=== PATIENT | female | born 1945 | race Caucasian/White ===

== ENCOUNTER 2018-09-20 21:07 | Emergency (ER) | payer OTHER ==
--- NOTE | 2018-09-20 22:13 | PDOC ---
History of Present Illness <Bri Murdock - Last Filed: 09/20/18 22:44> - General History Source: Patient, Assisted Records Exam Limitations: No Limitations - History of Present Illness Initial Comments: 09/20/18 22:11 Pt is a 73yo F with PMH of ESRD (HD MWF), Afib (on Eliquis), DM, Hypotension BIBA from [facility] for hypertension (169/114 after dialysis). Per pt, she usually feels lightheaded and weak after dialysis. She states her blood pressure was checked and was found to be 169/114. Pt is endorsing nausea. She denies chest pain, sob, abdominal pain, n/v/d, fevers, chills, headache, numbness/tingling. Pt states she feels fine at this time. PMD: Rosemarie PMH: see hpi Meds: see med rec Allergies: nkda <Janneth Sorto - Last Filed: 09/21/18 05:49> - General Stated Complaint: LOW BLOOD PRESSURE Time Seen by Provider: 09/20/18 21:46 Past History <Bri Murdock - Last Filed: 09/20/18 22:44> <aJnneth Sorto - Last Filed: 09/21/18 05:49> - Past Medical History Allergies/Adverse Reactions: Allergies Allergy/AdvReac Type Severity Reaction Status Date / Time No Known Allergies Allergy Unverified 09/20/18 22:44 Home Medications: Ambulatory Orders Acetaminophen 650 mg PO Q6H PRN 09/20/18 Albuterol 2.5/Ipratropium 0.5 [Duoneb -] 1 amp IH Q4H PRN 09/20/18 Ammonium Lactate Lotion [Lac-Hydrin 12] 1 applic TP BID 09/20/18 Anusol Hc Suppository - 25 mg MD Q4H PRN 09/20/18 Apixaban [Eliquis] 1 tab PO BID 09/20/18 Calcitriol [Calcitriol -] 3 cap PO TID 09/20/18 Collagenase Clostridium Hist. [Santyl] 1 applic TP DAILY 09/20/18 Docusate Sodium [Colace -] 3 tab PO HS 09/20/18 Ergocalciferol [Vitamin D2] 1 tab PO WEEKLY 09/20/18 Lidocaine/Prilocaine Cream [Emla -] 1 applic TP QID PRN 09/20/18 Melatonin 1 mg PO HS 09/20/18 Midodrine HCl 10 mg PO Q8H PRN 09/20/18 Multivitamin [Multiple Vitamins] 1 tab PO DAILY 09/20/18 Nystatin Ointment [Mycostatin Ointment -] 1 applic TP BID 09/20/18 Pantoprazole Sodium 1 tab PO DAILY 09/20/18 Sertraline HCl [Zoloft -] 1 tab PO DAILY 09/20/18 Sevelamer HCl [Renagel] 2 tab PO TID 09/20/18 Silver Sulfadiazine [Silvadene] 1 applic TP BID 09/20/18 Review of Systems - Review of Systems Constitutional: No: Chills, Fever HEENTM: No: Symptoms Reported Respiratory: No: Cough, Shortness of Breath Cardiac (ROS): No: Chest Pain, Lightheadedness, Palpitations, Syncope ABD/GI: Yes: Nausea. No: Constipated, Poor Fluid Intake, Vomiting, Abdominal cramping : No: Symptoms Reported Musculoskeletal: No: Symptoms Reported Integumentary: No: Symptoms Reported Neurological: No: Headache, Numbness, Tingling, Tremors, Weakness <Janneth Sorto - Last Filed: 09/21/18 05:49> *Physical Exam - Vital Signs Last Vital Signs Temp Pulse Resp BP Pulse Ox 98.7 F 65 18 81/47 L 98 09/20/18 21:07 09/20/18 21:07 09/20/18 21:07 09/20/18 21:07 09/20/18 21:07 <Bri Murdock - Last Filed: 09/20/18 22:44> - Physical Exam General Appearance: Yes: Nourished, Appropriately Dressed. No: Apparent Distress HEENT: positive: EOMI, JACQUELINE, Normal ENT Inspection Neck: positive: Trachea midline, Supple. negative: Lymphadenopathy (R), Lymphadenopathy (L) Respiratory/Chest: positive: Lungs Clear, Normal Breath Sounds. negative: Crackles, Rales, Rhonchi, Stridor, Wheezing Cardiovascular: positive: Regular Rhythm, Regular Rate, S1, S2. negative: Edema , JVD, Murmur Vascular Pulses: Carotid (R): 2+, Carotid (L): 2+, Dorsalis-Pedis (R): 2+, Doralis-Pedis (L): 2+ Gastrointestinal/Abdominal: positive: Normal Bowel Sounds, Soft. negative: Tender Musculoskeletal: negative: CVA Tenderness Extremity: positive: Normal Capillary Refill, Pelvis Stable, Other (fistula in R hip). negative: Swelling, Calf Tenderness Integumentary: positive: Normal Color, Dry, Warm, Other (R hand erythema without warmth or induration) Neurologic: positive: steam drier tender II-XII NML intact, Fully Oriented, Alert, Normal Mood/ Affect, Normal Response, Motor Strength 5/5 <Janneth Sorto - Last Filed: 09/21/18 05:49> Medical Decision Making - Medical Decision Making 09/20/18 23:15 Pt is a 73yo F with PMH of ESRD (HD MWF), Afib (on Eliquis), DM, Hypotension BIBA from [facility] for hypertension. Per pt, she usually feels lightheaded and weak after dialysis. She states her blood pressure was checked and was found to be 169/114. Pt is endorsing nausea. She denies chest pain, sob, abdominal pain, n/v/d, fevers, chills, headache, numbness/tingling. Pt states she feels fine at this time. Vitals: hypotension (baseline per pt), HR 65 PE: R hand erythema (chronic), R hip fistula L hand tremor, lungs cta. normal heart sounds Pt sent here for hypertension (bp 169/114 after dialysis) Pt normally 90s/60s. Pt refusing IV/blood work Pt is at baseline with bp, HR wnl (not tachycardic or trying to compensate). Does not need labs at this time. Will give midodrine and dc back to [facility]. Vitals stable. dc back to [facility] <Janneth Sorto - Last Filed: 09/21/18 05:49> *DC/Admit/Observation/Transfer <Bri Murdock - Last Filed: 09/20/18 22:44> <Janneth Sorto - Last Filed: 09/21/18 05:49> Diagnosis at time of Disposition: Hypotension Qualifiers: Hypotension type: unspecified hypotension type Qualified Code(s): I95.9 - Hypotension, unspecified - Discharge Dispostion Disposition: DETENTION FACILITY Condition at time of disposition: Good - Referrals Referrals: Johnny Houston [Primary Care Provider] - - Patient Instructions Printed Discharge Instructions: DI for Hypotension Additional Instructions: You were seen in the emergency room because your blood pressure was found to be high at the retirement. Your blood pressure is low here but it seems to be at your baseline. Please take your medications as directed. Come back to the emergency room if you pass out, feel lightheaded, have chest pain, have a hard time breathing or if any new concerning symptom develops. Thank you
--- NOTE | 2018-09-20 22:41 | PDOC ---
Attending Attestation - HPI HPI: 09/20/18 22:46 The patient is a 73 year old female with a past medical history of ESRD (MWF), diabetes, and afib (on coumadin) here today from [facility] for evaluation of hypertension. The patient reports that she usually feels weak and lightheaded after dialysis. She reports having her blood pressure checked and states that she was sent in because it was high (169/114). She reports feeling fine now except for some slight nausea. Patient also reports that she was hospitalized last week for hypotension. Patient denies headache, lightheadedness. Denies fever, chills. Denies chest pain, shortness of breath. Denies nausea, vomiting, diarrhea, abdominal pain. Allergies: NKA PCP: Johnny Houston <Constantin Wallace - Last Filed: 09/20/18 22:52> - Resident Resident Name: Janneth Sorto - ED Attending Attestation I have performed the following: I have examined & evaluated the patient, The case was reviewed & discussed with the resident, I agree w/resident's findings & plan, Exceptions are as noted - Physicial Exam PE: GENERAL: Awake, alert, and fully oriented, in no acute distress HEAD: No signs of trauma EYES: PERRLA, EOMI, sclera anicteric, conjunctiva clear ENT: Auricles normal inspection, hearing grossly normal, nares patent, oropharynx clear without exudates. Moist mucosa NECK: Normal ROM, supple, no lymphadenopathy, JVD, or masses LUNGS: Breath sounds equal, clear to auscultation bilaterally. No wheezes, and no crackles HEART: Regular rate and rhythm, normal S1 and S2, no murmurs, rubs or gallops ABDOMEN: Soft, nontender, normoactive bowel sounds. No guarding, no rebound. No masses EXTREMITIES: +Erythema to the R hand (chronic per patient). Remainder of extremities with normal range of motion, no edema. No clubbing or cyanosis. No cords, erythema, or tenderness NEUROLOGICAL: Cranial nerves II through XII grossly intact. Normal speech. Motor and sensation intact SKIN: Warm, Dry, normal turgor, no rashes or lesions noted. - Medical Decision Making Pt with history of hypotension, on midodrine at [facility]. She was sent to ED for high BP but is now low. She is asymptomatic and wishes to go home. We will give her evening dose of midodrine and DC. <Bri Murdock - Last Filed: 09/21/18 01:07> Attestations - Attestations 09/20/18 22:46 Documentation prepared by SARAH Yates, acting as biomedical engineering technician for Bri Murdock MD. <Constantin Wallace - Last Filed: 09/20/18 22:52>
[2018-09-20 22:43] VITALS: BMI 31.6
[2018-09-21] MEDS ORDERED: MIDODRINE HCL 5 MG TABLET PO ONE ×2 (00:45→23:57)
[2018-09-21 00:49] VITALS: TEMP 98
[2018-09-21 02:44] VITALS: BP 76/40; PULSE 69
--- NOTE | 2018-09-21 14:33 | EKG ---
Test Reason : Blood Pressure : / mmHG Vent. Rate : 060 BPM Atrial Rate : 067 BPM P-R Int : 000 ms QRS Dur : 134 ms QT Int : 464 ms P-R-T Axes : 000 164 -12 degrees QTc Int : 464 ms SUSPECT ARM LEAD REVERSAL, INTERPRETATION ASSUMES NO REVERSAL ATRIAL FIBRILLATION NON-SPECIFIC INTRA-VENTRICULAR CONDUCTION BLOCK LATERAL INFARCT , AGE UNDETERMINED INFERIOR INFARCT , AGE UNDETERMINED ABNORMAL ECG NO PREVIOUS ECGS AVAILABLE Confirmed by MD Macrina, Shankar ([id number]) on 09/21/2018 2:32:42 PM Referred By: Confirmed By:Shankar Schrader MD
== END 2018-09-21 02:44 ==
LOC: JER 21:07
DX: I95.9 Hypotension, unspecified (principal); I12.0 Hypertensive chronic kidney disease with stage 5 chronic kidney disease or end stage renal disease; E11.22 Type 2 diabetes mellitus with diabetic chronic kidney disease; N18.6 End stage renal disease; N17.8 Other acute kidney failure; Z99.2 Dependence on renal dialysis; I48.91 Unspecified atrial fibrillation; Z79.01 Long term (current) use of anticoagulants
CPT/HCPCS: 93005; 93010; 99283-25

== ENCOUNTER 2018-12-07 16:40 | Inpatient (IN) | payer OTHER | END 2019-01-05 19:14 | LOC: J4W 12-10 19:44 → JER 16:40 → J5S 12-12 19:46 → J4W 01-03 21:29 → JICU 12-08 13:22 → JERBED 21:28 ==

== ENCOUNTER 2019-01-19 11:26 | Inpatient (IN) | payer OTHER | END 2019-01-25 17:52 | LOC: JER 11:26 → JERBED 12:22 → J5S 18:09 ==

== ENCOUNTER 2019-01-26 20:04 | Inpatient (IN) | payer OTHER ==
[2019-01-26] MEDS ORDERED: NOREPINEPHRINE BITARTRATE 4 MG/4 ML ML IV ONE ×2 (20:27→20:33)
[2019-01-26] MEDS ORDERED: SODIUM CHLORIDE 0.9% 500 ML INFUS.BAG IV ONE (20:29)
[2019-01-26] MEDS: NOREPINEPHRINE BITARTRATE 4,000 MCG in DEXTROSE 5%-WATER - 496 ML IV SCH (21:30)
--- NOTE | 2019-01-26 21:36 | PDOC ---
History of Present Illness - General Chief Complaint: Altered Mental Status Stated Complaint: UNRESPONSIVE Time Seen by Provider: 01/26/19 20:32 - History of Present Illness Initial Comments: The pt is a 73F w/ a history of ESRD on iHD last today, a-fib, on digoxin, and hypothyroidism who presents from iHD. The pt was found to be unresponsive 5 min s/p iHD today. EMS was called, pt was intubated in field and started on norepinephrine. She was reportedly never without a pulse. Pt presented intubated and paralyzed w/o family present 01/26/19 22:20 Past History - Past Medical History Allergies/Adverse Reactions: Allergies Allergy/AdvReac Type Severity Reaction Status Date / Time No Known Allergies Allergy Unverified 01/19/19 11:43 Home Medications: Ambulatory Orders Acetaminophen 650 mg PO Q6H PRN 09/20/18 Ammonium Lactate Lotion [Lac-Hydrin 12] 1 applic TP BID 09/20/18 Anusol Hc Suppository - 25 mg [place] Q4H PRN 09/20/18 Apixaban [Eliquis] 1 tab PO BID 09/20/18 Calcitriol [Calcitriol -] 3 cap PO TID 09/20/18 Docusate Sodium [Colace -] 3 tab PO HS 09/20/18 Lidocaine/Prilocaine Cream [Lidocaine-Prilocaine Cream -] 1 applic TP QID PRN Melatonin 1 mg PO HS 09/20/18 Midodrine HCl 10 mg PO Q8H PRN 09/20/18 Nystatin Ointment [Mycostatin Ointment -] 1 applic TP BID 09/20/18 Sertraline HCl [Zoloft -] 1 tab PO DAILY 09/20/18 Silver Sulfadiazine [Silvadene] 1 applic TP BID 09/20/18 Digoxin 62.5 mcg PO DAILY 12/08/18 Levothyroxine [Synthroid -] 25 mcg PO DAILY 12/08/18 Vitamin B Comp W-C [Nephro-Evert -] 0.8 mg PO DAILY 12/08/18 Anemia: Yes Asthma: No Cancer: Yes (endometrial ca, s/p hysterectomy) Cardiac Disorders: Yes (A-fib) CVA: No COPD: No CHF: Yes DVT: Yes Dementia: No Diabetes: Yes GI Disorders: No (cdiff) Disorders: Yes (ESRD, HD, Rfemoral tessio) HTN: No Hypercholesterolemia: No Liver Disease: No Seizures: No Thyroid Disease: Yes (hypothyroidism) - Surgical History Abdominal Surgery: No Appendectomy: No Cardiac Surgery: No Cholecystectomy: No Lung Surgery: No Neurologic Surgery: No Orthopedic Surgery: Yes (spinal surgery december 2017,feb 2017 Lt arm fracture with tendon transfer) - Suicide/Smoking/Psychosocial Hx Smoking History: Unknown if ever smoked Have you smoked in the past 12 months: No Hx Alcohol Use: No Drug/Substance Use Hx: No Substance Use Type: None Hx Substance Use Treatment: No Review of Systems - Review of Systems Able to Perform ROS?: No (2/2 medical condition) *Physical Exam - Vital Signs Last Vital Signs Temp Pulse Resp BP Pulse Ox 99.1 F 120 H 12 116/101 H 90 L 01/26/19 20:15 01/26/19 20:15 01/26/19 20:15 01/26/19 20:15 01/26/19 20:15 - Physical Exam Comments: GENERAL: Intubated/sedated/paralyzed HEAD: No signs of trauma, normocephalic, atraumatic EYES: sclera anicteric, conjunctiva clear ENT: Moist mucosa, ETT in place LUNGS: b/l breath sounds present, with decreased breath sounds in b/l bases HEART: Irregularly irregular, S1 and S2 appreciated, no murmur appreciated ABDOMEN: Protuberant, soft, large ventral hernia, non-distended EXTREMITIES: No open wounds; Mild RLE erythma w/o warmth NEUROLOGICAL: Pt paralyzed on arrival w/ Sourav SKIN: Diaphoretic, cool 01/26/19 23:04 ED Treatment Course - ADDITIONAL ORDERS Additional order review: Laboratory Results 01/26/19 20:11 POC Glucometer 74 01/26/19 20:11 POC Glucometer 74 Medical Decision Making - Medical Decision Making The pt is a 73F w/ a history of ESRD on iHD, a-fib, on digoxin, and hypothyroidism who presents by EMS unresponsive from iHD. Pt was noted to be hypoxic, unresponsive, and bradycardic Pt was intubated in field and started on NE On arrival pt was placed on vent, ETT confirmed via end-tidal CO2 and CXR Labs drawn and sent Left femoral CVC placed NE at 5mcg started, later titrated down to 2.5mcg Versed gtt ordered for sedation CT head pending Pt w/ subsequent improvement in BP on NE HR improved from initial 130s to 100s after 2L NS and NE Labs pending, lab called multiple times over 2 hours w/o processing of labs New labs sent at 2300 Case discussed w/ ICU who states they will evaluate the pt after labs result Pt signed out to Dr. Sorto 01/26/19 22:59 *DC/Admit/Observation/Transfer Diagnosis at time of Disposition: ESRD on hemodialysis Hypotension Qualifiers: Hypotension type: unspecified hypotension type Qualified Code(s): I95.9 - Hypotension, unspecified Acute respiratory failure Qualifiers: Respiratory failure complication: hypoxia Qualified Code(s): J96.01 - Acute respiratory failure with hypoxia - Discharge Dispostion Condition at time of disposition: Critical Decision to Admit order: Yes - Referrals - Patient Instructions - Post Discharge Activity
--- NOTE | 2019-01-26 22:40 | PDOC ---
Documentation entered by Rafaela Lopez SCRIBE, acting as scribe for Roxy Baig DO. Roxy Baig DO: This documentation has been prepared by the John london Mackenzie, SCRIBE, under my direction and personally reviewed by me in its entirety. I confirm that the documentation accurately reflects all work, treatment, procedures, and medical decision making performed by me. Attending Attestation - Resident Resident Name: Wolfgang Lam - ED Attending Attestation I have performed the following: I have examined & evaluated the patient, The case was reviewed & discussed with the resident, I agree w/resident's findings & plan - HPI HPI: Patient is a 73 year old female recently discharged from [facility] yesterday who presents to the ED BIBA completely unresponsive immediately after receiving hemodialysis. Patient was unresponsive in the field, EMS intubated the patient as well as administered etomidate and rocuronium however the patient presented no change in clinical condition. 01/26/19 20:10 - Physicial Exam PE: Agree with resident exam. 01/26/19 20:15 - Critical Care Time Total Critical Care Time: 90 Critical Care Statement: The care of this patient involved high complexity decision making to prevent further life threatening deterioration of the patient 's condition and/or to evaluate & treat vital organ system(s) failure or risk of failure. - Medical Decision Making 01/26/19 22:36 73-year-old female intubated in the field for unresponsiveness after hemodialysis ET tube placement confirmed in the emergency department with cxr Left femoral central venous access established due to decreased blood pressure despite pressors ICU admit for further management
[2019-01-26] MEDS: MIDAZOLAM 100 MG in SODIUM CHLORIDE 100 ML IVPB SCH (22:45)
[2019-01-26] MEDS ORDERED: MIDAZOLAM IN 0.9 % SOD.CHLORID 1 MG/1 ML PLAST..BAG ONE (23:11)
[2019-01-26 23:14] LABS: ARTERIAL BLD GAS O2 SATURATION 98.8 % (95-98); ARTERIAL BLOOD GAS PCO2 52.9 mmHg (35-45); ARTERIAL BLOOD GAS PO2 142 mmHg (80-105); ARTERIAL BLOOD GAS pH 7.21 (7.35-7.45); CARBOXYHEMOGLOBIN 1.7 % (0-2)
[2019-01-26 23:17] LABS: ALLENS TEST POSITIVE
[2019-01-26 23:20] LABS: INR 1.59 (0.83-1.09); PROTHROMBIN TIME (PATIENT) 18.9 SEC (9.7-13.0)
[2019-01-26 23:23] LABS: ACTIVATED PTT 52.8 SECONDS (25.2-36.5)
[2019-01-26 23:31] LABS: ALBUMIN 3.3 g/dl (3.4-5.0); BILIRUBIN,TOTAL 0.6 mg/dL (0.2-1); BLOOD UREA NITROGEN 8.6 mg/dL (7-18); CALCIUM 8.6 mg/dL (8.5-10.1); CREATININE 1.4 mg/dL (0.55-1.3); TOT PROT 6.8 g/dl (6.4-8.2)
[2019-01-26 23:35] LABS: POTASSIUM 2.9 mmol/L (3.5-5.1)
[2019-01-26 23:37] LABS: ARTERIAL BLOOD GAS BASE EXCESS -6.1 meq/l (-2-2); ARTERIAL BLOOD GAS PCO2 48.8 mmHg (35-45); ARTERIAL BLOOD GAS PO2 284 mmHg (80-105); ARTERIAL BLOOD GAS pH 7.25 (7.35-7.45); CARBOXYHEMOGLOBIN 1.5 % (0-2)
[2019-01-26 23:38] LABS: ALLENS TEST POSITIVE
[2019-01-26 23:41] LABS: MAGNESIUM 1.9 mg/dL (1.8-2.4)
--- NOTE | 2019-01-27 00:17 | PDOC ---
*Physical Exam - Vital Signs Last Vital Signs Temp Pulse Resp BP Pulse Ox 99.1 F 103 H 12 114/80 90 L 01/26/19 20:15 01/26/19 21:30 01/26/19 23:30 01/26/19 21:30 01/26/19 20:15 ED Treatment Course - LABORATORY CBC & Chemistry Diagram: 01/26/19 23:00 01/26/19 23:00 - ADDITIONAL ORDERS Additional order review: Laboratory Results 01/26/19 01/26/19 01/26/19 23:30 23:00 23:00 PT with INR Cancelled INR Cancelled PTT (Actin FS) Anticoagulation Therapy No Result Required. No Result Required. Puncture Site Left brachial Left femoral ABG pH 7.25 L 7.21 L ABG pCO2 at Pt Temp 48.8 H 52.9 H ABG pO2 at Pt Temp 284 H 142 H ABG HCO3 20.6 L 20.5 L ABG O2 Sat (Measured) 100.0 H 98.8 H ABG O2 Content 15.4 14.3 L ABG Base Excess -6.1 L -7.0 L Pedro Test Positive Positive Carboxyhemoglobin 1.5 1.7 Methemoglobin 0.2 0.3 O2 Delivery Device No Result Required. No Result Required. Oxygen Flow Rate Yes 95 Vent Mode No Result Required. No Result Required. Vent Rate No Result Required. No Result Required. Mechanical Rate No Result Required. No Result Required. Pressure Support Vent No Result Required. No Result Required. Sodium Potassium Chloride Carbon Dioxide Anion Gap BUN Creatinine Est GFR (CKD-EPI)AfAm Est GFR (CKD-EPI)NonAf POC Glucometer Random Glucose Lactic Acid Calcium Magnesium Total Bilirubin AST ALT Alkaline Phosphatase Troponin I Total Protein Albumin Digoxin 01/26/19 01/26/19 01/26/19 23:00 23:00 23:00 PT with INR 18.90 H INR 1.59 H PTT (Actin FS) 52.8 H Anticoagulation Therapy Puncture Site ABG pH ABG pCO2 at Pt Temp ABG pO2 at Pt Temp ABG HCO3 ABG O2 Sat (Measured) ABG O2 Content ABG Base Excess Pedro Test Carboxyhemoglobin Methemoglobin O2 Delivery Device Oxygen Flow Rate Vent Mode Vent Rate Mechanical Rate Pressure Support Vent Sodium 139 Potassium 2.9 L* Chloride 103 Carbon Dioxide 25 Anion Gap 11 BUN 8.6 Creatinine 1.4 H Est GFR (CKD-EPI)AfAm 43.70 Est GFR (CKD-EPI)NonAf 37.71 POC Glucometer Random Glucose 102 Lactic Acid Calcium 8.6 Magnesium 1.9 Total Bilirubin 0.6 AST 46 H ALT 28 Alkaline Phosphatase 215 H Troponin I 0.18 H Total Protein 6.8 Albumin 3.3 L Digoxin 0.10 L 01/26/19 01/26/19 20:55 20:11 PT with INR INR PTT (Actin FS) Anticoagulation Therapy Puncture Site ABG pH ABG pCO2 at Pt Temp ABG pO2 at Pt Temp ABG HCO3 ABG O2 Sat (Measured) ABG O2 Content ABG Base Excess Pedro Test Carboxyhemoglobin Methemoglobin O2 Delivery Device Oxygen Flow Rate Vent Mode Vent Rate Mechanical Rate Pressure Support Vent Sodium Potassium Chloride Carbon Dioxide Anion Gap BUN Creatinine Est GFR (CKD-EPI)AfAm Est GFR (CKD-EPI)NonAf POC Glucometer 74 Random Glucose Lactic Acid 2.6 H* Calcium Magnesium Total Bilirubin AST ALT Alkaline Phosphatase Troponin I Total Protein Albumin Digoxin 01/26/19 20:11 POC Glucometer 74 - Medications Given in the ED: ED Medications Discontinued Medications Generic Name Dose Route Start Last Admin Trade Name Freq PRN Reason Stop Dose Admin Sodium Chloride 1,000 ml 01/26/19 20:29 01/26/19 21:29 Normal Saline - IV 01/26/19 20:30 1,000 ml ONCE ONE Administration Medical Decision Making - Medical Decision Making 01/27/19 07:30 signed out by day team. The pt is a 73F w/ a history of ESRD on iHD last today, a-fib, on digoxin, and hypothyroidism who presents from iHD. The pt was found to be unresponsive 5 min s/p iHD today. EMS was called, pt was intubated in field and started on norepinephrine. She was reportedly never without a pulse. pending labs and admission to ICU. ICU consulted and waiting for labs. labs were "lost". repeat samples had to be sent. no white count. K 2.9 Starting KCl drip. Cr baseline. admitted to ICU *DC/Admit/Observation/Transfer Diagnosis at time of Disposition: ESRD on hemodialysis Hypotension Qualifiers: Hypotension type: unspecified hypotension type Qualified Code(s): I95.9 - Hypotension, unspecified Acute respiratory failure Qualifiers: Respiratory failure complication: hypoxia Qualified Code(s): J96.01 - Acute respiratory failure with hypoxia - Discharge Dispostion Condition at time of disposition: Critical - Referrals - Patient Instructions - Post Discharge Activity
--- NOTE | 2019-01-27 00:24 | CONSULT ---
Consultation: REQUESTING PROVIDER: Dr. Lam CONSULT REQUEST: We have been asked to medically evaluate this patient for acute respiratory failure and hypotension. HISTORY OF PRESENT ILLNESS: Argelia Patel is a 73 year old female with a PMHx of ESRD, Orthostatic Hypotension, CHF, DM, hypothyroid, COPD, Afib (on Xarelto), DVTs, Pulmonary Edema and multiple admissions for PNA (including intubation) who was recently admitted for respiratory failure and discharged yesterday, presented to dialysis today in her baseline state of health, was alert and oriented, and received a full round of dialysis when she became unresponsive was noted to be bradycardic in the 50s and saturating in the 40s. The patient was intubated by EMS given etomidate and rocuronium and started on levophed in the field. It is unknown how much fluid was removed during dialysis or the K bath that was used. The patient was brought to the ED and had a femoral line placed to continue Levophed and was sedated with Versed. Patient unable to provide history. ED Course notable for: 1) Continued management of intubation and sedation 2) K 2.9, lactic acid 2.6, trops 0.18, BUN/CRE 8.6/1.4 3) ABG pH 7.21, CO2 52.9, O2 142 REVIEW OF SYSTEMS: Unable to provide history PHYSICAL EXAMINATION Vital Signs - 24 hr 01/26/19 01/26/19 01/26/19 20:05 20:15 21:30 Temperature 99.1 F Pulse Rate 120 H 103 H Respiratory 12 12 Rate Blood Pressure 116/101 H 114/80 O2 Sat by Pulse 90 L Oximetry (%) 01/26/19 23:30 Temperature Pulse Rate Respiratory 12 Rate Blood Pressure O2 Sat by Pulse Oximetry (%) GENERAL: Intubated and sedated HEAD: Normal with no signs of trauma. EYES: Pupils equal, round and sluggish reaction to light, sclera anicteric, conjunctiva clear. EARS, NOSE, THROAT: Orotracheal tube in place, no secretion present NECK: No JVD or masses noted LUNGS: Breath sounds equal, with mechanical breath sounds heard and coarse sounds throughout. HEART: Irregular rhythm, normal rate, S1 and S2 without murmur, rub. ABDOMEN: Soft, moderately distended, hypoactive bowel sounds, obese abdomen with unsymmetrical appearance UPPER EXTREMITIES: 1+ pulses, cool. No cyanosis. No clubbing. 3+ peripheral edema on the R, 1+ on the L. LOWER EXTREMITIES: 1+ pulses, warm, well-perfused. No calf tenderness. Trace peripheral edema. NEUROLOGICAL: Unable to assess SKIN: Cool, dry, diffuse ecchymoses noted Laboratory Results - last 24 hr 01/26/19 01/26/19 01/26/19 20:11 20:55 23:00 PT with INR INR PTT (Actin FS) Anticoagulation Therapy Puncture Site ABG pH ABG pCO2 at Pt Temp ABG pO2 at Pt Temp ABG HCO3 ABG O2 Sat (Measured) ABG O2 Content ABG Base Excess Pedro Test Carboxyhemoglobin Methemoglobin O2 Delivery Device Oxygen Flow Rate Vent Mode Vent Rate Mechanical Rate Pressure Support Vent Sodium Potassium Chloride Carbon Dioxide Anion Gap BUN Creatinine Est GFR (CKD-EPI)AfAm Est GFR (CKD-EPI)NonAf POC Glucometer 74 Random Glucose Lactic Acid 2.6 H* Calcium Magnesium Total Bilirubin AST ALT Alkaline Phosphatase Troponin I 0.18 H Total Protein Albumin Digoxin 0.10 L 01/26/19 01/26/19 01/26/19 23:00 23:00 23:00 PT with INR 18.90 H Cancelled INR 1.59 H Cancelled PTT (Actin FS) 52.8 H Anticoagulation Therapy Puncture Site ABG pH ABG pCO2 at Pt Temp ABG pO2 at Pt Temp ABG HCO3 ABG O2 Sat (Measured) ABG O2 Content ABG Base Excess Pedro Test Carboxyhemoglobin Methemoglobin O2 Delivery Device Oxygen Flow Rate Vent Mode Vent Rate Mechanical Rate Pressure Support Vent Sodium 139 Potassium 2.9 L* Chloride 103 Carbon Dioxide 25 Anion Gap 11 BUN 8.6 Creatinine 1.4 H Est GFR (CKD-EPI)AfAm 43.70 Est GFR (CKD-EPI)NonAf 37.71 POC Glucometer Random Glucose 102 Lactic Acid Calcium 8.6 Magnesium 1.9 Total Bilirubin 0.6 AST 46 H ALT 28 Alkaline Phosphatase 215 H Troponin I Total Protein 6.8 Albumin 3.3 L Digoxin 01/26/19 01/26/19 23:00 23:30 PT with INR INR PTT (Actin FS) Anticoagulation Therapy No Result Required. No Result Required. Puncture Site Left femoral Left brachial ABG pH 7.21 L 7.25 L ABG pCO2 at Pt Temp 52.9 H 48.8 H ABG pO2 at Pt Temp 142 H 284 H ABG HCO3 20.5 L 20.6 L ABG O2 Sat (Measured) 98.8 H 100.0 H ABG O2 Content 14.3 L 15.4 ABG Base Excess -7.0 L -6.1 L Pedro Test Positive Positive Carboxyhemoglobin 1.7 1.5 Methemoglobin 0.3 0.2 O2 Delivery Device No Result Required. No Result Required. Oxygen Flow Rate 95 Yes Vent Mode No Result Required. No Result Required. Vent Rate No Result Required. No Result Required. Mechanical Rate No Result Required. No Result Required. Pressure Support Vent No Result Required. No Result Required. Sodium Potassium Chloride Carbon Dioxide Anion Gap BUN Creatinine Est GFR (CKD-EPI)AfAm Est GFR (CKD-EPI)NonAf POC Glucometer Random Glucose Lactic Acid Calcium Magnesium Total Bilirubin AST ALT Alkaline Phosphatase Troponin I Total Protein Albumin Digoxin Active Medications Generic Name Dose Route Start Last Admin Trade Name Freq PRN Reason Stop Dose Admin Norepinephrine Bitartrate 4, 500 mls @ 37.5 mls/hr 01/26/19 20:30 01/26/19 21 :30 000 mcg/ Dextrose IV 5 mcg/min TITR NAHEED 37.5 mls/hr Administration Protocol 5 MCG/MIN Midazolam HCl 100 mg/ Sodium 100 mls @ 1 mls/hr 01/26/19 21:45 01/26/19 22:45 Chloride IVPB 1 mg/hr TITR NAHEED 1 mls/hr Administration Protocol 1 MG/HR Potassium Chloride 10 meq in 100 mls @ 100 mls/hr 01/26/19 23:45 Potassium Chloride 10 Meq Premix Ivpb - IVPB 01/27/19 02:44 Q60M [facility] ASSESSMENT/PLAN: Argelia Patel is a 73 year old female with a PMHx of ESRD, Orthostatic Hypotension, CHF, DM, hypothyroid, COPD, Afib (on Xarelto), DVTs, Pulmonary Edema and multiple admissions for PNA (including intubation) admitted to the ICU for unresponsiveness secondary to acute respiratory failure likely from hypercapneia and hypotension from fluid removal during dialysis. Acute Hypercapneic Respiratory Failure Hypotension ESRD CHF DM Hypothyroidism Atrial fibrillation NEUROLOGIC - intubated and sedated - on Versed - continue sedation while patient intubated and decrease when weaning trials begin - head CT with no acute intracranial pathology, possible mastoiditis and sinusitis CARDIOLOGY - received 2 L of NS in the ED - on Levophed, titrate down as tolerated - EKG showing afib with RVR with occasional PVCs, poor study - repeat EKG showing no acute changes from EKG done on 01/19/19, low voltage study , afib - troponins elevated at 0.18 trended up to 0.89, likely demand in setting of hypovolemia, will continue to trend - previous echo 12/08/18 showing normal EF, moderate to severe right ventricle dilation, increased right ventricular systolic pressure - monitor I+Os - digoxin level 0.10 - Dr. Wilson consulted, recs appreciated, case discussed and likely troponemia from demand, no start of AC, trend troponins, place NG tube to restart Xarelto for afib RESPIRATORY - intubated - vent settings 450, rate 16, O2 70, PEEP 5, continue to titrate down on O2 as tolerated by sats - original ABG showing pH 7.21, CO2 52.9, O2 142, respiratory acidosis and concurrent non anion gap metabolic acidosis in the setting of hypercapneia and renal failure - repeat ABG showing continuation of hypercapneia and acidosis, vent settings adjusted to increase rate and decrease CO2 - CXR showing congestion in L lung, improved from previous admission, no acute infiltrates RENAL - Dr. Molina consulted - unknown amount of fluid removed during dialysis - hypokalemia, will receive 3 KCl replacements in setting of ESRD, uncertain K bath during dialysis - BUN/CRE 8.6/1.4, much improved from previous admission, questionable overcorrection of baseline with excessive fluid removal during dialysis - conservative fluid replacement in the setting of ESRD GASTROINTESTINAL - no acute issues - place NG tube to continue PO medications GENITOURINARY - zhang in INFECTIOUS DISEASE - no WBC, afebrile - cannot exclude lung source or wound source - hx of cdiff, cautious approach to continuing antibiotics - blood cxs pending - UA and Ucx - 1gm vanco - zosyn 2.25gm - ID Consult ENDOCRINE - continue home Synthroid - BGM q6h - ISS HEMATOLOGY - no acute anemia, continue to monitor H/H - thrombocytopenia, continue to monitor F/E/N - no standing fluids, boluses as necessary with conservative fluid resuscitation in setting of ESRD - continue to monitor electrolytes and replete as necessary, hypokalemia noted and repleting - NPO while intubated LINES - L femoral central line placed 01/26 - R femoral Tesio catheter PROPHYLAXIS - home Xarelto CODE - full code DISPO - continue to monitor in ICU Thank you for this consultative opportunity. ANITA ORLANDO DO - PGY-1 INTERNAL MEDICINE Visit type - Emergency Visit Emergency Visit: Yes ED Registration Date: 01/26/19 Care time: The patient presented to the Emergency Department on the above date and was hospitalized for further evaluation of their emergent condition. - New Patient This patient is new to me today: Yes Date on this admission: 01/27/19 - Critical Care Critical Care patient: Yes Total Critical Care Time (in minutes): 35 Critical Care Statement: The care of this patient involved high complexity decision making to prevent further life threatening deterioration of the patient 's condition and/or to evaluate & treat vital organ system(s) failure or risk of failure.
[2019-01-27 00:35] LABS: BASO % 0.4 % (0-2.0); EOS % 0.5 % (0-4.5); HEMATOCRIT 37.4 % (32.4-45.2); HEMOGLOBIN 11.3 GM/dL (10.7-15.3); LYMPH % 14.6 % (8-40); MCH 30.4 pg (25.7-33.7); MCHC 30.1 g/dl (32.0-36.0); MEAN CELL VOLUME 101.1 fl (80-96); MEAN PLT VOLUME 9.2 fl (7.5-11.1); MONO % 5.7 % (3.8-10.2); NEUT % 78.8 % (42.8-82.8); PLATELET COUNT 87 K/MM3 (134-434); RDW 19.6 % (11.6-15.6); WHITE BLOOD COUNT 7.4 K/mm3 (4.0-10.0)
[2019-01-27] MEDS ORDERED: SODIUM CHLORIDE 1,000 ML IV STA (00:41)
[2019-01-27] MEDS ORDERED: ALBUTEROL SO4 0.083% IH SOL 2.5 MG/3 ML VIAL.NEB. NEB PRN (01:54)
[2019-01-27] MEDS ORDERED: LIDOCAINE 2.5%/PRILOCAINE 2.5% (5 Gram/TUBE) TP PRN (01:55)
[2019-01-27] MEDS ORDERED: ONDANSETRON 4 MG TABLET PO PRN (01:57)
[2019-01-27] MEDS: KCL 10 MEQ IVPB 10 MEQ/100 ML INFUS.BAG IVPB SCH ×3 (02:00→04:43)
[2019-01-27] MEDS ORDERED: KCL 10 MEQ IVPB 10 MEQ/100 ML INFUS.BAG IVPB ONE (02:09)
[2019-01-27] MEDS ORDERED: INSULIN SLIDING SCALE (NOVOLOG) 1 VIAL SQ SCH (02:30)
[2019-01-27] MEDS ORDERED: VANCOMYCIN 1 GM in D5W (PRE-DOCKED) 1,000 MG/250 ML IVPB ONE ×2 (02:30→04:00)
[2019-01-27 03:27] LABS: ALLENS TEST POSITIVE
[2019-01-27 03:33] LABS: ARTERIAL BLD GAS O2 SATURATION 99.8 % (95-98); ARTERIAL BLOOD GAS BASE EXCESS -6.4 meq/l (-2-2); ARTERIAL BLOOD GAS PCO2 51.9 mmHg (35-45); ARTERIAL BLOOD GAS PO2 261 mmHg (80-105); ARTERIAL BLOOD GAS pH 7.23 (7.35-7.45)
[2019-01-27] MEDS ORDERED: CALCITRIOL 0.25 MCG CAPSULE (FP) PO SCH (06:00)
[2019-01-27] MEDS: LEVOTHYROXINE NA 50 MCG TABLET (FP) PO SCH ×2 (06:23→14:07)
[2019-01-27 07:01] LABS: ALLENS TEST POSITIVE
--- NOTE | 2019-01-27 07:06 | PN ---
Physical Exam: SUBJECTIVE: Patient examined @ bedside, intubated (AC ventilator mode, 40% FiO2 ) w/Levophed drip for pressor support. OBJECTIVE: General: intubated, sedated HEENT: PEERLA, edematous neck CV: S1, S2, irregular rhythm, no M/R/G Respiratory: coarse breath sounds Abdomen: soft, (+) bowel sounds Extremity: B/L LE edema (R >L), B/L UE edema (R >L) 2+ DP pulses B/L; L femoral central line; R catheter HD access Integumentary: diffuse ecchymosis Vital Signs Period Temp Pulse Resp BP Sys/Jhaveri Pulse Ox Last 24 Hr 97.5 F-99.1 F 91-120 12-16 72-138/59-101 90-95 Laboratory Results - last 24 hr 01/26/19 01/26/19 01/26/19 20:11 20:55 23:00 WBC RBC Hgb Hct MCV MCH MCHC RDW Plt Count MPV Absolute Neuts (auto) Neutrophils % Lymphocytes % Monocytes % Eosinophils % Basophils % Nucleated RBC % PT with INR INR PTT (Actin FS) Anticoagulation Therapy Puncture Site ABG pH ABG pCO2 at Pt Temp ABG pO2 at Pt Temp ABG HCO3 ABG O2 Sat (Measured) ABG O2 Content ABG Base Excess Pedro Test Carboxyhemoglobin Methemoglobin O2 Delivery Device Oxygen Flow Rate Vent Mode Vent Rate Mechanical Rate PEEP Pressure Support Vent Sodium Potassium Chloride Carbon Dioxide Anion Gap BUN Creatinine Est GFR (CKD-EPI)AfAm Est GFR (CKD-EPI)NonAf POC Glucometer 74 Random Glucose Lactic Acid 2.6 H* Calcium Magnesium Total Bilirubin AST ALT Alkaline Phosphatase Creatine Kinase Troponin I 0.18 H Total Protein Albumin Digoxin 0.10 L 01/26/19 01/26/19 01/26/19 23:00 23:00 23:00 WBC 7.4 RBC 3.70 Hgb 11.3 Hct 37.4 D MCV 101.1 H MCH 30.4 MCHC 30.1 L RDW 19.6 H Plt Count 87 L MPV 9.2 Absolute Neuts (auto) 5.9 Neutrophils % 78.8 D Lymphocytes % 14.6 D Monocytes % 5.7 Eosinophils % 0.5 D Basophils % 0.4 Nucleated RBC % 4 H PT with INR 18.90 H INR 1.59 H PTT (Actin FS) 52.8 H Anticoagulation Therapy Puncture Site ABG pH ABG pCO2 at Pt Temp ABG pO2 at Pt Temp ABG HCO3 ABG O2 Sat (Measured) ABG O2 Content ABG Base Excess Pedro Test Carboxyhemoglobin Methemoglobin O2 Delivery Device Oxygen Flow Rate Vent Mode Vent Rate Mechanical Rate PEEP Pressure Support Vent Sodium 139 Potassium 2.9 L* Chloride 103 Carbon Dioxide 25 Anion Gap 11 BUN 8.6 Creatinine 1.4 H Est GFR (CKD-EPI)AfAm 43.70 Est GFR (CKD-EPI)NonAf 37.71 POC Glucometer Random Glucose 102 Lactic Acid Calcium 8.6 Magnesium 1.9 Total Bilirubin 0.6 AST 46 H ALT 28 Alkaline Phosphatase 215 H Creatine Kinase Troponin I Total Protein 6.8 Albumin 3.3 L Digoxin 01/26/19 01/26/19 01/26/19 23:00 23:00 23:30 WBC RBC Hgb Hct MCV MCH MCHC RDW Plt Count MPV Absolute Neuts (auto) Neutrophils % Lymphocytes % Monocytes % Eosinophils % Basophils % Nucleated RBC % PT with INR Cancelled INR Cancelled PTT (Actin FS) Anticoagulation Therapy No Result Required. No Result Required. Puncture Site Left femoral Left brachial ABG pH 7.21 L 7.25 L ABG pCO2 at Pt Temp 52.9 H 48.8 H ABG pO2 at Pt Temp 142 H 284 H ABG HCO3 20.5 L 20.6 L ABG O2 Sat (Measured) 98.8 H 100.0 H ABG O2 Content 14.3 L 15.4 ABG Base Excess -7.0 L -6.1 L Pedro Test Positive Positive Carboxyhemoglobin 1.7 1.5 Methemoglobin 0.3 0.2 O2 Delivery Device No Result Required. No Result Required. Oxygen Flow Rate 95 Yes Vent Mode No Result Required. No Result Required. Vent Rate No Result Required. No Result Required. Mechanical Rate No Result Required. No Result Required. PEEP Pressure Support Vent No Result Required. No Result Required. Sodium Potassium Chloride Carbon Dioxide Anion Gap BUN Creatinine Est GFR (CKD-EPI)AfAm Est GFR (CKD-EPI)NonAf POC Glucometer Random Glucose Lactic Acid Calcium Magnesium Total Bilirubin AST ALT Alkaline Phosphatase Creatine Kinase Troponin I Total Protein Albumin Digoxin 01/27/19 01/27/19 01/27/19 02:00 02:00 03:00 WBC RBC Hgb Hct MCV MCH MCHC RDW Plt Count MPV Absolute Neuts (auto) Neutrophils % Lymphocytes % Monocytes % Eosinophils % Basophils % Nucleated RBC % PT with INR INR PTT (Actin FS) Anticoagulation Therapy No Result Required. Puncture Site Left brachial ABG pH 7.23 L ABG pCO2 at Pt Temp 51.9 H ABG pO2 at Pt Temp 261 H ABG HCO3 20.8 L ABG O2 Sat (Measured) 99.8 H ABG O2 Content 15.1 ABG Base Excess -6.4 L Pedro Test Positive Carboxyhemoglobin Methemoglobin O2 Delivery Device Vent Oxygen Flow Rate 80% Vent Mode A/c Vent Rate 12 Mechanical Rate Yes PEEP 5.0 Pressure Support Vent 450 Sodium Potassium Chloride Carbon Dioxide Anion Gap BUN Creatinine Est GFR (CKD-EPI)AfAm Est GFR (CKD-EPI)NonAf POC Glucometer Random Glucose Lactic Acid 2.1 H Calcium Magnesium Total Bilirubin AST ALT Alkaline Phosphatase Creatine Kinase 76 Troponin I 0.89 H* Total Protein Albumin Digoxin 01/27/19 06:40 WBC RBC Hgb Hct MCV MCH MCHC RDW Plt Count MPV Absolute Neuts (auto) Neutrophils % Lymphocytes % Monocytes % Eosinophils % Basophils % Nucleated RBC % PT with INR INR PTT (Actin FS) Anticoagulation Therapy No Result Required. Puncture Site Left radial ABG pH ABG pCO2 at Pt Temp ABG pO2 at Pt Temp ABG HCO3 ABG O2 Sat (Measured) ABG O2 Content ABG Base Excess Pedro Test Positive Carboxyhemoglobin Methemoglobin O2 Delivery Device Vent Oxygen Flow Rate 60% Vent Mode A/c Vent Rate 16 Mechanical Rate Yes PEEP 5.0 Pressure Support Vent 450 Sodium Potassium Chloride Carbon Dioxide Anion Gap BUN Creatinine Est GFR (CKD-EPI)AfAm Est GFR (CKD-EPI)NonAf POC Glucometer Random Glucose Lactic Acid Calcium Magnesium Total Bilirubin AST ALT Alkaline Phosphatase Creatine Kinase Troponin I Total Protein Albumin Digoxin Active Medications Generic Name Dose Route Start Last Admin Trade Name Freq PRN Reason Stop Dose Admin Albuterol Sulfate 1 amp 01/27/19 01:54 Ventolin 0.083% Nebulizer Soln - NEB Q6H PRN SHORT OF BREATH/WHEEZING Chlorhexidine Gluconate 1 applic 01/27/19 22:00 Hibiclens For Decolonization - TP HS NAHEED Norepinephrine Bitartrate 4, 500 mls @ 37.5 mls/hr 01/26/19 20:30 01/26/19 21 :30 000 mcg/ Dextrose IV 5 mcg/min TITR NAHEED 37.5 mls/hr Administration Protocol 5 MCG/MIN Midazolam HCl 100 mg/ Sodium 100 mls @ 1 mls/hr 01/26/19 21:45 01/26/19 22:45 Chloride IVPB 1 mg/hr TITR NAHEED 1 mls/hr Administration Protocol 1 MG/HR Piperacillin Sod/Tazobactam 50 mls @ 100 mls/hr 01/27/19 03:00 Sod 2.25 gm/ Dextrose IVPB Q6H-IV NAHEED Protocol Piperacillin Sod/Tazobactam 50 mls @ 100 mls/hr 01/27/19 09:00 Sod 2.25 gm/ Dextrose IVPB 01/28/19 03:29 Q6H-IV [facility] Insulin Aspart 1 vial 01/27/19 02:30 01/27/19 04:58 Novolog Vial Sliding Scale - SQ Not Given Q6H [facility] Protocol Levothyroxine Sodium 50 mcg 01/27/19 07:00 01/27/19 06:23 Synthroid - PO Not Given DAILY@0700 [facility] Lidocaine/Prilocaine 1 applic 01/27/19 01:55 Emla - TP QID PRN HEMORRHOIDS Multivit/Ca Carb/B Cmplx/FA/Prenat 1 tablet 01/27/19 10:00 Nephro-Evert - PO DAILY [facility] Mupirocin 1 applic 01/27/19 10:00 Bactroban Ointment (For Decolonization) - NS 02/01/19 09:59 BID [facility] Ondansetron HCl 4 mg 01/27/19 01:57 Zofran - PO Q6H PRN NAUSEA AND/OR VOMITING Rivaroxaban 15 mg 01/27/19 18:00 Xarelto PO DAILY@1800 [facility] Sertraline HCl 50 mg 01/27/19 10:00 Zoloft - PO DAILY [facility] Silver Sulfadiazine 1 applic 01/27/19 10:00 Silvadene - TP BID [facility] ASSESSMENT/PLAN: Argelia Patel is a 73 year old female with a PMHx of ESRD, Orthostatic Hypotension, CHF, DM, hypothyroid, COPD, Afib (on Xarelto), DVTs, Pulmonary Edema and multiple admissions for PNA (including intubation) admitted to the ICU for unresponsiveness secondary to acute respiratory failure likely from hypercapneia and hypotension from fluid removal during dialysis. Acute Hypercapneic Respiratory Failure Hypotension ESRD CHF DM Hypothyroidism Atrial fibrillation NEUROLOGIC - intubated and sedated - on Versed - continue sedation while patient intubated and decrease when weaning trials begin - head CT with no acute intracranial pathology, possible mastoiditis and sinusitis CARDIOLOGY - received 2 L of NS in the ED - on Levophed, titrate down as tolerated - EKG showing afib with RVR with occasional PVCs, poor study - repeat EKG showing no acute changes from EKG done on 01/19/19, low voltage study , afib - troponins elevated at 0.18 trended up to 0.89 > 1.85 likely demand in setting of hypovolemia, will continue to trend - previous echo 12/08/18 showing normal EF, moderate to severe right ventricle dilation, increased right ventricular systolic pressure - monitor I+Os - digoxin level 0.10 - Cardiology consulted, appreciate recs RESPIRATORY - intubated - vent settings 450, rate 16, O2 70, PEEP 5, continue to titrate down on O2 as tolerated by sats - original ABG showing pH 7.21, CO2 52.9, O2 142, respiratory acidosis and concurrent non anion gap metabolic acidosis in the setting of hypercapneia and renal failure - repeat ABG showing continuation of hypercapneia and acidosis, vent settings adjusted to increase rate and decrease CO2 - CXR showing congestion in L lung, improved from previous admission, no acute infiltrates RENAL - Dr. Molina consulted - unknown amount of fluid removed during dialysis - hypokalemia, will receive 3 KCl replacements in setting of ESRD, uncertain K bath during dialysis - BUN/CRE 8.6/1.4, much improved from previous admission, questionable overcorrection of baseline with excessive fluid removal during dialysis - conservative fluid replacement in the setting of ESRD GASTROINTESTINAL - no acute issues - place NG tube to continue PO medications GENITOURINARY - zhang in INFECTIOUS DISEASE - no WBC, afebrile - cannot exclude lung source or wound source - hx of cdiff, cautious approach to continuing antibiotics - blood cxs pending - UA and Ucx - 1gm vanco - zosyn 2.25gm - ID Consult ENDOCRINE - continue home Synthroid - BGM q6h - ISS HEMATOLOGY - no acute anemia, continue to monitor H/H - thrombocytopenia, continue to monitor F/E/N - no standing fluids, boluses as necessary with conservative fluid resuscitation in setting of ESRD - continue to monitor electrolytes and replete as necessary, hypokalemia noted and repleting - NPO while intubated LINES - L femoral central line placed 01/26 - R femoral Tesio catheter PROPHYLAXIS - home Xarelto CODE - full code DISPO - continue to monitor in ICU - Family discussion on goals of care Visit type - Emergency Visit Emergency Visit: No - New Patient This patient is new to me today: Yes Date on this admission: 01/28/19 - Critical Care Critical Care patient: Yes Total Critical Care Time (in minutes): 30 Critical Care Statement: The care of this patient involved high complexity decision making to prevent further life threatening deterioration of the patient 's condition and/or to evaluate & treat vital organ system(s) failure or risk of failure. ATTENDING PHYSICIAN STATEMENT I saw and evaluated the patient. I reviewed the resident's note and discussed the case with the resident. I agree with the resident's findings and plan as documented. SUBJECTIVE: OBJECTIVE: ASSESSMENT AND PLAN:
[2019-01-27 07:09] LABS: BASO % 0.6 % (0-2.0); EOS % 0.6 % (0-4.5); HEMOGLOBIN 10.4 GM/dL (10.7-15.3); LYMPH % 18.2 % (8-40); MCH 30.5 pg (25.7-33.7); MCHC 30.6 g/dl (32.0-36.0); MEAN CELL VOLUME 99.7 fl (80-96); MONO % 7.8 % (3.8-10.2); NEUT % 72.8 % (42.8-82.8); PLATELET COUNT 76 K/MM3 (134-434); RBC 3.42 M/mm3 (3.60-5.2); RDW 20.6 % (11.6-15.6); WHITE BLOOD COUNT 5.3 K/mm3 (4.0-10.0)
[2019-01-27 07:10] LABS: ARTERIAL BLD GAS O2 SATURATION 99.9 % (95-98); ARTERIAL BLOOD GAS BASE EXCESS -4.7 meq/l (-2-2); ARTERIAL BLOOD GAS PCO2 38.7 mmHg (35-45); ARTERIAL BLOOD GAS PO2 205 mmHg (80-105); ARTERIAL BLOOD GAS pH 7.34 (7.35-7.45)
[2019-01-27 07:26] LABS: INR 1.76 (0.83-1.09); PROTHROMBIN TIME (PATIENT) 20.9 SEC (9.7-13.0)
[2019-01-27 07:27] LABS: ACTIVATED PTT 33.3 SECONDS (25.2-36.5)
[2019-01-27 07:30] LABS: ALBUMIN 2.9 g/dl (3.4-5.0); BILIRUBIN,TOTAL 0.5 mg/dL (0.2-1); CALCIUM 8.2 mg/dL (8.5-10.1); CREATININE 1.5 mg/dL (0.55-1.3); MAGNESIUM 1.8 mg/dL (1.8-2.4); PHOSPHOROUS 2.3 mg/dL (2.5-4.9); TOT PROT 6.1 g/dl (6.4-8.2)
[2019-01-27] MEDS ORDERED: NOREPINEPHRINE BITARTRATE 4 MG/4 ML ML IV ONE (07:58)
[2019-01-27] MEDS ORDERED: PIPERACILLIN/TAZOBACTAM 2.25 GM VIAL IVPB ONE ×4 (07:59→22:58)
[2019-01-27] MEDS ORDERED: DEXTROSE 5%-WATER - 50 ML IVPB ONE ×4 (07:59→22:58)
--- NOTE | 2019-01-27 09:05 | PN ---
Progress Note, Physician Chief Complaint: Well known to our service. Recently discharged now readmitted with respiratory failure, unresponsive episode at HD. PMH is sig for AF on AC, Hx of DVT/PE , ESRD became unresponsive and hypotensive at HD and was intubated in the field and started on Levophed. She is now in ICU, remains mechanically ventilated on AC 40% FIO2 PEEP 5. Sedated on Versed. Hx cannot be obtained from patient and was reviewed in chart. History of Present Illness: Argelia Patel is a 73 year old female with a PMHx of ESRD, Orthostatic Hypotension, CHF, DM, hypothyroid, COPD, Afib (on Xarelto), DVTs, Pulmonary Edema and multiple admissions for PNA (including intubation) who was recently admitted for respiratory failure and discharged yesterday, presented to dialysis today in her baseline state of health, was alert and oriented, and received a full round of dialysis when she became unresponsive was noted to be bradycardic in the 50s and saturating in the 40s. The patient was intubated by EMS given etomidate and rocuronium and started on levophed in the field. It is unknown how much fluid was removed during dialysis or the K bath that was used. The patient was brought to the ED and had a femoral line placed to continue Levophed and was sedated with Versed. Patient unable to provide history. - Current Medication List Current Medications: Active Medications Albuterol Sulfate (Ventolin 0.083% Nebulizer Soln -) 1 amp NEB Q6H PRN PRN Reason: SHORT OF BREATH/WHEEZING Chlorhexidine Gluconate (Hibiclens For Decolonization -) 1 applic TP HS [facility] Norepinephrine Bitartrate 4, (000 mcg/ Dextrose) 500 mls @ 37.5 mls/hr IV TITR [facility]; Protocol Last Titration: 01/27/19 08:00 Dose: 7 mcg/min, 52.5 mls/hr Midazolam HCl 100 mg/ Sodium (Chloride) 100 mls @ 1 mls/hr IVPB TITR [facility]; Protocol Last Admin: 01/26/19 22:45 Dose: 1 mg/hr, 1 mls/hr Piperacillin Sod/Tazobactam (Sod 2.25 gm/ Dextrose) 50 mls @ 100 mls/hr IVPB Q6H-IV [facility]; Protocol Piperacillin Sod/Tazobactam (Sod 2.25 gm/ Dextrose) 50 mls @ 100 mls/hr IVPB Q6H-IV [facility] Stop: 01/28/19 03:29 Insulin Aspart (Novolog Vial Sliding Scale -) 1 vial SQ Q6HPO [facility]; Protocol Levothyroxine Sodium (Synthroid -) 50 mcg PO DAILY@0700 [facility] Last Admin: 01/27/19 06:23 Dose: Not Given Lidocaine/Prilocaine (Emla -) 1 applic TP QID PRN PRN Reason: HEMORRHOIDS Multivit/Ca Carb/B Cmplx/FA/Prenat (Nephro-Evert -) 1 tablet PO DAILY [facility] Mupirocin (Bactroban Ointment (For Decolonization) -) 1 applic NS BID [facility] Stop: 02/01/19 09:59 Ondansetron HCl (Zofran -) 4 mg PO Q6H PRN PRN Reason: NAUSEA AND/OR VOMITING Rivaroxaban (Xarelto) 15 mg PO DAILY@1800 [facility] Sertraline HCl (Zoloft -) 50 mg PO DAILY [facility] Silver Sulfadiazine (Silvadene -) 1 applic TP BID [facility] - Objective Vital Signs: Vital Signs Temperature 97.5 F L 01/27/19 05:38 Pulse Rate 90 01/27/19 08:00 Respiratory Rate 16 01/27/19 07:47 Blood Pressure 107/66 01/27/19 08:00 O2 Sat by Pulse Oximetry (%) 100 01/27/19 07:47 Constitutional: Yes: Pallor, Other (intubated and sedated in ICU, mechanically venitl) Respiratory: Yes: Other (= breath sounds b/l) Gastrointestinal: Yes: Soft, Abdomen, Obese Edema: Yes Edema: LLE: 1+, RLE: 1+ Labs: CBC, BMP 01/27/19 05:45 01/27/19 05:45 INR, PTT INR 1.76 (0.83-1.09) H 01/27/19 05:45 Microbiology Laboratory Tests 12/11/18 12/11/18 12/11/18 07:00 07:00 10:00 WBC 3.7 L Hgb 10.3 L Plt Count 104 L ABG pH ABG pCO2 at Pt Temp ABG pO2 at Pt Temp Oxygen Flow Rate Sodium Potassium 3.2 L Creatinine 2.5 H 1.4 H Calcium Phosphorus Magnesium 2.3 Total Bilirubin AST ALT Creatine Kinase Troponin I Digoxin 01/26/19 01/26/19 01/27/19 23:00 23:00 02:00 WBC Hgb Plt Count ABG pH 7.21 L ABG pCO2 at Pt Temp 52.9 H ABG pO2 at Pt Temp 142 H Oxygen Flow Rate 95 Sodium Potassium Creatinine Calcium Phosphorus Magnesium Total Bilirubin AST ALT Creatine Kinase 76 Troponin I 0.18 H 0.89 H* Digoxin 0.10 L 01/27/19 01/27/19 01/27/19 05:45 05:45 06:40 WBC 5.3 Hgb 10.4 L Plt Count 76 L ABG pH 7.34 L ABG pCO2 at Pt Temp 38.7 ABG pO2 at Pt Temp 205 H Oxygen Flow Rate 60% Sodium 137 Potassium 3.0 L Creatinine 1.5 H Calcium 8.2 L Phosphorus 2.3 L Magnesium 1.8 Total Bilirubin 0.5 AST 41 H ALT 24 Creatine Kinase Troponin I Digoxin - ....Imaging X-ray: Image Reviewed (Possible RLL infiltrate) EKG: Image Reviewed (TELE: AF, controlled, PVCs) Assessment/Plan IMP: 1. Acute respiratory failure, possible RLL PNA, sepsis, septic shock on Levophed 2. ESRD on HD 3. H/o DVT /PE on AC REC: 1. Vent support 2. Pressors to maintain MAP 60mmHg 3. HD as per renal 4. Cultures, broad spectrum abx as per Critical Care team 5. Cont AC, may need NGT for Xarelto. Will follow.
[2019-01-27] MEDS: MUPIROCIN 2% TOPICAL OINTMENT FOR DECOLONIZATION NS SCH ×2 (09:32→22:51)
[2019-01-27] MEDS: PIPERACILLIN/TAZOB 2.25 GM 2.25 GM in DEXTROSE 5%-WATER - 50 ML IVPB SCH ×4 (09:32→21:00)
--- NOTE | 2019-01-27 09:51 | PN ---
Progress Note (short form) - Note Progress Note: ID consult dictated imp/reccd 73 yo female with history of ESRD on HD, DVT, orthostatic hypotension, respiratory failure, pneumonia multiple recent admissions from the OR most recently 12/07 to 01/05 and 01/19 to she went to HD - apparently alert there became unresponsive 5 minutes with hypotension after HD was completed now intubated and on levophed given vancomycin and zosyn in ED acute respiratory failure- no clear pneumonia on cxray hypotension-/sepsis-?volume status due to HD, vs infection esrd/hd history of DVT not clear she has any infection at this time but given hypotension and pressors would continue vanco by level and zosyn for now f/u cultures cover for pneumonia and possible line infection overall prognosis is poor ICU team to d/w terri overall prognosis Problem List - Problems (1) Acute respiratory failure Code(s): J96.00 - ACUTE RESPIRATORY FAILURE, UNSP W HYPOXIA OR HYPERCAPNIA Qualifiers: Respiratory failure complication: hypoxia Qualified Code(s): J96.01 - Acute respiratory failure with hypoxia (2) Hypotension Code(s): I95.9 - HYPOTENSION, UNSPECIFIED Qualifiers: Hypotension type: unspecified hypotension type Qualified Code(s): I95.9 - Hypotension, unspecified (3) ESRD on hemodialysis Code(s): N18.6 - END STAGE RENAL DISEASE; Z99.2 - DEPENDENCE ON RENAL DIALYSIS
[2019-01-27] MEDS: SILVER SULFADIAZINE 1% TOP CREAM 400 GM JAR TP SCH ×2 (10:35→22:52)
--- NOTE | 2019-01-27 10:42 | HP ---
Admitting History and Physical - Primary Care Physician PCP: Marlene Camargo - Admission Chief Complaint: UNRESPONSIVE AND INTUBATED AT HD History of Present Illness: The pt is a 73F w/ a history of ESRD on HD last yesterday, a-fib, on digoxin, and hypothyroidism who presents from HD. The pt was found to be unresponsive 5 min s/p HD yesterday. EMS was called, pt was intubated in field and started on norepinephrine. She was reportedly never without a pulse. Pt presented intubated and paralyzed w/o family present daughter Lesly states her mom wants everything done to be kept alive. History Source: Family Member, Medical Record - Past Medical History Cardiovascular: Yes: AFIB, CHF, Deep Vein Thrombosis Pulmonary: Yes: Bronchitis, Pneumonia, Previously Intubated, Pulmonary Embolus, Sleep Apnea. No: Asthma, Cancer, COPD, Pulmonary Fibrosis Gastrointestinal: Yes: GERD Renal/: Yes: Hemodialysis Endocrine: Yes: Diabetes Mellitus - Smoking History Smoking history: Unknown if ever smoked Have you smoked in the past 12 months: No - Alcohol/Substance Use Hx Alcohol Use: No - Social History ADL: Support Services History of Recent Travel: No Home Medications - Allergies Allergies/Adverse Reactions: Allergies Allergy/AdvReac Type Severity Reaction Status Date / Time No Known Allergies Allergy Unverified 01/19/19 11:43 - Home Medications Home Medications: Ambulatory Orders Acetaminophen 650 mg PO Q6H PRN 09/20/18 Ammonium Lactate Lotion [Lac-Hydrin 12] 1 applic TP BID 09/20/18 Anusol Hc Suppository - 25 mg OR Q4H PRN 09/20/18 Apixaban [Eliquis] 1 tab PO BID 09/20/18 Calcitriol [Calcitriol -] 3 cap PO TID 09/20/18 Docusate Sodium [Colace -] 3 tab PO HS 09/20/18 Lidocaine/Prilocaine Cream [Lidocaine-Prilocaine Cream -] 1 applic TP QID PRN Melatonin 1 mg PO HS 09/20/18 Midodrine HCl 10 mg PO Q8H PRN 09/20/18 Nystatin Ointment [Mycostatin Ointment -] 1 applic TP BID 09/20/18 Sertraline HCl [Zoloft -] 1 tab PO DAILY 09/20/18 Silver Sulfadiazine [Silvadene] 1 applic TP BID 09/20/18 Digoxin 62.5 mcg PO DAILY 12/08/18 Levothyroxine [Synthroid -] 25 mcg PO DAILY 12/08/18 Vitamin B Comp W-C [Nephro-Evert -] 0.8 mg PO DAILY 12/08/18 Review of Systems Findings/Remarks: unresponsive and intubated - Review of Systems Constitutional: reports: Other Cardiovascular: reports: Shortness of Breath Respiratory: reports: SOB Gastrointestinal: reports: Other Neurological: reports: Other (unresponsive) Physical Examination Vital Signs: Vital Signs Temperature 97.7 F 01/27/19 09:00 Pulse Rate 89 01/27/19 10:34 Respiratory Rate 16 01/27/19 07:47 Blood Pressure 102/62 01/27/19 10:34 O2 Sat by Pulse Oximetry (%) 100 01/27/19 07:47 Constitutional: Yes: Moderate Distress Cardiovascular: Yes: Regular Rate and Rhythm Respiratory: Yes: Diminished, Mechanically Ventilated Gastrointestinal: Yes: Soft, Hernia Renal/: Yes: Joshi Present Musculoskeletal: Yes: Muscle Weakness Edema: No Integumentary: Yes: Rash Neurological: Yes: Unresponsive Psychiatric: Yes: Other Labs: CBC, BMP 01/27/19 05:45 01/27/19 05:45 Imaging - Results Chest X-ray: Report Reviewed Problem List - Problems (1) Acute respiratory failure Code(s): J96.00 - ACUTE RESPIRATORY FAILURE, UNSP W HYPOXIA OR HYPERCAPNIA Qualifiers: Respiratory failure complication: hypoxia Qualified Code(s): J96.01 - Acute respiratory failure with hypoxia (2) ESRD on hemodialysis Code(s): N18.6 - END STAGE RENAL DISEASE; Z99.2 - DEPENDENCE ON RENAL DIALYSIS (3) Hypotension Code(s): I95.9 - HYPOTENSION, UNSPECIFIED Qualifiers: Hypotension type: unspecified hypotension type Qualified Code(s): I95.9 - Hypotension, unspecified (4) Acute exacerbation of congestive heart failure Code(s): I50.9 - HEART FAILURE, UNSPECIFIED (5) Acute on chronic respiratory failure with hypoxia and hypercapnia Code(s): J96.21 - ACUTE AND CHRONIC RESPIRATORY FAILURE WITH HYPOXIA; J96.22 - ACUTE AND CHRONIC RESPIRATORY FAILURE WITH HYPERCAPNIA (6) Afib Code(s): I48.91 - UNSPECIFIED ATRIAL FIBRILLATION (7) Functional quadriplegia Code(s): R53.2 - FUNCTIONAL QUADRIPLEGIA (8) H/O deep venous thrombosis Code(s): Z86.718 - PERSONAL HISTORY OF OTHER VENOUS THROMBOSIS AND EMBOLISM (9) Hypothyroid Code(s): E03.9 - HYPOTHYROIDISM, UNSPECIFIED Assessment/Plan bp support wean off as tolerated from vent d/w family bedside full code. check cultures check labs id and pulmonary consults appreciated dvt prophylaxis npo for now access needed will discuss with surgery
--- NOTE | 2019-01-27 11:00 | EKG ---
Test Reason : Blood Pressure : / mmHG Vent. Rate : 099 BPM Atrial Rate : 053 BPM P-R Int : 000 ms QRS Dur : 068 ms QT Int : 238 ms P-R-T Axes : 000 017 145 degrees QTc Int : 305 ms ATRIAL FIBRILLATION Ventricular premature contractions LOW VOLTAGE QRS Nonspecific ST changes Confirmed by BARTOLO KRUSE MD ([id number]) on 01/27/2019 10:59:46 AM Referred By: Confirmed By:BARTOLO KRUSE MD
--- NOTE | 2019-01-27 11:04 | EKG ---
Test Reason : Blood Pressure : / mmHG Vent. Rate : 136 BPM Atrial Rate : 241 BPM P-R Int : 000 ms QRS Dur : 066 ms QT Int : 268 ms P-R-T Axes : 000 154 032 degrees QTc Int : 403 ms SUSPECT ARM LEAD REVERSAL, INTERPRETATION ASSUMES NO REVERSAL ATRIAL FIBRILLATION WITH RAPID VENTRICULAR RESPONSE WITH PREMATURE VENTRICULAR OR ABERRANTLY CONDUCTED COMPLEXES LOW VOLTAGE QRS ANTEROLATERAL INFARCT (CITED ON OR BEFORE 20-SEP-2018) ABNORMAL ECG WHEN COMPARED WITH ECG OF 19-JAN-2019 11:28, VENT. RATE HAS INCREASED BY 64 BPM QUESTIONABLE CHANGE IN INITIAL FORCES OF ANTERIOR LEADS Confirmed by BARTOLO KRUSE MD ([id number]) on 01/27/2019 11:03:55 AM Referred By: Confirmed By:BARTOLO KRUSE MD
--- NOTE | 2019-01-27 11:24 | CONS ---
DATE OF CONSULTATION: DATE OF DICTATION: 01/27/2019 REQUESTING PHYSICIAN: Marlene Camargo MD HISTORY OF PRESENT ILLNESS: This is a 73-year-old woman known to me from a prior admission in December 07, when she was here from December 07 to January 05. She was then readmitted with increasing shortness of breath and volume overload January 19 to January 25. During the first admission, she developed respiratory failure requiring intubation with left lung atelectasis, possible pneumonia. She was treated with a course of Zosyn. She also had diarrhea and was treated for possible C. difficile. She was antigen positive and toxin negative. She ultimately was extubated and sent to the [facility] January 05. She was readmitted January 19 to January 25. During that admission, she was treated for worsening shortness of breath. She was treated for heart failure. She had positive troponins, felt to be demand ischemia, and was discharged back to the [facility]. She did not require any antibiotics. She is now readmitted. She apparently was awake and alert at dialysis. Then, 5 minutes after dialysis ended, she was unresponsive. She was hypotensive. EMS was called, and she was brought to the ER. On arrival, she was intubated in the field, as well. She had no fever, but she had cultures sent and was given vancomycin and Zosyn. I am asked to see her for possible sepsis. She is minimally arousable. She is on Levophed in the ICU at this time. All the history is from the chart. PAST MEDICAL HISTORY: Notable for history of end-stage renal disease (she is on dialysis). She has a history of CHF. She has apparently very poor vasculature and they cannot place any upper extremity venous access for dialysis; she has a femoral dialysis catheter. She has a history of DVT, CO2 retention, anemia, atrial fibrillation, diabetes, hypothyroidism, and depression, as well as orthostatic hypotension. ALLERGIES: She has no known drug allergies. MEDICATIONS: As an outpatient include Silvadene, Zoloft, midodrine, melatonin, Synthroid, Colace, digoxin, Eliquis, Lac-Hydrin. REVIEW OF SYSTEMS: Not obtainable. PHYSICAL EXAMINATION Vital signs: She is afebrile, temperature is 97.7; pulse of 81, blood pressure 112/68, she is on Levophed 40% FiO2. HEENT: She is normocephalic. She is starting to open her eyes. She is orally intubated. Neck: Very full. Extremities: Both her arms are swollen, her fingers are dusky. Her extremities are cool. She has a femoral dialysis catheter on her right groin and IV access, another femoral catheter on the left side. Both her feet are dusky and cool. Heart: Regular rate and rhythm. Lungs: Have diminished breath sounds at the bases. Abdomen: Soft. She has a soft reducible ventral hernia. LABORATORY DATA: Her white count is 5.3, hemoglobin 10.4, platelets are 76, 000. Her BUN is 11, creatinine 1.5. LFTs are notable for an alkaline phosphatase of 176. Troponins are 1.8. Prior cultures from her last admissions were all negative. Chest x-ray is notable for a lower thoracic spinal fusion. There is a large heart. There is fluid in the horizontal fissure that is unchanged from prior study. She had a head CT done as well on admission to the ER which showed no evidence of any acute disease. SUMMARY: 1. This is an elderly woman with multiple recent admissions with multiple medical problems including end-stage renal disease, difficult access, history of DVT, now admitted on Levophed with a known history of orthostatic hypotension on midodrine. It is not clear if she has infection at this time as this event happened acutely post dialysis and may all just be due to volume, but at this time given that she is relatively hypotensive and on pressors, would continue vancomycin, and Zosyn for now and follow up her cultures. She has no history of any [id number] organisms. Chest x-ray is not convincing for pneumonia. I suspect a lot of her current symptoms may be related to her volume status. Overall prognosis is extremely poor given her overall medical condition. The ICU is planning to discuss with her daughter. 2. End-stage renal disease, on dialysis. 3. Limited venous access due to multiple deep venous thrombosis and respiratory failure. MURPHY DAILEY M.D. [id number] MTDD
--- NOTE | 2019-01-27 11:36 | PN ---
Teaching Attending Note Name of Resident: Lalita Charles ATTENDING PHYSICIAN STATEMENT I saw and evaluated the patient. I reviewed the resident's note and discussed the case with the resident. I agree with the resident's findings and plan as documented. SUBJECTIVE: Patient seen and examined in the ICU. Remains intubated and sedated. AC Mode of vent, 40% FiO2. 6 mcq NE for hemodynamic support. Intake & Output 01/24/19 01/25/19 01/26/19 01/27/19 23:59 23:59 23:59 23:59 Intake Total 236 Output Total 0 0 Balance 0 236 Weight 270 lb 184 lb 14.4 oz Last Vital Signs Temp Pulse Resp BP Pulse Ox 97.7 F 89 16 102/62 100 01/27/19 09:00 01/27/19 10:34 01/27/19 10:00 01/27/19 10:34 01/27/19 07:47 Active Medications Albuterol Sulfate (Ventolin 0.083% Nebulizer Soln -) 1 amp NEB Q6H PRN PRN Reason: SHORT OF BREATH/WHEEZING Chlorhexidine Gluconate (Hibiclens For Decolonization -) 1 applic TP HS [facility] Norepinephrine Bitartrate 4, (000 mcg/ Dextrose) 500 mls @ 37.5 mls/hr IV TITR [facility]; Protocol Last Titration: 01/27/19 10:34 Dose: 5 mcg/min, 37.5 mls/hr Midazolam HCl 100 mg/ Sodium (Chloride) 100 mls @ 1 mls/hr IVPB TITR [facility]; Protocol Last Titration: 01/27/19 07:00 Dose: 3 mg/hr, 3 mls/hr Piperacillin Sod/Tazobactam (Sod 2.25 gm/ Dextrose) 50 mls @ 100 mls/hr IVPB Q6H-IV [facility]; Protocol Piperacillin Sod/Tazobactam (Sod 2.25 gm/ Dextrose) 50 mls @ 100 mls/hr IVPB Q6H-IV [facility] Stop: 01/28/19 03:29 Last Admin: 01/27/19 09:32 Dose: 100 mls/hr Insulin Aspart (Novolog Vial Sliding Scale -) 1 vial SQ Q6HPO [facility]; Protocol Levothyroxine Sodium (Synthroid -) 50 mcg PO DAILY@0700 [facility] Last Admin: 01/27/19 06:23 Dose: Not Given Lidocaine/Prilocaine (Emla -) 1 applic TP QID PRN PRN Reason: HEMORRHOIDS Multivit/Ca Carb/B Cmplx/FA/Prenat (Nephro-Evert -) 1 tablet PO DAILY [facility] Mupirocin (Bactroban Ointment (For Decolonization) -) 1 applic NS BID [facility] Stop: 02/01/19 09:59 Last Admin: 01/27/19 09:32 Dose: 1 applic Ondansetron HCl (Zofran -) 4 mg PO Q6H PRN PRN Reason: NAUSEA AND/OR VOMITING Rivaroxaban (Xarelto) 15 mg PO DAILY@1800 [facility] Sertraline HCl (Zoloft -) 50 mg PO DAILY [facility] Silver Sulfadiazine (Silvadene -) 1 applic TP BID [facility] Last Admin: 01/27/19 10:35 Dose: 1 applic GENERAL: Intubated and sedated HEAD: Normal with no signs of trauma. EYES: Pupils equal, round and sluggish reaction to light, sclera anicteric, conjunctiva clear. EARS, NOSE, THROAT: Orotracheal tube in place, no secretion present NECK: (+) significant increase in edema due to central stenosis LUNGS: Vented, bilateral rhonchi HEART: Irregular rhythm, normal rate, S1 and S2 without murmur, rub. ABDOMEN: Soft, obese, hypoactive bowel sounds, obese abdomen with unsymmetrical appearance UPPER EXTREMITIES: 1+ pulses, cool. No cyanosis. No clubbing. 3+ peripheral edema on the R, 1+ on the L. LOWER EXTREMITIES: 1+ pulses, warm, well-perfused. No calf tenderness. Trace peripheral edema. NEUROLOGICAL: Sedated SKIN: Cool, dry, diffuse ecchymoses noted ASSESSMENT/PLAN: Acute Respiratory Failure ESRD on HD Orthostatic Hypotension CHF DM Hypothyroidism COPD Afib on Xarelto History of DVTs Pulmonary Edema Multiple admissions for PNA with previous intubation S/P episode of unresponsiveness Wean pressors AC mode of vent Will need diuresis and to improve pulmonary vascular congestion prior to extubation NGT Start enteral feeds ID evaluation AC to be restarted Follow cultures Due to central stenosis: will leave access in the femoral vein Requires ICU monitoring Dr Wiley Critical care time spent in reviewing chart, evaluating patient and formulating plan - 36 minutes.
[2019-01-27] MEDS: INSULIN SLIDING SCALE (NOVOLOG) 1 VIAL SQ SCH ×2 (13:42→17:54)
[2019-01-27] MEDS ORDERED: PT OWN MED DRAWER 7, Y5N ONE (13:58)
[2019-01-27] MEDS: VITAMIN B COMP W-C 1 EA TABLET PO SCH (14:06)
[2019-01-27] MEDS: SERTRALINE HCL 50 MG TABLET (FP) PO SCH (14:07)
[2019-01-27] MEDS: MIDODRINE HCL 5 MG TABLET PO SCH ×2 (16:24→17:56)
--- NOTE | 2019-01-27 16:50 | CONSULT ---
Consult Consult Specialty:: Nephrology Reason for Consultation:: ESRD - History of Present Illness Chief Complaint: became unresponsive after HD History of Present Illness: Pt is a 73 year old female with pmhx of a-fib, esrd, hypotension and hypothryoidism who was sent in after HD for unresponsiveness. She was intubated in the field prior to arrival. She is on pressors in the ICU. I was called to evaluate her as she is on HD. She is lethargic and not responding to verbal stimuli. - History Source History Provided By: Medical Record - Past Medical History Cardio/Vascular: Yes: AFIB, CHF, Deep Vein Thrombosis Pulmonary: Yes: Bronchitis, Pneumonia, Previously Intubated, Pulmonary Embolus, Sleep Apnea Gastrointestinal: Yes: GERD Renal/: Yes: Hemodialysis Endocrine: Yes: Diabetes Mellitus - Alcohol/Substance Use Hx Alcohol Use: No - Smoking History Smoking history: Unknown if ever smoked Have you smoked in the past 12 months: No - Social History ADL: Support Services History of Recent Travel: No Home Medications - Allergies Allergies/Adverse Reactions: Allergies Allergy/AdvReac Type Severity Reaction Status Date / Time No Known Allergies Allergy Unverified 01/19/19 11:43 - Home Medications Home Medications: Ambulatory Orders Acetaminophen 650 mg PO Q6H PRN 09/20/18 Ammonium Lactate Lotion [Lac-Hydrin 12] 1 applic TP BID 09/20/18 Anusol Hc Suppository - 25 mg MA Q4H PRN 09/20/18 Apixaban [Eliquis] 1 tab PO BID 09/20/18 Calcitriol [Calcitriol -] 3 cap PO TID 09/20/18 Docusate Sodium [Colace -] 3 tab PO HS 09/20/18 Lidocaine/Prilocaine Cream [Lidocaine-Prilocaine Cream -] 1 applic TP QID PRN Melatonin 1 mg PO HS 09/20/18 Midodrine HCl 10 mg PO Q8H PRN 09/20/18 Nystatin Ointment [Mycostatin Ointment -] 1 applic TP BID 09/20/18 Sertraline HCl [Zoloft -] 1 tab PO DAILY 09/20/18 Silver Sulfadiazine [Silvadene] 1 applic TP BID 09/20/18 Digoxin 62.5 mcg PO DAILY 12/08/18 Levothyroxine [Synthroid -] 25 mcg PO DAILY 12/08/18 Vitamin B Comp W-C [Nephro-Evert -] 0.8 mg PO DAILY 12/08/18 Family Disease History - Family Disease History Family History: Unable to Obtain Review of Systems Unable to obtain ROS, reason: intubated Physical Exam Vital Signs: Vital Signs Temperature 97.7 F 01/27/19 16:00 Pulse Rate 90 01/27/19 16:00 Respiratory Rate 16 01/27/19 16:00 Blood Pressure 104/59 L 01/27/19 16:00 O2 Sat by Pulse Oximetry (%) 100 01/27/19 09:00 Constitutional: Yes: Calm Eyes: Yes: Conjunctiva Clear Cardiovascular: Yes: S1, S2 Respiratory: Yes: Mechanically Ventilated Gastrointestinal: Yes: WNL Renal/: Yes: Incontinence Musculoskeletal: Yes: Muscle Weakness Edema: Yes Edema: LUE: 2+, RUE: 2+, LLE: 1+, RLE: 1+ Neurological: Yes: Lethargy Labs: CBC, BMP 01/27/19 05:45 01/27/19 05:45 Imaging - Results Chest X-ray: Report Reviewed Problem List - Problems (1) Acute respiratory failure Code(s): J96.00 - ACUTE RESPIRATORY FAILURE, UNSP W HYPOXIA OR HYPERCAPNIA Qualifiers: Respiratory failure complication: hypoxia Qualified Code(s): J96.01 - Acute respiratory failure with hypoxia (2) ESRD on hemodialysis Code(s): N18.6 - END STAGE RENAL DISEASE; Z99.2 - DEPENDENCE ON RENAL DIALYSIS Assessment/Plan Current Medications Generic Name Dose Route Start Last Admin Trade Name Freq PRN Reason Stop Dose Admin Albuterol Sulfate 1 amp 01/27/19 01:54 Ventolin 0.083% Nebulizer Soln - NEB Q6H PRN SHORT OF BREATH/WHEEZING Chlorhexidine Gluconate 1 applic 01/27/19 22:00 Hibiclens For Decolonization - TP HS [facility] Norepinephrine Bitartrate 4, 500 mls @ 37.5 mls/hr 01/26/19 20:30 01/27/19 14 :41 000 mcg/ Dextrose IV 4 mcg/min TITR [facility] 30 mls/hr Titration Protocol 5 MCG/MIN Midazolam HCl 100 mg/ Sodium 100 mls @ 1 mls/hr 01/26/19 21:45 01/27/19 07:00 Chloride IVPB 3 mg/hr TITR [facility] 3 mls/hr Titration Protocol 1 MG/HR Piperacillin Sod/Tazobactam 50 mls @ 100 mls/hr 01/27/19 03:00 Sod 2.25 gm/ Dextrose IVPB Q6H-IV [facility] Protocol Piperacillin Sod/Tazobactam 50 mls @ 100 mls/hr 01/27/19 09:00 01/27/19 16:16 Sod 2.25 gm/ Dextrose IVPB 01/28/19 03:29 100 mls/hr Q6H-IV [facility] Administration Insulin Aspart 1 vial 01/27/19 12:00 01/27/19 13:42 Novolog Vial Sliding Scale - SQ Not Given Q6HPO [facility] Protocol Levothyroxine Sodium 50 mcg 01/27/19 07:00 01/27/19 14:07 Synthroid - PO 50 mcg DAILY@0700 [facility] Administration Lidocaine/Prilocaine 1 applic 01/27/19 01:55 Emla - TP QID PRN HEMORRHOIDS Midodrine 10 mg 01/27/19 14:30 01/27/19 16:24 Proamatine - PO 10 mg TID-MID [facility] Administration Multivit/Ca Carb/B Cmplx/FA/Prenat 1 tablet 01/27/19 10:00 01/27/19 14:06 Nephro-Evert - PO 1 tablet DAILY [facility] Administration Mupirocin 1 applic 01/27/19 10:00 01/27/19 09:32 Bactroban Ointment (For Decolonization) - NS 02/01/19 09:59 1 applic BID [facility] Administration Nystatin 1 applic 01/27/19 22:00 Mycostatin Ointment - TP BID [facility] Ondansetron HCl 4 mg 01/27/19 01:57 Zofran - PO Q6H PRN NAUSEA AND/OR VOMITING Rivaroxaban 15 mg 01/27/19 18:00 Xarelto PO DAILY@1800 [facility] Sertraline HCl 50 mg 01/27/19 10:00 01/27/19 14:07 Zoloft - PO 50 mg DAILY [facility] Administration Silver Sulfadiazine 1 applic 01/27/19 10:00 01/27/19 10:35 Silvadene - TP 1 applic BID [facility] Administration Impression 1. ESRD 2. change in mental status 3. resp failure requiring intubation 4. chf 5. dvt 6. anemia 7. a-fib 8. hypothyroid 9. pleural effusion Plan - will likely dialyze tomorrow for volume removal - monitor lytes - repeat cxr in am - vent support - pressors to a map of 65 - monitor pulse ox - HD right thigh cath, 3 k bath, 3 15 time, 400 abf
[2019-01-27] MEDS: RIVAROXABAN 15 MG TABLET PO SCH (18:53)
[2019-01-27] MEDS: CHLORHEXIDINE GLUCONATE 4% CLEANSER FOR DECOLONIZATION TP SCH (22:51)
[2019-01-27] MEDS: NYSTATIN 100000 UNIT/GM TOPICAL OINTMENT 15 GM TUBE TP SCH (22:51)
[2019-01-28] MEDS: PIPERACILLIN/TAZOB 2.25 GM 2.25 GM in DEXTROSE 5%-WATER - 50 ML IVPB SCH ×6 (04:15→21:36)
[2019-01-28] MEDS: NOREPINEPHRINE BITARTRATE 4,000 MCG in DEXTROSE 5%-WATER - 496 ML IV SCH (04:15)
[2019-01-28] MEDS ORDERED: MIDAZOLAM IN 0.9 % SOD.CHLORID 1 MG/1 ML PLAST..BAG ONE (04:25)
[2019-01-28] MEDS: MIDAZOLAM 100 MG in SODIUM CHLORIDE 100 ML IVPB SCH (04:27)
[2019-01-28] MEDS: INSULIN SLIDING SCALE (NOVOLOG) 1 VIAL SQ SCH ×4 (04:55→18:01)
--- NOTE | 2019-01-28 08:05 | PN ---
Progress Note, Physician Chief Complaint: Pressor requirements increasing No change vent TELE: AF, around 100, VPCs - Current Medication List Current Medications: Active Medications Albuterol Sulfate (Ventolin 0.083% Nebulizer Soln -) 1 amp NEB Q6H PRN PRN Reason: SHORT OF BREATH/WHEEZING Chlorhexidine Gluconate (Hibiclens For Decolonization -) 1 applic TP HS [facility] Last Admin: 01/27/19 22:51 Dose: 1 applic Norepinephrine Bitartrate 4, (000 mcg/ Dextrose) 500 mls @ 37.5 mls/hr IV TITR [facility]; Protocol Last Titration: 01/28/19 07:10 Dose: 8 mcg/min, 60 mls/hr Midazolam HCl 100 mg/ Sodium (Chloride) 100 mls @ 1 mls/hr IVPB TITR [facility]; Protocol Last Admin: 01/28/19 04:27 Dose: 3 mg/hr, 3 mls/hr Piperacillin Sod/Tazobactam (Sod 2.25 gm/ Dextrose) 50 mls @ 100 mls/hr IVPB Q6H-IV [facility]; Protocol Last Admin: 01/28/19 07:46 Dose: Not Given Sodium Chloride (Normal Saline -) 250 mls @ 3,000 mls/hr IV PRN PRN PRN Reason: Hypotension during Dialysis Stop: 01/28/19 16:53 Insulin Aspart (Novolog Vial Sliding Scale -) 1 vial SQ Q6HPO [facility]; Protocol Last Admin: 01/28/19 06:58 Dose: Not Given Levothyroxine Sodium (Synthroid -) 50 mcg PO DAILY@0700 [facility] Last Admin: 01/27/19 14:07 Dose: 50 mcg Lidocaine/Prilocaine (Emla -) 1 applic TP QID PRN PRN Reason: HEMORRHOIDS Midodrine (Proamatine -) 10 mg PO TID-MID [facility] Last Admin: 01/27/19 17:56 Dose: 10 mg Multivit/Ca Carb/B Cmplx/FA/Prenat (Nephro-Evert -) 1 tablet PO DAILY [facility] Last Admin: 01/27/19 14:06 Dose: 1 tablet Mupirocin (Bactroban Ointment (For Decolonization) -) 1 applic NS BID [facility] Stop: 02/01/19 09:59 Last Admin: 01/27/19 22:51 Dose: 1 applic Nystatin (Mycostatin Ointment -) 1 applic TP BID [facility] Last Admin: 01/27/19 22:51 Dose: 1 applic Ondansetron HCl (Zofran -) 4 mg PO Q6H PRN PRN Reason: NAUSEA AND/OR VOMITING Rivaroxaban (Xarelto) 15 mg PO DAILY@1800 [facility] Last Admin: 01/27/19 18:53 Dose: 15 mg Sertraline HCl (Zoloft -) 50 mg PO DAILY [facility] Last Admin: 01/27/19 14:07 Dose: 50 mg Silver Sulfadiazine (Silvadene -) 1 applic TP BID [facility] Last Admin: 01/27/19 22:52 Dose: 1 applic - Objective Vital Signs: Vital Signs Temperature 98.4 F 01/28/19 05:00 Pulse Rate 102 H 01/28/19 07:10 Respiratory Rate 16 01/28/19 07:49 Blood Pressure 84/49 L 01/28/19 07:10 O2 Sat by Pulse Oximetry (%) 100 01/28/19 07:49 Constitutional: Yes: Other (intubted) Cardiovascular: Yes: Pulse Irregular Respiratory: Yes: Other (= breath sounds b/l. No wheezing) Gastrointestinal: Yes: Soft Edema: Yes Edema: RUE: 2+, LLE: 1+, RLE: 1+ Neurological: No: Other (sedated, vent) Labs: CBC, BMP 01/27/19 05:45 01/27/19 05:45 INR, PTT INR 1.76 (0.83-1.09) H 01/27/19 05:45 - ....Imaging EKG: Image Reviewed Assessment/Plan IMP: 1. Acute respiratory failure, possible RLL PNA, sepsis, septic shock on Levophed 2. ESRD on HD 3. H/o DVT /PE on AC REC: 1. Vent support 2. Pressors to maintain MAP 60mmHg 3. HD as per renal 4. Cultures, broad spectrum abx as per Critical Care team 5. Cont AC, may need NGT for Xarelto.
[2019-01-28] MEDS ORDERED: PIPERACILLIN/TAZOBACTAM 2.25 GM VIAL IVPB ONE ×3 (08:44→21:33)
[2019-01-28] MEDS ORDERED: PT OWN MED DRAWER 7, Y5N ONE ×3 (08:44→21:33)
[2019-01-28] MEDS ORDERED: DEXTROSE 5%-WATER - 50 ML IVPB ONE ×3 (08:44→21:34)
[2019-01-28] MEDS: LEVOTHYROXINE NA 50 MCG TABLET (FP) PO SCH (08:45)
[2019-01-28 08:55] LABS: HEMATOCRIT 32.5 % (32.4-45.2); HEMOGLOBIN 10.5 GM/dL (10.7-15.3); MCH 30.7 pg (25.7-33.7); MCHC 32.4 g/dl (32.0-36.0); MEAN CELL VOLUME 94.7 fl (80-96); MEAN PLT VOLUME 9.2 fl (7.5-11.1); PLATELET COUNT 88 K/MM3 (134-434); RBC 3.44 M/mm3 (3.60-5.2); RDW 19.8 % (11.6-15.6); WHITE BLOOD COUNT 9.8 K/mm3 (4.0-10.0)
[2019-01-28] MEDS: VITAMIN B COMP W-C 1 EA TABLET PO SCH (09:16)
[2019-01-28] MEDS: SERTRALINE HCL 50 MG TABLET (FP) PO SCH (09:16)
[2019-01-28] MEDS: SILVER SULFADIAZINE 1% TOP CREAM 400 GM JAR TP SCH ×2 (09:16→21:38)
[2019-01-28] MEDS: MIDODRINE HCL 5 MG TABLET PO SCH ×3 (09:16→18:02)
[2019-01-28] MEDS: NYSTATIN 100000 UNIT/GM TOPICAL OINTMENT 15 GM TUBE TP SCH ×2 (09:16→21:37)
[2019-01-28] MEDS: MUPIROCIN 2% TOPICAL OINTMENT FOR DECOLONIZATION NS SCH ×2 (09:17→21:37)
[2019-01-28 09:20] LABS: ALBUMIN 2.6 g/dl (3.4-5.0); BILIRUBIN,TOTAL 0.8 mg/dL (0.2-1); BLOOD UREA NITROGEN 14.8 mg/dL (7-18); CALCIUM 8.5 mg/dL (8.5-10.1); MAGNESIUM 1.8 mg/dL (1.8-2.4); PHOSPHOROUS 2.2 mg/dL (2.5-4.9); TOT PROT 5.8 g/dl (6.4-8.2)
[2019-01-28] MEDS ORDERED: POTASSIUM PHOSPHATE 30 MM in SODIUM CHLORIDE 250 ML IVPB ONE (09:25)
--- NOTE | 2019-01-28 09:27 | PN ---
Progress Note (short form) - Note Progress Note: remains lethargic remains intubated on levophed Vital Signs Period Temp Pulse Resp BP Sys/Jhaveri Pulse Ox Last 24 Hr 97.7 F-98.4 F 84-110 16-20 81-110/41-70 100-100 cor-rrr lungs decreased bs at bases abd soft, +hernia ext bilateral femoral lines CBC, BMP 01/28/19 08:00 Microbiology 01/26/19 23:05 Blood - Peripheral Venous Blood Culture - Preliminary NO GROWTH OBTAINED AFTER 24 HOURS, INCUBATION TO CONTINUE FOR 4 DAYS. 01/26/19 23:00 Blood - Peripheral Venous Blood Culture - Preliminary NO GROWTH OBTAINED AFTER 24 HOURS, INCUBATION TO CONTINUE cxray congestion Current Medications Albuterol Sulfate (Ventolin 0.083% Nebulizer Soln -) 1 amp NEB Q6H PRN PRN Reason: SHORT OF BREATH/WHEEZING Chlorhexidine Gluconate (Hibiclens For Decolonization -) 1 applic TP HS [facility] Last Admin: 01/27/19 22:51 Dose: 1 applic Norepinephrine Bitartrate 4, (000 mcg/ Dextrose) 500 mls @ 37.5 mls/hr IV TITR [facility]; Protocol Last Titration: 01/28/19 07:10 Dose: 8 mcg/min, 60 mls/hr Midazolam HCl 100 mg/ Sodium (Chloride) 100 mls @ 1 mls/hr IVPB TITR [facility]; Protocol Last Admin: 01/28/19 04:27 Dose: 3 mg/hr, 3 mls/hr Piperacillin Sod/Tazobactam (Sod 2.25 gm/ Dextrose) 50 mls @ 100 mls/hr IVPB Q6H-IV [facility]; Protocol Last Admin: 01/28/19 08:45 Dose: 100 mls/hr Sodium Chloride (Normal Saline -) 250 mls @ 3,000 mls/hr IV PRN PRN PRN Reason: Hypotension during Dialysis Stop: 01/28/19 16:53 Potassium Phosphate 30 mm/ (Sodium Chloride) 260 mls @ 62.5 mls/hr IVPB ONCE ONE Stop: 01/28/19 13:34 Insulin Aspart (Novolog Vial Sliding Scale -) 1 vial SQ Q6HPO [facility]; Protocol Last Admin: 01/28/19 06:58 Dose: Not Given Levothyroxine Sodium (Synthroid -) 50 mcg PO DAILY@0700 [facility] Last Admin: 01/28/19 08:45 Dose: 50 mcg Lidocaine/Prilocaine (Emla -) 1 applic TP QID PRN PRN Reason: HEMORRHOIDS Midodrine (Proamatine -) 10 mg PO TID-MID [facility] Last Admin: 01/28/19 09:16 Dose: 10 mg Multivit/Ca Carb/B Cmplx/FA/Prenat (Nephro-Evert -) 1 tablet PO DAILY [facility] Last Admin: 01/28/19 09:16 Dose: 1 tablet Mupirocin (Bactroban Ointment (For Decolonization) -) 1 applic NS BID [facility] Stop: 02/01/19 09:59 Last Admin: 01/28/19 09:17 Dose: 1 applic Nystatin (Mycostatin Ointment -) 1 applic TP BID [facility] Last Admin: 01/28/19 09:16 Dose: 1 applic Ondansetron HCl (Zofran -) 4 mg PO Q6H PRN PRN Reason: NAUSEA AND/OR VOMITING Rivaroxaban (Xarelto) 15 mg PO DAILY@1800 [facility] Last Admin: 01/27/19 18:53 Dose: 15 mg Sertraline HCl (Zoloft -) 50 mg PO DAILY [facility] Last Admin: 01/28/19 09:16 Dose: 50 mg Silver Sulfadiazine (Silvadene -) 1 applic TP BID [facility] Last Admin: 01/28/19 09:16 Dose: 1 applic a/p hypotension- remains pressor dependent midodrine resumed acute respiratory failure- ?pnemonia but oxygen requirements are not increased hypotension- ?volume status due to HD, vs infection esrd/hd-per renal history of DVT no venous access in upper extremities, all lines are femoral send sputum culture check vanco trough now, redose if less then 15 overall prognosis is poor
[2019-01-28] MEDS ORDERED: NOREPINEPHRINE BITARTRATE 4 MG/4 ML ML IV ONE (09:32)
--- NOTE | 2019-01-28 10:23 | PN ---
Progress Note, Physician Chief Complaint: PATIENT INTUBATED VENT DEPENDENT DAUGHTER BEDSIDE NO ACUTE CHANGES OVERNIGHT IN ICU - Current Medication List Current Medications: Active Medications Albuterol Sulfate (Ventolin 0.083% Nebulizer Soln -) 1 amp NEB Q6H PRN PRN Reason: SHORT OF BREATH/WHEEZING Chlorhexidine Gluconate (Hibiclens For Decolonization -) 1 applic TP HS [facility] Last Admin: 01/27/19 22:51 Dose: 1 applic Norepinephrine Bitartrate 4, (000 mcg/ Dextrose) 500 mls @ 37.5 mls/hr IV TITR [facility]; Protocol Last Titration: 01/28/19 07:10 Dose: 8 mcg/min, 60 mls/hr Midazolam HCl 100 mg/ Sodium (Chloride) 100 mls @ 1 mls/hr IVPB TITR [facility]; Protocol Last Admin: 01/28/19 04:27 Dose: 3 mg/hr, 3 mls/hr Piperacillin Sod/Tazobactam (Sod 2.25 gm/ Dextrose) 50 mls @ 100 mls/hr IVPB Q6H-IV [facility]; Protocol Last Admin: 01/28/19 08:45 Dose: 100 mls/hr Sodium Chloride (Normal Saline -) 250 mls @ 3,000 mls/hr IV PRN PRN PRN Reason: Hypotension during Dialysis Stop: 01/28/19 16:53 Potassium Phosphate 30 mm/ (Sodium Chloride) 260 mls @ 62.5 mls/hr IVPB ONCE ONE Stop: 01/28/19 13:34 Insulin Aspart (Novolog Vial Sliding Scale -) 1 vial SQ Q6HPO [facility]; Protocol Last Admin: 01/28/19 06:58 Dose: Not Given Levothyroxine Sodium (Synthroid -) 50 mcg PO DAILY@0700 [facility] Last Admin: 01/28/19 08:45 Dose: 50 mcg Lidocaine/Prilocaine (Emla -) 1 applic TP QID PRN PRN Reason: HEMORRHOIDS Midodrine (Proamatine -) 10 mg PO TID-MID [facility] Last Admin: 01/28/19 09:16 Dose: 10 mg Multivit/Ca Carb/B Cmplx/FA/Prenat (Nephro-Evert -) 1 tablet PO DAILY [facility] Last Admin: 01/28/19 09:16 Dose: 1 tablet Mupirocin (Bactroban Ointment (For Decolonization) -) 1 applic NS BID [facility] Stop: 02/01/19 09:59 Last Admin: 01/28/19 09:17 Dose: 1 applic Nystatin (Mycostatin Ointment -) 1 applic TP BID [facility] Last Admin: 01/28/19 09:16 Dose: 1 applic Ondansetron HCl (Zofran -) 4 mg PO Q6H PRN PRN Reason: NAUSEA AND/OR VOMITING Rivaroxaban (Xarelto) 15 mg PO DAILY@1800 [facility] Last Admin: 01/27/19 18:53 Dose: 15 mg Sertraline HCl (Zoloft -) 50 mg PO DAILY [facility] Last Admin: 01/28/19 09:16 Dose: 50 mg Silver Sulfadiazine (Silvadene -) 1 applic TP BID [facility] Last Admin: 01/28/19 09:16 Dose: 1 applic - Objective Vital Signs: Vital Signs Temperature 99.6 F 01/28/19 09:00 Pulse Rate 109 H 01/28/19 09:00 Respiratory Rate 16 01/28/19 09:00 Blood Pressure 98/55 L 01/28/19 09:00 O2 Sat by Pulse Oximetry (%) 100 01/28/19 08:30 Constitutional: Yes: Moderate Distress, Other Cardiovascular: Yes: Pulse Irregular Respiratory: Yes: Diminished, Mechanically Ventilated Gastrointestinal: Yes: Soft, Abdomen, Obese Genitourinary: Yes: Incontinence, Other Musculoskeletal: Yes: Muscle Weakness Extremities: Yes: Other Edema: Yes Integumentary: Yes: Rash Wound/Incision: Yes: Dressing Dry and Intact Neurological: Yes: Other Labs: CBC, BMP 01/28/19 08:00 01/28/19 08:00 INR, PTT INR 1.76 (0.83-1.09) H 01/27/19 05:45 Problem List - Problems (1) Acute respiratory failure Code(s): J96.00 - ACUTE RESPIRATORY FAILURE, UNSP W HYPOXIA OR HYPERCAPNIA Qualifiers: Respiratory failure complication: hypoxia Qualified Code(s): J96.01 - Acute respiratory failure with hypoxia (2) ESRD on hemodialysis Code(s): N18.6 - END STAGE RENAL DISEASE; Z99.2 - DEPENDENCE ON RENAL DIALYSIS (3) Hypotension Code(s): I95.9 - HYPOTENSION, UNSPECIFIED Qualifiers: Hypotension type: unspecified hypotension type Qualified Code(s): I95.9 - Hypotension, unspecified (4) Acute exacerbation of congestive heart failure Code(s): I50.9 - HEART FAILURE, UNSPECIFIED (5) Acute on chronic respiratory failure with hypoxia and hypercapnia Code(s): J96.21 - ACUTE AND CHRONIC RESPIRATORY FAILURE WITH HYPOXIA; J96.22 - ACUTE AND CHRONIC RESPIRATORY FAILURE WITH HYPERCAPNIA (6) Afib Code(s): I48.91 - UNSPECIFIED ATRIAL FIBRILLATION (7) Functional quadriplegia Code(s): R53.2 - FUNCTIONAL QUADRIPLEGIA (8) H/O deep venous thrombosis Code(s): Z86.718 - PERSONAL HISTORY OF OTHER VENOUS THROMBOSIS AND EMBOLISM (9) Hypothyroid Code(s): E03.9 - HYPOTHYROIDISM, UNSPECIFIED Assessment/Plan bp support wean off as tolerated from vent d/w family bedside full code. check cultures check labs id and pulmonary consults appreciated dvt prophylaxis npo for now access needed will discuss with surgery
[2019-01-28] MEDS: NOREPINEPHRINE BITARTRATE 8,000 MCG in DEXTROSE 5%-WATER - 492 ML IV SCH (11:00)
--- NOTE | 2019-01-28 11:50 | PN ---
Teaching Attending Note Name of Resident: Tigre Jones ATTENDING PHYSICIAN STATEMENT I saw and evaluated the patient. I reviewed the resident's note and discussed the case with the resident. I agree with the resident's findings and plan as documented. SUBJECTIVE: Patient seen and examined in the ICU. Remains intubated and sedated. AC Mode of vent, 40% FiO2. 8 mcq NE for hemodynamic support. Increasing troponin levels. Intake & Output 01/25/19 01/26/19 01/27/19 01/28/19 23:59 23:59 23:59 23:59 Intake Total 1432 281 Output Total 0 0 Balance 0 1432 281 Weight 270 lb 184 lb 14.4 oz 184 lb 14.4 oz Last Vital Signs Temp Pulse Resp BP Pulse Ox 99.6 F 109 H 16 98/55 L 100 01/28/19 09:00 01/28/19 09:00 01/28/19 09:00 01/28/19 09:00 01/28/19 08:30 Active Medications Albuterol Sulfate (Ventolin 0.083% Nebulizer Soln -) 1 amp NEB Q6H PRN PRN Reason: SHORT OF BREATH/WHEEZING Chlorhexidine Gluconate (Hibiclens For Decolonization -) 1 applic TP HS [facility] Last Admin: 01/27/19 22:51 Dose: 1 applic Midazolam HCl 100 mg/ Sodium (Chloride) 100 mls @ 1 mls/hr IVPB TITR [facility]; Protocol Last Admin: 01/28/19 04:27 Dose: 3 mg/hr, 3 mls/hr Piperacillin Sod/Tazobactam (Sod 2.25 gm/ Dextrose) 50 mls @ 100 mls/hr IVPB Q6H-IV [facility]; Protocol Last Admin: 01/28/19 08:45 Dose: 100 mls/hr Sodium Chloride (Normal Saline -) 250 mls @ 3,000 mls/hr IV PRN PRN PRN Reason: Hypotension during Dialysis Stop: 01/28/19 16:53 Potassium Phosphate 30 mm/ (Sodium Chloride) 260 mls @ 62.5 mls/hr IVPB ONCE ONE Stop: 01/28/19 13:34 Norepinephrine Bitartrate 8, (000 mcg/ Dextrose) 500 mls @ 18.75 mls/hr IV TITR [facility]; Protocol Insulin Aspart (Novolog Vial Sliding Scale -) 1 vial SQ Q6HPO [facility]; Protocol Last Admin: 01/28/19 06:58 Dose: Not Given Levothyroxine Sodium (Synthroid -) 50 mcg PO DAILY@0700 [facility] Last Admin: 01/28/19 08:45 Dose: 50 mcg Lidocaine/Prilocaine (Emla -) 1 applic TP QID PRN PRN Reason: HEMORRHOIDS Midodrine (Proamatine -) 10 mg PO TID-MID [facility] Last Admin: 01/28/19 09:16 Dose: 10 mg Multivit/Ca Carb/B Cmplx/FA/Prenat (Nephro-Evert -) 1 tablet PO DAILY [facility] Last Admin: 01/28/19 09:16 Dose: 1 tablet Mupirocin (Bactroban Ointment (For Decolonization) -) 1 applic NS BID [facility] Stop: 02/01/19 09:59 Last Admin: 01/28/19 09:17 Dose: 1 applic Nystatin (Mycostatin Ointment -) 1 applic TP BID [facility] Last Admin: 01/28/19 09:16 Dose: 1 applic Ondansetron HCl (Zofran -) 4 mg PO Q6H PRN PRN Reason: NAUSEA AND/OR VOMITING Rivaroxaban (Xarelto) 15 mg PO DAILY@1800 [facility] Last Admin: 01/27/19 18:53 Dose: 15 mg Sertraline HCl (Zoloft -) 50 mg PO DAILY [facility] Last Admin: 01/28/19 09:16 Dose: 50 mg Silver Sulfadiazine (Silvadene -) 1 applic TP BID [facility] Last Admin: 01/28/19 09:16 Dose: 1 applic GENERAL: Intubated and sedated HEAD: Normal with no signs of trauma. EYES: Pupils equal, round and sluggish reaction to light, sclera anicteric, conjunctiva clear. EARS, NOSE, THROAT: Orotracheal tube in place, no secretion present NECK: (+) significant increase in edema due to central stenosis LUNGS: Vented, bilateral rhonchi HEART: Irregular rhythm, normal rate, S1 and S2 without murmur, rub. ABDOMEN: Soft, obese, hypoactive bowel sounds, obese abdomen with unsymmetrical appearance UPPER EXTREMITIES: 1+ pulses, cool. No cyanosis. No clubbing. 3+ peripheral edema on the R, 1+ on the L. LOWER EXTREMITIES: 1+ pulses, warm, well-perfused. No calf tenderness. Trace peripheral edema. NEUROLOGICAL: Sedated SKIN: Cool, dry, diffuse ecchymoses noted Laboratory Results - last 24 hr 01/27/19 01/27/19 01/27/19 13:34 17:42 23:46 WBC RBC Hgb Hct MCV MCH MCHC RDW Plt Count MPV Sodium Potassium Chloride Carbon Dioxide Anion Gap BUN Creatinine Est GFR (CKD-EPI)AfAm Est GFR (CKD-EPI)NonAf POC Glucometer 108 103 94 Random Glucose Calcium Phosphorus Magnesium Total Bilirubin AST ALT Alkaline Phosphatase Troponin I Total Protein Albumin 01/28/19 01/28/19 01/28/19 06:55 08:00 08:00 WBC 9.8 RBC 3.44 L Hgb 10.5 L Hct 32.5 MCV 94.7 MCH 30.7 MCHC 32.4 RDW 19.8 H Plt Count 88 L MPV 9.2 Sodium 136 Potassium 3.0 L Chloride 100 Carbon Dioxide 24 Anion Gap 12 BUN 14.8 Creatinine 2.0 H Est GFR (CKD-EPI)AfAm 28.39 Est GFR (CKD-EPI)NonAf 24.50 POC Glucometer 93 Random Glucose 98 Calcium 8.5 Phosphorus 2.2 L Magnesium 1.8 Total Bilirubin 0.8 AST 39 H ALT 24 Alkaline Phosphatase 165 H Troponin I 2.46 H* Total Protein 5.8 L Albumin 2.6 L ASSESSMENT/PLAN: Acute Respiratory Failure ESRD on HD Orthostatic Hypotension CHF DM Hypothyroidism COPD Afib on Xarelto History of DVTs Pulmonary Edema Multiple admissions for PNA with previous intubation S/P episode of unresponsiveness Wean pressors AC mode of vent Will need diuresis to improve pulmonary vascular congestion prior to extubation Start enteral feeds ABX per ID AC Follow cultures Due to central stenosis: will leave access in the femoral vein Requires ICU monitoring Dr Wiley Critical care time spent in reviewing chart, evaluating patient and formulating plan - 36 minutes.
--- NOTE | 2019-01-28 12:55 | PN ---
Physical Exam: SUBJECTIVE: Patient seen and examined at the bedside. This morning, patient required increased pressor support with Levophed up to 8. Remains intubated and sedated. OBJECTIVE: Vital Signs Period Temp Pulse Resp BP Sys/Jhaveri Pulse Ox Last 24 Hr 97.7 F-99.6 F 85-110 16-20 83-126/41-70 100-100 GENERAL: Intubated and sedated HEAD: Normal with no signs of trauma. EYES: Pupils equal, round and sluggish reaction to light, sclera anicteric, conjunctiva clear. EARS, NOSE, THROAT: Orotracheal tube in place, no secretion present NECK: No JVD or masses noted LUNGS: Breath sounds equal, with mechanical breath sounds heard and coarse sounds throughout. HEART: Irregular rhythm, normal rate, S1 and S2 without murmur, rub. ABDOMEN: Soft, moderately distended, hypoactive bowel sounds, obese abdomen with non-symmetrical appearance EXTREMITIES: 3+ peripheral edema on the R, 1+ on the L on upper extremity. No calf tenderness. Trace peripheral edema on lower extremities. NEUROLOGICAL: Unable to assess SKIN: Cool, dry, diffuse ecchymoses noted Laboratory Results - last 24 hr 01/27/19 01/27/19 01/27/19 13:34 17:42 23:46 WBC RBC Hgb Hct MCV MCH MCHC RDW Plt Count MPV Sodium Potassium Chloride Carbon Dioxide Anion Gap BUN Creatinine Est GFR (CKD-EPI)AfAm Est GFR (CKD-EPI)NonAf POC Glucometer 108 103 94 Random Glucose Calcium Phosphorus Magnesium Total Bilirubin AST ALT Alkaline Phosphatase Troponin I Total Protein Albumin 01/28/19 01/28/19 01/28/19 06:55 08:00 08:00 WBC 9.8 RBC 3.44 L Hgb 10.5 L Hct 32.5 MCV 94.7 MCH 30.7 MCHC 32.4 RDW 19.8 H Plt Count 88 L MPV 9.2 Sodium 136 Potassium 3.0 L Chloride 100 Carbon Dioxide 24 Anion Gap 12 BUN 14.8 Creatinine 2.0 H Est GFR (CKD-EPI)AfAm 28.39 Est GFR (CKD-EPI)NonAf 24.50 POC Glucometer 93 Random Glucose 98 Calcium 8.5 Phosphorus 2.2 L Magnesium 1.8 Total Bilirubin 0.8 AST 39 H ALT 24 Alkaline Phosphatase 165 H Troponin I 2.46 H* Total Protein 5.8 L Albumin 2.6 L 01/28/19 12:15 WBC RBC Hgb Hct MCV MCH MCHC RDW Plt Count MPV Sodium Potassium Chloride Carbon Dioxide Anion Gap BUN Creatinine Est GFR (CKD-EPI)AfAm Est GFR (CKD-EPI)NonAf POC Glucometer 98 Random Glucose Calcium Phosphorus Magnesium Total Bilirubin AST ALT Alkaline Phosphatase Troponin I Total Protein Albumin Active Medications Generic Name Dose Route Start Last Admin Trade Name Freq PRN Reason Stop Dose Admin Albuterol Sulfate 1 amp 01/27/19 01:54 Ventolin 0.083% Nebulizer Soln - NEB Q6H PRN SHORT OF BREATH/WHEEZING Chlorhexidine Gluconate 1 applic 01/27/19 22:00 01/27/19 22:51 Hibiclens For Decolonization - TP 1 applic HS NAHEED Administration Midazolam HCl 100 mg/ Sodium 100 mls @ 1 mls/hr 01/26/19 21:45 01/28/19 04:27 Chloride IVPB 3 mg/hr TITR NAHEED 3 mls/hr Administration Protocol 1 MG/HR Piperacillin Sod/Tazobactam 50 mls @ 100 mls/hr 01/27/19 03:00 01/28/19 08:45 Sod 2.25 gm/ Dextrose IVPB 100 mls/hr Q6H-IV NAHEED Administration Protocol Sodium Chloride 250 mls @ 3,000 mls/hr 01/27/19 16:52 Normal Saline - IV 01/28/19 16:53 PRN PRN Hypotension during Dialysis Potassium Phosphate 30 mm/ 260 mls @ 62.5 mls/hr 01/28/19 09:25 01/28/19 12: 49 Sodium Chloride IVPB 01/28/19 13:34 62.5 mls/hr ONCE ONE Administration Norepinephrine Bitartrate 8, 500 mls @ 18.75 mls/hr 01/28/19 11:15 01/28/19 11:00 000 mcg/ Dextrose IV 8 mcg/min TITR NAHEED 30 mls/hr Administration Protocol 5 MCG/MIN Insulin Aspart 1 vial 01/27/19 12:00 01/28/19 12:46 Novolog Vial Sliding Scale - SQ Not Given Q6HPO NAHEED Protocol Levothyroxine Sodium 50 mcg 01/27/19 07:00 01/28/19 08:45 Synthroid - PO 50 mcg DAILY@0700 NAHEED Administration Lidocaine/Prilocaine 1 applic 01/27/19 01:55 Emla - TP QID PRN HEMORRHOIDS Midodrine 10 mg 01/27/19 14:30 01/28/19 09:16 Proamatine - PO 10 mg TID-MID NAHEED Administration Multivit/Ca Carb/B Cmplx/FA/Prenat 1 tablet 01/27/19 10:00 01/28/19 09:16 Nephro-Evert - PO 1 tablet DAILY NAHEED Administration Mupirocin 1 applic 01/27/19 10:00 01/28/19 09:17 Bactroban Ointment (For Decolonization) - NS 02/01/19 09:59 1 applic BID NAHEED Administration Nystatin 1 applic 01/27/19 22:00 01/28/19 09:16 Mycostatin Ointment - TP 1 applic BID NAHEED Administration Ondansetron HCl 4 mg 01/27/19 01:57 Zofran - PO Q6H PRN NAUSEA AND/OR VOMITING Rivaroxaban 15 mg 01/27/19 18:00 01/27/19 18:53 Xarelto PO 15 mg DAILY@1800 NA[facility]ED Administration Sertraline HCl 50 mg 01/27/19 10:00 01/28/19 09:16 Zoloft - PO 50 mg DAILY NAHEED Administration Silver Sulfadiazine 1 applic 01/27/19 10:00 01/28/19 09:16 Silvadene - TP 1 applic BID NAHEED Administration ASSESSMENT/PLAN: Argelia Patel is a 73 year old female with a PMHx of ESRD, Orthostatic Hypotension, CHF, DM, hypothyroid, COPD, Afib (on Xarelto), DVTs, Pulmonary Edema and multiple admissions for PNA (including intubation) admitted to the ICU for unresponsiveness secondary to acute respiratory failure likely from hypercapneia and hypotension from fluid removal during dialysis. Acute Hypercapneic Respiratory Failure Hypotension ESRD CHF DM Hypothyroidism Atrial fibrillation NEUROLOGIC - intubated and sedated - on Versed - continue sedation while patient intubated and decrease when weaning trials begin - head CT with no acute intracranial pathology, possible mastoiditis and sinusitis CARDIOLOGY - received 2 L of NS in the ED - on Levophed, required increased amount today to 8mcq, titrate down as tolerated, double concentrated to reduce fluid volume given - EKG showing afib with RVR with occasional PVCs, poor study - repeat EKG showing no acute changes from EKG done on 01/19/19, low voltage study , afib - troponins elevated at 0.18 trended up to 0.89 > 1.85 > 2.46, likely demand in setting of hypovolemia, will continue to trend - previous echo 12/08/18 showing normal EF, moderate to severe right ventricle dilation, increased right ventricular systolic pressure - monitor I+Os - digoxin level 0.10 - Cardiology consulted, appreciate recs - continue Xarelto for afib RESPIRATORY - intubated - vent settings 450, rate 16, O2 30, PEEP 5, continue to titrate down on O2 as tolerated by sats - original ABG showing pH 7.21, CO2 52.9, O2 142, respiratory acidosis and concurrent non anion gap metabolic acidosis in the setting of hypercapneia and renal failure - repeat ABG showing continuation of hypercapneia and acidosis, vent settings adjusted to increase rate and decrease CO2 - CXR showing increased congestion bilaterally - will likely need diuresis prior to extubation RENAL - Dr. Molina consulted - conservative fluid replacement in the setting of ESRD - HD today, to remove 1 L GASTROINTESTINAL - no acute issues - OG tube in GENITOURINARY - zhang in INFECTIOUS DISEASE - no WBC, afebrile - cannot exclude lung source or wound source - hx of cdiff, cautious approach to continuing antibiotics - blood cxs negative - vanco 1gm - zosyn 2.25gm - ID Consult ENDOCRINE - continue home Synthroid - BGM q6h - ISS HEMATOLOGY - no acute anemia, continue to monitor H/H - thrombocytopenia, continue to monitor F/E/N - no standing fluids, boluses as necessary with conservative fluid resuscitation in setting of ESRD - continue to monitor electrolytes and replete as necessary, hypokalemia and hypophosphatemia noted and repleting - enteral feeds LINES - L femoral central line placed 01/26, will need prolonged access due to difficulty in obtaining access elsewhere, stenosis centrally - R femoral Tesio catheter PROPHYLAXIS - home Xarelto CODE - full code DISPO - continue to monitor in ICU - Family discussion on goals of care Visit type - Emergency Visit Emergency Visit: No - New Patient This patient is new to me today: No - Critical Care Critical Care patient: Yes Total Critical Care Time (in minutes): 36 Critical Care Statement: The care of this patient involved high complexity decision making to prevent further life threatening deterioration of the patient 's condition and/or to evaluate & treat vital organ system(s) failure or risk of failure.
--- NOTE | 2019-01-28 13:07 | PN ---
Progress Note, Physician History of Present Illness: Pt seen and examined at bedside. She remains in the ICU. She remains intubated. - Current Medication List Current Medications: Active Medications Albuterol Sulfate (Ventolin 0.083% Nebulizer Soln -) 1 amp NEB Q6H PRN PRN Reason: SHORT OF BREATH/WHEEZING Chlorhexidine Gluconate (Hibiclens For Decolonization -) 1 applic TP HS NAHEED Last Admin: 01/27/19 22:51 Dose: 1 applic Midazolam HCl 100 mg/ Sodium (Chloride) 100 mls @ 1 mls/hr IVPB TITR [facility]; Protocol Last Admin: 01/28/19 04:27 Dose: 3 mg/hr, 3 mls/hr Piperacillin Sod/Tazobactam (Sod 2.25 gm/ Dextrose) 50 mls @ 100 mls/hr IVPB Q6H-IV [facility]; Protocol Last Admin: 01/28/19 08:45 Dose: 100 mls/hr Sodium Chloride (Normal Saline -) 250 mls @ 3,000 mls/hr IV PRN PRN PRN Reason: Hypotension during Dialysis Stop: 01/28/19 16:53 Potassium Phosphate 30 mm/ (Sodium Chloride) 260 mls @ 62.5 mls/hr IVPB ONCE ONE Stop: 01/28/19 13:34 Last Admin: 01/28/19 12:49 Dose: 62.5 mls/hr Norepinephrine Bitartrate 8, (000 mcg/ Dextrose) 500 mls @ 18.75 mls/hr IV TITR [facility]; Protocol Last Admin: 01/28/19 11:00 Dose: 8 mcg/min, 30 mls/hr Insulin Aspart (Novolog Vial Sliding Scale -) 1 vial SQ Q6HPO [facility]; Protocol Last Admin: 01/28/19 12:46 Dose: Not Given Levothyroxine Sodium (Synthroid -) 50 mcg PO DAILY@0700 COUNTS INCLUDE 234 BEDS AT THE [facility] Last Admin: 01/28/19 08:45 Dose: 50 mcg Lidocaine/Prilocaine (Emla -) 1 applic TP QID PRN PRN Reason: HEMORRHOIDS Midodrine (Proamatine -) 10 mg PO TID-MID COUNTS INCLUDE 234 BEDS AT THE [facility] Last Admin: 01/28/19 09:16 Dose: 10 mg Multivit/Ca Carb/B Cmplx/FA/Prenat (Nephro-Evert -) 1 tablet PO DAILY COUNTS INCLUDE 234 BEDS AT THE [facility] Last Admin: 01/28/19 09:16 Dose: 1 tablet Mupirocin (Bactroban Ointment (For Decolonization) -) 1 applic NS BID COUNTS INCLUDE 234 BEDS AT THE [facility] Stop: 02/01/19 09:59 Last Admin: 01/28/19 09:17 Dose: 1 applic Nystatin (Mycostatin Ointment -) 1 applic TP BID COUNTS INCLUDE 234 BEDS AT THE [facility] Last Admin: 01/28/19 09:16 Dose: 1 applic Ondansetron HCl (Zofran -) 4 mg PO Q6H PRN PRN Reason: NAUSEA AND/OR VOMITING Rivaroxaban (Xarelto) 15 mg PO DAILY@1800 COUNTS INCLUDE 234 BEDS AT THE [facility] Last Admin: 01/27/19 18:53 Dose: 15 mg Sertraline HCl (Zoloft -) 50 mg PO DAILY COUNTS INCLUDE 234 BEDS AT THE [facility] Last Admin: 01/28/19 09:16 Dose: 50 mg Silver Sulfadiazine (Silvadene -) 1 applic TP BID COUNTS INCLUDE 234 BEDS AT THE [facility] Last Admin: 01/28/19 09:16 Dose: 1 applic - Objective Vital Signs: Vital Signs Temperature 100.0 F H 01/28/19 12:59 Pulse Rate 101 H 01/28/19 12:59 Respiratory Rate 16 01/28/19 12:59 Blood Pressure 109/69 01/28/19 12:59 O2 Sat by Pulse Oximetry (%) 100 01/28/19 11:57 Constitutional: Yes: Calm Eyes: Yes: Conjunctiva Clear HENT: Yes: Atraumatic Neck: Yes: Supple Cardiovascular: Yes: S1, S2 Respiratory: Yes: Intubated, Mechanically Ventilated Gastrointestinal: Yes: Soft, Abdomen, Obese Genitourinary: Yes: Incontinence Musculoskeletal: Yes: Muscle Weakness Edema: Yes Edema: LUE: 2+, RUE: 2+, LLE: Trace, RLE: Trace Integumentary: Yes: Bruising Neurological: Yes: Lethargy Labs: CBC, BMP 01/28/19 08:00 01/28/19 08:00 INR, PTT INR 1.76 (0.83-1.09) H 01/27/19 05:45 - ....Imaging Chest X-ray: Report Reviewed Problem List - Problems (1) Acute respiratory failure Code(s): J96.00 - ACUTE RESPIRATORY FAILURE, UNSP W HYPOXIA OR HYPERCAPNIA Qualifiers: Respiratory failure complication: hypoxia Qualified Code(s): J96.01 - Acute respiratory failure with hypoxia (2) ESRD on hemodialysis Code(s): N18.6 - END STAGE RENAL DISEASE; Z99.2 - DEPENDENCE ON RENAL DIALYSIS Assessment/Plan Current Medications Generic Name Dose Route Start Last Admin Trade Name Freq PRN Reason Stop Dose Admin Albuterol Sulfate 1 amp 01/27/19 01:54 Ventolin 0.083% Nebulizer Soln - NEB Q6H PRN SHORT OF BREATH/WHEEZING Chlorhexidine Gluconate 1 applic 01/27/19 22:00 01/27/19 22:51 Hibiclens For Decolonization - TP 1 applic HS NAHEED Administration Midazolam HCl 100 mg/ Sodium 100 mls @ 1 mls/hr 01/26/19 21:45 01/28/19 04:27 Chloride IVPB 3 mg/hr TITR NAHEED 3 mls/hr Administration Protocol 1 MG/HR Piperacillin Sod/Tazobactam 50 mls @ 100 mls/hr 01/27/19 03:00 01/28/19 08:45 Sod 2.25 gm/ Dextrose IVPB 100 mls/hr Q6H-IV NAHEED Administration Protocol Sodium Chloride 250 mls @ 3,000 mls/hr 01/27/19 16:52 Normal Saline - IV 01/28/19 16:53 PRN PRN Hypotension during Dialysis Potassium Phosphate 30 mm/ 260 mls @ 62.5 mls/hr 01/28/19 09:25 01/28/19 12: 49 Sodium Chloride IVPB 01/28/19 13:34 62.5 mls/hr ONCE ONE Administration Norepinephrine Bitartrate 8, 500 mls @ 18.75 mls/hr 01/28/19 11:15 01/28/19 11:00 000 mcg/ Dextrose IV 8 mcg/min TITR NAHEED 30 mls/hr Administration Protocol 5 MCG/MIN Insulin Aspart 1 vial 01/27/19 12:00 01/28/19 12:46 Novolog Vial Sliding Scale - SQ Not Given Q6HPO [facility] Protocol Levothyroxine Sodium 50 mcg 01/27/19 07:00 01/28/19 08:45 Synthroid - PO 50 mcg DAILY@0700 NAHEED Administration Lidocaine/Prilocaine 1 applic 01/27/19 01:55 Emla - TP QID PRN HEMORRHOIDS Midodrine 10 mg 01/27/19 14:30 01/28/19 09:16 Proamatine - PO 10 mg TID-MID NAHEED Administration Multivit/Ca Carb/B Cmplx/FA/Prenat 1 tablet 01/27/19 10:00 01/28/19 09:16 Nephro-Evert - PO 1 tablet DAILY NAHEED Administration Mupirocin 1 applic 01/27/19 10:00 01/28/19 09:17 Bactroban Ointment (For Decolonization) - NS 02/01/19 09:59 1 applic BID NAHEED Administration Nystatin 1 applic 01/27/19 22:00 01/28/19 09:16 Mycostatin Ointment - TP 1 applic BID NAHEED Administration Ondansetron HCl 4 mg 01/27/19 01:57 Zofran - PO Q6H PRN NAUSEA AND/OR VOMITING Rivaroxaban 15 mg 01/27/19 18:00 01/27/19 18:53 Xarelto PO 15 mg DAILY@1800 NAHEED Administration Sertraline HCl 50 mg 01/27/19 10:00 01/28/19 09:16 Zoloft - PO 50 mg DAILY NAHEED Administration Silver Sulfadiazine 1 applic 01/27/19 10:00 01/28/19 09:16 Silvadene - TP 1 applic BID NAHEED Administration Impression 1. ESRD 2. change in mental status 3. resp failure requiring intubation 4. chf 5. dvt 6. anemia 7. a-fib 8. hypothyroid 9. pleural effusion Plan - HD today - discussed with ICU, will UF 1 liter - will evaluate for HD again tomorrow - vent support - pressors to a map of 65 - monitor pulse ox - HD right thigh cath, 3 k bath, 3 15 time, 400 abf
[2019-01-28] MEDS: RIVAROXABAN 15 MG TABLET PO SCH (18:02)
[2019-01-28 18:59] LABS: BASO % 0.4 % (0-2.0); EOS % 0.1 % (0-4.5); HEMATOCRIT 33.8 % (32.4-45.2); HEMOGLOBIN 10.7 GM/dL (10.7-15.3); LYMPH % 6.7 % (8-40); MCH 30.2 pg (25.7-33.7); MCHC 31.6 g/dl (32.0-36.0); MEAN CELL VOLUME 95.7 fl (80-96); MONO % 6.4 % (3.8-10.2); NEUT % 86.4 % (42.8-82.8); PLATELET COUNT 82 K/MM3 (134-434); RBC 3.53 M/mm3 (3.60-5.2); RDW 19.8 % (11.6-15.6); WHITE BLOOD COUNT 13.4 K/mm3 (4.0-10.0)
[2019-01-28 19:25] LABS: ALBUMIN 2.5 g/dl (3.4-5.0); BLOOD UREA NITROGEN 9.5 mg/dL (7-18); CALCIUM 8.5 mg/dL (8.5-10.1); CREATININE 1.3 mg/dL (0.55-1.3); POTASSIUM 3.3 mmol/L (3.5-5.1); TOT PROT 5.8 g/dl (6.4-8.2)
[2019-01-28] MEDS: CHLORHEXIDINE GLUCONATE 4% CLEANSER FOR DECOLONIZATION TP SCH (21:37)
[2019-01-29] MEDS: INSULIN SLIDING SCALE (NOVOLOG) 1 VIAL SQ SCH ×5 (00:23→23:44)
[2019-01-29] MEDS ORDERED: PIPERACILLIN/TAZOBACTAM 2.25 GM VIAL IVPB ONE ×5 (02:54→23:52)
[2019-01-29] MEDS ORDERED: DEXTROSE 5%-WATER - 50 ML IVPB ONE ×5 (02:55→23:52)
[2019-01-29] MEDS: PIPERACILLIN/TAZOB 2.25 GM 2.25 GM in DEXTROSE 5%-WATER - 50 ML IVPB SCH ×4 (03:07→20:01)
[2019-01-29] MEDS: MIDAZOLAM 100 MG in SODIUM CHLORIDE 100 ML IVPB SCH ×2 (03:08→21:05)
[2019-01-29] MEDS: NOREPINEPHRINE BITARTRATE 8,000 MCG in DEXTROSE 5%-WATER - 492 ML IV SCH ×2 (03:15→20:01)
[2019-01-29] MEDS: LEVOTHYROXINE NA 50 MCG TABLET (FP) PO SCH (06:12)
[2019-01-29 06:39] LABS: BASO % 0.9 % (0-2.0); HEMATOCRIT 30.4 % (32.4-45.2); HEMOGLOBIN 9.8 GM/dL (10.7-15.3); LYMPH % 6.9 % (8-40); MCH 30.4 pg (25.7-33.7); MCHC 32.2 g/dl (32.0-36.0); MEAN CELL VOLUME 94.3 fl (80-96); MEAN PLT VOLUME 8.8 fl (7.5-11.1); MONO % 7.1 % (3.8-10.2); NEUT % 85.1 % (42.8-82.8); PLATELET COUNT 88 K/MM3 (134-434); RBC 3.22 M/mm3 (3.60-5.2); RDW 19.9 % (11.6-15.6); WHITE BLOOD COUNT 13.3 K/mm3 (4.0-10.0)
[2019-01-29 07:09] LABS: ALBUMIN 2.4 g/dl (3.4-5.0); BLOOD UREA NITROGEN 13.2 mg/dL (7-18); CALCIUM 8.4 mg/dL (8.5-10.1); CREATININE 1.7 mg/dL (0.55-1.3); MAGNESIUM 1.7 mg/dL (1.8-2.4); PHOSPHOROUS 2.7 mg/dL (2.5-4.9); POTASSIUM 3.3 mmol/L (3.5-5.1); TOT PROT 5.5 g/dl (6.4-8.2)
[2019-01-29] MEDS ORDERED: MAGNESIUM OXIDE 400 MG TABLET (FP) PO ONE (07:29)
--- NOTE | 2019-01-29 08:21 | PN ---
Progress Note (short form) - Note Progress Note: Coverage for Dr. Molina Renal follow up for ESRD on HD Pt seen and examined in the ICU on vent, FiO2 is 30% s/p dialysis yesterday with UF of 1kg CXR this am shows persistent congestion Vital Signs Temperature 99.4 F 01/29/19 07:00 Pulse Rate 118 H 01/29/19 07:00 Respiratory Rate 10 01/29/19 07:00 Blood Pressure 105/68 01/29/19 07:00 O2 Sat by Pulse Oximetry (%) 100 01/29/19 00:07 Intake & Output 01/26/19 01/27/19 01/28/19 01/29/19 23:59 23:59 23:59 23:59 Intake Total 1432 1693 881 Output Total 0 0 1200 Balance 0 1432 493 881 Weight 122.47 kg 83.869 kg 83.461 kg 84.912 kg NAD on Vent via ET tube RRR Dec BS + sacral edema CBC, BMP 01/29/19 05:30 01/29/19 05:30 Current Medications Albumin Human (Albumin Human 25%) 12.5 gm IVPB Q30M NAHEED Albuterol Sulfate (Ventolin 0.083% Nebulizer Soln -) 1 amp NEB Q6H PRN PRN Reason: SHORT OF BREATH/WHEEZING Chlorhexidine Gluconate (Hibiclens For Decolonization -) 1 applic TP HS NAHEED Last Admin: 01/28/19 21:37 Dose: 1 applic Midazolam HCl 100 mg/ Sodium (Chloride) 100 mls @ 1 mls/hr IVPB TITR [facility]; Protocol Last Admin: 01/29/19 03:08 Dose: Not Given Piperacillin Sod/Tazobactam (Sod 2.25 gm/ Dextrose) 50 mls @ 100 mls/hr IVPB Q6H-IV [facility]; Protocol Last Admin: 01/29/19 03:07 Dose: 100 mls/hr Sodium Chloride (Normal Saline -) 250 mls @ 3,000 mls/hr IV PRN PRN PRN Reason: Hypotension during Dialysis Stop: 01/28/19 16:53 Norepinephrine Bitartrate 8, (000 mcg/ Dextrose) 500 mls @ 18.75 mls/hr IV TITR [facility]; Protocol Last Admin: 01/29/19 03:15 Dose: 8 mcg/min, 30 mls/hr Sodium Chloride (Normal Saline -) 250 mls @ 3,000 mls/hr IV PRN PRN PRN Reason: Hypotension during Dialysis Stop: 01/30/19 07:51 Insulin Aspart (Novolog Vial Sliding Scale -) 1 vial SQ Q6HPO [facility]; Protocol Last Admin: 01/29/19 06:11 Dose: Not Given Levothyroxine Sodium (Synthroid -) 50 mcg PO DAILY@0700 [facility] Last Admin: 01/29/19 06:12 Dose: 50 mcg Lidocaine/Prilocaine (Emla -) 1 applic TP QID PRN PRN Reason: HEMORRHOIDS Midodrine (Proamatine -) 10 mg PO TID-MID [facility] Last Admin: 01/28/19 18:02 Dose: 10 mg Multivit/Ca Carb/B Cmplx/FA/Prenat (Nephro-Evert -) 1 tablet PO DAILY [facility] Last Admin: 01/28/19 09:16 Dose: 1 tablet Mupirocin (Bactroban Ointment (For Decolonization) -) 1 applic NS BID [facility] Stop: 02/01/19 09:59 Last Admin: 01/28/19 21:37 Dose: 1 applic Nystatin (Mycostatin Ointment -) 1 applic TP BID [facility] Last Admin: 01/28/19 21:37 Dose: 1 applic Ondansetron HCl (Zofran -) 4 mg PO Q6H PRN PRN Reason: NAUSEA AND/OR VOMITING Rivaroxaban (Xarelto) 15 mg PO DAILY@1800 [facility] Last Admin: 01/28/19 18:02 Dose: 15 mg Sertraline HCl (Zoloft -) 50 mg PO DAILY [facility] Last Admin: 01/28/19 09:16 Dose: 50 mg Silver Sulfadiazine (Silvadene -) 1 applic TP BID [facility] Last Admin: 01/28/19 21:38 Dose: 1 applic Impression 1. ESRD 2. change in mental status 3. resp failure requiring intubation 4. chf 5. dvt 6. anemia 7. a-fib 8. hypothyroid 9. pleural effusion Plan Given persistent congestion on CXR will plan for isolated UF today with fluid removal as tolerated no indication for dialysis as electrolytes as WNL continue vent support ICU monitoring next planned Dialysis is Thursday. Thank you Melquiades Montgomery DO
--- NOTE | 2019-01-29 08:45 | PN ---
Progress Note, Physician Chief Complaint: resp failure History of Present Illness: intubated, sedated - Current Medication List Current Medications: Active Medications Albumin Human (Albumin Human 25%) 12.5 gm IVPB Q30M [facility] Albuterol Sulfate (Ventolin 0.083% Nebulizer Soln -) 1 amp NEB Q6H PRN PRN Reason: SHORT OF BREATH/WHEEZING Chlorhexidine Gluconate (Hibiclens For Decolonization -) 1 applic TP HS [facility] Last Admin: 01/28/19 21:37 Dose: 1 applic Midazolam HCl 100 mg/ Sodium (Chloride) 100 mls @ 1 mls/hr IVPB TITR [facility]; Protocol Last Admin: 01/29/19 03:08 Dose: Not Given Piperacillin Sod/Tazobactam (Sod 2.25 gm/ Dextrose) 50 mls @ 100 mls/hr IVPB Q6H-IV [facility]; Protocol Last Admin: 01/29/19 03:07 Dose: 100 mls/hr Sodium Chloride (Normal Saline -) 250 mls @ 3,000 mls/hr IV PRN PRN PRN Reason: Hypotension during Dialysis Stop: 01/28/19 16:53 Norepinephrine Bitartrate 8, (000 mcg/ Dextrose) 500 mls @ 18.75 mls/hr IV TITR [facility]; Protocol Last Titration: 01/29/19 08:35 Dose: 7 mcg/min, 26.25 mls/hr Sodium Chloride (Normal Saline -) 250 mls @ 3,000 mls/hr IV PRN PRN PRN Reason: Hypotension during Dialysis Stop: 01/30/19 07:51 Insulin Aspart (Novolog Vial Sliding Scale -) 1 vial SQ Q6HPO [facility]; Protocol Last Admin: 01/29/19 06:11 Dose: Not Given Levothyroxine Sodium (Synthroid -) 50 mcg PO DAILY@0700 [facility] Last Admin: 01/29/19 06:12 Dose: 50 mcg Lidocaine/Prilocaine (Emla -) 1 applic TP QID PRN PRN Reason: HEMORRHOIDS Midodrine (Proamatine -) 10 mg PO TID-MID [facility] Last Admin: 01/28/19 18:02 Dose: 10 mg Multivit/Ca Carb/B Cmplx/FA/Prenat (Nephro-Evert -) 1 tablet PO DAILY [facility] Last Admin: 01/28/19 09:16 Dose: 1 tablet Mupirocin (Bactroban Ointment (For Decolonization) -) 1 applic NS BID [facility] Stop: 02/01/19 09:59 Last Admin: 01/28/19 21:37 Dose: 1 applic Nystatin (Mycostatin Ointment -) 1 applic TP BID [facility] Last Admin: 01/28/19 21:37 Dose: 1 applic Ondansetron HCl (Zofran -) 4 mg PO Q6H PRN PRN Reason: NAUSEA AND/OR VOMITING Potassium Chloride (Potassium Chloride 20 Meq Premix Ivpb -) 20 meq IVPB ONCE ONE Stop: 01/29/19 09:01 Rivaroxaban (Xarelto) 15 mg PO DAILY@1800 [facility] Last Admin: 01/28/19 18:02 Dose: 15 mg Sertraline HCl (Zoloft -) 50 mg PO DAILY [facility] Last Admin: 01/28/19 09:16 Dose: 50 mg Silver Sulfadiazine (Silvadene -) 1 applic TP BID [facility] Last Admin: 01/28/19 21:38 Dose: 1 applic - Objective Vital Signs: Vital Signs Temperature 99.4 F 01/29/19 07:00 Pulse Rate 113 H 01/29/19 08:35 Respiratory Rate 14 01/29/19 08:00 Blood Pressure 111/60 01/29/19 08:35 O2 Sat by Pulse Oximetry (%) 100 01/29/19 00:07 Constitutional: Yes: No Distress, Calm, Obese Cardiovascular: Yes: Pulse Irregular, S1, S2. No: JVD (prohibitive tds exam), Gallop, Murmur Respiratory: Yes: Regular, CTA Bilaterally (anteriorly). No: Accessory Muscle Use, Rales, Wheezes Extremities: No: Cold Edema: No Neurological: No: Alert, Oriented, Seizure Psychiatric: No: Agitated Labs: CBC, BMP 01/29/19 05:30 01/29/19 05:30 INR, PTT INR 1.76 (0.83-1.09) H 01/27/19 05:45 Assessment/Plan Echo 12/01: nl LV function, RV mod to severely dilated, RV function mod to severely reduced, mod dilated LA/RA, RVSP 40-50 mmHg, mod TR tele: AF, HR controlled (mildly rapid at times) IMP: 1. Acute on chronic hypoxic/hypercapneic respiratory failure, possible RLL PNA, sepsis 2. septic shock on Levophed, doubt cardiogenic shock here 2. HFpEF, pulmonary HTN, RV dysfunction 3. ESRD on HD 4. H/o DVT /PE on AC REC: 1. Vent support 2. Pressors to maintain MAP 60mmHg--AF rates tolerating Levophed, continue same. 3. If develops signs of cool extremities or worsening hypotension, consider trial of milrinone for RV function. 4. HD as per renal 5. Cultures, broad spectrum abx as per Critical Care team 6. Cont AC, may need NGT for Xarelto. 7. hold AVN blockers (hypotension), HRs ok 8. cont midodrine for bp support at HD est time in data review, pt exam, and formulating mgmt plan of potentially life threatening medical problems = 35 min
[2019-01-29] MEDS ORDERED: POTASSIUM CHLORIDE 20 MEQ PREMIX IVPB 100 ML IVPB ONE (09:00)
[2019-01-29] MEDS: SERTRALINE HCL 50 MG TABLET (FP) PO SCH (09:07)
[2019-01-29] MEDS: MIDODRINE HCL 5 MG TABLET PO SCH ×3 (09:07→18:31)
[2019-01-29] MEDS: VITAMIN B COMP W-C 1 EA TABLET PO SCH (09:07)
--- NOTE | 2019-01-29 09:09 | PN ---
Progress Note, Physician Chief Complaint: ID Coverage Dr. Vyas Unresponsive History of Present Illness: Pt is a 73 yr old female admitted to the ICU - intubated on vent. She had become unresponsive post-HD. Intubated en route. Now, on pressors. Rx for presumed sepsis given hypotension/resp failure. All c/s NGTD. - Current Medication List Current Medications: Active Medications Albumin Human (Albumin Human 25%) 12.5 gm IVPB Q30M [facility] Albuterol Sulfate (Ventolin 0.083% Nebulizer Soln -) 1 amp NEB Q6H PRN PRN Reason: SHORT OF BREATH/WHEEZING Chlorhexidine Gluconate (Hibiclens For Decolonization -) 1 applic TP HS [facility] Last Admin: 01/28/19 21:37 Dose: 1 applic Midazolam HCl 100 mg/ Sodium (Chloride) 100 mls @ 1 mls/hr IVPB TITR [facility]; Protocol Last Admin: 01/29/19 03:08 Dose: Not Given Piperacillin Sod/Tazobactam (Sod 2.25 gm/ Dextrose) 50 mls @ 100 mls/hr IVPB Q6H-IV [facility]; Protocol Last Admin: 01/29/19 03:07 Dose: 100 mls/hr Sodium Chloride (Normal Saline -) 250 mls @ 3,000 mls/hr IV PRN PRN PRN Reason: Hypotension during Dialysis Stop: 01/28/19 16:53 Norepinephrine Bitartrate 8, (000 mcg/ Dextrose) 500 mls @ 18.75 mls/hr IV TITR [facility]; Protocol Last Titration: 01/29/19 08:35 Dose: 7 mcg/min, 26.25 mls/hr Sodium Chloride (Normal Saline -) 250 mls @ 3,000 mls/hr IV PRN PRN PRN Reason: Hypotension during Dialysis Stop: 01/30/19 07:51 Insulin Aspart (Novolog Vial Sliding Scale -) 1 vial SQ Q6HPO [facility]; Protocol Last Admin: 01/29/19 06:11 Dose: Not Given Levothyroxine Sodium (Synthroid -) 50 mcg PO DAILY@0700 [facility] Last Admin: 01/29/19 06:12 Dose: 50 mcg Lidocaine/Prilocaine (Emla -) 1 applic TP QID PRN PRN Reason: HEMORRHOIDS Midodrine (Proamatine -) 10 mg PO TID-MID [facility] Last Admin: 01/28/19 18:02 Dose: 10 mg Multivit/Ca Carb/B Cmplx/FA/Prenat (Nephro-Evert -) 1 tablet PO DAILY [facility] Last Admin: 01/28/19 09:16 Dose: 1 tablet Mupirocin (Bactroban Ointment (For Decolonization) -) 1 applic NS BID [facility] Stop: 02/01/19 09:59 Last Admin: 01/28/19 21:37 Dose: 1 applic Nystatin (Mycostatin Ointment -) 1 applic TP BID [facility] Last Admin: 01/28/19 21:37 Dose: 1 applic Ondansetron HCl (Zofran -) 4 mg PO Q6H PRN PRN Reason: NAUSEA AND/OR VOMITING Rivaroxaban (Xarelto) 15 mg PO DAILY@1800 [facility] Last Admin: 01/28/19 18:02 Dose: 15 mg Sertraline HCl (Zoloft -) 50 mg PO DAILY [facility] Last Admin: 01/28/19 09:16 Dose: 50 mg Silver Sulfadiazine (Silvadene -) 1 applic TP BID [facility] Last Admin: 01/28/19 21:38 Dose: 1 applic - Objective Vital Signs: Vital Signs Temperature 99.4 F 01/29/19 07:00 Pulse Rate 113 H 01/29/19 08:35 Respiratory Rate 17 01/29/19 08:20 Blood Pressure 111/60 01/29/19 08:35 O2 Sat by Pulse Oximetry (%) 100 01/29/19 00:07 Constitutional: Yes: Other (Sedated and intubated on Vent, not responsive) Eyes: Yes: PERRL, Other (minimal DC eyelids) Cardiovascular: Yes: Regular Rate and Rhythm, S1, S2 Respiratory: Yes: Diminished Gastrointestinal: Yes: Normal Bowel Sounds, Soft Extremities: Yes: Other ((R) Fem CV) Labs: CBC, BMP 01/29/19 05:30 01/29/19 05:30 INR, PTT INR 1.76 (0.83-1.09) H 01/27/19 05:45 Problem List - Problems (1) Acute respiratory failure Code(s): J96.00 - ACUTE RESPIRATORY FAILURE, UNSP W HYPOXIA OR HYPERCAPNIA Qualifiers: Respiratory failure complication: hypoxia Qualified Code(s): J96.01 - Acute respiratory failure with hypoxia (2) Hypotension Code(s): I95.9 - HYPOTENSION, UNSPECIFIED Qualifiers: Hypotension type: unspecified hypotension type Qualified Code(s): I95.9 - Hypotension, unspecified (3) ESRD on hemodialysis Code(s): N18.6 - END STAGE RENAL DISEASE; Z99.2 - DEPENDENCE ON RENAL DIALYSIS Assessment/Plan Pt with Hx AF, ESRD on HD admitted with unresponsiveness & hypotension. On VAnco and Zosyn for presumed sepsis. Continue current regimen. Consider decrease Zosyn to Q 8 hrs. Await pending c/s. Check Vanco Level and re-dose if < 15.
[2019-01-29] MEDS ORDERED: PT OWN MED DRAWER 7, Y5N ONE (09:20)
[2019-01-29] MEDS: MUPIROCIN 2% TOPICAL OINTMENT FOR DECOLONIZATION NS SCH ×2 (09:47→21:06)
[2019-01-29] MEDS: NYSTATIN 100000 UNIT/GM TOPICAL OINTMENT 15 GM TUBE TP SCH ×2 (09:47→21:06)
--- NOTE | 2019-01-29 09:56 | PN ---
Teaching Attending Note Name of Resident: Tigre Jones ATTENDING PHYSICIAN STATEMENT I saw and evaluated the patient. I reviewed the resident's note and discussed the case with the resident. I agree with the resident's findings and plan as documented. SUBJECTIVE: Patient seen and examined in the ICU. Remains intubated and sedated. AC Mode of vent, 30% FiO2. 8 mcq NE for hemodynamic support. CXR: worsening opacity on the right Intake & Output 01/26/19 01/27/19 01/28/19 01/29/19 23:59 23:59 23:59 23:59 Intake Total 1432 1693 881 Output Total 0 0 1200 Balance 0 1432 493 881 Weight 270 lb 184 lb 14.4 oz 184 lb 187 lb 3.2 oz Last Vital Signs Temp Pulse Resp BP Pulse Ox 99.4 F 113 H 17 111/60 100 01/29/19 07:00 01/29/19 08:35 01/29/19 08:20 01/29/19 08:35 01/29/19 00:07 Active Medications Albumin Human (Albumin Human 25%) 12.5 gm IVPB Q30M [facility] Albuterol Sulfate (Ventolin 0.083% Nebulizer Soln -) 1 amp NEB Q6H PRN PRN Reason: SHORT OF BREATH/WHEEZING Chlorhexidine Gluconate (Hibiclens For Decolonization -) 1 applic TP HS [facility] Last Admin: 01/28/19 21:37 Dose: 1 applic Midazolam HCl 100 mg/ Sodium (Chloride) 100 mls @ 1 mls/hr IVPB TITR [facility]; Protocol Last Admin: 01/29/19 03:08 Dose: Not Given Piperacillin Sod/Tazobactam (Sod 2.25 gm/ Dextrose) 50 mls @ 100 mls/hr IVPB Q6H-IV [facility]; Protocol Last Admin: 01/29/19 09:06 Dose: 100 mls/hr Sodium Chloride (Normal Saline -) 250 mls @ 3,000 mls/hr IV PRN PRN PRN Reason: Hypotension during Dialysis Stop: 01/28/19 16:53 Norepinephrine Bitartrate 8, (000 mcg/ Dextrose) 500 mls @ 18.75 mls/hr IV TITR [facility]; Protocol Last Titration: 01/29/19 08:35 Dose: 7 mcg/min, 26.25 mls/hr Sodium Chloride (Normal Saline -) 250 mls @ 3,000 mls/hr IV PRN PRN PRN Reason: Hypotension during Dialysis Stop: 01/30/19 07:51 Insulin Aspart (Novolog Vial Sliding Scale -) 1 vial SQ Q6HPO [facility]; Protocol Last Admin: 01/29/19 06:11 Dose: Not Given Levothyroxine Sodium (Synthroid -) 50 mcg PO DAILY@0700 [facility] Last Admin: 01/29/19 06:12 Dose: 50 mcg Lidocaine/Prilocaine (Emla -) 1 applic TP QID PRN PRN Reason: HEMORRHOIDS Midodrine (Proamatine -) 10 mg PO TID-MID [facility] Last Admin: 01/29/19 09:07 Dose: 10 mg Multivit/Ca Carb/B Cmplx/FA/Prenat (Nephro-Evert -) 1 tablet PO DAILY [facility] Last Admin: 01/29/19 09:07 Dose: 1 tablet Mupirocin (Bactroban Ointment (For Decolonization) -) 1 applic NS BID [facility] Stop: 02/01/19 09:59 Last Admin: 01/29/19 09:47 Dose: 1 applic Nystatin (Mycostatin Ointment -) 1 applic TP BID [facility] Last Admin: 01/29/19 09:47 Dose: 1 applic Ondansetron HCl (Zofran -) 4 mg PO Q6H PRN PRN Reason: NAUSEA AND/OR VOMITING Rivaroxaban (Xarelto) 15 mg PO DAILY@1800 [facility] Last Admin: 01/28/19 18:02 Dose: 15 mg Sertraline HCl (Zoloft -) 50 mg PO DAILY [facility] Last Admin: 01/29/19 09:07 Dose: 50 mg Silver Sulfadiazine (Silvadene -) 1 applic TP BID [facility] Last Admin: 01/28/19 21:38 Dose: 1 applic GENERAL: Intubated and sedated HEAD: Normal with no signs of trauma. EYES: Pupils equal, round and sluggish reaction to light, sclera anicteric, conjunctiva clear. EARS, NOSE, THROAT: Orotracheal tube in place, no secretion present NECK: (+) significant increase in edema due to central stenosis LUNGS: Vented, bilateral rhonchi HEART: Irregular rhythm, normal rate, S1 and S2 without murmur, rub. ABDOMEN: Soft, obese, hypoactive bowel sounds, obese abdomen with unsymmetrical appearance UPPER EXTREMITIES: 1+ pulses, cool. No cyanosis. No clubbing. 3+ peripheral edema on the R, 1+ on the L. LOWER EXTREMITIES: 1+ pulses, warm, well-perfused. No calf tenderness. Trace peripheral edema. NEUROLOGICAL: Sedated SKIN: Cool, dry Laboratory Results - last 24 hr 01/28/19 01/28/19 01/28/19 12:15 17:46 18:10 WBC RBC Hgb Hct MCV MCH MCHC RDW Plt Count MPV Absolute Neuts (auto) Neutrophils % Lymphocytes % Monocytes % Eosinophils % Basophils % Nucleated RBC % Sodium 139 Potassium 3.3 L Chloride 102 Carbon Dioxide 27 Anion Gap 9 BUN 9.5 Creatinine 1.3 Est GFR (CKD-EPI)AfAm 47.80 Est GFR (CKD-EPI)NonAf 41.24 POC Glucometer 98 91 Random Glucose 112 H Calcium 8.5 Phosphorus Magnesium Total Bilirubin 1.0 AST 36 ALT 25 Alkaline Phosphatase 166 H Troponin I Total Protein 5.8 L Albumin 2.5 L 01/28/19 01/29/19 01/29/19 18:10 00:21 05:30 WBC 13.4 H RBC 3.53 L Hgb 10.7 Hct 33.8 MCV 95.7 MCH 30.2 MCHC 31.6 L RDW 19.8 H Plt Count 82 L MPV 9.0 Absolute Neuts (auto) 11.6 H Neutrophils % 86.4 H Lymphocytes % 6.7 L D Monocytes % 6.4 Eosinophils % 0.1 D Basophils % 0.4 Nucleated RBC % 0 Sodium 139 Potassium 3.3 L Chloride 102 Carbon Dioxide 27 Anion Gap 10 BUN 13.2 Creatinine 1.7 H Est GFR (CKD-EPI)AfAm 34.56 Est GFR (CKD-EPI)NonAf 29.82 POC Glucometer 134 Random Glucose 168 H Calcium 8.4 L Phosphorus 2.7 Magnesium 1.7 L Total Bilirubin 1.0 AST 28 ALT 21 Alkaline Phosphatase 156 H Troponin I 2.10 H* Total Protein 5.5 L Albumin 2.4 L 01/29/19 01/29/19 05:30 06:09 WBC 13.3 H RBC 3.22 L Hgb 9.8 L Hct 30.4 L MCV 94.3 MCH 30.4 MCHC 32.2 RDW 19.9 H Plt Count 88 L MPV 8.8 Absolute Neuts (auto) 11.3 H Neutrophils % 85.1 H Lymphocytes % 6.9 L Monocytes % 7.1 Eosinophils % 0.0 D Basophils % 0.9 Nucleated RBC % 0 Sodium Potassium Chloride Carbon Dioxide Anion Gap BUN Creatinine Est GFR (CKD-EPI)AfAm Est GFR (CKD-EPI)NonAf POC Glucometer 150 Random Glucose Calcium Phosphorus Magnesium Total Bilirubin AST ALT Alkaline Phosphatase Troponin I Total Protein Albumin ASSESSMENT/PLAN: Acute Respiratory Failure ESRD on HD Orthostatic Hypotension CHF DM Hypothyroidism COPD Afib on Xarelto History of DVTs Pulmonary Edema Multiple admissions for PNA with previous intubation S/P episode of unresponsiveness Wean pressors AC mode of vent Will need diuresis to improve pulmonary vascular congestion prior to extubation Start enteral feeds ABX per ID AC Follow cultures Due to central stenosis: will leave access in the femoral vein Requires ICU monitoring Dr Wiley Critical care time spent in reviewing chart, evaluating patient and formulating plan - 36 minutes.
[2019-01-29] MEDS: SILVER SULFADIAZINE 1% TOP CREAM 400 GM JAR TP SCH ×2 (10:04→21:05)
--- NOTE | 2019-01-29 10:18 | PN ---
Progress Note, Physician Chief Complaint: INTUBATED STILL NO ACUTE EVENTS OVERNIGHT - Current Medication List Current Medications: Active Medications Albumin Human (Albumin Human 25%) 12.5 gm IVPB Q30M [facility] Albuterol Sulfate (Ventolin 0.083% Nebulizer Soln -) 1 amp NEB Q6H PRN PRN Reason: SHORT OF BREATH/WHEEZING Chlorhexidine Gluconate (Hibiclens For Decolonization -) 1 applic TP HS [facility] Last Admin: 01/28/19 21:37 Dose: 1 applic Midazolam HCl 100 mg/ Sodium (Chloride) 100 mls @ 1 mls/hr IVPB TITR [facility]; Protocol Last Admin: 01/29/19 03:08 Dose: Not Given Piperacillin Sod/Tazobactam (Sod 2.25 gm/ Dextrose) 50 mls @ 100 mls/hr IVPB Q6H-IV [facility]; Protocol Last Admin: 01/29/19 09:06 Dose: 100 mls/hr Sodium Chloride (Normal Saline -) 250 mls @ 3,000 mls/hr IV PRN PRN PRN Reason: Hypotension during Dialysis Stop: 01/28/19 16:53 Norepinephrine Bitartrate 8, (000 mcg/ Dextrose) 500 mls @ 18.75 mls/hr IV TITR [facility]; Protocol Last Titration: 01/29/19 08:35 Dose: 7 mcg/min, 26.25 mls/hr Sodium Chloride (Normal Saline -) 250 mls @ 3,000 mls/hr IV PRN PRN PRN Reason: Hypotension during Dialysis Stop: 01/30/19 07:51 Insulin Aspart (Novolog Vial Sliding Scale -) 1 vial SQ Q6HPO [facility]; Protocol Last Admin: 01/29/19 06:11 Dose: Not Given Levothyroxine Sodium (Synthroid -) 50 mcg PO DAILY@0700 [facility] Last Admin: 01/29/19 06:12 Dose: 50 mcg Lidocaine/Prilocaine (Emla -) 1 applic TP QID PRN PRN Reason: HEMORRHOIDS Midodrine (Proamatine -) 10 mg PO TID-MID [facility] Last Admin: 01/29/19 09:07 Dose: 10 mg Multivit/Ca Carb/B Cmplx/FA/Prenat (Nephro-Evert -) 1 tablet PO DAILY [facility] Last Admin: 01/29/19 09:07 Dose: 1 tablet Mupirocin (Bactroban Ointment (For Decolonization) -) 1 applic NS BID [facility] Stop: 02/01/19 09:59 Last Admin: 01/29/19 09:47 Dose: 1 applic Nystatin (Mycostatin Ointment -) 1 applic TP BID [facility] Last Admin: 01/29/19 09:47 Dose: 1 applic Ondansetron HCl (Zofran -) 4 mg PO Q6H PRN PRN Reason: NAUSEA AND/OR VOMITING Rivaroxaban (Xarelto) 15 mg PO DAILY@1800 [facility] Last Admin: 01/28/19 18:02 Dose: 15 mg Sertraline HCl (Zoloft -) 50 mg PO DAILY [facility] Last Admin: 01/29/19 09:07 Dose: 50 mg Silver Sulfadiazine (Silvadene -) 1 applic TP BID [facility] Last Admin: 01/29/19 10:04 Dose: 1 applic - Objective Vital Signs: Vital Signs Temperature 99.4 F 01/29/19 07:00 Pulse Rate 113 H 01/29/19 08:35 Respiratory Rate 17 01/29/19 08:20 Blood Pressure 111/60 01/29/19 08:35 O2 Sat by Pulse Oximetry (%) 100 01/29/19 00:07 Constitutional: Yes: Moderate Distress Cardiovascular: Yes: Pulse Irregular Respiratory: Yes: Diminished, Mechanically Ventilated Gastrointestinal: Yes: Soft Genitourinary: Yes: Joshi Present Musculoskeletal: Yes: Muscle Weakness Edema: Yes Integumentary: Yes: Venous Stasis Changes Wound/Incision: Yes: Dressing Dry and Intact Neurological: Yes: Pre-Existing Deficit Labs: CBC, BMP 01/29/19 05:30 01/29/19 05:30 INR, PTT INR 1.76 (0.83-1.09) H 01/27/19 05:45 Problem List - Problems (1) Acute respiratory failure Code(s): J96.00 - ACUTE RESPIRATORY FAILURE, UNSP W HYPOXIA OR HYPERCAPNIA Qualifiers: Respiratory failure complication: hypoxia Qualified Code(s): J96.01 - Acute respiratory failure with hypoxia (2) ESRD on hemodialysis Code(s): N18.6 - END STAGE RENAL DISEASE; Z99.2 - DEPENDENCE ON RENAL DIALYSIS (3) Hypotension Code(s): I95.9 - HYPOTENSION, UNSPECIFIED Qualifiers: Hypotension type: unspecified hypotension type Qualified Code(s): I95.9 - Hypotension, unspecified (4) Acute exacerbation of congestive heart failure Code(s): I50.9 - HEART FAILURE, UNSPECIFIED (5) Acute on chronic respiratory failure with hypoxia and hypercapnia Code(s): J96.21 - ACUTE AND CHRONIC RESPIRATORY FAILURE WITH HYPOXIA; J96.22 - ACUTE AND CHRONIC RESPIRATORY FAILURE WITH HYPERCAPNIA (6) Afib Code(s): I48.91 - UNSPECIFIED ATRIAL FIBRILLATION (7) Functional quadriplegia Code(s): R53.2 - FUNCTIONAL QUADRIPLEGIA (8) H/O deep venous thrombosis Code(s): Z86.718 - PERSONAL HISTORY OF OTHER VENOUS THROMBOSIS AND EMBOLISM (9) Hypothyroid Code(s): E03.9 - HYPOTHYROIDISM, UNSPECIFIED Assessment/Plan bp support wean off as tolerated from vent d/w family bedside full code. check cultures check labs id and pulmonary consults appreciated dvt prophylaxis npo for now access needed will discuss with surgery
--- NOTE | 2019-01-29 10:27 | PN ---
Physical Exam: SUBJECTIVE: Patient seen and examined at the bedside. Remains intubated and sedated. Did not tolerate pressor weaning yesterday. Received dialysis yesterday with 1L removed. Today will get 1L removed via UF, no dialysis, will resume dialysis on Thursday. OBJECTIVE: Vital Signs Period Temp Pulse Resp BP Sys/Jhaveri Pulse Ox Last 24 Hr 98.9 F-100.0 F 98-118 10-31 98-126/50-98 100-100 GENERAL: Intubated and sedated HEAD: Normal with no signs of trauma. EYES: Pupils equal, round and sluggish reaction to light, sclera anicteric, conjunctiva clear. EARS, NOSE, THROAT: Orotracheal tube in place, no secretions present NECK: No JVD or masses noted LUNGS: Breath sounds equal, with mechanical breath sounds heard and coarse sounds throughout. Breath sounds improved HEART: Irregular rhythm, normal rate, S1 and S2 without murmur, rub. ABDOMEN: Soft, moderately distended, hypoactive bowel sounds, obese abdomen with non-symmetrical appearance EXTREMITIES: 3+ peripheral edema on the R, 1+ on the L on upper extremity. No calf tenderness. Trace peripheral edema on lower extremities. NEUROLOGICAL: Unable to assess SKIN: Cool, weaping skin, diffuse ecchymoses noted Laboratory Results - last 24 hr 01/28/19 01/28/19 01/28/19 12:15 17:46 18:10 WBC RBC Hgb Hct MCV MCH MCHC RDW Plt Count MPV Absolute Neuts (auto) Neutrophils % Lymphocytes % Monocytes % Eosinophils % Basophils % Nucleated RBC % Sodium 139 Potassium 3.3 L Chloride 102 Carbon Dioxide 27 Anion Gap 9 BUN 9.5 Creatinine 1.3 Est GFR (CKD-EPI)AfAm 47.80 Est GFR (CKD-EPI)NonAf 41.24 POC Glucometer 98 91 Random Glucose 112 H Calcium 8.5 Phosphorus Magnesium Total Bilirubin 1.0 AST 36 ALT 25 Alkaline Phosphatase 166 H Troponin I Total Protein 5.8 L Albumin 2.5 L 01/28/19 01/29/19 01/29/19 18:10 00:21 05:30 WBC 13.4 H RBC 3.53 L Hgb 10.7 Hct 33.8 MCV 95.7 MCH 30.2 MCHC 31.6 L RDW 19.8 H Plt Count 82 L MPV 9.0 Absolute Neuts (auto) 11.6 H Neutrophils % 86.4 H Lymphocytes % 6.7 L D Monocytes % 6.4 Eosinophils % 0.1 D Basophils % 0.4 Nucleated RBC % 0 Sodium 139 Potassium 3.3 L Chloride 102 Carbon Dioxide 27 Anion Gap 10 BUN 13.2 Creatinine 1.7 H Est GFR (CKD-EPI)AfAm 34.56 Est GFR (CKD-EPI)NonAf 29.82 POC Glucometer 134 Random Glucose 168 H Calcium 8.4 L Phosphorus 2.7 Magnesium 1.7 L Total Bilirubin 1.0 AST 28 ALT 21 Alkaline Phosphatase 156 H Troponin I 2.10 H* Total Protein 5.5 L Albumin 2.4 L 01/29/19 01/29/19 05:30 06:09 WBC 13.3 H RBC 3.22 L Hgb 9.8 L Hct 30.4 L MCV 94.3 MCH 30.4 MCHC 32.2 RDW 19.9 H Plt Count 88 L MPV 8.8 Absolute Neuts (auto) 11.3 H Neutrophils % 85.1 H Lymphocytes % 6.9 L Monocytes % 7.1 Eosinophils % 0.0 D Basophils % 0.9 Nucleated RBC % 0 Sodium Potassium Chloride Carbon Dioxide Anion Gap BUN Creatinine Est GFR (CKD-EPI)AfAm Est GFR (CKD-EPI)NonAf POC Glucometer 150 Random Glucose Calcium Phosphorus Magnesium Total Bilirubin AST ALT Alkaline Phosphatase Troponin I Total Protein Albumin Active Medications Generic Name Dose Route Start Last Admin Trade Name Freq PRN Reason Stop Dose Admin Albumin Human 12.5 gm 01/29/19 08:00 Albumin Human 25% IVPB Q30M [facility] Albuterol Sulfate 1 amp 01/27/19 01:54 Ventolin 0.083% Nebulizer Soln - NEB Q6H PRN SHORT OF BREATH/WHEEZING Chlorhexidine Gluconate 1 applic 01/27/19 22:00 01/28/19 21:37 Hibiclens For Decolonization - TP 1 applic HS [facility] Administration Midazolam HCl 100 mg/ Sodium 100 mls @ 1 mls/hr 01/26/19 21:45 01/29/19 03:08 Chloride IVPB Not Given TITR [facility] Protocol 1 MG/HR Piperacillin Sod/Tazobactam 50 mls @ 100 mls/hr 01/27/19 03:00 01/29/19 09:06 Sod 2.25 gm/ Dextrose IVPB 100 mls/hr Q6H-IV [facility] Administration Protocol Sodium Chloride 250 mls @ 3,000 mls/hr 01/27/19 16:52 Normal Saline - IV 01/28/19 16:53 PRN PRN Hypotension during Dialysis Norepinephrine Bitartrate 8, 500 mls @ 18.75 mls/hr 01/28/19 11:15 01/29/19 08:35 000 mcg/ Dextrose IV 7 mcg/min TITR [facility] 26.25 mls/hr Titration Protocol 5 MCG/MIN Sodium Chloride 250 mls @ 3,000 mls/hr 01/29/19 07:51 Normal Saline - IV 01/30/19 07:51 PRN PRN Hypotension during Dialysis Insulin Aspart 1 vial 01/27/19 12:00 01/29/19 06:11 Novolog Vial Sliding Scale - SQ Not Given Q6HPO [facility] Protocol Levothyroxine Sodium 50 mcg 01/27/19 07:00 01/29/19 06:12 Synthroid - PO 50 mcg DAILY@0700 [facility] Administration Lidocaine/Prilocaine 1 applic 01/27/19 01:55 Emla - TP QID PRN HEMORRHOIDS Midodrine 10 mg 01/27/19 14:30 01/29/19 09:07 Proamatine - PO 10 mg TID-MID [facility] Administration Multivit/Ca Carb/B Cmplx/FA/Prenat 1 tablet 01/27/19 10:00 01/29/19 09:07 Nephro-Evret - PO 1 tablet DAILY [facility] Administration Mupirocin 1 applic 01/27/19 10:00 01/29/19 09:47 Bactroban Ointment (For Decolonization) - NS 02/01/19 09:59 1 applic BID [facility] Administration Nystatin 1 applic 01/27/19 22:00 01/29/19 09:47 Mycostatin Ointment - TP 1 applic BID [facility] Administration Ondansetron HCl 4 mg 01/27/19 01:57 Zofran - PO Q6H PRN NAUSEA AND/OR VOMITING Rivaroxaban 15 mg 01/27/19 18:00 01/28/19 18:02 Xarelto PO 15 mg DAILY@1800 [facility] Administration Sertraline HCl 50 mg 01/27/19 10:00 01/29/19 09:07 Zoloft - PO 50 mg DAILY [facility] Administration Silver Sulfadiazine 1 applic 01/27/19 10:00 01/29/19 10:04 Silvadene - TP 1 applic BID [facility] Administration ASSESSMENT/PLAN: Argelia Patel is a 73 year old female with a PMHx of ESRD, Orthostatic Hypotension, CHF, DM, hypothyroid, COPD, Afib (on Xarelto), DVTs, Pulmonary Edema and multiple admissions for PNA (including intubation) admitted to the ICU for unresponsiveness secondary to acute respiratory failure likely from hypercapneia and hypotension from fluid removal during dialysis. Acute Hypercapneic Respiratory Failure Hypotension ESRD CHF DM Hypothyroidism Atrial fibrillation NEUROLOGIC - intubated and sedated - on Versed, will hold today to assess mental status and to give sedation vacation - head CT with no acute intracranial pathology, possible mastoiditis and sinusitis CARDIOLOGY - received 2 L of NS in the ED - on Levophed, required increased amount today to 8mcq, titrate down as tolerated, double concentrated to reduce fluid volume given - EKG showing afib with RVR with occasional PVCs, poor study - repeat EKG showing no acute changes from EKG done on 01/19/19, low voltage study , afib - troponins elevated at 0.18 trended up to 0.89 > 1.85 > 2.46 > 2.1, likely demand in setting of hypovolemia, downtrending - previous echo 12/08/18 showing normal EF, moderate to severe right ventricle dilation, increased right ventricular systolic pressure - monitor I+Os - digoxin level 0.10 - Cardiology consulted, appreciate recs - continue Xarelto for afib - if worsening hypotension, can consider milrinone for RV function RESPIRATORY - intubated - vent settings 450, rate 16, O2 30, PEEP 5 - original ABG showing pH 7.21, CO2 52.9, O2 142, respiratory acidosis and concurrent non anion gap metabolic acidosis in the setting of hypercapneia and renal failure - repeat ABG showing continuation of hypercapneia and acidosis, vent settings adjusted to increase rate and decrease CO2 - CXR showing increased congestion bilaterally, worse on L side, likely pleural layering as not necessary to increase O2 sat requirements RENAL - Dr. Molina consulted - conservative fluid replacement in the setting of ESRD - HD yesterday, removed 1L - today 1L removed via UF GASTROINTESTINAL - no acute issues - OG tube in GENITOURINARY - zhang in INFECTIOUS DISEASE - no WBC, afebrile - cannot exclude lung source or wound source - hx of cdiff, cautious approach to continuing antibiotics - blood cxs negative - vanco 1gm x1 given - random vanco level today 8.6, redose of vancomycin as per ID - zosyn 2.25gm q8h as recommended with CrCl 20 - 40 as per UptoDate - ID Consult ENDOCRINE - continue home Synthroid - BGM q6h - ISS HEMATOLOGY - no acute anemia, continue to monitor H/H - thrombocytopenia, continue to monitor F/E/N - no standing fluids, boluses as necessary with conservative fluid resuscitation in setting of ESRD - continue to monitor electrolytes and replete as necessary, hypomagnesemia noted and repleted, less aggressive hypokalemia and hypophospatemia replacement in setting of ESRD - Nepro enteral feeds LINES - L femoral central line placed 01/26, will need prolonged access due to difficulty in obtaining access elsewhere, stenosis centrally - R femoral Tesio catheter PROPHYLAXIS - home Xarelto CODE - full code DISPO - continue to monitor in ICU - Family discussion on goals of care Visit type - Emergency Visit Emergency Visit: No - New Patient This patient is new to me today: No - Critical Care Critical Care patient: Yes Total Critical Care Time (in minutes): 38 Critical Care Statement: The care of this patient involved high complexity decision making to prevent further life threatening deterioration of the patient 's condition and/or to evaluate & treat vital organ system(s) failure or risk of failure.
[2019-01-29] MEDS ORDERED: ACETAMINOPHEN 1000 MG/100 ML VIAL (NON FORMULARY) IVPB ONE (11:30)
[2019-01-29] MEDS ORDERED: SODIUM CHLORIDE 250 ML IV PRN ×2 (12:42)
[2019-01-29] MEDS: ALBUMIN HUMAN 25% 12.5 GM/50 ML VIAL IVPB SCH ×4 (12:45→14:15)
[2019-01-29] MEDS ORDERED: VANCOMYCIN 1 GM in D5W (PRE-DOCKED) 1,000 MG/250 ML IVPB SCH (14:00)
[2019-01-29] MEDS: RIVAROXABAN 15 MG TABLET PO SCH (18:30)
[2019-01-29] MEDS: CHLORHEXIDINE GLUCONATE 4% CLEANSER FOR DECOLONIZATION TP SCH (21:05)
[2019-01-30] MEDS: PIPERACILLIN/TAZOB 2.25 GM 2.25 GM in DEXTROSE 5%-WATER - 50 ML IVPB SCH ×3 (03:01→17:50)
[2019-01-30] MEDS: INSULIN SLIDING SCALE (NOVOLOG) 1 VIAL SQ SCH ×3 (05:57→18:16)
[2019-01-30] MEDS: LEVOTHYROXINE NA 50 MCG TABLET (FP) PO SCH (05:59)
[2019-01-30 06:58] LABS: HEMATOCRIT 28.6 % (32.4-45.2); HEMOGLOBIN 9.3 GM/dL (10.7-15.3); MCH 30.7 pg (25.7-33.7); MCHC 32.4 g/dl (32.0-36.0); MEAN CELL VOLUME 94.8 fl (80-96); MEAN PLT VOLUME 8.8 fl (7.5-11.1); PLATELET COUNT 99 K/MM3 (134-434); RBC 3.02 M/mm3 (3.60-5.2); RDW 19.8 % (11.6-15.6); WHITE BLOOD COUNT 10.3 K/mm3 (4.0-10.0)
[2019-01-30 07:09] LABS: BLOOD UREA NITROGEN 21.2 mg/dL (7-18); CALCIUM 8.6 mg/dL (8.5-10.1); CREATININE 2.2 mg/dL (0.55-1.3); MAGNESIUM 1.8 mg/dL (1.8-2.4); PHOSPHOROUS 2.8 mg/dL (2.5-4.9); POTASSIUM 3.5 mmol/L (3.5-5.1)
[2019-01-30] MEDS ORDERED: DEXTROSE 5%-WATER - 50 ML IVPB ONE ×3 (08:43→20:36)
[2019-01-30] MEDS ORDERED: PIPERACILLIN/TAZOBACTAM 2.25 GM VIAL IVPB ONE ×3 (08:43→20:36)
--- NOTE | 2019-01-30 08:52 | PN ---
Progress Note (short form) - Note Progress Note: Coverage for Dr. Molina Renal follow up for ESRD on HD Pt seen and examined in the ICU on vent, FiO2 is 30% s/p isolated UF yesterday with 2L removed remains on levophed 4mcg Vital Signs Temperature 99.3 F 01/30/19 07:00 Pulse Rate 83 01/30/19 07:00 Respiratory Rate 16 01/30/19 08:35 Blood Pressure 89/49 L 01/30/19 07:00 O2 Sat by Pulse Oximetry (%) 100 01/30/19 06:20 Intake & Output 01/27/19 01/28/19 01/29/19 01/30/19 23:59 23:59 23:59 23:59 Intake Total 1432 1693 2769 760 Output Total 0 1200 2300 0 Balance 1432 493 469 760 Weight 83.869 kg 83.461 kg 84.912 kg 83.597 kg NAD on Vent via ET tube RRR Dec BS + sacral edema CBC, BMP 01/30/19 05:25 01/30/19 05:25 Laboratory Tests 01/30/19 05:25 Calcium 8.6 Phosphorus 2.8 Magnesium 1.8 Current Medications Albuterol Sulfate (Ventolin 0.083% Nebulizer Soln -) 1 amp NEB Q6H PRN PRN Reason: SHORT OF BREATH/WHEEZING Chlorhexidine Gluconate (Hibiclens For Decolonization -) 1 applic TP HS [facility] Last Admin: 01/29/19 21:05 Dose: 1 applic Midazolam HCl 100 mg/ Sodium (Chloride) 100 mls @ 1 mls/hr IVPB TITR [facility]; Protocol Last Admin: 01/29/19 21:05 Dose: Not Given Piperacillin Sod/Tazobactam (Sod 2.25 gm/ Dextrose) 50 mls @ 100 mls/hr IVPB Q6H-IV [facility]; Protocol Last Admin: 01/30/19 03:01 Dose: 100 mls/hr Norepinephrine Bitartrate 8, (000 mcg/ Dextrose) 500 mls @ 18.75 mls/hr IV TITR [facility]; Protocol Last Titration: 01/30/19 07:00 Dose: 4 mcg/min, 15 mls/hr Sodium Chloride (Normal Saline -) 250 mls @ 3,000 mls/hr IV PRN PRN PRN Reason: Hypotension during Dialysis Stop: 01/30/19 12:41 Insulin Aspart (Novolog Vial Sliding Scale -) 1 vial SQ Q6HPO [facility]; Protocol Last Admin: 01/30/19 05:57 Dose: 2 units Levothyroxine Sodium (Synthroid -) 50 mcg PO DAILY@0700 [facility] Last Admin: 01/30/19 05:59 Dose: 50 mcg Lidocaine/Prilocaine (Emla -) 1 applic TP QID PRN PRN Reason: HEMORRHOIDS Midodrine (Proamatine -) 10 mg PO TID-MID [facility] Last Admin: 01/29/19 18:31 Dose: 10 mg Multivit/Ca Carb/B Cmplx/FA/Prenat (Nephro-Evert -) 1 tablet PO DAILY [facility] Last Admin: 01/29/19 09:07 Dose: 1 tablet Mupirocin (Bactroban Ointment (For Decolonization) -) 1 applic NS BID [facility] Stop: 02/01/19 09:59 Last Admin: 01/29/19 21:06 Dose: 1 applic Nystatin (Mycostatin Ointment -) 1 applic TP BID [facility] Last Admin: 01/29/19 21:06 Dose: 1 applic Ondansetron HCl (Zofran -) 4 mg PO Q6H PRN PRN Reason: NAUSEA AND/OR VOMITING Rivaroxaban (Xarelto) 15 mg PO DAILY@1800 [facility] Last Admin: 01/29/19 18:30 Dose: 15 mg Sertraline HCl (Zoloft -) 50 mg PO DAILY [facility] Last Admin: 01/29/19 09:07 Dose: 50 mg Silver Sulfadiazine (Silvadene -) 1 applic TP BID [facility] Last Admin: 01/29/19 21:05 Dose: 1 applic Vancomycin HCl (Vancomycin (Pre-Docked)) 1,000 mg IVPB DAILY@1400 [facility]; Protocol Impression 1. ESRD 2. change in mental status 3. resp failure requiring intubation 4. chf 5. dvt 6. anemia 7. a-fib 8. hypothyroid 9. pleural effusion Plan Tolerated isolated UF well yesterday, CXR is improved no acute need for HD or UF today Will reaccess in AM for additional dialysis continue vent support ICU monitoring Thank you Melquiades Montgomery DO
--- NOTE | 2019-01-30 08:59 | PN ---
Progress Note, Physician Chief Complaint: resp failure History of Present Illness: tolerated UF yesterday. remains on levophed. intubated - Current Medication List Current Medications: Active Medications Albuterol Sulfate (Ventolin 0.083% Nebulizer Soln -) 1 amp NEB Q6H PRN PRN Reason: SHORT OF BREATH/WHEEZING Chlorhexidine Gluconate (Hibiclens For Decolonization -) 1 applic TP HS [facility] Last Admin: 01/29/19 21:05 Dose: 1 applic Midazolam HCl 100 mg/ Sodium (Chloride) 100 mls @ 1 mls/hr IVPB TITR [facility]; Protocol Last Admin: 01/29/19 21:05 Dose: Not Given Piperacillin Sod/Tazobactam (Sod 2.25 gm/ Dextrose) 50 mls @ 100 mls/hr IVPB Q6H-IV [facility]; Protocol Last Admin: 01/30/19 03:01 Dose: 100 mls/hr Norepinephrine Bitartrate 8, (000 mcg/ Dextrose) 500 mls @ 18.75 mls/hr IV TITR [facility]; Protocol Last Titration: 01/30/19 07:00 Dose: 4 mcg/min, 15 mls/hr Sodium Chloride (Normal Saline -) 250 mls @ 3,000 mls/hr IV PRN PRN PRN Reason: Hypotension during Dialysis Stop: 01/30/19 12:41 Insulin Aspart (Novolog Vial Sliding Scale -) 1 vial SQ Q6HPO [facility]; Protocol Last Admin: 01/30/19 05:57 Dose: 2 units Levothyroxine Sodium (Synthroid -) 50 mcg PO DAILY@0700 [facility] Last Admin: 01/30/19 05:59 Dose: 50 mcg Lidocaine/Prilocaine (Emla -) 1 applic TP QID PRN PRN Reason: HEMORRHOIDS Midodrine (Proamatine -) 10 mg PO TID-MID [facility] Last Admin: 01/29/19 18:31 Dose: 10 mg Multivit/Ca Carb/B Cmplx/FA/Prenat (Nephro-Evert -) 1 tablet PO DAILY [facility] Last Admin: 01/29/19 09:07 Dose: 1 tablet Mupirocin (Bactroban Ointment (For Decolonization) -) 1 applic NS BID [facility] Stop: 02/01/19 09:59 Last Admin: 01/29/19 21:06 Dose: 1 applic Nystatin (Mycostatin Ointment -) 1 applic TP BID [facility] Last Admin: 01/29/19 21:06 Dose: 1 applic Ondansetron HCl (Zofran -) 4 mg PO Q6H PRN PRN Reason: NAUSEA AND/OR VOMITING Rivaroxaban (Xarelto) 15 mg PO DAILY@1800 [facility] Last Admin: 01/29/19 18:30 Dose: 15 mg Sertraline HCl (Zoloft -) 50 mg PO DAILY [facility] Last Admin: 01/29/19 09:07 Dose: 50 mg Silver Sulfadiazine (Silvadene -) 1 applic TP BID [facility] Last Admin: 01/29/19 21:05 Dose: 1 applic Vancomycin HCl (Vancomycin (Pre-Docked)) 1,000 mg IVPB DAILY@1400 [facility]; Protocol - Objective Vital Signs: Vital Signs Temperature 99.3 F 01/30/19 07:00 Pulse Rate 84 01/30/19 08:00 Respiratory Rate 16 01/30/19 08:35 Blood Pressure 100/55 L 01/30/19 08:00 O2 Sat by Pulse Oximetry (%) 100 01/30/19 06:20 Constitutional: Yes: No Distress, Calm, Obese Cardiovascular: Yes: Pulse Irregular (soft heart sounds), S1, S2. No: JVD ( prohibitive habitus/tds exam), Gallop, Murmur Respiratory: Yes: Regular, CTA Bilaterally. No: Accessory Muscle Use Extremities: No: Cold Edema: No Neurological: No: Alert, Oriented, Seizure Psychiatric: No: Agitated Labs: CBC, BMP 01/30/19 05:25 01/30/19 05:25 INR, PTT INR 1.76 (0.83-1.09) H 01/27/19 05:45 Assessment/Plan Echo 12/01: nl LV function, RV mod to severely dilated, RV function mod to severely reduced, mod dilated LA/RA, RVSP 40-50 mmHg, mod TR tele: AF, HR controlled, artifact IMP: -Acute on chronic hypoxic/hypercapneic respiratory failure at HD, with bradycardia (40s-50s) -possible RLL PNA, sepsis -NSTEMI (troponin to 2): most likely Type II secondary to acute strain from CHF/ pulm HTN and acute resp failure, vs sec to hypotension at time of arrest. -septic shock on Levophed, doubt cardiogenic shock here -HFpEF, pulmonary HTN, RV dysfunction -ESRD on HD -h/o DVT /PE on AC REC: -Vent support -Pressors to maintain MAP 60mmHg--tolerating Levophed without tachycardia. cont same (given possible recent ACS, if becomes tachycardic will have to reconsider- -possibly vasopressin). -If develops signs of cool extremities or worsening hypotension, consider trial of milrinone for RV function. -will attempt repeat echo for LV fxn/RWMA (likely to be TDS koko while intubated) -HD as per renal -Cont AC, may need NGT for Xarelto. -hold AVN blockers (hypotension), HRs ok -cont midodrine for bp support at HD -will defer ischemia evaluation as this will not spinning frame changer. she is at prohibitive risk for invasive tx strategy given extremely poor functional status with severe comorbidities at present. hypotension (requires midodrine for bp support at HD at baseline) will not tolerate signif b-blockade, though will try to give low dose if can tolerate, once she is off pressors. -no ASA for now given pt on Xarelto with mild anemia/thrombocytopenia (and likely dysfunctional PLTs in HD pt), and hi risk for bleeding at present -if she recovers from the acute illness will potentially reconsider above approach est time in data review, pt exam, and formulating mgmt plan of potentially life threatening medical problems = 35 min
[2019-01-30] MEDS: VITAMIN B COMP W-C 1 EA TABLET PO SCH (09:26)
[2019-01-30] MEDS: MIDODRINE HCL 5 MG TABLET PO SCH ×3 (09:26→17:50)
[2019-01-30] MEDS: MUPIROCIN 2% TOPICAL OINTMENT FOR DECOLONIZATION NS SCH ×2 (09:27→21:31)
[2019-01-30] MEDS: SILVER SULFADIAZINE 1% TOP CREAM 400 GM JAR TP SCH ×2 (09:28→21:32)
[2019-01-30] MEDS: NYSTATIN 100000 UNIT/GM TOPICAL OINTMENT 15 GM TUBE TP SCH ×2 (09:28→21:32)
--- NOTE | 2019-01-30 09:28 | PN ---
Teaching Attending Note Name of Resident: Elayne Jennings ATTENDING PHYSICIAN STATEMENT I saw and evaluated the patient. I reviewed the resident's note and discussed the case with the resident. I agree with the resident's findings and plan as documented. SUBJECTIVE: Patient seen and examined in the ICU. Remains intubated and sedated. AC Mode of vent, 30% FiO2. 4 mcq NE for hemodynamic support. CXR: slight improvement in the opacity on the right / left no change Intake & Output 01/27/19 01/28/19 01/29/19 01/30/19 23:59 23:59 23:59 23:59 Intake Total 1432 1693 2769 760 Output Total 0 1200 2300 0 Balance 1432 493 469 760 Weight 184 lb 14.4 oz 184 lb 187 lb 3.2 oz 184 lb 4.8 oz Last Vital Signs Temp Pulse Resp BP Pulse Ox 99.3 F 92 H 16 98/63 100 01/30/19 07:00 01/30/19 09:00 01/30/19 09:00 01/30/19 09:00 01/30/19 08:00 Active Medications Albuterol Sulfate (Ventolin 0.083% Nebulizer Soln -) 1 amp NEB Q6H PRN PRN Reason: SHORT OF BREATH/WHEEZING Chlorhexidine Gluconate (Hibiclens For Decolonization -) 1 applic TP HS [facility] Last Admin: 01/29/19 21:05 Dose: 1 applic Midazolam HCl 100 mg/ Sodium (Chloride) 100 mls @ 1 mls/hr IVPB TITR [facility]; Protocol Last Admin: 01/29/19 21:05 Dose: Not Given Piperacillin Sod/Tazobactam (Sod 2.25 gm/ Dextrose) 50 mls @ 100 mls/hr IVPB Q6H-IV [facility]; Protocol Last Admin: 01/30/19 09:18 Dose: 100 mls/hr Norepinephrine Bitartrate 8, (000 mcg/ Dextrose) 500 mls @ 18.75 mls/hr IV TITR [facility]; Protocol Last Titration: 01/30/19 07:00 Dose: 4 mcg/min, 15 mls/hr Sodium Chloride (Normal Saline -) 250 mls @ 3,000 mls/hr IV PRN PRN PRN Reason: Hypotension during Dialysis Stop: 01/30/19 12:41 Insulin Aspart (Novolog Vial Sliding Scale -) 1 vial SQ Q6HPO [facility]; Protocol Last Admin: 01/30/19 05:57 Dose: 2 units Levothyroxine Sodium (Synthroid -) 50 mcg PO DAILY@0700 [facility] Last Admin: 01/30/19 05:59 Dose: 50 mcg Lidocaine/Prilocaine (Emla -) 1 applic TP QID PRN PRN Reason: HEMORRHOIDS Midodrine (Proamatine -) 10 mg PO TID-MID [facility] Last Admin: 01/30/19 09:26 Dose: 10 mg Multivit/Ca Carb/B Cmplx/FA/Prenat (Nephro-Evert -) 1 tablet PO DAILY [facility] Last Admin: 01/30/19 09:26 Dose: 1 tablet Mupirocin (Bactroban Ointment (For Decolonization) -) 1 applic NS BID [facility] Stop: 02/01/19 09:59 Last Admin: 01/30/19 09:27 Dose: 1 applic Nystatin (Mycostatin Ointment -) 1 applic TP BID [facility] Last Admin: 01/30/19 09:28 Dose: 1 applic Ondansetron HCl (Zofran -) 4 mg PO Q6H PRN PRN Reason: NAUSEA AND/OR VOMITING Rivaroxaban (Xarelto) 15 mg PO DAILY@1800 [facility] Last Admin: 01/29/19 18:30 Dose: 15 mg Sertraline HCl (Zoloft -) 50 mg PO DAILY [facility] Last Admin: 01/29/19 09:07 Dose: 50 mg Silver Sulfadiazine (Silvadene -) 1 applic TP BID [facility] Last Admin: 01/30/19 09:28 Dose: 1 applic Vancomycin HCl (Vancomycin (Pre-Docked)) 1,000 mg IVPB DAILY@1400 [facility]; Protocol GENERAL: Intubated and sedated HEAD: Normal with no signs of trauma. EYES: Pupils equal, round and sluggish reaction to light, sclera anicteric, conjunctiva clear. EARS, NOSE, THROAT: Orotracheal tube in place, no secretion present NECK: (+) significant increase in edema due to central stenosis LUNGS: Vented, bilateral rhonchi HEART: Irregular rhythm, normal rate, S1 and S2 without murmur, rub. ABDOMEN: Soft, obese, hypoactive bowel sounds, obese abdomen with unsymmetrical appearance UPPER EXTREMITIES: 1+ pulses, cool. No cyanosis. No clubbing. 3+ peripheral edema on the R, 1+ on the L. LOWER EXTREMITIES: 1+ pulses, warm, well-perfused. No calf tenderness. Trace peripheral edema. NEUROLOGICAL: Sedated SKIN: Cool, dry Laboratory Results - last 24 hr 01/29/19 01/29/19 01/29/19 12:00 17:31 23:41 WBC RBC Hgb Hct MCV MCH MCHC RDW Plt Count MPV Sodium Potassium Chloride Carbon Dioxide Anion Gap BUN Creatinine Est GFR (CKD-EPI)AfAm Est GFR (CKD-EPI)NonAf POC Glucometer 199 190 Random Glucose Calcium Phosphorus Magnesium Random Vancomycin 8.6 L 01/30/19 01/30/19 01/30/19 05:25 05:25 05:25 WBC 10.3 H RBC 3.02 L Hgb 9.3 L Hct 28.6 L MCV 94.8 MCH 30.7 MCHC 32.4 RDW 19.8 H Plt Count 99 L MPV 8.8 Sodium 136 Potassium 3.5 Chloride 99 Carbon Dioxide 28 Anion Gap 10 BUN 21.2 H Creatinine 2.2 H Est GFR (CKD-EPI)AfAm 25.30 Est GFR (CKD-EPI)NonAf 21.83 POC Glucometer Random Glucose 174 H Calcium 8.6 Phosphorus 2.8 Magnesium 1.8 Random Vancomycin 16.6 L 01/30/19 05:32 WBC RBC Hgb Hct MCV MCH MCHC RDW Plt Count MPV Sodium Potassium Chloride Carbon Dioxide Anion Gap BUN Creatinine Est GFR (CKD-EPI)AfAm Est GFR (CKD-EPI)NonAf POC Glucometer 179 Random Glucose Calcium Phosphorus Magnesium Random Vancomycin ASSESSMENT/PLAN: Acute Respiratory Failure ESRD on HD Orthostatic Hypotension CHF DM Hypothyroidism COPD Afib on Xarelto History of DVTs Pulmonary Edema Multiple admissions for PNA with previous intubation S/P episode of unresponsiveness Wean pressors AC mode of vent Will need diuresis to improve pulmonary vascular congestion prior to extubation Start enteral feeds ABX per ID AC Follow cultures Due to central stenosis: will leave access in the femoral vein Requires ICU monitoring GOC being discussed Dr Wiley Critical care time spent in reviewing chart, evaluating patient and formulating plan - 36 minutes.
[2019-01-30] MEDS: SERTRALINE HCL 50 MG TABLET (FP) PO SCH (09:29)
--- NOTE | 2019-01-30 09:38 | PN ---
Progress Note (short form) - Note Progress Note: remains lethargic remains intubated on levophed opens eyes sedation now d/mariah fever yesterday, received vancomycin, now resolved, repeat cultures sent Vital Signs Period Temp Pulse Resp BP Sys/Jhaveri Pulse Ox Last 24 Hr 99 F-101.2 F 77-106 15-22 89-113/49-77 100-100 cor-rrr lungs decreased bs at bases abd soft,nt ext swelling of arms unchanged +femoral lines CBC, BMP 01/30/19 05:25 01/30/19 05:25 Microbiology 01/26/19 23:05 Blood - Peripheral Venous Blood Culture - Preliminary NO GROWTH OBTAINED AFTER 72 HOURS, INCUBATION TO CONTINUE FOR 2 DAYS. 01/26/19 23:00 Blood - Peripheral Venous Blood Culture - Preliminary NO GROWTH OBTAINED AFTER 72 HOURS, INCUBATION TO CONTINUE FOR 2 DAYS. Laboratory Tests 01/30/19 05:25 Random Vancomycin 16.6 L a/p hypotension- remains pressor dependent midodrine resumed hypotension- ?volume status due to HD, vs infection esrd/hd-per renal history of DVT no venous access in upper extremities, all lines are femoral consider repeat head ct if mental status doesnot improve repeat vancomycin level in am, redose if less then 15 overall prognosis is poor
[2019-01-30] MEDS ORDERED: VANCOMYCIN 1 GM in D5W (PRE-DOCKED) 1,000 MG/250 ML IVPB SCH ×2 (10:00→14:00)
--- NOTE | 2019-01-30 10:05 | PN ---
Progress Note, Physician Chief Complaint: MORE ALERT TODAY STILL INTUBATED FIO2 30% FAMILY BEDSIDE - Current Medication List Current Medications: Active Medications Albuterol Sulfate (Ventolin 0.083% Nebulizer Soln -) 1 amp NEB Q6H PRN PRN Reason: SHORT OF BREATH/WHEEZING Chlorhexidine Gluconate (Hibiclens For Decolonization -) 1 applic TP HS [facility] Last Admin: 01/29/19 21:05 Dose: 1 applic Midazolam HCl 100 mg/ Sodium (Chloride) 100 mls @ 1 mls/hr IVPB TITR [facility]; Protocol Last Admin: 01/29/19 21:05 Dose: Not Given Norepinephrine Bitartrate 8, (000 mcg/ Dextrose) 500 mls @ 18.75 mls/hr IV TITR [facility]; Protocol Last Titration: 01/30/19 07:00 Dose: 4 mcg/min, 15 mls/hr Sodium Chloride (Normal Saline -) 250 mls @ 3,000 mls/hr IV PRN PRN PRN Reason: Hypotension during Dialysis Stop: 01/30/19 12:41 Piperacillin Sod/Tazobactam (Sod 2.25 gm/ Dextrose) 50 mls @ 100 mls/hr IVPB Q8H-IV [facility]; Protocol Insulin Aspart (Novolog Vial Sliding Scale -) 1 vial SQ Q6HPO [facility]; Protocol Last Admin: 01/30/19 05:57 Dose: 2 units Levothyroxine Sodium (Synthroid -) 50 mcg PO DAILY@0700 [facility] Last Admin: 01/30/19 05:59 Dose: 50 mcg Lidocaine/Prilocaine (Emla -) 1 applic TP QID PRN PRN Reason: HEMORRHOIDS Midodrine (Proamatine -) 10 mg PO TID-MID [facility] Last Admin: 01/30/19 09:26 Dose: 10 mg Multivit/Ca Carb/B Cmplx/FA/Prenat (Nephro-Evert -) 1 tablet PO DAILY [facility] Last Admin: 01/30/19 09:26 Dose: 1 tablet Mupirocin (Bactroban Ointment (For Decolonization) -) 1 applic NS BID [facility] Stop: 02/01/19 09:59 Last Admin: 01/30/19 09:27 Dose: 1 applic Nystatin (Mycostatin Ointment -) 1 applic TP BID [facility] Last Admin: 01/30/19 09:28 Dose: 1 applic Ondansetron HCl (Zofran -) 4 mg PO Q6H PRN PRN Reason: NAUSEA AND/OR VOMITING Rivaroxaban (Xarelto) 15 mg PO DAILY@1800 [facility] Last Admin: 01/29/19 18:30 Dose: 15 mg Sertraline HCl (Zoloft -) 50 mg PO DAILY [facility] Last Admin: 01/30/19 09:29 Dose: 50 mg Silver Sulfadiazine (Silvadene -) 1 applic TP BID [facility] Last Admin: 01/30/19 09:28 Dose: 1 applic - Objective Vital Signs: Vital Signs Temperature 99.3 F 01/30/19 07:00 Pulse Rate 92 H 01/30/19 09:00 Respiratory Rate 16 01/30/19 09:00 Blood Pressure 98/63 01/30/19 09:00 O2 Sat by Pulse Oximetry (%) 100 01/30/19 08:00 Constitutional: Yes: Mild Distress HENT: Yes: Other Cardiovascular: Yes: Pulse Irregular Respiratory: Yes: Mechanically Ventilated, Rhonchi Gastrointestinal: Yes: Soft Genitourinary: Yes: Incontinence, Other Musculoskeletal: Yes: Muscle Weakness Extremities: Yes: Other Integumentary: Yes: Rash Wound/Incision: Yes: Dressing Dry and Intact Neurological: Yes: Pre-Existing Deficit ...Motor Strength: LLE, RLE Psychiatric: Yes: Other Labs: CBC, BMP 01/30/19 05:25 01/30/19 05:25 INR, PTT INR 1.76 (0.83-1.09) H 01/27/19 05:45 Problem List - Problems (1) Acute respiratory failure Code(s): J96.00 - ACUTE RESPIRATORY FAILURE, UNSP W HYPOXIA OR HYPERCAPNIA Qualifiers: Respiratory failure complication: hypoxia Qualified Code(s): J96.01 - Acute respiratory failure with hypoxia (2) ESRD on hemodialysis Code(s): N18.6 - END STAGE RENAL DISEASE; Z99.2 - DEPENDENCE ON RENAL DIALYSIS (3) Hypotension Code(s): I95.9 - HYPOTENSION, UNSPECIFIED Qualifiers: Hypotension type: unspecified hypotension type Qualified Code(s): I95.9 - Hypotension, unspecified (4) Acute exacerbation of congestive heart failure Code(s): I50.9 - HEART FAILURE, UNSPECIFIED (5) Acute on chronic respiratory failure with hypoxia and hypercapnia Code(s): J96.21 - ACUTE AND CHRONIC RESPIRATORY FAILURE WITH HYPOXIA; J96.22 - ACUTE AND CHRONIC RESPIRATORY FAILURE WITH HYPERCAPNIA (6) Afib Code(s): I48.91 - UNSPECIFIED ATRIAL FIBRILLATION (7) Functional quadriplegia Code(s): R53.2 - FUNCTIONAL QUADRIPLEGIA (8) H/O deep venous thrombosis Code(s): Z86.718 - PERSONAL HISTORY OF OTHER VENOUS THROMBOSIS AND EMBOLISM (9) Hypothyroid Code(s): E03.9 - HYPOTHYROIDISM, UNSPECIFIED Assessment/Plan VENT DEPENDENT WILL NEED TO DIURESE PER PULMONARY FOR SAFER EXTUBATION. IV ABX PER ID F/U CULTURES LABS REVIEWED HD PER RENAL FULL CODE STATUS D/W TITUS [place]
--- NOTE | 2019-01-30 10:09 | PN ---
Physical Exam: SUBJECTIVE: Patient seen and examined at bedside, no acute events overnight. Patient is intubated and Versed was stopped yesterday but the patient is still very sleepy/ unresponsive. Patient still on levophed ~3-4, plan to wean as tolerated. When patient more alert, will assess ability to breath without vent. OBJECTIVE: Vital Signs Period Temp Pulse Resp BP Sys/Jhaveri Pulse Ox Last 24 Hr 99 F-100.8 F 77-106 15-22 89-113/49-77 100-100 GENERAL: Intubated and sedated HEAD: Normal with no signs of trauma. EYES: Pupils equal, round and sluggish reaction to light, sclera anicteric, conjunctiva clear. EARS, NOSE, THROAT: Orotracheal tube in place, no secretions present NECK: No JVD or masses noted LUNGS: Breath sounds equal, with mechanical breath sounds heard and coarse sounds throughout. Breath sounds improved HEART: Irregular rhythm, normal rate, S1 and S2 without murmur, rub. ABDOMEN: Soft, moderately distended, hypoactive bowel sounds, obese abdomen with non-symmetrical appearance EXTREMITIES: 3+ peripheral edema on the R, 1+ on the L on upper extremity. No calf tenderness. Trace peripheral edema on lower extremities. NEUROLOGICAL: Unable to assess SKIN: Cool, weaping skin, diffuse ecchymoses noted Laboratory Results - last 24 hr 01/29/19 01/29/19 01/29/19 12:00 17:31 23:41 WBC RBC Hgb Hct MCV MCH MCHC RDW Plt Count MPV Sodium Potassium Chloride Carbon Dioxide Anion Gap BUN Creatinine Est GFR (CKD-EPI)AfAm Est GFR (CKD-EPI)NonAf POC Glucometer 199 190 Random Glucose Calcium Phosphorus Magnesium Random Vancomycin 8.6 L 01/30/19 01/30/19 01/30/19 05:25 05:25 05:25 WBC 10.3 H RBC 3.02 L Hgb 9.3 L Hct 28.6 L MCV 94.8 MCH 30.7 MCHC 32.4 RDW 19.8 H Plt Count 99 L MPV 8.8 Sodium 136 Potassium 3.5 Chloride 99 Carbon Dioxide 28 Anion Gap 10 BUN 21.2 H Creatinine 2.2 H Est GFR (CKD-EPI)AfAm 25.30 Est GFR (CKD-EPI)NonAf 21.83 POC Glucometer Random Glucose 174 H Calcium 8.6 Phosphorus 2.8 Magnesium 1.8 Random Vancomycin 16.6 L 01/30/19 05:32 WBC RBC Hgb Hct MCV MCH MCHC RDW Plt Count MPV Sodium Potassium Chloride Carbon Dioxide Anion Gap BUN Creatinine Est GFR (CKD-EPI)AfAm Est GFR (CKD-EPI)NonAf POC Glucometer 179 Random Glucose Calcium Phosphorus Magnesium Random Vancomycin Active Medications Generic Name Dose Route Start Last Admin Trade Name Freq PRN Reason Stop Dose Admin Albuterol Sulfate 1 amp 01/27/19 01:54 Ventolin 0.083% Nebulizer Soln - NEB Q6H PRN SHORT OF BREATH/WHEEZING Chlorhexidine Gluconate 1 applic 01/27/19 22:00 01/29/19 21:05 Hibiclens For Decolonization - TP 1 applic HS NAHEED Administration Midazolam HCl 100 mg/ Sodium 100 mls @ 1 mls/hr 01/26/19 21:45 01/29/19 21:05 Chloride IVPB Not Given TITR NAHEED Protocol 1 MG/HR Norepinephrine Bitartrate 8, 500 mls @ 18.75 mls/hr 01/28/19 11:15 01/30/19 07:00 000 mcg/ Dextrose IV 4 mcg/min TITR NAHEED 15 mls/hr Titration Protocol 5 MCG/MIN Sodium Chloride 250 mls @ 3,000 mls/hr 01/29/19 12:42 Normal Saline - IV 01/30/19 12:41 PRN PRN Hypotension during Dialysis Piperacillin Sod/Tazobactam 50 mls @ 100 mls/hr 01/30/19 18:00 Sod 2.25 gm/ Dextrose IVPB Q8H-IV NAHEED Protocol Insulin Aspart 1 vial 01/27/19 12:00 01/30/19 05:57 Novolog Vial Sliding Scale - SQ 2 units Q6HPO NAHEED Administration Protocol Levothyroxine Sodium 50 mcg 01/27/19 07:00 01/30/19 05:59 Synthroid - PO 50 mcg DAILY@0700 [facility] Administration Lidocaine/Prilocaine 1 applic 01/27/19 01:55 Emla - TP QID PRN HEMORRHOIDS Midodrine 10 mg 01/27/19 14:30 01/30/19 09:26 Proamatine - PO 10 mg TID-MID NAHEED Administration Multivit/Ca Carb/B Cmplx/FA/Prenat 1 tablet 01/27/19 10:00 01/30/19 09:26 Nephro-Evert - PO 1 tablet DAILY [facility] Administration Mupirocin 1 applic 01/27/19 10:00 01/30/19 09:27 Bactroban Ointment (For Decolonization) - NS 02/01/19 09:59 1 applic BID NA[facility]ED Administration Nystatin 1 applic 01/27/19 22:00 01/30/19 09:28 Mycostatin Ointment - TP 1 applic BID [facility] Administration Ondansetron HCl 4 mg 01/27/19 01:57 Zofran - PO Q6H PRN NAUSEA AND/OR VOMITING Rivaroxaban 15 mg 01/27/19 18:00 01/29/19 18:30 Xarelto PO 15 mg DAILY@1800 [facility] Administration Sertraline HCl 50 mg 01/27/19 10:00 01/30/19 09:29 Zoloft - PO 50 mg DAILY [facility]ED Administration Silver Sulfadiazine 1 applic 01/27/19 10:00 01/30/19 09:28 Silvadene - TP 1 applic BID NA[facility] Administration ASSESSMENT/PLAN: Argelia Patel is a 73 year old female with a PMHx of ESRD, Orthostatic Hypotension, CHF, DM, hypothyroid, COPD, Afib (on Xarelto), DVTs, Pulmonary Edema and multiple admissions for PNA (including intubation) admitted to the ICU for unresponsiveness secondary to acute respiratory failure likely from hypercapneia and hypotension from fluid removal during dialysis. Acute Hypercapneic Respiratory Failure Hypotension ESRD CHF DM Hypothyroidism Atrial fibrillation NEUROLOGIC - intubated and sedated - holding Versed to assess mental status and to give sedation vacation - head CT with no acute intracranial pathology, possible mastoiditis and sinusitis CARDIOLOGY - received 2 L of NS in the ED - on Levophed,on 4mcq this morning, titrate down as tolerated, double concentrated to reduce fluid volume given - EKG showing afib with RVR with occasional PVCs, poor study - repeat EKG showing no acute changes from EKG done on 01/19/19, low voltage study , afib - troponins elevated at 0.18 trended up to 0.89 > 1.85 > 2.46 > 2.1, likely demand in setting of hypovolemia, downtrending - previous echo 12/08/18 showing normal EF, moderate to severe right ventricle dilation, increased right ventricular systolic pressure - monitor I+Os - digoxin level 0.10 - Cardiology consulted, appreciate recs - continue Xarelto for afib - if worsening hypotension, can consider milrinone for RV function RESPIRATORY - intubated - vent settings 450, rate 16, O2 30, PEEP 5 - original ABG showing pH 7.21, CO2 52.9, O2 142, respiratory acidosis and concurrent non anion gap metabolic acidosis in the setting of hypercapneia and renal failure - repeat ABG showing continuation of hypercapneia and acidosis, vent settings adjusted to increase rate and decrease CO2 - CXR showing increased congestion bilaterally, worse on L side, likely pleural layering as not necessary to increase O2 sat requirements RENAL - Dr. Molina consulted - conservative fluid replacement in the setting of ESRD - HD Thursday, removed 1L - Thursday 1L removed via UF - Will receive HD tomorrow as per [facility] schedule GASTROINTESTINAL - no acute issues - OG tube in, getting tube feeds GENITOURINARY - zhang in INFECTIOUS DISEASE - hypotensive, no WBC, afebrile - unclear if infection is contributing to low BP, cannot r/o lung source or wound source - hx of cdiff, cautious approach to continuing antibiotics - blood cxs negative - random vanco level today 16.6, redose if random vanco level <15 - continue vancomycin - zosyn 2.25gm q8h as recommended with CrCl 20 - 40 as per UptoDate - ID following, appreciate recommendations ENDOCRINE - continue home Synthroid - BGM q6h - ISS HEMATOLOGY - no acute anemia, continue to monitor H/H - thrombocytopenia, continue to monitor F/E/N - no standing fluids, boluses as necessary with conservative fluid resuscitation in setting of ESRD - continue to monitor electrolytes and replete as necessary, hypomagnesemia noted and repleted, less aggressive hypokalemia and hypophospatemia replacement in setting of ESRD - Nepro enteral feeds LINES - L femoral central line placed 01/26, will need prolonged access due to difficulty in obtaining access elsewhere, stenosis centrally - R femoral Tesio catheter PROPHYLAXIS - home Xarelto CODE - full code DISPO - continue to monitor in ICU - Family discussion on goals of care Visit type - Emergency Visit Emergency Visit: Yes ED Registration Date: 01/26/19 Care time: The patient presented to the Emergency Department on the above date and was hospitalized for further evaluation of their emergent condition. - New Patient This patient is new to me today: Yes Date on this admission: 01/30/19 - Critical Care Critical Care patient: Yes Total Critical Care Time (in minutes): 40 Critical Care Statement: The care of this patient involved high complexity decision making to prevent further life threatening deterioration of the patient 's condition and/or to evaluate & treat vital organ system(s) failure or risk of failure. ATTENDING PHYSICIAN STATEMENT I saw and evaluated the patient. I reviewed the resident's note and discussed the case with the resident. I agree with the resident's findings and plan as documented. SUBJECTIVE: OBJECTIVE: ASSESSMENT AND PLAN:
--- NOTE | 2019-01-30 11:40 | EKG ---
Test Reason : Blood Pressure : / mmHG Vent. Rate : 104 BPM Atrial Rate : 059 BPM P-R Int : 000 ms QRS Dur : 070 ms QT Int : 304 ms P-R-T Axes : 000 171 -23 degrees QTc Int : 399 ms SUSPECT ARM LEAD REVERSAL, INTERPRETATION ASSUMES NO REVERSAL ATRIAL FIBRILLATION WITH RAPID VENTRICULAR RESPONSE WITH PREMATURE VENTRICULAR OR ABERRANTLY CONDUCTED COMPLEXES LOW VOLTAGE QRS POSSIBLE INFERIOR INFARCT , AGE UNDETERMINED ANTEROLATERAL INFARCT (CITED ON OR BEFORE 28-JAN-2019) ABNORMAL ECG WHEN COMPARED WITH ECG OF 27-JAN-2019 02:08, QRS AXIS SHIFTED RIGHT ST NOW DEPRESSED IN LATERAL LEADS QT HAS LENGTHENED Confirmed by TRENT LOYOLA, CODY ([id number]) on 01/30/2019 11:40:27 AM Referred By: TIFFANY BLACKMON Confirmed By:CODY NEWMAN MD
[2019-01-30] MEDS: NOREPINEPHRINE BITARTRATE 8,000 MCG in DEXTROSE 5%-WATER - 492 ML IV SCH (14:51)
[2019-01-30] MEDS ORDERED: PT OWN MED DRAWER 7, Y5N ONE (18:12)
[2019-01-30] MEDS: RIVAROXABAN 15 MG TABLET PO SCH (18:13)
[2019-01-30] MEDS: CHLORHEXIDINE GLUCONATE 4% CLEANSER FOR DECOLONIZATION TP SCH (21:31)
[2019-01-31] MEDS: ACETAMINOPHEN 325 MG TABLET (FP) PO PRN
[2019-01-31] MEDS ORDERED: MIDAZOLAM IN 0.9 % SOD.CHLORID 1 MG/1 ML PLAST..BAG ONE (00:15)
[2019-01-31] MEDS: MIDAZOLAM 100 MG in SODIUM CHLORIDE 100 ML IVPB SCH (00:17)
[2019-01-31] MEDS: INSULIN SLIDING SCALE (NOVOLOG) 1 VIAL SQ SCH ×4 (00:26→17:36)
[2019-01-31] MEDS: PIPERACILLIN/TAZOB 2.25 GM 2.25 GM in DEXTROSE 5%-WATER - 50 ML IVPB SCH ×3 (01:44→17:36)
[2019-01-31] MEDS: LEVOTHYROXINE NA 50 MCG TABLET (FP) PO SCH (06:15)
[2019-01-31 06:33] LABS: HEMATOCRIT 26.7 % (32.4-45.2); HEMOGLOBIN 8.7 GM/dL (10.7-15.3); MCH 30.6 pg (25.7-33.7); MCHC 32.4 g/dl (32.0-36.0); MEAN CELL VOLUME 94.5 fl (80-96); MEAN PLT VOLUME 8.8 fl (7.5-11.1); PLATELET COUNT 110 K/MM3 (134-434); RBC 2.83 M/mm3 (3.60-5.2); RDW 19.1 % (11.6-15.6); WHITE BLOOD COUNT 6.5 K/mm3 (4.0-10.0)
[2019-01-31 06:48] LABS: BILIRUBIN,TOTAL 0.8 mg/dL (0.2-1); BLOOD UREA NITROGEN 30.4 mg/dL (7-18); CALCIUM 8.9 mg/dL (8.5-10.1); CREATININE 2.6 mg/dL (0.55-1.3); POTASSIUM 3.4 mmol/L (3.5-5.1); TOT PROT 5.1 g/dl (6.4-8.2)
[2019-01-31] MEDS ORDERED: PIPERACILLIN/TAZOBACTAM 2.25 GM VIAL IVPB ONE ×3 (08:09→23:35)
[2019-01-31] MEDS ORDERED: DEXTROSE 5%-WATER - 50 ML IVPB ONE ×3 (08:10→23:35)
[2019-01-31] MEDS: SERTRALINE HCL 50 MG TABLET (FP) PO SCH (09:07)
[2019-01-31] MEDS: VITAMIN B COMP W-C 1 EA TABLET PO SCH (09:07)
[2019-01-31] MEDS: SILVER SULFADIAZINE 1% TOP CREAM 400 GM JAR TP SCH (09:08)
[2019-01-31] MEDS: MUPIROCIN 2% TOPICAL OINTMENT FOR DECOLONIZATION NS SCH (09:09)
[2019-01-31] MEDS: NYSTATIN 100000 UNIT/GM TOPICAL OINTMENT 15 GM TUBE TP SCH (09:09)
--- NOTE | 2019-01-31 09:40 | PN ---
Progress Note (short form) - Note Progress Note: remains lethargic remains intubated on levophed opens eyes to nam was on versed last night, now stopped Vital Signs Period Temp Pulse Resp BP Sys/Jhaveri Pulse Ox Last 24 Hr 97.2 F-100.1 F 70-88 16-18 94-110/46-62 97-100 orally intubated cor-rrr lungs decreased bs at bases abd soft,bilateral femoral lines ext +edema of the hands right greater then left 01/31/19 05:20 01/31/19 05:20 Microbiology 01/26/19 23:05 Blood - Peripheral Venous Blood Culture - Preliminary NO GROWTH OBTAINED AFTER 96 HOURS, INCUBATION TO CONTINUE FOR 1 DAYS. 01/26/19 23:00 Blood - Peripheral Venous Blood Culture - Preliminary NO GROWTH OBTAINED AFTER 96 HOURS, INCUBATION TO CONTINUE FOR 1 DAYS. 01/29/19 12:00 Blood - Peripheral Venous Blood Culture - Preliminary NO GROWTH OBTAINED AFTER 24 HOURS, INCUBATION TO CONTINUE FOR 4 DAYS. 01/29/19 12:00 Blood - Peripheral Venous Blood Culture - Preliminary NO GROWTH OBTAINED AFTER 24 HOURS, INCUBATION TO CONTINUE FOR 4 DAYS. Current Medications Acetaminophen (Tylenol -) 650 mg PO Q4H PRN PRN Reason: PAIN Last Admin: 01/31/19 00:00 Dose: 650 mg Albuterol Sulfate (Ventolin 0.083% Nebulizer Soln -) 1 amp NEB Q6H PRN PRN Reason: SHORT OF BREATH/WHEEZING Chlorhexidine Gluconate (Peridex -) 15 ml MM BID NAHEED Midazolam HCl 100 mg/ Sodium (Chloride) 100 mls @ 1 mls/hr IVPB TITR [facility]HEED; Protocol Last Titration: 01/31/19 07:42 Dose: 0 mg/hr, 0 mls/hr Norepinephrine Bitartrate 8, (000 mcg/ Dextrose) 500 mls @ 18.75 mls/hr IV TITR [facility]ED; Protocol Last Titration: 01/31/19 07:41 Dose: 2 mcg/min, 7.5 mls/hr Piperacillin Sod/Tazobactam (Sod 2.25 gm/ Dextrose) 50 mls @ 100 mls/hr IVPB Q8H-IV [facility]; Protocol Last Admin: 01/31/19 09:14 Dose: 100 mls/hr Insulin Aspart (Novolog Vial Sliding Scale -) 1 vial SQ Q6HPO [facility]; Protocol Last Admin: 01/31/19 06:15 Dose: Not Given Levothyroxine Sodium (Synthroid -) 50 mcg PO DAILY@0700 [facility] Last Admin: 01/31/19 06:15 Dose: 50 mcg Lidocaine/Prilocaine (Emla -) 1 applic TP QID PRN PRN Reason: HEMORRHOIDS Midodrine (Proamatine -) 10 mg PO TID-MID [facility] Last Admin: 01/30/19 17:50 Dose: 10 mg Multivit/Ca Carb/B Cmplx/FA/Prenat (Nephro-Evert -) 1 tablet PO DAILY [facility] Last Admin: 01/31/19 09:07 Dose: 1 tablet Mupirocin (Bactroban Ointment (For Decolonization) -) 1 applic NS BID [facility] Stop: 02/01/19 09:59 Last Admin: 01/31/19 09:09 Dose: 1 applic Nystatin (Mycostatin Ointment -) 1 applic TP BID [facility] Last Admin: 01/31/19 09:09 Dose: 1 applic Ondansetron HCl (Zofran -) 4 mg PO Q6H PRN PRN Reason: NAUSEA AND/OR VOMITING Pantoprazole Sodium (Protonix Iv) 40 mg IVPUSH DAILY [facility] Rivaroxaban (Xarelto) 15 mg PO DAILY@1800 [facility] Last Admin: 01/30/19 18:13 Dose: 15 mg Sertraline HCl (Zoloft -) 50 mg PO DAILY [facility] Last Admin: 01/31/19 09:07 Dose: 50 mg Silver Sulfadiazine (Silvadene -) 1 applic TP BID [facility] Last Admin: 01/31/19 09:08 Dose: 1 applic a/p hypotension- remains pressor dependent midodrine resumed suspect this is not infectious esrd/hd-per renal history of DVT no venous access in upper extremities, all lines are femoral consider repeat head ct if mental status does not improve repeat vancomycin level in am, redose if less then 15 continue zosyn for now day #5 overall prognosis is poor
[2019-01-31] MEDS: MIDODRINE HCL 5 MG TABLET PO SCH ×3 (09:43→17:36)
[2019-01-31] MEDS: CHLORHEXIDINE GLUCONATE 0.12% 15ML CUP MM SCH (09:43)
[2019-01-31] MEDS: PANTOPRAZOLE SODIUM 40 MG VIAL IVPUSH SCH (09:48)
--- NOTE | 2019-01-31 11:12 | PN ---
Progress Note, Physician Chief Complaint: resp failure History of Present Illness: intubated/sedated - Current Medication List Current Medications: Active Medications Acetaminophen (Tylenol -) 650 mg PO Q4H PRN PRN Reason: PAIN Last Admin: 01/31/19 00:00 Dose: 650 mg Albuterol Sulfate (Ventolin 0.083% Nebulizer Soln -) 1 amp NEB Q6H PRN PRN Reason: SHORT OF BREATH/WHEEZING Chlorhexidine Gluconate (Peridex -) 15 ml MM BID [facility] Last Admin: 01/31/19 09:43 Dose: 15 ml Midazolam HCl 100 mg/ Sodium (Chloride) 100 mls @ 1 mls/hr IVPB TITR [facility]; Protocol Last Titration: 01/31/19 07:42 Dose: 0 mg/hr, 0 mls/hr Norepinephrine Bitartrate 8, (000 mcg/ Dextrose) 500 mls @ 18.75 mls/hr IV TITR [facility]; Protocol Last Titration: 01/31/19 07:41 Dose: 2 mcg/min, 7.5 mls/hr Piperacillin Sod/Tazobactam (Sod 2.25 gm/ Dextrose) 50 mls @ 100 mls/hr IVPB Q8H-IV [facility]; Protocol Last Admin: 01/31/19 09:14 Dose: 100 mls/hr Insulin Aspart (Novolog Vial Sliding Scale -) 1 vial SQ Q6HPO [facility]; Protocol Last Admin: 01/31/19 06:15 Dose: Not Given Levothyroxine Sodium (Synthroid -) 50 mcg PO DAILY@0700 [facility] Last Admin: 01/31/19 06:15 Dose: 50 mcg Lidocaine/Prilocaine (Emla -) 1 applic TP QID PRN PRN Reason: HEMORRHOIDS Midodrine (Proamatine -) 10 mg PO TID-MID [facility] Last Admin: 01/31/19 09:43 Dose: 10 mg Multivit/Ca Carb/B Cmplx/FA/Prenat (Nephro-Evert -) 1 tablet PO DAILY [facility] Last Admin: 01/31/19 09:07 Dose: 1 tablet Mupirocin (Bactroban Ointment (For Decolonization) -) 1 applic NS BID [facility] Stop: 02/01/19 09:59 Last Admin: 01/31/19 09:09 Dose: 1 applic Nystatin (Mycostatin Ointment -) 1 applic TP BID [facility] Last Admin: 01/31/19 09:09 Dose: 1 applic Ondansetron HCl (Zofran -) 4 mg PO Q6H PRN PRN Reason: NAUSEA AND/OR VOMITING Pantoprazole Sodium (Protonix Iv) 40 mg IVPUSH DAILY [facility] Last Admin: 01/31/19 09:48 Dose: 40 mg Rivaroxaban (Xarelto) 15 mg PO DAILY@1800 [facility] Last Admin: 01/30/19 18:13 Dose: 15 mg Sertraline HCl (Zoloft -) 50 mg PO DAILY [facility] Last Admin: 01/31/19 09:07 Dose: 50 mg Silver Sulfadiazine (Silvadene -) 1 applic TP BID [facility] Last Admin: 01/31/19 09:08 Dose: 1 applic - Objective Vital Signs: Vital Signs Temperature 97.2 F L 01/31/19 10:00 Pulse Rate 79 01/31/19 10:00 Respiratory Rate 15 01/31/19 10:00 Blood Pressure 97/51 L 01/31/19 10:00 O2 Sat by Pulse Oximetry (%) 100 01/31/19 09:00 Constitutional: Yes: No Distress, Calm, Obese Cardiovascular: Yes: Pulse Irregular, S1, S2. No: JVD (prohibitive tds phys exam), Gallop, Murmur Respiratory: Yes: Regular, CTA Bilaterally (anteriorly). No: Accessory Muscle Use Extremities: No: Cold Edema: No Neurological: No: Alert, Oriented Psychiatric: No: Agitated Labs: CBC, BMP 01/31/19 05:20 01/31/19 05:20 INR, PTT INR 1.76 (0.83-1.09) H 01/27/19 05:45 Assessment/Plan Echo 12/01: nl LV function, RV mod to severely dilated, RV function mod to severely reduced, mod dilated LA/RA, RVSP 40-50 mmHg, mod TR tele: AF, HR controlled, artifact IMP: -Acute on chronic hypoxic/hypercapneic respiratory failure at HD, with bradycardia (40s-50s) -possible RLL PNA, sepsis -NSTEMI (troponin to 2): most likely Type II secondary to acute strain from CHF/ pulm HTN and acute resp failure, vs sec to hypotension at time of arrest. -septic shock on Levophed, doubt cardiogenic shock here -HFpEF, pulmonary HTN, RV dysfunction -ESRD on HD -h/o DVT /PE on AC REC: -Vent support -Pressors to maintain MAP 60mmHg--tolerating Levophed (now 4.5 mcg) without tachycardia. cont same (given possible recent ACS, if becomes tachycardic will have to reconsider--possibly vasopressin). -If develops signs of cool extremities or worsening hypotension, consider trial of milrinone for RV function. -will attempt repeat echo for LV fxn/RWMA (likely to be TDS koko while intubated) -HD as per renal -Cont xarelto (anemia, PLTs stable) -hold AVN blockers (hypotension), HRs ok -cont midodrine for bp support at HD -will defer ischemia evaluation as this will not car changer. she is at prohibitive risk for invasive tx strategy given extremely poor functional status with severe comorbidities at present. hypotension (requires midodrine for bp support at HD at baseline) will not tolerate signif b-blockade, though will try to give low dose if can tolerate, once she is off pressors. -no ASA for now given pt on Xarelto with mild anemia/thrombocytopenia (and likely dysfunctional PLTs in HD pt), and hi risk for bleeding at present -if she recovers from the acute illness will potentially reconsider above approach est time in data review, pt exam, and formulating mgmt plan of potentially life threatening medical problems = 37 min
--- NOTE | 2019-01-31 11:31 | PN ---
Teaching Attending Note Name of Resident: Tigre Jones ATTENDING PHYSICIAN STATEMENT I saw and evaluated the patient. I reviewed the resident's note and discussed the case with the resident. I agree with the resident's findings and plan as documented. SUBJECTIVE: Pt seen and examined in the ICU. Remains intubated, arousable off sedation but not following commands. Remains on levophed gtt but lower dose. OBJECTIVE: Vital Signs Period Temp Pulse Resp BP Sys/Jhaveri Pulse Ox Last 24 Hr 97.1 F-100.1 F 70-87 -18 94-105/46-62 97-100 Intake & Output 01/28/19 01/29/19 01/30/19 01/31/19 23:59 23:59 23:59 23:59 Intake Total 1693 2769 1673 150 Output Total 1200 2300 0 0 Balance 086 911 1241 150 Weight 83.461 kg 84.912 kg 83.597 kg 85.4 kg Gen: intubated, sedated Heart: RRR Lung: scattered rhonchi Abd: soft, nontender Ext: + edema CBC, BMP 01/31/19 05:20 01/31/19 05:20 Active Medications Acetaminophen (Tylenol -) 650 mg PO Q4H PRN PRN Reason: PAIN Last Admin: 01/31/19 00:00 Dose: 650 mg Albuterol Sulfate (Ventolin 0.083% Nebulizer Soln -) 1 amp NEB Q6H PRN PRN Reason: SHORT OF BREATH/WHEEZING Chlorhexidine Gluconate (Peridex -) 15 ml MM BID [facility] Last Admin: 01/31/19 09:43 Dose: 15 ml Midazolam HCl 100 mg/ Sodium (Chloride) 100 mls @ 1 mls/hr IVPB TITR [facility]; Protocol Last Titration: 01/31/19 07:42 Dose: 0 mg/hr, 0 mls/hr Norepinephrine Bitartrate 8, (000 mcg/ Dextrose) 500 mls @ 18.75 mls/hr IV TITR [facility]; Protocol Last Titration: 01/31/19 07:41 Dose: 2 mcg/min, 7.5 mls/hr Piperacillin Sod/Tazobactam (Sod 2.25 gm/ Dextrose) 50 mls @ 100 mls/hr IVPB Q8H-IV [facility]; Protocol Last Admin: 01/31/19 09:14 Dose: 100 mls/hr Insulin Aspart (Novolog Vial Sliding Scale -) 1 vial SQ Q6HPO [facility]; Protocol Last Admin: 01/31/19 06:15 Dose: Not Given Levothyroxine Sodium (Synthroid -) 50 mcg PO DAILY@0700 [facility] Last Admin: 01/31/19 06:15 Dose: 50 mcg Lidocaine/Prilocaine (Emla -) 1 applic TP QID PRN PRN Reason: HEMORRHOIDS Midodrine (Proamatine -) 10 mg PO TID-MID [facility] Last Admin: 01/31/19 09:43 Dose: 10 mg Multivit/Ca Carb/B Cmplx/FA/Prenat (Nephro-Evert -) 1 tablet PO DAILY [facility] Last Admin: 01/31/19 09:07 Dose: 1 tablet Mupirocin (Bactroban Ointment (For Decolonization) -) 1 applic NS BID [facility] Stop: 02/01/19 09:59 Last Admin: 01/31/19 09:09 Dose: 1 applic Nystatin (Mycostatin Ointment -) 1 applic TP BID [facility] Last Admin: 01/31/19 09:09 Dose: 1 applic Ondansetron HCl (Zofran -) 4 mg PO Q6H PRN PRN Reason: NAUSEA AND/OR VOMITING Pantoprazole Sodium (Protonix Iv) 40 mg IVPUSH DAILY [facility] Last Admin: 01/31/19 09:48 Dose: 40 mg Rivaroxaban (Xarelto) 15 mg PO DAILY@1800 [facility] Last Admin: 01/30/19 18:13 Dose: 15 mg Sertraline HCl (Zoloft -) 50 mg PO DAILY [facility] Last Admin: 01/31/19 09:07 Dose: 50 mg Silver Sulfadiazine (Silvadene -) 1 applic TP BID [facility] Last Admin: 01/31/19 09:08 Dose: 1 applic ASSESSMENT AND PLAN: Acute on Chronic Hypoxic and Hypercapneic Respiratory Failure r/o Pneumonia Shock likely Septic Volume Overload ESRD on HD +Troponins likely Demand Ischemia Pulmonary HTN h/o PE/DVT - continue antibiotics - f/u cultures - taper pressors to maintain MAP >55 - continue midodrine - HD per renal with ultrafiltration - taper FiO2 to keep SpO2 >90% - continue anticoagulation - minimize sedation to assess mental status - spontaneous breathing trials as tolerated when mental status improved - enteral feeds - DVT/GI prophylaxis critical care time spent in reviewing chart, evaluating patient and formulating plan 35 min
--- NOTE | 2019-01-31 11:39 | PN ---
Physical Exam: SUBJECTIVE: Patient seen and examined at the bedside. Remains intubated. Taken off sedation but not responsive to commands. Titrating down on pressor requirements. Has chronically low blood pressures and can tolerate low MAPs. OBJECTIVE: Vital Signs Period Temp Pulse Resp BP Sys/Jhaveri Pulse Ox Last 24 Hr 97.1 F-100.1 F 70-87 15-18 94-105/46-62 97-100 GENERAL: Intubated and sedated HEAD: Normal with no signs of trauma. EYES: Pupils equal, round and sluggish reaction to light, sclera anicteric, conjunctiva clear. EARS, NOSE, THROAT: Orotracheal tube in place, no secretions present NECK: No JVD or masses noted LUNGS: Breath sounds equal, with mechanical breath sounds heard and coarse sounds throughout, decreased at the bases. Breath sounds improved HEART: Irregular rhythm, normal rate, S1 and S2 without murmur, rub. ABDOMEN: Soft, moderately distended, hypoactive bowel sounds, obese abdomen with non-symmetrical appearance EXTREMITIES: 2+ peripheral edema on the R, 1+ on the L on upper extremity. No calf tenderness. Trace peripheral edema on lower extremities. NEUROLOGICAL: Unable to assess SKIN: Cool, weaping skin, diffuse ecchymoses noted Laboratory Results - last 24 hr 01/30/19 01/30/19 01/31/19 11:46 17:47 00:25 WBC RBC Hgb Hct MCV MCH MCHC RDW Plt Count MPV Sodium Potassium Chloride Carbon Dioxide Anion Gap BUN Creatinine Est GFR (CKD-EPI)AfAm Est GFR (CKD-EPI)NonAf POC Glucometer 167 155 124 Random Glucose Calcium Total Bilirubin AST ALT Alkaline Phosphatase Total Protein Albumin Random Vancomycin 01/31/19 01/31/19 01/31/19 05:20 05:20 05:20 WBC 6.5 RBC 2.83 L Hgb 8.7 L Hct 26.7 L MCV 94.5 MCH 30.6 MCHC 32.4 RDW 19.1 H Plt Count 110 L MPV 8.8 Sodium 136 Potassium 3.4 L Chloride 99 Carbon Dioxide 28 Anion Gap 10 BUN 30.4 H Creatinine 2.6 H Est GFR (CKD-EPI)AfAm 20.68 Est GFR (CKD-EPI)NonAf 17.84 POC Glucometer Random Glucose 132 H Calcium 8.9 Total Bilirubin 0.8 AST 15 ALT 16 Alkaline Phosphatase 125 H Total Protein 5.1 L Albumin 2.0 L Random Vancomycin 15.2 L 01/31/19 05:23 WBC RBC Hgb Hct MCV MCH MCHC RDW Plt Count MPV Sodium Potassium Chloride Carbon Dioxide Anion Gap BUN Creatinine Est GFR (CKD-EPI)AfAm Est GFR (CKD-EPI)NonAf POC Glucometer 124 Random Glucose Calcium Total Bilirubin AST ALT Alkaline Phosphatase Total Protein Albumin Random Vancomycin Active Medications Generic Name Dose Route Start Last Admin Trade Name Freq PRN Reason Stop Dose Admin Acetaminophen 650 mg 01/30/19 20:41 01/31/19 00:00 Tylenol - PO 650 mg Q4H PRN Administration PAIN Albuterol Sulfate 1 amp 01/27/19 01:54 Ventolin 0.083% Nebulizer Soln - NEB Q6H PRN SHORT OF BREATH/WHEEZING Chlorhexidine Gluconate 15 ml 01/31/19 10:00 01/31/19 09:43 Peridex - MM 15 ml BID NAHEED Administration Midazolam HCl 100 mg/ Sodium 100 mls @ 1 mls/hr 01/26/19 21:45 01/31/19 07:42 Chloride IVPB 0 mg/hr TITR NAHEED 0 mls/hr Titration Protocol 1 MG/HR Norepinephrine Bitartrate 8, 500 mls @ 18.75 mls/hr 01/28/19 11:15 01/31/19 07:41 000 mcg/ Dextrose IV 2 mcg/min TITR NAHEED 7.5 mls/hr Titration Protocol 5 MCG/MIN Piperacillin Sod/Tazobactam 50 mls @ 100 mls/hr 01/30/19 18:00 01/31/19 09:14 Sod 2.25 gm/ Dextrose IVPB 100 mls/hr Q8H-IV NAHEED Administration Protocol Insulin Aspart 1 vial 01/27/19 12:00 01/31/19 06:15 Novolog Vial Sliding Scale - SQ Not Given Q6HPO NAHEED Protocol Levothyroxine Sodium 50 mcg 01/27/19 07:00 01/31/19 06:15 Synthroid - PO 50 mcg DAILY@0700 NAHEED Administration Lidocaine/Prilocaine 1 applic 01/27/19 01:55 Emla - TP QID PRN HEMORRHOIDS Midodrine 10 mg 01/27/19 14:30 01/31/19 09:43 Proamatine - PO 10 mg TID-MID NAHEED Administration Multivit/Ca Carb/B Cmplx/FA/Prenat 1 tablet 01/27/19 10:00 01/31/19 09:07 Nephro-Evert - PO 1 tablet DAILY NAHEED Administration Mupirocin 1 applic 01/27/19 10:00 01/31/19 09:09 Bactroban Ointment (For Decolonization) - NS 02/01/19 09:59 1 applic BID NAHEED Administration Nystatin 1 applic 01/27/19 22:00 01/31/19 09:09 Mycostatin Ointment - TP 1 applic BID NAHEED Administration Ondansetron HCl 4 mg 01/27/19 01:57 Zofran - PO Q6H PRN NAUSEA AND/OR VOMITING Pantoprazole Sodium 40 mg 01/31/19 10:00 01/31/19 09:48 Protonix Iv IVPUSH 40 mg DAILY NAHEED Administration Rivaroxaban 15 mg 01/27/19 18:00 01/30/19 18:13 Xarelto PO 15 mg DAILY@1800 NAHEED Administration Sertraline HCl 50 mg 01/27/19 10:00 01/31/19 09:07 Zoloft - PO 50 mg DAILY NAHEED Administration Silver Sulfadiazine 1 applic 01/27/19 10:00 01/31/19 09:08 Silvadene - TP 1 applic BID NAHEED Administration ASSESSMENT/PLAN: Argelia Patel is a 73 year old female with a PMHx of ESRD, Orthostatic Hypotension, CHF, DM, hypothyroid, COPD, Afib (on Xarelto), DVTs, Pulmonary Edema and multiple admissions for PNA (including intubation) admitted to the ICU for unresponsiveness secondary to acute respiratory failure likely from hypercapneia and hypotension from fluid removal during dialysis. Acute Hypercapneic Respiratory Failure Hypotension ESRD CHF DM Hypothyroidism Atrial fibrillation NEUROLOGIC - intubated and sedated - holding Versed to assess mental status and to give sedation vacation - if necessary sedation, can use Versed or fentanyl pushes, titrate off drip - head CT with no acute intracranial pathology, possible mastoiditis and sinusitis CARDIOLOGY - received 2 L of NS in the ED - on Levophed, on 2mcq this morning, titrate down as tolerated, double concentrated to reduce fluid volume given - EKG showing afib with RVR with occasional PVCs, poor study - repeat EKG showing no acute changes from EKG done on 01/19/19, low voltage study , afib - troponins elevated at 0.18 trended up to 0.89 > 1.85 > 2.46 > 2.1, likely demand in setting of hypovolemia, downtrending - previous echo 12/08/18 showing normal EF, moderate to severe right ventricle dilation, increased right ventricular systolic pressure - monitor I+Os - digoxin level 0.10 - Cardiology consulted, appreciate recs - continue Xarelto for afib - if worsening hypotension, can consider milrinone for RV function - MAP goals of 55 RESPIRATORY - intubated - vent settings 450, rate 16, O2 30, PEEP 5 - original ABG showing pH 7.21, CO2 52.9, O2 142, respiratory acidosis and concurrent non anion gap metabolic acidosis in the setting of hypercapneia and renal failure - repeat ABG showing continuation of hypercapneia and acidosis, vent settings adjusted to increase rate and decrease CO2 - CXR today showing continued pleural effusions and atelectasis, improved from previous RENAL - Dr. Molina consulted - HD Thursday, removed 1L - Will receive HD today as per [facility] schedule - albumin given GASTROINTESTINAL - no acute issues - OG tube in, getting tube feeds GENITOURINARY - zhang in INFECTIOUS DISEASE - hypotensive, no WBC, afebrile, Tmax 100 - unclear if infection is contributing to low BP, cannot r/o lung source or wound source - hx of cdiff, cautious approach to continuing antibiotics - blood cxs negative - random vanco level today 15.2, redose if random vanco level <15 - continue vancomycin - zosyn 2.25gm q8h as recommended with CrCl 20 - 40 as per UptoDate - ID following, appreciate recommendations ENDOCRINE - continue home Synthroid - BGM q6h - ISS HEMATOLOGY - Hgb 8.7, downtrending, FOBT ordered, no acute source of bleed - thrombocytopenia, improved continue to monitor F/E/N - no standing fluids - continue to monitor electrolytes and replete as necessary, less aggressive hypokalemia and hypophospatemia replacement in setting of ESRD - Nepro enteral feeds LINES - L femoral central line placed 01/26, will need prolonged access due to difficulty in obtaining access elsewhere, stenosis centrally - R femoral Tesio catheter PROPHYLAXIS - home Xarelto CODE - full code DISPO - continue to monitor in ICU - Family discussion on goals of care Visit type - Emergency Visit Emergency Visit: No - New Patient This patient is new to me today: No - Critical Care Critical Care patient: Yes Total Critical Care Time (in minutes): 39 Critical Care Statement: The care of this patient involved high complexity decision making to prevent further life threatening deterioration of the patient 's condition and/or to evaluate & treat vital organ system(s) failure or risk of failure.
[2019-01-31] MEDS ORDERED: POTASSIUM CHLORIDE ORAL LIQUID 20 MEQ/15 ML GT ONE (11:49)
--- NOTE | 2019-01-31 11:56 | PN ---
Progress Note, Physician Chief Complaint: patient in ICU intubated on levophed lethargic - Current Medication List Current Medications: Active Medications Acetaminophen (Tylenol -) 650 mg PO Q4H PRN PRN Reason: PAIN Last Admin: 01/31/19 00:00 Dose: 650 mg Albuterol Sulfate (Ventolin 0.083% Nebulizer Soln -) 1 amp NEB Q6H PRN PRN Reason: SHORT OF BREATH/WHEEZING Chlorhexidine Gluconate (Peridex -) 15 ml MM BID [facility] Last Admin: 01/31/19 09:43 Dose: 15 ml Midazolam HCl 100 mg/ Sodium (Chloride) 100 mls @ 1 mls/hr IVPB TITR NAHEED; Protocol Last Titration: 01/31/19 07:42 Dose: 0 mg/hr, 0 mls/hr Norepinephrine Bitartrate 8, (000 mcg/ Dextrose) 500 mls @ 18.75 mls/hr IV TITR NAHEED; Protocol Last Titration: 01/31/19 07:41 Dose: 2 mcg/min, 7.5 mls/hr Piperacillin Sod/Tazobactam (Sod 2.25 gm/ Dextrose) 50 mls @ 100 mls/hr IVPB Q8H-IV NAHEED; Protocol Last Admin: 01/31/19 09:14 Dose: 100 mls/hr Insulin Aspart (Novolog Vial Sliding Scale -) 1 vial SQ Q6HPO NAHEED; Protocol Last Admin: 01/31/19 06:15 Dose: Not Given Levothyroxine Sodium (Synthroid -) 50 mcg PO DAILY@0700 [facility] Last Admin: 01/31/19 06:15 Dose: 50 mcg Lidocaine/Prilocaine (Emla -) 1 applic TP QID PRN PRN Reason: HEMORRHOIDS Midodrine (Proamatine -) 10 mg PO TID-MID [facility] Last Admin: 01/31/19 09:43 Dose: 10 mg Multivit/Ca Carb/B Cmplx/FA/Prenat (Nephro-Evert -) 1 tablet PO DAILY [facility] Last Admin: 01/31/19 09:07 Dose: 1 tablet Mupirocin (Bactroban Ointment (For Decolonization) -) 1 applic NS BID [facility] Stop: 02/01/19 09:59 Last Admin: 01/31/19 09:09 Dose: 1 applic Nystatin (Mycostatin Ointment -) 1 applic TP BID [facility] Last Admin: 01/31/19 09:09 Dose: 1 applic Ondansetron HCl (Zofran -) 4 mg PO Q6H PRN PRN Reason: NAUSEA AND/OR VOMITING Pantoprazole Sodium (Protonix Iv) 40 mg IVPUSH DAILY [facility] Last Admin: 01/31/19 09:48 Dose: 40 mg Rivaroxaban (Xarelto) 15 mg PO DAILY@1800 [facility] Last Admin: 01/30/19 18:13 Dose: 15 mg Sertraline HCl (Zoloft -) 50 mg PO DAILY [facility] Last Admin: 01/31/19 09:07 Dose: 50 mg Silver Sulfadiazine (Silvadene -) 1 applic TP BID [facility] Last Admin: 01/31/19 09:08 Dose: 1 applic - Objective Vital Signs: Vital Signs Temperature 97.2 F L 01/31/19 10:00 Pulse Rate 79 01/31/19 10:00 Respiratory Rate 16 01/31/19 11:24 Blood Pressure 97/51 L 01/31/19 10:00 O2 Sat by Pulse Oximetry (%) 100 01/31/19 09:00 Constitutional: Yes: Calm Neck: Yes: Other (intubated) Respiratory: Yes: Diminished, Mechanically Ventilated Gastrointestinal: Yes: Normal Bowel Sounds, Soft Edema: Yes Labs: CBC, BMP 01/31/19 05:20 01/31/19 05:20 INR, PTT INR 1.76 (0.83-1.09) H 01/27/19 05:45 Problem List - Problems (1) Hypothyroid Assessment/Plan: on synthroid Code(s): E03.9 - HYPOTHYROIDISM, UNSPECIFIED (2) Acute respiratory failure Assessment/Plan: intubated possible pna on iv zosyn/ vanco Code(s): J96.00 - ACUTE RESPIRATORY FAILURE, UNSP W HYPOXIA OR HYPERCAPNIA Qualifiers: Respiratory failure complication: hypoxia Qualified Code(s): J96.01 - Acute respiratory failure with hypoxia (3) ESRD on hemodialysis Assessment/Plan: HD per renal Code(s): N18.6 - END STAGE RENAL DISEASE; Z99.2 - DEPENDENCE ON RENAL DIALYSIS (4) Hypotension Assessment/Plan: on levophed- septic shock iv abx midodrine wbc trending down Code(s): I95.9 - HYPOTENSION, UNSPECIFIED Qualifiers: Hypotension type: unspecified hypotension type Qualified Code(s): I95.9 - Hypotension, unspecified (5) H/O deep venous thrombosis Assessment/Plan: on xarelto Code(s): Z86.718 - PERSONAL HISTORY OF OTHER VENOUS THROMBOSIS AND EMBOLISM (6) Elevated troponin Assessment/Plan: NSTEMi- inc troponin secondary to strain from resp failure, septic shock Code(s): R74.8 - ABNORMAL LEVELS OF OTHER SERUM ENZYMES
[2019-01-31] MEDS ORDERED: EPOETIN ALFA 3,000 UNIT, EPOETIN ALFA 4,000 UNIT IVPUSH ONE ×2 (13:00→15:00)
[2019-01-31] MEDS ORDERED: EPOETIN ALFA 2,000 UNIT/1 ML VIAL IVPUSH ONE (13:39)
[2019-01-31] MEDS ORDERED: SODIUM CHLORIDE 250 ML IV PRN (13:39)
--- NOTE | 2019-01-31 13:39 | PN ---
Progress Note, Physician History of Present Illness: Pt seen and examined at bedside. She remains in the ICU. She remains intubated. - Current Medication List Current Medications: Active Medications Acetaminophen (Tylenol -) 650 mg PO Q4H PRN PRN Reason: PAIN Last Admin: 01/31/19 00:00 Dose: 650 mg Albuterol Sulfate (Ventolin 0.083% Nebulizer Soln -) 1 amp NEB Q6H PRN PRN Reason: SHORT OF BREATH/WHEEZING Chlorhexidine Gluconate (Peridex -) 15 ml MM BID [facility]HEED Last Admin: 01/31/19 09:43 Dose: 15 ml Midazolam HCl 100 mg/ Sodium (Chloride) 100 mls @ 1 mls/hr IVPB TITR NAHEED; Protocol Last Titration: 01/31/19 07:42 Dose: 0 mg/hr, 0 mls/hr Norepinephrine Bitartrate 8, (000 mcg/ Dextrose) 500 mls @ 18.75 mls/hr IV TITR NAHEED; Protocol Last Titration: 01/31/19 07:41 Dose: 2 mcg/min, 7.5 mls/hr Piperacillin Sod/Tazobactam (Sod 2.25 gm/ Dextrose) 50 mls @ 100 mls/hr IVPB Q8H-IV NAHEED; Protocol Last Admin: 01/31/19 09:14 Dose: 100 mls/hr Insulin Aspart (Novolog Vial Sliding Scale -) 1 vial SQ Q6HPO NAHEED; Protocol Last Admin: 01/31/19 11:51 Dose: Not Given Levothyroxine Sodium (Synthroid -) 50 mcg PO DAILY@0700 [facility] Last Admin: 01/31/19 06:15 Dose: 50 mcg Lidocaine/Prilocaine (Emla -) 1 applic TP QID PRN PRN Reason: HEMORRHOIDS Midodrine (Proamatine -) 10 mg PO TID-MID [facility] Last Admin: 01/31/19 09:43 Dose: 10 mg Multivit/Ca Carb/B Cmplx/FA/Prenat (Nephro-Evert -) 1 tablet PO DAILY [facility] Last Admin: 01/31/19 09:07 Dose: 1 tablet Mupirocin (Bactroban Ointment (For Decolonization) -) 1 applic NS BID [facility] Stop: 02/01/19 09:59 Last Admin: 01/31/19 09:09 Dose: 1 applic Nystatin (Mycostatin Ointment -) 1 applic TP BID [facility] Last Admin: 01/31/19 09:09 Dose: 1 applic Ondansetron HCl (Zofran -) 4 mg PO Q6H PRN PRN Reason: NAUSEA AND/OR VOMITING Pantoprazole Sodium (Protonix Iv) 40 mg IVPUSH DAILY [facility] Last Admin: 01/31/19 09:48 Dose: 40 mg Rivaroxaban (Xarelto) 15 mg PO DAILY@1800 [facility] Last Admin: 01/30/19 18:13 Dose: 15 mg Sertraline HCl (Zoloft -) 50 mg PO DAILY [facility] Last Admin: 01/31/19 09:07 Dose: 50 mg Silver Sulfadiazine (Silvadene -) 1 applic TP BID [facility] Last Admin: 01/31/19 09:08 Dose: 1 applic - Objective Vital Signs: Vital Signs Temperature 97.2 F L 01/31/19 10:00 Pulse Rate 79 01/31/19 10:00 Respiratory Rate 16 01/31/19 11:24 Blood Pressure 97/51 L 01/31/19 10:00 O2 Sat by Pulse Oximetry (%) 100 01/31/19 09:00 Constitutional: Yes: Calm Eyes: Yes: Conjunctiva Clear HENT: Yes: Atraumatic Cardiovascular: Yes: S1, S2 Respiratory: Yes: Intubated, Mechanically Ventilated Gastrointestinal: Yes: Soft Genitourinary: Yes: WNL Musculoskeletal: Yes: Muscle Weakness Extremities: Yes: WNL Edema: Yes Edema: LUE: 1+, RUE: 1+, LLE: 1+, RLE: 1+ Neurological: Yes: Lethargy Labs: CBC, BMP 01/31/19 05:20 01/31/19 05:20 INR, PTT INR 1.76 (0.83-1.09) H 01/27/19 05:45 - ....Imaging Chest X-ray: Report Reviewed Problem List - Problems (1) Acute respiratory failure Code(s): J96.00 - ACUTE RESPIRATORY FAILURE, UNSP W HYPOXIA OR HYPERCAPNIA Qualifiers: Respiratory failure complication: hypoxia Qualified Code(s): J96.01 - Acute respiratory failure with hypoxia (2) ESRD on hemodialysis Code(s): N18.6 - END STAGE RENAL DISEASE; Z99.2 - DEPENDENCE ON RENAL DIALYSIS Assessment/Plan Current Medications Generic Name Dose Route Start Last Admin Trade Name Roberto PRN Reason Stop Dose Admin Acetaminophen 650 mg 01/30/19 20:41 01/31/19 00:00 Tylenol - PO 650 mg Q4H PRN Administration PAIN Albuterol Sulfate 1 amp 01/27/19 01:54 Ventolin 0.083% Nebulizer Soln - NEB Q6H PRN SHORT OF BREATH/WHEEZING Chlorhexidine Gluconate 15 ml 01/31/19 10:00 01/31/19 09:43 Peridex - MM 15 ml BID NAHEED Administration Midazolam HCl 100 mg/ Sodium 100 mls @ 1 mls/hr 01/26/19 21:45 01/31/19 07:42 Chloride IVPB 0 mg/hr TITR NAHEED 0 mls/hr Titration Protocol 1 MG/HR Norepinephrine Bitartrate 8, 500 mls @ 18.75 mls/hr 01/28/19 11:15 01/31/19 07:41 000 mcg/ Dextrose IV 2 mcg/min TITR NAHEED 7.5 mls/hr Titration Protocol 5 MCG/MIN Piperacillin Sod/Tazobactam 50 mls @ 100 mls/hr 01/30/19 18:00 01/31/19 09:14 Sod 2.25 gm/ Dextrose IVPB 100 mls/hr Q8H-IV NAHEED Administration Protocol Insulin Aspart 1 vial 01/27/19 12:00 01/31/19 11:51 Novolog Vial Sliding Scale - SQ Not Given Q6HPO NAHEED Protocol Levothyroxine Sodium 50 mcg 01/27/19 07:00 01/31/19 06:15 Synthroid - PO 50 mcg DAILY@0700 NAHEED Administration Lidocaine/Prilocaine 1 applic 01/27/19 01:55 Emla - TP QID PRN HEMORRHOIDS Midodrine 10 mg 01/27/19 14:30 01/31/19 09:43 Proamatine - PO 10 mg TID-MID NAHEED Administration Multivit/Ca Carb/B Cmplx/FA/Prenat 1 tablet 01/27/19 10:00 01/31/19 09:07 Nephro-Evert - PO 1 tablet DAILY NAHEED Administration Mupirocin 1 applic 01/27/19 10:00 01/31/19 09:09 Bactroban Ointment (For Decolonization) - NS 02/01/19 09:59 1 applic BID NAHEED Administration Nystatin 1 applic 01/27/19 22:00 01/31/19 09:09 Mycostatin Ointment - TP 1 applic BID NAHEED Administration Ondansetron HCl 4 mg 01/27/19 01:57 Zofran - PO Q6H PRN NAUSEA AND/OR VOMITING Pantoprazole Sodium 40 mg 01/31/19 10:00 01/31/19 09:48 Protonix Iv IVPUSH 40 mg DAILY NAHEED Administration Rivaroxaban 15 mg 01/27/19 18:00 01/30/19 18:13 Xarelto PO 15 mg DAILY@1800 NAHEED Administration Sertraline HCl 50 mg 01/27/19 10:00 01/31/19 09:07 Zoloft - PO 50 mg DAILY NAHEED Administration Silver Sulfadiazine 1 applic 01/27/19 10:00 01/31/19 09:08 Silvadene - TP 1 applic BID NAHEED Administration Impression 1. ESRD 2. change in mental status 3. resp failure requiring intubation 4. chf 5. dvt 6. anemia 7. a-fib 8. hypothyroid 9. pleural effusion Plan - will arrange for HD today - will UF volume - discussed with ICU - vent support - maintain map of 65 - monitor pulse ox - HD right thigh cath, 3 k bath, 3 15 time, 400 abf
[2019-01-31] MEDS: ALBUMIN HUMAN 25% 12.5 GM/50 ML VIAL IVPB SCH ×4 (14:25→17:49)
[2019-01-31] MEDS ORDERED: NOREPINEPHRINE BITARTRATE 4 MG/4 ML ML IV ONE (17:11)
[2019-01-31] MEDS: AMINO ACIDS/PROTEIN HYDROLYS 30 ML LIQUID.PKT PO SCH (17:35)
[2019-01-31] MEDS ORDERED: PT OWN MED DRAWER 7, Y5N ONE (17:39)
[2019-01-31] MEDS: RIVAROXABAN 15 MG TABLET PO SCH (17:40)
[2019-01-31] MEDS: NOREPINEPHRINE BITARTRATE 8,000 MCG in DEXTROSE 5%-WATER - 492 ML IV SCH (17:40)
--- NOTE | 2019-01-31 18:07 | ECHO ---
Name: TAYA WYATT Exam:Adult Echocardiogram Study Date: 01/31/2019 11:38 AM Age: 73 yrs Reason For Study: s/p mi (repeat study vs 12/01,per gitig Height: 62 in Weight: 184 lb BSA: 1.8 m2 MMode/2D Measurements & Calculations RVDd: 3.6 cm Ao root diam: 3.7 cm IVSd: 0.94 cm LA dimension: 5.2 cm LVIDd: 5.3 cm ACS: 1.3 cm LVIDs: 3.9 cm LVPWd: 0.93 cm IVSs: 1.3 cm LVPWs: 1.3 cm EDV(Teich): 136.1 ml ESV(Teich): 64.1 ml EPSS: 1.4 cm Doppler Measurements & Calculations Ao V2 max: 115.4 cm/sec TR max aylin: 297.3 cm/sec Ao max P.3 mmHg TR max P.5 mmHg Procedure The study was technically difficult with many images being suboptimal in quality. The study was techn ically limited with all images being suboptimal in quality. Patient is intubated. The patient was in atrial fibrillation with controlled ventricular rate during the exam. Left Ventricle The left ventricle is normal in size. Left ventricular systolic function is mildly reduced. Ejection Fraction = 45-50%. Regional wall motion abnormalities cannot be excluded due to limited visualization. Right Ventricle The right ventricle is moderate to severely dilated. The right ventricular systolic function is moder ate to severely reduced. Atria The left atrium is moderately dilated. The right atrium is moderate to severely dilated. Mitral Valve There is mild mitral annular calcification. The mitral valve is grossly normal. There is mild mitral regurgitation. Tricuspid Valve The tricuspid valve is not well visualized. There is mild to moderate tricuspid regurgitation. Right ventricular systolic pressure is elevated at 40-50mmHg. Aortic Valve There is mild aortic sclerosis.;. Trace aortic regurgitation. Pulmonic Valve The pulmonic valve is not well visualized. Moderate pulmonic valvular regurgitation. Great Vessels The aortic root is normal size. Pericardium/Pleura There is no pericardial effusion. There is a pleural effusion present. Mobile echodensity seen in ple ural space, correlate clinically. Interpretation Summary In comparison to previous study performed 12/08/2018, LV fxn has slightly worsened and mobile echoden sity is seen in pleural space, correlate clinically. The left ventricle is normal in size. The left atrium is moderately dilated. The right ventricle is moderate to severely dilated. Trace aortic regurgitation. Ejection Fraction = 45-50%. The right ventricular systolic function is moderate to severely reduced. There is mild mitral regurgitation. There is mild to moderate tricuspid regurgitation. The right atrium is moderate to severely dilated. Mobile echodensity seen in pleural space, correlate clinically. In comparison to previous study performed 12/08/2018, LV fxn has slightly worsened and mobile echoden sity is seen in pleural space, correlate clinically. Jeet Mendoza MD 01/31/2019 06:07 PM
[2019-01-31] MEDS ORDERED: CHLORHEXIDINE GLUCONATE 4% CLEANSER FOR DECOLONIZATION TP SCH (22:00)
[2019-02-01] MEDS: ACETAMINOPHEN 325 MG TABLET (FP) PO PRN (00:06)
[2019-02-01] MEDS: CHLORHEXIDINE GLUCONATE 0.12% 15ML CUP MM SCH ×3 (00:07→21:26)
[2019-02-01] MEDS: NYSTATIN 100000 UNIT/GM TOPICAL OINTMENT 15 GM TUBE TP SCH ×3 (00:07→21:26)
[2019-02-01] MEDS: SILVER SULFADIAZINE 1% TOP CREAM 400 GM JAR TP SCH ×3 (00:07→21:26)
[2019-02-01] MEDS: MUPIROCIN 2% TOPICAL OINTMENT FOR DECOLONIZATION NS SCH (00:07)
[2019-02-01] MEDS: MIDAZOLAM HCL 2 MG/2 ML SINGLE DOSE VIAL IVPUSH PRN (00:17)
[2019-02-01] MEDS: INSULIN SLIDING SCALE (NOVOLOG) 1 VIAL SQ SCH ×5 (00:45→23:45)
[2019-02-01] MEDS: PIPERACILLIN/TAZOB 2.25 GM 2.25 GM in DEXTROSE 5%-WATER - 50 ML IVPB SCH ×3 (01:38→17:38)
[2019-02-01] MEDS: LEVOTHYROXINE NA 50 MCG TABLET (FP) PO SCH (06:15)
[2019-02-01 06:41] LABS: HEMATOCRIT 28.8 % (32.4-45.2); HEMOGLOBIN 9.3 GM/dL (10.7-15.3); MCH 30.4 pg (25.7-33.7); MCHC 32.4 g/dl (32.0-36.0); MEAN CELL VOLUME 93.9 fl (80-96); MEAN PLT VOLUME 8.8 fl (7.5-11.1); PLATELET COUNT 153 K/MM3 (134-434); RBC 3.06 M/mm3 (3.60-5.2); RDW 19.1 % (11.6-15.6); WHITE BLOOD COUNT 5.9 K/mm3 (4.0-10.0)
[2019-02-01 07:00] LABS: BLOOD UREA NITROGEN 25.2 mg/dL (7-18); CALCIUM 8.9 mg/dL (8.5-10.1); CREATININE 2.2 mg/dL (0.55-1.3); MAGNESIUM 2.1 mg/dL (1.8-2.4); PHOSPHOROUS 3.1 mg/dL (2.5-4.9); POTASSIUM 3.3 mmol/L (3.5-5.1)
[2019-02-01] MEDS ORDERED: VANCOMYCIN 1 GM in D5W (PRE-DOCKED) 1,000 MG/250 ML IVPB ONE (07:10)
[2019-02-01] MEDS ORDERED: PIPERACILLIN/TAZOBACTAM 2.25 GM VIAL IVPB ONE ×2 (08:47→17:28)
[2019-02-01] MEDS ORDERED: DEXTROSE 5%-WATER - 50 ML IVPB ONE ×2 (08:47→17:28)
[2019-02-01] MEDS: PANTOPRAZOLE SODIUM 40 MG VIAL IVPUSH SCH (09:12)
[2019-02-01] MEDS: AMINO ACIDS/PROTEIN HYDROLYS 30 ML LIQUID.PKT PO SCH ×2 (09:12→16:47)
[2019-02-01] MEDS: SERTRALINE HCL 50 MG TABLET (FP) PO SCH (09:15)
[2019-02-01] MEDS: VITAMIN B COMP W-C 1 EA TABLET PO SCH (09:15)
[2019-02-01] MEDS: MIDODRINE HCL 5 MG TABLET PO SCH ×3 (09:15→17:38)
--- NOTE | 2019-02-01 10:49 | PN ---
Progress Note (short form) - Note Progress Note: intubated, not sedated Current Medications Acetaminophen (Tylenol -) 650 mg PO Q4H PRN PRN Reason: PAIN Last Admin: 02/01/19 00:06 Dose: 650 mg Albuterol Sulfate (Ventolin 0.083% Nebulizer Soln -) 1 amp NEB Q6H PRN PRN Reason: SHORT OF BREATH/WHEEZING Amino Acids (Prosource No Carb Liquid Pkt) 30 ml PO BID@0800,1730 [facility] Last Admin: 02/01/19 09:12 Dose: 30 ml Chlorhexidine Gluconate (Peridex -) 15 ml MM BID [facility] Last Admin: 02/01/19 09:12 Dose: 15 ml Norepinephrine Bitartrate 8, (000 mcg/ Dextrose) 500 mls @ 18.75 mls/hr IV TITR [facility]; Protocol Last Titration: 02/01/19 06:30 Dose: 4 mcg/min, 15 mls/hr Piperacillin Sod/Tazobactam (Sod 2.25 gm/ Dextrose) 50 mls @ 100 mls/hr IVPB Q8H-IV [facility]; Protocol Last Admin: 02/01/19 09:12 Dose: 100 mls/hr Sodium Chloride (Normal Saline -) 250 mls @ 3,000 mls/hr IV PRN PRN PRN Reason: Hypotension during Dialysis Stop: 02/01/19 13:39 Insulin Aspart (Novolog Vial Sliding Scale -) 1 vial SQ Q6HPO [facility]; Protocol Last Admin: 02/01/19 06:04 Dose: Not Given Levothyroxine Sodium (Synthroid -) 50 mcg PO DAILY@0700 [facility] Last Admin: 02/01/19 06:15 Dose: 50 mcg Lidocaine/Prilocaine (Emla -) 1 applic TP QID PRN PRN Reason: HEMORRHOIDS Midazolam HCl (Versed -) 2 mg IVPUSH Q2H PRN PRN Reason: AGITATION Last Admin: 02/01/19 00:17 Dose: 2 mg Midodrine (Proamatine -) 10 mg PO TID-MID [facility] Last Admin: 02/01/19 09:15 Dose: 10 mg Multivit/Ca Carb/B Cmplx/FA/Prenat (Nephro-Evert -) 1 tablet PO DAILY [facility] Last Admin: 02/01/19 09:15 Dose: 1 tablet Nystatin (Mycostatin Ointment -) 1 applic TP BID [facility] Last Admin: 02/01/19 00:07 Dose: 1 applic Ondansetron HCl (Zofran -) 4 mg PO Q6H PRN PRN Reason: NAUSEA AND/OR VOMITING Pantoprazole Sodium (Protonix Iv) 40 mg IVPUSH DAILY [facility] Last Admin: 02/01/19 09:12 Dose: 40 mg Rivaroxaban (Xarelto) 15 mg PO DAILY@1800 [facility] Last Admin: 01/31/19 17:40 Dose: 15 mg Sertraline HCl (Zoloft -) 50 mg PO DAILY [facility] Last Admin: 02/01/19 09:15 Dose: 50 mg Silver Sulfadiazine (Silvadene -) 1 applic TP BID [facility] Last Admin: 02/01/19 00:07 Dose: 1 applic Vital Signs Period Temp Pulse Resp BP Sys/Jhaveri Pulse Ox Last 24 Hr 97.4 F-99.5 F 75-106 16-29 88-127/49-84 100-100 Constitutional: Yes: No Distress, Calm, Obese Cardiovascular: Yes: Pulse Irregular, S1, S2. No: JVD (prohibitive tds phys exam), Gallop, Murmur Respiratory: Yes: Regular, CTA Bilaterally (anteriorly). No: Accessory Muscle Use Extremities: No: Cold Edema: No Neurological: No: Alert, Oriented Psychiatric: No: Agitated no jaundice, diaphoresis Assessment/Plan Echo 12/01: nl LV function, RV mod to severely dilated, RV function mod to severely reduced, mod dilated LA/RA, RVSP 40-50 mmHg, mod TR Echo 01/2019 - LV function slightly worsened, 45-50%, LA mod dilated, RV mod to severely dilated, tr AR, RV function mod to severely reduced, mild MR, mild to mod TR, RA mod to severely dilated, mobile echodensity in pleural space tele: AF, HR controlled, artifact, PVCs IMP: -Acute on chronic hypoxic/hypercapneic respiratory failure at HD, with bradycardia (40s-50s) -possible RLL PNA, sepsis -NSTEMI (troponin to 2): most likely Type II secondary to acute strain from CHF/ pulm HTN and acute resp failure, vs sec to hypotension at time of arrest. -septic shock on Levophed, doubt cardiogenic shock here -HFpEF, pulmonary HTN, RV dysfunction -ESRD on HD -h/o DVT /PE on AC REC: -Vent support -Pressors to maintain MAP 60mmHg--tolerating Levophed (weaning, now 4 mcg) without tachycardia. cont same (given possible recent ACS, if becomes tachycardic will have to reconsider--possibly vasopressin). -If develops signs of cool extremities or worsening hypotension, consider trial of milrinone for RV function - currently stable - repeat echo with LV function slightly worsened compared to prior, RV function is mod to severely reduced (stable) - repeat echo also shows echodensity in pleural space - consider chest imaging per critical care -HD as per renal for volume managment -Cont xarelto (anemia, PLTs stable) -hold AVN blockers (hypotension), HRs ok -cont midodrine for bp support at HD -will defer ischemia evaluation as this will not global climate change analyst. she is at prohibitive risk for invasive tx strategy given extremely poor functional status with severe comorbidities at present. hypotension (requires midodrine for bp support at HD at baseline) will not tolerate signif b-blockade, though will try to give low dose if can tolerate, once she is off pressors. -no ASA for now given pt on Xarelto with mild anemia/thrombocytopenia (and likely dysfunctional PLTs in HD pt), and hi risk for bleeding at present -if she recovers from the acute illness will potentially reconsider above approach estimated critical care time - 35 min
--- NOTE | 2019-02-01 12:12 | PN ---
Teaching Attending Note Name of Resident: Tigre Jones ATTENDING PHYSICIAN STATEMENT I saw and evaluated the patient. I reviewed the resident's note and discussed the case with the resident. I agree with the resident's findings and plan as documented. SUBJECTIVE: Pt seen and examined in the ICU. Remains intubated, more awake off sedation. Dialyzed yesterday with improvement in CXR findings. Remains on low dose pressor support. OBJECTIVE: Vital Signs Period Temp Pulse Resp BP Sys/Jhaveri Pulse Ox Last 24 Hr 97.4 F-99.5 F 75-106 12-29 88-127/49-84 100-100 Intake & Output 01/29/19 01/30/19 01/31/19 02/01/19 23:59 23:59 23:59 23:59 Intake Total 2769 1673 2514 849 Output Total 2300 0 2700 0 Balance 469 1673 -186 849 Weight 84.912 kg 83.597 kg 85.4 kg 84.277 kg Gen: intubated, arousable Heart: RRR Lung: scattered rhonchi Abd: soft, nontender Ext: + edema CBC, BMP 02/01/19 05:20 02/01/19 05:20 Active Medications Acetaminophen (Tylenol -) 650 mg PO Q4H PRN PRN Reason: PAIN Last Admin: 02/01/19 00:06 Dose: 650 mg Albuterol Sulfate (Ventolin 0.083% Nebulizer Soln -) 1 amp NEB Q6H PRN PRN Reason: SHORT OF BREATH/WHEEZING Amino Acids (Prosource No Carb Liquid Pkt) 30 ml PO BID@0800,1730 [facility] Last Admin: 02/01/19 09:12 Dose: 30 ml Chlorhexidine Gluconate (Peridex -) 15 ml MM BID [facility] Last Admin: 02/01/19 09:12 Dose: 15 ml Norepinephrine Bitartrate 8, (000 mcg/ Dextrose) 500 mls @ 18.75 mls/hr IV TITR [facility]; Protocol Last Titration: 02/01/19 06:30 Dose: 4 mcg/min, 15 mls/hr Piperacillin Sod/Tazobactam (Sod 2.25 gm/ Dextrose) 50 mls @ 100 mls/hr IVPB Q8H-IV [facility]; Protocol Last Admin: 02/01/19 09:12 Dose: 100 mls/hr Sodium Chloride (Normal Saline -) 250 mls @ 3,000 mls/hr IV PRN PRN PRN Reason: Hypotension during Dialysis Stop: 02/01/19 13:39 Insulin Aspart (Novolog Vial Sliding Scale -) 1 vial SQ Q6HPO [facility]; Protocol Last Admin: 02/01/19 06:04 Dose: Not Given Levothyroxine Sodium (Synthroid -) 50 mcg PO DAILY@0700 [facility] Last Admin: 02/01/19 06:15 Dose: 50 mcg Lidocaine/Prilocaine (Emla -) 1 applic TP QID PRN PRN Reason: HEMORRHOIDS Midazolam HCl (Versed -) 2 mg IVPUSH Q2H PRN PRN Reason: AGITATION Last Admin: 02/01/19 00:17 Dose: 2 mg Midodrine (Proamatine -) 10 mg PO TID-MID [facility] Last Admin: 02/01/19 09:15 Dose: 10 mg Multivit/Ca Carb/B Cmplx/FA/Prenat (Nephro-Evert -) 1 tablet PO DAILY [facility] Last Admin: 02/01/19 09:15 Dose: 1 tablet Nystatin (Mycostatin Ointment -) 1 applic TP BID [facility] Last Admin: 02/01/19 00:07 Dose: 1 applic Ondansetron HCl (Zofran -) 4 mg PO Q6H PRN PRN Reason: NAUSEA AND/OR VOMITING Pantoprazole Sodium (Protonix Iv) 40 mg IVPUSH DAILY [facility] Last Admin: 02/01/19 09:12 Dose: 40 mg Rivaroxaban (Xarelto) 15 mg PO DAILY@1800 [facility] Last Admin: 01/31/19 17:40 Dose: 15 mg Sertraline HCl (Zoloft -) 50 mg PO DAILY [facility] Last Admin: 02/01/19 09:15 Dose: 50 mg Silver Sulfadiazine (Silvadene -) 1 applic TP BID [facility] Last Admin: 02/01/19 00:07 Dose: 1 applic ASSESSMENT AND PLAN: Acute on Chronic Hypoxic and Hypercapneic Respiratory Failure r/o Pneumonia Shock likely Septic Volume Overload ESRD on HD +Troponins likely Demand Ischemia Pulmonary HTN h/o PE/DVT - continue antibiotics - taper pressors to maintain MAP >55 - continue midodrine - HD per renal with ultrafiltration - taper FiO2 to keep SpO2 >90% - continue anticoagulation - minimize sedation to assess mental status - spontaneous breathing trials as tolerated - enteral feeds - DVT/GI prophylaxis critical care time spent in reviewing chart, evaluating patient and formulating plan 35 min
[2019-02-01] MEDS: NOREPINEPHRINE BITARTRATE 8,000 MCG in DEXTROSE 5%-WATER - 492 ML IV SCH (12:22)
--- NOTE | 2019-02-01 12:23 | PN ---
Physical Exam: SUBJECTIVE: Patient seen and examined at the bedside. Yesterday, HD was performed and patient had 2.2L taken off which patient tolerated well. Off sedation for all of the night and this morning was responding to commands. Was placed on CPAP mode as trial for extubation however was not able to tolerate weaning as respiratory rate was elevated in the 40s. Edema improved. OBJECTIVE: Vital Signs Period Temp Pulse Resp BP Sys/Jhaveri Pulse Ox Last 24 Hr 97.4 F-99.5 F 75-106 12-29 88-127/49-84 100-100 GENERAL: Intubated. Not sedated. Lethargic at times. HEAD: Normal with no signs of trauma. EYES: Pupils equal, round and normal reaction to light, sclera anicteric, conjunctiva clear. EARS, NOSE, THROAT: Orotracheal tube in place, no secretions present NECK: No JVD or masses noted LUNGS: Breath sounds equal, with mechanical breath sounds heard and coarse sounds throughout, decreased at the bases. R>L breath sounds. HEART: Irregular rhythm, normal rate, S1 and S2 without murmur, rub. ABDOMEN: Soft, moderately distended, normoactive bowel sounds, obese abdomen with non-symmetrical appearance EXTREMITIES: 2+ peripheral edema on the R, 1+ on the L on upper extremity. No calf tenderness. Trace peripheral edema on lower extremities. NEUROLOGICAL: Unable to assess SKIN: Cool, moist skin, diffuse ecchymoses noted Laboratory Results - last 24 hr 01/31/19 01/31/19 02/01/19 11:48 16:38 00:37 WBC RBC Hgb Hct MCV MCH MCHC RDW Plt Count MPV Sodium Potassium Chloride Carbon Dioxide Anion Gap BUN Creatinine Est GFR (CKD-EPI)AfAm Est GFR (CKD-EPI)NonAf POC Glucometer 148 130 156 Random Glucose Calcium Phosphorus Magnesium Random Vancomycin 02/01/19 02/01/19 02/01/19 05:20 05:20 05:20 WBC 5.9 RBC 3.06 L Hgb 9.3 L Hct 28.8 L MCV 93.9 MCH 30.4 MCHC 32.4 RDW 19.1 H Plt Count 153 D MPV 8.8 Sodium 137 Potassium 3.3 L Chloride 99 Carbon Dioxide 29 Anion Gap 9 BUN 25.2 H Creatinine 2.2 H Est GFR (CKD-EPI)AfAm 25.30 Est GFR (CKD-EPI)NonAf 21.83 POC Glucometer Random Glucose 156 H Calcium 8.9 Phosphorus 3.1 Magnesium 2.1 Random Vancomycin 13.0 L 02/01/19 06:00 WBC RBC Hgb Hct MCV MCH MCHC RDW Plt Count MPV Sodium Potassium Chloride Carbon Dioxide Anion Gap BUN Creatinine Est GFR (CKD-EPI)AfAm Est GFR (CKD-EPI)NonAf POC Glucometer 136 Random Glucose Calcium Phosphorus Magnesium Random Vancomycin Active Medications Generic Name Dose Route Start Last Admin Trade Name Freq PRN Reason Stop Dose Admin Acetaminophen 650 mg 01/30/19 20:41 02/01/19 00:06 Tylenol - PO 650 mg Q4H PRN Administration PAIN Albuterol Sulfate 1 amp 01/27/19 01:54 Ventolin 0.083% Nebulizer Soln - NEB Q6H PRN SHORT OF BREATH/WHEEZING Amino Acids 30 ml 01/31/19 17:30 02/01/19 09:12 Prosource No Carb Liquid Pkt PO 30 ml BID@0800,1730 [facility] Administration Chlorhexidine Gluconate 15 ml 01/31/19 10:00 02/01/19 09:12 Peridex - MM 15 ml BID [facility] Administration Norepinephrine Bitartrate 8, 500 mls @ 18.75 mls/hr 01/28/19 11:15 02/01/19 06:30 000 mcg/ Dextrose IV 4 mcg/min TITR [facility] 15 mls/hr Titration Protocol 5 MCG/MIN Piperacillin Sod/Tazobactam 50 mls @ 100 mls/hr 01/30/19 18:00 02/01/19 09:12 Sod 2.25 gm/ Dextrose IVPB 100 mls/hr Q8H-IV [facility] Administration Protocol Sodium Chloride 250 mls @ 3,000 mls/hr 01/31/19 13:39 Normal Saline - IV 02/01/19 13:39 PRN PRN Hypotension during Dialysis Insulin Aspart 1 vial 01/27/19 12:00 02/01/19 06:04 Novolog Vial Sliding Scale - SQ Not Given Q6HPO [facility] Protocol Levothyroxine Sodium 50 mcg 01/27/19 07:00 02/01/19 06:15 Synthroid - PO 50 mcg DAILY@0700 [facility] Administration Lidocaine/Prilocaine 1 applic 01/27/19 01:55 Emla - TP QID PRN HEMORRHOIDS Midazolam HCl 2 mg 02/01/19 00:09 02/01/19 00:17 Versed - IVPUSH 2 mg Q2H PRN Administration AGITATION Midodrine 10 mg 01/27/19 14:30 02/01/19 09:15 Proamatine - PO 10 mg TID-MID [facility] Administration Multivit/Ca Carb/B Cmplx/FA/Prenat 1 tablet 01/27/19 10:00 02/01/19 09:15 Nephro-Evert - PO 1 tablet DAILY [facility] Administration Nystatin 1 applic 01/27/19 22:00 02/01/19 00:07 Mycostatin Ointment - TP 1 applic BID [facility] Administration Ondansetron HCl 4 mg 01/27/19 01:57 Zofran - PO Q6H PRN NAUSEA AND/OR VOMITING Pantoprazole Sodium 40 mg 01/31/19 10:00 02/01/19 09:12 Protonix Iv IVPUSH 40 mg DAILY [facility] Administration Rivaroxaban 15 mg 01/27/19 18:00 01/31/19 17:40 Xarelto PO 15 mg DAILY@1800 [facility] Administration Sertraline HCl 50 mg 01/27/19 10:00 02/01/19 09:15 Zoloft - PO 50 mg DAILY [facility] Administration Silver Sulfadiazine 1 applic 01/27/19 10:00 02/01/19 00:07 Silvadene - TP 1 applic BID [facility] Administration ASSESSMENT/PLAN: Argelia Patel is a 73 year old female with a PMHx of ESRD, Orthostatic Hypotension, CHF, DM, hypothyroid, COPD, Afib (on Xarelto), DVTs, Pulmonary Edema and multiple admissions for PNA (including intubation) admitted to the ICU for unresponsiveness secondary to acute respiratory failure likely from hypercapneia and hypotension from fluid removal during dialysis. Acute Hypercapneic Respiratory Failure Hypotension ESRD CHF DM Hypothyroidism Atrial fibrillation NEUROLOGIC - intubated - getting intermittent sedation with Versed as needed for agitation in order be synchronous with the ventilator - head CT with no acute intracranial pathology, possible mastoiditis and sinusitis CARDIOLOGY - on Levophed, on 4mcq this morning, titrate down as tolerated, double concentrated to reduce fluid volume given - EKG showing afib with RVR with occasional PVCs, poor study - repeat EKG showing no acute changes from EKG done on 01/19/19, low voltage study , afib - troponins elevated at 0.18 trended up to 0.89 > 1.85 > 2.46 > 2.1, likely demand in setting of hypovolemia, downtrending - previous echo 12/08/18 showing normal EF, moderate to severe right ventricle dilation, increased right ventricular systolic pressure - monitor I+Os - digoxin level 0.10 - Cardiology consulted, appreciate recs - continue Xarelto for afib - if worsening hypotension, can consider milrinone for RV function - MAP goals of 55-60 RESPIRATORY - intubated - vent settings 450, rate 16, O2 30, PEEP 5 - original ABG showing pH 7.21, CO2 52.9, O2 142, respiratory acidosis and concurrent non anion gap metabolic acidosis in the setting of hypercapneia and renal failure - repeat ABG showing continuation of hypercapneia and acidosis, vent settings adjusted to increase rate and decrease CO2 - CXR today showing continued pleural effusions and atelectasis, improved greatly from previous CXR - failed trial of weaning today, will attempt further trials and exercise patient's lung as tolerated RENAL - Dr. Molina consulted - HD yesterday, removed 2.2L - albumin given - HD as per renal GASTROINTESTINAL - no acute issues - OG tube in, getting tube feeds GENITOURINARY - zhang in INFECTIOUS DISEASE - hypotensive, no WBC, afebrile - unclear if infection is contributing to low BP, cannot r/o lung source or wound source - hx of cdiff, cautious approach to continuing antibiotics - blood cxs negative - random vanco level today 13.0 - redose vanco 1g today - recheck random vanco level in AM - zosyn 2.25gm q8h as recommended with CrCl 20 - 40 as per UptoDate - ID following, appreciate recommendations ENDOCRINE - continue home Synthroid - BGM q6h - ISS HEMATOLOGY - Hgb 9.3, stable - FOBT ordered, no acute source of bleed - thrombocytopenia, improved, continue to monitor F/E/N - no standing fluids - continue to monitor electrolytes and replete as necessary, less aggressive hypokalemia and hypophospatemia replacement in setting of ESRD - Nepro enteral feeds LINES - L femoral central line placed 01/26, will need prolonged access due to difficulty in obtaining access elsewhere, stenosis centrally - R femoral Tesio catheter PROPHYLAXIS - home Xarelto CODE - full code DISPO - continue to monitor in ICU - Family discussion on goals of care Visit type - Emergency Visit Emergency Visit: No - New Patient This patient is new to me today: No - Critical Care Critical Care patient: Yes Total Critical Care Time (in minutes): 38 Critical Care Statement: The care of this patient involved high complexity decision making to prevent further life threatening deterioration of the patient 's condition and/or to evaluate & treat vital organ system(s) failure or risk of failure.
[2019-02-01] MEDS: VANCOMYCIN 1 GM in D5W (PRE-DOCKED) 1,000 MG/250 ML IVPB ONE ×2 (13:07→13:08)
[2019-02-01] MEDS ORDERED: SODIUM CHLORIDE 250 ML IV PRN (13:46)
--- NOTE | 2019-02-01 13:46 | PN ---
Progress Note, Physician History of Present Illness: Pt seen and examined at bedside. She remains in the ICU. She remains intubated. - Current Medication List Current Medications: Active Medications Acetaminophen (Tylenol -) 650 mg PO Q4H PRN PRN Reason: PAIN Last Admin: 02/01/19 00:06 Dose: 650 mg Albuterol Sulfate (Ventolin 0.083% Nebulizer Soln -) 1 amp NEB Q6H PRN PRN Reason: SHORT OF BREATH/WHEEZING Amino Acids (Prosource No Carb Liquid Pkt) 30 ml PO BID@0800,1730 [facility] Last Admin: 02/01/19 09:12 Dose: 30 ml Chlorhexidine Gluconate (Peridex -) 15 ml MM BID [facility] Last Admin: 02/01/19 09:12 Dose: 15 ml Norepinephrine Bitartrate 8, (000 mcg/ Dextrose) 500 mls @ 18.75 mls/hr IV TITR [facility]; Protocol Last Admin: 02/01/19 12:22 Dose: 4 mcg/min, 15 mls/hr Piperacillin Sod/Tazobactam (Sod 2.25 gm/ Dextrose) 50 mls @ 100 mls/hr IVPB Q8H-IV [facility]; Protocol Last Admin: 02/01/19 09:12 Dose: 100 mls/hr Insulin Aspart (Novolog Vial Sliding Scale -) 1 vial SQ Q6HPO [facility]; Protocol Last Admin: 02/01/19 12:24 Dose: 2 units Levothyroxine Sodium (Synthroid -) 50 mcg PO DAILY@0700 [facility] Last Admin: 02/01/19 06:15 Dose: 50 mcg Lidocaine/Prilocaine (Emla -) 1 applic TP QID PRN PRN Reason: HEMORRHOIDS Midazolam HCl (Versed -) 2 mg IVPUSH Q2H PRN PRN Reason: AGITATION Last Admin: 02/01/19 00:17 Dose: 2 mg Midodrine (Proamatine -) 10 mg PO TID-MID [facility] Last Admin: 02/01/19 13:16 Dose: 10 mg Multivit/Ca Carb/B Cmplx/FA/Prenat (Nephro-Evert -) 1 tablet PO DAILY [facility] Last Admin: 02/01/19 09:15 Dose: 1 tablet Nystatin (Mycostatin Ointment -) 1 applic TP BID [facility] Last Admin: 02/01/19 12:25 Dose: 1 applic Ondansetron HCl (Zofran -) 4 mg PO Q6H PRN PRN Reason: NAUSEA AND/OR VOMITING Pantoprazole Sodium (Protonix Iv) 40 mg IVPUSH DAILY [facility] Last Admin: 02/01/19 09:12 Dose: 40 mg Rivaroxaban (Xarelto) 15 mg PO DAILY@1800 [facility] Last Admin: 01/31/19 17:40 Dose: 15 mg Sertraline HCl (Zoloft -) 50 mg PO DAILY [facility] Last Admin: 02/01/19 09:15 Dose: 50 mg Silver Sulfadiazine (Silvadene -) 1 applic TP BID [facility] Last Admin: 02/01/19 12:22 Dose: 1 applic - Objective Vital Signs: Vital Signs Temperature 98.8 F 02/01/19 13:00 Pulse Rate 82 02/01/19 13:00 Respiratory Rate 14 02/01/19 13:00 Blood Pressure 96/53 L 02/01/19 13:00 O2 Sat by Pulse Oximetry (%) 100 02/01/19 10:31 Constitutional: Yes: Calm Eyes: Yes: Conjunctiva Clear HENT: Yes: Atraumatic Neck: Yes: Supple Cardiovascular: Yes: S1, S2 Respiratory: Yes: Intubated, Mechanically Ventilated Gastrointestinal: Yes: Soft, Abdomen, Obese Genitourinary: Yes: Incontinence Musculoskeletal: Yes: Muscle Weakness Edema: LUE: 1+, RUE: 1+ Neurological: Yes: Lethargy Labs: CBC, BMP 02/01/19 05:20 02/01/19 05:20 INR, PTT INR 1.76 (0.83-1.09) H 01/27/19 05:45 Problem List - Problems (1) Acute respiratory failure Code(s): J96.00 - ACUTE RESPIRATORY FAILURE, UNSP W HYPOXIA OR HYPERCAPNIA Qualifiers: Respiratory failure complication: hypoxia Qualified Code(s): J96.01 - Acute respiratory failure with hypoxia (2) ESRD on hemodialysis Code(s): N18.6 - END STAGE RENAL DISEASE; Z99.2 - DEPENDENCE ON RENAL DIALYSIS Assessment/Plan Current Medications Generic Name Dose Route Start Last Admin Trade Name Freq PRN Reason Stop Dose Admin Acetaminophen 650 mg 01/30/19 20:41 02/01/19 00:06 Tylenol - PO 650 mg Q4H PRN Administration PAIN Albuterol Sulfate 1 amp 01/27/19 01:54 Ventolin 0.083% Nebulizer Soln - NEB Q6H PRN SHORT OF BREATH/WHEEZING Amino Acids 30 ml 01/31/19 17:30 02/01/19 09:12 Prosource No Carb Liquid Pkt PO 30 ml BID@0800,1730 [facility] Administration Chlorhexidine Gluconate 15 ml 01/31/19 10:00 02/01/19 09:12 Peridex - MM 15 ml BID [facility] Administration Norepinephrine Bitartrate 8, 500 mls @ 18.75 mls/hr 01/28/19 11:15 02/01/19 12:22 000 mcg/ Dextrose IV 4 mcg/min TITR [facility] 15 mls/hr Administration Protocol 5 MCG/MIN Piperacillin Sod/Tazobactam 50 mls @ 100 mls/hr 01/30/19 18:00 02/01/19 09:12 Sod 2.25 gm/ Dextrose IVPB 100 mls/hr Q8H-IV [facility] Administration Protocol Insulin Aspart 1 vial 01/27/19 12:00 02/01/19 12:24 Novolog Vial Sliding Scale - SQ 2 units Q6HPO [facility] Administration Protocol Levothyroxine Sodium 50 mcg 01/27/19 07:00 02/01/19 06:15 Synthroid - PO 50 mcg DAILY@0700 [facility] Administration Lidocaine/Prilocaine 1 applic 01/27/19 01:55 Emla - TP QID PRN HEMORRHOIDS Midazolam HCl 2 mg 02/01/19 00:09 02/01/19 00:17 Versed - IVPUSH 2 mg Q2H PRN Administration AGITATION Midodrine 10 mg 01/27/19 14:30 02/01/19 13:16 Proamatine - PO 10 mg TID-MID [facility] Administration Multivit/Ca Carb/B Cmplx/FA/Prenat 1 tablet 01/27/19 10:00 02/01/19 09:15 Nephro-Evert - PO 1 tablet DAILY [facility] Administration Nystatin 1 applic 01/27/19 22:00 02/01/19 12:25 Mycostatin Ointment - TP 1 applic BID [facility] Administration Ondansetron HCl 4 mg 01/27/19 01:57 Zofran - PO Q6H PRN NAUSEA AND/OR VOMITING Pantoprazole Sodium 40 mg 01/31/19 10:00 02/01/19 09:12 Protonix Iv IVPUSH 40 mg DAILY [facility] Administration Rivaroxaban 15 mg 01/27/19 18:00 01/31/19 17:40 Xarelto PO 15 mg DAILY@1800 [facility] Administration Sertraline HCl 50 mg 01/27/19 10:00 02/01/19 09:15 Zoloft - PO 50 mg DAILY [facility] Administration Silver Sulfadiazine 1 applic 01/27/19 10:00 02/01/19 12:22 Silvadene - TP 1 applic BID [facility] Administration Impression 1. ESRD 2. change in mental status 3. resp failure requiring intubation 4. chf 5. dvt 6. anemia 7. a-fib 8. hypothyroid 9. pleural effusion Plan - vent support - HD tomorrow - cont tube feeds - will UF volume on HD tomorrow - maintain map of 65 - monitor pulse ox - HD right thigh cath, 3 k bath, 3 15 time, 400 abf
--- NOTE | 2019-02-01 15:40 | PN ---
Progress Note, Physician Chief Complaint: MORE ALERT ON LESS SEDATION NO ACUTE CHANGES OVERNIGHT - Current Medication List Current Medications: Active Medications Acetaminophen (Tylenol -) 650 mg PO Q4H PRN PRN Reason: PAIN Last Admin: 02/01/19 00:06 Dose: 650 mg Albumin Human (Albumin Human 25%) 12.5 gm IVPB Q30M [facility] Albuterol Sulfate (Ventolin 0.083% Nebulizer Soln -) 1 amp NEB Q6H PRN PRN Reason: SHORT OF BREATH/WHEEZING Amino Acids (Prosource No Carb Liquid Pkt) 30 ml PO BID@0800,1730 [facility] Last Admin: 02/01/19 09:12 Dose: 30 ml Chlorhexidine Gluconate (Peridex -) 15 ml MM BID [facility] Last Admin: 02/01/19 09:12 Dose: 15 ml Epoetin Memo (Epogen -) 8,000 unit IVPUSH ONCE ONE Stop: 02/02/19 13:47 Norepinephrine Bitartrate 8, (000 mcg/ Dextrose) 500 mls @ 18.75 mls/hr IV TITR [facility]; Protocol Last Admin: 02/01/19 12:22 Dose: 4 mcg/min, 15 mls/hr Piperacillin Sod/Tazobactam (Sod 2.25 gm/ Dextrose) 50 mls @ 100 mls/hr IVPB Q8H-IV [facility]; Protocol Last Admin: 02/01/19 09:12 Dose: 100 mls/hr Sodium Chloride (Normal Saline -) 250 mls @ 3,000 mls/hr IV PRN PRN PRN Reason: Hypotension during Dialysis Stop: 02/02/19 13:46 Insulin Aspart (Novolog Vial Sliding Scale -) 1 vial SQ Q6HPO [facility]; Protocol Last Admin: 02/01/19 12:24 Dose: 2 units Levothyroxine Sodium (Synthroid -) 50 mcg PO DAILY@0700 [facility] Last Admin: 02/01/19 06:15 Dose: 50 mcg Lidocaine/Prilocaine (Emla -) 1 applic TP QID PRN PRN Reason: HEMORRHOIDS Midazolam HCl (Versed -) 2 mg IVPUSH Q2H PRN PRN Reason: AGITATION Last Admin: 02/01/19 00:17 Dose: 2 mg Midodrine (Proamatine -) 10 mg PO TID-MID [facility] Last Admin: 02/01/19 13:16 Dose: 10 mg Multivit/Ca Carb/B Cmplx/FA/Prenat (Nephro-Evert -) 1 tablet PO DAILY [facility] Last Admin: 02/01/19 09:15 Dose: 1 tablet Nystatin (Mycostatin Ointment -) 1 applic TP BID [facility] Last Admin: 02/01/19 12:25 Dose: 1 applic Ondansetron HCl (Zofran -) 4 mg PO Q6H PRN PRN Reason: NAUSEA AND/OR VOMITING Pantoprazole Sodium (Protonix Iv) 40 mg IVPUSH DAILY [facility] Last Admin: 02/01/19 09:12 Dose: 40 mg Rivaroxaban (Xarelto) 15 mg PO DAILY@1800 [facility] Last Admin: 01/31/19 17:40 Dose: 15 mg Sertraline HCl (Zoloft -) 50 mg PO DAILY [facility] Last Admin: 02/01/19 09:15 Dose: 50 mg Silver Sulfadiazine (Silvadene -) 1 applic TP BID [facility] Last Admin: 02/01/19 12:22 Dose: 1 applic - Objective Vital Signs: Vital Signs Temperature 98.8 F 02/01/19 13:00 Pulse Rate 82 02/01/19 13:00 Respiratory Rate 16 02/01/19 15:24 Blood Pressure 96/53 L 02/01/19 13:00 O2 Sat by Pulse Oximetry (%) 100 02/01/19 10:31 Constitutional: Yes: Mild Distress Cardiovascular: Yes: Tachycardia Respiratory: Yes: Diminished, Mechanically Ventilated Gastrointestinal: Yes: Soft Genitourinary: Yes: Other Musculoskeletal: Yes: Muscle Weakness Edema: No Neurological: Yes: Confusion Labs: CBC, BMP 02/01/19 05:20 02/01/19 05:20 INR, PTT INR 1.76 (0.83-1.09) H 01/27/19 05:45 Problem List - Problems (1) Acute respiratory failure Code(s): J96.00 - ACUTE RESPIRATORY FAILURE, UNSP W HYPOXIA OR HYPERCAPNIA Qualifiers: Respiratory failure complication: hypoxia Qualified Code(s): J96.01 - Acute respiratory failure with hypoxia (2) ESRD on hemodialysis Code(s): N18.6 - END STAGE RENAL DISEASE; Z99.2 - DEPENDENCE ON RENAL DIALYSIS (3) Hypotension Code(s): I95.9 - HYPOTENSION, UNSPECIFIED Qualifiers: Hypotension type: unspecified hypotension type Qualified Code(s): I95.9 - Hypotension, unspecified (4) Acute exacerbation of congestive heart failure Code(s): I50.9 - HEART FAILURE, UNSPECIFIED (5) Acute on chronic respiratory failure with hypoxia and hypercapnia Code(s): J96.21 - ACUTE AND CHRONIC RESPIRATORY FAILURE WITH HYPOXIA; J96.22 - ACUTE AND CHRONIC RESPIRATORY FAILURE WITH HYPERCAPNIA (6) Afib Code(s): I48.91 - UNSPECIFIED ATRIAL FIBRILLATION (7) Functional quadriplegia Code(s): R53.2 - FUNCTIONAL QUADRIPLEGIA (8) H/O deep venous thrombosis Code(s): Z86.718 - PERSONAL HISTORY OF OTHER VENOUS THROMBOSIS AND EMBOLISM (9) Hypothyroid Code(s): E03.9 - HYPOTHYROIDISM, UNSPECIFIED Assessment/Plan VENT DEPENDENT WILL NEED TO DIURESE PER PULMONARY FOR SAFER EXTUBATION. IV ABX PER ID F/U CULTURES LABS REVIEWED HD PER RENAL FULL CODE STATUS D/W TITUS [place]
[2019-02-01] MEDS ORDERED: NOREPINEPHRINE BITARTRATE 4 MG/4 ML ML IV ONE (17:28)
[2019-02-01] MEDS ORDERED: PT OWN MED DRAWER 7, Y5N ONE (17:41)
[2019-02-01] MEDS: RIVAROXABAN 15 MG TABLET PO SCH (17:41)
[2019-02-02] MEDS: PIPERACILLIN/TAZOB 2.25 GM 2.25 GM in DEXTROSE 5%-WATER - 50 ML IVPB SCH ×2 (02:00→10:29)
[2019-02-02] MEDS ORDERED: PIPERACILLIN/TAZOBACTAM 2.25 GM VIAL IVPB ONE ×2 (03:25→10:25)
[2019-02-02] MEDS ORDERED: DEXTROSE 5%-WATER - 50 ML IVPB ONE ×2 (03:25→10:25)
[2019-02-02] MEDS: LEVOTHYROXINE NA 50 MCG TABLET (FP) PO SCH (06:30)
[2019-02-02] MEDS: INSULIN SLIDING SCALE (NOVOLOG) 1 VIAL SQ SCH ×2 (06:31→17:00)
--- NOTE | 2019-02-02 07:17 | PN ---
Physical Exam: SUBJECTIVE: No acute events overnight. Remains intubated and with intermittent pushes of sedation for synchrony. Pt remains on Levophed 3mcg currently with MAPs of 60-65. Pt's edema improving, however present with last dialysis Thursday ( 2.2kg removed) OBJECTIVE: Vital Signs Period Temp Pulse Resp BP Sys/Jhaveri Pulse Ox Last 24 Hr 98.3 F-99.8 F 77-91 12-29 96-119/53-69 96-100 GENERAL: The patient is awake, alert, and fully oriented, in no acute distress. HEENT: Nc/At, pupils 3mm and reactive to light, sclera anicteric, MMM NECK: Short neck, no JVD appreciated LUNGS: Coarse breath sounds bilaterally, no wheezes, no crackles, no accessory muscle use. HEART: RRR, S1, S2 with 3/6 systolic murmur heard at the LLSB and 2/6 diastolic murmur at the RUSB. ABDOMEN: Soft, no grimmacing noted with palpation, no distention, freely reducible ventral hernia without skin changes, hypoactive BS. : L groin TLC site C/D/I. R groin dialysis catheter site C/D/I EXTREMITIES: 2+ R upper ext edema, trace L upper ext. edema, trace lower extremity edema (R>L), 1+ pulses distally b/l, warm SKIN: Warm, dry, areas of skin breakdown on upper extremities without signs of infection covered with bandage, sacral region with excoriations noted without any exudates or drainage Laboratory Results 02/01/19 02/01/19 02/01/19 11:50 16:22 21:14 POC Glucometer 177 179 162 02/02/19 06:13 POC Glucometer 154 Active Medications Generic Name Dose Route Start Last Admin Trade Name Freq PRN Reason Stop Dose Admin Acetaminophen 650 mg 01/30/19 20:41 02/01/19 00:06 Tylenol - PO 650 mg Q4H PRN Administration PAIN Albumin Human 12.5 gm 02/02/19 14:00 Albumin Human 25% IVPB Q30M [facility] Albuterol Sulfate 1 amp 01/27/19 01:54 Ventolin 0.083% Nebulizer Soln - NEB Q6H PRN SHORT OF BREATH/WHEEZING Amino Acids 30 ml 01/31/19 17:30 02/01/19 16:47 Prosource No Carb Liquid Pkt PO 30 ml BID@0800,1730 [facility] Administration Chlorhexidine Gluconate 15 ml 01/31/19 10:00 02/01/19 21:26 Peridex - MM 15 ml BID [facility] Administration Epoetin Memo 8,000 unit 02/02/19 13:46 Epogen - IVPUSH 02/02/19 13:47 ONCE ONE Norepinephrine Bitartrate 8, 500 mls @ 18.75 mls/hr 01/28/19 11:15 02/01/19 12:22 000 mcg/ Dextrose IV 4 mcg/min TITR [facility] 15 mls/hr Administration Protocol 5 MCG/MIN Piperacillin Sod/Tazobactam 50 mls @ 100 mls/hr 01/30/19 18:00 02/02/19 02:00 Sod 2.25 gm/ Dextrose IVPB 100 mls/hr Q8H-IV [facility] Administration Protocol Sodium Chloride 250 mls @ 3,000 mls/hr 02/01/19 13:46 Normal Saline - IV 02/02/19 13:46 PRN PRN Hypotension during Dialysis Insulin Aspart 1 vial 01/27/19 12:00 02/02/19 06:31 Novolog Vial Sliding Scale - SQ 2 units Q6HPO [facility] Administration Protocol Levothyroxine Sodium 50 mcg 01/27/19 07:00 02/02/19 06:30 Synthroid - PO 50 mcg DAILY@0700 [facility] Administration Lidocaine/Prilocaine 1 applic 01/27/19 01:55 Emla - TP QID PRN HEMORRHOIDS Midazolam HCl 2 mg 02/01/19 00:09 02/01/19 00:17 Versed - IVPUSH 2 mg Q2H PRN Administration AGITATION Midodrine 10 mg 01/27/19 14:30 02/01/19 17:38 Proamatine - PO 10 mg TID-MID [facility] Administration Multivit/Ca Carb/B Cmplx/FA/Prenat 1 tablet 01/27/19 10:00 02/01/19 09:15 Nephro-Evert - PO 1 tablet DAILY [facility] Administration Nystatin 1 applic 01/27/19 22:00 02/01/19 21:26 Mycostatin Ointment - TP 1 applic BID [facility] Administration Ondansetron HCl 4 mg 01/27/19 01:57 Zofran - PO Q6H PRN NAUSEA AND/OR VOMITING Pantoprazole Sodium 40 mg 01/31/19 10:00 02/01/19 09:12 Protonix Iv IVPUSH 40 mg DAILY [facility] Administration Rivaroxaban 15 mg 01/27/19 18:00 02/01/19 17:41 Xarelto PO 15 mg DAILY@1800 [facility] Administration Sertraline HCl 50 mg 01/27/19 10:00 02/01/19 09:15 Zoloft - PO 50 mg DAILY [facility] Administration Silver Sulfadiazine 1 applic 01/27/19 10:00 02/01/19 21:26 Silvadene - TP 1 applic BID [facility] Administration ASSESSMENT/PLAN: Acute on chronic hypercapneic, hypoxic respiratory failure Septic shock 2/2 to possible PNA ESRD on HD Demand ischemia H/o thrombus and PE development --Continue to wean pressors as tolerated; MAP of 55-60 goal considering pt's baseline vascular disease --Continue Midodrine 10mg TID --Wean trials to continue; if cannot wean off of ventilator will continue with Versed q2h PRN pushes for synchrony/pt comfort --Pt is day 7 of Zosyn --Discussed with ID about discontinuation --Continue GOC talks --HD to be performed today with volume to be removed --Appreciated all specialist recommendations FEN: Fluids: Avoid due to acute overload Electrolyte abnormalities: Hypokalemia (repleted liquid replacement via GT 40meQ x1) Nutrition: Nepro tube feeds at goal; hold with dialysis PPX: DVT - Already on Xarelto for AC GI - Protonix qdaily Dispo: continue to monitor in ICU due to pressors and ventilatory support Case discussed with Dr. Navneet Aragon, DO - IM PGY-3 Visit type - Emergency Visit Emergency Visit: Yes ED Registration Date: 01/26/19 Care time: The patient presented to the Emergency Department on the above date and was hospitalized for further evaluation of their emergent condition. - New Patient This patient is new to me today: No - Critical Care Critical Care patient: Yes Total Critical Care Time (in minutes): 35 Critical Care Statement: The care of this patient involved high complexity decision making to prevent further life threatening deterioration of the patient 's condition and/or to evaluate & treat vital organ system(s) failure or risk of failure.
[2019-02-02 08:05] LABS: HEMATOCRIT 27.6 % (32.4-45.2); HEMOGLOBIN 8.9 GM/dL (10.7-15.3); MCH 30.2 pg (25.7-33.7); MCHC 32.1 g/dl (32.0-36.0); MEAN CELL VOLUME 93.9 fl (80-96); MEAN PLT VOLUME 8.7 fl (7.5-11.1); PLATELET COUNT 197 K/MM3 (134-434); RBC 2.94 M/mm3 (3.60-5.2); RDW 18.3 % (11.6-15.6); WHITE BLOOD COUNT 6.5 K/mm3 (4.0-10.0)
[2019-02-02] MEDS: AMINO ACIDS/PROTEIN HYDROLYS 30 ML LIQUID.PKT PO SCH ×2 (08:18→18:30)
[2019-02-02 08:28] LABS: CREATININE 2.6 mg/dL (0.55-1.3); MAGNESIUM 2.2 mg/dL (1.8-2.4); PHOSPHOROUS 3.7 mg/dL (2.5-4.9); POTASSIUM 3.2 mmol/L (3.5-5.1)
[2019-02-02] MEDS ORDERED: POTASSIUM CHLORIDE ORAL LIQUID 20 MEQ/15 ML GT ONE (08:39)
--- NOTE | 2019-02-02 09:52 | PN ---
Progress Note (short form) - Note Progress Note: more awake still on low dose pressors remains intubated Vital Signs Period Temp Pulse Resp BP Sys/Jhaveri Pulse Ox Last 24 Hr 98.4 F-99.8 F 78-91 12-29 96-119/53-69 96-100 cor-rrr llungs decreased bs at bases abd soft,nt ext swelling of arms/hands unchanged femoral lines unchanged CBC, BMP 02/02/19 06:10 02/02/19 06:10 Microbiology 01/29/19 12:00 Blood - Peripheral Venous Blood Culture - Preliminary NO GROWTH OBTAINED AFTER 72 HOURS, INCUBATION TO CONTINUE FOR 2 DAYS. 01/29/19 12:00 Blood - Peripheral Venous Blood Culture - Preliminary NO GROWTH OBTAINED AFTER 72 HOURS, INCUBATION TO CONTINUE FOR 2 DAYS. 01/26/19 23:05 Blood - Peripheral Venous Blood Culture - Final NO GROWTH AFTER 5 DAYS INCUBATION 01/26/19 23:00 Blood - Peripheral Venous Blood Culture - Final NO GROWTH AFTER 5 DAYS INCUBATION Current Medications Acetaminophen (Tylenol -) 650 mg PO Q4H PRN PRN Reason: PAIN Last Admin: 02/01/19 00:06 Dose: 650 mg Albumin Human (Albumin Human 25%) 12.5 gm IVPB Q30M [facility] Albuterol Sulfate (Ventolin 0.083% Nebulizer Soln -) 1 amp NEB Q6H PRN PRN Reason: SHORT OF BREATH/WHEEZING Amino Acids (Prosource No Carb Liquid Pkt) 30 ml PO BID@0800,1730 [facility] Last Admin: 02/02/19 08:18 Dose: 30 ml Chlorhexidine Gluconate (Peridex -) 15 ml MM BID [facility] Last Admin: 02/01/19 21:26 Dose: 15 ml Epoetin Memo (Epogen -) 8,000 unit IVPUSH ONCE ONE Stop: 02/02/19 13:47 Norepinephrine Bitartrate 8, (000 mcg/ Dextrose) 500 mls @ 18.75 mls/hr IV TITR [facility]; Protocol Last Admin: 02/01/19 12:22 Dose: 4 mcg/min, 15 mls/hr Piperacillin Sod/Tazobactam (Sod 2.25 gm/ Dextrose) 50 mls @ 100 mls/hr IVPB Q8H-IV [facility]; Protocol Last Admin: 02/02/19 02:00 Dose: 100 mls/hr Sodium Chloride (Normal Saline -) 250 mls @ 3,000 mls/hr IV PRN PRN PRN Reason: Hypotension during Dialysis Stop: 02/02/19 13:46 Insulin Aspart (Novolog Vial Sliding Scale -) 1 vial SQ Q6HPO [facility]; Protocol Last Admin: 02/02/19 06:31 Dose: 2 units Levothyroxine Sodium (Synthroid -) 50 mcg PO DAILY@0700 [facility] Last Admin: 02/02/19 06:30 Dose: 50 mcg Lidocaine/Prilocaine (Emla -) 1 applic TP QID PRN PRN Reason: HEMORRHOIDS Midazolam HCl (Versed -) 2 mg IVPUSH Q2H PRN PRN Reason: AGITATION Last Admin: 02/01/19 00:17 Dose: 2 mg Midodrine (Proamatine -) 10 mg PO TID-MID [facility] Last Admin: 02/01/19 17:38 Dose: 10 mg Multivit/Ca Carb/B Cmplx/FA/Prenat (Nephro-Evert -) 1 tablet PO DAILY [facility] Last Admin: 02/01/19 09:15 Dose: 1 tablet Nystatin (Mycostatin Ointment -) 1 applic TP BID [facility] Last Admin: 02/01/19 21:26 Dose: 1 applic Ondansetron HCl (Zofran -) 4 mg PO Q6H PRN PRN Reason: NAUSEA AND/OR VOMITING Pantoprazole Sodium (Protonix Iv) 40 mg IVPUSH DAILY [facility] Last Admin: 02/01/19 09:12 Dose: 40 mg Rivaroxaban (Xarelto) 15 mg PO DAILY@1800 [facility] Last Admin: 02/01/19 17:41 Dose: 15 mg Sertraline HCl (Zoloft -) 50 mg PO DAILY [facility] Last Admin: 02/01/19 09:15 Dose: 50 mg Silver Sulfadiazine (Silvadene -) 1 applic TP BID [facility] Last Admin: 02/01/19 21:26 Dose: 1 applic a/p hypotension- remains pressor dependent midodrine resumed suspect this is not infectious cultures negative, d/c antibiotics today esrd/hd-per renal history of DVT no venous access in upper extremities, all lines are femoral consider repeat head ct if mental status does not improve day #7 zosyn, can d/c overall prognosis is poor d/w ICU housestaff
--- NOTE | 2019-02-02 10:18 | PN ---
Progress Note, Physician Chief Complaint: MORE AWAKE TODAY BLINKING TO COMMUNICATE EVENTS REVIEWED - Current Medication List Current Medications: Active Medications Acetaminophen (Tylenol -) 650 mg PO Q4H PRN PRN Reason: PAIN Last Admin: 02/01/19 00:06 Dose: 650 mg Albumin Human (Albumin Human 25%) 12.5 gm IVPB Q30M [facility] Albuterol Sulfate (Ventolin 0.083% Nebulizer Soln -) 1 amp NEB Q6H PRN PRN Reason: SHORT OF BREATH/WHEEZING Amino Acids (Prosource No Carb Liquid Pkt) 30 ml PO BID@0800,1730 [facility] Last Admin: 02/02/19 08:18 Dose: 30 ml Chlorhexidine Gluconate (Peridex -) 15 ml MM BID [facility] Last Admin: 02/01/19 21:26 Dose: 15 ml Collagenase (Santyl -) 1 applic TP DAILY [facility]; Protocol Epoetin Memo (Epogen -) 8,000 unit IVPUSH ONCE ONE Stop: 02/02/19 13:47 Norepinephrine Bitartrate 8, (000 mcg/ Dextrose) 500 mls @ 18.75 mls/hr IV TITR [facility]; Protocol Last Admin: 02/01/19 12:22 Dose: 4 mcg/min, 15 mls/hr Piperacillin Sod/Tazobactam (Sod 2.25 gm/ Dextrose) 50 mls @ 100 mls/hr IVPB Q8H-IV [facility]; Protocol Last Admin: 02/02/19 02:00 Dose: 100 mls/hr Sodium Chloride (Normal Saline -) 250 mls @ 3,000 mls/hr IV PRN PRN PRN Reason: Hypotension during Dialysis Stop: 02/02/19 13:46 Insulin Aspart (Novolog Vial Sliding Scale -) 1 vial SQ Q6HPO [facility]; Protocol Last Admin: 02/02/19 06:31 Dose: 2 units Levothyroxine Sodium (Synthroid -) 50 mcg PO DAILY@0700 [facility] Last Admin: 02/02/19 06:30 Dose: 50 mcg Lidocaine/Prilocaine (Emla -) 1 applic TP QID PRN PRN Reason: HEMORRHOIDS Midazolam HCl (Versed -) 2 mg IVPUSH Q2H PRN PRN Reason: AGITATION Last Admin: 02/01/19 00:17 Dose: 2 mg Midodrine (Proamatine -) 10 mg PO TID-MID [facility] Last Admin: 02/01/19 17:38 Dose: 10 mg Multivit/Ca Carb/B Cmplx/FA/Prenat (Nephro-Evert -) 1 tablet PO DAILY [facility] Last Admin: 02/01/19 09:15 Dose: 1 tablet Nystatin (Mycostatin Ointment -) 1 applic TP BID [facility] Last Admin: 02/01/19 21:26 Dose: 1 applic Ondansetron HCl (Zofran -) 4 mg PO Q6H PRN PRN Reason: NAUSEA AND/OR VOMITING Pantoprazole Sodium (Protonix Iv) 40 mg IVPUSH DAILY [facility] Last Admin: 02/01/19 09:12 Dose: 40 mg Rivaroxaban (Xarelto) 15 mg PO DAILY@1800 [facility] Last Admin: 02/01/19 17:41 Dose: 15 mg Sertraline HCl (Zoloft -) 50 mg PO DAILY [facility] Last Admin: 02/01/19 09:15 Dose: 50 mg Silver Sulfadiazine (Silvadene -) 1 applic TP BID [facility] Last Admin: 02/01/19 21:26 Dose: 1 applic - Objective Vital Signs: Vital Signs Temperature 98.9 F 02/02/19 06:00 Pulse Rate 82 02/02/19 08:00 Respiratory Rate 18 02/02/19 08:00 Blood Pressure 97/58 L 02/02/19 08:00 O2 Sat by Pulse Oximetry (%) 100 02/01/19 19:57 Constitutional: Yes: Mild Distress Cardiovascular: Yes: Pulse Irregular Respiratory: Yes: Diminished, Mechanically Ventilated Gastrointestinal: Yes: Soft, Abdomen, Obese Genitourinary: Yes: Incontinence, Other Musculoskeletal: Yes: Muscle Weakness Edema: Yes Integumentary: Yes: Pressure Ulcer Wound/Incision: Yes: Dressing Removed Neurological: Yes: Pre-Existing Deficit Labs: CBC, BMP 02/02/19 06:10 02/02/19 06:10 INR, PTT INR 1.76 (0.83-1.09) H 01/27/19 05:45 Problem List - Problems (1) Acute respiratory failure Code(s): J96.00 - ACUTE RESPIRATORY FAILURE, UNSP W HYPOXIA OR HYPERCAPNIA Qualifiers: Respiratory failure complication: hypoxia Qualified Code(s): J96.01 - Acute respiratory failure with hypoxia (2) ESRD on hemodialysis Code(s): N18.6 - END STAGE RENAL DISEASE; Z99.2 - DEPENDENCE ON RENAL DIALYSIS (3) Hypotension Code(s): I95.9 - HYPOTENSION, UNSPECIFIED Qualifiers: Hypotension type: unspecified hypotension type Qualified Code(s): I95.9 - Hypotension, unspecified (4) Acute exacerbation of congestive heart failure Code(s): I50.9 - HEART FAILURE, UNSPECIFIED (5) Acute on chronic respiratory failure with hypoxia and hypercapnia Code(s): J96.21 - ACUTE AND CHRONIC RESPIRATORY FAILURE WITH HYPOXIA; J96.22 - ACUTE AND CHRONIC RESPIRATORY FAILURE WITH HYPERCAPNIA (6) Afib Code(s): I48.91 - UNSPECIFIED ATRIAL FIBRILLATION (7) Functional quadriplegia Code(s): R53.2 - FUNCTIONAL QUADRIPLEGIA (8) H/O deep venous thrombosis Code(s): Z86.718 - PERSONAL HISTORY OF OTHER VENOUS THROMBOSIS AND EMBOLISM (9) Hypothyroid Code(s): E03.9 - HYPOTHYROIDISM, UNSPECIFIED Assessment/Plan COLLAGENASE TO [place] VENT DEPENDENT WILL NEED TO DIURESE PER PULMONARY FOR SAFER EXTUBATION. IV ABX PER ID F/U CULTURES LABS REVIEWED HD PER RENAL FULL CODE STATUS D/W TITUS DAUGHTER
[2019-02-02] MEDS ORDERED: PT OWN MED DRAWER 7, Y5N ONE (10:24)
[2019-02-02] MEDS: PANTOPRAZOLE SODIUM 40 MG VIAL IVPUSH SCH (10:29)
[2019-02-02] MEDS: MIDODRINE HCL 5 MG TABLET PO SCH ×3 (10:29→17:23)
[2019-02-02] MEDS: CHLORHEXIDINE GLUCONATE 0.12% 15ML CUP MM SCH ×2 (10:29→21:14)
[2019-02-02] MEDS: SERTRALINE HCL 50 MG TABLET (FP) PO SCH (10:29)
[2019-02-02] MEDS: VITAMIN B COMP W-C 1 EA TABLET PO SCH (10:29)
--- NOTE | 2019-02-02 11:30 | PN ---
Progress Note (short form) - Note Progress Note: intubated, not sedated. appears comfortable Vital Signs Period Temp Pulse Resp BP Sys/Jhaveri Pulse Ox Last 24 Hr 98.5 F-99.8 F 78-91 12-36 96-119/53-69 96-100 Constitutional: Yes: No Distress, Calm, Obese Cardiovascular: Yes: Pulse Irregular, S1, S2. No: JVD (prohibitive tds phys exam), Gallop, Murmur Respiratory: Yes: Regular, CTA Bilaterally (anteriorly). No: Accessory Muscle Use Extremities: No: Cold Edema: No Neurological: No: Alert, Oriented Psychiatric: No: Agitated no jaundice, diaphoresis Assessment/Plan Echo 12/01: nl LV function, RV mod to severely dilated, RV function mod to severely reduced, mod dilated LA/RA, RVSP 40-50 mmHg, mod TR Echo 01/2019 - LV function slightly worsened, 45-50%, LA mod dilated, RV mod to severely dilated, tr AR, RV function mod to severely reduced, mild MR, mild to mod TR, RA mod to severely dilated, mobile echodensity in pleural space tele: AF, HR controlled, artifact, PVCs, 7 bt NSVT IMP: -Acute on chronic hypoxic/hypercapneic respiratory failure at HD, with bradycardia (40s-50s) -possible RLL PNA, sepsis -NSTEMI (troponin to 2): most likely Type II secondary to acute strain from CHF/ pulm HTN and acute resp failure, vs sec to hypotension at time of arrest. -septic shock on Levophed, doubt cardiogenic shock here -HFpEF, pulmonary HTN, RV dysfunction -ESRD on HD -h/o DVT /PE on AC REC: -Vent support -Pressors to maintain MAP 60mmHg--tolerating Levophed (weaning, now 2 mcg) without tachycardia, continue -If develops signs of cool extremities or worsening hypotension, consider trial of milrinone for RV function - currently stable - repeat echo with LV function slightly worsened compared to prior, RV function is mod to severely reduced (stable) - repeat echo also shows echodensity in pleural space - consider chest imaging per critical care -HD as per renal for volume management -Cont xarelto (anemia, PLTs stable) -hold AVN blockers (hypotension), HRs ok -cont midodrine for bp support at HD -will defer ischemia evaluation as this will not change coordinator. she is at prohibitive risk for invasive tx strategy given extremely poor functional status with severe comorbidities at present. hypotension (requires midodrine for bp support at HD at baseline) will not tolerate signif b-blockade, though will try to give low dose if can tolerate, once she is off pressors. -no ASA for now given pt on Xarelto with mild anemia/thrombocytopenia (and likely dysfunctional PLTs in HD pt), and hi risk for bleeding at present -if she recovers from the acute illness will potentially reconsider above approach
--- NOTE | 2019-02-02 11:49 | PN ---
Teaching Attending Note Name of Resident: Tigre Aragon ATTENDING PHYSICIAN STATEMENT I saw and evaluated the patient. I reviewed the resident's note and discussed the case with the resident. I agree with the resident's findings and plan as documented. SUBJECTIVE: Pt seen and examined in the ICU. Remains intubated, poorly arousable today. Remains on low dose levophed gtt. OBJECTIVE: Vital Signs Period Temp Pulse Resp BP Sys/Jhaveri Pulse Ox Last 24 Hr 98.5 F-99.8 F 78-91 12-36 96-119/53-69 96-100 Intake & Output 01/30/19 01/31/19 02/01/19 02/02/19 23:59 23:59 23:59 23:59 Intake Total 1673 2514 2219 770 Output Total 0 2700 0 2700 Balance 1673 -186 2219 -1930 Weight 83.597 kg 85.4 kg 84.277 kg 87.135 kg Gen: intubated, sedated Heart: RRR Lung: scattered rhonchi Abd: soft, nontender Ext: less edema CBC, BMP 02/02/19 06:10 02/02/19 06:10 Active Medications Acetaminophen (Tylenol -) 650 mg PO Q4H PRN PRN Reason: PAIN Last Admin: 02/01/19 00:06 Dose: 650 mg Albumin Human (Albumin Human 25%) 12.5 gm IVPB Q30M [facility] Albuterol Sulfate (Ventolin 0.083% Nebulizer Soln -) 1 amp NEB Q6H PRN PRN Reason: SHORT OF BREATH/WHEEZING Amino Acids (Prosource No Carb Liquid Pkt) 30 ml PO BID@0800,1730 [facility] Last Admin: 02/02/19 08:18 Dose: 30 ml Chlorhexidine Gluconate (Peridex -) 15 ml MM BID [facility] Last Admin: 02/02/19 10:29 Dose: 15 ml Collagenase (Santyl -) 1 applic TP DAILY [facility]; Protocol Epoetin Memo (Epogen -) 8,000 unit IVPUSH ONCE ONE Stop: 02/02/19 13:47 Norepinephrine Bitartrate 8, (000 mcg/ Dextrose) 500 mls @ 18.75 mls/hr IV TITR [facility]; Protocol Last Admin: 02/01/19 12:22 Dose: 4 mcg/min, 15 mls/hr Sodium Chloride (Normal Saline -) 250 mls @ 3,000 mls/hr IV PRN PRN PRN Reason: Hypotension during Dialysis Stop: 02/02/19 13:46 Insulin Aspart (Novolog Vial Sliding Scale -) 1 vial SQ Q6HPO [facility]; Protocol Last Admin: 02/02/19 06:31 Dose: 2 units Levothyroxine Sodium (Synthroid -) 50 mcg PO DAILY@0700 [facility] Last Admin: 02/02/19 06:30 Dose: 50 mcg Lidocaine/Prilocaine (Emla -) 1 applic TP QID PRN PRN Reason: HEMORRHOIDS Midazolam HCl (Versed -) 2 mg IVPUSH Q2H PRN PRN Reason: AGITATION Last Admin: 02/01/19 00:17 Dose: 2 mg Midodrine (Proamatine -) 10 mg PO TID-MID [facility] Last Admin: 02/02/19 10:29 Dose: 10 mg Multivit/Ca Carb/B Cmplx/FA/Prenat (Nephro-Evert -) 1 tablet PO DAILY [facility] Last Admin: 02/02/19 10:29 Dose: 1 tablet Nystatin (Mycostatin Ointment -) 1 applic TP BID [facility] Last Admin: 02/01/19 21:26 Dose: 1 applic Ondansetron HCl (Zofran -) 4 mg PO Q6H PRN PRN Reason: NAUSEA AND/OR VOMITING Pantoprazole Sodium (Protonix Iv) 40 mg IVPUSH DAILY [facility] Last Admin: 02/02/19 10:29 Dose: 40 mg Rivaroxaban (Xarelto) 15 mg PO DAILY@1800 [facility] Last Admin: 02/01/19 17:41 Dose: 15 mg Sertraline HCl (Zoloft -) 50 mg PO DAILY [facility] Last Admin: 02/02/19 10:29 Dose: 50 mg Silver Sulfadiazine (Silvadene -) 1 applic TP BID [facility] Last Admin: 02/01/19 21:26 Dose: 1 applic ASSESSMENT AND PLAN: Acute on Chronic Hypoxic and Hypercapneic Respiratory Failure r/o Pneumonia Shock likely Septic Volume Overload ESRD on HD +Troponins likely Demand Ischemia Pulmonary HTN h/o PE/DVT - continue antibiotics - taper pressors to maintain MAP >55 - continue midodrine - HD per renal with ultrafiltration - taper FiO2 to keep SpO2 >90% - continue anticoagulation - minimize sedation to assess mental status - spontaneous breathing trials as tolerated - enteral feeds - DVT/GI prophylaxis critical care time spent in reviewing chart, evaluating patient and formulating plan 35 min
[2019-02-02] MEDS: NYSTATIN 100000 UNIT/GM TOPICAL OINTMENT 15 GM TUBE TP SCH ×2 (12:00→21:14)
[2019-02-02] MEDS: NOREPINEPHRINE BITARTRATE 8,000 MCG in DEXTROSE 5%-WATER - 492 ML IV SCH (12:00)
[2019-02-02] MEDS: SILVER SULFADIAZINE 1% TOP CREAM 400 GM JAR TP SCH ×2 (12:00→21:14)
--- NOTE | 2019-02-02 12:53 | PN ---
Progress Note, Physician History of Present Illness: Pt seen and examined at bedside. She remains in the ICU. She remains intubated. - Current Medication List Current Medications: Active Medications Acetaminophen (Tylenol -) 650 mg PO Q4H PRN PRN Reason: PAIN Last Admin: 02/01/19 00:06 Dose: 650 mg Albumin Human (Albumin Human 25%) 12.5 gm IVPB Q30M [facility] Albuterol Sulfate (Ventolin 0.083% Nebulizer Soln -) 1 amp NEB Q6H PRN PRN Reason: SHORT OF BREATH/WHEEZING Amino Acids (Prosource No Carb Liquid Pkt) 30 ml PO BID@0800,1730 [facility] Last Admin: 02/02/19 08:18 Dose: 30 ml Chlorhexidine Gluconate (Peridex -) 15 ml MM BID [facility] Last Admin: 02/02/19 10:29 Dose: 15 ml Collagenase (Santyl -) 1 applic TP DAILY [facility]; Protocol Epoetin Memo (Epogen -) 8,000 unit IVPUSH ONCE ONE Stop: 02/02/19 13:47 Norepinephrine Bitartrate 8, (000 mcg/ Dextrose) 500 mls @ 18.75 mls/hr IV TITR [facility]; Protocol Last Admin: 02/01/19 12:22 Dose: 4 mcg/min, 15 mls/hr Sodium Chloride (Normal Saline -) 250 mls @ 3,000 mls/hr IV PRN PRN PRN Reason: Hypotension during Dialysis Stop: 02/02/19 13:46 Insulin Aspart (Novolog Vial Sliding Scale -) 1 vial SQ Q6HPO [facility]; Protocol Last Admin: 02/02/19 06:31 Dose: 2 units Levothyroxine Sodium (Synthroid -) 50 mcg PO DAILY@0700 [facility] Last Admin: 02/02/19 06:30 Dose: 50 mcg Lidocaine/Prilocaine (Emla -) 1 applic TP QID PRN PRN Reason: HEMORRHOIDS Midazolam HCl (Versed -) 2 mg IVPUSH Q2H PRN PRN Reason: AGITATION Last Admin: 02/01/19 00:17 Dose: 2 mg Midodrine (Proamatine -) 10 mg PO TID-MID [facility] Last Admin: 02/02/19 10:29 Dose: 10 mg Multivit/Ca Carb/B Cmplx/FA/Prenat (Nephro-Evert -) 1 tablet PO DAILY [facility] Last Admin: 02/02/19 10:29 Dose: 1 tablet Nystatin (Mycostatin Ointment -) 1 applic TP BID [facility] Last Admin: 02/01/19 21:26 Dose: 1 applic Ondansetron HCl (Zofran -) 4 mg PO Q6H PRN PRN Reason: NAUSEA AND/OR VOMITING Pantoprazole Sodium (Protonix Iv) 40 mg IVPUSH DAILY [facility] Last Admin: 02/02/19 10:29 Dose: 40 mg Rivaroxaban (Xarelto) 15 mg PO DAILY@1800 [facility] Last Admin: 02/01/19 17:41 Dose: 15 mg Sertraline HCl (Zoloft -) 50 mg PO DAILY [facility] Last Admin: 02/02/19 10:29 Dose: 50 mg Silver Sulfadiazine (Silvadene -) 1 applic TP BID [facility] Last Admin: 02/01/19 21:26 Dose: 1 applic - Objective Vital Signs: Vital Signs Temperature 98.9 F 02/02/19 06:00 Pulse Rate 82 02/02/19 08:00 Respiratory Rate 36 H 02/02/19 10:30 Blood Pressure 97/58 L 02/02/19 08:00 O2 Sat by Pulse Oximetry (%) 100 02/01/19 19:57 Constitutional: Yes: Calm Eyes: Yes: Conjunctiva Clear HENT: Yes: Atraumatic Neck: Yes: Supple Cardiovascular: Yes: S1, S2 Respiratory: Yes: Mechanically Ventilated Gastrointestinal: Yes: Normal Bowel Sounds, Soft Genitourinary: Yes: Incontinence Edema: Yes Edema: LUE: 1+, RUE: 1+, LLE: 1+, RLE: 1+ Neurological: Yes: Lethargy Labs: CBC, BMP 02/02/19 06:10 02/02/19 06:10 INR, PTT INR 1.76 (0.83-1.09) H 01/27/19 05:45 Problem List - Problems (1) Acute respiratory failure Code(s): J96.00 - ACUTE RESPIRATORY FAILURE, UNSP W HYPOXIA OR HYPERCAPNIA Qualifiers: Respiratory failure complication: hypoxia Qualified Code(s): J96.01 - Acute respiratory failure with hypoxia (2) ESRD on hemodialysis Code(s): N18.6 - END STAGE RENAL DISEASE; Z99.2 - DEPENDENCE ON RENAL DIALYSIS Assessment/Plan Current Medications Generic Name Dose Route Start Last Admin Trade Name [id number] PRN Reason Stop Dose Admin Acetaminophen 650 mg 01/30/19 20:41 02/01/19 00:06 Tylenol - PO 650 mg Q4H PRN Administration PAIN Albuterol Sulfate 1 amp 01/27/19 01:54 Ventolin 0.083% Nebulizer Soln - NEB Q6H PRN SHORT OF BREATH/WHEEZING Amino Acids 30 ml 01/31/19 17:30 02/01/19 09:12 Prosource No Carb Liquid Pkt PO 30 ml BID@0800,1730 [facility] Administration Chlorhexidine Gluconate 15 ml 01/31/19 10:00 02/01/19 09:12 Peridex - MM 15 ml BID [facility] Administration Norepinephrine Bitartrate 8, 500 mls @ 18.75 mls/hr 01/28/19 11:15 02/01/19 12:22 000 mcg/ Dextrose IV 4 mcg/min TITR [facility] 15 mls/hr Administration Protocol 5 MCG/MIN Piperacillin Sod/Tazobactam 50 mls @ 100 mls/hr 01/30/19 18:00 02/01/19 09:12 Sod 2.25 gm/ Dextrose IVPB 100 mls/hr Q8H-IV [facility] Administration Protocol Insulin Aspart 1 vial 01/27/19 12:00 02/01/19 12:24 Novolog Vial Sliding Scale - SQ 2 units Q6HPO [facility] Administration Protocol Levothyroxine Sodium 50 mcg 01/27/19 07:00 02/01/19 06:15 Synthroid - PO 50 mcg DAILY@0700 [facility] Administration Lidocaine/Prilocaine 1 applic 01/27/19 01:55 Emla - TP QID PRN HEMORRHOIDS Midazolam HCl 2 mg 02/01/19 00:09 02/01/19 00:17 Versed - IVPUSH 2 mg Q2H PRN Administration AGITATION Midodrine 10 mg 01/27/19 14:30 02/01/19 13:16 Proamatine - PO 10 mg TID-MID [facility] Administration Multivit/Ca Carb/B Cmplx/FA/Prenat 1 tablet 01/27/19 10:00 02/01/19 09:15 Nephro-Evert - PO 1 tablet DAILY [facility] Administration Nystatin 1 applic 01/27/19 22:00 02/01/19 12:25 Mycostatin Ointment - TP 1 applic BID [facility] Administration Ondansetron HCl 4 mg 01/27/19 01:57 Zofran - PO Q6H PRN NAUSEA AND/OR VOMITING Pantoprazole Sodium 40 mg 01/31/19 10:00 02/01/19 09:12 Protonix Iv IVPUSH 40 mg DAILY [facility] Administration Rivaroxaban 15 mg 01/27/19 18:00 01/31/19 17:40 Xarelto PO 15 mg DAILY@1800 [facility] Administration Sertraline HCl 50 mg 01/27/19 10:00 02/01/19 09:15 Zoloft - PO 50 mg DAILY [facility] Administration Silver Sulfadiazine 1 applic 01/27/19 10:00 02/01/19 12:22 Silvadene - TP 1 applic BID [facility] Administration Impression 1. ESRD 2. change in mental status 3. resp failure requiring intubation 4. chf 5. dvt 6. anemia 7. a-fib 8. hypothyroid 9. pleural effusion Plan - HD today - will UF volume as bp permits - discussed care with daughter at length - cont feeds as tolerated - discussed with ICU - maintain map of 65 - monitor pulse ox - HD right thigh cath, 3 k bath, 3 15 time, 400 abf
[2019-02-02] MEDS: COLLAGENASE CLOSTRIDIUM HIST. 30 GRAMS TUBE TP SCH (16:39)
[2019-02-02] MEDS ORDERED: EPOETIN ALFA 2,000 UNIT/1 ML VIAL IVPUSH ONE (16:45)
[2019-02-02] MEDS: ALBUMIN HUMAN 25% 12.5 GM/50 ML VIAL IVPB SCH ×4 (16:45→19:17)
[2019-02-02] MEDS: RIVAROXABAN 15 MG TABLET PO SCH (17:23)
[2019-02-02] MEDS: MIDAZOLAM HCL 2 MG/2 ML SINGLE DOSE VIAL IVPUSH PRN (22:45)
[2019-02-02] MEDS: ACETAMINOPHEN 325 MG TABLET (FP) PO PRN (22:59)
[2019-02-03] MEDS: INSULIN SLIDING SCALE (NOVOLOG) 1 VIAL SQ SCH ×4 (01:50→17:05)
[2019-02-03] MEDS: MIDAZOLAM HCL 2 MG/2 ML SINGLE DOSE VIAL IVPUSH PRN (01:51)
[2019-02-03] MEDS: ACETAMINOPHEN 325 MG TABLET (FP) PO PRN (05:58)
[2019-02-03] MEDS: LEVOTHYROXINE NA 50 MCG TABLET (FP) PO SCH (05:59)
[2019-02-03] MEDS ORDERED: BANATROL PLUS POWDER PACKET PO ONE (06:31)
[2019-02-03 06:32] LABS: HEMATOCRIT 27.1 % (32.4-45.2); HEMOGLOBIN 8.6 GM/dL (10.7-15.3); MCH 30.2 pg (25.7-33.7); MCHC 31.8 g/dl (32.0-36.0); MEAN CELL VOLUME 95.1 fl (80-96); MEAN PLT VOLUME 8.6 fl (7.5-11.1); PLATELET COUNT 198 K/MM3 (134-434); RBC 2.85 M/mm3 (3.60-5.2); RDW 18.7 % (11.6-15.6); WHITE BLOOD COUNT 4.9 K/mm3 (4.0-10.0)
[2019-02-03 06:54] LABS: BLOOD UREA NITROGEN 27.4 mg/dL (7-18); CALCIUM 8.7 mg/dL (8.5-10.1); CREATININE 2.1 mg/dL (0.55-1.3); POTASSIUM 3.3 mmol/L (3.5-5.1)
[2019-02-03] MEDS ORDERED: PT OWN MED DRAWER 7, Y5N ONE ×2 (08:22→13:24)
[2019-02-03] MEDS: PANTOPRAZOLE SODIUM 40 MG VIAL IVPUSH SCH (10:04)
[2019-02-03] MEDS: SERTRALINE HCL 50 MG TABLET (FP) PO SCH (10:05)
[2019-02-03] MEDS: SILVER SULFADIAZINE 1% TOP CREAM 400 GM JAR TP SCH ×2 (10:05→21:11)
[2019-02-03] MEDS: COLLAGENASE CLOSTRIDIUM HIST. 30 GRAMS TUBE TP SCH (10:06)
[2019-02-03] MEDS: CHLORHEXIDINE GLUCONATE 0.12% 15ML CUP MM SCH ×2 (10:07→21:11)
[2019-02-03] MEDS: AMINO ACIDS/PROTEIN HYDROLYS 30 ML LIQUID.PKT PO SCH ×2 (10:07→17:06)
[2019-02-03] MEDS: NYSTATIN 100000 UNIT/GM TOPICAL OINTMENT 15 GM TUBE TP SCH ×2 (10:08→21:11)
[2019-02-03] MEDS: VITAMIN B COMP W-C 1 EA TABLET PO SCH (10:09)
[2019-02-03] MEDS: MIDODRINE HCL 5 MG TABLET PO SCH ×3 (10:09→17:06)
--- NOTE | 2019-02-03 11:23 | PN ---
Teaching Attending Note Name of Resident: Tigre Jones ATTENDING PHYSICIAN STATEMENT I saw and evaluated the patient. I reviewed the resident's note and discussed the case with the resident. I agree with the resident's findings and plan as documented. SUBJECTIVE: Pt seen and examined in the ICU. Awake, alert, intubated. Tolerated CPAP/PS trials and subsequently extubated during rounds. OBJECTIVE: Vital Signs Period Temp Pulse Resp BP Sys/Jhaveri Pulse Ox Last 24 Hr 97.7 F-99.1 F 78-97 16-35 72-128/44-73 100-100 Intake & Output 01/31/19 02/01/19 02/02/19 02/03/19 23:59 23:59 23:59 23:59 Intake Total 2514 2219 2384.4 72 Output Total 2700 0 5600 Balance -186 2219 -3215.6 72 Weight 85.4 kg 84.277 kg 87.135 kg 87.135 kg Gen: extubated Heart: RRR Lung: decreased breath sounds at the bases Abd: soft, nontender Ext: + edema CBC, BMP 02/03/19 05:30 02/03/19 05:30 Active Medications Acetaminophen (Tylenol -) 650 mg PO Q4H PRN PRN Reason: PAIN Last Admin: 02/03/19 05:58 Dose: 650 mg Albuterol Sulfate (Ventolin 0.083% Nebulizer Soln -) 1 amp NEB Q6H PRN PRN Reason: SHORT OF BREATH/WHEEZING Amino Acids (Prosource No Carb Liquid Pkt) 30 ml PO BID@0800,1730 [facility] Last Admin: 02/03/19 10:07 Dose: Not Given Chlorhexidine Gluconate (Peridex -) 15 ml MM BID [facility] Last Admin: 02/03/19 10:07 Dose: 15 ml Collagenase (Santyl -) 1 applic TP DAILY [facility]; Protocol Last Admin: 02/03/19 10:06 Dose: 1 applic Norepinephrine Bitartrate 8, (000 mcg/ Dextrose) 500 mls @ 18.75 mls/hr IV TITR [facility]; Protocol Last Titration: 02/03/19 05:59 Dose: 4 mcg/min, 15 mls/hr Sodium Chloride (Normal Saline -) 250 mls @ 3,000 mls/hr IV PRN PRN PRN Reason: Hypotension during Dialysis Stop: 02/02/19 13:46 Insulin Aspart (Novolog Vial Sliding Scale -) 1 vial SQ Q6HPO [facility]; Protocol Last Admin: 02/03/19 05:59 Dose: Not Given Levothyroxine Sodium (Synthroid -) 50 mcg PO DAILY@0700 [facility] Last Admin: 02/03/19 05:59 Dose: 50 mcg Lidocaine/Prilocaine (Emla -) 1 applic TP QID PRN PRN Reason: HEMORRHOIDS Midazolam HCl (Versed -) 2 mg IVPUSH Q2H PRN PRN Reason: AGITATION Last Admin: 02/03/19 01:51 Dose: 2 mg Midodrine (Proamatine -) 10 mg PO TID-MID [facility] Last Admin: 02/03/19 10:09 Dose: Not Given Multivit/Ca Carb/B Cmplx/FA/Prenat (Nephro-Evert -) 1 tablet PO DAILY [facility] Last Admin: 02/03/19 10:09 Dose: Not Given Nystatin (Mycostatin Ointment -) 1 applic TP BID [facility] Last Admin: 02/03/19 10:08 Dose: 1 applic Ondansetron HCl (Zofran -) 4 mg PO Q6H PRN PRN Reason: NAUSEA AND/OR VOMITING Pantoprazole Sodium (Protonix Iv) 40 mg IVPUSH DAILY [facility] Last Admin: 02/03/19 10:04 Dose: 40 mg Rivaroxaban (Xarelto) 15 mg PO DAILY@1800 [facility] Last Admin: 02/02/19 17:23 Dose: 15 mg Sertraline HCl (Zoloft -) 50 mg PO DAILY [facility] Last Admin: 02/03/19 10:05 Dose: 50 mg Silver Sulfadiazine (Silvadene -) 1 applic TP BID [facility] Last Admin: 02/03/19 10:05 Dose: 1 applic ASSESSMENT AND PLAN: Acute on Chronic Hypoxic and Hypercapneic Respiratory Failure r/o Pneumonia Shock likely Septic Volume Overload ESRD on HD +Troponins likely Demand Ischemia Pulmonary HTN h/o PE/DVT - pt extubated - completed antibiotics - taper pressors to maintain MAP >55 - continue midodrine - HD per renal with ultrafiltration - taper FiO2 to keep SpO2 >90% - continue anticoagulation - DVT/GI prophylaxis critical care time spent in reviewing chart, evaluating patient and formulating plan 35 min
--- NOTE | 2019-02-03 11:39 | PN ---
Physical Exam: SUBJECTIVE: Patient seen and examined at the bedside. Patient was awake and alert, was placed on CPAP mode and was successfully extubated during rounds to Venti-mask. Complained of a sore throat. Denied cp, sob, abd pain. Was tired after extubation. OBJECTIVE: Vital Signs Period Temp Pulse Resp BP Sys/Jhaveri Pulse Ox Last 24 Hr 97.7 F-99.1 F 78-97 10-35 72-128/44-73 100-100 GENERAL: Awake and alert, able to answer questions. Mild distress secondary to recent extubation HEAD: Normal with no signs of trauma. EYES: Pupils equal, round and normal reaction to light, sclera anicteric, conjunctiva clear. NECK: No JVD or masses noted LUNGS: R>L breath sounds, decreased at the bases, no wheezes, coarse breath sounds heard. HEART: Irregular rhythm, normal rate, S1 and S2 without murmur, rub. ABDOMEN: Soft, moderately distended, normoactive bowel sounds, obese abdomen with non-symmetrical appearance EXTREMITIES: 2+ peripheral edema on the R, 1+ on the L on upper extremity. No calf tenderness. Trace peripheral edema on lower extremities. NEUROLOGICAL: CN II-XII intact SKIN: Cool, moist skin, diffuse ecchymoses noted Laboratory Results - last 24 hr 02/02/19 02/03/19 02/03/19 17:05 00:30 01:32 WBC RBC Hgb Hct MCV MCH MCHC RDW Plt Count MPV Sodium Potassium Chloride Carbon Dioxide Anion Gap BUN Creatinine Est GFR (CKD-EPI)AfAm Est GFR (CKD-EPI)NonAf POC Glucometer 176 134 Random Glucose Calcium Stool Occult Blood Negative 02/03/19 02/03/19 02/03/19 05:30 05:30 05:39 WBC 4.9 RBC 2.85 L Hgb 8.6 L Hct 27.1 L MCV 95.1 MCH 30.2 MCHC 31.8 L RDW 18.7 H Plt Count 198 MPV 8.6 Sodium 138 Potassium 3.3 L Chloride 100 Carbon Dioxide 28 Anion Gap 10 BUN 27.4 H Creatinine 2.1 H Est GFR (CKD-EPI)AfAm 26.77 Est GFR (CKD-EPI)NonAf 23.10 POC Glucometer 144 Random Glucose 144 H Calcium 8.7 Stool Occult Blood Active Medications Generic Name Dose Route Start Last Admin Trade Name Freq PRN Reason Stop Dose Admin Acetaminophen 650 mg 01/30/19 20:41 02/03/19 05:58 Tylenol - PO 650 mg Q4H PRN Administration PAIN Albuterol Sulfate 1 amp 01/27/19 01:54 Ventolin 0.083% Nebulizer Soln - NEB Q6H PRN SHORT OF BREATH/WHEEZING Amino Acids 30 ml 01/31/19 17:30 02/03/19 10:07 Prosource No Carb Liquid Pkt PO Not Given BID@0800,1730 [facility] Chlorhexidine Gluconate 15 ml 01/31/19 10:00 02/03/19 10:07 Peridex - MM 15 ml BID [facility] Administration Collagenase 1 applic 02/02/19 10:15 02/03/19 10:06 Santyl - TP 1 applic DAILY [facility] Administration Protocol Norepinephrine Bitartrate 8, 500 mls @ 18.75 mls/hr 01/28/19 11:15 02/03/19 05:59 000 mcg/ Dextrose IV 4 mcg/min TITR [facility] 15 mls/hr Titration Protocol 5 MCG/MIN Sodium Chloride 250 mls @ 3,000 mls/hr 02/01/19 13:46 Normal Saline - IV 02/02/19 13:46 PRN PRN Hypotension during Dialysis Insulin Aspart 1 vial 01/27/19 12:00 02/03/19 05:59 Novolog Vial Sliding Scale - SQ Not Given Q6HPO [facility] Protocol Levothyroxine Sodium 50 mcg 01/27/19 07:00 02/03/19 05:59 Synthroid - PO 50 mcg DAILY@0700 [facility] Administration Lidocaine/Prilocaine 1 applic 01/27/19 01:55 Emla - TP QID PRN HEMORRHOIDS Midazolam HCl 2 mg 02/01/19 00:09 02/03/19 01:51 Versed - IVPUSH 2 mg Q2H PRN Administration AGITATION Midodrine 10 mg 01/27/19 14:30 02/03/19 10:09 Proamatine - PO Not Given TID-MID [facility] Multivit/Ca Carb/B Cmplx/FA/Prenat 1 tablet 01/27/19 10:00 02/03/19 10:09 Nephro-Evert - PO Not Given DAILY [facility] Nystatin 1 applic 01/27/19 22:00 02/03/19 10:08 Mycostatin Ointment - TP 1 applic BID [facility] Administration Ondansetron HCl 4 mg 01/27/19 01:57 Zofran - PO Q6H PRN NAUSEA AND/OR VOMITING Pantoprazole Sodium 40 mg 01/31/19 10:00 02/03/19 10:04 Protonix Iv IVPUSH 40 mg DAILY [facility] Administration Rivaroxaban 15 mg 01/27/19 18:00 02/02/19 17:23 Xarelto PO 15 mg DAILY@1800 [facility] Administration Sertraline HCl 50 mg 01/27/19 10:00 02/03/19 10:05 Zoloft - PO 50 mg DAILY [facility] Administration Silver Sulfadiazine 1 applic 01/27/19 10:00 02/03/19 10:05 Silvadene - TP 1 applic BID [facility] Administration ASSESSMENT/PLAN: Argelia Patel is a 73 year old female with a PMHx of ESRD, Orthostatic Hypotension, CHF, DM, hypothyroid, COPD, Afib (on Xarelto), DVTs, Pulmonary Edema and multiple admissions for PNA (including intubation) admitted to the ICU for unresponsiveness secondary to acute respiratory failure likely from hypercapneia and hypotension from fluid removal during dialysis. Acute Hypercapneic Respiratory Failure Hypotension ESRD CHF DM Hypothyroidism Atrial fibrillation NEUROLOGIC - head CT with no acute intracranial pathology, possible mastoiditis and sinusitis CARDIOLOGY - on Levophed, on 4mcq this morning, titrate down as tolerated, double concentrated to reduce fluid volume given - EKG showing afib with RVR with occasional PVCs, poor study - repeat EKG showing no acute changes from EKG done on 01/19/19, low voltage study , afib - troponins elevated at 0.18 trended up to 0.89 > 1.85 > 2.46 > 2.1, likely demand in setting of hypovolemia, downtrending - previous echo 12/08/18 showing normal EF, moderate to severe right ventricle dilation, increased right ventricular systolic pressure - monitor I+Os - digoxin level 0.10 - Cardiology consulted, appreciate recs - continue Xarelto for afib - if worsening hypotension, can consider milrinone for RV function - MAP goals of 55-60 RESPIRATORY - extubated - on venti-mask, satting well - albuterol nebulizer q6h prn RENAL - Dr. Molina consulted - HD yesterday, removed 2.5L - albumin given - Epogen given - HD as per renal GASTROINTESTINAL - no acute issues GENITOURINARY - zhang in INFECTIOUS DISEASE - hypotensive, no WBC, afebrile - unclear if infection is contributing to low BP, cannot r/o lung source or wound source - hx of cdiff, cautious approach to continuing antibiotics - blood cxs negative - completed antibiotics, monitor off, and watch fevers, WBC count - ID following, appreciate recommendations ENDOCRINE - continue home Synthroid - BGM q6h - ISS HEMATOLOGY - FOBT negative - Hgb stable - thrombocytopenia, improved, continue to monitor F/E/N - no standing fluids - continue to monitor electrolytes and replete as necessary, less aggressive hypokalemia and hypophospatemia replacement in setting of ESRD - reassess feeds s/p bedside swallow eval LINES - L femoral central line placed 01/26, will need prolonged access due to difficulty in obtaining access elsewhere, stenosis centrally - R femoral Tesio catheter PROPHYLAXIS - home Xarelto CODE - full code DISPO - continue to monitor in ICU - Family discussion on goals of care Visit type - Emergency Visit Emergency Visit: No - New Patient This patient is new to me today: No - Critical Care Critical Care patient: Yes Total Critical Care Time (in minutes): 40 Critical Care Statement: The care of this patient involved high complexity decision making to prevent further life threatening deterioration of the patient 's condition and/or to evaluate & treat vital organ system(s) failure or risk of failure.
[2019-02-03] MEDS ORDERED: POTASSIUM CHLORIDE TABS 20 MEQ TABLET.ER (FP) PO ONE (12:39)
--- NOTE | 2019-02-03 12:39 | PN ---
Progress Note, Physician Chief Complaint: patient awake alert on ventimask extubated wants to live spoke to daughter about LTAC - Current Medication List Current Medications: Active Medications Acetaminophen (Tylenol -) 650 mg PO Q4H PRN PRN Reason: PAIN Last Admin: 02/03/19 05:58 Dose: 650 mg Albuterol Sulfate (Ventolin 0.083% Nebulizer Soln -) 1 amp NEB Q6H PRN PRN Reason: SHORT OF BREATH/WHEEZING Amino Acids (Prosource No Carb Liquid Pkt) 30 ml PO BID@0800,1730 [facility] Last Admin: 02/03/19 10:07 Dose: Not Given Chlorhexidine Gluconate (Peridex -) 15 ml MM BID [facility] Last Admin: 02/03/19 10:07 Dose: 15 ml Collagenase (Santyl -) 1 applic TP DAILY [facility]; Protocol Last Admin: 02/03/19 10:06 Dose: 1 applic Norepinephrine Bitartrate 8, (000 mcg/ Dextrose) 500 mls @ 18.75 mls/hr IV TITR [facility]; Protocol Last Titration: 02/03/19 11:51 Dose: 6 mcg/min, 22.5 mls/hr Sodium Chloride (Normal Saline -) 250 mls @ 3,000 mls/hr IV PRN PRN PRN Reason: Hypotension during Dialysis Stop: 02/02/19 13:46 Insulin Aspart (Novolog Vial Sliding Scale -) 1 vial SQ Q6HPO [facility]; Protocol Last Admin: 02/03/19 05:59 Dose: Not Given Levothyroxine Sodium (Synthroid -) 50 mcg PO DAILY@0700 [facility] Last Admin: 02/03/19 05:59 Dose: 50 mcg Lidocaine/Prilocaine (Emla -) 1 applic TP QID PRN PRN Reason: HEMORRHOIDS Midodrine (Proamatine -) 10 mg PO TID-MID [facility] Last Admin: 02/03/19 10:09 Dose: Not Given Multivit/Ca Carb/B Cmplx/FA/Prenat (Nephro-Evert -) 1 tablet PO DAILY [facility] Last Admin: 02/03/19 10:09 Dose: Not Given Nystatin (Mycostatin Ointment -) 1 applic TP BID [facility] Last Admin: 02/03/19 10:08 Dose: 1 applic Ondansetron HCl (Zofran -) 4 mg PO Q6H PRN PRN Reason: NAUSEA AND/OR VOMITING Pantoprazole Sodium (Protonix Iv) 40 mg IVPUSH DAILY [facility] Last Admin: 02/03/19 10:04 Dose: 40 mg Rivaroxaban (Xarelto) 15 mg PO DAILY@1800 [facility] Last Admin: 02/02/19 17:23 Dose: 15 mg Sertraline HCl (Zoloft -) 50 mg PO DAILY [facility] Last Admin: 02/03/19 10:05 Dose: 50 mg Silver Sulfadiazine (Silvadene -) 1 applic TP BID [facility] Last Admin: 02/03/19 10:05 Dose: 1 applic - Objective Vital Signs: Vital Signs Temperature 98.8 F 02/03/19 10:00 Pulse Rate 92 H 02/03/19 11:51 Respiratory Rate 10 02/03/19 10:00 Blood Pressure 82/48 L 02/03/19 11:51 O2 Sat by Pulse Oximetry (%) 100 02/03/19 09:00 Constitutional: Yes: Calm Cardiovascular: Yes: Regular Rate and Rhythm, S1, S2 Respiratory: Yes: Diminished, On Venti-Mask Gastrointestinal: Yes: Normal Bowel Sounds, Soft Edema: No Neurological: Yes: Alert Labs: CBC, BMP 02/03/19 05:30 02/03/19 05:30 INR, PTT INR 1.76 (0.83-1.09) H 01/27/19 05:45 Problem List - Problems (1) Hypothyroid Assessment/Plan: on synthroid Code(s): E03.9 - HYPOTHYROIDISM, UNSPECIFIED (2) Acute respiratory failure Assessment/Plan: intubated- now extubated on venti mask possible pna on iv zosyn/ vanco- completed adele need pulm rehab spoke to daughter about LTAC Code(s): J96.00 - ACUTE RESPIRATORY FAILURE, UNSP W HYPOXIA OR HYPERCAPNIA Qualifiers: Respiratory failure complication: hypoxia Qualified Code(s): J96.01 - Acute respiratory failure with hypoxia (3) ESRD on hemodialysis Assessment/Plan: HD per renal Code(s): N18.6 - END STAGE RENAL DISEASE; Z99.2 - DEPENDENCE ON RENAL DIALYSIS (4) Hypotension Assessment/Plan: on levophed- trying to wean off pressors iv abx completed midodrine wbc trending down Code(s): I95.9 - HYPOTENSION, UNSPECIFIED Qualifiers: Hypotension type: unspecified hypotension type Qualified Code(s): I95.9 - Hypotension, unspecified (5) H/O deep venous thrombosis Assessment/Plan: on xarelto Code(s): Z86.718 - PERSONAL HISTORY OF OTHER VENOUS THROMBOSIS AND EMBOLISM (6) Elevated troponin Assessment/Plan: NSTEMi- inc troponin secondary to strain from resp failure, septic shock Code(s): R74.8 - ABNORMAL LEVELS OF OTHER SERUM ENZYMES
--- NOTE | 2019-02-03 12:42 | PN ---
Progress Note, Physician History of Present Illness: Pt seen and examined at bedside. She is now extubated. She is awake and alert. Her daughter is at bedside. - Current Medication List Current Medications: Active Medications Acetaminophen (Tylenol -) 650 mg PO Q4H PRN PRN Reason: PAIN Last Admin: 02/03/19 05:58 Dose: 650 mg Albuterol Sulfate (Ventolin 0.083% Nebulizer Soln -) 1 amp NEB Q6H PRN PRN Reason: SHORT OF BREATH/WHEEZING Amino Acids (Prosource No Carb Liquid Pkt) 30 ml PO BID@0800,1730 [facility] Last Admin: 02/03/19 10:07 Dose: Not Given Chlorhexidine Gluconate (Peridex -) 15 ml MM BID [facility] Last Admin: 02/03/19 10:07 Dose: 15 ml Collagenase (Santyl -) 1 applic TP DAILY [facility]; Protocol Last Admin: 02/03/19 10:06 Dose: 1 applic Norepinephrine Bitartrate 8, (000 mcg/ Dextrose) 500 mls @ 18.75 mls/hr IV TITR [facility]; Protocol Last Titration: 02/03/19 11:51 Dose: 6 mcg/min, 22.5 mls/hr Sodium Chloride (Normal Saline -) 250 mls @ 3,000 mls/hr IV PRN PRN PRN Reason: Hypotension during Dialysis Stop: 02/02/19 13:46 Insulin Aspart (Novolog Vial Sliding Scale -) 1 vial SQ Q6HPO [facility]; Protocol Last Admin: 02/03/19 05:59 Dose: Not Given Levothyroxine Sodium (Synthroid -) 50 mcg PO DAILY@0700 [facility] Last Admin: 02/03/19 05:59 Dose: 50 mcg Lidocaine/Prilocaine (Emla -) 1 applic TP QID PRN PRN Reason: HEMORRHOIDS Midodrine (Proamatine -) 10 mg PO TID-MID [facility] Last Admin: 02/03/19 10:09 Dose: Not Given Multivit/Ca Carb/B Cmplx/FA/Prenat (Nephro-Evert -) 1 tablet PO DAILY [facility] Last Admin: 02/03/19 10:09 Dose: Not Given Nystatin (Mycostatin Ointment -) 1 applic TP BID [facility] Last Admin: 02/03/19 10:08 Dose: 1 applic Ondansetron HCl (Zofran -) 4 mg PO Q6H PRN PRN Reason: NAUSEA AND/OR VOMITING Pantoprazole Sodium (Protonix Iv) 40 mg IVPUSH DAILY [facility] Last Admin: 02/03/19 10:04 Dose: 40 mg Rivaroxaban (Xarelto) 15 mg PO DAILY@1800 [facility] Last Admin: 02/02/19 17:23 Dose: 15 mg Sertraline HCl (Zoloft -) 50 mg PO DAILY [facility] Last Admin: 02/03/19 10:05 Dose: 50 mg Silver Sulfadiazine (Silvadene -) 1 applic TP BID [facility] Last Admin: 02/03/19 10:05 Dose: 1 applic - Objective Vital Signs: Vital Signs Temperature 98.8 F 02/03/19 10:00 Pulse Rate 92 H 02/03/19 11:51 Respiratory Rate 10 02/03/19 10:00 Blood Pressure 82/48 L 02/03/19 11:51 O2 Sat by Pulse Oximetry (%) 100 02/03/19 09:00 Constitutional: Yes: Calm Eyes: Yes: Conjunctiva Clear HENT: Yes: Atraumatic Neck: Yes: Supple Cardiovascular: Yes: S1, S2 Respiratory: Yes: On Venti-Mask Gastrointestinal: Yes: Soft, Abdomen, Obese Genitourinary: Yes: Incontinence Edema: Yes Edema: LUE: Trace, RUE: Trace Integumentary: Yes: Bruising Neurological: Yes: Oriented Psychiatric: Yes: Oriented Labs: CBC, BMP 02/03/19 05:30 02/03/19 05:30 INR, PTT INR 1.76 (0.83-1.09) H 01/27/19 05:45 Problem List - Problems (1) Acute respiratory failure Code(s): J96.00 - ACUTE RESPIRATORY FAILURE, UNSP W HYPOXIA OR HYPERCAPNIA Qualifiers: Qualified Code(s): J96.01 - Acute respiratory failure with hypoxia (2) ESRD on hemodialysis Code(s): N18.6 - END STAGE RENAL DISEASE; Z99.2 - DEPENDENCE ON RENAL DIALYSIS Assessment/Plan Current Medications Generic Name Dose Route Start Last Admin Trade Name Freq PRN Reason Stop Dose Admin Acetaminophen 650 mg 01/30/19 20:41 02/03/19 05:58 Tylenol - PO 650 mg Q4H PRN Administration PAIN Albuterol Sulfate 1 amp 01/27/19 01:54 Ventolin 0.083% Nebulizer Soln - NEB Q6H PRN SHORT OF BREATH/WHEEZING Amino Acids 30 ml 01/31/19 17:30 02/03/19 10:07 Prosource No Carb Liquid Pkt PO Not Given BID@0800,1730 [facility] Chlorhexidine Gluconate 15 ml 01/31/19 10:00 02/03/19 10:07 Peridex - MM 15 ml BID [facility] Administration Collagenase 1 applic 02/02/19 10:15 02/03/19 10:06 Santyl - TP 1 applic DAILY [facility] Administration Protocol Norepinephrine Bitartrate 8, 500 mls @ 18.75 mls/hr 01/28/19 11:15 02/03/19 11:51 000 mcg/ Dextrose IV 6 mcg/min TITR [facility] 22.5 mls/hr Titration Protocol 5 MCG/MIN Sodium Chloride 250 mls @ 3,000 mls/hr 02/01/19 13:46 Normal Saline - IV 02/02/19 13:46 PRN PRN Hypotension during Dialysis Insulin Aspart 1 vial 01/27/19 12:00 02/03/19 05:59 Novolog Vial Sliding Scale - SQ Not Given Q6HPO [facility] Protocol Levothyroxine Sodium 50 mcg 01/27/19 07:00 02/03/19 05:59 Synthroid - PO 50 mcg DAILY@0700 [facility] Administration Lidocaine/Prilocaine 1 applic 01/27/19 01:55 Emla - TP QID PRN HEMORRHOIDS Midodrine 10 mg 01/27/19 14:30 02/03/19 10:09 Proamatine - PO Not Given TID-MID [facility] Multivit/Ca Carb/B Cmplx/FA/Prenat 1 tablet 01/27/19 10:00 02/03/19 10:09 Nephro-Evert - PO Not Given DAILY [facility] Nystatin 1 applic 01/27/19 22:00 02/03/19 10:08 Mycostatin Ointment - TP 1 applic BID [facility] Administration Ondansetron HCl 4 mg 01/27/19 01:57 Zofran - PO Q6H PRN NAUSEA AND/OR VOMITING Pantoprazole Sodium 40 mg 01/31/19 10:00 02/03/19 10:04 Protonix Iv IVPUSH 40 mg DAILY [facility] Administration Potassium Chloride 40 meq 02/03/19 12:39 K-Dur - PO 02/03/19 12:40 ONCE ONE Rivaroxaban 15 mg 01/27/19 18:00 02/02/19 17:23 Xarelto PO 15 mg DAILY@1800 [facility] Administration Sertraline HCl 50 mg 01/27/19 10:00 02/03/19 10:05 Zoloft - PO 50 mg DAILY [facility] Administration Silver Sulfadiazine 1 applic 01/27/19 10:00 02/03/19 10:05 Silvadene - TP 1 applic BID [facility] Administration Impression 1. ESRD 2. change in mental status 3. resp failure requiring intubation 4. chf 5. dvt 6. anemia 7. a-fib 8. hypothyroid 9. pleural effusion Plan - pt is now extubated - HD again tomorrow - monitor lytes - monitor bp - monitor pulse ox - HD right thigh cath, 3 k bath, 3 15 time, 400 abf
--- NOTE | 2019-02-03 13:12 | PN ---
Progress Note (short form) - Note Progress Note: s:intubated, on pressors, appears comfortable Current Medications Generic Name Dose Route Start Last Admin Trade Name Freq PRN Reason Stop Dose Admin Acetaminophen 650 mg 01/30/19 20:41 02/03/19 05:58 Tylenol - PO 650 mg Q4H PRN Administration PAIN Albumin Human 12.5 gm 02/04/19 12:45 Albumin Human 25% IVPB 02/04/19 14:16 Q30M [facility] Albuterol Sulfate 1 amp 01/27/19 01:54 Ventolin 0.083% Nebulizer Soln - NEB Q6H PRN SHORT OF BREATH/WHEEZING Amino Acids 30 ml 01/31/19 17:30 02/03/19 10:07 Prosource No Carb Liquid Pkt PO Not Given BID@0800,1730 [facility] Chlorhexidine Gluconate 15 ml 01/31/19 10:00 02/03/19 10:07 Peridex - MM 15 ml BID [facility] Administration Collagenase 1 applic 02/02/19 10:15 02/03/19 10:06 Santyl - TP 1 applic DAILY [facility] Administration Protocol Epoetin Memo 10,000 unit 02/04/19 12:42 Epogen - IVPUSH 02/04/19 12:43 ONCE ONE Norepinephrine Bitartrate 8, 500 mls @ 18.75 mls/hr 01/28/19 11:15 02/03/19 11:51 000 mcg/ Dextrose IV 6 mcg/min TITR [facility] 22.5 mls/hr Titration Protocol 5 MCG/MIN Sodium Chloride 250 mls @ 3,000 mls/hr 02/01/19 13:46 Normal Saline - IV 02/02/19 13:46 PRN PRN Hypotension during Dialysis Sodium Chloride 250 mls @ 3,000 mls/hr 02/03/19 12:42 Normal Saline - IV 02/04/19 12:42 PRN PRN Hypotension during Dialysis Insulin Aspart 1 vial 01/27/19 12:00 02/03/19 12:55 Novolog Vial Sliding Scale - SQ Not Given Q6HPO [facility] Protocol Levothyroxine Sodium 50 mcg 01/27/19 07:00 02/03/19 05:59 Synthroid - PO 50 mcg DAILY@0700 [facility] Administration Lidocaine/Prilocaine 1 applic 01/27/19 01:55 Emla - TP QID PRN HEMORRHOIDS Midodrine 10 mg 01/27/19 14:30 02/03/19 10:09 Proamatine - PO Not Given TID-MID [facility] Multivit/Ca Carb/B Cmplx/FA/Prenat 1 tablet 01/27/19 10:00 02/03/19 10:09 Nephro-Evert - PO Not Given DAILY [facility] Nystatin 1 applic 01/27/19 22:00 02/03/19 10:08 Mycostatin Ointment - TP 1 applic BID [facility] Administration Ondansetron HCl 4 mg 01/27/19 01:57 Zofran - PO Q6H PRN NAUSEA AND/OR VOMITING Pantoprazole Sodium 40 mg 01/31/19 10:00 02/03/19 10:04 Protonix Iv IVPUSH 40 mg DAILY [facility] Administration Rivaroxaban 15 mg 01/27/19 18:00 02/02/19 17:23 Xarelto PO 15 mg DAILY@1800 [facility] Administration Sertraline HCl 50 mg 01/27/19 10:00 02/03/19 10:05 Zoloft - PO 50 mg DAILY [facility] Administration Silver Sulfadiazine 1 applic 01/27/19 10:00 02/03/19 10:05 Silvadene - TP 1 applic BID [facility] Administration Vital Signs Temp 98.8 F 02/03/19 10:00 Pulse 92 H 02/03/19 11:51 Resp 10 02/03/19 10:00 BP 82/48 L 02/03/19 11:51 Pulse Ox 100 02/03/19 09:00 Intake & Output 02/02/19 02/03/19 02/03/19 23:59 11:59 23:59 Intake Total 1614.4 72 Output Total 2900 Balance -1285.6 72 Weight 192 lb 1.6 oz Intake: IV 724.4 72 Levophed - 8,000 Mcg In 224.4 72 D5w - 492 ml @ 5 MCG/MIN 18.75 mls/hr IV TITR [facility] Rx#:[id number] Normal Saline - 250 ml @ 500 3000 mls/hr IV PRN PRN Rx #:[id number] IVPB 100 Oral 200 0 Tube Feeding 420 Albumin 50 Tube Irrigant 120 Output: Fluid Removed, 2900 Hemodialysis Other: Voiding Method Diaper Diaper Bowel Movement Yes Yes Weight Measurement Method Built in [facility] Constitutional: Yes: No Distress, Calm, Obese intubated Cardiovascular: Yes: Pulse Irregular, S1, S2. No: JVD (prohibitive tds phys exam), Gallop, Murmur Respiratory: Yes: Regular, CTA Bilaterally (anteriorly). No: Accessory Muscle Use Extremities: No: Cold Edema: No Neurological: No: lethargic Psychiatric: No: Agitated no jaundice, diaphoresis Laboratory Last Values WBC 4.9 K/mm3 (4.0-10.0) 02/03/19 05:30 RBC 2.85 M/mm3 (3.60-5.2) L 02/03/19 05:30 Hgb 8.6 GM/dL (10.7-15.3) L 02/03/19 05:30 Hct 27.1 % (32.4-45.2) L 02/03/19 05:30 MCV 95.1 fl (80-96) 02/03/19 05:30 MCH 30.2 pg (25.7-33.7) 02/03/19 05:30 MCHC 31.8 g/dl (32.0-36.0) L 02/03/19 05:30 RDW 18.7 % (11.6-15.6) H 02/03/19 05:30 Plt Count 198 K/MM3 (134-434) 02/03/19 05:30 MPV 8.6 fl (7.5-11.1) 02/03/19 05:30 Absolute Neuts (auto) 11.3 K/mm3 (1.5-8.0) H 01/29/19 05:30 Neutrophils % 85.1 % (42.8-82.8) H 01/29/19 05:30 Lymphocytes % 6.9 % (8-40) L 01/29/19 05:30 Monocytes % 7.1 % (3.8-10.2) 01/29/19 05:30 Eosinophils % 0.0 % (0-4.5) D 01/29/19 05:30 Basophils % 0.9 % (0-2.0) 01/29/19 05:30 Nucleated RBC % 0 % (0-0) 01/29/19 05:30 PT with INR 20.90 SEC (9.7-13.0) H 01/27/19 05:45 INR 1.76 (0.83-1.09) H 01/27/19 05:45 PTT (Actin FS) 33.3 SECONDS (25.2-36.5) 01/27/19 05:45 Anticoagulation Therapy No Result Required. 01/27/19 06:40 Puncture Site Left radial 01/27/19 06:40 ABG pH 7.34 (7.35-7.45) L 01/27/19 06:40 ABG pCO2 at Pt Temp 38.7 mmHg (35-45) 01/27/19 06:40 ABG pO2 at Pt Temp 205 mmHg (80-105) H 01/27/19 06:40 ABG HCO3 20.1 mmol/L (22-27) L 01/27/19 06:40 ABG O2 Sat (Measured) 99.9 % (95-98) H 01/27/19 06:40 ABG O2 Content 15.0 % vol (15-22) 01/27/19 06:40 ABG Base Excess -4.7 meq/l (-2-2) L 01/27/19 06:40 Pedro Test Positive 01/27/19 06:40 Carboxyhemoglobin 1.5 % (0-2) 01/26/19 23:30 Methemoglobin 0.2 % (0-2) 01/26/19 23:30 O2 Delivery Device Vent 01/27/19 06:40 Oxygen Flow Rate 60% 01/27/19 06:40 Vent Mode A/c 01/27/19 06:40 Vent Rate 16 01/27/19 06:40 Mechanical Rate Yes 01/27/19 06:40 PEEP 5.0 cmH2O 01/27/19 06:40 Pressure Support Vent 450 01/27/19 06:40 Sodium 138 mmol/L (136-145) 02/03/19 05:30 Potassium 3.3 mmol/L (3.5-5.1) L 02/03/19 05:30 Chloride 100 mmol/L (98-107) 02/03/19 05:30 Carbon Dioxide 28 mmol/L (21-32) 02/03/19 05:30 Anion Gap 10 MMOL/L (8-16) 02/03/19 05:30 BUN 27.4 mg/dL (7-18) H 02/03/19 05:30 Creatinine 2.1 mg/dL (0.55-1.3) H 02/03/19 05:30 Est GFR (CKD-EPI)AfAm 26.77 02/03/19 05:30 Est GFR (CKD-EPI)NonAf 23.10 02/03/19 05:30 POC Glucometer 150 UNITS (80-120) 02/03/19 12:13 Random Glucose 144 mg/dL (74-106) H 02/03/19 05:30 Lactic Acid 2.1 mmol/L (0.4-2.0) H 01/27/19 02:00 Calcium 8.7 mg/dL (8.5-10.1) 02/03/19 05:30 Phosphorus 3.7 mg/dL (2.5-4.9) 02/02/19 06:10 Magnesium 2.2 mg/dL (1.8-2.4) 02/02/19 06:10 Total Bilirubin 0.8 mg/dL (0.2-1) 01/31/19 05:20 AST 15 U/L (15-37) 01/31/19 05:20 ALT 16 U/L (13-61) 01/31/19 05:20 Alkaline Phosphatase 125 U/L (45-117) H 01/31/19 05:20 Creatine Kinase 76 U/L (26-192) 01/27/19 02:00 Troponin I 2.10 ng/ml (0.00-0.05) H* 01/29/19 05:30 Total Protein 5.1 g/dl (6.4-8.2) L 01/31/19 05:20 Albumin 2.0 g/dl (3.4-5.0) L 01/31/19 05:20 Stool Occult Blood Negative (NEGATIVE) 02/03/19 00:30 Random Vancomycin 20.4 ug/ml (18-26) 02/02/19 06:00 Digoxin 0.10 ng/ml (0.8-2.0) L 01/26/19 23:00 Assessment/Plan Echo 12/01: nl LV function, RV mod to severely dilated, RV function mod to severely reduced, mod dilated LA/RA, RVSP 40-50 mmHg, mod TR Echo 01/2019 - LV function slightly worsened, 45-50%, LA mod dilated, RV mod to severely dilated, tr AR, RV function mod to severely reduced, mild MR, mild to mod TR, RA mod to severely dilated, mobile echodensity in pleural space tele: sr cxr: clear lungs est cct 35 mins IMP: -Acute on chronic hypoxic/hypercapneic respiratory failure at HD, with bradycardia (40s-50s) -possible RLL PNA, sepsis -NSTEMI (troponin to 2): most likely Type II secondary to acute strain from CHF/ pulm HTN and acute resp failure, vs sec to hypotension at time of arrest. -septic shock on Levophed, doubt cardiogenic shock here -HFpEF, pulmonary HTN, RV dysfunction -ESRD on HD -h/o DVT /PE on AC REC: -Vent support per crit care -Pressors to maintain MAP 60mmHg--tolerating Levophed (weaning as tolerated) without tachycardia -If develops signs of cool extremities or worsening hypotension, consider trial of milrinone for RV function - currently stable - repeat echo with LV function slightly worsened compared to prior, RV function is mod to severely reduced (stable) - repeat echo also shows echodensity in pleural space - consider chest imaging per critical care -HD as per renal for volume management -Cont xarelto (anemia, PLTs stable) -hold AVN blockers (hypotension), HRs ok -cont midodrine for bp support at HD -will defer ischemia evaluation as 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 she is at prohibitive risk for invasive tx strategy given extremely poor functional status with severe comorbidities at present. hypotension (requires midodrine for bp support at HD at baseline) will not tolerate signif b-blockade, though will try to give low dose if can tolerate, once she is off pressors. -no ASA for now given pt on Xarelto with mild anemia/thrombocytopenia (and likely dysfunctional PLTs in HD pt), and hi risk for bleeding at present -if she recovers from the acute illness will potentially reconsider above approach
[2019-02-03] MEDS: RIVAROXABAN 15 MG TABLET PO SCH (17:06)
[2019-02-03] MEDS: NOREPINEPHRINE BITARTRATE 8,000 MCG in DEXTROSE 5%-WATER - 492 ML IV SCH (19:43)
[2019-02-03] MEDS ORDERED: ACETAMINOPHEN 1000 MG/100 ML VIAL (NON FORMULARY) IVPB PRN (19:55)
[2019-02-04] MEDS: INSULIN SLIDING SCALE (NOVOLOG) 1 VIAL SQ SCH ×5 (03:27→23:32)
[2019-02-04 06:36] LABS: HEMOGLOBIN 8.9 GM/dL (10.7-15.3); MCH 30.5 pg (25.7-33.7); MCHC 31.9 g/dl (32.0-36.0); MEAN CELL VOLUME 95.6 fl (80-96); MEAN PLT VOLUME 8.2 fl (7.5-11.1); PLATELET COUNT 267 K/MM3 (134-434); RBC 2.93 M/mm3 (3.60-5.2); RDW 18.6 % (11.6-15.6); WHITE BLOOD COUNT 4.7 K/mm3 (4.0-10.0)
[2019-02-04 07:06] LABS: CALCIUM 8.6 mg/dL (8.5-10.1); CREATININE 2.6 mg/dL (0.55-1.3); MAGNESIUM 2.2 mg/dL (1.8-2.4); PHOSPHOROUS 4.1 mg/dL (2.5-4.9); POTASSIUM 3.6 mmol/L (3.5-5.1)
[2019-02-04] MEDS ORDERED: SODIUM CHLORIDE 250 ML IV PRN (08:00)
[2019-02-04] MEDS: LEVOTHYROXINE NA 50 MCG TABLET (FP) PO SCH (08:14)
[2019-02-04] MEDS: ALBUMIN HUMAN 25% 12.5 GM/50 ML VIAL IVPB SCH ×4 (09:00→13:19)
[2019-02-04] MEDS ORDERED: EPOETIN ALFA 10,000 UNIT/1 ML VIAL IVPUSH ONE (09:00)
--- NOTE | 2019-02-04 10:26 | CONSULT ---
Admitting History and Physical - Primary Care Physician PCP: Marlene Camargo - Admission History of Present Illness: This is a 73 y/o woman from [facility] with a PMHx of ESRD, Orthostatic Hypotension, CHF, Afib (on Digoxin), DVTs (in limbs)Pulmonary Edema, recent admissions for Respiratory Failure 07/2018, Pneumonia 08/2018, 09/2018, presented to the ED 12/07 in respiratory distress,Spo2 80s. after vomiting, he had increased respiratory difficulty.Intubated 12/25-. MBS 12/31/18 (-) except for impulsive eating. Placed on soft diet/thin liquids with supervision, reminders to eat slowly. Admitted 01/27 to the ICU for unresponsiveness secondary to acute respiratory failure likely from hypercapneia and hypotension from fluid removal during dialysis. Acute Hypercapneic Respiratory Failure Hypotension ESRD CHF DM Hypothyroidism Atrial fibrillation Extubated 02/03. History Source: Patient, Family Member, Medical Record Limitations to Obtaining History: Clinical Condition - Past Medical History Cardiovascular: Yes: AFIB, CHF, Deep Vein Thrombosis Pulmonary: Yes: Bronchitis, Pneumonia, Previously Intubated, Pulmonary Embolus, Sleep Apnea Gastrointestinal: Yes: GERD Renal/: Yes: Hemodialysis Endocrine: Yes: Diabetes Mellitus - Smoking History Smoking history: Unknown if ever smoked Have you smoked in the past 12 months: No - Alcohol/Substance Use Hx Alcohol Use: No - Social History ADL: Support Services History of Recent Travel: No History - Admission Reason For Visit: END STAGE RENAL DISEASE ON HEMODIALYSIS, ACUTE - Diagnostics X-ray: Report Reviewed - General Mental Status: Alert and Oriented, Awake and Alert, Able to Follow Commands, Intermittently Confused (Asking some strange questions about her bed position etc but oriented.) Attention: Intact Ability to Follow Directions: Good Head/Neck Control: Needs Assist - Hearing Hearing: Functional Speech Evaluation - Communication Primary Language: TURKISH - Speech Production Able to Make Needs Known: Yes: Mildly Impaired Intelligibility: Yes: Mildly Impaired - Speech Characteristics Voice Loudness: Normal Voice Pitch: Yes: Normal Voice Phonatory-based Quality: Yes: Harsh, Dysphonia Speech Pattern: Impaired Speech Clarity: < 75% Articulation: Yes: Precise - Language/Auditory Comprehension Follows: Yes: 1 Stage Simple Commands Observation: Able to respond to yes/no queries: Yes, Yes/No Confusion: No, Comprehends Conversational Speech: Yes - Language/Verbal Expression Able to Communicate Wants and Needs: Yes: WNL Functional Communication Status: Yes: WNL - Swallow Evaluation/Bedside Assessment Current Nutritional Intake: NPO Oral Secretions: Yes: WFL Dentition: Yes: Adequate Facial Symmetry at Rest: Symmetrical Facial Symmetry on Retraction: Symmetrical Facial Movement: Controlled Against Resistance Opening: Normal Against Resistance Closing: Normal Pucker Lips: Normal Smile: Normal Lingual Movement: Normal, Symmetric Lingual Speed of Movement: Normal Lingual Movement Strgth Against Opposition: Normal Lingual Movement Characteristics: Normal Laryngeal Movement: Labored,delay initiation Rate of Intake: WFL Bolus Size: WFL Labial Seal: WFL Oral Prep Time: WFL A-P Transit: WFL Pocketing: None Timing of Swallow: Delayed Coughing/Throat Clear: Yes (thin liquid) Recommendations - Speech Evaluation, Impression/Plan Impression: Extubated yesterday. Speech production is harsh, with reduced velocity of articulation. Although oriented, seems intermittently confused. Cough response on thin liquid. Overtly tolerated puree/thick liquid. - Disposition Discharge to: Custodial Facility - Dysphagia Impressions/Plan Swallowing Skills: Impaired Dysphagia Impressions: Mild Impairment, Moderate Impairment, Suspect Aspiration *Silent aspiration: cannot be R/O at bedside Dysphagia Treatment Plan: Small Bites, Chin Tuck/Down, Trial Feedings, Safe Rate , 1/2 tsp. at a time, Elevate HOB during feed Recommendations: Modified Barium Swallow (if cough, congestion, fever) - Recommendations Diet Consistency: Dysphagia Pureed Medication Administration: Crushed with applesauce Liquids: Honey Thick (on tsp) Supplement: Magic Cup, Ensure Pudding
[2019-02-04] MEDS: PANTOPRAZOLE SODIUM 40 MG VIAL IVPUSH SCH (10:48)
[2019-02-04] MEDS: NYSTATIN 100000 UNIT/GM TOPICAL OINTMENT 15 GM TUBE TP SCH ×2 (10:50→21:54)
[2019-02-04] MEDS: AMINO ACIDS/PROTEIN HYDROLYS 30 ML LIQUID.PKT PO SCH ×2 (10:50→19:19)
[2019-02-04] MEDS: COLLAGENASE CLOSTRIDIUM HIST. 30 GRAMS TUBE TP SCH (10:50)
[2019-02-04] MEDS: VITAMIN B COMP W-C 1 EA TABLET PO SCH (10:50)
[2019-02-04] MEDS: SILVER SULFADIAZINE 1% TOP CREAM 400 GM JAR TP SCH ×2 (10:51→21:53)
[2019-02-04] MEDS: SERTRALINE HCL 50 MG TABLET (FP) PO SCH (10:51)
[2019-02-04] MEDS: MIDODRINE HCL 5 MG TABLET PO SCH ×3 (10:51→19:19)
--- NOTE | 2019-02-04 11:20 | PN ---
Teaching Attending Note Name of Resident: Tigre Jones ATTENDING PHYSICIAN STATEMENT I saw and evaluated the patient. I reviewed the resident's note and discussed the case with the resident. I agree with the resident's findings and plan as documented. SUBJECTIVE: Pt seen and examined in the ICU. Extubated yesterday without incident. Remains on levohped gtt. Currently receiving HD. OBJECTIVE: Vital Signs Period Temp Pulse Resp BP Sys/Jhaveri Pulse Ox Last 24 Hr 98.3 F 71-99 16-24 82-146/5-74 100-100 Intake & Output 02/01/19 02/02/19 02/03/19 02/04/19 23:59 23:59 23:59 23:59 Intake Total 2219 2384.4 392 250 Output Total 0 5600 0 0 Balance 2219 -3215.6 392 250 Weight 84.277 kg 87.135 kg 87.135 kg Gen: NAD at rest Heart: RRR Lung: decreased breath sounds at the bases Abd: soft, nontender Ext: less edema CBC, BMP 02/04/19 05:40 02/04/19 05:40 Active Medications Acetaminophen (Ofirmev Injection -) 1,000 mg IVPB Q6H PRN PRN Reason: PAIN OR FEVER Last Admin: 02/03/19 21:55 Dose: 1,000 mg Albuterol Sulfate (Ventolin 0.083% Nebulizer Soln -) 1 amp NEB Q6H PRN PRN Reason: SHORT OF BREATH/WHEEZING Amino Acids (Prosource No Carb Liquid Pkt) 30 ml PO BID@0800,1730 [facility] Last Admin: 02/04/19 10:50 Dose: Not Given Chlorhexidine Gluconate (Peridex -) 15 ml MM BID [facility] Last Admin: 02/03/19 21:11 Dose: 15 ml Collagenase (Santyl -) 1 applic TP DAILY [facility]; Protocol Last Admin: 02/04/19 10:50 Dose: 1 applic Norepinephrine Bitartrate 8, (000 mcg/ Dextrose) 500 mls @ 18.75 mls/hr IV TITR [facility]; Protocol Last Admin: 02/03/19 19:43 Dose: 6 mcg/min, 22.5 mls/hr Sodium Chloride (Normal Saline -) 250 mls @ 3,000 mls/hr IV PRN PRN PRN Reason: Hypotension during Dialysis Stop: 02/05/19 07:59 Insulin Aspart (Novolog Vial Sliding Scale -) 1 vial SQ Q6HPO [facility]; Protocol Last Admin: 02/04/19 08:13 Dose: Not Given Levothyroxine Sodium (Synthroid -) 50 mcg PO DAILY@0700 [facility] Last Admin: 02/04/19 08:14 Dose: Not Given Lidocaine/Prilocaine (Emla -) 1 applic TP QID PRN PRN Reason: HEMORRHOIDS Midodrine (Proamatine -) 10 mg PO TID-MID [facility] Last Admin: 02/04/19 10:51 Dose: Not Given Multivit/Ca Carb/B Cmplx/FA/Prenat (Nephro-Evert -) 1 tablet PO DAILY [facility] Last Admin: 02/04/19 10:50 Dose: Not Given Nystatin (Mycostatin Ointment -) 1 applic TP BID [facility] Last Admin: 02/04/19 10:50 Dose: 1 applic Ondansetron HCl (Zofran -) 4 mg PO Q6H PRN PRN Reason: NAUSEA AND/OR VOMITING Pantoprazole Sodium (Protonix Iv) 40 mg IVPUSH DAILY [facility] Last Admin: 02/04/19 10:48 Dose: 40 mg Rivaroxaban (Xarelto) 15 mg PO DAILY@1800 [facility] Last Admin: 02/03/19 17:06 Dose: Not Given Sertraline HCl (Zoloft -) 50 mg PO DAILY [facility] Last Admin: 02/04/19 10:51 Dose: Not Given Silver Sulfadiazine (Silvadene -) 1 applic TP BID [facility] Last Admin: 02/04/19 10:51 Dose: 1 applic ASSESSMENT AND PLAN: Acute on Chronic Hypoxic and Hypercapneic Respiratory Failure improving r/o Pneumonia Shock likely Septic Volume Overload ESRD on HD +Troponins likely Demand Ischemia Pulmonary HTN h/o PE/DVT - completed antibiotics - taper pressors to maintain MAP >55 - continue midodrine - HD per renal with ultrafiltration - taper FiO2 to keep SpO2 >90%, transition to nasal cannula - continue anticoagulation - swallow eval - DVT/GI prophylaxis - continue ICU monitoring critical care time spent in reviewing chart, evaluating patient and formulating plan 35 min
--- NOTE | 2019-02-04 11:42 | PN ---
Progress Note, Physician Chief Complaint: patient awake alert in icu s/p HD on pressor 7 mcg s/p extubation - Current Medication List Current Medications: Active Medications Acetaminophen (Ofirmev Injection -) 1,000 mg IVPB Q6H PRN PRN Reason: PAIN OR FEVER Last Admin: 02/03/19 21:55 Dose: 1,000 mg Albuterol Sulfate (Ventolin 0.083% Nebulizer Soln -) 1 amp NEB Q6H PRN PRN Reason: SHORT OF BREATH/WHEEZING Amino Acids (Prosource No Carb Liquid Pkt) 30 ml PO BID@0800,1730 [facility] Last Admin: 02/04/19 10:50 Dose: Not Given Chlorhexidine Gluconate (Peridex -) 15 ml MM BID [facility] Last Admin: 02/03/19 21:11 Dose: 15 ml Collagenase (Santyl -) 1 applic TP DAILY [facility]; Protocol Last Admin: 02/04/19 10:50 Dose: 1 applic Norepinephrine Bitartrate 8, (000 mcg/ Dextrose) 500 mls @ 18.75 mls/hr IV TITR [facility]; Protocol Last Admin: 02/03/19 19:43 Dose: 6 mcg/min, 22.5 mls/hr Sodium Chloride (Normal Saline -) 250 mls @ 3,000 mls/hr IV PRN PRN PRN Reason: Hypotension during Dialysis Stop: 02/05/19 07:59 Insulin Aspart (Novolog Vial Sliding Scale -) 1 vial SQ Q6HPO [facility]; Protocol Last Admin: 02/04/19 08:13 Dose: Not Given Levothyroxine Sodium (Synthroid -) 50 mcg PO DAILY@0700 [facility] Last Admin: 02/04/19 08:14 Dose: Not Given Lidocaine/Prilocaine (Emla -) 1 applic TP QID PRN PRN Reason: HEMORRHOIDS Midodrine (Proamatine -) 10 mg PO TID-MID [facility] Last Admin: 02/04/19 10:51 Dose: Not Given Multivit/Ca Carb/B Cmplx/FA/Prenat (Nephro-Evert -) 1 tablet PO DAILY [facility] Last Admin: 02/04/19 10:50 Dose: Not Given Nystatin (Mycostatin Ointment -) 1 applic TP BID [facility] Last Admin: 02/04/19 10:50 Dose: 1 applic Ondansetron HCl (Zofran -) 4 mg PO Q6H PRN PRN Reason: NAUSEA AND/OR VOMITING Pantoprazole Sodium (Protonix Iv) 40 mg IVPUSH DAILY [facility] Last Admin: 02/04/19 10:48 Dose: 40 mg Rivaroxaban (Xarelto) 15 mg PO DAILY@1800 [facility] Last Admin: 02/03/19 17:06 Dose: Not Given Sertraline HCl (Zoloft -) 50 mg PO DAILY [facility] Last Admin: 02/04/19 10:51 Dose: Not Given Silver Sulfadiazine (Silvadene -) 1 applic TP BID [facility] Last Admin: 02/04/19 10:51 Dose: 1 applic - Objective Vital Signs: Vital Signs Temperature 98.3 F 02/03/19 14:00 Pulse Rate 89 02/04/19 10:31 Respiratory Rate 22 H 02/04/19 10:31 Blood Pressure 120/73 02/04/19 10:31 O2 Sat by Pulse Oximetry (%) 100 02/04/19 09:00 Constitutional: Yes: Calm Cardiovascular: Yes: Regular Rate and Rhythm, S1, S2 Respiratory: Yes: Diminished, On Venti-Mask Gastrointestinal: Yes: Normal Bowel Sounds, Soft Edema: Yes Neurological: Yes: Alert Labs: CBC, BMP 02/04/19 05:40 02/04/19 05:40 INR, PTT INR 1.76 (0.83-1.09) H 01/27/19 05:45 Problem List - Problems (1) Acute respiratory failure Assessment/Plan: intubated- now extubated on venti mask possible pna on iv zosyn/ vanco- completed adele need pulm rehab spoke to daughter about LTAC Code(s): J96.00 - ACUTE RESPIRATORY FAILURE, UNSP W HYPOXIA OR HYPERCAPNIA Qualifiers: Respiratory failure complication: hypoxia Qualified Code(s): J96.01 - Acute respiratory failure with hypoxia (2) Hypothyroid Assessment/Plan: on synthroid Code(s): E03.9 - HYPOTHYROIDISM, UNSPECIFIED (3) ESRD on hemodialysis Assessment/Plan: HD per renal epogen with HD Code(s): N18.6 - END STAGE RENAL DISEASE; Z99.2 - DEPENDENCE ON RENAL DIALYSIS (4) Hypotension Assessment/Plan: on levophed- trying to wean off pressors iv abx completed midodrine wbc trending down keep MAP> 55 Code(s): I95.9 - HYPOTENSION, UNSPECIFIED Qualifiers: Hypotension type: unspecified hypotension type Qualified Code(s): I95.9 - Hypotension, unspecified (5) H/O deep venous thrombosis Assessment/Plan: on xarelto Code(s): Z86.718 - PERSONAL HISTORY OF OTHER VENOUS THROMBOSIS AND EMBOLISM (6) Elevated troponin Assessment/Plan: NSTEMi- inc troponin secondary to strain from resp failure, septic shock Code(s): R74.8 - ABNORMAL LEVELS OF OTHER SERUM ENZYMES
[2019-02-04] MEDS ORDERED: NOREPINEPHRINE BITARTRATE 4 MG/4 ML ML IV ONE (11:50)
[2019-02-04] MEDS: NOREPINEPHRINE BITARTRATE 8,000 MCG in DEXTROSE 5%-WATER - 492 ML IV SCH (12:01)
--- NOTE | 2019-02-04 13:06 | PN ---
Progress Note (short form) - Note Progress Note: s: extubated, still on pressors. denies cp sob palps dizzy Current Medications Current Medications Generic Name Dose Route Start Last Admin Trade Name Roberto PRN Reason Stop Dose Admin Acetaminophen 1,000 mg 02/03/19 19:55 02/03/19 21:55 Ofirmev Injection - IVPB 1,000 mg Q6H PRN Administration PAIN OR FEVER Albuterol Sulfate 1 amp 01/27/19 01:54 Ventolin 0.083% Nebulizer Soln - NEB Q6H PRN SHORT OF BREATH/WHEEZING Amino Acids 30 ml 01/31/19 17:30 02/04/19 10:50 Prosource No Carb Liquid Pkt PO Not Given BID@0800,1730 [facility] Chlorhexidine Gluconate 15 ml 01/31/19 10:00 02/03/19 21:11 Peridex - MM 15 ml BID [facility] Administration Collagenase 1 applic 02/02/19 10:15 02/04/19 10:50 Santyl - TP 1 applic DAILY [facility] Administration Protocol Norepinephrine Bitartrate 8, 500 mls @ 18.75 mls/hr 01/28/19 11:15 02/04/19 12:01 000 mcg/ Dextrose IV 4 mcg/min TITR [facility] 15 mls/hr Administration Protocol 5 MCG/MIN Sodium Chloride 250 mls @ 3,000 mls/hr 02/04/19 08:00 Normal Saline - IV 02/05/19 07:59 PRN PRN Hypotension during Dialysis Insulin Aspart 1 vial 01/27/19 12:00 02/04/19 12:00 Novolog Vial Sliding Scale - SQ Not Given Q6HPO COUNTS INCLUDE 234 BEDS AT THE [facility] Protocol Levothyroxine Sodium 50 mcg 01/27/19 07:00 02/04/19 08:14 Synthroid - PO Not Given DAILY@0700 [facility] Lidocaine/Prilocaine 1 applic 01/27/19 01:55 Emla - TP QID PRN HEMORRHOIDS Midodrine 10 mg 01/27/19 14:30 02/04/19 10:51 Proamatine - PO Not Given TID-MID COUNTS INCLUDE 234 BEDS AT THE [facility] Multivit/Ca Carb/B Cmplx/FA/Prenat 1 tablet 01/27/19 10:00 02/04/19 10:50 Nephro-Evert - PO Not Given DAILY [facility] Nystatin 1 applic 01/27/19 22:00 02/04/19 10:50 Mycostatin Ointment - TP 1 applic BID [facility] Administration Ondansetron HCl 4 mg 01/27/19 01:57 Zofran - PO Q6H PRN NAUSEA AND/OR VOMITING Pantoprazole Sodium 40 mg 01/31/19 10:00 02/04/19 10:48 Protonix Iv IVPUSH 40 mg DAILY [facility] Administration Rivaroxaban 15 mg 01/27/19 18:00 02/03/19 17:06 Xarelto PO Not Given DAILY@1800 [facility] Sertraline HCl 50 mg 01/27/19 10:00 02/04/19 10:51 Zoloft - PO Not Given DAILY [facility] Silver Sulfadiazine 1 applic 01/27/19 10:00 02/04/19 10:51 Silvadene - TP 1 applic BID [facility] Administration Vital Signs Temp 98.3 F 02/03/19 14:00 Pulse 89 02/04/19 10:31 Resp 22 H 02/04/19 10:31 BP 93/65 02/04/19 12:01 Pulse Ox 100 02/04/19 09:00 Intake & Output 02/03/19 02/04/19 02/04/19 23:59 11:59 23:59 Intake Total 320 550 Output Total 0 3400 Balance 320 -2850 Intake: IV 200 500 Levophed - 8,000 Mcg In 200 D5w - 492 ml @ 5 MCG/MIN 18.75 mls/hr IV TITR [facility] Rx#:[id number] Normal Saline - 250 ml @ 500 3000 mls/hr IV PRN PRN Rx #:[id number] IVPB 120 Oral 0 Albumin 50 Output: Urine 0 0 Void 0 0 Fluid Removed, 3400 Hemodialysis Other: Voiding Method Diaper Diaper Bowel Movement Yes No # Bowel Movements 1 Body Mass Index (BMI) 35.1 Constitutional: Yes: No Distress, Calm, Obese Cardiovascular: Yes: Pulse Irregular, S1, S2. No: JVD (prohibitive tds phys exam), Gallop, Murmur Respiratory: Yes: Regular, CTA Bilaterally nl eff. No: Accessory Muscle Use Extremities: No: Cold Edema: No Neurological: awake, confused Psychiatric: No: Agitated no jaundice, diaphoresis Laboratory Last Values WBC 4.7 K/mm3 (4.0-10.0) 02/04/19 05:40 RBC 2.93 M/mm3 (3.60-5.2) L 02/04/19 05:40 Hgb 8.9 GM/dL (10.7-15.3) L 02/04/19 05:40 Hct 28.0 % (32.4-45.2) L 02/04/19 05:40 MCV 95.6 fl (80-96) 02/04/19 05:40 MCH 30.5 pg (25.7-33.7) 02/04/19 05:40 MCHC 31.9 g/dl (32.0-36.0) L 02/04/19 05:40 RDW 18.6 % (11.6-15.6) H 02/04/19 05:40 Plt Count 267 K/MM3 (134-434) D 02/04/19 05:40 MPV 8.2 fl (7.5-11.1) 02/04/19 05:40 Absolute Neuts (auto) 11.3 K/mm3 (1.5-8.0) H 01/29/19 05:30 Neutrophils % 85.1 % (42.8-82.8) H 01/29/19 05:30 Lymphocytes % 6.9 % (8-40) L 01/29/19 05:30 Monocytes % 7.1 % (3.8-10.2) 01/29/19 05:30 Eosinophils % 0.0 % (0-4.5) D 01/29/19 05:30 Basophils % 0.9 % (0-2.0) 01/29/19 05:30 Nucleated RBC % 0 % (0-0) 01/29/19 05:30 PT with INR 20.90 SEC (9.7-13.0) H 01/27/19 05:45 INR 1.76 (0.83-1.09) H 01/27/19 05:45 PTT (Actin FS) 33.3 SECONDS (25.2-36.5) 01/27/19 05:45 Anticoagulation Therapy No Result Required. 01/27/19 06:40 Puncture Site Left radial 01/27/19 06:40 ABG pH 7.34 (7.35-7.45) L 01/27/19 06:40 ABG pCO2 at Pt Temp 38.7 mmHg (35-45) 01/27/19 06:40 ABG pO2 at Pt Temp 205 mmHg (80-105) H 01/27/19 06:40 ABG HCO3 20.1 mmol/L (22-27) L 01/27/19 06:40 ABG O2 Sat (Measured) 99.9 % (95-98) H 01/27/19 06:40 ABG O2 Content 15.0 % vol (15-22) 01/27/19 06:40 ABG Base Excess -4.7 meq/l (-2-2) L 01/27/19 06:40 Pedro Test Positive 01/27/19 06:40 Carboxyhemoglobin 1.5 % (0-2) 01/26/19 23:30 Methemoglobin 0.2 % (0-2) 01/26/19 23:30 O2 Delivery Device Vent 01/27/19 06:40 Oxygen Flow Rate 60% 01/27/19 06:40 Vent Mode A/c 01/27/19 06:40 Vent Rate 16 01/27/19 06:40 Mechanical Rate Yes 01/27/19 06:40 PEEP 5.0 cmH2O 01/27/19 06:40 Pressure Support Vent 450 01/27/19 06:40 Sodium 137 mmol/L (136-145) 02/04/19 05:40 Potassium 3.6 mmol/L (3.5-5.1) 02/04/19 05:40 Chloride 100 mmol/L (98-107) 02/04/19 05:40 Carbon Dioxide 29 mmol/L (21-32) 02/04/19 05:40 Anion Gap 7 MMOL/L (8-16) L 02/04/19 05:40 BUN 33.0 mg/dL (7-18) H 02/04/19 05:40 Creatinine 2.6 mg/dL (0.55-1.3) H 02/04/19 05:40 Est GFR (CKD-EPI)AfAm 20.68 02/04/19 05:40 Est GFR (CKD-EPI)NonAf 17.84 02/04/19 05:40 POC Glucometer 112 UNITS (80-120) 02/04/19 11:59 Random Glucose 115 mg/dL (74-106) H 02/04/19 05:40 Lactic Acid 2.1 mmol/L (0.4-2.0) H 01/27/19 02:00 Calcium 8.6 mg/dL (8.5-10.1) 02/04/19 05:40 Phosphorus 4.1 mg/dL (2.5-4.9) 02/04/19 05:40 Magnesium 2.2 mg/dL (1.8-2.4) 02/04/19 05:40 Total Bilirubin 0.8 mg/dL (0.2-1) 01/31/19 05:20 AST 15 U/L (15-37) 01/31/19 05:20 ALT 16 U/L (13-61) 01/31/19 05:20 Alkaline Phosphatase 125 U/L (45-117) H 01/31/19 05:20 Creatine Kinase 76 U/L (26-192) 01/27/19 02:00 Troponin I 2.10 ng/ml (0.00-0.05) H* 01/29/19 05:30 Total Protein 5.1 g/dl (6.4-8.2) L 01/31/19 05:20 Albumin 2.0 g/dl (3.4-5.0) L 01/31/19 05:20 Stool Occult Blood Negative (NEGATIVE) 02/03/19 00:30 Random Vancomycin 20.4 ug/ml (18-26) 02/02/19 06:00 Digoxin 0.10 ng/ml (0.8-2.0) L 01/26/19 23:00 Assessment/Plan Echo 12/01: nl LV function, RV mod to severely dilated, RV function mod to severely reduced, mod dilated LA/RA, RVSP 40-50 mmHg, mod TR Echo 01/2019 - LV function slightly worsened, 45-50%, LA mod dilated, RV mod to severely dilated, tr AR, RV function mod to severely reduced, mild MR, mild to mod TR, RA mod to severely dilated, mobile echodensity in pleural space tele: sr cxr: clear lungs est cct 35 mins IMP: -Acute on chronic hypoxic/hypercapneic respiratory failure at HD, with bradycardia (40s-50s) -possible RLL PNA, sepsis -NSTEMI (troponin to 2): most likely Type II secondary to acute strain from CHF/ pulm HTN and acute resp failure, vs sec to hypotension at time of arrest. -septic shock on Levophed, doubt cardiogenic shock here -HFpEF, pulmonary HTN, RV dysfunction -ESRD on HD -h/o DVT /PE on AC REC: -now extubated -remains on Pressors to maintain MAP 60mmHg--tolerating Levophed (weaning as tolerated) without tachycardia -repeat echo with LV function slightly worsened compared to prior, RV function is mod to severely reduced (stable) -repeat echo also shows echodensity in pleural space - consider chest imaging per critical care -HD as per renal for volume management -Cont xarelto (anemia, PLTs stable) -hold AVN blockers (hypotension), HRs ok -cont midodrine for bp support at HD -will defer ischemia evaluation as this will not address change clerk. she is at prohibitive risk for invasive tx strategy given extremely poor functional status with severe comorbidities at present. hypotension (requires midodrine for bp support at HD at baseline) will not tolerate signif b-blockade, though will try to give low dose if can tolerate, once she is off pressors. -no ASA for now given pt on Xarelto with mild anemia/thrombocytopenia (and likely dysfunctional PLTs in HD pt), and hi risk for bleeding at present -if she recovers from the acute illness will potentially reconsider above approach
[2019-02-04] MEDS: CHLORHEXIDINE GLUCONATE 0.12% 15ML CUP MM SCH (13:19)
--- NOTE | 2019-02-04 13:24 | PN ---
Physical Exam: SUBJECTIVE: Patient seen and examined at the bedside. Is intermittently confused , stating she doesn't know how she got to the hospital. Has been reoriented and is doing better. Stated she has some throat pain and generalized weakness. Denied cp, sob, abd pain, n/v, fever, chills, headaches, dizziness, lightheadedness. Has been tolerating Venti-mask well and was placed on NC and is tolerating it well. Had HD today with 2.9L removed and tolerated it well. OBJECTIVE: Vital Signs Period Temp Pulse Resp BP Sys/Jhaveri Pulse Ox Last 24 Hr 98.3 F 71-99 16-24 87-146/5-74 100-100 GENERAL: Awake and alert, able to answer questions. Intermittent confusion, oriented x1. HEAD: Normal with no signs of trauma. EYES: Pupils equal, round and normal reaction to light, sclera anicteric, conjunctiva clear. NECK: No JVD or masses noted LUNGS: R>L breath sounds, decreased at the bases, no wheezes, coarse breath sounds heard. HEART: Irregular rhythm, normal rate, S1 and S2 without murmur, rub. ABDOMEN: Soft, moderately distended, normoactive bowel sounds, obese abdomen with non-symmetrical appearance EXTREMITIES: 2+ peripheral edema on the R, trace edema on the L on upper extremity. No calf tenderness. Trace peripheral edema on lower extremities. NEUROLOGICAL: CN II-XII intact SKIN: Cool, moist skin, diffuse ecchymoses noted Laboratory Results - last 24 hr 02/03/19 02/04/19 02/04/19 16:39 05:40 05:40 WBC 4.7 RBC 2.93 L Hgb 8.9 L Hct 28.0 L MCV 95.6 MCH 30.5 MCHC 31.9 L RDW 18.6 H Plt Count 267 D MPV 8.2 Sodium 137 Potassium 3.6 Chloride 100 Carbon Dioxide 29 Anion Gap 7 L BUN 33.0 H Creatinine 2.6 H Est GFR (CKD-EPI)AfAm 20.68 Est GFR (CKD-EPI)NonAf 17.84 POC Glucometer 147 Random Glucose 115 H Calcium 8.6 Phosphorus 4.1 Magnesium 2.2 02/04/19 11:59 WBC RBC Hgb Hct MCV MCH MCHC RDW Plt Count MPV Sodium Potassium Chloride Carbon Dioxide Anion Gap BUN Creatinine Est GFR (CKD-EPI)AfAm Est GFR (CKD-EPI)NonAf POC Glucometer 112 Random Glucose Calcium Phosphorus Magnesium Active Medications Generic Name Dose Route Start Last Admin Trade Name Roberto PRN Reason Stop Dose Admin Acetaminophen 1,000 mg 02/03/19 19:55 02/03/19 21:55 Ofirmev Injection - IVPB 1,000 mg Q6H PRN Administration PAIN OR FEVER Albuterol Sulfate 1 amp 01/27/19 01:54 Ventolin 0.083% Nebulizer Soln - NEB Q6H PRN SHORT OF BREATH/WHEEZING Amino Acids 30 ml 01/31/19 17:30 02/04/19 10:50 Prosource No Carb Liquid Pkt PO Not Given BID@0800,1730 [facility] Collagenase 1 applic 02/02/19 10:15 02/04/19 10:50 Santyl - TP 1 applic DAILY [facility] Administration Protocol Norepinephrine Bitartrate 8, 500 mls @ 18.75 mls/hr 01/28/19 11:15 02/04/19 12:01 000 mcg/ Dextrose IV 4 mcg/min TITR [facility] 15 mls/hr Administration Protocol 5 MCG/MIN Sodium Chloride 250 mls @ 3,000 mls/hr 02/04/19 08:00 Normal Saline - IV 02/05/19 07:59 PRN PRN Hypotension during Dialysis Insulin Aspart 1 vial 01/27/19 12:00 02/04/19 12:00 Novolog Vial Sliding Scale - SQ Not Given Q6HPO [facility] Protocol Levothyroxine Sodium 50 mcg 01/27/19 07:00 02/04/19 08:14 Synthroid - PO Not Given DAILY@0700 [facility] Lidocaine/Prilocaine 1 applic 01/27/19 01:55 Emla - TP QID PRN HEMORRHOIDS Midodrine 10 mg 01/27/19 14:30 02/04/19 10:51 Proamatine - PO Not Given TID-MID [facility] Multivit/Ca Carb/B Cmplx/FA/Prenat 1 tablet 01/27/19 10:00 02/04/19 10:50 Nephro-Evert - PO Not Given DAILY [facility] Nystatin 1 applic 01/27/19 22:00 02/04/19 10:50 Mycostatin Ointment - TP 1 applic BID [facility] Administration Ondansetron HCl 4 mg 01/27/19 01:57 Zofran - PO Q6H PRN NAUSEA AND/OR VOMITING Pantoprazole Sodium 40 mg 01/31/19 10:00 02/04/19 10:48 Protonix Iv IVPUSH 40 mg DAILY [facility] Administration Rivaroxaban 15 mg 01/27/19 18:00 02/03/19 17:06 Xarelto PO Not Given DAILY@1800 [facility] Sertraline HCl 50 mg 01/27/19 10:00 02/04/19 10:51 Zoloft - PO Not Given DAILY [facility] Silver Sulfadiazine 1 applic 01/27/19 10:00 02/04/19 10:51 Silvadene - TP 1 applic BID [facility] Administration ASSESSMENT/PLAN: Argelia Patel is a 73 year old female with a PMHx of ESRD, Orthostatic Hypotension, CHF, DM, hypothyroid, COPD, Afib (on Xarelto), DVTs, Pulmonary Edema and multiple admissions for PNA (including intubation) admitted to the ICU for unresponsiveness secondary to acute respiratory failure likely from hypercapneia and hypotension from fluid removal during dialysis. Acute Hypercapneic Respiratory Failure Hypotension ESRD CHF DM Hypothyroidism Atrial fibrillation NEUROLOGIC - head CT with no acute intracranial pathology, possible mastoiditis and sinusitis CARDIOLOGY - on Levophed, on 4mcq this morning, titrate down as tolerated, double concentrated to reduce fluid volume given - EKG showing afib with RVR with occasional PVCs, poor study - repeat EKG showing no acute changes from EKG done on 01/19/19, low voltage study , afib - troponins elevated at 0.18 trended up to 0.89 > 1.85 > 2.46 > 2.1, likely demand in setting of hypovolemia, downtrending - previous echo 12/08/18 showing normal EF, moderate to severe right ventricle dilation, increased right ventricular systolic pressure - monitor I+Os - digoxin level 0.10 - Cardiology consulted, appreciate recs - continue Xarelto for afib - if worsening hypotension, can consider milrinone for RV function - MAP goals of 55-60 RESPIRATORY - on NC, satting well - albuterol nebulizer q6h prn RENAL - Dr. Molina consulted - HD today, removed 2.9L - albumin given - Epogen given - HD as per renal GASTROINTESTINAL - speech and swallow recommending puree diet with honey thick liquids and crush meds GENITOURINARY - zhang in INFECTIOUS DISEASE - hypotensive, no WBC, afebrile - unclear if infection is contributing to low BP, cannot r/o lung source or wound source - hx of cdiff, cautious approach to continuing antibiotics - blood cxs negative - completed antibiotics, monitor off, and watch fevers, WBC count - ID following, appreciate recommendations ENDOCRINE - continue home Synthroid - BGM q6h - ISS HEMATOLOGY - FOBT negative - Hgb stable - thrombocytopenia, improved, continue to monitor F/E/N - no standing fluids - continue to monitor electrolytes and replete as necessary, less aggressive hypokalemia and hypophospatemia replacement in setting of ESRD - Diabetic puree diet with honey thick liquids LINES - L femoral central line placed 01/26, will need prolonged access due to difficulty in obtaining access elsewhere, stenosis centrally - R femoral Tesio catheter PROPHYLAXIS - home Xarelto CODE - full code DISPO - continue to monitor in ICU - discussion with family about LTAC placement Visit type - Emergency Visit Emergency Visit: No - New Patient This patient is new to me today: No - Critical Care Critical Care patient: Yes Total Critical Care Time (in minutes): 38 Critical Care Statement: The care of this patient involved high complexity decision making to prevent further life threatening deterioration of the patient 's condition and/or to evaluate & treat vital organ system(s) failure or risk of failure.
--- NOTE | 2019-02-04 15:28 | PN ---
Progress Note, Physician History of Present Illness: Pt seen and examined at bedside. She is awake and is tolerating diet. She is more interactive today. Discussed care with family. - Current Medication List Current Medications: Active Medications Acetaminophen (Ofirmev Injection -) 1,000 mg IVPB Q6H PRN PRN Reason: PAIN OR FEVER Last Admin: 02/03/19 21:55 Dose: 1,000 mg Albuterol Sulfate (Ventolin 0.083% Nebulizer Soln -) 1 amp NEB Q6H PRN PRN Reason: SHORT OF BREATH/WHEEZING Amino Acids (Prosource No Carb Liquid Pkt) 30 ml PO BID@0800,1730 [facility] Last Admin: 02/04/19 10:50 Dose: Not Given Collagenase (Santyl -) 1 applic TP DAILY [facility]; Protocol Last Admin: 02/04/19 10:50 Dose: 1 applic Norepinephrine Bitartrate 8, (000 mcg/ Dextrose) 500 mls @ 18.75 mls/hr IV TITR [facility]; Protocol Last Admin: 02/04/19 12:01 Dose: 4 mcg/min, 15 mls/hr Sodium Chloride (Normal Saline -) 250 mls @ 3,000 mls/hr IV PRN PRN PRN Reason: Hypotension during Dialysis Stop: 02/05/19 07:59 Insulin Aspart (Novolog Vial Sliding Scale -) 1 vial SQ Q6HPO [facility]; Protocol Last Admin: 02/04/19 12:00 Dose: Not Given Levothyroxine Sodium (Synthroid -) 50 mcg PO DAILY@0700 [facility] Last Admin: 02/04/19 08:14 Dose: Not Given Lidocaine/Prilocaine (Emla -) 1 applic TP QID PRN PRN Reason: HEMORRHOIDS Midodrine (Proamatine -) 10 mg PO TID-MID [facility] Last Admin: 02/04/19 10:51 Dose: Not Given Multivit/Ca Carb/B Cmplx/FA/Prenat (Nephro-Evert -) 1 tablet PO DAILY [facility] Last Admin: 02/04/19 10:50 Dose: Not Given Nystatin (Mycostatin Ointment -) 1 applic TP BID [facility] Last Admin: 02/04/19 10:50 Dose: 1 applic Ondansetron HCl (Zofran -) 4 mg PO Q6H PRN PRN Reason: NAUSEA AND/OR VOMITING Pantoprazole Sodium (Protonix Iv) 40 mg IVPUSH DAILY [facility] Last Admin: 02/04/19 10:48 Dose: 40 mg Rivaroxaban (Xarelto) 15 mg PO DAILY@1800 [facility] Last Admin: 02/03/19 17:06 Dose: Not Given Sertraline HCl (Zoloft -) 50 mg PO DAILY [facility] Last Admin: 02/04/19 10:51 Dose: Not Given Silver Sulfadiazine (Silvadene -) 1 applic TP BID [facility] Last Admin: 02/04/19 10:51 Dose: 1 applic - Objective Vital Signs: Vital Signs Temperature 98.3 F 02/03/19 14:00 Pulse Rate 89 02/04/19 10:31 Respiratory Rate 22 H 02/04/19 10:31 Blood Pressure 93/65 02/04/19 12:01 O2 Sat by Pulse Oximetry (%) 100 02/04/19 09:00 Constitutional: Yes: Calm Eyes: Yes: Conjunctiva Clear HENT: Yes: Atraumatic Cardiovascular: Yes: S1, S2 Respiratory: Yes: On Nasal O2 Gastrointestinal: Yes: Soft, Abdomen, Obese Genitourinary: Yes: Incontinence Musculoskeletal: Yes: Muscle Weakness Edema: LUE: 1+, RUE: 1+, LLE: 1+, RLE: 1+ Neurological: Yes: Oriented Psychiatric: Yes: Oriented Labs: CBC, BMP 02/04/19 05:40 02/04/19 05:40 INR, PTT INR 1.76 (0.83-1.09) H 01/27/19 05:45 Problem List - Problems (1) Acute respiratory failure Code(s): J96.00 - ACUTE RESPIRATORY FAILURE, UNSP W HYPOXIA OR HYPERCAPNIA Qualifiers: Respiratory failure complication: hypoxia Qualified Code(s): J96.01 - Acute respiratory failure with hypoxia (2) ESRD on hemodialysis Code(s): N18.6 - END STAGE RENAL DISEASE; Z99.2 - DEPENDENCE ON RENAL DIALYSIS Assessment/Plan Current Medications Generic Name Dose Route Start Last Admin Trade Name Freq PRN Reason Stop Dose Admin Acetaminophen 1,000 mg 02/03/19 19:55 02/03/19 21:55 Ofirmev Injection - IVPB 1,000 mg Q6H PRN Administration PAIN OR FEVER Albuterol Sulfate 1 amp 01/27/19 01:54 Ventolin 0.083% Nebulizer Soln - NEB Q6H PRN SHORT OF BREATH/WHEEZING Amino Acids 30 ml 01/31/19 17:30 02/04/19 10:50 Prosource No Carb Liquid Pkt PO Not Given BID@0800,1730 [facility] Collagenase 1 applic 02/02/19 10:15 02/04/19 10:50 Santyl - TP 1 applic DAILY [facility] Administration Protocol Norepinephrine Bitartrate 8, 500 mls @ 18.75 mls/hr 01/28/19 11:15 02/04/19 12:01 000 mcg/ Dextrose IV 4 mcg/min TITR [facility] 15 mls/hr Administration Protocol 5 MCG/MIN Sodium Chloride 250 mls @ 3,000 mls/hr 02/04/19 08:00 Normal Saline - IV 02/05/19 07:59 PRN PRN Hypotension during Dialysis Insulin Aspart 1 vial 01/27/19 12:00 02/04/19 12:00 Novolog Vial Sliding Scale - SQ Not Given Q6HPO [facility] Protocol Levothyroxine Sodium 50 mcg 01/27/19 07:00 02/04/19 08:14 Synthroid - PO Not Given DAILY@0700 [facility] Lidocaine/Prilocaine 1 applic 01/27/19 01:55 Emla - TP QID PRN HEMORRHOIDS Midodrine 10 mg 01/27/19 14:30 02/04/19 10:51 Proamatine - PO Not Given TID-MID [facility] Multivit/Ca Carb/B Cmplx/FA/Prenat 1 tablet 01/27/19 10:00 02/04/19 10:50 Nephro-Evert - PO Not Given DAILY [facility] Nystatin 1 applic 01/27/19 22:00 02/04/19 10:50 Mycostatin Ointment - TP 1 applic BID [facility] Administration Ondansetron HCl 4 mg 01/27/19 01:57 Zofran - PO Q6H PRN NAUSEA AND/OR VOMITING Pantoprazole Sodium 40 mg 01/31/19 10:00 02/04/19 10:48 Protonix Iv IVPUSH 40 mg DAILY [facility] Administration Rivaroxaban 15 mg 01/27/19 18:00 02/03/19 17:06 Xarelto PO Not Given DAILY@1800 [facility] Sertraline HCl 50 mg 01/27/19 10:00 02/04/19 10:51 Zoloft - PO Not Given DAILY [facility] Silver Sulfadiazine 1 applic 01/27/19 10:00 02/04/19 10:51 Silvadene - TP 1 applic BID [facility] Administration Impression 1. ESRD 2. change in mental status 3. resp failure requiring intubation 4. chf 5. dvt 6. anemia 7. a-fib 8. hypothyroid 9. pleural effusion Plan - pt tolerated HD - will arrange for another HD session tomorrow to UF fluid - monitor lytes - monitor bp - monitor pulse ox - HD right thigh cath, 3 k bath, 3 15 time, 400 abf
[2019-02-04] MEDS ORDERED: PT OWN MED DRAWER 7, Y5N ONE (19:04)
[2019-02-04] MEDS: RIVAROXABAN 15 MG TABLET PO SCH (19:18)
[2019-02-04] MEDS ORDERED: MELATONIN 5 MG TABLETS PO ONE (22:59)
[2019-02-05] MEDS: INSULIN SLIDING SCALE (NOVOLOG) 1 VIAL SQ SCH ×4 (06:10→23:04)
[2019-02-05] MEDS: LEVOTHYROXINE NA 50 MCG TABLET (FP) PO SCH ×2 (06:21→11:04)
[2019-02-05 07:03] LABS: HEMATOCRIT 26.1 % (32.4-45.2); HEMOGLOBIN 8.3 GM/dL (10.7-15.3); MCH 30.5 pg (25.7-33.7); MCHC 31.6 g/dl (32.0-36.0); MEAN CELL VOLUME 96.3 fl (80-96); MEAN PLT VOLUME 8.2 fl (7.5-11.1); PLATELET COUNT 280 K/MM3 (134-434); RBC 2.71 M/mm3 (3.60-5.2); RDW 18.7 % (11.6-15.6); WHITE BLOOD COUNT 4.6 K/mm3 (4.0-10.0)
[2019-02-05 07:20] LABS: BLOOD UREA NITROGEN 23.9 mg/dL (7-18); CALCIUM 8.8 mg/dL (8.5-10.1); CREATININE 2.4 mg/dL (0.55-1.3); PHOSPHOROUS 3.5 mg/dL (2.5-4.9); POTASSIUM 3.7 mmol/L (3.5-5.1)
--- NOTE | 2019-02-05 10:23 | PN ---
Progress Note, Physician Chief Complaint: Acute Respiratory Failure ESRD Hypotension NSTEMI History of Present Illness: Previous notes and events reviewed awake and alert, confused NAD denies chest pain or SOB BP maintaining on Levophed - Current Medication List Current Medications: Active Medications Acetaminophen (Ofirmev Injection -) 1,000 mg IVPB Q6H PRN PRN Reason: PAIN OR FEVER Last Admin: 02/03/19 21:55 Dose: 1,000 mg Albumin Human (Albumin Human 25%) 12.5 gm IVPB Q30M [facility] Albuterol Sulfate (Ventolin 0.083% Nebulizer Soln -) 1 amp NEB Q6H PRN PRN Reason: SHORT OF BREATH/WHEEZING Amino Acids (Prosource No Carb Liquid Pkt) 30 ml PO BID@0800,1730 [facility] Last Admin: 02/04/19 19:19 Dose: 30 ml Collagenase (Santyl -) 1 applic TP DAILY [facility]; Protocol Last Admin: 02/04/19 10:50 Dose: 1 applic Norepinephrine Bitartrate 8, (000 mcg/ Dextrose) 500 mls @ 18.75 mls/hr IV TITR [facility]; Protocol Last Admin: 02/04/19 12:01 Dose: 4 mcg/min, 15 mls/hr Sodium Chloride (Normal Saline -) 250 mls @ 3,000 mls/hr IV PRN PRN PRN Reason: Hypotension during Dialysis Stop: 02/05/19 15:30 Insulin Aspart (Novolog Vial Sliding Scale -) 1 vial SQ ACHS [facility]; Protocol Last Admin: 02/05/19 06:10 Dose: Not Given Levothyroxine Sodium (Synthroid -) 50 mcg PO DAILY@0700 [facility] Last Admin: 02/05/19 06:21 Dose: Not Given Lidocaine/Prilocaine (Emla -) 1 applic TP QID PRN PRN Reason: HEMORRHOIDS Midodrine (Proamatine -) 10 mg PO TID-MID [facility] Last Admin: 02/04/19 19:19 Dose: 10 mg Multivit/Ca Carb/B Cmplx/FA/Prenat (Nephro-Evert -) 1 tablet PO DAILY [facility] Last Admin: 02/04/19 10:50 Dose: Not Given Nystatin (Mycostatin Ointment -) 1 applic TP BID [facility] Last Admin: 02/04/19 21:54 Dose: 1 applic Ondansetron HCl (Zofran -) 4 mg PO Q6H PRN PRN Reason: NAUSEA AND/OR VOMITING Pantoprazole Sodium (Protonix Iv) 40 mg IVPUSH DAILY [facility] Last Admin: 02/04/19 10:48 Dose: 40 mg Rivaroxaban (Xarelto) 15 mg PO DAILY@1800 [facility] Last Admin: 02/04/19 19:18 Dose: 15 mg Sertraline HCl (Zoloft -) 50 mg PO DAILY [facility] Last Admin: 02/04/19 10:51 Dose: Not Given Silver Sulfadiazine (Silvadene -) 1 applic TP BID [facility] Last Admin: 02/04/19 21:53 Dose: 1 applic - Objective Vital Signs: Vital Signs Temperature 97.9 F 02/05/19 06:00 Pulse Rate 92 H 02/05/19 06:00 Respiratory Rate 20 02/05/19 06:00 Blood Pressure 108/55 L 02/05/19 06:00 O2 Sat by Pulse Oximetry (%) 100 02/04/19 21:00 Constitutional: Yes: No Distress, Calm, Obese Eyes: Yes: Conjunctiva Clear HENT: Yes: Atraumatic Cardiovascular: Yes: Regular Rate and Rhythm Respiratory: Yes: Regular, Diminished Musculoskeletal: Yes: Muscle Weakness Extremities: Yes: WNL Edema: Yes (RUE) Neurological: Yes: Alert, Confusion, Weakness Psychiatric: Yes: Alert, Oriented (to person only) Labs: CBC, BMP 02/05/19 05:30 02/05/19 05:30 INR, PTT INR 1.76 (0.83-1.09) H 01/27/19 05:45 Microbiology 01/29/19 12:00 Blood - Peripheral Venous Blood Culture - Final NO GROWTH AFTER 5 DAYS INCUBATION 01/29/19 12:00 Blood - Peripheral Venous Blood Culture - Final NO GROWTH AFTER 5 DAYS INCUBATION 01/26/19 23:05 Blood - Peripheral Venous Blood Culture - Final NO GROWTH AFTER 5 DAYS INCUBATION 01/26/19 23:00 Blood - Peripheral Venous Blood Culture - Final NO GROWTH AFTER 5 DAYS INCUBATION - ....Imaging Chest X-ray: Report Reviewed Problem List - Problems (1) Acute respiratory failure Assessment/Plan: -Pulm on board -bronchodilators -repeat CXR shows chin artifact with bibasilar pulmonary and pleural changes left greater than right -keep SpO2 >90% -O2 via VentiMask Code(s): J96.00 - ACUTE RESPIRATORY FAILURE, UNSP W HYPOXIA OR HYPERCAPNIA Qualifiers: Respiratory failure complication: hypoxia Qualified Code(s): J96.01 - Acute respiratory failure with hypoxia (2) ESRD on hemodialysis Assessment/Plan: -Renal on board -continue with dialysis on scheduled days -monitor renal function -BUN/Cr 23.9/2.4 Code(s): N18.6 - END STAGE RENAL DISEASE; Z99.2 - DEPENDENCE ON RENAL DIALYSIS (3) Elevated troponin Assessment/Plan: -tele monitoring -NSTEMI -Cardiology on board Code(s): R74.8 - ABNORMAL LEVELS OF OTHER SERUM ENZYMES (4) Hypotension Assessment/Plan: -Levophed drip -Midodrine Code(s): I95.9 - HYPOTENSION, UNSPECIFIED Qualifiers: Hypotension type: unspecified hypotension type Qualified Code(s): I95.9 - Hypotension, unspecified (5) Acute exacerbation of congestive heart failure Assessment/Plan: -tele monitoring -Cardiology on board -1L fluid restriction -daily weights Code(s): I50.9 - HEART FAILURE, UNSPECIFIED (6) Afib Assessment/Plan: -tele monitoring -Xarelto Code(s): I48.91 - UNSPECIFIED ATRIAL FIBRILLATION (7) Functional quadriplegia Assessment/Plan: -PT -fall precaution Code(s): R53.2 - FUNCTIONAL QUADRIPLEGIA (8) H/O deep venous thrombosis Assessment/Plan: -Xarelto Code(s): Z86.718 - PERSONAL HISTORY OF OTHER VENOUS THROMBOSIS AND EMBOLISM (9) Hypothyroid Assessment/Plan: -Levothyroxine Code(s): E03.9 - HYPOTHYROIDISM, UNSPECIFIED Assessment/Plan see problem list
[2019-02-05] MEDS ORDERED: PT OWN MED DRAWER 7, Y5N ONE (10:54)
[2019-02-05] MEDS: MIDODRINE HCL 5 MG TABLET PO SCH ×2 (11:03→16:51)
[2019-02-05] MEDS: VITAMIN B COMP W-C 1 EA TABLET PO SCH (11:03)
[2019-02-05] MEDS: PANTOPRAZOLE SODIUM 40 MG VIAL IVPUSH SCH (11:05)
[2019-02-05] MEDS: AMINO ACIDS/PROTEIN HYDROLYS 30 ML LIQUID.PKT PO SCH ×2 (11:07→16:52)
[2019-02-05] MEDS: SERTRALINE HCL 50 MG TABLET (FP) PO SCH (11:07)
[2019-02-05] MEDS: NYSTATIN 100000 UNIT/GM TOPICAL OINTMENT 15 GM TUBE TP SCH ×2 (11:07→23:16)
--- NOTE | 2019-02-05 11:10 | PN ---
Progress Note (short form) - Note Progress Note: s: no chest pain, palps, dizziness, dyspnea. remains on levophed Current Medications Acetaminophen (Ofirmev Injection -) 1,000 mg IVPB Q6H PRN PRN Reason: PAIN OR FEVER Last Admin: 02/03/19 21:55 Dose: 1,000 mg Albumin Human (Albumin Human 25%) 12.5 gm IVPB Q30M [facility] Albuterol Sulfate (Ventolin 0.083% Nebulizer Soln -) 1 amp NEB Q6H PRN PRN Reason: SHORT OF BREATH/WHEEZING Amino Acids (Prosource No Carb Liquid Pkt) 30 ml PO BID@0800,1730 [facility] Last Admin: 02/05/19 11:07 Dose: 30 ml Collagenase (Santyl -) 1 applic TP DAILY [facility]; Protocol Last Admin: 02/04/19 10:50 Dose: 1 applic Norepinephrine Bitartrate 8, (000 mcg/ Dextrose) 500 mls @ 18.75 mls/hr IV TITR [facility]; Protocol Last Admin: 02/04/19 12:01 Dose: 4 mcg/min, 15 mls/hr Sodium Chloride (Normal Saline -) 250 mls @ 3,000 mls/hr IV PRN PRN PRN Reason: Hypotension during Dialysis Stop: 02/05/19 15:30 Insulin Aspart (Novolog Vial Sliding Scale -) 1 vial SQ ACHS [facility]; Protocol Last Admin: 02/05/19 06:10 Dose: Not Given Levothyroxine Sodium (Synthroid -) 50 mcg PO DAILY@0700 [facility] Last Admin: 02/05/19 11:04 Dose: 50 mcg Lidocaine/Prilocaine (Emla -) 1 applic TP QID PRN PRN Reason: HEMORRHOIDS Midodrine (Proamatine -) 10 mg PO TID-MID [facility] Last Admin: 02/05/19 11:03 Dose: 10 mg Multivit/Ca Carb/B Cmplx/FA/Prenat (Nephro-Evert -) 1 tablet PO DAILY [facility] Last Admin: 02/05/19 11:03 Dose: 1 tablet Nystatin (Mycostatin Ointment -) 1 applic TP BID [facility] Last Admin: 02/05/19 11:07 Dose: 1 applic Ondansetron HCl (Zofran -) 4 mg PO Q6H PRN PRN Reason: NAUSEA AND/OR VOMITING Pantoprazole Sodium (Protonix Iv) 40 mg IVPUSH DAILY [facility] Last Admin: 02/05/19 11:05 Dose: 40 mg Rivaroxaban (Xarelto) 15 mg PO DAILY@1800 [facility] Last Admin: 02/04/19 19:18 Dose: 15 mg Sertraline HCl (Zoloft -) 50 mg PO DAILY [facility] Last Admin: 02/05/19 11:07 Dose: 50 mg Silver Sulfadiazine (Silvadene -) 1 applic TP BID [facility] Last Admin: 02/04/19 21:53 Dose: 1 applic Vital Signs Period Temp Pulse Resp BP Sys/Jhaveri Pulse Ox Last 24 Hr 97.9 F-98.4 F 85-92 18-24 90-112/51-79 100 Constitutional: Yes: No Distress, Calm, Obese Cardiovascular: Yes: Pulse Irregular, S1, S2. No: JVD (prohibitive tds phys exam), Gallop, Murmur Respiratory: Yes: Regular, CTA Bilaterally nl eff. No: Accessory Muscle Use Extremities: No: Cold Edema: No Neurological: awake, confused Psychiatric: No: Agitated no jaundice, diaphoresis Assessment/Plan Echo 12/01: nl LV function, RV mod to severely dilated, RV function mod to severely reduced, mod dilated LA/RA, RVSP 40-50 mmHg, mod TR Echo 01/2019 - LV function slightly worsened, 45-50%, LA mod dilated, RV mod to severely dilated, tr AR, RV function mod to severely reduced, mild MR, mild to mod TR, RA mod to severely dilated, mobile echodensity in pleural space tele: sr cxr: clear lungs est cct 35 mins IMP: -Acute on chronic hypoxic/hypercapneic respiratory failure at HD, with bradycardia (40s-50s) -possible RLL PNA, sepsis -NSTEMI (troponin to 2): most likely Type II secondary to acute strain from CHF/ pulm HTN and acute resp failure, vs sec to hypotension at time of arrest. -septic shock on Levophed, doubt cardiogenic shock here -HFpEF, pulmonary HTN, RV dysfunction -ESRD on HD -h/o DVT /PE on AC REC: -now extubated -remains on Pressors to maintain MAP 60mmHg--tolerating Levophed (weaning as tolerated) without tachycardia -repeat echo with LV function slightly worsened compared to prior, RV function is mod to severely reduced (stable) -repeat echo also shows echodensity in pleural space - consider chest imaging per critical care -HD as per renal for volume management -Cont xarelto (anemia, PLTs stable) -hold AVN blockers (hypotension), HRs ok -cont midodrine for bp support at HD -will defer ischemia evaluation as 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 she is at prohibitive risk for invasive tx strategy given extremely poor functional status with severe comorbidities at present. hypotension (requires midodrine for bp support at HD at baseline) will not tolerate signif b-blockade, though will try to give low dose if can tolerate, once she is off pressors. -no ASA for now given pt on Xarelto with mild anemia/thrombocytopenia (and likely dysfunctional PLTs in HD pt), and hi risk for bleeding at present -if she recovers from the acute illness will potentially reconsider above approach
--- NOTE | 2019-02-05 11:56 | PN ---
Progress Note (short form) - Note Progress Note: PULMONARY/CRITICAL CARE PROGRESS NOTE: SUBJECTIVE: Pt seen and examined in the ICU. Remains on NE 4mcg/min Receiving HD again today OBJECTIVE: Current Medications Acetaminophen (Ofirmev Injection -) 1,000 mg IVPB Q6H PRN PRN Reason: PAIN OR FEVER Last Admin: 02/03/19 21:55 Dose: 1,000 mg Albumin Human (Albumin Human 25%) 12.5 gm IVPB Q30M [facility] Albuterol Sulfate (Ventolin 0.083% Nebulizer Soln -) 1 amp NEB Q6H PRN PRN Reason: SHORT OF BREATH/WHEEZING Amino Acids (Prosource No Carb Liquid Pkt) 30 ml PO BID@0800,1730 [facility] Last Admin: 02/05/19 11:07 Dose: 30 ml Collagenase (Santyl -) 1 applic TP DAILY [facility]; Protocol Last Admin: 02/04/19 10:50 Dose: 1 applic Norepinephrine Bitartrate 8, (000 mcg/ Dextrose) 500 mls @ 18.75 mls/hr IV TITR [facility]; Protocol Last Admin: 02/04/19 12:01 Dose: 4 mcg/min, 15 mls/hr Sodium Chloride (Normal Saline -) 250 mls @ 3,000 mls/hr IV PRN PRN PRN Reason: Hypotension during Dialysis Stop: 02/05/19 15:30 Insulin Aspart (Novolog Vial Sliding Scale -) 1 vial SQ ACHS [facility]; Protocol Last Admin: 02/05/19 06:10 Dose: Not Given Levothyroxine Sodium (Synthroid -) 50 mcg PO DAILY@0700 [facility] Last Admin: 02/05/19 11:04 Dose: 50 mcg Lidocaine/Prilocaine (Emla -) 1 applic TP QID PRN PRN Reason: HEMORRHOIDS Midodrine (Proamatine -) 10 mg PO TID-MID [facility] Last Admin: 02/05/19 11:03 Dose: 10 mg Multivit/Ca Carb/B Cmplx/FA/Prenat (Nephro-Evert -) 1 tablet PO DAILY [facility] Last Admin: 02/05/19 11:03 Dose: 1 tablet Nystatin (Mycostatin Ointment -) 1 applic TP BID [facility] Last Admin: 02/05/19 11:07 Dose: 1 applic Ondansetron HCl (Zofran -) 4 mg PO Q6H PRN PRN Reason: NAUSEA AND/OR VOMITING Pantoprazole Sodium (Protonix Iv) 40 mg IVPUSH DAILY [facility] Last Admin: 02/05/19 11:05 Dose: 40 mg Rivaroxaban (Xarelto) 15 mg PO DAILY@1800 [facility] Last Admin: 02/04/19 19:18 Dose: 15 mg Sertraline HCl (Zoloft -) 50 mg PO DAILY [facility] Last Admin: 02/05/19 11:07 Dose: 50 mg Silver Sulfadiazine (Silvadene -) 1 applic TP BID [facility] Last Admin: 02/04/19 21:53 Dose: 1 applic Vital Signs Temp 97.9 F 02/05/19 06:00 Pulse 88 02/05/19 08:00 Resp 19 02/05/19 08:00 BP 112/79 02/05/19 08:00 Pulse Ox 100 02/04/19 21:00 Intake & Output 02/04/19 02/05/19 02/05/19 18:59 06:59 18:59 Intake Total 350 165 Output Total 3400 Balance -3050 165 Weight 82.282 kg Intake: IV 300 165 Levo @4 165 Normal Saline - 250 ml @ 300 3000 mls/hr IV PRN PRN Rx #:[id number] Oral 0 Albumin 50 Output: Urine 0 Void 0 Fluid Removed, 3400 Hemodialysis Other: Voiding Method Diaper Diaper Bowel Movement No Yes # Bowel Movements 1 Weight Measurement Method Built in [facility] Gen: NAD at rest Heart: RRR Lung: decreased breath sounds Abd: soft, nontender Ext: less edema CBC, BMP 02/05/19 05:30 02/05/19 05:30 ASSESSMENT AND PLAN: Acute on Chronic Hypoxic and Hypercapneic Respiratory Failure improving r/o Pneumonia Shock likely Septic Volume Overload ESRD on HD +Troponins likely Demand Ischemia Pulmonary HTN h/o PE/DVT - completed antibiotics and remains on pressors so would consider an untreated or resistant source of infection - taper pressors to maintain MAP >55 - continue midodrine - HD per renal with ultrafiltration - taper FiO2 to keep SpO2 >90%, transition to nasal cannula - continue anticoagulation - swallow eval - DVT/GI prophylaxis - continue ICU monitoring Critical Care Time 35min [facility] 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
[2019-02-05] MEDS: SILVER SULFADIAZINE 1% TOP CREAM 400 GM JAR TP SCH ×2 (11:57→23:16)
--- NOTE | 2019-02-05 12:20 | PN ---
Progress Note, Physician History of Present Illness: Pt seen and examined at bedside. She appears comfortable. She remains in the ICU. She remain extubated. - Current Medication List Current Medications: Active Medications Acetaminophen (Ofirmev Injection -) 1,000 mg IVPB Q6H PRN PRN Reason: PAIN OR FEVER Last Admin: 02/03/19 21:55 Dose: 1,000 mg Albumin Human (Albumin Human 25%) 12.5 gm IVPB Q30M [facility] Albuterol Sulfate (Ventolin 0.083% Nebulizer Soln -) 1 amp NEB Q6H PRN PRN Reason: SHORT OF BREATH/WHEEZING Amino Acids (Prosource No Carb Liquid Pkt) 30 ml PO BID@0800,1730 [facility] Last Admin: 02/05/19 11:07 Dose: 30 ml Collagenase (Santyl -) 1 applic TP DAILY [facility]; Protocol Last Admin: 02/04/19 10:50 Dose: 1 applic Norepinephrine Bitartrate 8, (000 mcg/ Dextrose) 500 mls @ 18.75 mls/hr IV TITR [facility]; Protocol Last Admin: 02/04/19 12:01 Dose: 4 mcg/min, 15 mls/hr Sodium Chloride (Normal Saline -) 250 mls @ 3,000 mls/hr IV PRN PRN PRN Reason: Hypotension during Dialysis Stop: 02/05/19 15:30 Insulin Aspart (Novolog Vial Sliding Scale -) 1 vial SQ ACHS [facility]; Protocol Last Admin: 02/05/19 06:10 Dose: Not Given Levothyroxine Sodium (Synthroid -) 50 mcg PO DAILY@0700 [facility] Last Admin: 02/05/19 11:04 Dose: 50 mcg Lidocaine/Prilocaine (Emla -) 1 applic TP QID PRN PRN Reason: HEMORRHOIDS Midodrine (Proamatine -) 10 mg PO TID-MID [facility] Last Admin: 02/05/19 11:03 Dose: 10 mg Multivit/Ca Carb/B Cmplx/FA/Prenat (Nephro-Evert -) 1 tablet PO DAILY [facility] Last Admin: 02/05/19 11:03 Dose: 1 tablet Nystatin (Mycostatin Ointment -) 1 applic TP BID [facility] Last Admin: 02/05/19 11:07 Dose: 1 applic Ondansetron HCl (Zofran -) 4 mg PO Q6H PRN PRN Reason: NAUSEA AND/OR VOMITING Pantoprazole Sodium (Protonix Iv) 40 mg IVPUSH DAILY [facility] Last Admin: 02/05/19 11:05 Dose: 40 mg Rivaroxaban (Xarelto) 15 mg PO DAILY@1800 [facility] Last Admin: 02/04/19 19:18 Dose: 15 mg Sertraline HCl (Zoloft -) 50 mg PO DAILY [facility] Last Admin: 02/05/19 11:07 Dose: 50 mg Silver Sulfadiazine (Silvadene -) 1 applic TP BID [facility] Last Admin: 02/04/19 21:53 Dose: 1 applic - Objective Vital Signs: Vital Signs Temperature 97.9 F 02/05/19 06:00 Pulse Rate 88 02/05/19 08:00 Respiratory Rate 19 02/05/19 08:00 Blood Pressure 112/79 02/05/19 08:00 O2 Sat by Pulse Oximetry (%) 100 02/04/19 21:00 Constitutional: Yes: Calm Eyes: Yes: Conjunctiva Clear HENT: Yes: Atraumatic Neck: Yes: Supple Cardiovascular: Yes: S1, S2 Respiratory: Yes: On Venti-Mask Gastrointestinal: Yes: Soft, Abdomen, Obese Genitourinary: Yes: Incontinence Musculoskeletal: Yes: Muscle Weakness Edema: Yes Edema: LUE: 1+, RUE: 1+, LLE: 1+, RLE: 1+ Integumentary: Yes: Bruising Neurological: Yes: Confusion Labs: CBC, BMP 02/05/19 05:30 02/05/19 05:30 INR, PTT INR 1.76 (0.83-1.09) H 01/27/19 05:45 Problem List - Problems (1) Acute respiratory failure Code(s): J96.00 - ACUTE RESPIRATORY FAILURE, UNSP W HYPOXIA OR HYPERCAPNIA Qualifiers: Respiratory failure complication: hypoxia Qualified Code(s): J96.01 - Acute respiratory failure with hypoxia (2) ESRD on hemodialysis Code(s): N18.6 - END STAGE RENAL DISEASE; Z99.2 - DEPENDENCE ON RENAL DIALYSIS Assessment/Plan Current Medications Generic Name Dose Route Start Last Admin Trade Name Freq PRN Reason Stop Dose Admin Acetaminophen 1,000 mg 02/03/19 19:55 02/03/19 21:55 Ofirmev Injection - IVPB 1,000 mg Q6H PRN Administration PAIN OR FEVER Albumin Human 12.5 gm 02/05/19 15:30 Albumin Human 25% IVPB Q30M [facility] Albuterol Sulfate 1 amp 01/27/19 01:54 Ventolin 0.083% Nebulizer Soln - NEB Q6H PRN SHORT OF BREATH/WHEEZING Amino Acids 30 ml 01/31/19 17:30 02/05/19 11:07 Prosource No Carb Liquid Pkt PO 30 ml BID@0800,1730 [facility] Administration Collagenase 1 applic 02/02/19 10:15 02/04/19 10:50 Santyl - TP 1 applic DAILY [facility] Administration Protocol Norepinephrine Bitartrate 8, 500 mls @ 18.75 mls/hr 01/28/19 11:15 02/04/19 12:01 000 mcg/ Dextrose IV 4 mcg/min TITR [facility] 15 mls/hr Administration Protocol 5 MCG/MIN Sodium Chloride 250 mls @ 3,000 mls/hr 02/04/19 15:30 Normal Saline - IV 02/05/19 15:30 PRN PRN Hypotension during Dialysis Insulin Aspart 1 vial 02/05/19 07:00 02/05/19 06:10 Novolog Vial Sliding Scale - SQ Not Given ACHS [facility] Protocol Levothyroxine Sodium 50 mcg 01/27/19 07:00 02/05/19 11:04 Synthroid - PO 50 mcg DAILY@0700 [facility] Administration Lidocaine/Prilocaine 1 applic 01/27/19 01:55 Emla - TP QID PRN HEMORRHOIDS Midodrine 10 mg 01/27/19 14:30 02/05/19 11:03 Proamatine - PO 10 mg TID-MID [facility] Administration Multivit/Ca Carb/B Cmplx/FA/Prenat 1 tablet 01/27/19 10:00 02/05/19 11:03 Nephro-Evert - PO 1 tablet DAILY [facility] Administration Nystatin 1 applic 01/27/19 22:00 02/05/19 11:07 Mycostatin Ointment - TP 1 applic BID [facility] Administration Ondansetron HCl 4 mg 01/27/19 01:57 Zofran - PO Q6H PRN NAUSEA AND/OR VOMITING Pantoprazole Sodium 40 mg 01/31/19 10:00 02/05/19 11:05 Protonix Iv IVPUSH 40 mg DAILY [facility] Administration Rivaroxaban 15 mg 01/27/19 18:00 02/04/19 19:18 Xarelto PO 15 mg DAILY@1800 [facility] Administration Sertraline HCl 50 mg 01/27/19 10:00 02/05/19 11:07 Zoloft - PO 50 mg DAILY [facility] Administration Silver Sulfadiazine 1 applic 01/27/19 10:00 02/04/19 21:53 Silvadene - TP 1 applic BID [facility] Administration Impression 1. ESRD 2. change in mental status 3. resp failure requiring intubation 4. chf 5. dvt 6. anemia 7. a-fib 8. hypothyroid 9. pleural effusion Plan - HD today for UF - monitor volume status - renal diet - monitor lytes - monitor bp - HD right thigh cath, 3 k bath, 3 15 time, 400 abf
[2019-02-05] MEDS ORDERED: SODIUM CHLORIDE 250 ML IV PRN (13:13)
[2019-02-05] MEDS: ALBUMIN HUMAN 25% 12.5 GM/50 ML VIAL IVPB SCH ×3 (14:38→14:51)
[2019-02-05] MEDS: COLLAGENASE CLOSTRIDIUM HIST. 30 GRAMS TUBE TP SCH (16:26)
[2019-02-05] MEDS: NOREPINEPHRINE BITARTRATE 8,000 MCG in DEXTROSE 5%-WATER - 492 ML IV SCH ×2 (16:52→16:58)
[2019-02-06] MEDS: ACETAMINOPHEN 325 MG TABLET (FP) PO PRN (06:00)
[2019-02-06] MEDS: LEVOTHYROXINE NA 50 MCG TABLET (FP) PO SCH (06:01)
[2019-02-06 06:09] LABS: HEMOGLOBIN 9.2 GM/dL (10.7-15.3); MCH 30.1 pg (25.7-33.7); MCHC 31.6 g/dl (32.0-36.0); MEAN CELL VOLUME 95.5 fl (80-96); MEAN PLT VOLUME 8.3 fl (7.5-11.1); PLATELET COUNT 289 K/MM3 (134-434); RBC 3.04 M/mm3 (3.60-5.2); RDW 18.6 % (11.6-15.6); WHITE BLOOD COUNT 4.4 K/mm3 (4.0-10.0)
--- NOTE | 2019-02-06 06:10 | PN ---
Progress Note (short form) - Note Progress Note: PULMONARY/CRITICAL CARE PROGRESS NOTE: SUBJECTIVE: Pt seen and examined in the ICU. Received HD yesterday with 3400 UF Remains on NE 3mcg/min OBJECTIVE: Current Medications Acetaminophen (Tylenol -) 650 mg PO Q4H PRN PRN Reason: PAIN LEVEL 1 - 3 Last Admin: 02/06/19 06:00 Dose: 650 mg Albuterol Sulfate (Ventolin 0.083% Nebulizer Soln -) 1 amp NEB Q6H PRN PRN Reason: SHORT OF BREATH/WHEEZING Amino Acids (Prosource No Carb Liquid Pkt) 30 ml PO BID@0800,1730 [facility] Last Admin: 02/05/19 16:52 Dose: 30 ml Collagenase (Santyl -) 1 applic TP DAILY [facility]; Protocol Last Admin: 02/05/19 16:26 Dose: Not Given Norepinephrine Bitartrate 8, (000 mcg/ Dextrose) 500 mls @ 18.75 mls/hr IV TITR [facility]; Protocol Last Admin: 02/05/19 16:58 Dose: 3 mcg/min, 11.25 mls/hr Insulin Aspart (Novolog Vial Sliding Scale -) 1 vial SQ ACHS [facility]; Protocol Last Admin: 02/05/19 23:04 Dose: Not Given Levothyroxine Sodium (Synthroid -) 50 mcg PO DAILY@0700 [facility] Last Admin: 02/06/19 06:01 Dose: 50 mcg Lidocaine/Prilocaine (Emla -) 1 applic TP QID PRN PRN Reason: HEMORRHOIDS Midodrine (Proamatine -) 10 mg PO TID-MID [facility] Last Admin: 02/05/19 16:51 Dose: 10 mg Multivit/Ca Carb/B Cmplx/FA/Prenat (Nephro-Evert -) 1 tablet PO DAILY [facility] Last Admin: 02/05/19 11:03 Dose: 1 tablet Nystatin (Mycostatin Ointment -) 1 applic TP BID [facility] Last Admin: 02/05/19 23:16 Dose: 1 applic Ondansetron HCl (Zofran -) 4 mg PO Q6H PRN PRN Reason: NAUSEA AND/OR VOMITING Pantoprazole Sodium (Protonix Iv) 40 mg IVPUSH DAILY [facility] Last Admin: 02/05/19 11:05 Dose: 40 mg Rivaroxaban (Xarelto) 15 mg PO DAILY@1800 [facility] Last Admin: 02/04/19 19:18 Dose: 15 mg Sertraline HCl (Zoloft -) 50 mg PO DAILY [facility] Last Admin: 02/05/19 11:07 Dose: 50 mg Silver Sulfadiazine (Silvadene -) 1 applic TP BID [facility] Last Admin: 02/05/19 23:16 Dose: 1 applic Vital Signs Temp 98.1 F 02/05/19 16:00 Pulse 80 02/06/19 00:00 Resp 17 02/06/19 00:00 BP 98/59 L 02/06/19 00:00 Pulse Ox 100 02/05/19 21:00 Intake & Output 02/05/19 02/05/19 02/06/19 06:59 18:59 06:59 Intake Total 165 500 45 Output Total 3400 Balance 165 -2900 45 Weight 82.282 kg Intake: IV 165 45 Levo @4 165 Levophed - 8,000 Mcg In 45 D5w - 492 ml @ 5 MCG/MIN 18.75 mls/hr IV TITR [facility] Rx#:[id number] IVPB 500 Output: Fluid Removed, 3400 Hemodialysis Other: Voiding Method Diaper Diaper Bowel Movement Yes No # Bowel Movements 1 Weight Measurement Method Built in [facility] Gen: NAD at rest Heart: RRR Lung: decreased breath sounds Abd: soft, nontender Ext: less edema CBC, BMP 02/05/19 05:30 02/05/19 05:30 ASSESSMENT AND PLAN: Acute on Chronic Hypoxic and Hypercapneic Respiratory Failure improving r/o Pneumonia Shock likely Septic Volume Overload ESRD on HD +Troponins likely Demand Ischemia Pulmonary HTN h/o PE/DVT - completed antibiotics and remains on pressors so would consider an untreated or resistant source of infection - taper pressors to maintain MAP >55 - continue midodrine - HD per renal - taper FiO2 to keep SpO2 >90%, transition to nasal cannula - continue anticoagulation - swallow eval - DVT/GI prophylaxis - continue ICU monitoring Critical Care Time 35min [facility] Pulm/Critical Care ENT PHYSICIAN
[2019-02-06 06:45] LABS: ALBUMIN 2.4 g/dl (3.4-5.0); BILIRUBIN,TOTAL 0.4 mg/dL (0.2-1); BLOOD UREA NITROGEN 28.2 mg/dL (7-18); CALCIUM 8.7 mg/dL (8.5-10.1); CREATININE 2.7 mg/dL (0.55-1.3); POTASSIUM 3.7 mmol/L (3.5-5.1); TOT PROT 6.2 g/dl (6.4-8.2)
[2019-02-06] MEDS: INSULIN SLIDING SCALE (NOVOLOG) 1 VIAL SQ SCH ×4 (07:31→21:05)
[2019-02-06] MEDS ORDERED: PT OWN MED DRAWER 7, Y5N ONE (08:25)
--- NOTE | 2019-02-06 09:47 | PN ---
Progress Note, Physician Chief Complaint: Acute Respiratory Failure ESRD Hypotension NSTEMI History of Present Illness: Previous notes and events reviewed more lethargic today but awakens and verbally responsive to verbal and tactile stimuli NAD denies chest pain or SOB on VM 40% BP maintaining on Levophed RUE edema and erythema noted to R hand-Vascular US ordered STAT - Current Medication List Current Medications: Active Medications Acetaminophen (Tylenol -) 650 mg PO Q4H PRN PRN Reason: PAIN LEVEL 1 - 3 Last Admin: 02/06/19 06:00 Dose: 650 mg Albuterol Sulfate (Ventolin 0.083% Nebulizer Soln -) 1 amp NEB Q6H PRN PRN Reason: SHORT OF BREATH/WHEEZING Amino Acids (Prosource No Carb Liquid Pkt) 30 ml PO BID@0800,1730 [facility] Last Admin: 02/05/19 16:52 Dose: 30 ml Collagenase (Santyl -) 1 applic TP DAILY [facility]; Protocol Last Admin: 02/05/19 16:26 Dose: Not Given Norepinephrine Bitartrate 8, (000 mcg/ Dextrose) 500 mls @ 18.75 mls/hr IV TITR [facility]; Protocol Last Admin: 02/05/19 16:58 Dose: 3 mcg/min, 11.25 mls/hr Insulin Aspart (Novolog Vial Sliding Scale -) 1 vial SQ ACHS [facility]; Protocol Last Admin: 02/06/19 07:31 Dose: Not Given Levothyroxine Sodium (Synthroid -) 50 mcg PO DAILY@0700 [facility] Last Admin: 02/06/19 06:01 Dose: 50 mcg Lidocaine/Prilocaine (Emla -) 1 applic TP QID PRN PRN Reason: HEMORRHOIDS Midodrine (Proamatine -) 10 mg PO TID-MID [facility] Last Admin: 02/05/19 16:51 Dose: 10 mg Multivit/Ca Carb/B Cmplx/FA/Prenat (Nephro-Evert -) 1 tablet PO DAILY [facility] Last Admin: 02/05/19 11:03 Dose: 1 tablet Nystatin (Mycostatin Ointment -) 1 applic TP BID [facility] Last Admin: 02/05/19 23:16 Dose: 1 applic Ondansetron HCl (Zofran -) 4 mg PO Q6H PRN PRN Reason: NAUSEA AND/OR VOMITING Pantoprazole Sodium (Protonix Iv) 40 mg IVPUSH DAILY [facility] Last Admin: 02/05/19 11:05 Dose: 40 mg Rivaroxaban (Xarelto) 15 mg PO DAILY@1800 [facility] Last Admin: 02/04/19 19:18 Dose: 15 mg Sertraline HCl (Zoloft -) 50 mg PO DAILY [facility] Last Admin: 02/05/19 11:07 Dose: 50 mg Silver Sulfadiazine (Silvadene -) 1 applic TP BID [facility] Last Admin: 02/05/19 23:16 Dose: 1 applic - Objective Vital Signs: Vital Signs Temperature 98.2 F 02/06/19 06:00 Pulse Rate 77 02/06/19 08:00 Respiratory Rate 18 02/06/19 08:00 Blood Pressure 93/49 L 02/06/19 08:00 O2 Sat by Pulse Oximetry (%) 100 02/05/19 21:00 Constitutional: Yes: No Distress, Calm Eyes: Yes: Conjunctiva Clear HENT: Yes: Atraumatic Cardiovascular: Yes: Regular Rate and Rhythm Respiratory: Yes: WNL, Regular, On Venti-Mask, Rhonchi Gastrointestinal: Yes: Normal Bowel Sounds, Soft Musculoskeletal: Yes: Muscle Weakness Extremities: Yes: Other (RUE edema and erythema to r hand) Edema: Yes (RUE) Neurological: Yes: Lethargy, Pre-Existing Deficit Psychiatric: Yes: Alert Labs: CBC, BMP 02/06/19 05:35 02/06/19 05:35 INR, PTT INR 1.76 (0.83-1.09) H 01/27/19 05:45 Microbiology 01/29/19 12:00 Blood - Peripheral Venous Blood Culture - Final NO GROWTH AFTER 5 DAYS INCUBATION 01/29/19 12:00 Blood - Peripheral Venous Blood Culture - Final NO GROWTH AFTER 5 DAYS INCUBATION 01/26/19 23:05 Blood - Peripheral Venous Blood Culture - Final NO GROWTH AFTER 5 DAYS INCUBATION 01/26/19 23:00 Blood - Peripheral Venous Blood Culture - Final NO GROWTH AFTER 5 DAYS INCUBATION Problem List - Problems (1) Acute respiratory failure Assessment/Plan: -Pulm on board -bronchodilators -repeat CXR shows chin artifact with bibasilar pulmonary and pleural changes left greater than right -keep SpO2 >90% -O2 via VentiMask 40% Code(s): J96.00 - ACUTE RESPIRATORY FAILURE, UNSP W HYPOXIA OR HYPERCAPNIA Qualifiers: Respiratory failure complication: hypoxia Qualified Code(s): J96.01 - Acute respiratory failure with hypoxia (2) ESRD on hemodialysis Assessment/Plan: -Renal on board -continue with dialysis on scheduled days -monitor renal function -BUN/Cr 28.2/2.7 Code(s): N18.6 - END STAGE RENAL DISEASE; Z99.2 - DEPENDENCE ON RENAL DIALYSIS (3) Elevated troponin Assessment/Plan: -tele monitoring -NSTEMI -Cardiology on board Code(s): R74.8 - ABNORMAL LEVELS OF OTHER SERUM ENZYMES (4) Hypotension Assessment/Plan: -Levophed drip -Midodrine Code(s): I95.9 - HYPOTENSION, UNSPECIFIED Qualifiers: Hypotension type: unspecified hypotension type Qualified Code(s): I95.9 - Hypotension, unspecified (5) Acute exacerbation of congestive heart failure Assessment/Plan: -tele monitoring -Cardiology on board -1L fluid restriction -daily weights Code(s): I50.9 - HEART FAILURE, UNSPECIFIED (6) Afib Assessment/Plan: -tele monitoring -Xarelto Code(s): I48.91 - UNSPECIFIED ATRIAL FIBRILLATION (7) Functional quadriplegia Assessment/Plan: -PT -fall precaution Code(s): R53.2 - FUNCTIONAL QUADRIPLEGIA (8) H/O deep venous thrombosis Assessment/Plan: -Xarelto Code(s): Z86.718 - PERSONAL HISTORY OF OTHER VENOUS THROMBOSIS AND EMBOLISM (9) Hypothyroid Assessment/Plan: -Levothyroxine Code(s): E03.9 - HYPOTHYROIDISM, UNSPECIFIED Assessment/Plan see problem list
[2019-02-06] MEDS: NYSTATIN 100000 UNIT/GM TOPICAL OINTMENT 15 GM TUBE TP SCH ×2 (10:37→21:09)
--- NOTE | 2019-02-06 10:54 | PN ---
Progress Note (short form) - Note Progress Note: s: feels tired. no chest pain, palps, dyspnea Current Medications Acetaminophen (Tylenol -) 650 mg PO Q4H PRN PRN Reason: PAIN LEVEL 1 - 3 Last Admin: 02/06/19 06:00 Dose: 650 mg Albuterol Sulfate (Ventolin 0.083% Nebulizer Soln -) 1 amp NEB Q6H PRN PRN Reason: SHORT OF BREATH/WHEEZING Amino Acids (Prosource No Carb Liquid Pkt) 30 ml PO BID@0800,1730 [facility] Last Admin: 02/05/19 16:52 Dose: 30 ml Collagenase (Santyl -) 1 applic TP DAILY [facility]; Protocol Last Admin: 02/05/19 16:26 Dose: Not Given Norepinephrine Bitartrate 8, (000 mcg/ Dextrose) 500 mls @ 18.75 mls/hr IV TITR [facility]; Protocol Last Admin: 02/05/19 16:58 Dose: 3 mcg/min, 11.25 mls/hr Insulin Aspart (Novolog Vial Sliding Scale -) 1 vial SQ ACHS [facility]; Protocol Last Admin: 02/06/19 07:31 Dose: Not Given Levothyroxine Sodium (Synthroid -) 50 mcg PO DAILY@0700 [facility] Last Admin: 02/06/19 06:01 Dose: 50 mcg Lidocaine/Prilocaine (Emla -) 1 applic TP QID PRN PRN Reason: HEMORRHOIDS Midodrine (Proamatine -) 10 mg PO TID-MID [facility] Last Admin: 02/05/19 16:51 Dose: 10 mg Multivit/Ca Carb/B Cmplx/FA/Prenat (Nephro-Evert -) 1 tablet PO DAILY [facility] Last Admin: 02/05/19 11:03 Dose: 1 tablet Nystatin (Mycostatin Ointment -) 1 applic TP BID [facility] Last Admin: 02/05/19 23:16 Dose: 1 applic Ondansetron HCl (Zofran -) 4 mg PO Q6H PRN PRN Reason: NAUSEA AND/OR VOMITING Pantoprazole Sodium (Protonix Iv) 40 mg IVPUSH DAILY [facility] Last Admin: 02/05/19 11:05 Dose: 40 mg Rivaroxaban (Xarelto) 15 mg PO DAILY@1800 [facility] Last Admin: 02/04/19 19:18 Dose: 15 mg Sertraline HCl (Zoloft -) 50 mg PO DAILY [facility] Last Admin: 02/05/19 11:07 Dose: 50 mg Silver Sulfadiazine (Silvadene -) 1 applic TP BID [facility] Last Admin: 02/05/19 23:16 Dose: 1 applic Vital Signs Period Temp Pulse Resp BP Sys/Jhaveri Pulse Ox Last 24 Hr 97.8 F-98.2 F 64-88 11-74 81-116/49-91 100-100 Constitutional: Yes: No Distress, Calm, Obese Cardiovascular: Yes: Pulse Irregular, S1, S2. No: JVD (prohibitive tds phys exam), Gallop, Murmur Respiratory: Yes: Regular, CTA Bilaterally nl eff. No: Accessory Muscle Use Extremities: No: Cold Edema: No Neurological: awake, confused Psychiatric: No: Agitated no jaundice, diaphoresis Assessment/Plan Echo 12/01: nl LV function, RV mod to severely dilated, RV function mod to severely reduced, mod dilated LA/RA, RVSP 40-50 mmHg, mod TR Echo 01/2019 - LV function slightly worsened, 45-50%, LA mod dilated, RV mod to severely dilated, tr AR, RV function mod to severely reduced, mild MR, mild to mod TR, RA mod to severely dilated, mobile echodensity in pleural space tele: sr cxr: clear lungs est cct 35 mins IMP: -Acute on chronic hypoxic/hypercapneic respiratory failure at HD, with bradycardia (40s-50s) -possible RLL PNA, sepsis -NSTEMI (troponin to 2): most likely Type II secondary to acute strain from CHF/ pulm HTN and acute resp failure, vs sec to hypotension at time of arrest. -septic shock on Levophed, doubt cardiogenic shock here -HFpEF, pulmonary HTN, RV dysfunction -ESRD on HD -h/o DVT /PE on AC REC: -now extubated -remains on Pressors to maintain MAP 60mmHg--tolerating Levophed (weaning as tolerated) without tachycardia -repeat echo with LV function slightly worsened compared to prior, RV function is mod to severely reduced (stable) -repeat echo also shows echodensity in pleural space - consider chest imaging per critical care -HD as per renal for volume management -Cont xarelto (anemia, PLTs stable) -hold AVN blockers (hypotension), HRs ok -cont midodrine for bp support at HD -will defer ischemia evaluation as this will not change management facilitator. she is at prohibitive risk for invasive tx strategy given extremely poor functional status with severe comorbidities at present. hypotension (requires midodrine for bp support at HD at baseline) will not tolerate signif b-blockade, though will try to give low dose if can tolerate, once she is off pressors. -no ASA for now given pt on Xarelto with mild anemia/thrombocytopenia (and likely dysfunctional PLTs in HD pt), and hi risk for bleeding at present -if she recovers from the acute illness will potentially reconsider above approach
[2019-02-06] MEDS: PANTOPRAZOLE SODIUM 40 MG VIAL IVPUSH SCH (11:16)
[2019-02-06] MEDS: SERTRALINE HCL 50 MG TABLET (FP) PO SCH (11:16)
[2019-02-06] MEDS: VITAMIN B COMP W-C 1 EA TABLET PO SCH (11:16)
[2019-02-06] MEDS: AMINO ACIDS/PROTEIN HYDROLYS 30 ML LIQUID.PKT PO SCH ×2 (11:17→18:41)
[2019-02-06] MEDS: MIDODRINE HCL 5 MG TABLET PO SCH ×3 (11:18→18:26)
[2019-02-06] MEDS: SILVER SULFADIAZINE 1% TOP CREAM 400 GM JAR TP SCH ×2 (11:18→21:07)
--- NOTE | 2019-02-06 13:10 | PN ---
Progress Note, Physician History of Present Illness: Pt seen and examined at bedside. She is awake and appears comfortable. - Current Medication List Current Medications: Active Medications Acetaminophen (Tylenol -) 650 mg PO Q4H PRN PRN Reason: PAIN LEVEL 1 - 3 Last Admin: 02/06/19 06:00 Dose: 650 mg Albuterol Sulfate (Ventolin 0.083% Nebulizer Soln -) 1 amp NEB Q6H PRN PRN Reason: SHORT OF BREATH/WHEEZING Amino Acids (Prosource No Carb Liquid Pkt) 30 ml PO BID@0800,1730 [facility] Last Admin: 02/06/19 11:17 Dose: 30 ml Collagenase (Santyl -) 1 applic TP DAILY [facility]; Protocol Last Admin: 02/05/19 16:26 Dose: Not Given Norepinephrine Bitartrate 8, (000 mcg/ Dextrose) 500 mls @ 18.75 mls/hr IV TITR [facility]; Protocol Last Admin: 02/05/19 16:58 Dose: 3 mcg/min, 11.25 mls/hr Insulin Aspart (Novolog Vial Sliding Scale -) 1 vial SQ ACHS [facility]; Protocol Last Admin: 02/06/19 07:31 Dose: Not Given Levothyroxine Sodium (Synthroid -) 50 mcg PO DAILY@0700 [facility] Last Admin: 02/06/19 06:01 Dose: 50 mcg Lidocaine/Prilocaine (Emla -) 1 applic TP QID PRN PRN Reason: HEMORRHOIDS Midodrine (Proamatine -) 10 mg PO TID-MID [facility] Last Admin: 02/06/19 11:18 Dose: 10 mg Multivit/Ca Carb/B Cmplx/FA/Prenat (Nephro-Evret -) 1 tablet PO DAILY [facility] Last Admin: 02/06/19 11:16 Dose: 1 tablet Nystatin (Mycostatin Ointment -) 1 applic TP BID [facility] Last Admin: 02/05/19 23:16 Dose: 1 applic Ondansetron HCl (Zofran -) 4 mg PO Q6H PRN PRN Reason: NAUSEA AND/OR VOMITING Pantoprazole Sodium (Protonix Iv) 40 mg IVPUSH DAILY [facility] Last Admin: 02/06/19 11:16 Dose: 40 mg Rivaroxaban (Xarelto) 15 mg PO DAILY@1800 [facility] Last Admin: 02/04/19 19:18 Dose: 15 mg Sertraline HCl (Zoloft -) 50 mg PO DAILY [facility] Last Admin: 02/06/19 11:16 Dose: 50 mg Silver Sulfadiazine (Silvadene -) 1 applic TP BID [facility] Last Admin: 02/06/19 11:18 Dose: 1 applic - Objective Vital Signs: Vital Signs Temperature 98.2 F 02/06/19 06:00 Pulse Rate 77 02/06/19 08:00 Respiratory Rate 18 02/06/19 09:00 Blood Pressure 93/49 L 02/06/19 08:00 O2 Sat by Pulse Oximetry (%) 100 02/06/19 09:00 Constitutional: Yes: Calm Eyes: Yes: Conjunctiva Clear HENT: Yes: Atraumatic Neck: Yes: Supple Cardiovascular: Yes: S1, S2 Respiratory: Yes: On Venti-Mask Gastrointestinal: Yes: Normal Bowel Sounds, Soft Genitourinary: Yes: Incontinence Musculoskeletal: Yes: Muscle Weakness Edema: Yes Edema: LUE: 1+, RUE: 1+, LLE: 1+, RLE: 1+ Neurological: Yes: Oriented Labs: CBC, BMP 02/06/19 05:35 02/06/19 05:35 INR, PTT INR 1.76 (0.83-1.09) H 01/27/19 05:45 Problem List - Problems (1) Acute respiratory failure Code(s): J96.00 - ACUTE RESPIRATORY FAILURE, UNSP W HYPOXIA OR HYPERCAPNIA Qualifiers: Respiratory failure complication: hypoxia Qualified Code(s): J96.01 - Acute respiratory failure with hypoxia (2) ESRD on hemodialysis Code(s): N18.6 - END STAGE RENAL DISEASE; Z99.2 - DEPENDENCE ON RENAL DIALYSIS Assessment/Plan Current Medications Generic Name Dose Route Start Last Admin Trade Name Freq PRN Reason Stop Dose Admin Acetaminophen 650 mg 02/05/19 23:36 02/06/19 06:00 Tylenol - PO 650 mg Q4H PRN Administration PAIN LEVEL 1 - 3 Albuterol Sulfate 1 amp 01/27/19 01:54 Ventolin 0.083% Nebulizer Soln - NEB Q6H PRN SHORT OF BREATH/WHEEZING Amino Acids 30 ml 01/31/19 17:30 02/06/19 11:17 Prosource No Carb Liquid Pkt PO 30 ml BID@0800,1730 [facility] Administration Collagenase 1 applic 08/21/19 10:15 02/05/19 16:26 Santyl - TP Not Given DAILY [facility] Protocol Norepinephrine Bitartrate 8, 500 mls @ 18.75 mls/hr 01/28/19 11:15 02/05/19 16:58 000 mcg/ Dextrose IV 3 mcg/min TITR [facility] 11.25 mls/hr Administration Protocol 5 MCG/MIN Insulin Aspart 1 vial 02/05/19 07:00 02/06/19 07:31 Novolog Vial Sliding Scale - SQ Not Given ACHS [facility] Protocol Levothyroxine Sodium 50 mcg 01/27/19 07:00 02/06/19 06:01 Synthroid - PO 50 mcg DAILY@0700 [facility] Administration Lidocaine/Prilocaine 1 applic 01/27/19 01:55 Emla - TP QID PRN HEMORRHOIDS Midodrine 10 mg 01/27/19 14:30 02/06/19 11:18 Proamatine - PO 10 mg TID-MID [facility] Administration Multivit/Ca Carb/B Cmplx/FA/Prenat 1 tablet 01/27/19 10:00 02/06/19 11:16 Nephro-Evert - PO 1 tablet DAILY [facility] Administration Nystatin 1 applic 01/27/19 22:00 02/05/19 23:16 Mycostatin Ointment - TP 1 applic BID [facility] Administration Ondansetron HCl 4 mg 01/27/19 01:57 Zofran - PO Q6H PRN NAUSEA AND/OR VOMITING Pantoprazole Sodium 40 mg 01/31/19 10:00 02/06/19 11:16 Protonix Iv IVPUSH 40 mg DAILY [facility] Administration Rivaroxaban 15 mg 01/27/19 18:00 02/04/19 19:18 Xarelto PO 15 mg DAILY@1800 [facility] Administration Sertraline HCl 50 mg 01/27/19 10:00 02/06/19 11:16 Zoloft - PO 50 mg DAILY [facility] Administration Silver Sulfadiazine 1 applic 01/27/19 10:00 02/06/19 11:18 Silvadene - TP 1 applic BID [facility] Administration Impression 1. ESRD 2. change in mental status 3. resp failure requiring intubation 4. chf 5. dvt 6. anemia 7. a-fib 8. hypothyroid 9. pleural effusion Plan - HD again tomorrow - monitor lytes - renal diet - monitor bp - HD right thigh cath, 3 k bath, 3 15 time, 400 abf
[2019-02-06] MEDS: NOREPINEPHRINE BITARTRATE 8,000 MCG in DEXTROSE 5%-WATER - 492 ML IV SCH (14:00)
[2019-02-06] MEDS: RIVAROXABAN 15 MG TABLET PO SCH (18:27)
[2019-02-06] MEDS: COLLAGENASE CLOSTRIDIUM HIST. 30 GRAMS TUBE TP SCH (18:38)
[2019-02-06] MEDS: MELATONIN 5 MG TABLETS PO SCH (22:56)
[2019-02-07 06:19] LABS: HEMATOCRIT 28.5 % (32.4-45.2); MCH 30.6 pg (25.7-33.7); MCHC 31.7 g/dl (32.0-36.0); MEAN CELL VOLUME 96.6 fl (80-96); MEAN PLT VOLUME 7.5 fl (7.5-11.1); PLATELET COUNT 301 K/MM3 (134-434); RBC 2.94 M/mm3 (3.60-5.2); RDW 19.4 % (11.6-15.6); WHITE BLOOD COUNT 4.8 K/mm3 (4.0-10.0)
[2019-02-07 06:51] LABS: ALBUMIN 2.5 g/dl (3.4-5.0); BILIRUBIN,TOTAL 0.4 mg/dL (0.2-1); BLOOD UREA NITROGEN 31.7 mg/dL (7-18); CALCIUM 8.6 mg/dL (8.5-10.1); CREATININE 3.4 mg/dL (0.55-1.3); POTASSIUM 4.1 mmol/L (3.5-5.1); TOT PROT 6.2 g/dl (6.4-8.2)
[2019-02-07] MEDS: INSULIN SLIDING SCALE (NOVOLOG) 1 VIAL SQ SCH ×4 (07:15→22:25)
[2019-02-07] MEDS ORDERED: PT OWN MED DRAWER 7, Y5N ONE ×2 (08:41→14:27)
--- NOTE | 2019-02-07 08:42 | PN ---
Progress Note, Physician Chief Complaint: TELE: AF, controlled. Some short self limited runs NSVT lethargic D/w team. Lingering effect of Melatonin. Same pattern as yesterday, then mental status back to baseline. History of Present Illness: hypotensive, remains on pressors - Current Medication List Current Medications: Active Medications Acetaminophen (Tylenol -) 650 mg PO Q4H PRN PRN Reason: PAIN LEVEL 1 - 3 Last Admin: 02/06/19 06:00 Dose: 650 mg Albuterol Sulfate (Ventolin 0.083% Nebulizer Soln -) 1 amp NEB Q6H PRN PRN Reason: SHORT OF BREATH/WHEEZING Amino Acids (Prosource No Carb Liquid Pkt) 30 ml PO BID@0800,1730 [facility] Last Admin: 02/06/19 18:41 Dose: 30 ml Collagenase (Santyl -) 1 applic TP DAILY [facility]; Protocol Last Admin: 02/06/19 18:38 Dose: Not Given Epoetin Memo (Epogen -) 10,000 unit IVPUSH ONCE ONE Stop: 02/07/19 13:11 Norepinephrine Bitartrate 8, (000 mcg/ Dextrose) 500 mls @ 18.75 mls/hr IV TITR [facility]; Protocol Last Titration: 02/07/19 07:16 Dose: 4 mcg/min, 15 mls/hr Sodium Chloride (Normal Saline -) 250 mls @ 3,000 mls/hr IV PRN PRN PRN Reason: Hypotension during Dialysis Stop: 02/07/19 13:10 Insulin Aspart (Novolog Vial Sliding Scale -) 1 vial SQ ACHS [facility]; Protocol Last Admin: 02/07/19 07:15 Dose: Not Given Levothyroxine Sodium (Synthroid -) 50 mcg PO DAILY@0700 [facility] Last Admin: 02/06/19 06:01 Dose: 50 mcg Lidocaine/Prilocaine (Emla -) 1 applic TP QID PRN PRN Reason: HEMORRHOIDS Melatonin (Melatonin) 10 mg PO HS [facility] Last Admin: 02/06/19 22:56 Dose: 10 mg Midodrine (Proamatine -) 10 mg PO TID-MID [facility] Last Admin: 02/06/19 18:26 Dose: 10 mg Multivit/Ca Carb/B Cmplx/FA/Prenat (Nephro-Evert -) 1 tablet PO DAILY [facility] Last Admin: 02/06/19 11:16 Dose: 1 tablet Nystatin (Mycostatin Ointment -) 1 applic TP BID [facility] Last Admin: 02/06/19 21:09 Dose: 1 applic Ondansetron HCl (Zofran -) 4 mg PO Q6H PRN PRN Reason: NAUSEA AND/OR VOMITING Pantoprazole Sodium (Protonix Iv) 40 mg IVPUSH DAILY [facility] Last Admin: 02/06/19 11:16 Dose: 40 mg Rivaroxaban (Xarelto) 15 mg PO DAILY@1800 [facility] Last Admin: 02/06/19 18:27 Dose: 15 mg Sertraline HCl (Zoloft -) 50 mg PO DAILY [facility] Last Admin: 02/06/19 11:16 Dose: 50 mg Silver Sulfadiazine (Silvadene -) 1 applic TP BID [facility] Last Admin: 02/06/19 21:07 Dose: 1 applic - Objective Vital Signs: Vital Signs Temperature 98 F 02/06/19 19:00 Pulse Rate 88 02/07/19 07:16 Respiratory Rate 18 02/07/19 07:00 Blood Pressure 89/56 L 02/07/19 07:16 O2 Sat by Pulse Oximetry (%) 100 02/06/19 20:16 Cardiovascular: Yes: Pulse Irregular Respiratory: Yes: Other (= breath sounds b/l; no active) Gastrointestinal: Yes: Soft Edema: Yes Edema: LLE: 1+, RLE: 1+ Labs: CBC, BMP 02/07/19 05:55 02/07/19 05:55 INR, PTT INR 1.76 (0.83-1.09) H 01/27/19 05:45 - ....Imaging EKG: Image Reviewed Assessment/Plan Data Echo 12/01: nl LV function, RV mod to severely dilated, RV function mod to severely reduced, mod dilated LA/RA, RVSP 40-50 mmHg, mod TR Echo 01/2019 - LV function slightly worsened, 45-50%, LA mod dilated, RV mod to severely dilated, tr AR, RV function mod to severely reduced, mild MR, mild to mod TR, RA mod to severely dilated, mobile echodensity in pleural space IMP: Acute on chronic hypoxic/hypercapneic respiratory failure at HD, with bradycardia (40s-50s) Possible RLL PNA, sepsis NSTEMI (troponin to 2): most likely Type II secondary to acute strain from CHF/ pulm HTN and acute resp failure, vs sec to hypotension Septic shock on Levophed, doubt cardiogenic shock HFpEF, pulmonary HTN, RV dysfunction ESRD on HD h/o DVT /PE on AC REC: -now extubated -remains on Pressors to maintain MAP 60mmHg--tolerating Levophed (weaning as tolerated) without tachycardia -repeat echo with LV function slightly worsened compared to prior, RV function is mod to severely reduced (stable) -repeat echo also shows echodensity in pleural space - consider chest imaging per critical care -HD as per renal for volume management -Cont xarelto (anemia, PLTs stable) -hold AVN blockers --> HRs ok -cont midodrine for bp support at HD -will defer ischemia evaluation as 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 She is at prohibitive risk for invasive tx strategy given extremely poor functional status with severe comorbidities at present. Will not tolerate signif b-blockade , though will try to give low dose if can tolerate, once she is off pressors. -no ASA for now given pt on Xarelto with mild anemia/thrombocytopenia (and likely dysfunctional PLTs in HD pt), and hi risk for bleeding at present -if she recovers from the acute illness will potentially reconsider above approach
[2019-02-07] MEDS: AMINO ACIDS/PROTEIN HYDROLYS 30 ML LIQUID.PKT PO SCH (08:49)
--- NOTE | 2019-02-07 08:56 | PN ---
Progress Note, Physician Chief Complaint: AWAKE MORE ALERT DENIES CHEST PAIN OR SOB ON 02NC 2L ABLE TO SPEAK TO HER DAUGHTER ON THE PHONE - Current Medication List Current Medications: Active Medications Acetaminophen (Tylenol -) 650 mg PO Q4H PRN PRN Reason: PAIN LEVEL 1 - 3 Last Admin: 02/06/19 06:00 Dose: 650 mg Albuterol Sulfate (Ventolin 0.083% Nebulizer Soln -) 1 amp NEB Q6H PRN PRN Reason: SHORT OF BREATH/WHEEZING Amino Acids (Prosource No Carb Liquid Pkt) 30 ml PO BID@0800,1730 [facility] Last Admin: 02/06/19 18:41 Dose: 30 ml Collagenase (Santyl -) 1 applic TP DAILY [facility]; Protocol Last Admin: 02/06/19 18:38 Dose: Not Given Epoetin Memo (Epogen -) 10,000 unit IVPUSH ONCE ONE Stop: 02/07/19 13:11 Norepinephrine Bitartrate 8, (000 mcg/ Dextrose) 500 mls @ 18.75 mls/hr IV TITR [facility]; Protocol Last Titration: 02/07/19 07:16 Dose: 4 mcg/min, 15 mls/hr Sodium Chloride (Normal Saline -) 250 mls @ 3,000 mls/hr IV PRN PRN PRN Reason: Hypotension during Dialysis Stop: 02/07/19 13:10 Insulin Aspart (Novolog Vial Sliding Scale -) 1 vial SQ ACHS [facility]; Protocol Last Admin: 02/07/19 07:15 Dose: Not Given Levothyroxine Sodium (Synthroid -) 50 mcg PO DAILY@0700 [facility] Last Admin: 02/06/19 06:01 Dose: 50 mcg Lidocaine/Prilocaine (Emla -) 1 applic TP QID PRN PRN Reason: HEMORRHOIDS Melatonin (Melatonin) 10 mg PO HS [facility] Last Admin: 02/06/19 22:56 Dose: 10 mg Midodrine (Proamatine -) 10 mg PO TID-MID [facility] Last Admin: 02/06/19 18:26 Dose: 10 mg Multivit/Ca Carb/B Cmplx/FA/Prenat (Nephro-Evert -) 1 tablet PO DAILY [facility] Last Admin: 02/06/19 11:16 Dose: 1 tablet Nystatin (Mycostatin Ointment -) 1 applic TP BID [facility] Last Admin: 02/06/19 21:09 Dose: 1 applic Ondansetron HCl (Zofran -) 4 mg PO Q6H PRN PRN Reason: NAUSEA AND/OR VOMITING Pantoprazole Sodium (Protonix Iv) 40 mg IVPUSH DAILY [facility] Last Admin: 02/06/19 11:16 Dose: 40 mg Rivaroxaban (Xarelto) 15 mg PO DAILY@1800 [facility] Last Admin: 02/06/19 18:27 Dose: 15 mg Sertraline HCl (Zoloft -) 50 mg PO DAILY [facility] Last Admin: 02/06/19 11:16 Dose: 50 mg Silver Sulfadiazine (Silvadene -) 1 applic TP BID [facility] Last Admin: 02/06/19 21:07 Dose: 1 applic - Objective Vital Signs: Vital Signs Temperature 98 F 02/06/19 19:00 Pulse Rate 88 02/07/19 07:16 Respiratory Rate 18 02/07/19 07:00 Blood Pressure 89/56 L 02/07/19 07:16 O2 Sat by Pulse Oximetry (%) 100 02/06/19 20:16 Constitutional: Yes: No Distress Cardiovascular: Yes: Regular Rate and Rhythm Respiratory: Yes: On Nasal O2 Gastrointestinal: Yes: Soft Genitourinary: Yes: Other Musculoskeletal: Yes: Muscle Weakness Edema: Yes Integumentary: Yes: Rash, Venous Stasis Changes Wound/Incision: Yes: Open to air, Excoriated Neurological: Yes: Dysarthria, Pre-Existing Deficit ...Motor Strength: LUE, LLE, RUE, RLE Psychiatric: Yes: Other Labs: CBC, BMP 02/07/19 05:55 02/07/19 05:55 INR, PTT INR 1.76 (0.83-1.09) H 01/27/19 05:45 Problem List - Problems (1) Acute respiratory failure Code(s): J96.00 - ACUTE RESPIRATORY FAILURE, UNSP W HYPOXIA OR HYPERCAPNIA Qualifiers: Respiratory failure complication: hypoxia Qualified Code(s): J96.01 - Acute respiratory failure with hypoxia (2) ESRD on hemodialysis Code(s): N18.6 - END STAGE RENAL DISEASE; Z99.2 - DEPENDENCE ON RENAL DIALYSIS (3) Hypotension Code(s): I95.9 - HYPOTENSION, UNSPECIFIED Qualifiers: Hypotension type: unspecified hypotension type Qualified Code(s): I95.9 - Hypotension, unspecified (4) Acute exacerbation of congestive heart failure Code(s): I50.9 - HEART FAILURE, UNSPECIFIED (5) Acute on chronic respiratory failure with hypoxia and hypercapnia Code(s): J96.21 - ACUTE AND CHRONIC RESPIRATORY FAILURE WITH HYPOXIA; J96.22 - ACUTE AND CHRONIC RESPIRATORY FAILURE WITH HYPERCAPNIA (6) Afib Code(s): I48.91 - UNSPECIFIED ATRIAL FIBRILLATION (7) Functional quadriplegia Code(s): R53.2 - FUNCTIONAL QUADRIPLEGIA (8) H/O deep venous thrombosis Code(s): Z86.718 - PERSONAL HISTORY OF OTHER VENOUS THROMBOSIS AND EMBOLISM (9) Hypothyroid Code(s): E03.9 - HYPOTHYROIDISM, UNSPECIFIED Assessment/Plan PATIENT IS EXTUBATED AND BREATHING ON NC 2L ON NOREPINEPHRINE FOR BP SUPPORT HD PER NEPHROLOGY UNABLE TO HOLD HER BP W/OUT PRESSORS I HAVE RECOMMENDED LTAC FOR THE PATIENT AND I DISCUSSED WITH [facility] WHO IS IN AGREEMENT. WILL D/W NETWORK DESKTOP SUPPORT SPECIALIST IN MORNING
[2019-02-07] MEDS: MIDODRINE HCL 5 MG TABLET PO SCH ×3 (09:50→20:10)
[2019-02-07] MEDS: PANTOPRAZOLE SODIUM 40 MG VIAL IVPUSH SCH (09:50)
[2019-02-07] MEDS: VITAMIN B COMP W-C 1 EA TABLET PO SCH (09:50)
[2019-02-07] MEDS: LEVOTHYROXINE NA 50 MCG TABLET (FP) PO SCH (09:51)
[2019-02-07] MEDS: SERTRALINE HCL 50 MG TABLET (FP) PO SCH (09:51)
[2019-02-07] MEDS: SILVER SULFADIAZINE 1% TOP CREAM 400 GM JAR TP SCH ×2 (10:18→22:25)
[2019-02-07] MEDS: NYSTATIN 100000 UNIT/GM TOPICAL OINTMENT 15 GM TUBE TP SCH ×2 (10:20→22:24)
[2019-02-07] MEDS ORDERED: SODIUM CHLORIDE 250 ML IV PRN (11:19)
--- NOTE | 2019-02-07 11:31 | PN ---
Progress Note, Physician History of Present Illness: Pt seen and examined at bedside. She is awake and appears comfortable. - Current Medication List Current Medications: Active Medications Acetaminophen (Tylenol -) 650 mg PO Q4H PRN PRN Reason: PAIN LEVEL 1 - 3 Last Admin: 02/06/19 06:00 Dose: 650 mg Albuterol Sulfate (Ventolin 0.083% Nebulizer Soln -) 1 amp NEB Q6H PRN PRN Reason: SHORT OF BREATH/WHEEZING Amino Acids (Prosource No Carb Liquid Pkt) 30 ml PO BID@0800,1730 [facility] Last Admin: 02/07/19 08:49 Dose: 30 ml Collagenase (Santyl -) 1 applic TP DAILY [facility]; Protocol Last Admin: 02/06/19 18:38 Dose: Not Given Epoetin Memo (Procrit -) 10,000 unit IVPUSH ONCE ONE Stop: 02/07/19 12:01 Norepinephrine Bitartrate 8, (000 mcg/ Dextrose) 500 mls @ 18.75 mls/hr IV TITR [facility]; Protocol Last Titration: 02/07/19 07:16 Dose: 4 mcg/min, 15 mls/hr Insulin Aspart (Novolog Vial Sliding Scale -) 1 vial SQ ACHS [facility]; Protocol Last Admin: 02/07/19 07:15 Dose: Not Given Levothyroxine Sodium (Synthroid -) 50 mcg PO DAILY@0700 [facility] Last Admin: 02/07/19 09:51 Dose: 50 mcg Lidocaine/Prilocaine (Emla -) 1 applic TP QID PRN PRN Reason: HEMORRHOIDS Melatonin (Melatonin) 10 mg PO HS [facility] Last Admin: 02/06/19 22:56 Dose: 10 mg Midodrine (Proamatine -) 10 mg PO TID-MID [facility] Last Admin: 02/07/19 09:50 Dose: 10 mg Multivit/Ca Carb/B Cmplx/FA/Prenat (Nephro-Evert -) 1 tablet PO DAILY [facility] Last Admin: 02/07/19 09:50 Dose: 1 tablet Nystatin (Mycostatin Ointment -) 1 applic TP BID [facility] Last Admin: 02/06/19 21:09 Dose: 1 applic Ondansetron HCl (Zofran -) 4 mg PO Q6H PRN PRN Reason: NAUSEA AND/OR VOMITING Pantoprazole Sodium (Protonix Iv) 40 mg IVPUSH DAILY [facility] Last Admin: 02/07/19 09:50 Dose: 40 mg Rivaroxaban (Xarelto) 15 mg PO DAILY@1800 [facility] Last Admin: 02/06/19 18:27 Dose: 15 mg Sertraline HCl (Zoloft -) 50 mg PO DAILY [facility] Last Admin: 02/07/19 09:51 Dose: 50 mg Silver Sulfadiazine (Silvadene -) 1 applic TP BID [facility] Last Admin: 02/06/19 21:07 Dose: 1 applic - Objective Vital Signs: Vital Signs Temperature 98 F 02/06/19 19:00 Pulse Rate 85 02/07/19 08:00 Respiratory Rate 18 02/07/19 09:00 Blood Pressure 91/55 L 02/07/19 08:00 O2 Sat by Pulse Oximetry (%) 100 02/07/19 09:20 Constitutional: Yes: Calm Eyes: Yes: Conjunctiva Clear HENT: Yes: Atraumatic Neck: Yes: Supple Cardiovascular: Yes: S1, S2 Respiratory: Yes: On Nasal O2 Gastrointestinal: Yes: Soft, Abdomen, Obese Genitourinary: Yes: Incontinence Musculoskeletal: Yes: Muscle Weakness Edema: Yes Edema: LUE: Trace, RUE: Trace, LLE: Trace, RLE: Trace Neurological: Yes: Oriented Psychiatric: Yes: Oriented Labs: CBC, BMP 02/07/19 05:55 02/07/19 05:55 INR, PTT INR 1.76 (0.83-1.09) H 01/27/19 05:45 Problem List - Problems (1) Acute respiratory failure Code(s): J96.00 - ACUTE RESPIRATORY FAILURE, UNSP W HYPOXIA OR HYPERCAPNIA Qualifiers: Respiratory failure complication: hypoxia Qualified Code(s): J96.01 - Acute respiratory failure with hypoxia (2) ESRD on hemodialysis Code(s): N18.6 - END STAGE RENAL DISEASE; Z99.2 - DEPENDENCE ON RENAL DIALYSIS Assessment/Plan Current Medications Generic Name Dose Route Start Last Admin Trade Name Freq PRN Reason Stop Dose Admin Acetaminophen 650 mg 02/05/19 23:36 02/06/19 06:00 Tylenol - PO 650 mg Q4H PRN Administration PAIN LEVEL 1 - 3 Albuterol Sulfate 1 amp 01/27/19 01:54 Ventolin 0.083% Nebulizer Soln - NEB Q6H PRN SHORT OF BREATH/WHEEZING Amino Acids 30 ml 01/31/19 17:30 02/07/19 08:49 Prosource No Carb Liquid Pkt PO 30 ml BID@0800,1730 [facility] Administration Collagenase 1 applic 02/02/19 10:15 02/06/19 18:38 Santyl - TP Not Given DAILY [facility] Protocol Epoetin Memo 10,000 unit 02/07/19 12:00 Procrit - IVPUSH 02/07/19 12:01 ONCE ONE Norepinephrine Bitartrate 8, 500 mls @ 18.75 mls/hr 01/28/19 11:15 02/07/19 07:16 000 mcg/ Dextrose IV 4 mcg/min TITR [facility] 15 mls/hr Titration Protocol 5 MCG/MIN Insulin Aspart 1 vial 02/05/19 07:00 02/07/19 07:15 Novolog Vial Sliding Scale - SQ Not Given ACHS [facility] Protocol Levothyroxine Sodium 50 mcg 01/27/19 07:00 02/07/19 09:51 Synthroid - PO 50 mcg DAILY@0700 [facility] Administration Lidocaine/Prilocaine 1 applic 01/27/19 01:55 Emla - TP QID PRN HEMORRHOIDS Melatonin 10 mg 02/06/19 22:00 02/06/19 22:56 Melatonin PO 10 mg HS [facility] Administration Midodrine 10 mg 01/27/19 14:30 02/07/19 09:50 Proamatine - PO 10 mg TID-MID [facility] Administration Multivit/Ca Carb/B Cmplx/FA/Prenat 1 tablet 01/27/19 10:00 02/07/19 09:50 Nephro-Evert - PO 1 tablet DAILY [facility] Administration Nystatin 1 applic 01/27/19 22:00 02/06/19 21:09 Mycostatin Ointment - TP 1 applic BID [facility] Administration Ondansetron HCl 4 mg 01/27/19 01:57 Zofran - PO Q6H PRN NAUSEA AND/OR VOMITING Pantoprazole Sodium 40 mg 01/31/19 10:00 02/07/19 09:50 Protonix Iv IVPUSH 40 mg DAILY [facility] Administration Rivaroxaban 15 mg 01/27/19 18:00 02/06/19 18:27 Xarelto PO 15 mg DAILY@1800 [facility] Administration Sertraline HCl 50 mg 01/27/19 10:00 02/07/19 09:51 Zoloft - PO 50 mg DAILY [facility] Administration Silver Sulfadiazine 1 applic 01/27/19 10:00 02/06/19 21:07 Silvadene - TP 1 applic BID [facility] Administration Impression 1. ESRD 2. change in mental status 3. resp failure requiring intubation 4. chf 5. dvt 6. anemia 7. a-fib 8. hypothyroid 9. pleural effusion Plan - HD today - will UF volume as tolerated - monitor lytes - renal diet - monitor bp - HD right thigh cath, 3 k bath, 3 15 time, 400 abf
--- NOTE | 2019-02-07 11:54 | PN ---
Teaching Attending Note Name of Resident: Hiren Liz ATTENDING PHYSICIAN STATEMENT I saw and evaluated the patient. I reviewed the resident's note and discussed the case with the resident. I agree with the resident's findings and plan as documented. SUBJECTIVE: Pt seen and examined in the ICU. Remains on levophed gtt. Saturating well on nasal cannula. OBJECTIVE: Vital Signs Period Temp Pulse Resp BP Sys/Jhaveri Pulse Ox Last 24 Hr 98 F-98.2 F 81-91 12-21 89-109/49-70 100-100 Intake & Output 02/04/19 02/05/19 02/06/19 02/07/19 23:59 23:59 23:59 23:59 Intake Total 550 710 778 184 Output Total 3400 3400 0 Balance -2850 -2690 778 184 Weight 82.282 kg 84.323 kg 83.3 kg Gen: NAD at rest Heart: RRR Lung: decreased breath sounds at the bases Abd: soft, nontender Ext: +edema CBC, BMP 02/07/19 05:55 02/07/19 05:55 Active Medications Acetaminophen (Tylenol -) 650 mg PO Q4H PRN PRN Reason: PAIN LEVEL 1 - 3 Last Admin: 02/06/19 06:00 Dose: 650 mg Amino Acids (Prosource No Carb Liquid Pkt) 30 ml PO BID@0800,1730 [facility] Last Admin: 02/07/19 08:49 Dose: 30 ml Collagenase (Santyl -) 1 applic TP DAILY [facility]; Protocol Last Admin: 02/06/19 18:38 Dose: Not Given Epoetin Memo (Procrit -) 10,000 unit IVPUSH ONCE ONE Stop: 02/07/19 12:01 Norepinephrine Bitartrate 8, (000 mcg/ Dextrose) 500 mls @ 18.75 mls/hr IV TITR [facility]; Protocol Last Titration: 02/07/19 07:16 Dose: 4 mcg/min, 15 mls/hr Insulin Aspart (Novolog Vial Sliding Scale -) 1 vial SQ ACHS [facility]; Protocol Last Admin: 02/07/19 07:15 Dose: Not Given Levothyroxine Sodium (Synthroid -) 50 mcg PO DAILY@0700 [facility] Last Admin: 02/07/19 09:51 Dose: 50 mcg Lidocaine/Prilocaine (Emla -) 1 applic TP QID PRN PRN Reason: HEMORRHOIDS Melatonin (Melatonin) 10 mg PO HS [facility] Last Admin: 02/06/19 22:56 Dose: 10 mg Midodrine (Proamatine -) 10 mg PO TID-MID [facility] Last Admin: 02/07/19 09:50 Dose: 10 mg Multivit/Ca Carb/B Cmplx/FA/Prenat (Nephro-Evert -) 1 tablet PO DAILY [facility] Last Admin: 02/07/19 09:50 Dose: 1 tablet Nystatin (Mycostatin Ointment -) 1 applic TP BID [facility] Last Admin: 02/06/19 21:09 Dose: 1 applic Ondansetron HCl (Zofran -) 4 mg PO Q6H PRN PRN Reason: NAUSEA AND/OR VOMITING Pantoprazole Sodium (Protonix Iv) 40 mg IVPUSH DAILY [facility] Last Admin: 02/07/19 09:50 Dose: 40 mg Rivaroxaban (Xarelto) 15 mg PO DAILY@1800 [facility] Last Admin: 02/06/19 18:27 Dose: 15 mg Sertraline HCl (Zoloft -) 50 mg PO DAILY [facility] Last Admin: 02/07/19 09:51 Dose: 50 mg Silver Sulfadiazine (Silvadene -) 1 applic TP BID [facility] Last Admin: 02/06/19 21:07 Dose: 1 applic ASSESSMENT AND PLAN: Acute on Chronic Hypoxic and Hypercapneic Respiratory Failure improving r/o Pneumonia Shock likely Septic Volume Overload ESRD on HD +Troponins likely Demand Ischemia Pulmonary HTN h/o PE/DVT - completed antibiotics - taper pressors to maintain MAP >55 - continue midodrine - HD per renal with ultrafiltration - taper FiO2 to keep SpO2 >90% - continue anticoagulation - DVT/GI prophylaxis - continue ICU monitoring critical care time spent in reviewing chart, evaluating patient and formulating plan 35 min
[2019-02-07] MEDS ORDERED: EPOETIN ALFA 10,000 UNIT/1 ML VIAL IVPUSH ONE (12:00)
[2019-02-07] MEDS: NOREPINEPHRINE BITARTRATE 8,000 MCG in DEXTROSE 5%-WATER - 492 ML IV SCH (12:00)
--- NOTE | 2019-02-07 13:10 | PN ---
Progress Note, MANAGER ACCOUNT MANAGEMENT - Note Progress Note: On puree/honey thick liquid. Looks stronger, verbal, intermittently confused, asking questions with impaired insight. Tolerating diet with good appetite. Selected Entries 02/06/19 02/06/19 02/06/19 06:00 10:00 16:00 Breakfast 75% Lunch 75% Temperature 98.2 F 98.1 F 98.2 F 02/06/19 02/07/19 02/07/19 19:00 09:20 11:55 Breakfast 75% Lunch Temperature 98 F 98.7 F Consider trial of dysphagia groud and nectar thick liquid. Aspiration precautions.
--- NOTE | 2019-02-07 13:18 | PN ---
Physical Exam: SUBJECTIVE: Patient seen and examined at bedside this AM. Pt is lethargic, but AAO X3. OBJECTIVE: Vital Signs Period Temp Pulse Resp BP Sys/Jhaveri Pulse Ox Last 24 Hr 98 F-98.7 F 72-91 12-21 80-109/49-70 100-100 GENERAL: The patient is AOX3, no acute distress. Lines- Left femoral central line and a rt tesio femoral line HEAD: Normal with no signs of trauma. EYES: sclera anicteric, conjunctiva clear. No ptosis. NECK: supple. LUNGS: Breath sounds decreased, clear to auscultation bilaterally, no wheezes, no crackles, no accessory muscle use. HEART: Regular rate and rhythm, S1, S2 without murmur, rub or gallop. ABDOMEN: Soft, nontender, nondistended, normoactive bowel sounds, no guarding, no rebound. EXTREMITIES: 2+ pulses, warm, well-perfused, RUE 1+ edema, LUE bandage, LLE bandage. NEUROLOGICAL: Cranial nerves II through XII grossly intact. Normal speech, gait not observed. PSYCH: Normal mood, normal affect. SKIN: Warm, dry, normal turgor, no rashes or lesions noted Laboratory Results - last 24 hr 02/06/19 02/06/19 02/07/19 17:51 21:03 05:55 WBC 4.8 RBC 2.94 L Hgb 9.0 L Hct 28.5 L MCV 96.6 H MCH 30.6 MCHC 31.7 L RDW 19.4 H Plt Count 301 MPV 7.5 Sodium Potassium Chloride Carbon Dioxide Anion Gap BUN Creatinine Est GFR (CKD-EPI)AfAm Est GFR (CKD-EPI)NonAf POC Glucometer 153 148 Random Glucose Calcium Total Bilirubin AST ALT Alkaline Phosphatase Total Protein Albumin 02/07/19 02/07/19 02/07/19 05:55 06:04 12:45 WBC RBC Hgb Hct MCV MCH MCHC RDW Plt Count MPV Sodium 136 Potassium 4.1 Chloride 100 Carbon Dioxide 29 Anion Gap 7 L BUN 31.7 H Creatinine 3.4 H Est GFR (CKD-EPI)AfAm 14.95 Est GFR (CKD-EPI)NonAf 12.90 POC Glucometer 149 160 Random Glucose 164 H Calcium 8.6 Total Bilirubin 0.4 AST 17 ALT 18 Alkaline Phosphatase 128 H Total Protein 6.2 L Albumin 2.5 L Active Medications Generic Name Dose Route Start Last Admin Trade Name Freq PRN Reason Stop Dose Admin Acetaminophen 650 mg 02/05/19 23:36 02/06/19 06:00 Tylenol - PO 650 mg Q4H PRN Administration PAIN LEVEL 1 - 3 Amino Acids 30 ml 01/31/19 17:30 02/07/19 08:49 Prosource No Carb Liquid Pkt PO 30 ml BID@0800,1730 [facility] Administration Collagenase 1 applic 02/02/19 10:15 02/06/19 18:38 Santyl - TP Not Given DAILY [facility] Protocol Norepinephrine Bitartrate 8, 500 mls @ 18.75 mls/hr 01/28/19 11:15 02/07/19 07:16 000 mcg/ Dextrose IV 4 mcg/min TITR [facility] 15 mls/hr Titration Protocol 5 MCG/MIN Insulin Aspart 1 vial 02/05/19 07:00 02/07/19 07:15 Novolog Vial Sliding Scale - SQ Not Given ACHS [facility] Protocol Levothyroxine Sodium 50 mcg 01/27/19 07:00 02/07/19 09:51 Synthroid - PO 50 mcg DAILY@0700 [facility] Administration Lidocaine/Prilocaine 1 applic 01/27/19 01:55 Emla - TP QID PRN HEMORRHOIDS Melatonin 10 mg 02/06/19 22:00 02/06/19 22:56 Melatonin PO 10 mg HS [facility] Administration Midodrine 10 mg 01/27/19 14:30 02/07/19 09:50 Proamatine - PO 10 mg TID-MID [facility] Administration Multivit/Ca Carb/B Cmplx/FA/Prenat 1 tablet 01/27/19 10:00 02/07/19 09:50 Nephro-Evert - PO 1 tablet DAILY [facility] Administration Nystatin 1 applic 01/27/19 22:00 02/06/19 21:09 Mycostatin Ointment - TP 1 applic BID [facility] Administration Ondansetron HCl 4 mg 01/27/19 01:57 Zofran - PO Q6H PRN NAUSEA AND/OR VOMITING Pantoprazole Sodium 40 mg 01/31/19 10:00 02/07/19 09:50 Protonix Iv IVPUSH 40 mg DAILY [facility] Administration Rivaroxaban 15 mg 01/27/19 18:00 02/06/19 18:27 Xarelto PO 15 mg DAILY@1800 [facility] Administration Sertraline HCl 50 mg 01/27/19 10:00 02/07/19 09:51 Zoloft - PO 50 mg DAILY [facility] Administration Silver Sulfadiazine 1 applic 01/27/19 10:00 02/06/19 21:07 Silvadene - TP 1 applic BID [facility] Administration ASSESSMENT/PLAN: LINES - L femoral central line placed 01/26, will need prolonged access due to difficulty in obtaining access elsewhere, stenosis centrally - R femoral Tesio catheter This is a 73 y/o F with a PMHx of ESRD, Orthostatic Hypotension, CHF, DM, hypothyroid, COPD, Afib (on Xarelto), DVTs, Pulmonary Edema and multiple admissions for PNA admitted to the ICU for unresponsiveness secondary to acute hypercapnic RF accompanied by hypotension 2/2 dialysis. CARDIOLOGY-> Orthostatic hypotension 2/2 hemodialysis/HFrEF - on Levophed 4mcq this morning, will wean off pressors after dialysis, as long as maintaining MAP >55%. - previous echo 12/08/18 showing normal EF, moderate to severe right ventricle dilation, increased right ventricular systolic pressure. -repeat echo with LV function slightly worsened compared to prior, RV function is mod to severely reduced (stable) -repeat echo shows echodensity in pleural space - consider chest imaging per critical care -HD as per renal for volume management -Continuing xarelto -continuing to hold AV node blockers -cont midodrine for bp support at HD - Pt unable to tolerate BB at this time, will try low dose if can tolerate, once she is off pressors. -no ASA for now given pt on Xarelto with mild anemia/thrombocytopenia (and likely dysfunctional PLTs in HD pt), and high risk for bleeding at present -if she recovers from the acute illness will potentially reconsider above approach RESPIRATORY-> Acute on chronic hypercapneic respiratory failure 2/2 Sepsis - on NC, satting in mid s. - albuterol nebulizer q6h prn RENAL-> ESRD - Dr. Molina consulted - HD today - ultrafiltrate volume as tolerated - monitor lytes - renal diet - monitor bp INFECTIOUS DISEASE-> Septic shock - requiring pressors will wean levophed after dialysis. - pt on midodrine - hypotensive, 4.8 WBC, afebrile - pt chronically hypotensive - hx of cdiff, cautious approach to continuing antibiotics - blood cxs negative - monitoring off abx ENDOCRINE-> Hypothyroidism - continue home Synthroid - Diabetes management: - BGM q6h - ISS HEMATOLOGY-> Anemia/thrombocytopenia 2/2 Sepsis/ESRD - FOBT negative - Hgb stable 9, continuing to monitor if Hb < 7 will transfuse - thrombocytopenia 301 improved, continue to monitor Vascular RUE edema - duplex US negative for thrombosis F/E/N - no standing fluids - continue to monitor electrolytes and replete as necessary, less aggressive hypokalemia and hypophospatemia replacement in setting of ESRD - dysphagia ground and nectar thick fluids. PROPHYLAXIS - home Xarelto CODE - full code DISPO - continuing to monitor on ICU. Visit type - Emergency Visit Emergency Visit: Yes ED Registration Date: 01/26/19 Care time: The patient presented to the Emergency Department on the above date and was hospitalized for further evaluation of their emergent condition. - New Patient This patient is new to me today: Yes Date on this admission: 02/07/19 - Critical Care Critical Care patient: Yes Total Critical Care Time (in minutes): 35 Critical Care Statement: The care of this patient involved high complexity decision making to prevent further life threatening deterioration of the patient 's condition and/or to evaluate & treat vital organ system(s) failure or risk of failure. - Discharge Referral Referred to [facility] No ATTENDING PHYSICIAN STATEMENT I saw and evaluated the patient. I reviewed the resident's note and discussed the case with the resident. I agree with the resident's findings and plan as documented. SUBJECTIVE: OBJECTIVE: ASSESSMENT AND PLAN:
[2019-02-07] MEDS ORDERED: INSULIN (NOVOLOG) ASPART 100 UNITS/ML 10ML VIAL ONE (14:28)
[2019-02-07] MEDS: RIVAROXABAN 15 MG TABLET PO SCH (17:18)
[2019-02-07] MEDS: COLLAGENASE CLOSTRIDIUM HIST. 30 GRAMS TUBE TP SCH (17:19)
[2019-02-07] MEDS: MELATONIN 5 MG TABLETS PO SCH (22:24)
[2019-02-08] MEDS: LEVOTHYROXINE NA 50 MCG TABLET (FP) PO SCH (06:23)
[2019-02-08 06:27] LABS: BASO % 1.3 % (0-2.0); EOS % 2.9 % (0-4.5); HEMATOCRIT 28.9 % (32.4-45.2); HEMOGLOBIN 9.1 GM/dL (10.7-15.3); LYMPH % 27.9 % (8-40); MCHC 31.3 g/dl (32.0-36.0); MEAN CELL VOLUME 95.7 fl (80-96); MEAN PLT VOLUME 7.8 fl (7.5-11.1); MONO % 8.8 % (3.8-10.2); NEUT % 59.1 % (42.8-82.8); PLATELET COUNT 292 K/MM3 (134-434); RBC 3.02 M/mm3 (3.60-5.2); RDW 18.9 % (11.6-15.6); WHITE BLOOD COUNT 4.5 K/mm3 (4.0-10.0)
[2019-02-08 06:55] LABS: ALBUMIN 2.6 g/dl (3.4-5.0); BILIRUBIN,TOTAL 0.4 mg/dL (0.2-1); BLOOD UREA NITROGEN 23.2 mg/dL (7-18); CALCIUM 8.5 mg/dL (8.5-10.1); CREATININE 2.6 mg/dL (0.55-1.3); POTASSIUM 4.3 mmol/L (3.5-5.1); TOT PROT 6.4 g/dl (6.4-8.2)
[2019-02-08] MEDS: INSULIN SLIDING SCALE (NOVOLOG) 1 VIAL SQ SCH ×4 (07:44→22:07)
[2019-02-08] MEDS ORDERED: PT OWN MED DRAWER 7, Y5N ONE (08:47)
--- NOTE | 2019-02-08 09:13 | PN ---
Progress Note, Physician Chief Complaint: DISCUSSED WITH DAUGHTER TITUS MCCAIN I REVIEWED THE CASE WITH HER PATIENT IS [place]ADE[place] AWAKE STILL ON PRESSURE SUPPORT - Current Medication List Current Medications: Active Medications Acetaminophen (Tylenol -) 650 mg PO Q4H PRN PRN Reason: PAIN LEVEL 1 - 3 Last Admin: 02/06/19 06:00 Dose: 650 mg Amino Acids (Prosource No Carb Liquid Pkt) 30 ml PO BID@0800,1730 [facility] Last Admin: 02/07/19 08:49 Dose: 30 ml Collagenase (Santyl -) 1 applic TP DAILY [facility]; Protocol Last Admin: 02/07/19 17:19 Dose: Not Given Norepinephrine Bitartrate 8, (000 mcg/ Dextrose) 500 mls @ 18.75 mls/hr IV TITR [facility]; Protocol Last Titration: 02/08/19 08:33 Dose: 4 mcg/min, 15 mls/hr Insulin Aspart (Novolog Vial Sliding Scale -) 1 vial SQ ACHS [facility]; Protocol Last Admin: 02/08/19 07:44 Dose: Not Given Levothyroxine Sodium (Synthroid -) 50 mcg PO DAILY@0700 [facility] Last Admin: 02/08/19 06:23 Dose: 50 mcg Lidocaine/Prilocaine (Emla -) 1 applic TP QID PRN PRN Reason: HEMORRHOIDS Melatonin (Melatonin) 10 mg PO HS [facility] Last Admin: 02/07/19 22:24 Dose: 10 mg Midodrine (Proamatine -) 10 mg PO TID-MID [facility] Last Admin: 02/07/19 20:10 Dose: 10 mg Multivit/Ca Carb/B Cmplx/FA/Prenat (Nephro-Evert -) 1 tablet PO DAILY [facility] Last Admin: 02/07/19 09:50 Dose: 1 tablet Nystatin (Mycostatin Ointment -) 1 applic TP BID [facility] Last Admin: 02/07/19 22:24 Dose: 1 applic Ondansetron HCl (Zofran -) 4 mg PO Q6H PRN PRN Reason: NAUSEA AND/OR VOMITING Pantoprazole Sodium (Protonix Iv) 40 mg IVPUSH DAILY [facility] Last Admin: 02/07/19 09:50 Dose: 40 mg Rivaroxaban (Xarelto) 15 mg PO DAILY@1800 [facility] Last Admin: 02/07/19 17:18 Dose: 15 mg Sertraline HCl (Zoloft -) 50 mg PO DAILY [facility] Last Admin: 02/07/19 09:51 Dose: 50 mg Silver Sulfadiazine (Silvadene -) 1 applic TP BID [facility] Last Admin: 02/07/19 22:25 Dose: 1 applic - Objective Vital Signs: Vital Signs Temperature 97.4 F L 02/08/19 06:00 Pulse Rate 97 H 02/08/19 08:33 Respiratory Rate 18 02/08/19 07:00 Blood Pressure 98/85 02/08/19 08:33 O2 Sat by Pulse Oximetry (%) 100 02/07/19 21:00 Constitutional: Yes: Mild Distress Cardiovascular: Yes: Pulse Irregular Respiratory: Yes: Diminished Gastrointestinal: Yes: Soft Genitourinary: Yes: Other Musculoskeletal: Yes: Muscle Weakness Edema: Yes Neurological: Yes: Pre-Existing Deficit, Weakness Psychiatric: Yes: Other Labs: CBC, BMP 02/08/19 05:40 INR, PTT INR 1.76 (0.83-1.09) H 01/27/19 05:45 Problem List - Problems (1) Acute respiratory failure Code(s): J96.00 - ACUTE RESPIRATORY FAILURE, UNSP W HYPOXIA OR HYPERCAPNIA Qualifiers: Respiratory failure complication: hypoxia Qualified Code(s): J96.01 - Acute respiratory failure with hypoxia (2) ESRD on hemodialysis Code(s): N18.6 - END STAGE RENAL DISEASE; Z99.2 - DEPENDENCE ON RENAL DIALYSIS (3) Hypotension Code(s): I95.9 - HYPOTENSION, UNSPECIFIED Qualifiers: Hypotension type: unspecified hypotension type Qualified Code(s): I95.9 - Hypotension, unspecified (4) Acute exacerbation of congestive heart failure Code(s): I50.9 - HEART FAILURE, UNSPECIFIED (5) Acute on chronic respiratory failure with hypoxia and hypercapnia Code(s): J96.21 - ACUTE AND CHRONIC RESPIRATORY FAILURE WITH HYPOXIA; J96.22 - ACUTE AND CHRONIC RESPIRATORY FAILURE WITH HYPERCAPNIA (6) Afib Code(s): I48.91 - UNSPECIFIED ATRIAL FIBRILLATION (7) Functional quadriplegia Code(s): R53.2 - FUNCTIONAL QUADRIPLEGIA (8) H/O deep venous thrombosis Code(s): Z86.718 - PERSONAL HISTORY OF OTHER VENOUS THROMBOSIS AND EMBOLISM (9) Hypothyroid Code(s): E03.9 - HYPOTHYROIDISM, UNSPECIFIED Assessment/Plan PATIENT IS EXTUBATED AND BREATHING ON NC 2L ON NOREPINEPHRINE FOR BP SUPPORT HD PER NEPHROLOGY UNABLE TO HOLD HER BP W/OUT PRESSORS I HAVE RECOMMENDED LTAC FOR THE PATIENT AND I DISCUSSED WITH TITUS WHO IS IN AGREEMENT OF PLACING HER MOM HOWEVER SHE WANTS OTHER CHOICES THEN [facility] IN [place], [place]. WILL D/W MANAGER SERVICING IN MORNING
[2019-02-08] MEDS: MIDODRINE HCL 5 MG TABLET PO SCH ×4 (10:19→18:20)
[2019-02-08] MEDS: AMINO ACIDS/PROTEIN HYDROLYS 30 ML LIQUID.PKT PO SCH ×2 (10:20→18:21)
[2019-02-08] MEDS: VITAMIN B COMP W-C 1 EA TABLET PO SCH (10:20)
[2019-02-08] MEDS: NYSTATIN 100000 UNIT/GM TOPICAL OINTMENT 15 GM TUBE TP SCH ×2 (10:20→21:44)
[2019-02-08] MEDS: PANTOPRAZOLE SODIUM 40 MG VIAL IVPUSH SCH (10:20)
[2019-02-08] MEDS: ACETAMINOPHEN 325 MG TABLET (FP) PO PRN ×2 (10:21→23:32)
[2019-02-08] MEDS: SERTRALINE HCL 50 MG TABLET (FP) PO SCH (10:21)
[2019-02-08] MEDS: COLLAGENASE CLOSTRIDIUM HIST. 30 GRAMS TUBE TP SCH (10:22)
[2019-02-08] MEDS: SILVER SULFADIAZINE 1% TOP CREAM 400 GM JAR TP SCH ×2 (10:22→21:45)
--- NOTE | 2019-02-08 10:43 | PN ---
Teaching Attending Note Name of Resident: Aishwarya Coombs ATTENDING PHYSICIAN STATEMENT I saw and evaluated the patient. I reviewed the resident's note and discussed the case with the resident. I agree with the resident's findings and plan as documented. SUBJECTIVE: Pt seen and examined in the ICU. Remains on levophed gtt. Dialyzed yesterday with removal of 3kg. No shortness of breath or chest pain. OBJECTIVE: Vital Signs Period Temp Pulse Resp BP Sys/Jhaveri Pulse Ox Last 24 Hr 97.4 F-98.7 F 72-102 14-28 80-111/52-85 100-100 Intake & Output 02/05/19 02/06/19 02/07/19 02/08/19 23:59 23:59 23:59 23:59 Intake Total 710 778 774 157.5 Output Total 3400 0 3000 Balance -2690 778 -2226 157.5 Weight 82.282 kg 84.323 kg 83.3 kg 85.139 kg Gen: mildly tachypneic at rest Heart: RRR Lung: decreased breath sounds at the bases Abd: soft, nontender Ext: + edema CBC, BMP 02/08/19 05:40 02/08/19 05:40 Active Medications Acetaminophen (Tylenol -) 650 mg PO Q4H PRN PRN Reason: PAIN LEVEL 1 - 3 Last Admin: 02/08/19 10:21 Dose: 650 mg Amino Acids (Prosource No Carb Liquid Pkt) 30 ml PO BID@0800,1730 [facility] Last Admin: 02/08/19 10:20 Dose: 30 ml Collagenase (Santyl -) 1 applic TP DAILY [facility]; Protocol Last Admin: 02/08/19 10:22 Dose: 1 applic Norepinephrine Bitartrate 8, (000 mcg/ Dextrose) 500 mls @ 18.75 mls/hr IV TITR [facility]; Protocol Last Titration: 02/08/19 08:33 Dose: 4 mcg/min, 15 mls/hr Insulin Aspart (Novolog Vial Sliding Scale -) 1 vial SQ ACHS [facility]; Protocol Last Admin: 02/08/19 07:44 Dose: Not Given Levothyroxine Sodium (Synthroid -) 50 mcg PO DAILY@0700 [facility] Last Admin: 02/08/19 06:23 Dose: 50 mcg Lidocaine/Prilocaine (Emla -) 1 applic TP QID PRN PRN Reason: HEMORRHOIDS Melatonin (Melatonin) 10 mg PO HS [facility] Last Admin: 02/07/19 22:24 Dose: 10 mg Midodrine (Proamatine -) 10 mg PO TID-MID [facility] Last Admin: 02/08/19 10:19 Dose: 10 mg Multivit/Ca Carb/B Cmplx/FA/Prenat (Nephro-Evert -) 1 tablet PO DAILY [facility] Last Admin: 02/08/19 10:20 Dose: 1 tablet Nystatin (Mycostatin Ointment -) 1 applic TP BID [facility] Last Admin: 02/08/19 10:20 Dose: 1 applic Ondansetron HCl (Zofran -) 4 mg PO Q6H PRN PRN Reason: NAUSEA AND/OR VOMITING Pantoprazole Sodium (Protonix Iv) 40 mg IVPUSH DAILY [facility] Last Admin: 02/08/19 10:20 Dose: 40 mg Rivaroxaban (Xarelto) 15 mg PO DAILY@1800 [facility] Last Admin: 02/07/19 17:18 Dose: 15 mg Sertraline HCl (Zoloft -) 50 mg PO DAILY [facility] Last Admin: 02/08/19 10:21 Dose: 50 mg Silver Sulfadiazine (Silvadene -) 1 applic TP BID [facility] Last Admin: 02/08/19 10:22 Dose: 1 applic ASSESSMENT AND PLAN: Acute on Chronic Hypoxic and Hypercapneic Respiratory Failure improving r/o Pneumonia Shock likely Septic r/o Autonomic Dysfunction Volume Overload ESRD on HD +Troponins likely Demand Ischemia Pulmonary HTN h/o PE/DVT - completed antibiotics - taper pressors to maintain MAP >55 - continue midodrine - HD per renal with ultrafiltration - taper FiO2 to keep SpO2 >90% - continue anticoagulation - DVT/GI prophylaxis - continue ICU monitoring while on pressors critical care time spent in reviewing chart, evaluating patient and formulating plan 35 min
[2019-02-08] MEDS: NOREPINEPHRINE BITARTRATE 8,000 MCG in DEXTROSE 5%-WATER - 492 ML IV SCH (11:00)
--- NOTE | 2019-02-08 11:06 | PN ---
Progress Note (short form) - Note Progress Note: no chest pain, palps, dizziness Current Medications Acetaminophen (Tylenol -) 650 mg PO Q4H PRN PRN Reason: PAIN LEVEL 1 - 3 Last Admin: 02/08/19 10:21 Dose: 650 mg Amino Acids (Prosource No Carb Liquid Pkt) 30 ml PO BID@0800,1730 [facility] Last Admin: 02/08/19 10:20 Dose: 30 ml Collagenase (Santyl -) 1 applic TP DAILY [facility]; Protocol Last Admin: 02/08/19 10:22 Dose: 1 applic Norepinephrine Bitartrate 8, (000 mcg/ Dextrose) 500 mls @ 18.75 mls/hr IV TITR [facility]; Protocol Insulin Aspart (Novolog Vial Sliding Scale -) 1 vial SQ ACHS [facility]; Protocol Last Admin: 02/08/19 07:44 Dose: Not Given Levothyroxine Sodium (Synthroid -) 50 mcg PO DAILY@0700 [facility] Last Admin: 02/08/19 06:23 Dose: 50 mcg Lidocaine/Prilocaine (Emla -) 1 applic TP QID PRN PRN Reason: HEMORRHOIDS Melatonin (Melatonin) 10 mg PO HS [facility] Last Admin: 02/07/19 22:24 Dose: 10 mg Midodrine (Proamatine -) 10 mg PO TID-MID [facility] Last Admin: 02/08/19 10:19 Dose: 10 mg Multivit/Ca Carb/B Cmplx/FA/Prenat (Nephro-Evert -) 1 tablet PO DAILY [facility] Last Admin: 02/08/19 10:20 Dose: 1 tablet Nystatin (Mycostatin Ointment -) 1 applic TP BID [facility] Last Admin: 02/08/19 10:20 Dose: 1 applic Ondansetron HCl (Zofran -) 4 mg PO Q6H PRN PRN Reason: NAUSEA AND/OR VOMITING Pantoprazole Sodium (Protonix Iv) 40 mg IVPUSH DAILY [facility] Last Admin: 02/08/19 10:20 Dose: 40 mg Rivaroxaban (Xarelto) 15 mg PO DAILY@1800 [facility] Last Admin: 02/07/19 17:18 Dose: 15 mg Sertraline HCl (Zoloft -) 50 mg PO DAILY [facility] Last Admin: 02/08/19 10:21 Dose: 50 mg Silver Sulfadiazine (Silvadene -) 1 applic TP BID [facility] Last Admin: 02/08/19 10:22 Dose: 1 applic Vital Signs Period Temp Pulse Resp BP Sys/Jhaveri Pulse Ox Last 24 Hr 97.4 F-98.7 F 72-102 14-28 80-111/52-85 100-100 Cardiovascular: Yes: Pulse Irregular Respiratory: Yes: Other (= breath sounds b/l; no active) Gastrointestinal: Yes: Soft Edema: Yes Edema: LLE: 1+, RLE: 1+ no jaundice, diaphoresis not agitated - ....Imaging EKG: Image Reviewed Assessment/Plan Data Echo 12/01: nl LV function, RV mod to severely dilated, RV function mod to severely reduced, mod dilated LA/RA, RVSP 40-50 mmHg, mod TR Echo 01/2019 - LV function slightly worsened, 45-50%, LA mod dilated, RV mod to severely dilated, tr AR, RV function mod to severely reduced, mild MR, mild to mod TR, RA mod to severely dilated, mobile echodensity in pleural space tele: afib, rate controlled IMP: Acute on chronic hypoxic/hypercapneic respiratory failure at HD, with bradycardia (40s-50s) Possible RLL PNA, sepsis NSTEMI (troponin to 2): most likely Type II secondary to acute strain from CHF/ pulm HTN and acute resp failure, vs sec to hypotension Septic shock on Levophed, doubt cardiogenic shock HFpEF, pulmonary HTN, RV dysfunction ESRD on HD h/o DVT /PE on AC REC: -now extubated -wean levophed to maintain MAP 55 mmHg -repeat echo with LV function slightly worsened compared to prior, RV function is mod to severely reduced (stable) -repeat echo also shows echodensity in pleural space - consider chest imaging per critical care -HD as per renal for volume management -Cont xarelto (anemia, PLTs stable) -hold AVN blockers --> HRs ok -cont midodrine for bp support at HD -will defer ischemia evaluation as this will not change control manager. She is at prohibitive risk for invasive tx strategy given extremely poor functional status with severe comorbidities at present. Will not tolerate signif b-blockade , though will try to give low dose if can tolerate, once she is off pressors. -no ASA for now given pt on Xarelto with mild anemia/thrombocytopenia (and likely dysfunctional PLTs in HD pt), and hi risk for bleeding at present -if she recovers from the acute illness will potentially reconsider above approach
--- NOTE | 2019-02-08 11:41 | PN ---
Physical Exam: SUBJECTIVE: Patient seen and examined at bedside. pt does not complain of SOB. pt only complains of vaginal pain and discomfort. OBJECTIVE: Vital Signs Period Temp Pulse Resp BP Sys/Jhaveri Pulse Ox Last 24 Hr 97.4 F-98.7 F 72-102 14-28 80-111/52-85 100-100 GENERAL: The patient is awake, alert, and fully oriented, in no acute distress. LUNGS: Breath sounds equal, clear to auscultation bilaterally, decreased breath sounds b/l bases. no wheezes, no crackles, no accessory muscle use. HEART: Regular rate and rhythm, S1, S2 without murmur, rub or gallop. ABDOMEN: Soft, nontender, nondistended, normoactive bowel sounds, no guarding, no rebound, no hepatosplenomegaly, no masses. EXTREMITIES: 2+ pulses, warm, well-perfused, no edema. SKIN: Warm, dry, normal turgor, no rashes or lesions noted Laboratory Results 02/08/19 02/08/19 02/08/19 05:40 05:40 07:18 WBC 4.5 RBC 3.02 L Hgb 9.1 L Hct 28.9 L MCV 95.7 MCH 30.0 MCHC 31.3 L RDW 18.9 H Plt Count 292 MPV 7.8 Absolute Neuts (auto) 2.7 Neutrophils % 59.1 D Lymphocytes % 27.9 D Monocytes % 8.8 Eosinophils % 2.9 D Basophils % 1.3 Nucleated RBC % 0 Sodium 135 L Potassium 4.3 Chloride 99 Carbon Dioxide 29 Anion Gap 8 BUN 23.2 H Creatinine 2.6 H Est GFR (CKD-EPI)AfAm 20.68 Est GFR (CKD-EPI)NonAf 17.84 POC Glucometer 151 Random Glucose 120 H Calcium 8.5 Total Bilirubin 0.4 AST 18 ALT 16 Alkaline Phosphatase 130 H Total Protein 6.4 Albumin 2.6 L Current Medications Acetaminophen (Tylenol -) 650 mg PO Q4H PRN PRN Reason: PAIN LEVEL 1 - 3 Last Admin: 02/08/19 10:21 Dose: 650 mg Amino Acids (Prosource No Carb Liquid Pkt) 30 ml PO BID@0800,1730 [facility] Last Admin: 02/08/19 10:20 Dose: 30 ml Collagenase (Santyl -) 1 applic TP DAILY [facility]; Protocol Last Admin: 02/08/19 10:22 Dose: 1 applic Norepinephrine Bitartrate 8, (000 mcg/ Dextrose) 500 mls @ 18.75 mls/hr IV TITR [facility]; Protocol Insulin Aspart (Novolog Vial Sliding Scale -) 1 vial SQ ACHS [facility]; Protocol Last Admin: 02/08/19 07:44 Dose: Not Given Levothyroxine Sodium (Synthroid -) 50 mcg PO DAILY@0700 [facility] Last Admin: 02/08/19 06:23 Dose: 50 mcg Lidocaine/Prilocaine (Emla -) 1 applic TP QID PRN PRN Reason: HEMORRHOIDS Melatonin (Melatonin) 10 mg PO HS [facility] Last Admin: 02/07/19 22:24 Dose: 10 mg Midodrine (Proamatine -) 10 mg PO TID-MID [facility] Last Admin: 02/08/19 10:19 Dose: 10 mg Multivit/Ca Carb/B Cmplx/FA/Prenat (Nephro-Evert -) 1 tablet PO DAILY [facility] Last Admin: 02/08/19 10:20 Dose: 1 tablet Nystatin (Mycostatin Ointment -) 1 applic TP BID [facility] Last Admin: 02/08/19 10:20 Dose: 1 applic Ondansetron HCl (Zofran -) 4 mg PO Q6H PRN PRN Reason: NAUSEA AND/OR VOMITING Pantoprazole Sodium (Protonix Iv) 40 mg IVPUSH DAILY [facility] Last Admin: 02/08/19 10:20 Dose: 40 mg Rivaroxaban (Xarelto) 15 mg PO DAILY@1800 [facility] Last Admin: 02/07/19 17:18 Dose: 15 mg Sertraline HCl (Zoloft -) 50 mg PO DAILY [facility] Last Admin: 02/08/19 10:21 Dose: 50 mg Silver Sulfadiazine (Silvadene -) 1 applic TP BID [facility] Last Admin: 02/08/19 10:22 Dose: 1 applic ASSESSMENT/PLAN: 73 yo F with a PMH of ESRD, Orthostatic Hypotension, CHF, DM, hypothyroid, COPD , Afib (on Xarelto), DVTs, Pulmonary Edema and multiple prior admissions for pneumonia admitted to the ICU for unresponsiveness secondary to acute hypercapneic respiratory failure and hypotension likely 2/2 dialysis. Acute on Chronic hypercapnic respiratory failure Sepsis ESRD HFrEF Hypothyroidism Anemia, thrombocytopenia LINES - L femoral central line placed 01/26, will need prolonged access due to difficulty in obtaining access elsewhere, stenosis centrally - R femoral Tesio catheter CARDIOLOGY Orthostatic hypotension likely 2/2 hemodialysis HFrEF Afib - on Levophed 6mcq this morning, currently BP stabilized with 4mcg will wean off pressors throughout the day maintaining MAP >50%. - previous echo 12/08/18 showing normal EF, moderate to severe right ventricle dilation, increased right ventricular systolic pressure. -repeat echo with LV function slightly worsened compared to prior, RV function is mod to severely reduced (stable) -repeat echo shows echodensity in pleural space - consider chest imaging per critical care -HD for volume management -C/w xarelto for A fib -continue to hold AV node blockers -c/w midodrine for bp support - Pt unable to tolerate BB at this time, will try low dose if can tolerate, once she is off pressors. -no ASA for now given pt on Xarelto with mild anemia/thrombocytopenia (and likely dysfunctional PLTs in HD pt), and high risk for bleeding at present -if she recovers from the acute illness will potentially reconsider above approach RESPIRATORY-> Acute on chronic hypercapneic respiratory failure 2/2 Sepsis - on NC, satting in mid 's. - albuterol nebulizer q6h prn RENAL-> ESRD - Nephrology (Dr. Molina) recs appreciated - HD yesterday - ultrafiltrate volume as tolerated - monitor lytes - renal diet - monitor bp INFECTIOUS DISEASE-> Septic shock - requiring pressors will wean levophed - c/w midodrine - hypotensive, no leukocytosis, afebrile - pt chronically hypotensive - hx of cdiff, cautious approach to continuing antibiotics - blood cxs negative -ID recs appreciated ENDOCRINE-> Hypothyroidism - continue home Synthroid - BGM q6h - ISS HEMATOLOGY-> Anemia/thrombocytopenia 2/2 Sepsis/ESRD - FOBT negative - Hgb stable 9.1, continuing to monitor if Hb < 7 will transfuse - thrombocytopenia improved, continue to monitor Vascular RUE edema - duplex US negative for thrombosis F/E/N - no standing fluids - continue to monitor electrolytes and replete as necessary, less aggressive hypokalemia and hypophospatemia replacement in setting of ESRD - dysphagia ground and nectar thick fluids. PROPHYLAXIS - c/w Xarelto CODE - full code DISPO - continuing to monitor on ICU. Visit type - Emergency Visit Emergency Visit: No - New Patient This patient is new to me today: No - Critical Care Critical Care patient: Yes Total Critical Care Time (in minutes): 37 Critical Care Statement: The care of this patient involved high complexity decision making to prevent further life threatening deterioration of the patient 's condition and/or to evaluate & treat vital organ system(s) failure or risk of failure. - Discharge Referral Referred to [facility] No ATTENDING PHYSICIAN STATEMENT I saw and evaluated the patient. I reviewed the resident's note and discussed the case with the resident. I agree with the resident's findings and plan as documented. SUBJECTIVE: OBJECTIVE: ASSESSMENT AND PLAN:
[2019-02-08] MEDS ORDERED: SODIUM CHLORIDE 250 ML IV PRN (14:17)
--- NOTE | 2019-02-08 14:17 | PN ---
Progress Note, Physician History of Present Illness: Pt seen and examined at bedside. She is awake and alert. She feels that her breathing is improved. - Current Medication List Current Medications: Active Medications Acetaminophen (Tylenol -) 650 mg PO Q4H PRN PRN Reason: PAIN LEVEL 1 - 3 Last Admin: 02/08/19 10:21 Dose: 650 mg Amino Acids (Prosource No Carb Liquid Pkt) 30 ml PO BID@0800,1730 [facility] Last Admin: 02/08/19 10:20 Dose: 30 ml Collagenase (Santyl -) 1 applic TP DAILY [facility]; Protocol Last Admin: 02/08/19 10:22 Dose: 1 applic Norepinephrine Bitartrate 8, (000 mcg/ Dextrose) 500 mls @ 18.75 mls/hr IV TITR [facility]; Protocol Last Admin: 02/08/19 11:00 Dose: 4 mcg/min, 15 mls/hr Insulin Aspart (Novolog Vial Sliding Scale -) 1 vial SQ ACHS [facility]; Protocol Last Admin: 02/08/19 11:50 Dose: Not Given Levothyroxine Sodium (Synthroid -) 50 mcg PO DAILY@0700 [facility] Last Admin: 02/08/19 06:23 Dose: 50 mcg Lidocaine/Prilocaine (Emla -) 1 applic TP QID PRN PRN Reason: HEMORRHOIDS Melatonin (Melatonin) 10 mg PO HS [facility] Last Admin: 02/07/19 22:24 Dose: 10 mg Midodrine (Proamatine -) 10 mg PO TID-MID [facility] Last Admin: 02/08/19 13:59 Dose: 10 mg Multivit/Ca Carb/B Cmplx/FA/Prenat (Nephro-Evert -) 1 tablet PO DAILY [facility] Last Admin: 02/08/19 10:20 Dose: 1 tablet Nystatin (Mycostatin Ointment -) 1 applic TP BID [facility] Last Admin: 02/08/19 10:20 Dose: 1 applic Ondansetron HCl (Zofran -) 4 mg PO Q6H PRN PRN Reason: NAUSEA AND/OR VOMITING Pantoprazole Sodium (Protonix Iv) 40 mg IVPUSH DAILY [facility] Last Admin: 02/08/19 10:20 Dose: 40 mg Rivaroxaban (Xarelto) 15 mg PO DAILY@1800 [facility] Last Admin: 02/07/19 17:18 Dose: 15 mg Sertraline HCl (Zoloft -) 50 mg PO DAILY [facility] Last Admin: 02/08/19 10:21 Dose: 50 mg Silver Sulfadiazine (Silvadene -) 1 applic TP BID [facility] Last Admin: 02/08/19 10:22 Dose: 1 applic - Objective Vital Signs: Vital Signs Temperature 97.4 F L 02/08/19 06:00 Pulse Rate 93 H 02/08/19 11:00 Respiratory Rate 20 02/08/19 09:00 Blood Pressure 88/45 L 02/08/19 11:00 O2 Sat by Pulse Oximetry (%) 100 02/08/19 09:00 Constitutional: Yes: Calm Eyes: Yes: Conjunctiva Clear HENT: Yes: Atraumatic Neck: Yes: Supple Cardiovascular: Yes: S1, S2 Respiratory: Yes: On Nasal O2 Gastrointestinal: Yes: Soft Genitourinary: Yes: WNL Musculoskeletal: Yes: WNL Edema: Yes Edema: LUE: Trace, RUE: Trace, LLE: Trace, RLE: Trace Neurological: Yes: Oriented Psychiatric: Yes: Oriented Labs: CBC, BMP 02/08/19 05:40 02/08/19 05:40 INR, PTT INR 1.76 (0.83-1.09) H 01/27/19 05:45 Problem List - Problems (1) Acute respiratory failure Code(s): J96.00 - ACUTE RESPIRATORY FAILURE, UNSP W HYPOXIA OR HYPERCAPNIA Qualifiers: Respiratory failure complication: hypoxia Qualified Code(s): J96.01 - Acute respiratory failure with hypoxia (2) ESRD on hemodialysis Code(s): N18.6 - END STAGE RENAL DISEASE; Z99.2 - DEPENDENCE ON RENAL DIALYSIS Assessment/Plan Current Medications Generic Name Dose Route Start Last Admin Trade Name Freq PRN Reason Stop Dose Admin Acetaminophen 650 mg 02/05/19 23:36 02/08/19 10:21 Tylenol - PO 650 mg Q4H PRN Administration PAIN LEVEL 1 - 3 Amino Acids 30 ml 01/31/19 17:30 02/08/19 10:20 Prosource No Carb Liquid Pkt PO 30 ml BID@0800,1730 [facility] Administration Collagenase 1 applic 02/02/19 10:15 02/08/19 10:22 Santyl - TP 1 applic DAILY [facility] Administration Protocol Norepinephrine Bitartrate 8, 500 mls @ 18.75 mls/hr 02/08/19 10:50 02/08/19 11:00 000 mcg/ Dextrose IV 4 mcg/min TITR [facility] 15 mls/hr Administration Protocol 5 MCG/MIN Insulin Aspart 1 vial 02/05/19 07:00 02/08/19 11:50 Novolog Vial Sliding Scale - SQ Not Given ACHS [facility] Protocol Levothyroxine Sodium 50 mcg 01/27/19 07:00 02/08/19 06:23 Synthroid - PO 50 mcg DAILY@0700 [facility] Administration Lidocaine/Prilocaine 1 applic 01/27/19 01:55 Emla - TP QID PRN HEMORRHOIDS Melatonin 10 mg 02/06/19 22:00 02/07/19 22:24 Melatonin PO 10 mg HS [facility] Administration Midodrine 10 mg 01/27/19 14:30 02/08/19 13:59 Proamatine - PO 10 mg TID-MID [facility] Administration Multivit/Ca Carb/B Cmplx/FA/Prenat 1 tablet 01/27/19 10:00 02/08/19 10:20 Nephro-Evert - PO 1 tablet DAILY [facility] Administration Nystatin 1 applic 01/27/19 22:00 02/08/19 10:20 Mycostatin Ointment - TP 1 applic BID [facility] Administration Ondansetron HCl 4 mg 01/27/19 01:57 Zofran - PO Q6H PRN NAUSEA AND/OR VOMITING Pantoprazole Sodium 40 mg 01/31/19 10:00 02/08/19 10:20 Protonix Iv IVPUSH 40 mg DAILY [facility] Administration Rivaroxaban 15 mg 01/27/19 18:00 02/07/19 17:18 Xarelto PO 15 mg DAILY@1800 [facility] Administration Sertraline HCl 50 mg 01/27/19 10:00 02/08/19 10:21 Zoloft - PO 50 mg DAILY [facility] Administration Silver Sulfadiazine 1 applic 01/27/19 10:00 02/08/19 10:22 Silvadene - TP 1 applic BID [facility] Administration Impression 1. ESRD 2. change in mental status 3. resp failure requiring intubation 4. chf 5. dvt 6. anemia 7. a-fib 8. hypothyroid 9. pleural effusion Plan - will arrange for HD tomorrow - renal diet - fluid restriction - monitor bp - HD right thigh cath, 3 k bath, 3 15 time, 400 abf
--- NOTE | 2019-02-08 15:52 | PN ---
Progress Note, TOOL SETTER - Note Progress Note: Patient is verbal, intermittently confused. Seen having lunch, fed by nursing. Patient is tolerating her diet well and has a good appetite.
[2019-02-08] MEDS: RIVAROXABAN 15 MG TABLET PO SCH (18:21)
[2019-02-08] MEDS: MELATONIN 5 MG TABLETS PO SCH (21:44)
[2019-02-09 05:48] LABS: HEMATOCRIT 28.2 % (32.4-45.2); MCH 30.7 pg (25.7-33.7); MEAN CELL VOLUME 95.9 fl (80-96); PLATELET COUNT 257 K/MM3 (134-434); RBC 2.94 M/mm3 (3.60-5.2); RDW 19.4 % (11.6-15.6); WHITE BLOOD COUNT 4.6 K/mm3 (4.0-10.0)
[2019-02-09 06:13] LABS: BLOOD UREA NITROGEN 29.6 mg/dL (7-18); CALCIUM 8.3 mg/dL (8.5-10.1); POTASSIUM 4.4 mmol/L (3.5-5.1)
[2019-02-09] MEDS: LEVOTHYROXINE NA 50 MCG TABLET (FP) PO SCH (06:21)
[2019-02-09] MEDS: INSULIN SLIDING SCALE (NOVOLOG) 1 VIAL SQ SCH ×4 (06:52→22:15)
[2019-02-09] MEDS ORDERED: SODIUM CHLORIDE 250 ML IV PRN (07:15)
[2019-02-09] MEDS: NOREPINEPHRINE BITARTRATE 8,000 MCG in DEXTROSE 5%-WATER - 492 ML IV SCH (08:00)
[2019-02-09] MEDS: ALBUMIN HUMAN 25% 12.5 GM/50 ML VIAL IVPB SCH ×4 (08:30→10:00)
[2019-02-09] MEDS ORDERED: EPOETIN ALFA 10,000 UNIT/1 ML VIAL IVPUSH ONE (09:00)
[2019-02-09] MEDS: AMINO ACIDS/PROTEIN HYDROLYS 30 ML LIQUID.PKT PO SCH ×2 (09:30→18:26)
--- NOTE | 2019-02-09 10:17 | PN ---
Progress Note (short form) - Note Progress Note: no chest pain, palps, dizziness Current Medications Acetaminophen (Tylenol -) 650 mg PO Q4H PRN PRN Reason: PAIN LEVEL 1 - 3 Last Admin: 02/08/19 23:32 Dose: 650 mg Amino Acids (Prosource No Carb Liquid Pkt) 30 ml PO BID@0800,1730 [facility] Last Admin: 02/08/19 18:21 Dose: 30 ml Collagenase (Santyl -) 1 applic TP DAILY [facility]; Protocol Last Admin: 02/08/19 10:22 Dose: 1 applic Norepinephrine Bitartrate 8, (000 mcg/ Dextrose) 500 mls @ 18.75 mls/hr IV TITR [facility]; Protocol Last Titration: 02/08/19 18:00 Dose: 4 mcg/min, 15 mls/hr Sodium Chloride (Normal Saline -) 250 mls @ 3,000 mls/hr IV PRN PRN PRN Reason: Hypotension during Dialysis Insulin Aspart (Novolog Vial Sliding Scale -) 1 vial SQ ACHS [facility]; Protocol Last Admin: 02/09/19 06:52 Dose: Not Given Levothyroxine Sodium (Synthroid -) 50 mcg PO DAILY@0700 [facility] Last Admin: 02/09/19 06:21 Dose: 50 mcg Lidocaine/Prilocaine (Emla -) 1 applic TP QID PRN PRN Reason: HEMORRHOIDS Melatonin (Melatonin) 10 mg PO HS [facility] Last Admin: 02/08/19 21:44 Dose: 10 mg Midodrine (Proamatine -) 10 mg PO TID-MID [facility] Last Admin: 02/08/19 18:20 Dose: 10 mg Multivit/Ca Carb/B Cmplx/FA/Prenat (Nephro-Evert -) 1 tablet PO DAILY [facility] Last Admin: 02/08/19 10:20 Dose: 1 tablet Nystatin (Mycostatin Ointment -) 1 applic TP BID [facility] Last Admin: 02/08/19 21:44 Dose: 1 applic Ondansetron HCl (Zofran -) 4 mg PO Q6H PRN PRN Reason: NAUSEA AND/OR VOMITING Pantoprazole Sodium (Protonix Iv) 40 mg IVPUSH DAILY [facility] Last Admin: 02/08/19 10:20 Dose: 40 mg Rivaroxaban (Xarelto) 15 mg PO DAILY@1800 [facility] Last Admin: 02/08/19 18:21 Dose: 15 mg Sertraline HCl (Zoloft -) 50 mg PO DAILY [facility] Last Admin: 02/08/19 10:21 Dose: 50 mg Silver Sulfadiazine (Silvadene -) 1 applic TP BID [facility] Last Admin: 02/08/19 21:45 Dose: 1 applic Vital Signs Period Temp Pulse Resp BP Sys/Jhaveri Pulse Ox Last 24 Hr 97.6 F-97.8 F 9-101 10-24 72-116/45-73 100-100 Cardiovascular: Yes: Pulse Irregular Respiratory: Yes: Other (= breath sounds b/l; no active) Gastrointestinal: Yes: Soft Edema: Yes Edema: LLE: 1+, RLE: 1+ no jaundice, diaphoresis not agitated - ....Imaging EKG: Image Reviewed Assessment/Plan Data Echo 12/01: nl LV function, RV mod to severely dilated, RV function mod to severely reduced, mod dilated LA/RA, RVSP 40-50 mmHg, mod TR Echo 01/2019 - LV function slightly worsened, 45-50%, LA mod dilated, RV mod to severely dilated, tr AR, RV function mod to severely reduced, mild MR, mild to mod TR, RA mod to severely dilated, mobile echodensity in pleural space tele: afib, rate controlled IMP: Acute on chronic hypoxic/hypercapneic respiratory failure at HD, with bradycardia (40s-50s) Possible RLL PNA, sepsis NSTEMI (troponin to 2): most likely Type II secondary to acute strain from CHF/ pulm HTN and acute resp failure, vs sec to hypotension Septic shock on Levophed, doubt cardiogenic shock HFpEF, pulmonary HTN, RV dysfunction ESRD on HD h/o DVT /PE on AC REC: -now extubated -wean levophed to maintain MAP 55 mmHg -repeat echo with LV function slightly worsened compared to prior, RV function is mod to severely reduced (stable) -repeat echo also shows echodensity in pleural space - consider chest imaging per critical care -HD as per renal for volume management -Cont xarelto (anemia, PLTs stable) -hold AVN blockers --> HRs ok -cont midodrine for bp support at HD -will defer ischemia evaluation as this will not climate change risk assessor. She is at prohibitive risk for invasive tx strategy given extremely poor functional status with severe comorbidities at present. Will not tolerate signif b-blockade , though will try to give low dose if can tolerate, once she is off pressors. -no ASA for now given pt on Xarelto with mild anemia/thrombocytopenia (and likely dysfunctional PLTs in HD pt), and hi risk for bleeding at present -if she recovers from the acute illness will potentially reconsider above approach
--- NOTE | 2019-02-09 10:24 | PN ---
Progress Note, Physician Chief Complaint: HD IN PROGRESS IN ICU NO ALARMS OR EVENTS OVERNIGHT - Current Medication List Current Medications: Active Medications Acetaminophen (Tylenol -) 650 mg PO Q4H PRN PRN Reason: PAIN LEVEL 1 - 3 Last Admin: 02/08/19 23:32 Dose: 650 mg Amino Acids (Prosource No Carb Liquid Pkt) 30 ml PO BID@0800,1730 [facility] Last Admin: 02/08/19 18:21 Dose: 30 ml Collagenase (Santyl -) 1 applic TP DAILY [facility]; Protocol Last Admin: 02/08/19 10:22 Dose: 1 applic Norepinephrine Bitartrate 8, (000 mcg/ Dextrose) 500 mls @ 18.75 mls/hr IV TITR [facility]; Protocol Last Titration: 02/08/19 18:00 Dose: 4 mcg/min, 15 mls/hr Sodium Chloride (Normal Saline -) 250 mls @ 3,000 mls/hr IV PRN PRN PRN Reason: Hypotension during Dialysis Insulin Aspart (Novolog Vial Sliding Scale -) 1 vial SQ ACHS [facility]; Protocol Last Admin: 02/09/19 06:52 Dose: Not Given Levothyroxine Sodium (Synthroid -) 50 mcg PO DAILY@0700 [facility] Last Admin: 02/09/19 06:21 Dose: 50 mcg Lidocaine/Prilocaine (Emla -) 1 applic TP QID PRN PRN Reason: HEMORRHOIDS Melatonin (Melatonin) 10 mg PO HS [facility] Last Admin: 02/08/19 21:44 Dose: 10 mg Midodrine (Proamatine -) 10 mg PO TID-MID [facility] Last Admin: 02/08/19 18:20 Dose: 10 mg Multivit/Ca Carb/B Cmplx/FA/Prenat (Nephro-Evert -) 1 tablet PO DAILY [facility] Last Admin: 02/08/19 10:20 Dose: 1 tablet Nystatin (Mycostatin Ointment -) 1 applic TP BID [facility] Last Admin: 02/08/19 21:44 Dose: 1 applic Ondansetron HCl (Zofran -) 4 mg PO Q6H PRN PRN Reason: NAUSEA AND/OR VOMITING Pantoprazole Sodium (Protonix Iv) 40 mg IVPUSH DAILY [facility] Last Admin: 02/08/19 10:20 Dose: 40 mg Rivaroxaban (Xarelto) 15 mg PO DAILY@1800 [facility] Last Admin: 02/08/19 18:21 Dose: 15 mg Sertraline HCl (Zoloft -) 50 mg PO DAILY [facility] Last Admin: 02/08/19 10:21 Dose: 50 mg Silver Sulfadiazine (Silvadene -) 1 applic TP BID [facility] Last Admin: 02/08/19 21:45 Dose: 1 applic - Objective Vital Signs: Vital Signs Temperature 97.8 F 02/08/19 17:00 Pulse Rate 98 H 02/09/19 10:13 Respiratory Rate 20 02/09/19 10:13 Blood Pressure 116/64 02/09/19 10:13 O2 Sat by Pulse Oximetry (%) 100 02/08/19 21:00 Constitutional: Yes: No Distress Cardiovascular: Yes: Pulse Irregular Respiratory: Yes: On Nasal O2 Gastrointestinal: Yes: Soft Genitourinary: Yes: Other Musculoskeletal: Yes: Muscle Weakness Edema: No Integumentary: Yes: Other Neurological: Yes: Pre-Existing Deficit Labs: CBC, BMP 02/09/19 05:15 02/09/19 05:15 INR, PTT INR 1.76 (0.83-1.09) H 01/27/19 05:45 Problem List - Problems (1) Acute respiratory failure Code(s): J96.00 - ACUTE RESPIRATORY FAILURE, UNSP W HYPOXIA OR HYPERCAPNIA Qualifiers: Qualified Code(s): J96.01 - Acute respiratory failure with hypoxia (2) ESRD on hemodialysis Code(s): N18.6 - END STAGE RENAL DISEASE; Z99.2 - DEPENDENCE ON RENAL DIALYSIS (3) Hypotension Code(s): I95.9 - HYPOTENSION, UNSPECIFIED Qualifiers: Qualified Code(s): I95.9 - Hypotension, unspecified (4) Acute exacerbation of congestive heart failure Code(s): I50.9 - HEART FAILURE, UNSPECIFIED (5) Acute on chronic respiratory failure with hypoxia and hypercapnia Code(s): J96.21 - ACUTE AND CHRONIC RESPIRATORY FAILURE WITH HYPOXIA; J96.22 - ACUTE AND CHRONIC RESPIRATORY FAILURE WITH HYPERCAPNIA (6) Afib Code(s): I48.91 - UNSPECIFIED ATRIAL FIBRILLATION (7) Functional quadriplegia Code(s): R53.2 - FUNCTIONAL QUADRIPLEGIA (8) H/O deep venous thrombosis Code(s): Z86.718 - PERSONAL HISTORY OF OTHER VENOUS THROMBOSIS AND EMBOLISM (9) Hypothyroid Code(s): E03.9 - HYPOTHYROIDISM, UNSPECIFIED Assessment/Plan WEAN OFF 6MCH NOREPINEPHRINE TAPER SLOWLY HD PER RENAL DC PLANNING WHEN BED AVAILABLE
--- NOTE | 2019-02-09 10:26 | PN ---
Teaching Attending Note Name of Resident: Hiren Liz ATTENDING PHYSICIAN STATEMENT I saw and evaluated the patient. I reviewed the resident's note and discussed the case with the resident. I agree with the resident's findings and plan as documented. SUBJECTIVE: Pt seen and examined in the ICU. Remains on levophed gtt support. Currently receiving HD. Mentating well. No fevers recorded. OBJECTIVE: Vital Signs Period Temp Pulse Resp BP Sys/Jhaveri Pulse Ox Last 24 Hr 97.6 F-97.8 F 9-101 10-24 72-116/45-73 100-100 Intake & Output 02/06/19 02/07/19 02/08/19 02/09/19 23:59 23:59 23:59 23:59 Intake Total 778 774 637.5 200 Output Total 0 3000 Balance 778 -2226 637.5 200 Weight 84.323 kg 83.3 kg 85.139 kg Gen: mildly tachypneic at rest Heart: RRR Lung: decreased breath sounds at the bases Abd: soft, nontender Ext: no edema CBC, BMP 02/09/19 05:15 02/09/19 05:15 Active Medications Acetaminophen (Tylenol -) 650 mg PO Q4H PRN PRN Reason: PAIN LEVEL 1 - 3 Last Admin: 02/08/19 23:32 Dose: 650 mg Amino Acids (Prosource No Carb Liquid Pkt) 30 ml PO BID@0800,1730 [facility] Last Admin: 02/08/19 18:21 Dose: 30 ml Collagenase (Santyl -) 1 applic TP DAILY [facility]; Protocol Last Admin: 02/08/19 10:22 Dose: 1 applic Norepinephrine Bitartrate 8, (000 mcg/ Dextrose) 500 mls @ 18.75 mls/hr IV TITR [facility]; Protocol Last Titration: 02/08/19 18:00 Dose: 4 mcg/min, 15 mls/hr Sodium Chloride (Normal Saline -) 250 mls @ 3,000 mls/hr IV PRN PRN PRN Reason: Hypotension during Dialysis Insulin Aspart (Novolog Vial Sliding Scale -) 1 vial SQ ACHS [facility]; Protocol Last Admin: 02/09/19 06:52 Dose: Not Given Levothyroxine Sodium (Synthroid -) 50 mcg PO DAILY@0700 [facility] Last Admin: 02/09/19 06:21 Dose: 50 mcg Lidocaine/Prilocaine (Emla -) 1 applic TP QID PRN PRN Reason: HEMORRHOIDS Melatonin (Melatonin) 10 mg PO HS [facility] Last Admin: 02/08/19 21:44 Dose: 10 mg Midodrine (Proamatine -) 10 mg PO TID-MID [facility] Last Admin: 02/08/19 18:20 Dose: 10 mg Multivit/Ca Carb/B Cmplx/FA/Prenat (Nephro-Evert -) 1 tablet PO DAILY [facility] Last Admin: 02/08/19 10:20 Dose: 1 tablet Nystatin (Mycostatin Ointment -) 1 applic TP BID [facility] Last Admin: 02/08/19 21:44 Dose: 1 applic Ondansetron HCl (Zofran -) 4 mg PO Q6H PRN PRN Reason: NAUSEA AND/OR VOMITING Pantoprazole Sodium (Protonix Iv) 40 mg IVPUSH DAILY [facility] Last Admin: 02/08/19 10:20 Dose: 40 mg Rivaroxaban (Xarelto) 15 mg PO DAILY@1800 [facility] Last Admin: 02/08/19 18:21 Dose: 15 mg Sertraline HCl (Zoloft -) 50 mg PO DAILY [facility] Last Admin: 02/08/19 10:21 Dose: 50 mg Silver Sulfadiazine (Silvadene -) 1 applic TP BID [facility] Last Admin: 02/08/19 21:45 Dose: 1 applic ASSESSMENT AND PLAN: Acute on Chronic Hypoxic and Hypercapneic Respiratory Failure improving r/o Pneumonia Shock likely Septic r/o Autonomic Dysfunction Volume Overload ESRD on HD +Troponins likely Demand Ischemia Pulmonary HTN h/o PE/DVT - completed antibiotics - taper pressors to maintain MAP >55 - continue midodrine - HD per renal with ultrafiltration - taper FiO2 to keep SpO2 >90% - continue anticoagulation - DVT/GI prophylaxis - continue ICU monitoring while on pressors critical care time spent in reviewing chart, evaluating patient and formulating plan 35 min
[2019-02-09] MEDS ORDERED: PT OWN MED DRAWER 7, Y5N ONE ×2 (11:19→19:55)
[2019-02-09] MEDS: SERTRALINE HCL 50 MG TABLET (FP) PO SCH (11:30)
[2019-02-09] MEDS: NYSTATIN 100000 UNIT/GM TOPICAL OINTMENT 15 GM TUBE TP SCH ×2 (11:30→21:04)
[2019-02-09] MEDS: MIDODRINE HCL 5 MG TABLET PO SCH ×3 (11:30→18:26)
[2019-02-09] MEDS: COLLAGENASE CLOSTRIDIUM HIST. 30 GRAMS TUBE TP SCH (11:30)
[2019-02-09] MEDS: SILVER SULFADIAZINE 1% TOP CREAM 400 GM JAR TP SCH ×2 (11:30→21:04)
[2019-02-09] MEDS: PANTOPRAZOLE SODIUM 40 MG VIAL IVPUSH SCH (11:30)
[2019-02-09] MEDS: VITAMIN B COMP W-C 1 EA TABLET PO SCH (11:30)
--- NOTE | 2019-02-09 13:19 | PN ---
Physical Exam: SUBJECTIVE: Patient seen and examined at bedside this AM. She was receiving dialysis. OBJECTIVE: Vital Signs Period Temp Pulse Resp BP Sys/Jhaveri Pulse Ox Last 24 Hr 97.8 F 9-101 10-24 72-116/45-73 100-100 GENERAL: The patient is awake, alert, intermittently oriented, in no acute distress. HEAD: Normal with no signs of trauma. NECK: supple. LUNGS: Breath sounds decreased b/l, no wheezing appreciated. HEART: Regular rate and rhythm, S1, S2 without murmur, rub or gallop. ABDOMEN: Soft, nontender, nondistended, hypoactive bowel sounds, no guarding, no rebound. EXTREMITIES: warm, well-perfused, RUE edema, no edema b/l LE's. NEUROLOGICAL: Normal speech, gait not observed. PSYCH: Normal mood, normal affect. SKIN: Warm, dry, no rashes or lesions noted Laboratory Results - last 24 hr 02/08/19 02/08/19 02/09/19 18:04 22:02 05:15 WBC RBC Hgb Hct MCV MCH MCHC RDW Plt Count MPV Sodium 135 L Potassium 4.4 Chloride 98 Carbon Dioxide 28 Anion Gap 9 BUN 29.6 H Creatinine 3.0 H Est GFR (CKD-EPI)AfAm 17.39 Est GFR (CKD-EPI)NonAf 15.01 POC Glucometer 137 158 Random Glucose 122 H Calcium 8.3 L 02/09/19 02/09/19 05:15 12:09 WBC 4.6 RBC 2.94 L Hgb 9.0 L Hct 28.2 L MCV 95.9 MCH 30.7 MCHC 32.0 RDW 19.4 H Plt Count 257 MPV 8.0 Sodium Potassium Chloride Carbon Dioxide Anion Gap BUN Creatinine Est GFR (CKD-EPI)AfAm Est GFR (CKD-EPI)NonAf POC Glucometer 176 Random Glucose Calcium Active Medications Generic Name Dose Route Start Last Admin Trade Name Freq PRN Reason Stop Dose Admin Acetaminophen 650 mg 02/05/19 23:36 02/08/19 23:32 Tylenol - PO 650 mg Q4H PRN Administration PAIN LEVEL 1 - 3 Amino Acids 30 ml 01/31/19 17:30 02/09/19 09:30 Prosource No Carb Liquid Pkt PO 30 ml BID@0800,1730 NAHEED Administration Collagenase 1 applic 02/02/19 10:15 02/09/19 11:30 Santyl - TP 1 applic DAILY NAHEED Administration Protocol Norepinephrine Bitartrate 8, 500 mls @ 18.75 mls/hr 02/08/19 10:50 02/09/19 08:00 000 mcg/ Dextrose IV 6 mcg/min TITR NAHEED 22.5 mls/hr Administration Protocol 5 MCG/MIN Sodium Chloride 250 mls @ 3,000 mls/hr 02/09/19 07:15 Normal Saline - IV PRN PRN Hypotension during Dialysis Insulin Aspart 1 vial 02/05/19 07:00 02/09/19 12:15 Novolog Vial Sliding Scale - SQ 2 units ACHS NAHEED Administration Protocol Levothyroxine Sodium 50 mcg 01/27/19 07:00 02/09/19 06:21 Synthroid - PO 50 mcg DAILY@0700 NA[facility]ED Administration Lidocaine/Prilocaine 1 applic 01/27/19 01:55 Emla - TP QID PRN HEMORRHOIDS Melatonin 10 mg 02/06/19 22:00 02/08/19 21:44 Melatonin PO 10 mg HS NAHEED Administration Midodrine 10 mg 01/27/19 14:30 02/09/19 11:30 Proamatine - PO 10 mg TID-MID NAHEED Administration Multivit/Ca Carb/B Cmplx/FA/Prenat 1 tablet 01/27/19 10:00 02/09/19 11:30 Nephro-Evert - PO 1 tablet DAILY NAHEED Administration Nystatin 1 applic 01/27/19 22:00 02/09/19 11:30 Mycostatin Ointment - TP 1 applic BID NAHEED Administration Ondansetron HCl 4 mg 01/27/19 01:57 Zofran - PO Q6H PRN NAUSEA AND/OR VOMITING Pantoprazole Sodium 40 mg 01/31/19 10:00 02/09/19 11:30 Protonix Iv IVPUSH 40 mg DAILY NAHEED Administration Rivaroxaban 15 mg 01/27/19 18:00 02/08/19 18:21 Xarelto PO 15 mg DAILY@1800 NAHEED Administration Sertraline HCl 50 mg 01/27/19 10:00 02/09/19 11:30 Zoloft - PO 50 mg DAILY NAHEED Administration Silver Sulfadiazine 1 applic 01/27/19 10:00 02/09/19 11:30 Silvadene - TP 1 applic BID NAHEED Administration ASSESSMENT/PLAN: This is a 73 yo F with a PMH of ESRD, Orthostatic Hypotension, CHF, DM, hypothyroid, COPD, Afib (on Xarelto), DVTs, Pulmonary Edema and multiple prior admissions for pneumonia admitted to the ICU for unresponsiveness secondary to acute hypercapneic respiratory failure and hypotension likely 2/2 dialysis. LINES - L femoral central line placed 01/26, will need prolonged access due to difficulty in obtaining access elsewhere, stenosis centrally - R femoral Tesio catheter CARDIOLOGY-> Orthostatic hypotension likely 2/2 hemodialysisHFrEF/AF - increased Levophed to 6mcq this morning during dialysis, spoke w nurse to titrate down after dialysis as tolerated maintaining MAP >50-55%. -HD for volume management -C/w xarelto for Afib -continue to hold AV node blockers -c/w midodrine for bp support - will try low dose BB if can tolerate once she is off pressors. -no ASA for now given pt on Xarelto with mild anemia and high risk for bleeding at present time. -if she recovers from the acute illness will potentially reconsider above approach RESPIRATORY-> Acute on chronic hypercapneic respiratory failure 2/2 Sepsis - on NC, satting in mid 's. - albuterol nebulizer q6h prn RENAL-> ESRD - Nephrology (Dr. Molina) recs appreciated - HD yesterday - ultrafiltrate volume as tolerated - monitor lytes - renal diet - monitor bp INFECTIOUS DISEASE-> Septic shock - will wean levophed - c/w midodrine - hypotensive, no leukocytosis, afebrile - pt chronically hypotensive - c diff hx - blood cxs negative - continuing to monitor off abx ENDOCRINE-> Hypothyroidism - continue home Synthroid - BGM q6h - ISS HEMATOLOGY-> Anemia/thrombocytopenia 2/2 Sepsis/ESRD - FOBT negative - Hgb stable 9.1, continuing to monitor if Hb < 7 will transfuse - thrombocytopenia improved to normal, continuing to monitor Vascular RUE edema - duplex US negative for thrombosis F/E/N - no standing fluids - continue to monitor electrolytes and replete as necessary, less aggressive hypokalemia and hypophospatemia replacement in setting of ESRD - dysphagia ground and nectar thick fluids. PROPHYLAXIS - c/w Xarelto CODE - full code DISPO - continuing to monitor on ICU. Visit type - Emergency Visit Emergency Visit: Yes ED Registration Date: 01/26/19 Care time: The patient presented to the Emergency Department on the above date and was hospitalized for further evaluation of their emergent condition. - New Patient This patient is new to me today: No - Critical Care Critical Care patient: Yes Total Critical Care Time (in minutes): 35 Critical Care Statement: The care of this patient involved high complexity decision making to prevent further life threatening deterioration of the patient 's condition and/or to evaluate & treat vital organ system(s) failure or risk of failure. ATTENDING PHYSICIAN STATEMENT I saw and evaluated the patient. I reviewed the resident's note and discussed the case with the resident. I agree with the resident's findings and plan as documented. SUBJECTIVE: OBJECTIVE: ASSESSMENT AND PLAN:
--- NOTE | 2019-02-09 13:36 | PN ---
Progress Note, Physician History of Present Illness: Pt seen adn examined at bedside. She tolerated HD today. She feels that her breathing is improved. - Current Medication List Current Medications: Active Medications Acetaminophen (Tylenol -) 650 mg PO Q4H PRN PRN Reason: PAIN LEVEL 1 - 3 Last Admin: 02/08/19 23:32 Dose: 650 mg Amino Acids (Prosource No Carb Liquid Pkt) 30 ml PO BID@0800,1730 [facility] Last Admin: 02/09/19 09:30 Dose: 30 ml Collagenase (Santyl -) 1 applic TP DAILY [facility]; Protocol Last Admin: 02/09/19 11:30 Dose: 1 applic Norepinephrine Bitartrate 8, (000 mcg/ Dextrose) 500 mls @ 18.75 mls/hr IV TITR [facility]; Protocol Last Admin: 02/09/19 08:00 Dose: 6 mcg/min, 22.5 mls/hr Sodium Chloride (Normal Saline -) 250 mls @ 3,000 mls/hr IV PRN PRN PRN Reason: Hypotension during Dialysis Insulin Aspart (Novolog Vial Sliding Scale -) 1 vial SQ ACHS [facility]; Protocol Last Admin: 02/09/19 12:15 Dose: 2 units Levothyroxine Sodium (Synthroid -) 50 mcg PO DAILY@0700 [facility] Last Admin: 02/09/19 06:21 Dose: 50 mcg Lidocaine/Prilocaine (Emla -) 1 applic TP QID PRN PRN Reason: HEMORRHOIDS Melatonin (Melatonin) 10 mg PO HS [facility] Last Admin: 02/08/19 21:44 Dose: 10 mg Midodrine (Proamatine -) 10 mg PO TID-MID [facility] Last Admin: 02/09/19 11:30 Dose: 10 mg Multivit/Ca Carb/B Cmplx/FA/Prenat (Nephro-Evert -) 1 tablet PO DAILY [facility] Last Admin: 02/09/19 11:30 Dose: 1 tablet Nystatin (Mycostatin Ointment -) 1 applic TP BID [facility] Last Admin: 02/09/19 11:30 Dose: 1 applic Ondansetron HCl (Zofran -) 4 mg PO Q6H PRN PRN Reason: NAUSEA AND/OR VOMITING Pantoprazole Sodium (Protonix Iv) 40 mg IVPUSH DAILY [facility] Last Admin: 02/09/19 11:30 Dose: 40 mg Rivaroxaban (Xarelto) 15 mg PO DAILY@1800 [facility] Last Admin: 02/08/19 18:21 Dose: 15 mg Sertraline HCl (Zoloft -) 50 mg PO DAILY [facility] Last Admin: 02/09/19 11:30 Dose: 50 mg Silver Sulfadiazine (Silvadene -) 1 applic TP BID [facility] Last Admin: 02/09/19 11:30 Dose: 1 applic - Objective Vital Signs: Vital Signs Temperature 97.8 F 02/08/19 17:00 Pulse Rate 98 H 02/09/19 10:13 Respiratory Rate 20 02/09/19 10:13 Blood Pressure 116/64 02/09/19 10:13 O2 Sat by Pulse Oximetry (%) 100 02/08/19 21:00 Constitutional: Yes: Calm Eyes: Yes: Conjunctiva Clear HENT: Yes: Atraumatic Neck: Yes: Supple Cardiovascular: Yes: S1, S2 Respiratory: Yes: On Nasal O2 Gastrointestinal: Yes: Soft Genitourinary: Yes: Incontinence Musculoskeletal: Yes: Muscle Weakness Edema: LUE: Trace, RUE: Trace, LLE: Trace, RLE: Trace Neurological: Yes: Oriented Psychiatric: Yes: Oriented Labs: CBC, BMP 02/09/19 05:15 02/09/19 05:15 INR, PTT INR 1.76 (0.83-1.09) H 01/27/19 05:45 Problem List - Problems (1) Acute respiratory failure Code(s): J96.00 - ACUTE RESPIRATORY FAILURE, UNSP W HYPOXIA OR HYPERCAPNIA Qualifiers: Respiratory failure complication: hypoxia Qualified Code(s): J96.01 - Acute respiratory failure with hypoxia (2) ESRD on hemodialysis Code(s): N18.6 - END STAGE RENAL DISEASE; Z99.2 - DEPENDENCE ON RENAL DIALYSIS Assessment/Plan Current Medications Generic Name Dose Route Start Last Admin Trade Name Freq PRN Reason Stop Dose Admin Acetaminophen 650 mg 02/05/19 23:36 02/08/19 23:32 Tylenol - PO 650 mg Q4H PRN Administration PAIN LEVEL 1 - 3 Amino Acids 30 ml 01/31/19 17:30 02/09/19 09:30 Prosource No Carb Liquid Pkt PO 30 ml BID@0800,1730 [facility] Administration Collagenase 1 applic 02/02/19 10:15 02/09/19 11:30 Santyl - TP 1 applic DAILY NAHEED Administration Protocol Norepinephrine Bitartrate 8, 500 mls @ 18.75 mls/hr 02/08/19 10:50 02/09/19 08:00 000 mcg/ Dextrose IV 6 mcg/min TITR NAHEED 22.5 mls/hr Administration Protocol 5 MCG/MIN Sodium Chloride 250 mls @ 3,000 mls/hr 02/09/19 07:15 Normal Saline - IV PRN PRN Hypotension during Dialysis Insulin Aspart 1 vial 02/05/19 07:00 02/09/19 12:15 Novolog Vial Sliding Scale - SQ 2 units ACHS NAHEED Administration Protocol Levothyroxine Sodium 50 mcg 01/27/19 07:00 02/09/19 06:21 Synthroid - PO 50 mcg DAILY@0700 NAHEED Administration Lidocaine/Prilocaine 1 applic 01/27/19 01:55 Emla - TP QID PRN HEMORRHOIDS Melatonin 10 mg 02/06/19 22:00 02/08/19 21:44 Melatonin PO 10 mg HS NAHEED Administration Midodrine 10 mg 01/27/19 14:30 02/09/19 11:30 Proamatine - PO 10 mg TID-MID NAHEED Administration Multivit/Ca Carb/B Cmplx/FA/Prenat 1 tablet 01/27/19 10:00 02/09/19 11:30 Nephro-Evert - PO 1 tablet DAILY NAHEED Administration Nystatin 1 applic 01/27/19 22:00 02/09/19 11:30 Mycostatin Ointment - TP 1 applic BID NAHEED Administration Ondansetron HCl 4 mg 01/27/19 01:57 Zofran - PO Q6H PRN NAUSEA AND/OR VOMITING Pantoprazole Sodium 40 mg 01/31/19 10:00 02/09/19 11:30 Protonix Iv IVPUSH 40 mg DAILY NAHEED Administration Rivaroxaban 15 mg 01/27/19 18:00 02/08/19 18:21 Xarelto PO 15 mg DAILY@1800 NAHEED Administration Sertraline HCl 50 mg 01/27/19 10:00 02/09/19 11:30 Zoloft - PO 50 mg DAILY NAHEED Administration Silver Sulfadiazine 1 applic 01/27/19 10:00 02/09/19 11:30 Silvadene - TP 1 applic BID NAHEED Administration Impression 1. ESRD 2. change in mental status 3. resp failure requiring intubation 4. chf 5. dvt 6. anemia 7. a-fib 8. hypothyroid 9. pleural effusion Plan - HD today - renal diet - fluid restriction, discussed with pt and her daughter - monitor bp - HD right thigh cath, 3 k bath, 3 15 time, 400 abf
[2019-02-09] MEDS: RIVAROXABAN 15 MG TABLET PO SCH (18:26)
[2019-02-09] MEDS: MELATONIN 5 MG TABLETS PO SCH (21:03)
[2019-02-10] MEDS: LEVOTHYROXINE NA 50 MCG TABLET (FP) PO SCH (06:21)
[2019-02-10 06:28] LABS: BASO % 1.1 % (0-2.0); EOS % 3.1 % (0-4.5); HEMATOCRIT 29.3 % (32.4-45.2); HEMOGLOBIN 9.2 GM/dL (10.7-15.3); LYMPH % 34.2 % (8-40); MCH 30.5 pg (25.7-33.7); MCHC 31.5 g/dl (32.0-36.0); MEAN CELL VOLUME 96.7 fl (80-96); MEAN PLT VOLUME 7.7 fl (7.5-11.1); MONO % 8.6 % (3.8-10.2); PLATELET COUNT 231 K/MM3 (134-434); RBC 3.03 M/mm3 (3.60-5.2); WHITE BLOOD COUNT 4.9 K/mm3 (4.0-10.0)
[2019-02-10 07:07] LABS: ALBUMIN 2.6 g/dl (3.4-5.0); BILIRUBIN,TOTAL 0.4 mg/dL (0.2-1); BLOOD UREA NITROGEN 23.5 mg/dL (7-18); CALCIUM 8.5 mg/dL (8.5-10.1); CREATININE 2.6 mg/dL (0.55-1.3); PHOSPHOROUS 4.2 mg/dL (2.5-4.9); POTASSIUM 4.4 mmol/L (3.5-5.1); TOT PROT 6.5 g/dl (6.4-8.2)
[2019-02-10] MEDS: INSULIN SLIDING SCALE (NOVOLOG) 1 VIAL SQ SCH ×4 (07:20→21:51)
[2019-02-10] MEDS: AMINO ACIDS/PROTEIN HYDROLYS 30 ML LIQUID.PKT PO SCH ×2 (09:30→19:00)
--- NOTE | 2019-02-10 10:23 | PN ---
Progress Note (short form) - Note Progress Note: s: still on pressors. denies cp sob palps dizzy Current Medications Generic Name Dose Route Start Last Admin Trade Name Roberto PRN Reason Stop Dose Admin Acetaminophen 650 mg 02/05/19 23:36 02/08/19 23:32 Tylenol - PO 650 mg Q4H PRN Administration PAIN LEVEL 1 - 3 Amino Acids 30 ml 01/31/19 17:30 02/09/19 18:26 Prosource No Carb Liquid Pkt PO 30 ml BID@0800,1730 NAHEED Administration Collagenase 1 applic 02/02/19 10:15 02/09/19 11:30 Santyl - TP 1 applic DAILY NAHEED Administration Protocol Norepinephrine Bitartrate 8, 500 mls @ 18.75 mls/hr 02/08/19 10:50 02/09/19 23:00 000 mcg/ Dextrose IV 4 mcg/min TITR NAHEED 15 mls/hr Titration Protocol 5 MCG/MIN Sodium Chloride 250 mls @ 3,000 mls/hr 02/09/19 07:15 Normal Saline - IV PRN PRN Hypotension during Dialysis Insulin Aspart 1 vial 02/05/19 07:00 02/10/19 07:20 Novolog Vial Sliding Scale - SQ Not Given ACHS NAHEED Protocol Levothyroxine Sodium 50 mcg 01/27/19 07:00 02/10/19 06:21 Synthroid - PO 50 mcg DAILY@0700 NAHEED Administration Lidocaine/Prilocaine 1 applic 01/27/19 01:55 Emla - TP QID PRN HEMORRHOIDS Melatonin 10 mg 02/06/19 22:00 02/09/19 21:03 Melatonin PO 10 mg HS NAHEED Administration Midodrine 10 mg 01/27/19 14:30 02/09/19 18:26 Proamatine - PO 10 mg TID-MID NAHEED Administration Multivit/Ca Carb/B Cmplx/FA/Prenat 1 tablet 01/27/19 10:00 02/09/19 11:30 Nephro-Evert - PO 1 tablet DAILY NAHEED Administration Nystatin 1 applic 01/27/19 22:00 02/09/19 21:04 Mycostatin Ointment - TP 1 applic BID NAHEED Administration Ondansetron HCl 4 mg 01/27/19 01:57 Zofran - PO Q6H PRN NAUSEA AND/OR VOMITING Pantoprazole Sodium 40 mg 01/31/19 10:00 02/09/19 11:30 Protonix Iv IVPUSH 40 mg DAILY NAHEED Administration Rivaroxaban 15 mg 01/27/19 18:00 02/09/19 18:26 Xarelto PO 15 mg DAILY@1800 NAHEED Administration Sertraline HCl 50 mg 01/27/19 10:00 02/09/19 11:30 Zoloft - PO 50 mg DAILY NAHEED Administration Silver Sulfadiazine 1 applic 01/27/19 10:00 02/09/19 21:04 Silvadene - TP 1 applic BID NAHEED Administration Vital Signs Temp 97.9 F 02/10/19 06:00 Pulse 89 02/10/19 07:32 Resp 100 H 02/10/19 07:32 BP 100/58 L 02/10/19 07:32 Pulse Ox 100 02/09/19 21:00 Intake & Output 02/09/19 02/09/19 02/10/19 11:59 23:59 11:59 Intake Total 500 200 105 Output Total 3500 Balance -3000 200 105 Weight 184 lb 1.376 oz 179 lb 10.828 oz Intake: IV 500 105 Levophed - 8,000 Mcg In 105 D5w - 492 ml @ 5 MCG/MIN 18.75 mls/hr IV TITR NAHEED Rx#:[id number] Normal Saline - 250 ml @ 500 3000 mls/hr IV PRN PRN Rx #:[id number] Oral 200 Output: Fluid Removed, 3500 Hemodialysis Other: Voiding Method Diaper Diaper Bowel Movement Yes Yes # Bowel Movements 1 1 Weight Measurement Method Built in [facility] Built in [facility] Constitutional: Yes: No Distress, Calm, Obese Cardiovascular: Yes: Pulse Irregular, S1, S2. No: JVD (prohibitive tds phys exam), Gallop, Murmur Respiratory: Yes: Regular, CTA Bilaterally nl eff. No: Accessory Muscle Use Extremities: No: Cold Edema: No Neurological: awake, alert appropriate Psychiatric: No: Agitated no jaundice, diaphoresis Laboratory Last Values WBC 4.9 K/mm3 (4.0-10.0) 02/10/19 05:15 RBC 3.03 M/mm3 (3.60-5.2) L 02/10/19 05:15 Hgb 9.2 GM/dL (10.7-15.3) L 02/10/19 05:15 Hct 29.3 % (32.4-45.2) L 02/10/19 05:15 MCV 96.7 fl (80-96) H 02/10/19 05:15 MCH 30.5 pg (25.7-33.7) 02/10/19 05:15 MCHC 31.5 g/dl (32.0-36.0) L 02/10/19 05:15 RDW 20.0 % (11.6-15.6) H 02/10/19 05:15 Plt Count 231 K/MM3 (134-434) 02/10/19 05:15 MPV 7.7 fl (7.5-11.1) 02/10/19 05:15 Absolute Neuts (auto) 2.6 K/mm3 (1.5-8.0) 02/10/19 05:15 Neutrophils % 53.0 % (42.8-82.8) 02/10/19 05:15 Lymphocytes % 34.2 % (8-40) D 02/10/19 05:15 Monocytes % 8.6 % (3.8-10.2) 02/10/19 05:15 Eosinophils % 3.1 % (0-4.5) 02/10/19 05:15 Basophils % 1.1 % (0-2.0) 02/10/19 05:15 Nucleated RBC % 0 % (0-0) 02/10/19 05:15 PT with INR 20.90 SEC (9.7-13.0) H 01/27/19 05:45 INR 1.76 (0.83-1.09) H 01/27/19 05:45 PTT (Actin FS) 33.3 SECONDS (25.2-36.5) 01/27/19 05:45 Anticoagulation Therapy No Result Required. 01/27/19 06:40 Puncture Site Left radial 01/27/19 06:40 ABG pH 7.34 (7.35-7.45) L 01/27/19 06:40 ABG pCO2 at Pt Temp 38.7 mmHg (35-45) 01/27/19 06:40 ABG pO2 at Pt Temp 205 mmHg (80-105) H 01/27/19 06:40 ABG HCO3 20.1 mmol/L (22-27) L 01/27/19 06:40 ABG O2 Sat (Measured) 99.9 % (95-98) H 01/27/19 06:40 ABG O2 Content 15.0 % vol (15-22) 01/27/19 06:40 ABG Base Excess -4.7 meq/l (-2-2) L 01/27/19 06:40 Pedro Test Positive 01/27/19 06:40 Carboxyhemoglobin 1.5 % (0-2) 01/26/19 23:30 Methemoglobin 0.2 % (0-2) 01/26/19 23:30 O2 Delivery Device Vent 01/27/19 06:40 Oxygen Flow Rate 60% 01/27/19 06:40 Vent Mode A/c 01/27/19 06:40 Vent Rate 16 01/27/19 06:40 Mechanical Rate Yes 01/27/19 06:40 PEEP 5.0 cmH2O 01/27/19 06:40 Pressure Support Vent 450 01/27/19 06:40 Sodium 135 mmol/L (136-145) L 02/10/19 05:15 Potassium 4.4 mmol/L (3.5-5.1) 02/10/19 05:15 Chloride 99 mmol/L (98-107) 02/10/19 05:15 Carbon Dioxide 32 mmol/L (21-32) 02/10/19 05:15 Anion Gap 4 MMOL/L (8-16) L 02/10/19 05:15 BUN 23.5 mg/dL (7-18) H 02/10/19 05:15 Creatinine 2.6 mg/dL (0.55-1.3) H 02/10/19 05:15 Est GFR (CKD-EPI)AfAm 20.68 02/10/19 05:15 Est GFR (CKD-EPI)NonAf 17.84 02/10/19 05:15 POC Glucometer 140 UNITS (80-120) 02/09/19 22:12 Random Glucose 88 mg/dL (74-106) 02/10/19 05:15 Lactic Acid 2.1 mmol/L (0.4-2.0) H 01/27/19 02:00 Calcium 8.5 mg/dL (8.5-10.1) 02/10/19 05:15 Phosphorus 4.2 mg/dL (2.5-4.9) 02/10/19 05:15 Magnesium 2.0 mg/dL (1.8-2.4) 02/10/19 05:15 Total Bilirubin 0.4 mg/dL (0.2-1) 02/10/19 05:15 AST 17 U/L (15-37) 02/10/19 05:15 ALT 17 U/L (13-61) 02/10/19 05:15 Alkaline Phosphatase 138 U/L (45-117) H 02/10/19 05:15 Creatine Kinase 76 U/L (26-192) 01/27/19 02:00 Troponin I 2.10 ng/ml (0.00-0.05) H* 01/29/19 05:30 Total Protein 6.5 g/dl (6.4-8.2) 02/10/19 05:15 Albumin 2.6 g/dl (3.4-5.0) L 02/10/19 05:15 TSH 4.97 uIU/ml (0.358-3.74) H 02/10/19 05:15 Stool Occult Blood Negative (NEGATIVE) 02/03/19 00:30 Random Vancomycin 20.4 ug/ml (18-26) 02/02/19 06:00 Digoxin 0.10 ng/ml (0.8-2.0) L 01/26/19 23:00 Assessment/Plan Echo 12/01: nl LV function, RV mod to severely dilated, RV function mod to severely reduced, mod dilated LA/RA, RVSP 40-50 mmHg, mod TR Echo 01/2019 - LV function slightly worsened, 45-50%, LA mod dilated, RV mod to severely dilated, tr AR, RV function mod to severely reduced, mild MR, mild to mod TR, RA mod to severely dilated, mobile echodensity in pleural space tele: sr cxr: clear lungs est cct 35 mins IMP: -Acute on chronic hypoxic/hypercapneic respiratory failure at HD, with bradycardia (40s-50s) -possible RLL PNA, sepsis -NSTEMI (troponin to 2): most likely Type II secondary to acute strain from CHF/ pulm HTN and acute resp failure, vs sec to hypotension at time of arrest. -septic shock on Levophed, doubt cardiogenic shock here -HFpEF, pulmonary HTN, RV dysfunction -ESRD on HD -h/o DVT /PE on AC REC: -now extubated -continue to wean off levophed as bp allows -repeat echo with LV function slightly worsened compared to prior, RV function is mod to severely reduced (stable) -repeat echo also shows echodensity in pleural space - consider chest imaging per critical care -HD as per renal for volume management -Cont xarelto (anemia, PLTs stable) -hold AVN blockers --> HRs ok -cont midodrine for bp support at HD -will defer ischemia evaluation as this will not interchange agent. She is at prohibitive risk for invasive tx strategy given extremely poor functional status with severe comorbidities at present. Will not tolerate signif b-blockade , though will try to give low dose if can tolerate, once she is off pressors. -no ASA for now given pt on Xarelto with mild anemia/thrombocytopenia (and likely dysfunctional PLTs in HD pt), and hi risk for bleeding at present -if she recovers from the acute illness will potentially reconsider above approach
[2019-02-10] MEDS: NYSTATIN 100000 UNIT/GM TOPICAL OINTMENT 15 GM TUBE TP SCH ×2 (10:30→21:51)
[2019-02-10] MEDS: VITAMIN B COMP W-C 1 EA TABLET PO SCH (10:30)
[2019-02-10] MEDS ORDERED: PT OWN MED DRAWER 7, Y5N ONE ×2 (11:21→21:17)
--- NOTE | 2019-02-10 11:28 | PN ---
Teaching Attending Note Name of Resident: Hiren Liz ATTENDING PHYSICIAN STATEMENT I saw and evaluated the patient. I reviewed the resident's note and discussed the case with the resident. I agree with the resident's findings and plan as documented. SUBJECTIVE: Pt seen and examined in the ICU. Remains on levophed gtt. Mental status improving. Denies shortness of breath. OBJECTIVE: Vital Signs Period Temp Pulse Resp BP Sys/Jhaveri Pulse Ox Last 24 Hr 97.5 F-97.9 F 80-97 13-100 75-105/48-66 100-100 Intake & Output 02/07/19 02/08/19 02/09/19 02/10/19 23:59 23:59 23:59 23:59 Intake Total 774 637.5 700 105 Output Total 3000 3500 Balance -2226 637.5 -2800 105 Weight 83.3 kg 85.139 kg 83.5 kg 81.5 kg Gen: more alert, awake Heart: RRR Lung: decreased breath sounds at the bases Abd: soft, nontender Ext: + edema CBC, BMP 02/10/19 05:15 02/10/19 05:15 Active Medications Acetaminophen (Tylenol -) 650 mg PO Q4H PRN PRN Reason: PAIN LEVEL 1 - 3 Last Admin: 02/08/19 23:32 Dose: 650 mg Amino Acids (Prosource No Carb Liquid Pkt) 30 ml PO BID@0800,1730 [facility] Last Admin: 02/09/19 18:26 Dose: 30 ml Collagenase (Santyl -) 1 applic TP DAILY [facility]; Protocol Last Admin: 02/09/19 11:30 Dose: 1 applic Norepinephrine Bitartrate 8, (000 mcg/ Dextrose) 500 mls @ 18.75 mls/hr IV TITR [facility]; Protocol Last Titration: 02/09/19 23:00 Dose: 4 mcg/min, 15 mls/hr Sodium Chloride (Normal Saline -) 250 mls @ 3,000 mls/hr IV PRN PRN PRN Reason: Hypotension during Dialysis Insulin Aspart (Novolog Vial Sliding Scale -) 1 vial SQ ACHS [facility]; Protocol Last Admin: 02/10/19 07:20 Dose: Not Given Levothyroxine Sodium (Synthroid -) 50 mcg PO DAILY@0700 [facility] Last Admin: 02/10/19 06:21 Dose: 50 mcg Lidocaine/Prilocaine (Emla -) 1 applic TP QID PRN PRN Reason: HEMORRHOIDS Melatonin (Melatonin) 10 mg PO HS [facility] Last Admin: 02/09/19 21:03 Dose: 10 mg Midodrine (Proamatine -) 10 mg PO TID-MID [facility] Last Admin: 02/09/19 18:26 Dose: 10 mg Multivit/Ca Carb/B Cmplx/FA/Prenat (Nephro-Evert -) 1 tablet PO DAILY [facility] Last Admin: 02/09/19 11:30 Dose: 1 tablet Nystatin (Mycostatin Ointment -) 1 applic TP BID [facility] Last Admin: 02/09/19 21:04 Dose: 1 applic Ondansetron HCl (Zofran -) 4 mg PO Q6H PRN PRN Reason: NAUSEA AND/OR VOMITING Pantoprazole Sodium (Protonix Iv) 40 mg IVPUSH DAILY [facility] Last Admin: 02/09/19 11:30 Dose: 40 mg Rivaroxaban (Xarelto) 15 mg PO DAILY@1800 [facility] Last Admin: 02/09/19 18:26 Dose: 15 mg Sertraline HCl (Zoloft -) 50 mg PO DAILY [facility] Last Admin: 02/09/19 11:30 Dose: 50 mg Silver Sulfadiazine (Silvadene -) 1 applic TP BID [facility] Last Admin: 02/09/19 21:04 Dose: 1 applic ASSESSMENT AND PLAN: Acute on Chronic Hypoxic and Hypercapneic Respiratory Failure improving r/o Pneumonia Shock likely Septic r/o Autonomic Dysfunction Volume Overload ESRD on HD +Troponins likely Demand Ischemia Pulmonary HTN h/o PE/DVT - completed antibiotics - taper pressors to maintain MAP >55 - continue midodrine - HD per renal with ultrafiltration - taper FiO2 to keep SpO2 >90% - continue anticoagulation - DVT/GI prophylaxis - continue ICU monitoring while on pressors critical care time spent in reviewing chart, evaluating patient and formulating plan 35 min
[2019-02-10] MEDS: PANTOPRAZOLE SODIUM 40 MG VIAL IVPUSH SCH (11:30)
[2019-02-10] MEDS: MIDODRINE HCL 5 MG TABLET PO SCH ×3 (11:30→18:08)
[2019-02-10] MEDS: SILVER SULFADIAZINE 1% TOP CREAM 400 GM JAR TP SCH ×2 (11:31→21:51)
[2019-02-10] MEDS: SERTRALINE HCL 50 MG TABLET (FP) PO SCH (11:31)
[2019-02-10] MEDS: COLLAGENASE CLOSTRIDIUM HIST. 30 GRAMS TUBE TP SCH (11:31)
--- NOTE | 2019-02-10 12:14 | PN ---
Progress Note, Physician Chief Complaint: seen and examined in icu on levophed drip 2 mcg mAP > 55 awake alert tolerated HD yesterday - Current Medication List Current Medications: Active Medications Acetaminophen (Tylenol -) 650 mg PO Q4H PRN PRN Reason: PAIN LEVEL 1 - 3 Last Admin: 02/08/19 23:32 Dose: 650 mg Amino Acids (Prosource No Carb Liquid Pkt) 30 ml PO BID@0800,1730 [facility] Last Admin: 02/10/19 09:30 Dose: 30 ml Collagenase (Santyl -) 1 applic TP DAILY [facility]; Protocol Last Admin: 02/10/19 11:31 Dose: Not Given Norepinephrine Bitartrate 8, (000 mcg/ Dextrose) 500 mls @ 18.75 mls/hr IV TITR [facility]; Protocol Last Titration: 02/10/19 09:00 Dose: 2 mcg/min, 7.5 mls/hr Sodium Chloride (Normal Saline -) 250 mls @ 3,000 mls/hr IV PRN PRN PRN Reason: Hypotension during Dialysis Insulin Aspart (Novolog Vial Sliding Scale -) 1 vial SQ ACHS [facility]; Protocol Last Admin: 02/10/19 07:20 Dose: Not Given Levothyroxine Sodium (Synthroid -) 50 mcg PO DAILY@0700 [facility] Last Admin: 02/10/19 06:21 Dose: 50 mcg Lidocaine/Prilocaine (Emla -) 1 applic TP QID PRN PRN Reason: HEMORRHOIDS Melatonin (Melatonin) 10 mg PO HS [facility] Last Admin: 02/09/19 21:03 Dose: 10 mg Midodrine (Proamatine -) 10 mg PO TID-MID [facility] Last Admin: 02/10/19 11:30 Dose: 10 mg Multivit/Ca Carb/B Cmplx/FA/Prenat (Nephro-Evert -) 1 tablet PO DAILY [facility] Last Admin: 02/10/19 10:30 Dose: 1 tablet Nystatin (Mycostatin Ointment -) 1 applic TP BID [facility] Last Admin: 02/10/19 10:30 Dose: 1 applic Ondansetron HCl (Zofran -) 4 mg PO Q6H PRN PRN Reason: NAUSEA AND/OR VOMITING Pantoprazole Sodium (Protonix Iv) 40 mg IVPUSH DAILY [facility] Last Admin: 02/10/19 11:30 Dose: 40 mg Rivaroxaban (Xarelto) 15 mg PO DAILY@1800 [facility] Last Admin: 02/09/19 18:26 Dose: 15 mg Sertraline HCl (Zoloft -) 50 mg PO DAILY [facility] Last Admin: 02/10/19 11:31 Dose: 50 mg Silver Sulfadiazine (Silvadene -) 1 applic TP BID [facility] Last Admin: 02/10/19 11:31 Dose: 1 applic - Objective Vital Signs: Vital Signs Temperature 97.5 F L 02/10/19 10:00 Pulse Rate 73 02/10/19 12:00 Respiratory Rate 12 02/10/19 12:00 Blood Pressure 81/55 L 02/10/19 12:00 O2 Sat by Pulse Oximetry (%) 100 02/10/19 10:00 Constitutional: Yes: Calm Cardiovascular: Yes: Regular Rate and Rhythm, S1, S2 Respiratory: Yes: Diminished (at bases) Gastrointestinal: Yes: Normal Bowel Sounds, Soft Extremities: Yes: Other (right hand finger swollen erythematous) Neurological: Yes: Alert Labs: CBC, BMP 02/10/19 05:15 02/10/19 05:15 INR, PTT INR 1.76 (0.83-1.09) H 01/27/19 05:45 Problem List - Problems (1) Hypotension Assessment/Plan: on levophed- trying to wean off pressors iv abx completed midodrine standing order wbc trending down keep MAP> 55 Code(s): I95.9 - HYPOTENSION, UNSPECIFIED Qualifiers: Hypotension type: unspecified hypotension type Qualified Code(s): I95.9 - Hypotension, unspecified (2) Acute respiratory failure Assessment/Plan: improved completed abx for possible pna Code(s): J96.00 - ACUTE RESPIRATORY FAILURE, UNSP W HYPOXIA OR HYPERCAPNIA Qualifiers: Respiratory failure complication: hypoxia Qualified Code(s): J96.01 - Acute respiratory failure with hypoxia (3) Hypothyroid Assessment/Plan: on synthroid Code(s): E03.9 - HYPOTHYROIDISM, UNSPECIFIED (4) ESRD on hemodialysis Assessment/Plan: HD per renal epogen with HD Code(s): N18.6 - END STAGE RENAL DISEASE; Z99.2 - DEPENDENCE ON RENAL DIALYSIS (5) H/O deep venous thrombosis Assessment/Plan: on xarelto Code(s): Z86.718 - PERSONAL HISTORY OF OTHER VENOUS THROMBOSIS AND EMBOLISM (6) Elevated troponin Assessment/Plan: NSTEMi- inc troponin secondary to strain from resp failure, septic shock Code(s): R74.8 - ABNORMAL LEVELS OF OTHER SERUM ENZYMES (7) Hand swelling Assessment/Plan: adele give one dose of iv vancomycin today Code(s): M79.89 - OTHER SPECIFIED SOFT TISSUE DISORDERS
[2019-02-10] MEDS ORDERED: VANCOMYCIN 1 GM in D5W (PRE-DOCKED) 1,000 MG/250 ML IVPB ONE (12:15)
--- NOTE | 2019-02-10 13:03 | PN ---
Progress Note, Physician History of Present Illness: Pt seen and examined at bedside. She is awake and alert. She feels that her breathing is improved. She is still hypotensive. - Current Medication List Current Medications: Active Medications Acetaminophen (Tylenol -) 650 mg PO Q4H PRN PRN Reason: PAIN LEVEL 1 - 3 Last Admin: 02/08/19 23:32 Dose: 650 mg Amino Acids (Prosource No Carb Liquid Pkt) 30 ml PO BID@0800,1730 [facility] Last Admin: 02/10/19 09:30 Dose: 30 ml Norepinephrine Bitartrate 8, (000 mcg/ Dextrose) 500 mls @ 18.75 mls/hr IV TITR [facility]; Protocol Last Titration: 02/10/19 09:00 Dose: 2 mcg/min, 7.5 mls/hr Sodium Chloride (Normal Saline -) 250 mls @ 3,000 mls/hr IV PRN PRN PRN Reason: Hypotension during Dialysis Insulin Aspart (Novolog Vial Sliding Scale -) 1 vial SQ ACHS [facility]; Protocol Last Admin: 02/10/19 07:20 Dose: Not Given Levothyroxine Sodium (Synthroid -) 50 mcg PO DAILY@0700 [facility] Last Admin: 02/10/19 06:21 Dose: 50 mcg Lidocaine/Prilocaine (Emla -) 1 applic TP QID PRN PRN Reason: HEMORRHOIDS Melatonin (Melatonin) 10 mg PO HS [facility] Last Admin: 02/09/19 21:03 Dose: 10 mg Midodrine (Proamatine -) 10 mg PO TID-MID [facility] Last Admin: 02/10/19 11:30 Dose: 10 mg Multivit/Ca Carb/B Cmplx/FA/Prenat (Nephro-Evret -) 1 tablet PO DAILY [facility] Last Admin: 02/10/19 10:30 Dose: 1 tablet Nystatin (Mycostatin Ointment -) 1 applic TP BID [facility] Last Admin: 02/10/19 10:30 Dose: 1 applic Ondansetron HCl (Zofran -) 4 mg PO Q6H PRN PRN Reason: NAUSEA AND/OR VOMITING Pantoprazole Sodium (Protonix Iv) 40 mg IVPUSH DAILY [facility] Last Admin: 02/10/19 11:30 Dose: 40 mg Rivaroxaban (Xarelto) 15 mg PO DAILY@1800 [facility] Last Admin: 02/09/19 18:26 Dose: 15 mg Sertraline HCl (Zoloft -) 50 mg PO DAILY [facility] Last Admin: 02/10/19 11:31 Dose: 50 mg Silver Sulfadiazine (Silvadene -) 1 applic TP BID [facility] Last Admin: 02/10/19 11:31 Dose: 1 applic - Objective Vital Signs: Vital Signs Temperature 97.5 F L 02/10/19 10:00 Pulse Rate 73 02/10/19 12:00 Respiratory Rate 12 02/10/19 12:00 Blood Pressure 81/55 L 02/10/19 12:00 O2 Sat by Pulse Oximetry (%) 100 02/10/19 10:00 Constitutional: Yes: Calm Eyes: Yes: Conjunctiva Clear HENT: Yes: Atraumatic Cardiovascular: Yes: S1, S2 Respiratory: Yes: On Nasal O2 Gastrointestinal: Yes: Soft, Abdomen, Obese Genitourinary: Yes: Incontinence Edema: Yes Edema: LUE: Trace, RUE: Trace Integumentary: Yes: Erythema Wound/Incision: Yes: Open to air, Other (right index finger wound) Neurological: Yes: Oriented Labs: CBC, BMP 02/10/19 05:15 02/10/19 05:15 INR, PTT INR 1.76 (0.83-1.09) H 01/27/19 05:45 Problem List - Problems (1) Acute respiratory failure Code(s): J96.00 - ACUTE RESPIRATORY FAILURE, UNSP W HYPOXIA OR HYPERCAPNIA Qualifiers: Respiratory failure complication: hypoxia Qualified Code(s): J96.01 - Acute respiratory failure with hypoxia (2) ESRD on hemodialysis Code(s): N18.6 - END STAGE RENAL DISEASE; Z99.2 - DEPENDENCE ON RENAL DIALYSIS Assessment/Plan Current Medications Generic Name Dose Route Start Last Admin Trade Name Freq PRN Reason Stop Dose Admin Acetaminophen 650 mg 02/05/19 23:36 02/08/19 23:32 Tylenol - PO 650 mg Q4H PRN Administration PAIN LEVEL 1 - 3 Amino Acids 30 ml 01/31/19 17:30 02/10/19 09:30 Prosource No Carb Liquid Pkt PO 30 ml BID@0800,1730 [facility] Administration Norepinephrine Bitartrate 8, 500 mls @ 18.75 mls/hr 02/08/19 10:50 02/10/19 09:00 000 mcg/ Dextrose IV 2 mcg/min TITR [facility] 7.5 mls/hr Titration Protocol 5 MCG/MIN Sodium Chloride 250 mls @ 3,000 mls/hr 02/09/19 07:15 Normal Saline - IV PRN PRN Hypotension during Dialysis Insulin Aspart 1 vial 02/05/19 07:00 02/10/19 07:20 Novolog Vial Sliding Scale - SQ Not Given ACHS [facility] Protocol Levothyroxine Sodium 50 mcg 01/27/19 07:00 02/10/19 06:21 Synthroid - PO 50 mcg DAILY@0700 [facility] Administration Lidocaine/Prilocaine 1 applic 01/27/19 01:55 Emla - TP QID PRN HEMORRHOIDS Melatonin 10 mg 02/06/19 22:00 02/09/19 21:03 Melatonin PO 10 mg HS [facility] Administration Midodrine 10 mg 01/27/19 14:30 02/10/19 11:30 Proamatine - PO 10 mg TID-MID [facility] Administration Multivit/Ca Carb/B Cmplx/FA/Prenat 1 tablet 01/27/19 10:00 02/10/19 10:30 Nephro-Evert - PO 1 tablet DAILY [facility] Administration Nystatin 1 applic 01/27/19 22:00 02/10/19 10:30 Mycostatin Ointment - TP 1 applic BID [facility] Administration Ondansetron HCl 4 mg 01/27/19 01:57 Zofran - PO Q6H PRN NAUSEA AND/OR VOMITING Pantoprazole Sodium 40 mg 01/31/19 10:00 02/10/19 11:30 Protonix Iv IVPUSH 40 mg DAILY [facility] Administration Rivaroxaban 15 mg 01/27/19 18:00 02/09/19 18:26 Xarelto PO 15 mg DAILY@1800 [facility] Administration Sertraline HCl 50 mg 01/27/19 10:00 02/10/19 11:31 Zoloft - PO 50 mg DAILY [facility] Administration Silver Sulfadiazine 1 applic 01/27/19 10:00 02/10/19 11:31 Silvadene - TP 1 applic BID [facility] Administration Impression 1. ESRD 2. change in mental status 3. resp failure requiring intubation 4. chf 5. dvt 6. anemia 7. a-fib 8. hypothyroid 9. pleural effusion Plan - HD tomorrow - abx for digit cellulitis - discussed with medical team - check cxr - renal diet - fluid restriction - monitor bp - HD right thigh cath, 3 k bath, 3 15 time, 400 abf
--- NOTE | 2019-02-10 14:05 | PN ---
Physical Exam: SUBJECTIVE: Patient seen and examined at bedside. Mental status waxes and wanes this AM doing fine. Weaning her pressors as tolerated on 1mcg. OBJECTIVE: Vital Signs Period Temp Pulse Resp BP Sys/Jhaveri Pulse Ox Last 24 Hr 97.5 F-97.9 F 73-96 12-100 75-105/48-64 100-100 GENERAL: The patient is awake, alert, and orientation waxes and wanes, in no acute distress. HEAD: Normal with no signs of trauma. NECK: supple. LUNGS: Breath sounds equal, slightly roncharous. HEART: Regular rate and rhythm, S1, S2 without murmur, rub or gallop. ABDOMEN: Soft, nontender, nondistended, normoactive bowel sounds, no guarding, no rebound. EXTREMITIES: warm, well-perfused, edema in rt UE, with rt hand cellulitis. NEUROLOGICAL: Cranial nerves II through XII grossly intact. Normal speech, gait not observed. PSYCH: Normal mood, normal affect. SKIN: Warm, dry, celullitic upper extremity, no lesions noted Laboratory Results - last 24 hr 02/09/19 02/09/19 02/10/19 17:10 22:12 05:15 WBC 4.9 RBC 3.03 L Hgb 9.2 L Hct 29.3 L MCV 96.7 H MCH 30.5 MCHC 31.5 L RDW 20.0 H Plt Count 231 MPV 7.7 Absolute Neuts (auto) 2.6 Neutrophils % 53.0 Lymphocytes % 34.2 D Monocytes % 8.6 Eosinophils % 3.1 Basophils % 1.1 Nucleated RBC % 0 Sodium Potassium Chloride Carbon Dioxide Anion Gap BUN Creatinine Est GFR (CKD-EPI)AfAm Est GFR (CKD-EPI)NonAf POC Glucometer 163 140 Random Glucose Calcium Phosphorus Magnesium Total Bilirubin AST ALT Alkaline Phosphatase Total Protein Albumin TSH 02/10/19 02/10/19 05:15 12:39 WBC RBC Hgb Hct MCV MCH MCHC RDW Plt Count MPV Absolute Neuts (auto) Neutrophils % Lymphocytes % Monocytes % Eosinophils % Basophils % Nucleated RBC % Sodium 135 L Potassium 4.4 Chloride 99 Carbon Dioxide 32 Anion Gap 4 L BUN 23.5 H Creatinine 2.6 H Est GFR (CKD-EPI)AfAm 20.68 Est GFR (CKD-EPI)NonAf 17.84 POC Glucometer 146 Random Glucose 88 Calcium 8.5 Phosphorus 4.2 Magnesium 2.0 Total Bilirubin 0.4 AST 17 ALT 17 Alkaline Phosphatase 138 H Total Protein 6.5 Albumin 2.6 L TSH 4.97 H Active Medications Generic Name Dose Route Start Last Admin Trade Name Roberto PRN Reason Stop Dose Admin Acetaminophen 650 mg 02/05/19 23:36 02/08/19 23:32 Tylenol - PO 650 mg Q4H PRN Administration PAIN LEVEL 1 - 3 Amino Acids 30 ml 01/31/19 17:30 02/10/19 09:30 Prosource No Carb Liquid Pkt PO 30 ml BID@0800,1730 [facility] Administration Epoetin Memo 10,000 unit 02/11/19 13:03 Procrit - IVPUSH 02/11/19 13:04 ONCE ONE Norepinephrine Bitartrate 8, 500 mls @ 18.75 mls/hr 02/08/19 10:50 02/10/19 09:00 000 mcg/ Dextrose IV 2 mcg/min TITR [facility] 7.5 mls/hr Titration Protocol 5 MCG/MIN Sodium Chloride 250 mls @ 3,000 mls/hr 02/09/19 07:15 Normal Saline - IV PRN PRN Hypotension during Dialysis Sodium Chloride 250 mls @ 3,000 mls/hr 02/10/19 13:03 Normal Saline - IV 02/11/19 13:04 PRN PRN Hypotension during Dialysis Insulin Aspart 1 vial 02/05/19 07:00 02/10/19 07:20 Novolog Vial Sliding Scale - SQ Not Given ACHS [facility] Protocol Levothyroxine Sodium 50 mcg 01/27/19 07:00 02/10/19 06:21 Synthroid - PO 50 mcg DAILY@0700 [facility] Administration Lidocaine/Prilocaine 1 applic 01/27/19 01:55 Emla - TP QID PRN HEMORRHOIDS Melatonin 10 mg 02/06/19 22:00 02/09/19 21:03 Melatonin PO 10 mg HS [facility] Administration Midodrine 10 mg 01/27/19 14:30 02/10/19 11:30 Proamatine - PO 10 mg TID-MID [facility] Administration Multivit/Ca Carb/B Cmplx/FA/Prenat 1 tablet 01/27/19 10:00 02/10/19 10:30 Nephro-Evert - PO 1 tablet DAILY [facility] Administration Nystatin 1 applic 01/27/19 22:00 02/10/19 10:30 Mycostatin Ointment - TP 1 applic BID [facility] Administration Ondansetron HCl 4 mg 01/27/19 01:57 Zofran - PO Q6H PRN NAUSEA AND/OR VOMITING Pantoprazole Sodium 40 mg 01/31/19 10:00 02/10/19 11:30 Protonix Iv IVPUSH 40 mg DAILY [facility] Administration Rivaroxaban 15 mg 01/27/19 18:00 02/09/19 18:26 Xarelto PO 15 mg DAILY@1800 [facility] Administration Sertraline HCl 50 mg 01/27/19 10:00 02/10/19 11:31 Zoloft - PO 50 mg DAILY [facility] Administration Silver Sulfadiazine 1 applic 01/27/19 10:00 02/10/19 11:31 Silvadene - TP 1 applic BID [facility] Administration ASSESSMENT/PLAN: This is a 73 yo F with a PMH of ESRD, Orthostatic Hypotension, CHF, DM, hypothyroid, COPD, Afib (on Xarelto), DVTs, Pulmonary Edema and multiple prior admissions for pneumonia admitted to the ICU for unresponsiveness secondary to acute hypercapneic respiratory failure and hypotension likely 2/2 dialysis. LINES - L femoral central line placed 01/26, will need prolonged access due to difficulty in obtaining access elsewhere, stenosis centrally - R femoral Tesio catheter CARDIOLOGY-> Orthostatic hypotension likely 2/2 hemodialysisHFrEF/AF - lowered levo to 1mcg from 6mcq, spoke w nurse to titrate down after dialysis as tolerated maintaining MAP >50-55%. -HD for volume management, will do tm. -C/w xarelto for Afib -continue to hold AV node blockers -c/w midodrine 10 TID for bp support - will try low dose BB if can tolerate once she is off pressors. - will start ASA once pt off pressors - pt on Xarelto RESPIRATORY-> Acute on chronic hypercapneic respiratory failure 2/2 Sepsis - on NC, satting in mid 's. - albuterol nebulizer q6h prn RENAL-> ESRD - Nephrology (Dr. Molina) recs appreciated - HD yesterday - ultrafiltrate volume as tolerated - monitor lytes - renal diet - monitor bp INFECTIOUS DISEASE-> Septic shock - continue weaning levophed - c/w midodrine - hypotensive, no leukocytosis, afebrile - pt chronically hypotensive - c diff hx - 1 dose of vanco given for cellulitis. ENDOCRINE-> Hypothyroidism - continue home Synthroid - BGM q6h - ISS HEMATOLOGY-> Anemia/thrombocytopenia 2/2 Sepsis/ESRD - FOBT negative - Hgb stable 9.1, continuing to monitor if Hb < 7 will transfuse - thrombocytopenia improved to normal, continuing to monitor Vascular RUE edema - duplex US negative for thrombosis F/E/N - no standing fluids - continue to monitor electrolytes and replete as necessary, less aggressive hypokalemia and hypophospatemia replacement in setting of ESRD - dysphagia ground and nectar thick fluids. PROPHYLAXIS - c/w Xarelto CODE - full code DISPO - continuing to monitor on ICU. Visit type - Emergency Visit Emergency Visit: Yes ED Registration Date: 01/26/19 Care time: The patient presented to the Emergency Department on the above date and was hospitalized for further evaluation of their emergent condition. - New Patient This patient is new to me today: No - Critical Care Critical Care patient: Yes Total Critical Care Time (in minutes): 35 Critical Care Statement: The care of this patient involved high complexity decision making to prevent further life threatening deterioration of the patient 's condition and/or to evaluate & treat vital organ system(s) failure or risk of failure. - Discharge Referral Referred to [facility] Med [facility] No ATTENDING PHYSICIAN STATEMENT I saw and evaluated the patient. I reviewed the resident's note and discussed the case with the resident. I agree with the resident's findings and plan as documented. SUBJECTIVE: OBJECTIVE: ASSESSMENT AND PLAN:
[2019-02-10] MEDS: RIVAROXABAN 15 MG TABLET PO SCH (18:08)
[2019-02-10] MEDS: NOREPINEPHRINE BITARTRATE 8,000 MCG in DEXTROSE 5%-WATER - 492 ML IV SCH (18:50)
[2019-02-10] MEDS: MELATONIN 5 MG TABLETS PO SCH (21:50)
[2019-02-11] MEDS: INSULIN SLIDING SCALE (NOVOLOG) 1 VIAL SQ SCH ×4 (06:22→22:57)
[2019-02-11] MEDS: LEVOTHYROXINE NA 50 MCG TABLET (FP) PO SCH (06:37)
[2019-02-11 06:40] LABS: BASO % 1.2 % (0-2.0); MCH 30.2 pg (25.7-33.7); MCHC 30.9 g/dl (32.0-36.0); MEAN CELL VOLUME 97.6 fl (80-96); MEAN PLT VOLUME 7.9 fl (7.5-11.1); MONO % 8.4 % (3.8-10.2); NEUT % 60.4 % (42.8-82.8); PLATELET COUNT 193 K/MM3 (134-434); RBC 2.97 M/mm3 (3.60-5.2); RDW 19.9 % (11.6-15.6); WHITE BLOOD COUNT 4.8 K/mm3 (4.0-10.0)
[2019-02-11 06:48] LABS: ALBUMIN 2.6 g/dl (3.4-5.0); BILIRUBIN,TOTAL 0.4 mg/dL (0.2-1); BLOOD UREA NITROGEN 30.8 mg/dL (7-18); CALCIUM 8.7 mg/dL (8.5-10.1); CREATININE 3.3 mg/dL (0.55-1.3); POTASSIUM 5.1 mmol/L (3.5-5.1); TOT PROT 6.5 g/dl (6.4-8.2)
--- NOTE | 2019-02-11 08:12 | PN ---
Progress Note, Physician Chief Complaint: alert denies CP TELE: AF, controlled w/ short self limited run NSVT History of Present Illness: remains on pressors - Current Medication List Current Medications: Active Medications Acetaminophen (Tylenol -) 650 mg PO Q4H PRN PRN Reason: PAIN LEVEL 1 - 3 Last Admin: 02/08/19 23:32 Dose: 650 mg Amino Acids (Prosource No Carb Liquid Pkt) 30 ml PO BID@0800,1730 [facility] Last Admin: 02/10/19 19:00 Dose: Not Given Epoetin Memo (Procrit -) 10,000 unit IVPUSH ONCE ONE Stop: 02/11/19 13:04 Norepinephrine Bitartrate 8, (000 mcg/ Dextrose) 500 mls @ 18.75 mls/hr IV TITR [facility]; Protocol Last Admin: 02/10/19 18:50 Dose: 2 mcg/min, 7.5 mls/hr Sodium Chloride (Normal Saline -) 250 mls @ 3,000 mls/hr IV PRN PRN PRN Reason: Hypotension during Dialysis Sodium Chloride (Normal Saline -) 250 mls @ 3,000 mls/hr IV PRN PRN PRN Reason: Hypotension during Dialysis Stop: 02/11/19 13:04 Insulin Aspart (Novolog Vial Sliding Scale -) 1 vial SQ ACHS [facility]; Protocol Last Admin: 02/11/19 06:22 Dose: Not Given Levothyroxine Sodium (Synthroid -) 50 mcg PO DAILY@0700 [facility] Last Admin: 02/11/19 06:37 Dose: 50 mcg Lidocaine/Prilocaine (Emla -) 1 applic TP QID PRN PRN Reason: HEMORRHOIDS Melatonin (Melatonin) 5 mg PO HS [facility] Last Admin: 02/10/19 21:50 Dose: 5 mg Midodrine (Proamatine -) 10 mg PO TID-MID [facility] Last Admin: 02/10/19 18:08 Dose: 10 mg Multivit/Ca Carb/B Cmplx/FA/Prenat (Nephro-Evert -) 1 tablet PO DAILY [facility] Last Admin: 02/10/19 10:30 Dose: 1 tablet Nystatin (Mycostatin Ointment -) 1 applic TP BID [facility] Last Admin: 02/10/19 21:51 Dose: 1 applic Ondansetron HCl (Zofran -) 4 mg PO Q6H PRN PRN Reason: NAUSEA AND/OR VOMITING Pantoprazole Sodium (Protonix Iv) 40 mg IVPUSH DAILY [facility] Last Admin: 02/10/19 11:30 Dose: 40 mg Rivaroxaban (Xarelto) 15 mg PO DAILY@1800 [facility] Last Admin: 02/10/19 18:08 Dose: 15 mg Sertraline HCl (Zoloft -) 50 mg PO DAILY [facility] Last Admin: 02/10/19 11:31 Dose: 50 mg Silver Sulfadiazine (Silvadene -) 1 applic TP BID [facility] Last Admin: 02/10/19 21:51 Dose: 1 applic - Objective Vital Signs: Vital Signs Temperature 97.6 F 02/11/19 02:00 Pulse Rate 83 02/11/19 06:00 Respiratory Rate 16 02/11/19 06:00 Blood Pressure 103/61 02/11/19 06:00 O2 Sat by Pulse Oximetry (%) 99 02/10/19 21:00 Constitutional: Yes: No Distress Cardiovascular: Yes: Pulse Irregular Respiratory: Yes: Other (clear anteriorly, laterally) Gastrointestinal: Yes: Soft, Abdomen, Obese Edema: Yes Edema: LLE: 1+, RLE: 1+ Labs: CBC, BMP 02/11/19 05:45 02/11/19 05:45 INR, PTT INR 1.76 (0.83-1.09) H 01/27/19 05:45 - ....Imaging EKG: Image Reviewed Assessment/Plan DATA: Echo 12/01: nl LV function, RV mod to severely dilated, RV function mod to severely reduced, mod dilated LA/RA, RVSP 40-50 mmHg, mod TR Echo 01/2019 - LV function slightly worsened, 45-50%, LA mod dilated, RV mod to severely dilated, tr AR, RV function mod to severely reduced, mild MR, mild to mod TR, RA mod to severely dilated, mobile echodensity in pleural space IMP: -Acute on chronic hypoxic/hypercapneic respiratory failure at HD, with bradycardia (40s-50s) -possible RLL PNA, sepsis -NSTEMI (troponin to 2): most likely Type II secondary to acute strain from CHF/ pulm HTN and acute resp failure, vs sec to hypotension -septic shock on Levophed, doubt cardiogenic shock -HFpEF, pulmonary HTN, RV dysfunction -ESRD on HD -h/o DVT /PE on AC REC: -now extubated -continue to wean off levophed as bp allows -repeat echo with LV function slightly worsened compared to prior, RV function is mod to severely reduced (stable) -repeat echo also shows echodensity in pleural space - consider chest imaging per critical care -HD as per renal for volume management -Cont xarelto (anemia, PLTs stable) -hold AVN blockers --> HRs ok -cont midodrine for bp support at HD -will defer ischemia evaluation as this will not enrollment management manager. She is at prohibitive risk for invasive tx strategy given extremely poor functional status with severe comorbidities at present. Will not tolerate signif b-blockade , though will try to give low dose if can tolerate, once she is off pressors. -no ASA for now given pt on Xarelto with mild anemia/thrombocytopenia (and likely dysfunctional PLTs in HD pt), and hi risk for bleeding -if she recovers from the acute illness will potentially reconsider above approach
[2019-02-11] MEDS: AMINO ACIDS/PROTEIN HYDROLYS 30 ML LIQUID.PKT PO SCH ×2 (08:57→17:39)
[2019-02-11] MEDS: PANTOPRAZOLE SODIUM 40 MG VIAL IVPUSH SCH (09:07)
[2019-02-11] MEDS: SERTRALINE HCL 50 MG TABLET (FP) PO SCH (09:07)
[2019-02-11] MEDS: NYSTATIN 100000 UNIT/GM TOPICAL OINTMENT 15 GM TUBE TP SCH ×2 (09:08→22:57)
[2019-02-11] MEDS: MIDODRINE HCL 5 MG TABLET PO SCH ×3 (09:08→17:39)
[2019-02-11] MEDS: VITAMIN B COMP W-C 1 EA TABLET PO SCH (09:08)
[2019-02-11] MEDS ORDERED: SODIUM CHLORIDE 250 ML IV PRN (09:44)
[2019-02-11] MEDS ORDERED: EPOETIN ALFA 10,000 UNIT/1 ML VIAL IVPUSH ONE (09:45)
--- NOTE | 2019-02-11 10:47 | PN ---
Teaching Attending Note Name of Resident: Aishwarya Coombs ATTENDING PHYSICIAN STATEMENT I saw and evaluated the patient. I reviewed the resident's note and discussed the case with the resident. I agree with the resident's findings and plan as documented. SUBJECTIVE: Pt seen and examined in the ICU. Remains on low dose levophed gtt. Currently being dialyzed. OBJECTIVE: Vital Signs Period Temp Pulse Resp BP Sys/Jhaveri Pulse Ox Last 24 Hr 96.6 F-97.9 F 73-92 12- 70-111/38-68 99-99 Intake & Output 02/08/19 02/09/19 02/10/19 02/11/19 23:59 23:59 23:59 23:59 Intake Total 637.5 700 545 290 Output Total 3500 Balance 637.5 -2800 545 290 Weight 85.139 kg 83.5 kg 81.5 kg 84.232 kg Gen: mildly tachypneic at rest Heart: RRR Lung: decreased breath sounds at the bases Abd: soft, nontender Ext: + edema CBC, BMP 02/11/19 05:45 02/11/19 05:45 Active Medications Acetaminophen (Tylenol -) 650 mg PO Q4H PRN PRN Reason: PAIN LEVEL 1 - 3 Last Admin: 02/08/19 23:32 Dose: 650 mg Amino Acids (Prosource No Carb Liquid Pkt) 30 ml PO BID@0800,1730 [facility] Last Admin: 02/11/19 08:57 Dose: 30 ml Norepinephrine Bitartrate 8, (000 mcg/ Dextrose) 500 mls @ 18.75 mls/hr IV TITR [facility]; Protocol Last Admin: 02/10/19 18:50 Dose: 2 mcg/min, 7.5 mls/hr Sodium Chloride (Normal Saline -) 250 mls @ 3,000 mls/hr IV PRN PRN PRN Reason: Hypotension during Dialysis Sodium Chloride (Normal Saline -) 250 mls @ 3,000 mls/hr IV PRN PRN PRN Reason: Hypotension during Dialysis Insulin Aspart (Novolog Vial Sliding Scale -) 1 vial SQ ACHS [facility]; Protocol Last Admin: 02/11/19 06:22 Dose: Not Given Levothyroxine Sodium (Synthroid -) 50 mcg PO DAILY@0700 [facility] Last Admin: 02/11/19 06:37 Dose: 50 mcg Lidocaine/Prilocaine (Emla -) 1 applic TP QID PRN PRN Reason: HEMORRHOIDS Melatonin (Melatonin) 5 mg PO HS [facility] Last Admin: 02/10/19 21:50 Dose: 5 mg Midodrine (Proamatine -) 10 mg PO TID-MID [facility] Last Admin: 02/11/19 09:08 Dose: 10 mg Multivit/Ca Carb/B Cmplx/FA/Prenat (Nephro-Evert -) 1 tablet PO DAILY [facility] Last Admin: 02/11/19 09:08 Dose: 1 tablet Nystatin (Mycostatin Ointment -) 1 applic TP BID [facility] Last Admin: 02/11/19 09:08 Dose: 1 applic Ondansetron HCl (Zofran -) 4 mg PO Q6H PRN PRN Reason: NAUSEA AND/OR VOMITING Pantoprazole Sodium (Protonix Iv) 40 mg IVPUSH DAILY [facility] Last Admin: 02/11/19 09:07 Dose: 40 mg Rivaroxaban (Xarelto) 15 mg PO DAILY@1800 [facility] Last Admin: 02/10/19 18:08 Dose: 15 mg Sertraline HCl (Zoloft -) 50 mg PO DAILY [facility] Last Admin: 02/11/19 09:07 Dose: 50 mg Silver Sulfadiazine (Silvadene -) 1 applic TP BID [facility] Last Admin: 02/10/19 21:51 Dose: 1 applic ASSESSMENT AND PLAN: Acute on Chronic Hypoxic and Hypercapneic Respiratory Failure improving r/o Pneumonia Shock likely Septic r/o Autonomic Dysfunction Volume Overload ESRD on HD +Troponins likely Demand Ischemia Pulmonary HTN h/o PE/DVT - completed antibiotics - taper off pressors, maintain MAP >55 - continue midodrine - HD per renal with ultrafiltration - taper FiO2 to keep SpO2 >90% - continue anticoagulation - DVT/GI prophylaxis - continue ICU monitoring while on pressors critical care time spent in reviewing chart, evaluating patient and formulating plan 35 min
[2019-02-11] MEDS: SILVER SULFADIAZINE 1% TOP CREAM 400 GM JAR TP SCH ×2 (10:51→22:57)
--- NOTE | 2019-02-11 11:32 | PN ---
Progress Note, Physician Chief Complaint: seen and examined in icu on levophed at 6 mcg currently getting HD awake alert - Current Medication List Current Medications: Active Medications Acetaminophen (Tylenol -) 650 mg PO Q4H PRN PRN Reason: PAIN LEVEL 1 - 3 Last Admin: 02/08/19 23:32 Dose: 650 mg Amino Acids (Prosource No Carb Liquid Pkt) 30 ml PO BID@0800,1730 [facility] Last Admin: 02/11/19 08:57 Dose: 30 ml Norepinephrine Bitartrate 8, (000 mcg/ Dextrose) 500 mls @ 18.75 mls/hr IV TITR [facility]; Protocol Last Titration: 02/11/19 10:52 Dose: 6 mcg/min, 22.5 mls/hr Sodium Chloride (Normal Saline -) 250 mls @ 3,000 mls/hr IV PRN PRN PRN Reason: Hypotension during Dialysis Sodium Chloride (Normal Saline -) 250 mls @ 3,000 mls/hr IV PRN PRN PRN Reason: Hypotension during Dialysis Insulin Aspart (Novolog Vial Sliding Scale -) 1 vial SQ ACHS [facility]; Protocol Last Admin: 02/11/19 06:22 Dose: Not Given Levothyroxine Sodium (Synthroid -) 50 mcg PO DAILY@0700 [facility] Last Admin: 02/11/19 06:37 Dose: 50 mcg Lidocaine/Prilocaine (Emla -) 1 applic TP QID PRN PRN Reason: HEMORRHOIDS Melatonin (Melatonin) 5 mg PO HS [facility] Last Admin: 02/10/19 21:50 Dose: 5 mg Midodrine (Proamatine -) 10 mg PO TID-MID [facility] Last Admin: 02/11/19 09:08 Dose: 10 mg Multivit/Ca Carb/B Cmplx/FA/Prenat (Nephro-Evert -) 1 tablet PO DAILY [facility] Last Admin: 02/11/19 09:08 Dose: 1 tablet Nystatin (Mycostatin Ointment -) 1 applic TP BID [facility] Last Admin: 02/11/19 09:08 Dose: 1 applic Ondansetron HCl (Zofran -) 4 mg PO Q6H PRN PRN Reason: NAUSEA AND/OR VOMITING Pantoprazole Sodium (Protonix Iv) 40 mg IVPUSH DAILY [facility] Last Admin: 02/11/19 09:07 Dose: 40 mg Rivaroxaban (Xarelto) 15 mg PO DAILY@1800 [facility] Last Admin: 02/10/19 18:08 Dose: 15 mg Sertraline HCl (Zoloft -) 50 mg PO DAILY [facility] Last Admin: 02/11/19 09:07 Dose: 50 mg Silver Sulfadiazine (Silvadene -) 1 applic TP BID [facility] Last Admin: 02/11/19 10:51 Dose: 1 applic - Objective Vital Signs: Vital Signs Temperature 96.6 F L 02/11/19 08:00 Pulse Rate 92 H 02/11/19 10:52 Respiratory Rate 15 02/11/19 10:00 Blood Pressure 62/25 L 02/11/19 10:52 O2 Sat by Pulse Oximetry (%) 99 02/11/19 09:00 Constitutional: Yes: Calm Cardiovascular: Yes: Regular Rate and Rhythm, S1, S2 Respiratory: Yes: Diminished Gastrointestinal: Yes: Normal Bowel Sounds, Soft Extremities: Yes: Erythema (of right hand and two fingers slightly better) Edema: Yes Labs: CBC, BMP 02/11/19 05:45 02/11/19 05:45 INR, PTT INR 1.76 (0.83-1.09) H 01/27/19 05:45 Problem List - Problems (1) Hand swelling Assessment/Plan: got one dose of iv vancomycin yesterday Code(s): M79.89 - OTHER SPECIFIED SOFT TISSUE DISORDERS (2) Hypotension Assessment/Plan: on levophed- trying to wean off pressors iv abx vancomcyin given one dose yesterday for possible hand cellulitis midodrine standing order wbc trending down keep MAP> 55 Code(s): I95.9 - HYPOTENSION, UNSPECIFIED Qualifiers: Hypotension type: unspecified hypotension type Qualified Code(s): I95.9 - Hypotension, unspecified (3) Acute respiratory failure Assessment/Plan: improved completed abx for possible pna Code(s): J96.00 - ACUTE RESPIRATORY FAILURE, UNSP W HYPOXIA OR HYPERCAPNIA Qualifiers: Respiratory failure complication: hypoxia Qualified Code(s): J96.01 - Acute respiratory failure with hypoxia (4) Hypothyroid Assessment/Plan: on synthroid Code(s): E03.9 - HYPOTHYROIDISM, UNSPECIFIED (5) ESRD on hemodialysis Assessment/Plan: HD per renal epogen with HD Code(s): N18.6 - END STAGE RENAL DISEASE; Z99.2 - DEPENDENCE ON RENAL DIALYSIS (6) H/O deep venous thrombosis Assessment/Plan: on xarelto Code(s): Z86.718 - PERSONAL HISTORY OF OTHER VENOUS THROMBOSIS AND EMBOLISM (7) Elevated troponin Assessment/Plan: NSTEMi- inc troponin secondary to strain from resp failure, septic shock Code(s): R74.8 - ABNORMAL LEVELS OF OTHER SERUM ENZYMES
[2019-02-11] MEDS ORDERED: NOREPINEPHRINE BITARTRATE 4 MG/4 ML ML IV ONE (11:33)
[2019-02-11] MEDS ORDERED: PT OWN MED DRAWER 7, Y5N ONE ×2 (12:21→21:05)
--- NOTE | 2019-02-11 12:52 | PN ---
Progress Note, Physician History of Present Illness: Pt seen and examined at bedside. She is tolerating HD. She feels that her breathing is improved. - Current Medication List Current Medications: Active Medications Acetaminophen (Tylenol -) 650 mg PO Q4H PRN PRN Reason: PAIN LEVEL 1 - 3 Last Admin: 02/08/19 23:32 Dose: 650 mg Amino Acids (Prosource No Carb Liquid Pkt) 30 ml PO BID@0800,1730 [facility] Last Admin: 02/11/19 08:57 Dose: 30 ml Norepinephrine Bitartrate 8, (000 mcg/ Dextrose) 500 mls @ 18.75 mls/hr IV TITR [facility]; Protocol Last Titration: 02/11/19 10:52 Dose: 6 mcg/min, 22.5 mls/hr Sodium Chloride (Normal Saline -) 250 mls @ 3,000 mls/hr IV PRN PRN PRN Reason: Hypotension during Dialysis Sodium Chloride (Normal Saline -) 250 mls @ 3,000 mls/hr IV PRN PRN PRN Reason: Hypotension during Dialysis Insulin Aspart (Novolog Vial Sliding Scale -) 1 vial SQ ACHS [facility]; Protocol Last Admin: 02/11/19 06:22 Dose: Not Given Levothyroxine Sodium (Synthroid -) 50 mcg PO DAILY@0700 [facility] Last Admin: 02/11/19 06:37 Dose: 50 mcg Lidocaine/Prilocaine (Emla -) 1 applic TP QID PRN PRN Reason: HEMORRHOIDS Melatonin (Melatonin) 5 mg PO HS [facility] Last Admin: 02/10/19 21:50 Dose: 5 mg Midodrine (Proamatine -) 10 mg PO TID-MID [facility] Last Admin: 02/11/19 09:08 Dose: 10 mg Multivit/Ca Carb/B Cmplx/FA/Prenat (Nephro-Evert -) 1 tablet PO DAILY [facility] Last Admin: 02/11/19 09:08 Dose: 1 tablet Nystatin (Mycostatin Ointment -) 1 applic TP BID [facility] Last Admin: 02/11/19 09:08 Dose: 1 applic Ondansetron HCl (Zofran -) 4 mg PO Q6H PRN PRN Reason: NAUSEA AND/OR VOMITING Pantoprazole Sodium (Protonix Iv) 40 mg IVPUSH DAILY [facility] Last Admin: 08/30/19 09:07 Dose: 40 mg Rivaroxaban (Xarelto) 15 mg PO DAILY@1800 [facility] Last Admin: 02/10/19 18:08 Dose: 15 mg Sertraline HCl (Zoloft -) 50 mg PO DAILY [facility] Last Admin: 02/11/19 09:07 Dose: 50 mg Silver Sulfadiazine (Silvadene -) 1 applic TP BID [facility] Last Admin: 02/11/19 10:51 Dose: 1 applic - Objective Vital Signs: Vital Signs Temperature 96.6 F L 02/11/19 08:00 Pulse Rate 91 H 02/11/19 12:43 Respiratory Rate 15 02/11/19 12:43 Blood Pressure 118/62 02/11/19 12:43 O2 Sat by Pulse Oximetry (%) 99 02/11/19 09:00 Constitutional: Yes: Calm Eyes: Yes: Conjunctiva Clear HENT: Yes: Atraumatic Neck: Yes: Supple Cardiovascular: Yes: S1, S2 Respiratory: Yes: On Nasal O2 Gastrointestinal: Yes: Soft, Abdomen, Obese Genitourinary: Yes: Incontinence Musculoskeletal: Yes: Muscle Weakness Edema: Yes Edema: LUE: Trace, RUE: Trace Neurological: Yes: Oriented Psychiatric: Yes: Oriented Labs: CBC, BMP 02/11/19 05:45 02/11/19 05:45 INR, PTT INR 1.76 (0.83-1.09) H 01/27/19 05:45 Problem List - Problems (1) Acute respiratory failure Code(s): J96.00 - ACUTE RESPIRATORY FAILURE, UNSP W HYPOXIA OR HYPERCAPNIA Qualifiers: Respiratory failure complication: hypoxia Qualified Code(s): J96.01 - Acute respiratory failure with hypoxia (2) ESRD on hemodialysis Code(s): N18.6 - END STAGE RENAL DISEASE; Z99.2 - DEPENDENCE ON RENAL DIALYSIS Assessment/Plan Current Medications Generic Name Dose Route Start Last Admin Trade Name Freq PRN Reason Stop Dose Admin Acetaminophen 650 mg 02/05/19 23:36 02/08/19 23:32 Tylenol - PO 650 mg Q4H PRN Administration PAIN LEVEL 1 - 3 Amino Acids 30 ml 01/31/19 17:30 02/11/19 08:57 Prosource No Carb Liquid Pkt PO 30 ml BID@0800,1730 [facility] Administration Norepinephrine Bitartrate 8, 500 mls @ 18.75 mls/hr 02/08/19 10:50 02/11/19 10:52 000 mcg/ Dextrose IV 6 mcg/min TITR [facility] 22.5 mls/hr Titration Protocol 5 MCG/MIN Sodium Chloride 250 mls @ 3,000 mls/hr 02/09/19 07:15 Normal Saline - IV PRN PRN Hypotension during Dialysis Sodium Chloride 250 mls @ 3,000 mls/hr 02/11/19 09:44 Normal Saline - IV PRN PRN Hypotension during Dialysis Insulin Aspart 1 vial 02/05/19 07:00 02/11/19 06:22 Novolog Vial Sliding Scale - SQ Not Given ACHS [facility] Protocol Levothyroxine Sodium 50 mcg 01/27/19 07:00 02/11/19 06:37 Synthroid - PO 50 mcg DAILY@0700 [facility] Administration Lidocaine/Prilocaine 1 applic 01/27/19 01:55 Emla - TP QID PRN HEMORRHOIDS Melatonin 5 mg 02/10/19 20:59 02/10/19 21:50 Melatonin PO 5 mg HS [facility] Administration Midodrine 10 mg 01/27/19 14:30 02/11/19 09:08 Proamatine - PO 10 mg TID-MID [facility] Administration Multivit/Ca Carb/B Cmplx/FA/Prenat 1 tablet 01/27/19 10:00 02/11/19 09:08 Nephro-Evert - PO 1 tablet DAILY [facility] Administration Nystatin 1 applic 01/27/19 22:00 02/11/19 09:08 Mycostatin Ointment - TP 1 applic BID [facility] Administration Ondansetron HCl 4 mg 01/27/19 01:57 Zofran - PO Q6H PRN NAUSEA AND/OR VOMITING Pantoprazole Sodium 40 mg 01/31/19 10:00 02/11/19 09:07 Protonix Iv IVPUSH 40 mg DAILY [facility] Administration Rivaroxaban 15 mg 01/27/19 18:00 02/10/19 18:08 Xarelto PO 15 mg DAILY@1800 [facility] Administration Sertraline HCl 50 mg 01/27/19 10:00 02/11/19 09:07 Zoloft - PO 50 mg DAILY [facility] Administration Silver Sulfadiazine 1 applic 01/27/19 10:00 02/11/19 10:51 Silvadene - TP 1 applic BID [facility] Administration Impression 1. ESRD 2. change in mental status 3. resp failure requiring intubation 4. chf 5. dvt 6. anemia 7. a-fib 8. hypothyroid 9. pleural effusion Plan - HD today - renal diet - 2 k bath on HD today as potassium elevated - discussed with family - fluid restriction - monitor bp - HD right thigh cath, 3 k bath, 3 15 time, 400 abf
[2019-02-11] MEDS: NOREPINEPHRINE BITARTRATE 8,000 MCG in DEXTROSE 5%-WATER - 492 ML IV SCH (14:21)
--- NOTE | 2019-02-11 16:19 | PN ---
Physical Exam: SUBJECTIVE: Patient seen and examined at bedside. pt has no acute complaints today. OBJECTIVE: Vital Signs Period Temp Pulse Resp BP Sys/Jhaveri Pulse Ox Last 24 Hr 96.6 F-97.9 F 74-92 12-22 62-118/25-68 99-99 GENERAL: The patient is awake, alert, in no acute distress. NECK: Trachea midline, full range of motion, supple. LUNGS: Breath sounds decreased, no accessory muscle use. HEART:irregular rate and rhythm, S1, S2 + murmur ABDOMEN: Soft, nontender, nondistended, normoactive bowel sounds, no guarding EXTREMITIES: 2+ pulses, warm, well-perfused,R UE edema and erythema. not warm . SKIN: Warm, dry, normal turgor, no rashes or lesions noted Laboratory Last Values WBC 4.8 K/mm3 (4.0-10.0) 02/11/19 05:45 RBC 2.97 M/mm3 (3.60-5.2) L 02/11/19 05:45 Hgb 9.0 GM/dL (10.7-15.3) L 02/11/19 05:45 Hct 29.0 % (32.4-45.2) L 02/11/19 05:45 MCV 97.6 fl (80-96) H 02/11/19 05:45 MCH 30.2 pg (25.7-33.7) 02/11/19 05:45 MCHC 30.9 g/dl (32.0-36.0) L 02/11/19 05:45 RDW 19.9 % (11.6-15.6) H 02/11/19 05:45 Plt Count 193 K/MM3 (134-434) 02/11/19 05:45 MPV 7.9 fl (7.5-11.1) 02/11/19 05:45 Absolute Neuts (auto) 2.9 K/mm3 (1.5-8.0) 02/11/19 05:45 Neutrophils % 60.4 % (42.8-82.8) 02/11/19 05:45 Lymphocytes % 27.0 % (8-40) D 02/11/19 05:45 Monocytes % 8.4 % (3.8-10.2) 02/11/19 05:45 Eosinophils % 3.0 % (0-4.5) 02/11/19 05:45 Basophils % 1.2 % (0-2.0) 02/11/19 05:45 Nucleated RBC % 0 % (0-0) 02/11/19 05:45 PT with INR 20.90 SEC (9.7-13.0) H 01/27/19 05:45 INR 1.76 (0.83-1.09) H 01/27/19 05:45 PTT (Actin FS) 33.3 SECONDS (25.2-36.5) 01/27/19 05:45 Anticoagulation Therapy No Result Required. 01/27/19 06:40 Puncture Site Left radial 01/27/19 06:40 ABG pH 7.34 (7.35-7.45) L 01/27/19 06:40 ABG pCO2 at Pt Temp 38.7 mmHg (35-45) 01/27/19 06:40 ABG pO2 at Pt Temp 205 mmHg (80-105) H 01/27/19 06:40 ABG HCO3 20.1 mmol/L (22-27) L 01/27/19 06:40 ABG O2 Sat (Measured) 99.9 % (95-98) H 01/27/19 06:40 ABG O2 Content 15.0 % vol (15-22) 01/27/19 06:40 ABG Base Excess -4.7 meq/l (-2-2) L 01/27/19 06:40 Pedro Test Positive 01/27/19 06:40 Carboxyhemoglobin 1.5 % (0-2) 01/26/19 23:30 Methemoglobin 0.2 % (0-2) 01/26/19 23:30 O2 Delivery Device Vent 01/27/19 06:40 Oxygen Flow Rate 60% 01/27/19 06:40 Vent Mode A/c 01/27/19 06:40 Vent Rate 16 01/27/19 06:40 Mechanical Rate Yes 01/27/19 06:40 PEEP 5.0 cmH2O 01/27/19 06:40 Pressure Support Vent 450 01/27/19 06:40 Sodium 134 mmol/L (136-145) L 02/11/19 05:45 Potassium 5.1 mmol/L (3.5-5.1) 02/11/19 05:45 Chloride 98 mmol/L (98-107) 02/11/19 05:45 Carbon Dioxide 32 mmol/L (21-32) 02/11/19 05:45 Anion Gap 4 MMOL/L (8-16) L 02/11/19 05:45 BUN 30.8 mg/dL (7-18) H 02/11/19 05:45 Creatinine 3.3 mg/dL (0.55-1.3) H 02/11/19 05:45 Est GFR (CKD-EPI)AfAm 15.50 02/11/19 05:45 Est GFR (CKD-EPI)NonAf 13.37 02/11/19 05:45 POC Glucometer 165 UNITS (80-120) 02/11/19 11:12 Random Glucose 99 mg/dL (74-106) 02/11/19 05:45 Lactic Acid 2.1 mmol/L (0.4-2.0) H 01/27/19 02:00 Calcium 8.7 mg/dL (8.5-10.1) 02/11/19 05:45 Phosphorus 4.2 mg/dL (2.5-4.9) 02/10/19 05:15 Magnesium 2.0 mg/dL (1.8-2.4) 02/10/19 05:15 Total Bilirubin 0.4 mg/dL (0.2-1) 02/11/19 05:45 AST 15 U/L (15-37) 02/11/19 05:45 ALT 18 U/L (13-61) 02/11/19 05:45 Alkaline Phosphatase 137 U/L (45-117) H 02/11/19 05:45 Creatine Kinase 76 U/L (26-192) 01/27/19 02:00 Troponin I 2.10 ng/ml (0.00-0.05) H* 01/29/19 05:30 Total Protein 6.5 g/dl (6.4-8.2) 02/11/19 05:45 Albumin 2.6 g/dl (3.4-5.0) L 02/11/19 05:45 TSH 4.97 uIU/ml (0.358-3.74) H 02/10/19 05:15 Stool Occult Blood Negative (NEGATIVE) 02/03/19 00:30 Random Vancomycin 20.4 ug/ml (18-26) 02/02/19 06:00 Digoxin 0.10 ng/ml (0.8-2.0) L 01/26/19 23:00 Current Medications Acetaminophen (Tylenol -) 650 mg PO Q4H PRN PRN Reason: PAIN LEVEL 1 - 3 Last Admin: 02/08/19 23:32 Dose: 650 mg Amino Acids (Prosource No Carb Liquid Pkt) 30 ml PO BID@0800,1730 [facility] Last Admin: 02/11/19 08:57 Dose: 30 ml Norepinephrine Bitartrate 8, (000 mcg/ Dextrose) 500 mls @ 18.75 mls/hr IV TITR [facility]; Protocol Last Admin: 02/11/19 14:21 Dose: 6 mcg/min, 22.5 mls/hr Sodium Chloride (Normal Saline -) 250 mls @ 3,000 mls/hr IV PRN PRN PRN Reason: Hypotension during Dialysis Sodium Chloride (Normal Saline -) 250 mls @ 3,000 mls/hr IV PRN PRN PRN Reason: Hypotension during Dialysis Insulin Aspart (Novolog Vial Sliding Scale -) 1 vial SQ ACHS [facility]; Protocol Last Admin: 02/11/19 11:15 Dose: Not Given Levothyroxine Sodium (Synthroid -) 50 mcg PO DAILY@0700 [facility] Last Admin: 02/11/19 06:37 Dose: 50 mcg Lidocaine/Prilocaine (Emla -) 1 applic TP QID PRN PRN Reason: HEMORRHOIDS Melatonin (Melatonin) 5 mg PO HS [facility] Last Admin: 02/10/19 21:50 Dose: 5 mg Midodrine (Proamatine -) 10 mg PO TID-MID [facility] Last Admin: 02/11/19 14:22 Dose: 10 mg Multivit/Ca Carb/B Cmplx/FA/Prenat (Nephro-Evert -) 1 tablet PO DAILY [facility] Last Admin: 02/11/19 09:08 Dose: 1 tablet Nystatin (Mycostatin Ointment -) 1 applic TP BID [facility] Last Admin: 02/11/19 09:08 Dose: 1 applic Ondansetron HCl (Zofran -) 4 mg PO Q6H PRN PRN Reason: NAUSEA AND/OR VOMITING Pantoprazole Sodium (Protonix Iv) 40 mg IVPUSH DAILY [facility] Last Admin: 02/11/19 09:07 Dose: 40 mg Rivaroxaban (Xarelto) 15 mg PO DAILY@1800 [facility] Last Admin: 02/10/19 18:08 Dose: 15 mg Sertraline HCl (Zoloft -) 50 mg PO DAILY [facility] Last Admin: 02/11/19 09:07 Dose: 50 mg Silver Sulfadiazine (Silvadene -) 1 applic TP BID [facility] Last Admin: 02/11/19 10:51 Dose: 1 applic ASSESSMENT/PLAN: 73 yo F with a PMH of ESRD, Orthostatic Hypotension, CHF, DM, hypothyroid, COPD , Afib (on Xarelto), DVTs, Pulmonary Edema and multiple prior admissions for pneumonia admitted to the ICU for unresponsiveness secondary to acute hypercapneic respiratory failure and hypotension likely 2/2 dialysis. Acute on Chronic hypercapnic respiratory failure Sepsis ESRD HFrEF Hypothyroidism Anemia, thrombocytopenia LINES - L femoral central line placed 01/26, will need prolonged access due to difficulty in obtaining access elsewhere, stenosis centrally - R femoral Tesio catheter CARDIOLOGY Orthostatic hypotension likely 2/2 hemodialysis HFrEF Afib - on Levophed 2mcq this morning, currently BP stabilized with 4mcg will wean off pressors throughout the day maintaining MAP >50%. - previous echo 12/08/18 showing normal EF, moderate to severe right ventricle dilation, increased right ventricular systolic pressure. -repeat echo with LV function slightly worsened compared to prior, RV function is mod to severely reduced (stable) -repeat echo shows echodensity in pleural space - consider chest imaging per critical care -HD for volume management -C/w xarelto for A fib -continue to hold AV node blockers -c/w midodrine for bp support - Pt unable to tolerate BB at this time, will try low dose if can tolerate, once she is off pressors. -no ASA for now given pt on Xarelto with mild anemia/thrombocytopenia (and likely dysfunctional PLTs in HD pt), and high risk for bleeding at present -if she recovers from the acute illness will potentially reconsider above approach RESPIRATORY-> Acute on chronic hypercapneic respiratory failure 2/2 Sepsis - on NC, satting in mid 's. - albuterol nebulizer q6h prn RENAL-> ESRD - Nephrology (Dr. Molina) recs appreciated - HD today - ultrafiltrate volume as tolerated - monitor lytes - renal diet - monitor bp INFECTIOUS DISEASE-> Septic shock - requiring pressors will wean levophed - c/w midodrine - hypotensive, no leukocytosis, afebrile - pt chronically hypotensive - hx of cdiff, cautious approach to continuing antibiotics - blood cxs negative -ID recs appreciated ENDOCRINE-> Hypothyroidism - continue home Synthroid - BGM q6h - ISS HEMATOLOGY-> Anemia/thrombocytopenia 2/2 Sepsis/ESRD - FOBT negative - Hgb stable 9.1, continuing to monitor if Hb < 7 will transfuse - thrombocytopenia improved, continue to monitor Vascular RUE edema - duplex US negative for thrombosis F/E/N - continue to monitor electrolytes and replete as necessary, less aggressive hypokalemia and hypophospatemia replacement in setting of ESRD - dysphagia ground and nectar thick fluids. PROPHYLAXIS - c/w Xarelto CODE - full code DISPO - continuing to monitor on ICU. Visit type - Emergency Visit Emergency Visit: No - New Patient This patient is new to me today: No - Critical Care Critical Care patient: Yes Total Critical Care Time (in minutes): 36 Critical Care Statement: The care of this patient involved high complexity decision making to prevent further life threatening deterioration of the patient 's condition and/or to evaluate & treat vital organ system(s) failure or risk of failure. - Discharge Referral Referred to [facility] No ATTENDING PHYSICIAN STATEMENT I saw and evaluated the patient. I reviewed the resident's note and discussed the case with the resident. I agree with the resident's findings and plan as documented. SUBJECTIVE: OBJECTIVE: ASSESSMENT AND PLAN:
[2019-02-11] MEDS: RIVAROXABAN 15 MG TABLET PO SCH (17:39)
[2019-02-11] MEDS ORDERED: DEXTROSE 50%-WATER 25 GM/50 ML DISP.SYRIN ONE (22:42)
[2019-02-11] MEDS ORDERED: DEXTROSE 50%-WATER - 25 GM/50 ML VIAL IVPUSH ONE (22:43)
[2019-02-11] MEDS: MELATONIN 5 MG TABLETS PO SCH (22:57)
[2019-02-12 06:28] LABS: BASO % 1.4 % (0-2.0); EOS % 2.1 % (0-4.5); HEMATOCRIT 28.6 % (32.4-45.2); LYMPH % 28.9 % (8-40); MCH 30.6 pg (25.7-33.7); MCHC 31.5 g/dl (32.0-36.0); MEAN CELL VOLUME 97.3 fl (80-96); MEAN PLT VOLUME 7.9 fl (7.5-11.1); MONO % 8.7 % (3.8-10.2); NEUT % 58.9 % (42.8-82.8); PLATELET COUNT 152 K/MM3 (134-434); RBC 2.94 M/mm3 (3.60-5.2); RDW 20.2 % (11.6-15.6); WHITE BLOOD COUNT 4.6 K/mm3 (4.0-10.0)
[2019-02-12 07:01] LABS: ALBUMIN 2.6 g/dl (3.4-5.0); BILIRUBIN,TOTAL 0.4 mg/dL (0.2-1); BLOOD UREA NITROGEN 24.4 mg/dL (7-18); CALCIUM 8.2 mg/dL (8.5-10.1); CREATININE 2.6 mg/dL (0.55-1.3); MAGNESIUM 2.1 mg/dL (1.8-2.4); PHOSPHOROUS 3.9 mg/dL (2.5-4.9); POTASSIUM 4.4 mmol/L (3.5-5.1); TOT PROT 6.4 g/dl (6.4-8.2)
[2019-02-12] MEDS: INSULIN SLIDING SCALE (NOVOLOG) 1 VIAL SQ SCH ×3 (07:22→17:36)
[2019-02-12] MEDS: AMINO ACIDS/PROTEIN HYDROLYS 30 ML LIQUID.PKT PO SCH ×2 (08:41→17:36)
[2019-02-12] MEDS: LEVOTHYROXINE NA 50 MCG TABLET (FP) PO SCH (08:41)
--- NOTE | 2019-02-12 09:26 | PN ---
Physical Exam: SUBJECTIVE: Patient seen and examined at bedside. Remains on Pressors. No acute events overnight. OBJECTIVE: Vital Signs Period Temp Pulse Resp BP Sys/Jhaveri Pulse Ox Last 24 Hr 97.0 F-98.1 F 78-96 12-23 62-118/25-65 99 GENERAL: Mild distress, anxious HEAD: At/NC EYES: EOMI Sclera Clear NECK: Trachea midline, full range of motion, supple. LUNGS: Decreased BS@ Bases HEART: irregular, + S1S2 ABDOMEN: Obese NDNT. EXTREMITIES: Edema RUE. Erythematous right index finger. SKIN: Warm, dry, normal turgor, no rashes or lesions noted Laboratory Results - last 24 hr 02/11/19 02/11/19 02/11/19 11:12 16:55 22:38 WBC RBC Hgb Hct MCV MCH MCHC RDW Plt Count MPV Absolute Neuts (auto) Neutrophils % Lymphocytes % Monocytes % Eosinophils % Basophils % Nucleated RBC % Sodium Potassium Chloride Carbon Dioxide Anion Gap BUN Creatinine Est GFR (CKD-EPI)AfAm Est GFR (CKD-EPI)NonAf POC Glucometer 165 189 55 Random Glucose Calcium Phosphorus Magnesium Total Bilirubin AST ALT Alkaline Phosphatase Total Protein Albumin 02/11/19 02/12/19 02/12/19 23:48 05:15 05:15 WBC 4.6 RBC 2.94 L Hgb 9.0 L Hct 28.6 L MCV 97.3 H MCH 30.6 MCHC 31.5 L RDW 20.2 H Plt Count 152 D MPV 7.9 Absolute Neuts (auto) 2.7 Neutrophils % 58.9 Lymphocytes % 28.9 Monocytes % 8.7 Eosinophils % 2.1 Basophils % 1.4 Nucleated RBC % 0 Sodium 134 L Potassium 4.4 Chloride 97 L Carbon Dioxide 31 Anion Gap 7 L BUN 24.4 H Creatinine 2.6 H Est GFR (CKD-EPI)AfAm 20.68 Est GFR (CKD-EPI)NonAf 17.84 POC Glucometer 104 Random Glucose 92 Calcium 8.2 L Phosphorus 3.9 Magnesium 2.1 Total Bilirubin 0.4 AST 17 ALT 15 Alkaline Phosphatase 146 H Total Protein 6.4 Albumin 2.6 L 02/12/19 07:03 WBC RBC Hgb Hct MCV MCH MCHC RDW Plt Count MPV Absolute Neuts (auto) Neutrophils % Lymphocytes % Monocytes % Eosinophils % Basophils % Nucleated RBC % Sodium Potassium Chloride Carbon Dioxide Anion Gap BUN Creatinine Est GFR (CKD-EPI)AfAm Est GFR (CKD-EPI)NonAf POC Glucometer 88 Random Glucose Calcium Phosphorus Magnesium Total Bilirubin AST ALT Alkaline Phosphatase Total Protein Albumin Active Medications Generic Name Dose Route Start Last Admin Trade Name Jagjitq PRN Reason Stop Dose Admin Acetaminophen 650 mg 02/05/19 23:36 02/08/19 23:32 Tylenol - PO 650 mg Q4H PRN Administration PAIN LEVEL 1 - 3 Amino Acids 30 ml 01/31/19 17:30 02/12/19 08:41 Prosource No Carb Liquid Pkt PO 30 ml BID@0800,1730 [facility] Administration Norepinephrine Bitartrate 8, 500 mls @ 18.75 mls/hr 02/08/19 10:50 02/11/19 23:53 000 mcg/ Dextrose IV 5 mcg/min TITR [facility] 18.75 mls/hr Titration Protocol 5 MCG/MIN Sodium Chloride 250 mls @ 3,000 mls/hr 02/09/19 07:15 Normal Saline - IV PRN PRN Hypotension during Dialysis Sodium Chloride 250 mls @ 3,000 mls/hr 02/11/19 09:44 Normal Saline - IV PRN PRN Hypotension during Dialysis Insulin Aspart 1 vial 02/05/19 07:00 02/12/19 07:22 Novolog Vial Sliding Scale - SQ Not Given ACHS [facility] Protocol Levothyroxine Sodium 50 mcg 01/27/19 07:00 02/12/19 08:41 Synthroid - PO 50 mcg DAILY@0700 [facility] Administration Lidocaine/Prilocaine 1 applic 01/27/19 01:55 Emla - TP QID PRN HEMORRHOIDS Melatonin 5 mg 02/10/19 20:59 02/11/19 22:57 Melatonin PO 5 mg HS [facility] Administration Midodrine 10 mg 01/27/19 14:30 02/11/19 17:39 Proamatine - PO 10 mg TID-MID [facility] Administration Multivit/Ca Carb/B Cmplx/FA/Prenat 1 tablet 01/27/19 10:00 02/11/19 09:08 Nephro-Evert - PO 1 tablet DAILY [facility] Administration Nystatin 1 applic 01/27/19 22:00 02/11/19 22:57 Mycostatin Ointment - TP 1 applic BID [facility] Administration Ondansetron HCl 4 mg 01/27/19 01:57 02/11/19 21:05 Zofran - PO 4 mg Q6H PRN Administration NAUSEA AND/OR VOMITING Pantoprazole Sodium 40 mg 01/31/19 10:00 02/11/19 09:07 Protonix Iv IVPUSH 40 mg DAILY [facility] Administration Rivaroxaban 15 mg 01/27/19 18:00 02/11/19 17:39 Xarelto PO 15 mg DAILY@1800 [facility] Administration Sertraline HCl 50 mg 01/27/19 10:00 02/11/19 09:07 Zoloft - PO 50 mg DAILY [facility] Administration Silver Sulfadiazine 1 applic 01/27/19 10:00 02/11/19 22:57 Silvadene - TP 1 applic BID [facility] Administration ASSESSMENT/PLAN: 73 yo F with a PMH of ESRD, Orthostatic Hypotension, CHF, DM, hypothyroid, COPD , Afib (on Xarelto), DVTs, Pulmonary Edema and multiple prior admissions for pneumonia admitted to the ICU for unresponsiveness secondary to acute hypercapneic respiratory failure and hypotension likely 2/2 dialysis. #CARDIOLOGY- Orthostatic hypotension likely 2/2 hemodialysis - Levophed increased to 8 mcq this morning, will try to wean off pressors throughout the day maintaining MAP >50%. Will Add Fludrocortisone 0.2 Daily - previous echo 12/08/18 showing normal EF, moderate to severe right ventricle dilation, increased right ventricular systolic pressure. -repeat echo with LV function slightly worsened compared to prior, RV function is mod to severely reduced (stable) -repeat echo shows echodensity in pleural space - consider chest imaging per critical care -HD for volume management -C/w xarelto for A fib -continue to hold AV node blockers -Midodrine 10 mg PO TID -Evaluated by Cardiology again today---> " Will not tolerate signif b-blockade, though will try to give low dose if can tolerate, once she is off pressors." #RESPIRATORY-> Acute on chronic hypercapneic respiratory failure 2/2 Sepsis - on NC, satting in mid 's. - albuterol nebulizer q6h prn RENAL-> ESRD - Nephrology on board - HD - monitor lytes - renal diet - monitor bp #INFECTIOUS DISEASE-> Septic shock - requiring pressors will wean levophed . Currently on 8 MCGs - c/w midodrine 10 mg po tid - hypotensive, no leukocytosis, afebrile - pt chronically hypotensive - hx of cdiff, cautious approach to continuing antibiotics - blood cxs negative -ID recs appreciated #ENDOCRINE-> Hypothyroidism - continue home Synthroid - BGM q6h - ISS #HEMATOLOGY-> Anemia/thrombocytopenia 2/2 Sepsis/ESRD - FOBT negative - Hgb stable 9.0, continuing to monitor if Hb < 7 will transfuse - thrombocytopenia improved, continue to monitor #Vascular RUE edema - duplex US negative for thrombosis #FEN - continue to monitor electrolytes and replete as necessary, less aggressive hypokalemia and hypophospatemia replacement in setting of ESRD - dysphagia ground and nectar thick fluids. #DVT ppx - c/w Xarelto -IV Protonix switched to PO #CODE - full code #DISPO - ICU. LINES - L femoral central line placed 01/26, will need prolonged access due to difficulty in obtaining access elsewhere, stenosis centrally. Will try to wean off pressors and remove line. - R femoral Tesio catheter Visit type - Emergency Visit Emergency Visit: Yes ED Registration Date: 01/26/19 Care time: The patient presented to the Emergency Department on the above date and was hospitalized for further evaluation of their emergent condition. - New Patient This patient is new to me today: No - Critical Care Critical Care patient: Yes Total Critical Care Time (in minutes): 35 Critical Care Statement: The care of this patient involved high complexity decision making to prevent further life threatening deterioration of the patient 's condition and/or to evaluate & treat vital organ system(s) failure or risk of failure. - Discharge Referral Referred to [facility] No ATTENDING PHYSICIAN STATEMENT I saw and evaluated the patient. I reviewed the resident's note and discussed the case with the resident. I agree with the resident's findings and plan as documented. SUBJECTIVE: OBJECTIVE: ASSESSMENT AND PLAN:
--- NOTE | 2019-02-12 09:42 | PN ---
Progress Note, Physician - Current Medication List Current Medications: Active Medications Acetaminophen (Tylenol -) 650 mg PO Q4H PRN PRN Reason: PAIN LEVEL 1 - 3 Last Admin: 02/08/19 23:32 Dose: 650 mg Amino Acids (Prosource No Carb Liquid Pkt) 30 ml PO BID@0800,1730 [facility] Last Admin: 02/12/19 08:41 Dose: 30 ml Norepinephrine Bitartrate 8, (000 mcg/ Dextrose) 500 mls @ 18.75 mls/hr IV TITR [facility]; Protocol Last Titration: 02/11/19 23:53 Dose: 5 mcg/min, 18.75 mls/hr Sodium Chloride (Normal Saline -) 250 mls @ 3,000 mls/hr IV PRN PRN PRN Reason: Hypotension during Dialysis Sodium Chloride (Normal Saline -) 250 mls @ 3,000 mls/hr IV PRN PRN PRN Reason: Hypotension during Dialysis Insulin Aspart (Novolog Vial Sliding Scale -) 1 vial SQ ACHS [facility]; Protocol Last Admin: 02/12/19 07:22 Dose: Not Given Levothyroxine Sodium (Synthroid -) 50 mcg PO DAILY@0700 [facility] Last Admin: 02/12/19 08:41 Dose: 50 mcg Lidocaine/Prilocaine (Emla -) 1 applic TP QID PRN PRN Reason: HEMORRHOIDS Melatonin (Melatonin) 5 mg PO HS [facility] Last Admin: 02/11/19 22:57 Dose: 5 mg Midodrine (Proamatine -) 10 mg PO TID-MID [facility] Last Admin: 02/11/19 17:39 Dose: 10 mg Multivit/Ca Carb/B Cmplx/FA/Prenat (Nephro-Evert -) 1 tablet PO DAILY [facility] Last Admin: 02/11/19 09:08 Dose: 1 tablet Nystatin (Mycostatin Ointment -) 1 applic TP BID [facility] Last Admin: 02/11/19 22:57 Dose: 1 applic Ondansetron HCl (Zofran -) 4 mg PO Q6H PRN PRN Reason: NAUSEA AND/OR VOMITING Last Admin: 02/11/19 21:05 Dose: 4 mg Pantoprazole Sodium (Protonix Iv) 40 mg IVPUSH DAILY [facility] Last Admin: 02/11/19 09:07 Dose: 40 mg Rivaroxaban (Xarelto) 15 mg PO DAILY@1800 [facility] Last Admin: 02/11/19 17:39 Dose: 15 mg Sertraline HCl (Zoloft -) 50 mg PO DAILY [facility] Last Admin: 02/11/19 09:07 Dose: 50 mg Silver Sulfadiazine (Silvadene -) 1 applic TP BID [facility] Last Admin: 02/11/19 22:57 Dose: 1 applic - Objective Vital Signs: Vital Signs Temperature 97.8 F 02/11/19 20:00 Pulse Rate 94 H 02/12/19 06:00 Respiratory Rate 22 H 02/12/19 06:00 Blood Pressure 110/65 02/12/19 06:00 O2 Sat by Pulse Oximetry (%) 99 02/11/19 21:00 Cardiovascular: Yes: S1, S2 Respiratory: Yes: Regular, CTA Bilaterally Gastrointestinal: Yes: Normal Bowel Sounds, Soft Edema: Yes Edema: RUE: 2+, RLE: 2+ Labs: CBC, BMP 02/12/19 05:15 02/12/19 05:15 INR, PTT INR 1.76 (0.83-1.09) H 01/27/19 05:45 Assessment/Plan - Problems (1) Hand swelling Assessment/Plan: got one dose of iv vancomycin yesterday Code(s): M79.89 - OTHER SPECIFIED SOFT TISSUE DISORDERS (2) Hypotension Assessment/Plan: on levophed- trying to wean off pressors iv abx vancomcyin given one dose yesterday for possible hand cellulitis midodrine standing order wbc trending down keep MAP> 55 Code(s): I95.9 - HYPOTENSION, UNSPECIFIED Qualifiers: Hypotension type: unspecified hypotension type Qualified Code(s): I95.9 - Hypotension, unspecified (3) Acute respiratory failure Assessment/Plan: improved completed abx for possible pna Code(s): J96.00 - ACUTE RESPIRATORY FAILURE, UNSP W HYPOXIA OR HYPERCAPNIA Qualifiers: Respiratory failure complication: hypoxia Qualified Code(s): J96.01 - Acute respiratory failure with hypoxia (4) Hypothyroid Assessment/Plan: on synthroid Code(s): E03.9 - HYPOTHYROIDISM, UNSPECIFIED (5) ESRD on hemodialysis Assessment/Plan: HD per renal epogen with HD Code(s): N18.6 - END STAGE RENAL DISEASE; Z99.2 - DEPENDENCE ON RENAL DIALYSIS (6) H/O deep venous thrombosis Assessment/Plan: on xarelto Code(s): Z86.718 - PERSONAL HISTORY OF OTHER VENOUS THROMBOSIS AND EMBOLISM (7) Elevated troponin Assessment/Plan: NSTEMi- inc troponin secondary to strain from resp failure, septic shock Code(s): R74.8 - ABNORMAL LEVELS OF OTHER SERUM ENZYMES
[2019-02-12] MEDS: MIDODRINE HCL 5 MG TABLET PO SCH ×3 (09:52→17:36)
[2019-02-12] MEDS: VITAMIN B COMP W-C 1 EA TABLET PO SCH (09:52)
[2019-02-12] MEDS: PANTOPRAZOLE SODIUM 40 MG VIAL IVPUSH SCH (09:52)
[2019-02-12] MEDS: SERTRALINE HCL 50 MG TABLET (FP) PO SCH (09:53)
[2019-02-12] MEDS: SILVER SULFADIAZINE 1% TOP CREAM 400 GM JAR TP SCH ×2 (09:53→21:07)
[2019-02-12] MEDS: NYSTATIN 100000 UNIT/GM TOPICAL OINTMENT 15 GM TUBE TP SCH ×2 (10:13→21:06)
--- NOTE | 2019-02-12 10:41 | PN ---
Teaching Attending Note Name of Resident: Darrion Liz ATTENDING PHYSICIAN STATEMENT I saw and evaluated the patient. I reviewed the resident's note and discussed the case with the resident. I agree with the resident's findings and plan as documented. SUBJECTIVE: Pt seen and examined in the ICU. Remains on levophed gtt. femoral site with some erythema. Mentating well. OBJECTIVE: Vital Signs Period Temp Pulse Resp BP Sys/Jhaveri Pulse Ox Last 24 Hr 97.0 F-98.1 F 78-104 12-23 62-118/25-65 99 Intake & Output 02/09/19 02/10/19 02/11/19 02/12/19 23:59 23:59 23:59 23:59 Intake Total 187 617 6593.5 Output Total 3500 3300 Balance -2800 545 -2257.5 Weight 83.5 kg 81.5 kg 84.232 kg Gen: NAD at rest Heart: RRR Lung: decreased breath sounds at the bases Abd: soft, nontender Ext: + edema CBC, BMP 02/12/19 05:15 02/12/19 05:15 Active Medications Acetaminophen (Tylenol -) 650 mg PO Q4H PRN PRN Reason: PAIN LEVEL 1 - 3 Last Admin: 02/08/19 23:32 Dose: 650 mg Amino Acids (Prosource No Carb Liquid Pkt) 30 ml PO BID@0800,1730 [facility] Last Admin: 02/12/19 08:41 Dose: 30 ml Norepinephrine Bitartrate 8, (000 mcg/ Dextrose) 500 mls @ 18.75 mls/hr IV TITR [facility]; Protocol Last Titration: 02/12/19 10:07 Dose: 2 mcg/min, 7.5 mls/hr Sodium Chloride (Normal Saline -) 250 mls @ 3,000 mls/hr IV PRN PRN PRN Reason: Hypotension during Dialysis Sodium Chloride (Normal Saline -) 250 mls @ 3,000 mls/hr IV PRN PRN PRN Reason: Hypotension during Dialysis Insulin Aspart (Novolog Vial Sliding Scale -) 1 vial SQ ACHS [facility]; Protocol Last Admin: 02/12/19 07:22 Dose: Not Given Levothyroxine Sodium (Synthroid -) 50 mcg PO DAILY@0700 [facility] Last Admin: 02/12/19 08:41 Dose: 50 mcg Lidocaine/Prilocaine (Emla -) 1 applic TP QID PRN PRN Reason: HEMORRHOIDS Melatonin (Melatonin) 5 mg PO HS [facility] Last Admin: 02/11/19 22:57 Dose: 5 mg Midodrine (Proamatine -) 10 mg PO TID-MID [facility] Last Admin: 02/12/19 09:52 Dose: 10 mg Multivit/Ca Carb/B Cmplx/FA/Prenat (Nephro-Evert -) 1 tablet PO DAILY [facility] Last Admin: 02/12/19 09:52 Dose: 1 tablet Nystatin (Mycostatin Ointment -) 1 applic TP BID [facility] Last Admin: 02/12/19 10:13 Dose: 1 applic Ondansetron HCl (Zofran -) 4 mg PO Q6H PRN PRN Reason: NAUSEA AND/OR VOMITING Last Admin: 02/11/19 21:05 Dose: 4 mg Pantoprazole Sodium (Protonix Iv) 40 mg IVPUSH DAILY [facility] Last Admin: 02/12/19 09:52 Dose: 40 mg Rivaroxaban (Xarelto) 15 mg PO DAILY@1800 [facility] Last Admin: 02/11/19 17:39 Dose: 15 mg Sertraline HCl (Zoloft -) 50 mg PO DAILY [facility] Last Admin: 02/12/19 09:53 Dose: 50 mg Silver Sulfadiazine (Silvadene -) 1 applic TP BID [facility] Last Admin: 02/12/19 09:53 Dose: 1 applic ASSESSMENT AND PLAN: Acute on Chronic Hypoxic and Hypercapneic Respiratory Failure improving r/o Pneumonia Shock likely Septic r/o Autonomic Dysfunction Volume Overload ESRD on HD +Troponins likely Demand Ischemia Pulmonary HTN h/o PE/DVT - completed antibiotics - taper off pressors, tolerate MAP >50 - continue midodrine - start trial of fludro - HD per renal with ultrafiltration - taper FiO2 to keep SpO2 >90% - continue anticoagulation - DVT/GI prophylaxis - continue ICU monitoring while on pressors critical care time spent in reviewing chart, evaluating patient and formulating plan 35 min
--- NOTE | 2019-02-12 11:19 | PN ---
Progress Note (short form) - Note Progress Note: s: still on pressors. denies cp sob palps dizzy Current Medications Generic Name Dose Route Start Last Admin Trade Name Roberto PRN Reason Stop Dose Admin Acetaminophen 650 mg 02/05/19 23:36 02/08/19 23:32 Tylenol - PO 650 mg Q4H PRN Administration PAIN LEVEL 1 - 3 Amino Acids 30 ml 01/31/19 17:30 02/12/19 08:41 Prosource No Carb Liquid Pkt PO 30 ml BID@0800,1730 [facility] Administration Fludrocortisone Acetate 0.2 mg 02/12/19 11:15 Florinef - PO DAILY [facility] Norepinephrine Bitartrate 8, 500 mls @ 18.75 mls/hr 02/08/19 10:50 02/12/19 10:07 000 mcg/ Dextrose IV 2 mcg/min TITR [facility] 7.5 mls/hr Titration Protocol 5 MCG/MIN Sodium Chloride 250 mls @ 3,000 mls/hr 02/09/19 07:15 Normal Saline - IV PRN PRN Hypotension during Dialysis Sodium Chloride 250 mls @ 3,000 mls/hr 02/11/19 09:44 Normal Saline - IV PRN PRN Hypotension during Dialysis Insulin Aspart 1 vial 02/05/19 07:00 02/12/19 07:22 Novolog Vial Sliding Scale - SQ Not Given ACHS [facility] Protocol Levothyroxine Sodium 50 mcg 01/27/19 07:00 02/12/19 08:41 Synthroid - PO 50 mcg DAILY@0700 [facility] Administration Lidocaine/Prilocaine 1 applic 01/27/19 01:55 Emla - TP QID PRN HEMORRHOIDS Melatonin 5 mg 02/10/19 20:59 02/11/19 22:57 Melatonin PO 5 mg HS [facility] Administration Midodrine 10 mg 01/27/19 14:30 02/12/19 09:52 Proamatine - PO 10 mg TID-MID [facility] Administration Multivit/Ca Carb/B Cmplx/FA/Prenat 1 tablet 01/27/19 10:00 02/12/19 09:52 Nephro-Evert - PO 1 tablet DAILY [facility] Administration Nystatin 1 applic 01/27/19 22:00 02/12/19 10:13 Mycostatin Ointment - TP 1 applic BID [facility] Administration Ondansetron HCl 4 mg 01/27/19 01:57 02/11/19 21:05 Zofran - PO 4 mg Q6H PRN Administration NAUSEA AND/OR VOMITING Pantoprazole Sodium 40 mg 02/13/19 10:00 Protonix - PO DAILY [facility] Rivaroxaban 15 mg 01/27/19 18:00 02/11/19 17:39 Xarelto PO 15 mg DAILY@1800 [facility] Administration Sertraline HCl 50 mg 01/27/19 10:00 02/12/19 09:53 Zoloft - PO 50 mg DAILY [facility] Administration Silver Sulfadiazine 1 applic 01/27/19 10:00 02/12/19 09:53 Silvadene - TP 1 applic BID [facility] Administration Vital Signs Temp 97.8 F 02/11/19 20:00 Pulse 94 H 02/12/19 10:07 Resp 22 H 02/12/19 06:00 BP 108/63 02/12/19 10:07 Pulse Ox 99 02/11/19 21:00 Intake & Output 02/11/19 02/11/19 02/12/19 11:59 23:59 11:59 Intake Total 370 672.5 Output Total 3300 Balance 370 -2627.5 Weight 185 lb 11.2 oz Intake: IV 190 432.5 Levophed - 8,000 Mcg In 90 232.5 D5w - 492 ml @ 5 MCG/MIN 18.75 mls/hr IV TITR [facility] Rx#:[id number] Normal Saline - 250 ml @ 253 464 3315 mls/hr IV PRN PRN Rx #:[id number] Oral 180 240 Output: Fluid Removed, 3300 Hemodialysis Other: Voiding Method Diaper Diaper Diaper Bowel Movement Yes Yes # Bowel Movements 1 1 Weight Measurement Method Built in [facility] Constitutional: Yes: No Distress, Calm, Obese Cardiovascular: Yes: Pulse Irregular, S1, S2. No: JVD (prohibitive tds phys exam), Gallop, Murmur Respiratory: Yes: Regular, CTA Bilaterally nl eff. No: Accessory Muscle Use Extremities: No: Cold Edema: No Neurological: awake, alert appropriate Psychiatric: No: Agitated no jaundice, diaphoresis Laboratory Last Values WBC 4.6 K/mm3 (4.0-10.0) 02/12/19 05:15 RBC 2.94 M/mm3 (3.60-5.2) L 02/12/19 05:15 Hgb 9.0 GM/dL (10.7-15.3) L 02/12/19 05:15 Hct 28.6 % (32.4-45.2) L 02/12/19 05:15 MCV 97.3 fl (80-96) H 02/12/19 05:15 MCH 30.6 pg (25.7-33.7) 02/12/19 05:15 MCHC 31.5 g/dl (32.0-36.0) L 02/12/19 05:15 RDW 20.2 % (11.6-15.6) H 02/12/19 05:15 Plt Count 152 K/MM3 (134-434) D 02/12/19 05:15 MPV 7.9 fl (7.5-11.1) 02/12/19 05:15 Absolute Neuts (auto) 2.7 K/mm3 (1.5-8.0) 02/12/19 05:15 Neutrophils % 58.9 % (42.8-82.8) 02/12/19 05:15 Lymphocytes % 28.9 % (8-40) 02/12/19 05:15 Monocytes % 8.7 % (3.8-10.2) 02/12/19 05:15 Eosinophils % 2.1 % (0-4.5) 02/12/19 05:15 Basophils % 1.4 % (0-2.0) 02/12/19 05:15 Nucleated RBC % 0 % (0-0) 02/12/19 05:15 PT with INR 20.90 SEC (9.7-13.0) H 01/27/19 05:45 INR 1.76 (0.83-1.09) H 01/27/19 05:45 PTT (Actin FS) 33.3 SECONDS (25.2-36.5) 01/27/19 05:45 Anticoagulation Therapy No Result Required. 01/27/19 06:40 Puncture Site Left radial 01/27/19 06:40 ABG pH 7.34 (7.35-7.45) L 01/27/19 06:40 ABG pCO2 at Pt Temp 38.7 mmHg (35-45) 01/27/19 06:40 ABG pO2 at Pt Temp 205 mmHg (80-105) H 01/27/19 06:40 ABG HCO3 20.1 mmol/L (22-27) L 01/27/19 06:40 ABG O2 Sat (Measured) 99.9 % (95-98) H 01/27/19 06:40 ABG O2 Content 15.0 % vol (15-22) 01/27/19 06:40 ABG Base Excess -4.7 meq/l (-2-2) L 01/27/19 06:40 Pedro Test Positive 01/27/19 06:40 Carboxyhemoglobin 1.5 % (0-2) 01/26/19 23:30 Methemoglobin 0.2 % (0-2) 01/26/19 23:30 O2 Delivery Device Vent 01/27/19 06:40 Oxygen Flow Rate 60% 01/27/19 06:40 Vent Mode A/c 01/27/19 06:40 Vent Rate 16 01/27/19 06:40 Mechanical Rate Yes 01/27/19 06:40 PEEP 5.0 cmH2O 01/27/19 06:40 Pressure Support Vent 450 01/27/19 06:40 Sodium 134 mmol/L (136-145) L 02/12/19 05:15 Potassium 4.4 mmol/L (3.5-5.1) 02/12/19 05:15 Chloride 97 mmol/L (98-107) L 02/12/19 05:15 Carbon Dioxide 31 mmol/L (21-32) 02/12/19 05:15 Anion Gap 7 MMOL/L (8-16) L 02/12/19 05:15 BUN 24.4 mg/dL (7-18) H 02/12/19 05:15 Creatinine 2.6 mg/dL (0.55-1.3) H 02/12/19 05:15 Est GFR (CKD-EPI)AfAm 20.68 02/12/19 05:15 Est GFR (CKD-EPI)NonAf 17.84 02/12/19 05:15 POC Glucometer 88 UNITS (80-120) 02/12/19 07:03 Random Glucose 92 mg/dL (74-106) 02/12/19 05:15 Lactic Acid 2.1 mmol/L (0.4-2.0) H 01/27/19 02:00 Calcium 8.2 mg/dL (8.5-10.1) L 02/12/19 05:15 Phosphorus 3.9 mg/dL (2.5-4.9) 02/12/19 05:15 Magnesium 2.1 mg/dL (1.8-2.4) 02/12/19 05:15 Total Bilirubin 0.4 mg/dL (0.2-1) 02/12/19 05:15 AST 17 U/L (15-37) 02/12/19 05:15 ALT 15 U/L (13-61) 02/12/19 05:15 Alkaline Phosphatase 146 U/L (45-117) H 02/12/19 05:15 Creatine Kinase 76 U/L (26-192) 01/27/19 02:00 Troponin I 2.10 ng/ml (0.00-0.05) H* 01/29/19 05:30 Total Protein 6.4 g/dl (6.4-8.2) 02/12/19 05:15 Albumin 2.6 g/dl (3.4-5.0) L 02/12/19 05:15 TSH 4.97 uIU/ml (0.358-3.74) H 02/10/19 05:15 Stool Occult Blood Negative (NEGATIVE) 02/03/19 00:30 Random Vancomycin 20.4 ug/ml (18-26) 02/02/19 06:00 Digoxin 0.10 ng/ml (0.8-2.0) L 01/26/19 23:00 Assessment/Plan Echo 12/01: nl LV function, RV mod to severely dilated, RV function mod to severely reduced, mod dilated LA/RA, RVSP 40-50 mmHg, mod TR Echo 01/2019 - LV function slightly worsened, 45-50%, LA mod dilated, RV mod to severely dilated, tr AR, RV function mod to severely reduced, mild MR, mild to mod TR, RA mod to severely dilated, mobile echodensity in pleural space tele: sr cxr: congestion est cct 35 mins IMP: -Acute on chronic hypoxic/hypercapneic respiratory failure at HD, with bradycardia (40s-50s) -possible RLL PNA, sepsis -NSTEMI (troponin to 2): most likely Type II secondary to acute strain from CHF/ pulm HTN and acute resp failure, vs sec to hypotension at time of arrest. -septic shock on Levophed, doubt cardiogenic shock here -HFpEF, pulmonary HTN, RV dysfunction -ESRD on HD -h/o DVT /PE on AC REC: -now extubated -bp remains low and levophed has been increased, continue to attempt to wean off levophed as bp allows -repeat echo with LV function slightly worsened compared to prior, RV function is mod to severely reduced (stable) -repeat echo also shows echodensity in pleural space - consider chest imaging per critical care -cxr with chf-->HD as per renal for volume management -Cont xarelto (anemia, PLTs stable) -hold AVN blockers --> HRs ok -cont midodrine for bp support at HD -will defer ischemia evaluation as this will not tire changer. She is at prohibitive risk for invasive tx strategy given extremely poor functional status with severe comorbidities at present. Will not tolerate signif b-blockade , though will try to give low dose if can tolerate, once she is off pressors. -no ASA for now given pt on Xarelto with mild anemia/thrombocytopenia (and likely dysfunctional PLTs in HD pt), and hi risk for bleeding at present -if she recovers from the acute illness will potentially reconsider above approach
[2019-02-12] MEDS: NOREPINEPHRINE BITARTRATE 8,000 MCG in DEXTROSE 5%-WATER - 492 ML IV SCH (12:36)
[2019-02-12] MEDS: FLUDROCORTISONE ACETATE 0.1 MG TABLET (FP) PO SCH (12:38)
--- NOTE | 2019-02-12 15:11 | PN ---
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 ESRD 2. change in mental status 3. resp failure requiring intubation 4. chf 5. dvt 6. anemia 7. a-fib 8. hypothyroid 9. pleural effusion Current Medications Acetaminophen (Tylenol -) 650 mg PO Q4H PRN PRN Reason: PAIN LEVEL 1 - 3 Last Admin: 02/08/19 23:32 Dose: 650 mg Amino Acids (Prosource No Carb Liquid Pkt) 30 ml PO BID@0800,1730 [facility] Last Admin: 02/12/19 08:41 Dose: 30 ml Fludrocortisone Acetate (Florinef -) 0.2 mg PO DAILY [facility] Last Admin: 02/12/19 12:38 Dose: 0.2 mg Norepinephrine Bitartrate 8, (000 mcg/ Dextrose) 500 mls @ 18.75 mls/hr IV TITR [facility]; Protocol Last Titration: 02/12/19 13:45 Dose: 1 mcg/min, 3.75 mls/hr Sodium Chloride (Normal Saline -) 250 mls @ 3,000 mls/hr IV PRN PRN PRN Reason: Hypotension during Dialysis Sodium Chloride (Normal Saline -) 250 mls @ 3,000 mls/hr IV PRN PRN PRN Reason: Hypotension during Dialysis Insulin Aspart (Novolog Vial Sliding Scale -) 1 vial SQ ACHS [facility]; Protocol Last Admin: 02/12/19 12:38 Dose: Not Given Levothyroxine Sodium (Synthroid -) 50 mcg PO DAILY@0700 [facility] Last Admin: 02/12/19 08:41 Dose: 50 mcg Lidocaine/Prilocaine (Emla -) 1 applic TP QID PRN PRN Reason: HEMORRHOIDS Melatonin (Melatonin) 5 mg PO HS [facility] Last Admin: 02/11/19 22:57 Dose: 5 mg Midodrine (Proamatine -) 10 mg PO TID-MID [facility] Last Admin: 02/12/19 13:51 Dose: 10 mg Multivit/Ca Carb/B Cmplx/FA/Prenat (Nephro-Evert -) 1 tablet PO DAILY [facility] Last Admin: 02/12/19 09:52 Dose: 1 tablet Nystatin (Mycostatin Ointment -) 1 applic TP BID [facility] Last Admin: 02/12/19 10:13 Dose: 1 applic Ondansetron HCl (Zofran -) 4 mg PO Q6H PRN PRN Reason: NAUSEA AND/OR VOMITING Last Admin: 02/11/19 21:05 Dose: 4 mg Pantoprazole Sodium (Protonix -) 40 mg PO DAILY [facility] Rivaroxaban (Xarelto) 15 mg PO DAILY@1800 [facility] Last Admin: 02/11/19 17:39 Dose: 15 mg Sertraline HCl (Zoloft -) 50 mg PO DAILY [facility] Last Admin: 02/12/19 09:53 Dose: 50 mg Silver Sulfadiazine (Silvadene -) 1 applic TP BID [facility] Last Admin: 02/12/19 09:53 Dose: 1 applic Last Vital Signs Temp Pulse Resp BP Pulse Ox 97.4 F L 67 16 92/61 99 02/12/19 12:00 02/12/19 13:45 02/12/19 12:00 02/12/19 13:45 02/12/19 09:00 somnolent, lying flat, no sob Lungs clear heart reg Abd soft ext no edema CBC, BMP 02/12/19 05:15 02/12/19 05:15 IMP- ESRD Hypotension on fluorinef and midodrine Plan - HD Thursday - renal diet - continue fluid restriction - monitoring bp's - HD right thigh cath, 3 k bath, 3 15 time, 400 abf
[2019-02-12] MEDS: RIVAROXABAN 15 MG TABLET PO SCH (17:36)
[2019-02-12] MEDS: ACETAMINOPHEN 325 MG TABLET (FP) PO PRN (18:46)
[2019-02-12] MEDS: MELATONIN 5 MG TABLETS PO SCH (21:06)
[2019-02-13] MEDS: INSULIN SLIDING SCALE (NOVOLOG) 1 VIAL SQ SCH ×5 (00:50→23:06)
[2019-02-13] MEDS: LEVOTHYROXINE NA 50 MCG TABLET (FP) PO SCH (06:28)
[2019-02-13 06:50] LABS: EOS % 3.5 % (0-4.5); HEMATOCRIT 28.2 % (32.4-45.2); HEMOGLOBIN 8.9 GM/dL (10.7-15.3); MCH 30.7 pg (25.7-33.7); MCHC 31.6 g/dl (32.0-36.0); MEAN CELL VOLUME 97.3 fl (80-96); MEAN PLT VOLUME 8.2 fl (7.5-11.1); MONO % 9.6 % (3.8-10.2); NEUT % 55.9 % (42.8-82.8); PLATELET COUNT 126 K/MM3 (134-434); RDW 20.4 % (11.6-15.6); WHITE BLOOD COUNT 3.6 K/mm3 (4.0-10.0)
[2019-02-13 06:53] LABS: ALBUMIN 2.6 g/dl (3.4-5.0); BILIRUBIN,TOTAL 0.3 mg/dL (0.2-1); CALCIUM 8.5 mg/dL (8.5-10.1); CREATININE 3.4 mg/dL (0.55-1.3); MAGNESIUM 2.2 mg/dL (1.8-2.4); PHOSPHOROUS 5.3 mg/dL (2.5-4.9); POTASSIUM 4.7 mmol/L (3.5-5.1); TOT PROT 6.5 g/dl (6.4-8.2)
--- NOTE | 2019-02-13 07:12 | PN ---
Physical Exam: SUBJECTIVE: Patient seen and examined at bedside this AM. I removed the left femoral line today. OBJECTIVE: Vital Signs Period Temp Pulse Resp BP Sys/Jhaveri Pulse Ox Last 24 Hr 97.2 F-97.9 F 65-104 12-24 77-108/46-64 99-99 GENERAL: The patient is awake, alert, and fully oriented, in no acute distress. HEAD: Normal with no signs of trauma. NECK: supple. LUNGS: Breath sounds equal, slightly decreased breath sounds, no crackles or wheezing. HEART: irregular irregular, without murmur, rub or gallop. ABDOMEN: Soft, nontender, nondistended, no guarding, no rebound. EXTREMITIES: 2+ pulses, warm, well-perfused, no edema. NEUROLOGICAL: Cranial nerves II through XII grossly intact. Normal speech, gait not observed. PSYCH: Normal mood, normal affect. SKIN: Warm, dry, no rashes or lesions noted Laboratory Results - last 24 hr 02/12/19 02/12/19 02/13/19 11:56 17:34 00:38 WBC RBC Hgb Hct MCV MCH MCHC RDW Plt Count MPV Absolute Neuts (auto) Neutrophils % Lymphocytes % Monocytes % Eosinophils % Basophils % Nucleated RBC % Sodium Potassium Chloride Carbon Dioxide Anion Gap BUN Creatinine Est GFR (CKD-EPI)AfAm Est GFR (CKD-EPI)NonAf POC Glucometer 121 102 158 Random Glucose Calcium Phosphorus Magnesium Total Bilirubin AST ALT Alkaline Phosphatase Total Protein Albumin 02/13/19 02/13/19 05:15 05:15 WBC 3.6 L RBC 2.90 L Hgb 8.9 L Hct 28.2 L MCV 97.3 H MCH 30.7 MCHC 31.6 L RDW 20.4 H Plt Count 126 L MPV 8.2 Absolute Neuts (auto) 2.0 Neutrophils % 55.9 Lymphocytes % 30.0 Monocytes % 9.6 Eosinophils % 3.5 Basophils % 1.0 Nucleated RBC % 0 Sodium 134 L Potassium 4.7 Chloride 97 L Carbon Dioxide 33 H Anion Gap 4 L BUN 32.0 H Creatinine 3.4 H Est GFR (CKD-EPI)AfAm 14.95 Est GFR (CKD-EPI)NonAf 12.90 POC Glucometer Random Glucose 91 Calcium 8.5 Phosphorus 5.3 H Magnesium 2.2 Total Bilirubin 0.3 AST 18 ALT 15 Alkaline Phosphatase 144 H Total Protein 6.5 Albumin 2.6 L Active Medications Generic Name Dose Route Start Last Admin Trade Name Roberto PRN Reason Stop Dose Admin Acetaminophen 650 mg 02/05/19 23:36 02/12/19 18:46 Tylenol - PO 650 mg Q4H PRN Administration PAIN LEVEL 1 - 3 Amino Acids 30 ml 01/31/19 17:30 02/12/19 17:36 Prosource No Carb Liquid Pkt PO 30 ml BID@0800,1730 [facility] Administration Fludrocortisone Acetate 0.2 mg 02/12/19 11:15 02/12/19 12:38 Florinef - PO 0.2 mg DAILY [facility] Administration Norepinephrine Bitartrate 8, 500 mls @ 18.75 mls/hr 02/08/19 10:50 02/12/19 16:00 000 mcg/ Dextrose IV 0 mcg/min TITR [facility] 0 mls/hr Titration Protocol 5 MCG/MIN Sodium Chloride 250 mls @ 3,000 mls/hr 02/09/19 07:15 Normal Saline - IV PRN PRN Hypotension during Dialysis Sodium Chloride 250 mls @ 3,000 mls/hr 02/11/19 09:44 Normal Saline - IV PRN PRN Hypotension during Dialysis Insulin Aspart 1 vial 02/05/19 07:00 02/13/19 00:50 Novolog Vial Sliding Scale - SQ Not Given ACHS [facility] Protocol Levothyroxine Sodium 50 mcg 01/27/19 07:00 02/13/19 06:28 Synthroid - PO 50 mcg DAILY@0700 [facility] Administration Lidocaine/Prilocaine 1 applic 01/27/19 01:55 Emla - TP QID PRN HEMORRHOIDS Melatonin 5 mg 02/10/19 20:59 02/12/19 21:06 Melatonin PO 5 mg HS [facility] Administration Midodrine 10 mg 01/27/19 14:30 02/12/19 17:36 Proamatine - PO 10 mg TID-MID [facility] Administration Multivit/Ca Carb/B Cmplx/FA/Prenat 1 tablet 01/27/19 10:00 02/12/19 09:52 Nephro-Evert - PO 1 tablet DAILY [facility] Administration Nystatin 1 applic 01/27/19 22:00 02/12/19 21:06 Mycostatin Ointment - TP 1 applic BID [facility] Administration Ondansetron HCl 4 mg 01/27/19 01:57 08/30/19 21:05 Zofran - PO 4 mg Q6H PRN Administration NAUSEA AND/OR VOMITING Pantoprazole Sodium 40 mg 02/13/19 10:00 Protonix - PO DAILY [facility] Rivaroxaban 15 mg 01/27/19 18:00 02/12/19 17:36 Xarelto PO 15 mg DAILY@1800 [facility] Administration Sertraline HCl 50 mg 01/27/19 10:00 02/12/19 09:53 Zoloft - PO 50 mg DAILY [facility] Administration Silver Sulfadiazine 1 applic 01/27/19 10:00 02/12/19 21:07 Silvadene - TP 1 applic BID [facility] Administration ASSESSMENT/PLAN: This is a 73 y/o F with a PMH of ESRD, Orthostatic Hypotension, CHF, DM, hypothyroid, COPD, Afib (on Xarelto), DVTs, Pulmonary Edema and multiple prior admissions for pneumonia admitted to the ICU for unresponsiveness secondary to acute hypercapneic respiratory failure and hypotension likely 2/2 dialysis. #CARDIOLOGY- Orthostatic hypotension likely 2/2 hemodialysis - weaned off levo - titrate to MAP >50%. - c/w midodrine 10 tid, Fludrocortisone 0.2 Daily - can be monitored on floors -HD tm for volume management -C/w xarelto for A fib, no ASA due to anemia/thrombocytopenia -continue to hold AV node blockers, pt has been AF but rate has been controlled. may consider BB if rate permits. #RESPIRATORY-> Acute on chronic hypercapneic respiratory failure 2/2 Sepsis - on NC, satting in mid 90's. - albuterol nebulizer q6h prn RENAL-> ESRD - Nephrology on board - HD tm - monitor lytes - renal diet - monitor bp #INFECTIOUS DISEASE-> Septic shock - hypotensive, no leukocytosis, afebrile - pt chronically hypotensive - hx of cdiff, cautious approach to continuing antibiotics - blood cxs negative -ID recs appreciated #ENDOCRINE-> Hypothyroidism - continue home Synthroid - BGM q6h - ISS #HEMATOLOGY-> Anemia/thrombocytopenia 2/2 Sepsis/ESRD - FOBT negative - Hgb stable 8.4, continuing to monitor if Hb < 7 will transfuse - thrombocytopenia improved (126), continue to monitor #Vascular RUE edema - duplex US negative for thrombosis #FEN - continue to monitor electrolytes and replete as necessary, less aggressive hypokalemia and hypophospatemia replacement in setting of ESRD - dysphagia ground and nectar thick fluids. #DVT ppx - c/w Xarelto -IV Protonix switched to PO #CODE - full code #DISPO - ICU. Visit type - Emergency Visit Emergency Visit: Yes ED Registration Date: 01/26/19 Care time: The patient presented to the Emergency Department on the above date and was hospitalized for further evaluation of their emergent condition. - New Patient This patient is new to me today: No - Critical Care Critical Care patient: Yes Total Critical Care Time (in minutes): 35 Critical Care Statement: The care of this patient involved high complexity decision making to prevent further life threatening deterioration of the patient 's condition and/or to evaluate & treat vital organ system(s) failure or risk of failure. - Discharge Referral Referred to [facility] No
[2019-02-13] MEDS: AMINO ACIDS/PROTEIN HYDROLYS 30 ML LIQUID.PKT PO SCH ×2 (08:40→17:47)
--- NOTE | 2019-02-13 09:06 | PN ---
Progress Note, Physician - Current Medication List Current Medications: Active Medications Acetaminophen (Tylenol -) 650 mg PO Q4H PRN PRN Reason: PAIN LEVEL 1 - 3 Last Admin: 02/12/19 18:46 Dose: 650 mg Amino Acids (Prosource No Carb Liquid Pkt) 30 ml PO BID@0800,1730 [facility] Last Admin: 02/12/19 17:36 Dose: 30 ml Fludrocortisone Acetate (Florinef -) 0.2 mg PO DAILY [facility] Last Admin: 02/12/19 12:38 Dose: 0.2 mg Norepinephrine Bitartrate 8, (000 mcg/ Dextrose) 500 mls @ 18.75 mls/hr IV TITR [facility]; Protocol Last Titration: 02/12/19 16:00 Dose: 0 mcg/min, 0 mls/hr Sodium Chloride (Normal Saline -) 250 mls @ 3,000 mls/hr IV PRN PRN PRN Reason: Hypotension during Dialysis Sodium Chloride (Normal Saline -) 250 mls @ 3,000 mls/hr IV PRN PRN PRN Reason: Hypotension during Dialysis Insulin Aspart (Novolog Vial Sliding Scale -) 1 vial SQ ACHS [facility]; Protocol Last Admin: 02/13/19 07:15 Dose: Not Given Levothyroxine Sodium (Synthroid -) 50 mcg PO DAILY@0700 [facility] Last Admin: 02/13/19 06:28 Dose: 50 mcg Lidocaine/Prilocaine (Emla -) 1 applic TP QID PRN PRN Reason: HEMORRHOIDS Melatonin (Melatonin) 5 mg PO HS [facility] Last Admin: 02/12/19 21:06 Dose: 5 mg Midodrine (Proamatine -) 10 mg PO TID-MID [facility] Last Admin: 02/12/19 17:36 Dose: 10 mg Multivit/Ca Carb/B Cmplx/FA/Prenat (Nephro-Evert -) 1 tablet PO DAILY [facility] Last Admin: 02/12/19 09:52 Dose: 1 tablet Nystatin (Mycostatin Ointment -) 1 applic TP BID [facility] Last Admin: 02/12/19 21:06 Dose: 1 applic Ondansetron HCl (Zofran -) 4 mg PO Q6H PRN PRN Reason: NAUSEA AND/OR VOMITING Last Admin: 02/11/19 21:05 Dose: 4 mg Pantoprazole Sodium (Protonix -) 40 mg PO DAILY [facility] Rivaroxaban (Xarelto) 15 mg PO DAILY@1800 [facility] Last Admin: 02/12/19 17:36 Dose: 15 mg Sertraline HCl (Zoloft -) 50 mg PO DAILY [facility] Last Admin: 02/12/19 09:53 Dose: 50 mg Silver Sulfadiazine (Silvadene -) 1 applic TP BID [facility] Last Admin: 02/12/19 21:07 Dose: 1 applic - Objective Vital Signs: Vital Signs Temperature 97.9 F 02/13/19 06:00 Pulse Rate 72 02/13/19 06:00 Respiratory Rate 18 02/13/19 06:00 Blood Pressure 86/60 L 02/13/19 06:00 O2 Sat by Pulse Oximetry (%) 99 02/12/19 21:00 Cardiovascular: Yes: S1, S2 Respiratory: Yes: Regular, CTA Bilaterally Gastrointestinal: Yes: Normal Bowel Sounds, Soft Labs: CBC, BMP 02/13/19 05:15 02/13/19 05:15 INR, PTT INR 1.76 (0.83-1.09) H 01/27/19 05:45 Assessment/Plan - Problems (1) Hand swelling Assessment/Plan: got one dose of iv vancomycin yesterday Code(s): M79.89 - OTHER SPECIFIED SOFT TISSUE DISORDERS (2) Hypotension Assessment/Plan: off levophed- iv abx vancomcyin given one dose yesterday for possible hand cellulitis midodrine standing order wbc trending down keep MAP> 55 Code(s): I95.9 - HYPOTENSION, UNSPECIFIED Qualifiers: Hypotension type: unspecified hypotension type Qualified Code(s): I95.9 - Hypotension, unspecified (3) Acute respiratory failure Assessment/Plan: improved completed abx for possible pna Code(s): J96.00 - ACUTE RESPIRATORY FAILURE, UNSP W HYPOXIA OR HYPERCAPNIA Qualifiers: Respiratory failure complication: hypoxia Qualified Code(s): J96.01 - Acute respiratory failure with hypoxia (4) Hypothyroid Assessment/Plan: on synthroid Code(s): E03.9 - HYPOTHYROIDISM, UNSPECIFIED (5) ESRD on hemodialysis Assessment/Plan: HD per renal epogen with HD Code(s): N18.6 - END STAGE RENAL DISEASE; Z99.2 - DEPENDENCE ON RENAL DIALYSIS (6) H/O deep venous thrombosis Assessment/Plan: on xarelto Code(s): Z86.718 - PERSONAL HISTORY OF OTHER VENOUS THROMBOSIS AND EMBOLISM (7) Elevated troponin Assessment/Plan: NSTEMi- inc troponin secondary to strain from resp failure, septic shock Code(s): R74.8 - ABNORMAL LEVELS OF OTHER SERUM ENZYMES
--- NOTE | 2019-02-13 10:16 | PN ---
Teaching Attending Note Name of Resident: Hiren Liz ATTENDING PHYSICIAN STATEMENT I saw and evaluated the patient. I reviewed the resident's note and discussed the case with the resident. I agree with the resident's findings and plan as documented. SUBJECTIVE: Pt seen and examined in the ICU. Off pressors, blood pressures borderline, mental status at baseline. OBJECTIVE: Vital Signs Period Temp Pulse Resp BP Sys/Jhaveri Pulse Ox Last 24 Hr 97.4 F-97.9 F 65-92 12-24 77-105/44-61 99-99 Intake & Output 02/10/19 02/11/19 02/12/19 02/13/19 23:59 23:59 23:59 23:59 Intake Total 545 1042.5 600 200 Output Total 3300 3300 Balance 545 -2257.5 -2700 200 Weight 81.5 kg 84.232 kg 84.232 kg Gen: NAD at rest Heart: RRR Lung: decreased breath sounds at the bases Abd: soft, nontender Ext: + edema CBC, BMP 02/13/19 05:15 02/13/19 05:15 Active Medications Acetaminophen (Tylenol -) 650 mg PO Q4H PRN PRN Reason: PAIN LEVEL 1 - 3 Last Admin: 02/12/19 18:46 Dose: 650 mg Amino Acids (Prosource No Carb Liquid Pkt) 30 ml PO BID@0800,1730 [facility] Last Admin: 02/12/19 17:36 Dose: 30 ml Fludrocortisone Acetate (Florinef -) 0.2 mg PO DAILY [facility] Last Admin: 02/12/19 12:38 Dose: 0.2 mg Norepinephrine Bitartrate 8, (000 mcg/ Dextrose) 500 mls @ 18.75 mls/hr IV TITR [facility]; Protocol Last Titration: 02/12/19 16:00 Dose: 0 mcg/min, 0 mls/hr Sodium Chloride (Normal Saline -) 250 mls @ 3,000 mls/hr IV PRN PRN PRN Reason: Hypotension during Dialysis Sodium Chloride (Normal Saline -) 250 mls @ 3,000 mls/hr IV PRN PRN PRN Reason: Hypotension during Dialysis Insulin Aspart (Novolog Vial Sliding Scale -) 1 vial SQ ACHS [facility]; Protocol Last Admin: 02/13/19 07:15 Dose: Not Given Levothyroxine Sodium (Synthroid -) 50 mcg PO DAILY@0700 [facility] Last Admin: 02/13/19 06:28 Dose: 50 mcg Lidocaine/Prilocaine (Emla -) 1 applic TP QID PRN PRN Reason: HEMORRHOIDS Melatonin (Melatonin) 5 mg PO HS [facility] Last Admin: 02/12/19 21:06 Dose: 5 mg Midodrine (Proamatine -) 10 mg PO TID-MID [facility] Last Admin: 02/12/19 17:36 Dose: 10 mg Multivit/Ca Carb/B Cmplx/FA/Prenat (Nephro-Evert -) 1 tablet PO DAILY [facility] Last Admin: 02/12/19 09:52 Dose: 1 tablet Nystatin (Mycostatin Ointment -) 1 applic TP BID [facility] Last Admin: 02/12/19 21:06 Dose: 1 applic Ondansetron HCl (Zofran -) 4 mg PO Q6H PRN PRN Reason: NAUSEA AND/OR VOMITING Last Admin: 02/11/19 21:05 Dose: 4 mg Pantoprazole Sodium (Protonix -) 40 mg PO DAILY [facility] Rivaroxaban (Xarelto) 15 mg PO DAILY@1800 [facility] Last Admin: 02/12/19 17:36 Dose: 15 mg Sertraline HCl (Zoloft -) 50 mg PO DAILY [facility] Last Admin: 02/12/19 09:53 Dose: 50 mg Silver Sulfadiazine (Silvadene -) 1 applic TP BID [facility] Last Admin: 02/12/19 21:07 Dose: 1 applic ASSESSMENT AND PLAN: Acute on Chronic Hypoxic and Hypercapneic Respiratory Failure improving r/o Pneumonia Shock likely Septic r/o Autonomic Dysfunction Volume Overload ESRD on HD +Troponins likely Demand Ischemia Pulmonary HTN h/o PE/DVT - completed antibiotics - monitor off pressors, tolerate MAP >50 - continue midodrine, florinef - d/c central line - HD per renal with ultrafiltration - taper FiO2 to keep SpO2 >90% - continue anticoagulation - DVT/GI prophylaxis - can monitor on floor
[2019-02-13] MEDS: FLUDROCORTISONE ACETATE 0.1 MG TABLET (FP) PO SCH (10:40)
[2019-02-13] MEDS: PANTOPRAZOLE 40 MG TABLET (FP) PO SCH (10:40)
[2019-02-13] MEDS: MIDODRINE HCL 5 MG TABLET PO SCH ×3 (10:40→18:08)
[2019-02-13] MEDS: VITAMIN B COMP W-C 1 EA TABLET PO SCH (10:40)
[2019-02-13] MEDS: NYSTATIN 100000 UNIT/GM TOPICAL OINTMENT 15 GM TUBE TP SCH ×2 (10:40→22:24)
[2019-02-13] MEDS: NOREPINEPHRINE BITARTRATE 8,000 MCG in DEXTROSE 5%-WATER - 492 ML IV SCH (10:41)
[2019-02-13] MEDS: SILVER SULFADIAZINE 1% TOP CREAM 400 GM JAR TP SCH ×2 (10:41→22:24)
[2019-02-13] MEDS: SERTRALINE HCL 50 MG TABLET (FP) PO SCH (10:41)
--- NOTE | 2019-02-13 11:11 | PN ---
Progress Note (short form) - Note Progress Note: s: denies cp sob palps dizzy Current Medications Generic Name Dose Route Start Last Admin Trade Name Freq PRN Reason Stop Dose Admin Acetaminophen 650 mg 02/05/19 23:36 02/12/19 18:46 Tylenol - PO 650 mg Q4H PRN Administration PAIN LEVEL 1 - 3 Amino Acids 30 ml 01/31/19 17:30 02/13/19 08:40 Prosource No Carb Liquid Pkt PO 30 ml BID@0800,1730 [facility] Administration Fludrocortisone Acetate 0.2 mg 02/12/19 11:15 02/13/19 10:40 Florinef - PO 0.2 mg DAILY [facility] Administration Sodium Chloride 250 mls @ 3,000 mls/hr 02/09/19 07:15 Normal Saline - IV PRN PRN Hypotension during Dialysis Sodium Chloride 250 mls @ 3,000 mls/hr 02/11/19 09:44 Normal Saline - IV PRN PRN Hypotension during Dialysis Insulin Aspart 1 vial 02/05/19 07:00 02/13/19 07:15 Novolog Vial Sliding Scale - SQ Not Given ACHS [facility] Protocol Levothyroxine Sodium 50 mcg 01/27/19 07:00 02/13/19 06:28 Synthroid - PO 50 mcg DAILY@0700 [facility] Administration Lidocaine/Prilocaine 1 applic 01/27/19 01:55 Emla - TP QID PRN HEMORRHOIDS Melatonin 5 mg 02/10/19 20:59 02/12/19 21:06 Melatonin PO 5 mg HS [facility] Administration Methylprednisolone Sodium Succinate 40 mg 02/13/19 11:00 Solu-Medrol - IVPUSH DAILY [facility] Midodrine 10 mg 01/27/19 14:30 02/13/19 10:40 Proamatine - PO 10 mg TID-MID [facility] Administration Multivit/Ca Carb/B Cmplx/FA/Prenat 1 tablet 01/27/19 10:00 02/13/19 10:40 Nephro-Evert - PO 1 tablet DAILY [facility] Administration Nystatin 1 applic 01/27/19 22:00 02/13/19 10:40 Mycostatin Ointment - TP 1 applic BID [facility] Administration Ondansetron HCl 4 mg 01/27/19 01:57 02/11/19 21:05 Zofran - PO 4 mg Q6H PRN Administration NAUSEA AND/OR VOMITING Pantoprazole Sodium 40 mg 02/13/19 10:00 02/13/19 10:40 Protonix - PO 40 mg DAILY [facility] Administration Rivaroxaban 15 mg 01/27/19 18:00 02/12/19 17:36 Xarelto PO 15 mg DAILY@1800 [facility] Administration Sertraline HCl 50 mg 01/27/19 10:00 02/13/19 10:41 Zoloft - PO 50 mg DAILY [facility] Administration Silver Sulfadiazine 1 applic 01/27/19 10:00 02/13/19 10:41 Silvadene - TP 1 applic BID [facility] Administration Vital Signs Period Temp Pulse Resp BP Sys/Jhaveri Pulse Ox Last 24 Hr 97.4 F-97.9 F 65-92 12-24 77-105/44-61 99-99 Constitutional: Yes: No Distress, Calm, Obese Cardiovascular: Yes: Pulse Irregular, S1, S2. No: JVD (prohibitive tds phys exam), Gallop, Murmur Respiratory: Yes: Regular, CTA Bilaterally nl eff. No: Accessory Muscle Use Extremities: No: Cold Edema: No Neurological: awake, alert appropriate Psychiatric: No: Agitated no jaundice, diaphoresis Laboratory Last Values WBC 3.6 K/mm3 (4.0-10.0) L 02/13/19 05:15 RBC 2.90 M/mm3 (3.60-5.2) L 02/13/19 05:15 Hgb 8.9 GM/dL (10.7-15.3) L 02/13/19 05:15 Hct 28.2 % (32.4-45.2) L 02/13/19 05:15 MCV 97.3 fl (80-96) H 02/13/19 05:15 MCH 30.7 pg (25.7-33.7) 02/13/19 05:15 MCHC 31.6 g/dl (32.0-36.0) L 02/13/19 05:15 RDW 20.4 % (11.6-15.6) H 02/13/19 05:15 Plt Count 126 K/MM3 (134-434) L 02/13/19 05:15 MPV 8.2 fl (7.5-11.1) 02/13/19 05:15 Absolute Neuts (auto) 2.0 K/mm3 (1.5-8.0) 02/13/19 05:15 Neutrophils % 55.9 % (42.8-82.8) 02/13/19 05:15 Lymphocytes % 30.0 % (8-40) 02/13/19 05:15 Monocytes % 9.6 % (3.8-10.2) 02/13/19 05:15 Eosinophils % 3.5 % (0-4.5) 02/13/19 05:15 Basophils % 1.0 % (0-2.0) 02/13/19 05:15 Nucleated RBC % 0 % (0-0) 02/13/19 05:15 PT with INR 20.90 SEC (9.7-13.0) H 01/27/19 05:45 INR 1.76 (0.83-1.09) H 01/27/19 05:45 PTT (Actin FS) 33.3 SECONDS (25.2-36.5) 01/27/19 05:45 Anticoagulation Therapy No Result Required. 01/27/19 06:40 Puncture Site Left radial 01/27/19 06:40 ABG pH 7.34 (7.35-7.45) L 01/27/19 06:40 ABG pCO2 at Pt Temp 38.7 mmHg (35-45) 01/27/19 06:40 ABG pO2 at Pt Temp 205 mmHg (80-105) H 01/27/19 06:40 ABG HCO3 20.1 mmol/L (22-27) L 01/27/19 06:40 ABG O2 Sat (Measured) 99.9 % (95-98) H 01/27/19 06:40 ABG O2 Content 15.0 % vol (15-22) 01/27/19 06:40 ABG Base Excess -4.7 meq/l (-2-2) L 01/27/19 06:40 Pedro Test Positive 01/27/19 06:40 Carboxyhemoglobin 1.5 % (0-2) 01/26/19 23:30 Methemoglobin 0.2 % (0-2) 01/26/19 23:30 O2 Delivery Device Vent 01/27/19 06:40 Oxygen Flow Rate 60% 01/27/19 06:40 Vent Mode A/c 01/27/19 06:40 Vent Rate 16 01/27/19 06:40 Mechanical Rate Yes 01/27/19 06:40 PEEP 5.0 cmH2O 01/27/19 06:40 Pressure Support Vent 450 01/27/19 06:40 Sodium 134 mmol/L (136-145) L 02/13/19 05:15 Potassium 4.7 mmol/L (3.5-5.1) 02/13/19 05:15 Chloride 97 mmol/L (98-107) L 02/13/19 05:15 Carbon Dioxide 33 mmol/L (21-32) H 02/13/19 05:15 Anion Gap 4 MMOL/L (8-16) L 02/13/19 05:15 BUN 32.0 mg/dL (7-18) H 02/13/19 05:15 Creatinine 3.4 mg/dL (0.55-1.3) H 02/13/19 05:15 Est GFR (CKD-EPI)AfAm 14.95 02/13/19 05:15 Est GFR (CKD-EPI)NonAf 12.90 02/13/19 05:15 POC Glucometer 158 UNITS (80-120) 02/13/19 00:38 Random Glucose 91 mg/dL (74-106) 02/13/19 05:15 Lactic Acid 2.1 mmol/L (0.4-2.0) H 01/27/19 02:00 Calcium 8.5 mg/dL (8.5-10.1) 02/13/19 05:15 Phosphorus 5.3 mg/dL (2.5-4.9) H 02/13/19 05:15 Magnesium 2.2 mg/dL (1.8-2.4) 02/13/19 05:15 Total Bilirubin 0.3 mg/dL (0.2-1) 02/13/19 05:15 AST 18 U/L (15-37) 02/13/19 05:15 ALT 15 U/L (13-61) 02/13/19 05:15 Alkaline Phosphatase 144 U/L (45-117) H 02/13/19 05:15 Creatine Kinase 76 U/L (26-192) 01/27/19 02:00 Troponin I 2.10 ng/ml (0.00-0.05) H* 01/29/19 05:30 Total Protein 6.5 g/dl (6.4-8.2) 02/13/19 05:15 Albumin 2.6 g/dl (3.4-5.0) L 02/13/19 05:15 TSH 4.97 uIU/ml (0.358-3.74) H 02/10/19 05:15 Stool Occult Blood Negative (NEGATIVE) 02/03/19 00:30 Random Vancomycin 20.4 ug/ml (18-26) 02/02/19 06:00 Digoxin 0.10 ng/ml (0.8-2.0) L 01/26/19 23:00 Assessment/Plan Echo 12/01: nl LV function, RV mod to severely dilated, RV function mod to severely reduced, mod dilated LA/RA, RVSP 40-50 mmHg, mod TR Echo 01/2019 - LV function slightly worsened, 45-50%, LA mod dilated, RV mod to severely dilated, tr AR, RV function mod to severely reduced, mild MR, mild to mod TR, RA mod to severely dilated, mobile echodensity in pleural space tele: sr IMP: -Acute on chronic hypoxic/hypercapneic respiratory failure at HD, with bradycardia (40s-50s) -possible RLL PNA, sepsis -NSTEMI (troponin to 2): most likely Type II secondary to acute strain from CHF/ pulm HTN and acute resp failure, vs sec to hypotension at time of arrest. -septic shock on Levophed, doubt cardiogenic shock here -HFpEF, pulmonary HTN, RV dysfunction -ESRD on HD -h/o DVT /PE on AC REC: -now extubated -bp remains low. levo stopped now and on midorine and florinef, monitor for now. -repeat echo with LV function slightly worsened compared to prior, RV function is mod to severely reduced (stable) -HD as per renal for volume management -Cont xarelto (anemia, PLTs stable) -hold AVN blockers --> HRs ok -will defer ischemia evaluation as this will not change management facilitator. She is at prohibitive risk for invasive tx strategy given extremely poor functional status with severe comorbidities at present. Will not tolerate signif b-blockade , though will try to give low dose if can tolerate, once she is off pressors. -no ASA for now given pt on Xarelto with mild anemia/thrombocytopenia (and likely dysfunctional PLTs in HD pt), and hi risk for bleeding at present -if she recovers from the acute illness will potentially reconsider above approach
[2019-02-13] MEDS ORDERED: SODIUM CHLORIDE 250 ML IV PRN (13:51)
[2019-02-13] MEDS: methylPREDNISolone NA SUCC 40 MG/1 ML VIAL IVPUSH SCH (14:00)
--- NOTE | 2019-02-13 14:02 | PN ---
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 ESRD 2. change in mental status 3. resp failure requiring intubation 4. chf 5. dvt 6. anemia 7. a-fib 8. hypothyroid 9. pleural effusion Current Medications Acetaminophen (Tylenol -) 650 mg PO Q4H PRN PRN Reason: PAIN LEVEL 1 - 3 Last Admin: 02/12/19 18:46 Dose: 650 mg Amino Acids (Prosource No Carb Liquid Pkt) 30 ml PO BID@0800,1730 [facility] Last Admin: 02/13/19 08:40 Dose: 30 ml Fludrocortisone Acetate (Florinef -) 0.2 mg PO DAILY [facility] Last Admin: 02/13/19 10:40 Dose: 0.2 mg Sodium Chloride (Normal Saline -) 250 mls @ 3,000 mls/hr IV PRN PRN PRN Reason: Hypotension during Dialysis Sodium Chloride (Normal Saline -) 250 mls @ 3,000 mls/hr IV PRN PRN PRN Reason: Hypotension during Dialysis Sodium Chloride (Normal Saline -) 250 mls @ 3,000 mls/hr IV PRN PRN PRN Reason: Hypotension during Dialysis Stop: 02/14/19 13:51 Insulin Aspart (Novolog Vial Sliding Scale -) 1 vial SQ ACHS [facility]; Protocol Last Admin: 02/13/19 07:15 Dose: Not Given Levothyroxine Sodium (Synthroid -) 50 mcg PO DAILY@0700 [facility] Last Admin: 02/13/19 06:28 Dose: 50 mcg Lidocaine/Prilocaine (Emla -) 1 applic TP QID PRN PRN Reason: HEMORRHOIDS Melatonin (Melatonin) 5 mg PO HS [facility] Last Admin: 02/12/19 21:06 Dose: 5 mg Methylprednisolone Sodium Succinate (Solu-Medrol -) 40 mg IVPUSH DAILY [facility] Midodrine (Proamatine -) 10 mg PO TID-MID [facility] Last Admin: 02/13/19 10:40 Dose: 10 mg Multivit/Ca Carb/B Cmplx/FA/Prenat (Nephro-Evert -) 1 tablet PO DAILY [facility] Last Admin: 02/13/19 10:40 Dose: 1 tablet Nystatin (Mycostatin Ointment -) 1 applic TP BID [facility] Last Admin: 02/13/19 10:40 Dose: 1 applic Ondansetron HCl (Zofran -) 4 mg PO Q6H PRN PRN Reason: NAUSEA AND/OR VOMITING Last Admin: 02/11/19 21:05 Dose: 4 mg Pantoprazole Sodium (Protonix -) 40 mg PO DAILY [facility] Last Admin: 02/13/19 10:40 Dose: 40 mg Rivaroxaban (Xarelto) 15 mg PO DAILY@1800 [facility] Last Admin: 02/12/19 17:36 Dose: 15 mg Sertraline HCl (Zoloft -) 50 mg PO DAILY [facility] Last Admin: 02/13/19 10:41 Dose: 50 mg Silver Sulfadiazine (Silvadene -) 1 applic TP BID [facility] Last Admin: 02/13/19 10:41 Dose: 1 applic Last Vital Signs Temp Pulse Resp BP Pulse Ox 97.9 F 75 18 79/55 L 99 02/13/19 06:00 02/13/19 10:44 02/13/19 10:44 02/13/19 10:44 02/12/19 21:00 somnolent, lying flat, no sob Lungs clear heart reg Abd soft ext no edema CBC, BMP 02/13/19 05:15 02/13/19 05:15 CBC, BMP 02/12/19 05:15 02/12/19 05:15 IMP- ESRD Hypotension on fluorinef and midodrine ac on chr resp failure nstemi septic shock hfpef/pulm htn/ rv dysfunction Plan - HD tomorrow Thursday - renal diet - continue fluid restriction - monitoring bp's - HD right thigh cath, 3 k bath, 3 15 time, 400 abf
[2019-02-13] MEDS: RIVAROXABAN 15 MG TABLET PO SCH (17:47)
[2019-02-13] MEDS: MELATONIN 5 MG TABLETS PO SCH (22:23)
[2019-02-14] MEDS: INSULIN SLIDING SCALE (NOVOLOG) 1 VIAL SQ SCH ×4 (06:41→21:44)
[2019-02-14] MEDS: LEVOTHYROXINE NA 50 MCG TABLET (FP) PO SCH (06:42)
[2019-02-14 08:31] LABS: BASO % 0.4 % (0-2.0); EOS % 0.1 % (0-4.5); HEMATOCRIT 30.2 % (32.4-45.2); HEMOGLOBIN 9.4 GM/dL (10.7-15.3); MCH 30.2 pg (25.7-33.7); MCHC 31.1 g/dl (32.0-36.0); MEAN CELL VOLUME 97.2 fl (80-96); MEAN PLT VOLUME 8.5 fl (7.5-11.1); MONO % 1.6 % (3.8-10.2); NEUT % 83.9 % (42.8-82.8); PLATELET COUNT 126 K/MM3 (134-434); RDW 20.7 % (11.6-15.6); WHITE BLOOD COUNT 2.4 K/mm3 (4.0-10.0)
[2019-02-14] MEDS: AMINO ACIDS/PROTEIN HYDROLYS 30 ML LIQUID.PKT PO SCH ×2 (08:32→17:21)
[2019-02-14 09:01] LABS: ALBUMIN 2.8 g/dl (3.4-5.0); BILIRUBIN,TOTAL 0.4 mg/dL (0.2-1); BLOOD UREA NITROGEN 43.1 mg/dL (7-18); CALCIUM 8.8 mg/dL (8.5-10.1); CREATININE 3.9 mg/dL (0.55-1.3); POTASSIUM 5.6 mmol/L (3.5-5.1); TOT PROT 6.9 g/dl (6.4-8.2)
--- NOTE | 2019-02-14 09:15 | PN ---
Progress Note, Physician - Current Medication List Current Medications: Active Medications Acetaminophen (Tylenol -) 650 mg PO Q4H PRN PRN Reason: PAIN LEVEL 1 - 3 Last Admin: 02/12/19 18:46 Dose: 650 mg Amino Acids (Prosource No Carb Liquid Pkt) 30 ml PO BID@0800,1730 [facility] Last Admin: 02/14/19 08:32 Dose: 30 ml Fludrocortisone Acetate (Florinef -) 0.2 mg PO DAILY [facility] Last Admin: 02/13/19 10:40 Dose: 0.2 mg Sodium Chloride (Normal Saline -) 250 mls @ 3,000 mls/hr IV PRN PRN PRN Reason: Hypotension during Dialysis Sodium Chloride (Normal Saline -) 250 mls @ 3,000 mls/hr IV PRN PRN PRN Reason: Hypotension during Dialysis Sodium Chloride (Normal Saline -) 250 mls @ 3,000 mls/hr IV PRN PRN PRN Reason: Hypotension during Dialysis Stop: 02/14/19 13:51 Insulin Aspart (Novolog Vial Sliding Scale -) 1 vial SQ [facility]; Protocol Last Admin: 02/14/19 06:41 Dose: 2 units Levothyroxine Sodium (Synthroid -) 50 mcg PO DAILY@0700 [facility] Last Admin: 02/14/19 06:42 Dose: 50 mcg Lidocaine/Prilocaine (Emla -) 1 applic TP QID PRN PRN Reason: HEMORRHOIDS Melatonin (Melatonin) 5 mg PO HS [facility] Last Admin: 02/13/19 22:23 Dose: 5 mg Methylprednisolone Sodium Succinate (Solu-Medrol -) 40 mg IVPUSH DAILY [facility] Last Admin: 02/13/19 14:00 Dose: 40 mg Midodrine (Proamatine -) 10 mg PO TID-MID [facility] Last Admin: 02/13/19 18:08 Dose: 10 mg Multivit/Ca Carb/B Cmplx/FA/Prenat (Nephro-Evert -) 1 tablet PO DAILY [facility] Last Admin: 02/13/19 10:40 Dose: 1 tablet Nystatin (Mycostatin Ointment -) 1 applic TP BID [facility] Last Admin: 02/13/19 22:24 Dose: 1 applic Ondansetron HCl (Zofran -) 4 mg PO Q6H PRN PRN Reason: NAUSEA AND/OR VOMITING Last Admin: 02/11/19 21:05 Dose: 4 mg Pantoprazole Sodium (Protonix -) 40 mg PO DAILY [facility] Last Admin: 02/13/19 10:40 Dose: 40 mg Rivaroxaban (Xarelto) 15 mg PO DAILY@1800 [facility] Last Admin: 02/13/19 17:47 Dose: 15 mg Sertraline HCl (Zoloft -) 50 mg PO DAILY [facility] Last Admin: 02/13/19 10:41 Dose: 50 mg Silver Sulfadiazine (Silvadene -) 1 applic TP BID [facility] Last Admin: 02/13/19 22:24 Dose: 1 applic - Objective Vital Signs: Vital Signs Temperature 97.8 F 02/14/19 08:00 Pulse Rate 83 02/14/19 08:15 Respiratory Rate 16 02/14/19 08:15 Blood Pressure 97/62 02/14/19 08:15 O2 Sat by Pulse Oximetry (%) 100 02/13/19 21:00 Cardiovascular: Yes: S1, S2 Respiratory: Yes: Regular, CTA Bilaterally Gastrointestinal: Yes: Normal Bowel Sounds, Soft. No: Tenderness Labs: CBC, BMP 02/14/19 08:00 02/14/19 08:00 INR, PTT INR 1.76 (0.83-1.09) H 01/27/19 05:45 Assessment/Plan - Problems (1) Hand swelling Assessment/Plan: got one dose of iv vancomycin yesterday Code(s): M79.89 - OTHER SPECIFIED SOFT TISSUE DISORDERS (2) Hypotension Assessment/Plan: off levophed- iv abx vancomcyin given one dose yesterday for possible hand cellulitis midodrine standing order wbc trending down keep MAP> 55 Code(s): I95.9 - HYPOTENSION, UNSPECIFIED Qualifiers: Hypotension type: unspecified hypotension type Qualified Code(s): I95.9 - Hypotension, unspecified (3) Acute respiratory failure Assessment/Plan: improved completed abx for possible pna Code(s): J96.00 - ACUTE RESPIRATORY FAILURE, UNSP W HYPOXIA OR HYPERCAPNIA Qualifiers: Respiratory failure complication: hypoxia Qualified Code(s): J96.01 - Acute respiratory failure with hypoxia (4) Hypothyroid Assessment/Plan: on synthroid Code(s): E03.9 - HYPOTHYROIDISM, UNSPECIFIED (5) ESRD on hemodialysis Assessment/Plan: HD per renal epogen with HD Code(s): N18.6 - END STAGE RENAL DISEASE; Z99.2 - DEPENDENCE ON RENAL DIALYSIS (6) H/O deep venous thrombosis Assessment/Plan: on xarelto Code(s): Z86.718 - PERSONAL HISTORY OF OTHER VENOUS THROMBOSIS AND EMBOLISM (7) Elevated troponin Assessment/Plan: NSTEMi- inc troponin secondary to strain from resp failure, septic shock Code(s): R74.8 - ABNORMAL LEVELS OF OTHER SERUM ENZYMES
[2019-02-14] MEDS: methylPREDNISolone NA SUCC 40 MG/1 ML VIAL IVPUSH SCH (09:45)
[2019-02-14] MEDS: FLUDROCORTISONE ACETATE 0.1 MG TABLET (FP) PO SCH (09:45)
[2019-02-14] MEDS: VITAMIN B COMP W-C 1 EA TABLET PO SCH (09:45)
[2019-02-14] MEDS: SILVER SULFADIAZINE 1% TOP CREAM 400 GM JAR TP SCH ×2 (09:45→21:44)
[2019-02-14] MEDS: SERTRALINE HCL 50 MG TABLET (FP) PO SCH (09:45)
[2019-02-14] MEDS: ACETAMINOPHEN 325 MG TABLET (FP) PO PRN (09:45)
[2019-02-14] MEDS: PANTOPRAZOLE 40 MG TABLET (FP) PO SCH (09:45)
[2019-02-14] MEDS: MIDODRINE HCL 5 MG TABLET PO SCH ×3 (09:48→20:29)
--- NOTE | 2019-02-14 10:36 | PN ---
Teaching Attending Note Name of Resident: Aishwarya Coombs ATTENDING PHYSICIAN STATEMENT I saw and evaluated the patient. I reviewed the resident's note and discussed the case with the resident. I agree with the resident's findings and plan as documented. SUBJECTIVE: Pt seen and examined in the ICU. Remains off pressors. Tolerated HD this AM. OBJECTIVE: Vital Signs Period Temp Pulse Resp BP Sys/Jhaveri Pulse Ox Last 24 Hr 97.7 F-97.8 F 75-85 15-21 79-106/40-86 100-100 Intake & Output 02/11/19 02/12/19 02/13/19 02/14/19 23:59 23:59 23:59 23:59 Intake Total 1042.5 600 1360 600 Output Total 3300 3300 3150 Balance -2257.5 -2700 1360 -2550 Weight 84.232 kg 84.232 kg 83.3 kg Gen: NAD at rest Heart: RRR Lung: decreased breath sounds at the bases Abd: soft, nontender Ext: no edema CBC, BMP 02/14/19 08:00 02/14/19 08:00 Active Medications Acetaminophen (Tylenol -) 650 mg PO Q4H PRN PRN Reason: PAIN LEVEL 1 - 3 Last Admin: 02/14/19 09:45 Dose: 650 mg Amino Acids (Prosource No Carb Liquid Pkt) 30 ml PO BID@0800,1730 [facility] Last Admin: 02/14/19 08:32 Dose: 30 ml Fludrocortisone Acetate (Florinef -) 0.2 mg PO DAILY [facility] Last Admin: 02/14/19 09:45 Dose: 0.2 mg Sodium Chloride (Normal Saline -) 250 mls @ 3,000 mls/hr IV PRN PRN PRN Reason: Hypotension during Dialysis Sodium Chloride (Normal Saline -) 250 mls @ 3,000 mls/hr IV PRN PRN PRN Reason: Hypotension during Dialysis Sodium Chloride (Normal Saline -) 250 mls @ 3,000 mls/hr IV PRN PRN PRN Reason: Hypotension during Dialysis Stop: 02/14/19 13:51 Insulin Aspart (Novolog Vial Sliding Scale -) 1 vial SQ ACHS [facility]; Protocol Last Admin: 02/14/19 06:41 Dose: 2 units Levothyroxine Sodium (Synthroid -) 50 mcg PO DAILY@0700 [facility] Last Admin: 02/14/19 06:42 Dose: 50 mcg Lidocaine/Prilocaine (Emla -) 1 applic TP QID PRN PRN Reason: HEMORRHOIDS Melatonin (Melatonin) 5 mg PO HS [facility] Last Admin: 02/13/19 22:23 Dose: 5 mg Methylprednisolone Sodium Succinate (Solu-Medrol -) 40 mg IVPUSH DAILY [facility] Last Admin: 02/14/19 09:45 Dose: 40 mg Midodrine (Proamatine -) 10 mg PO TID-MID [facility] Last Admin: 02/14/19 09:48 Dose: 10 mg Multivit/Ca Carb/B Cmplx/FA/Prenat (Nephro-Evert -) 1 tablet PO DAILY [facility] Last Admin: 02/14/19 09:45 Dose: 1 tablet Nystatin (Mycostatin Ointment -) 1 applic TP BID [facility] Last Admin: 02/13/19 22:24 Dose: 1 applic Ondansetron HCl (Zofran -) 4 mg PO Q6H PRN PRN Reason: NAUSEA AND/OR VOMITING Last Admin: 02/11/19 21:05 Dose: 4 mg Pantoprazole Sodium (Protonix -) 40 mg PO DAILY [facility] Last Admin: 02/14/19 09:45 Dose: 40 mg Rivaroxaban (Xarelto) 15 mg PO DAILY@1800 [facility] Last Admin: 02/13/19 17:47 Dose: 15 mg Sertraline HCl (Zoloft -) 50 mg PO DAILY [facility] Last Admin: 02/14/19 09:45 Dose: 50 mg Silver Sulfadiazine (Silvadene -) 1 applic TP BID [facility] Last Admin: 02/14/19 09:45 Dose: 1 applic ASSESSMENT AND PLAN: Acute on Chronic Hypoxic and Hypercapneic Respiratory Failure improving r/o Pneumonia Shock likely Septic r/o Autonomic Dysfunction Volume Overload ESRD on HD +Troponins likely Demand Ischemia Pulmonary HTN h/o PE/DVT - completed antibiotics - monitor off pressors, tolerate MAP >50 - continue midodrine, florinef - HD per renal with ultrafiltration - taper FiO2 to keep SpO2 >90% - continue anticoagulation - DVT/GI prophylaxis - can monitor on floor
[2019-02-14 10:41] LABS: ANISOCYTOSIS 2+; MACROCYTOSIS 1+; OVALOCYTE 1+; PLATELET ESTIMATE DECREASED; TEAR DROP CELLS 1+
[2019-02-14] MEDS: NYSTATIN 100000 UNIT/GM TOPICAL OINTMENT 15 GM TUBE TP SCH ×2 (10:55→21:44)
--- NOTE | 2019-02-14 10:56 | PN ---
Physical Exam: SUBJECTIVE: Patient seen and examined at bedside. pt has no acute complaints OBJECTIVE: Vital Signs Period Temp Pulse Resp BP Sys/Jhaveri Pulse Ox Last 24 Hr 97.7 F-97.8 F 76-85 15-21 82-106/40-86 100-100 GENERAL: The patient is awake, alert, in no acute distress. HEAD: Normal with no signs of trauma. LUNGS: Breath sounds equal, clear to auscultation bilaterally, no wheezes, no crackles, no accessory muscle use. HEART: irregular rate and rhythm, S1, S2 ,+ murmur ABDOMEN: Soft, nontender, nondistended, normoactive bowel sounds, no guarding EXTREMITIES: 2+ pulses, warm, well-perfused, no edema. SKIN: Warm, dry, normal turgor, no rashes or lesions noted Laboratory Results - last 24 hr 02/14/19 02/14/19 02/14/19 06:35 08:00 08:00 WBC 2.4 L RBC 3.10 L Hgb 9.4 L Hct 30.2 L MCV 97.2 H MCH 30.2 MCHC 31.1 L RDW 20.7 H Plt Count 126 L MPV 8.5 Absolute Neuts (auto) 2.0 Neutrophils % 83.9 H D Lymphocytes % 14.0 D Monocytes % 1.6 L D Eosinophils % 0.1 D Basophils % 0.4 Nucleated RBC % 1 H Sodium 131 L Potassium 5.6 H Chloride 94 L Carbon Dioxide 28 Anion Gap 9 BUN 43.1 H Creatinine 3.9 H Est GFR (CKD-EPI)AfAm 12.66 Est GFR (CKD-EPI)NonAf 10.93 POC Glucometer 169 Random Glucose 165 H Calcium 8.8 Total Bilirubin 0.4 AST 17 ALT 17 Alkaline Phosphatase 159 H Total Protein 6.9 Albumin 2.8 L Current Medications Acetaminophen (Tylenol -) 650 mg PO Q4H PRN PRN Reason: PAIN LEVEL 1 - 3 Last Admin: 02/14/19 09:45 Dose: 650 mg Amino Acids (Prosource No Carb Liquid Pkt) 30 ml PO BID@0800,1730 [facility] Last Admin: 02/14/19 08:32 Dose: 30 ml Fludrocortisone Acetate (Florinef -) 0.2 mg PO DAILY [facility] Last Admin: 02/14/19 09:45 Dose: 0.2 mg Sodium Chloride (Normal Saline -) 250 mls @ 3,000 mls/hr IV PRN PRN PRN Reason: Hypotension during Dialysis Sodium Chloride (Normal Saline -) 250 mls @ 3,000 mls/hr IV PRN PRN PRN Reason: Hypotension during Dialysis Sodium Chloride (Normal Saline -) 250 mls @ 3,000 mls/hr IV PRN PRN PRN Reason: Hypotension during Dialysis Stop: 02/14/19 13:51 Insulin Aspart (Novolog Vial Sliding Scale -) 1 vial SQ ACHS [facility]; Protocol Last Admin: 02/14/19 06:41 Dose: 2 units Levothyroxine Sodium (Synthroid -) 50 mcg PO DAILY@0700 [facility] Last Admin: 02/14/19 06:42 Dose: 50 mcg Lidocaine/Prilocaine (Emla -) 1 applic TP QID PRN PRN Reason: HEMORRHOIDS Melatonin (Melatonin) 5 mg PO HS [facility] Last Admin: 02/13/19 22:23 Dose: 5 mg Midodrine (Proamatine -) 10 mg PO TID-MID [facility] Last Admin: 02/14/19 09:48 Dose: 10 mg Multivit/Ca Carb/B Cmplx/FA/Prenat (Nephro-Evert -) 1 tablet PO DAILY [facility] Last Admin: 02/14/19 09:45 Dose: 1 tablet Nystatin (Mycostatin Ointment -) 1 applic TP BID [facility] Last Admin: 02/13/19 22:24 Dose: 1 applic Ondansetron HCl (Zofran -) 4 mg PO Q6H PRN PRN Reason: NAUSEA AND/OR VOMITING Last Admin: 02/11/19 21:05 Dose: 4 mg Pantoprazole Sodium (Protonix -) 40 mg PO DAILY [facility] Last Admin: 02/14/19 09:45 Dose: 40 mg Rivaroxaban (Xarelto) 15 mg PO DAILY@1800 [facility] Last Admin: 02/13/19 17:47 Dose: 15 mg Sertraline HCl (Zoloft -) 50 mg PO DAILY [facility] Last Admin: 02/14/19 09:45 Dose: 50 mg Silver Sulfadiazine (Silvadene -) 1 applic TP BID [facility] Last Admin: 02/14/19 09:45 Dose: 1 applic ASSESSMENT/PLAN: 73 yo F with a PMH of ESRD, Orthostatic Hypotension, CHF, DM, hypothyroid, COPD , Afib (on Xarelto), DVTs, Pulmonary Edema and multiple prior admissions for pneumonia admitted to the ICU for unresponsiveness secondary to acute hypercapneic respiratory failure and hypotension likely 2/2 dialysis. Acute on Chronic hypercapnic respiratory failure Sepsis ESRD HFrEF Hypothyroidism Anemia, thrombocytopenia LINES - R femoral Tesio catheter CARDIOLOGY Orthostatic hypotension likely 2/2 hemodialysis HFrEF Afib -MAPs stable off levophed . -c/w fludrocortisone 0.2 mg daily - previous echo 12/08/18 showing normal EF, moderate to severe right ventricle dilation, increased right ventricular systolic pressure. -repeat echo with LV function slightly worsened compared to prior, RV function is mod to severely reduced (stable) -repeat echo shows echodensity in pleural space - consider chest imaging per critical care -HD for volume management -C/w xarelto for A fib -continue to hold AV node blockers -c/w midodrine for bp support - Pt unable to tolerate BB at this time -no ASA for now given pt on Xarelto with mild anemia/thrombocytopenia (and likely dysfunctional PLTs in HD pt), and high risk for bleeding at present -if she recovers from the acute illness will potentially reconsider above approach RESPIRATORY-> Acute on chronic hypercapneic respiratory failure 2/2 Sepsis - on NC, satting in mid s. - albuterol nebulizer q6h prn RENAL-> ESRD - Nephrology (Dr. Molina) recs appreciated - HD today - ultrafiltrate volume as tolerated - monitor lytes - renal diet - monitor bp INFECTIOUS DISEASE-> Septic shock - now stable off Levo, c.w fludrocortisone - c/w midodrine - hypotensive, no leukocytosis, afebrile - pt chronically hypotensive at baseline - hx of cdiff, cautious approach to continuing antibiotics - blood cxs negative -ID recs appreciated ENDOCRINE-> Hypothyroidism - continue home Synthroid - BGM q6h - ISS HEMATOLOGY-> Anemia/thrombocytopenia 2/2 Sepsis/ESRD - FOBT negative. no evidence of acute bleed - Hgb stable 9.4, continuing to monitor if Hb < 7 will transfuse - thrombocytopenia improved, continue to monitor Vascular RUE edema - duplex US negative for thrombosis F/E/N - continue to monitor electrolytes and replete as necessary, less aggressive hypokalemia and hypophospatemia replacement in setting of ESRD - dysphagia ground and nectar thick fluids. PROPHYLAXIS - c/w Xarelto -c/w protonix 40 CODE - full code DISPO -transfer to medicine floors Visit type - Emergency Visit Emergency Visit: No - New Patient This patient is new to me today: No - Critical Care Critical Care patient: Yes Total Critical Care Time (in minutes): 37 Critical Care Statement: The care of this patient involved high complexity decision making to prevent further life threatening deterioration of the patient 's condition and/or to evaluate & treat vital organ system(s) failure or risk of failure. - Discharge Referral Referred to [facility] Med [facility] No ATTENDING PHYSICIAN STATEMENT I saw and evaluated the patient. I reviewed the resident's note and discussed the case with the resident. I agree with the resident's findings and plan as documented. SUBJECTIVE: OBJECTIVE: ASSESSMENT AND PLAN:
--- NOTE | 2019-02-14 11:10 | PN ---
Progress Note (short form) - Note Progress Note: s: denies cp sob palps dizzy Current Medications Generic Name Dose Route Start Last Admin Trade Name Roberto PRN Reason Stop Dose Admin Acetaminophen 650 mg 02/05/19 23:36 02/14/19 09:45 Tylenol - PO 650 mg Q4H PRN Administration PAIN LEVEL 1 - 3 Amino Acids 30 ml 01/31/19 17:30 02/14/19 08:32 Prosource No Carb Liquid Pkt PO 30 ml BID@0800,1730 [facility] Administration Fludrocortisone Acetate 0.2 mg 02/12/19 11:15 02/14/19 09:45 Florinef - PO 0.2 mg DAILY [facility] Administration Sodium Chloride 250 mls @ 3,000 mls/hr 02/09/19 07:15 Normal Saline - IV PRN PRN Hypotension during Dialysis Sodium Chloride 250 mls @ 3,000 mls/hr 02/11/19 09:44 Normal Saline - IV PRN PRN Hypotension during Dialysis Sodium Chloride 250 mls @ 3,000 mls/hr 02/13/19 13:51 Normal Saline - IV 02/14/19 13:51 PRN PRN Hypotension during Dialysis Insulin Aspart 1 vial 02/05/19 07:00 02/14/19 06:41 Novolog Vial Sliding Scale - SQ 2 units ACHS [facility] Administration Protocol Levothyroxine Sodium 50 mcg 01/27/19 07:00 02/14/19 06:42 Synthroid - PO 50 mcg DAILY@0700 [facility] Administration Lidocaine/Prilocaine 1 applic 01/27/19 01:55 Emla - TP QID PRN HEMORRHOIDS Melatonin 5 mg 02/10/19 20:59 02/13/19 22:23 Melatonin PO 5 mg HS [facility] Administration Midodrine 10 mg 01/27/19 14:30 02/14/19 09:48 Proamatine - PO 10 mg TID-MID [facility] Administration Multivit/Ca Carb/B Cmplx/FA/Prenat 1 tablet 01/27/19 10:00 02/14/19 09:45 Nephro-Evert - PO 1 tablet DAILY [facility] Administration Nystatin 1 applic 01/27/19 22:00 02/14/19 10:55 Mycostatin Ointment - TP 1 applic BID [facility] Administration Ondansetron HCl 4 mg 01/27/19 01:57 02/11/19 21:05 Zofran - PO 4 mg Q6H PRN Administration NAUSEA AND/OR VOMITING Pantoprazole Sodium 40 mg 02/13/19 10:00 02/14/19 09:45 Protonix - PO 40 mg DAILY [facility] Administration Rivaroxaban 15 mg 01/27/19 18:00 02/13/19 17:47 Xarelto PO 15 mg DAILY@1800 [facility] Administration Sertraline HCl 50 mg 01/27/19 10:00 02/14/19 09:45 Zoloft - PO 50 mg DAILY [facility] Administration Silver Sulfadiazine 1 applic 01/27/19 10:00 02/14/19 09:45 Silvadene - TP 1 applic BID [facility] Administration Vital Signs Period Temp Pulse Resp BP Sys/Jhaveri Pulse Ox Last 24 Hr 97.7 F-97.8 F 76-85 15-21 82-106/40-86 100-100 Constitutional: Yes: No Distress, Calm, Obese Cardiovascular: Yes: Pulse Irregular, S1, S2. No: JVD (prohibitive tds phys exam), Gallop, Murmur Respiratory: Yes: Regular, CTA Bilaterally nl eff. No: Accessory Muscle Use Extremities: No: Cold Edema: No Neurological: awake, alert appropriate Psychiatric: No: Agitated no jaundice, diaphoresis CBC, BMP 02/14/19 08:00 02/14/19 08:00 Assessment/Plan Echo 12/01: nl LV function, RV mod to severely dilated, RV function mod to severely reduced, mod dilated LA/RA, RVSP 40-50 mmHg, mod TR Echo 01/2019 - LV function slightly worsened, 45-50%, LA mod dilated, RV mod to severely dilated, tr AR, RV function mod to severely reduced, mild MR, mild to mod TR, RA mod to severely dilated, mobile echodensity in pleural space tele: sr IMP: -Acute on chronic hypoxic/hypercapneic respiratory failure at HD, with bradycardia (40s-50s) -possible RLL PNA, sepsis -NSTEMI (troponin to 2): most likely Type II secondary to acute strain from CHF/ pulm HTN and acute resp failure, vs sec to hypotension at time of arrest. -septic shock on Levophed, doubt cardiogenic shock here -HFpEF, pulmonary HTN, RV dysfunction -ESRD on HD -h/o DVT /PE on AC REC: -now extubated -levo stopped now and on midorine and florinef, bp ok today -repeat echo with LV function slightly worsened compared to prior, RV function is mod to severely reduced (stable) -HD as per renal for volume management -Cont xarelto (anemia, PLTs stable) -hold AVN blockers --> HRs ok -will defer ischemia evaluation as this will not private branch exchange service advisor. She is at prohibitive risk for invasive tx strategy given extremely poor functional status with severe comorbidities at present. Will not tolerate signif b-blockade , though will try to give low dose if can tolerate, once she is off pressors. -no ASA for now given pt on Xarelto with mild anemia/thrombocytopenia (and likely dysfunctional PLTs in HD pt), and hi risk for bleeding at present
[2019-02-14 11:26] VITALS: BMI 33.5
[2019-02-14] MEDS ORDERED: LIDOCAINE 2.5%/PRILOCAINE 2.5% (5 Gram/TUBE) TP PRN (16:13)
[2019-02-14] MEDS ORDERED: SODIUM CHLORIDE 250 ML IV PRN ×2 (16:13)
[2019-02-14] MEDS ORDERED: ONDANSETRON 4 MG TABLET PO PRN (16:13)
[2019-02-14] MEDS ORDERED: ACETAMINOPHEN 325 MG TABLET (FP) PO PRN (16:13)
[2019-02-14] MEDS: RIVAROXABAN 15 MG TABLET PO SCH (17:22)
[2019-02-14] MEDS ORDERED: INSULIN (NOVOLOG) ASPART 100 UNITS/ML 10ML VIAL ONE (21:34)
[2019-02-14] MEDS: MELATONIN 5 MG TABLETS PO SCH (21:44)
[2019-02-15] MEDS: INSULIN SLIDING SCALE (NOVOLOG) 1 VIAL SQ SCH ×4 (06:24→22:18)
[2019-02-15] MEDS: LEVOTHYROXINE NA 50 MCG TABLET (FP) PO SCH (06:24)
[2019-02-15] MEDS ORDERED: INSULIN (NOVOLOG) ASPART 100 UNITS/ML 10ML VIAL ONE (07:04)
[2019-02-15 07:59] LABS: HEMATOCRIT 28.7 % (32.4-45.2); MCH 30.6 pg (25.7-33.7); MCHC 31.3 g/dl (32.0-36.0); MEAN CELL VOLUME 97.5 fl (80-96); MEAN PLT VOLUME 8.3 fl (7.5-11.1); PLATELET COUNT 111 K/MM3 (134-434); RBC 2.94 M/mm3 (3.60-5.2); RDW 20.8 % (11.6-15.6)
[2019-02-15 08:18] LABS: BLOOD UREA NITROGEN 34.1 mg/dL (7-18); CALCIUM 8.9 mg/dL (8.5-10.1); CREATININE 3.4 mg/dL (0.55-1.3); MAGNESIUM 2.3 mg/dL (1.8-2.4); PHOSPHOROUS 4.9 mg/dL (2.5-4.9)
[2019-02-15] MEDS: AMINO ACIDS/PROTEIN HYDROLYS 30 ML LIQUID.PKT PO SCH ×2 (08:37→18:02)
[2019-02-15] MEDS ORDERED: PT OWN MED DRAWER 7, Y5N ONE ×4 (09:18→21:31)
[2019-02-15] MEDS: MIDODRINE HCL 5 MG TABLET PO SCH ×3 (09:22→18:36)
[2019-02-15] MEDS: VITAMIN B COMP W-C 1 EA TABLET PO SCH (09:23)
[2019-02-15] MEDS: FLUDROCORTISONE ACETATE 0.1 MG TABLET (FP) PO SCH (09:24)
[2019-02-15] MEDS: SERTRALINE HCL 50 MG TABLET (FP) PO SCH (09:24)
[2019-02-15] MEDS: PANTOPRAZOLE 40 MG TABLET (FP) PO SCH (09:53)
[2019-02-15] MEDS: SILVER SULFADIAZINE 1% TOP CREAM 400 GM JAR TP SCH ×2 (09:57→22:18)
--- NOTE | 2019-02-15 10:59 | PN ---
Progress Note, RN DIALYSIS - Note Progress Note: Now out of ICU, on 5 s. Selected Entries 02/14/19 02/14/19 02/14/19 06:00 08:00 10:00 Breakfast Lunch Supper Temperature 97.7 F 97.8 F 97.8 F 02/14/19 02/14/19 02/14/19 14:00 15:00 15:58 Breakfast 75% Lunch 75% Supper Temperature 97.6 F 97.5 F L 02/14/19 02/14/19 02/15/19 17:30 18:00 01:00 Breakfast Lunch Supper 75% Temperature 97.3 F L 98.2 F 02/15/19 05:00 Breakfast Lunch Supper Temperature 97.7 F Laboratory Tests 02/13/19 02/14/19 02/15/19 05:15 08:00 07:42 WBC 3.6 L 2.4 L 4.0 Pt on dys ground diet/nectar thick liquids. Patient is tolerating her diet well and has a good appetite. Pt requesting diet upgrade. She was on rewg/thin at [place]. Pt w h/o intubation. Consider MBS to further assess swallowing function for possible diet upgrade.
--- NOTE | 2019-02-15 12:43 | PN ---
Progress Note (short form) - Note Progress Note: PULMONARY c/o new nonproductive cough and some shortness of breath. No fevers. Vital Signs Period Temp Pulse Resp BP Sys/Jhaveri Pulse Ox Last 24 Hr 97.3 F-98.2 F 78-100 19-20 87-113/42-64 100 Gen: mildly tachypneic at rest Heart: RRR Lung: decreased breath sounds at the bases Abd: soft, nontender Ext: no edema CBC, BMP 02/15/19 07:42 02/15/19 07:42 Active Medications Acetaminophen (Tylenol -) 650 mg PO Q4H PRN PRN Reason: PAIN LEVEL 1 - 3 Amino Acids (Prosource No Carb Liquid Pkt) 30 ml PO BID@0800,1730 [facility] Last Admin: 02/15/19 08:37 Dose: 30 ml Fludrocortisone Acetate (Florinef -) 0.2 mg PO DAILY [facility] Last Admin: 02/15/19 09:24 Dose: 0.2 mg Guaifenesin (Robitussin -) 10 ml PO Q6H PRN PRN Reason: COUGH Sodium Chloride (Normal Saline -) 250 mls @ 3,000 mls/hr IV PRN PRN PRN Reason: Hypotension during Dialysis Insulin Aspart (Novolog Vial Sliding Scale -) 1 vial SQ ACHS [facility]; Protocol Last Admin: 02/15/19 06:24 Dose: Not Given Levothyroxine Sodium (Synthroid -) 50 mcg PO DAILY@0700 [facility] Last Admin: 02/15/19 06:24 Dose: 50 mcg Lidocaine/Prilocaine (Emla -) 1 applic TP QID PRN PRN Reason: HEMORRHOIDS Melatonin (Melatonin) 5 mg PO HS [facility] Last Admin: 02/14/19 21:44 Dose: 5 mg Midodrine (Proamatine -) 10 mg PO TID-MID [facility] Last Admin: 02/15/19 09:22 Dose: 10 mg Multivit/Ca Carb/B Cmplx/FA/Prenat (Nephro-Evert -) 1 tablet PO DAILY [facility] Last Admin: 02/15/19 09:23 Dose: 1 tablet Nystatin (Mycostatin Ointment -) 1 applic TP BID [facility] Last Admin: 02/14/19 21:44 Dose: 1 applic Ondansetron HCl (Zofran -) 4 mg PO Q6H PRN PRN Reason: NAUSEA AND/OR VOMITING Pantoprazole Sodium (Protonix -) 40 mg PO DAILY [facility] Last Admin: 02/15/19 09:53 Dose: 40 mg Rivaroxaban (Xarelto) 15 mg PO DAILY@1800 [facility] Last Admin: 02/14/19 17:22 Dose: 15 mg Sertraline HCl (Zoloft -) 50 mg PO DAILY [facility] Last Admin: 02/15/19 09:24 Dose: 50 mg Silver Sulfadiazine (Silvadene -) 1 applic TP BID [facility] Last Admin: 02/15/19 09:57 Dose: 1 applic A/P Acute on Chronic Hypoxic and Hypercapneic Respiratory Failure improving r/o Pneumonia Shock likely Septic improving r/o Autonomic Dysfunction Volume Overload ESRD on HD +Troponins likely Demand Ischemia Pulmonary HTN h/o PE/DVT - check CXR - completed antibiotics - continue midodrine, florinef - HD per renal with ultrafiltration - taper FiO2 to keep SpO2 >90% - continue anticoagulation - aspiration precautions - DVT/GI prophylaxis
--- NOTE | 2019-02-15 12:48 | PN ---
Progress Note (short form) - Note Progress Note: s: denies cp sob palps dizzy Current Medications Acetaminophen (Tylenol -) 650 mg PO Q4H PRN PRN Reason: PAIN LEVEL 1 - 3 Amino Acids (Prosource No Carb Liquid Pkt) 30 ml PO BID@0800,1730 [facility] Last Admin: 02/15/19 08:37 Dose: 30 ml Fludrocortisone Acetate (Florinef -) 0.2 mg PO DAILY [facility] Last Admin: 02/15/19 09:24 Dose: 0.2 mg Guaifenesin (Robitussin -) 10 ml PO Q6H PRN PRN Reason: COUGH Sodium Chloride (Normal Saline -) 250 mls @ 3,000 mls/hr IV PRN PRN PRN Reason: Hypotension during Dialysis Insulin Aspart (Novolog Vial Sliding Scale -) 1 vial SQ ACHS [facility]; Protocol Last Admin: 02/15/19 06:24 Dose: Not Given Levothyroxine Sodium (Synthroid -) 50 mcg PO DAILY@0700 [facility] Last Admin: 02/15/19 06:24 Dose: 50 mcg Lidocaine/Prilocaine (Emla -) 1 applic TP QID PRN PRN Reason: HEMORRHOIDS Melatonin (Melatonin) 5 mg PO HS [facility] Last Admin: 02/14/19 21:44 Dose: 5 mg Midodrine (Proamatine -) 10 mg PO TID-MID [facility] Last Admin: 02/15/19 09:22 Dose: 10 mg Multivit/Ca Carb/B Cmplx/FA/Prenat (Nephro-Evert -) 1 tablet PO DAILY [facility] Last Admin: 02/15/19 09:23 Dose: 1 tablet Nystatin (Mycostatin Ointment -) 1 applic TP BID [facility] Last Admin: 02/14/19 21:44 Dose: 1 applic Ondansetron HCl (Zofran -) 4 mg PO Q6H PRN PRN Reason: NAUSEA AND/OR VOMITING Pantoprazole Sodium (Protonix -) 40 mg PO DAILY [facility] Last Admin: 02/15/19 09:53 Dose: 40 mg Rivaroxaban (Xarelto) 15 mg PO DAILY@1800 [facility] Last Admin: 02/14/19 17:22 Dose: 15 mg Sertraline HCl (Zoloft -) 50 mg PO DAILY [facility] Last Admin: 09/03/19 09:24 Dose: 50 mg Silver Sulfadiazine (Silvadene -) 1 applic TP BID [facility] Last Admin: 02/15/19 09:57 Dose: 1 applic Vital Signs Period Temp Pulse Resp BP Sys/Jhaveri Pulse Ox Last 24 Hr 97.3 F-98.2 F 78-100 19-20 87-113/42-64 100 Constitutional: Yes: No Distress, Calm, Obese Cardiovascular: Yes: Pulse Irregular, S1, S2. No: JVD (prohibitive tds phys exam), Gallop, Murmur Respiratory: Yes: Regular, CTA Bilaterally nl eff. No: Accessory Muscle Use Extremities: No: Cold Edema: No Neurological: awake, alert appropriate Psychiatric: No: Agitated no jaundice, diaphoresis Assessment/Plan Echo 12/01: nl LV function, RV mod to severely dilated, RV function mod to severely reduced, mod dilated LA/RA, RVSP 40-50 mmHg, mod TR Echo 01/2019 - LV function slightly worsened, 45-50%, LA mod dilated, RV mod to severely dilated, tr AR, RV function mod to severely reduced, mild MR, mild to mod TR, RA mod to severely dilated, mobile echodensity in pleural space tele: sr IMP: -Acute on chronic hypoxic/hypercapneic respiratory failure at HD, with bradycardia (40s-50s) -possible RLL PNA, sepsis -NSTEMI (troponin to 2): most likely Type II secondary to acute strain from CHF/ pulm HTN and acute resp failure, vs sec to hypotension at time of arrest. -septic shock on Levophed, doubt cardiogenic shock here -HFpEF, pulmonary HTN, RV dysfunction -ESRD on HD -h/o DVT /PE on AC REC: - on midorine and florinef, bp stable -repeat echo with LV function slightly worsened compared to prior, RV function is mod to severely reduced (stable) -HD as per renal for volume management -Cont xarelto (anemia, PLTs stable) -hold AVN blockers --> HRs ok -will defer ischemia evaluation as this will not pattern changer. She is at prohibitive risk for invasive tx strategy given extremely poor functional status with severe comorbidities at present. Will not tolerate signif b-blockade , though will try to give low dose if can tolerate, once she is off pressors. -no ASA for now given pt on Xarelto with mild anemia/thrombocytopenia (and likely dysfunctional PLTs in HD pt), and hi risk for bleeding at present
--- NOTE | 2019-02-15 14:49 | PN ---
Progress Note, Physician History of Present Illness: Pt seen and examine at bedside. She is awake and alert. Her breathing is improved. She is on oxygen and has been off of bipap. - Current Medication List Current Medications: Active Medications Acetaminophen (Tylenol -) 650 mg PO Q4H PRN PRN Reason: PAIN LEVEL 1 - 3 Amino Acids (Prosource No Carb Liquid Pkt) 30 ml PO BID@0800,1730 [facility] [place] Last Admin: 02/15/19 08:37 Dose: 30 ml Fludrocortisone Acetate (Florinef -) 0.2 mg PO DAILY [facility] Last Admin: 02/15/19 09:24 Dose: 0.2 mg Guaifenesin (Robitussin -) 10 ml PO Q6H PRN PRN Reason: COUGH Sodium Chloride (Normal Saline -) 250 mls @ 3,000 mls/hr IV PRN PRN PRN Reason: Hypotension during Dialysis Insulin Aspart (Novolog Vial Sliding Scale -) 1 vial SQ ACHS [facility] [place]; Protocol Last Admin: 02/15/19 13:00 Dose: Not Given Levothyroxine Sodium (Synthroid -) 50 mcg PO DAILY@0700 [facility] Last Admin: 02/15/19 06:24 Dose: 50 mcg Lidocaine/Prilocaine (Emla -) 1 applic TP QID PRN PRN Reason: HEMORRHOIDS Melatonin (Melatonin) 5 mg PO HS [facility] [place] Last Admin: 02/14/19 21:44 Dose: 5 mg Midodrine (Proamatine -) 10 mg PO TID-MID [facility] [place] Last Admin: 02/15/19 09:22 Dose: 10 mg Multivit/Ca Carb/B Cmplx/FA/Prenat (Nephro-Evert -) 1 tablet PO DAILY [facility] Last Admin: 02/15/19 09:23 Dose: 1 tablet Nystatin (Mycostatin Ointment -) 1 applic TP BID [facility] Last Admin: 02/14/19 21:44 Dose: 1 applic Ondansetron HCl (Zofran -) 4 mg PO Q6H PRN PRN Reason: NAUSEA AND/OR VOMITING Pantoprazole Sodium (Protonix -) 40 mg PO DAILY [facility] [place] Last Admin: 02/15/19 09:53 Dose: 40 mg Rivaroxaban (Xarelto) 15 mg PO DAILY@1800 [facility] Last Admin: 02/14/19 17:22 Dose: 15 mg Sertraline HCl (Zoloft -) 50 mg PO DAILY [facility] Last Admin: 02/15/19 09:24 Dose: 50 mg Silver Sulfadiazine (Silvadene -) 1 applic TP BID [facility] Last Admin: 02/15/19 09:57 Dose: 1 applic - Objective Vital Signs: Vital Signs Temperature 97.7 F 02/15/19 05:00 Pulse Rate 100 H 02/15/19 05:00 Respiratory Rate 20 02/15/19 05:00 Blood Pressure 113/63 02/15/19 05:00 O2 Sat by Pulse Oximetry (%) 100 02/14/19 21:00 Constitutional: Yes: Calm Eyes: Yes: Conjunctiva Clear HENT: Yes: Atraumatic Neck: Yes: Supple Cardiovascular: Yes: S1, S2 Respiratory: Yes: On Nasal O2 Gastrointestinal: Yes: Soft Genitourinary: Yes: Incontinence Musculoskeletal: Yes: WNL Edema: Yes Edema: LUE: 1+, RUE: 1+ Neurological: Yes: Oriented Psychiatric: Yes: Oriented Labs: CBC, BMP 02/15/19 07:42 02/15/19 07:42 INR, PTT INR 1.76 (0.83-1.09) H 01/27/19 05:45 Problem List - Problems (1) Acute respiratory failure Code(s): J96.00 - ACUTE RESPIRATORY FAILURE, UNSP W HYPOXIA OR HYPERCAPNIA Qualifiers: Respiratory failure complication: hypoxia Qualified Code(s): J96.01 - Acute respiratory failure with hypoxia (2) ESRD on hemodialysis Code(s): N18.6 - END STAGE RENAL DISEASE; Z99.2 - DEPENDENCE ON RENAL DIALYSIS Assessment/Plan Current Medications Generic Name Dose Route Start Last Admin Trade Name Freq PRN Reason Stop Dose Admin Acetaminophen 650 mg 02/14/19 16:13 Tylenol - PO Q4H PRN PAIN LEVEL 1 - 3 Amino Acids 30 ml 02/14/19 17:30 02/15/19 08:37 Prosource No Carb Liquid Pkt PO 30 ml BID@0800,1730 [facility] Administration Fludrocortisone Acetate 0.2 mg 02/15/19 10:00 02/15/19 09:24 Florinef - PO 0.2 mg DAILY [facility] Administration Guaifenesin 10 ml 02/15/19 12:41 Robitussin - PO Q6H PRN COUGH Sodium Chloride 250 mls @ 3,000 mls/hr 02/14/19 16:13 Normal Saline - IV PRN PRN Hypotension during Dialysis Insulin Aspart 1 vial 02/14/19 16:30 02/15/19 13:00 Novolog Vial Sliding Scale - SQ Not Given ACHS [facility] [place] Protocol Levothyroxine Sodium 50 mcg 02/15/19 07:00 02/15/19 06:24 Synthroid - PO 50 mcg DAILY@0700 [facility] Administration Lidocaine/Prilocaine 1 applic 02/14/19 16:13 Emla - TP QID PRN HEMORRHOIDS Melatonin 5 mg 02/14/19 22:00 02/14/19 21:44 Melatonin PO 5 mg HS [facility] Administration Midodrine 10 mg 02/14/19 18:00 02/15/19 09:22 Proamatine - PO 10 mg TID-MID [facility] Administration Multivit/Ca Carb/B Cmplx/FA/Prenat 1 tablet 02/15/19 10:00 02/15/19 09:23 Nephro-Evert - PO 1 tablet DAILY [facility] Administration Nystatin 1 applic 02/14/19 22:00 02/14/19 21:44 Mycostatin Ointment - TP 1 applic BID [facility] Administration Ondansetron HCl 4 mg 02/14/19 16:13 Zofran - PO Q6H PRN NAUSEA AND/OR VOMITING Pantoprazole Sodium 40 mg 02/15/19 10:00 02/15/19 09:53 Protonix - PO 40 mg DAILY [facility] Administration Rivaroxaban 15 mg 02/14/19 18:00 02/14/19 17:22 Xarelto PO 15 mg DAILY@1800 [facility] Administration Sertraline HCl 50 mg 02/15/19 10:00 02/15/19 09:24 Zoloft - PO 50 mg DAILY [facility] Administration Silver Sulfadiazine 1 applic 02/14/19 22:00 02/15/19 09:57 Silvadene - TP 1 applic BID [facility] Administration Impression 1. ESRD 2. change in mental status 3. resp failure requiring intubation 4. chf 5. dvt 6. anemia 7. a-fib 8. hypothyroid 9. pleural effusion Plan - will arrange for HD tomorrow - oxygen requirements are improved - discussed with family - pulm follow up - fluid restriction - monitor bp - HD right thigh cath, 3 k bath, 3 15 time, 400 abf
[2019-02-15] MEDS: NYSTATIN 100000 UNIT/GM TOPICAL OINTMENT 15 GM TUBE TP SCH ×2 (15:36→22:17)
--- NOTE | 2019-02-15 15:42 | PN ---
Progress Note, Physician Chief Complaint: Acute Respiratory Failure ESRD Hypotension NSTEMI History of Present Illness: Previous notes and events reviewed more lethargic today but awakens and verbally responsive to verbal and tactile stimuli NAD earlier today patient had episode of SOB and cough--CXR ordered STAT patient anxious, worried about her health - Current Medication List Current Medications: Active Medications Acetaminophen (Tylenol -) 650 mg PO Q4H PRN PRN Reason: PAIN LEVEL 1 - 3 Albumin Human (Albumin Human 25%) 12.5 gm IVPB Q30M [facility] Amino Acids (Prosource No Carb Liquid Pkt) 30 ml PO BID@0800,1730 [facility] Last Admin: 02/15/19 08:37 Dose: 30 ml Epoetin Memo (Epogen -) 10,000 unit IVPUSH ONCE ONE Stop: 02/16/19 14:50 Fludrocortisone Acetate (Florinef -) 0.2 mg PO DAILY [facility] Last Admin: 02/15/19 09:24 Dose: 0.2 mg Guaifenesin (Robitussin -) 10 ml PO Q6H PRN PRN Reason: COUGH Sodium Chloride (Normal Saline -) 250 mls @ 3,000 mls/hr IV PRN PRN PRN Reason: Hypotension during Dialysis Sodium Chloride (Normal Saline -) 250 mls @ 3,000 mls/hr IV PRN PRN PRN Reason: Hypotension during Dialysis Stop: 02/16/19 14:49 Insulin Aspart (Novolog Vial Sliding Scale -) 1 vial SQ ACHS [facility]; Protocol Last Admin: 02/15/19 13:00 Dose: Not Given Levothyroxine Sodium (Synthroid -) 50 mcg PO DAILY@0700 [facility] Last Admin: 02/15/19 06:24 Dose: 50 mcg Lidocaine/Prilocaine (Emla -) 1 applic TP QID PRN PRN Reason: HEMORRHOIDS Melatonin (Melatonin) 5 mg PO HS [facility] Last Admin: 02/14/19 21:44 Dose: 5 mg Midodrine (Proamatine -) 10 mg PO TID-MID [facility] Last Admin: 02/15/19 09:22 Dose: 10 mg Multivit/Ca Carb/B Cmplx/FA/Prenat (Nephro-Evert -) 1 tablet PO DAILY [facility] Last Admin: 02/15/19 09:23 Dose: 1 tablet Nystatin (Mycostatin Ointment -) 1 applic TP BID [facility] Last Admin: 02/14/19 21:44 Dose: 1 applic Ondansetron HCl (Zofran -) 4 mg PO Q6H PRN PRN Reason: NAUSEA AND/OR VOMITING Pantoprazole Sodium (Protonix -) 40 mg PO DAILY [facility] Last Admin: 02/15/19 09:53 Dose: 40 mg Rivaroxaban (Xarelto) 15 mg PO DAILY@1800 [facility] Last Admin: 02/14/19 17:22 Dose: 15 mg Sertraline HCl (Zoloft -) 50 mg PO DAILY [facility] Last Admin: 02/15/19 09:24 Dose: 50 mg Silver Sulfadiazine (Silvadene -) 1 applic TP BID [facility] Last Admin: 02/15/19 09:57 Dose: 1 applic - Objective Vital Signs: Vital Signs Temperature 98.4 F 02/15/19 13:00 Pulse Rate 85 02/15/19 13:00 Respiratory Rate 20 02/15/19 13:00 Blood Pressure 84/60 L 02/15/19 13:00 O2 Sat by Pulse Oximetry (%) 97 02/15/19 10:00 Constitutional: Yes: No Distress, Calm Eyes: Yes: Conjunctiva Clear HENT: Yes: Atraumatic Cardiovascular: Yes: Regular Rate and Rhythm Respiratory: Yes: Regular, Diminished, On Nasal O2 Gastrointestinal: Yes: Normal Bowel Sounds, Soft Musculoskeletal: Yes: Muscle Weakness Extremities: Yes: WNL Edema: Yes (upper extremities) Neurological: Yes: Alert, Oriented Psychiatric: Yes: Alert, Oriented Labs: CBC, BMP 02/15/19 07:42 02/15/19 07:42 INR, PTT INR 1.76 (0.83-1.09) H 01/27/19 05:45 Microbiology 01/29/19 12:00 Blood - Peripheral Venous Blood Culture - Final NO GROWTH AFTER 5 DAYS INCUBATION 01/29/19 12:00 Blood - Peripheral Venous Blood Culture - Final NO GROWTH AFTER 5 DAYS INCUBATION 01/26/19 23:05 Blood - Peripheral Venous Blood Culture - Final NO GROWTH AFTER 5 DAYS INCUBATION 01/26/19 23:00 Blood - Peripheral Venous Blood Culture - Final NO GROWTH AFTER 5 DAYS INCUBATION Problem List - Problems (1) Acute respiratory failure Assessment/Plan: -Pulm on board -bronchodilators -repeat CXR shows chin artifact with bibasilar pulmonary and pleural changes left greater than right -keep SpO2 >90% -O2 via VentiMask 40% -CXR STAT--if results show no acute pathology will discharge home back to SNF in AM Code(s): J96.00 - ACUTE RESPIRATORY FAILURE, UNSP W HYPOXIA OR HYPERCAPNIA Qualifiers: Respiratory failure complication: hypoxia Qualified Code(s): J96.01 - Acute respiratory failure with hypoxia (2) ESRD on hemodialysis Assessment/Plan: -Renal on board -continue with dialysis on scheduled days -monitor renal function -BUN/Cr 34.1/3.4 Code(s): N18.6 - END STAGE RENAL DISEASE; Z99.2 - DEPENDENCE ON RENAL DIALYSIS (3) Elevated troponin Assessment/Plan: -tele monitoring -NSTEMI -Cardiology on board Code(s): R74.8 - ABNORMAL LEVELS OF OTHER SERUM ENZYMES (4) Hypotension Assessment/Plan: -monitor BP -Midodrine Code(s): I95.9 - HYPOTENSION, UNSPECIFIED Qualifiers: Hypotension type: unspecified hypotension type Qualified Code(s): I95.9 - Hypotension, unspecified (5) Acute exacerbation of congestive heart failure Assessment/Plan: -tele monitoring -Cardiology on board -1L fluid restriction -daily weights Code(s): I50.9 - HEART FAILURE, UNSPECIFIED (6) Afib Assessment/Plan: -tele monitoring -Xarelto Code(s): I48.91 - UNSPECIFIED ATRIAL FIBRILLATION (7) Functional quadriplegia Assessment/Plan: -PT -fall precaution Code(s): R53.2 - FUNCTIONAL QUADRIPLEGIA (8) H/O deep venous thrombosis Assessment/Plan: -Xarelto Code(s): Z86.718 - PERSONAL HISTORY OF OTHER VENOUS THROMBOSIS AND EMBOLISM (9) Hypothyroid Assessment/Plan: -Levothyroxine Code(s): E03.9 - HYPOTHYROIDISM, UNSPECIFIED Assessment/Plan see problem list d/c home tomorrow if CXR normal
[2019-02-15] MEDS: RIVAROXABAN 15 MG TABLET PO SCH (18:08)
[2019-02-15] MEDS: busPIRone HCL 5 MG TABLET PO SCH (23:12)
[2019-02-15] MEDS: MELATONIN 5 MG TABLETS PO SCH (23:52)
[2019-02-16] MEDS: guaiFENesin 200 MG/10 ML 10 ML UNIT-DOSE CUPS PO PRN ×2 (00:54→17:50)
[2019-02-16] MEDS: INSULIN SLIDING SCALE (NOVOLOG) 1 VIAL SQ SCH ×4 (06:29→21:09)
[2019-02-16] MEDS: LEVOTHYROXINE NA 50 MCG TABLET (FP) PO SCH (06:30)
[2019-02-16] MEDS: AMINO ACIDS/PROTEIN HYDROLYS 30 ML LIQUID.PKT PO SCH ×2 (08:17→17:44)
[2019-02-16] MEDS ORDERED: SODIUM CHLORIDE 250 ML IV PRN (09:22)
[2019-02-16] MEDS: NYSTATIN 100000 UNIT/GM TOPICAL OINTMENT 15 GM TUBE TP SCH ×2 (09:33→21:09)
[2019-02-16] MEDS: MIDODRINE HCL 5 MG TABLET PO SCH ×3 (09:36→17:43)
[2019-02-16] MEDS: SERTRALINE HCL 50 MG TABLET (FP) PO SCH (09:37)
[2019-02-16] MEDS: SILVER SULFADIAZINE 1% TOP CREAM 400 GM JAR TP SCH ×2 (09:41→21:09)
[2019-02-16] MEDS ORDERED: EPOETIN ALFA 10,000 UNIT/1 ML VIAL IVPUSH ONE (10:00)
--- NOTE | 2019-02-16 10:40 | PN ---
Progress Note, [facility] - Note Progress Note: Selected Entries 02/15/19 02/15/19 02/15/19 01:00 05:00 09:00 Breakfast Lunch Supper Temperature 98.2 F 97.7 F 97.7 F 02/15/19 02/15/19 02/15/19 10:00 13:00 15:00 Breakfast 75% Lunch 50% Supper Temperature 98.4 F 98.3 F 02/15/19 02/15/19 02/15/19 17:00 18:20 23:00 Breakfast Lunch Supper 100% Temperature 98.5 F 98.5 F 02/16/19 02/16/19 02/16/19 01:00 05:00 10:10 Breakfast Lunch Supper Temperature 97.7 F 97.4 F L 98.4 F Yesterday pt c/o new nonproductive cough and some shortness of breath. No fevers. MBS deferred. Stat xray revealed no change. Pt in HD, sleeping. Continue diet as ordered. MBS, if indicated, when stable or as out pt in future to upgrade diet, as requested by pt.
[2019-02-16] MEDS: ALBUMIN HUMAN 25% 12.5 GM/50 ML VIAL IVPB SCH ×3 (10:45→13:17)
[2019-02-16 11:02] LABS: HEMATOCRIT 29.4 % (32.4-45.2); MCHC 30.6 g/dl (32.0-36.0); MEAN PLT VOLUME 8.5 fl (7.5-11.1); PLATELET COUNT 108 K/MM3 (134-434); RDW 20.7 % (11.6-15.6); WHITE BLOOD COUNT 3.9 K/mm3 (4.0-10.0)
[2019-02-16 11:25] LABS: BLOOD UREA NITROGEN 48.3 mg/dL (7-18); CALCIUM 8.3 mg/dL (8.5-10.1); CREATININE 3.8 mg/dL (0.55-1.3); POTASSIUM 4.8 mmol/L (3.5-5.1)
--- NOTE | 2019-02-16 11:38 | PN ---
Progress Note, Physician History of Present Illness: Pt seen and examined at bedside. She is tolerating HD. - Current Medication List Current Medications: Active Medications Acetaminophen (Tylenol -) 650 mg PO Q4H PRN PRN Reason: PAIN LEVEL 1 - 3 Amino Acids (Prosource No Carb Liquid Pkt) 30 ml PO BID@0800,1730 [facility] Last Admin: 02/16/19 08:17 Dose: 30 ml Buspirone HCl (Buspar -) 5 mg PO BID [facility] Last Admin: 02/15/19 23:12 Dose: 5 mg Fludrocortisone Acetate (Florinef -) 0.2 mg PO DAILY [facility] Last Admin: 02/15/19 09:24 Dose: 0.2 mg Guaifenesin (Robitussin -) 10 ml PO Q6H PRN PRN Reason: COUGH Last Admin: 02/16/19 00:54 Dose: 10 ml Sodium Chloride (Normal Saline -) 250 mls @ 3,000 mls/hr IV PRN PRN PRN Reason: Hypotension during Dialysis Insulin Aspart (Novolog Vial Sliding Scale -) 1 vial SQ ACHS [facility]; Protocol Last Admin: 02/16/19 06:29 Dose: Not Given Levothyroxine Sodium (Synthroid -) 50 mcg PO DAILY@0700 [facility] Last Admin: 02/16/19 06:30 Dose: 50 mcg Lidocaine/Prilocaine (Emla -) 1 applic TP QID PRN PRN Reason: HEMORRHOIDS Melatonin (Melatonin) 5 mg PO HS [facility] Last Admin: 02/15/19 23:52 Dose: 5 mg Midodrine (Proamatine -) 10 mg PO TID-MID [facility] Last Admin: 02/16/19 09:36 Dose: 10 mg Multivit/Ca Carb/B Cmplx/FA/Prenat (Nephro-Evert -) 1 tablet PO DAILY [facility] Last Admin: 02/15/19 09:23 Dose: 1 tablet Nystatin (Mycostatin Ointment -) 1 applic TP BID [facility] Last Admin: 02/16/19 09:33 Dose: 1 applic Ondansetron HCl (Zofran -) 4 mg PO Q6H PRN PRN Reason: NAUSEA AND/OR VOMITING Pantoprazole Sodium (Protonix -) 40 mg PO DAILY [facility] Last Admin: 02/15/19 09:53 Dose: 40 mg Rivaroxaban (Xarelto) 15 mg PO DAILY@1800 [facility] Last Admin: 02/15/19 18:08 Dose: 15 mg Sertraline HCl (Zoloft -) 50 mg PO DAILY [facility] Last Admin: 02/16/19 09:37 Dose: 50 mg Silver Sulfadiazine (Silvadene -) 1 applic TP BID [facility] Last Admin: 02/16/19 09:41 Dose: 1 applic - Objective Vital Signs: Vital Signs Temperature 98.4 F 02/16/19 10:10 Pulse Rate 106 H 02/16/19 10:15 Respiratory Rate 18 02/16/19 10:15 Blood Pressure 90/62 02/16/19 10:15 O2 Sat by Pulse Oximetry (%) 100 02/15/19 22:00 Constitutional: Yes: Calm Eyes: Yes: Conjunctiva Clear HENT: Yes: Atraumatic Neck: Yes: Supple Cardiovascular: Yes: S1, S2 Respiratory: Yes: On Nasal O2 Gastrointestinal: Yes: Soft Genitourinary: Yes: Incontinence Musculoskeletal: Yes: Muscle Weakness Edema: LUE: Trace, RUE: Trace Neurological: Yes: Oriented Psychiatric: Yes: Oriented Labs: CBC, BMP 02/16/19 10:15 02/16/19 10:15 INR, PTT INR 1.76 (0.83-1.09) H 01/27/19 05:45 Problem List - Problems (1) Acute respiratory failure Code(s): J96.00 - ACUTE RESPIRATORY FAILURE, UNSP W HYPOXIA OR HYPERCAPNIA Qualifiers: Respiratory failure complication: hypoxia Qualified Code(s): J96.01 - Acute respiratory failure with hypoxia (2) ESRD on hemodialysis Code(s): N18.6 - END STAGE RENAL DISEASE; Z99.2 - DEPENDENCE ON RENAL DIALYSIS Assessment/Plan Current Medications Generic Name Dose Route Start Last Admin Trade Name Freq PRN Reason Stop Dose Admin Acetaminophen 650 mg 02/14/19 16:13 Tylenol - PO Q4H PRN PAIN LEVEL 1 - 3 Amino Acids 30 ml 02/14/19 17:30 02/16/19 08:17 Prosource No Carb Liquid Pkt PO 30 ml BID@0800,1730 [facility] Administration Buspirone HCl 5 mg 02/15/19 22:00 02/15/19 23:12 Buspar - PO 5 mg BID [facility] Administration Fludrocortisone Acetate 0.2 mg 02/15/19 10:00 02/15/19 09:24 Florinef - PO 0.2 mg DAILY [facility] Administration Guaifenesin 10 ml 02/15/19 12:41 02/16/19 00:54 Robitussin - PO 10 ml Q6H PRN Administration COUGH Sodium Chloride 250 mls @ 3,000 mls/hr 02/14/19 16:13 Normal Saline - IV PRN PRN Hypotension during Dialysis Insulin Aspart 1 vial 02/14/19 16:30 02/16/19 06:29 Novolog Vial Sliding Scale - SQ Not Given ACHS [facility] Protocol Levothyroxine Sodium 50 mcg 02/15/19 07:00 02/16/19 06:30 Synthroid - PO 50 mcg DAILY@0700 [facility] Administration Lidocaine/Prilocaine 1 applic 02/14/19 16:13 Emla - TP QID PRN HEMORRHOIDS Melatonin 5 mg 02/14/19 22:00 02/15/19 23:52 Melatonin PO 5 mg HS [facility] Administration Midodrine 10 mg 02/14/19 18:00 02/16/19 09:36 Proamatine - PO 10 mg TID-MID [facility] Administration Multivit/Ca Carb/B Cmplx/FA/Prenat 1 tablet 02/15/19 10:00 02/15/19 09:23 Nephro-Evert - PO 1 tablet DAILY [facility] Administration Nystatin 1 applic 02/14/19 22:00 02/16/19 09:33 Mycostatin Ointment - TP 1 applic BID [facility] Administration Ondansetron HCl 4 mg 02/14/19 16:13 Zofran - PO Q6H PRN NAUSEA AND/OR VOMITING Pantoprazole Sodium 40 mg 02/15/19 10:00 02/15/19 09:53 Protonix - PO 40 mg DAILY [facility] Administration Rivaroxaban 15 mg 02/14/19 18:00 02/15/19 18:08 Xarelto PO 15 mg DAILY@1800 [facility] Administration Sertraline HCl 50 mg 02/15/19 10:00 02/16/19 09:37 Zoloft - PO 50 mg DAILY [facility] Administration Silver Sulfadiazine 1 applic 02/14/19 22:00 02/16/19 09:41 Silvadene - TP 1 applic BID [facility] Administration Impression 1. ESRD 2. change in mental status 3. resp failure requiring intubation 4. chf 5. dvt 6. anemia 7. a-fib 8. hypothyroid 9. pleural effusion Plan - pt tolerating HD - cont renal diet - cont fluid restriction - volume status is markedly improved from admission - she has not required bipap - monitor bp - HD right thigh cath, 3 k bath, 3 15 time, 400 abf
--- NOTE | 2019-02-16 11:44 | PN ---
Progress Note (short form) - Note Progress Note: s: no cp sob palps dizzy Current Medications Acetaminophen (Tylenol -) 650 mg PO Q4H PRN PRN Reason: PAIN LEVEL 1 - 3 Amino Acids (Prosource No Carb Liquid Pkt) 30 ml PO BID@0800,1730 [facility] Last Admin: 02/16/19 08:17 Dose: 30 ml Buspirone HCl (Buspar -) 5 mg PO BID [facility] Last Admin: 02/15/19 23:12 Dose: 5 mg Fludrocortisone Acetate (Florinef -) 0.2 mg PO DAILY [facility] Last Admin: 02/15/19 09:24 Dose: 0.2 mg Guaifenesin (Robitussin -) 10 ml PO Q6H PRN PRN Reason: COUGH Last Admin: 02/16/19 00:54 Dose: 10 ml Sodium Chloride (Normal Saline -) 250 mls @ 3,000 mls/hr IV PRN PRN PRN Reason: Hypotension during Dialysis Insulin Aspart (Novolog Vial Sliding Scale -) 1 vial SQ [facility]; Protocol Last Admin: 02/16/19 06:29 Dose: Not Given Levothyroxine Sodium (Synthroid -) 50 mcg PO DAILY@0700 [facility] Last Admin: 02/16/19 06:30 Dose: 50 mcg Lidocaine/Prilocaine (Emla -) 1 applic TP QID PRN PRN Reason: HEMORRHOIDS Melatonin (Melatonin) 5 mg PO HS [facility] Last Admin: 02/15/19 23:52 Dose: 5 mg Midodrine (Proamatine -) 10 mg PO TID-MID [facility] Last Admin: 02/16/19 09:36 Dose: 10 mg Multivit/Ca Carb/B Cmplx/FA/Prenat (Nephro-Evert -) 1 tablet PO DAILY [facility] Last Admin: 02/15/19 09:23 Dose: 1 tablet Nystatin (Mycostatin Ointment -) 1 applic TP BID [facility] Last Admin: 02/16/19 09:33 Dose: 1 applic Ondansetron HCl (Zofran -) 4 mg PO Q6H PRN PRN Reason: NAUSEA AND/OR VOMITING Pantoprazole Sodium (Protonix -) 40 mg PO DAILY [facility] Last Admin: 02/15/19 09:53 Dose: 40 mg Rivaroxaban (Xarelto) 15 mg PO DAILY@1800 [facility] Last Admin: 02/15/19 18:08 Dose: 15 mg Sertraline HCl (Zoloft -) 50 mg PO DAILY [facility] Last Admin: 02/16/19 09:37 Dose: 50 mg Silver Sulfadiazine (Silvadene -) 1 applic TP BID [facility] Last Admin: 02/16/19 09:41 Dose: 1 applic Allergies No Known Allergies Allergy (Unverified 01/19/19 11:43) Ambulatory Orders Acetaminophen 650 mg PO Q6H PRN 09/20/18 Ammonium Lactate Lotion [Lac-Hydrin 12] 1 applic TP BID 09/20/18 Anusol Hc Suppository - 25 mg PA Q4H PRN 09/20/18 Apixaban [Eliquis] 1 tab PO BID 09/20/18 Calcitriol [Calcitriol -] 3 cap PO TID 09/20/18 Docusate Sodium [Colace -] 3 tab PO HS 09/20/18 Lidocaine/Prilocaine Cream [Lidocaine-Prilocaine Cream -] 1 applic TP QID PRN Melatonin 1 mg PO HS 09/20/18 Midodrine HCl 10 mg PO Q8H PRN 09/20/18 Nystatin Ointment [Mycostatin Ointment -] 1 applic TP BID 09/20/18 Sertraline HCl [Zoloft -] 1 tab PO DAILY 09/20/18 Silver Sulfadiazine [Silvadene] 1 applic TP BID 09/20/18 Digoxin 62.5 mcg PO DAILY 12/08/18 Levothyroxine [Synthroid -] 25 mcg PO DAILY 12/08/18 Vitamin B Comp W-C [Nephro-Evert -] 0.8 mg PO DAILY 12/08/18 Acetaminophen [Tylenol .Regular Strength -] 650 mg PO Q4H PRN tablet 02/09/19 Amino Acids/Protein Hydrolys [Prosource No Carb Liquid Pkt] 30 ml PO BID@0800, 1730 packet 02/09/19 Collagenase Clostridium Hist. [Santyl -] 1 applic TP DAILY tube 02/09/19 Insulin Sliding Scale [Novolog Vial Sliding Scale -] 1 vial SQ ACHS units 02/09 Levothyroxine [Synthroid -] 50 mcg PO DAILY@0700 tablet 02/09/19 Lidocaine/Prilocaine Cream [Lidocaine-Prilocaine Cream -] 1 applic TP QID PRN applic 02/09/19 Melatonin 10 mg PO HS tab 02/09/19 Ondansetron [Zofran -] 4 mg PO Q6H PRN tablet 02/09/19 Rivaroxaban [Xarelto] 15 mg PO DAILY@1800 tablet 02/09/19 Sertraline HCl [Zoloft -] 50 mg PO DAILY tablet 02/09/19 Silver Sulfadiazine 1% Top Cr [Silvadene -] 1 applic TP BID jar 02/09/19 Vitamin B Comp W-C [Nephro-Evert -] 1 tablet PO DAILY tablet 02/09/19 Intake & Output 02/14/19 02/15/19 02/16/19 23:59 23:59 23:59 Intake Total 850 450 200 Output Total 3150 0 Balance -2300 450 200 Weight 183 lb 10.321 oz 184 lb 12.8 oz Medications Acetaminophen (Tylenol -) 650 mg PO Q4H PRN PRN Reason: PAIN LEVEL 1 - 3 Amino Acids (Prosource No Carb Liquid Pkt) 30 ml PO BID@0800,1730 [facility] Last Admin: 02/16/19 08:17 Dose: 30 ml Buspirone HCl (Buspar -) 5 mg PO BID [facility] Last Admin: 02/15/19 23:12 Dose: 5 mg Fludrocortisone Acetate (Florinef -) 0.2 mg PO DAILY [facility] Last Admin: 02/15/19 09:24 Dose: 0.2 mg Guaifenesin (Robitussin -) 10 ml PO Q6H PRN PRN Reason: COUGH Last Admin: 02/16/19 00:54 Dose: 10 ml Sodium Chloride (Normal Saline -) 250 mls @ 3,000 mls/hr IV PRN PRN PRN Reason: Hypotension during Dialysis Insulin Aspart (Novolog Vial Sliding Scale -) 1 vial SQ ACHS [facility]; Protocol Last Admin: 02/16/19 06:29 Dose: Not Given Levothyroxine Sodium (Synthroid -) 50 mcg PO DAILY@0700 [facility] Last Admin: 02/16/19 06:30 Dose: 50 mcg Lidocaine/Prilocaine (Emla -) 1 applic TP QID PRN PRN Reason: HEMORRHOIDS Melatonin (Melatonin) 5 mg PO HS [facility] Last Admin: 02/15/19 23:52 Dose: 5 mg Midodrine (Proamatine -) 10 mg PO TID-MID [facility] Last Admin: 02/16/19 09:36 Dose: 10 mg Multivit/Ca Carb/B Cmplx/FA/Prenat (Nephro-Evert -) 1 tablet PO DAILY [facility] Last Admin: 02/15/19 09:23 Dose: 1 tablet Nystatin (Mycostatin Ointment -) 1 applic TP BID [facility] Last Admin: 02/16/19 09:33 Dose: 1 applic Ondansetron HCl (Zofran -) 4 mg PO Q6H PRN PRN Reason: NAUSEA AND/OR VOMITING Pantoprazole Sodium (Protonix -) 40 mg PO DAILY [facility] Last Admin: 02/15/19 09:53 Dose: 40 mg Rivaroxaban (Xarelto) 15 mg PO DAILY@1800 [facility] Last Admin: 02/15/19 18:08 Dose: 15 mg Sertraline HCl (Zoloft -) 50 mg PO DAILY [facility] Last Admin: 02/16/19 09:37 Dose: 50 mg Silver Sulfadiazine (Silvadene -) 1 applic TP BID [facility] Last Admin: 02/16/19 09:41 Dose: 1 applic Orders 02/16/19 09:14 Dialysis Machine Routine (1) Problems Acute respiratory failure (Acute) ESRD on hemodialysis (Acute) Elevated troponin (Acute) Hand swelling (Acute) Hypotension (Acute) Vital Signs 02/15/19 02/15/19 02/15/19 13:00 15:00 17:00 Temperature 98.4 F 98.3 F 98.5 F Pulse Rate 85 95 H 96 H Respiratory 20 20 20 Rate Blood Pressure 84/60 L 102/71 103/65 O2 Sat by Pulse Oximetry (%) 02/15/19 02/15/19 02/15/19 21:00 22:00 23:00 Temperature 98.5 F Pulse Rate 97 H 92 H Respiratory 22 H 20 Rate Blood Pressure 110/59 L 108/54 L O2 Sat by Pulse 100 100 Oximetry (%) 02/16/19 02/16/19 02/16/19 01:00 05:00 10:10 Temperature 97.7 F 97.4 F L 98.4 F Pulse Rate 79 115 H 111 H Respiratory 20 20 18 Rate Blood Pressure 127/50 L 91/57 L 128/76 O2 Sat by Pulse Oximetry (%) 02/16/19 02/16/19 02/16/19 10:15 10:45 11:15 Temperature Pulse Rate 106 H 99 H 109 H Respiratory 18 18 18 Rate Blood Pressure 90/62 79/56 L 90/55 L O2 Sat by Pulse Oximetry (%) Current Medications Acetaminophen (Tylenol -) 650 mg PO Q4H PRN PRN Reason: PAIN LEVEL 1 - 3 Amino Acids (Prosource No Carb Liquid Pkt) 30 ml PO BID@0800,1730 [facility] Last Admin: 02/16/19 08:17 Dose: 30 ml Buspirone HCl (Buspar -) 5 mg PO BID [facility] Last Admin: 02/15/19 23:12 Dose: 5 mg Fludrocortisone Acetate (Florinef -) 0.2 mg PO DAILY [facility] Last Admin: 02/15/19 09:24 Dose: 0.2 mg Guaifenesin (Robitussin -) 10 ml PO Q6H PRN PRN Reason: COUGH Last Admin: 02/16/19 00:54 Dose: 10 ml Sodium Chloride (Normal Saline -) 250 mls @ 3,000 mls/hr IV PRN PRN PRN Reason: Hypotension during Dialysis Insulin Aspart (Novolog Vial Sliding Scale -) 1 vial SQ ACHS [facility]; Protocol Last Admin: 02/16/19 06:29 Dose: Not Given Levothyroxine Sodium (Synthroid -) 50 mcg PO DAILY@0700 [facility] Last Admin: 02/16/19 06:30 Dose: 50 mcg Lidocaine/Prilocaine (Emla -) 1 applic TP QID PRN PRN Reason: HEMORRHOIDS Melatonin (Melatonin) 5 mg PO HS [facility] Last Admin: 02/15/19 23:52 Dose: 5 mg Midodrine (Proamatine -) 10 mg PO TID-MID [facility] Last Admin: 02/16/19 09:36 Dose: 10 mg Multivit/Ca Carb/B Cmplx/FA/Prenat (Nephro-Evert -) 1 tablet PO DAILY [facility] Last Admin: 02/15/19 09:23 Dose: 1 tablet Nystatin (Mycostatin Ointment -) 1 applic TP BID [facility] Last Admin: 02/16/19 09:33 Dose: 1 applic Ondansetron HCl (Zofran -) 4 mg PO Q6H PRN PRN Reason: NAUSEA AND/OR VOMITING Pantoprazole Sodium (Protonix -) 40 mg PO DAILY [facility] Last Admin: 02/15/19 09:53 Dose: 40 mg Rivaroxaban (Xarelto) 15 mg PO DAILY@1800 [facility] Last Admin: 02/15/19 18:08 Dose: 15 mg Sertraline HCl (Zoloft -) 50 mg PO DAILY [facility] Last Admin: 02/16/19 09:37 Dose: 50 mg Silver Sulfadiazine (Silvadene -) 1 applic TP BID [facility] Last Admin: 02/16/19 09:41 Dose: 1 applic Constitutional: Yes: No Distress, Calm, Obese Cardiovascular: Yes: Pulse Irregular, S1, S2. No: JVD (prohibitive tds phys exam), Gallop, Murmur Respiratory: Yes: Regular, CTA Bilaterally nl eff. No: Accessory Muscle Use Extremities: No: Cold Edema: No Neurological: awake, alert appropriate Psychiatric: No: Agitated no jaundice, diaphoresis Assessment/Plan Echo 12/01: nl LV function, RV mod to severely dilated, RV function mod to severely reduced, mod dilated LA/RA, RVSP 40-50 mmHg, mod TR Echo 01/2019 - LV function slightly worsened, 45-50%, LA mod dilated, RV mod to severely dilated, tr AR, RV function mod to severely reduced, mild MR, mild to mod TR, RA mod to severely dilated, mobile echodensity in pleural space tele: sr IMP: -Acute on chronic hypoxic/hypercapneic respiratory failure at HD, with bradycardia (40s-50s) -possible RLL PNA, sepsis -NSTEMI (troponin to 2): most likely Type II secondary to acute strain from CHF/ pulm HTN and acute resp failure, vs sec to hypotension at time of arrest. -septic shock on Levophed, doubt cardiogenic shock here -HFpEF, pulmonary HTN, RV dysfunction -ESRD on HD -h/o DVT /PE on AC REC: - on midorine and florinef, bp stable -repeat echo with LV function slightly worsened compared to prior, RV function is mod to severely reduced (stable) -HD as per renal for volume management -Cont xarelto (anemia, PLTs stable) -hold AVN blockers --> HRs ok -will defer ischemia evaluation as this will not [employer] position [employer]. She is at prohibitive risk for invasive tx strategy given extremely poor functional status with severe comorbidities at present. Will not tolerate signif b-blockade , though will try to give low dose if can tolerate, once she is off pressors. -no ASA for now given pt on Xarelto with mild anemia/thrombocytopenia (and likely dysfunctional PLTs in HD pt), and hi risk for bleeding at present
--- NOTE | 2019-02-16 13:21 | PN ---
Progress Note, Physician History of Present Illness: PULMONARY ALERT,ON HEMODIALYSIS,SOB IMPROVING,+COUGH,-CP - Current Medication List Current Medications: Active Medications Acetaminophen (Tylenol -) 650 mg PO Q4H PRN PRN Reason: PAIN LEVEL 1 - 3 Amino Acids (Prosource No Carb Liquid Pkt) 30 ml PO BID@0800,1730 [facility] Last Admin: 02/16/19 08:17 Dose: 30 ml Buspirone HCl (Buspar -) 5 mg PO BID [facility] Last Admin: 02/15/19 23:12 Dose: 5 mg Fludrocortisone Acetate (Florinef -) 0.2 mg PO DAILY [facility] Last Admin: 02/15/19 09:24 Dose: 0.2 mg Guaifenesin (Robitussin -) 10 ml PO Q6H PRN PRN Reason: COUGH Last Admin: 02/16/19 00:54 Dose: 10 ml Sodium Chloride (Normal Saline -) 250 mls @ 3,000 mls/hr IV PRN PRN PRN Reason: Hypotension during Dialysis Insulin Aspart (Novolog Vial Sliding Scale -) 1 vial SQ ACHS [facility]; Protocol Last Admin: 02/16/19 06:29 Dose: Not Given Levothyroxine Sodium (Synthroid -) 50 mcg PO DAILY@0700 [facility] Last Admin: 02/16/19 06:30 Dose: 50 mcg Lidocaine/Prilocaine (Emla -) 1 applic TP QID PRN PRN Reason: HEMORRHOIDS Melatonin (Melatonin) 5 mg PO HS [facility] Last Admin: 02/15/19 23:52 Dose: 5 mg Midodrine (Proamatine -) 10 mg PO TID-MID [facility] Last Admin: 02/16/19 09:36 Dose: 10 mg Multivit/Ca Carb/B Cmplx/FA/Prenat (Nephro-Evret -) 1 tablet PO DAILY [facility] Last Admin: 02/15/19 09:23 Dose: 1 tablet Nystatin (Mycostatin Ointment -) 1 applic TP BID [facility] Last Admin: 02/16/19 09:33 Dose: 1 applic Ondansetron HCl (Zofran -) 4 mg PO Q6H PRN PRN Reason: NAUSEA AND/OR VOMITING Pantoprazole Sodium (Protonix -) 40 mg PO DAILY [facility] Last Admin: 02/15/19 09:53 Dose: 40 mg Rivaroxaban (Xarelto) 15 mg PO DAILY@1800 [facility] Last Admin: 02/15/19 18:08 Dose: 15 mg Sertraline HCl (Zoloft -) 50 mg PO DAILY [facility] Last Admin: 02/16/19 09:37 Dose: 50 mg Silver Sulfadiazine (Silvadene -) 1 applic TP BID [facility] Last Admin: 02/16/19 09:41 Dose: 1 applic - Objective Vital Signs: Vital Signs Temperature 98.4 F 02/16/19 10:10 Pulse Rate 116 H 02/16/19 12:45 Respiratory Rate 18 02/16/19 12:45 Blood Pressure 137/72 02/16/19 12:45 O2 Sat by Pulse Oximetry (%) 100 02/15/19 22:00 Constitutional: Yes: Well Nourished, Calm, Other (mildy tachypneic when speaking ) Eyes: Yes: WNL HENT: Yes: WNL Neck: Yes: WNL Cardiovascular: Yes: Pulse Irregular, S1, S2 Respiratory: Yes: Diminished Gastrointestinal: Yes: Normal Bowel Sounds, Soft Labs: CBC, BMP 02/16/19 10:15 02/16/19 10:15 INR, PTT INR 1.76 (0.83-1.09) H 01/27/19 05:45 Problem List - Problems (1) Acute respiratory failure Code(s): J96.00 - ACUTE RESPIRATORY FAILURE, UNSP W HYPOXIA OR HYPERCAPNIA Qualifiers: Respiratory failure complication: hypoxia Qualified Code(s): J96.01 - Acute respiratory failure with hypoxia (2) ESRD on hemodialysis Code(s): N18.6 - END STAGE RENAL DISEASE; Z99.2 - DEPENDENCE ON RENAL DIALYSIS (3) Acute exacerbation of congestive heart failure Code(s): I50.9 - HEART FAILURE, UNSPECIFIED (4) Acute on chronic respiratory failure with hypoxia and hypercapnia Code(s): J96.21 - ACUTE AND CHRONIC RESPIRATORY FAILURE WITH HYPOXIA; J96.22 - ACUTE AND CHRONIC RESPIRATORY FAILURE WITH HYPERCAPNIA (5) Afib Code(s): I48.91 - UNSPECIFIED ATRIAL FIBRILLATION (6) Functional quadriplegia Code(s): R53.2 - FUNCTIONAL QUADRIPLEGIA (7) H/O deep venous thrombosis Code(s): Z86.718 - PERSONAL HISTORY OF OTHER VENOUS THROMBOSIS AND EMBOLISM (8) Shortness of breath Code(s): R06.02 - SHORTNESS OF BREATH Assessment/Plan A/P Acute on Chronic Hypoxic and Hypercapneic Respiratory Failure improving r/o Pneumonia Shock likely Septic improving r/o Autonomic Dysfunction Volume Overload ESRD on HD +Troponins likely Demand Ischemia Pulmonary HTN h/o PE/DVT - completed antibiotics - continue midodrine, florinef - HD per renal with ultrafiltration - taper FiO2 to keep SpO2 >90% - continue anticoagulation - aspiration precautions - DVT/GI prophylaxis - Inhaled bronchodilators DR TURPIN
[2019-02-16] MEDS: FLUDROCORTISONE ACETATE 0.1 MG TABLET (FP) PO SCH (14:03)
[2019-02-16] MEDS: busPIRone HCL 5 MG TABLET PO SCH ×2 (14:05→21:08)
[2019-02-16] MEDS ORDERED: PT OWN MED DRAWER 7, Y5N ONE ×3 (14:09→17:57)
[2019-02-16] MEDS: PANTOPRAZOLE 40 MG TABLET (FP) PO SCH (14:11)
[2019-02-16] MEDS: VITAMIN B COMP W-C 1 EA TABLET PO SCH (14:19)
[2019-02-16] MEDS ORDERED: ALBUMIN HUMAN 25% 12.5 GM/50 ML VIAL IVPB SCH (15:00)
--- NOTE | 2019-02-16 16:44 | DS ---
Physical Examination Vital Signs: Vital Signs Temperature 97.4 F L 02/16/19 13:00 Pulse Rate 84 02/16/19 13:35 Respiratory Rate 18 02/16/19 13:35 Blood Pressure 142/83 02/16/19 13:35 O2 Sat by Pulse Oximetry (%) 100 02/16/19 09:00 Constitutional: Yes: No Distress, Anxious, Obese Eyes: Yes: Conjunctiva Clear HENT: Yes: Atraumatic Cardiovascular: Yes: Pulse Irregular Respiratory: Yes: Regular, Diminished, On Nasal O2 Gastrointestinal: Yes: Normal Bowel Sounds, Soft, Abdomen, Obese Musculoskeletal: Yes: Muscle Weakness Extremities: Yes: WNL Edema: Yes (b/l upper extremity) Neurological: Yes: Alert, Confusion (periods of confusion), Weakness Psychiatric: Yes: Alert Labs: CBC, BMP 02/16/19 10:15 02/16/19 10:15 Discharge Summary Reason For Visit: END STAGE RENAL DISEASE ON HEMODIALYSIS, ACUTE Current Active Problems Acute respiratory failure (Acute) ESRD on hemodialysis (Acute) Elevated troponin (Acute) Hand swelling (Acute) Hypotension (Acute) Hospital Course: Patient is a 73 y/o female with past medical history of ESRD on HD, afib, hypothyroidism. Patient presented to ER from HD when she was unresponsive for 5 min. Patient was intubated in field y EMS and given norepeinephrine. Patient was admitted to ICU and treated for Septic Shock and RLL PNA. Patient was eventually extubated and maintained pressures on own without Levophed. Completed IV antibioitc course. Condition: Stable - Instructions Diet, Activity, Other Instructions: Follow up with PMD follow up with Personal Lines Account Manager Dr Bullard follow up with Nephrology Dr Molina continue with dialysis on scheduled days continue with medication as prescribed return to ER if develop severe pain, respiratory distress, chest pain, altered mental status Referrals: Phillip Bullard MD [Staff Physician] - Tyrone Crump MD [Staff Physician] - Roxanne Molina MD [Staff Physician] - Disposition[facility] - Home Medications Comprehensive Discharge Medication List: Ambulatory Orders Acetaminophen 650 mg PO Q6H PRN 09/20/18 Ammonium Lactate Lotion [Lac-Hydrin 12] 1 applic TP BID 09/20/18 Anusol Hc Suppository - 25 mg AL Q4H PRN 09/20/18 Apixaban [Eliquis] 1 tab PO BID 09/20/18 Calcitriol [Calcitriol -] 3 cap PO TID 09/20/18 Docusate Sodium [Colace -] 3 tab PO HS 09/20/18 Lidocaine/Prilocaine Cream [Lidocaine-Prilocaine Cream -] 1 applic TP QID PRN Melatonin 1 mg PO HS 09/20/18 Midodrine HCl 10 mg PO Q8H PRN 09/20/18 Nystatin Ointment [Mycostatin Ointment -] 1 applic TP BID 09/20/18 Sertraline HCl [Zoloft -] 1 tab PO DAILY 09/20/18 Silver Sulfadiazine [Silvadene] 1 applic TP BID 09/20/18 Digoxin 62.5 mcg PO DAILY 12/08/18 Levothyroxine [Synthroid -] 25 mcg PO DAILY 12/08/18 Vitamin B Comp W-C [Nephro-Evert -] 0.8 mg PO DAILY 12/08/18 Acetaminophen [Tylenol .Regular Strength -] 650 mg PO Q4H PRN tablet 02/09/19 Amino Acids/Protein Hydrolys [Prosource No Carb Liquid Pkt] 30 ml PO BID@0800, 1730 packet 02/09/19 Collagenase Clostridium Hist. [Santyl -] 1 applic TP DAILY tube 02/09/19 Insulin Sliding Scale [Novolog Vial Sliding Scale -] 1 vial SQ ACHS units 02/09 Levothyroxine [Synthroid -] 50 mcg PO DAILY@0700 tablet 02/09/19 Lidocaine/Prilocaine Cream [Lidocaine-Prilocaine Cream -] 1 applic TP QID PRN applic 02/09/19 Melatonin 10 mg PO HS tab 02/09/19 Ondansetron [Zofran -] 4 mg PO Q6H PRN tablet 02/09/19 Rivaroxaban [Xarelto] 15 mg PO DAILY@1800 tablet 02/09/19 Sertraline HCl [Zoloft -] 50 mg PO DAILY tablet 02/09/19 Silver Sulfadiazine 1% Top Cr [Silvadene -] 1 applic TP BID jar 02/09/19 Vitamin B Comp W-C [Nephro-Evert -] 1 tablet PO DAILY tablet 02/09/19 Amino Acids/Protein Hydrolys [Prosource No Carb Liquid Pkt] 30 ml PO BID@0800, 1730 packet 02/16/19 Buspirone HCl [Buspar -] 5 mg PO BID tablet 02/16/19 Fludrocortisone Acetate [Florinef -] 0.2 mg PO DAILY tablet 02/16/19 Guaifenesin [Robitussin -] 10 ml PO Q6H PRN cup 02/16/19 Insulin Sliding Scale [Novolog Vial Sliding Scale -] 1 vial SQ ACHS units 02/16 Levalbuterol HCl [Xopenex] 0.31 mg IH Q8H PRN vial.neb 02/16/19 Levothyroxine [Synthroid -] 50 mcg PO DAILY@0700 tablet 02/16/19 Lidocaine/Prilocaine Cream [Lidocaine-Prilocaine Cream -] 1 applic TP QID PRN applic 02/16/19 Melatonin 5 mg PO HS tab 02/16/19 Pantoprazole Sodium [Protonix -] 40 mg PO DAILY tablet.ec 02/16/19 Rivaroxaban [Xarelto] 15 mg PO DAILY@1800 tablet 02/16/19 Sertraline HCl [Zoloft -] 50 mg PO DAILY tablet 02/16/19 Silver Sulfadiazine 1% Top Cr [Silvadene -] 1 applic TP BID jar 02/16/19 Vitamin B Comp W-C [Nephro-Evert -] 1 tablet PO DAILY tablet 02/16/19
[2019-02-16] MEDS: RIVAROXABAN 15 MG TABLET PO SCH (17:43)
[2019-02-16] MEDS ORDERED: INSULIN (NOVOLOG) ASPART 100 UNITS/ML 10ML VIAL ONE (20:45)
[2019-02-16] MEDS: MELATONIN 5 MG TABLETS PO SCH (21:08)
[2019-02-16] MEDS: LEVALBUTEROL HCL 0.31 MG/3 ML VIAL.NEB IH PRN (21:54)
[2019-02-17] MEDS: guaiFENesin 200 MG/10 ML 10 ML UNIT-DOSE CUPS PO PRN (02:53)
[2019-02-17] MEDS: INSULIN SLIDING SCALE (NOVOLOG) 1 VIAL SQ SCH ×3 (06:27→17:45)
[2019-02-17] MEDS: LEVOTHYROXINE NA 50 MCG TABLET (FP) PO SCH (06:27)
[2019-02-17] MEDS ORDERED: PT OWN MED DRAWER 7, Y5N ONE (09:59)
[2019-02-17] MEDS: AMINO ACIDS/PROTEIN HYDROLYS 30 ML LIQUID.PKT PO SCH ×2 (10:04→18:24)
[2019-02-17] MEDS: SERTRALINE HCL 50 MG TABLET (FP) PO SCH (10:04)
[2019-02-17] MEDS: VITAMIN B COMP W-C 1 EA TABLET PO SCH (10:04)
[2019-02-17] MEDS: MIDODRINE HCL 5 MG TABLET PO SCH ×3 (10:04→18:24)
[2019-02-17] MEDS: PANTOPRAZOLE 40 MG TABLET (FP) PO SCH (10:04)
[2019-02-17] MEDS: SILVER SULFADIAZINE 1% TOP CREAM 400 GM JAR TP SCH (10:05)
[2019-02-17] MEDS: busPIRone HCL 5 MG TABLET PO SCH (10:05)
[2019-02-17] MEDS: FLUDROCORTISONE ACETATE 0.1 MG TABLET (FP) PO SCH (10:06)
[2019-02-17] MEDS: NYSTATIN 100000 UNIT/GM TOPICAL OINTMENT 15 GM TUBE TP SCH (10:06)
--- NOTE | 2019-02-17 12:01 | PN ---
Progress Note (short form) - Note Progress Note: s: denies cp sob palps dizzy Current Medications Generic Name Dose Route Start Last Admin Trade Name Freq PRN Reason Stop Dose Admin Acetaminophen 650 mg 02/14/19 16:13 02/16/19 21:08 Tylenol - PO 650 mg Q4H PRN Administration PAIN LEVEL 1 - 3 Amino Acids 30 ml 02/14/19 17:30 02/17/19 10:04 Prosource No Carb Liquid Pkt PO 30 ml BID@0800,1730 [facility] Administration Buspirone HCl 5 mg 02/15/19 22:00 02/17/19 10:05 Buspar - PO 5 mg BID [facility] Administration Fludrocortisone Acetate 0.2 mg 02/15/19 10:00 02/17/19 10:06 Florinef - PO 0.2 mg DAILY [facility] Administration Guaifenesin 10 ml 02/15/19 12:41 02/17/19 02:53 Robitussin - PO 10 ml Q6H PRN Administration COUGH Sodium Chloride 250 mls @ 3,000 mls/hr 02/14/19 16:13 Normal Saline - IV PRN PRN Hypotension during Dialysis Insulin Aspart 1 vial 02/14/19 16:30 02/17/19 06:27 Novolog Vial Sliding Scale - SQ Not Given ACHS [facility] Protocol Levalbuterol HCl 0.31 mg 02/16/19 13:24 02/16/19 21:54 Xopenex IH 0.31 mg Q8H PRN Administration ASTHMA Levothyroxine Sodium 50 mcg 02/15/19 07:00 02/17/19 06:27 Synthroid - PO 50 mcg DAILY@0700 [facility] Administration Lidocaine/Prilocaine 1 applic 02/14/19 16:13 Emla - TP QID PRN HEMORRHOIDS Melatonin 5 mg 02/14/19 22:00 02/16/19 21:08 Melatonin PO 5 mg HS [facility] Administration Midodrine 10 mg 02/14/19 18:00 02/17/19 10:04 Proamatine - PO 10 mg TID-MID [facility] Administration Multivit/Ca Carb/B Cmplx/FA/Prenat 1 tablet 02/15/19 10:00 02/17/19 10:04 Nephro-Evert - PO 1 tablet DAILY [facility] Administration Nystatin 1 applic 02/14/19 22:00 02/17/19 10:06 Mycostatin Ointment - TP 1 applic BID [facility] Administration Ondansetron HCl 4 mg 02/14/19 16:13 Zofran - PO Q6H PRN NAUSEA AND/OR VOMITING Pantoprazole Sodium 40 mg 02/15/19 10:00 02/17/19 10:04 Protonix - PO 40 mg DAILY [facility] Administration Rivaroxaban 15 mg 02/14/19 18:00 02/16/19 17:43 Xarelto PO 15 mg DAILY@1800 [facility] Administration Sertraline HCl 50 mg 02/15/19 10:00 02/17/19 10:04 Zoloft - PO 50 mg DAILY [facility] Administration Silver Sulfadiazine 1 applic 02/14/19 22:00 02/17/19 10:05 Silvadene - TP 1 applic BID [facility] Administration Vital Signs Period Temp Pulse Resp BP Sys/Jhaveri Pulse Ox Last 24 Hr 97.4 F-97.6 F 73-116 18-22 109-142/46-83 100 Constitutional: Yes: No Distress, Calm, Obese Cardiovascular: Yes: Pulse Irregular, S1, S2. No: JVD (prohibitive tds phys exam), Gallop, Murmur Respiratory: Yes: Regular, CTA Bilaterally nl eff. No: Accessory Muscle Use Extremities: No: Cold Edema: No Neurological: awake, alert appropriate Psychiatric: No: Agitated no jaundice, diaphoresis CBC, BMP 02/16/19 10:15 02/16/19 10:15 Assessment/Plan Echo 12/01: nl LV function, RV mod to severely dilated, RV function mod to severely reduced, mod dilated LA/RA, RVSP 40-50 mmHg, mod TR Echo 01/2019 - LV function slightly worsened, 45-50%, LA mod dilated, RV mod to severely dilated, tr AR, RV function mod to severely reduced, mild MR, mild to mod TR, RA mod to severely dilated, mobile echodensity in pleural space IMP: -Acute on chronic hypoxic/hypercapneic respiratory failure at HD, with bradycardia (40s-50s) -possible RLL PNA, sepsis -NSTEMI (troponin to 2): most likely Type II secondary to acute strain from CHF/ pulm HTN and acute resp failure, vs sec to hypotension at time of arrest. 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 She is at prohibitive risk for invasive tx strategy given extremely poor functional status with severe comorbidities at present. Will not tolerate signif b-blockade , though will try to give low dose if can tolerate, once she is off pressors. -no ASA for now given pt on Xarelto with mild anemia/thrombocytopenia (and likely dysfunctional PLTs in HD pt), and hi risk for bleeding at present
[2019-02-17] MEDS: LEVALBUTEROL HCL 0.31 MG/3 ML VIAL.NEB IH PRN (12:20)
--- NOTE | 2019-02-17 12:41 | PN ---
Progress Note, Physician Chief Complaint: Acute Respiratory Failure ESRD Hypotension NSTEMI History of Present Illness: Previous notes and events reviewed awake and alert NAD pt sts she has difficulty breathing patient to be discharged back to SNF today, CXR STAT ordered if neg will d/c back t SNF - Current Medication List Current Medications: Active Medications Acetaminophen (Tylenol -) 650 mg PO Q4H PRN PRN Reason: PAIN LEVEL 1 - 3 Last Admin: 02/16/19 21:08 Dose: 650 mg Amino Acids (Prosource No Carb Liquid Pkt) 30 ml PO BID@0800,1730 [facility] Last Admin: 02/17/19 10:04 Dose: 30 ml Buspirone HCl (Buspar -) 5 mg PO BID [facility] Last Admin: 02/17/19 10:05 Dose: 5 mg Fludrocortisone Acetate (Florinef -) 0.2 mg PO DAILY [facility] Last Admin: 02/17/19 10:06 Dose: 0.2 mg Guaifenesin (Robitussin -) 10 ml PO Q6H PRN PRN Reason: COUGH Last Admin: 02/17/19 02:53 Dose: 10 ml Sodium Chloride (Normal Saline -) 250 mls @ 3,000 mls/hr IV PRN PRN PRN Reason: Hypotension during Dialysis Insulin Aspart (Novolog Vial Sliding Scale -) 1 vial SQ ACHS [facility]; Protocol Last Admin: 02/17/19 12:03 Dose: Not Given Levalbuterol HCl (Xopenex) 0.31 mg IH Q8H PRN PRN Reason: ASTHMA Last Admin: 02/16/19 21:54 Dose: 0.31 mg Levothyroxine Sodium (Synthroid -) 50 mcg PO DAILY@0700 [facility] Last Admin: 02/17/19 06:27 Dose: 50 mcg Lidocaine/Prilocaine (Emla -) 1 applic TP QID PRN PRN Reason: HEMORRHOIDS Melatonin (Melatonin) 5 mg PO HS [facility] Last Admin: 02/16/19 21:08 Dose: 5 mg Midodrine (Proamatine -) 10 mg PO TID-MID [facility] Last Admin: 02/17/19 10:04 Dose: 10 mg Multivit/Ca Carb/B Cmplx/FA/Prenat (Nephro-Evert -) 1 tablet PO DAILY [facility] Last Admin: 02/17/19 10:04 Dose: 1 tablet Nystatin (Mycostatin Ointment -) 1 applic TP BID [facility] Last Admin: 02/17/19 10:06 Dose: 1 applic Ondansetron HCl (Zofran -) 4 mg PO Q6H PRN PRN Reason: NAUSEA AND/OR VOMITING Pantoprazole Sodium (Protonix -) 40 mg PO DAILY [facility] Last Admin: 02/17/19 10:04 Dose: 40 mg Rivaroxaban (Xarelto) 15 mg PO DAILY@1800 [facility] Last Admin: 02/16/19 17:43 Dose: 15 mg Sertraline HCl (Zoloft -) 50 mg PO DAILY [facility] Last Admin: 02/17/19 10:04 Dose: 50 mg Silver Sulfadiazine (Silvadene -) 1 applic TP BID [facility] Last Admin: 02/17/19 10:05 Dose: 1 applic - Objective Vital Signs: Vital Signs Temperature 97.5 F L 02/17/19 10:00 Pulse Rate 86 02/17/19 10:00 Respiratory Rate 22 H 02/17/19 10:00 Blood Pressure 123/59 L 02/17/19 10:00 O2 Sat by Pulse Oximetry (%) 100 02/16/19 21:00 Constitutional: Yes: No Distress, Calm Eyes: Yes: Conjunctiva Clear HENT: Yes: Atraumatic Cardiovascular: Yes: Regular Rate and Rhythm Respiratory: Yes: Regular, Diminished, On Nasal O2 Gastrointestinal: Yes: Normal Bowel Sounds, Soft, Abdomen, Obese Genitourinary: Yes: Incontinence Musculoskeletal: Yes: Muscle Weakness Extremities: Yes: WNL Edema: Yes (upper extremities) Neurological: Yes: Alert, Pre-Existing Deficit Psychiatric: Yes: Alert, Oriented Labs: CBC, BMP 02/16/19 10:15 02/16/19 10:15 INR, PTT INR 1.76 (0.83-1.09) H 01/27/19 05:45 Microbiology 01/29/19 12:00 Blood - Peripheral Venous Blood Culture - Final NO GROWTH AFTER 5 DAYS INCUBATION 01/29/19 12:00 Blood - Peripheral Venous Blood Culture - Final NO GROWTH AFTER 5 DAYS INCUBATION 01/26/19 23:05 Blood - Peripheral Venous Blood Culture - Final NO GROWTH AFTER 5 DAYS INCUBATION 01/26/19 23:00 Blood - Peripheral Venous Blood Culture - Final NO GROWTH AFTER 5 DAYS INCUBATION Problem List - Problems (1) Acute respiratory failure Assessment/Plan: -Pulm on board -bronchodilators -repeat CXR shows chin artifact with bibasilar pulmonary and pleural changes left greater than right -keep SpO2 >90% -O2 via VentiMask 40% -CXR STAT--if results show no acute pathology will discharge home back to SNF in AM Code(s): J96.00 - ACUTE RESPIRATORY FAILURE, UNSP W HYPOXIA OR HYPERCAPNIA Qualifiers: Respiratory failure complication: hypoxia Qualified Code(s): J96.01 - Acute respiratory failure with hypoxia (2) ESRD on hemodialysis Assessment/Plan: -Renal on board -continue with dialysis on scheduled days -monitor renal function -BUN/Cr 34.1/3.4 Code(s): N18.6 - END STAGE RENAL DISEASE; Z99.2 - DEPENDENCE ON RENAL DIALYSIS (3) Elevated troponin Assessment/Plan: -tele monitoring -NSTEMI -Cardiology on board Code(s): R74.8 - ABNORMAL LEVELS OF OTHER SERUM ENZYMES (4) Hypotension Assessment/Plan: -monitor BP -Midodrine Code(s): I95.9 - HYPOTENSION, UNSPECIFIED Qualifiers: Hypotension type: unspecified hypotension type Qualified Code(s): I95.9 - Hypotension, unspecified (5) Acute exacerbation of congestive heart failure Assessment/Plan: -tele monitoring -Cardiology on board -1L fluid restriction -daily weights Code(s): I50.9 - HEART FAILURE, UNSPECIFIED (6) Afib Assessment/Plan: -tele monitoring -Xarelto Code(s): I48.91 - UNSPECIFIED ATRIAL FIBRILLATION (7) Functional quadriplegia Assessment/Plan: -PT -fall precaution Code(s): R53.2 - FUNCTIONAL QUADRIPLEGIA (8) H/O deep venous thrombosis Assessment/Plan: -Xarelto Code(s): Z86.718 - PERSONAL HISTORY OF OTHER VENOUS THROMBOSIS AND EMBOLISM (9) Hypothyroid Assessment/Plan: -Levothyroxine Code(s): E03.9 - HYPOTHYROIDISM, UNSPECIFIED Assessment/Plan see problem list d/c if CXR normal
--- NOTE | 2019-02-17 12:46 | PN ---
Progress Note (short form) - Note Progress Note: Awake and alert. Reports congested cough. No hemoptysis. Afebrile. Saturation 100% on 2 L NC O2. Clinically appears stable. Intake & Output 02/14/19 02/15/19 02/16/19 02/17/19 23:59 23:59 23:59 23:59 Intake Total 850 450 700 480 Output Total 3150 0 3000 Balance -2300 450 -2300 480 Weight 183 lb 10.321 oz 184 lb 12.8 oz 180 lb 9.6 oz Last Vital Signs Temp Pulse Resp BP Pulse Ox 97.5 F L 86 22 H 123/59 L 100 02/17/19 10:00 02/17/19 10:00 02/17/19 10:00 02/17/19 10:00 02/16/19 21:00 Active Medications Acetaminophen (Tylenol -) 650 mg PO Q4H PRN PRN Reason: PAIN LEVEL 1 - 3 Last Admin: 02/16/19 21:08 Dose: 650 mg Amino Acids (Prosource No Carb Liquid Pkt) 30 ml PO BID@0800,1730 [facility] Last Admin: 02/17/19 10:04 Dose: 30 ml Buspirone HCl (Buspar -) 5 mg PO BID [facility] Last Admin: 02/17/19 10:05 Dose: 5 mg Fludrocortisone Acetate (Florinef -) 0.2 mg PO DAILY [facility] Last Admin: 02/17/19 10:06 Dose: 0.2 mg Guaifenesin (Robitussin -) 10 ml PO Q6H PRN PRN Reason: COUGH Last Admin: 02/17/19 02:53 Dose: 10 ml Sodium Chloride (Normal Saline -) 250 mls @ 3,000 mls/hr IV PRN PRN PRN Reason: Hypotension during Dialysis Insulin Aspart (Novolog Vial Sliding Scale -) 1 vial SQ ACHS [facility]; Protocol Last Admin: 02/17/19 12:03 Dose: Not Given Levalbuterol HCl (Xopenex) 0.31 mg IH Q8H PRN PRN Reason: ASTHMA Last Admin: 02/16/19 21:54 Dose: 0.31 mg Levothyroxine Sodium (Synthroid -) 50 mcg PO DAILY@0700 [facility] Last Admin: 02/17/19 06:27 Dose: 50 mcg Lidocaine/Prilocaine (Emla -) 1 applic TP QID PRN PRN Reason: HEMORRHOIDS Melatonin (Melatonin) 5 mg PO HS [facility] Last Admin: 02/16/19 21:08 Dose: 5 mg Midodrine (Proamatine -) 10 mg PO TID-MID [facility] Last Admin: 02/17/19 10:04 Dose: 10 mg Multivit/Ca Carb/B Cmplx/FA/Prenat (Nephro-Evert -) 1 tablet PO DAILY [facility] Last Admin: 02/17/19 10:04 Dose: 1 tablet Nystatin (Mycostatin Ointment -) 1 applic TP BID [facility] Last Admin: 02/17/19 10:06 Dose: 1 applic Ondansetron HCl (Zofran -) 4 mg PO Q6H PRN PRN Reason: NAUSEA AND/OR VOMITING Pantoprazole Sodium (Protonix -) 40 mg PO DAILY [facility] Last Admin: 02/17/19 10:04 Dose: 40 mg Rivaroxaban (Xarelto) 15 mg PO DAILY@1800 [facility] Last Admin: 02/16/19 17:43 Dose: 15 mg Sertraline HCl (Zoloft -) 50 mg PO DAILY [facility] Last Admin: 02/17/19 10:04 Dose: 50 mg Silver Sulfadiazine (Silvadene -) 1 applic TP BID [facility] Last Admin: 02/17/19 10:05 Dose: 1 applic Constitutional: Yes: Well Nourished, Anxious, NAD on NC O2 Eyes: Yes: WNL HENT: Yes: WNL Neck: Yes: WNL Cardiovascular: Yes: Pulse Irregular, S1, S2 Respiratory: Yes: Diminished, no wheeze, few scattered rhonchi Gastrointestinal: Yes: Normal Bowel Sounds, Soft Labs: Laboratory Results - last 24 hr 02/16/19 02/16/19 02/16/19 13:54 16:54 21:05 POC Glucometer 126 145 150 02/17/19 02/17/19 06:25 11:43 POC Glucometer 95 122 Problem List - Problems (1) Acute respiratory failure Code(s): J96.00 - ACUTE RESPIRATORY FAILURE, UNSP W HYPOXIA OR HYPERCAPNIA Qualifiers: Respiratory failure complication: hypoxia Qualified Code(s): J96.01 - Acute respiratory failure with hypoxia (2) ESRD on hemodialysis Code(s): N18.6 - END STAGE RENAL DISEASE; Z99.2 - DEPENDENCE ON RENAL DIALYSIS (3) Acute exacerbation of congestive heart failure Code(s): I50.9 - HEART FAILURE, UNSPECIFIED (4) Acute on chronic respiratory failure with hypoxia and hypercapnia Code(s): J96.21 - ACUTE AND CHRONIC RESPIRATORY FAILURE WITH HYPOXIA; J96.22 - ACUTE AND CHRONIC RESPIRATORY FAILURE WITH HYPERCAPNIA (5) Afib Code(s): I48.91 - UNSPECIFIED ATRIAL FIBRILLATION (6) Functional quadriplegia Code(s): R53.2 - FUNCTIONAL QUADRIPLEGIA (7) H/O deep venous thrombosis Code(s): Z86.718 - PERSONAL HISTORY OF OTHER VENOUS THROMBOSIS AND EMBOLISM (8) Shortness of breath Code(s): R06.02 - SHORTNESS OF BREATH Assessment/Plan Acute on Chronic Hypoxic and Hypercapneic Respiratory Failure improving Shock likely Septic improving r/o Autonomic Dysfunction Volume Overload ESRD on HD +Troponins likely Demand Ischemia Pulmonary HTN h/o PE/DVT - CXR to R/O left atelectasis which she has recurrently - completed antibiotics - continue midodrine, florinef - NC O2 as needed - continue anticoagulation - aspiration precautions - DVT/GI prophylaxis - Inhaled bronchodilators PRN If CXR is stable, there is no Pulmonary contraindication for DC. Patient has a multitude of medical issues which have progressed, but at present there in no acute respiratory issue noted. Dr Wiley
--- NOTE | 2019-02-17 14:26 | PN ---
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 Decision pending. Good PO tolerance with present diet.
[2019-02-17 15:31] VITALS: PULSE 88
--- NOTE | 2019-02-17 15:35 | PN ---
Progress Note, Physician History of Present Illness: Pt seen and examined at bedside. She is awake and alert. She denies chest pain. - Current Medication List Current Medications: Active Medications Acetaminophen (Tylenol -) 650 mg PO Q4H PRN PRN Reason: PAIN LEVEL 1 - 3 Last Admin: 02/16/19 21:08 Dose: 650 mg Amino Acids (Prosource No Carb Liquid Pkt) 30 ml PO BID@0800,1730 [facility] Last Admin: 02/17/19 10:04 Dose: 30 ml Buspirone HCl (Buspar -) 5 mg PO BID [facility] Last Admin: 02/17/19 10:05 Dose: 5 mg Fludrocortisone Acetate (Florinef -) 0.2 mg PO DAILY [facility] Last Admin: 02/17/19 10:06 Dose: 0.2 mg Guaifenesin (Robitussin -) 10 ml PO Q6H PRN PRN Reason: COUGH Last Admin: 02/17/19 02:53 Dose: 10 ml Sodium Chloride (Normal Saline -) 250 mls @ 3,000 mls/hr IV PRN PRN PRN Reason: Hypotension during Dialysis Insulin Aspart (Novolog Vial Sliding Scale -) 1 vial SQ ACHS [facility]; Protocol Last Admin: 02/17/19 12:03 Dose: Not Given Levalbuterol HCl (Xopenex) 0.31 mg IH Q8H PRN PRN Reason: ASTHMA Last Admin: 02/17/19 12:20 Dose: 0.31 mg Levothyroxine Sodium (Synthroid -) 50 mcg PO DAILY@0700 [facility] Last Admin: 02/17/19 06:27 Dose: 50 mcg Lidocaine/Prilocaine (Emla -) 1 applic TP QID PRN PRN Reason: HEMORRHOIDS Melatonin (Melatonin) 5 mg PO HS [facility] Last Admin: 02/16/19 21:08 Dose: 5 mg Midodrine (Proamatine -) 10 mg PO TID-MID [facility] Last Admin: 02/17/19 13:45 Dose: 10 mg Multivit/Ca Carb/B Cmplx/FA/Prenat (Nephro-Evert -) 1 tablet PO DAILY [facility] Last Admin: 02/17/19 10:04 Dose: 1 tablet Nystatin (Mycostatin Ointment -) 1 applic TP BID [facility] Last Admin: 02/17/19 10:06 Dose: 1 applic Ondansetron HCl (Zofran -) 4 mg PO Q6H PRN PRN Reason: NAUSEA AND/OR VOMITING Pantoprazole Sodium (Protonix -) 40 mg PO DAILY [facility] Last Admin: 02/17/19 10:04 Dose: 40 mg Rivaroxaban (Xarelto) 15 mg PO DAILY@1800 [facility] Last Admin: 02/16/19 17:43 Dose: 15 mg Sertraline HCl (Zoloft -) 50 mg PO DAILY [facility] Last Admin: 02/17/19 10:04 Dose: 50 mg Silver Sulfadiazine (Silvadene -) 1 applic TP BID [facility] Last Admin: 02/17/19 10:05 Dose: 1 applic - Objective Vital Signs: Vital Signs Temperature 97.6 F 02/17/19 14:00 Pulse Rate 88 02/17/19 14:00 Respiratory Rate 20 02/17/19 14:00 Blood Pressure 105/52 L 02/17/19 14:00 O2 Sat by Pulse Oximetry (%) 100 02/16/19 21:00 Constitutional: Yes: Calm Eyes: Yes: Conjunctiva Clear HENT: Yes: Atraumatic Cardiovascular: Yes: S1, S2 Respiratory: Yes: On Nasal O2 Gastrointestinal: Yes: Soft, Abdomen, Obese Genitourinary: Yes: Incontinence Musculoskeletal: Yes: Muscle Weakness Edema: LUE: Trace, RUE: Trace Neurological: Yes: Oriented Psychiatric: Yes: Oriented Labs: CBC, BMP 02/16/19 10:15 02/16/19 10:15 INR, PTT INR 1.76 (0.83-1.09) H 01/27/19 05:45 Problem List - Problems (1) Acute respiratory failure Code(s): J96.00 - ACUTE RESPIRATORY FAILURE, UNSP W HYPOXIA OR HYPERCAPNIA Qualifiers: Respiratory failure complication: hypoxia Qualified Code(s): J96.01 - Acute respiratory failure with hypoxia (2) ESRD on hemodialysis Code(s): N18.6 - END STAGE RENAL DISEASE; Z99.2 - DEPENDENCE ON RENAL DIALYSIS Assessment/Plan Current Medications Generic Name Dose Route Start Last Admin Trade Name Freq PRN Reason Stop Dose Admin Acetaminophen 650 mg 02/14/19 16:13 02/16/19 21:08 Tylenol - PO 650 mg Q4H PRN Administration PAIN LEVEL 1 - 3 Amino Acids 30 ml 02/14/19 17:30 02/17/19 10:04 Prosource No Carb Liquid Pkt PO 30 ml BID@0800,1730 [facility] Administration Buspirone HCl 5 mg 02/15/19 22:00 02/17/19 10:05 Buspar - PO 5 mg BID [facility] Administration Fludrocortisone Acetate 0.2 mg 02/15/19 10:00 02/17/19 10:06 Florinef - PO 0.2 mg DAILY [facility] Administration Guaifenesin 10 ml 02/15/19 12:41 02/17/19 02:53 Robitussin - PO 10 ml Q6H PRN Administration COUGH Sodium Chloride 250 mls @ 3,000 mls/hr 02/14/19 16:13 Normal Saline - IV PRN PRN Hypotension during Dialysis Insulin Aspart 1 vial 02/14/19 16:30 02/17/19 12:03 Novolog Vial Sliding Scale - SQ Not Given ACHS [facility] Protocol Levalbuterol HCl 0.31 mg 02/16/19 13:24 02/17/19 12:20 Xopenex IH 0.31 mg Q8H PRN Administration ASTHMA Levothyroxine Sodium 50 mcg 02/15/19 07:00 02/17/19 06:27 Synthroid - PO 50 mcg DAILY@0700 [facility] Administration Lidocaine/Prilocaine 1 applic 02/14/19 16:13 Emla - TP QID PRN HEMORRHOIDS Melatonin 5 mg 02/14/19 22:00 02/16/19 21:08 Melatonin PO 5 mg HS [facility] Administration Midodrine 10 mg 02/14/19 18:00 02/17/19 13:45 Proamatine - PO 10 mg TID-MID [facility] Administration Multivit/Ca Carb/B Cmplx/FA/Prenat 1 tablet 02/15/19 10:00 02/17/19 10:04 Nephro-Evert - PO 1 tablet DAILY [facility] Administration Nystatin 1 applic 02/14/19 22:00 02/17/19 10:06 Mycostatin Ointment - TP 1 applic BID [facility] Administration Ondansetron HCl 4 mg 02/14/19 16:13 Zofran - PO Q6H PRN NAUSEA AND/OR VOMITING Pantoprazole Sodium 40 mg 02/15/19 10:00 02/17/19 10:04 Protonix - PO 40 mg DAILY [facility] Administration Rivaroxaban 15 mg 02/14/19 18:00 02/16/19 17:43 Xarelto PO 15 mg DAILY@1800 [facility] Administration Sertraline HCl 50 mg 02/15/19 10:00 02/17/19 10:04 Zoloft - PO 50 mg DAILY [facility] Administration Silver Sulfadiazine 1 applic 02/14/19 22:00 02/17/19 10:05 Silvadene - TP 1 applic BID [facility] Administration Impression 1. ESRD 2. change in mental status 3. resp failure requiring intubation 4. chf 5. dvt 6. anemia 7. a-fib 8. hypothyroid 9. pleural effusion Plan - pt has HD set up as outpt - cont renal diet with fluid retriction - cont midodrine - she has not required bipap - monitor bp - HD right thigh cath, 3 k bath, 3 15 time, 400 abf
[2019-02-17 17:36] VITALS: BP 124/71; TEMP 97.3
[2019-02-17] MEDS: RIVAROXABAN 15 MG TABLET PO SCH (18:24)
== END 2019-02-17 20:00 | DRG 870 ==
LOC: JER 20:04 → JERBED 21:38 → JICU 01-27 03:00 → J5S 02-14 14:56
PROVIDERS: ADMIT Family Medicine; ATTEND Family Medicine
PROC: 06HN33Z Insertion of Infusion Device into Left Femoral Vein, Percutaneous Approach (ICD-10-PCS; principal; 2019-01-26)
PROC: 5A1955Z Respiratory Ventilation, Greater than 96 Consecutive Hours (ICD-10-PCS; 2019-01-26)
PROC: B51CZZA Fluoroscopy of Left Lower Extremity Veins, Guidance (ICD-10-PCS; 2019-01-26)
DX: A41.89 Other specified sepsis (principal); J96.01 Acute respiratory failure with hypoxia; J96.02 Acute respiratory failure with hypercapnia; R65.21 Severe sepsis with septic shock; I21.A1 Myocardial infarction type 2; N18.6 End stage renal disease; J18.9 Pneumonia, unspecified organism; R57.0 Cardiogenic shock; E87.2 Acidosis; I13.2 Hypertensive heart and chronic kidney disease with heart failure and with stage 5 chronic kidney disease, or end stage renal disease; I48.91 Unspecified atrial fibrillation; E03.9 Hypothyroidism, unspecified; D64.9 Anemia, unspecified; I95.9 Hypotension, unspecified; J44.9 Chronic obstructive pulmonary disease, unspecified; E87.6 Hypokalemia; D47.3 Essential (hemorrhagic) thrombocythemia; E11.22 Type 2 diabetes mellitus with diabetic chronic kidney disease; I27.20 Pulmonary hypertension, unspecified; M79.89 Other specified soft tissue disorders; K21.9 Gastro-esophageal reflux disease without esophagitis; E87.70 Fluid overload, unspecified; R74.8 Abnormal levels of other serum enzymes; R00.1 Bradycardia, unspecified; Z85.42 Personal history of malignant neoplasm of other parts of uterus; Z86.718 Personal history of other venous thrombosis and embolism; Z86.711 Personal history of pulmonary embolism; Z99.2 Dependence on renal dialysis
CPT/HCPCS: 36415; 36600; 70450-TC; 71045-TC-FY; 80048; 80053; 80162; 82272; 82375; 82550; 82803; 82962; 83050; 83605; 83735; 84100; 84443; 84484; 85025; 85027; 85610; 85730; 87040; 93005; 93010; 93306-TC; 93971; 94002; 99284-25; G0480; J0131; J0885; J7030; P9047

== ENCOUNTER 2019-02-18 21:16 | Inpatient (IN) | payer OTHER ==
[2019-02-18 23:03] LABS: BASO % 1.3 % (0-2.0); EOS % 1.1 % (0-4.5); HEMATOCRIT 31.4 % (32.4-45.2); HEMOGLOBIN 9.7 GM/dL (10.7-15.3); LYMPH % 21.7 % (8-40); MCH 30.1 pg (25.7-33.7); MCHC 30.8 g/dl (32.0-36.0); MEAN CELL VOLUME 97.8 fl (80-96); MEAN PLT VOLUME 8.8 fl (7.5-11.1); MONO % 9.1 % (3.8-10.2); NEUT % 66.8 % (42.8-82.8); PLATELET COUNT 124 K/MM3 (134-434); RBC 3.22 M/mm3 (3.60-5.2); RDW 20.6 % (11.6-15.6); WHITE BLOOD COUNT 3.7 K/mm3 (4.0-10.0)
[2019-02-18 23:05] LABS: ANISOCYTOSIS 2+; PLATELET ESTIMATE DECREASED
[2019-02-18 23:06] LABS: INR 2.18 (0.83-1.09); PROTHROMBIN TIME (PATIENT) 25.9 SEC (9.7-13.0)
[2019-02-18 23:25] LABS: ALBUMIN 3.3 g/dl (3.4-5.0); BILIRUBIN,TOTAL 0.6 mg/dL (0.2-1); BLOOD UREA NITROGEN 24.3 mg/dL (7-18); CALCIUM 8.4 mg/dL (8.5-10.1); CREATININE 2.4 mg/dL (0.55-1.3); MAGNESIUM 2.1 mg/dL (1.8-2.4); POTASSIUM 4.3 mmol/L (3.5-5.1); TOT PROT 7.4 g/dl (6.4-8.2)
--- NOTE | 2019-02-18 23:34 | PDOC ---
Attending Attestation - Resident Resident Name: Dylon Zhu - ED Attending Attestation I have performed the following: I have examined & evaluated the patient, The case was reviewed & discussed with the resident, I agree w/resident's findings & plan - HPI HPI: 02/18/19 23:29 73y/o F well known to this institution, h/o COPD and recent admission where presented intubated for acute respiratory failure, diagnosed with pna and treated, discharged 02/16 presents now with recurrent and progressive difficulty breathing with acute respiratory distress. found by EMS, initially well then acute distress/hypoxia consistent with phlegm/ mucous plugging. arrived with nrb in place o2 sats in 90s but in moderate distress, coughing up phlegm. placed on bipap and suctioned with marked improvement and less work of breathing , sats remained normal on bipap. no cp, no f/c - Physicial Exam PE: 02/18/19 23:31 afebrile, slight tachy, intermittent drop in o2 sat alert, elderly, frail on bipap + upper airway congestion but no stridor, coughing up clear phlegm with poor effort b/l crackles/rhonchi irreg with normal rate - Critical Care Time Total Critical Care Time: 80 Critical Care Statement: The care of this patient involved high complexity decision making to prevent further life threatening deterioration of the patient 's condition and/or to evaluate & treat vital organ system(s) failure or risk of failure. - Medical Decision Making 02/18/19 23:34 73y/o F with acute respiratory distress, likely hypoxic 2/2 intermittent mucous plugging, now improved after suction and bipap. maintain on monitor/bipap. respiratory at bedside labs, ekg, cxr nebs refusing ABG admit 02/19/19 00:35 slight pancytopenia, similar to discharge levels. cxr with persistent base opacity. improved and stabilized on bipap. admit for respiratory monitoring, chest PT, eval for bronchoscopy Heart Score/ECG Review #1 ECG reviewed & interpreted by me at: 22:55 General ECG Interpretation: Normal Rate (afib at 89), Normal Intervals (qtc 455) , No acute ischemic changes Compared to previous ECG there are: No significant change (c/w 12/31)
--- NOTE | 2019-02-18 23:40 | PDOC ---
History of Present Illness - General Chief Complaint: Shortness of Breath Stated Complaint: DIFF. BREATHING Time Seen by Provider: 02/18/19 21:41 History Source: Patient, EMS, [facility] Records, Old Records Exam Limitations: No Limitations - History of Present Illness Initial Comments: 02/18/19 23:39 Argelia Patel is a 73F with PMH COPD, ESRD on HD and recent admission for ARF and PNA discharged 2 days ago to [facility], presenting with 2 days of worsening difficulty breathing. Per EMS report, as been having a lot of difficulty breathing at [facility] ever since she was discharged. EMS O2sat 100% on RA and doing well, but started having mucus plugging and became cyanotic, resolved after she coughed up mucus. Arrived here reporting that she could not breathe, and says she had had trouble for the last few days. On HD MWF, last dialysis today. Past History - Past Medical History Allergies/Adverse Reactions: Allergies Allergy/AdvReac Type Severity Reaction Status Date / Time No Known Allergies Allergy Unverified 01/19/19 11:43 Home Medications: Ambulatory Orders Acetaminophen 650 mg PO Q6H PRN 09/20/18 Ammonium Lactate Lotion [Lac-Hydrin 12] 1 applic TP BID 09/20/18 Anusol Hc Suppository - 25 mg TX Q4H PRN 09/20/18 Apixaban [Eliquis] 1 tab PO BID 09/20/18 Calcitriol [Calcitriol -] 3 cap PO TID 09/20/18 Docusate Sodium [Colace -] 3 tab PO HS 09/20/18 Lidocaine/Prilocaine Cream [Lidocaine-Prilocaine Cream -] 1 applic TP QID PRN Melatonin 1 mg PO HS 09/20/18 Midodrine HCl 10 mg PO Q8H PRN 09/20/18 Nystatin Ointment [Mycostatin Ointment -] 1 applic TP BID 09/20/18 Sertraline HCl [Zoloft -] 1 tab PO DAILY 09/20/18 Silver Sulfadiazine [Silvadene] 1 applic TP BID 09/20/18 Digoxin 62.5 mcg PO DAILY 12/08/18 Levothyroxine [Synthroid -] 25 mcg PO DAILY 12/08/18 Vitamin B Comp W-C [Nephro-Evert -] 0.8 mg PO DAILY 12/08/18 Acetaminophen [Tylenol .Regular Strength -] 650 mg PO Q4H PRN tablet 02/09/19 Amino Acids/Protein Hydrolys [Prosource No Carb Liquid Pkt] 30 ml PO BID@0800, 1730 packet 02/09/19 Collagenase Clostridium Hist. [Santyl -] 1 applic TP DAILY tube 02/09/19 Insulin Sliding Scale [Novolog Vial Sliding Scale -] 1 vial SQ ACHS units 02/09 Levothyroxine [Synthroid -] 50 mcg PO DAILY@0700 tablet 02/09/19 Lidocaine/Prilocaine Cream [Lidocaine-Prilocaine Cream -] 1 applic TP QID PRN applic 02/09/19 Melatonin 10 mg PO HS tab 02/09/19 Ondansetron [Zofran -] 4 mg PO Q6H PRN tablet 02/09/19 Rivaroxaban [Xarelto] 15 mg PO DAILY@1800 tablet 02/09/19 Sertraline HCl [Zoloft -] 50 mg PO DAILY tablet 02/09/19 Silver Sulfadiazine 1% Top Cr [Silvadene -] 1 applic TP BID jar 02/09/19 Vitamin B Comp W-C [Nephro-Evert -] 1 tablet PO DAILY tablet 02/09/19 Amino Acids/Protein Hydrolys [Prosource No Carb Liquid Pkt] 30 ml PO BID@0800, 1730 packet 02/16/19 Buspirone HCl [Buspar -] 5 mg PO BID tablet 02/16/19 Fludrocortisone Acetate [Florinef -] 0.2 mg PO DAILY tablet 02/16/19 Guaifenesin [Robitussin -] 10 ml PO Q6H PRN cup 02/16/19 Insulin Sliding Scale [Novolog Vial Sliding Scale -] 1 vial SQ ACHS units 02/16 Levalbuterol HCl [Xopenex] 0.31 mg IH Q8H PRN vial.neb 02/16/19 Levothyroxine [Synthroid -] 50 mcg PO DAILY@0700 tablet 02/16/19 Lidocaine/Prilocaine Cream [Lidocaine-Prilocaine Cream -] 1 applic TP QID PRN applic 02/16/19 Melatonin 5 mg PO HS tab 02/16/19 Pantoprazole Sodium [Protonix -] 40 mg PO DAILY tablet.ec 02/16/19 Rivaroxaban [Xarelto] 15 mg PO DAILY@1800 tablet 02/16/19 Sertraline HCl [Zoloft -] 50 mg PO DAILY tablet 02/16/19 Silver Sulfadiazine 1% Top Cr [Silvadene -] 1 applic TP BID jar 02/16/19 Vitamin B Comp W-C [Nephro-Evert -] 1 tablet PO DAILY tablet 02/16/19 Anemia: Yes Asthma: No Cancer: Yes (endometrial ca, s/p hysterectomy) Cardiac Disorders: Yes (A-fib) CVA: No COPD: No CHF: Yes DVT: Yes Dementia: No Diabetes: Yes GI Disorders: No (cdiff) Disorders: Yes (ESRD, HD, Rfemoral tessio) HTN: No Hypercholesterolemia: No Liver Disease: No Seizures: No Thyroid Disease: Yes (hypothyroidism) - Surgical History Abdominal Surgery: No Appendectomy: No Cardiac Surgery: No Cholecystectomy: No Lung Surgery: No Neurologic Surgery: No Orthopedic Surgery: Yes (spinal surgery december 2017,feb 2017 Lt arm fracture with tendon transfer) - Suicide/Smoking/Psychosocial Hx Smoking History: Unknown if ever smoked Have you smoked in the past 12 months: No Hx Alcohol Use: No Drug/Substance Use Hx: No Substance Use Type: None Hx Substance Use Treatment: No Review of Systems - Review of Systems Constitutional: No: Symptoms Reported HEENTM: Yes: Nose Congestion, Difficulty Swallowing Respiratory: Yes: Cough, Shortness of Breath, Other (sensation of something stuck in her throat). No: Productive cough Cardiac (ROS): No: Chest Pain, Irregular Heart Rate, Palpitations ABD/GI: No: Constipated, Diarrhea, Nausea, Vomiting : No: Burning, Dysuria, Discharge, Frequency, Flank Pain, Hematuria, Incontinence Musculoskeletal: No: Symptoms Reported Integumentary: No: Symptoms Reported Neurological: No: Symptoms reported Endocrine: No: Symptoms Reported Hematologic/Lymphatic: No: Symptoms Reported All Other Systems: Reviewed and Negative *Physical Exam - Vital Signs Last Vital Signs Temp Pulse Resp BP Pulse Ox 99 02/18/19 23:01 - Physical Exam General Appearance: Yes: Nourished, Appropriately Dressed, Moderate Distress, Obese HEENT: positive: EOMI, JACQUELINE, Normal Voice, Pharynx Normal, Hearing Grossly Normal. negative: Scleral Icterus (R), Scleral Icterus (L), Muffled/Hoarse voice, Rhinorrhea Neck: positive: Trachea midline, Normal Thyroid, Supple. negative: Tender, Stridor, Lymphadenopathy (R), Lymphadenopathy (L) Respiratory/Chest: positive: Respiratory Distress, Accessory Muscle Use, Other ( O2sat 100% on RA, patient lungs sound clear, but appears to be using accessory muscles, significant coughing). negative: Chest Tender Cardiovascular: positive: Regular Rhythm, Regular Rate Gastrointestinal/Abdominal: positive: Normal Bowel Sounds, Flat, Soft. negative : Tender, Distended, Guarding Musculoskeletal: positive: Normal Inspection. negative: CVA Tenderness Extremity: positive: Other (Limb Alert bracelet to R arm, bilateral UE edema, R> L, pulses difficult to palpate, has long well-healed surgical incision to L arm and contracture to L hand) Integumentary: positive: Normal Color, Dry, Warm Neurologic: positive: Fully Oriented, Alert, Normal Mood/Affect, Normal Response ED Treatment Course - LABORATORY CBC & Chemistry Diagram: 02/18/19 22:29 02/18/19 22:25 - ADDITIONAL ORDERS Additional order review: Laboratory Results 02/18/19 02/18/19 02/18/19 22:25 22:25 22:25 PT with INR 25.90 H INR 2.18 H Sodium 137 Potassium 4.3 Chloride 97 L Carbon Dioxide 29 Anion Gap 11 BUN 24.3 H Creatinine 2.4 H Est GFR (CKD-EPI)AfAm 22.78 Est GFR (CKD-EPI)NonAf 19.65 Random Glucose 99 Calcium 8.4 L Magnesium 2.1 Total Bilirubin 0.6 AST 39 H ALT 22 Alkaline Phosphatase 151 H Creatine Kinase 60 Cancelled Troponin I 0.03 Cancelled Total Protein 7.4 Albumin 3.3 L 02/18/19 22:29 RBC 3.22 L MCV 97.8 H MCHC 30.8 L RDW 20.6 H MPV 8.8 Neutrophils % 66.8 D Lymphocytes % 21.7 D Monocytes % 9.1 D Eosinophils % 1.1 D Basophils % 1.3 D Medical Decision Making - Medical Decision Making 02/18/19 23:39 Argelia Patel is a 73F with PMH COPD and recent admission for ARF and PNA discharged 2 days ago to [facility], presenting with 2 days of worsening difficulty breathing. Arrived with O2sat 99 on RA, but coughing up phlegm and complaining of SOB. Placed on Bipap and suctioned, less work of breathing, sats remained normal on Bipap. L arm 20G PIV placed in AC. Patient refused ABG despite discussion about the medical necessity of the procedure to assess her respiratory status. Will evaluate for worsening PNA vs. CHF exacerbation vs. COPD exacerbation vs. PTC via: CMP CBC CP BNP CXR ECG Mg Coags 02/19/19 01:18 ECG low voltage, difficult to interpret, afib with possible RVH CXR appears unchanged from prior CXR 2 days ago. Labs all WNL. However, given recent admission and intubation, as well as heavily increased WOB on arrival necessitating use of BiPap to maintain oxygenation and prevent tiring out, as well as to maintain PEEP given mucous plugging, needs admission for respiratory distress and concern for cardiac arrest if left without airway support at this time. Would benefit from chest PT and further respiratory evaluation. 02/19/19 01:30 Spoke to admitting team, admission under Dr. Camargo to Med/Surg. 02/19/19 02:40 Patient would like to eat something and stop BiPap. Called respiratory therapy, Ailyn recommends stopping BiPap and putting on 5L NC, okay to eat. 02/19/19 02:45 RT came down to assess, reduced NC to 3L. Patient reports feeling much better. 02/19/19 03:04 Patient calling for help, says she choked on something. Screaming that she cannot breathe. Wants BiPap back on to help her breathe. Examined patient, no signs of choking or aspiration, is vocalizing normally and airway is patent. Advised patient that she is doing well off the BiPap, but patient would still like to have it. Called Ailyn with RT to place BiPap back on. 02/19/19 04:40 Patient complaining of pain in her buttock. On exam, patient has defecated into her diaper, but also found to have bleeding ulcer 2 cm to L buttock with excoriations/dermatitis to R buttock. Dressed in bacitracin and gauze, cleaned patient *DC/Admit/Observation/Transfer Diagnosis at time of Disposition: Shortness of breath, Mucus plugging of bronchi Acute respiratory failure Qualifiers: Respiratory failure complication: hypoxia Qualified Code(s): J96.01 - Acute respiratory failure with hypoxia - Discharge Dispostion Decision to Admit order: Yes - Referrals - Patient Instructions - Post Discharge Activity
--- NOTE | 2019-02-19 01:18 | HP ---
CHIEF COMPLAINT: shortness of breath PCP: Rosemarie HISTORY OF PRESENT ILLNESS: 73F w/ a history of ESRD on HD last yesterday, a-fib, on digoxin, and hypothyroidism presents with shortness of breath x 1 day. Had HD one day ago. Reports coughing up clearish sputum, denied purulent sputum, denied any fevers, or chills. She was found to be desaturating in ER and was found to have increased work of breathing and placed on bipap. (1) bipap (2) cxr (3) Recent Travel:no PAST MEDICAL HISTORY: ESRD on HD last yesterday, a-fib, on digoxin, and hypothyroidism PE PAST SURGICAL HISTORY: Right thigh HD catheter placement Social History: Smoking:no Alcohol:no Drugs: no Family History: none reported Allergies No Known Allergies Allergy (Unverified 01/19/19 11:43) HOME MEDICATIONS: Home Medications Medication Instructions Recorded Acetaminophen 650 mg PO Q6H PRN 09/20/18 Ammonium Lactate Lotion 1 applic TP BID 09/20/18 [Lac-Hydrin 12] Anusol Hc Suppository - 25 mg NC Q4H PRN 09/20/18 Apixaban [Eliquis] 1 tab PO BID 09/20/18 Calcitriol [Calcitriol -] 3 cap PO TID 09/20/18 Docusate Sodium [Colace -] 3 tab PO HS 09/20/18 Lidocaine/Prilocaine Cream 1 applic TP QID PRN 09/20/18 [Lidocaine-Prilocaine Cream -] Melatonin 1 mg PO HS 09/20/18 Midodrine HCl 10 mg PO Q8H PRN 09/20/18 Nystatin Ointment [Mycostatin 1 applic TP BID 09/20/18 Ointment -] Sertraline HCl [Zoloft -] 1 tab PO DAILY 09/20/18 Silver Sulfadiazine [Silvadene] 1 applic TP BID 09/20/18 Digoxin 62.5 mcg PO DAILY 12/08/18 Levothyroxine [Synthroid -] 25 mcg PO DAILY 12/08/18 Vitamin B Comp W-C [Nephro-Evert -] 0.8 mg PO DAILY 12/08/18 Acetaminophen [Tylenol .Regular 650 mg PO Q4H PRN tablet 02/09/19 Strength -] Amino Acids/Protein Hydrolys 30 ml PO BID@0800,1730 packet 02/09/19 [Prosource No Carb Liquid Pkt] Collagenase Clostridium Hist. 1 applic TP DAILY tube 02/09/19 [Santyl -] Insulin Sliding Scale [Novolog 1 vial SQ ACHS units 02/09/19 Vial Sliding Scale -] Levothyroxine [Synthroid -] 50 mcg PO DAILY@0700 tablet 02/09/19 Lidocaine/Prilocaine Cream 1 applic TP QID PRN applic 02/09/19 [Lidocaine-Prilocaine Cream -] Melatonin 10 mg PO HS tab 02/09/19 Ondansetron [Zofran -] 4 mg PO Q6H PRN tablet 02/09/19 Rivaroxaban [Xarelto] 15 mg PO DAILY@1800 tablet 02/09/19 Sertraline HCl [Zoloft -] 50 mg PO DAILY tablet 02/09/19 Silver Sulfadiazine 1% Top Cr 1 applic TP BID jar 02/09/19 [Silvadene -] Vitamin B Comp W-C [Nephro-Evert -] 1 tablet PO DAILY tablet 02/09/19 Amino Acids/Protein Hydrolys 30 ml PO BID@0800,1730 packet 02/16/19 [Prosource No Carb Liquid Pkt] Buspirone HCl [Buspar -] 5 mg PO BID tablet 02/16/19 Fludrocortisone Acetate [Florinef 0.2 mg PO DAILY tablet 02/16/19 -] Guaifenesin [Robitussin -] 10 ml PO Q6H PRN cup 02/16/19 Insulin Sliding Scale [Novolog 1 vial SQ ACHS units 02/16/19 Vial Sliding Scale -] Levalbuterol HCl [Xopenex] 0.31 mg IH Q8H PRN vial.neb 02/16/19 Levothyroxine [Synthroid -] 50 mcg PO DAILY@0700 tablet 02/16/19 Lidocaine/Prilocaine Cream 1 applic TP QID PRN applic 02/16/19 [Lidocaine-Prilocaine Cream -] Melatonin 5 mg PO HS tab 02/16/19 Pantoprazole Sodium [Protonix -] 40 mg PO DAILY tablet.ec 02/16/19 Rivaroxaban [Xarelto] 15 mg PO DAILY@1800 tablet 02/16/19 Sertraline HCl [Zoloft -] 50 mg PO DAILY tablet 02/16/19 Silver Sulfadiazine 1% Top Cr 1 applic TP BID jar 02/16/19 [Silvadene -] Vitamin B Comp W-C [Nephro-Evert -] 1 tablet PO DAILY tablet 02/16/19 REVIEW OF SYSTEMS CONSTITUTIONAL: Absent: fever, chills, diaphoresis, generalized weakness, malaise, loss of appetite, weight change HEENT: Absent: rhinorrhea, nasal congestion, throat pain, throat swelling, difficulty swallowing, mouth swelling, ear pain, eye pain, visual changes CARDIOVASCULAR: Absent: chest pain, syncope, palpitations, irregular heart rate, lightheadedness , peripheral edema RESPIRATORY: Absent: , orthopnea, wheezing, stridor, hemoptysis present- cough, shortness of breath, dyspnea with exertion GASTROINTESTINAL: Absent: abdominal pain, abdominal distension, nausea, vomiting, diarrhea, constipation, melena, hematochezia GENITOURINARY: Absent: dysuria, frequency, urgency, hesitancy, hematuria, flank pain, genital pain MUSCULOSKELETAL: Absent: myalgia, arthralgia, joint swelling, back pain, neck pain SKIN: Absent: rash, itching, pallor HEMATOLOGIC/IMMUNOLOGIC: Absent: easy bleeding, easy bruising, lymphadenopathy, frequent infections ENDOCRINE: Absent: unexplained weight gain, unexplained weight loss, heat intolerance, cold intolerance NEUROLOGIC: Absent: headache, focal weakness or paresthesias, dizziness, unsteady gait, seizure, mental status changes, bladder or bowel incontinence PSYCHIATRIC: Absent: anxiety, depression, suicidal or homicidal ideation, hallucinations. PHYSICAL EXAMINATION Vital Signs - 24 hr 02/18/19 02/18/19 23:01 23:30 Pulse Rate 87 Pulse Rate [ 87 Left] Respiratory 17 Rate Blood Pressure 105/55 L [Left Calf] O2 Sat by Pulse 99 100 Oximetry (%) GENERAL: Awake, alert, on bipap and fully oriented, obese, in some resp distress HEAD: Normal with no signs of trauma. EYES: Pupils equal, round and reactive to light, extraocular movements intact, sclera anicteric, conjunctiva clear. No lid lag. EARS, NOSE, THROAT: Ears normal, nares patent, oropharynx clear without exudates. Moist mucous membranes. NECK: Normal range of motion, supple without lymphadenopathy, JVD, or masses. LUNGS: Breath sounds equal, clear to auscultation bilaterally. No wheezes, and no crackles. No accessory muscle use. HEART: Regular rate and rhythm, normal S1 and S2 without murmur, rub or gallop. ABDOMEN: Soft, nontender, not distended, normoactive bowel sounds, no guarding, no rebound, no masses. MUSCULOSKELETAL: Normal range of motion at all joints. No bony deformities or tenderness. No CVA tenderness. UPPER EXTREMITIES: 2+ pulses, warm, well-perfused. No cyanosis. No clubbing. pitting edema in right upper ext> L, left arm bruising noted LOWER EXTREMITIES: 2+ pulses, warm, well-perfused. No calf tenderness. 1+ peripheral edema NEUROLOGICAL: Cranial nerves II-XII intact. Normal speech. Normal gait. PSYCHIATRIC: Cooperative. Good eye contact. Appropriate mood and affect. SKIN: Warm, dry, normal turgor, no rashes or lesions noted, normal capillary refill. Laboratory Results - last 24 hr 02/18/19 02/18/19 02/18/19 22:25 22:25 22:25 WBC RBC Hgb Hct MCV MCH MCHC RDW Plt Count MPV Absolute Neuts (auto) Neutrophils % Lymphocytes % Monocytes % Eosinophils % Basophils % Nucleated RBC % Platelet Estimate Platelet Comment Anisocytosis Microcytosis PT with INR 25.90 H INR 2.18 H Sodium 137 Potassium 4.3 Chloride 97 L Carbon Dioxide 29 Anion Gap 11 BUN 24.3 H Creatinine 2.4 H Est GFR (CKD-EPI)AfAm 22.78 Est GFR (CKD-EPI)NonAf 19.65 Random Glucose 99 Calcium 8.4 L Magnesium 2.1 Total Bilirubin 0.6 AST 39 H ALT 22 Alkaline Phosphatase 151 H Creatine Kinase Cancelled 60 Troponin I Cancelled 0.03 Total Protein 7.4 Albumin 3.3 L 02/18/19 22:29 WBC 3.7 L RBC 3.22 L Hgb 9.7 L Hct 31.4 L MCV 97.8 H MCH 30.1 MCHC 30.8 L RDW 20.6 H Plt Count 124 L MPV 8.8 Absolute Neuts (auto) 2.5 Neutrophils % 66.8 D Lymphocytes % 21.7 D Monocytes % 9.1 D Eosinophils % 1.1 D Basophils % 1.3 D Nucleated RBC % 0 Platelet Estimate Decreased Platelet Comment No clumping noted Anisocytosis 2+ Microcytosis 1+ PT with INR INR Sodium Potassium Chloride Carbon Dioxide Anion Gap BUN Creatinine Est GFR (CKD-EPI)AfAm Est GFR (CKD-EPI)NonAf Random Glucose Calcium Magnesium Total Bilirubin AST ALT Alkaline Phosphatase Creatine Kinase Troponin I Total Protein Albumin imaging reviewed ASSESSMENT/PLAN: #Acute on Chronic Hypoxic and Hypercapneic resp failure, vs chf vs COPD. Likely fluid overload contributing to her respiratory worsening. Patient requires HD. Do not suspect pneumonia at this time as she is not having productive purulent cough or fevers. #Pulmonary HTN -admit to med/surg -abg -c/w bipap for now -monitor vs closely -pulse oximetry -renal consult for HD -i/o -daily weights -echo -fluid restriction - continue midodrine, florinef -c/w home dose digoxin, send am level -renal eval for HD -pulm consult #COPD -bronchodilators #afib, hx of PE -c/w Xarelto 15mg po daily #Hypothryopidism -c/w home dose synthroid #DM -novolog sliding scale #DVT ppx -on xarelto Visit type - Emergency Visit Emergency Visit: Yes ED Registration Date: 02/19/19 Care time: The patient presented to the Emergency Department on the above date and was hospitalized for further evaluation of their emergent condition. - New Patient This patient is new to me today: Yes Date on this admission: 02/19/19 - Critical Care Critical Care patient: No
[2019-02-19] MEDS ORDERED: MIDODRINE HCL 5 MG TABLET PO PRN ×2 (03:33→22:57)
[2019-02-19] MEDS ORDERED: LEVALBUTEROL HCL 0.31 MG/3 ML VIAL.NEB IH PRN ×2 (03:33→22:57)
[2019-02-19] MEDS ORDERED: HEPARIN NA (PORCINE) 5,000 UNITS/ML 1ML VIAL SQ SCH (06:00)
[2019-02-19] MEDS ORDERED: LEVOTHYROXINE NA 25 MCG TABLET (FP) PO SCH (07:00)
[2019-02-19] MEDS: CALCITRIOL 0.25 MCG CAPSULE (FP) PO SCH ×3 (07:02→21:27)
[2019-02-19] MEDS ORDERED: LEVOTHYROXINE NA 25 MCG TABLET (FP) ONE (07:04)
[2019-02-19] MEDS: INSULIN SLIDING SCALE (NOVOLOG) 1 VIAL SQ SCH ×3 (07:09→22:00)
[2019-02-19] MEDS ORDERED: AMINO ACIDS/PROTEIN HYDROLYS 30 ML LIQUID.PKT PO SCH (08:00)
[2019-02-19] MEDS ORDERED: ALBUTEROL SO4 2.5/IPRATROPIUM 0.5 INH SOL 3 ML VIAL.NEB. NEB ONE ×2 (08:53→08:58)
[2019-02-19] MEDS: ALBUTEROL SO4 2.5/IPRATROPIUM 0.5 INH SOL 3 ML VIAL.NEB. NEB SCH ×4 (09:01→20:40)
[2019-02-19] MEDS: AMINO ACIDS/PROTEIN HYDROLYS 30 ML LIQUID.PKT PO SCH ×2 (09:02→18:33)
[2019-02-19] MEDS: busPIRone HCL 5 MG TABLET PO SCH ×2 (09:29→21:27)
[2019-02-19] MEDS ORDERED: SERTRALINE HCL 50 MG TABLET (FP) PO SCH (10:00)
[2019-02-19] MEDS ORDERED: PANTOPRAZOLE 40 MG TABLET (FP) PO SCH (10:00)
[2019-02-19] MEDS ORDERED: FLUDROCORTISONE ACETATE 0.1 MG TABLET (FP) PO SCH (10:00)
[2019-02-19] MEDS ORDERED: DIGOXIN 0.125 MG TABLET (FP) PO SCH (10:00)
[2019-02-19 10:54] LABS: BASO % 1.2 % (0-2.0); EOS % 1.1 % (0-4.5); HEMATOCRIT 31.6 % (32.4-45.2); HEMOGLOBIN 9.7 GM/dL (10.7-15.3); LYMPH % 24.6 % (8-40); MCH 30.2 pg (25.7-33.7); MCHC 30.7 g/dl (32.0-36.0); MEAN CELL VOLUME 98.4 fl (80-96); MEAN PLT VOLUME 8.5 fl (7.5-11.1); MONO % 10.8 % (3.8-10.2); NEUT % 62.3 % (42.8-82.8); PLATELET COUNT 116 K/MM3 (134-434); RBC 3.21 M/mm3 (3.60-5.2); RDW 20.5 % (11.6-15.6); WHITE BLOOD COUNT 4.4 K/mm3 (4.0-10.0)
--- NOTE | 2019-02-19 11:32 | PN ---
Progress Note, Physician - Current Medication List Current Medications: Active Medications Albuterol/Ipratropium (Duoneb -) 1 amp NEB RQID [facility] Last Admin: 02/19/19 09:01 Dose: 1 amp Amino Acids (Prosource No Carb Liquid Pkt) 30 ml PO BID@0800,1730 [facility] Last Admin: 02/19/19 09:02 Dose: Not Given Buspirone HCl (Buspar -) 5 mg PO BID [facility] Last Admin: 02/19/19 09:29 Dose: 5 mg Calcitriol (Rocaltrol -) 0.75 mcg PO TID [facility] Last Admin: 02/19/19 07:02 Dose: 0.75 mcg Digoxin (Lanoxin -) 0.0625 mg PO DAILY [facility] Last Admin: 02/19/19 09:29 Dose: 0.0625 mg Docusate Sodium (Colace -) 300 mg PO HS [facility] Fludrocortisone Acetate (Florinef -) 0.2 mg PO DAILY [facility] Last Admin: 02/19/19 09:29 Dose: 0.2 mg Insulin Aspart (Novolog Vial Sliding Scale -) 1 vial SQ [facility]; Protocol Last Admin: 02/19/19 11:12 Dose: Not Given Levalbuterol HCl (Xopenex) 0.31 mg IH Q8H PRN PRN Reason: ASTHMA Levothyroxine Sodium (Synthroid -) 25 mcg PO DAILY@0700 [facility] Last Admin: 02/19/19 07:16 Dose: 25 mcg Melatonin (Melatonin) 5 mg PO [facility] Midodrine (Proamatine -) 10 mg PO Q8H PRN PRN Reason: HYPOTENSION Last Admin: 02/19/19 09:37 Dose: 10 mg Pantoprazole Sodium (Protonix -) 40 mg PO DAILY [facility] Last Admin: 02/19/19 09:30 Dose: 40 mg Rivaroxaban (Xarelto) 15 mg PO DAILY@1800 [facility] Sertraline HCl (Zoloft -) 50 mg PO DAILY [facility] Last Admin: 02/19/19 09:30 Dose: 50 mg - Objective Vital Signs: Vital Signs Temperature 98.4 F 02/19/19 10:02 Pulse Rate 89 02/19/19 10:02 Respiratory Rate 16 02/19/19 10:02 Blood Pressure 90/58 L 02/19/19 10:02 O2 Sat by Pulse Oximetry (%) 100 09/07/19 10:02 Labs: CBC, BMP 02/19/19 10:40 INR, PTT INR 2.18 (0.83-1.09) H 02/18/19 22:25 Problem List - Problems (1) Acute respiratory failure Assessment/Plan: -admit to [facility]CU -abg -c/w bipap for now -pulse oximetry -echo -c/w home dose digoxin, send am level -pulm consult -bronchodilators Code(s): J96.00 - ACUTE RESPIRATORY FAILURE, UNSP W HYPOXIA OR HYPERCAPNIA Qualifiers: Respiratory failure complication: hypoxia Qualified Code(s): J96.01 - Acute respiratory failure with hypoxia (2) Afib Assessment/Plan: and hx of PE -c/w Xarelto 15mg po daily # Code(s): I48.91 - UNSPECIFIED ATRIAL FIBRILLATION (3) ESRD on hemodialysis Assessment/Plan: -renal consult for HD -i/o -daily weights Code(s): N18.6 - END STAGE RENAL DISEASE; Z99.2 - DEPENDENCE ON RENAL DIALYSIS (4) Hypotension Assessment/Plan: -Add Vasopressin - continue midodrine, florinef -ID Code(s): I95.9 - HYPOTENSION, UNSPECIFIED Qualifiers: Hypotension type: unspecified hypotension type Qualified Code(s): I95.9 - Hypotension, unspecified
[2019-02-19 11:49] LABS: ALBUMIN 3.1 g/dl (3.4-5.0); ALK PHOS 142 U/L (45-117); ANION GAP 14 MMOL/L (8-16); BILIRUBIN,TOTAL 0.5 mg/dL (0.2-1); BLOOD UREA NITROGEN 26.8 mg/dL (7-18); CALCIUM 8.3 mg/dL (8.5-10.1); CHLORIDE 101 mmol/L (98-107); CO2 22 mmol/L (21-32); CREATININE 2.7 mg/dL (0.55-1.3); GLUCOSE,RANDOM 87 mg/dL (74-106); MAGNESIUM 2.1 mg/dL (1.8-2.4); N-TERMINAL BNP > 175000.0 pg/ml (5-125); POTASSIUM 3.9 mmol/L (3.5-5.1); SGOT/AST 23 U/L (15-37); SGPT/ALT 19 U/L (13-61); SODIUM 137 mmol/L (136-145); TOT PROT 6.8 g/dl (6.4-8.2)
[2019-02-19] MEDS ORDERED: NOREPINEPHRINE BITARTRATE 4,000 MCG in DEXTROSE 5%-WATER - 496 ML IV SCH (12:45)
[2019-02-19] MEDS: SODIUM CHLORIDE 1,000 ML IV SCH (13:54)
[2019-02-19] MEDS ORDERED: methylPREDNISolone NA SUCC 40 MG/1 ML VIAL ONE (13:56)
[2019-02-19] MEDS: methylPREDNISolone NA SUCC 40 MG/1 ML VIAL IVPUSH SCH ×5 (13:56→22:30)
--- NOTE | 2019-02-19 14:36 | CON.PULM ---
Consult Consult Specialty:: PULMONARY Referred by:: SIERRA Reason for Consultation:: SOB - History of Present Illness Chief Complaint: SOB/COUGH History of Present Illness: 73y/o F well known to this institution, h/o COPD and recent admission where presented intubated for acute respiratory failure, diagnosed with pna and treated, discharged 02/16 presents now with recurrent and progressive difficulty breathing with acute respiratory distress. found by EMS, initially well then acute distress/hypoxia consistent with phlegm/ mucous plugging. Arrived in the ED with nrb in place o2 sats in 90s but in moderate distress, coughing up phlegm. Placed on bipap and suctioned with marked improvement and less work of breathing , sats remained normal on bipap. I have seen the patient in the ED, she is on bipap. - History Source History Provided By: Patient, Medical Record Limitations to Obtaining History: Clinical Condition - Past Medical History Cardio/Vascular: Yes: AFIB, CHF, Deep Vein Thrombosis Pulmonary: Yes: Bronchitis, Pneumonia, Previously Intubated, Pulmonary Embolus, Sleep Apnea Gastrointestinal: Yes: GERD Renal/: Yes: Hemodialysis Endocrine: Yes: Diabetes Mellitus - Alcohol/Substance Use Hx Alcohol Use: No - Smoking History Smoking history: Unknown if ever smoked Have you smoked in the past 12 months: No - Social History ADL: Support Services History of Recent Travel: No Home Medications - Allergies Allergies/Adverse Reactions: Allergies Allergy/AdvReac Type Severity Reaction Status Date / Time No Known Allergies Allergy Unverified 01/19/19 11:43 - Home Medications Home Medications: Ambulatory Orders Acetaminophen [8Hr Muscle Aches-Pain] 650 mg PO PRN PRN 02/19/19 Ammonium Lactate Lotion [Lac-Hydrin 12% Lotion -] 1 applic TP BID 02/19/19 Bacitracin - [Bacitracin Topical Ointment -] 1 applic TP BID 02/19/19 Buspirone HCl [Buspar -] 5 mg PO BID 02/19/19 Calcitriol [Rocaltrol -] 0.25 mcg PO DAILY 02/19/19 Collagenase Clostridium Hist. [Santyl] 1 applic TP DAILY 02/19/19 Digoxin [Lanoxin] 125 mcg PO DAILY PRN 02/19/19 Fludrocortisone Acetate [Florinef -] 0.1 mg PO DAILY 02/19/19 Guaifenesin/Dextromethorphan [Robitussin Cough-Chest Dm Liq] 237 ml PO PRN PRN 02/19/19 Hydrocortisone Acetate [Anusol Hc Suppository -] 25 mg RC PRN PRN 02/19/19 Ipratropium/Albuterol Sulfate [Iprat-Albut 0.5-3(2.5) mg/3 ml] 3 ml IH Q4H PRN 02/19/19 Levothyroxine [Synthroid -] 50 mcg PO DAILY 02/19/19 Lidocaine/Prilocaine Cream [Emla -] 1 applic TP Q4H 02/19/19 Melatonin 5 mg PO DAILY 02/19/19 Midodrine HCl 10 mg PO Q8H 02/19/19 Nystatin Ointment [Mycostatin Ointment -] 1 applic TP BID 02/19/19 Ondansetron [Zofran -] 4 mg PO PRN PRN 02/19/19 Pantoprazole Sodium [Protonix] 40 mg PO DAILY 02/19/19 Rivaroxaban [Xarelto] 15 mg PO DAILY 02/19/19 Sennosides [Senna] 8.6 mg PO HS 02/19/19 Sertraline HCl [Zoloft -] 50 mg PO DAILY 02/19/19 Silver Sulfadiazine [Silvadene] 1 applic TP DAILY 02/19/19 Vitamin B Comp W-C [Nephro-Evert -] 1 tablet PO DAILY 02/19/19 Zinc Oxide 20% Topical Oint 454 gm TD BID 02/19/19 Zinc Sulfate [Orazinc] 220 mg PO DAILY 02/19/19 Family Disease History - Family Disease History Family History: Unremarkable Review of Systems - Review of Systems Constitutional: reports: Fever, Loss of Appetite HENT: denies: Difficult Swallowing Neck: denies: Decreased ROM Cardiovascular: denies: Chest Pain Respiratory: reports: Cough, Exercise Intolerance, Orthopnea, SOB, SOB on Exertion, Wheezing Gastrointestinal: denies: Abdominal Pain Genitourinary: denies: Burning Physical Exam Vital Sings: Vital Signs Temperature 98.4 F 02/19/19 10:02 Pulse Rate 79 02/19/19 14:00 Respiratory Rate 16 02/19/19 14:00 Blood Pressure 114/59 L 02/19/19 14:00 O2 Sat by Pulse Oximetry (%) 96 02/19/19 14:00 Constitutional: Yes: Anxious Eyes: Yes: EOM Intact HENT: Yes: Normocephalic Neck: Yes: Trachea Midline Cardiovascular: Yes: S1, S2 Respiratory: Yes: Rhonchi (bilaterally) Gastrointestinal: Yes: Soft, Abdomen, Obese Edema: LLE: 1+, RLE: 1+ Neurological: Yes: Alert Labs: CBC, BMP 02/19/19 10:40 02/19/19 10:40 rest reviewed Imaging - Results Chest X-ray: Report Reviewed, Image Reviewed Problem List - Problems (1) Mucus plugging of bronchi Code(s): J98.09 - OTHER DISEASES OF BRONCHUS, NOT ELSEWHERE CLASSIFIED (2) Shortness of breath Code(s): R06.02 - SHORTNESS OF BREATH (3) Acute exacerbation of congestive heart failure Code(s): I50.9 - HEART FAILURE, UNSPECIFIED (4) Acute on chronic respiratory failure with hypoxia and hypercapnia Code(s): J96.21 - ACUTE AND CHRONIC RESPIRATORY FAILURE WITH HYPOXIA; J96.22 - ACUTE AND CHRONIC RESPIRATORY FAILURE WITH HYPERCAPNIA (5) Afib Code(s): I48.91 - UNSPECIFIED ATRIAL FIBRILLATION (6) ESRD on hemodialysis Code(s): N18.6 - END STAGE RENAL DISEASE; Z99.2 - DEPENDENCE ON RENAL DIALYSIS Assessment/Plan VIGOROUS SUCTIONING CONTINUE NIPPV NEEDED NEBS TO FACILITATE MUCOUS CLEARANCE GLYCEMIC CONTROL/DVT PROPHYLAXSIS TAPER IV MEDROL CLOSE MONITORING WILL FOLLOW Melba MOSQUEDA MD
--- NOTE | 2019-02-19 15:30 | CON.NEP ---
Consult Consult Specialty:: nephrology Reason for Consultation:: esrd - History of Present Illness Chief Complaint: dysopnea History of Present Illness: This is a 73 year old woman with a history of esrd, thrombosed right avf, chf, pneumonia, copd, anemia, who presents with dyspnea. She was recently discharged from this institution and is here frequently with chf mainly because her bp drops and she does not get adequate ultrafiltration with hemodialysis. She is awake and alert and is able to speak clearly - History Source History Provided By: Patient, Medical Record Limitations to Obtaining History: No Limitations - Past Medical History Cardio/Vascular: Yes: AFIB, CHF, Deep Vein Thrombosis Pulmonary: Yes: Bronchitis, Pneumonia, Previously Intubated, Pulmonary Embolus, Sleep Apnea Gastrointestinal: Yes: GERD Renal/: Yes: Hemodialysis Endocrine: Yes: Diabetes Mellitus - Alcohol/Substance Use Hx Alcohol Use: No - Smoking History Smoking history: Unknown if ever smoked Have you smoked in the past 12 months: No - Social History ADL: Support Services History of Recent Travel: No Home Medications - Allergies Allergies/Adverse Reactions: Allergies Allergy/AdvReac Type Severity Reaction Status Date / Time No Known Allergies Allergy Unverified 01/19/19 11:43 - Home Medications Home Medications: Ambulatory Orders Acetaminophen [8Hr Muscle Aches-Pain] 650 mg PO PRN PRN 02/19/19 Ammonium Lactate Lotion [Lac-Hydrin 12% Lotion -] 1 applic TP BID 02/19/19 Bacitracin - [Bacitracin Topical Ointment -] 1 applic TP BID 02/19/19 Buspirone HCl [Buspar -] 5 mg PO BID 02/19/19 Calcitriol [Rocaltrol -] 0.25 mcg PO DAILY 02/19/19 Collagenase Clostridium Hist. [Santyl] 1 applic TP DAILY 02/19/19 Digoxin [Lanoxin] 125 mcg PO DAILY PRN 02/19/19 Fludrocortisone Acetate [Florinef -] 0.1 mg PO DAILY 02/19/19 Guaifenesin/Dextromethorphan [Robitussin Cough-Chest Dm Liq] 237 ml PO PRN PRN 02/19/19 Hydrocortisone Acetate [Anusol Hc Suppository -] 25 mg RC PRN PRN 02/19/19 Ipratropium/Albuterol Sulfate [Iprat-Albut 0.5-3(2.5) mg/3 ml] 3 ml IH Q4H PRN 02/19/19 Levothyroxine [Synthroid -] 50 mcg PO DAILY 02/19/19 Lidocaine/Prilocaine Cream [Emla -] 1 applic TP Q4H 02/19/19 Melatonin 5 mg PO DAILY 02/19/19 Midodrine HCl 10 mg PO Q8H 02/19/19 Nystatin Ointment [Mycostatin Ointment -] 1 applic TP BID 02/19/19 Ondansetron [Zofran -] 4 mg PO PRN PRN 02/19/19 Pantoprazole Sodium [Protonix] 40 mg PO DAILY 02/19/19 Rivaroxaban [Xarelto] 15 mg PO DAILY 02/19/19 Sennosides [Senna] 8.6 mg PO HS 02/19/19 Sertraline HCl [Zoloft -] 50 mg PO DAILY 02/19/19 Silver Sulfadiazine [Silvadene] 1 applic TP DAILY 02/19/19 Vitamin B Comp W-C [Nephro-Evert -] 1 tablet PO DAILY 02/19/19 Zinc Oxide 20% Topical Oint 454 gm TD BID 02/19/19 Zinc Sulfate [Orazinc] 220 mg PO DAILY 02/19/19 Review of Systems - Review of Systems Constitutional: reports: Weakness Eyes: reports: No Symptoms HENT: reports: No Symptoms Neck: reports: No Symptoms Cardiovascular: reports: Shortness of Breath Respiratory: reports: Cough, SOB, SOB on Exertion Gastrointestinal: reports: No Symptoms Genitourinary: reports: No Symptoms Breasts: reports: No Symptoms Reported Musculoskeletal: reports: No Symptoms Integumentary: reports: No Symptoms Neurological: reports: No Symptoms Endocrine: reports: No Symptoms Hematology/Lymphatic: reports: No Symptoms Psychiatric: reports: No Symptoms Nephrology Consult - Height Height: 5 ft 2 in - Weight Weight: 160 lb - BMI Body Mass Index (BMI): 29.2 - Lab Results CBC,BMP: CBC, BMP 02/19/19 10:40 02/19/19 10:40 Anion Gap: Anion Gap Anion Gap 14 MMOL/L (8-16) 02/19/19 10:40 - Imaging Chest X-ray: Report Reviewed - Physical Examination Vital Signs: Vital Signs Temperature 98.4 F 09/07/19 10:02 Pulse Rate 79 02/19/19 14:00 Respiratory Rate 16 02/19/19 14:00 Blood Pressure 114/59 L 02/19/19 14:00 O2 Sat by Pulse Oximetry (%) 96 02/19/19 14:00 Constitutional: Yes: Well Nourished, No Distress, Calm Eyes: Yes: Conjunctiva Clear HENT: Yes: Atraumatic, Normocephalic Neck: Yes: Supple, Trachea Midline Cardiovascular: Yes: Pulse Irregular Gastrointestinal: Yes: Normal Bowel Sounds Access for Hemodialysis: Permacath Edema: Yes Edema: LLE: 1+, RLE: 1+ Neurological: Yes: Alert, Oriented Psychiatric: Yes: Alert, Oriented Assessment/Plan IMPRESSION bronchitis with increased mucus production chf - chronic afib esrd dm PLAN agree with suctioning will dialyze today for some additional fluid removal will need NIPVV probably even as outpatient MV
[2019-02-19] MEDS ORDERED: SODIUM CHLORIDE 250 ML IV PRN (16:30)
[2019-02-19] MEDS ORDERED: HEPARIN NA (PORCINE) 5,000 UNITS/ML 1ML VIAL IVPUSH ONE (16:30)
[2019-02-19] MEDS ORDERED: RIVAROXABAN 15 MG TABLET PO SCH (18:00)
[2019-02-19] MEDS ORDERED: MELATONIN 5 MG TABLETS PO SCH (22:00)
[2019-02-19] MEDS ORDERED: DOCUSATE SODIUM 100 MG CAPSULE (FP) PO SCH (22:00)
[2019-02-19] MEDS ORDERED: MUPIROCIN 2% TOPICAL OINTMENT FOR DECOLONIZATION NS SCH (22:00)
[2019-02-19] MEDS ORDERED: CHLORHEXIDINE GLUCONATE 4% CLEANSER FOR DECOLONIZATION TP SCH (22:00)
[2019-02-20] MEDS ORDERED: PT OWN MED DRAWER 7, Y5N ONE ×3 (01:45→13:58)
[2019-02-20] MEDS: methylPREDNISolone NA SUCC 40 MG/1 ML VIAL IVPUSH SCH ×4 (03:00→21:50)
[2019-02-20] MEDS: CALCITRIOL 0.25 MCG CAPSULE (FP) PO SCH ×3 (06:33→21:50)
[2019-02-20] MEDS: LEVOTHYROXINE NA 25 MCG TABLET (FP) PO SCH (06:33)
[2019-02-20] MEDS: INSULIN SLIDING SCALE (NOVOLOG) 1 VIAL SQ SCH ×4 (06:45→22:05)
[2019-02-20] MEDS: ALBUTEROL SO4 2.5/IPRATROPIUM 0.5 INH SOL 3 ML VIAL.NEB. NEB SCH ×4 (07:20→20:25)
--- NOTE | 2019-02-20 09:42 | PN ---
Progress Note (short form) - Note Progress Note: RENAL Pt awake and alert comfortable without bipap had hd yesterday and says she did not feel different though she appears better wants to be dialyzed again tomorrow Last Vital Signs Temp Pulse Resp BP Pulse Ox 99.1 F 93 H 18 121/65 97 02/20/19 06:00 02/20/19 06:00 02/20/19 06:00 02/20/19 06:00 02/20/19 08:38 lungs decreased breath sounds cvs s1s2 rr abd soft ext +edema of upper extremities not lower extremities neuro a+o CBC, BMP 02/19/19 10:40 02/19/19 10:40 Current Medications Generic Name Dose Route Start Last Admin Trade Name Freq PRN Reason Stop Dose Admin Albuterol/Ipratropium 1 amp 02/20/19 08:00 02/20/19 07:20 Duoneb - NEB 1 amp RQID [facility] Administration Amino Acids 30 ml 02/20/19 08:00 Prosource No Carb Liquid Pkt PO BID@0800,1730 [facility] Buspirone HCl 5 mg 02/20/19 10:00 Buspar - PO BID [facility] Calcitriol 0.75 mcg 02/20/19 06:00 02/20/19 06:33 Rocaltrol - PO 0.75 mcg TID [facility] Administration Digoxin 0.0625 mg 02/20/19 10:00 Lanoxin - PO DAILY [facility] Docusate Sodium 300 mg 02/20/19 22:00 Colace - PO HS [facility] Fludrocortisone Acetate 0.2 mg 02/20/19 10:00 Florinef - PO DAILY [facility] Sodium Chloride 1,000 mls @ 75 mls/hr 02/19/19 12:30 02/19/19 13:54 Normal Saline - IV Not Given ASDIR NAHEED Sodium Chloride 250 mls @ 3,000 mls/hr 02/19/19 16:30 Normal Saline - IV 02/20/19 16:29 PRN PRN Hypotension during Dialysis Insulin Aspart 1 vial 02/20/19 07:00 02/20/19 06:45 Novolog Vial Sliding Scale - SQ 2 units ACHS [facility] Administration Protocol Levalbuterol HCl 0.31 mg 02/19/19 22:57 Xopenex IH Q8H PRN ASTHMA Levothyroxine Sodium 25 mcg 02/20/19 07:00 02/20/19 06:33 Synthroid - PO 25 mcg DAILY@0700 [facility] Administration Melatonin 5 mg 02/20/19 22:00 Melatonin PO HS [facility] Methylprednisolone Sodium Succinate 40 mg 02/19/19 12:45 02/20/19 03:00 Solu-Medrol - IVPUSH 40 mg Q6H-IV [facility] Administration Midodrine 10 mg 02/19/19 22:57 Proamatine - PO Q8H PRN HYPOTENSION Pantoprazole Sodium 40 mg 02/20/19 10:00 Protonix - PO DAILY [facility] Rivaroxaban 15 mg 02/20/19 18:00 Xarelto PO DAILY@1800 [facility] Sertraline HCl 50 mg 02/20/19 10:00 Zoloft - PO DAILY [facility] IMPRESSION esrd afib dementia hypotension limits hd mucus plugging PLAN chest PT will dialyze again tomorrow If possible would dc digoxin given increased mortality in esrd MV
[2019-02-20] MEDS ORDERED: HEPARIN NA (PORCINE) 5,000 UNITS/ML 1ML VIAL IVPUSH ONE (09:44)
[2019-02-20] MEDS ORDERED: SODIUM CHLORIDE 250 ML IV PRN (09:44)
[2019-02-20] MEDS: PANTOPRAZOLE 40 MG TABLET (FP) PO SCH (10:26)
[2019-02-20] MEDS: SERTRALINE HCL 50 MG TABLET (FP) PO SCH (10:26)
[2019-02-20] MEDS: FLUDROCORTISONE ACETATE 0.1 MG TABLET (FP) PO SCH (10:26)
[2019-02-20] MEDS: DIGOXIN 0.125 MG TABLET (FP) PO SCH (10:26)
[2019-02-20] MEDS: AMINO ACIDS/PROTEIN HYDROLYS 30 ML LIQUID.PKT PO SCH ×2 (10:57→17:26)
[2019-02-20] MEDS: busPIRone HCL 5 MG TABLET PO SCH ×2 (10:58→21:50)
--- NOTE | 2019-02-20 11:26 | PN ---
Progress Note (short form) - Note Progress Note: ID consult dictated 73 yo female with ESRD/HD, just discharged 02/17 to MD after admissiion for respiratory failure admitted with sob, hypoxia, improved with vigorous suctioning no fevers n leukocytosis baseline abnl cxray with congestion/effusions she is alert on bipap hypoxia and sob- suspect this is mucous plugging/COPD/volume overload she feels better after HD doubt pneumonia continue to observe off antibioitics Problem List - Problems (1) Hypoxia Code(s): R09.02 - HYPOXEMIA (2) Shortness of breath Code(s): R06.02 - SHORTNESS OF BREATH (3) ESRD on hemodialysis Code(s): N18.6 - END STAGE RENAL DISEASE; Z99.2 - DEPENDENCE ON RENAL DIALYSIS (4) Mucus plugging of bronchi Code(s): J98.09 - OTHER DISEASES OF BRONCHUS, NOT ELSEWHERE CLASSIFIED
--- NOTE | 2019-02-20 11:58 | PN ---
Progress Note, Physician - Current Medication List Current Medications: Active Medications Albuterol/Ipratropium (Duoneb -) 1 amp NEB RQID [facility] Last Admin: 02/20/19 11:20 Dose: 1 amp Amino Acids (Prosource No Carb Liquid Pkt) 30 ml PO BID@0800,1730 [facility] Last Admin: 02/20/19 10:57 Dose: 30 ml Buspirone HCl (Buspar -) 5 mg PO BID [facility] Last Admin: 02/20/19 10:58 Dose: 5 mg Calcitriol (Rocaltrol -) 0.75 mcg PO TID [facility] Last Admin: 02/20/19 06:33 Dose: 0.75 mcg Digoxin (Lanoxin -) 0.0625 mg PO DAILY [facility] Last Admin: 02/20/19 10:26 Dose: 0.0625 mg Docusate Sodium (Colace -) 300 mg PO [facility] Fludrocortisone Acetate (Florinef -) 0.2 mg PO DAILY [facility] Last Admin: 02/20/19 10:26 Dose: 0.2 mg Sodium Chloride (Normal Saline -) 1,000 mls @ 75 mls/hr IV ASDIR [facility] Last Admin: 02/19/19 13:54 Dose: Not Given Sodium Chloride (Normal Saline -) 250 mls @ 3,000 mls/hr IV PRN PRN PRN Reason: Hypotension during Dialysis Stop: 02/20/19 16:29 Sodium Chloride (Normal Saline -) 250 mls @ 3,000 mls/hr IV PRN PRN PRN Reason: Hypotension during Dialysis Stop: 02/21/19 09:44 Insulin Aspart (Novolog Vial Sliding Scale -) 1 vial SQ [facility]; Protocol Last Admin: 02/20/19 06:45 Dose: 2 units Levalbuterol HCl (Xopenex) 0.31 mg IH Q8H PRN PRN Reason: ASTHMA Levothyroxine Sodium (Synthroid -) 25 mcg PO DAILY@0700 [facility] Last Admin: 02/20/19 06:33 Dose: 25 mcg Melatonin (Melatonin) 5 mg PO HS [facility] Methylprednisolone Sodium Succinate (Solu-Medrol -) 40 mg IVPUSH Q6H-IV [facility] Last Admin: 02/20/19 10:57 Dose: 40 mg Midodrine (Proamatine -) 10 mg PO Q8H PRN PRN Reason: HYPOTENSION Pantoprazole Sodium (Protonix -) 40 mg PO DAILY [facility] Last Admin: 02/20/19 10:26 Dose: 40 mg Rivaroxaban (Xarelto) 15 mg PO DAILY@1800 [facility] Sertraline HCl (Zoloft -) 50 mg PO DAILY [facility] Last Admin: 02/20/19 10:26 Dose: 50 mg - Objective Vital Signs: Vital Signs Temperature 98.6 F 02/20/19 09:00 Pulse Rate 94 H 02/20/19 10:26 Respiratory Rate 18 02/20/19 09:00 Blood Pressure 142/65 02/20/19 09:00 O2 Sat by Pulse Oximetry (%) 97 02/20/19 11:33 Cardiovascular: Yes: S1, S2 Respiratory: Yes: On BiPap Gastrointestinal: Yes: Normal Bowel Sounds, Soft Labs: CBC, BMP 02/19/19 10:40 02/19/19 10:40 INR, PTT INR 2.18 (0.83-1.09) H 02/18/19 22:25 Problem List - Problems (1) Acute respiratory failure Assessment/Plan: -c/w bipap for now -pulse oximetry -echo -c/w home dose digoxin, send am level -pulm consult -bronchodilators Code(s): J96.00 - ACUTE RESPIRATORY FAILURE, UNSP W HYPOXIA OR HYPERCAPNIA Qualifiers: Respiratory failure complication: hypoxia Qualified Code(s): J96.01 - Acute respiratory failure with hypoxia (2) Afib Assessment/Plan: and hx of PE -c/w Xarelto 15mg po daily # Code(s): I48.91 - UNSPECIFIED ATRIAL FIBRILLATION (3) ESRD on hemodialysis Assessment/Plan: -renal consult for HD -i/o -daily weights Code(s): N18.6 - END STAGE RENAL DISEASE; Z99.2 - DEPENDENCE ON RENAL DIALYSIS (4) Hypotension Assessment/Plan: -Improved - continue midodrine, florinef -ID Code(s): I95.9 - HYPOTENSION, UNSPECIFIED Qualifiers: Hypotension type: unspecified hypotension type Qualified Code(s): I95.9 - Hypotension, unspecified
--- NOTE | 2019-02-20 12:09 | PN ---
Progress Note (short form) - Note Progress Note: PULMONARY AWAKE/ALERT REMAINS ON BIPAP VSS/AFEBRILE Constitutional: Yes: Anxious Eyes: Yes: EOM Intact HENT: Yes: Normocephalic Neck: Yes: Trachea Midline Cardiovascular: Yes: S1, S2 Respiratory: Yes: Rhonchi (bilaterally) Gastrointestinal: Yes: Soft, Abdomen, Obese Edema: LLE: 1+, RLE: 1+ Neurological: Yes: Alert Labs: REVIEWED BNP:175,000 Imaging - Results Chest X-ray: Report Reviewed, Image Reviewed Problem List - Problems (1) Mucus plugging of bronchi Code(s): J98.09 - OTHER DISEASES OF BRONCHUS, NOT ELSEWHERE CLASSIFIED (2) Shortness of breath Code(s): R06.02 - SHORTNESS OF BREATH (3) Acute exacerbation of congestive heart failure Code(s): I50.9 - HEART FAILURE, UNSPECIFIED (4) Acute on chronic respiratory failure with hypoxia and hypercapnia Code(s): J96.21 - ACUTE AND CHRONIC RESPIRATORY FAILURE WITH HYPOXIA; J96.22 - ACUTE AND CHRONIC RESPIRATORY FAILURE WITH HYPERCAPNIA (5) Afib Code(s): I48.91 - UNSPECIFIED ATRIAL FIBRILLATION (6) ESRD on hemodialysis Code(s): N18.6 - END STAGE RENAL DISEASE; Z99.2 - DEPENDENCE ON RENAL DIALYSIS SUGGEST CARDIO EVAL/TRIAL OF LASIX/FLUID MANAGEMENT VIGOROUS SUCTIONING CONTINUE NIPPV NEEDED NEBS TO FACILITATE MUCOUS CLEARANCE GLYCEMIC CONTROL/DVT PROPHYLAXSIS TAPER IV MEDROL CLOSE MONITORING Melba MOSQUEDA MD Problem List - Problems (1) Mucus plugging of bronchi Code(s): J98.09 - OTHER DISEASES OF BRONCHUS, NOT ELSEWHERE CLASSIFIED (2) Shortness of breath Code(s): R06.02 - SHORTNESS OF BREATH (3) Acute exacerbation of congestive heart failure Code(s): I50.9 - HEART FAILURE, UNSPECIFIED (4) Acute on chronic respiratory failure with hypoxia and hypercapnia Code(s): J96.21 - ACUTE AND CHRONIC RESPIRATORY FAILURE WITH HYPOXIA; J96.22 - ACUTE AND CHRONIC RESPIRATORY FAILURE WITH HYPERCAPNIA (5) Afib Code(s): I48.91 - UNSPECIFIED ATRIAL FIBRILLATION (6) ESRD on hemodialysis Code(s): N18.6 - END STAGE RENAL DISEASE; Z99.2 - DEPENDENCE ON RENAL DIALYSIS
[2019-02-20] MEDS: SODIUM CHLORIDE 1,000 ML IV SCH (14:21)
--- NOTE | 2019-02-20 15:26 | CONS ---
DATE OF CONSULTATION: DATE OF DICTATION: 02/20/2019 This is a 73-year-old woman [facility]. She was just in the hospital, multiple admissions since September of this year. Recently in the hospital from January 26 to February 17. At that time, she was admitted with worsening shortness of breath and she was found to be unresponsive and hypotensive at dialysis and during the last admission she was intubated and successfully extubated. During that admission, she got a 7-day course of Zosyn. She is now re-admitted with shortness of breath, requiring BiPAP. She has had no fevers or chills. She has end-stage renal disease and is on dialysis. Her clinical status in the emergency room improved with vigorous suctioning and she is currently being treated with steroids and dialysis. She received dialysis yesterday and is scheduled to repeat in the morning. She reports feeling improved after her hemodialysis. Her past medical history is notable for end-stage renal disease, on dialysis, heart failure. She has a femoral dialysis catheter. She apparently has clots in her upper extremities and they cannot place any access. She has a history of DVT, CO2 retention, anemia, atrial fibrillation, diabetes, hypothyroidism, and depression, as well as orthostatic hypotension. She has a history of acute respiratory failure requiring intubation on her prior admission. That admission, she required Levophed for hypotension as well. She has no known drug allergies. Her medications include Nephro-Evert, Zoloft, senna, Xarelto, Protonix, Zofran, midodrine, melatonin, Synthroid, cough syrup, Florinef, Lanoxin, BuSpar. SOCIAL HISTORY: She [facility] in [facility] jail and she has a daughter involved in her care. There is no history of any cigarette, alcohol, or substance use. REVIEW OF SYSTEMS: She reports her breathing has improved. She denies any fevers or chills. PHYSICAL EXAMINATION: General: An elderly woman on BiPAP. She is alert and speaking. Vital Signs: Temperature is 98.6. Pulse is 94. Blood pressure 142/65. She is saturating 100% on BiPAP. HEENT: Normocephalic. Cannot evaluate her mouth due to BiPAP mask. Upper Extremities: She has chronic swelling of both her arms, which she has had on prior admissions. Lungs: Diminished breath sounds at the bases. Heart: Regular rate and rhythm. Abdomen: Soft, nontender. Extremities: She has a right-sided femoral dialysis catheter. Her labs are notable for a white count of 4.4, hemoglobin 9.7, platelets 116. Chemistries: BUN 26, creatinine 2.7. Her BNP was greater than 17,500. LFTs notable for an alkaline phosphatase of 142. Blood cultures are pending. Chest x-ray reveals bilateral congestion and probable effusion. In summary, this is a 73-year-old woman who has evidence of worsening respiratory status that I suspect is due to mucous plugging, COPD, and volume overload, does not seem to suggest at this time that she has a pulmonary infection. Would continue to dialyze her aggressively and treat her COPD and volume overload, and would continue to observe her off antibiotics. MURPHY DAILEY M.D. JESSICA/[id number]
--- NOTE | 2019-02-20 17:01 | EKG ---
Test Reason : Blood Pressure : / mmHG Vent. Rate : 089 BPM Atrial Rate : 097 BPM P-R Int : 000 ms QRS Dur : 106 ms QT Int : 374 ms P-R-T Axes : 000 170 000 degrees QTc Int : 455 ms SUSPECT ARM LEAD REVERSAL, INTERPRETATION ASSUMES NO REVERSAL ATRIAL FIBRILLATION POSSIBLE RIGHT VENTRICULAR HYPERTROPHY INFERIOR INFARCT (CITED ON OR BEFORE 28-JAN-2019) ANTEROLATERAL INFARCT (CITED ON OR BEFORE 28-JAN-2019) ABNORMAL ECG WHEN COMPARED WITH ECG OF 28-JAN-2019 15:40, ST NO LONGER DEPRESSED IN ANTEROLATERAL LEADS NONSPECIFIC T WAVE ABNORMALITY NO LONGER EVIDENT IN ANTERIOR LEADS QT HAS LENGTHENED Confirmed by RASHEL BROCK MD ([id number]) on 02/20/2019 5:01:29 PM Referred By: Confirmed By:RASHEL BROCK MD
[2019-02-20] MEDS: RIVAROXABAN 15 MG TABLET PO SCH (17:41)
[2019-02-20] MEDS: DOCUSATE SODIUM 100 MG CAPSULE (FP) PO SCH (21:49)
[2019-02-20] MEDS: MELATONIN 5 MG TABLETS PO SCH (21:50)
[2019-02-21] MEDS: methylPREDNISolone NA SUCC 40 MG/1 ML VIAL IVPUSH SCH ×2 (02:26→10:18)
[2019-02-21] MEDS ORDERED: PT OWN MED DRAWER 7, Y5N ONE ×3 (06:10→22:21)
[2019-02-21] MEDS: LEVOTHYROXINE NA 25 MCG TABLET (FP) PO SCH (06:13)
[2019-02-21] MEDS: CALCITRIOL 0.25 MCG CAPSULE (FP) PO SCH ×3 (06:13→22:34)
[2019-02-21] MEDS: INSULIN SLIDING SCALE (NOVOLOG) 1 VIAL SQ SCH ×4 (06:20→22:35)
[2019-02-21] MEDS: ALBUTEROL SO4 2.5/IPRATROPIUM 0.5 INH SOL 3 ML VIAL.NEB. NEB SCH ×4 (08:00→20:15)
[2019-02-21] MEDS: busPIRone HCL 5 MG TABLET PO SCH ×2 (10:33→22:34)
[2019-02-21] MEDS: DIGOXIN 0.125 MG TABLET (FP) PO SCH (10:33)
[2019-02-21] MEDS: AMINO ACIDS/PROTEIN HYDROLYS 30 ML LIQUID.PKT PO SCH ×2 (10:33→18:05)
[2019-02-21] MEDS: FLUDROCORTISONE ACETATE 0.1 MG TABLET (FP) PO SCH (10:33)
[2019-02-21] MEDS: PANTOPRAZOLE 40 MG TABLET (FP) PO SCH (10:33)
[2019-02-21] MEDS: SERTRALINE HCL 50 MG TABLET (FP) PO SCH (10:33)
--- NOTE | 2019-02-21 11:25 | PN ---
Progress Note, Physician Chief Complaint: Mucoid Impaction of Bronchi Acute on Chronic Respiratory Failure COPD ESRD History of Present Illness: Previous notes and events reviewed awake and alert NAD on Bipap machine sts breathing is better on Bipap - Current Medication List Current Medications: Active Medications Albuterol/Ipratropium (Duoneb -) 1 amp NEB RQID [facility] Last Admin: 02/21/19 08:00 Dose: 1 amp Amino Acids (Prosource No Carb Liquid Pkt) 30 ml PO BID@0800,1730 [facility] Last Admin: 02/21/19 10:33 Dose: 30 ml Buspirone HCl (Buspar -) 5 mg PO BID [facility] Last Admin: 02/21/19 10:33 Dose: 5 mg Calcitriol (Rocaltrol -) 0.75 mcg PO TID [facility] Last Admin: 02/21/19 06:13 Dose: 0.75 mcg Digoxin (Lanoxin -) 0.0625 mg PO DAILY [facility] Last Admin: 02/21/19 10:33 Dose: 0.0625 mg Docusate Sodium (Colace -) 300 mg PO [facility] Last Admin: 02/20/19 21:49 Dose: 300 mg Fludrocortisone Acetate (Florinef -) 0.2 mg PO DAILY [facility] Last Admin: 02/21/19 10:33 Dose: 0.2 mg Sodium Chloride (Normal Saline -) 1,000 mls @ 75 mls/hr IV ASDIR [facility] Last Admin: 02/20/19 14:21 Dose: 75 mls/hr Insulin Aspart (Novolog Vial Sliding Scale -) 1 vial SQ ACHS [facility]; Protocol Last Admin: 02/21/19 10:45 Dose: 2 units Levalbuterol HCl (Xopenex) 0.31 mg IH Q8H PRN PRN Reason: ASTHMA Levothyroxine Sodium (Synthroid -) 25 mcg PO DAILY@0700 [facility] Last Admin: 02/21/19 06:13 Dose: 25 mcg Melatonin (Melatonin) 5 mg PO HS [facility] Last Admin: 02/20/19 21:50 Dose: 5 mg Methylprednisolone Sodium Succinate (Solu-Medrol -) 40 mg IVPUSH Q6H-IV [facility] Last Admin: 02/21/19 10:18 Dose: 40 mg Midodrine (Proamatine -) 10 mg PO Q8H PRN PRN Reason: HYPOTENSION Pantoprazole Sodium (Protonix -) 40 mg PO DAILY [facility] Last Admin: 02/21/19 10:33 Dose: 40 mg Rivaroxaban (Xarelto) 15 mg PO DAILY@1800 [facility] Last Admin: 02/20/19 17:41 Dose: 15 mg Sertraline HCl (Zoloft -) 50 mg PO DAILY [facility] Last Admin: 02/21/19 10:33 Dose: 50 mg - Objective Vital Signs: Vital Signs Temperature 98.0 F 02/21/19 05:53 Pulse Rate 94 H 02/21/19 10:33 Respiratory Rate 20 02/21/19 05:53 Blood Pressure 104/72 02/21/19 05:53 O2 Sat by Pulse Oximetry (%) 98 02/21/19 08:46 Constitutional: Yes: No Distress, Calm Eyes: Yes: Conjunctiva Clear HENT: Yes: Atraumatic Cardiovascular: Yes: Regular Rate and Rhythm Respiratory: Yes: Regular, On BiPap, Rhonchi Gastrointestinal: Yes: Normal Bowel Sounds, Soft, Abdomen, Obese Genitourinary: Yes: Incontinence Musculoskeletal: Yes: Muscle Weakness Extremities: Yes: WNL Edema: Yes (RUE) Integumentary: Yes: Bruising (LUE) Neurological: Yes: Alert, Pre-Existing Deficit Psychiatric: Yes: Alert, Oriented Labs: CBC, BMP 02/19/19 10:40 02/19/19 10:40 INR, PTT INR 2.18 (0.83-1.09) H 02/18/19 22:25 Microbiology 02/19/19 16:16 Blood - Peripheral Venous Blood Culture - Preliminary NO GROWTH OBTAINED AFTER 24 HOURS, INCUBATION TO CONTINUE FOR 4 DAYS. 02/19/19 16:16 Blood - Peripheral Venous Blood Culture - Preliminary NO GROWTH OBTAINED AFTER 24 HOURS, INCUBATION TO CONTINUE FOR 4 DAYS. - ....Imaging Chest X-ray: Report Reviewed Problem List - Problems (1) Acute respiratory failure Assessment/Plan: -Pulm on board -Bipap -Keep SpO2 >90% -Xopenex -Bronchodilators -IV Medrol -CXR shows mediastinal shift to the left with widening of the mediastinum and bilateral pulmonary pleural changes left greater than right -Echocardiogram Code(s): J96.00 - ACUTE RESPIRATORY FAILURE, UNSP W HYPOXIA OR HYPERCAPNIA Qualifiers: Respiratory failure complication: hypoxia Qualified Code(s): J96.01 - Acute respiratory failure with hypoxia (2) Mucus plugging of bronchi Assessment/Plan: -Pulm on board -Bipap -Keep SpO2 >90% -Xopenex -Bronchodilators -IV Medrol -CXR shows mediastinal shift to the left with widening of the mediastinum and bilateral pulmonary pleural changes left greater than right Code(s): J98.09 - OTHER DISEASES OF BRONCHUS, NOT ELSEWHERE CLASSIFIED (3) Afib Assessment/Plan: -Xarelto -Digoxin -Echocardiogram Code(s): I48.91 - UNSPECIFIED ATRIAL FIBRILLATION (4) ESRD on hemodialysis Assessment/Plan: -Renal on board -continue HD on scheduled days -Renal diet -BUN/Cr 26.8/2.7 Code(s): N18.6 - END STAGE RENAL DISEASE; Z99.2 - DEPENDENCE ON RENAL DIALYSIS (5) Hypotension Assessment/Plan: -[place] Code(s): I95.9 - HYPOTENSION, UNSPECIFIED Qualifiers: Hypotension type: unspecified hypotension type Qualified Code(s): I95.9 - Hypotension, unspecified (6) Hypothyroid Assessment/Plan: -Levothyroxine Code(s): E03.9 - HYPOTHYROIDISM, UNSPECIFIED Assessment/Plan see problem list dvt ppx if no adverse events during the night begin d/c planning back to [facility] tomorrow
--- NOTE | 2019-02-21 11:32 | PN ---
Progress Note (short form) - Note Progress Note: PULMONARY Awake, alert on BiPAP. Saturating well. States breathing better today. Vital Signs Period Temp Pulse Resp BP Sys/Jhaveri Pulse Ox Last 24 Hr 97.2 F-99.1 F 73-95 18-20 104-118/55-72 96-98 Gen: NAD on BiPAP Heart: RRR Lung: decreased breath sounds at the bases Abd: soft, nontender Ext: + edema CBC, BMP 02/19/19 10:40 02/19/19 10:40 Active Medications Albuterol/Ipratropium (Duoneb -) 1 amp NEB RQID [facility] Last Admin: 02/21/19 08:00 Dose: 1 amp Amino Acids (Prosource No Carb Liquid Pkt) 30 ml PO BID@0800,1730 [facility] Last Admin: 02/21/19 10:33 Dose: 30 ml Buspirone HCl (Buspar -) 5 mg PO BID [facility] Last Admin: 02/21/19 10:33 Dose: 5 mg Calcitriol (Rocaltrol -) 0.75 mcg PO TID [facility] Last Admin: 02/21/19 06:13 Dose: 0.75 mcg Digoxin (Lanoxin -) 0.0625 mg PO DAILY [facility] Last Admin: 02/21/19 10:33 Dose: 0.0625 mg Docusate Sodium (Colace -) 300 mg PO HS [facility] Last Admin: 02/20/19 21:49 Dose: 300 mg Fludrocortisone Acetate (Florinef -) 0.2 mg PO DAILY [facility] Last Admin: 02/21/19 10:33 Dose: 0.2 mg Sodium Chloride (Normal Saline -) 1,000 mls @ 75 mls/hr IV ASDIR [facility] Last Admin: 02/20/19 14:21 Dose: 75 mls/hr Insulin Aspart (Novolog Vial Sliding Scale -) 1 vial SQ ACHS [facility]; Protocol Last Admin: 02/21/19 10:45 Dose: 2 units Levalbuterol HCl (Xopenex) 0.31 mg IH Q8H PRN PRN Reason: ASTHMA Levothyroxine Sodium (Synthroid -) 25 mcg PO DAILY@0700 [facility] Last Admin: 02/21/19 06:13 Dose: 25 mcg Melatonin (Melatonin) 5 mg PO HS [facility] Last Admin: 02/20/19 21:50 Dose: 5 mg Methylprednisolone Sodium Succinate (Solu-Medrol -) 40 mg IVPUSH Q6H-IV [facility] Last Admin: 02/21/19 10:18 Dose: 40 mg Midodrine (Proamatine -) 10 mg PO Q8H PRN PRN Reason: HYPOTENSION Pantoprazole Sodium (Protonix -) 40 mg PO DAILY [facility] Last Admin: 02/21/19 10:33 Dose: 40 mg Rivaroxaban (Xarelto) 15 mg PO DAILY@1800 [facility] Last Admin: 02/20/19 17:41 Dose: 15 mg Sertraline HCl (Zoloft -) 50 mg PO DAILY [facility] Last Admin: 02/21/19 10:33 Dose: 50 mg A/P Acute on Chronic Diastolic Heart Failure Volume Overload Pulmonary HTN ESRD on HD Atrial Fibrillation h/o PE Hypothyroidism DM - HD per renal with ultrafiltration - O2 to keep SpO2>90% - can trial off BiPAP - inhaled bronchodilators - can d/c medrol - aspiration precautions - continue anticoagulation
--- NOTE | 2019-02-21 12:52 | ECHO ---
Name: TAYA WYATT Exam:Adult Echocardiogram Study Date: 02/21/2019 09:35 AM Age: 73 yrs Reason For Study: SOB MMode/2D Measurements & Calculations IVSd: 1.0 cm Ao root diam: 3.2 cm LVIDd: 4.3 cm LA dimension: 4.2 cm LVIDs: 2.8 cm LVPWd: 1.4 cm LVPWs: 1.9 cm EDV(Teich): 83.9 ml ESV(Teich): 30.2 ml LVOT diam: 2.0 cm Doppler Measurements & Calculations Ao V2 max: 129.4 cm/sec TR max brown: 273.5 cm/sec Ao max P.7 mmHg TR max P.4 mmHg Ao V2 mean: 79.7 cm/sec RVSP(TR): 40.4 mmHg Ao mean P.3 mmHg Ao V2 VTI: 18.8 cm PA V2 max: 120.8 cm/sec Med Peak E' Brown: 4.2 cm/sec PA max P.8 mmHg Lat Peak E' Brown: 8.9 cm/sec RAP systole: 10.0 mmHg Procedure A complete two-dimensional transthoracic echocardiogram was performed (2D, M-mode, Doppler and color flow Doppler). Technically limited study. Left Ventricle The left ventricle is normal in size. Left ventricular systolic function is normal. Ejection Fraction = 55- 60%. No regional wall motion abnormalities noted. Right Ventricle The right ventricle is normal size. The right ventricular systolic function is moderately reduced. Atria The left atrium is mildly dilated. Right atrial size is normal. Mitral Valve There is mild mitral valve thickening. There is mild mitral annular calcification. There is mild mitr al regurgitation. Tricuspid Valve The tricuspid valve is normal in structure and function. There is moderate to severe tricuspid regurg itation. Pulmonary artery systolic pressure is at least 42 mmHg if RA pressure is assumed 3 mmHg. Aortic Valve There is mild to moderate aortic sclerosis.;. No aortic regurgitation is present. Pulmonic Valve The pulmonic valve is not well visualized. Moderate pulmonic valvular regurgitation. Great Vessels The aortic root is normal size. Pericardium/Pleura There is no pericardial effusion. There is a pleural effusion present. Interpretation Summary Technically limited study The left ventricle is normal in size. Left ventricular systolic function is normal. No regional wall motion abnormalities noted. Ejection Fraction = 55-60%. The right ventricular systolic function is moderately reduced. The left atrium is mildly dilated. Right atrial size is normal. There is mild mitral valve thickening. There is mild mitral annular calcification. There is mild mitral regurgitation. There is moderate to severe tricuspid regurgitation. Pulmonary artery systolic pressure is at least 42 mmHg if RA pressure is assumed 3 mmHg There is mild to moderate aortic sclerosis.; Moderate pulmonic valvular regurgitation. There is a pleural effusion present. Jonathon Live MD 02/21/2019 12:51 PM
--- NOTE | 2019-02-21 14:13 | PN ---
Progress Note, Physician History of Present Illness: Pt seen and examined at bedside. She is currently getting HD. - Current Medication List Current Medications: Active Medications Albuterol/Ipratropium (Duoneb -) 1 amp NEB RQID [facility] Last Admin: 02/21/19 12:00 Dose: 1 amp Amino Acids (Prosource No Carb Liquid Pkt) 30 ml PO BID@0800,1730 [facility] Last Admin: 02/21/19 10:33 Dose: 30 ml Buspirone HCl (Buspar -) 5 mg PO BID [facility] Last Admin: 02/21/19 10:33 Dose: 5 mg Calcitriol (Rocaltrol -) 0.75 mcg PO TID [facility] Last Admin: 02/21/19 06:13 Dose: 0.75 mcg Digoxin (Lanoxin -) 0.0625 mg PO DAILY [facility] Last Admin: 02/21/19 10:33 Dose: 0.0625 mg Docusate Sodium (Colace -) 300 mg PO HS [facility] Last Admin: 02/20/19 21:49 Dose: 300 mg Fludrocortisone Acetate (Florinef -) 0.2 mg PO DAILY [facility] Last Admin: 02/21/19 10:33 Dose: 0.2 mg Sodium Chloride (Normal Saline -) 1,000 mls @ 75 mls/hr IV ASDIR [facility] Last Admin: 02/20/19 14:21 Dose: 75 mls/hr Insulin Aspart (Novolog Vial Sliding Scale -) 1 vial SQ ACHS [facility]; Protocol Last Admin: 02/21/19 10:45 Dose: 2 units Levalbuterol HCl (Xopenex) 0.31 mg IH Q8H PRN PRN Reason: ASTHMA Levothyroxine Sodium (Synthroid -) 25 mcg PO DAILY@0700 [facility] Last Admin: 02/21/19 06:13 Dose: 25 mcg Melatonin (Melatonin) 5 mg PO HS [facility] Last Admin: 02/20/19 21:50 Dose: 5 mg Midodrine (Proamatine -) 10 mg PO Q8H PRN PRN Reason: HYPOTENSION Pantoprazole Sodium (Protonix -) 40 mg PO DAILY [facility] Last Admin: 02/21/19 10:33 Dose: 40 mg Rivaroxaban (Xarelto) 15 mg PO DAILY@1800 [facility] Last Admin: 02/20/19 17:41 Dose: 15 mg Sertraline HCl (Zoloft -) 50 mg PO DAILY [facility] Last Admin: 02/21/19 10:33 Dose: 50 mg - Objective Vital Signs: Vital Signs Temperature 98.1 F 02/21/19 12:55 Pulse Rate 98 H 02/21/19 13:00 Respiratory Rate 16 02/21/19 13:00 Blood Pressure 122/56 L 02/21/19 13:00 O2 Sat by Pulse Oximetry (%) 100 02/21/19 09:00 Constitutional: Yes: Calm Eyes: Yes: Conjunctiva Clear HENT: Yes: Atraumatic Neck: Yes: Supple Cardiovascular: Yes: S1, S2 Respiratory: Yes: On Nasal O2 Gastrointestinal: Yes: Soft Genitourinary: Yes: WNL Musculoskeletal: Yes: WNL Edema: Yes Edema: LUE: 1+, RUE: 1+ Neurological: Yes: Oriented Psychiatric: Yes: Oriented Labs: CBC, BMP 02/19/19 10:40 02/19/19 10:40 INR, PTT INR 2.18 (0.83-1.09) H 02/18/19 22:25 Assessment/Plan Current Medications Generic Name Dose Route Start Last Admin Trade Name Roberto PRN Reason Stop Dose Admin Albuterol/Ipratropium 1 amp 02/20/19 08:00 02/21/19 12:00 Duoneb - NEB 1 amp RQID [facility] Administration Amino Acids 30 ml 02/20/19 08:00 02/21/19 10:33 Prosource No Carb Liquid Pkt PO 30 ml BID@0800,1730 [facility] Administration Buspirone HCl 5 mg 02/20/19 10:00 02/21/19 10:33 Buspar - PO 5 mg BID [facility] Administration Calcitriol 0.75 mcg 02/20/19 06:00 02/21/19 06:13 Rocaltrol - PO 0.75 mcg TID [facility] Administration Digoxin 0.0625 mg 02/20/19 10:00 02/21/19 10:33 Lanoxin - PO 0.0625 mg DAILY [facility] Administration Docusate Sodium 300 mg 02/20/19 22:00 02/20/19 21:49 Colace - PO 300 mg HS [facility] Administration Fludrocortisone Acetate 0.2 mg 02/20/19 10:00 02/21/19 10:33 Florinef - PO 0.2 mg DAILY [facility] Administration Sodium Chloride 1,000 mls @ 75 mls/hr 02/19/19 12:30 02/20/19 14:21 Normal Saline - IV 75 mls/hr ASDIR [facility] Administration Insulin Aspart 1 vial 02/20/19 07:00 02/21/19 10:45 Novolog Vial Sliding Scale - SQ 2 units ACHS [facility] Administration Protocol Levalbuterol HCl 0.31 mg 02/19/19 22:57 Xopenex IH Q8H PRN ASTHMA Levothyroxine Sodium 25 mcg 02/20/19 07:00 02/21/19 06:13 Synthroid - PO 25 mcg DAILY@0700 [facility] Administration Melatonin 5 mg 02/20/19 22:00 02/20/19 21:50 Melatonin PO 5 mg HS [facility] Administration Midodrine 10 mg 02/19/19 22:57 Proamatine - PO Q8H PRN HYPOTENSION Pantoprazole Sodium 40 mg 02/20/19 10:00 02/21/19 10:33 Protonix - PO 40 mg DAILY [facility] Administration Rivaroxaban 15 mg 02/20/19 18:00 02/20/19 17:41 Xarelto PO 15 mg DAILY@1800 [facility] Administration Sertraline HCl 50 mg 02/20/19 10:00 02/21/19 10:33 Zoloft - PO 50 mg DAILY [facility] Administration Impression 1. ESRD 2. change in mental status 3. resp failure requiring intubation 4. chf 5. dvt 6. anemia 7. a-fib 8. hypothyroid 9. pleural effusion Plan - HD today - cont renal diet - cont fluid restriction - monitor bp - HD right thigh cath, 3 k bath, 3 15 time, 400 abf
[2019-02-21 14:48] VITALS: BMI 31.2
[2019-02-21] MEDS: RIVAROXABAN 15 MG TABLET PO SCH (18:05)
[2019-02-21] MEDS: MELATONIN 5 MG TABLETS PO SCH (22:34)
[2019-02-21] MEDS: DOCUSATE SODIUM 100 MG CAPSULE (FP) PO SCH (22:34)
[2019-02-22] MEDS ORDERED: LORazepam 0.5 MG TABLET PO ONE (00:07)
[2019-02-22] MEDS ORDERED: PT OWN MED DRAWER 7, Y5N ONE ×2 (06:08→07:27)
[2019-02-22] MEDS: INSULIN SLIDING SCALE (NOVOLOG) 1 VIAL SQ SCH ×4 (06:19→22:35)
[2019-02-22] MEDS: CALCITRIOL 0.25 MCG CAPSULE (FP) PO SCH ×3 (06:19→22:29)
[2019-02-22] MEDS: LEVOTHYROXINE NA 25 MCG TABLET (FP) PO SCH (06:20)
[2019-02-22] MEDS: ALBUTEROL SO4 2.5/IPRATROPIUM 0.5 INH SOL 3 ML VIAL.NEB. NEB SCH ×4 (08:23→21:30)
[2019-02-22 08:54] LABS: HEMATOCRIT 30.9 % (32.4-45.2); HEMOGLOBIN 9.4 GM/dL (10.7-15.3); MCH 30.1 pg (25.7-33.7); MCHC 30.4 g/dl (32.0-36.0); MEAN PLT VOLUME 8.9 fl (7.5-11.1); PLATELET COUNT 96 K/MM3 (134-434); RBC 3.12 M/mm3 (3.60-5.2); RDW 20.3 % (11.6-15.6); WHITE BLOOD COUNT 4.6 K/mm3 (4.0-10.0)
[2019-02-22 09:18] LABS: ALBUMIN 3.3 g/dl (3.4-5.0); BILIRUBIN,TOTAL 0.6 mg/dL (0.2-1); CALCIUM 9.7 mg/dL (8.5-10.1); CREATININE 2.4 mg/dL (0.55-1.3); TOT PROT 7.2 g/dl (6.4-8.2)
[2019-02-22] MEDS: SERTRALINE HCL 50 MG TABLET (FP) PO SCH (10:37)
[2019-02-22] MEDS: FLUDROCORTISONE ACETATE 0.1 MG TABLET (FP) PO SCH (10:37)
[2019-02-22] MEDS: PANTOPRAZOLE 40 MG TABLET (FP) PO SCH (10:37)
[2019-02-22] MEDS: DIGOXIN 0.125 MG TABLET (FP) PO SCH (10:38)
[2019-02-22] MEDS: AMINO ACIDS/PROTEIN HYDROLYS 30 ML LIQUID.PKT PO SCH ×2 (10:39→16:46)
[2019-02-22] MEDS: busPIRone HCL 5 MG TABLET PO SCH ×2 (10:39→22:30)
[2019-02-22] MEDS: SODIUM CHLORIDE 1,000 ML IV SCH (10:39)
--- NOTE | 2019-02-22 12:52 | PN ---
Progress Note, Physician History of Present Illness: Pt seen and examined at bedside. She is awake and alert. She agrees to extra HD session for UF today. - Current Medication List Current Medications: Active Medications Albuterol/Ipratropium (Duoneb -) 1 amp NEB RQID [facility] Last Admin: 02/22/19 11:25 Dose: 1 amp Amino Acids (Prosource No Carb Liquid Pkt) 30 ml PO BID@0800,1730 [facility] Last Admin: 02/22/19 10:39 Dose: 30 ml Buspirone HCl (Buspar -) 5 mg PO BID [facility] Last Admin: 02/22/19 10:39 Dose: 5 mg Calcitriol (Rocaltrol -) 0.75 mcg PO TID [facility] Last Admin: 02/22/19 06:19 Dose: 0.75 mcg Digoxin (Lanoxin -) 0.0625 mg PO DAILY [facility] Last Admin: 02/22/19 10:38 Dose: 0.0625 mg Docusate Sodium (Colace -) 300 mg PO HS [facility] Last Admin: 02/21/19 22:34 Dose: 300 mg Fludrocortisone Acetate (Florinef -) 0.2 mg PO DAILY [facility] Last Admin: 02/22/19 10:37 Dose: 0.2 mg Sodium Chloride (Normal Saline -) 1,000 mls @ 75 mls/hr IV ASDIR [facility] Last Admin: 02/22/19 10:39 Dose: Not Given Insulin Aspart (Novolog Vial Sliding Scale -) 1 vial SQ ACHS [facility]; Protocol Last Admin: 02/22/19 11:44 Dose: 2 units Levalbuterol HCl (Xopenex) 0.31 mg IH Q8H PRN PRN Reason: ASTHMA Levothyroxine Sodium (Synthroid -) 25 mcg PO DAILY@0700 [facility] Last Admin: 02/22/19 06:20 Dose: 25 mcg Melatonin (Melatonin) 5 mg PO HS [facility] Last Admin: 02/21/19 22:34 Dose: 5 mg Midodrine (Proamatine -) 10 mg PO Q8H PRN PRN Reason: HYPOTENSION Pantoprazole Sodium (Protonix -) 40 mg PO DAILY [facility] Last Admin: 02/22/19 10:37 Dose: 40 mg Rivaroxaban (Xarelto) 15 mg PO DAILY@1800 [facility] Last Admin: 02/21/19 18:05 Dose: 15 mg Sertraline HCl (Zoloft -) 50 mg PO DAILY [facility] Last Admin: 02/22/19 10:37 Dose: 50 mg - Objective Vital Signs: Vital Signs Temperature 98.2 F 02/22/19 08:24 Pulse Rate 93 H 02/22/19 10:38 Respiratory Rate 18 02/22/19 08:25 Blood Pressure 114/53 L 02/22/19 08:24 O2 Sat by Pulse Oximetry (%) 97 02/21/19 21:00 Constitutional: Yes: Calm Eyes: Yes: Conjunctiva Clear HENT: Yes: Atraumatic Neck: Yes: Supple Cardiovascular: Yes: S1, S2 Respiratory: Yes: On Venti-Mask Gastrointestinal: Yes: Soft Genitourinary: Yes: Incontinence Musculoskeletal: Yes: WNL Edema: Yes Edema: LUE: 1+, RUE: 1+, LLE: Trace, RLE: Trace Neurological: Yes: Oriented Psychiatric: Yes: Oriented Labs: CBC, BMP 02/22/19 07:40 02/22/19 07:40 INR, PTT INR 2.18 (0.83-1.09) H 02/18/19 22:25 Assessment/Plan Current Medications Generic Name Dose Route Start Last Admin Trade Name Freq PRN Reason Stop Dose Admin Albuterol/Ipratropium 1 amp 02/20/19 08:00 02/22/19 11:25 Duoneb - NEB 1 amp RQID [facility] Administration Amino Acids 30 ml 02/20/19 08:00 02/22/19 10:39 Prosource No Carb Liquid Pkt PO 30 ml BID@0800,1730 [facility] Administration Buspirone HCl 5 mg 02/20/19 10:00 02/22/19 10:39 Buspar - PO 5 mg BID [facility] Administration Calcitriol 0.75 mcg 02/20/19 06:00 02/22/19 06:19 Rocaltrol - PO 0.75 mcg TID [facility] Administration Digoxin 0.0625 mg 02/20/19 10:00 02/22/19 10:38 Lanoxin - PO 0.0625 mg DAILY [facility] Administration Docusate Sodium 300 mg 02/20/19 22:00 02/21/19 22:34 Colace - PO 300 mg HS [facility] Administration Fludrocortisone Acetate 0.2 mg 02/20/19 10:00 02/22/19 10:37 Florinef - PO 0.2 mg DAILY [facility] Administration Sodium Chloride 1,000 mls @ 75 mls/hr 02/19/19 12:30 02/22/19 10:39 Normal Saline - IV Not Given ASD[facility] Insulin Aspart 1 vial 02/20/19 07:00 02/22/19 11:44 Novolog Vial Sliding Scale - SQ 2 units ACHS [facility] Administration Protocol Levalbuterol HCl 0.31 mg 02/19/19 22:57 Xopenex IH Q8H PRN ASTHMA Levothyroxine Sodium 25 mcg 02/20/19 07:00 02/22/19 06:20 Synthroid - PO 25 mcg DAILY@0700 [facility] Administration Melatonin 5 mg 02/20/19 22:00 02/21/19 22:34 Melatonin PO 5 mg HS [facility] Administration Midodrine 10 mg 02/19/19 22:57 Proamatine - PO Q8H PRN HYPOTENSION Pantoprazole Sodium 40 mg 02/20/19 10:00 02/22/19 10:37 Protonix - PO 40 mg DAILY [facility] Administration Rivaroxaban 15 mg 02/20/19 18:00 02/21/19 18:05 Xarelto PO 15 mg DAILY@1800 [facility] Administration Sertraline HCl 50 mg 02/20/19 10:00 02/22/19 10:37 Zoloft - PO 50 mg DAILY [facility] Administration Impression 1. ESRD 2. change in mental status 3. resp failure requiring intubation 4. chf 5. dvt 6. anemia 7. a-fib 8. hypothyroid 9. pleural effusion Plan - will dialyze today for extra treatment for UF - pt has HD set up as outpt - discussed with primary team - monitor bp - HD right thigh cath, 3 k bath, 3 15 time, 400 abf
[2019-02-22] MEDS ORDERED: SODIUM CHLORIDE 250 ML IV PRN (12:53)
[2019-02-22] MEDS: ALBUMIN HUMAN 25% 12.5 GM/50 ML VIAL IVPB SCH ×4 (13:30→15:11)
--- NOTE | 2019-02-22 13:44 | PN ---
Progress Note (short form) - Note Progress Note: PULMONARY Seen at HD. Saturating well. States breathing better today. Vital Signs Period Temp Pulse Resp BP Sys/Jhaveri Pulse Ox Last 24 Hr 98.2 F-98.9 F 48-111 16-22 89-124/32-100 97-100 Gen: NAD on BiPAP Heart: RRR Lung: decreased breath sounds at the bases Abd: soft, nontender Ext: + edema CBC, BMP 02/22/19 07:40 02/22/19 07:40 Active Medications Albumin Human (Albumin Human 25%) 12.5 gm IVPB Q30M [facility] Stop: 02/22/19 15:01 Albuterol/Ipratropium (Duoneb -) 1 amp NEB RQID [facility] Last Admin: 02/22/19 11:25 Dose: 1 amp Amino Acids (Prosource No Carb Liquid Pkt) 30 ml PO BID@0800,1730 [facility] Last Admin: 02/22/19 10:39 Dose: 30 ml Buspirone HCl (Buspar -) 5 mg PO BID [facility] Last Admin: 02/22/19 10:39 Dose: 5 mg Calcitriol (Rocaltrol -) 0.75 mcg PO TID [facility] Last Admin: 02/22/19 06:19 Dose: 0.75 mcg Digoxin (Lanoxin -) 0.0625 mg PO DAILY [facility] Last Admin: 02/22/19 10:38 Dose: 0.0625 mg Docusate Sodium (Colace -) 300 mg PO HS [facility] Last Admin: 02/21/19 22:34 Dose: 300 mg Fludrocortisone Acetate (Florinef -) 0.2 mg PO DAILY [facility] Last Admin: 02/22/19 10:37 Dose: 0.2 mg Sodium Chloride (Normal Saline -) 1,000 mls @ 75 mls/hr IV ASDIR [facility] Last Admin: 02/22/19 10:39 Dose: Not Given Sodium Chloride (Normal Saline -) 250 mls @ 3,000 mls/hr IV PRN PRN PRN Reason: Hypotension during Dialysis Stop: 02/23/19 12:53 Insulin Aspart (Novolog Vial Sliding Scale -) 1 vial SQ ACHS [facility]; Protocol Last Admin: 02/22/19 11:44 Dose: 2 units Levalbuterol HCl (Xopenex) 0.31 mg IH Q8H PRN PRN Reason: ASTHMA Levothyroxine Sodium (Synthroid -) 25 mcg PO DAILY@0700 [facility] Last Admin: 02/22/19 06:20 Dose: 25 mcg Melatonin (Melatonin) 5 mg PO HS [facility] Last Admin: 02/21/19 22:34 Dose: 5 mg Midodrine (Proamatine -) 10 mg PO Q8H PRN PRN Reason: HYPOTENSION Pantoprazole Sodium (Protonix -) 40 mg PO DAILY [facility] Last Admin: 02/22/19 10:37 Dose: 40 mg Rivaroxaban (Xarelto) 15 mg PO DAILY@1800 [facility] Last Admin: 02/21/19 18:05 Dose: 15 mg Sertraline HCl (Zoloft -) 50 mg PO DAILY [facility] Last Admin: 02/22/19 10:37 Dose: 50 mg A/P Acute on Chronic Diastolic Heart Failure Volume Overload Pulmonary HTN ESRD on HD Atrial Fibrillation h/o PE Hypothyroidism DM - HD per renal with ultrafiltration - O2 to keep SpO2>90% - can trial off BiPAP - inhaled bronchodilators - aspiration precautions - continue anticoagulation
--- NOTE | 2019-02-22 14:54 | PN ---
Progress Note, Physician Chief Complaint: Mucoid Impaction of Bronchi Acute on Chronic Respiratory Failure COPD ESRD History of Present Illness: Previous notes and events reviewed awake and alert NAD on Ventimask 40% during HG patient became hypotensive with BP 70/40, received albumin, on floor now denies dizziness and feelings of weakness - Current Medication List Current Medications: Active Medications Albumin Human (Albumin Human 25%) 12.5 gm IVPB Q30M [facility] Stop: 02/22/19 15:01 Last Admin: 02/22/19 14:31 Dose: 12.5 gm Albuterol/Ipratropium (Duoneb -) 1 amp NEB RQID [facility] Last Admin: 02/22/19 11:25 Dose: 1 amp Amino Acids (Prosource No Carb Liquid Pkt) 30 ml PO BID@0800,1730 [facility] Last Admin: 02/22/19 10:39 Dose: 30 ml Buspirone HCl (Buspar -) 5 mg PO BID [facility] Last Admin: 02/22/19 10:39 Dose: 5 mg Calcitriol (Rocaltrol -) 0.75 mcg PO TID [facility] Last Admin: 02/22/19 06:19 Dose: 0.75 mcg Digoxin (Lanoxin -) 0.0625 mg PO DAILY [facility] Last Admin: 02/22/19 10:38 Dose: 0.0625 mg Docusate Sodium (Colace -) 300 mg PO HS [facility] Last Admin: 02/21/19 22:34 Dose: 300 mg Fludrocortisone Acetate (Florinef -) 0.2 mg PO DAILY [facility] Last Admin: 02/22/19 10:37 Dose: 0.2 mg Sodium Chloride (Normal Saline -) 1,000 mls @ 75 mls/hr IV ASDIR [facility] Last Admin: 02/22/19 10:39 Dose: Not Given Sodium Chloride (Normal Saline -) 250 mls @ 3,000 mls/hr IV PRN PRN PRN Reason: Hypotension during Dialysis Stop: 02/23/19 12:53 Insulin Aspart (Novolog Vial Sliding Scale -) 1 vial SQ ACHS [facility]; Protocol Last Admin: 02/22/19 11:44 Dose: 2 units Levalbuterol HCl (Xopenex) 0.31 mg IH Q8H PRN PRN Reason: ASTHMA Levothyroxine Sodium (Synthroid -) 25 mcg PO DAILY@0700 [facility] Last Admin: 02/22/19 06:20 Dose: 25 mcg Melatonin (Melatonin) 5 mg PO HS [facility] Last Admin: 02/21/19 22:34 Dose: 5 mg Midodrine (Proamatine -) 10 mg PO Q8H PRN PRN Reason: HYPOTENSION Pantoprazole Sodium (Protonix -) 40 mg PO DAILY [facility] Last Admin: 02/22/19 10:37 Dose: 40 mg Rivaroxaban (Xarelto) 15 mg PO DAILY@1800 [facility] Last Admin: 02/21/19 18:05 Dose: 15 mg Sertraline HCl (Zoloft -) 50 mg PO DAILY [facility] Last Admin: 02/22/19 10:37 Dose: 50 mg - Objective Vital Signs: Vital Signs Temperature 98.2 F 02/22/19 08:24 Pulse Rate 98 H 02/22/19 14:26 Respiratory Rate 16 02/22/19 14:26 Blood Pressure 109/60 02/22/19 14:26 O2 Sat by Pulse Oximetry (%) 97 02/21/19 21:00 Constitutional: Yes: No Distress, Calm Eyes: Yes: Conjunctiva Clear HENT: Yes: Atraumatic Cardiovascular: Yes: Regular Rate and Rhythm Respiratory: Yes: Regular, Diminished, On Venti-Mask Gastrointestinal: Yes: Normal Bowel Sounds, Soft, Abdomen, Obese Genitourinary: Yes: Incontinence Musculoskeletal: Yes: Muscle Weakness Extremities: Yes: WNL Edema: Yes (RUE) Neurological: Yes: Alert Psychiatric: Yes: Alert Labs: CBC, BMP 02/22/19 07:40 02/22/19 07:40 INR, PTT INR 2.18 (0.83-1.09) H 02/18/19 22:25 Microbiology 02/19/19 16:16 Blood - Peripheral Venous Blood Culture - Preliminary NO GROWTH OBTAINED AFTER 48 HOURS, INCUBATION TO CONTINUE FOR 3 DAYS. 02/19/19 16:16 Blood - Peripheral Venous Blood Culture - Preliminary NO GROWTH OBTAINED AFTER 48 HOURS, INCUBATION TO CONTINUE FOR 3 DAYS. Problem List - Problems (1) Acute respiratory failure Assessment/Plan: -Pulm on board -Bipap at HS -Keep SpO2 >90% -Xopenex -Bronchodilators -IV Medrol -CXR shows mediastinal shift to the left with widening of the mediastinum and bilateral pulmonary pleural changes left greater than right -Echocardiogram Code(s): J96.00 - ACUTE RESPIRATORY FAILURE, UNSP W HYPOXIA OR HYPERCAPNIA Qualifiers: Respiratory failure complication: hypoxia Qualified Code(s): J96.01 - Acute respiratory failure with hypoxia (2) Mucus plugging of bronchi Assessment/Plan: -Pulm on board -Bipap at HS -turn q2h and reposition -Keep SpO2 >90% -Xopenex -Bronchodilators -IV Medrol -CXR shows mediastinal shift to the left with widening of the mediastinum and bilateral pulmonary pleural changes left greater than right Code(s): J98.09 - OTHER DISEASES OF BRONCHUS, NOT ELSEWHERE CLASSIFIED (3) Afib Assessment/Plan: -Xarelto -Digoxin -Echocardiogram Code(s): I48.91 - UNSPECIFIED ATRIAL FIBRILLATION (4) ESRD on hemodialysis Assessment/Plan: -Renal on board -continue HD on scheduled days -Renal diet -BUN/Cr 29.0/2.4 Code(s): N18.6 - END STAGE RENAL DISEASE; Z99.2 - DEPENDENCE ON RENAL DIALYSIS (5) Hypotension Assessment/Plan: -[place] Code(s): I95.9 - HYPOTENSION, UNSPECIFIED Qualifiers: Hypotension type: unspecified hypotension type Qualified Code(s): I95.9 - Hypotension, unspecified (6) Hypothyroid Assessment/Plan: -Levothyroxine Code(s): E03.9 - HYPOTHYROIDISM, UNSPECIFIED Assessment/Plan see problem list dvt ppx if no adverse events during the night begin d/c planning back to [facility] tomorrow
[2019-02-22] MEDS: RIVAROXABAN 15 MG TABLET PO SCH (18:00)
[2019-02-22] MEDS: DOCUSATE SODIUM 100 MG CAPSULE (FP) PO SCH (22:30)
[2019-02-22] MEDS: MELATONIN 5 MG TABLETS PO SCH (22:30)
[2019-02-23] MEDS ORDERED: PT OWN MED DRAWER 7, Y5N ONE ×2 (06:00→13:38)
[2019-02-23] MEDS: LEVOTHYROXINE NA 25 MCG TABLET (FP) PO SCH (06:25)
[2019-02-23] MEDS: INSULIN SLIDING SCALE (NOVOLOG) 1 VIAL SQ SCH ×3 (06:26→16:30)
[2019-02-23] MEDS: CALCITRIOL 0.25 MCG CAPSULE (FP) PO SCH ×2 (06:26→14:00)
[2019-02-23] MEDS ORDERED: EPOETIN ALFA 10,000 UNIT/1 ML VIAL IVPUSH ONE ×2 (07:31→10:00)
[2019-02-23] MEDS: ALBUTEROL SO4 2.5/IPRATROPIUM 0.5 INH SOL 3 ML VIAL.NEB. NEB SCH ×3 (07:51→17:00)
[2019-02-23] MEDS: AMINO ACIDS/PROTEIN HYDROLYS 30 ML LIQUID.PKT PO SCH ×2 (08:30→18:42)
[2019-02-23] MEDS: busPIRone HCL 5 MG TABLET PO SCH (09:46)
[2019-02-23] MEDS: PANTOPRAZOLE 40 MG TABLET (FP) PO SCH (09:47)
[2019-02-23] MEDS: DIGOXIN 0.125 MG TABLET (FP) PO SCH (09:47)
[2019-02-23] MEDS: FLUDROCORTISONE ACETATE 0.1 MG TABLET (FP) PO SCH (09:47)
[2019-02-23] MEDS: SERTRALINE HCL 50 MG TABLET (FP) PO SCH (09:47)
[2019-02-23] MEDS ORDERED: SODIUM CHLORIDE 250 ML IV PRN (10:00)
[2019-02-23] MEDS: ALBUMIN HUMAN 25% 12.5 GM/50 ML VIAL IVPB SCH ×4 (10:00→11:30)
[2019-02-23 11:20] LABS: HEMATOCRIT 29.2 % (32.4-45.2); HEMOGLOBIN 8.9 GM/dL (10.7-15.3); MCH 29.9 pg (25.7-33.7); MCHC 30.5 g/dl (32.0-36.0); MEAN CELL VOLUME 98.1 fl (80-96); MEAN PLT VOLUME 8.5 fl (7.5-11.1); PLATELET COUNT 98 K/MM3 (134-434); RBC 2.97 M/mm3 (3.60-5.2); RDW 19.8 % (11.6-15.6); WHITE BLOOD COUNT 4.2 K/mm3 (4.0-10.0)
[2019-02-23 11:48] LABS: BLOOD UREA NITROGEN 38.5 mg/dL (7-18); CALCIUM 9.2 mg/dL (8.5-10.1); CREATININE 2.9 mg/dL (0.55-1.3)
--- NOTE | 2019-02-23 12:24 | PN ---
Progress Note, Physician History of Present Illness: Pt seen and examined at bedside. She is tolerating HD. - Current Medication List Current Medications: Active Medications Albuterol/Ipratropium (Duoneb -) 1 amp NEB RQID [facility] Last Admin: 02/23/19 07:51 Dose: 1 amp Amino Acids (Prosource No Carb Liquid Pkt) 30 ml PO BID@0800,1730 [facility] Last Admin: 02/23/19 08:30 Dose: 30 ml Buspirone HCl (Buspar -) 5 mg PO BID [facility] Last Admin: 02/23/19 09:46 Dose: 5 mg Calcitriol (Rocaltrol -) 0.75 mcg PO TID [facility] Last Admin: 02/23/19 06:26 Dose: 0.75 mcg Digoxin (Lanoxin -) 0.0625 mg PO DAILY [facility] Last Admin: 02/23/19 09:47 Dose: 0.0625 mg Docusate Sodium (Colace -) 300 mg PO HS [facility] Last Admin: 02/22/19 22:30 Dose: 300 mg Fludrocortisone Acetate (Florinef -) 0.2 mg PO DAILY [facility] Last Admin: 02/23/19 09:47 Dose: 0.2 mg Sodium Chloride (Normal Saline -) 1,000 mls @ 75 mls/hr IV ASDIR [facility] Last Admin: 02/22/19 10:39 Dose: Not Given Sodium Chloride (Normal Saline -) 250 mls @ 3,000 mls/hr IV PRN PRN PRN Reason: Hypotension during Dialysis Stop: 02/23/19 12:53 Sodium Chloride (Normal Saline -) 250 mls @ 3,000 mls/hr IV PRN PRN PRN Reason: Hypotension during Dialysis Stop: 02/24/19 09:59 Insulin Aspart (Novolog Vial Sliding Scale -) 1 vial SQ ACHS [facility]; Protocol Last Admin: 02/23/19 11:52 Dose: Not Given Levalbuterol HCl (Xopenex) 0.31 mg IH Q8H PRN PRN Reason: ASTHMA Levothyroxine Sodium (Synthroid -) 25 mcg PO DAILY@0700 [facility] Last Admin: 02/23/19 06:25 Dose: 25 mcg Melatonin (Melatonin) 5 mg PO HS [facility] Last Admin: 02/22/19 22:30 Dose: 5 mg Midodrine (Proamatine -) 10 mg PO Q8H PRN PRN Reason: HYPOTENSION Pantoprazole Sodium (Protonix -) 40 mg PO DAILY [facility] Last Admin: 02/23/19 09:47 Dose: 40 mg Rivaroxaban (Xarelto) 15 mg PO DAILY@1800 [facility] Last Admin: 02/22/19 18:00 Dose: 15 mg Sertraline HCl (Zoloft -) 50 mg PO DAILY [facility] Last Admin: 02/23/19 09:47 Dose: 50 mg - Objective Vital Signs: Vital Signs Temperature 97.6 F 02/23/19 05:52 Pulse Rate 92 H 02/23/19 11:45 Respiratory Rate 16 02/23/19 11:45 Blood Pressure 102/57 L 02/23/19 11:45 O2 Sat by Pulse Oximetry (%) 97 02/23/19 04:00 Constitutional: Yes: Calm Eyes: Yes: Conjunctiva Clear HENT: Yes: Atraumatic Neck: Yes: Supple Cardiovascular: Yes: S1, S2 Respiratory: Yes: On Venti-Mask Gastrointestinal: Yes: Soft, Abdomen, Obese Genitourinary: Yes: Incontinence Musculoskeletal: Yes: Muscle Weakness Edema: LUE: Trace, RUE: Trace Neurological: Yes: Oriented Psychiatric: Yes: Oriented Labs: CBC, BMP 02/23/19 10:15 02/23/19 10:23 INR, PTT INR 2.18 (0.83-1.09) H 02/18/19 22:25 Problem List - Problems (1) ESRD on hemodialysis Code(s): N18.6 - END STAGE RENAL DISEASE; Z99.2 - DEPENDENCE ON RENAL DIALYSIS Assessment/Plan Current Medications Generic Name Dose Route Start Last Admin Trade Name Freq PRN Reason Stop Dose Admin Albuterol/Ipratropium 1 amp 02/20/19 08:00 02/23/19 07:51 Duoneb - NEB 1 amp RQID [facility] Administration Amino Acids 30 ml 02/20/19 08:00 02/23/19 08:30 Prosource No Carb Liquid Pkt PO 30 ml BID@0800,1730 [facility] Administration Buspirone HCl 5 mg 02/20/19 10:00 02/23/19 09:46 Buspar - PO 5 mg BID [facility] Administration Calcitriol 0.75 mcg 02/20/19 06:00 02/23/19 06:26 Rocaltrol - PO 0.75 mcg TID [facility] Administration Digoxin 0.0625 mg 02/20/19 10:00 02/23/19 09:47 Lanoxin - PO 0.0625 mg DAILY [facility] Administration Docusate Sodium 300 mg 02/20/19 22:00 02/22/19 22:30 Colace - PO 300 mg HS [facility] Administration Fludrocortisone Acetate 0.2 mg 02/20/19 10:00 02/23/19 09:47 Florinef - PO 0.2 mg DAILY [facility] Administration Sodium Chloride 1,000 mls @ 75 mls/hr 02/19/19 12:30 02/22/19 10:39 Normal Saline - IV Not Given ASDIR [facility] Sodium Chloride 250 mls @ 3,000 mls/hr 02/22/19 12:53 Normal Saline - IV 02/23/19 12:53 PRN PRN Hypotension during Dialysis Sodium Chloride 250 mls @ 3,000 mls/hr 02/23/19 10:00 Normal Saline - IV 02/24/19 09:59 PRN PRN Hypotension during Dialysis Insulin Aspart 1 vial 02/20/19 07:00 02/23/19 11:52 Novolog Vial Sliding Scale - SQ Not Given ACHS [facility] Protocol Levalbuterol HCl 0.31 mg 02/19/19 22:57 Xopenex IH Q8H PRN ASTHMA Levothyroxine Sodium 25 mcg 02/20/19 07:00 02/23/19 06:25 Synthroid - PO 25 mcg DAILY@0700 [facility] Administration Melatonin 5 mg 02/20/19 22:00 02/22/19 22:30 Melatonin PO 5 mg HS [facility] Administration Midodrine 10 mg 02/19/19 22:57 Proamatine - PO Q8H PRN HYPOTENSION Pantoprazole Sodium 40 mg 02/20/19 10:00 02/23/19 09:47 Protonix - PO 40 mg DAILY [facility] Administration Rivaroxaban 15 mg 02/20/19 18:00 02/22/19 18:00 Xarelto PO 15 mg DAILY@1800 [facility] Administration Sertraline HCl 50 mg 02/20/19 10:00 02/23/19 09:47 Zoloft - PO 50 mg DAILY [facility] Administration Impression 1. ESRD 2. change in mental status 3. resp failure requiring intubation 4. chf 5. dvt 6. anemia 7. a-fib 8. hypothyroid 9. pleural effusion Plan - HD today - pt tolerating UF - pt has HD set up as outpt - monitor bp - HD right thigh cath, 3 k bath, 3 15 time, 400 abf
--- NOTE | 2019-02-23 13:55 | PN ---
Progress Note (short form) - Note Progress Note: PULMONARY Seen at HD. States breathing better today. Vital Signs Period Temp Pulse Resp BP Sys/Jhaveri Pulse Ox Last 24 Hr 97.4 F-98.4 F 80-111 16-20 77-138/36-80 96-97 Gen: NAD on BiPAP Heart: RRR Lung: decreased breath sounds at the bases Abd: soft, nontender Ext: + edema CBC, BMP 02/23/19 10:15 02/23/19 10:23 Active Medications Albuterol/Ipratropium (Duoneb -) 1 amp NEB RQID [facility] Last Admin: 02/23/19 12:23 Dose: Not Given Amino Acids (Prosource No Carb Liquid Pkt) 30 ml PO BID@0800,1730 [facility] Last Admin: 02/23/19 08:30 Dose: 30 ml Buspirone HCl (Buspar -) 5 mg PO BID [facility] Last Admin: 02/23/19 09:46 Dose: 5 mg Calcitriol (Rocaltrol -) 0.75 mcg PO TID [facility] Last Admin: 02/23/19 06:26 Dose: 0.75 mcg Digoxin (Lanoxin -) 0.0625 mg PO DAILY [facility] Last Admin: 02/23/19 09:47 Dose: 0.0625 mg Docusate Sodium (Colace -) 300 mg PO HS [facility] Last Admin: 02/22/19 22:30 Dose: 300 mg Fludrocortisone Acetate (Florinef -) 0.2 mg PO DAILY [facility] Last Admin: 02/23/19 09:47 Dose: 0.2 mg Sodium Chloride (Normal Saline -) 1,000 mls @ 75 mls/hr IV ASDIR [facility] Last Admin: 02/22/19 10:39 Dose: Not Given Sodium Chloride (Normal Saline -) 250 mls @ 3,000 mls/hr IV PRN PRN PRN Reason: Hypotension during Dialysis Stop: 02/24/19 09:59 Insulin Aspart (Novolog Vial Sliding Scale -) 1 vial SQ ACHS [facility]; Protocol Last Admin: 02/23/19 11:52 Dose: Not Given Levalbuterol HCl (Xopenex) 0.31 mg IH Q8H PRN PRN Reason: ASTHMA Levothyroxine Sodium (Synthroid -) 25 mcg PO DAILY@0700 [facility] Last Admin: 02/23/19 06:25 Dose: 25 mcg Melatonin (Melatonin) 5 mg PO HS [facility] Last Admin: 02/22/19 22:30 Dose: 5 mg Midodrine (Proamatine -) 10 mg PO Q8H PRN PRN Reason: HYPOTENSION Pantoprazole Sodium (Protonix -) 40 mg PO DAILY [facility] Last Admin: 02/23/19 09:47 Dose: 40 mg Rivaroxaban (Xarelto) 15 mg PO DAILY@1800 [facility] Last Admin: 02/22/19 18:00 Dose: 15 mg Sertraline HCl (Zoloft -) 50 mg PO DAILY [facility] Last Admin: 02/23/19 09:47 Dose: 50 mg A/P Mucous Plugging Acute on Chronic Diastolic Heart Failure Volume Overload Pulmonary HTN ESRD on HD Atrial Fibrillation h/o PE Hypothyroidism DM - HD per renal with ultrafiltration - O2 to keep SpO2>90% - inhaled bronchodilators - aspiration precautions - continue anticoagulation - agree with d/c planning
[2019-02-23 14:36] VITALS: BP 104/63; PULSE 107
--- NOTE | 2019-02-23 14:58 | DS ---
Physical Examination Vital Signs: Vital Signs Temperature 97.6 F 02/23/19 05:52 Pulse Rate 107 H 02/23/19 14:36 Respiratory Rate 16 02/23/19 14:36 Blood Pressure 104/63 02/23/19 14:36 O2 Sat by Pulse Oximetry (%) 97 02/23/19 04:00 Constitutional: Yes: No Distress, Calm Eyes: Yes: Conjunctiva Clear HENT: Yes: Atraumatic Cardiovascular: Yes: Regular Rate and Rhythm Respiratory: Yes: Regular, Diminished, On Venti-Mask Gastrointestinal: Yes: Normal Bowel Sounds, Soft Musculoskeletal: Yes: Muscle Weakness Extremities: Yes: WNL Edema: Yes (RUE) Neurological: Yes: Alert, Pre-Existing Deficit Psychiatric: Yes: Alert, Oriented Labs: CBC, BMP 02/23/19 10:15 02/23/19 10:23 Discharge Summary Reason For Visit: MUCOID IMPACTION OF BRONCHI Current Active Problems Acute respiratory failure (Acute) Hypoxia (Acute) Mucus plugging of bronchi (Acute) Shortness of breath (Acute) Hospital Course: Patient is a 73 y/o female with past medical history of ESRD on HD, a-fib on digoxin, hypothyroidism. Patient presented to ER with complaints of SOB x 1 day. Reports having productive cough with clear sputum. In ER was noted to be de-saturating and placed on Bipap. CXR showed bilateral pulmonary changes. Underwent dialysis while in patient and followed by pulmonary. Patient breathing has improved since admission. Laboratory Tests 02/18/19 02/18/19 02/18/19 22:25 22:25 22:25 WBC RBC Hgb Hct MCV MCH MCHC RDW Plt Count MPV Absolute Neuts (auto) Neutrophils % Lymphocytes % Monocytes % Eosinophils % Basophils % Nucleated RBC % Platelet Estimate Platelet Comment Anisocytosis Microcytosis PT with INR 25.90 H INR 2.18 H Sodium 137 Potassium 4.3 Chloride 97 L Carbon Dioxide 29 Anion Gap 11 BUN 24.3 H Creatinine 2.4 H Est GFR (CKD-EPI)AfAm 22.78 Est GFR (CKD-EPI)NonAf 19.65 POC Glucometer Random Glucose 99 Calcium 8.4 L Magnesium 2.1 Total Bilirubin 0.6 AST 39 H ALT 22 Alkaline Phosphatase 151 H Creatine Kinase Cancelled 60 Troponin I Cancelled 0.03 B-Natriuretic Peptide Total Protein 7.4 Albumin 3.3 L TSH Digoxin Hep Bs Antigen Hep C Ab Diagnostic 02/18/19 02/19/19 02/19/19 22:29 06:34 10:35 WBC 3.7 L RBC 3.22 L Hgb 9.7 L Hct 31.4 L MCV 97.8 H MCH 30.1 MCHC 30.8 L RDW 20.6 H Plt Count 124 L MPV 8.8 Absolute Neuts (auto) 2.5 Neutrophils % 66.8 D Lymphocytes % 21.7 D Monocytes % 9.1 D Eosinophils % 1.1 D Basophils % 1.3 D Nucleated RBC % 0 Platelet Estimate Decreased Platelet Comment No clumping noted Anisocytosis 2+ Microcytosis 1+ PT with INR INR Sodium Potassium Chloride Carbon Dioxide Anion Gap BUN Creatinine Est GFR (CKD-EPI)AfAm Est GFR (CKD-EPI)NonAf POC Glucometer 83 Random Glucose Calcium Magnesium Total Bilirubin AST ALT Alkaline Phosphatase Creatine Kinase Troponin I B-Natriuretic Peptide Total Protein Albumin TSH Digoxin 0.33 L Hep Bs Antigen Hep C Ab Diagnostic 02/19/19 02/19/19 02/19/19 10:40 10:40 11:10 WBC 4.4 RBC 3.21 L Hgb 9.7 L Hct 31.6 L MCV 98.4 H MCH 30.2 MCHC 30.7 L RDW 20.5 H Plt Count 116 L MPV 8.5 Absolute Neuts (auto) 2.7 Neutrophils % 62.3 Lymphocytes % 24.6 Monocytes % 10.8 H Eosinophils % 1.1 Basophils % 1.2 Nucleated RBC % 0 Platelet Estimate Platelet Comment Anisocytosis Microcytosis PT with INR INR Sodium 137 Potassium 3.9 Chloride 101 Carbon Dioxide 22 Anion Gap 14 BUN 26.8 H Creatinine 2.7 H Est GFR (CKD-EPI)AfAm 19.75 Est GFR (CKD-EPI)NonAf 17.04 POC Glucometer 94 Random Glucose 87 Calcium 8.3 L Magnesium 2.1 Total Bilirubin 0.5 AST 23 ALT 19 Alkaline Phosphatase 142 H Creatine Kinase Troponin I B-Natriuretic Peptide > 017035.0 H Total Protein 6.8 Albumin 3.1 L TSH 3.83 H Digoxin Hep Bs Antigen Hep C Ab Diagnostic 02/19/19 02/19/19 02/20/19 16:00 21:41 06:37 WBC RBC Hgb Hct MCV MCH MCHC RDW Plt Count MPV Absolute Neuts (auto) Neutrophils % Lymphocytes % Monocytes % Eosinophils % Basophils % Nucleated RBC % Platelet Estimate Platelet Comment Anisocytosis Microcytosis PT with INR INR Sodium Potassium Chloride Carbon Dioxide Anion Gap BUN Creatinine Est GFR (CKD-EPI)AfAm Est GFR (CKD-EPI)NonAf POC Glucometer 186 182 Random Glucose Calcium Magnesium Total Bilirubin AST ALT Alkaline Phosphatase Creatine Kinase Troponin I B-Natriuretic Peptide Total Protein Albumin TSH Digoxin Hep Bs Antigen Negative Hep C Ab Diagnostic 0.2 02/20/19 02/20/19 02/21/19 17:25 22:02 06:17 WBC RBC Hgb Hct MCV MCH MCHC RDW Plt Count MPV Absolute Neuts (auto) Neutrophils % Lymphocytes % Monocytes % Eosinophils % Basophils % Nucleated RBC % Platelet Estimate Platelet Comment Anisocytosis Microcytosis PT with INR INR Sodium Potassium Chloride Carbon Dioxide Anion Gap BUN Creatinine Est GFR (CKD-EPI)AfAm Est GFR (CKD-EPI)NonAf POC Glucometer 247 192 201 Random Glucose Calcium Magnesium Total Bilirubin AST ALT Alkaline Phosphatase Creatine Kinase Troponin I B-Natriuretic Peptide Total Protein Albumin TSH Digoxin Hep Bs Antigen Hep C Ab Diagnostic 02/21/19 02/21/19 02/21/19 10:43 17:51 22:31 WBC RBC Hgb Hct MCV MCH MCHC RDW Plt Count MPV Absolute Neuts (auto) Neutrophils % Lymphocytes % Monocytes % Eosinophils % Basophils % Nucleated RBC % Platelet Estimate Platelet Comment Anisocytosis Microcytosis PT with INR INR Sodium Potassium Chloride Carbon Dioxide Anion Gap BUN Creatinine Est GFR (CKD-EPI)AfAm Est GFR (CKD-EPI)NonAf POC Glucometer 191 175 203 Random Glucose Calcium Magnesium Total Bilirubin AST ALT Alkaline Phosphatase Creatine Kinase Troponin I B-Natriuretic Peptide Total Protein Albumin TSH Digoxin Hep Bs Antigen Hep C Ab Diagnostic 02/22/19 02/22/19 02/22/19 06:18 07:40 07:40 WBC 4.6 RBC 3.12 L Hgb 9.4 L Hct 30.9 L MCV 99.0 H MCH 30.1 MCHC 30.4 L RDW 20.3 H Plt Count 96 L MPV 8.9 Absolute Neuts (auto) Neutrophils % Lymphocytes % Monocytes % Eosinophils % Basophils % Nucleated RBC % Platelet Estimate Platelet Comment No clumping noted Anisocytosis Microcytosis PT with INR INR Sodium 140 Potassium 4.0 Chloride 100 Carbon Dioxide 29 Anion Gap 11 BUN 29.0 H Creatinine 2.4 H Est GFR (CKD-EPI)AfAm 22.78 Est GFR (CKD-EPI)NonAf 19.65 POC Glucometer 116 Random Glucose 114 H Calcium 9.7 Magnesium Total Bilirubin 0.6 AST 15 ALT 18 Alkaline Phosphatase 125 H Creatine Kinase Troponin I B-Natriuretic Peptide Total Protein 7.2 Albumin 3.3 L TSH Digoxin Hep Bs Antigen Hep C Ab Diagnostic 02/22/19 02/22/19 02/22/19 10:54 16:43 22:34 WBC RBC Hgb Hct MCV MCH MCHC RDW Plt Count MPV Absolute Neuts (auto) Neutrophils % Lymphocytes % Monocytes % Eosinophils % Basophils % Nucleated RBC % Platelet Estimate Platelet Comment Anisocytosis Microcytosis PT with INR INR Sodium Potassium Chloride Carbon Dioxide Anion Gap BUN Creatinine Est GFR (CKD-EPI)AfAm Est GFR (CKD-EPI)NonAf POC Glucometer 179 119 137 Random Glucose Calcium Magnesium Total Bilirubin AST ALT Alkaline Phosphatase Creatine Kinase Troponin I B-Natriuretic Peptide Total Protein Albumin TSH Digoxin Hep Bs Antigen Hep C Ab Diagnostic 02/23/19 02/23/19 02/23/19 05:48 10:15 10:23 WBC 4.2 RBC 2.97 L Hgb 8.9 L Hct 29.2 L MCV 98.1 H MCH 29.9 MCHC 30.5 L RDW 19.8 H Plt Count 98 L MPV 8.5 Absolute Neuts (auto) Neutrophils % Lymphocytes % Monocytes % Eosinophils % Basophils % Nucleated RBC % Platelet Estimate Platelet Comment Anisocytosis Microcytosis PT with INR INR Sodium 138 Potassium 4.0 Chloride 100 Carbon Dioxide 31 Anion Gap 8 BUN 38.5 H Creatinine 2.9 H Est GFR (CKD-EPI)AfAm 18.12 Est GFR (CKD-EPI)NonAf 15.63 POC Glucometer 131 Random Glucose 149 H Calcium 9.2 Magnesium Total Bilirubin AST ALT Alkaline Phosphatase Creatine Kinase Troponin I B-Natriuretic Peptide Total Protein Albumin TSH Digoxin Hep Bs Antigen Hep C Ab Diagnostic Home Medication List Medication Instructions Recorded Confirmed Type Acetaminophen [8Hr Muscle 650 mg PO PRN PRN 02/19/19 02/19/19 History Aches-Pain] Ammonium Lactate Lotion 1 applic TP BID 02/19/19 02/19/19 History [Lac-Hydrin 12% Lotion -] Bacitracin - [Bacitracin Topical 1 applic TP BID 02/19/19 02/19/19 History Ointment -] Buspirone HCl [Buspar -] 5 mg PO BID 02/19/19 02/19/19 History Calcitriol [Rocaltrol -] 0.25 mcg PO DAILY 02/19/19 02/19/19 History Collagenase Clostridium Hist. 1 applic TP DAILY 02/19/19 02/19/19 History [Santyl] Digoxin [Lanoxin] 125 mcg PO DAILY PRN 02/19/19 02/19/19 History Fludrocortisone Acetate [Florinef 0.1 mg PO DAILY 02/19/19 02/19/19 History -] Guaifenesin/Dextromethorphan 237 ml PO PRN PRN 02/19/19 02/19/19 History [Robitussin Cough-Chest Dm Liq] Hydrocortisone Acetate [Anusol Hc 25 mg RC PRN PRN 02/19/19 02/19/19 History Suppository -] Ipratropium/Albuterol Sulfate 3 ml IH Q4H PRN 02/19/19 02/19/19 History [Iprat-Albut 0.5-3(2.5) mg/3 ml] Levothyroxine [Synthroid -] 50 mcg PO DAILY 02/19/19 02/19/19 History Lidocaine/Prilocaine Cream [Emla -] 1 applic TP Q4H 02/19/19 02/19/19 History Melatonin 5 mg PO DAILY 02/19/19 02/19/19 History Midodrine HCl 10 mg PO Q8H 02/19/19 02/19/19 History Nystatin Ointment [Mycostatin 1 applic TP BID 02/19/19 02/19/19 History Ointment -] Ondansetron [Zofran -] 4 mg PO PRN PRN 02/19/19 02/19/19 History Pantoprazole Sodium [Protonix] 40 mg PO DAILY 02/19/19 02/19/19 History Rivaroxaban [Xarelto] 15 mg PO DAILY 02/19/19 02/19/19 History Sennosides [Senna] 8.6 mg PO HS 02/19/19 02/19/19 History Sertraline HCl [Zoloft -] 50 mg PO DAILY 02/19/19 02/19/19 History Silver Sulfadiazine [Silvadene] 1 applic TP DAILY 02/19/19 02/19/19 History Vitamin B Comp W-C [Nephro-Evert -] 1 tablet PO DAILY 02/19/19 02/19/19 History Zinc Oxide 20% Topical Oint 454 gm TD BID 02/19/19 02/19/19 History Zinc Sulfate [Orazinc] 220 mg PO DAILY 02/19/19 02/19/19 History Active Medications Generic Name Dose Route Start Last Admin Trade Name Roberto PRN Reason Stop Dose Admin Albuterol/Ipratropium 1 amp 02/20/19 08:00 02/23/19 12:23 Duoneb - NEB Not Given RQID [facility] Amino Acids 30 ml 02/20/19 08:00 02/23/19 08:30 Prosource No Carb Liquid Pkt PO 30 ml BID@0800,1730 [facility] Administration Buspirone HCl 5 mg 02/20/19 10:00 02/23/19 09:46 Buspar - PO 5 mg BID [facility] Administration Calcitriol 0.75 mcg 02/20/19 06:00 02/23/19 06:26 Rocaltrol - PO 0.75 mcg TID [facility] Administration Digoxin 0.0625 mg 02/20/19 10:00 02/23/19 09:47 Lanoxin - PO 0.0625 mg DAILY [facility] Administration Docusate Sodium 300 mg 02/20/19 22:00 02/22/19 22:30 Colace - PO 300 mg HS [facility] Administration Fludrocortisone Acetate 0.2 mg 02/20/19 10:00 02/23/19 09:47 Florinef - PO 0.2 mg DAILY [facility] Administration Sodium Chloride 1,000 mls @ 75 mls/hr 02/19/19 12:30 02/22/19 10:39 Normal Saline - IV Not Given ASDIR [facility] Sodium Chloride 250 mls @ 3,000 mls/hr 02/23/19 10:00 Normal Saline - IV 02/24/19 09:59 PRN PRN Hypotension during Dialysis Insulin Aspart 1 vial 02/20/19 07:00 02/23/19 11:52 Novolog Vial Sliding Scale - SQ Not Given ACHS [facility] Protocol Levalbuterol HCl 0.31 mg 02/19/19 22:57 Xopenex IH Q8H PRN ASTHMA Levothyroxine Sodium 25 mcg 02/20/19 07:00 02/23/19 06:25 Synthroid - PO 25 mcg DAILY@0700 [facility] Administration Melatonin 5 mg 02/20/19 22:00 02/22/19 22:30 Melatonin PO 5 mg HS [facility] Administration Midodrine 10 mg 02/19/19 22:57 Proamatine - PO Q8H PRN HYPOTENSION Pantoprazole Sodium 40 mg 02/20/19 10:00 02/23/19 09:47 Protonix - PO 40 mg DAILY [facility] Administration Rivaroxaban 15 mg 02/20/19 18:00 02/22/19 18:00 Xarelto PO 15 mg DAILY@1800 [facility] Administration Sertraline HCl 50 mg 02/20/19 10:00 02/23/19 09:47 Zoloft - PO 50 mg DAILY [facility] Administration Microbiology 02/19/19 16:16 Blood - Peripheral Venous Blood Culture - Preliminary NO GROWTH OBTAINED AFTER 72 HOURS, INCUBATION TO CONTINUE FOR 2 DAYS. 02/19/19 16:16 Blood - Peripheral Venous Blood Culture - Preliminary NO GROWTH OBTAINED AFTER 72 HOURS, INCUBATION TO CONTINUE FOR 2 DAYS. Condition: Stable - Instructions Diet, Activity, Other Instructions: follow up with pmd follow up with [employer] continue dialysis on scheduled days give [place]rodine before dialysis turn q2h Bipap at bedtime continue with medication as prescribed return to ER if severe pain, respiratory distress, chest pain Referrals: Roxanne Molina MD [Staff Physician] - Disposition: NURSING HOME FACILITY - Home Medications Comprehensive Discharge Medication List: Ambulatory Orders Acetaminophen [8Hr Muscle Aches-Pain] 650 mg PO PRN PRN 02/19/19 Ammonium Lactate Lotion [Lac-Hydrin 12% Lotion -] 1 applic TP BID 02/19/19 Bacitracin - [Bacitracin Topical Ointment -] 1 applic TP BID 02/19/19 Buspirone HCl [Buspar -] 5 mg PO BID 02/19/19 Calcitriol [Rocaltrol -] 0.25 mcg PO DAILY 02/19/19 Collagenase Clostridium Hist. [Santyl] 1 applic TP DAILY 02/19/19 Digoxin [Lanoxin] 125 mcg PO DAILY PRN 02/19/19 Fludrocortisone Acetate [Florinef -] 0.1 mg PO DAILY 02/19/19 Guaifenesin/Dextromethorphan [Robitussin Cough-Chest Dm Liq] 237 ml PO PRN PRN 02/19/19 Hydrocortisone Acetate [Anusol Hc Suppository -] 25 mg RC PRN PRN 02/19/19 Ipratropium/Albuterol Sulfate [Iprat-Albut 0.5-3(2.5) mg/3 ml] 3 ml IH Q4H PRN 02/19/19 Levothyroxine [Synthroid -] 50 mcg PO DAILY 02/19/19 Lidocaine/Prilocaine Cream [Emla -] 1 applic TP Q4H 02/19/19 Melatonin 5 mg PO DAILY 02/19/19 Midodrine HCl 10 mg PO Q8H 02/19/19 Nystatin Ointment [Mycostatin Ointment -] 1 applic TP BID 02/19/19 Ondansetron [Zofran -] 4 mg PO PRN PRN 02/19/19 Pantoprazole Sodium [Protonix] 40 mg PO DAILY 02/19/19 Rivaroxaban [Xarelto] 15 mg PO DAILY 02/19/19 Sennosides [Senna] 8.6 mg PO HS 02/19/19 Sertraline HCl [Zoloft -] 50 mg PO DAILY 02/19/19 Silver Sulfadiazine [Silvadene] 1 applic TP DAILY 02/19/19 Vitamin B Comp W-C [Nephro-Evert -] 1 tablet PO DAILY 02/19/19 Zinc Oxide 20% Topical Oint 454 gm TD BID 02/19/19 Zinc Sulfate [Orazinc] 220 mg PO DAILY 02/19/19 Albuterol 2.5/Ipratropium 0.5 [Duoneb -] 1 amp NEB RQID amp 02/23/19 Amino Acids/Protein Hydrolys [Prosource No Carb Liquid Pkt] 30 ml PO BID@0800, 1730 packet 02/23/19 Buspirone HCl [Buspar -] 5 mg PO BID tablet 02/23/19 Calcitriol [Calcitriol -] 0.75 mcg PO TID capsule 02/23/19 Digoxin [Lanoxin -] 0.0625 mg PO DAILY tablet 02/23/19 Docusate Sodium [Colace -] 300 mg PO HS capsule 02/23/19 Fludrocortisone Acetate [Florinef -] 0.2 mg PO DAILY tablet 02/23/19 Insulin Sliding Scale [Novolog Vial Sliding Scale -] 1 vial SQ ACHS units 02/23 Levalbuterol HCl [Xopenex] 0.31 mg IH Q8H PRN vial.neb 02/23/19 Levothyroxine [Synthroid -] 25 mcg PO DAILY@0700 tablet 02/23/19 Melatonin 5 mg PO HS tab 02/23/19 Midodrine HCl [Proamatine -] 10 mg PO Q8H PRN tablet 02/23/19 Pantoprazole Sodium [Protonix -] 40 mg PO DAILY tablet.ec 02/23/19 Rivaroxaban [Xarelto] 15 mg PO DAILY@1800 tablet 02/23/19 Sertraline HCl [Zoloft -] 50 mg PO DAILY tablet 02/23/19
[2019-02-23 15:45] VITALS: TEMP 98.1
[2019-02-23] MEDS: RIVAROXABAN 15 MG TABLET PO SCH (18:42)
== END 2019-02-23 20:10 | DRG 189 ==
LOC: JER 21:16 → JERBED 02-19 00:49 → J6S 02-19 15:25
PROVIDERS: ADMIT Family Medicine; ATTEND Family Medicine
PROC: 5A1D70Z Performance of Urinary Filtration, Intermittent, Less than 6 Hours Per Day (ICD-10-PCS; principal; 2019-02-19)
PROC: 5A1D70Z Performance of Urinary Filtration, Intermittent, Less than 6 Hours Per Day (ICD-10-PCS; 2019-02-21)
PROC: 5A1D70Z Performance of Urinary Filtration, Intermittent, Less than 6 Hours Per Day (ICD-10-PCS; 2019-02-22)
PROC: 5A1D70Z Performance of Urinary Filtration, Intermittent, Less than 6 Hours Per Day (ICD-10-PCS; 2019-02-23)
DX: J96.01 Acute respiratory failure with hypoxia (principal); N18.6 End stage renal disease; I50.33 Acute on chronic diastolic (congestive) heart failure; I12.0 Hypertensive chronic kidney disease with stage 5 chronic kidney disease or end stage renal disease; J90 Pleural effusion, not elsewhere classified; J96.02 Acute respiratory failure with hypercapnia; J44.9 Chronic obstructive pulmonary disease, unspecified; E03.9 Hypothyroidism, unspecified; I48.91 Unspecified atrial fibrillation; I27.20 Pulmonary hypertension, unspecified; E11.9 Type 2 diabetes mellitus without complications; E87.70 Fluid overload, unspecified; I95.9 Hypotension, unspecified; K21.9 Gastro-esophageal reflux disease without esophagitis; J98.09 Other diseases of bronchus, not elsewhere classified; F03.90 Unspecified dementia, unspecified severity, without behavioral disturbance, psychotic disturbance, mood disturbance, and anxiety; G47.30 Sleep apnea, unspecified; E66.8 Other obesity; Z99.2 Dependence on renal dialysis; Z86.718 Personal history of other venous thrombosis and embolism; Z86.711 Personal history of pulmonary embolism; Z85.42 Personal history of malignant neoplasm of other parts of uterus; Z68.31 Body mass index [BMI] 31.0-31.9, adult
CPT/HCPCS: 36415; 71045-TC-FY; 80048; 80053; 80162; 82550; 82962; 83735; 83880; 84443; 84484; 85025; 85027; 85610; 86803; 87040; 87340; 93005; 93010; 93306-TC; 94640; 94660; 99285-25; J0885; J1644; J7030; P9047

== ENCOUNTER 2019-02-27 23:29 | Inpatient (IN) | payer OTHER ==
[2019-02-27 23:41] VITALS: BMI 36.6
--- NOTE | 2019-02-28 00:02 | PDOC ---
History of Present Illness - General Stated Complaint: SHORTNESS OF BREATH Time Seen by Provider: 02/27/19 23:57 - History of Present Illness Initial Comments: 02/28/19 03:29 HPI: 73 y/o F with hx of ESRD on HD MWF, Afib on digoxin, hypothyroid, COPD, CHF who was [facility]18[facility]02[facility]22[facility] for SOB that started earlier today. Patient had incomplete HD on Thursday due to SOB and facility was not able to accommodate bipap during dialysis. She reports no other symptoms. Patient denies fever, chills, night sweats, CROFT, vision change, chest pain, palpitations, cough, leg swelling, abdominal pain, nausea, vomiting, diarrhea, constipation, dysuria, hematuria, BPR, lightheadedness, weakness, sensory changes. PMHx: as noted above ROS: as noted SHx: Denies tobacco use; no alcohol use; no rec drugs Allergies: NKDA ROS: GENERAL/CONSTITUTIONAL: No fever or chills. No weakness. HEAD, EYES, EARS, NOSE AND THROAT: No change in vision. No ear pain or discharge. No sore throat. CARDIOVASCULAR: No chest pain or shortness of breath RESPIRATORY: No cough, wheezing, or hemoptysis. GASTROINTESTINAL: No nausea, vomiting, diarrhea or constipation. GENITOURINARY: No dysuria, frequency, or change in urination. MUSCULOSKELETAL: No joint or muscle swelling or pain. No neck or back pain. SKIN: No rash NEUROLOGIC: No headache, vertigo, loss of consciousness, or change in strength/ sensation. ENDOCRINE: No increased thirst. No abnormal weight change HEMATOLOGIC/LYMPHATIC: No anemia, easy bleeding, or history of blood clots. ALLERGIC/IMMUNOLOGIC: No hives or skin allergy. PE: GENERAL: Awake, alert, and fully oriented, no acute distressm bipap in place HEAD: No signs of trauma, normocephalic, atraumatic EYES: EOMI, sclera anicteric, conjunctiva clear ENT: Auricles normal inspection, hearing grossly normal, right ear with signifcant cerumen impaction and appearance or purulent drainage, nares patent, oropharynx clear without exudates. Moist mucosa NECK: Normal ROM, no lymphadenopathy LUNGS: No increased work of breathing, symmetrical chest rise, clear to auscultation bilaterally, no wheezes, crackles or rhonchi HEART: Regular rate and rhythm, normal S1 and S2, no murmurs, peripheral pulses 2+ and equal bilaterally. ABDOMEN: Soft, nondistended, nontender, normoactive bowel sounds. No guarding, no rebound. No masses : BL buttocks with raw and excoriated epidermis EXTREMITIES: Normal inspection, Normal range of motion, no edema. No clubbing or cyanosis. NEUROLOGICAL: Cranial nerves II through XII grossly intact. Normal speech, normal gait, no focal sensorimotor deficits SKIN: Warm, Dry, normal turgor, no rashes or lesions noted Past History - Past Medical History Allergies/Adverse Reactions: Allergies Allergy/AdvReac Type Severity Reaction Status Date / Time No Known Allergies Allergy Unverified 01/19/19 11:43 Home Medications: Ambulatory Orders Acetaminophen [8Hr Muscle Aches-Pain] 650 mg PO PRN PRN 02/19/19 Ammonium Lactate Lotion [Lac-Hydrin 12% Lotion -] 1 applic TP BID 02/19/19 Bacitracin - [Bacitracin Topical Ointment -] 1 applic TP BID 02/19/19 Buspirone HCl [Buspar -] 5 mg PO BID 02/19/19 Calcitriol [Rocaltrol -] 0.25 mcg PO DAILY 02/19/19 Collagenase Clostridium Hist. [Santyl] 1 applic TP DAILY 02/19/19 Digoxin [Lanoxin] 125 mcg PO DAILY PRN 02/19/19 Fludrocortisone Acetate [Florinef -] 0.1 mg PO DAILY 02/19/19 Guaifenesin/Dextromethorphan [Robitussin Cough-Chest Dm Liq] 237 ml PO PRN PRN 02/19/19 Hydrocortisone Acetate [Anusol Hc Suppository -] 25 mg RC PRN PRN 02/19/19 Ipratropium/Albuterol Sulfate [Iprat-Albut 0.5-3(2.5) mg/3 ml] 3 ml IH Q4H PRN 02/19/19 Levothyroxine [Synthroid -] 50 mcg PO DAILY 02/19/19 Lidocaine/Prilocaine Cream [Emla -] 1 applic TP Q4H 02/19/19 Melatonin 5 mg PO DAILY 02/19/19 Midodrine HCl 10 mg PO Q8H 02/19/19 Nystatin Ointment [Mycostatin Ointment -] 1 applic TP BID 02/19/19 Ondansetron [Zofran -] 4 mg PO PRN PRN 02/19/19 Pantoprazole Sodium [Protonix] 40 mg PO DAILY 02/19/19 Rivaroxaban [Xarelto] 15 mg PO DAILY 02/19/19 Sennosides [Senna] 8.6 mg PO HS 02/19/19 Sertraline HCl [Zoloft -] 50 mg PO DAILY 02/19/19 Silver Sulfadiazine [Silvadene] 1 applic TP DAILY 02/19/19 Vitamin B Comp W-C [Nephro-Evert -] 1 tablet PO DAILY 02/19/19 Zinc Oxide 20% Topical Oint 454 gm TD BID 02/19/19 Zinc Sulfate [Orazinc] 220 mg PO DAILY 02/19/19 Albuterol 2.5/Ipratropium 0.5 [Duoneb -] 1 amp NEB RQID amp 02/23/19 Amino Acids/Protein Hydrolys [Prosource No Carb Liquid Pkt] 30 ml PO BID@0800, 1730 packet 02/23/19 Buspirone HCl [Buspar -] 5 mg PO BID tablet 02/23/19 Calcitriol [Calcitriol -] 0.75 mcg PO TID capsule 02/23/19 Digoxin [Lanoxin -] 0.0625 mg PO DAILY tablet 02/23/19 Docusate Sodium [Colace -] 300 mg PO HS capsule 02/23/19 Fludrocortisone Acetate [Florinef -] 0.2 mg PO DAILY tablet 02/23/19 Insulin Sliding Scale [Novolog Vial Sliding Scale -] 1 vial SQ ACHS units 02/23 Levalbuterol HCl [Xopenex] 0.31 mg IH Q8H PRN vial.neb 02/23/19 Levothyroxine [Synthroid -] 25 mcg PO DAILY@0700 tablet 02/23/19 Melatonin 5 mg PO HS tab 02/23/19 Midodrine HCl [Proamatine -] 10 mg PO Q8H PRN tablet 02/23/19 Pantoprazole Sodium [Protonix -] 40 mg PO DAILY tablet.ec 02/23/19 Rivaroxaban [Xarelto] 15 mg PO DAILY@1800 tablet 02/23/19 Sertraline HCl [Zoloft -] 50 mg PO DAILY tablet 02/23/19 Anemia: Yes Asthma: No Cancer: Yes (endometrial ca, s/p hysterectomy) Cardiac Disorders: Yes (A-fib) CVA: No COPD: No CHF: Yes DVT: Yes Dementia: No Diabetes: Yes GI Disorders: No (cdiff) Disorders: Yes (ESRD, HD, Rfemoral tessio) HTN: No Hypercholesterolemia: No Liver Disease: No Seizures: No Thyroid Disease: Yes (hypothyroidism) - Surgical History Abdominal Surgery: No Appendectomy: No Cardiac Surgery: No Cholecystectomy: No Lung Surgery: No Neurologic Surgery: No Orthopedic Surgery: Yes (spinal surgery december 2017,feb 2017 Lt arm fracture with tendon transfer) - Suicide/Smoking/Psychosocial Hx Smoking History: Unknown if ever smoked Have you smoked in the past 12 months: No Hx Alcohol Use: No Drug/Substance Use Hx: No Substance Use Type: None Hx Substance Use Treatment: No *Physical Exam - Vital Signs Last Vital Signs Temp Pulse Resp BP Pulse Ox 96.6 F L 106 H 30 H 103/70 97 02/27/19 23:38 02/27/19 23:38 02/27/19 23:38 02/27/19 23:38 02/27/19 23:38 ED Treatment Course - LABORATORY CBC & Chemistry Diagram: 02/28/19 01:00 02/28/19 01:00 Medical Decision Making - Medical Decision Making 02/28/19 05:18 73 y/o F with hx of ESRD on HD MWF, Afib on digoxin, hypothyroid, COPD, CHF who was recently admitted (02/18-02/22) [facility] from [facility] for SOB that started earlier today. Patient had incomplete HD on Thursday due to SOB and facility was not able to accommodate bipap during dialysis. She reports no other symptoms. -digoxin, cbc, cmp, lactate, bnp, cardiac prof -ekg, cxr -bipap, RT -duoneb -admit -will require nephro for dialysis 02/28/19 05:19 Admitted to [facility] under Dr Camargo Elevated BNP but labs otherwise grossly unremarkable CXR: similar to previous CXR prior to DC EKG: simnilar in morphology to previous study prior to DC *DC/Admit/Observation/Transfer Diagnosis at time of Disposition: Shortness of breath Acute exacerbation of congestive heart failure Qualifiers: Heart failure type: unspecified Qualified Code(s): I50.9 - Heart failure, unspecified - Discharge Dispostion Condition at time of disposition: Improved Decision to Admit order: Yes - Referrals - Patient Instructions - Post Discharge Activity
[2019-02-28] MEDS ORDERED: ALBUTEROL SO4 2.5/IPRATROPIUM 0.5 INH SOL 3 ML VIAL.NEB. NEB ONE ×3 (00:58→13:47)
[2019-02-28] MEDS: ALBUTEROL SO4 2.5/IPRATROPIUM 0.5 INH SOL 3 ML VIAL.NEB. NEB SCH ×5 (01:04→20:30)
[2019-02-28 01:15] LABS: BASO % 1.3 % (0-2.0); EOS % 2.4 % (0-4.5); HEMATOCRIT 32.9 % (32.4-45.2); HEMOGLOBIN 10.2 GM/dL (10.7-15.3); LYMPH % 11.9 % (8-40); MCH 29.6 pg (25.7-33.7); MEAN CELL VOLUME 95.4 fl (80-96); MEAN PLT VOLUME 8.9 fl (7.5-11.1); MONO % 6.7 % (3.8-10.2); NEUT % 77.7 % (42.8-82.8); PLATELET COUNT 128 K/MM3 (134-434); RBC 3.45 M/mm3 (3.60-5.2); RDW 19.1 % (11.6-15.6); WHITE BLOOD COUNT 4.8 K/mm3 (4.0-10.0)
--- NOTE | 2019-02-28 01:45 | PDOC ---
Attending Attestation - Resident Resident Name: MedardoRamonmj - ED Attending Attestation I have performed the following: I have examined & evaluated the patient, The case was reviewed & discussed with the resident, I agree w/resident's findings & plan, Exceptions are as noted - HPI HPI: 02/28/19 01:43 this 73 yo female BIB[facility] from [facility] for [facility]ness of breath. Pt 's last full dialysis treatment was Thu. ESRD w Mon.Thu,Thu dialysis - Physicial Exam PE: 02/28/19 01:59 73 yo female p/w sob,currently on BIPAP 26/12, she also has c/o clogged ears head ncat lungs +bibasilar rales b/l cvs irreg rreg abd nontender ext + edema neuro alert,conversant - Medical Decision Making 02/28/19 02:12 73 yo female p/w chronic chf,ESRD, requires dialysis and admission electrolytes are wnl bnp>175,00 negative troponin
[2019-02-28 01:47] LABS: ALBUMIN 3.5 g/dl (3.4-5.0); BILIRUBIN,TOTAL 0.4 mg/dL (0.2-1); BLOOD UREA NITROGEN 63.8 mg/dL (7-18); CREATININE 4.1 mg/dL (0.55-1.3); POTASSIUM 4.7 mmol/L (3.5-5.1); TOT PROT 6.9 g/dl (6.4-8.2)
[2019-02-28 01:53] LABS: ACTIVATED PTT 41.8 SECONDS (25.2-36.5); INR 1.79 (0.83-1.09); PROTHROMBIN TIME (PATIENT) 21.3 SEC (9.7-13.0)
[2019-02-28 01:56] LABS: N-TERMINAL BNP > 175000.0 pg/ml (5-125)
[2019-02-28 02:47] LABS: PH,URINE 8.5 (5.0-8.0); URINE APPEARANCE Turbid; URINE BILIRUBIN 1+ (NEGATIVE); URINE COLOR Yellow; URINE GLUCOSE (UA) Trace (NEGATIVE); URINE KETONE Negative (NEGATIVE); URINE LEUK ESTERASE 3+ (NEGATIVE); URINE NITRITE Negative (NEGATIVE); URINE PROTEIN 3+ (NEGATIVE); URINE UROBILINOGEN 0.2 mg/dL (0.2-1.0)
[2019-02-28 02:49] LABS: EPI CELLS 3+ /HPF (0-5/HPF); URINE BACTERIA 2+ /hpf (NEGATIVE); URINE WBC 20-30 /hpf (0-5)
[2019-02-28] MEDS ORDERED: OFLOXACIN 0.3% OTIC SOLUTION 5 ML BOTTLE AD ONE (03:41)
--- NOTE | 2019-02-28 03:56 | HP ---
Admitting History and Physical - Primary Care Physician PCP: Johnny Houston ([facility]) - Admission Chief Complaint: SOB, Missed Dialysis History of Present Illness: This is a 73 y/o woman from [facility] with a PMHx of ESRD(M,W,F), Afib (on Xarelto), CHF, COPD (2L), DVT (Xarelto), DM, Hypothyroidism, CHERISE, Endometrial Ca s/p Hysterectomy, recent admission for Acute on Chronic Resp Failure, CHF 02/19 -02/23/19. Who presents to the ED with SOB. Per the patient's daughter the patient missed her HD on Thursday. History Source: Family Member, Transfer Record Limitations to Obtaining History: Clinical Condition - Past Medical History Cardiovascular: Yes: AFIB, CHF, Deep Vein Thrombosis Pulmonary: Yes: Bronchitis, Pneumonia, Previously Intubated, Pulmonary Embolus, Sleep Apnea Gastrointestinal: Yes: GERD Renal/: Yes: Renal Failure, Hemodialysis Heme/Onc: Yes: Anemia Psych: Yes: Depression Endocrine: Yes: Diabetes Mellitus, Hypothyroidism - Smoking History Smoking history: Unknown if ever smoked Have you smoked in the past 12 months: No - Alcohol/Substance Use Hx Alcohol Use: No History of Substance Use: reports: None - Social History Usual Living Arrangement: Yes: Shelter ADL: Support Services History of Recent Travel: No Home Medications - Allergies Allergies/Adverse Reactions: Allergies Allergy/AdvReac Type Severity Reaction Status Date / Time No Known Allergies Allergy Unverified 01/19/19 11:43 - Home Medications Home Medications: Ambulatory Orders Acetaminophen [8Hr Muscle Aches-Pain] 650 mg PO PRN PRN 02/19/19 Ammonium Lactate Lotion [Lac-Hydrin 12% Lotion -] 1 applic TP BID 02/19/19 Bacitracin - [Bacitracin Topical Ointment -] 1 applic TP BID 02/19/19 Buspirone HCl [Buspar -] 5 mg PO BID 02/19/19 Calcitriol [Rocaltrol -] 0.25 mcg PO DAILY 02/19/19 Collagenase Clostridium Hist. [Santyl] 1 applic TP DAILY 02/19/19 Digoxin [Lanoxin] 125 mcg PO DAILY PRN 02/19/19 Fludrocortisone Acetate [Florinef -] 0.1 mg PO DAILY 02/19/19 Guaifenesin/Dextromethorphan [Robitussin Cough-Chest Dm Liq] 237 ml PO PRN PRN 02/19/19 Hydrocortisone Acetate [Anusol Hc Suppository -] 25 mg RC PRN PRN 02/19/19 Ipratropium/Albuterol Sulfate [Iprat-Albut 0.5-3(2.5) mg/3 ml] 3 ml IH Q4H PRN 02/19/19 Levothyroxine [Synthroid -] 50 mcg PO DAILY 02/19/19 Lidocaine/Prilocaine Cream [Emla -] 1 applic TP Q4H 02/19/19 Melatonin 5 mg PO DAILY 02/19/19 Midodrine HCl 10 mg PO Q8H 02/19/19 Nystatin Ointment [Mycostatin Ointment -] 1 applic TP BID 02/19/19 Ondansetron [Zofran -] 4 mg PO PRN PRN 02/19/19 Pantoprazole Sodium [Protonix] 40 mg PO DAILY 02/19/19 Rivaroxaban [Xarelto] 15 mg PO DAILY 02/19/19 Sennosides [Senna] 8.6 mg PO HS 02/19/19 Sertraline HCl [Zoloft -] 50 mg PO DAILY 02/19/19 Silver Sulfadiazine [Silvadene] 1 applic TP DAILY 02/19/19 Vitamin B Comp W-C [Nephro-Evert -] 1 tablet PO DAILY 02/19/19 Zinc Oxide 20% Topical Oint 454 gm TD BID 02/19/19 Zinc Sulfate [Orazinc] 220 mg PO DAILY 02/19/19 Albuterol 2.5/Ipratropium 0.5 [Duoneb -] 1 amp NEB RQID amp 02/23/19 Amino Acids/Protein Hydrolys [Prosource No Carb Liquid Pkt] 30 ml PO BID@0800, 1730 packet 02/23/19 Buspirone HCl [Buspar -] 5 mg PO BID tablet 02/23/19 Calcitriol [Calcitriol -] 0.75 mcg PO TID capsule 02/23/19 Digoxin [Lanoxin -] 0.0625 mg PO DAILY tablet 02/23/19 Docusate Sodium [Colace -] 300 mg PO HS capsule 02/23/19 Fludrocortisone Acetate [Florinef -] 0.2 mg PO DAILY tablet 02/23/19 Insulin Sliding Scale [Novolog Vial Sliding Scale -] 1 vial SQ ACHS units 02/23 Levalbuterol HCl [Xopenex] 0.31 mg IH Q8H PRN vial.neb 02/23/19 Levothyroxine [Synthroid -] 25 mcg PO DAILY@0700 tablet 02/23/19 Melatonin 5 mg PO HS tab 02/23/19 Midodrine HCl [Proamatine -] 10 mg PO Q8H PRN tablet 02/23/19 Pantoprazole Sodium [Protonix -] 40 mg PO DAILY tablet.ec 02/23/19 Rivaroxaban [Xarelto] 15 mg PO DAILY@1800 tablet 02/23/19 Sertraline HCl [Zoloft -] 50 mg PO DAILY tablet 02/23/19 Family Disease History - Family Disease History Family History: Unable to Obtain Review of Systems - Review of Systems Constitutional: reports: No Symptoms Eyes: reports: No Symptoms HENT: reports: No Symptoms Neck: reports: No Symptoms Cardiovascular: reports: Shortness of Breath Respiratory: reports: SOB, SOB on Exertion Gastrointestinal: reports: No Symptoms Genitourinary: reports: No Symptoms Breasts: reports: No Symptoms Reported Musculoskeletal: reports: No Symptoms Integumentary: reports: No Symptoms Neurological: reports: No Symptoms Endocrine: reports: No Symptoms Hematology/Lymphatic: reports: No Symptoms Psychiatric: reports: No Symptoms Pain Intensity: 0 Physical Examination Vital Signs: Vital Signs Temperature 95.8 F L 02/28/19 02:31 Pulse Rate 79 02/28/19 02:31 Respiratory Rate 16 02/28/19 02:31 Blood Pressure 106/54 L 02/28/19 02:31 O2 Sat by Pulse Oximetry (%) 96 02/28/19 02:31 Constitutional: Yes: No Distress, Anxious, Obese Eyes: Yes: Conjunctiva Clear (injected), PERRL HENT: Yes: WNL, Atraumatic, Normocephalic Neck: Yes: WNL, Supple, Trachea Midline Cardiovascular: Yes: Pulse Irregular, S1, S2 Respiratory: Yes: Diminished, On BiPap, Rhonchi Gastrointestinal: Yes: Normal Bowel Sounds, Soft, Abdomen, Obese ...Rectal Exam: Yes: Sphincter Tone Normal Renal/: Yes: Incontinence Breast(s): Yes: WNL Musculoskeletal: Yes: WNL Edema: No Peripheral Pulses WNL: Yes Integumentary: Yes: Pressure Ulcer (bilateral buttocks) Wound/Incision: Yes: Reddened Neurological: Yes: Alert, Cran Nerves II-XII Intact ...Motor Strength: WNL Psychiatric: Yes: Alert Labs: CBC, BMP 02/28/19 01:00 02/28/19 01:00 Laboratory Results - last 24 hr 02/28/19 02/28/19 02/28/19 01:00 01:00 01:00 WBC 4.8 RBC 3.45 L Hgb 10.2 L Hct 32.9 MCV 95.4 MCH 29.6 MCHC 31.0 L RDW 19.1 H Plt Count 128 L D MPV 8.9 Absolute Neuts (auto) 3.7 Neutrophils % 77.7 D Lymphocytes % 11.9 D Monocytes % 6.7 Eosinophils % 2.4 D Basophils % 1.3 Nucleated RBC % 0 PT with INR INR PTT (Actin FS) Sodium 137 Potassium 4.7 Chloride 100 Carbon Dioxide 28 Anion Gap 10 BUN 63.8 H Creatinine 4.1 H Est GFR (CKD-EPI)AfAm 11.92 Est GFR (CKD-EPI)NonAf 10.29 Random Glucose 128 H Lactic Acid Calcium 9.0 Total Bilirubin 0.4 AST 12 L ALT 17 Alkaline Phosphatase 128 H Creatine Kinase 24 L Troponin I 0.04 B-Natriuretic Peptide > 873162.0 H Total Protein 6.9 Albumin 3.5 Urine Color Urine Appearance Urine pH Ur Specific [place] Urine Protein Urine Glucose (UA) Urine Ketones Urine Blood Urine Nitrite Urine Bilirubin Urine Urobilinogen Ur Leukocyte Esterase Urine WBC (Auto) Urine RBC (Auto) U Epithel Cells (Auto) Urine Bacteria (Auto) Digoxin 02/28/19 02/28/19 02/28/19 01:00 01:00 01:30 WBC RBC Hgb Hct MCV MCH MCHC RDW Plt Count MPV Absolute Neuts (auto) Neutrophils % Lymphocytes % Monocytes % Eosinophils % Basophils % Nucleated RBC % PT with INR 21.30 H INR 1.79 H PTT (Actin FS) 41.8 H Sodium Potassium Chloride Carbon Dioxide Anion Gap BUN Creatinine Est GFR (CKD-EPI)AfAm Est GFR (CKD-EPI)NonAf Random Glucose Lactic Acid 1.1 Calcium Total Bilirubin AST ALT Alkaline Phosphatase Creatine Kinase Troponin I B-Natriuretic Peptide Total Protein Albumin Urine Color Urine Appearance Urine pH Ur Specific [place] Urine Protein Urine Glucose (UA) Urine Ketones Urine Blood Urine Nitrite Urine Bilirubin Urine Urobilinogen Ur Leukocyte Esterase Urine WBC (Auto) Urine RBC (Auto) U Epithel Cells (Auto) Urine Bacteria (Auto) Digoxin 1.11 02/28/19 02/28/19 01:30 02:20 WBC RBC Hgb Hct MCV MCH MCHC RDW Plt Count MPV Absolute Neuts (auto) Neutrophils % Lymphocytes % Monocytes % Eosinophils % Basophils % Nucleated RBC % PT with INR Cancelled INR Cancelled PTT (Actin FS) Sodium Potassium Chloride Carbon Dioxide Anion Gap BUN Creatinine Est GFR (CKD-EPI)AfAm Est GFR (CKD-EPI)NonAf Random Glucose Lactic Acid Calcium Total Bilirubin AST ALT Alkaline Phosphatase Creatine Kinase Troponin I B-Natriuretic Peptide Total Protein Albumin Urine Color Yellow Urine Appearance Turbid Urine pH 8.5 H Ur Specific [place] 1.020 Urine Protein 3+ H Urine Glucose (UA) Trace Urine Ketones Negative Urine Blood 3+ H Urine Nitrite Negative Urine Bilirubin 1+ H Urine Urobilinogen 0.2 Ur Leukocyte Esterase 3+ H Urine WBC (Auto) 20-30 Urine RBC (Auto) 10-20 U Epithel Cells (Auto) 3+ Urine Bacteria (Auto) 2+ Digoxin Intake & Output 02/25/19 02/26/19 02/27/19 02/28/19 23:59 23:59 23:59 23:59 Weight 90.718 kg Imaging - Results Chest X-ray: Image Reviewed EKG: Image Reviewed Problem List - Problems (1) Acute exacerbation of congestive heart failure Assessment/Plan: Missed dialysis on Thursday, requires HD today Cardiac monitoring BNP> [id number] Chest Xray image- pulm vascular congestion Appreciate Cardiology consult Continue Bipap, titrate accordingly O2 Serial enzymes neg x1, trend Echo 02/21/19- EF 55-60%, RVSF mod reduced, LA mild dilated, mild MR, mod-severe TR, mild-mod , mod PVR, pleural effusion present Strict INOs Daily weights Code(s): I50.9 - HEART FAILURE, UNSPECIFIED Qualifiers: Heart failure type: unspecified Qualified Code(s): I50.9 - Heart failure, unspecified (2) Acute on chronic respiratory failure with hypercapnia Assessment/Plan: Likely secondary to fluid overload- missed dialysis Continue Bipap, titrate Appreciate Pulm consult Code(s): J96.22 - ACUTE AND CHRONIC RESPIRATORY FAILURE WITH HYPERCAPNIA (3) COPD (chronic obstructive pulmonary disease) Assessment/Plan: O2 dependent Duonebs Continue home meds Appreciate Pulm consult Chest Xray image reviewed Monitor vitals Code(s): J44.9 - CHRONIC OBSTRUCTIVE PULMONARY DISEASE, UNSPECIFIED (4) Shortness of breath Assessment/Plan: Likely secondary to fluid overload Will require HD today BNP> 33287 Continue Bipap, titrate per ABG O2 Chest xray image- pulm vascular congestion Code(s): R06.02 - SHORTNESS OF BREATH (5) ESRD on hemodialysis Assessment/Plan: HD (Mo,We,Fr) Appreciate Nephrology consult for HD management Code(s): N18.6 - END STAGE RENAL DISEASE; Z99.2 - DEPENDENCE ON RENAL DIALYSIS (6) Afib Assessment/Plan: [id number] EKG- Afib rate controlled Continue Xarelto Code(s): I48.91 - UNSPECIFIED ATRIAL FIBRILLATION (7) Hypothyroid Assessment/Plan: Continue Levothyroxine Monitor TSH Code(s): E03.9 - HYPOTHYROIDISM, UNSPECIFIED (8) Sleep apnea Assessment/Plan: Bipap HS Settings per [place]: [id number] EPAP 5 Fio2 40% R 16 Monitor vitals Code(s): G47.30 - SLEEP APNEA, UNSPECIFIED (9) Functional quadriplegia Assessment/Plan: Complete immobility due to Acute on Chronic Respiratory Failure, CHF Requires total care Turn Q2H [place] Lift as needed Heel protectors Fall Precautions Code(s): R53.2 - FUNCTIONAL QUADRIPLEGIA (10) H/O deep venous thrombosis Assessment/Plan: Continue Xarelto Code(s): Z86.718 - PERSONAL HISTORY OF OTHER VENOUS THROMBOSIS AND EMBOLISM Assessment/Plan This is a 73 y/o woman from [facility] with a PMHx of ESRD (Mo,We,Fr), Anemia, Afib (on Xarelto), DVT, CHF, COPD, (on 2L), Sleep Apnea (CPAP-HS), Hypothyroidism, DM, Endometrial Ca s/p Hysterectomy, recent admission Acute on Chronic Renal Failure, CHF Exacerbation 02/19-02/23/19. Admitted to Telemetry for Acute on Chronic CHF, Acute on Chronic Respiratory Failure with Hypercapnia, ESRD for further evaluation of their emergent condition Plan: See Problem List FEN Fluid Restriction 1L Replete lytes prn Diabetic, Renal Diet, [place] Thickened Liquids DVT ppx SCDs Continue Xarelto Code Status: Full Code Dispo: Requires Inpatient Care Visit type - Emergency Visit Emergency Visit: Yes ED Registration Date: 02/28/19 Care time: The patient presented to the Emergency Department on the above date and was hospitalized for further evaluation of their emergent condition. - New Patient This patient is new to me today: Yes Date on this admission: 02/28/19 - Critical Care Critical Care patient: No
[2019-02-28] MEDS ORDERED: DEXTROMETHORPHAN PO PRN (07:01)
[2019-02-28] MEDS ORDERED: ALBUTEROL SO4 2.5/IPRATROPIUM 0.5 INH SOL 3 ML VIAL.NEB. NEB PRN (07:01)
[2019-02-28] MEDS ORDERED: LEVALBUTEROL HCL 0.31 MG/3 ML VIAL.NEB IH PRN (07:01)
[2019-02-28] MEDS ORDERED: ONDANSETRON 4 MG TABLET PO PRN (07:01)
[2019-02-28] MEDS ORDERED: [UNRECOGNIZED DRUG - OTHER] PO PRN (07:01)
[2019-02-28] MEDS ORDERED: MIDODRINE HCL 5 MG TABLET PO PRN (07:01)
[2019-02-28] MEDS ORDERED: ACETAMINOPHEN 650 MG PO PRN (07:01)
[2019-02-28] MEDS ORDERED: GUAIFENESIN PO PRN (07:01)
[2019-02-28] MEDS ORDERED: HYDROCORTISONE ACETATE 25 MG/SUPP.RECT RC PRN (07:01)
[2019-02-28] MEDS ORDERED: LIDOCAINE 2.5%/PRILOCAINE 2.5% (5 Gram/TUBE) TP SCH (07:15)
--- NOTE | 2019-02-28 08:43 | PN ---
Progress Note, Physician - Current Medication List Current Medications: Active Medications Albuterol/Ipratropium (Duoneb -) 1 amp NEB RQID [facility] Last Admin: 02/28/19 08:40 Dose: 1 amp Albuterol/Ipratropium (Duoneb -) 1 amp NEB Q4H PRN PRN Reason: WHEEZING Bacitracin (Bacitracin -) 1 applic TP BID [facility] Buspirone HCl (Buspar -) 5 mg PO BID [facility] Collagenase (Santyl -) 1 applic TP DAILY [facility]; Protocol Docusate Sodium (Colace -) 300 mg PO HS [facility] Fludrocortisone Acetate (Florinef -) 0.2 mg PO DAILY [facility] Hydrocortisone Acetate (Anusol Hc Suppository -) 25 mg RC PRN PRN PRN Reason: HEMORRHOIDS Lactic Acid (Lac-Hydrin 12) 1 applic TP BID [facility] Levalbuterol HCl (Xopenex) 0.31 mg IH Q8H PRN PRN Reason: ASTHMA Levothyroxine Sodium (Synthroid -) 50 mcg PO DAILY@0700 [facility] Lidocaine/Prilocaine (Emla -) 1 applic TP Q4H [facility] Melatonin (Melatonin) 5 mg PO HS [facility] Midodrine (Proamatine -) 10 mg PO Q8H PRN PRN Reason: HYPOTENSION Multivit/Ca Carb/B Cmplx/FA/Prenat (Nephro-Evert -) 1 tablet PO DAILY [facility] Non-Formulary Medication (Acetaminophen [8hr Muscle Aches-Pain]) 650 mg PO Q6H PRN PRN Reason: PAIN Non-Formulary Medication (Guaifenesin/Dextromethorphan [Robitussin Cough-Chest Dm Liq]) 237 ml PO PRN PRN PRN Reason: COUGH Non-Formulary Medication (Zinc Oxide 20% Topical Oint) 454 gm TD BID [facility] Nystatin (Mycostatin Ointment -) 1 applic TP BID [facility] Ondansetron HCl (Zofran -) 4 mg PO PRN PRN PRN Reason: NAUSEA Pantoprazole Sodium (Protonix -) 40 mg PO DAILY [facility] Rivaroxaban (Xarelto) 15 mg PO DAILY@1800 [facility] Senna (Senna -) 0 tab PO HS [facility] Sertraline HCl (Zoloft -) 50 mg PO DAILY [facility] Silver Sulfadiazine (Silvadene -) 1 applic TP DAILY [facility] Zinc Sulfate (Orazinc -) 220 mg PO DAILY [facility] - Objective Vital Signs: Vital Signs Temperature 96.6 F L 02/28/19 06:55 Pulse Rate 60 02/28/19 06:55 Respiratory Rate 22 H 02/28/19 06:55 Blood Pressure 100/73 02/28/19 06:55 O2 Sat by Pulse Oximetry (%) 99 02/28/19 06:00 Labs: CBC, BMP 02/28/19 01:00 02/28/19 01:00 INR, PTT INR 1.79 (0.83-1.09) H 02/28/19 01:30
[2019-02-28] MEDS: busPIRone HCL 5 MG TABLET PO SCH (09:17)
[2019-02-28] MEDS: SERTRALINE HCL 50 MG TABLET (FP) PO SCH (09:17)
[2019-02-28] MEDS: COLLAGENASE CLOSTRIDIUM HIST. 30 GRAMS TUBE TP SCH (09:17)
[2019-02-28] MEDS: PANTOPRAZOLE 40 MG TABLET (FP) PO SCH (09:17)
[2019-02-28] MEDS: FLUDROCORTISONE ACETATE 0.1 MG TABLET (FP) PO SCH (09:17)
[2019-02-28] MEDS: ZINC SULFATE 220 MG CAPSULE (FP) PO SCH (09:17)
[2019-02-28] MEDS: SILVER SULFADIAZINE 1% TOP CREAM 50 GM JAR TP SCH (09:17)
[2019-02-28] MEDS: VITAMIN B COMP W-C 1 EA TABLET PO SCH (09:17)
[2019-02-28] MEDS: AMMONIUM LACTATE 12% LOTION 225 GM BOTTLE TP SCH (09:18)
[2019-02-28] MEDS: NYSTATIN 100000 UNIT/GM TOPICAL OINTMENT 15 GM TUBE TP SCH (09:18)
--- NOTE | 2019-02-28 09:54 | CON.CARD ---
Consult Consult Specialty:: cardio - History of Present Illness Chief Complaint: sob History of Present Illness: 73 F here with sob in setting of missed HD session. req'd NIPPV and suppl O2 in ER currently bipap mask on, history limited. she denies cp. says sob is improved. PMH: HFpEF pulm HTN chronic hypoxic/hypercapneic resp failure ESRD - Past Medical History Cardio/Vascular: Yes: AFIB, CHF, Deep Vein Thrombosis Pulmonary: Yes: Bronchitis, Pneumonia, Previously Intubated, Pulmonary Embolus, Sleep Apnea Gastrointestinal: Yes: GERD Renal/: Yes: Renal Failure, Hemodialysis Psych: Yes: Depression Endocrine: Yes: Diabetes Mellitus, Hypothyroidism - Alcohol/Substance Use Hx Alcohol Use: No History of Substance Use: reports: None - Smoking History Smoking history: Unknown if ever smoked Have you smoked in the past 12 months: No - Social History ADL: Support Services History of Recent Travel: No Home Medications - Allergies Allergies/Adverse Reactions: Allergies Allergy/AdvReac Type Severity Reaction Status Date / Time No Known Allergies Allergy Unverified 01/19/19 11:43 - Home Medications Home Medications: Ambulatory Orders Acetaminophen [8Hr Muscle Aches-Pain] 650 mg PO PRN PRN 02/19/19 Ammonium Lactate Lotion [Lac-Hydrin 12% Lotion -] 1 applic TP BID 02/19/19 Bacitracin - [Bacitracin Topical Ointment -] 1 applic TP BID 02/19/19 Buspirone HCl [Buspar -] 5 mg PO BID 02/19/19 Calcitriol [Rocaltrol -] 0.25 mcg PO DAILY 02/19/19 Collagenase Clostridium Hist. [Santyl] 1 applic TP DAILY 02/19/19 Digoxin [Lanoxin] 125 mcg PO DAILY PRN 02/19/19 Fludrocortisone Acetate [Florinef -] 0.1 mg PO DAILY 02/19/19 Guaifenesin/Dextromethorphan [Robitussin Cough-Chest Dm Liq] 237 ml PO PRN PRN 02/19/19 Hydrocortisone Acetate [Anusol Hc Suppository -] 25 mg RC PRN PRN 02/19/19 Ipratropium/Albuterol Sulfate [Iprat-Albut 0.5-3(2.5) mg/3 ml] 3 ml IH Q4H PRN 02/19/19 Levothyroxine [Synthroid -] 50 mcg PO DAILY 02/19/19 Lidocaine/Prilocaine Cream [Emla -] 1 applic TP Q4H 02/19/19 Melatonin 5 mg PO DAILY 02/19/19 Midodrine HCl 10 mg PO Q8H 02/19/19 Nystatin Ointment [Mycostatin Ointment -] 1 applic TP BID 02/19/19 Ondansetron [Zofran -] 4 mg PO PRN PRN 02/19/19 Pantoprazole Sodium [Protonix] 40 mg PO DAILY 02/19/19 Rivaroxaban [Xarelto] 15 mg PO DAILY 02/19/19 Sennosides [Senna] 8.6 mg PO HS 02/19/19 Sertraline HCl [Zoloft -] 50 mg PO DAILY 02/19/19 Silver Sulfadiazine [Silvadene] 1 applic TP DAILY 02/19/19 Vitamin B Comp W-C [Nephro-Evert -] 1 tablet PO DAILY 02/19/19 Zinc Oxide 20% Topical Oint 454 gm TD BID 02/19/19 Zinc Sulfate [Orazinc] 220 mg PO DAILY 02/19/19 Albuterol 2.5/Ipratropium 0.5 [Duoneb -] 1 amp NEB RQID amp 02/23/19 Amino Acids/Protein Hydrolys [Prosource No Carb Liquid Pkt] 30 ml PO BID@0800, 1730 packet 02/23/19 Buspirone HCl [Buspar -] 5 mg PO BID tablet 02/23/19 Calcitriol [Calcitriol -] 0.75 mcg PO TID capsule 02/23/19 Digoxin [Lanoxin -] 0.0625 mg PO DAILY tablet 02/23/19 Docusate Sodium [Colace -] 300 mg PO HS capsule 02/23/19 Fludrocortisone Acetate [Florinef -] 0.2 mg PO DAILY tablet 02/23/19 Insulin Sliding Scale [Novolog Vial Sliding Scale -] 1 vial SQ ACHS units 02/23 Levalbuterol HCl [Xopenex] 0.31 mg IH Q8H PRN vial.neb 02/23/19 Levothyroxine [Synthroid -] 25 mcg PO DAILY@0700 tablet 02/23/19 Melatonin 5 mg PO HS tab 02/23/19 Midodrine HCl [Proamatine -] 10 mg PO Q8H PRN tablet 02/23/19 Pantoprazole Sodium [Protonix -] 40 mg PO DAILY tablet.ec 02/23/19 Rivaroxaban [Xarelto] 15 mg PO DAILY@1800 tablet 02/23/19 Sertraline HCl [Zoloft -] 50 mg PO DAILY tablet 02/23/19 Family Disease History - Family Disease History Family History: Unable to Obtain Review of Systems Unable to obtain ROS, reason: bipap on, pt lethargic Vital Signs: Vital Signs Temperature 96.6 F L 02/28/19 06:55 Pulse Rate 60 02/28/19 06:55 Respiratory Rate 22 H 02/28/19 06:55 Blood Pressure 100/73 02/28/19 06:55 O2 Sat by Pulse Oximetry (%) 99 02/28/19 06:00 Constitutional: Yes: Well Nourished, No Distress Eyes: No: Sclera Icterus HENT: No: Nasal Congestion Neck: No: Decreased ROM Respiratory: Yes: CTA Bilaterally, Diminished (bases). No: Accessory Muscle Use , Wheezes Gastrointestinal: Yes: Normal Bowel Sounds. No: Distention, Hepatomegaly, Palpable Mass, Tenderness Cardiovascular: Yes: Regular Rate and Rhythm JVD: No Carotid Bruit: No PMI: Non-Displaced Heart Sounds: Yes: S1, S2. No: Gallop Murmur: No: Systolic Murmur, Diastolic Murmur Musculoskeletal: Yes: Other (No kyphosis) Extremities: No: Cold, Cyanosis Edema: No Peripheral Pulses: 2+ Left Carotid, 2+ Right Carotid, 2+ Left Doralis Pedis, 2+ Right Dorsalis Pedis Integumentary: No: Jaundice Neurological: Yes: Alert. No: Seizure Psychiatric: No: Agitated - Other Data Labs, Other Data: CBC, BMP 02/28/19 01:00 02/28/19 01:00 INR, PTT INR 1.79 (0.83-1.09) H 02/28/19 01:30 Troponin, BNP 02/28/19 02/28/19 02/28/19 01:00 01:00 08:57 Troponin I 0.04 0.04 0.05 B-Natriuretic Peptide > 321131.0 H Troponin, BNP 02/28/19 02/28/19 02/28/19 01:00 01:00 08:57 Troponin I 0.04 0.04 0.05 B-Natriuretic Peptide > 151613.0 H Assessment/Plan Echo 12/01: nl LV function, RV mod to severely dilated, RV function mod to severely reduced, mod dilated LA/RA, RVSP 40-50 mmHg, mod TR Echo 01/2019 - LV function slightly worsened, 45-50%, LA mod dilated, RV mod to severely dilated, RV function mod to severely reduced, mild MR, mild to mod TR, RA mod to severely dilated, mobile echodensity in pleural space CXR: bilat pulm/pleural changes similar to prior 02/18 ECG: AF, low qrs voltage, no path q's/ST-T--no signif change vs prior Acute on chronic hypoxic/hypercapneic respiratory failure, HFpEF, RV dysfunction : -trop neg x 2, ECG non-ischemic -in setting of missed HD session, likely sec to volume overload--dialysis per renal Afib: -bradycardia (40s-50s) 01/31--stabilized without pacing. no AVN blockers -on AC (xarelto, renally dosed)--continue h/o ? CAD, s/p NSTEMI 01/31 (troponin to 2): most likely Type II secondary to acute strain from CHF/pulm HTN and acute resp failure, vs sec to hypotension at time of arrest -ischemia w/u deferred given pt's prohibitive risk for invasive tx strategy, and unlikely to change mgmt/prognosis ESRD on HD: -per renal h/o DVT /PE on AC (Xarelto): -same plan hypotension, requires midodrine for bp support for HD: -cont prior plan chronic anemia: -stable
[2019-02-28] MEDS ORDERED: PATIENT'S OWN MEDICATION (NON-FORMULARY) (Zinc Oxide 20% Topical Oint 454 GM) TD SCH (10:00)
--- NOTE | 2019-02-28 10:16 | EKG ---
Test Reason : Blood Pressure : / mmHG Vent. Rate : 075 BPM Atrial Rate : 163 BPM P-R Int : 000 ms QRS Dur : 090 ms QT Int : 344 ms P-R-T Axes : 000 165 015 degrees QTc Int : 384 ms SUSPECT ARM LEAD REVERSAL, INTERPRETATION ASSUMES NO REVERSAL ATRIAL FIBRILLATION LOW VOLTAGE QRS ANTEROLATERAL INFARCT (CITED ON OR BEFORE 28-JAN-2019) ABNORMAL ECG WHEN COMPARED WITH ECG OF 18-FEB-2019 22:55, QT HAS SHORTENED Confirmed by HEBER ADEN MD ([id number]) on 02/28/2019 10:15:56 AM Referred By: Confirmed By:HEBER ADEN MD
--- NOTE | 2019-02-28 10:39 | PN ---
Progress Note, Physician - Current Medication List Current Medications: Active Medications Albuterol/Ipratropium (Duoneb -) 1 amp NEB RQID [facility] Last Admin: 02/28/19 08:40 Dose: 1 amp Albuterol/Ipratropium (Duoneb -) 1 amp NEB Q4H PRN PRN Reason: WHEEZING Bacitracin (Bacitracin -) 1 applic TP BID [facility] Buspirone HCl (Buspar -) 5 mg PO BID [facility] Last Admin: 02/28/19 09:17 Dose: 5 mg Collagenase (Santyl -) 1 applic TP DAILY [facility]; Protocol Last Admin: 02/28/19 09:17 Dose: Not Given Docusate Sodium (Colace -) 300 mg PO HS [facility] Fludrocortisone Acetate (Florinef -) 0.2 mg PO DAILY [facility] Last Admin: 02/28/19 09:17 Dose: 0.2 mg Hydrocortisone Acetate (Anusol Hc Suppository -) 25 mg RC PRN PRN PRN Reason: HEMORRHOIDS Lactic Acid (Lac-Hydrin 12) 1 applic TP BID [facility] Last Admin: 02/28/19 09:18 Dose: Not Given Levalbuterol HCl (Xopenex) 0.31 mg IH Q8H PRN PRN Reason: ASTHMA Levothyroxine Sodium (Synthroid -) 50 mcg PO DAILY@0700 [facility] Lidocaine/Prilocaine (Emla -) 1 applic TP Q4H [facility] Melatonin (Melatonin) 5 mg PO HS [facility] Midodrine (Proamatine -) 10 mg PO Q8H PRN PRN Reason: HYPOTENSION Multivit/Ca Carb/B Cmplx/FA/Prenat (Nephro-Evert -) 1 tablet PO DAILY [facility] Last Admin: 02/28/19 09:17 Dose: 1 tablet Non-Formulary Medication (Acetaminophen [8hr Muscle Aches-Pain]) 650 mg PO Q6H PRN PRN Reason: PAIN Non-Formulary Medication (Guaifenesin/Dextromethorphan [Robitussin Cough-Chest Dm Liq]) 237 ml PO PRN PRN PRN Reason: COUGH Non-Formulary Medication (Zinc Oxide 20% Topical Oint) 454 gm TD BID [facility] Nystatin (Mycostatin Ointment -) 1 applic TP BID [facility] Last Admin: 02/28/19 09:18 Dose: Not Given Ondansetron HCl (Zofran -) 4 mg PO PRN PRN PRN Reason: NAUSEA Pantoprazole Sodium (Protonix -) 40 mg PO DAILY [facility] Last Admin: 02/28/19 09:17 Dose: 40 mg Rivaroxaban (Xarelto) 15 mg PO DAILY@1800 [facility] Senna (Senna -) 0 tab PO HS [facility] Sertraline HCl (Zoloft -) 50 mg PO DAILY [facility] Last Admin: 02/28/19 09:17 Dose: 50 mg Silver Sulfadiazine (Silvadene -) 1 applic TP DAILY [facility] Last Admin: 02/28/19 09:17 Dose: Not Given Zinc Sulfate (Orazinc -) 220 mg PO DAILY [facility] Last Admin: 02/28/19 09:17 Dose: 220 mg - Objective Vital Signs: Vital Signs Temperature 96.6 F L 02/28/19 06:55 Pulse Rate 60 02/28/19 06:55 Respiratory Rate 22 H 02/28/19 06:55 Blood Pressure 100/73 02/28/19 06:55 O2 Sat by Pulse Oximetry (%) 99 02/28/19 06:00 Labs: CBC, BMP 02/28/19 01:00 02/28/19 01:00 INR, PTT INR 1.79 (0.83-1.09) H 02/28/19 01:30
[2019-02-28] MEDS ORDERED: BACITRACIN 0.9 GM PACKET ONE (11:19)
[2019-02-28] MEDS: BACITRACIN 15 GM TUBE TOPICAL OINTMENT TP SCH ×2 (11:23→23:01)
--- NOTE | 2019-02-28 11:43 | PN ---
Progress Note, Physician Chief Complaint: SOB ESRD CHF Exacerbation History of Present Illness: Previous notes and events reviewed awake and alert NAD on Bipap, sts her breathing is better with Bipap waiting for dialysis - Current Medication List Current Medications: Active Medications Albuterol/Ipratropium (Duoneb -) 1 amp NEB RQID [facility] Last Admin: 02/28/19 08:40 Dose: 1 amp Albuterol/Ipratropium (Duoneb -) 1 amp NEB Q4H PRN PRN Reason: WHEEZING Bacitracin (Bacitracin -) 1 applic TP BID [facility] Last Admin: 02/28/19 11:23 Dose: 1 applic Buspirone HCl (Buspar -) 5 mg PO BID [facility] Last Admin: 02/28/19 09:17 Dose: 5 mg Collagenase (Santyl -) 1 applic TP DAILY [facility]; Protocol Last Admin: 02/28/19 09:17 Dose: Not Given Docusate Sodium (Colace -) 300 mg PO HS [facility] Fludrocortisone Acetate (Florinef -) 0.2 mg PO DAILY [facility] Last Admin: 02/28/19 09:17 Dose: 0.2 mg Hydrocortisone Acetate (Anusol Hc Suppository -) 25 mg RC PRN PRN PRN Reason: HEMORRHOIDS Lactic Acid (Lac-Hydrin 12) 1 applic TP BID [facility] Last Admin: 02/28/19 09:18 Dose: Not Given Levalbuterol HCl (Xopenex) 0.31 mg IH Q8H PRN PRN Reason: ASTHMA Levothyroxine Sodium (Synthroid -) 50 mcg PO DAILY@0700 [facility] Lidocaine/Prilocaine (Emla -) 1 applic TP Q4H [facility] Melatonin (Melatonin) 5 mg PO HS [facility] Midodrine (Proamatine -) 10 mg PO Q8H PRN PRN Reason: HYPOTENSION Multivit/Ca Carb/B Cmplx/FA/Prenat (Nephro-Evert -) 1 tablet PO DAILY [facility] Last Admin: 02/28/19 09:17 Dose: 1 tablet Non-Formulary Medication (Acetaminophen [8hr Muscle Aches-Pain]) 650 mg PO Q6H PRN PRN Reason: PAIN Non-Formulary Medication (Guaifenesin/Dextromethorphan [Robitussin Cough-Chest Dm Liq]) 237 ml PO PRN PRN PRN Reason: COUGH Non-Formulary Medication (Zinc Oxide 20% Topical Oint) 454 gm TD BID [facility] Nystatin (Mycostatin Ointment -) 1 applic TP BID [facility] Last Admin: 02/28/19 09:18 Dose: Not Given Ondansetron HCl (Zofran -) 4 mg PO PRN PRN PRN Reason: NAUSEA Pantoprazole Sodium (Protonix -) 40 mg PO DAILY [facility] Last Admin: 02/28/19 09:17 Dose: 40 mg Rivaroxaban (Xarelto) 15 mg PO DAILY@1800 [facility] Senna (Senna -) 0 tab PO HS [facility] Sertraline HCl (Zoloft -) 50 mg PO DAILY [facility] Last Admin: 02/28/19 09:17 Dose: 50 mg Silver Sulfadiazine (Silvadene -) 1 applic TP DAILY [facility] Last Admin: 02/28/19 09:17 Dose: Not Given Zinc Sulfate (Orazinc -) 220 mg PO DAILY [facility] Last Admin: 02/28/19 09:17 Dose: 220 mg - Objective Vital Signs: Vital Signs Temperature 96.6 F L 02/28/19 06:55 Pulse Rate 60 02/28/19 06:55 Respiratory Rate 22 H 02/28/19 06:55 Blood Pressure 100/73 02/28/19 06:55 O2 Sat by Pulse Oximetry (%) 99 02/28/19 06:00 Constitutional: Yes: No Distress, Calm Eyes: Yes: Conjunctiva Clear HENT: Yes: Atraumatic Cardiovascular: Yes: Regular Rate and Rhythm Respiratory: Yes: Diminished, On BiPap, SOB Gastrointestinal: Yes: Normal Bowel Sounds, Soft, Abdomen, Obese Genitourinary: Yes: Incontinence Musculoskeletal: Yes: Muscle Weakness Extremities: Yes: WNL Edema: Yes (RUE) Neurological: Yes: Alert, Pre-Existing Deficit Psychiatric: Yes: Alert Labs: CBC, BMP 02/28/19 01:00 02/28/19 01:00 INR, PTT INR 1.79 (0.83-1.09) H 02/28/19 01:30 Problem List - Problems (1) Acute exacerbation of congestive heart failure Assessment/Plan: -Cardiology consult -BNP >[id number] -Echo 01/31 EF 45-50%, LA moderately dilated, RV moderately to severely dilated, RV function moderately to severely reduced, mild MR, mild to moderatre TR, RA moderate to severely dilated -1L fluid restriction -daily weight -trop neg -tele monitoring -CXR shows bilateral pulmonary pleural changes have diminished minimally on the right but remain unchanged on left Code(s): I50.9 - HEART FAILURE, UNSPECIFIED Qualifiers: Heart failure type: unspecified Qualified Code(s): I50.9 - Heart failure, unspecified (2) Acute on chronic respiratory failure with hypercapnia Assessment/Plan: -Pulm on board -Bipap HS an as needed -O2 via NC -keep SpO2 >90% -bonchodilators -Xopenex Code(s): J96.22 - ACUTE AND CHRONIC RESPIRATORY FAILURE WITH HYPERCAPNIA (3) COPD (chronic obstructive pulmonary disease) Assessment/Plan: -Pulm on board -Bipap HS an as needed -O2 via NC -keep SpO2 >90% -bonchodilators -Xopenex Code(s): J44.9 - CHRONIC OBSTRUCTIVE PULMONARY DISEASE, UNSPECIFIED (4) Afib Assessment/Plan: -Xarelto Code(s): I48.91 - UNSPECIFIED ATRIAL FIBRILLATION (5) ESRD on hemodialysis Assessment/Plan: -Renal on board -HD on scheduled days -BUN/Cr 63.8/4.1 -monitor renal function Code(s): N18.6 - END STAGE RENAL DISEASE; Z99.2 - DEPENDENCE ON RENAL DIALYSIS (6) H/O deep venous thrombosis Assessment/Plan: -Xarelto Code(s): Z86.718 - PERSONAL HISTORY OF OTHER VENOUS THROMBOSIS AND EMBOLISM (7) Hypotension Assessment/Plan: -[place] Code(s): I95.9 - HYPOTENSION, UNSPECIFIED Qualifiers: Hypotension type: unspecified hypotension type Qualified Code(s): I95.9 - Hypotension, unspecified (8) Hypothyroid Assessment/Plan: -Levothyroxine Code(s): E03.9 - HYPOTHYROIDISM, UNSPECIFIED Assessment/Plan see problem list dvt ppx
[2019-02-28] MEDS ORDERED: SODIUM CHLORIDE 250 ML IV PRN (12:50)
--- NOTE | 2019-02-28 12:50 | CONSULT ---
Consult Consult Specialty:: Nephrology Reason for Consultation:: ESRD - History of Present Illness Chief Complaint: shortness of breath History of Present Illness: Pt is a 73 year old female with pmhx of esrd on hd, a-fib, hypothyroidism, copd , and chf who presents with shortness of breath. Her last HD was on Thursday but she did not get a full session. She complains of shortness of breath. She is dependent on bipap. She denies chest pain, fever or chills. She is due to HD today. - History Source History Provided By: Patient - Past Medical History Cardio/Vascular: Yes: AFIB, CHF, Deep Vein Thrombosis Pulmonary: Yes: Bronchitis, Pneumonia, Previously Intubated, Pulmonary Embolus, Sleep Apnea Gastrointestinal: Yes: GERD Renal/: Yes: Renal Failure, Hemodialysis Psych: Yes: Depression Endocrine: Yes: Diabetes Mellitus, Hypothyroidism - Alcohol/Substance Use Hx Alcohol Use: No History of Substance Use: reports: None - Smoking History Smoking history: Unknown if ever smoked Have you smoked in the past 12 months: No - Social History ADL: Support Services History of Recent Travel: No Home Medications - Allergies Allergies/Adverse Reactions: Allergies Allergy/AdvReac Type Severity Reaction Status Date / Time No Known Allergies Allergy Unverified 01/19/19 11:43 - Home Medications Home Medications: Ambulatory Orders Acetaminophen [8Hr Muscle Aches-Pain] 650 mg PO PRN PRN 02/19/19 Ammonium Lactate Lotion [Lac-Hydrin 12% Lotion -] 1 applic TP BID 02/19/19 Bacitracin - [Bacitracin Topical Ointment -] 1 applic TP BID 02/19/19 Buspirone HCl [Buspar -] 5 mg PO BID 02/19/19 Calcitriol [Rocaltrol -] 0.25 mcg PO DAILY 02/19/19 Collagenase Clostridium Hist. [Santyl] 1 applic TP DAILY 02/19/19 Digoxin [Lanoxin] 125 mcg PO DAILY PRN 02/19/19 Fludrocortisone Acetate [Florinef -] 0.1 mg PO DAILY 02/19/19 Guaifenesin/Dextromethorphan [Robitussin Cough-Chest Dm Liq] 237 ml PO PRN PRN 02/19/19 Hydrocortisone Acetate [Anusol Hc Suppository -] 25 mg RC PRN PRN 02/19/19 Ipratropium/Albuterol Sulfate [Iprat-Albut 0.5-3(2.5) mg/3 ml] 3 ml IH Q4H PRN 02/19/19 Levothyroxine [Synthroid -] 50 mcg PO DAILY 02/19/19 Lidocaine/Prilocaine Cream [Emla -] 1 applic TP Q4H 02/19/19 Melatonin 5 mg PO DAILY 02/19/19 Midodrine HCl 10 mg PO Q8H 02/19/19 Nystatin Ointment [Mycostatin Ointment -] 1 applic TP BID 02/19/19 Ondansetron [Zofran -] 4 mg PO PRN PRN 02/19/19 Pantoprazole Sodium [Protonix] 40 mg PO DAILY 02/19/19 Rivaroxaban [Xarelto] 15 mg PO DAILY 02/19/19 Sennosides [Senna] 8.6 mg PO HS 02/19/19 Sertraline HCl [Zoloft -] 50 mg PO DAILY 02/19/19 Silver Sulfadiazine [Silvadene] 1 applic TP DAILY 02/19/19 Vitamin B Comp W-C [Nephro-Evert -] 1 tablet PO DAILY 02/19/19 Zinc Oxide 20% Topical Oint 454 gm TD BID 02/19/19 Zinc Sulfate [Orazinc] 220 mg PO DAILY 02/19/19 Albuterol 2.5/Ipratropium 0.5 [Duoneb -] 1 amp NEB RQID amp 02/23/19 Amino Acids/Protein Hydrolys [Prosource No Carb Liquid Pkt] 30 ml PO BID@0800, 1730 packet 02/23/19 Buspirone HCl [Buspar -] 5 mg PO BID tablet 02/23/19 Calcitriol [Calcitriol -] 0.75 mcg PO TID capsule 02/23/19 Digoxin [Lanoxin -] 0.0625 mg PO DAILY tablet 02/23/19 Docusate Sodium [Colace -] 300 mg PO HS capsule 02/23/19 Fludrocortisone Acetate [Florinef -] 0.2 mg PO DAILY tablet 02/23/19 Insulin Sliding Scale [Novolog Vial Sliding Scale -] 1 vial SQ ACHS units 02/23 Levalbuterol HCl [Xopenex] 0.31 mg IH Q8H PRN vial.neb 02/23/19 Levothyroxine [Synthroid -] 25 mcg PO DAILY@0700 tablet 02/23/19 Melatonin 5 mg PO HS tab 02/23/19 Midodrine HCl [Proamatine -] 10 mg PO Q8H PRN tablet 02/23/19 Pantoprazole Sodium [Protonix -] 40 mg PO DAILY tablet.ec 02/23/19 Rivaroxaban [Xarelto] 15 mg PO DAILY@1800 tablet 02/23/19 Sertraline HCl [Zoloft -] 50 mg PO DAILY tablet 02/23/19 Family Disease History - Family Disease History Family History: Denies Review of Systems - Review of Systems Constitutional: reports: No Symptoms Eyes: reports: No Symptoms HENT: reports: No Symptoms, Ocular Prosthesis Cardiovascular: reports: No Symptoms, Edema, Shortness of Breath Respiratory: reports: SOB, SOB on Exertion Gastrointestinal: reports: No Symptoms Genitourinary: reports: No Symptoms Musculoskeletal: reports: No Symptoms Integumentary: reports: No Symptoms Neurological: reports: No Symptoms Endocrine: reports: No Symptoms Hematology/Lymphatic: reports: No Symptoms Physical Exam Vital Signs: Vital Signs Temperature 96.6 F L 02/28/19 06:55 Pulse Rate 60 02/28/19 06:55 Respiratory Rate 22 H 02/28/19 06:55 Blood Pressure 100/73 02/28/19 06:55 O2 Sat by Pulse Oximetry (%) 99 02/28/19 06:00 Constitutional: Yes: Calm Eyes: Yes: Conjunctiva Clear HENT: Yes: Atraumatic Cardiovascular: Yes: S1, S2 Respiratory: Yes: On BiPap Gastrointestinal: Yes: Soft Renal/: Yes: Incontinence Musculoskeletal: Yes: Muscle Weakness Edema: LUE: 2+, RUE: 2+, LLE: 1+, RLE: 1+ Neurological: Yes: Oriented Psychiatric: Yes: Oriented Labs: CBC, BMP 02/28/19 01:00 02/28/19 01:00 Imaging - Results Chest X-ray: Report Reviewed Problem List - Problems (1) Acute exacerbation of congestive heart failure Code(s): I50.9 - HEART FAILURE, UNSPECIFIED Qualifiers: Heart failure type: unspecified Qualified Code(s): I50.9 - Heart failure, unspecified (2) Acute on chronic respiratory failure with hypercapnia Code(s): J96.22 - ACUTE AND CHRONIC RESPIRATORY FAILURE WITH HYPERCAPNIA (3) COPD (chronic obstructive pulmonary disease) Code(s): J44.9 - CHRONIC OBSTRUCTIVE PULMONARY DISEASE, UNSPECIFIED (4) Shortness of breath Code(s): R06.02 - SHORTNESS OF BREATH (5) Afib Code(s): I48.91 - UNSPECIFIED ATRIAL FIBRILLATION (6) ESRD on hemodialysis Code(s): N18.6 - END STAGE RENAL DISEASE; Z99.2 - DEPENDENCE ON RENAL DIALYSIS Assessment/Plan Current Medications Generic Name Dose Route Start Last Admin Trade Name Freq PRN Reason Stop Dose Admin Albuterol/Ipratropium 1 amp 02/28/19 00:30 02/28/19 08:40 Duoneb - NEB 1 amp RQID [facility] Administration Albuterol/Ipratropium 1 amp 02/28/19 07:01 Duoneb - NEB Q4H PRN WHEEZING Bacitracin 1 applic 02/28/19 10:00 02/28/19 11:23 Bacitracin - TP 1 applic BID [facility] Administration Buspirone HCl 5 mg 02/28/19 10:00 02/28/19 09:17 Buspar - PO 5 mg BID [facility] Administration Collagenase 1 applic 02/28/19 10:00 02/28/19 09:17 Santyl - TP Not Given DAILY [facility] Protocol Docusate Sodium 300 mg 02/28/19 22:00 Colace - PO HS [facility] Fludrocortisone Acetate 0.2 mg 02/28/19 10:00 02/28/19 09:17 Florinef - PO 0.2 mg DAILY [facility] Administration Hydrocortisone Acetate 25 mg 02/28/19 07:01 Anusol Hc Suppository - RC PRN PRN HEMORRHOIDS Lactic Acid 1 applic 02/28/19 10:00 02/28/19 09:18 Lac-Hydrin 12 TP Not Given BID [facility] Levalbuterol HCl 0.31 mg 02/28/19 07:01 Xopenex IH Q8H PRN ASTHMA Levothyroxine Sodium 50 mcg 03/01/19 07:00 Synthroid - PO DAILY@0700 [facility] Lidocaine/Prilocaine 1 applic 02/28/19 07:15 Emla - TP Q4H [facility] Melatonin 5 mg 02/28/19 22:00 Melatonin PO HS [facility] Midodrine 10 mg 02/28/19 07:01 Proamatine - PO Q8H PRN HYPOTENSION Multivit/Ca Carb/B Cmplx/FA/Prenat 1 tablet 02/28/19 10:00 02/28/19 09:17 Nephro-Evert - PO 1 tablet DAILY [facility] Administration Non-Formulary Medication 650 mg 02/28/19 07:01 Acetaminophen [8hr Muscle Aches-Pain] PO Q6H PRN PAIN Non-Formulary Medication 237 ml 02/28/19 07:01 Guaifenesin/Dextromethorphan [Robitussin Cough-Chest Dm Liq] PO PRN PRN COUGH Non-Formulary Medication 454 gm 02/28/19 10:00 Zinc Oxide 20% Topical Oint TD BID [facility] Nystatin 1 applic 02/28/19 10:00 02/28/19 09:18 Mycostatin Ointment - TP Not Given BID [facility] Ondansetron HCl 4 mg 02/28/19 07:01 Zofran - PO PRN PRN [facility] Pantoprazole Sodium 40 mg 02/28/19 10:00 02/28/19 09:17 Protonix - PO 40 mg DAILY [facility] Administration Rivaroxaban 15 mg 02/28/19 18:00 Xarelto PO DAILY@1800 [facility] Senna 0 tab 02/28/19 22:00 Senna - PO HS [facility] Sertraline HCl 50 mg 02/28/19 10:00 02/28/19 09:17 Zoloft - PO 50 mg DAILY NAHEED Administration Silver Sulfadiazine 1 applic 02/28/19 10:00 02/28/19 09:17 Silvadene - TP Not Given DAILY [facility] Zinc Sulfate 220 mg 02/28/19 10:00 02/28/19 09:17 Orazinc - PO 220 mg DAILY NAHEED Administration Impression 1. ESRD 2. shortness of breath 3. resp failure requiring bipap 4. chf 5. dvt 6. anemia 7. a-fib 8. hypothyroid 9. pleural effusion Plan - will arrange for HD today - albumin with HD - renal diet - fluid restriction - discussed with family - cont bipap - HD right thigh cath, 3 k bath, 3 15 time, 400 abf
[2019-02-28] MEDS ORDERED: EPOETIN ALFA 2,000 UNIT/1 ML VIAL IVPUSH ONE (18:00)
--- NOTE | 2019-02-28 18:37 | PN ---
Progress Note (short form) - Note Progress Note: PULMONARY CONSULTATION DICTATED 02/28/19 IMP ACUTE RESPIRATORY FAILURE ACUTE ON CHRONIC CHF ESRD ON HD VOLUME OVERLOAD RECENT PNEUMONIA COPD AFIB HYPOTHYROID ANEMIA DM H/O DVT's PLAN O2 NIPPV NEEDED INHALED BRONCHODILATORS HD PER RENAL DAILY WT F/U CHEST XRAYS AC DR TURPIN Problem List - Problems (1) Acute exacerbation of congestive heart failure Code(s): I50.9 - HEART FAILURE, UNSPECIFIED Qualifiers: Heart failure type: unspecified Qualified Code(s): I50.9 - Heart failure, unspecified (2) COPD (chronic obstructive pulmonary disease) Code(s): J44.9 - CHRONIC OBSTRUCTIVE PULMONARY DISEASE, UNSPECIFIED (3) Shortness of breath Code(s): R06.02 - SHORTNESS OF BREATH (4) Acute respiratory failure Code(s): J96.00 - ACUTE RESPIRATORY FAILURE, UNSP W HYPOXIA OR HYPERCAPNIA Qualifiers: Respiratory failure complication: hypoxia Qualified Code(s): J96.01 - Acute respiratory failure with hypoxia (5) Afib Code(s): I48.91 - UNSPECIFIED ATRIAL FIBRILLATION (6) ESRD on hemodialysis Code(s): N18.6 - END STAGE RENAL DISEASE; Z99.2 - DEPENDENCE ON RENAL DIALYSIS (7) Severe obesity (BMI >= 40) Code(s): E66.01 - MORBID (SEVERE) OBESITY DUE TO EXCESS CALORIES
[2019-02-28] MEDS: ALBUMIN HUMAN 25% 12.5 GM/50 ML VIAL IVPB SCH ×4 (18:45→20:23)
[2019-02-28] MEDS ORDERED: SENNOSIDES 8.6MG TABLET (FP) PO SCH (22:00)
[2019-02-28] MEDS: DOCUSATE SODIUM 100 MG CAPSULE (FP) PO SCH (23:01)
[2019-02-28] MEDS: RIVAROXABAN 15 MG TABLET PO SCH (23:01)
[2019-02-28] MEDS: MELATONIN 5 MG TABLETS PO SCH (23:02)
[2019-03-01] MEDS: busPIRone HCL 5 MG TABLET PO SCH ×3 (01:56→22:39)
[2019-03-01] MEDS: AMMONIUM LACTATE 12% LOTION 225 GM BOTTLE TP SCH ×3 (01:56→22:39)
[2019-03-01] MEDS: NYSTATIN 100000 UNIT/GM TOPICAL OINTMENT 15 GM TUBE TP SCH ×3 (01:57→22:44)
[2019-03-01] MEDS: LEVOTHYROXINE NA 50 MCG TABLET (FP) PO SCH (07:08)
[2019-03-01] MEDS: ALBUTEROL SO4 2.5/IPRATROPIUM 0.5 INH SOL 3 ML VIAL.NEB. NEB SCH ×4 (07:44→20:45)
[2019-03-01 07:55] LABS: EOS % 2.1 % (0-4.5); HEMATOCRIT 28.7 % (32.4-45.2); HEMOGLOBIN 8.9 GM/dL (10.7-15.3); LYMPH % 17.8 % (8-40); MCH 29.7 pg (25.7-33.7); MCHC 31.1 g/dl (32.0-36.0); MEAN CELL VOLUME 95.4 fl (80-96); MEAN PLT VOLUME 8.6 fl (7.5-11.1); MONO % 11.4 % (3.8-10.2); NEUT % 67.7 % (42.8-82.8); PLATELET COUNT 106 K/MM3 (134-434); RBC 3.01 M/mm3 (3.60-5.2); RDW 18.9 % (11.6-15.6); WHITE BLOOD COUNT 3.5 K/mm3 (4.0-10.0)
--- NOTE | 2019-03-01 08:32 | PN ---
Progress Note, Physician - Current Medication List Current Medications: Active Medications Albuterol/Ipratropium (Duoneb -) 1 amp NEB RQID [facility] Last Admin: 03/01/19 07:44 Dose: 1 amp Albuterol/Ipratropium (Duoneb -) 1 amp NEB Q4H PRN PRN Reason: WHEEZING Bacitracin (Bacitracin -) 1 applic TP BID [facility] Last Admin: 02/28/19 23:01 Dose: 1 applic Buspirone HCl (Buspar -) 5 mg PO BID [facility] Last Admin: 03/01/19 01:56 Dose: 5 mg Collagenase (Santyl -) 1 applic TP DAILY [facility]; Protocol Last Admin: 02/28/19 09:17 Dose: Not Given Docusate Sodium (Colace -) 300 mg PO HS [facility] Last Admin: 02/28/19 23:01 Dose: Not Given Fludrocortisone Acetate (Florinef -) 0.2 mg PO DAILY [facility] Last Admin: 02/28/19 09:17 Dose: 0.2 mg Hydrocortisone Acetate (Anusol Hc Suppository -) 25 mg RC PRN PRN PRN Reason: HEMORRHOIDS Sodium Chloride (Normal Saline -) 250 mls @ 3,000 mls/hr IV PRN PRN PRN Reason: Hypotension during Dialysis Stop: 03/01/19 12:50 Lactic Acid (Lac-Hydrin 12) 1 applic TP BID [facility] Last Admin: 03/01/19 01:56 Dose: 1 applic Levalbuterol HCl (Xopenex) 0.31 mg IH Q8H PRN PRN Reason: ASTHMA Levothyroxine Sodium (Synthroid -) 50 mcg PO DAILY@0700 [facility] Last Admin: 03/01/19 07:08 Dose: 50 mcg Lidocaine/Prilocaine (Emla -) 1 applic TP Q4H [facility] Melatonin (Melatonin) 5 mg PO HS [facility] Last Admin: 02/28/19 23:02 Dose: 5 mg Midodrine (Proamatine -) 10 mg PO Q8H PRN PRN Reason: HYPOTENSION Multivit/Ca Carb/B Cmplx/FA/Prenat (Nephro-Evert -) 1 tablet PO DAILY [facility] Last Admin: 02/28/19 09:17 Dose: 1 tablet Non-Formulary Medication (Acetaminophen [8hr Muscle Aches-Pain]) 650 mg PO Q6H PRN PRN Reason: PAIN Non-Formulary Medication (Guaifenesin/Dextromethorphan [Robitussin Cough-Chest Dm Liq]) 237 ml PO PRN PRN PRN Reason: COUGH Non-Formulary Medication (Zinc Oxide 20% Topical Oint) 454 gm TD BID [facility] Nystatin (Mycostatin Ointment -) 1 applic TP BID [facility] Last Admin: 03/01/19 01:57 Dose: 1 applic Ondansetron HCl (Zofran -) 4 mg PO PRN PRN PRN Reason: NAUSEA Pantoprazole Sodium (Protonix -) 40 mg PO DAILY [facility] Last Admin: 02/28/19 09:17 Dose: 40 mg Rivaroxaban (Xarelto) 15 mg PO DAILY@1800 [facility] Last Admin: 02/28/19 23:01 Dose: 15 mg Senna (Senna -) 0 tab PO HS [facility] Sertraline HCl (Zoloft -) 50 mg PO DAILY [facility] Last Admin: 02/28/19 09:17 Dose: 50 mg Silver Sulfadiazine (Silvadene -) 1 applic TP DAILY [facility] Last Admin: 02/28/19 09:17 Dose: Not Given Zinc Sulfate (Orazinc -) 220 mg PO DAILY [facility] Last Admin: 02/28/19 09:17 Dose: 220 mg - Objective Vital Signs: Vital Signs Temperature 98.1 F 03/01/19 06:00 Pulse Rate 71 03/01/19 06:00 Respiratory Rate 22 H 03/01/19 06:00 Blood Pressure 94/60 03/01/19 06:00 O2 Sat by Pulse Oximetry (%) 100 03/01/19 06:15 Cardiovascular: Yes: S1, S2 Respiratory: Yes: Regular, CTA Bilaterally Gastrointestinal: Yes: Normal Bowel Sounds, Soft Labs: CBC, BMP 03/01/19 07:35 INR, PTT INR 1.79 (0.83-1.09) H 02/28/19 01:30 Assessment/Plan - Problems (1) Acute exacerbation of congestive heart failure Assessment/Plan: -Cardiology consult -BNP >[id number] -Echo 01/31 EF 45-50%, LA moderately dilated, RV moderately to severely dilated, RV function moderately to severely reduced, mild MR, mild to moderatre TR, RA moderate to severely dilated -1L fluid restriction -daily weight -trop neg -tele monitoring -CXR shows bilateral pulmonary pleural changes have diminished minimally on the right but remain unchanged on left--repeat -D/W Renal regarding volume overload and recurrence Code(s): I50.9 - HEART FAILURE, UNSPECIFIED Qualifiers: Heart failure type: unspecified Qualified Code(s): I50.9 - Heart failure, unspecified (2) Acute on chronic respiratory failure with hypercapnia Assessment/Plan: -Pulm on board -Bipap HS an as needed -O2 via NC -keep SpO2 >90% -bonchodilators -Xopenex Code(s): J96.22 - ACUTE AND CHRONIC RESPIRATORY FAILURE WITH HYPERCAPNIA (3) COPD (chronic obstructive pulmonary disease) Assessment/Plan: -Pulm on board -Bipap HS an as needed -O2 via NC -keep SpO2 >90% -bonchodilators -Xopenex Code(s): J44.9 - CHRONIC OBSTRUCTIVE PULMONARY DISEASE, UNSPECIFIED (4) Afib Assessment/Plan: -Xarelto Code(s): I48.91 - UNSPECIFIED ATRIAL FIBRILLATION (5) ESRD on hemodialysis Assessment/Plan: -Renal on board -HD on scheduled days -BUN/Cr 63.8/4.1 -monitor renal function Code(s): N18.6 - END STAGE RENAL DISEASE; Z99.2 - DEPENDENCE ON RENAL DIALYSIS (6) H/O deep venous thrombosis Assessment/Plan: -Xarelto Code(s): Z86.718 - PERSONAL HISTORY OF OTHER VENOUS THROMBOSIS AND EMBOLISM (7) Hypotension Assessment/Plan: -[place] Code(s): I95.9 - HYPOTENSION, UNSPECIFIED Qualifiers: Hypotension type: unspecified hypotension type Qualified Code(s): I95.9 - Hypotension, unspecified (8) Hypothyroid Assessment/Plan: -Levothyroxine Code(s): E03.9 - HYPOTHYROIDISM, UNSPECIFIED
[2019-03-01 08:42] LABS: ANION GAP 7 MMOL/L (8-16); BLOOD UREA NITROGEN 36.2 mg/dL (7-18); CALCIUM 8.7 mg/dL (8.5-10.1); CHLORIDE 101 mmol/L (98-107); CO2 31 mmol/L (21-32); CREATININE 2.9 mg/dL (0.55-1.3); GLUCOSE,RANDOM 81 mg/dL (74-106); N-TERMINAL BNP > 175000.0 pg/ml (5-125); POTASSIUM 3.6 mmol/L (3.5-5.1); SODIUM 139 mmol/L (136-145)
--- NOTE | 2019-03-01 10:46 | PN ---
Progress Note, Physician History of Present Illness: pulmonary awake,confused,less dyspneic on nasal o2 - Current Medication List Current Medications: Active Medications Albuterol/Ipratropium (Duoneb -) 1 amp NEB RQID [facility] Last Admin: 03/01/19 07:44 Dose: 1 amp Albuterol/Ipratropium (Duoneb -) 1 amp NEB Q4H PRN PRN Reason: WHEEZING Bacitracin (Bacitracin -) 1 applic TP BID [facility] Last Admin: 02/28/19 23:01 Dose: 1 applic Buspirone HCl (Buspar -) 5 mg PO BID [facility] Last Admin: 03/01/19 01:56 Dose: 5 mg Collagenase (Santyl -) 1 applic TP DAILY [facility]; Protocol Last Admin: 02/28/19 09:17 Dose: Not Given Docusate Sodium (Colace -) 300 mg PO HS [facility] Last Admin: 02/28/19 23:01 Dose: Not Given Fludrocortisone Acetate (Florinef -) 0.2 mg PO DAILY [facility] Last Admin: 02/28/19 09:17 Dose: 0.2 mg Hydrocortisone Acetate (Anusol Hc Suppository -) 25 mg RC PRN PRN PRN Reason: HEMORRHOIDS Sodium Chloride (Normal Saline -) 250 mls @ 3,000 mls/hr IV PRN PRN PRN Reason: Hypotension during Dialysis Stop: 03/01/19 12:50 Lactic Acid (Lac-Hydrin 12) 1 applic TP BID [facility] Last Admin: 03/01/19 01:56 Dose: 1 applic Levalbuterol HCl (Xopenex) 0.31 mg IH Q8H PRN PRN Reason: ASTHMA Levothyroxine Sodium (Synthroid -) 50 mcg PO DAILY@0700 [facility] Last Admin: 03/01/19 07:08 Dose: 50 mcg Lidocaine/Prilocaine (Emla -) 1 applic TP Q4H [facility] Melatonin (Melatonin) 5 mg PO HS [facility] Last Admin: 02/28/19 23:02 Dose: 5 mg Midodrine (Proamatine -) 10 mg PO Q8H PRN PRN Reason: HYPOTENSION Multivit/Ca Carb/B Cmplx/FA/Prenat (Nephro-Evert -) 1 tablet PO DAILY [facility] Last Admin: 02/28/19 09:17 Dose: 1 tablet Non-Formulary Medication (Acetaminophen [8hr Muscle Aches-Pain]) 650 mg PO Q6H PRN PRN Reason: PAIN Non-Formulary Medication (Guaifenesin/Dextromethorphan [Robitussin Cough-Chest Dm Liq]) 237 ml PO PRN PRN PRN Reason: COUGH Non-Formulary Medication (Zinc Oxide 20% Topical Oint) 454 gm TD BID [facility] Nystatin (Mycostatin Ointment -) 1 applic TP BID [facility] Last Admin: 03/01/19 01:57 Dose: 1 applic Ondansetron HCl (Zofran -) 4 mg PO PRN PRN PRN Reason: NAUSEA Pantoprazole Sodium (Protonix -) 40 mg PO DAILY [facility] Last Admin: 02/28/19 09:17 Dose: 40 mg Rivaroxaban (Xarelto) 15 mg PO DAILY@1800 [facility] Last Admin: 02/28/19 23:01 Dose: 15 mg Senna (Senna -) 0 tab PO HS [facility] Sertraline HCl (Zoloft -) 50 mg PO DAILY [facility] Last Admin: 02/28/19 09:17 Dose: 50 mg Silver Sulfadiazine (Silvadene -) 1 applic TP DAILY [facility] Last Admin: 02/28/19 09:17 Dose: Not Given Zinc Sulfate (Orazinc -) 220 mg PO DAILY [facility] Last Admin: 02/28/19 09:17 Dose: 220 mg - Objective Vital Signs: Vital Signs Temperature 98.1 F 03/01/19 06:00 Pulse Rate 71 03/01/19 06:00 Respiratory Rate 22 H 03/01/19 06:00 Blood Pressure 94/60 03/01/19 06:00 O2 Sat by Pulse Oximetry (%) 100 03/01/19 06:15 Constitutional: Yes: Well Nourished, Calm Eyes: Yes: WNL HENT: Yes: WNL Neck: Yes: WNL Cardiovascular: Yes: Pulse Irregular, S1, S2 Respiratory: Yes: Rales (bilateral crackles 1/3 up) Gastrointestinal: Yes: Normal Bowel Sounds, Soft Extremities: Yes: WNL Edema: No Labs: CBC, BMP 03/01/19 07:35 03/01/19 07:35 INR, PTT INR 1.79 (0.83-1.09) H 02/28/19 01:30 Problem List - Problems (1) Acute exacerbation of congestive heart failure Code(s): I50.9 - HEART FAILURE, UNSPECIFIED Qualifiers: Heart failure type: unspecified Qualified Code(s): I50.9 - Heart failure, unspecified (2) COPD (chronic obstructive pulmonary disease) Code(s): J44.9 - CHRONIC OBSTRUCTIVE PULMONARY DISEASE, UNSPECIFIED (3) Shortness of breath Code(s): R06.02 - SHORTNESS OF BREATH (4) Acute respiratory failure Code(s): J96.00 - ACUTE RESPIRATORY FAILURE, UNSP W HYPOXIA OR HYPERCAPNIA Qualifiers: Respiratory failure complication: hypoxia Qualified Code(s): J96.01 - Acute respiratory failure with hypoxia (5) Afib Code(s): I48.91 - UNSPECIFIED ATRIAL FIBRILLATION (6) ESRD on hemodialysis Code(s): N18.6 - END STAGE RENAL DISEASE; Z99.2 - DEPENDENCE ON RENAL DIALYSIS (7) Functional quadriplegia Code(s): R53.2 - FUNCTIONAL QUADRIPLEGIA (8) H/O deep venous thrombosis Code(s): Z86.718 - PERSONAL HISTORY OF OTHER VENOUS THROMBOSIS AND EMBOLISM Assessment/Plan IMP ACUTE RESPIRATORY FAILURE IMPROVED ACUTE ON CHRONIC CHF ESRD ON HD VOLUME OVERLOAD IMPROVONG RECENT PNEUMONIA COPD AFIB HYPOTHYROID ANEMIA DM H/O DVT's PLAN O2 NIPPV NEEDED INHALED BRONCHODILATORS HD PER RENAL DAILY WT F/U CHEST X-RAYS AC DR TURPIN Problem List - Problems (1) Acute exacerbation of congestive heart failure Code(s): I50.9 - HEART FAILURE, UNSPECIFIED Qualifiers: Heart failure type: unspecified Qualified Code(s): I50.9 - Heart failure, unspecified (2) COPD (chronic obstructive pulmonary disease) Code(s): J44.9 - CHRONIC OBSTRUCTIVE PULMONARY DISEASE, UNSPECIFIED (3) Shortness of breath Code(s): R06.02 - SHORTNESS OF BREATH (4) Acute respiratory failure Code(s): J96.00 - ACUTE RESPIRATORY FAILURE, UNSP W HYPOXIA OR HYPERCAPNIA Qualifiers: Respiratory failure complication: hypoxia Qualified Code(s): J96.01 - Acute respiratory failure with hypoxia (5) Afib Code(s): I48.91 - UNSPECIFIED ATRIAL FIBRILLATION (6) ESRD on hemodialysis Code(s): N18.6 - END STAGE RENAL DISEASE; Z99.2 - DEPENDENCE ON RENAL DIALYSIS (7) Severe obesity (BMI >= 40) Code(s): E66.01 - MORBID (SEVERE) OBESITY DUE TO EXCESS CALORIES
[2019-03-01] MEDS ORDERED: PT OWN MED DRAWER 7, Y5N ONE ×2 (10:53→22:30)
[2019-03-01] MEDS: SERTRALINE HCL 50 MG TABLET (FP) PO SCH (10:56)
[2019-03-01] MEDS: FLUDROCORTISONE ACETATE 0.1 MG TABLET (FP) PO SCH (10:56)
[2019-03-01] MEDS: VITAMIN B COMP W-C 1 EA TABLET PO SCH (10:56)
[2019-03-01] MEDS: BACITRACIN 15 GM TUBE TOPICAL OINTMENT TP SCH ×2 (10:56→22:40)
[2019-03-01] MEDS: ZINC SULFATE 220 MG CAPSULE (FP) PO SCH (10:56)
[2019-03-01] MEDS: PANTOPRAZOLE 40 MG TABLET (FP) PO SCH (10:56)
--- NOTE | 2019-03-01 12:01 | PN ---
Progress Note (short form) - Note Progress Note: s: breathing better after HD, on NRB. no chest pain, palps, dizziness Current Medications Albuterol/Ipratropium (Duoneb -) 1 amp NEB RQID [facility] Last Admin: 03/01/19 07:44 Dose: 1 amp Albuterol/Ipratropium (Duoneb -) 1 amp NEB Q4H PRN PRN Reason: WHEEZING Bacitracin (Bacitracin -) 1 applic TP BID [facility] Last Admin: 03/01/19 10:56 Dose: 1 applic Buspirone HCl (Buspar -) 5 mg PO BID [facility] Last Admin: 03/01/19 10:56 Dose: 5 mg Collagenase (Santyl -) 1 applic TP DAILY [facility]; Protocol Last Admin: 02/28/19 09:17 Dose: Not Given Docusate Sodium (Colace -) 300 mg PO HS [facility] Last Admin: 02/28/19 23:01 Dose: Not Given Fludrocortisone Acetate (Florinef -) 0.2 mg PO DAILY [facility] Last Admin: 03/01/19 10:56 Dose: 0.2 mg Hydrocortisone Acetate (Anusol Hc Suppository -) 25 mg RC PRN PRN PRN Reason: HEMORRHOIDS Sodium Chloride (Normal Saline -) 250 mls @ 3,000 mls/hr IV PRN PRN PRN Reason: Hypotension during Dialysis Stop: 03/01/19 12:50 Lactic Acid (Lac-Hydrin 12) 1 applic TP BID [facility] Last Admin: 03/01/19 01:56 Dose: 1 applic Levalbuterol HCl (Xopenex) 0.31 mg IH Q8H PRN PRN Reason: ASTHMA Levothyroxine Sodium (Synthroid -) 50 mcg PO DAILY@0700 [facility] Last Admin: 03/01/19 07:08 Dose: 50 mcg Lidocaine/Prilocaine (Emla -) 1 applic TP Q4H [facility] Melatonin (Melatonin) 5 mg PO HS [facility] Last Admin: 02/28/19 23:02 Dose: 5 mg Midodrine (Proamatine -) 10 mg PO Q8H PRN PRN Reason: HYPOTENSION Multivit/Ca Carb/B Cmplx/FA/Prenat (Nephro-Evert -) 1 tablet PO DAILY [facility] Last Admin: 03/01/19 10:56 Dose: 1 tablet Non-Formulary Medication (Acetaminophen [8hr Muscle Aches-Pain]) 650 mg PO Q6H PRN PRN Reason: PAIN Non-Formulary Medication (Guaifenesin/Dextromethorphan [Robitussin Cough-Chest Dm Liq]) 237 ml PO PRN PRN PRN Reason: COUGH Non-Formulary Medication (Zinc Oxide 20% Topical Oint) 454 gm TD BID [facility] Nystatin (Mycostatin Ointment -) 1 applic TP BID [facility] Last Admin: 03/01/19 01:57 Dose: 1 applic Ondansetron HCl (Zofran -) 4 mg PO PRN PRN PRN Reason: NAUSEA Pantoprazole Sodium (Protonix -) 40 mg PO DAILY [facility] Last Admin: 03/01/19 10:56 Dose: 40 mg Rivaroxaban (Xarelto) 15 mg PO DAILY@1800 [facility] Last Admin: 02/28/19 23:01 Dose: 15 mg Senna (Senna -) 0 tab PO HS [facility] Sertraline HCl (Zoloft -) 50 mg PO DAILY [facility] Last Admin: 03/01/19 10:56 Dose: 50 mg Silver Sulfadiazine (Silvadene -) 1 applic TP DAILY [facility] Last Admin: 02/28/19 09:17 Dose: Not Given Zinc Sulfate (Orazinc -) 220 mg PO DAILY [facility] Last Admin: 03/01/19 10:56 Dose: 220 mg Vital Signs Period Temp Pulse Resp BP Sys/Jhaveri Pulse Ox Last 24 Hr 97.3 F-98.5 F 60-142 18-24 81-137/36-96 97-100 Constitutional: Yes: Well Nourished, No Distress Eyes: No: Sclera Icterus HENT: No: Nasal Congestion Neck: No: Decreased ROM Respiratory: Yes: CTA Bilaterally, Diminished (bases), poor effort. No: Accessory Muscle Use, Wheezes Gastrointestinal: Yes: Normal Bowel Sounds. No: Distention, Hepatomegaly, Palpable Mass, Tenderness Cardiovascular: Yes: Regular Rate and Rhythm JVD: No Carotid Bruit: No PMI: Non-Displaced Heart Sounds: Yes: S1, S2. No: Gallop Murmur: No: Systolic Murmur, Diastolic Murmur Musculoskeletal: Yes: Other (No kyphosis) Extremities: No: Cold, Cyanosis Edema: No Peripheral Pulses: 2+ Left Carotid, 2+ Right Carotid, 2+ Left Doralis Pedis, 2+ Right Dorsalis Pedis Integumentary: No: Jaundice Neurological: Yes: Alert. No: Seizure Psychiatric: No: Agitated Assessment/Plan Echo 12/01: nl LV function, RV mod to severely dilated, RV function mod to severely reduced, mod dilated LA/RA, RVSP 40-50 mmHg, mod TR Echo 01/2019 - LV function slightly worsened, 45-50%, LA mod dilated, RV mod to severely dilated, RV function mod to severely reduced, mild MR, mild to mod TR, RA mod to severely dilated, mobile echodensity in pleural space CXR: bilat pulm/pleural changes similar to prior 02/18 ECG: AF, low qrs voltage, no path q's/ST-T--no signif change vs prior tele: afib Acute on chronic hypoxic/hypercapneic respiratory failure, HFpEF, RV dysfunction : -trop neg x 2, ECG non-ischemic -in setting of missed HD session, likely sec to volume overload - HD per renal Afib: -bradycardia (40s-50s) 01/31--stabilized without pacing. no AVN blockers -on AC (xarelto, renally dosed)--continue h/o ? CAD, s/p NSTEMI 01/31 (troponin to 2): most likely Type II secondary to acute strain from CHF/pulm HTN and acute resp failure, vs sec to hypotension at time of arrest -ischemia w/u deferred given pt's prohibitive risk for invasive tx strategy, and unlikely to change mgmt/prognosis ESRD on HD: -per renal h/o DVT /PE on AC (Xarelto): -same plan hypotension, requires midodrine for bp support for HD: -cont prior plan chronic anemia: -stable
[2019-03-01] MEDS ORDERED: SODIUM CHLORIDE 250 ML IV PRN (14:44)
--- NOTE | 2019-03-01 14:44 | PN ---
Progress Note, Physician History of Present Illness: Pt seen and examined at bedside. She is awake and alert. - Current Medication List Current Medications: Active Medications Albuterol/Ipratropium (Duoneb -) 1 amp NEB RQID [facility] Last Admin: 03/01/19 11:20 Dose: 1 amp Albuterol/Ipratropium (Duoneb -) 1 amp NEB Q4H PRN PRN Reason: WHEEZING Bacitracin (Bacitracin -) 1 applic TP BID [facility] Last Admin: 03/01/19 10:56 Dose: 1 applic Buspirone HCl (Buspar -) 5 mg PO BID [facility] Last Admin: 03/01/19 10:56 Dose: 5 mg Collagenase (Santyl -) 1 applic TP DAILY [facility]; Protocol Last Admin: 02/28/19 09:17 Dose: Not Given Docusate Sodium (Colace -) 300 mg PO [facility] Last Admin: 02/28/19 23:01 Dose: Not Given Fludrocortisone Acetate (Florinef -) 0.2 mg PO DAILY [facility] Last Admin: 03/01/19 10:56 Dose: 0.2 mg Hydrocortisone Acetate (Anusol Hc Suppository -) 25 mg RC PRN PRN PRN Reason: HEMORRHOIDS Lactic Acid (Lac-Hydrin 12) 1 applic TP BID [facility] Last Admin: 03/01/19 01:56 Dose: 1 applic Levalbuterol HCl (Xopenex) 0.31 mg IH Q8H PRN PRN Reason: ASTHMA Levothyroxine Sodium (Synthroid -) 50 mcg PO DAILY@0700 [facility] Last Admin: 03/01/19 07:08 Dose: 50 mcg Lidocaine/Prilocaine (Emla -) 1 applic TP Q4H [facility] Melatonin (Melatonin) 5 mg PO [facility] Last Admin: 02/28/19 23:02 Dose: 5 mg Midodrine (Proamatine -) 10 mg PO Q8H PRN PRN Reason: HYPOTENSION Multivit/Ca Carb/B Cmplx/FA/Prenat (Nephro-Evert -) 1 tablet PO DAILY [facility] Last Admin: 03/01/19 10:56 Dose: 1 tablet Non-Formulary Medication (Acetaminophen [8hr Muscle Aches-Pain]) 650 mg PO Q6H PRN PRN Reason: PAIN Non-Formulary Medication (Guaifenesin/Dextromethorphan [Robitussin Cough-Chest Dm Liq]) 237 ml PO PRN PRN PRN Reason: COUGH Non-Formulary Medication (Zinc Oxide 20% Topical Oint) 454 gm TD BID [facility] Nystatin (Mycostatin Ointment -) 1 applic TP BID [facility] Last Admin: 03/01/19 01:57 Dose: 1 applic Ondansetron HCl (Zofran -) 4 mg PO PRN PRN PRN Reason: NAUSEA Pantoprazole Sodium (Protonix -) 40 mg PO DAILY [facility] Last Admin: 03/01/19 10:56 Dose: 40 mg Rivaroxaban (Xarelto) 15 mg PO DAILY@1800 [facility] Last Admin: 02/28/19 23:01 Dose: 15 mg Senna (Senna -) 0 tab PO HS [facility] Sertraline HCl (Zoloft -) 50 mg PO DAILY [facility] Last Admin: 03/01/19 10:56 Dose: 50 mg Silver Sulfadiazine (Silvadene -) 1 applic TP DAILY [facility] Last Admin: 02/28/19 09:17 Dose: Not Given Zinc Sulfate (Orazinc -) 220 mg PO DAILY [facility] Last Admin: 03/01/19 10:56 Dose: 220 mg - Objective Vital Signs: Vital Signs Temperature 98.1 F 03/01/19 06:00 Pulse Rate 71 03/01/19 06:00 Respiratory Rate 22 H 03/01/19 06:00 Blood Pressure 94/60 03/01/19 06:00 O2 Sat by Pulse Oximetry (%) 100 03/01/19 06:15 Constitutional: Yes: Calm Eyes: Yes: Conjunctiva Clear HENT: Yes: Atraumatic Neck: Yes: Supple Cardiovascular: Yes: S1, S2 Respiratory: Yes: On Nasal O2 Gastrointestinal: Yes: Soft Genitourinary: Yes: Incontinence Musculoskeletal: Yes: Muscle Weakness Edema: Yes Edema: LUE: 1+, RUE: 1+, LLE: Trace, RLE: Trace Neurological: Yes: Oriented Psychiatric: Yes: Oriented Labs: CBC, BMP 03/01/19 07:35 03/01/19 07:35 INR, PTT INR 1.79 (0.83-1.09) H 02/28/19 01:30 Problem List - Problems (1) Acute exacerbation of congestive heart failure Code(s): I50.9 - HEART FAILURE, UNSPECIFIED Qualifiers: Heart failure type: unspecified Qualified Code(s): I50.9 - Heart failure, unspecified (2) Acute on chronic respiratory failure with hypercapnia Code(s): J96.22 - ACUTE AND CHRONIC RESPIRATORY FAILURE WITH HYPERCAPNIA (3) COPD (chronic obstructive pulmonary disease) Code(s): J44.9 - CHRONIC OBSTRUCTIVE PULMONARY DISEASE, UNSPECIFIED (4) Shortness of breath Code(s): R06.02 - SHORTNESS OF BREATH (5) Afib Code(s): I48.91 - UNSPECIFIED ATRIAL FIBRILLATION (6) ESRD on hemodialysis Code(s): N18.6 - END STAGE RENAL DISEASE; Z99.2 - DEPENDENCE ON RENAL DIALYSIS Assessment/Plan Current Medications Generic Name Dose Route Start Last Admin Trade Name Freq PRN Reason Stop Dose Admin Albuterol/Ipratropium 1 amp 02/28/19 00:30 03/01/19 11:20 Duoneb - NEB 1 amp RQID [facility] Administration Albuterol/Ipratropium 1 amp 02/28/19 07:01 Duoneb - NEB Q4H PRN WHEEZING Bacitracin 1 applic 02/28/19 10:00 03/01/19 10:56 Bacitracin - TP 1 applic BID [facility] Administration Buspirone HCl 5 mg 02/28/19 10:00 03/01/19 10:56 Buspar - PO 5 mg BID [facility] Administration Collagenase 1 applic 02/28/19 10:00 02/28/19 09:17 Santyl - TP Not Given DAILY [facility] Protocol Docusate Sodium 300 mg 02/28/19 22:00 02/28/19 23:01 Colace - PO Not Given HS [facility] Fludrocortisone Acetate 0.2 mg 02/28/19 10:00 03/01/19 10:56 Florinef - PO 0.2 mg DAILY [facility] Administration Hydrocortisone Acetate 25 mg 02/28/19 07:01 Anusol Hc Suppository - RC PRN PRN HEMORRHOIDS Lactic Acid 1 applic 02/28/19 10:00 03/01/19 01:56 Lac-Hydrin 12 TP 1 applic BID [facility] Administration Levalbuterol HCl 0.31 mg 02/28/19 07:01 Xopenex IH Q8H PRN ASTHMA Levothyroxine Sodium 50 mcg 03/01/19 07:00 03/01/19 07:08 Synthroid - PO 50 mcg DAILY@0700 [facility] Administration Lidocaine/Prilocaine 1 applic 02/28/19 07:15 Emla - TP Q4H [facility] Melatonin 5 mg 02/28/19 22:00 02/28/19 23:02 Melatonin PO 5 mg HS [facility] Administration Midodrine 10 mg 02/28/19 07:01 Proamatine - PO Q8H PRN HYPOTENSION Multivit/Ca Carb/B Cmplx/FA/Prenat 1 tablet 02/28/19 10:00 03/01/19 10:56 Nephro-Evert - PO 1 tablet DAILY [facility] Administration Non-Formulary Medication 650 mg 02/28/19 07:01 Acetaminophen [8hr Muscle Aches-Pain] PO Q6H PRN PAIN Non-Formulary Medication 237 ml 02/28/19 07:01 Guaifenesin/Dextromethorphan [Robitussin Cough-Chest Dm Liq] PO PRN PRN COUGH Non-Formulary Medication 454 gm 02/28/19 10:00 Zinc Oxide 20% Topical Oint TD BID [facility] Nystatin 1 applic 02/28/19 10:00 03/01/19 01:57 Mycostatin Ointment - TP 1 applic BID [facility] Administration Ondansetron HCl 4 mg 02/28/19 07:01 Zofran - PO PRN PRN NAUSE[facility] Pantoprazole Sodium 40 mg 02/28/19 10:00 03/01/19 10:56 Protonix - PO 40 mg DAILY [facility] Administration Rivaroxaban 15 mg 02/28/19 18:00 02/28/19 23:01 Xarelto PO 15 mg DAILY@1800 [facility] Administration Senna 0 tab 02/28/19 22:00 Senna - PO HS [facility] Sertraline HCl 50 mg 02/28/19 10:00 03/01/19 10:56 Zoloft - PO 50 mg DAILY [facility] Administration Silver Sulfadiazine 1 applic 02/28/19 10:00 02/28/19 09:17 Silvadene - TP Not Given DAILY [facility] Zinc Sulfate 220 mg 02/28/19 10:00 03/01/19 10:56 Orazinc - PO 220 mg DAILY [facility] Administration Impression 1. ESRD 2. shortness of breath 3. resp failure requiring bipap 4. chf 5. dvt 6. anemia 7. a-fib 8. hypothyroid 9. pleural effusion Plan - pt tolerated HD yesterday - next HD is tomorrow - renal diet - fluid restriction - cont bipap as needed - HD right thigh cath, 3 k bath, 3 15 time, 400 abf
--- NOTE | 2019-03-01 15:14 | CONS ---
DATE OF CONSULTATION: 02/28/2019 REFERRING PHYSICIAN: Marlene Camargo MD The patient is a 73-year-old female, past medical history of end-stage renal disease, on hemodialysis, history of DVT, atrial fibrillation, on Xarelto, congestive heart failure, COPD, on nasal O2 2 L, hypothyroidism, diabetes, endometrial CA, status post hysterectomy, recently hospitalized at [facility] secondary to acute on chronic respiratory failure, intubated, self-extubated. She is a resident of [facility], was transferred to [facility] with increasing shortness of breath. Patient apparently missed her hemodialysis on Thursday prior to this admission. The patient, in the ER, was noted to be in moderate acute respiratory distress. She was placed on BiPAP and underwent emergency hemodialysis. Past medical history, again, includes COPD, on home O2, congestive heart failure, recent hospitalization February 18 to February 22, end-stage renal disease, on hemodialysis, atrial fibrillation, DVT, history of respiratory failure, endometrial CA, status post hysterectomy, dementia, hypothyroidism. Current medications include acetaminophen, Robitussin-DM, Zofran, Florinef, , Anusol, bacitracin, Xarelto, Zoloft, EMLA, BuSpar, Lac-Hydrin, DuoNeb, Xopenex, Colace, senna, Silvadene, melatonin, Mycostatin, Protonix, Orazinc, Santyl, Synthroid. REVIEW OF SYSTEMS: Unable to obtain at this time PHYSICAL EXAMINATION: General: The patient is an elderly female, awake, confused, on BiPAP, undergoing hemodialysis. Vital Signs: She is currently afebrile. Temperature 98.1. O2 saturation is 100% on BiPAP, 100% FiO2. Respiratory rate is 22. Heart rate 75 and irregular. Blood pressure 137/96, and O2 saturation was 99 on non-rebreather. HEENT: Normocephalic, atraumatic. Neck: Supple. Heart: Irregularly irregular. S1, S2. Chest: Bilateral rales. Abdomen: Soft. Bowel sounds positive. Extremities: No cyanosis, edema. LABORATORY DATA: WBC 4.8, hemoglobin 10.2, hematocrit 32.9, with a platelet count of 128,000. INR is 1.79. BUN 63.8, creatinine 4.8. BNP is greater than 175,000. UA: 3+ protein, 3+ heme, 1+ bilirubin. Chest x-ray: Pulmonary vascular congestion. IMPRESSION: [id number] hypoxemic respiratory failure secondary to: 1. Ytjub-vd-trqlaox congestive heart failure. 2. End-stage renal disease, on hemodialysis. 3. Volume overload. 4. Recent pneumonia. 5. Chronic obstructive pulmonary disease. 6. Atrial fibrillation. 7. Hypothyroidism. 8. Anemia. 9. Diabetes. 10. History of deep vein thromboses. PLAN: Supplemental O2 and IPPV as needed, inhaled bronchodilators. Hemodialysis as per Renal. Daily weights. Obtain followup chest x-rays. Continue anticoagulation. KARTHIKEYAN TURPIN M.D. [id number]
[2019-03-01] MEDS: ACETAMINOPHEN 325 MG TABLET (FP) PO PRN (15:36)
[2019-03-01] MEDS: COLLAGENASE CLOSTRIDIUM HIST. 30 GRAMS TUBE TP SCH (18:56)
[2019-03-01] MEDS: SILVER SULFADIAZINE 1% TOP CREAM 50 GM JAR TP SCH (18:56)
[2019-03-01] MEDS: RIVAROXABAN 15 MG TABLET PO SCH (19:15)
[2019-03-01] MEDS: DOCUSATE SODIUM 100 MG CAPSULE (FP) PO SCH (22:21)
[2019-03-01] MEDS: MELATONIN 5 MG TABLETS PO SCH (22:39)
[2019-03-02] MEDS: LEVOTHYROXINE NA 50 MCG TABLET (FP) PO SCH (07:05)
--- NOTE | 2019-03-02 08:23 | PN ---
Progress Note, Physician - Current Medication List Current Medications: Active Medications Acetaminophen (Tylenol -) 650 mg PO Q6H PRN PRN Reason: PAIN LEVEL 1-5 Last Admin: 03/01/19 15:36 Dose: 650 mg Albumin Human (Albumin Human 25%) 12.5 gm IVPB Q30M [facility] Albuterol/Ipratropium (Duoneb -) 1 amp NEB RQID [facility] Last Admin: 03/01/19 20:45 Dose: 1 amp Albuterol/Ipratropium (Duoneb -) 1 amp NEB Q4H PRN PRN Reason: WHEEZING Bacitracin (Bacitracin -) 1 applic TP BID [facility] Last Admin: 03/01/19 22:40 Dose: 1 applic Buspirone HCl (Buspar -) 5 mg PO BID [facility] Last Admin: 03/01/19 22:39 Dose: 5 mg Collagenase (Santyl -) 1 applic TP DAILY [facility]; Protocol Last Admin: 03/01/19 18:56 Dose: Not Given Docusate Sodium (Colace -) 300 mg PO [facility] Last Admin: 03/01/19 22:21 Dose: Not Given Epoetin Memo (Epogen -) 10,000 unit IVPUSH ONCE ONE Stop: 03/02/19 14:45 Fludrocortisone Acetate (Florinef -) 0.2 mg PO DAILY [facility] Last Admin: 03/01/19 10:56 Dose: 0.2 mg Hydrocortisone Acetate (Anusol Hc Suppository -) 25 mg RC PRN PRN PRN Reason: HEMORRHOIDS Sodium Chloride (Normal Saline -) 250 mls @ 3,000 mls/hr IV PRN PRN PRN Reason: Hypotension during Dialysis Stop: 03/02/19 14:44 Lactic Acid (Lac-Hydrin 12) 1 applic TP BID [facility] Last Admin: 03/01/19 22:39 Dose: 1 applic Levalbuterol HCl (Xopenex) 0.31 mg IH Q8H PRN PRN Reason: ASTHMA Levothyroxine Sodium (Synthroid -) 50 mcg PO DAILY@0700 [facility] Last Admin: 03/02/19 07:05 Dose: 50 mcg Lidocaine/Prilocaine (Emla -) 1 applic TP Q4H [facility] Melatonin (Melatonin) 5 mg PO HS [facility] Last Admin: 03/01/19 22:39 Dose: 5 mg Midodrine (Proamatine -) 10 mg PO Q8H PRN PRN Reason: HYPOTENSION Multivit/Ca Carb/B Cmplx/FA/Prenat (Nephro-Evert -) 1 tablet PO DAILY [facility] Last Admin: 03/01/19 10:56 Dose: 1 tablet Non-Formulary Medication (Guaifenesin/Dextromethorphan [Robitussin Cough-Chest Dm Liq]) 237 ml PO PRN PRN PRN Reason: COUGH Non-Formulary Medication (Zinc Oxide 20% Topical Oint) 454 gm TD BID [facility] Nystatin (Mycostatin Ointment -) 1 applic TP BID [facility] Last Admin: 03/01/19 22:44 Dose: 1 applic Ondansetron HCl (Zofran -) 4 mg PO PRN PRN PRN Reason: NAUSEA Pantoprazole Sodium (Protonix -) 40 mg PO DAILY [facility] Last Admin: 03/01/19 10:56 Dose: 40 mg Rivaroxaban (Xarelto) 15 mg PO DAILY@1800 [facility] Last Admin: 03/01/19 19:15 Dose: 15 mg Senna (Senna -) 0 tab PO [facility] Sertraline HCl (Zoloft -) 50 mg PO DAILY [facility] Last Admin: 03/01/19 10:56 Dose: 50 mg Silver Sulfadiazine (Silvadene -) 1 applic TP DAILY [facility] Last Admin: 03/01/19 18:56 Dose: 1 applic Zinc Sulfate (Orazinc -) 220 mg PO DAILY [facility] Last Admin: 03/01/19 10:56 Dose: 220 mg - Objective Vital Signs: Vital Signs Temperature 98.5 F 03/02/19 05:00 Pulse Rate 64 03/02/19 05:00 Respiratory Rate 20 03/02/19 05:00 Blood Pressure 90/41 L 03/02/19 05:00 O2 Sat by Pulse Oximetry (%) 98 03/02/19 04:10 Cardiovascular: Yes: S1, S2 Respiratory: Yes: Diminished, On Nasal O2 Gastrointestinal: Yes: Normal Bowel Sounds, Soft Labs: CBC, BMP 03/01/19 07:35 03/01/19 07:35 INR, PTT INR 1.79 (0.83-1.09) H 02/28/19 01:30 Assessment/Plan - Problems (1) Acute exacerbation of congestive heart failure Assessment/Plan: -Cardiology consult -BNP >[id number] -Echo 01/31 EF 45-50%, LA moderately dilated, RV moderately to severely dilated, RV function moderately to severely reduced, mild MR, mild to moderatre TR, RA moderate to severely dilated -1L fluid restriction -daily weight -trop neg -tele monitoring -CXR shows bilateral pulmonary pleural changes have diminished minimally on the right but remain unchanged on left--repeat worsening effusion -d/w dr lawson for ct chest -To D/W Renal regarding volume overload and recurrence Code(s): I50.9 - HEART FAILURE, UNSPECIFIED Qualifiers: Heart failure type: unspecified Qualified Code(s): I50.9 - Heart failure, unspecified (2) Acute on chronic respiratory failure with hypercapnia Assessment/Plan: -Pulm on board -Bipap HS an as needed -O2 via NC -keep SpO2 >90% -bonchodilators -Xopenex Code(s): J96.22 - ACUTE AND CHRONIC RESPIRATORY FAILURE WITH HYPERCAPNIA (3) COPD (chronic obstructive pulmonary disease) Assessment/Plan: -Pulm on board -Bipap HS an as needed -O2 via NC -keep SpO2 >90% -bonchodilators -Xopenex Code(s): J44.9 - CHRONIC OBSTRUCTIVE PULMONARY DISEASE, UNSPECIFIED (4) Afib Assessment/Plan: -Xarelto Code(s): I48.91 - UNSPECIFIED ATRIAL FIBRILLATION (5) ESRD on hemodialysis Assessment/Plan: -Renal on board -HD on scheduled days -BUN/Cr 63.8/4.1 -monitor renal function Code(s): N18.6 - END STAGE RENAL DISEASE; Z99.2 - DEPENDENCE ON RENAL DIALYSIS (6) H/O deep venous thrombosis Assessment/Plan: -Xarelto Code(s): Z86.718 - PERSONAL HISTORY OF OTHER VENOUS THROMBOSIS AND EMBOLISM (7) Hypotension Assessment/Plan: -[place] Code(s): I95.9 - HYPOTENSION, UNSPECIFIED Qualifiers: Hypotension type: unspecified hypotension type Qualified Code(s): I95.9 - Hypotension, unspecified (8) Hypothyroid Assessment/Plan: -Levothyroxine Code(s): E03.9 - HYPOTHYROIDISM, UNSPECIFIED
--- NOTE | 2019-03-02 08:39 | DS ---
Physical Examination Vital Signs: Vital Signs Temperature 98.5 F 03/02/19 05:00 Pulse Rate 64 03/02/19 05:00 Respiratory Rate 20 03/02/19 05:00 Blood Pressure 90/41 L 03/02/19 05:00 O2 Sat by Pulse Oximetry (%) 98 03/02/19 04:10 Labs: CBC, BMP 03/01/19 07:35 03/01/19 07:35 Discharge Summary Reason For Visit: ACUTE ON CHRONIC CONGESTIVE HEART FAILURE Current Active Problems Acute exacerbation of congestive heart failure (Acute) Acute on chronic respiratory failure with hypercapnia (Acute) COPD (chronic obstructive pulmonary disease) (Acute) Shortness of breath (Acute) Sleep apnea (Acute) Condition: Improved - Instructions Disposition: [facility] - Home Medications Comprehensive Discharge Medication List: Ambulatory Orders Acetaminophen [8Hr Muscle Aches-Pain] 650 mg PO PRN PRN 02/19/19 Ammonium Lactate Lotion [Lac-Hydrin 12] 1 applic TP BID 02/19/19 Bacitracin - [Bacitracin Topical Ointment -] 1 applic TP BID 02/19/19 Buspirone HCl [Buspar -] 5 mg PO BID 02/19/19 Collagenase Clostridium Hist. [Santyl] 1 applic TP DAILY 02/19/19 Guaifenesin/Dextromethorphan [Robitussin Cough-Chest Dm Liq] 237 ml PO PRN PRN 02/19/19 Hydrocortisone Acetate [Anusol Hc Suppository -] 25 mg RC PRN PRN 02/19/19 Ipratropium/Albuterol Sulfate [Iprat-Albut 0.5-3(2.5) mg/3 ml] 3 ml IH Q4H PRN 02/19/19 Levothyroxine [Synthroid -] 50 mcg PO DAILY 02/19/19 Lidocaine/Prilocaine Cream [Lidocaine-Prilocaine Cream -] 1 applic TP Q4H Nystatin Ointment [Mycostatin Ointment -] 1 applic TP BID 02/19/19 Ondansetron [Zofran -] 4 mg PO PRN PRN 02/19/19 Pantoprazole Sodium [Protonix] 40 mg PO DAILY 02/19/19 Rivaroxaban [Xarelto] 15 mg PO DAILY 02/19/19 Sennosides [Senna] 8.6 mg PO HS 02/19/19 Sertraline HCl [Zoloft -] 50 mg PO DAILY 02/19/19 Silver Sulfadiazine [Silvadene] 1 applic TP DAILY 02/19/19 Vitamin B Comp W-C [Nephro-Evert -] 1 tablet PO DAILY 02/19/19 Zinc Oxide 20% Topical Oint 454 gm TD BID 02/19/19 Zinc Sulfate [Orazinc -] 220 mg PO DAILY 02/19/19 Buspirone HCl [Buspar -] 5 mg PO BID tablet 02/23/19 Docusate Sodium [Colace -] 300 mg PO HS capsule 02/23/19 Fludrocortisone Acetate [Florinef -] 0.2 mg PO DAILY tablet 02/23/19 Levalbuterol HCl [Xopenex] 0.31 mg IH Q8H PRN vial.neb 02/23/19 Levothyroxine [Synthroid -] 25 mcg PO DAILY@0700 tablet 02/23/19 Melatonin 5 mg PO HS tab 02/23/19 Midodrine HCl [Proamatine -] 10 mg PO Q8H PRN tablet 02/23/19 Rivaroxaban [Xarelto] 15 mg PO DAILY@1800 tablet 02/23/19 Sertraline HCl [Zoloft -] 50 mg PO DAILY tablet 02/23/19
[2019-03-02] MEDS: ALBUTEROL SO4 2.5/IPRATROPIUM 0.5 INH SOL 3 ML VIAL.NEB. NEB SCH ×4 (09:06→20:56)
[2019-03-02] MEDS: NYSTATIN 100000 UNIT/GM TOPICAL OINTMENT 15 GM TUBE TP SCH ×2 (10:00→23:02)
[2019-03-02] MEDS ORDERED: EPOETIN ALFA 10,000 UNIT/1 ML VIAL IVPUSH ONE (10:00)
[2019-03-02] MEDS: BACITRACIN 15 GM TUBE TOPICAL OINTMENT TP SCH ×2 (10:00→23:02)
[2019-03-02] MEDS: AMMONIUM LACTATE 12% LOTION 225 GM BOTTLE TP SCH ×2 (10:00→23:02)
[2019-03-02] MEDS: ALBUMIN HUMAN 25% 12.5 GM/50 ML VIAL IVPB SCH ×4 (10:11→11:30)
[2019-03-02 10:29] LABS: HEMATOCRIT 28.1 % (32.4-45.2); HEMOGLOBIN 8.7 GM/dL (10.7-15.3); MCH 29.9 pg (25.7-33.7); MCHC 31.1 g/dl (32.0-36.0); MEAN CELL VOLUME 96.4 fl (80-96); PLATELET COUNT 103 K/MM3 (134-434); RBC 2.92 M/mm3 (3.60-5.2); RDW 18.7 % (11.6-15.6); WHITE BLOOD COUNT 3.7 K/mm3 (4.0-10.0)
--- NOTE | 2019-03-02 10:40 | PN ---
Progress Note, Physician History of Present Illness: pulmonary awake,less dyspneic on nasal o2,currently on HD - Current Medication List Current Medications: Active Medications Acetaminophen (Tylenol -) 650 mg PO Q6H PRN PRN Reason: PAIN LEVEL 1-5 Last Admin: 03/01/19 15:36 Dose: 650 mg Albumin Human (Albumin Human 25%) 12.5 gm IVPB Q30M [facility] Stop: 03/02/19 11:31 Albuterol/Ipratropium (Duoneb -) 1 amp NEB RQID [facility] Last Admin: 03/02/19 09:06 Dose: 1 amp Albuterol/Ipratropium (Duoneb -) 1 amp NEB Q4H PRN PRN Reason: WHEEZING Bacitracin (Bacitracin -) 1 applic TP BID [facility] Last Admin: 03/01/19 22:40 Dose: 1 applic Buspirone HCl (Buspar -) 5 mg PO BID [facility] Last Admin: 03/01/19 22:39 Dose: 5 mg Collagenase (Santyl -) 1 applic TP DAILY [facility]; Protocol Last Admin: 03/01/19 18:56 Dose: Not Given Docusate Sodium (Colace -) 300 mg PO HS [facility] Last Admin: 03/01/19 22:21 Dose: Not Given Fludrocortisone Acetate (Florinef -) 0.2 mg PO DAILY [facility] Last Admin: 03/01/19 10:56 Dose: 0.2 mg Hydrocortisone Acetate (Anusol Hc Suppository -) 25 mg RC PRN PRN PRN Reason: HEMORRHOIDS Sodium Chloride (Normal Saline -) 250 mls @ 3,000 mls/hr IV PRN PRN PRN Reason: Hypotension during Dialysis Stop: 03/02/19 14:44 Lactic Acid (Lac-Hydrin 12) 1 applic TP BID [facility] Last Admin: 03/01/19 22:39 Dose: 1 applic Levalbuterol HCl (Xopenex) 0.31 mg IH Q8H PRN PRN Reason: ASTHMA Levothyroxine Sodium (Synthroid -) 50 mcg PO DAILY@0700 [facility] Last Admin: 03/02/19 07:05 Dose: 50 mcg Lidocaine/Prilocaine (Emla -) 1 applic TP Q4H [facility] Melatonin (Melatonin) 5 mg PO HS [facility] Last Admin: 03/01/19 22:39 Dose: 5 mg Midodrine (Proamatine -) 10 mg PO Q8H PRN PRN Reason: HYPOTENSION Multivit/Ca Carb/B Cmplx/FA/Prenat (Nephro-Evert -) 1 tablet PO DAILY [facility] Last Admin: 03/01/19 10:56 Dose: 1 tablet Non-Formulary Medication (Guaifenesin/Dextromethorphan [Robitussin Cough-Chest Dm Liq]) 237 ml PO PRN PRN PRN Reason: COUGH Non-Formulary Medication (Zinc Oxide 20% Topical Oint) 454 gm TD BID [facility] Nystatin (Mycostatin Ointment -) 1 applic TP BID [facility] Last Admin: 03/01/19 22:44 Dose: 1 applic Ondansetron HCl (Zofran -) 4 mg PO PRN PRN PRN Reason: NAUSEA Pantoprazole Sodium (Protonix -) 40 mg PO DAILY [facility] Last Admin: 03/01/19 10:56 Dose: 40 mg Rivaroxaban (Xarelto) 15 mg PO DAILY@1800 [facility] Last Admin: 03/01/19 19:15 Dose: 15 mg Senna (Senna -) 0 tab PO [facility] Sertraline HCl (Zoloft -) 50 mg PO DAILY [facility] Last Admin: 03/01/19 10:56 Dose: 50 mg Silver Sulfadiazine (Silvadene -) 1 applic TP DAILY [facility] Last Admin: 03/01/19 18:56 Dose: 1 applic Zinc Sulfate (Orazinc -) 220 mg PO DAILY [facility] Last Admin: 03/01/19 10:56 Dose: 220 mg - Objective Vital Signs: Vital Signs Temperature 98.5 F 03/02/19 05:00 Pulse Rate 92 H 03/02/19 09:45 Respiratory Rate 16 03/02/19 09:45 Blood Pressure 87/48 L 03/02/19 09:45 O2 Sat by Pulse Oximetry (%) 98 03/02/19 04:10 Constitutional: Yes: Well Nourished, Calm Eyes: Yes: WNL HENT: Yes: WNL Neck: Yes: WNL Cardiovascular: Yes: Pulse Irregular, S1, S2 Respiratory: Yes: Rales (BIBASILAR RALES) Gastrointestinal: Yes: Normal Bowel Sounds, Soft Extremities: Yes: WNL Edema: No Labs: CBC, BMP 03/02/19 09:45 INR, PTT INR 1.79 (0.83-1.09) H 02/28/19 01:30 - ....Imaging Chest X-ray: Report Reviewed, Image Reviewed (INCREASED PULMONARY VASCULAR CONGESTION,LARGE BILATERAL PLEURAL EFFUSIONS) Problem List - Problems (1) Acute exacerbation of congestive heart failure Code(s): I50.9 - HEART FAILURE, UNSPECIFIED Qualifiers: Heart failure type: unspecified Qualified Code(s): I50.9 - Heart failure, unspecified (2) COPD (chronic obstructive pulmonary disease) Code(s): J44.9 - CHRONIC OBSTRUCTIVE PULMONARY DISEASE, UNSPECIFIED (3) Shortness of breath Code(s): R06.02 - SHORTNESS OF BREATH (4) Acute respiratory failure Code(s): J96.00 - ACUTE RESPIRATORY FAILURE, UNSP W HYPOXIA OR HYPERCAPNIA Qualifiers: Respiratory failure complication: hypoxia Qualified Code(s): J96.01 - Acute respiratory failure with hypoxia (5) Afib Code(s): I48.91 - UNSPECIFIED ATRIAL FIBRILLATION (6) ESRD on hemodialysis Code(s): N18.6 - END STAGE RENAL DISEASE; Z99.2 - DEPENDENCE ON RENAL DIALYSIS (7) Functional quadriplegia Code(s): R53.2 - FUNCTIONAL QUADRIPLEGIA (8) H/O deep venous thrombosis Code(s): Z86.718 - PERSONAL HISTORY OF OTHER VENOUS THROMBOSIS AND EMBOLISM Assessment/Plan IMP ACUTE RESPIRATORY FAILURE IMPROVING ACUTE ON CHRONIC CHF IMPROVING ESRD ON HD VOLUME OVERLOAD SLOWLY IMPROVING RECENT PNEUMONIA COPD AFIB HYPOTHYROID ANEMIA DM H/O DVT's PLAN O2 NIPPV NEEDED INHALED BRONCHODILATORS HD PER RENAL DAILY WT F/U CHEST X-RAYS AC DR TURPIN Problem List - Problems (1) Acute exacerbation of congestive heart failure Code(s): I50.9 - HEART FAILURE, UNSPECIFIED Qualifiers: Heart failure type: unspecified Qualified Code(s): I50.9 - Heart failure, unspecified (2) COPD (chronic obstructive pulmonary disease) Code(s): J44.9 - CHRONIC OBSTRUCTIVE PULMONARY DISEASE, UNSPECIFIED (3) Shortness of breath Code(s): R06.02 - SHORTNESS OF BREATH (4) Acute respiratory failure Code(s): J96.00 - ACUTE RESPIRATORY FAILURE, UNSP W HYPOXIA OR HYPERCAPNIA Qualifiers: Respiratory failure complication: hypoxia Qualified Code(s): J96.01 - Acute respiratory failure with hypoxia (5) Afib Code(s): I48.91 - UNSPECIFIED ATRIAL FIBRILLATION (6) ESRD on hemodialysis Code(s): N18.6 - END STAGE RENAL DISEASE; Z99.2 - DEPENDENCE ON RENAL DIALYSIS (7) Severe obesity (BMI >= 40) Code(s): E66.01 - MORBID (SEVERE) OBESITY DUE TO EXCESS CALORIES
[2019-03-02 10:54] LABS: BLOOD UREA NITROGEN 43.5 mg/dL (7-18); CALCIUM 8.6 mg/dL (8.5-10.1); CREATININE 3.7 mg/dL (0.55-1.3); POTASSIUM 3.8 mmol/L (3.5-5.1)
[2019-03-02] MEDS: FLUDROCORTISONE ACETATE 0.1 MG TABLET (FP) PO SCH (12:00)
[2019-03-02] MEDS: busPIRone HCL 5 MG TABLET PO SCH ×2 (12:00→23:01)
--- NOTE | 2019-03-02 13:15 | PN ---
Progress Note, Physician History of Present Illness: Pt seen and examined at bedside. She is tolerating HD today. She feels that her breathing is better. - Current Medication List Current Medications: Active Medications Acetaminophen (Tylenol -) 650 mg PO Q6H PRN PRN Reason: PAIN LEVEL 1-5 Last Admin: 03/01/19 15:36 Dose: 650 mg Albuterol/Ipratropium (Duoneb -) 1 amp NEB RQID [facility] Last Admin: 03/02/19 11:45 Dose: 1 amp Albuterol/Ipratropium (Duoneb -) 1 amp NEB Q4H PRN PRN Reason: WHEEZING Bacitracin (Bacitracin -) 1 applic TP BID [facility] Last Admin: 03/01/19 22:40 Dose: 1 applic Buspirone HCl (Buspar -) 5 mg PO BID [facility] Last Admin: 03/01/19 22:39 Dose: 5 mg Collagenase (Santyl -) 1 applic TP DAILY [facility]; Protocol Last Admin: 03/01/19 18:56 Dose: Not Given Docusate Sodium (Colace -) 300 mg PO HS [facility] Last Admin: 03/01/19 22:21 Dose: Not Given Fludrocortisone Acetate (Florinef -) 0.2 mg PO DAILY [facility] Last Admin: 03/01/19 10:56 Dose: 0.2 mg Hydrocortisone Acetate (Anusol Hc Suppository -) 25 mg RC PRN PRN PRN Reason: HEMORRHOIDS Sodium Chloride (Normal Saline -) 250 mls @ 3,000 mls/hr IV PRN PRN PRN Reason: Hypotension during Dialysis Stop: 03/02/19 14:44 Lactic Acid (Lac-Hydrin 12) 1 applic TP BID [facility] Last Admin: 03/01/19 22:39 Dose: 1 applic Levalbuterol HCl (Xopenex) 0.31 mg IH Q8H PRN PRN Reason: ASTHMA Levothyroxine Sodium (Synthroid -) 50 mcg PO DAILY@0700 [facility] Last Admin: 03/02/19 07:05 Dose: 50 mcg Lidocaine/Prilocaine (Emla -) 1 applic TP Q4H [facility] Melatonin (Melatonin) 5 mg PO HS [facility] Last Admin: 03/01/19 22:39 Dose: 5 mg Midodrine (Proamatine -) 10 mg PO Q8H PRN PRN Reason: HYPOTENSION Multivit/Ca Carb/B Cmplx/FA/Prenat (Nephro-Evert -) 1 tablet PO DAILY [facility] Last Admin: 03/01/19 10:56 Dose: 1 tablet Non-Formulary Medication (Guaifenesin/Dextromethorphan [Robitussin Cough-Chest Dm Liq]) 237 ml PO PRN PRN PRN Reason: COUGH Non-Formulary Medication (Zinc Oxide 20% Topical Oint) 454 gm TD BID [facility] Nystatin (Mycostatin Ointment -) 1 applic TP BID [facility] Last Admin: 03/01/19 22:44 Dose: 1 applic Ondansetron HCl (Zofran -) 4 mg PO PRN PRN PRN Reason: NAUSEA Pantoprazole Sodium (Protonix -) 40 mg PO DAILY [facility] Last Admin: 03/01/19 10:56 Dose: 40 mg Rivaroxaban (Xarelto) 15 mg PO DAILY@1800 [facility] Last Admin: 03/01/19 19:15 Dose: 15 mg Senna (Senna -) 0 tab PO HS [facility] Sertraline HCl (Zoloft -) 50 mg PO DAILY [facility] Last Admin: 03/01/19 10:56 Dose: 50 mg Silver Sulfadiazine (Silvadene -) 1 applic TP DAILY [facility] Last Admin: 03/01/19 18:56 Dose: 1 applic Zinc Sulfate (Orazinc -) 220 mg PO DAILY [facility] Last Admin: 03/01/19 10:56 Dose: 220 mg - Objective Vital Signs: Vital Signs Temperature 98.5 F 03/02/19 05:00 Pulse Rate 68 03/02/19 11:45 Respiratory Rate 16 03/02/19 11:45 Blood Pressure 100/45 L 03/02/19 11:45 O2 Sat by Pulse Oximetry (%) 98 03/02/19 09:35 Constitutional: Yes: Calm Eyes: Yes: Conjunctiva Clear HENT: Yes: Atraumatic Neck: Yes: Supple Cardiovascular: Yes: S1, S2 Respiratory: Yes: On Nasal O2 Gastrointestinal: Yes: Soft Genitourinary: Yes: Incontinence Musculoskeletal: Yes: Muscle Weakness Edema: Yes Edema: LUE: 1+, RUE: 1+ Neurological: Yes: Oriented Psychiatric: Yes: Oriented Labs: CBC, BMP 03/02/19 09:45 03/02/19 09:45 INR, PTT INR 1.79 (0.83-1.09) H 02/28/19 01:30 Problem List - Problems (1) Acute exacerbation of congestive heart failure Code(s): I50.9 - HEART FAILURE, UNSPECIFIED Qualifiers: Heart failure type: unspecified Qualified Code(s): I50.9 - Heart failure, unspecified (2) Acute on chronic respiratory failure with hypercapnia Code(s): J96.22 - ACUTE AND CHRONIC RESPIRATORY FAILURE WITH HYPERCAPNIA (3) COPD (chronic obstructive pulmonary disease) Code(s): J44.9 - CHRONIC OBSTRUCTIVE PULMONARY DISEASE, UNSPECIFIED (4) Shortness of breath Code(s): R06.02 - SHORTNESS OF BREATH (5) Afib Code(s): I48.91 - UNSPECIFIED ATRIAL FIBRILLATION (6) ESRD on hemodialysis Code(s): N18.6 - END STAGE RENAL DISEASE; Z99.2 - DEPENDENCE ON RENAL DIALYSIS Assessment/Plan Current Medications Generic Name Dose Route Start Last Admin Trade Name Freq PRN Reason Stop Dose Admin Acetaminophen 650 mg 03/01/19 15:11 03/01/19 15:36 Tylenol - PO 650 mg Q6H PRN Administration PAIN LEVEL 1-5 Albuterol/Ipratropium 1 amp 02/28/19 00:30 03/02/19 11:45 Duoneb - NEB 1 amp RQID [facility] Administration Albuterol/Ipratropium 1 amp 02/28/19 07:01 Duoneb - NEB Q4H PRN WHEEZING Bacitracin 1 applic 02/28/19 10:00 03/01/19 22:40 Bacitracin - TP 1 applic BID [facility] Administration Buspirone HCl 5 mg 02/28/19 10:00 03/01/19 22:39 Buspar - PO 5 mg BID [facility] Administration Collagenase 1 applic 02/28/19 10:00 03/01/19 18:56 Santyl - TP Not Given DAILY [facility] Protocol Docusate Sodium 300 mg 02/28/19 22:00 03/01/19 22:21 Colace - PO Not Given HS [facility] Fludrocortisone Acetate 0.2 mg 02/28/19 10:00 03/01/19 10:56 Florinef - PO 0.2 mg DAILY [facility] Administration Hydrocortisone Acetate 25 mg 02/28/19 07:01 Anusol Hc Suppository - RC PRN PRN HEMORRHOIDS Sodium Chloride 250 mls @ 3,000 mls/hr 03/01/19 14:44 Normal Saline - IV 03/02/19 14:44 PRN PRN Hypotension during Dialysis Lactic Acid 1 applic 02/28/19 10:00 03/01/19 22:39 Lac-Hydrin 12 TP 1 applic BID [facility] Administration Levalbuterol HCl 0.31 mg 02/28/19 07:01 Xopenex IH Q8H PRN ASTHMA Levothyroxine Sodium 50 mcg 03/01/19 07:00 03/02/19 07:05 Synthroid - PO 50 mcg DAILY@0700 [facility] Administration Lidocaine/Prilocaine 1 applic 02/28/19 07:15 Emla - TP Q4H [facility] Melatonin 5 mg 02/28/19 22:00 03/01/19 22:39 Melatonin PO 5 mg HS [facility] Administration Midodrine 10 mg 02/28/19 07:01 Proamatine - PO Q8H PRN HYPOTENSION Multivit/Ca Carb/B Cmplx/FA/Prenat 1 tablet 02/28/19 10:00 03/01/19 10:56 Nephro-Evert - PO 1 tablet DAILY [facility] Administration Non-Formulary Medication 237 ml 02/28/19 07:01 Guaifenesin/Dextromethorphan [Robitussin Cough-Chest Dm Liq] PO PRN PRN COUGH Non-Formulary Medication 454 gm 02/28/19 10:00 Zinc Oxide 20% Topical Oint TD BID [facility] Nystatin 1 applic 02/28/19 10:00 03/01/19 22:44 Mycostatin Ointment - TP 1 applic BID [facility] Administration Ondansetron HCl 4 mg 02/28/19 07:01 Zofran - PO PRN PRN NAUSEA Pantoprazole Sodium 40 mg 02/28/19 10:00 03/01/19 10:56 Protonix - PO 40 mg DAILY [facility] Administration Rivaroxaban 15 mg 02/28/19 18:00 03/01/19 19:15 Xarelto PO 15 mg DAILY@1800 [facility] Administration Senna 0 tab 02/28/19 22:00 Senna - PO HS [facility] Sertraline HCl 50 mg 02/28/19 10:00 03/01/19 10:56 Zoloft - PO 50 mg DAILY [facility] Administration Silver Sulfadiazine 1 applic 02/28/19 10:00 03/01/19 18:56 Silvadene - TP 1 applic DAILY [facility] Administration Zinc Sulfate 220 mg 02/28/19 10:00 03/01/19 10:56 Orazinc - PO 220 mg DAILY [facility] Administration Impression 1. ESRD 2. shortness of breath 3. resp failure requiring bipap 4. chf 5. dvt 6. anemia 7. a-fib 8. hypothyroid 9. pleural effusion Plan - HD today - she has HD set up as outpt - renal diet - fluid restriction - cont bipap as needed, pt now on NC 02 - HD right thigh cath, 3 k bath, 3 15 time, 400 abf
[2019-03-02] MEDS: VITAMIN B COMP W-C 1 EA TABLET PO SCH (14:31)
[2019-03-02] MEDS: COLLAGENASE CLOSTRIDIUM HIST. 30 GRAMS TUBE TP SCH (14:32)
[2019-03-02] MEDS: ZINC SULFATE 220 MG CAPSULE (FP) PO SCH (14:32)
[2019-03-02] MEDS: SILVER SULFADIAZINE 1% TOP CREAM 50 GM JAR TP SCH (14:32)
[2019-03-02] MEDS: PANTOPRAZOLE 40 MG TABLET (FP) PO SCH (14:32)
[2019-03-02] MEDS: SERTRALINE HCL 50 MG TABLET (FP) PO SCH (14:32)
--- NOTE | 2019-03-02 15:24 | PN ---
Progress Note (short form) - Note Progress Note: s: no chest pain, palps, dizziness sob Current Medications Generic Name Dose Route Start Last Admin Trade Name Freq PRN Reason Stop Dose Admin Acetaminophen 650 mg 03/01/19 15:11 03/01/19 15:36 Tylenol - PO 650 mg Q6H PRN Administration PAIN LEVEL 1-5 Albuterol/Ipratropium 1 amp 02/28/19 00:30 03/02/19 11:45 Duoneb - NEB 1 amp RQID [facility] Administration Albuterol/Ipratropium 1 amp 02/28/19 07:01 Duoneb - NEB Q4H PRN WHEEZING Bacitracin 1 applic 02/28/19 10:00 03/02/19 10:00 Bacitracin - TP 1 applic BID [facility] Administration Buspirone HCl 5 mg 02/28/19 10:00 03/02/19 12:00 Buspar - PO Not Given BID [facility] Collagenase 1 applic 02/28/19 10:00 03/02/19 14:32 Santyl - TP Not Given DAILY [facility] Protocol Docusate Sodium 300 mg 02/28/19 22:00 03/01/19 22:21 Colace - PO Not Given HS [facility] Fludrocortisone Acetate 0.2 mg 02/28/19 10:00 03/02/19 12:00 Florinef - PO Not Given DAILY [facility] Hydrocortisone Acetate 25 mg 02/28/19 07:01 Anusol Hc Suppository - RC PRN PRN HEMORRHOIDS Sodium Chloride 250 mls @ 3,000 mls/hr 03/01/19 14:44 Normal Saline - IV 03/02/19 14:44 PRN PRN Hypotension during Dialysis Lactic Acid 1 applic 02/28/19 10:00 03/02/19 10:00 Lac-Hydrin 12 TP 1 applic BID [facility] Administration Levalbuterol HCl 0.31 mg 02/28/19 07:01 Xopenex IH Q8H PRN ASTHMA Levothyroxine Sodium 50 mcg 03/01/19 07:00 03/02/19 07:05 Synthroid - PO 50 mcg DAILY@0700 [facility] Administration Lidocaine/Prilocaine 1 applic 02/28/19 07:15 Emla - TP Q4H [facility] Melatonin 5 mg 02/28/19 22:00 03/01/19 22:39 Melatonin PO 5 mg HS [facility] Administration Midodrine 10 mg 02/28/19 07:01 Proamatine - PO Q8H PRN HYPOTENSION Multivit/Ca Carb/B Cmplx/FA/Prenat 1 tablet 02/28/19 10:00 03/02/19 14:31 Nephro-Evert - PO Not Given DAILY [facility] Non-Formulary Medication 237 ml 02/28/19 07:01 Guaifenesin/Dextromethorphan [Robitussin Cough-Chest Dm Liq] PO PRN PRN COUGH Non-Formulary Medication 454 gm 02/28/19 10:00 Zinc Oxide 20% Topical Oint TD BID [facility] Nystatin 1 applic 02/28/19 10:00 03/02/19 10:00 Mycostatin Ointment - TP 1 applic BID [facility] Administration Ondansetron HCl 4 mg 02/28/19 07:01 Zofran - PO PRN PRN NAUSEA Pantoprazole Sodium 40 mg 02/28/19 10:00 03/02/19 14:32 Protonix - PO Not Given DAILY [facility] Rivaroxaban 15 mg 02/28/19 18:00 03/01/19 19:15 Xarelto PO 15 mg DAILY@1800 [facility] Administration Senna 0 tab 02/28/19 22:00 Senna - PO HS [facility] Sertraline HCl 50 mg 02/28/19 10:00 03/02/19 14:32 Zoloft - PO Not Given DAILY [facility] Silver Sulfadiazine 1 applic 02/28/19 10:00 03/02/19 14:32 Silvadene - TP 1 applic DAILY [facility] Administration Zinc Sulfate 220 mg 02/28/19 10:00 03/02/19 14:32 Orazinc - PO Not Given DAILY [facility] Vital Signs Period Temp Pulse Resp BP Sys/Jhaveri Pulse Ox Last 24 Hr 97.5 F-98.5 F 64-92 16-22 86-104/41-63 98-98 Constitutional: Yes: Well Nourished, No Distress Eyes: No: Sclera Icterus Respiratory: Yes: CTA Bilaterally, Diminished (bases), poor effort. No: Accessory Muscle Use, Wheezes Gastrointestinal: Yes: Normal Bowel Sounds. No: Distention, Hepatomegaly, Palpable Mass, Tenderness Cardiovascular: Yes: Regular Rate and Rhythm JVD: No Carotid Bruit: No PMI: Non-Displaced Heart Sounds: Yes: S1, S2. No: Gallop Murmur: No: Systolic Murmur, Diastolic Murmur Extremities: No: Cold, Cyanosis Edema: No Peripheral Pulses: 2+ Left Carotid, 2+ Right Carotid, 2+ Left Doralis Pedis, 2+ Right Dorsalis Pedis Integumentary: No: Jaundice Neurological: Yes: Alert. No: Seizure Psychiatric: No: Agitated CBC, BMP 03/02/19 09:45 03/02/19 09:45 Assessment/Plan Echo 12/01: nl LV function, RV mod to severely dilated, RV function mod to severely reduced, mod dilated LA/RA, RVSP 40-50 mmHg, mod TR Echo 01/2019 - LV function slightly worsened, 45-50%, LA mod dilated, RV mod to severely dilated, RV function mod to severely reduced, mild MR, mild to mod TR, RA mod to severely dilated, mobile echodensity in pleural space CXR: bilat pulm/pleural changes similar to prior 02/18 ECG: AF, low qrs voltage, no path q's/ST-T--no signif change vs prior tele: afib, rate ok Acute on chronic hypoxic/hypercapneic respiratory failure, HFpEF, RV dysfunction : -trop neg x 2, ECG non-ischemic -in setting of missed HD session, likely sec to volume overload - HD per renal Afib: -bradycardia (40s-50s) 01/31--stabilized without pacing. no AVN blockers -on AC (xarelto, renally dosed)--continue h/o ? 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
[2019-03-02] MEDS: RIVAROXABAN 15 MG TABLET PO SCH (18:47)
[2019-03-02] MEDS: MELATONIN 5 MG TABLETS PO SCH (23:01)
[2019-03-02] MEDS: ACETAMINOPHEN 325 MG TABLET (FP) PO PRN (23:01)
[2019-03-02] MEDS: DOCUSATE SODIUM 100 MG CAPSULE (FP) PO SCH (23:02)
[2019-03-02] MEDS ORDERED: PT OWN MED DRAWER 7, Y5N ONE (23:09)
[2019-03-03] MEDS: LEVOTHYROXINE NA 50 MCG TABLET (FP) PO SCH (06:34)
[2019-03-03] MEDS: ALBUTEROL SO4 2.5/IPRATROPIUM 0.5 INH SOL 3 ML VIAL.NEB. NEB SCH ×2 (08:42→13:09)
[2019-03-03] MEDS: NYSTATIN 100000 UNIT/GM TOPICAL OINTMENT 15 GM TUBE TP SCH (09:38)
[2019-03-03] MEDS: BACITRACIN 15 GM TUBE TOPICAL OINTMENT TP SCH (09:38)
[2019-03-03] MEDS: AMMONIUM LACTATE 12% LOTION 225 GM BOTTLE TP SCH (09:38)
[2019-03-03] MEDS: PANTOPRAZOLE 40 MG TABLET (FP) PO SCH (09:39)
[2019-03-03] MEDS: SILVER SULFADIAZINE 1% TOP CREAM 50 GM JAR TP SCH (09:39)
[2019-03-03] MEDS: VITAMIN B COMP W-C 1 EA TABLET PO SCH (09:39)
[2019-03-03] MEDS: SERTRALINE HCL 50 MG TABLET (FP) PO SCH (09:40)
[2019-03-03] MEDS: ZINC SULFATE 220 MG CAPSULE (FP) PO SCH (09:40)
[2019-03-03] MEDS: FLUDROCORTISONE ACETATE 0.1 MG TABLET (FP) PO SCH (09:40)
[2019-03-03] MEDS: busPIRone HCL 5 MG TABLET PO SCH (09:41)
[2019-03-03] MEDS: COLLAGENASE CLOSTRIDIUM HIST. 30 GRAMS TUBE TP SCH (09:41)
--- NOTE | 2019-03-03 10:42 | PN ---
Progress Note, Physician History of Present Illness: pulmonary alert,comfortable,-resp distress - Current Medication List Current Medications: Active Medications Acetaminophen (Tylenol -) 650 mg PO Q6H PRN PRN Reason: PAIN LEVEL 1-5 Last Admin: 03/02/19 23:01 Dose: 650 mg Albuterol/Ipratropium (Duoneb -) 1 amp NEB RQID [facility] Last Admin: 03/03/19 08:42 Dose: 1 amp Albuterol/Ipratropium (Duoneb -) 1 amp NEB Q4H PRN PRN Reason: WHEEZING Bacitracin (Bacitracin -) 1 applic TP BID [facility] Last Admin: 03/03/19 09:38 Dose: 1 applic Buspirone HCl (Buspar -) 5 mg PO BID [facility] Last Admin: 03/03/19 09:41 Dose: 5 mg Collagenase (Santyl -) 1 applic TP DAILY [facility]; Protocol Last Admin: 03/03/19 09:41 Dose: Not Given Docusate Sodium (Colace -) 300 mg PO HS [facility] Last Admin: 03/02/19 23:02 Dose: Not Given Fludrocortisone Acetate (Florinef -) 0.2 mg PO DAILY [facility] Last Admin: 03/03/19 09:40 Dose: 0.2 mg Hydrocortisone Acetate (Anusol Hc Suppository -) 25 mg RC PRN PRN PRN Reason: HEMORRHOIDS Sodium Chloride (Normal Saline -) 250 mls @ 3,000 mls/hr IV PRN PRN PRN Reason: Hypotension during Dialysis Stop: 03/02/19 14:44 Lactic Acid (Lac-Hydrin 12) 1 applic TP BID [facility] Last Admin: 03/03/19 09:38 Dose: 1 applic Levalbuterol HCl (Xopenex) 0.31 mg IH Q8H PRN PRN Reason: ASTHMA Levothyroxine Sodium (Synthroid -) 50 mcg PO DAILY@0700 [facility] Last Admin: 03/03/19 06:34 Dose: 50 mcg Lidocaine/Prilocaine (Emla -) 1 applic TP Q4H [facility] Melatonin (Melatonin) 5 mg PO HS [facility] Last Admin: 03/02/19 23:01 Dose: 5 mg Midodrine (Proamatine -) 10 mg PO Q8H PRN PRN Reason: HYPOTENSION Multivit/Ca Carb/B Cmplx/FA/Prenat (Nephro-Evert -) 1 tablet PO DAILY [facility] Last Admin: 03/03/19 09:39 Dose: 1 tablet Non-Formulary Medication (Guaifenesin/Dextromethorphan [Robitussin Cough-Chest Dm Liq]) 237 ml PO PRN PRN PRN Reason: COUGH Non-Formulary Medication (Zinc Oxide 20% Topical Oint) 454 gm TD BID [facility] Nystatin (Mycostatin Ointment -) 1 applic TP BID [facility] Last Admin: 03/03/19 09:38 Dose: 1 applic Ondansetron HCl (Zofran -) 4 mg PO PRN PRN PRN Reason: NAUSEA Pantoprazole Sodium (Protonix -) 40 mg PO DAILY [facility] Last Admin: 03/03/19 09:39 Dose: 40 mg Rivaroxaban (Xarelto) 15 mg PO DAILY@1800 [facility] Last Admin: 03/02/19 18:47 Dose: 15 mg Senna (Senna -) 0 tab PO HS [facility] Sertraline HCl (Zoloft -) 50 mg PO DAILY [facility] Last Admin: 03/03/19 09:40 Dose: 50 mg Silver Sulfadiazine (Silvadene -) 1 applic TP DAILY [facility] Last Admin: 03/03/19 09:39 Dose: 1 applic Zinc Sulfate (Orazinc -) 220 mg PO DAILY [facility] Last Admin: 03/03/19 09:40 Dose: 220 mg - Objective Vital Signs: Vital Signs Temperature 98.7 F 03/03/19 02:00 Pulse Rate 64 03/03/19 06:00 Respiratory Rate 20 03/03/19 09:00 Blood Pressure 100/62 03/03/19 06:00 O2 Sat by Pulse Oximetry (%) 95 03/03/19 09:00 Constitutional: Yes: Well Nourished, Calm Eyes: Yes: WNL HENT: Yes: WNL Neck: Yes: WNL Cardiovascular: Yes: Pulse Irregular, S1, S2 Respiratory: Yes: Diminished Gastrointestinal: Yes: Normal Bowel Sounds, Soft Extremities: Yes: WNL Edema: No Labs: CBC, BMP Problem List - Problems (1) Acute exacerbation of congestive heart failure Code(s): I50.9 - HEART FAILURE, UNSPECIFIED Qualifiers: Heart failure type: unspecified Qualified Code(s): I50.9 - Heart failure, unspecified (2) COPD (chronic obstructive pulmonary disease) Code(s): J44.9 - CHRONIC OBSTRUCTIVE PULMONARY DISEASE, UNSPECIFIED (3) Shortness of breath Code(s): R06.02 - SHORTNESS OF BREATH (4) Acute respiratory failure Code(s): J96.00 - ACUTE RESPIRATORY FAILURE, UNSP W HYPOXIA OR HYPERCAPNIA Qualifiers: Respiratory failure complication: hypoxia Qualified Code(s): J96.01 - Acute respiratory failure with hypoxia (5) Afib Code(s): I48.91 - UNSPECIFIED ATRIAL FIBRILLATION (6) ESRD on hemodialysis Code(s): N18.6 - END STAGE RENAL DISEASE; Z99.2 - DEPENDENCE ON RENAL DIALYSIS (7) Functional quadriplegia Code(s): R53.2 - FUNCTIONAL QUADRIPLEGIA (8) H/O deep venous thrombosis Code(s): Z86.718 - PERSONAL HISTORY OF OTHER VENOUS THROMBOSIS AND EMBOLISM Assessment/Plan IMP ACUTE RESPIRATORY FAILURE IMPROVING ACUTE ON CHRONIC CHF IMPROVING ESRD ON HD VOLUME OVERLOAD SLOWLY IMPROVING RECENT PNEUMONIA COPD AFIB HYPOTHYROID ANEMIA DM H/O DVT's PLAN O2 NIPPV NEEDED INHALED BRONCHODILATORS HD PER RENAL DAILY WT F/U CHEST X-RAYS CHEST CT PENDING AC DR TURPIN Problem List - Problems (1) Acute exacerbation of congestive heart failure Code(s): I50.9 - HEART FAILURE, UNSPECIFIED Qualifiers: Heart failure type: unspecified Qualified Code(s): I50.9 - Heart failure, unspecified (2) COPD (chronic obstructive pulmonary disease) Code(s): J44.9 - CHRONIC OBSTRUCTIVE PULMONARY DISEASE, UNSPECIFIED (3) Shortness of breath Code(s): R06.02 - SHORTNESS OF BREATH (4) Acute respiratory failure Code(s): J96.00 - ACUTE RESPIRATORY FAILURE, UNSP W HYPOXIA OR HYPERCAPNIA Qualifiers: Respiratory failure complication: hypoxia Qualified Code(s): J96.01 - Acute respiratory failure with hypoxia (5) Afib Code(s): I48.91 - UNSPECIFIED ATRIAL FIBRILLATION (6) ESRD on hemodialysis Code(s): N18.6 - END STAGE RENAL DISEASE; Z99.2 - DEPENDENCE ON RENAL DIALYSIS (7) Severe obesity (BMI >= 40) Code(s): E66.01 - MORBID (SEVERE) OBESITY DUE TO EXCESS CALORIES
--- NOTE | 2019-03-03 11:11 | PN ---
Progress Note (short form) - Note Progress Note: s: no chest pain, palps, dizziness. sob today Current Medications Generic Name Dose Route Start Last Admin Trade Name Freq PRN Reason Stop Dose Admin Acetaminophen 650 mg 03/01/19 15:11 03/02/19 23:01 Tylenol - PO 650 mg Q6H PRN Administration PAIN LEVEL 1-5 Albuterol/Ipratropium 1 amp 02/28/19 00:30 03/03/19 08:42 Duoneb - NEB 1 amp RQID [facility] Administration Albuterol/Ipratropium 1 amp 02/28/19 07:01 Duoneb - NEB Q4H PRN WHEEZING Bacitracin 1 applic 02/28/19 10:00 03/03/19 09:38 Bacitracin - TP 1 applic BID [facility] Administration Buspirone HCl 5 mg 02/28/19 10:00 03/03/19 09:41 Buspar - PO 5 mg BID [facility] Administration Collagenase 1 applic 02/28/19 10:00 03/03/19 09:41 Santyl - TP Not Given DAILY [facility] Protocol Docusate Sodium 300 mg 02/28/19 22:00 03/02/19 23:02 Colace - PO Not Given HS [facility] Fludrocortisone Acetate 0.2 mg 02/28/19 10:00 03/03/19 09:40 Florinef - PO 0.2 mg DAILY [facility] Administration Hydrocortisone Acetate 25 mg 02/28/19 07:01 Anusol Hc Suppository - RC PRN PRN HEMORRHOIDS Sodium Chloride 250 mls @ 3,000 mls/hr 03/01/19 14:44 Normal Saline - IV 03/02/19 14:44 PRN PRN Hypotension during Dialysis Lactic Acid 1 applic 02/28/19 10:00 03/03/19 09:38 Lac-Hydrin 12 TP 1 applic BID [facility] Administration Levalbuterol HCl 0.31 mg 02/28/19 07:01 Xopenex IH Q8H PRN ASTHMA Levothyroxine Sodium 50 mcg 03/01/19 07:00 03/03/19 06:34 Synthroid - PO 50 mcg DAILY@0700 [facility] Administration Lidocaine/Prilocaine 1 applic 02/28/19 07:15 Emla - TP Q4H [facility] Melatonin 5 mg 02/28/19 22:00 03/02/19 23:01 Melatonin PO 5 mg HS [facility] Administration Midodrine 10 mg 02/28/19 07:01 Proamatine - PO Q8H PRN HYPOTENSION Multivit/Ca Carb/B Cmplx/FA/Prenat 1 tablet 02/28/19 10:00 03/03/19 09:39 Nephro-Evert - PO 1 tablet DAILY [facility] Administration Non-Formulary Medication 237 ml 02/28/19 07:01 Guaifenesin/Dextromethorphan [Robitussin Cough-Chest Dm Liq] PO PRN PRN COUGH Non-Formulary Medication 454 gm 02/28/19 10:00 Zinc Oxide 20% Topical Oint TD BID [facility] Nystatin 1 applic 02/28/19 10:00 03/03/19 09:38 Mycostatin Ointment - TP 1 applic BID [facility] Administration Ondansetron HCl 4 mg 02/28/19 07:01 Zofran - PO PRN PRN NAUSEA Pantoprazole Sodium 40 mg 02/28/19 10:00 03/03/19 09:39 Protonix - PO 40 mg DAILY [facility] Administration Rivaroxaban 15 mg 02/28/19 18:00 03/02/19 18:47 Xarelto PO 15 mg DAILY@1800 [facility] Administration Senna 0 tab 02/28/19 22:00 Senna - PO HS [facility] Sertraline HCl 50 mg 02/28/19 10:00 03/03/19 09:40 Zoloft - PO 50 mg DAILY [facility] Administration Silver Sulfadiazine 1 applic 02/28/19 10:00 03/03/19 09:39 Silvadene - TP 1 applic DAILY [facility] Administration Zinc Sulfate 220 mg 02/28/19 10:00 03/03/19 09:40 Orazinc - PO 220 mg DAILY [facility] Administration Vital Signs Period Temp Pulse Resp BP Sys/Jhaveri Pulse Ox Last 24 Hr 97.6 F-98.7 F 64-78 16-20 86-100/45-62 95-96 Constitutional: Yes: Well Nourished, No Distress Eyes: No: Sclera Icterus Respiratory: Yes: CTA Bilaterally, Diminished (bases), poor effort. No: Accessory Muscle Use, Wheezes Gastrointestinal: Yes: Normal Bowel Sounds. No: Distention, Hepatomegaly, Palpable Mass, Tenderness Cardiovascular: Yes: Regular Rate and Rhythm JVD: No Carotid Bruit: No PMI: Non-Displaced Heart Sounds: Yes: S1, S2. No: Gallop Murmur: No: Systolic Murmur, Diastolic Murmur Extremities: No: Cold, Cyanosis Edema: No Peripheral Pulses: 2+ Left Carotid, 2+ Right Carotid, 2+ Left Doralis Pedis, 2+ Right Dorsalis Pedis Integumentary: No: Jaundice Neurological: Yes: Alert. No: Seizure Psychiatric: No: Agitated CBC, BMP 03/02/19 09:45 03/02/19 09:45 Assessment/Plan Echo 12/01: nl LV function, RV mod to severely dilated, RV function mod to severely reduced, mod dilated LA/RA, RVSP 40-50 mmHg, mod TR Echo 01/2019 - LV function slightly worsened, 45-50%, LA mod dilated, RV mod to severely dilated, RV function mod to severely reduced, mild MR, mild to mod TR, RA mod to severely dilated, mobile echodensity in pleural space CXR: bilat pulm/pleural changes similar to prior 02/18 ECG: AF, low qrs voltage, no path q's/ST-T--no signif change vs prior tele: afib, rate ok Acute on chronic hypoxic/hypercapneic respiratory failure, HFpEF, RV dysfunction : -trop neg x 2, ECG non-ischemic -in setting of missed HD session, likely sec to volume overload - HD per renal Afib: -bradycardia (40s-50s) 01/31--stabilized without pacing. no AVN blockers -on AC (xarelto, renally dosed)--continue h/o ? 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
[2019-03-03 11:42] VITALS: TEMP 98.2
--- NOTE | 2019-03-03 12:43 | DS ---
Physical Examination Vital Signs: Vital Signs Temperature 98.2 F 03/03/19 10:00 Pulse Rate 66 03/03/19 10:00 Respiratory Rate 18 03/03/19 10:00 Blood Pressure 91/47 L 03/03/19 10:00 O2 Sat by Pulse Oximetry (%) 95 03/03/19 09:00 Constitutional: Yes: Calm Cardiovascular: Yes: Regular Rate and Rhythm, S1, S2 Respiratory: Yes: Diminished Gastrointestinal: Yes: Normal Bowel Sounds, Soft Extremities: Yes: Erythema (of hand) Edema: Yes Edema: RUE: 1+ Neurological: Yes: Alert, Oriented Labs: CBC, BMP 03/02/19 09:45 03/02/19 09:45 Discharge Summary Reason For Visit: ACUTE ON CHRONIC CONGESTIVE HEART FAILURE Current Active Problems Acute exacerbation of congestive heart failure (Acute) Acute on chronic respiratory failure with hypercapnia (Acute) COPD (chronic obstructive pulmonary disease) (Acute) Shortness of breath (Acute) Sleep apnea (Acute) Hospital Course: - Primary Care Physician PCP: Johnny Houston ([facility]) - Admission Chief Complaint: SOB, Missed Dialysis History of Present Illness: This is a 73 y/o woman from [facility] with a PMHx of ESRD(M,W,F), Afib (on Xarelto), CHF, COPD (2L), DVT (Xarelto), DM, Hypothyroidism, CHERISE, Endometrial Ca s/p Hysterectomy, recent admission for Acute on Chronic Resp Failure, CHF 02/19 -02/23/19. Who presents to the ED with SOB. Per the patient's daughter the patient missed her HD on Thursday. SOB acute on chronic heart failure patient admitted to telemetry got HD epogen wiht HD hypothyroid on synthroid now to go back to SNF Condition: Improved - Instructions Disposition: INTERMEDIATE FACILITY - Home Medications Comprehensive Discharge Medication List: Ambulatory Orders Acetaminophen [8Hr Muscle Aches-Pain] 650 mg PO PRN PRN 02/19/19 Ammonium Lactate Lotion [Lac-Hydrin 12] 1 applic TP BID 02/19/19 Bacitracin - [Bacitracin Topical Ointment -] 1 applic TP BID 02/19/19 Buspirone HCl [Buspar -] 5 mg PO BID 02/19/19 Collagenase Clostridium Hist. [Santyl] 1 applic TP DAILY 02/19/19 Guaifenesin/Dextromethorphan [Robitussin Cough-Chest Dm Liq] 237 ml PO PRN PRN 02/19/19 Hydrocortisone Acetate [Anusol Hc Suppository -] 25 mg RC PRN PRN 02/19/19 Ipratropium/Albuterol Sulfate [Iprat-Albut 0.5-3(2.5) mg/3 ml] 3 ml IH Q4H PRN 02/19/19 Levothyroxine [Synthroid -] 50 mcg PO DAILY 02/19/19 Lidocaine/Prilocaine Cream [Lidocaine-Prilocaine Cream -] 1 applic TP Q4H Nystatin Ointment [Mycostatin Ointment -] 1 applic TP BID 02/19/19 Ondansetron [Zofran -] 4 mg PO PRN PRN 02/19/19 Pantoprazole Sodium [Protonix] 40 mg PO DAILY 02/19/19 Rivaroxaban [Xarelto] 15 mg PO DAILY 02/19/19 Sennosides [Senna] 8.6 mg PO HS 02/19/19 Sertraline HCl [Zoloft -] 50 mg PO DAILY 02/19/19 Silver Sulfadiazine [Silvadene] 1 applic TP DAILY 02/19/19 Vitamin B Comp W-C [Nephro-Evert -] 1 tablet PO DAILY 02/19/19 Zinc Oxide 20% Topical Oint 454 gm TD BID 02/19/19 Zinc Sulfate [Orazinc -] 220 mg PO DAILY 02/19/19 Buspirone HCl [Buspar -] 5 mg PO BID tablet 02/23/19 Docusate Sodium [Colace -] 300 mg PO HS capsule 02/23/19 Fludrocortisone Acetate [Florinef -] 0.2 mg PO DAILY tablet 02/23/19 Levalbuterol HCl [Xopenex] 0.31 mg IH Q8H PRN vial.neb 02/23/19 Levothyroxine [Synthroid -] 25 mcg PO DAILY@0700 tablet 02/23/19 Melatonin 5 mg PO HS tab 02/23/19 Midodrine HCl [Proamatine -] 10 mg PO Q8H PRN tablet 02/23/19 Rivaroxaban [Xarelto] 15 mg PO DAILY@1800 tablet 02/23/19 Sertraline HCl [Zoloft -] 50 mg PO DAILY tablet 02/23/19
--- NOTE | 2019-03-03 14:29 | PN ---
Progress Note, Physician History of Present Illness: Pt seen and examined at bedside. She is awake and appears comfortable. - Current Medication List Current Medications: Active Medications Acetaminophen (Tylenol -) 650 mg PO Q6H PRN PRN Reason: PAIN LEVEL 1-5 Last Admin: 03/02/19 23:01 Dose: 650 mg Albuterol/Ipratropium (Duoneb -) 1 amp NEB RQID [facility] Last Admin: 03/03/19 13:09 Dose: 1 amp Albuterol/Ipratropium (Duoneb -) 1 amp NEB Q4H PRN PRN Reason: WHEEZING Bacitracin (Bacitracin -) 1 applic TP BID [facility] Last Admin: 03/03/19 09:38 Dose: 1 applic Buspirone HCl (Buspar -) 5 mg PO BID [facility] Last Admin: 03/03/19 09:41 Dose: 5 mg Collagenase (Santyl -) 1 applic TP DAILY [facility]; Protocol Last Admin: 03/03/19 09:41 Dose: Not Given Docusate Sodium (Colace -) 300 mg PO HS [facility] Last Admin: 03/02/19 23:02 Dose: Not Given Fludrocortisone Acetate (Florinef -) 0.2 mg PO DAILY [facility] Last Admin: 03/03/19 09:40 Dose: 0.2 mg Hydrocortisone Acetate (Anusol Hc Suppository -) 25 mg RC PRN PRN PRN Reason: HEMORRHOIDS Sodium Chloride (Normal Saline -) 250 mls @ 3,000 mls/hr IV PRN PRN PRN Reason: Hypotension during Dialysis Stop: 03/02/19 14:44 Lactic Acid (Lac-Hydrin 12) 1 applic TP BID [facility] Last Admin: 03/03/19 09:38 Dose: 1 applic Levalbuterol HCl (Xopenex) 0.31 mg IH Q8H PRN PRN Reason: ASTHMA Levothyroxine Sodium (Synthroid -) 50 mcg PO DAILY@0700 [facility] Last Admin: 03/03/19 06:34 Dose: 50 mcg Lidocaine/Prilocaine (Emla -) 1 applic TP Q4H [facility] Melatonin (Melatonin) 5 mg PO HS [facility] Last Admin: 03/02/19 23:01 Dose: 5 mg Midodrine (Proamatine -) 10 mg PO Q8H PRN PRN Reason: HYPOTENSION Multivit/Ca Carb/B Cmplx/FA/Prenat (Nephro-Evert -) 1 tablet PO DAILY [facility] Last Admin: 03/03/19 09:39 Dose: 1 tablet Non-Formulary Medication (Guaifenesin/Dextromethorphan [Robitussin Cough-Chest Dm Liq]) 237 ml PO PRN PRN PRN Reason: COUGH Non-Formulary Medication (Zinc Oxide 20% Topical Oint) 454 gm TD BID [facility] Nystatin (Mycostatin Ointment -) 1 applic TP BID [facility] Last Admin: 03/03/19 09:38 Dose: 1 applic Ondansetron HCl (Zofran -) 4 mg PO PRN PRN PRN Reason: NAUSEA Pantoprazole Sodium (Protonix -) 40 mg PO DAILY [facility] Last Admin: 03/03/19 09:39 Dose: 40 mg Rivaroxaban (Xarelto) 15 mg PO DAILY@1800 [facility] Last Admin: 03/02/19 18:47 Dose: 15 mg Senna (Senna -) 0 tab PO HS [facility] Sertraline HCl (Zoloft -) 50 mg PO DAILY [facility] Last Admin: 03/03/19 09:40 Dose: 50 mg Silver Sulfadiazine (Silvadene -) 1 applic TP DAILY [facility] Last Admin: 03/03/19 09:39 Dose: 1 applic Zinc Sulfate (Orazinc -) 220 mg PO DAILY [facility] Last Admin: 03/03/19 09:40 Dose: 220 mg - Objective Vital Signs: Vital Signs Temperature 98.2 F 03/03/19 10:00 Pulse Rate 66 03/03/19 10:00 Respiratory Rate 18 03/03/19 10:00 Blood Pressure 91/47 L 03/03/19 10:00 O2 Sat by Pulse Oximetry (%) 95 03/03/19 09:00 Constitutional: Yes: Calm Eyes: Yes: Conjunctiva Clear HENT: Yes: Atraumatic Neck: Yes: Supple Cardiovascular: Yes: S1, S2 Respiratory: Yes: On Nasal O2 Gastrointestinal: Yes: Soft Genitourinary: Yes: Incontinence Musculoskeletal: Yes: Muscle Weakness Edema: Yes Edema: LUE: Trace, RUE: Trace Integumentary: Yes: Skin Tear Neurological: Yes: Oriented Labs: CBC, BMP 03/02/19 09:45 03/02/19 09:45 INR, PTT INR 1.79 (0.83-1.09) H 02/28/19 01:30 Problem List - Problems (1) Acute exacerbation of congestive heart failure Code(s): I50.9 - HEART FAILURE, UNSPECIFIED Qualifiers: Heart failure type: unspecified Qualified Code(s): I50.9 - Heart failure, unspecified (2) Acute on chronic respiratory failure with hypercapnia Code(s): J96.22 - ACUTE AND CHRONIC RESPIRATORY FAILURE WITH HYPERCAPNIA (3) COPD (chronic obstructive pulmonary disease) Code(s): J44.9 - CHRONIC OBSTRUCTIVE PULMONARY DISEASE, UNSPECIFIED (4) Shortness of breath Code(s): R06.02 - SHORTNESS OF BREATH (5) Afib Code(s): I48.91 - UNSPECIFIED ATRIAL FIBRILLATION (6) ESRD on hemodialysis Code(s): N18.6 - END STAGE RENAL DISEASE; Z99.2 - DEPENDENCE ON RENAL DIALYSIS Assessment/Plan Current Medications Generic Name Dose Route Start Last Admin Trade Name Freq PRN Reason Stop Dose Admin Acetaminophen 650 mg 03/01/19 15:11 03/02/19 23:01 Tylenol - PO 650 mg Q6H PRN Administration PAIN LEVEL 1-5 Albuterol/Ipratropium 1 amp 02/28/19 00:30 03/03/19 13:09 Duoneb - NEB 1 amp RQID NAHEED Administration Albuterol/Ipratropium 1 amp 02/28/19 07:01 Duoneb - NEB Q4H PRN WHEEZING Bacitracin 1 applic 02/28/19 10:00 03/03/19 09:38 Bacitracin - TP 1 applic BID NAHEED Administration Buspirone HCl 5 mg 02/28/19 10:00 03/03/19 09:41 Buspar - PO 5 mg BID NAHEED Administration Collagenase 1 applic 02/28/19 10:00 03/03/19 09:41 Santyl - TP Not Given DAILY NAHEED Protocol Docusate Sodium 300 mg 02/28/19 22:00 03/02/19 23:02 Colace - PO Not Given HS NAHEED Fludrocortisone Acetate 0.2 mg 02/28/19 10:00 03/03/19 09:40 Florinef - PO 0.2 mg DAILY NAHEED Administration Hydrocortisone Acetate 25 mg 02/28/19 07:01 Anusol Hc Suppository - RC PRN PRN HEMORRHOIDS Sodium Chloride 250 mls @ 3,000 mls/hr 03/01/19 14:44 Normal Saline - IV 03/02/19 14:44 PRN PRN Hypotension during Dialysis Lactic Acid 1 applic 02/28/19 10:00 03/03/19 09:38 Lac-Hydrin 12 TP 1 applic BID NAHEED Administration Levalbuterol HCl 0.31 mg 02/28/19 07:01 Xopenex IH Q8H PRN ASTHMA Levothyroxine Sodium 50 mcg 03/01/19 07:00 03/03/19 06:34 Synthroid - PO 50 mcg DAILY@0700 NAHEED Administration Lidocaine/Prilocaine 1 applic 02/28/19 07:15 Emla - TP Q4H NAHEED Melatonin 5 mg 02/28/19 22:00 03/02/19 23:01 Melatonin PO 5 mg HS NAHEED Administration Midodrine 10 mg 02/28/19 07:01 Proamatine - PO Q8H PRN HYPOTENSION Multivit/Ca Carb/B Cmplx/FA/Prenat 1 tablet 02/28/19 10:00 03/03/19 09:39 Nephro-Evert - PO 1 tablet DAILY NAHEED Administration Non-Formulary Medication 237 ml 02/28/19 07:01 Guaifenesin/Dextromethorphan [Robitussin Cough-Chest Dm Liq] PO PRN PRN COUGH Non-Formulary Medication 454 gm 02/28/19 10:00 Zinc Oxide 20% Topical Oint TD BID NAHEED Nystatin 1 applic 02/28/19 10:00 03/03/19 09:38 Mycostatin Ointment - TP 1 applic BID NAHEED Administration Ondansetron HCl 4 mg 02/28/19 07:01 Zofran - PO PRN PRN NAUSEA Pantoprazole Sodium 40 mg 02/28/19 10:00 03/03/19 09:39 Protonix - PO 40 mg DAILY NAHEED Administration Rivaroxaban 15 mg 02/28/19 18:00 03/02/19 18:47 Xarelto PO 15 mg DAILY@1800 NAHEED Administration Senna 0 tab 02/28/19 22:00 Senna - PO HS NAHEED Sertraline HCl 50 mg 02/28/19 10:00 03/03/19 09:40 Zoloft - PO 50 mg DAILY NAHEED Administration Silver Sulfadiazine 1 applic 02/28/19 10:00 03/03/19 09:39 Silvadene - TP 1 applic DAILY NAHEED Administration Zinc Sulfate 220 mg 02/28/19 10:00 03/03/19 09:40 Orazinc - PO 220 mg DAILY NAHEED Administration Impression 1. ESRD 2. shortness of breath 3. resp failure requiring bipap 4. chf 5. dvt 6. anemia 7. a-fib 8. hypothyroid 9. pleural effusion Plan - pt has HD set up as outpt - renal diet - fluid restriction - volume status improved, discussed compliance with fluid intake - HD right thigh cath, 3 k bath, 3 15 time, 400 abf
[2019-03-03 15:44] VITALS: BP 101/68; PULSE 68
== END 2019-03-03 15:59 | DRG 280 ==
LOC: JER 23:29 → JERBED 02-28 03:00 → J4W 02-28 17:37
PROVIDERS: ADMIT Family Medicine; ATTEND Family Medicine
PROC: 5A1D70Z Performance of Urinary Filtration, Intermittent, Less than 6 Hours Per Day (ICD-10-PCS; principal; 2019-02-28)
DX: I50.33 Acute on chronic diastolic (congestive) heart failure (principal); J96.22 Acute and chronic respiratory failure with hypercapnia; I21.A1 Myocardial infarction type 2; R53.2 Functional quadriplegia; N18.6 End stage renal disease; J96.21 Acute and chronic respiratory failure with hypoxia; I50.32 Chronic diastolic (congestive) heart failure; I48.91 Unspecified atrial fibrillation; E03.9 Hypothyroidism, unspecified; J44.9 Chronic obstructive pulmonary disease, unspecified; G47.33 Obstructive sleep apnea (adult) (pediatric); Z85.42 Personal history of malignant neoplasm of other parts of uterus; Z79.4 Long term (current) use of insulin; D64.9 Anemia, unspecified; Z68.32 Body mass index [BMI] 32.0-32.9, adult; I27.20 Pulmonary hypertension, unspecified; I95.9 Hypotension, unspecified; Z99.81 Dependence on supplemental oxygen; F03.90 Unspecified dementia, unspecified severity, without behavioral disturbance, psychotic disturbance, mood disturbance, and anxiety; E66.01 Morbid (severe) obesity due to excess calories
CPT/HCPCS: 36415; 71045-TC-FY; 80048; 80053; 80162; 81003; 82550; 82962; 83605; 83880; 84484; 85025; 85027; 85610; 85730; 87040; 93005; 93010; 94640; 94660; 99285-25; J0885; P9047

== ENCOUNTER 2019-03-11 13:06 | Inpatient (IN) | payer OTHER ==
[2019-03-11] MEDS ORDERED: SODIUM CHLORIDE 0.9% 1000 ML INFUS.BAG IV ONE (13:14)
[2019-03-11] MEDS ORDERED: ACETAMINOPHEN 1000 MG/100 ML VIAL (NON FORMULARY) IVPB ONE (13:25)
[2019-03-11] MEDS ORDERED: ACETAMINOPHEN INJECTION 100 ML IVPB ONE (13:38)
[2019-03-11 13:43] LABS: VENOUS PO2 < 49 mmHg (28-48)
[2019-03-11 13:44] LABS: VENOUS PC02 97.9 mmHg (38-52); VENOUS PH 7.11 (7.31-7.41)
[2019-03-11 13:46] LABS: BASO % 1.3 % (0-2.0); EOS % 1.4 % (0-4.5); HEMATOCRIT 35.9 % (32.4-45.2); HEMOGLOBIN 10.9 GM/dL (10.7-15.3); LYMPH % 21.2 % (8-40); MCH 29.5 pg (25.7-33.7); MCHC 30.4 g/dl (32.0-36.0); MEAN CELL VOLUME 96.8 fl (80-96); MEAN PLT VOLUME 9.2 fl (7.5-11.1); NEUT % 67.1 % (42.8-82.8); PLATELET COUNT 79 K/MM3 (134-434); RBC 3.71 M/mm3 (3.60-5.2); RDW 18.5 % (11.6-15.6); WHITE BLOOD COUNT 3.1 K/mm3 (4.0-10.0)
--- NOTE | 2019-03-11 14:11 | PDOC ---
History of Present Illness - General Chief Complaint: Shortness of Breath Stated Complaint: DIFFICULTY BREATHING Time Seen by Provider: 03/11/19 13:16 History Source: Patient, Care Provider, Half-Way Records Exam Limitations: No Limitations - History of Present Illness Initial Comments: Argelia Patel is a 73 yo F w a pmh of ESRD on HS M/W/F (did not receive dialysis today) Afib (on Xarelto), CHF, COPD (2L), DVT (Xarelto), DM, Hypothyroidism, CHERISE , Endometrial Ca s/p Hysterectomy, recent admission for Acute on Chronic Resp Failure, CHF 02/19-02/23/19 who presents to the [facility] er BIBEMS from [facility] bc she has been confused, altered, and has a low oxygen saturation. Patient is not able to provide any hx bc she is altered. Calling [facility]: Patient did not receive dialysis today. Nurse says when she walked into the patient's room today the patient was sleepy and lethargic. The patient was not her usual self. [facility], the nurse noticed her oxygen saturation at [facility] was down and they could not get it to rise. The patient wears a BiPap to sleep and despite wearing wearing a BiPap at the [place] they couldn't get the saturation up so they sent her to the ER. Patient's daughter Lesly Wade: [phone] - Health care proxy Called patient's daughter Lesly Wade: Patient frequently comes into hospital and needs pressers. Daughter said the patient was getting agitated yesterday when she spoke with her. The patient was getting panicky and confused yesterday. The patient has been slowly declining and sleepy as the week progressed. The patient did receive an abbreviated course of HD this past thursday - aka she received less than she usually should have. - Renal doctor: Dr. Benjamin Advanced directives: Full Code PCP: Johnny Houston Hx: [facility] resident. No current toxic habits. Past History - Past Medical History Allergies/Adverse Reactions: Allergies Allergy/AdvReac Type Severity Reaction Status Date / Time No Known Allergies Allergy Unverified 01/19/19 11:43 Home Medications: Ambulatory Orders Acetaminophen [8Hr Muscle Aches-Pain] 650 mg PO PRN PRN 02/19/19 Ammonium Lactate Lotion [Lac-Hydrin 12] 1 applic TP BID 02/19/19 Bacitracin - [Bacitracin Topical Ointment -] 1 applic TP BID 02/19/19 Buspirone HCl [Buspar -] 5 mg PO BID 02/19/19 Guaifenesin/Dextromethorphan [Robitussin Cough-Chest Dm Liq] 237 ml PO PRN PRN 02/19/19 Hydrocortisone Acetate [Anusol Hc Suppository -] 25 mg RC PRN PRN 02/19/19 Ipratropium/Albuterol Sulfate [Iprat-Albut 0.5-3(2.5) mg/3 ml] 3 ml IH Q4H PRN 02/19/19 Lidocaine/Prilocaine Cream [Lidocaine-Prilocaine Cream -] 1 applic TP Q4H Nystatin Ointment [Mycostatin Ointment -] 1 applic TP BID 02/19/19 Ondansetron [Zofran -] 4 mg PO PRN PRN 02/19/19 Pantoprazole Sodium [Protonix] 40 mg PO DAILY 02/19/19 Sennosides [Senna] 8.6 mg PO HS 02/19/19 Sertraline HCl [Zoloft -] 75 mg PO DAILY 02/19/19 Silver Sulfadiazine [Silvadene] 1 applic TP DAILY 02/19/19 Vitamin B Comp W-C [Nephro-Evert -] 1 tablet PO DAILY 02/19/19 Zinc Oxide 20% Topical Oint 454 gm TD BID 02/19/19 Zinc Sulfate [Orazinc -] 220 mg PO DAILY 02/19/19 Buspirone HCl [Buspar -] 5 mg PO BID tablet 02/23/19 Fludrocortisone Acetate [Florinef -] 0.2 mg PO DAILY tablet 02/23/19 Melatonin 5 mg PO HS tab 02/23/19 Midodrine HCl [Proamatine -] 10 mg PO Q8H PRN tablet 02/23/19 Rivaroxaban [Xarelto] 15 mg PO DAILY@1800 tablet 02/23/19 Calcitriol [Rocaltrol -] 0.75 mcg PO DAILY 03/11/19 Digoxin 125 mcg PO DAILY 03/11/19 Phenylephrine 0.25%/Starch [Anusol Suppository -] 1 each RC QID PRN 03/11/19 Vitamin B Comp W-C [Nephro-Evert -] 1 tablet PO DAILY 03/11/19 Anemia: Yes Asthma: No Cancer: Yes (endometrial ca, s/p hysterectomy) Cardiac Disorders: Yes (A-fib) CVA: No COPD: Yes (Oxygen 2l n/c) CHF: Yes DVT: Yes Dementia: No Diabetes: Yes GI Disorders: Yes (cdiff) Disorders: Yes (ESRD, HD, Rfemoral tessio - M--Thu) HTN: No Hypercholesterolemia: No Liver Disease: No Seizures: No Thyroid Disease: Yes (hypothyroidism) - Surgical History Abdominal Surgery: No Appendectomy: No Cardiac Surgery: No Cholecystectomy: No Lung Surgery: No Neurologic Surgery: No Orthopedic Surgery: Yes (spinal surgery december 2017,feb 2017 Lt arm fracture with tendon transfer) - Psycho Social/Smoking Cessation Hx Smoking History: Unknown if ever smoked Have you smoked in the past 12 months: No Hx Alcohol Use: No Drug/Substance Use Hx: No Substance Use Type: None Hx Substance Use Treatment: No Review of Systems - Review of Systems Able to Perform ROS?: No (AMS) *Physical Exam - Vital Signs Last Vital Signs Temp Pulse Resp BP Pulse Ox 61 19 82/47 L 59 L 03/11/19 13:10 03/11/19 13:10 03/11/19 13:10 03/11/19 13:10 - Physical Exam Comments: GENERAL: Patient is obese, confused, somnolent, but repeatedly states she wants her tylenol. Moderate apparent distress. HEENT: Normocephalic, atraumatic. PERRL CARDIOVASCULAR: Bradycardic rate. Normal S1, S2. Regular rhythm. PULMONARY: Decreased breath sounds diffusely. No focal crackles/rales/rhonchi. ABDOMEN: Obese. Soft, non-distended, non-tender. EXTREMITIES: Right sided dialysis catherter in place. Limited ROM in all four extremities. Grossly edematous diffusely. Anasarca. SKIN: Intertrigonous areas. multiple hematomas. Not well kept. Ulcer on right toes. NEUROLOGICAL: No focal neurological deficits. ED Treatment Course - LABORATORY CBC & Chemistry Diagram: 03/11/19 13:23 03/11/19 13:23 - ADDITIONAL ORDERS Additional order review: Laboratory Results 03/11/19 03/11/19 13:23 13:23 PT with INR Cancelled INR Cancelled VBG pH 7.11 L* POC VBG pCO2 97.9 H* POC VBG pO2 < 49 H VBG HCO3 30.0 H VBG O2 Sat ([place]) 22.1 L VBG Base Excess -1.6 03/11/19 13:23 RBC 3.71 MCV 96.8 H MCHC 30.4 L RDW 18.5 H MPV 9.2 Neutrophils % 67.1 Lymphocytes % 21.2 Monocytes % 9.0 Eosinophils % 1.4 Basophils % 1.3 Medical Decision Making - Critical Care Time Total Critical Care Time (minutes): 200 Critical Care Statement: The care of this patient involved high complexity decision making to prevent further life threatening deterioration of the patient 's condition and/or to evaluate & treat vital organ system(s) failure or risk of failure. - Medical Decision Making Argelia Patel is a 73 yo F w a pmh of ESRD on HS M/W/F (did not receive dialysis today) Afib (on Xarelto), CHF, COPD (2L), DVT (Xarelto), DM, Hypothyroidism, CHERISE , Endometrial Ca s/p Hysterectomy, recent admission for Acute on Chronic Resp Failure, CHF 02/19-02/23/19 who presents to the [facility] er BIBEMS from [facility] she has been confused, altered, and has a low oxygen saturation. Patient is not able to provide any hx bc she is altered. - Per [facility] - altered and hypoxic - Per daughter - confused for 5 days Vital Signs Temp Pulse Resp BP Pulse Ox 93.7 F L 58 L 19 82/47 L 100 03/11/19 13:15 03/11/19 14:08 03/11/19 13:10 03/11/19 13:10 03/11/19 14:08 MDM: Patient presents altered with multiple problems. Hypoxic, hypotensive, altered, missed dialysis - Patient Bradycardic and hypotensive after missing dialysis. Plan: Labs, CXR, Fluid resuscitation, supportive care, BiPap, Renal consult to arrange dialysis, Admission to hospital likely ICU CXR: Rule out sepsis Portable chest x-ray, AP semiupright Since prior chest x- ray dated 03/02/2019, there remains consolidation and likely a small left pleural effusion that may have slightly decreased since see prior exam. Evaluation of the right hemithorax with suggestion of interval better aeration of the right lower lobe. Likely persistent small right pleural effusion is present. Impression: See discussion above Renal Consult: Patient needs pressors and ICU admission. Cannot dialyse until pressure is better. Labs: CBC,CMP WBC 3.1 K/mm3 (4.0-10.0) L 03/11/19 13:23 RBC 3.71 M/mm3 (3.60-5.2) 03/11/19 13:23 Hgb 10.9 GM/dL (10.7-15.3) 03/11/19 13:23 Hct 35.9 % (32.4-45.2) D 03/11/19 13:23 MCV 96.8 fl (80-96) H 03/11/19 13:23 MCH 29.5 pg (25.7-33.7) 03/11/19 13:23 MCHC 30.4 g/dl (32.0-36.0) L 03/11/19 13:23 RDW 18.5 % (11.6-15.6) H 03/11/19 13:23 Plt Count 79 K/MM3 (134-434) L D 03/11/19 13:23 MPV 9.2 fl (7.5-11.1) 03/11/19 13:23 Absolute Neuts (auto) 2.1 K/mm3 (1.5-8.0) 03/11/19 13:23 Neutrophils % 67.1 % (42.8-82.8) 03/11/19 13:23 Lymphocytes % 21.2 % (8-40) 03/11/19 13:23 Monocytes % 9.0 % (3.8-10.2) 03/11/19 13:23 Eosinophils % 1.4 % (0-4.5) 03/11/19 13:23 Basophils % 1.3 % (0-2.0) 03/11/19 13:23 Nucleated RBC % 1 % (0-0) H 03/11/19 13:23 Sodium 137 mmol/L (136-145) 03/11/19 13:23 Potassium 4.4 mmol/L (3.5-5.1) 03/11/19 13:23 Chloride 98 mmol/L (98-107) 03/11/19 13:23 Carbon Dioxide 31 mmol/L (21-32) 03/11/19 13:23 Anion Gap 8 MMOL/L (8-16) 03/11/19 13:23 BUN 27.8 mg/dL (7-18) H 03/11/19 13:23 Creatinine 3.0 mg/dL (0.55-1.3) H 03/11/19 13:23 Est GFR (CKD-EPI)AfAm 17.39 03/11/19 13:23 Est GFR (CKD-EPI)NonAf 15.01 03/11/19 13:23 Random Glucose 69 mg/dL (74-106) L 03/11/19 13:23 Lactic Acid 1.6 mmol/L (0.4-2.0) 03/11/19 13:23 Calcium 9.4 mg/dL (8.5-10.1) 03/11/19 13:23 Total Bilirubin 0.5 mg/dL (0.2-1) 03/11/19 13:23 AST 15 U/L (15-37) 03/11/19 13:23 ALT 16 U/L (13-61) 03/11/19 13:23 Alkaline Phosphatase 140 U/L (45-117) H 03/11/19 13:23 Troponin I 0.14 ng/ml (0.00-0.05) H 03/11/19 13:23 Total Protein 7.2 g/dl (6.4-8.2) 03/11/19 13:23 Albumin 3.7 g/dl (3.4-5.0) 03/11/19 13:23 VBG: Patient is retaining - BiPap placed to help patient ventilate. Discharge - Discharge Information Problems reviewed: Yes Clinical Impression/Diagnosis: ESRD on hemodialysis, Functional quadriplegia, Severe obesity (BMI >= 40), Acute on chronic respiratory failure with hypoxia and hypercapnia, Hypoxia, Acute on chronic respiratory failure with hypercapnia Acute exacerbation of congestive heart failure Qualifiers: Heart failure type: unspecified Qualified Code(s): I50.9 - Heart failure, unspecified COPD (chronic obstructive pulmonary disease) Qualifiers: COPD type: unspecified COPD Qualified Code(s): J44.9 - Chronic obstructive pulmonary disease, unspecified Hypotension Qualifiers: Hypotension type: unspecified hypotension type Qualified Code(s): I95.9 - Hypotension, unspecified Condition: Critical - Admission Yes - Follow up/Referral - Patient Discharge Instructions - Post Discharge Activity
[2019-03-11 14:15] LABS: ALBUMIN 3.7 g/dl (3.4-5.0); BILIRUBIN,TOTAL 0.5 mg/dL (0.2-1); BLOOD UREA NITROGEN 27.8 mg/dL (7-18); CALCIUM 9.4 mg/dL (8.5-10.1); POTASSIUM 4.4 mmol/L (3.5-5.1); TOT PROT 7.2 g/dl (6.4-8.2)
[2019-03-11 14:36] LABS: INR 1.7 (0.83-1.09); PROTHROMBIN TIME (PATIENT) 20.2 SEC (9.7-13.0)
[2019-03-11 14:39] LABS: ACTIVATED PTT 44.2 SECONDS (25.2-36.5)
--- NOTE | 2019-03-11 17:51 | PDOC ---
Attending Attestation - Resident Resident Name: Rajeev Ferraro - ED Attending Attestation I have performed the following: I have examined & evaluated the patient, The case was reviewed & discussed with the resident, I agree w/resident's findings & plan, Exceptions are as noted - HPI HPI: 03/11/19 19:00 73 yo F w a pmh of ESRD on HS M/W/F (did not receive dialysis today) Afib (on Xarelto), CHF, COPD (2L), DVT (Xarelto), DM, Hypothyroidism, CHERISE, Endometrial Ca s/p Hysterectomy, recent admission for Acute on Chronic Resp Failure, CHF 02/19 -02/23/19 who presents to the [facility] from [facility] she has been confused, altered, and has a low oxygen saturation. - Physicial Exam PE: 03/11/19 19:00 Vitals: Triage Vital signs reviewed General Appearance: Morbidly obese lethargic Head: Atraumatic, Eyes: Pupils equal reactive round, extraocular movement intact Neck: Supple;No Nucal rigidity Chest Wall: Nontender Cardiac: Regular rate and rhythym, Lungs: [Poor air movement bilaterally Abdomen: Soft, non distended, normal bowel sounds, non tender to palpation Extremities: total body anasarca Skin: Warm and dry, no rashes or lesions, no rash, no petechiae Neuro: Withdraws from pain in all extremities - Critical Care Time Total Critical Care Time: 90 Critical Care Statement: The care of this patient involved high complexity decision making to prevent further life threatening deterioration of the patient 's condition and/or to evaluate & treat vital organ system(s) failure or risk of failure. - Medical Decision Making 03/11/19 19:02 73 yo F w a pmh of ESRD on HS M/W/F (did not receive dialysis today) Afib (on Xarelto), CHF, COPD (2L), DVT (Xarelto), DM, Hypothyroidism, CHERISE, Endometrial Ca s/p Hysterectomy, recent admission for Acute on Chronic Resp Failure, CHF 02/19 -02/23/19 who presents to the [facility] from [facility] she has been confused, altered, and has a low oxygen saturation. Patient well-known to hospital multiple ICU admissions given hypotension total body anasarca requiring pressors and dialysis simultaneously Currently patient is full code we'll need to address goals of care with family Patient placed on BiPAP with good improvement in oxygen saturation 4 attempts made at central venous access unable to obtain central line secondary to multiple subclavian clots Renal has been consult did A midline catheter was placed in the left brachial vein We'll admit to ICU for pressors dialysis and further management. Prognosis guarded discussed at length with family.
--- NOTE | 2019-03-11 18:24 | HP ---
CHIEF COMPLAINT: Unresponsive, hypotensive PCP: Dr. Houston from [facility] HISTORY OF PRESENT ILLNESS: 73yo F with extensive medical history well-known to this facility who presented to the ED due to being unresponsive and hypotensive. Pt's last dialysis was on Thursday where she received a half session due to labile blood pressures despite chronic midodrine use. Pt today was attended to on daily rounds at [facility] and was noted to be hypotensive, unresponsive, and altered from baseline. At [facility] BiPap mask was trialed, however she did not return to her baseline and she was sent here for further investigation. Upon arrival, pt was found to have minimal mentation and was hypotensive with bradycardia. Pt's mental status improved while on NIPPV and her BP marginally increased to 70's/50 's. Upon my examination pt is persevarating, however looks more alert and remains at her previous baseline from when I saw her last. Pt's BP remains low even for her baseline. Otherwise pt's HPI limited due to her cognitive state. Central lines were attempted by ED physicians, however remained unsuccessful due to the guidewire not being able to be passed to appropriate length. PAST MEDICAL HISTORY: ESRD (M/W/F), Orthostatic Hypotension, CHF, DM, hypothyroid, COPD, Afib (on Xarelto), DVTs, Pulmonary Edema and multiple admissions for PNA (including intubation), R IJ, subclavian and partial SVC thrombosis PAST SURGICAL HISTORY: Unable to obtain Social History: Unable to obtain Allergies No Known Allergies Allergy (Unverified 01/19/19 11:43) HOME MEDICATIONS: Home Medications Medication Instructions Recorded Acetaminophen [8Hr Muscle 650 mg PO PRN PRN 02/19/19 Aches-Pain] Ammonium Lactate Lotion 1 applic TP BID 02/19/19 [Lac-Hydrin 12] Bacitracin - [Bacitracin Topical 1 applic TP BID 02/19/19 Ointment -] Buspirone HCl [Buspar -] 5 mg PO BID 02/19/19 Guaifenesin/Dextromethorphan 237 ml PO PRN PRN 02/19/19 [Robitussin Cough-Chest Dm Liq] Hydrocortisone Acetate [Anusol Hc 25 mg RC PRN PRN 02/19/19 Suppository -] Ipratropium/Albuterol Sulfate 3 ml IH Q4H PRN 02/19/19 [Iprat-Albut 0.5-3(2.5) mg/3 ml] Lidocaine/Prilocaine Cream 1 applic TP Q4H 02/19/19 [Lidocaine-Prilocaine Cream -] Nystatin Ointment [Mycostatin 1 applic TP BID 02/19/19 Ointment -] Ondansetron [Zofran -] 4 mg PO PRN PRN 02/19/19 Pantoprazole Sodium [Protonix] 40 mg PO DAILY 02/19/19 Sennosides [Senna] 8.6 mg PO HS 02/19/19 Sertraline HCl [Zoloft -] 75 mg PO DAILY 02/19/19 Silver Sulfadiazine [Silvadene] 1 applic TP DAILY 02/19/19 Vitamin B Comp W-C [Nephro-Evert -] 1 tablet PO DAILY 02/19/19 Zinc Oxide 20% Topical Oint 454 gm TD BID 02/19/19 Zinc Sulfate [Orazinc -] 220 mg PO DAILY 02/19/19 Buspirone HCl [Buspar -] 5 mg PO BID tablet 02/23/19 Fludrocortisone Acetate [Florinef 0.2 mg PO DAILY tablet 02/23/19 -] Melatonin 5 mg PO HS tab 02/23/19 Midodrine HCl [Proamatine -] 10 mg PO Q8H PRN tablet 02/23/19 Rivaroxaban [Xarelto] 15 mg PO DAILY@1800 tablet 02/23/19 Calcitriol [Rocaltrol -] 0.75 mcg PO DAILY 03/11/19 Digoxin 125 mcg PO DAILY 03/11/19 Phenylephrine 0.25%/Starch [Anusol 1 each RC QID PRN 03/11/19 Suppository -] Vitamin B Comp W-C [Nephro-Evert -] 1 tablet PO DAILY 03/11/19 REVIEW OF SYSTEMS Unable to ascertain due to clinical scenario PHYSICAL EXAMINATION Vital Signs 03/11/19 03/11/19 03/11/19 13:10 13:15 13:45 Temperature 93.7 F L Pulse Rate 61 Pulse Rate [ 86 Left Radial] Respiratory 19 14 Rate Blood Pressure 82/47 L Blood Pressure 74/47 L [Right Arm] O2 Sat by Pulse 59 L 72 L 99 Oximetry (%) 03/11/19 03/11/19 14:08 17:11 Temperature Pulse Rate 58 L Pulse Rate [ 89 Left Radial] Respiratory 17 Rate Blood Pressure Blood Pressure 83/66 L [Right Arm] O2 Sat by Pulse 100 98 Oximetry (%) GENERAL: Awake, alert, and fully oriented, in no acute distress. HEENT: nc/at, nicholas, sclera anicteric, MMM NECK: JVD + LUNGS: Rales bilaterally in anterior lobes. No wheezes, and no crackles. No accessory muscle use. HEART: RRR, normal S1 and S2 without murmur ABDOMEN: Soft, abd. wall edema, nontender, not distended, hypoactive bowel sounds, EXTREMITIES: 2+ pulses, 2+ edema on b/l upper and lower extremities with notable warm, well-perfused. No calf tenderness. No peripheral edema. NEUROLOGICAL: Moving all four extremities but otherwise limited exam. SKIN: Warm, dry,L arm notable erythema with warmth without any skin breaks appreciated. Laboratory Results 03/11/19 03/11/19 03/11/19 13:23 13:23 13:23 WBC 3.1 L RBC 3.71 Hgb 10.9 Hct 35.9 D MCV 96.8 H MCH 29.5 MCHC 30.4 L RDW 18.5 H Plt Count 79 L D MPV 9.2 Absolute Neuts (auto) 2.1 Neutrophils % 67.1 Lymphocytes % 21.2 Monocytes % 9.0 Eosinophils % 1.4 Basophils % 1.3 Nucleated RBC % 1 H PT with INR 20.20 H INR 1.70 H PTT (Actin FS) 44.2 H VBG pH POC VBG pCO2 POC VBG pO2 VBG HCO3 VBG O2 Sat (Oneyda) VBG Base Excess Sodium Potassium Chloride Carbon Dioxide Anion Gap BUN Creatinine Est GFR (CKD-EPI)AfAm Est GFR (CKD-EPI)NonAf Random Glucose Lactic Acid Calcium Total Bilirubin AST ALT Alkaline Phosphatase Troponin I 0.14 H Total Protein Albumin 03/11/19 03/11/19 03/11/19 13:23 13:23 13:23 WBC RBC Hgb Hct MCV MCH MCHC RDW Plt Count MPV Absolute Neuts (auto) Neutrophils % Lymphocytes % Monocytes % Eosinophils % Basophils % Nucleated RBC % PT with INR Cancelled INR Cancelled PTT (Actin FS) VBG pH POC VBG pCO2 POC VBG pO2 VBG HCO3 VBG O2 Sat (Oneyda) VBG Base Excess Sodium 137 Potassium 4.4 Chloride 98 Carbon Dioxide 31 Anion Gap 8 BUN 27.8 H Creatinine 3.0 H Est GFR (CKD-EPI)AfAm 17.39 Est GFR (CKD-EPI)NonAf 15.01 Random Glucose 69 L Lactic Acid 1.6 Calcium 9.4 Total Bilirubin 0.5 AST 15 ALT 16 Alkaline Phosphatase 140 H Troponin I Total Protein 7.2 Albumin 3.7 03/11/19 13:23 WBC RBC Hgb Hct MCV MCH MCHC RDW Plt Count MPV Absolute Neuts (auto) Neutrophils % Lymphocytes % Monocytes % Eosinophils % Basophils % Nucleated RBC % PT with INR INR PTT (Actin FS) VBG pH 7.11 L* POC VBG pCO2 97.9 H* POC VBG pO2 < 49 H VBG HCO3 30.0 H VBG O2 Sat (Oneyda) 22.1 L VBG Base Excess -1.6 Sodium Potassium Chloride Carbon Dioxide Anion Gap BUN Creatinine Est GFR (CKD-EPI)AfAm Est GFR (CKD-EPI)NonAf Random Glucose Lactic Acid Calcium Total Bilirubin AST ALT Alkaline Phosphatase Troponin I Total Protein Albumin ASSESSMENT/PLAN: Cognitive deficits Acute on Chronic hypercapneic respiratory distress ESRD Hypothyroidism Type 2 DM Atrial fibrillation Thrombocytopenia Leukopenia Hypoglycemia Pt seems to be at prior baseline with NIPPV --NIPPV to continue --Repeat ABG for acid-base disturbance and CO2 retention --CXR reviewed --> improved compared to previous discharge Hypoglycemia noted --> given one D50 --BGM q6h and cover ISS MAPs normally run low in patient due to comorbid conditions --Continue midodrine 10mg TID --Fludrocortisone to continue --Pt placed on Levophed; titrate down as tolerated (MAP goal 55) Atrial fib controlled at t his time --Continue BB and Xarelto Dr Molina consulted for dialysis needs --Can monitor hemodynamics tonight and if improved can dialyze tomorrow Empiric renally dosed vancomycin due to cellulitis-like rash on upper extremity Rpt TFTs given hypothyroid before (3.82 TSH) and likely restart Synthroid Dylan hugger for hypothermia Maintain aspiratoin precautions FEN: Fluids: None; avoid Electrolyte abnormalities: None Nutrition: NPO for now PPX: DVT - already on xarelto Dispo: ICu monitoring Case discussed with Dr. Womack and ICU team Tigre Aragon, DO - IM PGY-3 Visit type - Emergency Visit Emergency Visit: Yes ED Registration Date: 03/11/19 Care time: The patient presented to the Emergency Department on the above date and was hospitalized for further evaluation of their emergent condition. - New Patient This patient is new to me today: Yes Date on this admission: 03/11/19 - Critical Care Critical Care patient: Yes Total Critical Care Time (in minutes): 35 Critical Care Statement: The care of this patient involved high complexity decision making to prevent further life threatening deterioration of the patient 's condition and/or to evaluate & treat vital organ system(s) failure or risk of failure.
--- NOTE | 2019-03-11 18:28 | PN ---
Teaching Attending Note Name of Resident: Tigre Aragon ATTENDING PHYSICIAN STATEMENT I saw and evaluated the patient. I reviewed the resident's note and discussed the case with the resident. I agree with the resident's findings and plan as documented with exceptions below. SUBJECTIVE: 73 yof with PMhx of PMHx of ESRD(M,W,F) with right femoral HD, Afib (on Xarelto) , CHF, COPD (2L), DVT (Xarelto), DM, Hypothyroidism, CHERISE, Endometrial Ca s/p Hysterectomy, recent admission for Acute on Chronic Resp Failure, CHF 02/19-, prior admissions with hypotension/AMS/Hypoxic/hypercapneic respiratory failure requiring pressors/intubation, last HD on Thursday, brought from NH with lethargy, low oxygen saturations. NH tried Bipap with no improvement, patient was sent to ED. Patient was noted hypothermic, Hypotensive SBP 70s-80s and hypoxic/hypercarbic in the ED. Currently on bipap, mentating, incomprehensible responses. Unable to assess fro full ROS. OBJECTIVE: Vital Signs Period Temp Pulse Resp BP Sys/Jhaveri Pulse Ox Last 24 Hr 93.7 F 58-89 14-19 74-83/47-66 59-100 Intake & Output 03/08/19 03/09/19 03/10/19 03/11/19 23:59 23:59 23:59 23:59 Weight 179 lb 12.8 oz GENERAL: Awake, responsive on Bipap HEAD: atraumatic, normocephalic EYES: EOMI, PERRL EARS, NOSE, THROAT: Ears normal, nares patent, oropharynx clear without exudates. Moist mucous membranes. NECK: soft, supple, JVD visulization limited LUNGS: scattered rhonchi, on bipap, limited exam HEART: Regular rate and rhythm, normal S1 and S2 ABDOMEN: Soft, obese, NT, pos bowel sounds MUSCULOSKELETAL:limited exam, no gross deformity or limitation of movements noted UPPER EXTREMITIES: ansarca with multiple ecchymotic areas, RUE swelling >LUE LOWER EXTREMITIES: 2+ lower extremity pitting edema NEUROLOGICAL: opens, voice muffled through the bipap, moves extremities, further exam limted PSYCHIATRIC: Mildly agitated, awake, responsive SKIN: Warm, dry, normal turgor, no rashes or lesions noted, normal capillary refill. Home Medications Medication Instructions Recorded Acetaminophen [8Hr Muscle 650 mg PO PRN PRN 02/19/19 Aches-Pain] Ammonium Lactate Lotion 1 applic TP BID 02/19/19 [Lac-Hydrin 12] Bacitracin - [Bacitracin Topical 1 applic TP BID 02/19/19 Ointment -] Buspirone HCl [Buspar -] 5 mg PO BID 02/19/19 Guaifenesin/Dextromethorphan 237 ml PO PRN PRN 02/19/19 [Robitussin Cough-Chest Dm Liq] Hydrocortisone Acetate [Anusol Hc 25 mg RC PRN PRN 02/19/19 Suppository -] Ipratropium/Albuterol Sulfate 3 ml IH Q4H PRN 02/19/19 [Iprat-Albut 0.5-3(2.5) mg/3 ml] Lidocaine/Prilocaine Cream 1 applic TP Q4H 02/19/19 [Lidocaine-Prilocaine Cream -] Nystatin Ointment [Mycostatin 1 applic TP BID 02/19/19 Ointment -] Ondansetron [Zofran -] 4 mg PO PRN PRN 02/19/19 Pantoprazole Sodium [Protonix] 40 mg PO DAILY 02/19/19 Sennosides [Senna] 8.6 mg PO HS 02/19/19 Sertraline HCl [Zoloft -] 75 mg PO DAILY 02/19/19 Silver Sulfadiazine [Silvadene] 1 applic TP DAILY 02/19/19 Vitamin B Comp W-C [Nephro-Evert -] 1 tablet PO DAILY 02/19/19 Zinc Oxide 20% Topical Oint 454 gm TD BID 02/19/19 Zinc Sulfate [Orazinc -] 220 mg PO DAILY 02/19/19 Buspirone HCl [Buspar -] 5 mg PO BID tablet 02/23/19 Fludrocortisone Acetate [Florinef 0.2 mg PO DAILY tablet 02/23/19 -] Melatonin 5 mg PO HS tab 02/23/19 Midodrine HCl [Proamatine -] 10 mg PO Q8H PRN tablet 02/23/19 Rivaroxaban [Xarelto] 15 mg PO DAILY@1800 tablet 02/23/19 Calcitriol [Rocaltrol -] 0.75 mcg PO DAILY 03/11/19 Digoxin 125 mcg PO DAILY 03/11/19 Phenylephrine 0.25%/Starch [Anusol 1 each RC QID PRN 03/11/19 Suppository -] Vitamin B Comp W-C [Nephro-Evert -] 1 tablet PO DAILY 03/11/19 Active Medications Chlorhexidine Gluconate (Hibiclens For Decolonization -) 1 applic TP HS NAHEED Norepinephrine Bitartrate 8, (000 mcg/ Dextrose) 500 mls @ 9.17 mls/hr IV ASDIR NAHEED; Protocol Mupirocin (Bactroban Ointment (For Decolonization) -) 1 applic NS BID NAHEED Stop: 03/16/19 21:59 Laboratory Results - last 24 hr 03/11/19 03/11/19 03/11/19 13:23 13:23 13:23 WBC 3.1 L RBC 3.71 Hgb 10.9 Hct 35.9 D MCV 96.8 H MCH 29.5 MCHC 30.4 L RDW 18.5 H Plt Count 79 L D MPV 9.2 Absolute Neuts (auto) 2.1 Neutrophils % 67.1 Lymphocytes % 21.2 Monocytes % 9.0 Eosinophils % 1.4 Basophils % 1.3 Nucleated RBC % 1 H PT with INR 20.20 H INR 1.70 H PTT (Actin FS) 44.2 H VBG pH POC VBG pCO2 POC VBG pO2 VBG HCO3 VBG O2 Sat (Oneyda) VBG Base Excess Sodium Potassium Chloride Carbon Dioxide Anion Gap BUN Creatinine Est GFR (CKD-EPI)AfAm Est GFR (CKD-EPI)NonAf Random Glucose Lactic Acid Calcium Total Bilirubin AST ALT Alkaline Phosphatase Troponin I 0.14 H Total Protein Albumin 03/11/19 03/11/19 03/11/19 13:23 13:23 13:23 WBC RBC Hgb Hct MCV MCH MCHC RDW Plt Count MPV Absolute Neuts (auto) Neutrophils % Lymphocytes % Monocytes % Eosinophils % Basophils % Nucleated RBC % PT with INR Cancelled INR Cancelled PTT (Actin FS) VBG pH POC VBG pCO2 POC VBG pO2 VBG HCO3 VBG O2 Sat (Oneyda) VBG Base Excess Sodium 137 Potassium 4.4 Chloride 98 Carbon Dioxide 31 Anion Gap 8 BUN 27.8 H Creatinine 3.0 H Est GFR (CKD-EPI)AfAm 17.39 Est GFR (CKD-EPI)NonAf 15.01 Random Glucose 69 L Lactic Acid 1.6 Calcium 9.4 Total Bilirubin 0.5 AST 15 ALT 16 Alkaline Phosphatase 140 H Troponin I Total Protein 7.2 Albumin 3.7 03/11/19 13:23 WBC RBC Hgb Hct MCV MCH MCHC RDW Plt Count MPV Absolute Neuts (auto) Neutrophils % Lymphocytes % Monocytes % Eosinophils % Basophils % Nucleated RBC % PT with INR INR PTT (Actin FS) VBG pH 7.11 L* POC VBG pCO2 97.9 H* POC VBG pO2 < 49 H VBG HCO3 30.0 H VBG O2 Sat (Oneyda) 22.1 L VBG Base Excess -1.6 Sodium Potassium Chloride Carbon Dioxide Anion Gap BUN Creatinine Est GFR (CKD-EPI)AfAm Est GFR (CKD-EPI)NonAf Random Glucose Lactic Acid Calcium Total Bilirubin AST ALT Alkaline Phosphatase Troponin I Total Protein Albumin CXR results and images reviewed ASSESSMENT AND PLAN: 73 yof with PMhx of PMHx of ESRD(M,W,F) with right femoral HD, Afib (on Xarelto) , CHF, COPD (2L), DVT (Xarelto), DM, Hypothyroidism, CHERISE, Endometrial Ca s/p Hysterectomy, recent admission for Acute on Chronic Resp Failure, CHF 02/19-, prior admissions with hypotension/AMS/Hypoxic/hypercapneic respiratory failure requiring pressors/intubation, last HD on Thursday admitted with AMS/ lethagy, respi failure and shock. -Acute hypoxic/hypercarbic respiratory failure -Shock, suspect cardiogenic from volume overload, r/o sepsis, r/o ACS (less likely) in the background of low baseline BP -Acute on chronic diastolic heart failure exacerbation -elevated troponin, suspect demand mediated from above, r/o ACS -AMS, suspect multifactorial from above, +/- hypoglycemia -ESRD on HD via right femoral cath -Chronic hypotension on midodrine -Afib on xarelto -h/o DVT on xarelto -NIDDM -Hypothyroidism -CHERISE -h/o endometrial Ca s/p hysterectomy Plan: Bipap, ABG, low threshold for intubation. Mentating well currently. Pressors to titrate MAP >65. Gutierrez culture, Emperic zosyn/vancomycin. HD per renal. Bare hugger. D50 x 1, BGM. DVTPPX xarelto Admit to ICU Care co-ordinated with ICU and ED Total critical care time spent 55 min. Critical Care Total Critical Care Time (in minutes): 55 Critical Care Statement: The care of this patient involved high complexity decision making to prevent further life threatening deterioration of the patient 's condition and/or to evaluate & treat vital organ system(s) failure or risk of failure.
[2019-03-11] MEDS ORDERED: NOREPINEPHRINE BITARTRATE 8,000 MCG in DEXTROSE 5%-WATER - 492 ML IV SCH (18:30)
[2019-03-11] MEDS ORDERED: DEXTROSE 50%-WATER - 25 GM/50 ML VIAL IVPUSH ONE (18:36)
--- NOTE | 2019-03-11 18:43 | CONSULT ---
Consultation: REQUESTING PROVIDER: CONSULT REQUEST: We have been asked to medically evaluate this patient for ICU HISTORY OF PRESENT ILLNESS: 73 yo F w/ PMHx of ESRD, Orthostatic Hypotension, HFrEF, DM, hypothyroidism, COPD, Afib (on Xarelto), DVTs, and multiple admissions for PNA (including intubation) who was recently admitted for respiratory failure presented to the ED from [facility] for altered mental status and low oxygen saturation despite bipap. While in the ED, pt was saturating well on BIPAP and was seen at her baseline mental status. VBG in the ED shows acute hypercapneic respiratory failure. pt was consistently hypotensive while in the ED and a R midline was placed to initiate Levo. Additionally, pt was unable to complete dialysis on Thursday and missed dialysis today. REVIEW OF SYSTEMS: unable to obtain as pt is altered. PHYSICAL EXAMINATION Vital Signs - 24 hr 03/11/19 03/11/19 03/11/19 13:10 13:15 13:45 Temperature 93.7 F L Pulse Rate 61 Pulse Rate [ 86 Left Radial] Respiratory 19 14 Rate Blood Pressure 82/47 L Blood Pressure 74/47 L [Right Arm] O2 Sat by Pulse 59 L 72 L 99 Oximetry (%) 03/11/19 03/11/19 14:08 17:11 Temperature Pulse Rate 58 L Pulse Rate [ 89 Left Radial] Respiratory 17 Rate Blood Pressure Blood Pressure 83/66 L [Right Arm] O2 Sat by Pulse 100 98 Oximetry (%) GENERAL: Awake, alert, on Bipap. pt appears anxious HEAD: Normal with no signs of trauma. EYES: Pupils equal, round and reactive to light, extraocular movements intact LUNGS: Breath sounds equal, b/l rhonchi and crackles. on bipap HEART: Regular rate and rhythm, normal S1 and S2 ABDOMEN: Soft, nontender, not distended, normoactive bowel sounds,pt has epigastric reducible hernia UPPER EXTREMITIES: 2+ pulses, warm, well-perfused. arms are edematous and erythematous. LOWER EXTREMITIES: 2+ pulses, warm, well-perfused. No calf tenderness. lower calf erythema Laboratory Last Values WBC 3.1 K/mm3 (4.0-10.0) L 03/11/19 13:23 RBC 3.71 M/mm3 (3.60-5.2) 03/11/19 13:23 Hgb 10.9 GM/dL (10.7-15.3) 03/11/19 13:23 Hct 35.9 % (32.4-45.2) D 03/11/19 13:23 MCV 96.8 fl (80-96) H 03/11/19 13:23 MCH 29.5 pg (25.7-33.7) 03/11/19 13:23 MCHC 30.4 g/dl (32.0-36.0) L 03/11/19 13:23 RDW 18.5 % (11.6-15.6) H 03/11/19 13:23 Plt Count 79 K/MM3 (134-434) L D 03/11/19 13:23 MPV 9.2 fl (7.5-11.1) 03/11/19 13:23 Absolute Neuts (auto) 2.1 K/mm3 (1.5-8.0) 03/11/19 13:23 Neutrophils % 67.1 % (42.8-82.8) 03/11/19 13:23 Lymphocytes % 21.2 % (8-40) 03/11/19 13:23 Monocytes % 9.0 % (3.8-10.2) 03/11/19 13:23 Eosinophils % 1.4 % (0-4.5) 03/11/19 13:23 Basophils % 1.3 % (0-2.0) 03/11/19 13:23 Nucleated RBC % 1 % (0-0) H 03/11/19 13:23 PT with INR 20.20 SEC (9.7-13.0) H 03/11/19 13:23 INR 1.70 (0.83-1.09) H 03/11/19 13:23 PTT (Actin FS) 44.2 SECONDS (25.2-36.5) H 03/11/19 13:23 VBG pH 7.11 (7.31-7.41) L* 03/11/19 13:23 POC VBG pCO2 97.9 mmHg (38-52) H* 03/11/19 13:23 POC VBG pO2 < 49 mmHg (28-48) H 03/11/19 13:23 VBG HCO3 30.0 mmol/L (23-29) H 03/11/19 13:23 VBG O2 Sat (Oneyda) 22.1 % (70-80) L 03/11/19 13:23 VBG Base Excess -1.6 meq/l (-2-2) 03/11/19 13:23 Sodium 137 mmol/L (136-145) 03/11/19 13:23 Potassium 4.4 mmol/L (3.5-5.1) 03/11/19 13:23 Chloride 98 mmol/L (98-107) 03/11/19 13:23 Carbon Dioxide 31 mmol/L (21-32) 03/11/19 13:23 Anion Gap 8 MMOL/L (8-16) 03/11/19 13:23 BUN 27.8 mg/dL (7-18) H 03/11/19 13:23 Creatinine 3.0 mg/dL (0.55-1.3) H 03/11/19 13:23 Est GFR (CKD-EPI)AfAm 17.39 03/11/19 13:23 Est GFR (CKD-EPI)NonAf 15.01 03/11/19 13:23 Random Glucose 69 mg/dL (74-106) L 03/11/19 13:23 Lactic Acid 1.6 mmol/L (0.4-2.0) 03/11/19 13:23 Calcium 9.4 mg/dL (8.5-10.1) 03/11/19 13:23 Total Bilirubin 0.5 mg/dL (0.2-1) 03/11/19 13:23 AST 15 U/L (15-37) 03/11/19 13:23 ALT 16 U/L (13-61) 03/11/19 13:23 Alkaline Phosphatase 140 U/L (45-117) H 03/11/19 13:23 Troponin I 0.14 ng/ml (0.00-0.05) H 03/11/19 13:23 Total Protein 7.2 g/dl (6.4-8.2) 03/11/19 13:23 Albumin 3.7 g/dl (3.4-5.0) 03/11/19 13:23 Current Medications Chlorhexidine Gluconate (Hibiclens For Decolonization -) 1 applic TP HS NAHEED Norepinephrine Bitartrate 8, (000 mcg/ Dextrose) 500 mls @ 9.17 mls/hr IV ASDIR NAHEED; Protocol Mupirocin (Bactroban Ointment (For Decolonization) -) 1 applic NS BID NAHEED Stop: 03/16/19 21:59 ASSESSMENT/PLAN: 73 yo F w/ PMHx of ESRD, Orthostatic Hypotension, HFrEF, DM, hypothyroidism, COPD, Afib (on Xarelto), DVTs, and multiple admissions for PNA (including intubation) is admitted to ICU for Acute hypercapneic respiratory failure. Lines: L midline ( 03/11) - Powerglide pro midline catheter: -18 G ( 1.35mm) x 3.1 Catheter; 21 gauge ( 0.8mm) needle; 0.018 in OD nitinol guidewire with straight tip Neuro: Acute toxic metabolic encephalopathy; dementia -resolving -pt is awake and alert -pt is at baseline Cardio: hypotensive ( pt chronically on midodrine) possibly sepsis vs chronic etiology; HFrEF, Afib -pt MAPs typically low, as seen during prior admission -will avoid IVF as per nephro -will continue tele monitoring -will assess for possible vasopressors as needed to maintain adequate MAP -c/w Xarelto for Afib -trop 0.14, will rpt . may be 2/2 hypoxic event Pulm: Acute on Chronic hypercapneic COPD - on BIPAP saturating well -awaiting ABG -maintain spO2 > 88% Nephro: ESRD on dialysis - Nephrology (Dr. Molina) recs appreciated -pt not stable for dialysis today, possible dialysis tomorrow ( HD right thigh cath, 3 k bath, 3 15 time, 300 abf) as per nephro recs -c/w midodrine to maintain BP ID: possible sepsis -leukopenia, hypothermia -pt on kevin hugger -de la rosa culture - hx of cdiff, cautious approach to continuing antibiotics -rpt CXR -empiric vanc, will get random vanc level for AM Endo: hypothyroidism, DM -will rpt TFTs, consider restarting home synthroid -c/w ISS, BGM Heme: Thrombocytopenia - possibly 2/2 sepsis -will continue to monitor F/E/N -no standing fluids -monitor lytes -NPO Code Status: Full code Prophylaxis: Xarelto - Dispo: We will continue to follow the patient. Thank you for this consultative opportunity. Visit type - Emergency Visit Emergency Visit: Yes ED Registration Date: 03/11/19 Care time: The patient presented to the Emergency Department on the above date and was hospitalized for further evaluation of their emergent condition. - New Patient This patient is new to me today: Yes Date on this admission: 03/12/19 - Critical Care Critical Care patient: Yes Total Critical Care Time (in minutes): 36 Critical Care Statement: The care of this patient involved high complexity decision making to prevent further life threatening deterioration of the patient 's condition and/or to evaluate & treat vital organ system(s) failure or risk of failure. ATTENDING PHYSICIAN STATEMENT I saw and evaluated the patient. I reviewed the resident's note and discussed the case with the resident. I agree with the resident's findings and plan as documented. SUBJECTIVE: OBJECTIVE: ASSESSMENT AND PLAN:
--- NOTE | 2019-03-11 18:43 | CONSULT ---
Consult Consult Specialty:: Nephrology Reason for Consultation:: ESRD - History of Present Illness Chief Complaint: sent in for hypotension History of Present Illness: Pt is a 73 year old female with pmhx of esrd on HD MWF, chf, copd, dm, dvt, and hypothyroidims who was sent in from rehab for hypotension. She did not complete her HD on Thursday and she was unable to get HD today. She remains hypotensive. ER is having a difficult time placing access as she has poor vasculature. She is awake and her mental status is at baseline. - History Source History Provided By: Medical Record - Past Medical History Cardio/Vascular: Yes: AFIB, CHF, Deep Vein Thrombosis Pulmonary: Yes: Bronchitis, Pneumonia, Previously Intubated, Pulmonary Embolus, Sleep Apnea Gastrointestinal: Yes: GERD Renal/: Yes: Renal Failure, Hemodialysis Psych: Yes: Depression Endocrine: Yes: Diabetes Mellitus, Hypothyroidism - Alcohol/Substance Use Hx Alcohol Use: No History of Substance Use: reports: None - Smoking History Smoking history: Unknown if ever smoked Have you smoked in the past 12 months: No - Social History ADL: Support Services History of Recent Travel: No Home Medications - Allergies Allergies/Adverse Reactions: Allergies Allergy/AdvReac Type Severity Reaction Status Date / Time No Known Allergies Allergy Unverified 01/19/19 11:43 - Home Medications Home Medications: Ambulatory Orders Acetaminophen [8Hr Muscle Aches-Pain] 650 mg PO PRN PRN 02/19/19 Ammonium Lactate Lotion [Lac-Hydrin 12] 1 applic TP BID 02/19/19 Bacitracin - [Bacitracin Topical Ointment -] 1 applic TP BID 02/19/19 Buspirone HCl [Buspar -] 5 mg PO BID 02/19/19 Guaifenesin/Dextromethorphan [Robitussin Cough-Chest Dm Liq] 237 ml PO PRN PRN 02/19/19 Hydrocortisone Acetate [Anusol Hc Suppository -] 25 mg RC PRN PRN 02/19/19 Ipratropium/Albuterol Sulfate [Iprat-Albut 0.5-3(2.5) mg/3 ml] 3 ml IH Q4H PRN 02/19/19 Lidocaine/Prilocaine Cream [Lidocaine-Prilocaine Cream -] 1 applic TP Q4H Nystatin Ointment [Mycostatin Ointment -] 1 applic TP BID 02/19/19 Ondansetron [Zofran -] 4 mg PO PRN PRN 02/19/19 Pantoprazole Sodium [Protonix] 40 mg PO DAILY 02/19/19 Sennosides [Senna] 8.6 mg PO HS 02/19/19 Sertraline HCl [Zoloft -] 75 mg PO DAILY 02/19/19 Silver Sulfadiazine [Silvadene] 1 applic TP DAILY 02/19/19 Vitamin B Comp W-C [Nephro-Evert -] 1 tablet PO DAILY 02/19/19 Zinc Oxide 20% Topical Oint 454 gm TD BID 02/19/19 Zinc Sulfate [Orazinc -] 220 mg PO DAILY 02/19/19 Buspirone HCl [Buspar -] 5 mg PO BID tablet 02/23/19 Fludrocortisone Acetate [Florinef -] 0.2 mg PO DAILY tablet 02/23/19 Melatonin 5 mg PO HS tab 02/23/19 Midodrine HCl [Proamatine -] 10 mg PO Q8H PRN tablet 02/23/19 Rivaroxaban [Xarelto] 15 mg PO DAILY@1800 tablet 02/23/19 Calcitriol [Rocaltrol -] 0.75 mcg PO DAILY 03/11/19 Digoxin 125 mcg PO DAILY 03/11/19 Phenylephrine 0.25%/Starch [Anusol Suppository -] 1 each RC QID PRN 03/11/19 Vitamin B Comp W-C [Nephro-Evert -] 1 tablet PO DAILY 03/11/19 Family Medical History Family History: Unable to Obtain Review of Systems - Review of Systems Constitutional: reports: Malaise Cardiovascular: reports: Shortness of Breath Gastrointestinal: reports: No Symptoms Genitourinary: reports: No Symptoms Musculoskeletal: reports: Muscle Weakness Physical Exam Vital Signs: Vital Signs Temperature 93.7 F L 03/11/19 13:15 Pulse Rate 89 03/11/19 17:11 Respiratory Rate 17 03/11/19 17:11 Blood Pressure 83/66 L 03/11/19 17:11 O2 Sat by Pulse Oximetry (%) 98 03/11/19 17:11 Constitutional: Yes: Anxious Eyes: Yes: Conjunctiva Clear HENT: Yes: Atraumatic Neck: Yes: Supple Cardiovascular: Yes: S1, S2 Respiratory: Yes: On BiPap Gastrointestinal: Yes: Soft, Abdomen, Obese Renal/: Yes: Incontinence Musculoskeletal: Yes: Muscle Weakness Edema: Yes Edema: LUE: 1+, RUE: 1+ Neurological: Yes: Oriented Psychiatric: Yes: Oriented Labs: CBC, BMP 03/11/19 13:23 03/11/19 13:23 Selected Entries 03/11/19 03/11/19 13:45 17:11 Blood Pressure 74/47 L 83/66 L [Right Arm] Laboratory Tests 03/11/19 03/11/19 13:23 13:23 WBC 3.1 L Hgb 10.9 Sodium 137 Potassium 4.4 Chloride 98 Carbon Dioxide 31 BUN 27.8 H Creatinine 3.0 H Imaging - Results Chest X-ray: Report Reviewed Assessment/Plan Current Medications Generic Name Dose Route Start Last Admin Trade Name Freq PRN Reason Stop Dose Admin Chlorhexidine Gluconate 1 applic 03/11/19 22:00 Hibiclens For Decolonization - TP HS NAHEED Norepinephrine Bitartrate 8, 500 mls @ 9.17 mls/hr 03/11/19 18:30 000 mcg/ Dextrose IV ASDIR NAHEED Protocol 0.03 MCG/KG/MIN Mupirocin 1 applic 03/11/19 22:00 Bactroban Ointment (For Decolonization) - NS 03/16/19 21:59 BID NAHEED Impression 1. ESRD 2. shortness of breath 3. resp failure requiring bipap 4. chf 5. dvt 6. anemia 7. a-fib 8. hypothyroid 9. pleural effusion 10. hypotension Plan - pt is too unstable for HD at this point secondary to hypotension - called and discussed with daughter Lesly [phone] - can give midodrine in the meantime as it may help her bp - pulse ox improved - avoid fluids - cont bipap - admit to ICU - will try to dialyze tomorrow if bp permits - discussed with ER - HD right thigh cath, 3 k bath, 3 15 time, 300 abf
[2019-03-11] MEDS ORDERED: INSULIN SLIDING SCALE (NOVOLOG) 1 VIAL SQ SCH (19:00)
[2019-03-11] MEDS ORDERED: NOREPINEPHRINE BITARTRATE 4 MG/4 ML ML IV ONE (19:17)
[2019-03-11] MEDS ORDERED: DEXTROSE 50%-WATER 25 GM/50 ML DISP.SYRIN ONE (19:17)
[2019-03-11] MEDS: INSULIN SLIDING SCALE (NOVOLOG) 1 VIAL SQ SCH (19:54)
[2019-03-11] MEDS: NOREPINEPHRINE BITARTRATE 8,000 MCG in DEXTROSE 5%-WATER - 492 ML IV SCH (21:00)
[2019-03-11] MEDS: CHLORHEXIDINE GLUCONATE 4% CLEANSER FOR DECOLONIZATION TP SCH (22:22)
[2019-03-12] MEDS: MUPIROCIN 2% TOPICAL OINTMENT FOR DECOLONIZATION NS SCH ×3 (00:03→22:57)
[2019-03-12 00:42] LABS: ARTERIAL BLD GAS O2 SATURATION 13.9 % (95-98); ARTERIAL BLOOD GAS PCO2 88.7 mmHg (35-45)
[2019-03-12 00:46] LABS: ARTERIAL BLOOD GAS PO2 < 49 mmHg (80-100); ARTERIAL BLOOD GAS pH 7.11 (7.35-7.45)
[2019-03-12 00:47] LABS: ALLENS TEST POSITIVE
[2019-03-12 02:02] LABS: ARTERIAL BLD GAS O2 SATURATION 96.1 % (95-98); ARTERIAL BLOOD GAS BASE EXCESS -2.8 meq/l (-2-2); ARTERIAL BLOOD GAS PCO2 54.5 mmHg (35-45); ARTERIAL BLOOD GAS pH 7.27 (7.35-7.45)
[2019-03-12 02:04] LABS: ALLENS TEST POSITIVE
[2019-03-12] MEDS: INSULIN SLIDING SCALE (NOVOLOG) 1 VIAL SQ SCH ×4 (02:04→19:23)
[2019-03-12] MEDS ORDERED: DEXTROSE 50%-WATER - 25 GM/50 ML VIAL IVPUSH ONE (04:41)
--- NOTE | 2019-03-12 08:36 | PN ---
Progress Note, Physician Chief Complaint: Acute on Chronic Respiratory Failure ESRD Hypotension History of Present Illness: Previous notes and events reviewed sleeping but arouseable to tactile and verbal stimuli on Bipap Levophed drip Hypotensive BP 106/68 denies chest pain, c/o SOB - Current Medication List Current Medications: Active Medications Chlorhexidine Gluconate (Hibiclens For Decolonization -) 1 applic TP HS NAHEED Last Admin: 03/11/19 22:22 Dose: 1 applic Fludrocortisone Acetate (Florinef -) 0.2 mg PO DAILY [facility] Norepinephrine Bitartrate 8, (000 mcg/ Dextrose) 500 mls @ 18.75 mls/hr IV TITR NAHEED; Protocol Last Titration: 03/12/19 05:08 Dose: 4 mcg/min, 15 mls/hr Insulin Aspart (Novolog Vial Sliding Scale -) 1 vial SQ Q6H NAHEED; Protocol Last Admin: 03/12/19 07:44 Dose: Not Given Levothyroxine Sodium (Synthroid Injection -) 25 mcg IVPUSH DAILY [facility] Midodrine (Proamatine -) 10 mg PO TID-MID NAHEED Mupirocin (Bactroban Ointment (For Decolonization) -) 1 applic NS BID NAHEED Stop: 03/16/19 21:59 Last Admin: 03/12/19 00:03 Dose: 1 applic Rivaroxaban (Xarelto) 15 mg PO DAILY@1800 NAHEED Vancomycin HCl (Vancomycin (Pre-Docked)) 1,000 mg IVPB DAILY [facility]; Protocol Vancomycin HCl (Vancomycin (Pre-Docked)) 1,000 mg IVPB DAILY [facility]; Protocol Stop: 03/12/19 10:01 - Objective Vital Signs: Vital Signs Temperature 98.6 F 03/12/19 06:00 Pulse Rate 67 03/12/19 06:00 Respiratory Rate 22 H 03/12/19 06:00 Blood Pressure 68/53 L 03/12/19 06:00 O2 Sat by Pulse Oximetry (%) 94 L 03/12/19 08:13 Constitutional: Yes: Mild Distress, Obese Eyes: Yes: Conjunctiva Clear HENT: Yes: Atraumatic Cardiovascular: Yes: Regular Rate and Rhythm Respiratory: Yes: Regular, On BiPap, Rhonchi Gastrointestinal: Yes: Normal Bowel Sounds, Soft, Abdomen, Obese Genitourinary: Yes: Joshi Present (minimal output, dark colored urine) Musculoskeletal: Yes: Muscle Weakness Extremities: Yes: WNL Edema: Yes (RUE) Neurological: Yes: Alert, Pre-Existing Deficit Psychiatric: Yes: Alert, Oriented Labs: CBC, BMP 03/11/19 13:23 03/11/19 13:23 INR, PTT INR 1.70 (0.83-1.09) H 03/11/19 13:23 Problem List - Problems (1) Acute on chronic respiratory failure with hypercapnia Assessment/Plan: -Pulm consult -Bipap (Ipap 16, Rate 18, Epap 6, O2 50%) -keep SpO2 >90% -monitor ABGs -CXR shows remains consolidation and likely small left pleural effusion that may have slightly decreased since prior exam, right hemithorax with suggestion of interval betrer aeration of RLL, likely persistent small right pleural effusion Code(s): J96.22 - ACUTE AND CHRONIC RESPIRATORY FAILURE WITH HYPERCAPNIA (2) COPD (chronic obstructive pulmonary disease) Assessment/Plan: -Pulm consult -Bipap (Ipap 16, Rate 18, Epap 6, O2 50%) -keep SpO2 >90% -monitor ABGs Code(s): J44.9 - CHRONIC OBSTRUCTIVE PULMONARY DISEASE, UNSPECIFIED Qualifiers: COPD type: unspecified COPD Qualified Code(s): J44.9 - Chronic obstructive pulmonary disease, unspecified (3) ESRD on hemodialysis Assessment/Plan: -Renal consult -HD on scheduled days -BUN/Cr 27.8/3.0 -monitor renal function Code(s): N18.6 - END STAGE RENAL DISEASE; Z99.2 - DEPENDENCE ON RENAL DIALYSIS (4) Hypotension Assessment/Plan: -Levophed drip -maintain MAP >65 -tele monitoring -trop 0.14, 0.12~Cardiology consult Code(s): I95.9 - HYPOTENSION, UNSPECIFIED Qualifiers: Hypotension type: unspecified hypotension type Qualified Code(s): I95.9 - Hypotension, unspecified (5) Afib Assessment/Plan: -Xarelto Code(s): I48.91 - UNSPECIFIED ATRIAL FIBRILLATION (6) Hypothyroid Assessment/Plan: -Levothyroxine Code(s): E03.9 - HYPOTHYROIDISM, UNSPECIFIED (7) Acute metabolic encephalopathy Assessment/Plan: -resolving, patient more awake and responsive -BC and UC pending to rule out infectious source Code(s): G93.41 - METABOLIC ENCEPHALOPATHY (8) Functional quadriplegia Assessment/Plan: -fall precaution Code(s): R53.2 - FUNCTIONAL QUADRIPLEGIA Assessment/Plan see problem list
[2019-03-12] MEDS ORDERED: PT OWN MED DRAWER 7, Y5N ONE (09:38)
[2019-03-12] MEDS: MIDODRINE HCL 5 MG TABLET PO SCH ×3 (09:41→17:19)
[2019-03-12] MEDS: FLUDROCORTISONE ACETATE 0.1 MG TABLET (FP) PO SCH (09:42)
[2019-03-12] MEDS ORDERED: VANCOMYCIN 1 GM in D5W (PRE-DOCKED) 1,000 MG/250 ML IVPB SCH (10:00)
[2019-03-12] MEDS ORDERED: PIPERACILLIN/TAZOB 3.375 GM 3.375 GM in DEXTROSE 5%-WATER - 50 ML IVPB SCH (10:00)
[2019-03-12 10:28] LABS: ARTERIAL BLD GAS O2 SATURATION 99.3 % (95-98); ARTERIAL BLOOD GAS BASE EXCESS -2.3 meq/l (-2-2); ARTERIAL BLOOD GAS PO2 147 mmHg (80-100); ARTERIAL BLOOD GAS pH 7.28 (7.35-7.45)
[2019-03-12 10:37] LABS: ALLENS TEST POSITIVE
--- NOTE | 2019-03-12 10:41 | PN ---
Teaching Attending Note Name of Resident: Hiren Liz ATTENDING PHYSICIAN STATEMENT I saw and evaluated the patient. I reviewed the resident's note and discussed the case with the resident. I agree with the resident's findings and plan as documented. SUBJECTIVE: Pt seen and examined in the ICU. Remains lethargic on BiPAP. On levophed gtt. OBJECTIVE: Vital Signs Period Temp Pulse Resp BP Sys/Jhaveri Pulse Ox Last 24 Hr 93.7 F-98.6 F 45-115 14-23 63-106/32-81 59-100 Intake & Output 03/09/19 03/10/19 03/11/19 03/12/19 23:59 23:59 23:59 23:59 Output Total 0 Balance 0 Weight 81.556 kg 80.739 kg Gen: mildly tachypneic, lethargic on BiPAP Heart: RRR Lung: scattered rhonchi Abd: soft, nontender Ext: + edema CBC, BMP 03/11/19 13:23 03/11/19 13:23 Active Medications Chlorhexidine Gluconate (Hibiclens For Decolonization -) 1 applic TP HS NAHEED Last Admin: 03/11/19 22:22 Dose: 1 applic Fludrocortisone Acetate (Florinef -) 0.2 mg PO DAILY NA[facility] Last Admin: 03/12/19 09:42 Dose: 0.2 mg Hydrocortisone Sodium Succinate (Solu-Cortef -) 100 mg IVPB Q8H [facility] Norepinephrine Bitartrate 8, (000 mcg/ Dextrose) 500 mls @ 18.75 mls/hr IV TITR [facility]; Protocol Last Titration: 03/12/19 05:08 Dose: 4 mcg/min, 15 mls/hr Piperacillin Sod/Tazobactam (Sod 3.375 gm/ Dextrose) 50 mls @ 100 mls/hr IVPB Q8H-IV [facility]; Protocol Insulin Aspart (Novolog Vial Sliding Scale -) 1 vial SQ Q6H [facility]; Protocol Last Admin: 03/12/19 07:44 Dose: Not Given Levothyroxine Sodium (Synthroid Injection -) 25 mcg IVPUSH DAILY [facility] Midodrine (Proamatine -) 10 mg PO TID-MID NAHEED Last Admin: 03/12/19 09:41 Dose: 10 mg Mupirocin (Bactroban Ointment (For Decolonization) -) 1 applic NS BID NAHEED Stop: 03/16/19 21:59 Last Admin: 03/12/19 00:03 Dose: 1 applic Rivaroxaban (Xarelto) 15 mg PO DAILY@1800 NA[facility]ED Vancomycin HCl (Vancomycin (Pre-Docked)) 1,000 mg IVPB DAILY [facility]; Protocol ASSESSMENT AND PLAN: Acute on Chronic Hypoxic and Hypercapneic Respiratory Failure r/o Pneumonia Shock - r/o Septic +Troponins likely Demand Ischemia Acute on Chronic Diastolic Heart Failure Atrial Fibrillation h/o DVT ESRD on HD COPD Hypothyroidism CHERISE h/o Endometrial Ca - broad spectrum antibiotics - f/u cultures - ID eval - titrate pressors to maintain MAP >60 - empiric stress dose steroids - O2 to keep spo2 >90% - BiPAP - monitor ABG - HD per renal - continue anticoagulation - prognosis guarded, continue discussions regarding goals of care - continue ICU monitoring critical care time spent in reviewing chart, evaluating patient and formulating plan 35 min
--- NOTE | 2019-03-12 10:58 | PN ---
Physical Exam: SUBJECTIVE: Patient seen and examined at bedside. No acute events overnight. OBJECTIVE: Vital Signs Period Temp Pulse Resp BP Sys/Jhaveri Pulse Ox Last 24 Hr 93.7 F-98.7 F 45-115 14-23 63-106/32-81 59-100 GENERAL: The patient is awake with BIPAP on satting fine. Settings: NECK: Trachea midline, full range of motion, supple. LUNGS: Breath sounds equal, clear to auscultation bilaterally, no wheezes, no crackles, no accessory muscle use. HEART: Regular rate and rhythm, S1, S2 without murmur, rub or gallop. ABDOMEN: Soft, nontender, nondistended EXTREMITIESL: mottled appearance and some cyanosis peripherally due to pressors. SKIN: ? cellulitic rash on RUE, doubt cellulitic given its lack of warmth or continuous erythema Laboratory Results - last 24 hr 03/11/19 03/11/19 03/11/19 13:23 13:23 13:23 WBC 3.1 L RBC 3.71 Hgb 10.9 Hct 35.9 D MCV 96.8 H MCH 29.5 MCHC 30.4 L RDW 18.5 H Plt Count 79 L D MPV 9.2 Absolute Neuts (auto) 2.1 Neutrophils % 67.1 Lymphocytes % 21.2 Monocytes % 9.0 Eosinophils % 1.4 Basophils % 1.3 Nucleated RBC % 1 H PT with INR 20.20 H INR 1.70 H PTT (Actin FS) 44.2 H Anticoagulation Therapy Puncture Site ABG pH ABG pCO2 at Pt Temp ABG pO2 at Pt Temp ABG HCO3 ABG O2 Sat (Measured) ABG O2 Content ABG Base Excess Pedro Test VBG pH POC VBG pCO2 POC VBG pO2 VBG HCO3 VBG O2 Sat (Oneyda) VBG Base Excess O2 Delivery Device Oxygen Flow Rate Vent Mode Vent Rate Mechanical Rate Pressure Support Vent Sodium Potassium Chloride Carbon Dioxide Anion Gap BUN Creatinine Est GFR (CKD-EPI)AfAm Est GFR (CKD-EPI)NonAf POC Glucometer Random Glucose Lactic Acid Calcium Total Bilirubin AST ALT Alkaline Phosphatase Troponin I 0.14 H Total Protein Albumin TSH Resin T3 Uptake 03/11/19 03/11/19 03/11/19 13:23 13:23 13:23 WBC RBC Hgb Hct MCV MCH MCHC RDW Plt Count MPV Absolute Neuts (auto) Neutrophils % Lymphocytes % Monocytes % Eosinophils % Basophils % Nucleated RBC % PT with INR Cancelled INR Cancelled PTT (Actin FS) Anticoagulation Therapy Puncture Site ABG pH ABG pCO2 at Pt Temp ABG pO2 at Pt Temp ABG HCO3 ABG O2 Sat (Measured) ABG O2 Content ABG Base Excess Pedro Test VBG pH POC VBG pCO2 POC VBG pO2 VBG HCO3 VBG O2 Sat (Oneyda) VBG Base Excess O2 Delivery Device Oxygen Flow Rate Vent Mode Vent Rate Mechanical Rate Pressure Support Vent Sodium 137 Potassium 4.4 Chloride 98 Carbon Dioxide 31 Anion Gap 8 BUN 27.8 H Creatinine 3.0 H Est GFR (CKD-EPI)AfAm 17.39 Est GFR (CKD-EPI)NonAf 15.01 POC Glucometer Random Glucose 69 L Lactic Acid 1.6 Calcium 9.4 Total Bilirubin 0.5 AST 15 ALT 16 Alkaline Phosphatase 140 H Troponin I Total Protein 7.2 Albumin 3.7 TSH 5.24 H Resin T3 Uptake 38.7 03/11/19 03/11/19 03/11/19 13:23 19:52 20:11 WBC RBC Hgb Hct MCV MCH MCHC RDW Plt Count MPV Absolute Neuts (auto) Neutrophils % Lymphocytes % Monocytes % Eosinophils % Basophils % Nucleated RBC % PT with INR INR PTT (Actin FS) Anticoagulation Therapy Puncture Site ABG pH ABG pCO2 at Pt Temp ABG pO2 at Pt Temp ABG HCO3 ABG O2 Sat (Measured) ABG O2 Content ABG Base Excess Pedro Test VBG pH 7.11 L* POC VBG pCO2 97.9 H* POC VBG pO2 < 49 H VBG HCO3 30.0 H VBG O2 Sat (Oneyda) 22.1 L VBG Base Excess -1.6 O2 Delivery Device Oxygen Flow Rate Vent Mode Vent Rate Mechanical Rate Pressure Support Vent Sodium Potassium Chloride Carbon Dioxide Anion Gap BUN Creatinine Est GFR (CKD-EPI)AfAm Est GFR (CKD-EPI)NonAf POC Glucometer 100 Random Glucose Lactic Acid Calcium Total Bilirubin AST ALT Alkaline Phosphatase Troponin I 0.12 H Total Protein Albumin TSH Resin T3 Uptake 03/12/19 03/12/19 03/12/19 00:28 01:45 01:50 WBC RBC Hgb Hct MCV MCH MCHC RDW Plt Count MPV Absolute Neuts (auto) Neutrophils % Lymphocytes % Monocytes % Eosinophils % Basophils % Nucleated RBC % PT with INR INR PTT (Actin FS) Anticoagulation Therapy No Result Required. Puncture Site Right radial Right radial ABG pH 7.11 L* 7.27 L ABG pCO2 at Pt Temp 88.7 H* 54.5 H ABG pO2 at Pt Temp < 49 L* 87.0 ABG HCO3 27.0 23.9 ABG O2 Sat (Measured) 13.9 L 96.1 ABG O2 Content 13.9 13.3 ABG Base Excess -4.0 L -2.8 L Pedro Test Positive Positive VBG pH POC VBG pCO2 POC VBG pO2 VBG HCO3 VBG O2 Sat (Oneyda) VBG Base Excess O2 Delivery Device Bipap Bipap Oxygen Flow Rate 50% 50% Vent Mode No Result Required. S/t Vent Rate 18 18 Mechanical Rate No Result Required. Pressure Support Vent 16/6 16/6 Sodium Potassium Chloride Carbon Dioxide Anion Gap BUN Creatinine Est GFR (CKD-EPI)AfAm Est GFR (CKD-EPI)NonAf POC Glucometer 72 Random Glucose Lactic Acid Calcium Total Bilirubin AST ALT Alkaline Phosphatase Troponin I Total Protein Albumin TSH Resin T3 Uptake 03/12/19 03/12/19 03/12/19 03:33 07:42 10:10 WBC RBC Hgb Hct MCV MCH MCHC RDW Plt Count MPV Absolute Neuts (auto) Neutrophils % Lymphocytes % Monocytes % Eosinophils % Basophils % Nucleated RBC % PT with INR INR PTT (Actin FS) Anticoagulation Therapy No Result Required. Puncture Site Right radial ABG pH 7.28 L ABG pCO2 at Pt Temp 53.0 H ABG pO2 at Pt Temp 147 H ABG HCO3 24.1 ABG O2 Sat (Measured) 99.3 H ABG O2 Content 13.8 ABG Base Excess -2.3 L Pedro Test Positive VBG pH POC VBG pCO2 POC VBG pO2 VBG HCO3 VBG O2 Sat (Oneyda) VBG Base Excess O2 Delivery Device Bipap Oxygen Flow Rate 50% Vent Mode S/t Vent Rate 18 Mechanical Rate Bipap Pressure Support Vent 16/6 Sodium Potassium Chloride Carbon Dioxide Anion Gap BUN Creatinine Est GFR (CKD-EPI)AfAm Est GFR (CKD-EPI)NonAf POC Glucometer 103 71 Random Glucose Lactic Acid Calcium Total Bilirubin AST ALT Alkaline Phosphatase Troponin I Total Protein Albumin TSH Resin T3 Uptake Active Medications Generic Name Dose Route Start Last Admin Trade Name Freq PRN Reason Stop Dose Admin Chlorhexidine Gluconate 1 applic 03/11/19 22:00 03/11/19 22:22 Hibiclens For Decolonization - TP 1 applic HS [facility] Administration Fludrocortisone Acetate 0.2 mg 03/12/19 10:00 03/12/19 09:42 Florinef - PO 0.2 mg DAILY [facility] Administration Hydrocortisone Sodium Succinate 100 mg 03/12/19 10:15 Solu-Cortef - IVPB Q8H [facility] Norepinephrine Bitartrate 8, 500 mls @ 18.75 mls/hr 03/11/19 22:15 03/12/19 05:08 000 mcg/ Dextrose IV 4 mcg/min TITR [facility] 15 mls/hr Titration Protocol 5 MCG/MIN Piperacillin Sod/Tazobactam 50 mls @ 100 mls/hr 03/12/19 11:00 Sod 2.25 gm/ Dextrose IVPB Q8H-IV [facility] Protocol Insulin Aspart 1 vial 03/11/19 19:00 03/12/19 07:44 Novolog Vial Sliding Scale - SQ Not Given Q6H [facility] Protocol Levothyroxine Sodium 25 mcg 03/12/19 10:00 Synthroid Injection - IVPUSH DAILY [facility] Midodrine 10 mg 03/12/19 10:00 03/12/19 09:41 Proamatine - PO 10 mg TID-MID [facility] Administration Mupirocin 1 applic 03/11/19 22:00 03/12/19 00:03 Bactroban Ointment (For Decolonization) - NS 03/16/19 21:59 1 applic BID [facility] Administration Rivaroxaban 15 mg 03/12/19 18:00 Xarelto PO DAILY@1800 [facility] Vancomycin HCl 1,000 mg 03/12/19 10:00 Vancomycin (Pre-Docked) IVPB DAILY [facility] Protocol ASSESSMENT/PLAN: This is a 73 yo F w/ a PMHx of ESRD, Orthostatic Hypotension, HFrEF, DM, hypothyroidism, COPD, Afib (on Xarelto), DVTs, and multiple admissions for PNA ( including intubation) is admitted to ICU for Acute hypercapneic respiratory failure. Lines: L brachial vein midline ( 03/11) Neuro: Acute toxic metabolic encephalopathy; dementia -resolving -pt is awake with BIPAP on -pt is at baseline Cardio: hypotensive ( pt chronically on midodrine) possibly sepsis vs chronic etiology; HFrEF, Afib -pt MAPs>55 typically low, as seen during prior admission -will avoid IVF as per nephro -will continue tele monitoring -on levo -c/w Xarelto for Afib -rpt trops downtrending, 2/2 demand ischemia type II LA Pulm: Acute on Chronic hypercapneic COPD -on BIPAP saturating well -rpt ABG no longer hypercapnic (53), pH 7.28. -maintain spO2 > 88% Nephro: ESRD on dialysis - Nephrology (Dr. Molina) recs appreciated -pt to have dialysis today (HD right thigh cath, 3 k bath, 3 15 time, 300 abf) as per nephro recs -c/w midodrine to maintain BP ID: possible sepsis -leukopenia, hypothermia resolved -de [place] rosa culture pending - hx of cdiff, cautious approach to continuing antibiotics -rpt CXR -empiric vanco, zosyn for ?Asp PNA renally dosed at 2.25 q8h, pending vanco level for AM Endo: hypothyroidism, DM -TSH high, restarted home synthroid -c/w ISS, BGM Heme: Thrombocytopenia - possibly 2/2 sepsis -will continue to monitor F/E/N -no standing fluids -monitor lytes -NPO Code Status: Full code Prophylaxis: Xarelto - Dispo: Spoke with patients daughter regarding pt's code status and although she would prefer DNR/DNI, pt would still like everything to be done to keep her alive. We will continue to follow the patient. Thank you for this consultative opportunity. Visit type - Emergency Visit Emergency Visit: Yes ED Registration Date: 03/11/19 Care time: The patient presented to the Emergency Department on the above date and was hospitalized for further evaluation of their emergent condition. - New Patient This patient is new to me today: Yes Date on this admission: 03/12/19 - Critical Care Critical Care patient: Yes Total Critical Care Time (in minutes): 35 Critical Care Statement: The care of this patient involved high complexity decision making to prevent further life threatening deterioration of the patient 's condition and/or to evaluate & treat vital organ system(s) failure or risk of failure. - Discharge Referral Referred to [facility] No ATTENDING PHYSICIAN STATEMENT I saw and evaluated the patient. I reviewed the resident's note and discussed the case with the resident. I agree with the resident's findings and plan as documented. SUBJECTIVE: OBJECTIVE: ASSESSMENT AND PLAN:
[2019-03-12] MEDS ORDERED: PIPERACILLIN/TAZOB 3.375 GM 2.25 GM in DEXTROSE 5%-WATER - 50 ML IVPB SCH (11:00)
--- NOTE | 2019-03-12 11:05 | PN ---
Progress Note (short form) - Note Progress Note: ID CONSULT DICTATED SEPSIS EXACERBATION COPD ESRD LEUKOPENIA THROMBOCYTOPENIA AWAIT C/S CONTINUE EMPIRIC ZOSYN/ VANCOMYCIN, ADJUSTED FOR RENAL FAILURE
[2019-03-12] MEDS: HYDROCORTISONE SOD SUCCINATE 100 MG/2 ML VIAL IVPB SCH ×2 (11:24→17:19)
[2019-03-12] MEDS: LEVOTHYROXINE SODIUM 100 MCG VIAL IVPUSH SCH (11:24)
--- NOTE | 2019-03-12 11:51 | CONS ---
INFECTIOUS DISEASE CONSULTATION DATE OF CONSULTATION: DATE OF DICTATION: 03/12/2019 The patient is a 73-year-old female who is evaluated for sepsis. The patient has multiple medical problems and has had several recent hospital admissions. She is now readmitted from the snf after she was noted to be increasingly lethargic, dyspneic, hypoxemic, and hypotensive. She was admitted to the intensive care unit. At the present time, she is poorly responsive on BiPAP mask. She appears slightly short of breath at rest. Her course has been complicated by leukopenia. Cultures were obtained. She was empirically treated with Zosyn and vancomycin. She is unable to offer any additional history. She has had several recent hospital admissions for acute exacerbation of COPD and sepsis. Cultures in the past have been unrevealing. No history of [id number] organisms. PAST MEDICAL HISTORY: Positive for end-stage renal disease on hemodialysis, atrial fibrillation, congestive heart failure, COPD, diabetes mellitus, hypothyroidism, obstructive sleep apnea, endometrial carcinoma. ALLERGIES: No known allergies. MEDICATIONS: At this time include vancomycin, Zosyn, Tylenol, hydrocortisone, Synthroid, midodrine, Xarelto. SOCIAL HISTORY: She resides in a alf facility. No active tobacco or alcohol use. SYSTEMS REVIEW: Neurologic: Positive for altered mental status. Cardiac: Negative chest pain or palpitations. Respiratory: Negative cough or sputum production. Gastrointestinal: Negative vomiting or diarrhea. Genitourinary: Positive for end-stage renal disease on hemodialysis. LABORATORY DATA: White count 3.1; neutrophils 67, lymphocytes 21, monocytes 9, absolute neutrophil count 2.1. BUN 27, creatinine 3.0. Liver enzymes: Total bilirubin 0.5, alkaline phosphatase 140, AST 15, ALT 16. Chest x-ray shows increased markings, right lung field. PHYSICAL EXAMINATION: General: She is awake, but lethargic. Vital Signs: Temperature 98; blood pressure 99/57; pulse 60, regular; respirations 22 per minute. HEENT: Sclera anicteric. Patient is on BiPAP mask. Heart: Sounds S1, S2. Lungs: Diminished breath sounds bilaterally. Abdomen: Obese, soft, nontender. Extremities: Negative for pedal edema. There is right upper extremity swelling. A dialysis catheter is present in the right groin. IMPRESSION: 1. Sepsis, unclear source. 2. Acute exacerbation of chronic obstructive pulmonary disease, rule out pneumonia. 3. End-stage renal disease on hemodialysis. 4. Leukopenia. 5. Thrombocytopenia. Await culture results. Empiric antibiotic coverage healthcare-acquired pathogens with Zosyn and vancomycin adjusted for renal insufficiency. ICU monitoring. Will follow. Thank you for the kind referral. BARTOLO VERA M.D. [id number]
[2019-03-12 12:51] LABS: INR 1.55 (0.83-1.09); PROTHROMBIN TIME (PATIENT) 18.4 SEC (9.7-13.0)
[2019-03-12 12:57] LABS: BASO % 0.8 % (0-2.0); EOS % 0.9 % (0-4.5); HEMATOCRIT 34.9 % (32.4-45.2); HEMOGLOBIN 10.4 GM/dL (10.7-15.3); LYMPH % 13.1 % (8-40); MCH 29.1 pg (25.7-33.7); MCHC 29.8 g/dl (32.0-36.0); MEAN CELL VOLUME 97.7 fl (80-96); MONO % 6.7 % (3.8-10.2); NEUT % 78.5 % (42.8-82.8); PLATELET COUNT 73 K/MM3 (134-434); RBC 3.57 M/mm3 (3.60-5.2); RDW 18.4 % (11.6-15.6); WHITE BLOOD COUNT 5.3 K/mm3 (4.0-10.0)
[2019-03-12 13:04] LABS: ALBUMIN 3.5 g/dl (3.4-5.0); BILIRUBIN,TOTAL 0.5 mg/dL (0.2-1); BLOOD UREA NITROGEN 32.2 mg/dL (7-18); CALCIUM 9.3 mg/dL (8.5-10.1); CREATININE 3.4 mg/dL (0.55-1.3); PHOSPHOROUS 5.1 mg/dL (2.5-4.9); POTASSIUM 4.1 mmol/L (3.5-5.1); TOT PROT 6.9 g/dl (6.4-8.2)
[2019-03-12] MEDS ORDERED: SODIUM CHLORIDE 250 ML IV PRN (13:17)
[2019-03-12] MEDS: ALBUMIN HUMAN 25% 12.5 GM/50 ML VIAL IVPB PRN ×2 (14:39→15:20)
--- NOTE | 2019-03-12 15:22 | PN ---
Progress Note (short form) - Note Progress Note: covering hypotension on pressors Active Medications Albumin Human (Albumin Human 25%) 12.5 gm IVPB Q30M PRN PRN Reason: BP less than 90 systolic Last Admin: 03/12/19 14:39 Dose: 12.5 gm Chlorhexidine Gluconate (Hibiclens For Decolonization -) 1 applic TP HS [facility] Last Admin: 03/11/19 22:22 Dose: 1 applic Fludrocortisone Acetate (Florinef -) 0.2 mg PO DAILY [facility] Last Admin: 03/12/19 09:42 Dose: 0.2 mg Hydrocortisone Sodium Succinate (Solu-Cortef -) 100 mg IVPB Q8H [facility] Last Admin: 03/12/19 11:24 Dose: 100 mg Norepinephrine Bitartrate 8, (000 mcg/ Dextrose) 500 mls @ 18.75 mls/hr IV TITR [facility]; Protocol Last Titration: 03/12/19 05:08 Dose: 4 mcg/min, 15 mls/hr Piperacillin Sod/Tazobactam (Sod 2.25 gm/ Dextrose) 50 mls @ 100 mls/hr IVPB Q8H-IV [facility]; Protocol Sodium Chloride (Normal Saline -) 250 mls @ 3,000 mls/hr IV PRN PRN PRN Reason: Hypotension during Dialysis Stop: 03/13/19 13:18 Insulin Aspart (Novolog Vial Sliding Scale -) 1 vial SQ Q6H [facility]; Protocol Last Admin: 03/12/19 13:57 Dose: Not Given Levothyroxine Sodium (Synthroid Injection -) 25 mcg IVPUSH DAILY [facility] Last Admin: 03/12/19 11:24 Dose: 25 mcg Midodrine (Proamatine -) 10 mg PO TID-MID [facility] Last Admin: 03/12/19 13:57 Dose: 10 mg Mupirocin (Bactroban Ointment (For Decolonization) -) 1 applic NS BID [facility] Stop: 03/16/19 21:59 Last Admin: 03/12/19 11:25 Dose: 1 applic Rivaroxaban (Xarelto) 15 mg PO DAILY@1800 [facility] Last Vital Signs Temp Pulse Resp BP Pulse Ox 98.6 F 73 18 91/37 L 95 03/12/19 13:55 03/12/19 14:30 03/12/19 14:30 03/12/19 14:30 03/12/19 12:15 CBC, BMP 03/12/19 12:25 03/12/19 12:25 IMP-esrd hypotension on pressors Plam- HD today with pressor support
[2019-03-12] MEDS ORDERED: PIPERACILLIN/TAZOBACTAM 2.25 GM VIAL IVPB ONE (17:16)
[2019-03-12] MEDS ORDERED: DEXTROSE 5%-WATER - 50 ML IVPB ONE (17:16)
[2019-03-12] MEDS: RIVAROXABAN 15 MG TABLET PO SCH (17:19)
[2019-03-12] MEDS: PIPERACILLIN/TAZOB 2.25 GM 2.25 GM in DEXTROSE 5%-WATER - 50 ML IVPB SCH (17:20)
[2019-03-12] MEDS: NOREPINEPHRINE BITARTRATE 8,000 MCG in DEXTROSE 5%-WATER - 492 ML IV SCH (22:54)
[2019-03-12] MEDS: CHLORHEXIDINE GLUCONATE 4% CLEANSER FOR DECOLONIZATION TP SCH (22:56)
[2019-03-13] MEDS: INSULIN SLIDING SCALE (NOVOLOG) 1 VIAL SQ SCH ×4 (00:29→18:51)
[2019-03-13] MEDS ORDERED: PIPERACILLIN/TAZOBACTAM 2.25 GM VIAL IVPB ONE ×3 (01:22→17:26)
[2019-03-13] MEDS ORDERED: DEXTROSE 5%-WATER - 50 ML IVPB ONE ×3 (01:22→17:26)
[2019-03-13] MEDS: HYDROCORTISONE SOD SUCCINATE 100 MG/2 ML VIAL IVPB SCH ×3 (01:28→14:57)
[2019-03-13] MEDS: PIPERACILLIN/TAZOB 2.25 GM 2.25 GM in DEXTROSE 5%-WATER - 50 ML IVPB SCH ×3 (01:29→17:36)
[2019-03-13 07:31] LABS: HEMATOCRIT 31.8 % (32.4-45.2); MCH 29.9 pg (25.7-33.7); MCHC 31.4 g/dl (32.0-36.0); MEAN CELL VOLUME 95.1 fl (80-96); MEAN PLT VOLUME 8.8 fl (7.5-11.1); PLATELET COUNT 71 K/MM3 (134-434); RBC 3.34 M/mm3 (3.60-5.2); RDW 18.4 % (11.6-15.6); WHITE BLOOD COUNT 3.1 K/mm3 (4.0-10.0)
[2019-03-13 07:40] LABS: ALBUMIN 3.7 g/dl (3.4-5.0); BILIRUBIN,TOTAL 0.7 mg/dL (0.2-1); CALCIUM 9.2 mg/dL (8.5-10.1); CREATININE 2.6 mg/dL (0.55-1.3); MAGNESIUM 1.9 mg/dL (1.8-2.4); PHOSPHOROUS 3.8 mg/dL (2.5-4.9); POTASSIUM 3.8 mmol/L (3.5-5.1); TOT PROT 6.7 g/dl (6.4-8.2)
--- NOTE | 2019-03-13 08:53 | PN ---
Progress Note, Physician Chief Complaint: Acute on Chronic Respiratory Failure ESRD Hypotension History of Present Illness: Previous notes and events reviewed awake and alert, more confused today on Bipap Levophed drip discontinued~BP 150/73 denies chest pain, c/o SOB R eye noted with yellow discharge and mild orbital edema and erythema - Current Medication List Current Medications: Active Medications Albumin Human (Albumin Human 25%) 12.5 gm IVPB Q30M PRN PRN Reason: BP less than 90 systolic Last Admin: 03/12/19 15:20 Dose: 12.5 gm Chlorhexidine Gluconate (Hibiclens For Decolonization -) 1 applic TP HS [facility] Last Admin: 03/12/19 22:56 Dose: 1 applic Fludrocortisone Acetate (Florinef -) 0.2 mg PO DAILY [facility] Last Admin: 03/12/19 09:42 Dose: 0.2 mg Hydrocortisone Sodium Succinate (Solu-Cortef -) 100 mg IVPB Q8H [facility] Last Admin: 03/13/19 01:28 Dose: 100 mg Norepinephrine Bitartrate 8, (000 mcg/ Dextrose) 500 mls @ 18.75 mls/hr IV TITR [facility]; Protocol Last Admin: 03/12/19 22:54 Dose: Not Given Piperacillin Sod/Tazobactam (Sod 2.25 gm/ Dextrose) 50 mls @ 100 mls/hr IVPB Q8H-IV [facility]; Protocol Last Admin: 03/13/19 01:29 Dose: 100 mls/hr Sodium Chloride (Normal Saline -) 250 mls @ 3,000 mls/hr IV PRN PRN PRN Reason: Hypotension during Dialysis Stop: 03/13/19 13:18 Insulin Aspart (Novolog Vial Sliding Scale -) 1 vial SQ Q6H [facility]; Protocol Last Admin: 03/13/19 06:56 Dose: Not Given Levothyroxine Sodium (Synthroid Injection -) 25 mcg IVPUSH DAILY [facility] Last Admin: 03/12/19 11:24 Dose: 25 mcg Midodrine (Proamatine -) 10 mg PO TID-MID [facility] Last Admin: 03/12/19 17:19 Dose: 10 mg Mupirocin (Bactroban Ointment (For Decolonization) -) 1 applic NS BID [facility] Stop: 03/16/19 21:59 Last Admin: 03/12/19 22:57 Dose: 1 applic Rivaroxaban (Xarelto) 15 mg PO DAILY@1800 [facility] Last Admin: 03/12/19 17:19 Dose: 15 mg - Objective Vital Signs: Vital Signs Temperature 96.7 F L 03/13/19 06:00 Pulse Rate 55 L 03/13/19 06:00 Respiratory Rate 16 03/13/19 06:00 Blood Pressure 174/119 H 03/13/19 06:00 O2 Sat by Pulse Oximetry (%) 96 03/13/19 04:00 Constitutional: Yes: No Distress, Anxious, Obese Eyes: Yes: Other (R eye with yellow discharge, mild orbital edema/erythema) HENT: Yes: Atraumatic Cardiovascular: Yes: Bradycardia Respiratory: Yes: Diminished, On BiPap Gastrointestinal: Yes: Normal Bowel Sounds, Soft, Abdomen, Obese Genitourinary: Yes: Joshi Present Musculoskeletal: Yes: Muscle Weakness Extremities: Yes: Erythema (R hand/forearm) Edema: Yes (RUE) Integumentary: Yes: Bruising Neurological: Yes: Alert, Confusion Psychiatric: Yes: Alert Labs: CBC, BMP 03/13/19 05:45 03/13/19 05:45 INR, PTT INR 1.55 (0.83-1.09) H 03/12/19 12:25 Microbiology 03/11/19 13:55 Blood - Peripheral Venous Blood Culture - Preliminary NO GROWTH OBTAINED AFTER 24 HOURS, INCUBATION TO CONTINUE FOR 4 DAYS. 03/11/19 13:23 Blood - Peripheral Venous Blood Culture - Preliminary NO GROWTH OBTAINED AFTER 24 HOURS, INCUBATION TO CONTINUE FOR 4 DAYS. Problem List - Problems (1) Acute on chronic respiratory failure with hypercapnia Assessment/Plan: -Pulm consult -Bipap (Ipap 16, Rate 18, Epap 6, O2 50%) -keep SpO2 >90% -monitor ABGs -CXR shows remains consolidation and likely small left pleural effusion that may have slightly decreased since prior exam, right hemithorax with suggestion of interval betrer aeration of RLL, likely persistent small right pleural effusion -repeat CXR reviewed Code(s): J96.22 - ACUTE AND CHRONIC RESPIRATORY FAILURE WITH HYPERCAPNIA (2) COPD (chronic obstructive pulmonary disease) Assessment/Plan: -Pulm consult -Bipap (Ipap 16, Rate 18, Epap 6, O2 50%) -keep SpO2 >90% -monitor ABGs Code(s): J44.9 - CHRONIC OBSTRUCTIVE PULMONARY DISEASE, UNSPECIFIED Qualifiers: COPD type: unspecified COPD Qualified Code(s): J44.9 - Chronic obstructive pulmonary disease, unspecified (3) ESRD on hemodialysis Assessment/Plan: -Renal consult -HD on scheduled days -BUN/Cr 22.0/2.6 -monitor renal function Code(s): N18.6 - END STAGE RENAL DISEASE; Z99.2 - DEPENDENCE ON RENAL DIALYSIS (4) Hypotension Assessment/Plan: -Levophed discontinued~BP 150/73 -maintain MAP >65 -tele monitoring -trop 0.14, 0.12 Code(s): I95.9 - HYPOTENSION, UNSPECIFIED Qualifiers: Hypotension type: unspecified hypotension type Qualified Code(s): I95.9 - Hypotension, unspecified (5) Afib Assessment/Plan: -Xarelto Code(s): I48.91 - UNSPECIFIED ATRIAL FIBRILLATION (6) Hypothyroid Assessment/Plan: -Levothyroxine Code(s): E03.9 - HYPOTHYROIDISM, UNSPECIFIED (7) Acute metabolic encephalopathy Assessment/Plan: -resolving, patient more awake and responsive -BC neg Code(s): G93.41 - METABOLIC ENCEPHALOPATHY (8) Functional quadriplegia Assessment/Plan: -fall precaution Code(s): R53.2 - FUNCTIONAL QUADRIPLEGIA Assessment/Plan see problem list
[2019-03-13] MEDS ORDERED: PT OWN MED DRAWER 7, Y5N ONE (09:03)
[2019-03-13] MEDS: MUPIROCIN 2% TOPICAL OINTMENT FOR DECOLONIZATION NS SCH ×2 (09:23→21:45)
[2019-03-13] MEDS: FLUDROCORTISONE ACETATE 0.1 MG TABLET (FP) PO SCH (09:24)
[2019-03-13] MEDS: MIDODRINE HCL 5 MG TABLET PO SCH ×3 (09:24→17:37)
[2019-03-13] MEDS ORDERED: AZITHROMYCIN 1% OPHTH SOLN 1 BOTTLE OD SCH (10:00)
[2019-03-13] MEDS: LEVOTHYROXINE SODIUM 100 MCG VIAL IVPUSH SCH (10:13)
--- NOTE | 2019-03-13 10:42 | PN ---
Progress Note, Physician History of Present Illness: AWAKE BUT CONFUSED NO ACUTE DISTRESS HYPOTHERMIC BREATHING NON-LABORED - Current Medication List Current Medications: Active Medications Albumin Human (Albumin Human 25%) 12.5 gm IVPB Q30M PRN PRN Reason: BP less than 90 systolic Last Admin: 03/12/19 15:20 Dose: 12.5 gm Azithromycin (Azasite 1% Ophth Soln -) 1 drop OD DAILY [facility] Chlorhexidine Gluconate (Hibiclens For Decolonization -) 1 applic TP HS [facility] Last Admin: 03/12/19 22:56 Dose: 1 applic Fludrocortisone Acetate (Florinef -) 0.2 mg PO DAILY [facility] Last Admin: 03/13/19 09:24 Dose: 0.2 mg Hydrocortisone Sodium Succinate (Solu-Cortef -) 100 mg IVPB Q8H [facility] Last Admin: 03/13/19 09:23 Dose: 100 mg Norepinephrine Bitartrate 8, (000 mcg/ Dextrose) 500 mls @ 18.75 mls/hr IV TITR [facility]; Protocol Last Admin: 03/12/19 22:54 Dose: Not Given Piperacillin Sod/Tazobactam (Sod 2.25 gm/ Dextrose) 50 mls @ 100 mls/hr IVPB Q8H-IV [facility]; Protocol Last Admin: 03/13/19 09:24 Dose: 100 mls/hr Sodium Chloride (Normal Saline -) 250 mls @ 3,000 mls/hr IV PRN PRN PRN Reason: Hypotension during Dialysis Stop: 03/13/19 13:18 Insulin Aspart (Novolog Vial Sliding Scale -) 1 vial SQ Q6H [facility]; Protocol Last Admin: 03/13/19 06:56 Dose: Not Given Levothyroxine Sodium (Synthroid Injection -) 25 mcg IVPUSH DAILY [facility] Last Admin: 03/13/19 10:13 Dose: 25 mcg Midodrine (Proamatine -) 10 mg PO TID-MID [facility] Last Admin: 03/13/19 09:24 Dose: 10 mg Mupirocin (Bactroban Ointment (For Decolonization) -) 1 applic NS BID [facility] Stop: 03/16/19 21:59 Last Admin: 03/13/19 09:23 Dose: 1 applic Rivaroxaban (Xarelto) 15 mg PO DAILY@1800 [facility] Last Admin: 03/12/19 17:19 Dose: 15 mg - Objective Vital Signs: Vital Signs Temperature 96.7 F L 03/13/19 06:00 Pulse Rate 55 L 03/13/19 06:00 Respiratory Rate 16 03/13/19 06:00 Blood Pressure 174/119 H 03/13/19 06:00 O2 Sat by Pulse Oximetry (%) 97 03/13/19 08:00 Constitutional: Yes: No Distress, Obese Cardiovascular: Yes: Regular Rate and Rhythm, S1, S2 Respiratory: Yes: CTA Bilaterally Gastrointestinal: Yes: Normal Bowel Sounds, Soft. No: Tenderness Edema: No Labs: CBC, BMP 03/13/19 05:45 03/13/19 05:45 INR, PTT INR 1.55 (0.83-1.09) H 03/12/19 12:25 Assessment/Plan SEPSIS EXACERBATION COPD ? PNEUMONIA ESRD LEUKOPENIA THROMBOCYTOPENIA AWAIT C/S CONTINUE EMPIRIC ZOSYN
--- NOTE | 2019-03-13 10:58 | PN ---
Teaching Attending Note Name of Resident: Sasha Pedraza ATTENDING PHYSICIAN STATEMENT I saw and evaluated the patient. I reviewed the resident's note and discussed the case with the resident. I agree with the resident's findings and plan as documented. SUBJECTIVE: Pt seen and examined in the ICU. Remains on BiPAP, more alert. Blood pressures much improved. OBJECTIVE: Vital Signs Period Temp Pulse Resp BP Sys/Jhaveri Pulse Ox Last 24 Hr 96.3 F-98.6 F 52-83 15-27 85-174/37-128 95-100 Intake & Output 03/10/19 03/11/19 03/12/19 03/13/19 23:59 23:59 23:59 23:59 Intake Total 1152 Output Total 2009 0 Balance -858 0 Weight 81.556 kg 80.739 kg 70.806 kg Gen: more alert, awake Heart: RRR Lung: decreased breath sounds at the bases Abd: soft, nontender Ext: + edema CBC, BMP 03/13/19 05:45 03/13/19 05:45 Active Medications Albumin Human (Albumin Human 25%) 12.5 gm IVPB Q30M PRN PRN Reason: BP less than 90 systolic Last Admin: 03/12/19 15:20 Dose: 12.5 gm Azithromycin (Azasite 1% Ophth Soln -) 1 drop OD DAILY [facility] Chlorhexidine Gluconate (Hibiclens For Decolonization -) 1 applic TP HS [facility] Last Admin: 03/12/19 22:56 Dose: 1 applic Fludrocortisone Acetate (Florinef -) 0.2 mg PO DAILY [facility] Last Admin: 03/13/19 09:24 Dose: 0.2 mg Hydrocortisone Sodium Succinate (Solu-Cortef -) 100 mg IVPB Q8H [facility] Last Admin: 03/13/19 09:23 Dose: 100 mg Norepinephrine Bitartrate 8, (000 mcg/ Dextrose) 500 mls @ 18.75 mls/hr IV TITR [facility]; Protocol Last Admin: 03/12/19 22:54 Dose: Not Given Piperacillin Sod/Tazobactam (Sod 2.25 gm/ Dextrose) 50 mls @ 100 mls/hr IVPB Q8H-IV [facility]; Protocol Last Admin: 03/13/19 09:24 Dose: 100 mls/hr Sodium Chloride (Normal Saline -) 250 mls @ 3,000 mls/hr IV PRN PRN PRN Reason: Hypotension during Dialysis Stop: 03/13/19 13:18 Insulin Aspart (Novolog Vial Sliding Scale -) 1 vial SQ Q6H [facility]; Protocol Last Admin: 03/13/19 06:56 Dose: Not Given Levothyroxine Sodium (Synthroid Injection -) 25 mcg IVPUSH DAILY [facility] Last Admin: 03/13/19 10:13 Dose: 25 mcg Midodrine (Proamatine -) 10 mg PO TID-MID [facility] Last Admin: 03/13/19 09:24 Dose: 10 mg Mupirocin (Bactroban Ointment (For Decolonization) -) 1 applic NS BID [facility] Stop: 03/16/19 21:59 Last Admin: 03/13/19 09:23 Dose: 1 applic Rivaroxaban (Xarelto) 15 mg PO DAILY@1800 [facility] Last Admin: 03/12/19 17:19 Dose: 15 mg ASSESSMENT AND PLAN: Acute on Chronic Hypoxic and Hypercapneic Respiratory Failure r/o Pneumonia Shock - r/o Septic improving +Troponins likely Demand Ischemia Acute on Chronic Diastolic Heart Failure Atrial Fibrillation h/o DVT ESRD on HD COPD Hypothyroidism CHERISE h/o Endometrial Ca - continue antibiotics - f/u cultures - taper off empiric stress dose steroids - O2 to keep spo2 >90% - BiPAP as needed - monitor ABG - HD per renal - continue anticoagulation - can monitor on telemetry critical care time spent in reviewing chart, evaluating patient and formulating plan 35 min
--- NOTE | 2019-03-13 12:20 | PN ---
Physical Exam: SUBJECTIVE: Patient seen and examined at bedside. No acute events overnight. Off pressors. OBJECTIVE: Vital Signs Period Temp Pulse Resp BP Sys/Jhaveri Pulse Ox Last 24 Hr 96.3 F-98.6 F 52-83 15-27 85-174/37-128 96-100 GENERAL: NAD HEAD: AT/NC EYES: EOMI Sclera Clear LUNGS: Poor inspiratory effort. HEART: RRR S1S2 ABDOMEN: Soft, NDNT EXTREMITIES: RUE 2+ edema Laboratory Results - last 24 hr 03/12/19 03/12/19 03/12/19 12:19 12:25 12:25 WBC 5.3 RBC 3.57 L Hgb 10.4 L Hct 34.9 MCV 97.7 H MCH 29.1 MCHC 29.8 L RDW 18.4 H Plt Count 73 L MPV 9.0 Absolute Neuts (auto) 4.1 Neutrophils % 78.5 Lymphocytes % 13.1 D Monocytes % 6.7 Eosinophils % 0.9 Basophils % 0.8 Nucleated RBC % 1 H PT with INR INR Sodium Potassium Chloride Carbon Dioxide Anion Gap BUN Creatinine Est GFR (CKD-EPI)AfAm Est GFR (CKD-EPI)NonAf POC Glucometer 109 Random Glucose Calcium Phosphorus Magnesium Total Bilirubin AST ALT Alkaline Phosphatase Total Protein Albumin Random Vancomycin 23.5 03/12/19 03/12/19 03/12/19 12:25 12:25 18:01 WBC RBC Hgb Hct MCV MCH MCHC RDW Plt Count MPV Absolute Neuts (auto) Neutrophils % Lymphocytes % Monocytes % Eosinophils % Basophils % Nucleated RBC % PT with INR 18.40 H INR 1.55 H Sodium 137 Potassium 4.1 Chloride 100 Carbon Dioxide 22 Anion Gap 15 BUN 32.2 H Creatinine 3.4 H Est GFR (CKD-EPI)AfAm 14.95 Est GFR (CKD-EPI)NonAf 12.90 POC Glucometer 129 Random Glucose 88 Calcium 9.3 Phosphorus 5.1 H Magnesium 2.0 Total Bilirubin 0.5 AST 26 ALT 18 Alkaline Phosphatase 137 H Total Protein 6.9 Albumin 3.5 Random Vancomycin 03/13/19 03/13/19 03/13/19 00:26 05:45 05:45 WBC 3.1 L RBC 3.34 L Hgb 10.0 L Hct 31.8 L MCV 95.1 MCH 29.9 MCHC 31.4 L RDW 18.4 H Plt Count 71 L MPV 8.8 Absolute Neuts (auto) Neutrophils % Lymphocytes % Monocytes % Eosinophils % Basophils % Nucleated RBC % PT with INR INR Sodium 138 Potassium 3.8 Chloride 98 Carbon Dioxide 26 Anion Gap 14 BUN 22.0 H Creatinine 2.6 H Est GFR (CKD-EPI)AfAm 20.68 Est GFR (CKD-EPI)NonAf 17.84 POC Glucometer 116 Random Glucose 100 Calcium 9.2 Phosphorus 3.8 Magnesium 1.9 Total Bilirubin 0.7 AST 19 ALT 16 Alkaline Phosphatase 123 H Total Protein 6.7 Albumin 3.7 Random Vancomycin 03/13/19 06:30 WBC RBC Hgb Hct MCV MCH MCHC RDW Plt Count MPV Absolute Neuts (auto) Neutrophils % Lymphocytes % Monocytes % Eosinophils % Basophils % Nucleated RBC % PT with INR INR Sodium Potassium Chloride Carbon Dioxide Anion Gap BUN Creatinine Est GFR (CKD-EPI)AfAm Est GFR (CKD-EPI)NonAf POC Glucometer 109 Random Glucose Calcium Phosphorus Magnesium Total Bilirubin AST ALT Alkaline Phosphatase Total Protein Albumin Random Vancomycin Active Medications Generic Name Dose Route Start Last Admin Trade Name Freq PRN Reason Stop Dose Admin Albumin Human 12.5 gm 03/12/19 13:17 03/12/19 15:20 Albumin Human 25% IVPB 12.5 gm Q30M PRN Administration BP less than 90 systolic Azithromycin 1 drop 03/14/19 10:00 Azasite 1% Ophth Soln - OD DAILY [facility] Chlorhexidine Gluconate 1 applic 03/11/19 22:00 03/12/19 22:56 Hibiclens For Decolonization - TP 1 applic HS [facility] Administration Fludrocortisone Acetate 0.2 mg 03/12/19 10:00 03/13/19 09:24 Florinef - PO 0.2 mg DAILY [facility] Administration Hydrocortisone Sodium Succinate 50 mg 03/13/19 12:15 Solu-Cortef - IVPB Q12H [facility] Norepinephrine Bitartrate 8, 500 mls @ 18.75 mls/hr 03/11/19 22:15 03/12/19 22:54 000 mcg/ Dextrose IV Not Given TITR [facility] Protocol 5 MCG/MIN Piperacillin Sod/Tazobactam 50 mls @ 100 mls/hr 03/12/19 18:00 03/13/19 09:24 Sod 2.25 gm/ Dextrose IVPB 100 mls/hr Q8H-IV [facility] Administration Protocol Sodium Chloride 250 mls @ 3,000 mls/hr 03/12/19 13:17 Normal Saline - IV 03/13/19 13:18 PRN PRN Hypotension during Dialysis Insulin Aspart 1 vial 03/11/19 19:00 03/13/19 06:56 Novolog Vial Sliding Scale - SQ Not Given Q6H [facility] Protocol Levothyroxine Sodium 25 mcg 03/12/19 10:00 03/13/19 10:13 Synthroid Injection - IVPUSH 25 mcg DAILY [facility] Administration Midodrine 10 mg 03/12/19 10:00 03/13/19 09:24 Proamatine - PO 10 mg TID-MID [facility] Administration Mupirocin 1 applic 03/11/19 22:00 03/13/19 09:23 Bactroban Ointment (For Decolonization) - NS 03/16/19 21:59 1 applic BID [facility] Administration Rivaroxaban 15 mg 03/12/19 18:00 03/12/19 17:19 Xarelto PO 15 mg DAILY@1800 [facility] Administration ASSESSMENT/PLAN: This is a 73 yo F w/ a PMHx of ESRD, Orthostatic Hypotension, HFrEF, DM, hypothyroidism, COPD, Afib (on Xarelto), DVTs, and multiple admissions for PNA ( including intubation) is admitted to ICU for Acute hypercapneic respiratory failure. #Neuro: Acute toxic metabolic encephalopathy; dementia -resolving -pt is awake with BIPAP on -pt is at baseline #Cardio: hypotensive ( pt chronically on midodrine) possibly sepsis vs chronic etiology; HFrEF, Afib -pt MAPs>55 typically low, as seen during prior admission -will avoid IVF as per nephro -will continue tele monitoring -off levophed -c/w Xarelto for Afib -Trop 0.14-->0.12, most likely 2/2 demand ischemia. #Pulm: Acute on Chronic hypercapneic hypoxic respiratory failure -on BIPAP saturating well -rpt ABG no longer hypercapnic (53), pH 7.28. -maintain spO2 > 88% #Renal: ESRD on dialysis - Nephrology evaluated patient today, 03/13/19---> plan to continue with HD as scheduled. -c/w midodrine to maintain BP #ID: possible sepsis -Blood cultures negative -Dr King on board. Pt now on Zosyn. #Endo: hypothyroidism, DM -TSH high, restarted home synthroid -c/w ISS, BGM #FEN -no standing fluids -monitor lytes -Dysphagia puree #Code Status: Full code #DVT ppx: Suzierelto #DISPO: transfer to Tele Visit type - Emergency Visit Emergency Visit: Yes ED Registration Date: 03/11/19 Care time: The patient presented to the Emergency Department on the above date and was hospitalized for further evaluation of their emergent condition. - New Patient This patient is new to me today: No - Critical Care Critical Care patient: Yes Total Critical Care Time (in minutes): 35 Critical Care Statement: The care of this patient involved high complexity decision making to prevent further life threatening deterioration of the patient 's condition and/or to evaluate & treat vital organ system(s) failure or risk of failure. - Discharge Referral Referred to [facility] No ATTENDING PHYSICIAN STATEMENT I saw and evaluated the patient. I reviewed the resident's note and discussed the case with the resident. I agree with the resident's findings and plan as documented. SUBJECTIVE: OBJECTIVE: ASSESSMENT AND PLAN:
--- NOTE | 2019-03-13 16:06 | PN ---
Progress Note (short form) - Note Progress Note: covering hypotension on pressors ESRD Current Medications Albumin Human (Albumin Human 25%) 12.5 gm IVPB Q30M PRN PRN Reason: BP less than 90 systolic Last Admin: 03/12/19 15:20 Dose: 12.5 gm Azithromycin (Azasite 1% Ophth Soln -) 1 drop OD DAILY [facility] Chlorhexidine Gluconate (Hibiclens For Decolonization -) 1 applic TP HS [facility] Last Admin: 03/12/19 22:56 Dose: 1 applic Fludrocortisone Acetate (Florinef -) 0.2 mg PO DAILY [facility] Last Admin: 03/13/19 09:24 Dose: 0.2 mg Hydrocortisone Sodium Succinate (Solu-Cortef -) 50 mg IVPB Q12H [facility] Last Admin: 03/13/19 14:57 Dose: Not Given Norepinephrine Bitartrate 8, (000 mcg/ Dextrose) 500 mls @ 18.75 mls/hr IV TITR [facility]; Protocol Last Admin: 03/12/19 22:54 Dose: Not Given Piperacillin Sod/Tazobactam (Sod 2.25 gm/ Dextrose) 50 mls @ 100 mls/hr IVPB Q8H-IV [facility]; Protocol Last Admin: 03/13/19 09:24 Dose: 100 mls/hr Insulin Aspart (Novolog Vial Sliding Scale -) 1 vial SQ Q6H [facility]; Protocol Last Admin: 03/13/19 12:23 Dose: Not Given Levothyroxine Sodium (Synthroid Injection -) 25 mcg IVPUSH DAILY [facility] Last Admin: 03/13/19 10:13 Dose: 25 mcg Midodrine (Proamatine -) 10 mg PO TID-MID [facility] Last Admin: 03/13/19 14:57 Dose: 10 mg Mupirocin (Bactroban Ointment (For Decolonization) -) 1 applic NS BID [facility] Stop: 03/16/19 21:59 Last Admin: 03/13/19 09:23 Dose: 1 applic Rivaroxaban (Xarelto) 15 mg PO DAILY@1800 [facility] Last Admin: 03/12/19 17:19 Dose: 15 mg Last Vital Signs Temp Pulse Resp BP Pulse Ox 98.2 F 74 18 105/53 L 97 03/13/19 12:00 03/13/19 14:00 03/13/19 14:00 03/13/19 14:00 03/13/19 08:00 CBC, BMP 03/13/19 05:45 03/13/19 05:45 CBC, BMP 03/12/19 12:25 03/12/19 12:25 IMP-esrd s/p uneventful HD yesterday on pressors Plam- HD MWF
[2019-03-13] MEDS ORDERED: SODIUM CHLORIDE 250 ML IV PRN (16:07)
--- NOTE | 2019-03-13 16:58 | EKG ---
Test Reason : Blood Pressure : / mmHG Vent. Rate : 121 BPM Atrial Rate : 136 BPM P-R Int : 000 ms QRS Dur : 086 ms QT Int : 312 ms P-R-T Axes : 000 -63 036 degrees QTc Int : 443 ms UNDETERMINED RHYTHM LEFT AXIS DEVIATION LOW VOLTAGE QRS POSSIBLE LATERAL INFARCT (CITED ON OR BEFORE 28-JAN-2019) ABNORMAL ECG WHEN COMPARED WITH ECG OF 28-FEB-2019 02:11, DIFFICULT TO COMPARE DUE TO BASELINE ARTIFACT Confirmed by HEBER ADEN MD ([id number]) on 03/13/2019 4:57:46 PM Referred By: Confirmed By:HEBER ADEN MD
[2019-03-13] MEDS: RIVAROXABAN 15 MG TABLET PO SCH (17:37)
[2019-03-13] MEDS: CHLORHEXIDINE GLUCONATE 4% CLEANSER FOR DECOLONIZATION TP SCH (21:45)
[2019-03-13] MEDS: NOREPINEPHRINE BITARTRATE 8,000 MCG in DEXTROSE 5%-WATER - 492 ML IV SCH (22:45)
[2019-03-14] MEDS ORDERED: PIPERACILLIN/TAZOBACTAM 2.25 GM VIAL IVPB ONE ×3 (00:32→17:16)
[2019-03-14] MEDS ORDERED: DEXTROSE 5%-WATER - 50 ML IVPB ONE ×3 (00:33→17:16)
[2019-03-14] MEDS: HYDROCORTISONE SOD SUCCINATE 100 MG/2 ML VIAL IVPB SCH ×3 (00:36→22:00)
[2019-03-14] MEDS: INSULIN SLIDING SCALE (NOVOLOG) 1 VIAL SQ SCH ×5 (01:14→18:32)
[2019-03-14] MEDS: PIPERACILLIN/TAZOB 2.25 GM 2.25 GM in DEXTROSE 5%-WATER - 50 ML IVPB SCH ×3 (01:15→17:46)
[2019-03-14] MEDS: POLYMYXIN B SULFATE/TMP 10 ML OPHTHALMIC SOLUTION OD SCH ×5 (06:14→22:00)
[2019-03-14 06:51] LABS: ALBUMIN 3.5 g/dl (3.4-5.0); BILIRUBIN,TOTAL 0.5 mg/dL (0.2-1); BLOOD UREA NITROGEN 32.2 mg/dL (7-18); CALCIUM 9.3 mg/dL (8.5-10.1); CREATININE 3.5 mg/dL (0.55-1.3); PHOSPHOROUS 4.5 mg/dL (2.5-4.9); POTASSIUM 4.3 mmol/L (3.5-5.1); TOT PROT 6.6 g/dl (6.4-8.2)
[2019-03-14 07:20] LABS: HEMATOCRIT 33.3 % (32.4-45.2); HEMOGLOBIN 10.2 GM/dL (10.7-15.3); MCH 29.3 pg (25.7-33.7); MCHC 30.6 g/dl (32.0-36.0); MEAN CELL VOLUME 95.5 fl (80-96); MEAN PLT VOLUME 9.1 fl (7.5-11.1); PLATELET COUNT 95 K/MM3 (134-434); RBC 3.48 M/mm3 (3.60-5.2); RDW 18.3 % (11.6-15.6); WHITE BLOOD COUNT 4.2 K/mm3 (4.0-10.0)
--- NOTE | 2019-03-14 07:27 | PN ---
Progress Note, Physician - Current Medication List Current Medications: Active Medications Albumin Human (Albumin Human 25%) 12.5 gm IVPB Q30M PRN PRN Reason: BP less than 90 systolic Last Admin: 03/12/19 15:20 Dose: 12.5 gm Chlorhexidine Gluconate (Hibiclens For Decolonization -) 1 applic TP HS [facility] Last Admin: 03/13/19 21:45 Dose: 1 applic Fludrocortisone Acetate (Florinef -) 0.2 mg PO DAILY [facility] Last Admin: 03/13/19 09:24 Dose: 0.2 mg Hydrocortisone Sodium Succinate (Solu-Cortef -) 50 mg IVPB Q12H [facility] Last Admin: 03/14/19 00:36 Dose: 50 mg Norepinephrine Bitartrate 8, (000 mcg/ Dextrose) 500 mls @ 18.75 mls/hr IV TITR [facility]; Protocol Last Admin: 03/13/19 22:45 Dose: Not Given Piperacillin Sod/Tazobactam (Sod 2.25 gm/ Dextrose) 50 mls @ 100 mls/hr IVPB Q8H-IV [facility]; Protocol Last Admin: 03/14/19 01:15 Dose: 100 mls/hr Sodium Chloride (Normal Saline -) 250 mls @ 3,000 mls/hr IV PRN PRN PRN Reason: Hypotension during Dialysis Stop: 03/14/19 16:08 Insulin Aspart (Novolog Vial Sliding Scale -) 1 vial SQ Q6H [facility]; Protocol Last Admin: 03/14/19 06:15 Dose: Not Given Levothyroxine Sodium (Synthroid Injection -) 25 mcg IVPUSH DAILY [facility] Last Admin: 03/13/19 10:13 Dose: 25 mcg Midodrine (Proamatine -) 10 mg PO TID-MID [facility] Last Admin: 03/13/19 17:37 Dose: 10 mg Mupirocin (Bactroban Ointment (For Decolonization) -) 1 applic NS BID [facility] Stop: 03/16/19 21:59 Last Admin: 03/13/19 21:45 Dose: 1 applic Polymyxin/Trimethoprim Sulfate (Polytrim Opthalmic Solution -) 1 drop OD Q4HWA [facility] Stop: 03/21/19 05:59 Last Admin: 03/14/19 06:14 Dose: 1 drop Rivaroxaban (Xarelto) 15 mg PO DAILY@1800 [facility] Last Admin: 03/13/19 17:37 Dose: 15 mg - Objective Vital Signs: Vital Signs Temperature 98.1 F 03/14/19 06:00 Pulse Rate 60 03/14/19 06:00 Respiratory Rate 22 H 03/14/19 06:00 Blood Pressure 109/55 L 03/14/19 06:00 O2 Sat by Pulse Oximetry (%) 99 03/14/19 00:32 Cardiovascular: Yes: S1, S2 Respiratory: Yes: On Nasal O2 Gastrointestinal: Yes: Normal Bowel Sounds, Soft Neurological: Yes: Alert Labs: CBC, BMP 03/14/19 05:35 03/14/19 05:35 INR, PTT INR 1.55 (0.83-1.09) H 03/12/19 12:25 Assessment/Plan - Problems (1) Acute on chronic respiratory failure with hypercapnia Assessment/Plan: -Pulm consult -Bipap (Ipap 16, Rate 18, Epap 6, O2 50%) at night -NC keep SpO2 >90% -monitor ABGs -CXR Poor film--repeat Code(s): J96.22 - ACUTE AND CHRONIC RESPIRATORY FAILURE WITH HYPERCAPNIA (2) COPD (chronic obstructive pulmonary disease) Assessment/Plan: -As Above Code(s): J44.9 - CHRONIC OBSTRUCTIVE PULMONARY DISEASE, UNSPECIFIED Qualifiers: COPD type: unspecified COPD Qualified Code(s): J44.9 - Chronic obstructive pulmonary disease, unspecified (3) ESRD on hemodialysis Assessment/Plan: -Renal consult -HD on scheduled days -monitor renal function Code(s): N18.6 - END STAGE RENAL DISEASE; Z99.2 - DEPENDENCE ON RENAL DIALYSIS (4) Hypotension Assessment/Plan: -Levophed discontinued -maintain MAP >65 -tele monitoring -trop 0.14, 0.12 Code(s): I95.9 - HYPOTENSION, UNSPECIFIED Qualifiers: Hypotension type: unspecified hypotension type Qualified Code(s): I95.9 - Hypotension, unspecified (5) Afib Assessment/Plan: -Xarelto Code(s): I48.91 - UNSPECIFIED ATRIAL FIBRILLATION (6) Hypothyroid Assessment/Plan: -Levothyroxine Code(s): E03.9 - HYPOTHYROIDISM, UNSPECIFIED (7) Acute metabolic encephalopathy Assessment/Plan: -resolving, patient more awake and responsive -BC neg Code(s): G93.41 - METABOLIC ENCEPHALOPATHY (8) Functional quadriplegia Assessment/Plan: -fall precaution -PT Code(s): R53.2 - FUNCTIONAL QUADRIPLEGIA (9) Thrombocytopnia Assessment/Plan: -Monitor -Chronic
[2019-03-14] MEDS: MUPIROCIN 2% TOPICAL OINTMENT FOR DECOLONIZATION NS SCH (09:23)
[2019-03-14] MEDS: MIDODRINE HCL 5 MG TABLET PO SCH ×3 (09:23→17:46)
[2019-03-14] MEDS: FLUDROCORTISONE ACETATE 0.1 MG TABLET (FP) PO SCH (09:24)
[2019-03-14] MEDS ORDERED: AZITHROMYCIN 1% OPHTH SOLN 1 BOTTLE OD SCH (10:00)
[2019-03-14] MEDS ORDERED: LIDOCAINE HCL 2% JELLY (30 ML/TUBE) TP ONE (11:15)
[2019-03-14 11:20] LABS: BLOOD UREA NITROGEN 11.8 mg/dL (7-18); CREATININE 1.6 mg/dL (0.55-1.3)
--- NOTE | 2019-03-14 11:20 | PN ---
Teaching Attending Note Name of Resident: Aishwarya Coombs ATTENDING PHYSICIAN STATEMENT I saw and evaluated the patient. I reviewed the resident's note and discussed the case with the resident. I agree with the resident's findings and plan as documented. SUBJECTIVE: Pt seen and examined in the ICU. Blood pressures remain good. Denies shortness of breath or chest pain. OBJECTIVE: Vital Signs Period Temp Pulse Resp BP Sys/Jhaveri Pulse Ox Last 24 Hr 97 F-98.2 F 53-84 12-22 90-133/40-104 95-99 Intake & Output 03/11/19 03/12/19 03/13/19 03/14/19 23:59 23:59 23:59 23:59 Intake Total 1152 610 650 Output Total 2009 0 3000 Balance -858 610 -2350 Weight 81.556 kg 80.739 kg 70.76 kg 71.622 kg Gen: NAD at rest Heart: RRR Lung: decreased breath sounds at the bases Abd: soft, nontender Ext: + UE edema CBC, BMP 03/14/19 05:35 Active Medications Albumin Human (Albumin Human 25%) 12.5 gm IVPB Q30M PRN PRN Reason: BP less than 90 systolic Last Admin: 03/12/19 15:20 Dose: 12.5 gm Chlorhexidine Gluconate (Hibiclens For Decolonization -) 1 applic TP HS [facility] Last Admin: 03/13/19 21:45 Dose: 1 applic Fludrocortisone Acetate (Florinef -) 0.2 mg PO DAILY [facility] Last Admin: 03/14/19 09:24 Dose: 0.2 mg Hydrocortisone Sodium Succinate (Solu-Cortef -) 25 mg IVPB BID [facility] Piperacillin Sod/Tazobactam (Sod 2.25 gm/ Dextrose) 50 mls @ 100 mls/hr IVPB Q8H-IV [facility]; Protocol Last Admin: 03/14/19 09:19 Dose: 100 mls/hr Sodium Chloride (Normal Saline -) 250 mls @ 3,000 mls/hr IV PRN PRN PRN Reason: Hypotension during Dialysis Stop: 03/14/19 16:08 Insulin Aspart (Novolog Vial Sliding Scale -) 1 vial SQ Q6H [facility]; Protocol Last Admin: 03/14/19 06:15 Dose: Not Given Levothyroxine Sodium (Synthroid -) 25 mcg PO DAILY@0700 [facility] Midodrine (Proamatine -) 10 mg PO TID-MID [facility] Last Admin: 03/14/19 09:23 Dose: 10 mg Mupirocin (Bactroban Ointment (For Decolonization) -) 1 applic NS BID [facility] Stop: 03/16/19 21:59 Last Admin: 03/14/19 09:23 Dose: 1 applic Polymyxin/Trimethoprim Sulfate (Polytrim Opthalmic Solution -) 1 drop OD Q4HWA [facility] Stop: 03/21/19 05:59 Last Admin: 03/14/19 09:31 Dose: 1 drop Rivaroxaban (Xarelto) 15 mg PO DAILY@1800 [facility] Last Admin: 03/13/19 17:37 Dose: 15 mg ASSESSMENT AND PLAN: Acute on Chronic Hypoxic and Hypercapneic Respiratory Failure r/o Pneumonia Shock - r/o Septic improving +Troponins likely Demand Ischemia Acute on Chronic Diastolic Heart Failure Atrial Fibrillation h/o DVT ESRD on HD COPD Hypothyroidism CHERISE h/o Endometrial Ca - continue antibiotics - f/u cultures - taper off empiric stress dose steroids - O2 to keep spo2 >90% - BiPAP as needed - HD per renal - continue anticoagulation - can monitor on floor
--- NOTE | 2019-03-14 11:41 | PN ---
Progress Note, Physician History of Present Illness: AWAKE BUT CONFUSED NO ACUTE DISTRESS AFEBRILE BREATHING NON-LABORED - Current Medication List Current Medications: Active Medications Albumin Human (Albumin Human 25%) 12.5 gm IVPB Q30M PRN PRN Reason: BP less than 90 systolic Last Admin: 03/12/19 15:20 Dose: 12.5 gm Chlorhexidine Gluconate (Hibiclens For Decolonization -) 1 applic TP HS [facility] Last Admin: 03/13/19 21:45 Dose: 1 applic Fludrocortisone Acetate (Florinef -) 0.2 mg PO DAILY [facility] Last Admin: 03/14/19 09:24 Dose: 0.2 mg Hydrocortisone Sodium Succinate (Solu-Cortef -) 25 mg IVPB BID [facility] Piperacillin Sod/Tazobactam (Sod 2.25 gm/ Dextrose) 50 mls @ 100 mls/hr IVPB Q8H-IV [facility]; Protocol Last Admin: 03/14/19 09:19 Dose: 100 mls/hr Sodium Chloride (Normal Saline -) 250 mls @ 3,000 mls/hr IV PRN PRN PRN Reason: Hypotension during Dialysis Stop: 03/14/19 16:08 Insulin Aspart (Novolog Vial Sliding Scale -) 1 vial SQ Q6H [facility]; Protocol Last Admin: 03/14/19 06:15 Dose: Not Given Levothyroxine Sodium (Synthroid -) 25 mcg PO DAILY@0700 [facility] Midodrine (Proamatine -) 10 mg PO TID-MID [facility] Last Admin: 03/14/19 09:23 Dose: 10 mg Mupirocin (Bactroban Ointment (For Decolonization) -) 1 applic NS BID [facility] Stop: 03/16/19 21:59 Last Admin: 03/14/19 09:23 Dose: 1 applic Polymyxin/Trimethoprim Sulfate (Polytrim Opthalmic Solution -) 1 drop OD Q4HWA [facility] Stop: 03/21/19 05:59 Last Admin: 03/14/19 09:31 Dose: 1 drop Rivaroxaban (Xarelto) 15 mg PO DAILY@1800 [facility] Last Admin: 03/13/19 17:37 Dose: 15 mg - Objective Vital Signs: Vital Signs Temperature 98.2 F 03/14/19 06:55 Pulse Rate 54 L 03/14/19 10:26 Respiratory Rate 18 03/14/19 10:05 Blood Pressure 117/71 03/14/19 10:05 O2 Sat by Pulse Oximetry (%) 95 03/14/19 10:26 Constitutional: Yes: No Distress Eyes: Yes: Conjunctiva Clear Cardiovascular: Yes: Regular Rate and Rhythm, S1, S2 Respiratory: Yes: CTA Bilaterally Gastrointestinal: Yes: Normal Bowel Sounds. No: Tenderness Edema: No Labs: CBC, BMP 03/14/19 05:35 03/14/19 10:00 INR, PTT INR 1.55 (0.83-1.09) H 03/12/19 12:25 Assessment/Plan SEPSIS EXACERBATION COPD ? PNEUMONIA ESRD LEUKOPENIA THROMBOCYTOPENIA CONTINUE EMPIRIC ZOSYN
--- NOTE | 2019-03-14 11:49 | PN ---
Physical Exam: SUBJECTIVE: Patient seen and examined at bedside. pt is very anxious and fearful of although she is not complaining of SOB , CP, or pain. later in a different encounter she is complaining of rectal pain saying that it is "raw" OBJECTIVE: Vital Signs Period Temp Pulse Resp BP Sys/Jhaveri Pulse Ox Last 24 Hr 97 F-98.2 F 53-84 12-22 90-133/40-104 95-99 GENERAL: The patient is awake, alert, oriented x 2 , in no acute distress. LUNGS: Breath sounds equal,no crackles or wheezes, no accessory muscle use. HEART: irregular rate and rhythm, S1, S2 ABDOMEN: Soft, nontender, nondistended, normoactive bowel sounds, no guarding EXTREMITIES:b/l UE erythema and edema Laboratory Results - last 24 hr 03/14/19 03/14/19 03/14/19 05:35 05:35 05:59 WBC 4.2 RBC 3.48 L Hgb 10.2 L Hct 33.3 MCV 95.5 MCH 29.3 MCHC 30.6 L RDW 18.3 H Plt Count 95 L D MPV 9.1 Sodium 137 Potassium 4.3 Chloride 98 Carbon Dioxide 28 Anion Gap 11 BUN 32.2 H Creatinine 3.5 H Est GFR (CKD-EPI)AfAm 14.43 Est GFR (CKD-EPI)NonAf 12.45 POC Glucometer 119 Random Glucose 121 H Calcium 9.3 Phosphorus 4.5 Magnesium 2.0 Total Bilirubin 0.5 AST 12 L ALT 16 Alkaline Phosphatase 116 Total Protein 6.6 Albumin 3.5 03/14/19 10:00 WBC RBC Hgb Hct MCV MCH MCHC RDW Plt Count MPV Sodium Potassium Chloride Carbon Dioxide Anion Gap BUN 11.8 Creatinine 1.6 H Est GFR (CKD-EPI)AfAm 37.19 Est GFR (CKD-EPI)NonAf 32.09 POC Glucometer Random Glucose Calcium Phosphorus Magnesium Total Bilirubin AST ALT Alkaline Phosphatase Total Protein Albumin Current Medications Albumin Human (Albumin Human 25%) 12.5 gm IVPB Q30M PRN PRN Reason: BP less than 90 systolic Last Admin: 03/12/19 15:20 Dose: 12.5 gm Chlorhexidine Gluconate (Hibiclens For Decolonization -) 1 applic TP HS [facility] Last Admin: 03/13/19 21:45 Dose: 1 applic Fludrocortisone Acetate (Florinef -) 0.2 mg PO DAILY [facility] Last Admin: 03/14/19 09:24 Dose: 0.2 mg Hydrocortisone Sodium Succinate (Solu-Cortef -) 25 mg IVPB BID [facility] Piperacillin Sod/Tazobactam (Sod 2.25 gm/ Dextrose) 50 mls @ 100 mls/hr IVPB Q8H-IV [facility]; Protocol Last Admin: 03/14/19 09:19 Dose: 100 mls/hr Sodium Chloride (Normal Saline -) 250 mls @ 3,000 mls/hr IV PRN PRN PRN Reason: Hypotension during Dialysis Stop: 03/14/19 16:08 Insulin Aspart (Novolog Vial Sliding Scale -) 1 vial SQ Q6H [facility]; Protocol Last Admin: 03/14/19 06:15 Dose: Not Given Levothyroxine Sodium (Synthroid -) 25 mcg PO DAILY@0700 [facility] Midodrine (Proamatine -) 10 mg PO TID-MID [facility] Last Admin: 03/14/19 09:23 Dose: 10 mg Mupirocin (Bactroban Ointment (For Decolonization) -) 1 applic NS BID [facility] Stop: 03/16/19 21:59 Last Admin: 03/14/19 09:23 Dose: 1 applic Polymyxin/Trimethoprim Sulfate (Polytrim Opthalmic Solution -) 1 drop OD Q4HWA [facility] Stop: 03/21/19 05:59 Last Admin: 03/14/19 09:31 Dose: 1 drop Rivaroxaban (Xarelto) 15 mg PO DAILY@1800 [facility] Last Admin: 03/13/19 17:37 Dose: 15 mg ASSESSMENT/PLAN: This is a 73 yo F w/ a PMH of ESRD, Orthostatic Hypotension, HFrEF, DM, hypothyroidism, COPD, Afib (on Xarelto), DVTs, and multiple admissions for PNA ( including intubation) is admitted to ICU for Acute hypercapneic respiratory failure. Neuro: Acute toxic metabolic encephalopathy; dementia -resolving, pt appears at baseline -tylenol for pain, may consider tramadol vs low dose oxycodone Cardio: hypotensive ( pt chronically on midodrine) possibly sepsis vs chronic etiology; HFrEF, Afib -pt MAPs>55 typically low, as seen during prior admission -will avoid IVF as per nephro -no longer on levo, MAPs > 55 -c/w Xarelto for Afib -Trop 0.14-->0.12, most likely 2/2 demand ischemia. -c/w steroid taper-hydrocortisone 25mg x 4 doses Pulm: Acute on Chronic hypercapneic hypoxic respiratory failure -on nasal cannula saturating well. BIPAP as needed -rpt ABG no longer hypercapnic (53), pH 7.28. -maintain spO2 > 88% Renal: ESRD on dialysis -c/w midodrine to maintain BP - next HD on Thursday - HD right thigh cath, 3 k bath, 3 15 time, 300 abf -nephro recs appreciated ID: possible sepsis -Blood cultures negative -Dr King following. -c/w Zosyn. Endo: hypothyroidism, DM -TSH high -c/w synthroid 25 mg po -c/w ISS, BGM F/E/N -no standing fluids -monitor lytes -Dysphagia puree Code Status: Full code DVT ppx: c/w Xarelto DISPO: transfer to medicine Visit type - Emergency Visit Emergency Visit: No - New Patient This patient is new to me today: No - Critical Care Critical Care patient: Yes Total Critical Care Time (in minutes): 37 Critical Care Statement: The care of this patient involved high complexity decision making to prevent further life threatening deterioration of the patient 's condition and/or to evaluate & treat vital organ system(s) failure or risk of failure. ATTENDING PHYSICIAN STATEMENT I saw and evaluated the patient. I reviewed the resident's note and discussed the case with the resident. I agree with the resident's findings and plan as documented. SUBJECTIVE: OBJECTIVE: ASSESSMENT AND PLAN:
[2019-03-14] MEDS ORDERED: HYDROCORTISONE 0.5% TOPICAL OINTMENT TUBE TP PRN (12:54)
--- NOTE | 2019-03-14 12:54 | PN ---
Progress Note, Physician History of Present Illness: Pt seen and examined at bedside. She is awake and alert. She tolerated HD this morning. She remains in the ICU. - Current Medication List Current Medications: Active Medications Albumin Human (Albumin Human 25%) 12.5 gm IVPB Q30M PRN PRN Reason: BP less than 90 systolic Last Admin: 03/12/19 15:20 Dose: 12.5 gm Chlorhexidine Gluconate (Hibiclens For Decolonization -) 1 applic TP HS [facility] Last Admin: 03/13/19 21:45 Dose: 1 applic Fludrocortisone Acetate (Florinef -) 0.2 mg PO DAILY [facility] Last Admin: 03/14/19 09:24 Dose: 0.2 mg Hydrocortisone Sodium Succinate (Solu-Cortef -) 25 mg IVPB BID [facility] Piperacillin Sod/Tazobactam (Sod 2.25 gm/ Dextrose) 50 mls @ 100 mls/hr IVPB Q8H-IV [facility]; Protocol Last Admin: 03/14/19 09:19 Dose: 100 mls/hr Sodium Chloride (Normal Saline -) 250 mls @ 3,000 mls/hr IV PRN PRN PRN Reason: Hypotension during Dialysis Stop: 03/14/19 16:08 Insulin Aspart (Novolog Vial Sliding Scale -) 1 vial SQ Q6H [facility]; Protocol Last Admin: 03/14/19 06:15 Dose: Not Given Levothyroxine Sodium (Synthroid -) 25 mcg PO DAILY@0700 [facility] Midodrine (Proamatine -) 10 mg PO TID-MID [facility] Last Admin: 03/14/19 09:23 Dose: 10 mg Mupirocin (Bactroban Ointment (For Decolonization) -) 1 applic NS BID [facility] Stop: 03/16/19 21:59 Last Admin: 03/14/19 09:23 Dose: 1 applic Polymyxin/Trimethoprim Sulfate (Polytrim Opthalmic Solution -) 1 drop OD Q4HWA [facility] Stop: 03/21/19 05:59 Last Admin: 03/14/19 09:31 Dose: 1 drop Rivaroxaban (Xarelto) 15 mg PO DAILY@1800 [facility] Last Admin: 03/13/19 17:37 Dose: 15 mg - Objective Vital Signs: Vital Signs Temperature 98.2 F 03/14/19 06:55 Pulse Rate 54 L 03/14/19 10:26 Respiratory Rate 18 03/14/19 10:05 Blood Pressure 117/71 03/14/19 10:05 O2 Sat by Pulse Oximetry (%) 95 03/14/19 10:26 Constitutional: Yes: Calm Eyes: Yes: Conjunctiva Clear HENT: Yes: Atraumatic Cardiovascular: Yes: S1, S2 Respiratory: Yes: On Nasal O2 Gastrointestinal: Yes: Soft Genitourinary: Yes: Incontinence Musculoskeletal: Yes: Muscle Weakness Edema: Yes Edema: LUE: Trace, RUE: Trace Neurological: Yes: Oriented Psychiatric: Yes: Oriented Labs: CBC, BMP 03/14/19 05:35 03/14/19 10:00 INR, PTT INR 1.55 (0.83-1.09) H 03/12/19 12:25 Assessment/Plan Current Medications Generic Name Dose Route Start Last Admin Trade Name Freq PRN Reason Stop Dose Admin Albumin Human 12.5 gm 03/12/19 13:17 03/12/19 15:20 Albumin Human 25% IVPB 12.5 gm Q30M PRN Administration BP less than 90 systolic Chlorhexidine Gluconate 1 applic 03/11/19 22:00 03/13/19 21:45 Hibiclens For Decolonization - TP 1 applic HS [facility] Administration Fludrocortisone Acetate 0.2 mg 03/12/19 10:00 03/14/19 09:24 Florinef - PO 0.2 mg DAILY [facility] Administration Hydrocortisone Sodium Succinate 25 mg 03/14/19 11:00 Solu-Cortef - IVPB BID [facility] Piperacillin Sod/Tazobactam 50 mls @ 100 mls/hr 03/12/19 18:00 03/14/19 09:19 Sod 2.25 gm/ Dextrose IVPB 100 mls/hr Q8H-IV [facility] Administration Protocol Sodium Chloride 250 mls @ 3,000 mls/hr 03/13/19 16:07 Normal Saline - IV 03/14/19 16:08 PRN PRN Hypotension during Dialysis Insulin Aspart 1 vial 03/11/19 19:00 03/14/19 06:15 Novolog Vial Sliding Scale - SQ Not Given Q6H [facility] Protocol Levothyroxine Sodium 25 mcg 03/15/19 07:00 Synthroid - PO DAILY@0700 [facility] Midodrine 10 mg 03/12/19 10:00 03/14/19 09:23 Proamatine - PO 10 mg TID-MID [facility] Administration Mupirocin 1 applic 03/11/19 22:00 03/14/19 09:23 Bactroban Ointment (For Decolonization) - NS 03/16/19 21:59 1 applic BID [facility] Administration Polymyxin/Trimethoprim Sulfate 1 drop 03/14/19 06:00 03/14/19 09:31 Polytrim Opthalmic Solution - OD 03/21/19 05:59 1 drop Q4HWA [facility] Administration Rivaroxaban 15 mg 03/12/19 18:00 03/13/19 17:37 Xarelto PO 15 mg DAILY@1800 [facility] Administration Impression 1. ESRD 2. shortness of breath 3. resp failure requiring bipap 4. chf 5. dvt 6. anemia 7. a-fib 8. hypothyroid 9. pleural effusion 10. hypotension Plan - HD today - pulse ox stable - discussed with daughter at bedside - cont with midodrine - next HD on Thursday - HD right thigh cath, 3 k bath, 3 15 time, 300 abf
[2019-03-14] MEDS ORDERED: traMADol HCL 50 MG TABLET PO PRN (13:00)
[2019-03-14] MEDS ORDERED: HYDROCORTISONE 0.5% TOPICAL CREAM 30 GM TUBE TP PRN (13:13)
[2019-03-14] MEDS: ACETAMINOPHEN 1000 MG/100 ML VIAL (NON FORMULARY) IVPB PRN (14:06)
[2019-03-14] MEDS ORDERED: ACETAMINOPHEN 325 MG TABLET (FP) PO ONE (15:00)
[2019-03-14] MEDS ORDERED: oxyCODONE HCL 5 MG TABLET PO ONE (15:00)
[2019-03-14] MEDS ORDERED: diphenhydrAMINE HCL 25 MG CAPSULE (FP) PO ONE (15:07)
[2019-03-14] MEDS ORDERED: ALBUMIN HUMAN 25% 12.5 GM/50 ML VIAL IVPB PRN (15:58)
[2019-03-14] MEDS: RIVAROXABAN 15 MG TABLET PO SCH (17:45)
[2019-03-14] MEDS ORDERED: INSULIN (LEVEMIR) 100 UNITS/ML UNITS SQ ONE (18:25)
[2019-03-14] MEDS ORDERED: INSULIN (NOVOLOG) ASPART 100 UNITS/ML 10ML VIAL ONE (18:26)
[2019-03-14] MEDS: CHLORHEXIDINE GLUCONATE 4% CLEANSER FOR DECOLONIZATION TP SCH (21:11)
[2019-03-14] MEDS ORDERED: MUPIROCIN 2% TOPICAL OINTMENT FOR DECOLONIZATION NS SCH ×2 (22:00)
[2019-03-15] MEDS ORDERED: DEXTROSE 5%-WATER - 50 ML IVPB ONE ×3 (01:42→18:51)
[2019-03-15] MEDS ORDERED: PIPERACILLIN/TAZOBACTAM 2.25 GM VIAL IVPB ONE ×3 (01:42→18:51)
[2019-03-15] MEDS: PIPERACILLIN/TAZOB 2.25 GM 2.25 GM in DEXTROSE 5%-WATER - 50 ML IVPB SCH ×3 (02:06→19:57)
[2019-03-15] MEDS: INSULIN SLIDING SCALE (NOVOLOG) 1 VIAL SQ SCH ×5 (02:06→19:58)
[2019-03-15] MEDS: POLYMYXIN B SULFATE/TMP 10 ML OPHTHALMIC SOLUTION OD SCH ×6 (06:18→22:08)
[2019-03-15] MEDS: LEVOTHYROXINE NA 25 MCG TABLET (FP) PO SCH (06:18)
[2019-03-15] MEDS: traMADol HCL 50 MG TABLET PO PRN (06:18)
[2019-03-15] MEDS ORDERED: LEVOTHYROXINE NA 25 MCG TABLET (FP) PO SCH (07:00)
[2019-03-15 08:37] LABS: BASO % 0.7 % (0-2.0); EOS % 0.1 % (0-4.5); HEMATOCRIT 33.2 % (32.4-45.2); HEMOGLOBIN 10.2 GM/dL (10.7-15.3); LYMPH % 23.4 % (8-40); MCH 29.4 pg (25.7-33.7); MCHC 30.8 g/dl (32.0-36.0); MEAN CELL VOLUME 95.5 fl (80-96); MEAN PLT VOLUME 8.2 fl (7.5-11.1); MONO % 6.4 % (3.8-10.2); NEUT % 69.4 % (42.8-82.8); PLATELET COUNT 82 K/MM3 (134-434); RBC 3.48 M/mm3 (3.60-5.2); RDW 18.6 % (11.6-15.6)
[2019-03-15 09:05] LABS: ALBUMIN 3.3 g/dl (3.4-5.0); BILIRUBIN,TOTAL 0.6 mg/dL (0.2-1); BLOOD UREA NITROGEN 25.2 mg/dL (7-18); CALCIUM 9.2 mg/dL (8.5-10.1); CREATININE 3.2 mg/dL (0.55-1.3); MAGNESIUM 2.1 mg/dL (1.8-2.4); PHOSPHOROUS 4.1 mg/dL (2.5-4.9); TOT PROT 6.7 g/dl (6.4-8.2)
--- NOTE | 2019-03-15 10:06 | PN ---
Progress Note (short form) - Note Progress Note: Resting in NAD. Denies shortness of breath or chest pain. No acute events overnight. OBJECTIVE: Intake & Output 03/12/19 03/13/19 03/14/19 03/15/19 23:59 23:59 23:59 23:59 Intake Total 2177 572 0862 150 Output Total 2009 0 3000 Balance -858 610 -1375 150 Weight 178 lb 156 lb 157 lb 14.4 oz Last Vital Signs Temp Pulse Resp BP Pulse Ox 98.6 F 62 20 107/49 L 100 03/15/19 06:00 03/15/19 06:00 03/15/19 06:00 03/15/19 06:00 03/15/19 08:28 Active Medications Acetaminophen (Ofirmev Injection -) 1,000 mg IVPB Q6H PRN PRN Reason: PAIN OR FEVER Last Admin: 03/14/19 14:06 Dose: 1,000 mg Albumin Human (Albumin Human 25%) 12.5 gm IVPB Q30M PRN PRN Reason: BP less than 90 systolic Chlorhexidine Gluconate (Hibiclens For Decolonization -) 1 applic TP HS [facility] Last Admin: 03/14/19 21:11 Dose: Not Given Fludrocortisone Acetate (Florinef -) 0.2 mg PO DAILY [facility] Hydrocortisone (Hytone 0.5% Cream -) 1 applic TP DAILY PRN PRN Reason: FOR ITCHING Hydrocortisone Sodium Succinate (Solu-Cortef -) 25 mg IVPB BID [facility] Last Admin: 03/14/19 22:00 Dose: 25 mg Piperacillin Sod/Tazobactam (Sod 2.25 gm/ Dextrose) 50 mls @ 100 mls/hr IVPB Q8H-IV [facility]; Protocol Last Admin: 03/15/19 02:06 Dose: 100 mls/hr Insulin Aspart (Novolog Vial Sliding Scale -) 1 vial SQ Q6H [facility]; Protocol Last Admin: 03/15/19 06:18 Dose: Not Given Levothyroxine Sodium (Synthroid -) 25 mcg PO DAILY@0700 [facility] Last Admin: 03/15/19 06:18 Dose: 25 mcg Midodrine (Proamatine -) 10 mg PO TID-MID [facility] Last Admin: 03/14/19 17:46 Dose: 10 mg Polymyxin/Trimethoprim Sulfate (Polytrim Opthalmic Solution -) 1 drop OD Q4HWA [facility] Stop: 03/21/19 05:59 Last Admin: 03/15/19 06:18 Dose: 1 drop Rivaroxaban (Xarelto) 15 mg PO DAILY@1800 [facility] Last Admin: 03/14/19 17:45 Dose: 15 mg Tramadol HCl (Ultram -) 50 mg PO Q8H PRN PRN Reason: PAIN LEVEL 7 - 10 Last Admin: 03/15/19 06:18 Dose: 50 mg Gen: NAD at rest Heart: RRR Lung: decreased breath sounds at the bases Abd: soft, nontender Ext: + UE edema Laboratory Results - last 24 hr 03/14/19 03/14/19 03/14/19 10:00 12:16 17:46 WBC RBC Hgb Hct MCV MCH MCHC RDW Plt Count MPV Absolute Neuts (auto) Neutrophils % Lymphocytes % Monocytes % Eosinophils % Basophils % Nucleated RBC % Sodium Potassium Chloride Carbon Dioxide Anion Gap BUN 11.8 Creatinine 1.6 H Est GFR (CKD-EPI)AfAm 37.19 Est GFR (CKD-EPI)NonAf 32.09 POC Glucometer 212 191 Random Glucose Calcium Phosphorus Magnesium Total Bilirubin AST ALT Alkaline Phosphatase Total Protein Albumin 03/15/19 03/15/19 03/15/19 01:49 06:16 07:06 WBC 4.0 RBC 3.48 L Hgb 10.2 L Hct 33.2 MCV 95.5 MCH 29.4 MCHC 30.8 L RDW 18.6 H Plt Count 82 L MPV 8.2 Absolute Neuts (auto) 2.8 Neutrophils % 69.4 Lymphocytes % 23.4 D Monocytes % 6.4 Eosinophils % 0.1 D Basophils % 0.7 Nucleated RBC % 3 H Sodium Potassium Chloride Carbon Dioxide Anion Gap BUN Creatinine Est GFR (CKD-EPI)AfAm Est GFR (CKD-EPI)NonAf POC Glucometer 190 136 Random Glucose Calcium Phosphorus Magnesium Total Bilirubin AST ALT Alkaline Phosphatase Total Protein Albumin 03/15/19 07:06 WBC RBC Hgb Hct MCV MCH MCHC RDW Plt Count MPV Absolute Neuts (auto) Neutrophils % Lymphocytes % Monocytes % Eosinophils % Basophils % Nucleated RBC % Sodium 137 Potassium 4.0 Chloride 100 Carbon Dioxide 28 Anion Gap 9 BUN 25.2 H Creatinine 3.2 H Est GFR (CKD-EPI)AfAm 16.09 Est GFR (CKD-EPI)NonAf 13.88 POC Glucometer Random Glucose 139 H Calcium 9.2 Phosphorus 4.1 Magnesium 2.1 Total Bilirubin 0.6 AST 18 ALT 15 Alkaline Phosphatase 107 Total Protein 6.7 Albumin 3.3 L ASSESSMENT AND PLAN: Acute on Chronic Hypoxic and Hypercapneic Respiratory Failure Suspected Pneumonia Shock - r/o Septic improving +Troponins likely Demand Ischemia Acute on Chronic Diastolic Heart Failure Atrial Fibrillation h/o DVT ESRD on HD COPD Hypothyroidism CHERISE h/o Endometrial CA - continue antibiotics - f/u cultures - taper off empiric stress dose steroids - O2 to keep spo2 >90% - NIPPV as needed - HD per renal - continue anticoagulation Dr Wiley
[2019-03-15] MEDS ORDERED: PT OWN MED DRAWER 7, Y5N ONE (11:37)
[2019-03-15] MEDS: MIDODRINE HCL 5 MG TABLET PO SCH ×3 (11:43→19:56)
[2019-03-15] MEDS: HYDROCORTISONE SOD SUCCINATE 100 MG/2 ML VIAL IVPB SCH ×2 (11:43→22:08)
[2019-03-15] MEDS: FLUDROCORTISONE ACETATE 0.1 MG TABLET (FP) PO SCH (11:47)
--- NOTE | 2019-03-15 14:17 | PN ---
Progress Note, Physician History of Present Illness: Pt seen and examined at bedside. She feels that her breathing is improved today. - Current Medication List Current Medications: Active Medications Acetaminophen (Ofirmev Injection -) 1,000 mg IVPB Q6H PRN PRN Reason: PAIN OR FEVER Last Admin: 03/14/19 14:06 Dose: 1,000 mg Albumin Human (Albumin Human 25%) 12.5 gm IVPB Q30M PRN PRN Reason: BP less than 90 systolic Chlorhexidine Gluconate (Hibiclens For Decolonization -) 1 applic TP HS [facility] Last Admin: 03/14/19 21:11 Dose: Not Given Fludrocortisone Acetate (Florinef -) 0.2 mg PO DAILY [facility] Last Admin: 03/15/19 11:47 Dose: 0.2 mg Hydrocortisone (Hytone 0.5% Cream -) 1 applic TP DAILY PRN PRN Reason: FOR ITCHING Hydrocortisone Sodium Succinate (Solu-Cortef -) 25 mg IVPB BID [facility] Last Admin: 03/15/19 11:43 Dose: 25 mg Piperacillin Sod/Tazobactam (Sod 2.25 gm/ Dextrose) 50 mls @ 100 mls/hr IVPB Q8H-IV [facility]; Protocol Last Admin: 03/15/19 12:26 Dose: 100 mls/hr Insulin Aspart (Novolog Vial Sliding Scale -) 1 vial SQ Q6H [facility]; Protocol Last Admin: 03/15/19 12:26 Dose: Not Given Levothyroxine Sodium (Synthroid -) 25 mcg PO DAILY@0700 [facility] Last Admin: 03/15/19 06:18 Dose: 25 mcg Midodrine (Proamatine -) 10 mg PO TID-MID [facility] Last Admin: 03/15/19 11:43 Dose: 10 mg Polymyxin/Trimethoprim Sulfate (Polytrim Opthalmic Solution -) 1 drop OD Q4HWA [facility] Stop: 03/21/19 05:59 Last Admin: 03/15/19 12:23 Dose: 1 drop Rivaroxaban (Xarelto) 15 mg PO DAILY@1800 [facility] Last Admin: 03/14/19 17:45 Dose: 15 mg Tramadol HCl (Ultram -) 50 mg PO Q8H PRN PRN Reason: PAIN LEVEL 7 - 10 Last Admin: 03/15/19 06:18 Dose: 50 mg - Objective Vital Signs: Vital Signs Temperature 97.9 F 03/15/19 11:41 Pulse Rate 54 L 03/15/19 11:41 Respiratory Rate 24 H 03/15/19 11:41 Blood Pressure 95/44 L 03/15/19 11:41 O2 Sat by Pulse Oximetry (%) 100 03/15/19 08:28 Constitutional: Yes: Calm Eyes: Yes: Conjunctiva Clear HENT: Yes: Atraumatic Neck: Yes: Supple Cardiovascular: Yes: S1, S2 Respiratory: Yes: On Nasal O2 Gastrointestinal: Yes: Normal Bowel Sounds, Soft, Abdomen, Obese Genitourinary: Yes: Incontinence Musculoskeletal: Yes: Muscle Weakness Edema: LUE: 1+, RUE: 1+ Neurological: Yes: Oriented Psychiatric: Yes: Oriented Labs: CBC, BMP 03/15/19 07:06 03/15/19 07:06 INR, PTT INR 1.55 (0.83-1.09) H 03/12/19 12:25 Assessment/Plan Current Medications Generic Name Dose Route Start Last Admin Trade Name Roberto PRN Reason Stop Dose Admin Acetaminophen 1,000 mg 03/14/19 13:07 03/14/19 14:06 Ofirmev Injection - IVPB 1,000 mg Q6H PRN Administration PAIN OR FEVER Albumin Human 12.5 gm 03/14/19 15:58 Albumin Human 25% IVPB Q30M PRN BP less than 90 systolic Chlorhexidine Gluconate 1 applic 03/14/19 22:00 03/14/19 21:11 Hibiclens For Decolonization - TP Not Given HS [facility] Fludrocortisone Acetate 0.2 mg 03/15/19 10:00 03/15/19 11:47 Florinef - PO 0.2 mg DAILY [facility] Administration Hydrocortisone 1 applic 03/14/19 13:13 Hytone 0.5% Cream - TP DAILY PRN FOR ITCHING Hydrocortisone Sodium Succinate 25 mg 03/14/19 11:00 03/15/19 11:43 Solu-Cortef - IVPB 25 mg BID [facility] Administration Piperacillin Sod/Tazobactam 50 mls @ 100 mls/hr 03/14/19 18:00 03/15/19 12:26 Sod 2.25 gm/ Dextrose IVPB 100 mls/hr Q8H-IV [facility] Administration Protocol Insulin Aspart 1 vial 03/14/19 19:00 03/15/19 12:26 Novolog Vial Sliding Scale - SQ Not Given Q6H [facility] Protocol Levothyroxine Sodium 25 mcg 03/15/19 07:00 03/15/19 06:18 Synthroid - PO 25 mcg DAILY@0700 [facility] Administration Midodrine 10 mg 03/14/19 18:00 03/15/19 11:43 Proamatine - PO 10 mg TID-MID [facility] Administration Polymyxin/Trimethoprim Sulfate 1 drop 03/14/19 18:00 03/15/19 12:23 Polytrim Opthalmic Solution - OD 03/21/19 05:59 1 drop Q4HWA [facility] Administration Rivaroxaban 15 mg 03/14/19 18:00 03/14/19 17:45 Xarelto PO 15 mg DAILY@1800 [facility] Administration Tramadol HCl 50 mg 03/14/19 15:13 03/15/19 06:18 Ultram - PO 50 mg Q8H PRN Administration PAIN LEVEL 7 - 10 Impression 1. ESRD 2. shortness of breath 3. resp failure requiring bipap 4. chf 5. dvt 6. anemia 7. a-fib 8. hypothyroid 9. pleural effusion 10. hypotension Plan - next HD tomorrow - renal diet - cont with midodrine - HD right thigh cath, 3 k bath, 3 15 time, 300 abf
--- NOTE | 2019-03-15 16:07 | PN ---
Progress Note, Physician Chief Complaint: Acute on Chronic Respiratory Failure ESRD Hypotension History of Present Illness: Previous notes and events reviewed awake and alert, more confused today O2 via NC hypotensive given midodrine bradycardic with HR 50s denies chest pain, c/o SOB - Current Medication List Current Medications: Active Medications Acetaminophen (Ofirmev Injection -) 1,000 mg IVPB Q6H PRN PRN Reason: PAIN OR FEVER Last Admin: 03/14/19 14:06 Dose: 1,000 mg Albumin Human (Albumin Human 25%) 12.5 gm IVPB Q30M PRN PRN Reason: BP less than 90 systolic Albumin Human (Albumin Human 25%) 12.5 gm IVPB Q30M [facility] Chlorhexidine Gluconate (Hibiclens For Decolonization -) 1 applic TP HS [facility] Last Admin: 03/14/19 21:11 Dose: Not Given Epoetin Memo (Epogen -) 5,000 unit IVPUSH ONCE ONE Stop: 03/16/19 14:18 Fludrocortisone Acetate (Florinef -) 0.2 mg PO DAILY [facility] Last Admin: 03/15/19 11:47 Dose: 0.2 mg Hydrocortisone (Hytone 0.5% Cream -) 1 applic TP DAILY PRN PRN Reason: FOR ITCHING Hydrocortisone Sodium Succinate (Solu-Cortef -) 25 mg IVPB BID [facility] Last Admin: 03/15/19 11:43 Dose: 25 mg Piperacillin Sod/Tazobactam (Sod 2.25 gm/ Dextrose) 50 mls @ 100 mls/hr IVPB Q8H-IV [facility]; Protocol Last Admin: 03/15/19 12:26 Dose: 100 mls/hr Sodium Chloride (Normal Saline -) 250 mls @ 3,000 mls/hr IV PRN PRN PRN Reason: Hypotension during Dialysis Stop: 03/16/19 14:17 Insulin Aspart (Novolog Vial Sliding Scale -) 1 vial SQ Q6H [facility]; Protocol Last Admin: 03/15/19 12:26 Dose: Not Given Levothyroxine Sodium (Synthroid -) 25 mcg PO DAILY@0700 [facility] Last Admin: 03/15/19 06:18 Dose: 25 mcg Midodrine (Proamatine -) 10 mg PO TID-MID [facility] Last Admin: 03/15/19 15:40 Dose: 10 mg Polymyxin/Trimethoprim Sulfate (Polytrim Opthalmic Solution -) 1 drop OD Q4HWA [facility] Stop: 03/21/19 05:59 Last Admin: 03/15/19 15:43 Dose: 1 drop Rivaroxaban (Xarelto) 15 mg PO DAILY@1800 [facility] Last Admin: 03/14/19 17:45 Dose: 15 mg Tramadol HCl (Ultram -) 50 mg PO Q8H PRN PRN Reason: PAIN LEVEL 7 - 10 Last Admin: 03/15/19 06:18 Dose: 50 mg - Objective Vital Signs: Vital Signs Temperature 97.7 F 03/15/19 14:20 Pulse Rate 57 L 03/15/19 14:20 Respiratory Rate 21 H 03/15/19 14:20 Blood Pressure 89/55 L 03/15/19 14:20 O2 Sat by Pulse Oximetry (%) 100 03/15/19 08:28 Constitutional: Yes: No Distress, Calm Eyes: Yes: Conjunctiva Clear HENT: Yes: Atraumatic Cardiovascular: Yes: Regular Rate and Rhythm Respiratory: Yes: Regular, Diminished, On Nasal O2, Tachypnea Gastrointestinal: Yes: Normal Bowel Sounds, Soft Genitourinary: Yes: Incontinence Musculoskeletal: Yes: Muscle Weakness Extremities: Yes: WNL Edema: No Neurological: Yes: Alert, Confusion, Pre-Existing Deficit Psychiatric: Yes: Alert Labs: CBC, BMP 03/15/19 07:06 03/15/19 07:06 INR, PTT INR 1.55 (0.83-1.09) H 03/12/19 12:25 Microbiology 03/11/19 13:55 Blood - Peripheral Venous Blood Culture - Preliminary NO GROWTH OBTAINED AFTER 96 HOURS, INCUBATION TO CONTINUE FOR 1 DAYS. 03/11/19 13:23 Blood - Peripheral Venous Blood Culture - Preliminary NO GROWTH OBTAINED AFTER 96 HOURS, INCUBATION TO CONTINUE FOR 1 DAYS. Problem List - Problems (1) Acute on chronic respiratory failure with hypercapnia Assessment/Plan: -Pulm consult -Bipap HS -O2 via NC -keep SpO2 >90% -monitor ABGs -CXR shows remains consolidation and likely small left pleural effusion that may have slightly decreased since prior exam, right hemithorax with suggestion of interval betrer aeration of RLL, likely persistent small right pleural effusion -repeat CXR reviewed Code(s): J96.22 - ACUTE AND CHRONIC RESPIRATORY FAILURE WITH HYPERCAPNIA (2) COPD (chronic obstructive pulmonary disease) Assessment/Plan: -Pulm consult -Bipap HS -O2 via NC -keep SpO2 >90% -monitor ABGs Code(s): J44.9 - CHRONIC OBSTRUCTIVE PULMONARY DISEASE, UNSPECIFIED Qualifiers: COPD type: unspecified COPD Qualified Code(s): J44.9 - Chronic obstructive pulmonary disease, unspecified (3) ESRD on hemodialysis Assessment/Plan: -Renal consult -HD on scheduled days -BUN/Cr 25.2/3.2 -monitor renal function Code(s): N18.6 - END STAGE RENAL DISEASE; Z99.2 - DEPENDENCE ON RENAL DIALYSIS (4) Hypotension Assessment/Plan: -Midodrine -tele monitoring -trop 0.14, 0.12 Code(s): I95.9 - HYPOTENSION, UNSPECIFIED Qualifiers: Hypotension type: unspecified hypotension type Qualified Code(s): I95.9 - Hypotension, unspecified (5) Afib Assessment/Plan: -Xarelto Code(s): I48.91 - UNSPECIFIED ATRIAL FIBRILLATION (6) Hypothyroid Assessment/Plan: -Levothyroxine Code(s): E03.9 - HYPOTHYROIDISM, UNSPECIFIED (7) Acute metabolic encephalopathy Assessment/Plan: -resolving -BC neg Code(s): G93.41 - METABOLIC ENCEPHALOPATHY (8) Functional quadriplegia Assessment/Plan: -fall precaution Code(s): R53.2 - FUNCTIONAL QUADRIPLEGIA Assessment/Plan see problem list
[2019-03-15] MEDS ORDERED: INSULIN (NOVOLOG) ASPART 100 UNITS/ML 10ML VIAL ONE (18:46)
[2019-03-15] MEDS: RIVAROXABAN 15 MG TABLET PO SCH (19:56)
--- NOTE | 2019-03-15 21:36 | HOSP ---
Subjective - Review of Symptoms Events since last encounter: Hospitalist Encounter Notified by RN that the patient is hypotensive and symptomatic. Was asked to assess her and her repeat EKG ordered by Dr. Garcia. Arrived to bedside, patient is alert and oriented to name- at baseline, she reports dizziness when being turned for care. PE performed see EMR Plan: Will review EKG Continue to monitor Possible transfer to Telemetry if condition worsens, ok to stay on [address] at present Neurological: Yes: Other (Dizziness) Physical Examination Vital Signs: Vital Signs Temperature 98.1 F 03/15/19 18:00 Pulse Rate 60 03/15/19 21:00 Respiratory Rate 20 03/15/19 21:00 Blood Pressure 106/52 L 03/15/19 21:00 O2 Sat by Pulse Oximetry (%) 100 03/15/19 16:16 Constitutional: Yes: Anxious Eyes: Yes: Conjunctiva Clear, EOM Intact HENT: Yes: WNL, Atraumatic, Normocephalic Neck: Yes: WNL, Supple, Trachea Midline Cardiovascular: Yes: Pulse Irregular, S1, S2 Respiratory: Yes: Cough, Diminished, On Nasal O2 Gastrointestinal: Yes: Soft, Abdomen, Obese Edema: Yes Peripheral Pulses WNL: Yes Neurological: Yes: Confusion ...Motor Strength: WNL Labs: CBC, BMP 03/15/19 07:06 03/15/19 07:06 Hospitalist Encounter Outcome: Repeat BP 106/54, per RN EKG reviewed- Afib slow ventricular response 49 BPM, no change compared to prior study
[2019-03-15] MEDS: CHLORHEXIDINE GLUCONATE 4% CLEANSER FOR DECOLONIZATION TP SCH (22:06)
[2019-03-16] MEDS ORDERED: PIPERACILLIN/TAZOBACTAM 2.25 GM VIAL IVPB ONE ×3 (01:48→17:48)
[2019-03-16] MEDS ORDERED: DEXTROSE 5%-WATER - 50 ML IVPB ONE ×3 (01:49→17:48)
[2019-03-16] MEDS: PIPERACILLIN/TAZOB 2.25 GM 2.25 GM in DEXTROSE 5%-WATER - 50 ML IVPB SCH ×3 (02:23→18:11)
[2019-03-16] MEDS: INSULIN SLIDING SCALE (NOVOLOG) 1 VIAL SQ SCH ×4 (02:23→19:05)
[2019-03-16] MEDS: LEVOTHYROXINE NA 25 MCG TABLET (FP) PO SCH (06:28)
[2019-03-16] MEDS: POLYMYXIN B SULFATE/TMP 10 ML OPHTHALMIC SOLUTION OD SCH ×5 (06:29→22:38)
[2019-03-16] MEDS ORDERED: SODIUM CHLORIDE 250 ML IV PRN (08:00)
[2019-03-16] MEDS ORDERED: EPOETIN ALFA 3,000 UNIT, EPOETIN ALFA 2,000 UNIT IVPUSH ONE (08:00)
[2019-03-16] MEDS: ALBUMIN HUMAN 25% 12.5 GM/50 ML VIAL IVPB SCH ×4 (08:30→10:42)
[2019-03-16 08:51] LABS: HEMATOCRIT 35.8 % (32.4-45.2); HEMOGLOBIN 10.7 GM/dL (10.7-15.3); MCH 29.1 pg (25.7-33.7); MCHC 29.8 g/dl (32.0-36.0); MEAN CELL VOLUME 97.6 fl (80-96); MEAN PLT VOLUME 8.7 fl (7.5-11.1); PLATELET COUNT 87 K/MM3 (134-434); RBC 3.67 M/mm3 (3.60-5.2); RDW 18.6 % (11.6-15.6); WHITE BLOOD COUNT 3.8 K/mm3 (4.0-10.0)
[2019-03-16 09:17] LABS: ALBUMIN 3.2 g/dl (3.4-5.0); BILIRUBIN,TOTAL 0.6 mg/dL (0.2-1); BLOOD UREA NITROGEN 32.8 mg/dL (7-18); CREATININE 3.9 mg/dL (0.55-1.3); POTASSIUM 5.5 mmol/L (3.5-5.1); TOT PROT 6.6 g/dl (6.4-8.2)
--- NOTE | 2019-03-16 11:04 | PN ---
Progress Note, Physician Chief Complaint: Acute on Chronic Respiratory Failure ESRD Hypotension History of Present Illness: Previous notes and events reviewed awake and alert examined in dialysis O2 via NC patient was hypotensive with dizziness during the night, EKG showed Afib with slow ventricular response BP better 116/76 in dialysis - Current Medication List Current Medications: Active Medications Acetaminophen (Ofirmev Injection -) 1,000 mg IVPB Q6H PRN PRN Reason: PAIN OR FEVER Last Admin: 03/14/19 14:06 Dose: 1,000 mg Albumin Human (Albumin Human 25%) 12.5 gm IVPB Q30M PRN PRN Reason: BP less than 90 systolic Chlorhexidine Gluconate (Hibiclens For Decolonization -) 1 applic TP HS [facility] Last Admin: 03/15/19 22:06 Dose: 1 applic Fludrocortisone Acetate (Florinef -) 0.2 mg PO DAILY [facility] Last Admin: 03/15/19 11:47 Dose: 0.2 mg Hydrocortisone (Hytone 0.5% Cream -) 1 applic TP DAILY PRN PRN Reason: FOR ITCHING Hydrocortisone Sodium Succinate (Solu-Cortef -) 25 mg IVPB BID [facility] Last Admin: 03/15/19 22:08 Dose: 25 mg Piperacillin Sod/Tazobactam (Sod 2.25 gm/ Dextrose) 50 mls @ 100 mls/hr IVPB Q8H-IV [facility]; Protocol Last Admin: 03/16/19 02:23 Dose: 100 mls/hr Insulin Aspart (Novolog Vial Sliding Scale -) 1 vial SQ Q6H [facility]; Protocol Last Admin: 03/16/19 06:27 Dose: 1 unit Levothyroxine Sodium (Synthroid -) 25 mcg PO DAILY@0700 [facility] Last Admin: 03/16/19 06:28 Dose: 25 mcg Midodrine (Proamatine -) 10 mg PO TID-MID [facility] Last Admin: 03/15/19 19:56 Dose: 10 mg Polymyxin/Trimethoprim Sulfate (Polytrim Opthalmic Solution -) 1 drop OD Q4HWA [facility] Stop: 03/21/19 05:59 Last Admin: 03/16/19 06:29 Dose: 1 drop Rivaroxaban (Xarelto) 15 mg PO DAILY@1800 [facility] Last Admin: 03/15/19 19:56 Dose: 15 mg Tramadol HCl (Ultram -) 50 mg PO Q8H PRN PRN Reason: PAIN LEVEL 7 - 10 Last Admin: 03/15/19 06:18 Dose: 50 mg - Objective Vital Signs: Vital Signs Temperature 97.8 F 03/16/19 08:10 Pulse Rate 72 03/16/19 10:42 Respiratory Rate 18 03/16/19 10:42 Blood Pressure 116/65 03/16/19 10:42 O2 Sat by Pulse Oximetry (%) 100 03/15/19 21:00 Constitutional: Yes: No Distress, Calm Eyes: Yes: Conjunctiva Clear HENT: Yes: Atraumatic Cardiovascular: Yes: Regular Rate and Rhythm Respiratory: Yes: Regular, CTA Bilaterally Gastrointestinal: Yes: Normal Bowel Sounds, Soft Genitourinary: Yes: Incontinence Musculoskeletal: Yes: Muscle Weakness Extremities: Yes: WNL Edema: Yes (RUE) Neurological: Yes: Alert, Confusion, Pre-Existing Deficit Psychiatric: Yes: Alert Labs: CBC, BMP 03/16/19 08:15 03/16/19 08:15 INR, PTT INR 1.55 (0.83-1.09) H 03/12/19 12:25 Microbiology 03/11/19 13:55 Blood - Peripheral Venous Blood Culture - Preliminary NO GROWTH OBTAINED AFTER 96 HOURS, INCUBATION TO CONTINUE FOR 1 DAYS. 03/11/19 13:23 Blood - Peripheral Venous Blood Culture - Preliminary NO GROWTH OBTAINED AFTER 96 HOURS, INCUBATION TO CONTINUE FOR 1 DAYS. Problem List - Problems (1) Acute on chronic respiratory failure with hypercapnia Assessment/Plan: -Pulm consult -Bipap HS -O2 via NC -keep SpO2 >90% -monitor ABGs -CXR shows remains consolidation and likely small left pleural effusion that may have slightly decreased since prior exam, right hemithorax with suggestion of interval betrer aeration of RLL, likely persistent small right pleural effusion -repeat CXR reviewed Code(s): J96.22 - ACUTE AND CHRONIC RESPIRATORY FAILURE WITH HYPERCAPNIA (2) COPD (chronic obstructive pulmonary disease) Assessment/Plan: -Pulm on board -Bipap HS -O2 via NC -keep SpO2 >90% -monitor ABGs Code(s): J44.9 - CHRONIC OBSTRUCTIVE PULMONARY DISEASE, UNSPECIFIED Qualifiers: COPD type: unspecified COPD Qualified Code(s): J44.9 - Chronic obstructive pulmonary disease, unspecified (3) ESRD on hemodialysis Assessment/Plan: -Renal consult -HD on scheduled days -BUN/Cr 32.8/3.9 -monitor renal function Code(s): N18.6 - END STAGE RENAL DISEASE; Z99.2 - DEPENDENCE ON RENAL DIALYSIS (4) Hypotension Assessment/Plan: -Midodrine -tele monitoring -trop 0.14, 0.12 Code(s): I95.9 - HYPOTENSION, UNSPECIFIED Qualifiers: Hypotension type: unspecified hypotension type Qualified Code(s): I95.9 - Hypotension, unspecified (5) Afib Assessment/Plan: -Xarelto -Cardiology consult due to episode of bradycardia Code(s): I48.91 - UNSPECIFIED ATRIAL FIBRILLATION (6) Hypothyroid Assessment/Plan: -Levothyroxine Code(s): E03.9 - HYPOTHYROIDISM, UNSPECIFIED (7) Acute metabolic encephalopathy Assessment/Plan: -resolving -BC neg Code(s): G93.41 - METABOLIC ENCEPHALOPATHY (8) Functional quadriplegia Assessment/Plan: -fall precaution Code(s): R53.2 - FUNCTIONAL QUADRIPLEGIA Assessment/Plan see problem list
--- NOTE | 2019-03-16 11:35 | EKG ---
Test Reason : Blood Pressure : / mmHG Vent. Rate : 058 BPM Atrial Rate : 047 BPM P-R Int : 000 ms QRS Dur : 098 ms QT Int : 422 ms P-R-T Axes : 000 150 049 degrees QTc Int : 414 ms ATRIAL FIBRILLATION WITH SLOW VENTRICULAR RESPONSE WITH PREMATURE VENTRICULAR OR ABERRANTLY CONDUCTED COMPLEXES POSSIBLE RIGHT VENTRICULAR HYPERTROPHY ANTEROLATERAL INFARCT (CITED ON OR BEFORE 28-JAN-2019) ABNORMAL ECG WHEN COMPARED WITH ECG OF 11-MAR-2019 13:35, PREVIOUS ECG HAS UNDETERMINED RHYTHM, NEEDS REVIEW QUESTIONABLE CHANGE IN INITIAL FORCES OF ANTEROLATERAL LEADS ST NO LONGER ELEVATED IN ANTEROLATERAL LEADS NONSPECIFIC T WAVE ABNORMALITY HAS REPLACED INVERTED T WAVES IN LATERAL LEADS Confirmed by JASVIR LOYOLA, SERG ([id number]) on 03/16/2019 11:35:28 AM Referred By: Confirmed By:SERG TAY MD
[2019-03-16] MEDS: FLUDROCORTISONE ACETATE 0.1 MG TABLET (FP) PO SCH (12:38)
[2019-03-16] MEDS: MIDODRINE HCL 5 MG TABLET PO SCH ×3 (12:38→18:11)
[2019-03-16] MEDS: HYDROCORTISONE SOD SUCCINATE 100 MG/2 ML VIAL IVPB SCH ×2 (12:39→22:37)
--- NOTE | 2019-03-16 13:08 | PN ---
Progress Note, Physician History of Present Illness: PULMONARY ALERT,FEELING BETTER,SOB IMPROVING - Current Medication List Current Medications: Active Medications Acetaminophen (Ofirmev Injection -) 1,000 mg IVPB Q6H PRN PRN Reason: PAIN OR FEVER Last Admin: 03/14/19 14:06 Dose: 1,000 mg Albumin Human (Albumin Human 25%) 12.5 gm IVPB Q30M PRN PRN Reason: BP less than 90 systolic Chlorhexidine Gluconate (Hibiclens For Decolonization -) 1 applic TP HS [facility] Last Admin: 03/15/19 22:06 Dose: 1 applic Fludrocortisone Acetate (Florinef -) 0.2 mg PO DAILY [facility] Last Admin: 03/16/19 12:38 Dose: 0.2 mg Hydrocortisone (Hytone 0.5% Cream -) 1 applic TP DAILY PRN PRN Reason: FOR ITCHING Hydrocortisone Sodium Succinate (Solu-Cortef -) 25 mg IVPB BID [facility] Last Admin: 03/16/19 12:39 Dose: 25 mg Piperacillin Sod/Tazobactam (Sod 2.25 gm/ Dextrose) 50 mls @ 100 mls/hr IVPB Q8H-IV [facility]; Protocol Last Admin: 03/16/19 12:38 Dose: 100 mls/hr Insulin Aspart (Novolog Vial Sliding Scale -) 1 vial SQ Q6H [facility]; Protocol Last Admin: 03/16/19 06:27 Dose: 1 unit Levothyroxine Sodium (Synthroid -) 25 mcg PO DAILY@0700 [facility] Last Admin: 03/16/19 06:28 Dose: 25 mcg Midodrine (Proamatine -) 10 mg PO TID-MID [facility] Last Admin: 03/16/19 12:38 Dose: 10 mg Polymyxin/Trimethoprim Sulfate (Polytrim Opthalmic Solution -) 1 drop OD Q4HWA [facility] Stop: 03/21/19 05:59 Last Admin: 03/16/19 12:38 Dose: Not Given Rivaroxaban (Xarelto) 15 mg PO DAILY@1800 [facility] Last Admin: 03/15/19 19:56 Dose: 15 mg Tramadol HCl (Ultram -) 50 mg PO Q8H PRN PRN Reason: PAIN LEVEL 7 - 10 Last Admin: 03/15/19 06:18 Dose: 50 mg - Objective Vital Signs: Vital Signs Temperature 97.8 F 03/16/19 08:10 Pulse Rate 89 03/16/19 11:33 Respiratory Rate 18 03/16/19 11:33 Blood Pressure 121/72 03/16/19 11:33 O2 Sat by Pulse Oximetry (%) 100 03/15/19 21:00 Constitutional: Yes: Well Nourished, Calm Eyes: Yes: WNL HENT: Yes: WNL Neck: Yes: WNL Cardiovascular: Yes: Pulse Irregular, S1, S2 Respiratory: Yes: Diminished Gastrointestinal: Yes: Normal Bowel Sounds, Soft Extremities: Yes: WNL Edema: Yes Edema: LLE: Trace, RLE: Trace Labs: CBC, BMP 03/16/19 08:15 03/16/19 08:15 INR, PTT INR 1.55 (0.83-1.09) H 03/12/19 12:25 Problem List - Problems (1) Acute on chronic respiratory failure with hypoxia and hypercapnia Code(s): J96.21 - ACUTE AND CHRONIC RESPIRATORY FAILURE WITH HYPOXIA; J96.22 - ACUTE AND CHRONIC RESPIRATORY FAILURE WITH HYPERCAPNIA (2) ESRD on hemodialysis Code(s): N18.6 - END STAGE RENAL DISEASE; Z99.2 - DEPENDENCE ON RENAL DIALYSIS (3) Acute exacerbation of congestive heart failure Code(s): I50.9 - HEART FAILURE, UNSPECIFIED Qualifiers: Heart failure type: unspecified Qualified Code(s): I50.9 - Heart failure, unspecified (4) Functional quadriplegia Code(s): R53.2 - FUNCTIONAL QUADRIPLEGIA (5) Afib Code(s): I48.91 - UNSPECIFIED ATRIAL FIBRILLATION (6) Shortness of breath Code(s): R06.02 - SHORTNESS OF BREATH Assessment/Plan ASSESSMENT AND PLAN: Acute on Chronic Hypoxic and Hypercapneic Respiratory Failure improving r/o Pneumonia Shock - improved +Troponins likely Demand Ischemia Acute on Chronic Diastolic Heart Failure Atrial Fibrillation h/o DVT ESRD on HD COPD Hypothyroidism CHERISE h/o Endometrial Ca - continue antibiotics - O2 to keep spo2 >90% - BiPAP as needed - monitor ABG - HD per renal - anticoagulation DR TURPIN
[2019-03-16] MEDS: traMADol HCL 50 MG TABLET PO PRN ×2 (13:12→22:38)
--- NOTE | 2019-03-16 13:57 | PN ---
Progress Note, Physician History of Present Illness: Pt seen and examined at beside. She tolerated HD today. She feels that breathing has improved. - Current Medication List Current Medications: Active Medications Acetaminophen (Ofirmev Injection -) 1,000 mg IVPB Q6H PRN PRN Reason: PAIN OR FEVER Last Admin: 03/14/19 14:06 Dose: 1,000 mg Albumin Human (Albumin Human 25%) 12.5 gm IVPB Q30M PRN PRN Reason: BP less than 90 systolic Chlorhexidine Gluconate (Hibiclens For Decolonization -) 1 applic TP HS [facility] Last Admin: 03/15/19 22:06 Dose: 1 applic Fludrocortisone Acetate (Florinef -) 0.2 mg PO DAILY [facility] Last Admin: 03/16/19 12:38 Dose: 0.2 mg Hydrocortisone (Hytone 0.5% Cream -) 1 applic TP DAILY PRN PRN Reason: FOR ITCHING Hydrocortisone Sodium Succinate (Solu-Cortef -) 25 mg IVPB BID [facility] Last Admin: 03/16/19 12:39 Dose: 25 mg Piperacillin Sod/Tazobactam (Sod 2.25 gm/ Dextrose) 50 mls @ 100 mls/hr IVPB Q8H-IV [facility]; Protocol Last Admin: 03/16/19 12:38 Dose: 100 mls/hr Insulin Aspart (Novolog Vial Sliding Scale -) 1 vial SQ Q6H [facility]; Protocol Last Admin: 03/16/19 06:27 Dose: 1 unit Levothyroxine Sodium (Synthroid -) 25 mcg PO DAILY@0700 [facility] Last Admin: 03/16/19 06:28 Dose: 25 mcg Midodrine (Proamatine -) 10 mg PO TID-MID [facility] Last Admin: 03/16/19 12:38 Dose: 10 mg Polymyxin/Trimethoprim Sulfate (Polytrim Opthalmic Solution -) 1 drop OD Q4HWA [facility] Stop: 03/21/19 05:59 Last Admin: 03/16/19 12:38 Dose: Not Given Rivaroxaban (Xarelto) 15 mg PO DAILY@1800 [facility] Last Admin: 03/15/19 19:56 Dose: 15 mg Tramadol HCl (Ultram -) 50 mg PO Q8H PRN PRN Reason: PAIN LEVEL 7 - 10 Last Admin: 03/16/19 13:12 Dose: 50 mg - Objective Vital Signs: Vital Signs Temperature 97.8 F 03/16/19 08:10 Pulse Rate 89 03/16/19 11:33 Respiratory Rate 18 03/16/19 11:33 Blood Pressure 121/72 03/16/19 11:33 O2 Sat by Pulse Oximetry (%) 100 03/15/19 21:00 Constitutional: Yes: Calm Eyes: Yes: Conjunctiva Clear HENT: Yes: Atraumatic Neck: Yes: Supple Cardiovascular: Yes: S1, S2 Respiratory: Yes: On Nasal O2 Gastrointestinal: Yes: Soft, Abdomen, Obese Musculoskeletal: Yes: Muscle Weakness Edema: Yes Edema: LUE: Trace, RUE: Trace Integumentary: Yes: Skin Tear Neurological: Yes: Oriented Psychiatric: Yes: Oriented Labs: CBC, BMP 03/16/19 08:15 03/16/19 08:15 INR, PTT INR 1.55 (0.83-1.09) H 03/12/19 12:25 Assessment/Plan Current Medications Generic Name Dose Route Start Last Admin Trade Name Jagjitq PRN Reason Stop Dose Admin Acetaminophen 1,000 mg 03/14/19 13:07 03/14/19 14:06 Ofirmev Injection - IVPB 1,000 mg Q6H PRN Administration PAIN OR FEVER Albumin Human 12.5 gm 03/14/19 15:58 Albumin Human 25% IVPB Q30M PRN BP less than 90 systolic Chlorhexidine Gluconate 1 applic 03/14/19 22:00 03/15/19 22:06 Hibiclens For Decolonization - TP 1 applic HS [facility] Administration Fludrocortisone Acetate 0.2 mg 03/15/19 10:00 03/16/19 12:38 Florinef - PO 0.2 mg DAILY [facility] Administration Hydrocortisone 1 applic 03/14/19 13:13 Hytone 0.5% Cream - TP DAILY PRN FOR ITCHING Hydrocortisone Sodium Succinate 25 mg 03/14/19 11:00 03/16/19 12:39 Solu-Cortef - IVPB 25 mg BID [facility] Administration Piperacillin Sod/Tazobactam 50 mls @ 100 mls/hr 03/14/19 18:00 03/16/19 12:38 Sod 2.25 gm/ Dextrose IVPB 100 mls/hr Q8H-IV [facility] Administration Protocol Insulin Aspart 1 vial 03/14/19 19:00 10/02/19 06:27 Novolog Vial Sliding Scale - SQ 1 unit Q6H [facility] Administration Protocol Levothyroxine Sodium 25 mcg 03/15/19 07:00 03/16/19 06:28 Synthroid - PO 25 mcg DAILY@0700 [facility] Administration Midodrine 10 mg 03/14/19 18:00 03/16/19 12:38 Proamatine - PO 10 mg TID-MID [facility] Administration Polymyxin/Trimethoprim Sulfate 1 drop 03/14/19 18:00 03/16/19 12:38 Polytrim Opthalmic Solution - OD 03/21/19 05:59 Not Given Q4HWA [facility] Rivaroxaban 15 mg 03/14/19 18:00 03/15/19 19:56 Xarelto PO 15 mg DAILY@1800 [facility] Administration Tramadol HCl 50 mg 03/14/19 15:13 03/16/19 13:12 Ultram - PO 50 mg Q8H PRN Administration PAIN LEVEL 7 - 10 Impression 1. ESRD 2. shortness of breath 3. resp failure requiring bipap 4. chf 5. dvt 6. anemia 7. a-fib 8. hypothyroid 9. pleural effusion 10. hypotension Plan - HD today - she tolerated UF - cont Mididrone - contacted HD unit, recommend hd 4 times per week for volume removal - renal diet - HD right thigh cath, 3 k bath, 3 15 time, 300 abf
[2019-03-16] MEDS ORDERED: EPOETIN ALFA 2,000 UNIT/1 ML VIAL IVPUSH ONE ×2 (14:17)
[2019-03-16] MEDS ORDERED: INSULIN (NOVOLOG) ASPART 100 UNITS/ML 10ML VIAL ONE (14:59)
--- NOTE | 2019-03-16 14:59 | EKG ---
Test Reason : Blood Pressure : / mmHG Vent. Rate : 055 BPM Atrial Rate : 267 BPM P-R Int : 000 ms QRS Dur : 102 ms QT Int : 656 ms P-R-T Axes : 000 159 058 degrees QTc Int : 627 ms SUSPECT ARM LEAD REVERSAL, INTERPRETATION ASSUMES NO REVERSAL ATRIAL FIBRILLATION WITH SLOW VENTRICULAR RESPONSE WITH PREMATURE VENTRICULAR OR ABERRANTLY CONDUCTED COMPLEXES POSSIBLE RIGHT VENTRICULAR HYPERTROPHY CANNOT RULE OUT INFERIOR INFARCT , AGE UNDETERMINED ANTEROLATERAL INFARCT (CITED ON OR BEFORE 28-JAN-2019) PROLONGED QT ABNORMAL ECG WHEN COMPARED WITH ECG OF 15-MAR-2019 16:57, QT HAS LENGTHENED Confirmed by JASVIR LOYOLA, SERG ([id number]) on 03/16/2019 2:59:33 PM Referred By: Confirmed By:SERG TAY MD
--- NOTE | 2019-03-16 16:09 | CON.CARD ---
Consult Consult Specialty:: Cardiology Referred by:: Dr. Camargo Reason for Consultation:: bradycardia - History of Present Illness Chief Complaint: hypotension History of Present Illness: 73 year old woman with a pmh ESRD on HD, DMII, COPD, DVTs, orthostatic hypotension, chronic combined systolic/diastolic/right sided CHF, chronic Afib with h/o slow ventricular response thus not on AV oseas blockers, multiple admissions for acute on chronic respiratory failure, pna again admitted for acute on chronic respiratory failure. has been intermittently hypotensive especially with HD thus on midodrine. Yesterday noted to be hypotensive, EKG was done and showed Afib at 49bpm. pt seen and examined today. main complaint is pain on skin of lower back and rectum. denies any current lightheadedness, dizziness. no chest pain or sob currently. Echo 12/01: nl LV function, RV mod to severely dilated, RV function mod to severely reduced, mod dilated LA/RA, RVSP 40-50 mmHg, mod TR Echo 01/2019 - LV function slightly worsened, 45-50%, LA mod dilated, RV mod to severely dilated, RV function mod to severely reduced, mild MR, mild to mod TR, RA mod to severely dilated, mobile echodensity in pleural space - History Source History Provided By: Patient, Medical Record Limitations to Obtaining History: Poor Historian - Past Medical History Cardio/Vascular: Yes: AFIB, CHF, Deep Vein Thrombosis Pulmonary: Yes: Bronchitis, Pneumonia, Previously Intubated, Pulmonary Embolus, Sleep Apnea Gastrointestinal: Yes: GERD Renal/: Yes: Renal Failure, Hemodialysis ...: No Psych: Yes: Depression Endocrine: Yes: Diabetes Mellitus, Hypothyroidism - Alcohol/Substance Use Hx Alcohol Use: No History of Substance Use: reports: None - Smoking History Smoking history: Unknown if ever smoked Have you smoked in the past 12 months: No - Social History ADL: Support Services History of Recent Travel: No Home Medications - Allergies Allergies/Adverse Reactions: Allergies Allergy/AdvReac Type Severity Reaction Status Date / Time No Known Allergies Allergy Unverified 01/19/19 11:43 - Home Medications Home Medications: Ambulatory Orders Acetaminophen [8Hr Muscle Aches-Pain] 650 mg PO PRN PRN 02/19/19 Ammonium Lactate Lotion [Lac-Hydrin 12] 1 applic TP BID 02/19/19 Bacitracin - [Bacitracin Topical Ointment -] 1 applic TP BID 02/19/19 Buspirone HCl [Buspar -] 5 mg PO BID 02/19/19 Guaifenesin/Dextromethorphan [Robitussin Cough-Chest Dm Liq] 237 ml PO PRN PRN 02/19/19 Hydrocortisone Acetate [Anusol Hc Suppository -] 25 mg RC PRN PRN 02/19/19 Ipratropium/Albuterol Sulfate [Iprat-Albut 0.5-3(2.5) mg/3 ml] 3 ml IH Q4H PRN 02/19/19 Lidocaine/Prilocaine Cream [Lidocaine-Prilocaine Cream -] 1 applic TP Q4H Nystatin Ointment [Mycostatin Ointment -] 1 applic TP BID 02/19/19 Ondansetron [Zofran -] 4 mg PO PRN PRN 02/19/19 Pantoprazole Sodium [Protonix] 40 mg PO DAILY 02/19/19 Sennosides [Senna] 8.6 mg PO HS 02/19/19 Sertraline HCl [Zoloft -] 75 mg PO DAILY 02/19/19 Silver Sulfadiazine [Silvadene] 1 applic TP DAILY 02/19/19 Vitamin B Comp W-C [Nephro-Evert -] 1 tablet PO DAILY 02/19/19 Zinc Oxide 20% Topical Oint 454 gm TD BID 02/19/19 Zinc Sulfate [Orazinc -] 220 mg PO DAILY 02/19/19 Buspirone HCl [Buspar -] 5 mg PO BID tablet 02/23/19 Fludrocortisone Acetate [Florinef -] 0.2 mg PO DAILY tablet 02/23/19 Melatonin 5 mg PO HS tab 02/23/19 Midodrine HCl [Proamatine -] 10 mg PO Q8H PRN tablet 02/23/19 Rivaroxaban [Xarelto] 15 mg PO DAILY@1800 tablet 02/23/19 Calcitriol [Rocaltrol -] 0.75 mcg PO DAILY 03/11/19 Digoxin 125 mcg PO DAILY 03/11/19 Phenylephrine 0.25%/Starch [Anusol Suppository -] 1 each RC QID PRN 03/11/19 Vitamin B Comp W-C [Nephro-Evert -] 1 tablet PO DAILY 03/11/19 Review of Systems - Review of Systems Constitutional: reports: Malaise, Weakness. denies: No Symptoms, Chills, Diaphoresis, Fever, Lethargy, Loss of Appetite, Night Sweats, Unintentional Wgt. Loss, Other Eyes: denies: No Symptoms, Blind Spots, Blurred Vision, Double Vision, Eye Pain , Floaters, Photophobia, Recent Change in Vision, Other HENT: denies: No Symptoms, Difficult Swallowing, Ear Discharge, Ear Pain, Epistaxis, Gingival Bleeding, Hearing Loss, Mouth Swelling, Nasal Congestion, Ocular Prosthesis, Throat Pain, Toothache, Ringing in Ears, Other Neck: denies: No Symptoms, Decreased ROM, Lumps, Pain on Movement, Stiffness, Swollen Glands, Tenderness, Other Cardiovascular: reports: Shortness of Breath. denies: No Symptoms, Chest Pain, Edema, Palpitations, Other Respiratory: reports: SOB, SOB on Exertion. denies: No Symptoms, Cough, Exercise Intolerance, Hemoptysis, Orthopnea, PND, Snoring, Wheezing, Other Gastrointestinal: denies: No Symptoms, Abdominal Pain, Bloating, Constipation, Diarrhea, Dysphagia, Indigestion, Melena, Nausea, Rectal Bleeding, Vomiting, Vomiting Blood, Other Genitourinary: denies: No Symptoms, Burning, Discharge, Dysuria, Flank Pain, Frequency, Hematuria, Incontinence, Lesions, Menses, Pain, Testicular Mass, Testicular Pain, Testicular Swelling, Urgency, Vaginal Bleeding, Other Breasts: denies: No Symptoms Reported, See HPI, Breast Implants, Discharge from Nipple, Lumps, Pain, Skin Changes, Other Musculoskeletal: reports: Muscle Weakness. denies: No Symptoms, Back Pain, Crepitus, Decreased ROM, Extremity Pain, Joint Pain, Joint Swelling, Muscle Pain , Muscle Cramps, Other Integumentary: reports: Pruritis, Rash. denies: No Symptoms, Blister, Bruising , Change in Color, Eczema, Erythema, Incision, Lesions, Lump, Pallor, Wound, Other Neurological: denies: No Symptoms, Change in LOC, Change in Speech, Confusion, Dizziness, Headache, Incoordination, Numbness, Parasthesia, Pre-Existing Deficit , Seizure, Syncope, Tremors, Unsteady Gait, Weakness, Other Endocrine: denies: No Symptoms, Excessive Sweating, Flushing, Increased Hunger, Increased Thirst, Intolerance to Cold, Intolerance to Heat, Unexplained Weight Gain, Unexplained Weight Loss, Other Hematology/Lymphatic: denies: No Symptoms, Easily Bruised, Excessive Bleeding, Swollen Glands, Other Psychiatric: denies: No Symptoms, Altered Sleep Pattern, Anxiety, Depression, Hallucinations, Panic, Paranoia, Suicidal, Other Vital Signs: Vital Signs Temperature 97.7 F 03/16/19 14:48 Pulse Rate 60 03/16/19 14:48 Respiratory Rate 20 03/16/19 14:48 Blood Pressure 100/48 L 03/16/19 14:48 O2 Sat by Pulse Oximetry (%) 97 03/16/19 14:18 Constitutional: Yes: No Distress, Calm Eyes: Yes: Conjunctiva Clear, EOM Intact HENT: Yes: Atraumatic, Normocephalic Neck: Yes: Supple, Trachea Midline Respiratory: Yes: Regular, Diminished, On Nasal O2. No: Rales, Rhonchi, SOB, Wheezes Gastrointestinal: Yes: Normal Bowel Sounds, Soft Cardiovascular: Yes: Pulse Irregular. No: Regular Rate and Rhythm, Bradycardia , Tachycardia, Gallop, Rub, Varicosities JVD: No Carotid Bruit: No PMI: Non-Displaced Heart Sounds: Yes: S1, S2. No: Split S2, S3, S4, Clicks, Gallop, Rub, Bruit Murmur: No: Systolic Murmur, Diastolic Murmur Musculoskeletal: Yes: Muscle Weakness Peripheral Pulses WNL: Yes Neurological: Yes: Alert, Oriented Psychiatric: Yes: Alert, Oriented - Other Data Labs, Other Data: CBC, BMP 03/16/19 08:15 03/16/19 08:15 INR, PTT INR 1.55 (0.83-1.09) H 03/12/19 12:25 ekgs afib with slow VR 50s, pvcs, low voltage, rvh Echo: Report Reviewed Imaging - Results Chest X-ray: Report Reviewed, Image Reviewed EKG: Report Reviewed, Image Reviewed Other: Report Reviewed, Image Reviewed Assessment/Plan 73 year old woman with a pmh ESRD on HD, DMII, COPD, DVTs, orthostatic hypotension, chronic combined systolic/diastolic/right sided CHF, chronic Afib with h/o slow ventricular response thus not on AV oseas blockers, multiple admissions for acute on chronic respiratory failure, pna again admitted for acute on chronic respiratory failure. has been intermittently hypotensive especially with HD thus on midodrine. Yesterday noted to be hypotensive, EKG was done and showed Afib at 49bpm. pt seen and examined today. main complaint is pain on skin of lower back and rectum. denies any current lightheadedness, dizziness. no chest pain or sob currently. Echo 12/01: nl LV function, RV mod to severely dilated, RV function mod to severely reduced, mod dilated LA/RA, RVSP 40-50 mmHg, mod TR Echo 01/2019 - LV function slightly worsened, 45-50%, LA mod dilated, RV mod to severely dilated, RV function mod to severely reduced, mild MR, mild to mod TR, RA mod to severely dilated, mobile echodensity in pleural space Bradycardia-h/o chronic Afib with periods of mild bradycardia 40-50s -ekgs from 03/15 showed HR 50s -no indication for pacing at this time -cont to avoid AV oseas blockers -on Xarelto reduced dose for Afib CAD-recent NSTEMI, felt to be type II IL secondary to CHF, pulm HTN, resp failure, hypotension -not a candidate for invasive work up thus treated conservatively Acute on chronic resp failure -volume removal with HD as needed Hypotension -chronic orthostatic hypotension and hypotension with HD -cont midodrine and florinef Will see as needed. Please call with additional questions.
[2019-03-16] MEDS: RIVAROXABAN 15 MG TABLET PO SCH (18:11)
[2019-03-16] MEDS: CHLORHEXIDINE GLUCONATE 4% CLEANSER FOR DECOLONIZATION TP SCH (22:37)
[2019-03-17] MEDS ORDERED: PIPERACILLIN/TAZOBACTAM 2.25 GM VIAL IVPB ONE ×3 (01:20→18:05)
[2019-03-17] MEDS ORDERED: DEXTROSE 5%-WATER - 50 ML IVPB ONE ×3 (01:20→18:05)
[2019-03-17] MEDS: PIPERACILLIN/TAZOB 2.25 GM 2.25 GM in DEXTROSE 5%-WATER - 50 ML IVPB SCH ×3 (01:33→18:39)
[2019-03-17] MEDS: INSULIN SLIDING SCALE (NOVOLOG) 1 VIAL SQ SCH ×5 (01:34→18:10)
[2019-03-17] MEDS: POLYMYXIN B SULFATE/TMP 10 ML OPHTHALMIC SOLUTION OD SCH ×5 (06:33→22:14)
[2019-03-17] MEDS: LEVOTHYROXINE NA 25 MCG TABLET (FP) PO SCH (06:34)
[2019-03-17 07:40] LABS: HEMATOCRIT 35.2 % (32.4-45.2); HEMOGLOBIN 10.8 GM/dL (10.7-15.3); MCH 29.5 pg (25.7-33.7); MCHC 30.6 g/dl (32.0-36.0); MEAN CELL VOLUME 96.2 fl (80-96); MEAN PLT VOLUME 8.8 fl (7.5-11.1); PLATELET COUNT 95 K/MM3 (134-434); RBC 3.65 M/mm3 (3.60-5.2); RDW 18.5 % (11.6-15.6); WHITE BLOOD COUNT 3.9 K/mm3 (4.0-10.0)
[2019-03-17 08:17] LABS: ALBUMIN 3.8 g/dl (3.4-5.0); BILIRUBIN,TOTAL 0.6 mg/dL (0.2-1); BLOOD UREA NITROGEN 23.1 mg/dL (7-18); CALCIUM 8.8 mg/dL (8.5-10.1); CREATININE 3.3 mg/dL (0.55-1.3); POTASSIUM 3.9 mmol/L (3.5-5.1); TOT PROT 6.9 g/dl (6.4-8.2)
[2019-03-17] MEDS: HYDROCORTISONE SOD SUCCINATE 100 MG/2 ML VIAL IVPB SCH (10:00)
--- NOTE | 2019-03-17 10:08 | PN ---
Progress Note (short form) - Note Progress Note: Resting in NAD. Denies shortness of breath or chest pain. No acute events overnight. OBJECTIVE: Intake & Output 03/14/19 03/15/19 03/16/19 03/17/19 23:59 23:59 23:59 23:59 Intake Total 9484 978 1057 300 Output Total 3000 3000 Balance -1375 400 -1710 300 Weight 157 lb 14.4 oz 171 lb 3 oz Last Vital Signs Temp Pulse Resp BP Pulse Ox 97.3 F L 95 H 20 106/63 96 03/17/19 06:00 03/17/19 06:00 03/17/19 06:00 03/17/19 06:00 03/17/19 08:10 Active Medications Acetaminophen (Ofirmev Injection -) 1,000 mg IVPB Q6H PRN PRN Reason: PAIN OR FEVER Last Admin: 03/14/19 14:06 Dose: 1,000 mg Albumin Human (Albumin Human 25%) 12.5 gm IVPB Q30M PRN PRN Reason: BP less than 90 systolic Chlorhexidine Gluconate (Hibiclens For Decolonization -) 1 applic TP HS [facility] Last Admin: 03/16/19 22:37 Dose: 1 applic Fludrocortisone Acetate (Florinef -) 0.2 mg PO DAILY [facility] Last Admin: 03/16/19 12:38 Dose: 0.2 mg Hydrocortisone (Hytone 0.5% Cream -) 1 applic TP DAILY PRN PRN Reason: FOR ITCHING Hydrocortisone Sodium Succinate (Solu-Cortef -) 25 mg IVPB BID [facility] Last Admin: 03/16/19 22:37 Dose: 25 mg Piperacillin Sod/Tazobactam (Sod 2.25 gm/ Dextrose) 50 mls @ 100 mls/hr IVPB Q8H-IV [facility]; Protocol Last Admin: 03/17/19 01:33 Dose: 100 mls/hr Insulin Aspart (Novolog Vial Sliding Scale -) 1 vial SQ Q6H [facility]; Protocol Last Admin: 03/17/19 06:34 Dose: Not Given Levothyroxine Sodium (Synthroid -) 25 mcg PO DAILY@0700 [facility] Last Admin: 03/17/19 06:34 Dose: 25 mcg Midodrine (Proamatine -) 10 mg PO TID-MID [facility] Last Admin: 03/16/19 18:11 Dose: 10 mg Polymyxin/Trimethoprim Sulfate (Polytrim Opthalmic Solution -) 1 drop OD Q4HWA [facility] Stop: 03/21/19 05:59 Last Admin: 03/17/19 06:33 Dose: 1 drop Rivaroxaban (Xarelto) 15 mg PO DAILY@1800 [facility] Last Admin: 03/16/19 18:11 Dose: 15 mg Tramadol HCl (Ultram -) 50 mg PO Q8H PRN PRN Reason: PAIN LEVEL 7 - 10 Last Admin: 03/16/19 22:38 Dose: 50 mg Gen: NAD at rest Heart: RRR Lung: decreased breath sounds at the bases Abd: soft, nontender Ext: + UE edema Laboratory Results - last 24 hr 03/16/19 03/16/19 03/17/19 14:09 19:02 01:31 WBC RBC Hgb Hct MCV MCH MCHC RDW Plt Count MPV Sodium Potassium Chloride Carbon Dioxide Anion Gap BUN Creatinine Est GFR (CKD-EPI)AfAm Est GFR (CKD-EPI)NonAf POC Glucometer 209 250 147 Random Glucose Calcium Total Bilirubin AST ALT Alkaline Phosphatase Total Protein Albumin 03/17/19 03/17/19 03/17/19 06:30 06:30 06:31 WBC 3.9 L RBC 3.65 Hgb 10.8 Hct 35.2 MCV 96.2 H MCH 29.5 MCHC 30.6 L RDW 18.5 H Plt Count 95 L MPV 8.8 Sodium 137 Potassium 3.9 Chloride 99 Carbon Dioxide 29 Anion Gap 8 BUN 23.1 H Creatinine 3.3 H Est GFR (CKD-EPI)AfAm 15.50 Est GFR (CKD-EPI)NonAf 13.37 POC Glucometer 138 Random Glucose 130 H Calcium 8.8 Total Bilirubin 0.6 AST 7 L ALT 14 Alkaline Phosphatase 95 Total Protein 6.9 Albumin 3.8 ASSESSMENT AND PLAN: Acute on Chronic Hypoxic and Hypercapneic Respiratory Failure Suspected Pneumonia Shock - r/o Septic improving +Troponins likely Demand Ischemia Acute on Chronic Diastolic Heart Failure Atrial Fibrillation h/o DVT ESRD on HD COPD Hypothyroidism CHERISE h/o Endometrial CA - ABX per ID - f/u cultures - Wean empiric stress dose steroids to OD - O2 to keep spo2 >90% - NIPPV as needed - HD per renal - continue anticoagulation Dr Wiley
[2019-03-17] MEDS: MIDODRINE HCL 5 MG TABLET PO SCH ×3 (10:51→18:18)
[2019-03-17] MEDS: FLUDROCORTISONE ACETATE 0.1 MG TABLET (FP) PO SCH (10:51)
[2019-03-17] MEDS ORDERED: PT OWN MED DRAWER 7, Y5N ONE ×3 (10:54→20:01)
--- NOTE | 2019-03-17 11:55 | PN ---
Progress Note, Physician Chief Complaint: Acute on Chronic Respiratory Failure ESRD Hypotension History of Present Illness: Previous notes and events reviewed awake and alert NAD loose stools reported~stool cultures, O&P afebrile no leukocytosis - Current Medication List Current Medications: Active Medications Acetaminophen (Ofirmev Injection -) 1,000 mg IVPB Q6H PRN PRN Reason: PAIN OR FEVER Last Admin: 03/14/19 14:06 Dose: 1,000 mg Albumin Human (Albumin Human 25%) 12.5 gm IVPB Q30M PRN PRN Reason: BP less than 90 systolic Chlorhexidine Gluconate (Hibiclens For Decolonization -) 1 applic TP HS [facility] Last Admin: 03/16/19 22:37 Dose: 1 applic Fludrocortisone Acetate (Florinef -) 0.2 mg PO DAILY [facility] Last Admin: 03/17/19 10:51 Dose: 0.2 mg Hydrocortisone (Hytone 0.5% Cream -) 1 applic TP DAILY PRN PRN Reason: FOR ITCHING Hydrocortisone Sodium Succinate (Solu-Cortef -) 25 mg IVPB DAILY [facility] Piperacillin Sod/Tazobactam (Sod 2.25 gm/ Dextrose) 50 mls @ 100 mls/hr IVPB Q8H-IV [facility]; Protocol Last Admin: 03/17/19 01:33 Dose: 100 mls/hr Insulin Aspart (Novolog Vial Sliding Scale -) 1 vial SQ Q6H [facility]; Protocol Last Admin: 03/17/19 06:34 Dose: Not Given Levothyroxine Sodium (Synthroid -) 25 mcg PO DAILY@0700 [facility] Last Admin: 03/17/19 06:34 Dose: 25 mcg Midodrine (Proamatine -) 10 mg PO TID-MID [facility] Last Admin: 03/17/19 10:51 Dose: 10 mg Polymyxin/Trimethoprim Sulfate (Polytrim Opthalmic Solution -) 1 drop OD Q4HWA [facility] Stop: 03/21/19 05:59 Last Admin: 03/17/19 11:32 Dose: 1 drop Rivaroxaban (Xarelto) 15 mg PO DAILY@1800 [facility] Last Admin: 03/16/19 18:11 Dose: 15 mg Tramadol HCl (Ultram -) 50 mg PO Q8H PRN PRN Reason: PAIN LEVEL 7 - 10 Last Admin: 03/16/19 22:38 Dose: 50 mg - Objective Vital Signs: Vital Signs Temperature 97.7 F 03/17/19 10:48 Pulse Rate 59 L 03/17/19 10:48 Respiratory Rate 24 H 03/17/19 10:48 Blood Pressure 92/57 L 03/17/19 10:48 O2 Sat by Pulse Oximetry (%) 96 03/17/19 08:10 Constitutional: Yes: No Distress, Calm Eyes: Yes: Conjunctiva Clear HENT: Yes: Atraumatic Cardiovascular: Yes: Regular Rate and Rhythm Respiratory: Yes: Regular, CTA Bilaterally Gastrointestinal: Yes: Normal Bowel Sounds, Soft Musculoskeletal: Yes: Muscle Weakness Extremities: Yes: WNL Edema: Yes (RUE) Neurological: Yes: Alert, Pre-Existing Deficit Psychiatric: Yes: Alert Labs: CBC, BMP 03/17/19 06:30 03/17/19 06:30 INR, PTT INR 1.55 (0.83-1.09) H 03/12/19 12:25 Microbiology 03/11/19 13:55 Blood - Peripheral Venous Blood Culture - Final NO GROWTH AFTER 5 DAYS INCUBATION 03/11/19 13:23 Blood - Peripheral Venous Blood Culture - Final NO GROWTH AFTER 5 DAYS INCUBATION Problem List - Problems (1) Acute on chronic respiratory failure with hypercapnia Assessment/Plan: -Pulm consult -Bipap HS -O2 via NC -keep SpO2 >90% -monitor ABGs -CXR shows remains consolidation and likely small left pleural effusion that may have slightly decreased since prior exam, right hemithorax with suggestion of interval betrer aeration of RLL, likely persistent small right pleural effusion -repeat CXR reviewed Code(s): J96.22 - ACUTE AND CHRONIC RESPIRATORY FAILURE WITH HYPERCAPNIA (2) COPD (chronic obstructive pulmonary disease) Assessment/Plan: -Pulm on board -Bipap HS -O2 via NC -keep SpO2 >90% -monitor ABGs -Hydrocortisone Sod Succinate Daily Code(s): J44.9 - CHRONIC OBSTRUCTIVE PULMONARY DISEASE, UNSPECIFIED Qualifiers: COPD type: unspecified COPD Qualified Code(s): J44.9 - Chronic obstructive pulmonary disease, unspecified (3) ESRD on hemodialysis Assessment/Plan: -Renal consult -HD on scheduled days -BUN/Cr 23.3/3.1 -monitor renal function Code(s): N18.6 - END STAGE RENAL DISEASE; Z99.2 - DEPENDENCE ON RENAL DIALYSIS (4) Hypotension Assessment/Plan: -Midodrine -tele monitoring -trop 0.14, 0.12 Code(s): I95.9 - HYPOTENSION, UNSPECIFIED Qualifiers: Hypotension type: unspecified hypotension type Qualified Code(s): I95.9 - Hypotension, unspecified (5) Afib Assessment/Plan: -Xarelto -Cardiology consult due to episode of bradycardia Code(s): I48.91 - UNSPECIFIED ATRIAL FIBRILLATION (6) Hypothyroid Assessment/Plan: -Levothyroxine Code(s): E03.9 - HYPOTHYROIDISM, UNSPECIFIED (7) Acute metabolic encephalopathy Assessment/Plan: -resolving -BC neg Code(s): G93.41 - METABOLIC ENCEPHALOPATHY (8) Functional quadriplegia Assessment/Plan: -fall precaution Code(s): R53.2 - FUNCTIONAL QUADRIPLEGIA Assessment/Plan see problem list when off IV steroids begin DC planning
[2019-03-17] MEDS ORDERED: HYDROCORTISONE SOD SUCCINATE 100 MG/2 ML VIAL IVPB ONE (14:45)
--- NOTE | 2019-03-17 15:03 | PN ---
Progress Note, Physician History of Present Illness: Pt seen and examined at bedside. She is awake and alert. She feels that her breathing is comfortable. - Current Medication List Current Medications: Active Medications Acetaminophen (Ofirmev Injection -) 1,000 mg IVPB Q6H PRN PRN Reason: PAIN OR FEVER Last Admin: 03/14/19 14:06 Dose: 1,000 mg Albumin Human (Albumin Human 25%) 12.5 gm IVPB Q30M PRN PRN Reason: BP less than 90 systolic Chlorhexidine Gluconate (Hibiclens For Decolonization -) 1 applic TP HS [facility] Last Admin: 03/16/19 22:37 Dose: 1 applic Fludrocortisone Acetate (Florinef -) 0.2 mg PO DAILY [facility] Last Admin: 03/17/19 10:51 Dose: 0.2 mg Hydrocortisone (Hytone 0.5% Cream -) 1 applic TP DAILY PRN PRN Reason: FOR ITCHING Hydrocortisone Sodium Succinate (Solu-Cortef -) 25 mg IVPB DAILY [facility] Piperacillin Sod/Tazobactam (Sod 2.25 gm/ Dextrose) 50 mls @ 100 mls/hr IVPB Q8H-IV [facility]; Protocol Last Admin: 03/17/19 12:50 Dose: 100 mls/hr Insulin Aspart (Novolog Vial Sliding Scale -) 1 vial SQ Q6H [facility]; Protocol Last Admin: 03/17/19 13:00 Dose: Not Given Levothyroxine Sodium (Synthroid -) 25 mcg PO DAILY@0700 [facility] Last Admin: 03/17/19 06:34 Dose: 25 mcg Midodrine (Proamatine -) 10 mg PO TID-MID [facility] Last Admin: 03/17/19 14:58 Dose: 10 mg Polymyxin/Trimethoprim Sulfate (Polytrim Opthalmic Solution -) 1 drop OD Q4HWA [facility] Stop: 03/21/19 05:59 Last Admin: 03/17/19 11:32 Dose: 1 drop Rivaroxaban (Xarelto) 15 mg PO DAILY@1800 [facility] Last Admin: 03/16/19 18:11 Dose: 15 mg Tramadol HCl (Ultram -) 50 mg PO Q8H PRN PRN Reason: PAIN LEVEL 7 - 10 Last Admin: 03/16/19 22:38 Dose: 50 mg - Objective Vital Signs: Vital Signs Temperature 97.7 F 03/17/19 10:48 Pulse Rate 59 L 03/17/19 10:48 Respiratory Rate 24 H 03/17/19 10:48 Blood Pressure 92/57 L 03/17/19 10:48 O2 Sat by Pulse Oximetry (%) 96 03/17/19 08:10 Constitutional: Yes: Calm Eyes: Yes: Conjunctiva Clear HENT: Yes: Atraumatic Neck: Yes: Supple Cardiovascular: Yes: S1, S2 Respiratory: Yes: On Nasal O2 Gastrointestinal: Yes: Soft, Abdomen, Obese Genitourinary: Yes: Incontinence Musculoskeletal: Yes: Muscle Weakness Edema: Yes Edema: LUE: 1+, RUE: 1+ Neurological: Yes: Oriented Psychiatric: Yes: Oriented Labs: CBC, BMP 03/17/19 06:30 03/17/19 06:30 INR, PTT INR 1.55 (0.83-1.09) H 03/12/19 12:25 Assessment/Plan Current Medications Generic Name Dose Route Start Last Admin Trade Name Freq PRN Reason Stop Dose Admin Acetaminophen 1,000 mg 03/14/19 13:07 03/14/19 14:06 Ofirmev Injection - IVPB 1,000 mg Q6H PRN Administration PAIN OR FEVER Albumin Human 12.5 gm 03/14/19 15:58 Albumin Human 25% IVPB Q30M PRN BP less than 90 systolic Chlorhexidine Gluconate 1 applic 03/14/19 22:00 03/16/19 22:37 Hibiclens For Decolonization - TP 1 applic HS [facility] Administration Fludrocortisone Acetate 0.2 mg 03/15/19 10:00 03/17/19 10:51 Florinef - PO 0.2 mg DAILY [facility] Administration Hydrocortisone 1 applic 03/14/19 13:13 Hytone 0.5% Cream - TP DAILY PRN FOR ITCHING Hydrocortisone Sodium Succinate 25 mg 03/18/19 10:00 Solu-Cortef - IVPB DAILY [facility] Piperacillin Sod/Tazobactam 50 mls @ 100 mls/hr 03/14/19 18:00 03/17/19 12:50 Sod 2.25 gm/ Dextrose IVPB 100 mls/hr Q8H-IV [facility] Administration Protocol Insulin Aspart 1 vial 03/14/19 19:00 03/17/19 13:00 Novolog Vial Sliding Scale - SQ Not Given Q6H [facility] Protocol Levothyroxine Sodium 25 mcg 03/15/19 07:00 03/17/19 06:34 Synthroid - PO 25 mcg DAILY@0700 [facility] Administration Midodrine 10 mg 03/14/19 18:00 03/17/19 14:58 Proamatine - PO 10 mg TID-MID [facility] Administration Polymyxin/Trimethoprim Sulfate 1 drop 03/14/19 18:00 03/17/19 11:32 Polytrim Opthalmic Solution - OD 03/21/19 05:59 1 drop Q4HWA [facility] Administration Rivaroxaban 15 mg 03/14/19 18:00 03/16/19 18:11 Xarelto PO 15 mg DAILY@1800 [facility] Administration Tramadol HCl 50 mg 03/14/19 15:13 03/16/19 22:38 Ultram - PO 50 mg Q8H PRN Administration PAIN LEVEL 7 - 10 Impression 1. ESRD 2. shortness of breath 3. resp failure requiring bipap 4. chf 5. dvt 6. anemia 7. a-fib 8. hypothyroid 9. pleural effusion 10. hypotension Plan - HD tomorrow - cont Mididrone - renal diet - HD right thigh cath, 3 k bath, 3 15 time, 300 abf
[2019-03-17 17:36] VITALS: BMI 31.2
[2019-03-17] MEDS ORDERED: INSULIN (NOVOLOG) ASPART 100 UNITS/ML 10ML VIAL ONE ×2 (18:04→18:49)
[2019-03-17] MEDS: RIVAROXABAN 15 MG TABLET PO SCH (18:18)
[2019-03-17] MEDS: ACETAMINOPHEN 1000 MG/100 ML VIAL (NON FORMULARY) IVPB PRN (22:13)
[2019-03-17] MEDS: CHLORHEXIDINE GLUCONATE 4% CLEANSER FOR DECOLONIZATION TP SCH (22:14)
[2019-03-18] MEDS ORDERED: PIPERACILLIN/TAZOBACTAM 2.25 GM VIAL IVPB ONE ×2 (01:32→10:14)
[2019-03-18] MEDS ORDERED: DEXTROSE 5%-WATER - 50 ML IVPB ONE ×2 (01:33→10:14)
[2019-03-18] MEDS: PIPERACILLIN/TAZOB 2.25 GM 2.25 GM in DEXTROSE 5%-WATER - 50 ML IVPB SCH ×2 (03:05→10:29)
[2019-03-18] MEDS: LEVOTHYROXINE NA 25 MCG TABLET (FP) PO SCH (06:42)
[2019-03-18] MEDS: INSULIN SLIDING SCALE (NOVOLOG) 1 VIAL SQ SCH ×4 (06:44→18:05)
[2019-03-18] MEDS: POLYMYXIN B SULFATE/TMP 10 ML OPHTHALMIC SOLUTION OD SCH ×5 (06:44→21:30)
[2019-03-18 09:04] LABS: HEMATOCRIT 35.5 % (32.4-45.2); MCH 29.6 pg (25.7-33.7); MCHC 30.9 g/dl (32.0-36.0); MEAN CELL VOLUME 95.9 fl (80-96); MEAN PLT VOLUME 8.7 fl (7.5-11.1); PLATELET COUNT 113 K/MM3 (134-434); RDW 18.6 % (11.6-15.6); WHITE BLOOD COUNT 4.3 K/mm3 (4.0-10.0)
[2019-03-18] MEDS: HYDROCORTISONE SOD SUCCINATE 100 MG/2 ML VIAL IVPB SCH (10:27)
[2019-03-18] MEDS: MIDODRINE HCL 5 MG TABLET PO SCH ×3 (10:28→17:57)
[2019-03-18] MEDS: FLUDROCORTISONE ACETATE 0.1 MG TABLET (FP) PO SCH (10:29)
[2019-03-18] MEDS ORDERED: SODIUM CHLORIDE 250 ML IV PRN (11:26)
[2019-03-18] MEDS ORDERED: EPOETIN ALFA 3,000 UNIT, EPOETIN ALFA 2,000 UNIT IVPUSH ONE (11:30)
[2019-03-18 12:05] LABS: BLOOD UREA NITROGEN 33.1 mg/dL (7-18); CALCIUM 8.8 mg/dL (8.5-10.1); POTASSIUM 4.3 mmol/L (3.5-5.1)
--- NOTE | 2019-03-18 12:52 | DS ---
Physical Examination Vital Signs: Vital Signs Temperature 98.4 F 03/18/19 10:00 Pulse Rate 67 03/18/19 10:00 Respiratory Rate 20 03/18/19 10:00 Blood Pressure 112/33 L 03/18/19 10:00 O2 Sat by Pulse Oximetry (%) 99 03/18/19 08:54 Findings/Remarks: DAUGHTER BEDSIDE WILL DC BACK TO SNF TODAY Constitutional: Yes: Mild Distress Cardiovascular: Yes: Pulse Irregular Respiratory: Yes: On Nasal O2 Gastrointestinal: Yes: Soft Renal/: Yes: Incontinence, Other Edema: Yes Integumentary: Yes: Bruising, Venous Stasis Changes Wound/Incision: Yes: Open to air ...Motor Strength: LLE, RLE Psychiatric: Yes: Other Labs: CBC, BMP 03/18/19 08:41 03/18/19 08:41 Discharge Summary Problems reviewed: Yes Reason For Visit: END STAGE RENAL DISEASE ON HEMODIALYSIS Current Active Problems Acute exacerbation of congestive heart failure (Acute) Acute metabolic encephalopathy (Acute) Acute on chronic respiratory failure with hypercapnia (Acute) Acute on chronic respiratory failure with hypoxia and hypercapnia (Acute) COPD (chronic obstructive pulmonary disease) (Acute) ESRD on hemodialysis (Acute) Functional quadriplegia (Acute) Hypotension (Acute) Hypoxia (Acute) Severe obesity (BMI >= 40) (Acute) Procedures: Principal: CXR/LABS Other Procedures: HD Hospital Course: ADMITTED FLUID OVERLOAD, RESP DISTRESS HYPERCAPNEA, TREATED 02 SUPPORT, PULM AND RENAL WORKUP HD GIVEN Health Concerns: YES, FLUID OVERLOADING, INCREASE HD Plan of Treatment: INCREASE HD 4 DAYS WEEK Goals: SNF FOR HD/REHAB Condition: Fair - Instructions Diet, Activity, Other Instructions: RENAL INCREASE HD 4 X WEEK 02 SUPPORT JANES SUN DAILY Referrals: Roxanne Molina MD [Staff Physician] - Disposition: ASSISTED FACILITY - Home Medications Comprehensive Discharge Medication List: Ambulatory Orders Acetaminophen [8Hr Muscle Aches-Pain] 650 mg PO PRN PRN 02/19/19 Ammonium Lactate Lotion [Lac-Hydrin 12] 1 applic TP BID 02/19/19 Bacitracin - [Bacitracin Topical Ointment -] 1 applic TP BID 02/19/19 Buspirone HCl [Buspar -] 5 mg PO BID 02/19/19 Guaifenesin/Dextromethorphan [Robitussin Cough-Chest Dm Liq] 237 ml PO PRN PRN 02/19/19 Hydrocortisone Acetate [Anusol Hc Suppository -] 25 mg RC PRN PRN 02/19/19 Ipratropium/Albuterol Sulfate [Iprat-Albut 0.5-3(2.5) mg/3 ml] 3 ml IH Q4H PRN 02/19/19 Lidocaine/Prilocaine Cream [Lidocaine-Prilocaine Cream -] 1 applic TP Q4H Nystatin Ointment [Mycostatin Ointment -] 1 applic TP BID 02/19/19 Ondansetron [Zofran -] 4 mg PO PRN PRN 02/19/19 Pantoprazole Sodium [Protonix] 40 mg PO DAILY 02/19/19 Sennosides [Senna] 8.6 mg PO HS 02/19/19 Sertraline HCl [Zoloft -] 75 mg PO DAILY 02/19/19 Silver Sulfadiazine [Silvadene] 1 applic TP DAILY 02/19/19 Vitamin B Comp W-C [Nephro-Evert -] 1 tablet PO DAILY 02/19/19 Zinc Oxide 20% Topical Oint 454 gm TD BID 02/19/19 Zinc Sulfate [Orazinc -] 220 mg PO DAILY 02/19/19 Buspirone HCl [Buspar -] 5 mg PO BID tablet 02/23/19 Fludrocortisone Acetate [Florinef -] 0.2 mg PO DAILY tablet 02/23/19 Melatonin 5 mg PO HS tab 02/23/19 Midodrine HCl [Proamatine -] 10 mg PO Q8H PRN tablet 02/23/19 Rivaroxaban [Xarelto] 15 mg PO DAILY@1800 tablet 02/23/19 Calcitriol [Calcitriol -] 0.75 mcg PO DAILY 03/11/19 Digoxin 125 mcg PO DAILY 03/11/19 Phenylephrine 0.25%/Starch [Anusol Suppository -] 1 each RC QID PRN 03/11/19 Vitamin B Comp W-C [Nephro-Evert -] 1 tablet PO DAILY 03/11/19 Hydrocortisone 0.5% Cream [Hytone 0.5% Cream -] 1 applic TP DAILY PRN tube 10/01 Insulin Sliding Scale [Novolog Vial Sliding Scale -] 1 vial SQ Q6H units Levothyroxine [Synthroid -] 25 mcg PO DAILY@0700 tablet 03/18/19 Polymyxin B Sulfate/Tmp [Polytrim Opthalmic Solution -] 1 drop OD Q4HWA drops 03/18/19 Prednisone 5 mg PO DAILY #3 tablet 03/18/19 traMADol HCL [Ultram -] 50 mg PO Q8H PRN tablet MDD 3 03/18/19 Prescription Drug Monitoring Program (I-STOP) results: I-STOP not reviewed
[2019-03-18] MEDS: ALBUMIN HUMAN 25% 12.5 GM/50 ML VIAL IVPB SCH ×4 (13:30→15:00)
[2019-03-18] MEDS ORDERED: EPOETIN ALFA 2,000 UNIT/1 ML VIAL IVPUSH ONE (15:03)
--- NOTE | 2019-03-18 15:13 | PN ---
Progress Note, Physician History of Present Illness: Pt seen and examined at bedside. She is awake and appears comfortable. She is tolerating HD. - Current Medication List Current Medications: Active Medications Acetaminophen (Ofirmev Injection -) 1,000 mg IVPB Q6H PRN PRN Reason: PAIN OR FEVER Last Admin: 03/17/19 22:13 Dose: 1,000 mg Albumin Human (Albumin Human 25%) 12.5 gm IVPB Q30M PRN PRN Reason: BP less than 90 systolic Albumin Human (Albumin Human 25%) 12.5 gm IVPB Q30M [facility] Chlorhexidine Gluconate (Hibiclens For Decolonization -) 1 applic TP HS [facility] Last Admin: 03/17/19 22:14 Dose: 1 applic Fludrocortisone Acetate (Florinef -) 0.2 mg PO DAILY [facility] Last Admin: 03/18/19 10:29 Dose: 0.2 mg Hydrocortisone (Hytone 0.5% Cream -) 1 applic TP DAILY PRN PRN Reason: FOR ITCHING Hydrocortisone Sodium Succinate (Solu-Cortef -) 25 mg IVPB DAILY [facility] Last Admin: 03/18/19 10:27 Dose: 25 mg Piperacillin Sod/Tazobactam (Sod 2.25 gm/ Dextrose) 50 mls @ 100 mls/hr IVPB Q8H-IV [facility]; Protocol Last Admin: 03/18/19 10:29 Dose: 100 mls/hr Insulin Aspart (Novolog Vial Sliding Scale -) 1 vial SQ Q6H [facility]; Protocol Last Admin: 03/18/19 13:05 Dose: 1 unit Levothyroxine Sodium (Synthroid -) 25 mcg PO DAILY@0700 [facility] Last Admin: 03/18/19 06:42 Dose: 25 mcg Midodrine (Proamatine -) 10 mg PO TID-MID [facility] Last Admin: 03/18/19 10:28 Dose: 10 mg Polymyxin/Trimethoprim Sulfate (Polytrim Opthalmic Solution -) 1 drop OD Q4HWA [facility] Stop: 03/21/19 05:59 Last Admin: 03/18/19 10:30 Dose: 1 drop Rivaroxaban (Xarelto) 15 mg PO DAILY@1800 [facility] Last Admin: 03/17/19 18:18 Dose: 15 mg Tramadol HCl (Ultram -) 50 mg PO Q8H PRN PRN Reason: PAIN LEVEL 7 - 10 Last Admin: 03/16/19 22:38 Dose: 50 mg - Objective Vital Signs: Vital Signs Temperature 97.5 F L 03/18/19 15:01 Pulse Rate 77 03/18/19 15:01 Respiratory Rate 20 03/18/19 15:01 Blood Pressure 91/51 L 03/18/19 15:01 O2 Sat by Pulse Oximetry (%) 99 03/18/19 08:54 Constitutional: Yes: Calm Eyes: Yes: Conjunctiva Clear HENT: Yes: Atraumatic Neck: Yes: Supple Cardiovascular: Yes: S1, S2 Respiratory: Yes: CTA Bilaterally Gastrointestinal: Yes: Normal Bowel Sounds, Soft Genitourinary: Yes: Incontinence Musculoskeletal: Yes: Muscle Weakness Edema: LUE: Trace, RUE: Trace Neurological: Yes: Oriented Psychiatric: Yes: Oriented Labs: CBC, BMP 03/18/19 08:41 03/18/19 08:41 INR, PTT INR 1.55 (0.83-1.09) H 03/12/19 12:25 Problem List - Problems (1) ESRD on hemodialysis Code(s): N18.6 - END STAGE RENAL DISEASE; Z99.2 - DEPENDENCE ON RENAL DIALYSIS (2) Functional quadriplegia Code(s): R53.2 - FUNCTIONAL QUADRIPLEGIA Assessment/Plan Current Medications Generic Name Dose Route Start Last Admin Trade Name Freq PRN Reason Stop Dose Admin Acetaminophen 1,000 mg 03/14/19 13:07 03/17/19 22:13 Ofirmev Injection - IVPB 1,000 mg Q6H PRN Administration PAIN OR FEVER Albumin Human 12.5 gm 03/14/19 15:58 Albumin Human 25% IVPB Q30M PRN BP less than 90 systolic Albumin Human 12.5 gm 03/18/19 11:30 Albumin Human 25% IVPB Q30M [facility] Chlorhexidine Gluconate 1 applic 03/14/19 22:00 03/17/19 22:14 Hibiclens For Decolonization - TP 1 applic HS [facility] Administration Fludrocortisone Acetate 0.2 mg 03/15/19 10:00 03/18/19 10:29 Florinef - PO 0.2 mg DAILY [facility] Administration Hydrocortisone 1 applic 03/14/19 13:13 Hytone 0.5% Cream - TP DAILY PRN FOR ITCHING Hydrocortisone Sodium Succinate 25 mg 10/04/19 10:00 03/18/19 10:27 Solu-Cortef - IVPB 25 mg DAILY [facility] Administration Piperacillin Sod/Tazobactam 50 mls @ 100 mls/hr 03/14/19 18:00 03/18/19 10:29 Sod 2.25 gm/ Dextrose IVPB 100 mls/hr Q8H-IV [facility] Administration Protocol Insulin Aspart 1 vial 03/14/19 19:00 03/18/19 13:05 Novolog Vial Sliding Scale - SQ 1 unit Q6H [facility] Administration Protocol Levothyroxine Sodium 25 mcg 03/15/19 07:00 03/18/19 06:42 Synthroid - PO 25 mcg DAILY@0700 [facility] Administration Midodrine 10 mg 03/14/19 18:00 03/18/19 10:28 Proamatine - PO 10 mg TID-MID [facility] Administration Polymyxin/Trimethoprim Sulfate 1 drop 03/14/19 18:00 03/18/19 10:30 Polytrim Opthalmic Solution - OD 03/21/19 05:59 1 drop Q4HWA [facility] Administration Rivaroxaban 15 mg 03/14/19 18:00 03/17/19 18:18 Xarelto PO 15 mg DAILY@1800 [facility] Administration Tramadol HCl 50 mg 03/14/19 15:13 03/16/19 22:38 Ultram - PO 50 mg Q8H PRN Administration PAIN LEVEL 7 - 10 Impression 1. ESRD 2. shortness of breath 3. resp failure requiring bipap 4. chf 5. dvt 6. anemia 7. a-fib 8. hypothyroid 9. pleural effusion 10. hypotension Plan - taper steroids - HD today - cont midodrine - volume status is improved - renal diet with fluid restriction - HD right thigh cath, 3 k bath, 3 15 time, 300 abf
[2019-03-18] MEDS: RIVAROXABAN 15 MG TABLET PO SCH (17:57)
[2019-03-18] MEDS: CHLORHEXIDINE GLUCONATE 4% CLEANSER FOR DECOLONIZATION TP SCH (21:29)
[2019-03-19] MEDS: INSULIN SLIDING SCALE (NOVOLOG) 1 VIAL SQ SCH ×2 (00:46→06:34)
[2019-03-19] MEDS: traMADol HCL 50 MG TABLET PO PRN (01:13)
[2019-03-19 05:37] VITALS: PULSE 63
[2019-03-19] MEDS: POLYMYXIN B SULFATE/TMP 10 ML OPHTHALMIC SOLUTION OD SCH ×2 (06:34→09:55)
[2019-03-19] MEDS: LEVOTHYROXINE NA 25 MCG TABLET (FP) PO SCH (06:35)
[2019-03-19 09:52] VITALS: BP 96/63; TEMP 98
[2019-03-19] MEDS: MIDODRINE HCL 5 MG TABLET PO SCH (09:54)
[2019-03-19] MEDS: FLUDROCORTISONE ACETATE 0.1 MG TABLET (FP) PO SCH (09:54)
[2019-03-19] MEDS: HYDROCORTISONE SOD SUCCINATE 100 MG/2 ML VIAL IVPB SCH (09:54)
== END 2019-03-19 11:17 | DRG 291 ==
LOC: JER 13:06 → JERBED 16:57 → JICU 21:18 → J5S 03-14 15:42
PROVIDERS: ADMIT Family Medicine; ATTEND Family Medicine
PROC: 5A1D70Z Performance of Urinary Filtration, Intermittent, Less than 6 Hours Per Day (ICD-10-PCS; principal; 2019-03-18)
DX: I13.2 Hypertensive heart and chronic kidney disease with heart failure and with stage 5 chronic kidney disease, or end stage renal disease (principal); J96.21 Acute and chronic respiratory failure with hypoxia; R57.0 Cardiogenic shock; I50.33 Acute on chronic diastolic (congestive) heart failure; N18.6 End stage renal disease; J18.9 Pneumonia, unspecified organism; J96.22 Acute and chronic respiratory failure with hypercapnia; R53.2 Functional quadriplegia; G93.41 Metabolic encephalopathy; I24.8 Other forms of acute ischemic heart disease; I95.9 Hypotension, unspecified; J44.9 Chronic obstructive pulmonary disease, unspecified; E11.22 Type 2 diabetes mellitus with diabetic chronic kidney disease; I25.10 Atherosclerotic heart disease of native coronary artery without angina pectoris; E66.01 Morbid (severe) obesity due to excess calories; Z99.2 Dependence on renal dialysis; E87.70 Fluid overload, unspecified; D64.9 Anemia, unspecified; I48.91 Unspecified atrial fibrillation; E03.9 Hypothyroidism, unspecified; G47.33 Obstructive sleep apnea (adult) (pediatric); R00.1 Bradycardia, unspecified; D69.6 Thrombocytopenia, unspecified; D72.819 Decreased white blood cell count, unspecified; E11.649 Type 2 diabetes mellitus with hypoglycemia without coma
CPT/HCPCS: 36415; 36600; 71045-TC-FY; 80048; 80053; 82565; 82803; 82962; 83605; 83735; 84100; 84436; 84443; 84479; 84484; 84520; 85025; 85027; 85610; 85730; 87040; 93005; 93010; 94660; 99285-25; G0480; J0131; J0885; J7030; P9047

== ENCOUNTER 2019-03-20 21:03 | Emergency (ER) | payer OTHER ==
--- NOTE | 2019-03-20 21:25 | PDOC ---
History of Present Illness - General Stated Complaint: S.O.B Time Seen by Provider: 03/20/19 21:24 Past History - Past Medical History Allergies/Adverse Reactions: Allergies Allergy/AdvReac Type Severity Reaction Status Date / Time No Known Allergies Allergy Unverified 01/19/19 11:43 Home Medications: Ambulatory Orders Acetaminophen [8Hr Muscle Aches-Pain] 650 mg PO PRN PRN 02/19/19 Ammonium Lactate Lotion [Lac-Hydrin 12] 1 applic TP BID 02/19/19 Bacitracin - [Bacitracin Topical Ointment -] 1 applic TP BID 02/19/19 Buspirone HCl [Buspar -] 5 mg PO BID 02/19/19 Guaifenesin/Dextromethorphan [Robitussin Cough-Chest Dm Liq] 237 ml PO PRN PRN 02/19/19 Hydrocortisone Acetate [Anusol Hc Suppository -] 25 mg RC PRN PRN 02/19/19 Ipratropium/Albuterol Sulfate [Iprat-Albut 0.5-3(2.5) mg/3 ml] 3 ml IH Q4H PRN 02/19/19 Lidocaine/Prilocaine Cream [Lidocaine-Prilocaine Cream -] 1 applic TP Q4H Nystatin Ointment [Mycostatin Ointment -] 1 applic TP BID 02/19/19 Ondansetron [Zofran -] 4 mg PO PRN PRN 02/19/19 Pantoprazole Sodium [Protonix] 40 mg PO DAILY 02/19/19 Sennosides [Senna] 8.6 mg PO HS 02/19/19 Sertraline HCl [Zoloft -] 75 mg PO DAILY 02/19/19 Silver Sulfadiazine [Silvadene] 1 applic TP DAILY 02/19/19 Vitamin B Comp W-C [Nephro-Evert -] 1 tablet PO DAILY 02/19/19 Zinc Oxide 20% Topical Oint 454 gm TD BID 02/19/19 Zinc Sulfate [Orazinc -] 220 mg PO DAILY 02/19/19 Buspirone HCl [Buspar -] 5 mg PO BID tablet 02/23/19 Fludrocortisone Acetate [Florinef -] 0.2 mg PO DAILY tablet 02/23/19 Melatonin 5 mg PO HS tab 02/23/19 Midodrine HCl [Proamatine -] 10 mg PO Q8H PRN tablet 02/23/19 Rivaroxaban [Xarelto] 15 mg PO DAILY@1800 tablet 02/23/19 Calcitriol [Calcitriol -] 0.75 mcg PO DAILY 03/11/19 Digoxin 125 mcg PO DAILY 03/11/19 Phenylephrine 0.25%/Starch [Anusol Suppository -] 1 each RC QID PRN 03/11/19 Vitamin B Comp W-C [Nephro-Evert -] 1 tablet PO DAILY 03/11/19 Hydrocortisone 0.5% Cream [Hytone 0.5% Cream -] 1 applic TP DAILY PRN tube 10/01 Insulin Sliding Scale [Novolog Vial Sliding Scale -] 1 vial SQ Q6H units Levothyroxine [Synthroid -] 25 mcg PO DAILY@0700 tablet 03/18/19 Polymyxin B Sulfate/Tmp [Polytrim Opthalmic Solution -] 1 drop OD Q4HWA drops 03/18/19 Prednisone 5 mg PO DAILY #3 tablet 03/18/19 traMADol HCL [Ultram -] 50 mg PO Q8H PRN tablet MDD 3 03/18/19 Anemia: Yes Asthma: No Cancer: Yes (endometrial ca, s/p hysterectomy) Cardiac Disorders: Yes (A-fib) CVA: No COPD: Yes (Oxygen 2l n/c) CHF: Yes DVT: Yes Dementia: No Diabetes: Yes GI Disorders: Yes (cdiff) Disorders: Yes (ESRD, HD, Rfemoral tessio - M--Thu) HTN: No Hypercholesterolemia: No Liver Disease: No Seizures: No Thyroid Disease: Yes (hypothyroidism) - Surgical History Abdominal Surgery: No Appendectomy: No Cardiac Surgery: No Cholecystectomy: No Lung Surgery: No Neurologic Surgery: No Orthopedic Surgery: Yes (spinal surgery december 2017,feb 2017 Lt arm fracture with tendon transfer) - Psycho Social/Smoking Cessation Hx Smoking History: Unknown if ever smoked Have you smoked in the past 12 months: No Hx Alcohol Use: No Drug/Substance Use Hx: No Substance Use Type: None Hx Substance Use Treatment: No Medical Decision Making - Medical Decision Making 03/20/19 21:42 HPI: 73yo F hx ESRD on HD 4x/week (next tomorrow), Afib (on Xarelto), CHF, COPD (on 2L O2 at home), DVT (on Xarelto), DM, hypothyroidism, CHERISE, endometrial cancer s/ p hysterectomy, and recent admission for hypotension s/p missed dialysis from -03/18/19 BIBEMS from [facility] for low oxygen saturation into 70s. Per [facility], pt refused Bipap and was c/o difficulty breathing. Here, pt c/o chronic difficulty breathing and chronic rash on bottom. Pt poor historian, does not know medical problems. PCP: Johnny Houston ROS: unable to obtain due to poor historian PE: Gen: Alert, NAD, uncomfortable- and anxious-appearing, obese HEENT: PERRL, EOMI, MMM, NCAT. No conjunctival pallor. Sclera are non-icteric. CV: Regular rate and rhythm. No murmurs, rubs, or gallops. PULM: +accessory muscle use. No resp distress. CTAB, no wheezes, rales, or rhonchi. ABD: protuberant, soft, NT/ND, no rebound tenderness or guarding, no CVA tenderness. BACK: No TTP of c/t/l-spine. No step-offs or deformities. MSK: No bony deformities. 2+ pulses in all extremities. NEURO: AAOx3. PERRL. No gross CN deficits. Strength and sensation grossly intact throughout. EXTREMITIES: + R-sided dialysis catheter in place. +grossly edematous diffusely. No cyanosis. No clubbing. No calf tenderness. SKIN: + numerous hematomas. Warm and dry. Normal capillary refill. No jaundice. MDM: 73yo F hx ESRD on HD 4x/week (next tomorrow), Afib (on Xarelto), CHF, COPD (on 2L O2 at home), DVT (on Xarelto), DM, hypothyroidism, CHERISE, endometrial cancer s/ p hysterectomy, and recent admission for hypotension s/p missed dialysis from -03/18/19 BIBEMS from [facility] for low oxygen saturation into 70s and refusal of bipap. Hemodynamically stable, afebrile. Pulse ox mostly in mid-90s. Intermittent drops into 70s but poor waveform during drops. Lungs CTAB, but pt anxious and using some accessory muscles - place on bipap 03/19, rate 12, 50%. Difficulty breathing most likely mucous plug. CXR to r/o PNA. Observe and reassess on home O2 2L on RI when stable. If stable, d/c back to [facility]. 03/20/19 21:52 Dr Pryor spoke with daughter Cheryl (who states she is one of the health care proxies). Per Dr Pryor, daughter wants pt to be back at [facility]. Dr Pryor calling [facility] now. 03/20/19 21:59 Dr Pryor spoke with [facility]. Per Dr Pryor, [facility] stated pt's O2 sat was dropping into 70s and daughter did not want her there. Informed [facility] of status and conversation with daughter and plan to return there after observation for a couple hours. 03/20/19 22:10 Pt on bipap. Tolerating well. 03/21/19 00:31 CXR reviewed - no acute pathology or changes seen since 03/15/19. Pt off bipap. On 3L by RI. Wants diaper changed - will change diaper. 03/21/19 01:25 O2 sat stable in high 90s on home baseline. Pt appears comfortable, in no respiratory distress. Will dc back to [facility] with PCP f/u. Return precautions given. Pt understands all dc instructions and all questions were answered. Discharge - Discharge Information Problems reviewed: Yes Clinical Impression/Diagnosis: Low oxygen saturation Condition: Improved Disposition: ALF FACILITY - Admission No - Follow up/Referral - Patient Discharge Instructions Patient Printed Discharge Instructions: Oxygen Saturation, How to Use a Bilevel Positive Airway Pressure (BiPAP) Device Additional Instructions: You have been seen in the Emergency Department for your difficulty breathing and low oxygen saturation. Your exam, oxygen saturation, and chest X-ray show no signs concerning for an emergent condition. We gave you a brief treatment with a Bipap machine and now your oxygen saturation has been stable while on your baseline home oxygen. Follow-up with your primary care doctor within 1 week. Use your oxygen and Bipap as directed. Return to the ED immediately if you experience chest pain, difficulty breathing , dizziness, or any other new or worsening symptom. - Post Discharge Activity
[2019-03-20 21:48] VITALS: BMI 29.2
--- NOTE | 2019-03-20 22:47 | PDOC ---
Attending Attestation - Resident Resident Name: Bri Hamilton - ED Attending Attestation I have performed the following: I have examined & evaluated the patient, The case was reviewed & discussed with the resident, I agree w/resident's findings & plan, Exceptions are as noted - HPI HPI: 03/20/19 22:46 This 73-year-old female was brought in by ambulance from [facility] because her pulse ox was low at the skilled nursing. They wrote that they had tried to initiate BiPAP and the patient refused. - Physicial Exam PE: 03/20/19 22:47 Petite 73 yo female with edematous extremities head ncat lungs BS in all deonte arizmendi abd protuberant skin scattered ecchymosis on her limbs neuro alert and conversant - Medical Decision Making 03/20/19 22:51 I spoke to the skilled nursing about the patient's referral and they stated she is here because her pulse ox is only 70% in the skilled nursing and the patient was refusing BiPAP I also spoke with the daughter and she about the patient's past medical history and the daughter said that the patient requires dialysis and [facility] was suitable for this pt's needs Patient was not hypoxic but showed some tugging and use of accessory muscles so was placed on BiPAP 03/19, rate of 12 a 50% Plan patient will be observed to make sure she is stable to be discharged back to the skilled nursing now that she will accept BiPAP there 03/21/19 01:12 pt is off bipap, she is requesting to go back Her pulse ox is in the mid 90s 03/21/19 01:20
[2019-03-21 02:23] VITALS: BP 100/62; PULSE 72; TEMP 98.9
--- NOTE | 2019-03-21 10:19 | EKG ---
Test Reason : Blood Pressure : / mmHG Vent. Rate : 070 BPM Atrial Rate : 059 BPM P-R Int : 000 ms QRS Dur : 062 ms QT Int : 340 ms P-R-T Axes : 000 155 029 degrees QTc Int : 367 ms SUSPECT ARM LEAD REVERSAL, INTERPRETATION ASSUMES NO REVERSAL ATRIAL FIBRILLATION LOW VOLTAGE QRS ANTEROLATERAL INFARCT (CITED ON OR BEFORE 28-JAN-2019) ABNORMAL ECG WHEN COMPARED WITH ECG OF 15-MAR-2019 17:03, LIKELY NO SIGNIFICANT CHANGES Confirmed by HEBER ADEN MD ([id number]) on 03/21/2019 10:19:01 AM Referred By: Confirmed By:HEBER ADEN MD
== END 2019-03-21 03:00 ==
LOC: JER 21:03
DX: R09.02 Hypoxemia (principal); I25.10 Atherosclerotic heart disease of native coronary artery without angina pectoris; I13.2 Hypertensive heart and chronic kidney disease with heart failure and with stage 5 chronic kidney disease, or end stage renal disease; N18.6 End stage renal disease; I50.9 Heart failure, unspecified; Z99.2 Dependence on renal dialysis; E11.9 Type 2 diabetes mellitus without complications; Z79.4 Long term (current) use of insulin; E03.9 Hypothyroidism, unspecified; I48.91 Unspecified atrial fibrillation; Z79.01 Long term (current) use of anticoagulants; J44.9 Chronic obstructive pulmonary disease, unspecified; D64.9 Anemia, unspecified; Z85.89 Personal history of malignant neoplasm of other organs and systems; Z86.718 Personal history of other venous thrombosis and embolism; Z90.710 Acquired absence of both cervix and uterus; Z99.81 Dependence on supplemental oxygen
CPT/HCPCS: 71045-TC-FY; 93005; 93010; 99283-25

== ENCOUNTER 2019-04-20 13:47 | Inpatient (IN) | payer OTHER ==
--- NOTE | 2019-04-20 14:17 | PDOC ---
History of Present Illness - General Chief Complaint: Shortness of Breath Stated Complaint: Shortness of Breath Time Seen by Provider: 04/20/19 13:57 - History of Present Illness Initial Comments: 04/20/19 14:19 73 year old woman with a pmh ESRD on HD (DUE TODAY), DMII, COPD, DVTs, orthostatic hypotension, chronic combined systolic/diastolic/right sided CHF, chronic Afib with h/o slow ventricular response thus not on AV oseas blockers, multiple admissions for acute on chronic respiratory failure, sent from [facility] for hypoxia (69-70%) and cyanosis. Resident was at halfway, reportedly kept calling for help throughout the night,. Recently discharged from the ICU 2 days ago at [place] for acute on chronic respiratory failure. PCP: Dr. Houston. MO vitals: 112/75, 94 RR: 24, temp: 97 O2: 69-70% Past History - Past Medical History Allergies/Adverse Reactions: Allergies Allergy/AdvReac Type Severity Reaction Status Date / Time No Known Allergies Allergy Unverified 01/19/19 11:43 Home Medications: Ambulatory Orders Ammonium Lactate Lotion [Lac-Hydrin 12] 1 applic TP BID 02/19/19 Bacitracin - [Bacitracin Topical Ointment -] 1 applic TP BID 02/19/19 Buspirone HCl [Buspar -] 10 mg PO BID 02/19/19 Hydrocortisone Acetate [Anusol Hc Suppository -] 1 supp RC DAILY PRN 02/19/19 Ipratropium/Albuterol Sulfate [Iprat-Albut 0.5-3(2.5) mg/3 ml] 1 neb IH Q4H 12/31 Lidocaine/Prilocaine Cream [Lidocaine-Prilocaine Cream -] 1 applic TP Q4H PRN Nystatin Ointment [Mycostatin Ointment -] 1 applic TP BID 02/19/19 Ondansetron [Zofran -] 4 mg PO Q6H PRN 02/19/19 Pantoprazole Sodium [Protonix] 40 mg PO DAILY 02/19/19 Sennosides [Senna] 2 tab PO HS 02/19/19 Silver Sulfadiazine [Silvadene] 1 applic TP DAILY 02/19/19 Vitamin B Comp W-C [Nephro-Evert -] 1 tablet PO DAILY 02/19/19 Zinc Oxide 20% Topical Oint 1 applic TP BID 02/19/19 Zinc Sulfate [Orazinc -] 220 mg PO DAILY 02/19/19 Calcitriol [Calcitriol -] 0.75 mcg PO DAILY 03/11/19 Digoxin 125 mcg PO DAILY 03/11/19 Levothyroxine [Synthroid -] 25 mcg PO DAILY@0700 tablet 03/18/19 traMADol HCL [Ultram -] 50 mg PO Q8H PRN tablet 03/18/19 Acetaminophen [Tylenol] 650 mg PO Q6H PRN 04/20/19 Alprazolam 0.25 mg PO BID 04/20/19 Apixaban [Eliquis] 5 mg PO BID 04/20/19 Clotrimazole 1 applic TP BID 04/20/19 Collagenase Clostridium Hist. [Santyl] 1 applic TP DAILY 04/20/19 Fludrocortisone Acetate [Florinef -] 0.1 mg PO DAILY 04/20/19 Hydrocortisone 0.5% Cream [Hytone 0.5% Cream -] 1 applic TP DAILY 04/20/19 Insulin Lispro [Humalog] 0 unit SQ BIDAC 04/20/19 Melatonin 10 mg PO HS 04/20/19 Midodrine HCl 10 mg PO TID 04/20/19 Nystatin/Triamcin [Nystatin-Triamcinolone Cream] 1 applic TP DAILY 04/20/19 Anemia: Yes Asthma: No Cancer: Yes (endometrial ca, s/p hysterectomy) Cardiac Disorders: Yes (A-fib) CVA: No COPD: Yes (Oxygen 2l n/c) CHF: Yes DVT: Yes Dementia: No Diabetes: Yes GI Disorders: Yes (cdiff) Disorders: Yes (ESRD, HD, Rfemoral tessio - M--Thu) HTN: No Hypercholesterolemia: No Liver Disease: No Seizures: No Thyroid Disease: Yes (hypothyroidism) - Surgical History Abdominal Surgery: No Appendectomy: No Cardiac Surgery: No Cholecystectomy: No Lung Surgery: No Neurologic Surgery: No Orthopedic Surgery: Yes (spinal surgery december 2017,feb 2017 Lt arm fracture with tendon transfer) - Psycho Social/Smoking Cessation Hx Smoking History: Unknown if ever smoked Have you smoked in the past 12 months: No Hx Alcohol Use: No Drug/Substance Use Hx: No Substance Use Type: None Hx Substance Use Treatment: No Review of Systems - Review of Systems Able to Perform ROS?: Yes Is the patient limited Polish proficient: No Constitutional: No: Symptoms Reported HEENTM: No: Symptoms Reported Respiratory: Yes: See HPI Cardiac (ROS): No: Symptoms Reported ABD/GI: No: Symptoms Reported : No: Flank Pain Musculoskeletal: No: Symptoms Reported Integumentary: Yes: Change in Color, Erythema, Other (right arm) *Physical Exam - Physical Exam General Appearance: Yes: Severe Distress HEENT: positive: EOMI, JACQUELINE, Normal ENT Inspection Respiratory/Chest: positive: Respiratory Distress, Labored Respiration, Rapid RR , Decreased Breath Sounds, Rales, Rhonchi, Wheezing. negative: Chest Tender Cardiovascular: positive: Regular Rhythm, Regular Rate, S1, S2 Gastrointestinal/Abdominal: positive: Normal Bowel Sounds, Soft, Protuberent, Other (Dialysis port to the right groin. ). negative: Tender Musculoskeletal: positive: Normal Inspection. negative: CVA Tenderness Integumentary: positive: Warm, Cyanotic (right arm with venous statis wounds. ) Neurologic: positive: Fully Oriented, Alert, Responsive ED Treatment Course - LABORATORY CBC & Chemistry Diagram: 04/20/19 14:52 04/21/19 11:45 - RADIOLOGY Radiology Studies Ordered: Category Date Time Status CXRPORT [CHEST X-RAY PORTABLE*] [RAD] Stat Radiology 04/20/19 14:03 Ordered Medical Decision Making - Medical Decision Making 04/20/19 16:02 73 year old woman with a pmh ESRD on HD (DUE TODAY), DMII, COPD, DVTs, orthostatic hypotension, chronic combined systolic/diastolic/right sided CHF, chronic Afib with h/o slow ventricular response thus not on AV oseas blockers, multiple admissions for acute on chronic respiratory failure, sent from [facility] for hypoxia (69-70%) and cyanosis. . Differential: CAD, PE, CHF, acute COPD, PNA ,electrolyte/metabolic derangements. Placed saturating at 100% ON BIPAS. abg wnl, no acidemia. Consulted with Dr. Molina who will see the aptietn and arranged for dialysis. Admitted the patient under Dr. Camargo who accepted the patient and suggested consult with Dr. Toth cook chili. 04/20/19 16:03 Patient accepted to telemetry unit. Discharge - Discharge Information Problems reviewed: Yes Clinical Impression/Diagnosis: Acute exacerbation of congestive heart failure Condition: Stable - Admission Yes - Follow up/Referral - Patient Discharge Instructions - Post Discharge Activity
--- NOTE | 2019-04-20 14:22 | PDOC ---
Attending Attestation - Resident Resident Name: Simone Plascencia - ED Attending Attestation I have performed the following: I have examined & evaluated the patient, The case was reviewed & discussed with the resident, I agree w/resident's findings & plan - HPI HPI: 04/20/19 15:21 73 year old woman with a pmh ESRD on HD (DUE TODAY), DMII, COPD, DVTs, orthostatic hypotension, chronic combined systolic/diastolic/right sided CHF, chronic Afib with h/o slow ventricular response thus not on AV oseas blockers, multiple admissions for acute on chronic respiratory failure, sent from [facility] for hypoxia (69-70%) and cyanosis. Resident was at longterm 2 days after readmission, PCP: Dr. Houston. PR vitals: 112/75, 94 RR: 24, temp: 97 O2: 69-70% given duonebs en route 04/20/19 16:44 - Physicial Exam PE: 04/20/19 14:20 Agree with the resident's HPI and PE as documented in the electronic medical record. moderate respiratory distress. EOMI, PERRL, nl conjunctiva, anicteric; neck supple. lungs diminished breath sounds bilaterally, very tachypneic and moderate respiratory distress, +retractions, RRR, abdomen soft nontender. no rebound, guarding. Back nontender. CHAVIRA x4, no focal neuro deficits. No peripheral edema. normal color for ethnicity, WWP. RLE edema noted, nontender, erythematous. right groin HD catheter. dressings in place. 04/20/19 15:21 - Critical Care Time Total Critical Care Time: 40 (acute respiratory failure) Critical Care Statement: The care of this patient involved high complexity decision making to prevent further life threatening deterioration of the patient 's condition and/or to evaluate & treat vital organ system(s) failure or risk of failure. - Medical Decision Making 04/20/19 14:21 Vital Signs Temp Pulse Resp BP Pulse Ox 98.5 F 81 30 H 106/60 100 04/20/19 14:00 04/20/19 14:36 04/20/19 14:00 04/20/19 14:00 04/20/19 14:36 DDx SOB: ACS, PE, PTX, CHF, COPD exac, pulmonary edema, pleurisy, pneumonia, viral syndrome. effusion. anemia, electrolyte/metabolic derangements. bipap placed, hypoxic down to 78-83% on RA, so placed on O2, transitioned to bipap for WOB much improved with tx +pleural effusions cxr with bilateral effusions. scoliosis. c/w fluid overload state. ABG without acidosis or alkalosis, reassuring, no CO2 retention, obtained while doing bipap intervention. feels much improved and WOB down with the bipap. will maintain. requires dialysis, called to Dr Molina to cs and arrange. may benefit from HD, take off excess fluid, thoracentesis )similar presentation previously requiring thora. admit to Dr Camargo group, tele, bipap and med management, 04/20/19 15:22 04/20/19 16:41 04/20/19 16:42 04/20/19 16:43 Heart Score/ECG Review #1 ECG reviewed & interpreted by me at: 14:15 General ECG Interpretation: Normal Rate Compared to previous ECG there are: No significant change 04/20/19 15:25 low voltage waves, Atrial fibrillation at 86 bpm, no electric alternans, poor R wave progression, nonspecific T wave abnormalities
[2019-04-20 14:29] LABS: ARTERIAL BLD GAS O2 SATURATION 93.6 % (95-98); ARTERIAL BLOOD GAS BASE EXCESS -1.7 meq/l (-2-2); ARTERIAL BLOOD GAS PCO2 42.7 mmHg (35-45); ARTERIAL BLOOD GAS pH 7.35 (7.35-7.45); CARBOXYHEMOGLOBIN 1.1 % (0-2)
[2019-04-20 14:30] LABS: ALLENS TEST POSITIVE; ARTERIAL BLOOD GAS PO2 74.5 mmHg (80-100)
--- NOTE | 2019-04-20 15:12 | CONSULT ---
Consultation: REQUESTING PROVIDER: Dr. Plascencia CONSULT REQUEST: We have been asked to medically evaluate this patient for Hemodialysis . HISTORY OF PRESENT ILLNESS: Pt. is a 73 y/o female with past medical history of mixed CHF, DVT, COPD, ESRD ( HD on MWF), anemia, Afib w/ slow ventricular response(on Xarelto), DM, hypothyroidism, and depression. Patient presented to ER from [facility] for worsening SOB. Patient states the SOB began yesterday and has gotten worse. Pt. has had multiple admissions for shortness of breath requiring ICU monitoring and intubations in the past. On the last discharge it was recommended that the Pt. receive HD 4 times a week however after the first week of trying HD Pt. became hypotensive and was sent to [facility]. Pt. was sent back to [facility] yesterday from [facility] (2nd visit to [facility] during last month ) for the same complaint of shortness of breath. Pt. states that she has been on HD for 14 years but is not a candidate for Renal transplant given her co- morbidities. Pt. states that she is oliguric. Pt. states that she has had productive cough over the last 2 days but is unable to describe the color. Pt. states that she has been having increase malaise over the last 2 days. Pt. complains of rash on buttocks. Pt. endorses that she Pt. denies any fever, chills, nausea or vomiting. REVIEW OF SYSTEMS: CONSTITUTIONAL: generalized weakness Absent: fever, chills, diaphoresis, , malaise, loss of appetite, weight change HEENT: rhinorrhea Absent: , nasal congestion, throat pain, throat swelling, difficulty swallowing , mouth swelling, ear pain, eye pain, visual changes CARDIOVASCULAR: Absent: chest pain, syncope, palpitations, irregular heart rate, lightheadedness , peripheral edema RESPIRATORY: cough, shortness of breath Absent: dyspnea with exertion, orthopnea, wheezing, stridor, hemoptysis GASTROINTESTINAL: constipation Absent: abdominal pain, abdominal distension, nausea, vomiting, diarrhea, melena , hematochezia GENITOURINARY: Absent: dysuria, frequency, urgency, hesitancy, hematuria, flank pain, genital pain MUSCULOSKELETAL: Absent: myalgia, arthralgia, joint swelling, back pain, neck pain SKIN: rash Absent: itching, pallor HEMATOLOGIC/IMMUNOLOGIC: Absent: easy bleeding, easy bruising, lymphadenopathy, frequent infections ENDOCRINE: Absent: unexplained weight gain, unexplained weight loss, heat intolerance, cold intolerance NEUROLOGIC: Absent: headache, focal weakness or paresthesias, dizziness, unsteady gait, seizure, mental status changes, bladder or bowel incontinence PSYCHIATRIC: Absent: anxiety, depression, suicidal or homicidal ideation, hallucinations. PHYSICAL EXAMINATION Vital Signs - 24 hr 04/20/19 04/20/19 14:00 14:36 Temperature 98.5 F Pulse Rate 81 81 Respiratory 30 H Rate Blood Pressure 106/60 O2 Sat by Pulse 97 100 Oximetry (%) GENERAL: Awake, alert and oriented to name only, in no acute distress. HEAD: Normal with no signs of trauma. EYES: Extraocular movements intact, sclera anicteric, conjunctiva clear. EARS, NOSE, THROAT: Ears normal, nares patent, Moist mucous membranes. NECK: Normal range of motion, supple without lymphadenopathy, JVD, or masses. LUNGS: Decreased reath sounds anteriorly on BIPAP, No wheezes, and no crackles. HEART: Irregular rate and rhythm, faint heart beat normal S1 and S2 ABDOMEN: Soft, nontender, not distended, normoactive bowel sounds, no guarding, no rebound, no masses, obese . MUSCULOSKELETAL: Normal range of motion at all joints. No bony deformities or tenderness. UPPER EXTREMITIES: warm, well-perfused. No cyanosis. No clubbing. Cap refill <2 seconds. Right upper extremity edema. LOWER EXTREMITIES: 2+ dorsal pedal pulses, warm, well-perfused. R. groin dialysis catheter, No calf tenderness. No peripheral edema. NEUROLOGICAL: Confused. Labored speech. PSYCHIATRIC: Cooperative. Good eye contact. Appropriate mood and affect. SKIN: Warm, dry Laboratory 04/20/19 04/20/19 04/20/19 14:16 14:52 14:52 WBC 4.3 K/mm3 K/mm3 (4.0-10.0) RBC 3.23 M/mm3 L M/mm3 (3.60-5.2) Hgb 9.1 GM/dL L GM/dL (10.7-15.3) Hct 29.4 % L D % (32.4-45.2) MCV 91.3 fl fl (80-96) MCH 28.2 pg pg (25.7-33.7) MCHC 30.9 g/dl L g/dl (32.0-36.0) RDW 19.5 % H % (11.6-15.6) Plt Count 183 K/MM3 D K/MM3 (134-434) MPV 9.0 fl fl (7.5-11.1) Absolute Neuts (auto) 2.6 K/mm3 K/mm3 (1.5-8.0) Neutrophils % 58.8 % % (42.8-82.8) Lymphocytes % 29.1 % D % (8-40) Monocytes % 9.5 % % (3.8-10.2) Eosinophils % 1.1 % D % (0-4.5) Basophils % 1.5 % % (0-2.0) Nucleated RBC % 0 % % (0-0) Anticoagulation Therapy No Result Required. Puncture Site Left brachial ABG pH 7.35 (7.35-7.45) ABG pCO2 at Pt Temp 42.7 mmHg mmHg (35-45) ABG pO2 at Pt Temp 74.5 mmHg L mmHg (80-100) ABG HCO3 23.1 mmol/L mmol/L (22-27) ABG O2 Sat (Measured) 93.6 % L % (95-98) ABG O2 Content No Result Required. ABG Base Excess -1.7 meq/l meq/l (-2-2) Pedro Test Positive Carboxyhemoglobin 1.1 % % (0-2) Methemoglobin < 1.0 % % (0-2) O2 Delivery Device Bipap Oxygen Flow Rate 35% Vent Mode S/t Vent Rate 14 Mechanical Rate Bipap Pressure Support Vent 12/6 Sodium 130 mmol/L L mmol/L (136-145) Potassium 5.1 mmol/L mmol/L (3.5-5.1) Chloride 98 mmol/L mmol/L (98-107) Carbon Dioxide 23 mmol/L mmol/L (21-32) Anion Gap 9 MMOL/L MMOL/L (8-16) BUN 52.8 mg/dL H mg/dL (7-18) Creatinine 4.0 mg/dL H mg/dL (0.55-1.3) Est GFR (CKD-EPI)AfAm 12.28 Est GFR (CKD-EPI)NonAf 10.60 Random Glucose 117 mg/dL H mg/dL (74-106) Calcium 8.6 mg/dL mg/dL (8.5-10.1) Magnesium 2.2 mg/dL mg/dL (1.8-2.4) Total Bilirubin 0.5 mg/dL mg/dL (0.2-1) AST 42 U/L H U/L (15-37) ALT 15 U/L U/L (13-61) Alkaline Phosphatase 156 U/L H U/L (45-117) Troponin I 0.07 ng/ml H ng/ml (0.00-0.05) B-Natriuretic Peptide > 69647.0 pg/ml H pg/ml (5-125) Total Protein 6.7 g/dl g/dl (6.4-8.2) Albumin 3.0 g/dl L g/dl (3.4-5.0) ASSESSMENT/PLAN: Pt. is a 73 y/o female with past medical history of mixed CHF, DVT, COPD, ESRD ( HD on -), anemia, Afib w/ slow ventricular response(on Xarelto), DM, hypothyroidism, and depression. Patient presented to ER from [facility] for worsening SOB. #Shortness of breath 2/2 ESRD w/ anemia on HD (MWF) Pt. has not received her HD today ABG: pH 7.35, pCO2: 42.7, pO2: 74.5 Last Echo(02/21/19): EF: 55-60%, R. Ventricular fxn moderately reduced, mod/- severe TR, PASP 42mmHg, pleural effusion CXR: R. pleural effusion, L. Lung almost complete opacification, no pneumothorax Pt. presents with volume overload present on clinical assessment and on CXR Pt. would benefit from fluid removal on HD BNP >48715 BUN elevated c/w supplemntal O2 to keep O2% >88% ICU monitoring suggest thoracocentesis as Pt. had thoracocentesis during last admission for similar complaint if pleural effusion is unchanged after HD Troponinemia is likely secondary to decreased clearance given ESRD. #DVT Ppx. Xarelto Dispo: We will continue to follow the patient. Thank you for this consultative opportunity. ATTENDING PHYSICIAN STATEMENT I saw and evaluated the patient. I reviewed the resident's note and discussed the case with the resident. I agree with the resident's findings and plan as documented. SUBJECTIVE: OBJECTIVE: ASSESSMENT AND PLAN:
[2019-04-20 15:55] LABS: BASO % 1.5 % (0-2.0); EOS % 1.1 % (0-4.5); HEMATOCRIT 29.4 % (32.4-45.2); HEMOGLOBIN 9.1 GM/dL (10.7-15.3); LYMPH % 29.1 % (8-40); MCH 28.2 pg (25.7-33.7); MCHC 30.9 g/dl (32.0-36.0); MEAN CELL VOLUME 91.3 fl (80-96); MONO % 9.5 % (3.8-10.2); NEUT % 58.8 % (42.8-82.8); PLATELET COUNT 183 K/MM3 (134-434); RBC 3.23 M/mm3 (3.60-5.2); RDW 19.5 % (11.6-15.6); WHITE BLOOD COUNT 4.3 K/mm3 (4.0-10.0)
[2019-04-20 15:58] LABS: ALK PHOS 156 U/L (45-117); ANION GAP 9 MMOL/L (8-16); BILIRUBIN,TOTAL 0.5 mg/dL (0.2-1); BLOOD UREA NITROGEN 52.8 mg/dL (7-18); CALCIUM 8.6 mg/dL (8.5-10.1); CHLORIDE 98 mmol/L (98-107); CO2 23 mmol/L (21-32); GLUCOSE,RANDOM 117 mg/dL (74-106); MAGNESIUM 2.2 mg/dL (1.8-2.4); N-TERMINAL BNP > 35000.0 pg/ml (5-125); POTASSIUM 5.1 mmol/L (3.5-5.1); SGOT/AST 42 U/L (15-37); SGPT/ALT 15 U/L (13-61); SODIUM 130 mmol/L (136-145); TOT PROT 6.7 g/dl (6.4-8.2)
--- NOTE | 2019-04-20 16:19 | CONSULT ---
Consultation: REQUESTING PROVIDER: Dr. Camargo CONSULT SERVICE: ICU Resident HISTORY OF PRESENT ILLNESS: Patient is a 73 year old female with history of Afib (Xarelo), congestive heart failure, ESRD (HD M/W/F), COPD (on home oxygen), anemia, diabetes mellitus, hypothyroidism, numerous admissions for acute hypoxic respiratory failure requiring intubation in the past, presents from [facility] with complaint of shortness of breath. Patient was recently discharged from [facility] for respiratory distress. Per Facility, patient was noted to be saturating 70% with ?cyanosis. Patient was placed on Bilevel ventilation, saturating 100%, with subseqent ABG revealing pH 7.35, PaCO2 42.7, PaO2 74.5, HCO3 23.1 Chest radiograph without acute changes from prior study. Patient denies any shortness of breath, chest pain, palpitations, abdominal pain. REVIEW OF SYSTEMS: As per HPI PHYSICAL EXAMINATION Vital Signs - 24 hr 04/20/19 04/20/19 04/20/19 14:00 14:05 14:36 Temperature 98.5 F Pulse Rate 81 81 Pulse Rate [ 81 Apical] Respiratory 30 H 20 Rate Blood Pressure 106/60 Blood Pressure 106/60 [Left Arm] O2 Sat by Pulse 97 97 100 Oximetry (%) GENERAL: Awake, alert, oriented to person, place, in no acute distress. HEAD: Normocephalic, atraumatic. EYES: PERRL, extraocular movements intact, sclera anicteric, conjunctiva clear. ENT: Oropharynx clear, without erythema or exudates. Moist mucous membranes. NECK: Trachea midline, Supple without lymphadenopathy. LUNGS: Good inspiratory effort, with poor air entry bilaterally. Bilateral rhonchi and faint wheezing auscultated. No accessory muscle use. HEART: Irregular rate and rhythm, S1, S2 without murmur, rub or gallop. ABDOMEN: Obese abdomen. Soft, nondistended, nontender to light and deep palpation x4 quadrants, no rebound tenderness, no guarding. Normoactive bowel sounds x4 quadrants. EXTREMITIES: 1+ radial, dorsalis pedis pulses bilaterally. Right arm erythematous, 1+ edema. 1+ lower extremity edema bilaterally. RT groin catheter , site clean, dry. NEUROLOGICAL: CN II- XII grossly intact. SKIN: Warm, dry. Laboratory Results - last 24 hr 04/20/19 04/20/1919 14:16 14:52 14:52 WBC 4.3 RBC 3.23 L Hgb 9.1 L Hct 29.4 L D MCV 91.3 MCH 28.2 MCHC 30.9 L RDW 19.5 H Plt Count 183 D MPV 9.0 Absolute Neuts (auto) 2.6 Neutrophils % 58.8 Lymphocytes % 29.1 D Monocytes % 9.5 Eosinophils % 1.1 D Basophils % 1.5 Nucleated RBC % 0 Anticoagulation Therapy No Result Required. Puncture Site Left brachial ABG pH 7.35 ABG pCO2 at Pt Temp 42.7 ABG pO2 at Pt Temp 74.5 L ABG HCO3 23.1 ABG O2 Sat (Measured) 93.6 L ABG O2 Content No Result Required. ABG Base Excess -1.7 Pedro Test Positive Carboxyhemoglobin 1.1 Methemoglobin < 1.0 O2 Delivery Device Bipap Oxygen Flow Rate 35% Vent Mode S/t Vent Rate 14 Mechanical Rate Bipap Pressure Support Vent 12/6 Sodium 130 L Potassium 5.1 Chloride 98 Carbon Dioxide 23 Anion Gap 9 BUN 52.8 H Creatinine 4.0 H Est GFR (CKD-EPI)AfAm 12.28 Est GFR (CKD-EPI)NonAf 10.60 Random Glucose 117 H Calcium 8.6 Magnesium 2.2 Total Bilirubin 0.5 AST 42 H ALT 15 Alkaline Phosphatase 156 H Troponin I 0.07 H B-Natriuretic Peptide > 68250.0 H Total Protein 6.7 Albumin 3.0 L ASSESSMENT/PLAN: Acute on Chronic hypoxic respiratory distress ESRD Hypothyroidism Diabetes Mellitus Atrial fibrillation Thrombocytopenia Leukopenia Neurologic -Patient is awake, alert, oriented to person, place. Appears at baseline. -Monitor for signs of mental status changes. Pulmonary Acute on Chronic hypoxic respiratory distress -ABG reveals pH 7.35, PaCO2 42.7, PaO2:74.5 -Currently saturating 100% on BiLevel ventilation; current settings: -Chest radiograph Cardiac Atrial fibrillation Heart failure -Cardiac transthoracic ECHO (02/2019) revealed EF: 55-60%, moderately reduced right ventricular function, with pulmonary artery systolic pressure at 42mmHg. Pleural effusion noted. -BUN greater than 57912; Patient appears clinically volume overload on exam. -EKG reveals atrial fibrilation at 86BPM, with PVCs. -Troponin 0,07, likely secondary to demand. Trend to peak -Patient takes Xarelto for anticoagulaiton Nephrologic ESRD -Nephrology recommendations appreciated. Patient will have hemodialysis session today. Endocrine Diabetes Mellitus Hypothyroidism -Insulin sliding scale -Fingerstick blood glucose monitoring -Continue home Synthroid FEN -No IV fluids indicated -Follow BMP, replete as necessary -NPO while on BiLevel ventilation Prophylaxis -Patient takes Xarelto for Afib anticoagulaiton Disposition: Patient does not require ICU level of care at this time. ABG reveals no acidemia , negative CO2 retention. Patient saturating well on bilevel ventilation, comfortable no respiratory distress. Recommend Telemetry monitoring with continuous pulse oximetry. Please re-consult if any change in patient's clinical status. Thank you for this consultive opportunity. Case discussed with Dr. Toth, Dr. Plascencia. Visit type - Emergency Visit Emergency Visit: Yes ED Registration Date: 04/20/19 Care time: The patient presented to the Emergency Department on the above date and was hospitalized for further evaluation of their emergent condition. - New Patient This patient is new to me today: Yes Date on this admission: 04/20/19 - Critical Care Critical Care patient: Yes Total Critical Care Time (in minutes): 36 Critical Care Statement: The care of this patient involved high complexity decision making to prevent further life threatening deterioration of the patient 's condition and/or to evaluate & treat vital organ system(s) failure or risk of failure. ATTENDING PHYSICIAN STATEMENT I saw and evaluated the patient. I reviewed the resident's note and discussed the case with the resident. I agree with the resident's findings and plan as documented. SUBJECTIVE: OBJECTIVE: ASSESSMENT AND PLAN:
[2019-04-20] MEDS ORDERED: MIDODRINE HCL 5 MG TABLET PO PRN (17:40)
--- NOTE | 2019-04-20 18:39 | CONSULT ---
Consult Consult Specialty:: Nephrology Reason for Consultation:: ESRD - History of Present Illness Chief Complaint: shortness of breath History of Present Illness: Pt is a 73 year old female with pmhx of esrd, dm, copd, chf, and hypotension who presents with shortness of breath. She missed her HD today. She did show improvement with bipap. She has multiple hospitalizations for fluid overload. She is not compliant with fluid intake. She denies fevers or chills. She was recently discharged from [facility]. - History Source History Provided By: Patient, Medical Record - Past Medical History Cardio/Vascular: Yes: AFIB, CHF, Deep Vein Thrombosis Pulmonary: Yes: Bronchitis, Pneumonia, Previously Intubated, Pulmonary Embolus, Sleep Apnea Gastrointestinal: Yes: GERD Renal/: Yes: Renal Failure, Hemodialysis Psych: Yes: Depression Endocrine: Yes: Diabetes Mellitus, Hypothyroidism - Alcohol/Substance Use Hx Alcohol Use: No History of Substance Use: reports: None - Smoking History Smoking history: Unknown if ever smoked Have you smoked in the past 12 months: No - Social History ADL: Support Services History of Recent Travel: No Home Medications - Allergies Allergies/Adverse Reactions: Allergies Allergy/AdvReac Type Severity Reaction Status Date / Time No Known Allergies Allergy Unverified 01/19/19 11:43 - Home Medications Home Medications: Ambulatory Orders Acetaminophen [8Hr Muscle Aches-Pain] 650 mg PO PRN PRN 02/19/19 Ammonium Lactate Lotion [Lac-Hydrin 12] 1 applic TP BID 02/19/19 Bacitracin - [Bacitracin Topical Ointment -] 1 applic TP BID 02/19/19 Buspirone HCl [Buspar -] 5 mg PO BID 02/19/19 Guaifenesin/Dextromethorphan [Robitussin Cough-Chest Dm Liq] 237 ml PO PRN PRN 02/19/19 Hydrocortisone Acetate [Anusol Hc Suppository -] 25 mg RC PRN PRN 02/19/19 Ipratropium/Albuterol Sulfate [Iprat-Albut 0.5-3(2.5) mg/3 ml] 3 ml IH Q4H PRN 02/19/19 Lidocaine/Prilocaine Cream [Lidocaine-Prilocaine Cream -] 1 applic TP Q4H Nystatin Ointment [Mycostatin Ointment -] 1 applic TP BID 02/19/19 Ondansetron [Zofran -] 4 mg PO PRN PRN 02/19/19 Pantoprazole Sodium [Protonix] 40 mg PO DAILY 02/19/19 Sennosides [Senna] 8.6 mg PO HS 02/19/19 Sertraline HCl [Zoloft -] 75 mg PO DAILY 02/19/19 Silver Sulfadiazine [Silvadene] 1 applic TP DAILY 02/19/19 Vitamin B Comp W-C [Nephro-Evert -] 1 tablet PO DAILY 02/19/19 Zinc Oxide 20% Topical Oint 454 gm TD BID 02/19/19 Zinc Sulfate [Orazinc -] 220 mg PO DAILY 02/19/19 Buspirone HCl [Buspar -] 5 mg PO BID tablet 02/23/19 Fludrocortisone Acetate [Florinef -] 0.2 mg PO DAILY tablet 02/23/19 Melatonin 5 mg PO HS tab 02/23/19 Midodrine HCl [Proamatine -] 10 mg PO Q8H PRN tablet 02/23/19 Rivaroxaban [Xarelto] 15 mg PO DAILY@1800 tablet 02/23/19 Calcitriol [Calcitriol -] 0.75 mcg PO DAILY 03/11/19 Digoxin 125 mcg PO DAILY 03/11/19 Phenylephrine 0.25%/Starch [Anusol Suppository -] 1 each RC QID PRN 03/11/19 Vitamin B Comp W-C [Nephro-Evert -] 1 tablet PO DAILY 03/11/19 Hydrocortisone 0.5% Cream [Hytone 0.5% Cream -] 1 applic TP DAILY PRN tube 10/01 Insulin Sliding Scale [Novolog Vial Sliding Scale -] 1 vial SQ Q6H units Levothyroxine [Synthroid -] 25 mcg PO DAILY@0700 tablet 03/18/19 Polymyxin B Sulfate/Tmp [Polytrim Opthalmic Solution -] 1 drop OD Q4HWA drops 03/18/19 Prednisone 5 mg PO DAILY #3 tablet 03/18/19 traMADol HCL [Ultram -] 50 mg PO Q8H PRN tablet MDD 3 03/18/19 Family Medical History Family History: Unable to Obtain Review of Systems - Review of Systems Constitutional: reports: Malaise Eyes: reports: No Symptoms HENT: reports: No Symptoms Cardiovascular: reports: Edema Respiratory: reports: SOB Musculoskeletal: reports: Muscle Weakness Integumentary: reports: Bruising Neurological: reports: No Symptoms Endocrine: reports: No Symptoms Hematology/Lymphatic: reports: No Symptoms Psychiatric: reports: No Symptoms Physical Exam Vital Signs: Vital Signs Temperature 98.5 F 04/20/19 14:00 Pulse Rate 81 04/20/19 14:36 Respiratory Rate 20 04/20/19 14:05 Blood Pressure 106/60 04/20/19 14:05 O2 Sat by Pulse Oximetry (%) 97 04/20/19 18:16 Constitutional: Yes: Anxious Eyes: Yes: Conjunctiva Clear Cardiovascular: Yes: S1, S2 Respiratory: Yes: On BiPap Gastrointestinal: Yes: Soft, Abdomen, Obese Renal/: Yes: Incontinence Musculoskeletal: Yes: Muscle Weakness Edema: Yes Edema: LUE: 1+, RUE: 1+ Neurological: Yes: Oriented Psychiatric: Yes: Oriented Labs: CBC, BMP 04/20/19 14:52 04/20/19 14:52 Laboratory Tests 04/20/19 04/20/19 14:52 14:52 WBC 4.3 Hgb 9.1 L Sodium 130 L Potassium 5.1 BUN 52.8 H Creatinine 4.0 H B-Natriuretic Peptide > 71930.0 H Imaging - Results Chest X-ray: Report Reviewed Problem List - Problems (1) Acute exacerbation of congestive heart failure Code(s): I50.9 - HEART FAILURE, UNSPECIFIED Qualifiers: Heart failure type: unspecified Qualified Code(s): I50.9 - Heart failure, unspecified (2) Afib Code(s): I48.91 - UNSPECIFIED ATRIAL FIBRILLATION (3) COPD (chronic obstructive pulmonary disease) Code(s): J44.9 - CHRONIC OBSTRUCTIVE PULMONARY DISEASE, UNSPECIFIED Qualifiers: COPD type: unspecified COPD Qualified Code(s): J44.9 - Chronic obstructive pulmonary disease, unspecified (4) ESRD on hemodialysis Code(s): N18.6 - END STAGE RENAL DISEASE; Z99.2 - DEPENDENCE ON RENAL DIALYSIS (5) Hypoxia Code(s): R09.02 - HYPOXEMIA (6) Low oxygen saturation Code(s): R79.81 - ABNORMAL BLOOD-GAS LEVEL Assessment/Plan Current Medications Generic Name Dose Route Start Last Admin Trade Name Freq PRN Reason Stop Dose Admin Albuterol/Ipratropium 1 amp 04/20/19 17:40 Duoneb - NEB Q4H PRN WHEEZING Buspirone HCl 5 mg 04/20/19 22:00 Buspar - PO BID [facility] Digoxin 0.125 mg 04/21/19 10:00 Lanoxin - PO DAILY [facility] Insulin Aspart 1 vial 04/20/19 22:00 Novolog Vial Sliding Scale - SQ ACHS [facility] Protocol Levothyroxine Sodium 25 mcg 04/21/19 07:00 Synthroid - PO DAILY@0700 [facility] Midodrine 10 mg 04/20/19 17:40 Proamatine - PO Q8H PRN HYPOTENSION Multivit/Ca Carb/B Cmplx/FA/Prenat 1 tablet 04/21/19 10:00 Nephro-Evert - PO DAILY [facility] Nystatin 1 applic 04/20/19 22:00 Mycostatin Ointment - TP BID [facility] Pantoprazole Sodium 40 mg 04/21/19 10:00 Protonix - PO DAILY [facility] Prednisone 5 mg 04/21/19 10:00 Deltasone - PO DAILY [facility] Rivaroxaban 15 mg 04/20/19 18:00 Xarelto PO DAILY@1800 [facility] Senna 2 tab 04/20/19 22:00 Senna - PO HS [facility] Sertraline HCl 75 mg 04/21/19 10:00 Zoloft - PO DAILY [facility] Impression 1. ESRD 2. shortness of breath 3. resp failure requiring bipap 4. chf 5. dvt 6. anemia 7. a-fib 8. hypothyroid 9. pleural effusion 10. hypotension Plan - cont bipap - HD today - cont midodrine - albumin with hd - renal diet with fluid restriction - HD right thigh cath, 3 k bath, 3 15 time, 300 abf
[2019-04-20] MEDS ORDERED: SODIUM CHLORIDE 250 ML IV PRN (18:44)
[2019-04-20] MEDS ORDERED: EPOETIN ALFA 10,000 UNIT/1 ML VIAL IVPUSH ONE (21:00)
[2019-04-20] MEDS: ALBUMIN HUMAN 25% 12.5 GM/50 ML VIAL IVPB SCH ×4 (21:00→22:30)
[2019-04-20] MEDS: RIVAROXABAN 15 MG TABLET PO SCH (21:16)
[2019-04-20] MEDS: MIDODRINE HCL 5 MG TABLET PO SCH (21:16)
[2019-04-21] MEDS ORDERED: MELATONIN 5 MG TABLETS PO ONE (00:59)
[2019-04-21] MEDS: NYSTATIN 100000 UNIT/GM TOPICAL OINTMENT 15 GM TUBE TP SCH ×3 (01:29→22:18)
[2019-04-21] MEDS: busPIRone HCL 5 MG TABLET PO SCH ×3 (01:30→22:18)
[2019-04-21] MEDS: SENNOSIDES 8.6MG TABLET (FP) PO SCH ×2 (01:30→22:19)
[2019-04-21] MEDS: INSULIN SLIDING SCALE (NOVOLOG) 1 VIAL SQ SCH ×5 (01:30→22:18)
[2019-04-21] MEDS ORDERED: PATIENT'S OWN MEDICATION (NON-FORMULARY) (Midodrine Hcl [Midodrine Hcl] 10 MG) PO SCH (06:00)
[2019-04-21] MEDS: LEVOTHYROXINE NA 25 MCG TABLET (FP) PO SCH (06:20)
[2019-04-21] MEDS ORDERED: PT OWN MED DRAWER 7, Y5N ONE ×5 (09:53→22:13)
[2019-04-21] MEDS: PANTOPRAZOLE 40 MG TABLET (FP) PO SCH (09:58)
[2019-04-21] MEDS: predniSONE 5 MG TABLET (UD) PO SCH (09:58)
[2019-04-21] MEDS: VITAMIN B COMP W-C 1 EA TABLET PO SCH (09:58)
[2019-04-21] MEDS: SERTRALINE HCL 50 MG TABLET (FP) PO SCH (09:59)
[2019-04-21] MEDS ORDERED: DIGOXIN 0.125 MG TABLET (FP) PO SCH (10:00)
[2019-04-21] MEDS: MIDODRINE HCL 5 MG TABLET PO SCH ×3 (10:00→18:31)
--- NOTE | 2019-04-21 10:49 | HP ---
Admitting History and Physical - Admission Chief Complaint: came in for shortness of breath History of Present Illness: patient 73 yr old female came in for shortness of breath and missed HD - Past Medical History Cardiovascular: Yes: AFIB, CHF, Deep Vein Thrombosis Pulmonary: Yes: Bronchitis, Pneumonia, Previously Intubated, Pulmonary Embolus, Sleep Apnea Gastrointestinal: Yes: GERD Renal/: Yes: Renal Failure, Hemodialysis Heme/Onc: Yes: Anemia Psych: Yes: Depression Endocrine: Yes: Diabetes Mellitus, Hypothyroidism - Smoking History Smoking history: Unknown if ever smoked Have you smoked in the past 12 months: No - Alcohol/Substance Use Hx Alcohol Use: No History of Substance Use: reports: None - Social History ADL: Support Services History of Recent Travel: No Home Medications - Allergies Allergies/Adverse Reactions: Allergies Allergy/AdvReac Type Severity Reaction Status Date / Time No Known Allergies Allergy Unverified 01/19/19 11:43 - Home Medications Home Medications: Ambulatory Orders Ammonium Lactate Lotion [Lac-Hydrin 12] 1 applic TP BID 02/19/19 Bacitracin - [Bacitracin Topical Ointment -] 1 applic TP BID 02/19/19 Buspirone HCl [Buspar -] 10 mg PO BID 02/19/19 Hydrocortisone Acetate [Anusol Hc Suppository -] 1 supp RC DAILY PRN 02/19/19 Ipratropium/Albuterol Sulfate [Iprat-Albut 0.5-3(2.5) mg/3 ml] 1 neb IH Q4H 12/31 Lidocaine/Prilocaine Cream [Lidocaine-Prilocaine Cream -] 1 applic TP Q4H PRN Nystatin Ointment [Mycostatin Ointment -] 1 applic TP BID 02/19/19 Ondansetron [Zofran -] 4 mg PO Q6H PRN 02/19/19 Pantoprazole Sodium [Protonix] 40 mg PO DAILY 02/19/19 Sennosides [Senna] 2 tab PO HS 02/19/19 Silver Sulfadiazine [Silvadene] 1 applic TP DAILY 02/19/19 Vitamin B Comp W-C [Nephro-Evert -] 1 tablet PO DAILY 02/19/19 Zinc Oxide 20% Topical Oint 1 applic TP BID 02/19/19 Zinc Sulfate [Orazinc -] 220 mg PO DAILY 02/19/19 Calcitriol [Calcitriol -] 0.75 mcg PO DAILY 03/11/19 Digoxin 125 mcg PO DAILY 03/11/19 Levothyroxine [Synthroid -] 25 mcg PO DAILY@0700 tablet 03/18/19 traMADol HCL [Ultram -] 50 mg PO Q8H PRN tablet 03/18/19 Acetaminophen [Tylenol] 650 mg PO Q6H PRN 04/20/19 Alprazolam 0.25 mg PO BID 04/20/19 Apixaban [Eliquis] 5 mg PO BID 04/20/19 Clotrimazole 1 applic TP BID 04/20/19 Collagenase Clostridium Hist. [Santyl] 1 applic TP DAILY 04/20/19 Fludrocortisone Acetate [Florinef -] 0.1 mg PO DAILY 04/20/19 Hydrocortisone 0.5% Cream [Hytone 0.5% Cream -] 1 applic TP DAILY 04/20/19 Insulin Lispro [Humalog] 0 unit SQ BIDAC 04/20/19 Melatonin 10 mg PO HS 04/20/19 Midodrine HCl 10 mg PO TID 04/20/19 Nystatin/Triamcin [Nystatin-Triamcinolone Cream] 1 applic TP DAILY 04/20/19 Review of Systems - Review of Systems Respiratory: reports: SOB Physical Examination Vital Signs: Vital Signs Temperature 97.6 F 04/21/19 09:45 Pulse Rate 76 04/21/19 09:45 Respiratory Rate 20 04/21/19 09:45 Blood Pressure 83/50 L 04/21/19 09:45 O2 Sat by Pulse Oximetry (%) 97 04/21/19 07:55 Constitutional: Yes: Calm Cardiovascular: Yes: Regular Rate and Rhythm, S1, S2 Respiratory: Yes: Diminished, On BiPap Labs: CBC, BMP 04/20/19 14:52 04/20/19 14:52 Problem List - Problems (1) Acute exacerbation of congestive heart failure Assessment/Plan: bipap HD elevated BNP Code(s): I50.9 - HEART FAILURE, UNSPECIFIED (2) Afib Assessment/Plan: xarewlto Code(s): I48.91 - UNSPECIFIED ATRIAL FIBRILLATION (3) Hypothyroid Assessment/Plan: synthroid Code(s): E03.9 - HYPOTHYROIDISM, UNSPECIFIED
--- NOTE | 2019-04-21 12:00 | EKG ---
Test Reason : Blood Pressure : / mmHG Vent. Rate : 086 BPM Atrial Rate : 138 BPM P-R Int : 000 ms QRS Dur : 060 ms QT Int : 332 ms P-R-T Axes : 000 158 032 degrees QTc Int : 397 ms SUSPECT ARM LEAD REVERSAL, INTERPRETATION ASSUMES NO REVERSAL ATRIAL FIBRILLATION WITH PREMATURE VENTRICULAR OR ABERRANTLY CONDUCTED COMPLEXES LOW VOLTAGE QRS CANNOT RULE OUT INFERIOR INFARCT , AGE UNDETERMINED ANTEROLATERAL INFARCT (CITED ON OR BEFORE 28-JAN-2019) ABNORMAL ECG WHEN COMPARED WITH ECG OF 20-MAR-2019 21:28, NO SIGNIFICANT CHANGE WAS FOUND Confirmed by ALISTAIR GÓMEZ MD ([id number]) on 04/21/2019 11:59:56 AM Referred By: Confirmed By:ALISTAIR GÓMEZ MD
--- NOTE | 2019-04-21 12:25 | PN ---
Teaching Attending Note Name of Resident: Dev Cohn ATTENDING PHYSICIAN STATEMENT I saw and evaluated the patient. I reviewed the resident's note and discussed the case with the resident. I agree with the resident's findings and plan as documented. SUBJECTIVE: Reports breathing is improving s/p HD. Remains on BiPAP. OBJECTIVE: Vital Signs Period Temp Pulse Resp BP Sys/Jhaveri Pulse Ox Last 24 Hr 97.6 F-98.5 F 51-112 16-30 83-110/44-62 97-100 Intake & Output 04/18/19 04/19/19 04/20/19 04/21/19 23:59 23:59 23:59 23:59 Intake Total 350 300 Output Total 2500 Balance 350 -2200 Weight 72.575 kg 72.393 kg Gen: NAD on BiPAP Heart: RRR Lung: decreased breath sounds at the bases Abd: soft, nontender Ext: no edema CBC, BMP 04/20/19 14:52 Active Medications Albuterol/Ipratropium (Duoneb -) 1 amp NEB Q4H PRN PRN Reason: WHEEZING Buspirone HCl (Buspar -) 5 mg PO BID [facility] Last Admin: 04/21/19 09:58 Dose: 5 mg Sodium Chloride (Normal Saline -) 250 mls @ 3,000 mls/hr IV PRN PRN PRN Reason: Hypotension during Dialysis Stop: 04/21/19 18:45 Insulin Aspart (Novolog Vial Sliding Scale -) 1 vial SQ ACHS [facility]; Protocol Last Admin: 04/21/19 12:15 Dose: Not Given Levothyroxine Sodium (Synthroid -) 25 mcg PO DAILY@0700 [facility] Last Admin: 04/21/19 06:20 Dose: 25 mcg Melatonin (Melatonin) 10 mg PO HS [facility] Midodrine (Proamatine -) 10 mg PO TID-MID [facility] Last Admin: 04/21/19 10:00 Dose: 10 mg Multivit/Ca Carb/B Cmplx/FA/Prenat (Nephro-Evert -) 1 tablet PO DAILY [facility] Last Admin: 04/21/19 09:58 Dose: 1 tablet Nystatin (Mycostatin Ointment -) 1 applic TP BID [facility] Last Admin: 04/21/19 12:10 Dose: 1 applic Pantoprazole Sodium (Protonix -) 40 mg PO DAILY [facility] Last Admin: 04/21/19 09:58 Dose: 40 mg Prednisone (Deltasone -) 5 mg PO DAILY [facility] Last Admin: 04/21/19 09:58 Dose: 5 mg Rivaroxaban (Xarelto) 15 mg PO DAILY@1800 [facility] Last Admin: 04/20/19 21:16 Dose: 15 mg Senna (Senna -) 2 tab PO HS [facility] Last Admin: 04/21/19 01:30 Dose: 2 tab Sertraline HCl (Zoloft -) 75 mg PO DAILY [facility] Last Admin: 04/21/19 09:59 Dose: 75 mg ASSESSMENT AND PLAN: Acute Respiratory Failure requiring NIPPV Volume Overload Acute on Chronic Diastolic Heart Failure Pulmonary HTN ESRD on HD Atrial Fibrillation Pleural Effusion h/o DVT Anemia - HD per renal - daily weights - BiPAP to assist in work of breathing - O2 to keep SpO2 >90% - rate control - continue anticoagulation
[2019-04-21 12:51] LABS: ALBUMIN 3.4 g/dl (3.4-5.0); BILIRUBIN,TOTAL 0.4 mg/dL (0.2-1); BLOOD UREA NITROGEN 38.2 mg/dL (7-18); CALCIUM 8.9 mg/dL (8.5-10.1); CREATININE 3.4 mg/dL (0.55-1.3); POTASSIUM 4.4 mmol/L (3.5-5.1); TOT PROT 6.9 g/dl (6.4-8.2)
[2019-04-21 15:05] VITALS: BMI 29.0
--- NOTE | 2019-04-21 15:31 | CON.CARD ---
Consult Consult Specialty:: Cardiology Reason for Consultation:: Bradycardia - History of Present Illness Chief Complaint: No new complaints History of Present Illness: This is a 73 y/o female with past medical history of mixed CHF, DVT, COPD, ESRD (HD on MWF), anemia, Afib w/ slow ventricular response(on Xarelto), DM, hypothyroidism, and depression. NHR and was SOB. Past history of hypotension and was on midodrine and florineff. We were consulted for bradycardia. On review of her telem monitor, she was in AFIB at 67 BPM and the alarm review did not reveal episodes of slow heart rates. - Past Medical History Cardio/Vascular: Yes: AFIB, CHF, Deep Vein Thrombosis Pulmonary: Yes: Bronchitis, Pneumonia, Previously Intubated, Pulmonary Embolus, Sleep Apnea Gastrointestinal: Yes: GERD Renal/: Yes: Renal Failure, Hemodialysis Psych: Yes: Depression Endocrine: Yes: Diabetes Mellitus, Hypothyroidism - Alcohol/Substance Use Hx Alcohol Use: No History of Substance Use: reports: None - Smoking History Smoking history: Unknown if ever smoked Have you smoked in the past 12 months: No - Social History ADL: Support Services History of Recent Travel: No Home Medications - Allergies Allergies/Adverse Reactions: Allergies Allergy/AdvReac Type Severity Reaction Status Date / Time No Known Allergies Allergy Unverified 01/19/19 11:43 - Home Medications Home Medications: Ambulatory Orders Ammonium Lactate Lotion [Lac-Hydrin 12] 1 applic TP BID 02/19/19 Bacitracin - [Bacitracin Topical Ointment -] 1 applic TP BID 02/19/19 Buspirone HCl [Buspar -] 10 mg PO BID 02/19/19 Hydrocortisone Acetate [Anusol Hc Suppository -] 1 supp RC DAILY PRN 02/19/19 Ipratropium/Albuterol Sulfate [Iprat-Albut 0.5-3(2.5) mg/3 ml] 1 neb IH Q4H 12/31 Lidocaine/Prilocaine Cream [Lidocaine-Prilocaine Cream -] 1 applic TP Q4H PRN Nystatin Ointment [Mycostatin Ointment -] 1 applic TP BID 02/19/19 Ondansetron [Zofran -] 4 mg PO Q6H PRN 02/19/19 Pantoprazole Sodium [Protonix] 40 mg PO DAILY 02/19/19 Sennosides [Senna] 2 tab PO HS 02/19/19 Silver Sulfadiazine [Silvadene] 1 applic TP DAILY 02/19/19 Vitamin B Comp W-C [Nephro-Evert -] 1 tablet PO DAILY 02/19/19 Zinc Oxide 20% Topical Oint 1 applic TP BID 02/19/19 Zinc Sulfate [Orazinc -] 220 mg PO DAILY 02/19/19 Calcitriol [Calcitriol -] 0.75 mcg PO DAILY 03/11/19 Digoxin 125 mcg PO DAILY 03/11/19 Levothyroxine [Synthroid -] 25 mcg PO DAILY@0700 tablet 03/18/19 traMADol HCL [Ultram -] 50 mg PO Q8H PRN tablet 03/18/19 Acetaminophen [Tylenol] 650 mg PO Q6H PRN 04/20/19 Alprazolam 0.25 mg PO BID 04/20/19 Apixaban [Eliquis] 5 mg PO BID 04/20/19 Clotrimazole 1 applic TP BID 04/20/19 Collagenase Clostridium Hist. [Santyl] 1 applic TP DAILY 04/20/19 Fludrocortisone Acetate [Florinef -] 0.1 mg PO DAILY 04/20/19 Hydrocortisone 0.5% Cream [Hytone 0.5% Cream -] 1 applic TP DAILY 04/20/19 Insulin Lispro [Humalog] 0 unit SQ BIDAC 04/20/19 Melatonin 10 mg PO HS 04/20/19 Midodrine HCl 10 mg PO TID 04/20/19 Nystatin/Triamcin [Nystatin-Triamcinolone Cream] 1 applic TP DAILY 04/20/19 Vital Signs: Vital Signs Temperature 98.6 F 04/21/19 14:28 Pulse Rate 79 04/21/19 14:28 Respiratory Rate 20 04/21/19 14:28 Blood Pressure 100/61 04/21/19 14:28 O2 Sat by Pulse Oximetry (%) 95 04/21/19 09:00 Constitutional: Yes: No Distress Eyes: Yes: WNL HENT: Yes: WNL Neck: Yes: WNL Respiratory: Yes: CTA Bilaterally Gastrointestinal: Yes: Normal Bowel Sounds, Soft Cardiovascular: Yes: Pulse Irregular Heart Sounds: Yes: S1, S2 Extremities: Yes: WNL Edema: No Neurological: Yes: Alert, Oriented - Other Data Labs, Other Data: CBC, BMP 04/20/19 14:52 04/21/19 11:45 Troponin, BNP 04/20/19 14:52 Troponin I 0.07 H B-Natriuretic Peptide > 60798.0 H Troponin, BNP 04/20/19 14:52 Troponin I 0.07 H B-Natriuretic Peptide > 02079.0 H Assessment/Plan 73 y/o female with past medical history of mixed CHF, DVT, COPD, ESRD (HD on MWF ), anemia, Afib w/ slow ventricular response(on Xarelto), DM, hypothyroidism, and depression. NHR and was SOB. Past history of hypotension and was on midodrine and florineff. We were consulted for bradycardia. On review of her telem monitor, she was in AFIB at 67 BPM and the alarm review did not reveal episodes of slow heart rates. Afib Rates are now favorable. Continue AC Given her renal dysfunction, would favor Eliquis over Xarelto given that Eliquis is more hepatically than renally cleared. Presently no evidence for slow heart rates Hypotension Continue Midodrine (Proamatine -) 10 mg PO TID Call prn
[2019-04-21] MEDS: RIVAROXABAN 15 MG TABLET PO SCH (17:24)
--- NOTE | 2019-04-21 18:10 | PN ---
Progress Note, Physician History of Present Illness: Pt seen and examined at bedside. She appears comfortable. She feels that breathing is improved. - Current Medication List Current Medications: Active Medications Albuterol/Ipratropium (Duoneb -) 1 amp NEB Q4H PRN PRN Reason: WHEEZING Buspirone HCl (Buspar -) 5 mg PO BID [facility] Last Admin: 04/21/19 09:58 Dose: 5 mg Sodium Chloride (Normal Saline -) 250 mls @ 3,000 mls/hr IV PRN PRN PRN Reason: Hypotension during Dialysis Stop: 04/21/19 18:45 Insulin Aspart (Novolog Vial Sliding Scale -) 1 vial SQ ACHS [facility]; Protocol Last Admin: 04/21/19 17:23 Dose: Not Given Levothyroxine Sodium (Synthroid -) 25 mcg PO DAILY@0700 [facility] Last Admin: 04/21/19 06:20 Dose: 25 mcg Melatonin (Melatonin) 10 mg PO [facility] Midodrine (Proamatine -) 10 mg PO TID-MID [facility] Last Admin: 04/21/19 13:16 Dose: 10 mg Multivit/Ca Carb/B Cmplx/FA/Prenat (Nephro-Evert -) 1 tablet PO DAILY [facility] Last Admin: 04/21/19 09:58 Dose: 1 tablet Nystatin (Mycostatin Ointment -) 1 applic TP BID [facility] Last Admin: 04/21/19 12:10 Dose: 1 applic Pantoprazole Sodium (Protonix -) 40 mg PO DAILY [facility] Last Admin: 04/21/19 09:58 Dose: 40 mg Prednisone (Deltasone -) 5 mg PO DAILY [facility] Last Admin: 04/21/19 09:58 Dose: 5 mg Rivaroxaban (Xarelto) 15 mg PO DAILY@1800 [facility] Last Admin: 04/21/19 17:24 Dose: 15 mg Senna (Senna -) 2 tab PO HS [facility] Last Admin: 04/21/19 01:30 Dose: 2 tab Sertraline HCl (Zoloft -) 75 mg PO DAILY [facility] Last Admin: 04/21/19 09:59 Dose: 75 mg - Objective Vital Signs: Vital Signs Temperature 98.6 F 04/21/19 14:28 Pulse Rate 79 04/21/19 14:28 Respiratory Rate 20 04/21/19 14:28 Blood Pressure 100/61 04/21/19 14:28 O2 Sat by Pulse Oximetry (%) 95 04/21/19 09:00 Constitutional: Yes: Calm Eyes: Yes: Conjunctiva Clear HENT: Yes: Atraumatic Cardiovascular: Yes: S1, S2 Respiratory: Yes: On Nasal O2 Gastrointestinal: Yes: Soft Genitourinary: Yes: WNL, Incontinence Musculoskeletal: Yes: Muscle Weakness Edema: Yes Edema: RUE: 1+, LLE: Trace, RLE: Trace Neurological: Yes: Oriented Psychiatric: Yes: Oriented Labs: CBC, BMP 04/20/19 14:52 04/21/19 11:45 Problem List - Problems (1) Acute exacerbation of congestive heart failure Code(s): I50.9 - HEART FAILURE, UNSPECIFIED Qualifiers: Heart failure type: unspecified Qualified Code(s): I50.9 - Heart failure, unspecified (2) Afib Code(s): I48.91 - UNSPECIFIED ATRIAL FIBRILLATION (3) COPD (chronic obstructive pulmonary disease) Code(s): J44.9 - CHRONIC OBSTRUCTIVE PULMONARY DISEASE, UNSPECIFIED Qualifiers: COPD type: unspecified COPD Qualified Code(s): J44.9 - Chronic obstructive pulmonary disease, unspecified (4) ESRD on hemodialysis Code(s): N18.6 - END STAGE RENAL DISEASE; Z99.2 - DEPENDENCE ON RENAL DIALYSIS (5) Hypoxia Code(s): R09.02 - HYPOXEMIA (6) Low oxygen saturation Code(s): R79.81 - ABNORMAL BLOOD-GAS LEVEL Assessment/Plan Current Medications Generic Name Dose Route Start Last Admin Trade Name Freq PRN Reason Stop Dose Admin Albuterol/Ipratropium 1 amp 04/20/19 17:40 Duoneb - NEB Q4H PRN WHEEZING Buspirone HCl 5 mg 04/20/19 22:00 04/21/19 09:58 Buspar - PO 5 mg BID [facility] Administration Sodium Chloride 250 mls @ 3,000 mls/hr 04/20/19 18:44 Normal Saline - IV 04/21/19 18:45 PRN PRN Hypotension during Dialysis Insulin Aspart 1 vial 04/20/19 22:00 04/21/19 17:23 Novolog Vial Sliding Scale - SQ Not Given ACHS [facility] Protocol Levothyroxine Sodium 25 mcg 04/21/19 07:00 04/21/19 06:20 Synthroid - PO 25 mcg DAILY@0700 [facility] Administration Melatonin 10 mg 04/21/19 22:00 Melatonin PO HS [facility] Midodrine 10 mg 04/20/19 20:00 04/21/19 13:16 Proamatine - PO 10 mg TID-MID [facility] Administration Multivit/Ca Carb/B Cmplx/FA/Prenat 1 tablet 04/21/19 10:00 04/21/19 09:58 Nephro-Evert - PO 1 tablet DAILY [facility] Administration Nystatin 1 applic 04/20/19 22:00 04/21/19 12:10 Mycostatin Ointment - TP 1 applic BID [facility] Administration Pantoprazole Sodium 40 mg 04/21/19 10:00 04/21/19 09:58 Protonix - PO 40 mg DAILY [facility] Administration Prednisone 5 mg 04/21/19 10:00 04/21/19 09:58 Deltasone - PO 5 mg DAILY [facility] Administration Rivaroxaban 15 mg 04/20/19 18:00 04/21/19 17:24 Xarelto PO 15 mg DAILY@1800 [facility] Administration Senna 2 tab 04/20/19 22:00 04/21/19 01:30 Senna - PO 2 tab HS [facility] Administration Sertraline HCl 75 mg 04/21/19 10:00 04/21/19 09:59 Zoloft - PO 75 mg DAILY [facility] Administration Impression 1. ESRD 2. shortness of breath 3. resp failure requiring bipap 4. chf 5. dvt 6. anemia 7. a-fib 8. hypothyroid 9. pleural effusion 10. hypotension Plan - HD tomorrow - cont bipap as needed - renal diet - cont midodrine - albumin with hd - renal diet with fluid restriction - HD right thigh cath, 3 k bath, 3 15 time, 300 abf
[2019-04-21] MEDS ORDERED: SODIUM CHLORIDE 250 ML IV PRN (18:11)
[2019-04-21] MEDS: MELATONIN 5 MG TABLETS PO SCH (22:18)
[2019-04-21] MEDS: ALBUTEROL SO4 2.5/IPRATROPIUM 0.5 INH SOL 3 ML VIAL.NEB. NEB PRN (23:37)
[2019-04-22] MEDS: ACETAMINOPHEN 325 MG TABLET (FP) PO PRN ×2 (00:12→10:58)
[2019-04-22] MEDS: INSULIN SLIDING SCALE (NOVOLOG) 1 VIAL SQ SCH ×4 (06:42→21:35)
[2019-04-22] MEDS: LEVOTHYROXINE NA 25 MCG TABLET (FP) PO SCH (06:43)
[2019-04-22] MEDS: ALBUTEROL SO4 2.5/IPRATROPIUM 0.5 INH SOL 3 ML VIAL.NEB. NEB PRN ×2 (07:42→20:34)
[2019-04-22] MEDS: MIDODRINE HCL 5 MG TABLET PO SCH ×3 (10:45→17:22)
[2019-04-22] MEDS: VITAMIN B COMP W-C 1 EA TABLET PO SCH (10:47)
[2019-04-22] MEDS: SERTRALINE HCL 50 MG TABLET (FP) PO SCH (10:47)
[2019-04-22] MEDS: PANTOPRAZOLE 40 MG TABLET (FP) PO SCH (10:47)
[2019-04-22] MEDS: predniSONE 5 MG TABLET (UD) PO SCH (10:48)
[2019-04-22] MEDS: busPIRone HCL 5 MG TABLET PO SCH ×2 (10:48→21:34)
[2019-04-22] MEDS: NYSTATIN 100000 UNIT/GM TOPICAL OINTMENT 15 GM TUBE TP SCH ×2 (10:54→21:35)
[2019-04-22] MEDS: traMADol HCL 50 MG TABLET PO PRN (11:51)
--- NOTE | 2019-04-22 12:13 | PN ---
Progress Note, Physician Chief Complaint: patient seen and examined very anxious and comlaining of pain in her perineal area she is breathing better today to get HD at bedside - Current Medication List Current Medications: Active Medications Acetaminophen (Tylenol -) 650 mg PO Q6H PRN PRN Reason: PAIN LEVEL 1-5 Last Admin: 04/22/19 10:58 Dose: 650 mg Albumin Human (Albumin Human 25%) 12.5 gm IVPB Q30M [facility] Albuterol/Ipratropium (Duoneb -) 1 amp NEB Q4H PRN PRN Reason: WHEEZING Last Admin: 04/22/19 07:42 Dose: 1 amp Buspirone HCl (Buspar -) 5 mg PO BID [facility] Last Admin: 04/22/19 10:48 Dose: 5 mg Epoetin Memo (Procrit -) 10,000 unit IVPUSH ONCE ONE Stop: 04/22/19 18:12 Sodium Chloride (Normal Saline -) 250 mls @ 3,000 mls/hr IV PRN PRN PRN Reason: Hypotension during Dialysis Stop: 04/22/19 18:11 Insulin Aspart (Novolog Vial Sliding Scale -) 1 vial SQ [facility]; Protocol Last Admin: 04/22/19 11:05 Dose: Not Given Levothyroxine Sodium (Synthroid -) 25 mcg PO DAILY@0700 [facility] Last Admin: 04/22/19 06:43 Dose: 25 mcg Melatonin (Melatonin) 10 mg PO HS [facility] Last Admin: 04/21/19 22:18 Dose: 10 mg Midodrine (Proamatine -) 10 mg PO TID-MID [facility] Last Admin: 04/22/19 10:45 Dose: 10 mg Multivit/Ca Carb/B Cmplx/FA/Prenat (Nephro-Evert -) 1 tablet PO DAILY [facility] Last Admin: 04/22/19 10:47 Dose: 1 tablet Nystatin (Mycostatin Ointment -) 1 applic TP BID [facility] Last Admin: 04/22/19 10:54 Dose: 1 applic Pantoprazole Sodium (Protonix -) 40 mg PO DAILY [facility] Last Admin: 04/22/19 10:47 Dose: 40 mg Prednisone (Deltasone -) 5 mg PO DAILY [facility] Last Admin: 04/22/19 10:48 Dose: 5 mg Rivaroxaban (Xarelto) 15 mg PO DAILY@1800 [facility] Last Admin: 04/21/19 17:24 Dose: 15 mg Senna (Senna -) 2 tab PO HS [facility] Last Admin: 04/21/19 22:19 Dose: 2 tab Sertraline HCl (Zoloft -) 75 mg PO DAILY [facility] Last Admin: 04/22/19 10:47 Dose: 75 mg Silver Sulfadiazine (Silvadene -) 1 applic TP BID [facility] Tramadol HCl (Ultram -) 50 mg PO Q8H PRN PRN Reason: PAIN LEVEL 7 - 10 Last Admin: 04/22/19 11:51 Dose: 50 mg - Objective Vital Signs: Vital Signs Temperature 97.7 F 04/22/19 09:16 Pulse Rate 93 H 04/22/19 09:16 Respiratory Rate 18 04/22/19 09:16 Blood Pressure 93/48 L 04/22/19 09:16 O2 Sat by Pulse Oximetry (%) 97 04/22/19 07:40 Constitutional: Yes: Anxious Cardiovascular: Yes: Regular Rate and Rhythm, S1, S2 Respiratory: Yes: Diminished Gastrointestinal: Yes: Normal Bowel Sounds, Soft Neurological: Yes: Alert Labs: CBC, BMP 04/20/19 14:52 04/21/19 11:45 Problem List - Problems (1) Acute exacerbation of congestive heart failure Assessment/Plan: bipap as needed HD Code(s): I50.9 - HEART FAILURE, UNSPECIFIED (2) Afib Assessment/Plan: xarelto Code(s): I48.91 - UNSPECIFIED ATRIAL FIBRILLATION (3) Hypothyroid Assessment/Plan: synthroid Code(s): E03.9 - HYPOTHYROIDISM, UNSPECIFIED (4) Excoriation of buttock Assessment/Plan: silavedena cream and tramadol for pain Code(s): S30.810A - ABRASION OF LOWER BACK AND PELVIS, INITIAL ENCOUNTER
--- NOTE | 2019-04-22 12:53 | PN ---
Progress Note, Physician History of Present Illness: Pt seen and examined at bedside. She is awake and appears comfortable. She is still on bipap. - Current Medication List Current Medications: Active Medications Acetaminophen (Tylenol -) 650 mg PO Q6H PRN PRN Reason: PAIN LEVEL 1-5 Last Admin: 04/22/19 10:58 Dose: 650 mg Albumin Human (Albumin Human 25%) 12.5 gm IVPB Q30M [facility] Albuterol/Ipratropium (Duoneb -) 1 amp NEB Q4H PRN PRN Reason: WHEEZING Last Admin: 04/22/19 07:42 Dose: 1 amp Apixaban (Eliquis -) 2.5 mg PO BID [facility] Buspirone HCl (Buspar -) 5 mg PO BID [facility] Last Admin: 04/22/19 10:48 Dose: 5 mg Epoetin Memo (Procrit -) 10,000 unit IVPUSH ONCE ONE Stop: 04/22/19 18:12 Sodium Chloride (Normal Saline -) 250 mls @ 3,000 mls/hr IV PRN PRN PRN Reason: Hypotension during Dialysis Stop: 04/22/19 18:11 Insulin Aspart (Novolog Vial Sliding Scale -) 1 vial SQ ACHS [facility]; Protocol Last Admin: 04/22/19 11:05 Dose: Not Given Levothyroxine Sodium (Synthroid -) 25 mcg PO DAILY@0700 [facility] Last Admin: 04/22/19 06:43 Dose: 25 mcg Melatonin (Melatonin) 10 mg PO HS [facility] Last Admin: 04/21/19 22:18 Dose: 10 mg Midodrine (Proamatine -) 10 mg PO TID-MID [facility] Last Admin: 04/22/19 10:45 Dose: 10 mg Multivit/Ca Carb/B Cmplx/FA/Prenat (Nephro-Evert -) 1 tablet PO DAILY [facility] Last Admin: 04/22/19 10:47 Dose: 1 tablet Nystatin (Mycostatin Ointment -) 1 applic TP BID [facility] Last Admin: 04/22/19 10:54 Dose: 1 applic Pantoprazole Sodium (Protonix -) 40 mg PO DAILY [facility] Last Admin: 04/22/19 10:47 Dose: 40 mg Prednisone (Deltasone -) 5 mg PO DAILY [facility] Last Admin: 04/22/19 10:48 Dose: 5 mg Senna (Senna -) 2 tab PO HS [facility] Last Admin: 04/21/19 22:19 Dose: 2 tab Sertraline HCl (Zoloft -) 75 mg PO DAILY [facility] Last Admin: 04/22/19 10:47 Dose: 75 mg Silver Sulfadiazine (Silvadene -) 1 applic TP BID [facility] Tramadol HCl (Ultram -) 50 mg PO Q8H PRN PRN Reason: PAIN LEVEL 7 - 10 Last Admin: 04/22/19 11:51 Dose: 50 mg - Objective Vital Signs: Vital Signs Temperature 97.7 F 04/22/19 09:16 Pulse Rate 93 H 04/22/19 09:16 Respiratory Rate 18 04/22/19 09:16 Blood Pressure 93/48 L 04/22/19 09:16 O2 Sat by Pulse Oximetry (%) 95 04/22/19 12:18 Constitutional: Yes: Calm Eyes: Yes: Conjunctiva Clear HENT: Yes: Atraumatic Neck: Yes: Supple Cardiovascular: Yes: S1, S2 Respiratory: Yes: On BiPap Gastrointestinal: Yes: Soft Genitourinary: Yes: Incontinence Musculoskeletal: Yes: Muscle Weakness Edema: Yes Edema: RUE: 1+, LLE: Trace, RLE: Trace Neurological: Yes: Oriented Labs: CBC, BMP 04/20/19 14:52 04/21/19 11:45 Problem List - Problems (1) Acute exacerbation of congestive heart failure Code(s): I50.9 - HEART FAILURE, UNSPECIFIED Qualifiers: Heart failure type: unspecified Qualified Code(s): I50.9 - Heart failure, unspecified (2) Afib Code(s): I48.91 - UNSPECIFIED ATRIAL FIBRILLATION (3) COPD (chronic obstructive pulmonary disease) Code(s): J44.9 - CHRONIC OBSTRUCTIVE PULMONARY DISEASE, UNSPECIFIED Qualifiers: COPD type: unspecified COPD Qualified Code(s): J44.9 - Chronic obstructive pulmonary disease, unspecified (4) ESRD on hemodialysis Code(s): N18.6 - END STAGE RENAL DISEASE; Z99.2 - DEPENDENCE ON RENAL DIALYSIS (5) Hypoxia Code(s): R09.02 - HYPOXEMIA (6) Low oxygen saturation Code(s): R79.81 - ABNORMAL BLOOD-GAS LEVEL Assessment/Plan Current Medications Generic Name Dose Route Start Last Admin Trade Name Freq PRN Reason Stop Dose Admin Acetaminophen 650 mg 04/21/19 23:46 04/22/19 10:58 Tylenol - PO 650 mg Q6H PRN Administration PAIN LEVEL 1-5 Albumin Human 12.5 gm 04/22/19 18:15 Albumin Human 25% IVPB Q30M [facility] Albuterol/Ipratropium 1 amp 04/20/19 17:40 04/22/19 07:42 Duoneb - NEB 1 amp Q4H PRN Administration WHEEZING Apixaban 2.5 mg 04/23/19 10:00 Eliquis - PO BID [facility] Buspirone HCl 5 mg 04/20/19 22:00 04/22/19 10:48 Buspar - PO 5 mg BID [facility] Administration Epoetin Memo 10,000 unit 04/22/19 18:11 Procrit - IVPUSH 04/22/19 18:12 ONCE ONE Sodium Chloride 250 mls @ 3,000 mls/hr 04/21/19 18:11 Normal Saline - IV 04/22/19 18:11 PRN PRN Hypotension during Dialysis Insulin Aspart 1 vial 04/20/19 22:00 04/22/19 11:05 Novolog Vial Sliding Scale - SQ Not Given ACHS [facility] Protocol Levothyroxine Sodium 25 mcg 04/21/19 07:00 04/22/19 06:43 Synthroid - PO 25 mcg DAILY@0700 [facility] Administration Melatonin 10 mg 04/21/19 22:00 04/21/19 22:18 Melatonin PO 10 mg HS [facility] Administration Midodrine 10 mg 04/20/19 20:00 04/22/19 10:45 Proamatine - PO 10 mg TID-MID [facility] Administration Multivit/Ca Carb/B Cmplx/FA/Prenat 1 tablet 04/21/19 10:00 04/22/19 10:47 Nephro-Evert - PO 1 tablet DAILY [facility] Administration Nystatin 1 applic 04/20/19 22:00 04/22/19 10:54 Mycostatin Ointment - TP 1 applic BID [facility] Administration Pantoprazole Sodium 40 mg 04/21/19 10:00 04/22/19 10:47 Protonix - PO 40 mg DAILY [facility] Administration Prednisone 5 mg 04/21/19 10:00 04/22/19 10:48 Deltasone - PO 5 mg DAILY [facility] Administration Senna 2 tab 04/20/19 22:00 04/21/19 22:19 Senna - PO 2 tab HS [facility] Administration Sertraline HCl 75 mg 04/21/19 10:00 04/22/19 10:47 Zoloft - PO 75 mg DAILY [facility] Administration Silver Sulfadiazine 1 applic 04/22/19 11:45 Silvadene - TP BID [facility] Tramadol HCl 50 mg 04/22/19 11:42 04/22/19 11:51 Ultram - PO 50 mg Q8H PRN Administration PAIN LEVEL 7 - 10 Impression 1. ESRD 2. shortness of breath 3. resp failure requiring bipap 4. chf 5. dvt 6. anemia 7. a-fib 8. hypothyroid 9. pleural effusion 10. hypotension Plan - HD today - cont bipap as needed - renal diet with fluid restriction - cont midodrine - HD right thigh cath, 3 k bath, 3 15 time, 300 abf - next HD on Thursday
--- NOTE | 2019-04-22 13:26 | PN ---
Progress Note, Physician History of Present Illness: PULMONARY AWAKE,CONFUSED ON BIPAP,LESS DYSPNEIC, ON HD - Current Medication List Current Medications: Active Medications Acetaminophen (Tylenol -) 650 mg PO Q6H PRN PRN Reason: PAIN LEVEL 1-5 Last Admin: 04/22/19 10:58 Dose: 650 mg Albumin Human (Albumin Human 25%) 12.5 gm IVPB Q30M [facility] Stop: 04/22/19 14:01 Albuterol/Ipratropium (Duoneb -) 1 amp NEB Q4H PRN PRN Reason: WHEEZING Last Admin: 04/22/19 07:42 Dose: 1 amp Apixaban (Eliquis -) 2.5 mg PO BID [facility] Buspirone HCl (Buspar -) 5 mg PO BID [facility] Last Admin: 04/22/19 10:48 Dose: 5 mg Epoetin Memo (Procrit -) 10,000 unit IVPUSH ONCE ONE Stop: 04/22/19 13:31 Sodium Chloride (Normal Saline -) 250 mls @ 3,000 mls/hr IV PRN PRN PRN Reason: Hypotension during Dialysis Stop: 04/22/19 18:11 Insulin Aspart (Novolog Vial Sliding Scale -) 1 vial SQ ACHS [facility]; Protocol Last Admin: 04/22/19 11:05 Dose: Not Given Levothyroxine Sodium (Synthroid -) 25 mcg PO DAILY@0700 [facility] Last Admin: 04/22/19 06:43 Dose: 25 mcg Melatonin (Melatonin) 10 mg PO HS [facility] Last Admin: 04/21/19 22:18 Dose: 10 mg Midodrine (Proamatine -) 10 mg PO TID-MID [facility] Last Admin: 04/22/19 13:21 Dose: 10 mg Multivit/Ca Carb/B Cmplx/FA/Prenat (Nephro-Evert -) 1 tablet PO DAILY [facility] Last Admin: 04/22/19 10:47 Dose: 1 tablet Nystatin (Mycostatin Ointment -) 1 applic TP BID [facility] Last Admin: 04/22/19 10:54 Dose: 1 applic Pantoprazole Sodium (Protonix -) 40 mg PO DAILY [facility] Last Admin: 04/22/19 10:47 Dose: 40 mg Prednisone (Deltasone -) 5 mg PO DAILY [facility] Last Admin: 04/22/19 10:48 Dose: 5 mg Senna (Senna -) 2 tab PO HS [facility] Last Admin: 04/21/19 22:19 Dose: 2 tab Sertraline HCl (Zoloft -) 75 mg PO DAILY [facility] Last Admin: 04/22/19 10:47 Dose: 75 mg Silver Sulfadiazine (Silvadene -) 1 applic TP BID [facility] Tramadol HCl (Ultram -) 50 mg PO Q8H PRN PRN Reason: PAIN LEVEL 7 - 10 Last Admin: 04/22/19 11:51 Dose: 50 mg - Objective Vital Signs: Vital Signs Temperature 97.7 F 04/22/19 09:16 Pulse Rate 93 H 04/22/19 09:16 Respiratory Rate 18 04/22/19 09:16 Blood Pressure 93/48 L 04/22/19 09:16 O2 Sat by Pulse Oximetry (%) 95 04/22/19 12:18 Constitutional: Yes: Well Nourished, Anxious Eyes: Yes: WNL HENT: Yes: WNL Neck: Yes: WNL Cardiovascular: Yes: Pulse Irregular, S1, S2 Respiratory: Yes: Diminished, On BiPap, Poor Air Entry Gastrointestinal: Yes: Normal Bowel Sounds, Soft Extremities: Yes: WNL Edema: Yes Edema: RUE: Trace, LLE: Trace, RLE: Trace Labs: CBC, BMP Problem List - Problems (1) Acute exacerbation of congestive heart failure Code(s): I50.9 - HEART FAILURE, UNSPECIFIED (2) Acute exacerbation of congestive heart failure Code(s): I50.9 - HEART FAILURE, UNSPECIFIED Qualifiers: Heart failure type: unspecified Qualified Code(s): I50.9 - Heart failure, unspecified (3) Acute respiratory failure Code(s): J96.00 - ACUTE RESPIRATORY FAILURE, UNSP W HYPOXIA OR HYPERCAPNIA Qualifiers: Respiratory failure complication: hypoxia Qualified Code(s): J96.01 - Acute respiratory failure with hypoxia (4) Afib Code(s): I48.91 - UNSPECIFIED ATRIAL FIBRILLATION (5) ESRD on hemodialysis Code(s): N18.6 - END STAGE RENAL DISEASE; Z99.2 - DEPENDENCE ON RENAL DIALYSIS (6) H/O deep venous thrombosis Code(s): Z86.718 - PERSONAL HISTORY OF OTHER VENOUS THROMBOSIS AND EMBOLISM (7) Shortness of breath Code(s): R06.02 - SHORTNESS OF BREATH (8) Sleep apnea Code(s): G47.30 - SLEEP APNEA, UNSPECIFIED Assessment/Plan ASSESSMENT AND PLAN: Acute Respiratory Failure requiring NIPPV improving Volume Overload Acute on Chronic Diastolic Heart Failure Pulmonary HTN ESRD on HD Atrial Fibrillation Pleural Effusion h/o DVT Anemia - HD per renal - daily weights - BiPAP to assist in work of breathing - O2 to keep SpO2 >90% - rate control - continue anticoagulation DR SHAFFER
[2019-04-22] MEDS ORDERED: EPOETIN ALFA 10,000 UNIT/1 ML VIAL IVPUSH ONE (13:30)
[2019-04-22 13:53] LABS: EOS % 1.2 % (0-4.5); HEMATOCRIT 27.8 % (32.4-45.2); HEMOGLOBIN 8.7 GM/dL (10.7-15.3); LYMPH % 18.8 % (8-40); MCH 28.1 pg (25.7-33.7); MCHC 31.1 g/dl (32.0-36.0); MEAN CELL VOLUME 90.5 fl (80-96); MEAN PLT VOLUME 7.9 fl (7.5-11.1); MONO % 6.2 % (3.8-10.2); NEUT % 72.8 % (42.8-82.8); PLATELET COUNT 169 K/MM3 (134-434); RBC 3.08 M/mm3 (3.60-5.2); RDW 19.3 % (11.6-15.6); WHITE BLOOD COUNT 3.4 K/mm3 (4.0-10.0)
[2019-04-22] MEDS: SILVER SULFADIAZINE 1% TOP CREAM 50 GM JAR TP SCH ×2 (14:00→21:34)
[2019-04-22 14:34] LABS: ALBUMIN 3.1 g/dl (3.4-5.0); BILIRUBIN,TOTAL 0.4 mg/dL (0.2-1); BLOOD UREA NITROGEN 34.6 mg/dL (7-18); CALCIUM 8.3 mg/dL (8.5-10.1); POTASSIUM 3.7 mmol/L (3.5-5.1); TOT PROT 6.6 g/dl (6.4-8.2)
[2019-04-22] MEDS: ALBUMIN HUMAN 25% 12.5 GM/50 ML VIAL IVPB SCH ×3 (14:55→14:57)
[2019-04-22] MEDS: MELATONIN 5 MG TABLETS PO SCH (21:34)
[2019-04-22] MEDS: SENNOSIDES 8.6MG TABLET (FP) PO SCH (21:34)
[2019-04-23] MEDS: LEVOTHYROXINE NA 25 MCG TABLET (FP) PO SCH (06:39)
[2019-04-23] MEDS: INSULIN SLIDING SCALE (NOVOLOG) 1 VIAL SQ SCH ×4 (06:39→21:27)
[2019-04-23] MEDS ORDERED: PT OWN MED DRAWER 7, Y5N ONE ×2 (09:36→21:20)
[2019-04-23] MEDS: PANTOPRAZOLE 40 MG TABLET (FP) PO SCH (09:49)
[2019-04-23] MEDS: SERTRALINE HCL 50 MG TABLET (FP) PO SCH (09:49)
[2019-04-23] MEDS: MIDODRINE HCL 5 MG TABLET PO SCH ×3 (09:49→17:05)
[2019-04-23] MEDS: busPIRone HCL 5 MG TABLET PO SCH ×2 (09:49→21:27)
[2019-04-23] MEDS: VITAMIN B COMP W-C 1 EA TABLET PO SCH (09:49)
[2019-04-23] MEDS: predniSONE 5 MG TABLET (UD) PO SCH (09:49)
[2019-04-23] MEDS: NYSTATIN 100000 UNIT/GM TOPICAL OINTMENT 15 GM TUBE TP SCH ×2 (09:50→21:28)
[2019-04-23] MEDS: APIXABAN 2.5 MG TABLET PO SCH ×2 (09:50→21:27)
[2019-04-23] MEDS: SILVER SULFADIAZINE 1% TOP CREAM 50 GM JAR TP SCH ×2 (09:50→21:28)
--- NOTE | 2019-04-23 10:40 | DS ---
Physical Examination Vital Signs: Vital Signs Temperature 97.5 F L 04/23/19 09:48 Pulse Rate 75 04/23/19 09:48 Respiratory Rate 19 04/23/19 09:48 Blood Pressure 96/49 L 04/23/19 09:48 O2 Sat by Pulse Oximetry (%) 97 04/23/19 03:00 Findings/Remarks: AWAKE ALERT ON BIPAP, EATING BREAKFAST FEELS BETTER Constitutional: Yes: No Distress Cardiovascular: Yes: Regular Rate and Rhythm Respiratory: Yes: Diminished, On BiPap Musculoskeletal: Yes: Muscle Weakness Labs: CBC, BMP 04/22/19 12:51 04/22/19 12:51 Discharge Summary Problems reviewed: Yes Reason For Visit: Shortness of Breath Current Active Problems Acute exacerbation of congestive heart failure (Acute) Excoriation of buttock (Acute) Procedures: Principal: CXR/LABS Hospital Course: ADMITTED FOR RESPIRATORY SUPPORT, MEDICATIONS REVIEWED, EVENTS REVIEWED, PT HAD EPISODE OF LOW BP WHICH HAS BECOME CHRONIC FOR HER DURING HEMODIALYSIS. 02/ BIPAP SUPPORT FEELS BETTER Plan of Treatment: TRANSFER TO [facility] Goals: USE BIPAP AND 02 SAT CHECKS, MIDODRINE BEFORE HD TO ENSURE BETTER BLOODPRESSURES Condition: Stable - Instructions Diet, Activity, Other Instructions: RENAL Referrals: Johnny Houston [Primary Care Provider] - Disposition: [facility] FACILITY - Home Medications Comprehensive Discharge Medication List: Ambulatory Orders Ammonium Lactate Lotion [Lac-Hydrin 12] 1 applic TP BID 02/19/19 Bacitracin - [Bacitracin Topical Ointment -] 1 applic TP BID 02/19/19 Buspirone HCl [Buspar -] 10 mg PO BID 02/19/19 Hydrocortisone Acetate [Anusol Hc Suppository -] 1 supp RC DAILY PRN 02/19/19 Ipratropium/Albuterol Sulfate [Iprat-Albut 0.5-3(2.5) mg/3 ml] 1 neb IH Q4H 12/31 Lidocaine/Prilocaine Cream [Lidocaine-Prilocaine Cream -] 1 applic TP Q4H PRN Nystatin Ointment [Mycostatin Ointment -] 1 applic TP BID 02/19/19 Ondansetron [Zofran -] 4 mg PO Q6H PRN 02/19/19 Pantoprazole Sodium [Protonix] 40 mg PO DAILY 02/19/19 Sennosides [Senna] 2 tab PO HS 02/19/19 Silver Sulfadiazine [Silvadene] 1 applic TP DAILY 02/19/19 Vitamin B Comp W-C [Nephro-Evert -] 1 tablet PO DAILY 02/19/19 Zinc Oxide 20% Topical Oint 1 applic TP BID 02/19/19 Zinc Sulfate [Orazinc -] 220 mg PO DAILY 02/19/19 Calcitriol [Calcitriol -] 0.75 mcg PO DAILY 03/11/19 Digoxin 125 mcg PO DAILY 03/11/19 Levothyroxine [Synthroid -] 25 mcg PO DAILY@0700 tablet 03/18/19 traMADol HCL [Ultram -] 50 mg PO Q8H PRN tablet 03/18/19 Acetaminophen [Tylenol] 650 mg PO Q6H PRN 04/20/19 Alprazolam 0.25 mg PO BID 04/20/19 Clotrimazole 1 applic TP BID 04/20/19 Collagenase Clostridium Hist. [Santyl -] 1 applic TP DAILY 04/20/19 Fludrocortisone Acetate [Florinef -] 0.1 mg PO DAILY 04/20/19 Hydrocortisone 0.5% Cream [Hytone 0.5% Cream -] 1 applic TP DAILY 04/20/19 Insulin Lispro [Humalog Kwikpen U-100] 0 unit SQ BIDAC 04/20/19 Melatonin 10 mg PO HS 04/20/19 Midodrine HCl 10 mg PO TID 04/20/19 Nystatin/Triamcin [Nystatin-Triamcinolone Cream] 1 applic TP DAILY 04/20/19 Acetaminophen [Tylenol .Regular Strength -] 650 mg PO Q6H PRN tablet 04/23/19 Albumin Human [Albumin Human 25%] 12.5 gm IVPB Q30M vial 04/23/19 Apixaban [Eliquis -] 2.5 mg PO BID tablet 04/23/19 Insulin Sliding Scale [Novolog Vial Sliding Scale -] 1 vial SQ ACHS units 04/23 Melatonin 10 mg PO HS tab 04/23/19 Midodrine HCl [Proamatine -] 10 mg PO TID-MID tablet 04/23/19 Silver Sulfadiazine 1% Top Cr [Silvadene -] 1 applic TP BID jar 04/23/19 Vitamin B Comp W-C [Nephro-Evert -] 1 tablet PO DAILY tablet 04/23/19 predniSONE [Deltasone -] 5 mg PO DAILY tablet 04/23/19 traMADol HCL [Ultram -] 50 mg PO Q8H PRN tablet MDD 3 04/23/19
--- NOTE | 2019-04-23 11:36 | PN ---
Progress Note (short form) - Note Progress Note: Sleepy but arousable. Confused. Apparently was on NIPPV all night. No acute events overnight. Intake & Output 04/20/19 04/21/19 04/22/19 04/23/19 23:59 23:59 23:59 23:59 Intake Total 350 600 700 50 Output Total 2500 2400 Balance 350 -1900 -1700 50 Weight 160 lb 159 lb Last Vital Signs Temp Pulse Resp BP Pulse Ox 97.5 F L 75 19 96/49 L 97 04/23/19 09:48 04/23/19 09:48 04/23/19 09:48 04/23/19 09:48 04/23/19 03:00 Active Medications Acetaminophen (Tylenol -) 650 mg PO Q6H PRN PRN Reason: PAIN LEVEL 1-5 Last Admin: 04/22/19 10:58 Dose: 650 mg Albuterol/Ipratropium (Duoneb -) 1 amp NEB Q4H PRN PRN Reason: WHEEZING Last Admin: 04/22/19 20:34 Dose: 1 amp Apixaban (Eliquis -) 2.5 mg PO BID [facility] Last Admin: 04/23/19 09:50 Dose: 2.5 mg Buspirone HCl (Buspar -) 5 mg PO BID [facility] Last Admin: 04/23/19 09:49 Dose: 5 mg Insulin Aspart (Novolog Vial Sliding Scale -) 1 vial SQ [facility]; Protocol Last Admin: 04/23/19 06:39 Dose: Not Given Levothyroxine Sodium (Synthroid -) 25 mcg PO DAILY@0700 [facility] Last Admin: 04/23/19 06:39 Dose: 25 mcg Melatonin (Melatonin) 10 mg PO HS [facility] Last Admin: 04/22/19 21:34 Dose: 10 mg Midodrine (Proamatine -) 10 mg PO TID-MID [facility] Last Admin: 04/23/19 09:49 Dose: 10 mg Multivit/Ca Carb/B Cmplx/FA/Prenat (Nephro-Evert -) 1 tablet PO DAILY [facility] Last Admin: 04/23/19 09:49 Dose: 1 tablet Nystatin (Mycostatin Ointment -) 1 applic TP BID [facility] Last Admin: 04/23/19 09:50 Dose: 1 applic Pantoprazole Sodium (Protonix -) 40 mg PO DAILY [facility] Last Admin: 04/23/19 09:49 Dose: 40 mg Prednisone (Deltasone -) 5 mg PO DAILY [facility] Last Admin: 04/23/19 09:49 Dose: 5 mg Senna (Senna -) 2 tab PO HS [facility] Last Admin: 04/22/19 21:34 Dose: Not Given Sertraline HCl (Zoloft -) 75 mg PO DAILY [facility] Last Admin: 04/23/19 09:49 Dose: 75 mg Silver Sulfadiazine (Silvadene -) 1 applic TP BID [facility] Last Admin: 04/23/19 09:50 Dose: 1 applic Tramadol HCl (Ultram -) 50 mg PO Q8H PRN PRN Reason: PAIN LEVEL 7 - 10 Last Admin: 04/22/19 11:51 Dose: 50 mg Constitutional: Yes: Confused, NAD Eyes: Yes: WNL HENT: Yes: WNL Neck: Yes: WNL Cardiovascular: Yes: Pulse Irregular, S1, S2 Respiratory: Yes: Diminished, few scattered rhonchi Gastrointestinal: Yes: Normal Bowel Sounds, Soft Extremities: Yes: WNL Edema: Yes Edema: RUE: Trace, LLE: Trace, RLE: Trace Labs: Laboratory Results - last 24 hr 04/22/19 04/22/19 04/22/19 12:51 12:51 17:26 WBC 3.4 L RBC 3.08 L Hgb 8.7 L Hct 27.8 L MCV 90.5 MCH 28.1 MCHC 31.1 L RDW 19.3 H Plt Count 169 MPV 7.9 D Absolute Neuts (auto) 2.5 Neutrophils % 72.8 D Lymphocytes % 18.8 D Monocytes % 6.2 Eosinophils % 1.2 Basophils % 1.0 Nucleated RBC % 0 Sodium 136 Potassium 3.7 Chloride 101 Carbon Dioxide 29 Anion Gap 7 L BUN 34.6 H Creatinine 3.0 H Est GFR (CKD-EPI)AfAm 17.39 Est GFR (CKD-EPI)NonAf 15.01 POC Glucometer 167 Random Glucose 210 H Calcium 8.3 L Total Bilirubin 0.4 AST 11 L ALT 13 Alkaline Phosphatase 184 H Total Protein 6.6 Albumin 3.1 L TSH 3.67 04/22/19 04/23/19 21:32 06:37 WBC RBC Hgb Hct MCV MCH MCHC RDW Plt Count MPV Absolute Neuts (auto) Neutrophils % Lymphocytes % Monocytes % Eosinophils % Basophils % Nucleated RBC % Sodium Potassium Chloride Carbon Dioxide Anion Gap BUN Creatinine Est GFR (CKD-EPI)AfAm Est GFR (CKD-EPI)NonAf POC Glucometer 216 86 Random Glucose Calcium Total Bilirubin AST ALT Alkaline Phosphatase Total Protein Albumin TSH Problem List - Problems (1) Acute exacerbation of congestive heart failure Code(s): I50.9 - HEART FAILURE, UNSPECIFIED (2) Acute exacerbation of congestive heart failure Code(s): I50.9 - HEART FAILURE, UNSPECIFIED Qualifiers: Heart failure type: unspecified Qualified Code(s): I50.9 - Heart failure, unspecified (3) Acute respiratory failure Code(s): J96.00 - ACUTE RESPIRATORY FAILURE, UNSP W HYPOXIA OR HYPERCAPNIA Qualifiers: Respiratory failure complication: hypoxia Qualified Code(s): J96.01 - Acute respiratory failure with hypoxia (4) Afib Code(s): I48.91 - UNSPECIFIED ATRIAL FIBRILLATION (5) ESRD on hemodialysis Code(s): N18.6 - END STAGE RENAL DISEASE; Z99.2 - DEPENDENCE ON RENAL DIALYSIS (6) H/O deep venous thrombosis Code(s): Z86.718 - PERSONAL HISTORY OF OTHER VENOUS THROMBOSIS AND EMBOLISM (7) Shortness of breath Code(s): R06.02 - SHORTNESS OF BREATH (8) Sleep apnea Code(s): G47.30 - SLEEP APNEA, UNSPECIFIED Assessment/Plan Acute Respiratory Failure requiring NIPPV improving Volume Overload Acute on Chronic Diastolic Heart Failure Pulmonary HTN ESRD on HD Atrial Fibrillation Pleural Effusion h/o DVT Anemia - HD per renal - daily weights - BiPAP to assist in work of breathing - O2 to keep SpO2 >90% - rate control - continue anticoagulation Dr Wiley
[2019-04-23] MEDS ORDERED: SODIUM CHLORIDE 250 ML IV PRN ×2 (11:47→12:06)
--- NOTE | 2019-04-23 12:08 | PN ---
Progress Note (short form) - Note Progress Note: Renal follow up for ESRD Coverage for Dr. Molina Seen and examined at the bedside reports she has a hard time breathing currently using BIPAP no chest pain s/p HD yesterday Vital Signs Temperature 97.5 F L 04/23/19 09:48 Pulse Rate 78 04/23/19 10:35 Respiratory Rate 19 04/23/19 09:48 Blood Pressure 96/49 L 04/23/19 09:48 O2 Sat by Pulse Oximetry (%) 97 04/23/19 10:35 Intake & Output 04/20/19 04/21/19 04/22/19 04/23/19 23:59 23:59 23:59 23:59 Intake Total 350 600 700 50 Output Total 2500 2400 Balance 350 -1900 -1700 50 Weight 72.575 kg 72.121 kg NAD awake and alert Dec BS bilateral lung arizmendi no LE edema CBC, BMP 04/22/19 12:51 04/22/19 12:51 Current Medications Acetaminophen (Tylenol -) 650 mg PO Q6H PRN PRN Reason: PAIN LEVEL 1-5 Last Admin: 04/22/19 10:58 Dose: 650 mg Albumin Human (Albumin Human 25%) 12.5 gm IVPB Q30M [facility] Albuterol/Ipratropium (Duoneb -) 1 amp NEB Q4H PRN PRN Reason: WHEEZING Last Admin: 04/22/19 20:34 Dose: 1 amp Apixaban (Eliquis -) 2.5 mg PO BID [facility] Last Admin: 04/23/19 09:50 Dose: 2.5 mg Buspirone HCl (Buspar -) 5 mg PO BID [facility] Last Admin: 04/23/19 09:49 Dose: 5 mg Sodium Chloride (Normal Saline -) 250 mls @ 3,000 mls/hr IV PRN PRN PRN Reason: Hypotension during Dialysis Stop: 04/24/19 11:47 Sodium Chloride (Normal Saline -) 250 mls @ 3,000 mls/hr IV PRN PRN PRN Reason: Hypotension during Dialysis Stop: 04/24/19 12:06 Insulin Aspart (Novolog Vial Sliding Scale -) 1 vial SQ ACHS [facility]; Protocol Last Admin: 04/23/19 12:00 Dose: Not Given Levothyroxine Sodium (Synthroid -) 25 mcg PO DAILY@0700 [facility] Last Admin: 04/23/19 06:39 Dose: 25 mcg Melatonin (Melatonin) 10 mg PO HS [facility] Last Admin: 04/22/19 21:34 Dose: 10 mg Midodrine (Proamatine -) 10 mg PO TID-MID [facility] Last Admin: 04/23/19 09:49 Dose: 10 mg Multivit/Ca Carb/B Cmplx/FA/Prenat (Nephro-Evert -) 1 tablet PO DAILY [facility] Last Admin: 04/23/19 09:49 Dose: 1 tablet Nystatin (Mycostatin Ointment -) 1 applic TP BID [facility] Last Admin: 04/23/19 09:50 Dose: 1 applic Pantoprazole Sodium (Protonix -) 40 mg PO DAILY [facility] Last Admin: 04/23/19 09:49 Dose: 40 mg Prednisone (Deltasone -) 5 mg PO DAILY [facility] Last Admin: 04/23/19 09:49 Dose: 5 mg Senna (Senna -) 2 tab PO HS [facility] Last Admin: 04/22/19 21:34 Dose: Not Given Sertraline HCl (Zoloft -) 75 mg PO DAILY [facility] Last Admin: 04/23/19 09:49 Dose: 75 mg Silver Sulfadiazine (Silvadene -) 1 applic TP BID [facility] Last Admin: 04/23/19 09:50 Dose: 1 applic Tramadol HCl (Ultram -) 50 mg PO Q8H PRN PRN Reason: PAIN LEVEL 7 - 10 Last Admin: 04/22/19 11:51 Dose: 50 mg Impression 1. ESRD 2. shortness of breath 3. resp failure requiring bipap 4. chf 5. dvt 6. anemia 7. a-fib 8. hypothyroid 9. pleural effusion 10. hypotension Plan For isolated UF today with goal UF of 2-2.5L as tolerated discharge planning to rehab post tx as per primary next dialysis planned for Thursday Melquiades Montgomery DO
[2019-04-23] MEDS: ALBUMIN HUMAN 25% 12.5 GM/50 ML VIAL IVPB SCH ×3 (12:45→15:12)
[2019-04-23] MEDS: MELATONIN 5 MG TABLETS PO SCH (21:27)
[2019-04-23] MEDS: SENNOSIDES 8.6MG TABLET (FP) PO SCH (21:28)
[2019-04-23] MEDS: traMADol HCL 50 MG TABLET PO PRN (22:55)
[2019-04-24] MEDS: INSULIN SLIDING SCALE (NOVOLOG) 1 VIAL SQ SCH ×2 (06:51→12:27)
[2019-04-24] MEDS: LEVOTHYROXINE NA 25 MCG TABLET (FP) PO SCH (06:51)
[2019-04-24] MEDS ORDERED: PT OWN MED DRAWER 7, Y5N ONE (10:08)
[2019-04-24] MEDS: VITAMIN B COMP W-C 1 EA TABLET PO SCH (10:15)
[2019-04-24] MEDS: SERTRALINE HCL 50 MG TABLET (FP) PO SCH (10:15)
[2019-04-24] MEDS: predniSONE 5 MG TABLET (UD) PO SCH (10:15)
[2019-04-24] MEDS: APIXABAN 2.5 MG TABLET PO SCH (10:15)
[2019-04-24] MEDS: PANTOPRAZOLE 40 MG TABLET (FP) PO SCH (10:15)
[2019-04-24] MEDS: MIDODRINE HCL 5 MG TABLET PO SCH ×2 (10:15→14:03)
[2019-04-24] MEDS: busPIRone HCL 5 MG TABLET PO SCH (10:15)
[2019-04-24] MEDS: SILVER SULFADIAZINE 1% TOP CREAM 50 GM JAR TP SCH (10:16)
[2019-04-24] MEDS: NYSTATIN 100000 UNIT/GM TOPICAL OINTMENT 15 GM TUBE TP SCH (10:16)
--- NOTE | 2019-04-24 10:49 | PN ---
Progress Note (short form) - Note Progress Note: Sleepy but arousable. Confused. Tolerating NIPPV support. No acute events overnight. Intake & Output 04/21/19 04/22/19 04/23/19 04/24/19 23:59 23:59 23:59 23:59 Intake Total 205 900 1556 120 Output Total 2500 2400 Balance -1900 -1700 1080 120 Weight 159 lb Last Vital Signs Temp Pulse Resp BP Pulse Ox 98.0 F 67 20 109/56 L 98 04/23/19 22:00 04/24/19 06:00 04/24/19 06:00 04/24/19 06:00 04/23/19 21:00 Active Medications Acetaminophen (Tylenol -) 650 mg PO Q6H PRN PRN Reason: PAIN LEVEL 1-5 Last Admin: 04/22/19 10:58 Dose: 650 mg Albuterol/Ipratropium (Duoneb -) 1 amp NEB Q4H PRN PRN Reason: WHEEZING Last Admin: 04/22/19 20:34 Dose: 1 amp Apixaban (Eliquis -) 2.5 mg PO BID [facility] Last Admin: 04/24/19 10:15 Dose: 2.5 mg Buspirone HCl (Buspar -) 5 mg PO BID [facility] Last Admin: 04/24/19 10:15 Dose: 5 mg Sodium Chloride (Normal Saline -) 250 mls @ 3,000 mls/hr IV PRN PRN PRN Reason: Hypotension during Dialysis Stop: 04/24/19 11:47 Sodium Chloride (Normal Saline -) 250 mls @ 3,000 mls/hr IV PRN PRN PRN Reason: Hypotension during Dialysis Stop: 04/24/19 12:06 Insulin Aspart (Novolog Vial Sliding Scale -) 1 vial SQ ACHS [facility]; Protocol Last Admin: 04/24/19 06:51 Dose: Not Given Levothyroxine Sodium (Synthroid -) 25 mcg PO DAILY@0700 [facility] Last Admin: 04/24/19 06:51 Dose: 25 mcg Melatonin (Melatonin) 10 mg PO HS [facility] Last Admin: 04/23/19 21:27 Dose: 10 mg Midodrine (Proamatine -) 10 mg PO TID-MID [facility] Last Admin: 04/24/19 10:15 Dose: 10 mg Multivit/Ca Carb/B Cmplx/FA/Prenat (Nephro-Evert -) 1 tablet PO DAILY [facility] Last Admin: 04/24/19 10:15 Dose: 1 tablet Nystatin (Mycostatin Ointment -) 1 applic TP BID [facility] Last Admin: 04/24/19 10:16 Dose: 1 applic Pantoprazole Sodium (Protonix -) 40 mg PO DAILY [facility] Last Admin: 04/24/19 10:15 Dose: 40 mg Prednisone (Deltasone -) 5 mg PO DAILY [facility] Last Admin: 04/24/19 10:15 Dose: 5 mg Senna (Senna -) 2 tab PO HS [facility] Last Admin: 04/23/19 21:28 Dose: Not Given Sertraline HCl (Zoloft -) 75 mg PO DAILY [facility] Last Admin: 04/24/19 10:15 Dose: 75 mg Silver Sulfadiazine (Silvadene -) 1 applic TP BID [facility] Last Admin: 04/24/19 10:16 Dose: 1 applic Tramadol HCl (Ultram -) 50 mg PO Q8H PRN PRN Reason: PAIN LEVEL 7 - 10 Last Admin: 04/23/19 22:55 Dose: 50 mg Constitutional: Yes: Confused, NAD Eyes: Yes: WNL HENT: Yes: WNL Neck: Yes: WNL Cardiovascular: Yes: Pulse Irregular, S1, S2 Respiratory: Yes: Diminished, few scattered rhonchi Gastrointestinal: Yes: Normal Bowel Sounds, Soft Extremities: Yes: WNL Edema: Yes Edema: RUE: Trace, LLE: Trace, RLE: Trace Labs: Laboratory Results - last 24 hr 04/23/19 04/23/19 04/23/19 11:58 17:03 21:25 POC Glucometer 196 176 194 04/24/19 06:50 POC Glucometer 171 Problem List - Problems (1) Acute exacerbation of congestive heart failure Code(s): I50.9 - HEART FAILURE, UNSPECIFIED (2) Acute exacerbation of congestive heart failure Code(s): I50.9 - HEART FAILURE, UNSPECIFIED Qualifiers: Heart failure type: unspecified Qualified Code(s): I50.9 - Heart failure, unspecified (3) Acute respiratory failure Code(s): J96.00 - ACUTE RESPIRATORY FAILURE, UNSP W HYPOXIA OR HYPERCAPNIA Qualifiers: Respiratory failure complication: hypoxia Qualified Code(s): J96.01 - Acute respiratory failure with hypoxia (4) Afib Code(s): I48.91 - UNSPECIFIED ATRIAL FIBRILLATION (5) ESRD on hemodialysis Code(s): N18.6 - END STAGE RENAL DISEASE; Z99.2 - DEPENDENCE ON RENAL DIALYSIS (6) H/O deep venous thrombosis Code(s): Z86.718 - PERSONAL HISTORY OF OTHER VENOUS THROMBOSIS AND EMBOLISM (7) Shortness of breath Code(s): R06.02 - SHORTNESS OF BREATH (8) Sleep apnea Code(s): G47.30 - SLEEP APNEA, UNSPECIFIED Assessment/Plan Acute Respiratory Failure requiring NIPPV improving Volume Overload Acute on Chronic Diastolic Heart Failure Pulmonary HTN ESRD on HD Atrial Fibrillation Pleural Effusion h/o DVT Anemia - HD per renal - daily weights - BiPAP to assist in work of breathing - O2 to keep SpO2 >90% - rate control - continue anticoagulation Dr Wiley
[2019-04-24] MEDS ORDERED: SODIUM CHLORIDE 250 ML IV PRN ×2 (11:40→11:41)
--- NOTE | 2019-04-24 11:55 | PN ---
Progress Note, Physician Chief Complaint: Acute on Chronic CHF Exacerbation SOB ESRD Hypotension History of Present Illness: Previous notes and events reviewed awake and alert on Bipap NAD no acute events overnight denies SOB or chest pain awaiting return to [facility] - Current Medication List Current Medications: Active Medications Acetaminophen (Tylenol -) 650 mg PO Q6H PRN PRN Reason: PAIN LEVEL 1-5 Last Admin: 04/22/19 10:58 Dose: 650 mg Albuterol/Ipratropium (Duoneb -) 1 amp NEB Q4H PRN PRN Reason: WHEEZING Last Admin: 04/22/19 20:34 Dose: 1 amp Apixaban (Eliquis -) 2.5 mg PO BID [facility] Last Admin: 04/24/19 10:15 Dose: 2.5 mg Buspirone HCl (Buspar -) 5 mg PO BID [facility] Last Admin: 04/24/19 10:15 Dose: 5 mg Sodium Chloride (Normal Saline -) 250 mls @ 3,000 mls/hr IV PRN PRN PRN Reason: Hypotension during Dialysis Stop: 04/24/19 11:47 Sodium Chloride (Normal Saline -) 250 mls @ 3,000 mls/hr IV PRN PRN PRN Reason: Hypotension during Dialysis Stop: 04/24/19 12:06 Insulin Aspart (Novolog Vial Sliding Scale -) 1 vial SQ [facility]; Protocol Last Admin: 04/24/19 06:51 Dose: Not Given Levothyroxine Sodium (Synthroid -) 25 mcg PO DAILY@0700 [facility] Last Admin: 04/24/19 06:51 Dose: 25 mcg Melatonin (Melatonin) 10 mg PO HS [facility] Last Admin: 04/23/19 21:27 Dose: 10 mg Midodrine (Proamatine -) 10 mg PO TID-MID [facility] Last Admin: 04/24/19 10:15 Dose: 10 mg Multivit/Ca Carb/B Cmplx/FA/Prenat (Nephro-Evert -) 1 tablet PO DAILY [facility] Last Admin: 04/24/19 10:15 Dose: 1 tablet Nystatin (Mycostatin Ointment -) 1 applic TP BID [facility] Last Admin: 04/24/19 10:16 Dose: 1 applic Pantoprazole Sodium (Protonix -) 40 mg PO DAILY [facility] Last Admin: 04/24/19 10:15 Dose: 40 mg Prednisone (Deltasone -) 5 mg PO DAILY [facility] Last Admin: 04/24/19 10:15 Dose: 5 mg Senna (Senna -) 2 tab PO HS [facility] Last Admin: 04/23/19 21:28 Dose: Not Given Sertraline HCl (Zoloft -) 75 mg PO DAILY [facility] Last Admin: 04/24/19 10:15 Dose: 75 mg Silver Sulfadiazine (Silvadene -) 1 applic TP BID [facility] Last Admin: 04/24/19 10:16 Dose: 1 applic Tramadol HCl (Ultram -) 50 mg PO Q8H PRN PRN Reason: PAIN LEVEL 7 - 10 Last Admin: 04/23/19 22:55 Dose: 50 mg - Objective Vital Signs: Vital Signs Temperature 98.0 F 04/23/19 22:00 Pulse Rate 67 04/24/19 06:00 Respiratory Rate 20 04/24/19 06:00 Blood Pressure 109/56 L 04/24/19 06:00 O2 Sat by Pulse Oximetry (%) 98 04/23/19 21:00 Constitutional: Yes: No Distress, Anxious Eyes: Yes: Conjunctiva Clear HENT: Yes: Atraumatic Cardiovascular: Yes: Pulse Irregular Respiratory: Yes: Regular, Diminished, On BiPap Gastrointestinal: Yes: Normal Bowel Sounds, Soft, Abdomen, Obese Genitourinary: Yes: Incontinence Musculoskeletal: Yes: Muscle Weakness Extremities: Yes: WNL Edema: No Neurological: Yes: Alert, Oriented Psychiatric: Yes: Alert, Oriented Labs: CBC, BMP 04/22/19 12:51 04/22/19 12:51 Problem List - Problems (1) Acute exacerbation of congestive heart failure Assessment/Plan: -Cardiology on board -tele monitoring -daily weights -strict I&Os -fluid restriction Code(s): I50.9 - HEART FAILURE, UNSPECIFIED (2) Acute on chronic respiratory failure with hypoxia and hypercapnia Assessment/Plan: -Pulm on board -O2 via NC -Bipap HS and prn -keep SpO2 >90% -Bronchodilators Code(s): J96.21 - ACUTE AND CHRONIC RESPIRATORY FAILURE WITH HYPOXIA; J96.22 - ACUTE AND CHRONIC RESPIRATORY FAILURE WITH HYPERCAPNIA (3) Afib Assessment/Plan: -Eliquis Code(s): I48.91 - UNSPECIFIED ATRIAL FIBRILLATION (4) COPD (chronic obstructive pulmonary disease) Assessment/Plan: -Pulm on board -O2 via NC -Bipap HS and prn -keep SpO2 >90% -Bronchodilators Code(s): J44.9 - CHRONIC OBSTRUCTIVE PULMONARY DISEASE, UNSPECIFIED Qualifiers: COPD type: unspecified COPD Qualified Code(s): J44.9 - Chronic obstructive pulmonary disease, unspecified (5) ESRD on hemodialysis Assessment/Plan: -Renal on board -BUN/Cr 34.6/3.0 -continue HD on scheduled days -renal diet Code(s): N18.6 - END STAGE RENAL DISEASE; Z99.2 - DEPENDENCE ON RENAL DIALYSIS (6) Elevated troponin Assessment/Plan: -Cardiology on board -tele monitoring Code(s): R74.8 - ABNORMAL LEVELS OF OTHER SERUM ENZYMES (7) H/O deep venous thrombosis Assessment/Plan: -Eliquis Code(s): Z86.718 - PERSONAL HISTORY OF OTHER VENOUS THROMBOSIS AND EMBOLISM (8) Hypotension Assessment/Plan: -[place] Code(s): I95.9 - HYPOTENSION, UNSPECIFIED Qualifiers: Hypotension type: unspecified hypotension type Qualified Code(s): I95.9 - Hypotension, unspecified (9) Hypothyroid Assessment/Plan: -Levothyroxine Code(s): E03.9 - HYPOTHYROIDISM, UNSPECIFIED (10) Hypoxia Assessment/Plan: -Pulm on board -O2 via NC -Bipap HS and prn -keep SpO2 >90% -Bronchodilators Code(s): R09.02 - HYPOXEMIA Assessment/Plan see problem list awaiting bed assignment at [facility]
[2019-04-24 14:53] VITALS: BP 107/48; PULSE 80
[2019-04-24 15:17] VITALS: TEMP 97
[2019-04-25] MEDS ORDERED: EPOETIN ALFA 2,000 UNIT/1 ML VIAL IVPUSH ONE (06:00)
== END 2019-04-24 16:20 | DRG 291 ==
LOC: JER 13:47 → JERBED 15:38 → J4S 22:32
PROVIDERS: ADMIT Family Medicine; ATTEND Family Medicine
PROC: 5A09457 Assistance with Respiratory Ventilation, 24-96 Consecutive Hours, Continuous Positive Airway Pressure (ICD-10-PCS; principal; 2019-04-20)
PROC: 5A1D70Z Performance of Urinary Filtration, Intermittent, Less than 6 Hours Per Day (ICD-10-PCS; 2019-04-20)
DX: I13.2 Hypertensive heart and chronic kidney disease with heart failure and with stage 5 chronic kidney disease, or end stage renal disease (principal); N18.6 End stage renal disease; J96.00 Acute respiratory failure, unspecified whether with hypoxia or hypercapnia; I50.42 Chronic combined systolic (congestive) and diastolic (congestive) heart failure; I48.20 Chronic atrial fibrillation, unspecified; J44.9 Chronic obstructive pulmonary disease, unspecified; E11.22 Type 2 diabetes mellitus with diabetic chronic kidney disease; Z99.2 Dependence on renal dialysis; Z79.4 Long term (current) use of insulin; Z86.718 Personal history of other venous thrombosis and embolism; D64.9 Anemia, unspecified; E03.9 Hypothyroidism, unspecified; F32.9 Major depressive disorder, single episode, unspecified; Z99.81 Dependence on supplemental oxygen; D69.6 Thrombocytopenia, unspecified; I27.20 Pulmonary hypertension, unspecified; D63.1 Anemia in chronic kidney disease; I95.9 Hypotension, unspecified
CPT/HCPCS: 36415; 36600; 71045-TC-FY; 80053; 82375; 82803; 82962; 83050; 83735; 83880; 84443; 84484; 85025; 86803; 87340; 93005; 93010; 94640; 94660; 99284-25; J0885; P9047

== ENCOUNTER 2019-04-26 15:08 | Inpatient (IN) | payer OTHER ==
[2019-04-26 15:28] VITALS: BMI 31.8
--- NOTE | 2019-04-26 16:13 | PDOC ---
History of Present Illness - General Chief Complaint: Shortness of Breath Stated Complaint: Shortness of Breath Time Seen by Provider: 04/26/19 16:08 - History of Present Illness Initial Comments: 04/26/19 16:22 Pt is a 73 year old female with a significant past medical history of Afib ( Xarelo), congestive heart failure, ESRD (HD M/W/F), COPD (on home oxygen), anemia, diabetes mellitus, hypothyroidism, numerous admissions for acute hypoxic respiratory failure requiring intubation in the past, who presents to our emergency Department from [facility] due to shortness of breath. Pt states she suddenly became short of breath earlier today and called 911. Per phone conversation with [facility] RN, pt was not noted to desaturate. Pt currently endorses shortness of breath. SOB not exacerbated when lying supine. Denies chest pain, headache, LOC or nausea. 04/26/19 17:28 Past History - Past Medical History Allergies/Adverse Reactions: Allergies Allergy/AdvReac Type Severity Reaction Status Date / Time No Known Allergies Allergy Unverified 01/19/19 11:43 Home Medications: Ambulatory Orders Ammonium Lactate Lotion [Lac-Hydrin 12] 1 applic TP BID 02/19/19 Bacitracin - [Bacitracin Topical Ointment -] 1 applic TP BID 02/19/19 Buspirone HCl [Buspar -] 10 mg PO BID 02/19/19 Ipratropium/Albuterol Sulfate [Iprat-Albut 0.5-3(2.5) mg/3 ml] 1 neb IH Q4H 12/31 Lidocaine/Prilocaine Cream [Lidocaine-Prilocaine Cream -] 1 applic TP Q4H PRN Nystatin Ointment [Mycostatin Ointment -] 1 applic TP BID 02/19/19 Pantoprazole Sodium [Protonix] 40 mg PO DAILY 02/19/19 Sennosides [Senna] 2 tab PO HS 02/19/19 Silver Sulfadiazine [Silvadene] 1 applic TP DAILY 02/19/19 Vitamin B Comp W-C [Nephro-Evert -] 1 tablet PO DAILY 02/19/19 Zinc Oxide 20% Topical Oint 1 applic TP BID 02/19/19 Zinc Sulfate [Orazinc -] 220 mg PO DAILY 02/19/19 Calcitriol [Calcitriol -] 0.75 mcg PO DAILY 03/11/19 Digoxin 125 mcg PO DAILY 03/11/19 Alprazolam 0.25 mg PO BID 04/20/19 Clotrimazole 1 applic TP BID 04/20/19 Collagenase Clostridium Hist. [Santyl -] 1 applic TP DAILY 04/20/19 Fludrocortisone Acetate [Florinef -] 0.1 mg PO DAILY 04/20/19 Hydrocortisone 0.5% Cream [Hytone 0.5% Cream -] 1 applic TP DAILY 04/20/19 Midodrine HCl 10 mg PO TID 04/20/19 Nystatin/Triamcin [Nystatin-Triamcinolone Cream] 1 applic TP DAILY 04/20/19 Acetaminophen [Tylenol .Regular Strength -] 650 mg PO Q6H PRN tablet 04/23/19 Apixaban [Eliquis -] 2.5 mg PO BID tablet 04/23/19 Insulin Sliding Scale [Novolog Vial Sliding Scale -] 1 vial SQ ACHS units 04/23 Melatonin 10 mg PO HS tab 04/23/19 predniSONE [Deltasone -] 5 mg PO DAILY tablet 04/23/19 traMADol HCL [Ultram -] 50 mg PO Q8H PRN tablet MDD 3 04/23/19 Levothyroxine [Synthroid -] 50 mcg PO DAILY@0700 #30 tablet 04/29/19 Anemia: Yes Asthma: No Cancer: Yes (endometrial ca, s/p hysterectomy) Cardiac Disorders: Yes (A-fib) CVA: No COPD: Yes (Oxygen 2l n/c) CHF: Yes DVT: Yes Dementia: No Diabetes: Yes GI Disorders: Yes (cdiff) Disorders: Yes (ESRD, HD, Rfemoral tessio - M--Thu) HTN: No Hypercholesterolemia: No Liver Disease: No Seizures: No Thyroid Disease: Yes (hypothyroidism) - Surgical History Abdominal Surgery: No Appendectomy: No Cardiac Surgery: No Cholecystectomy: No Lung Surgery: No Neurologic Surgery: No Orthopedic Surgery: Yes (spinal surgery december 2017,feb 2017 Lt arm fracture with tendon transfer) - Psycho Social/Smoking Cessation Hx Smoking History: Unknown if ever smoked Have you smoked in the past 12 months: No Information on smoking cessation initiated: No Hx Alcohol Use: No Drug/Substance Use Hx: No Substance Use Type: None Hx Substance Use Treatment: No Review of Systems - Review of Systems Able to Perform ROS?: Yes Is the patient limited Trinidadian proficient: No Constitutional: No: Chills, Diaphoresis, Fever HEENTM: No: Blurred Vision Cardiac (ROS): No: Chest Pain, Palpitations ABD/GI: No: Constipated, Diarrhea, Nausea : No: Burning, Dysuria, Hematuria Musculoskeletal: No: Back Pain Integumentary: Yes: Rash Neurological: No: Headache, Numbness, Paresthesia, Tingling, Weakness, Dizziness *Physical Exam - Vital Signs Last Vital Signs Temp Pulse Resp BP Pulse Ox 75 26 H 113/70 100 04/26/19 15:18 04/26/19 15:18 04/26/19 15:18 04/26/19 15:18 - Physical Exam General Appearance: Yes: Mild Distress HEENT: positive: EOMI. negative: Scleral Icterus (R), Scleral Icterus (L) Neck: positive: Supple Respiratory/Chest: positive: Other (Coarse Breath sounds bilaterally ) Cardiovascular: positive: S1, S2, Irregularly Irregular Gastrointestinal/Abdominal: positive: Flat, Protuberent. negative: Distended, Guarding, Rebound, Tenderness Extremity: positive: Erythema (Right arm diffuse erythema ) Neurologic: positive: Respond to painful stimul. negative: Facial Droop, Disoriented Heart Score/ECG Review - ECG Impressions Comment:: 04/26/19 19:06 A fib rate 73, low voltage qrs, no ST elevation. Poor data quality. ED Treatment Course - LABORATORY CBC & Chemistry Diagram: 04/29/19 10:10 04/29/19 10:10 Medical Decision Making - Medical Decision Making CBC w/ diff, cardiac profile CXR, BNP, Lactic ordered CXR--> unofficial read--opacification left hemithorax--. ?pleural effusion. Pt due for HD tomorrow. Anticipate admission. Signed out to night team. Discharge - Discharge Information Problems reviewed: Yes Clinical Impression/Diagnosis: Shortness of breath Condition: Disposition: - Follow up/Referral - Patient Discharge Instructions - Post Discharge Activity
--- NOTE | 2019-04-26 16:57 | PDOC ---
Attending Attestation - Resident Resident Name: Darrion Liz - ED Attending Attestation I have performed the following: I have examined & evaluated the patient, The case was reviewed & discussed with the resident, I agree w/resident's findings & plan, Exceptions are as noted - HPI HPI: 04/26/19 18:21 Ms. Patel is a 73 year old female with a significant past medical history of Afib (Xeralto), congestive heart failure, ESRD (HD M/W/F), COPD (on home oxygen) , anemia, diabetes mellitus, hypothyroidism, numerous admissions for acute hypoxic respiratory failure requiring intubation in the past, who presents to our emergency Department from [facility] due to shortness of breath. Patient shortness of breath began today. Patient has not missed her dialysis. Patient denies chest pain. Patient denies diaphoresis Pt currently endorses shortness of breath. 04/26/19 17:28 - Physicial Exam PE: 04/26/19 18:23 GENERAL: The patient is in no acute distress, currently on BiPAP. ENT: Ears normal, nares patent, oropharynx clear without exudates. Dry mucous membranes. NECK: Normal range of motion, supple LUNGS: Coarse breath sounds, no crackles, no expiratory wheezing HEART: Irregularly irregular, harsh systolic murmur along the left sternal border (3/6) ABDOMEN: Soft, nontender, normoactive bowel sounds. EXTREMITIES: Normal range of motion, no edema. NEUROLOGICAL: Cranial nerves II through XII grossly intact. Normal speech. No focal neurological deficits. SKIN: Warm, Dry, normal turgor, no rashes or lesions noted. - Medical Decision Making 04/26/19 18:24 EKG: Atrial fibrillation, rate of 73 bpm, no ST elevation artifact at baseline, very difficult to interpret 04/26/19 18:29 Laboratory Tests 04/22/19 04/26/19 12:51 16:30 WBC 3.4 L 5.2 Hgb 8.7 L 9.9 L Hct 27.8 L 32.5 D Plt Count 169 168 04/26/19 18:29 Laboratory Tests 04/26/19 04/26/19 16:20 16:20 Sodium 135 L Potassium 5.3 H Chloride 98 BUN 35.6 H Creatinine 3.1 H Lactic Acid 1.8 Creatine Kinase 34 Troponin I 0.06 H 04/26/19 18:31 Chest x-ray: Severely rotated, limiting interpretation Left hemithorax is almost completely opacified, ? Fluid in the right fissure Orthopedic hardware seen 04/26/19 18:32 We will call renal We will plan to admit
[2019-04-26 17:10] LABS: BASO % 1.4 % (0-2.0); HEMATOCRIT 32.5 % (32.4-45.2); HEMOGLOBIN 9.9 GM/dL (10.7-15.3); LYMPH % 19.8 % (8-40); MCH 28.3 pg (25.7-33.7); MCHC 30.4 g/dl (32.0-36.0); MEAN CELL VOLUME 92.9 fl (80-96); MEAN PLT VOLUME 8.7 fl (7.5-11.1); MONO % 7.1 % (3.8-10.2); NEUT % 71.7 % (42.8-82.8); PLATELET COUNT 168 K/MM3 (134-434); RDW 20.6 % (11.6-15.6); WHITE BLOOD COUNT 5.2 K/mm3 (4.0-10.0)
[2019-04-26 17:16] LABS: ALBUMIN 3.7 g/dl (3.4-5.0); ALK PHOS 203 U/L (45-117); ANION GAP 5 MMOL/L (8-16); BILIRUBIN,TOTAL 0.4 mg/dL (0.2-1); BLOOD UREA NITROGEN 35.6 mg/dL (7-18); CALCIUM 9.5 mg/dL (8.5-10.1); CHLORIDE 98 mmol/L (98-107); CO2 31 mmol/L (21-32); CREATININE 3.1 mg/dL (0.55-1.3); GLUCOSE,RANDOM 192 mg/dL (74-106); POTASSIUM 5.3 mmol/L (3.5-5.1); SGOT/AST 21 U/L (15-37); SGPT/ALT 20 U/L (13-61); SODIUM 135 mmol/L (136-145); TOT PROT 7.7 g/dl (6.4-8.2)
[2019-04-26 18:12] LABS: ANISOCYTOSIS 2+; MACROCYTOSIS 2+
[2019-04-26 18:13] LABS: PLATELET ESTIMATE NORMAL
[2019-04-26 19:25] LABS: N-TERMINAL BNP > 35000.0 pg/ml (5-125)
--- NOTE | 2019-04-26 20:05 | PDOC ---
*Physical Exam - Vital Signs Last Vital Signs Temp Pulse Resp BP Pulse Ox 73 24 H 102/69 100 04/26/19 19:32 04/26/19 19:32 04/26/19 19:32 04/26/19 19:32 ED Treatment Course - LABORATORY CBC & Chemistry Diagram: 04/26/19 16:30 04/26/19 16:20 - ADDITIONAL ORDERS Additional order review: Laboratory Results 04/26/19 04/26/19 16:20 16:20 Sodium 135 L Potassium 5.3 H Chloride 98 Carbon Dioxide 31 Anion Gap 5 L BUN 35.6 H Creatinine 3.1 H Est GFR (CKD-EPI)AfAm 16.72 Est GFR (CKD-EPI)NonAf 14.42 Random Glucose 192 H Lactic Acid 1.8 Calcium 9.5 Total Bilirubin 0.4 AST 21 ALT 20 Alkaline Phosphatase 203 H Creatine Kinase 34 Troponin I 0.06 H B-Natriuretic Peptide > 49096.0 H Total Protein 7.7 Albumin 3.7 04/26/19 16:30 RBC 3.50 L MCV 92.9 MCHC 30.4 L RDW 20.6 H MPV 8.7 D Neutrophils % 71.7 Lymphocytes % 19.8 Monocytes % 7.1 Eosinophils % 0.0 D Basophils % 1.4 Medical Decision Making - Medical Decision Making 04/26/19 20:01 73 y/o F with a hx of Afib (apixaban), congestive heart failure, ESRD (HD M/W/F) , COPD (on home oxygen), anemia, diabetes mellitus, hypothyroidism, numerous admissions for acute hypoxic respiratory failure requiring intubation in the past, who presents to the ED for SOB. Patient was on bipap and sats remained 100 % since arrival. Workup has yielded elevated bnp and trop, however, they are uynchanged from her baseline. ekg shows afib rate controlled. Last HD yesterday, current K 5.3; renal consulted with no response; order placed will admit for SOB to med/surg under Dr Miranda Discharge - Discharge Information Problems reviewed: Yes Clinical Impression/Diagnosis: Shortness of breath Condition: Stable - Admission Yes - Follow up/Referral Referrals: Johnny Houston [Primary Care Provider] - - Patient Discharge Instructions - Post Discharge Activity
--- NOTE | 2019-04-26 20:29 | HP ---
Admitting History and Physical - Primary Care Physician PCP: Johnny Houston - Admission Chief Complaint: SOB History of Present Illness: This is a 73 y/o woman with significant medical history of Afib (on Eliquis), CHF, ESRD (M,W,F), COPD (O2, dep), Acute on Chronic Respiratory Failure with Hypoxia (requiring intubation), Sleep Apnea, DM, Anemia, Hypothyroid, Endometerial Ca (Hysterectomy), Depression. Who presents to the ED with SOB. Patient reports feeling SOB and call EMS. History Source: Patient, Transfer Record Limitations to Obtaining History: No Limitations - Past Medical History Cardiovascular: Yes: AFIB, CHF, Deep Vein Thrombosis Pulmonary: Yes: Bronchitis, Pneumonia, Previously Intubated, Pulmonary Embolus, Sleep Apnea Gastrointestinal: Yes: GERD Renal/: Yes: Renal Failure, Hemodialysis Heme/Onc: Yes: Anemia Psych: Yes: Depression Endocrine: Yes: Diabetes Mellitus, Hypothyroidism - Smoking History Smoking history: Unknown if ever smoked Have you smoked in the past 12 months: No - Alcohol/Substance Use Hx Alcohol Use: No History of Substance Use: reports: None - Social History ADL: Support Services History of Recent Travel: No Home Medications - Allergies Allergies/Adverse Reactions: Allergies Allergy/AdvReac Type Severity Reaction Status Date / Time No Known Allergies Allergy Unverified 01/19/19 11:43 - Home Medications Home Medications: Ambulatory Orders Ammonium Lactate Lotion [Lac-Hydrin 12] 1 applic TP BID 02/19/19 Bacitracin - [Bacitracin Topical Ointment -] 1 applic TP BID 02/19/19 Buspirone HCl [Buspar -] 10 mg PO BID 02/19/19 Ipratropium/Albuterol Sulfate [Iprat-Albut 0.5-3(2.5) mg/3 ml] 1 neb IH Q4H 12/31 Lidocaine/Prilocaine Cream [Lidocaine-Prilocaine Cream -] 1 applic TP Q4H PRN Nystatin Ointment [Mycostatin Ointment -] 1 applic TP BID 02/19/19 Pantoprazole Sodium [Protonix] 40 mg PO DAILY 02/19/19 Sennosides [Senna] 2 tab PO HS 02/19/19 Silver Sulfadiazine [Silvadene] 1 applic TP DAILY 02/19/19 Vitamin B Comp W-C [Nephro-Evert -] 1 tablet PO DAILY 02/19/19 Zinc Oxide 20% Topical Oint 1 applic TP BID 02/19/19 Zinc Sulfate [Orazinc -] 220 mg PO DAILY 02/19/19 Calcitriol [Calcitriol -] 0.75 mcg PO DAILY 03/11/19 Digoxin 125 mcg PO DAILY 03/11/19 Levothyroxine [Synthroid -] 25 mcg PO DAILY@0700 tablet 03/18/19 Alprazolam 0.25 mg PO BID 04/20/19 Clotrimazole 1 applic TP BID 04/20/19 Collagenase Clostridium Hist. [Santyl -] 1 applic TP DAILY 04/20/19 Fludrocortisone Acetate [Florinef -] 0.1 mg PO DAILY 04/20/19 Hydrocortisone 0.5% Cream [Hytone 0.5% Cream -] 1 applic TP DAILY 04/20/19 Midodrine HCl 10 mg PO TID 04/20/19 Nystatin/Triamcin [Nystatin-Triamcinolone Cream] 1 applic TP DAILY 04/20/19 Acetaminophen [Tylenol .Regular Strength -] 650 mg PO Q6H PRN tablet 04/23/19 Apixaban [Eliquis -] 2.5 mg PO BID tablet 04/23/19 Insulin Sliding Scale [Novolog Vial Sliding Scale -] 1 vial SQ ACHS units 04/23 Melatonin 10 mg PO HS tab 04/23/19 predniSONE [Deltasone -] 5 mg PO DAILY tablet 04/23/19 traMADol HCL [Ultram -] 50 mg PO Q8H PRN tablet MDD 3 04/23/19 Physical Examination Vital Signs: Vital Signs Temperature Pulse Rate 73 04/26/19 19:32 Respiratory Rate 24 H 04/26/19 19:32 Blood Pressure 102/69 04/26/19 19:32 O2 Sat by Pulse Oximetry (%) 100 04/26/19 19:32 Constitutional: Yes: Anxious, Mild Distress, Obese Eyes: Yes: WNL, Conjunctiva Clear, EOM Intact, PERRL HENT: Yes: WNL, Atraumatic, Normocephalic Neck: Yes: WNL, Supple, Trachea Midline Cardiovascular: Yes: Regular Rate and Rhythm, S1, S2 Respiratory: Yes: Diminished, On BiPap, Rhonchi, Wheezes Gastrointestinal: Yes: Palpable Mass (mid abdomen- nontender) ...Rectal Exam: Yes: Deferred Renal/: Yes: WNL Breast(s): Yes: WNL Extremities: Yes: WNL Edema: No Peripheral Pulses WNL: Yes Labs: CBC, BMP 04/26/19 16:30 04/26/19 16:20 Imaging - Results Chest X-ray: Image Reviewed EKG: Image Reviewed Problem List - Problems (1) Acute on chronic respiratory failure with hypoxia and hypercapnia Code(s): J96.21 - ACUTE AND CHRONIC RESPIRATORY FAILURE WITH HYPOXIA; J96.22 - ACUTE AND CHRONIC RESPIRATORY FAILURE WITH HYPERCAPNIA (2) Acute exacerbation of congestive heart failure Code(s): I50.9 - HEART FAILURE, UNSPECIFIED (3) Afib Code(s): I48.91 - UNSPECIFIED ATRIAL FIBRILLATION (4) COPD (chronic obstructive pulmonary disease) Code(s): J44.9 - CHRONIC OBSTRUCTIVE PULMONARY DISEASE, UNSPECIFIED Qualifiers: COPD type: unspecified COPD Qualified Code(s): J44.9 - Chronic obstructive pulmonary disease, unspecified (5) Elevated troponin Code(s): R74.8 - ABNORMAL LEVELS OF OTHER SERUM ENZYMES (6) ESRD on hemodialysis Code(s): N18.6 - END STAGE RENAL DISEASE; Z99.2 - DEPENDENCE ON RENAL DIALYSIS (7) Hypothyroid Code(s): E03.9 - HYPOTHYROIDISM, UNSPECIFIED (8) Sleep apnea Code(s): G47.30 - SLEEP APNEA, UNSPECIFIED (9) Functional quadriplegia Code(s): R53.2 - FUNCTIONAL QUADRIPLEGIA Assessment/Plan This is a 73 y/o woman admitted to M/S for Acute on Chronic Respiratory Failure , Acute on Chronic CHF for further evaluation of their emergent condition. Plan: Admit M/S Continue BIPAP Adjust settings per ABG Appreciate Pulmonology consult Appreciate Renal consult for HD Management Monitor CBC, BMP Check Dig level Daily weights Strict INOs Fluid Restriction Continue home meds Elevated troponin- likely due to demand ischemia, continue to trend Functional Quadriplegia- likely secondary to HF, requires total care, turn Q2h, [place]yanne Lift prn, Heel Protectors, fall precautions Continue home meds Aspiration Precautions FEN- Replete lytes, Puree Renal, Low Na, Diabetic Diet, with Honey Thickened Liquids DVT ppx- OOB, SCDs, Continue Eliquis Code Status: DNR, Molst, HCP Dispo: Requires Inpatient Care Visit type - Emergency Visit Emergency Visit: Yes ED Registration Date: 04/26/19 Care time: The patient presented to the Emergency Department on the above date and was hospitalized for further evaluation of their emergent condition. - New Patient This patient is new to me today: Yes Date on this admission: 04/26/19 - Critical Care Critical Care patient: No
[2019-04-27] MEDS ORDERED: ACETAMINOPHEN 325 MG TABLET (FP) PO PRN (00:08)
[2019-04-27] MEDS ORDERED: LIDOCAINE 2.5%/PRILOCAINE 2.5% (5 Gram/TUBE) TP PRN (00:15)
[2019-04-27] MEDS: APIXABAN 2.5 MG TABLET PO SCH ×3 (00:38→22:19)
[2019-04-27 01:08] LABS: ARTERIAL BLD GAS O2 SATURATION 99.2 % (95-98); ARTERIAL BLOOD GAS BASE EXCESS 0.1 meq/l (-2-2); ARTERIAL BLOOD GAS PCO2 49.6 mmHg (35-45); ARTERIAL BLOOD GAS PO2 162 mmHg (80-100); ARTERIAL BLOOD GAS pH 7.33 (7.35-7.45)
[2019-04-27 01:09] LABS: ALLENS TEST POSITIVE
[2019-04-27] MEDS: ALBUTEROL SO4 2.5/IPRATROPIUM 0.5 INH SOL 3 ML VIAL.NEB. NEB SCH ×5 (03:45→22:30)
[2019-04-27] MEDS: INSULIN SLIDING SCALE (NOVOLOG) 1 VIAL SQ SCH ×4 (06:32→22:25)
[2019-04-27] MEDS: LEVOTHYROXINE NA 25 MCG TABLET (FP) PO SCH (06:33)
[2019-04-27] MEDS ORDERED: INSULIN SLIDING SCALE (NOVOLOG) 1 VIAL SQ ONE (06:40)
--- NOTE | 2019-04-27 08:56 | PN ---
Progress Note, Physician - Current Medication List Current Medications: Active Medications Acetaminophen (Tylenol -) 650 mg PO Q6H PRN PRN Reason: PAIN LEVEL 1-5 Albuterol/Ipratropium (Duoneb -) 1 amp NEB RQ4H [facility] Last Admin: 04/27/19 08:20 Dose: 1 amp Alprazolam (Xanax -) 0.25 mg PO BID [facility] Apixaban (Eliquis -) 2.5 mg PO BID [facility] Last Admin: 04/27/19 00:38 Dose: 2.5 mg Buspirone HCl (Buspar -) 10 mg PO BID [facility] Calcitriol (Rocaltrol -) 0.75 mcg PO DAILY [facility] Collagenase (Santyl -) 1 applic TP DAILY [facility]; Protocol Digoxin (Lanoxin -) 0.125 mg PO DAILY [facility] Fludrocortisone Acetate (Florinef -) 0.1 mg PO DAILY [facility] Hydrocortisone (Hytone 0.5% Cream -) 1 applic TP DAILY [facility] Insulin Aspart (Novolog Vial Sliding Scale -) 1 vial SQ ACHS [facility]; Protocol Last Admin: 04/27/19 06:32 Dose: Not Given Levothyroxine Sodium (Synthroid -) 25 mcg PO DAILY@0700 [facility] Last Admin: 04/27/19 06:33 Dose: 25 mcg Lidocaine/Prilocaine (Emla -) 1 applic TP Q4H PRN PRN Reason: PAIN Melatonin (Melatonin) 10 mg PO HS [facility] Midodrine (Proamatine -) 10 mg PO TID-MID [facility] Multi-Ingredient Ointment (Zinc Oxide) 1 applic TP BID [facility] Multivit/Ca Carb/B Cmplx/FA/Prenat (Nephro-Evert -) 1 tablet PO DAILY [facility] Nystatin (Mycostatin Ointment -) 1 applic TP BID [facility] Nystatin/Triamcinolone Acetonide (Mycolog Ii Cream -) 1 applic TP DAILY [facility] Pantoprazole Sodium (Protonix -) 40 mg PO DAILY [facility] Prednisone (Deltasone -) 5 mg PO DAILY [facility] Senna (Senna -) 2 tab PO HS [facility] Tramadol HCl (Ultram -) 50 mg PO Q8H PRN PRN Reason: PAIN LEVEL 7 - 10 Zinc Sulfate (Orazinc -) 220 mg PO DAILY [facility] - Objective Vital Signs: Vital Signs Temperature 98.8 F 04/27/19 06:00 Pulse Rate 78 04/27/19 06:00 Respiratory Rate 18 04/27/19 06:00 Blood Pressure 108/55 L 04/27/19 06:00 O2 Sat by Pulse Oximetry (%) 100 04/26/19 19:32 Cardiovascular: Yes: S1, S2 Respiratory: Yes: On BiPap, Rhonchi Gastrointestinal: Yes: Normal Bowel Sounds, Soft Labs: CBC, BMP 04/26/19 16:30 04/26/19 16:20 Problem List - Problems (1) Acute on chronic respiratory failure with hypercapnia Assessment/Plan: Continue BIPAP Adjust settings per ABG Appreciate Pulmonology consult Aspiration Precautions Code(s): J96.22 - ACUTE AND CHRONIC RESPIRATORY FAILURE WITH HYPERCAPNIA (2) Acute exacerbation of congestive heart failure Assessment/Plan: Check Dig level Daily weights Strict INOs Fluid Restriction Continue home meds Elevated troponin- likely due to demand ischemia, continue to trend Code(s): I50.9 - HEART FAILURE, UNSPECIFIED (3) COPD (chronic obstructive pulmonary disease) Code(s): J44.9 - CHRONIC OBSTRUCTIVE PULMONARY DISEASE, UNSPECIFIED Qualifiers: COPD type: unspecified COPD Qualified Code(s): J44.9 - Chronic obstructive pulmonary disease, unspecified (4) ESRD on hemodialysis Assessment/Plan: Appreciate Renal consult for HD Management Monitor CBC, BMP Code(s): N18.6 - END STAGE RENAL DISEASE; Z99.2 - DEPENDENCE ON RENAL DIALYSIS (5) Functional quadriplegia Assessment/Plan: requires total care, turn Q2h, [place]yanne Lift prn, Heel Protectors, fall precautions Code(s): R53.2 - FUNCTIONAL QUADRIPLEGIA
[2019-04-27] MEDS ORDERED: PT OWN MED DRAWER 7, Y5N ONE ×2 (09:05→11:42)
[2019-04-27] MEDS ORDERED: busPIRone HCL 5 MG TABLET PO SCH (10:00)
[2019-04-27] MEDS: FLUDROCORTISONE ACETATE 0.1 MG TABLET (FP) PO SCH (10:06)
[2019-04-27] MEDS: MIDODRINE HCL 5 MG TABLET PO SCH ×3 (10:06→17:48)
[2019-04-27] MEDS: CALCITRIOL 0.25 MCG CAPSULE (FP) PO SCH (10:06)
[2019-04-27] MEDS: PANTOPRAZOLE 40 MG TABLET (FP) PO SCH (10:06)
[2019-04-27] MEDS: busPIRone HCL 10 MG TABLET (FP) PO SCH ×2 (10:07→22:19)
[2019-04-27] MEDS: DIGOXIN 0.125 MG TABLET (FP) PO SCH (10:07)
[2019-04-27] MEDS: VITAMIN B COMP W-C 1 EA TABLET PO SCH (10:07)
[2019-04-27] MEDS: predniSONE 5 MG TABLET (UD) PO SCH (10:07)
[2019-04-27] MEDS: ALPRAZolam 0.25 MG TABLET PO SCH ×2 (10:07→22:19)
[2019-04-27] MEDS: HYDROCORTISONE 0.5% TOPICAL CREAM 30 GM TUBE TP SCH (10:08)
[2019-04-27] MEDS: NYSTATIN/TRIAMCINOLONE TOPICAL CREAM 15 GM TUBE TP SCH (10:09)
[2019-04-27] MEDS: COLLAGENASE CLOSTRIDIUM HIST. 30 GRAMS TUBE TP SCH (10:09)
[2019-04-27] MEDS: NYSTATIN 100000 UNIT/GM TOPICAL OINTMENT 15 GM TUBE TP SCH ×2 (10:09→22:19)
[2019-04-27] MEDS: ZINC OXIDE 20% TOPICAL OINTMENT 30 GM TUBE TP SCH ×2 (10:09→22:19)
[2019-04-27] MEDS: ZINC SULFATE 220 MG CAPSULE (FP) PO SCH (10:10)
[2019-04-27 11:10] LABS: ALBUMIN 3.6 g/dl (3.4-5.0); BILIRUBIN,TOTAL 0.4 mg/dL (0.2-1); BLOOD UREA NITROGEN 49.1 mg/dL (7-18); CALCIUM 9.3 mg/dL (8.5-10.1); CREATININE 3.4 mg/dL (0.55-1.3); POTASSIUM 5.1 mmol/L (3.5-5.1)
--- NOTE | 2019-04-27 11:33 | CONSULT ---
Consult Consult Specialty:: Nephrology Reason for Consultation:: ESRD - History of Present Illness Chief Complaint: shortness of breath History of Present Illness: Pt is a 73 year old female with pmhx of esrd, afib, chf, chronic resp failure, dm and anemia who presents with shortness of breath. Her last hd was on Thursday. she is due for HD today. She denies fevers or chills. She called ems herself for SOB. - History Source History Provided By: Patient - Past Medical History Cardio/Vascular: Yes: AFIB, CHF, Deep Vein Thrombosis Pulmonary: Yes: Bronchitis, Pneumonia, Previously Intubated, Pulmonary Embolus, Sleep Apnea Gastrointestinal: Yes: GERD Renal/: Yes: Renal Failure, Hemodialysis Psych: Yes: Depression Endocrine: Yes: Diabetes Mellitus, Hypothyroidism - Alcohol/Substance Use Hx Alcohol Use: No History of Substance Use: reports: None - Smoking History Smoking history: Unknown if ever smoked Have you smoked in the past 12 months: No - Social History ADL: Support Services History of Recent Travel: No Home Medications - Allergies Allergies/Adverse Reactions: Allergies Allergy/AdvReac Type Severity Reaction Status Date / Time No Known Allergies Allergy Unverified 01/19/19 11:43 - Home Medications Home Medications: Ambulatory Orders Ammonium Lactate Lotion [Lac-Hydrin 12] 1 applic TP BID 02/19/19 Bacitracin - [Bacitracin Topical Ointment -] 1 applic TP BID 02/19/19 Buspirone HCl [Buspar -] 10 mg PO BID 02/19/19 Ipratropium/Albuterol Sulfate [Iprat-Albut 0.5-3(2.5) mg/3 ml] 1 neb IH Q4H 12/31 Lidocaine/Prilocaine Cream [Lidocaine-Prilocaine Cream -] 1 applic TP Q4H PRN Nystatin Ointment [Mycostatin Ointment -] 1 applic TP BID 02/19/19 Pantoprazole Sodium [Protonix] 40 mg PO DAILY 02/19/19 Sennosides [Senna] 2 tab PO HS 02/19/19 Silver Sulfadiazine [Silvadene] 1 applic TP DAILY 02/19/19 Vitamin B Comp W-C [Nephro-Evert -] 1 tablet PO DAILY 02/19/19 Zinc Oxide 20% Topical Oint 1 applic TP BID 02/19/19 Zinc Sulfate [Orazinc -] 220 mg PO DAILY 02/19/19 Calcitriol [Calcitriol -] 0.75 mcg PO DAILY 03/11/19 Digoxin 125 mcg PO DAILY 03/11/19 Levothyroxine [Synthroid -] 25 mcg PO DAILY@0700 tablet 03/18/19 Alprazolam 0.25 mg PO BID 04/20/19 Clotrimazole 1 applic TP BID 04/20/19 Collagenase Clostridium Hist. [Santyl -] 1 applic TP DAILY 04/20/19 Fludrocortisone Acetate [Florinef -] 0.1 mg PO DAILY 04/20/19 Hydrocortisone 0.5% Cream [Hytone 0.5% Cream -] 1 applic TP DAILY 04/20/19 Midodrine HCl 10 mg PO TID 04/20/19 Nystatin/Triamcin [Nystatin-Triamcinolone Cream] 1 applic TP DAILY 04/20/19 Acetaminophen [Tylenol .Regular Strength -] 650 mg PO Q6H PRN tablet 04/23/19 Apixaban [Eliquis -] 2.5 mg PO BID tablet 04/23/19 Insulin Sliding Scale [Novolog Vial Sliding Scale -] 1 vial SQ ACHS units 04/23 Melatonin 10 mg PO HS tab 04/23/19 predniSONE [Deltasone -] 5 mg PO DAILY tablet 04/23/19 traMADol HCL [Ultram -] 50 mg PO Q8H PRN tablet MDD 3 04/23/19 Family Medical History Family History: Denies Review of Systems - Review of Systems Constitutional: reports: Malaise Eyes: reports: No Symptoms HENT: reports: No Symptoms Neck: reports: No Symptoms Cardiovascular: reports: Edema, Shortness of Breath Respiratory: reports: SOB on Exertion Genitourinary: reports: Incontinence Musculoskeletal: reports: Muscle Weakness Neurological: reports: No Symptoms Endocrine: reports: No Symptoms Hematology/Lymphatic: reports: No Symptoms Physical Exam Vital Signs: Vital Signs Temperature 97.7 F 04/27/19 10:00 Pulse Rate 73 04/27/19 10:07 Respiratory Rate 18 04/27/19 10:00 Blood Pressure 115/51 L 04/27/19 10:00 O2 Sat by Pulse Oximetry (%) 100 04/26/19 19:32 Constitutional: Yes: Calm Eyes: Yes: Conjunctiva Clear HENT: Yes: Atraumatic Neck: Yes: Supple Cardiovascular: Yes: S1, S2 Respiratory: Yes: On BiPap Gastrointestinal: Yes: Soft Renal/: Yes: Incontinence Musculoskeletal: Yes: Muscle Weakness Edema: Yes Edema: LUE: 1+, RUE: 1+, LLE: Trace, RLE: Trace Neurological: Yes: Oriented Psychiatric: Yes: Oriented Labs: CBC, BMP 04/26/19 16:30 04/27/19 10:21 Imaging - Results Chest X-ray: Report Reviewed Problem List - Problems (1) ESRD on hemodialysis Code(s): N18.6 - END STAGE RENAL DISEASE; Z99.2 - DEPENDENCE ON RENAL DIALYSIS Assessment/Plan Current Medications Generic Name Dose Route Start Last Admin Trade Name Freq PRN Reason Stop Dose Admin Acetaminophen 650 mg 04/27/19 00:08 Tylenol - PO Q6H PRN PAIN LEVEL 1-5 Albumin Human 12.5 gm 04/27/19 11:30 Albumin Human 25% IVPB Q30M [facility] Albuterol/Ipratropium 1 amp 04/27/19 04:00 04/27/19 08:20 Duoneb - NEB 1 amp RQ4H [facility] Administration Alprazolam 0.25 mg 04/27/19 10:00 04/27/19 10:07 Xanax - PO 0.25 mg BID [facility] Administration Apixaban 2.5 mg 04/27/19 00:15 04/27/19 10:08 Eliquis - PO 2.5 mg BID [facility] Administration Buspirone HCl 10 mg 04/27/19 10:00 04/27/19 10:07 Buspar - PO 10 mg BID [facility] Administration Calcitriol 0.75 mcg 04/27/19 10:00 04/27/19 10:06 Rocaltrol - PO 0.75 mcg DAILY [facility] Administration Collagenase 1 applic 04/27/19 10:00 04/27/19 10:09 Santyl - TP 1 applic DAILY [facility] Administration Protocol Digoxin 0.125 mg 04/27/19 10:00 04/27/19 10:07 Lanoxin - PO 0.125 mg DAILY [facility] Administration Epoetin Memo 10,000 unit 04/27/19 11:26 Epogen - IVPUSH 04/27/19 11:27 ONCE ONE Fludrocortisone Acetate 0.1 mg 04/27/19 10:00 04/27/19 10:06 Florinef - PO 0.1 mg DAILY [facility] Administration Hydrocortisone 1 applic 04/27/19 10:00 04/27/19 10:08 Hytone 0.5% Cream - TP 1 applic DAILY [facility] Administration Sodium Chloride 250 mls @ 3,000 mls/hr 04/27/19 11:26 Normal Saline - IV 04/28/19 11:26 PRN PRN Hypotension during Dialysis Insulin Aspart 1 vial 04/27/19 07:00 04/27/19 06:32 Novolog Vial Sliding Scale - SQ Not Given ACHS [facility] Protocol Levothyroxine Sodium 25 mcg 04/27/19 07:00 04/27/19 06:33 Synthroid - PO 25 mcg DAILY@0700 [facility] Administration Lidocaine/Prilocaine 1 applic 04/27/19 00:15 Emla - TP Q4H PRN PAIN Melatonin 10 mg 04/27/19 22:00 Melatonin PO HS [facility] Midodrine 10 mg 04/27/19 10:00 04/27/19 10:06 Proamatine - PO 10 mg TID-MID [facility] Administration Multi-Ingredient Ointment 1 applic 04/27/19 10:00 04/27/19 10:09 Zinc Oxide TP 1 applic BID [facility] Administration Multivit/Ca Carb/B Cmplx/FA/Prenat 1 tablet 04/27/19 10:00 04/27/19 10:07 Nephro-Evert - PO 1 tablet DAILY [facility] Administration Nystatin 1 applic 04/27/19 10:00 04/27/19 10:09 Mycostatin Ointment - TP 1 applic BID [facility] Administration Nystatin/Triamcinolone Acetonide 1 applic 04/27/19 10:00 04/27/19 10:09 Mycolog Ii Cream - TP 1 applic DAILY [facility] Administration Pantoprazole Sodium 40 mg 04/27/19 10:00 04/27/19 10:06 Protonix - PO 40 mg DAILY [facility] Administration Prednisone 5 mg 04/27/19 10:00 04/27/19 10:07 Deltasone - PO 5 mg DAILY [facility] Administration Senna 2 tab 04/27/19 22:00 Senna - PO HS [facility] Tramadol HCl 50 mg 04/27/19 00:22 Ultram - PO Q8H PRN PAIN LEVEL 7 - 10 Zinc Sulfate 220 mg 04/27/19 10:00 Orazinc - PO DAILY [facility] Impression 1. ESRD 2. shortness of breath 3. resp failure requiring bipap 4. chf 5. dvt 6. anemia 7. a-fib 8. hypothyroid 9. pleural effusion 10. hypotension Plan - HD today - cont bipap as needed - renal diet with fluid restriction - cont midodrine - HD right thigh cath, 3 k bath, 3 15 time, 300 abf
--- NOTE | 2019-04-27 12:00 | PN ---
Progress Note (short form) - Note Progress Note: PULMONARY CONSULTATION DICTATED 04/27/19 IMP ACUTE ON CHRONIC HYPOXEMIC/HYPERCAPNEIC RESPIRATORY FAILURE ACUTE ON CHRONIC CHF VOLUME OVERLOAD PULMONARY HTN AFIB ESRD ON HD H/O DVT DM HTN CHERISE PLAN HD PER RENAL NIPPV NEEDED AND HS O2 TO MAINTAIN O2 SAT 90% OR GREATER INHALED BRONCHODILATORS F/U ABGS CHEST CT AC F/U CHEST X-RAYS DAILY WTS DR TURPIN Problem List - Problems (1) Acute exacerbation of congestive heart failure Code(s): I50.9 - HEART FAILURE, UNSPECIFIED (2) Acute on chronic respiratory failure with hypoxia and hypercapnia Code(s): J96.21 - ACUTE AND CHRONIC RESPIRATORY FAILURE WITH HYPOXIA; J96.22 - ACUTE AND CHRONIC RESPIRATORY FAILURE WITH HYPERCAPNIA (3) Afib Code(s): I48.91 - UNSPECIFIED ATRIAL FIBRILLATION (4) COPD (chronic obstructive pulmonary disease) Code(s): J44.9 - CHRONIC OBSTRUCTIVE PULMONARY DISEASE, UNSPECIFIED Qualifiers: COPD type: unspecified COPD Qualified Code(s): J44.9 - Chronic obstructive pulmonary disease, unspecified (5) ESRD on hemodialysis Code(s): N18.6 - END STAGE RENAL DISEASE; Z99.2 - DEPENDENCE ON RENAL DIALYSIS (6) Hypothyroid Code(s): E03.9 - HYPOTHYROIDISM, UNSPECIFIED (7) Shortness of breath Code(s): R06.02 - SHORTNESS OF BREATH (8) Sleep apnea Code(s): G47.30 - SLEEP APNEA, UNSPECIFIED
--- NOTE | 2019-04-27 15:12 | CON.CARD ---
Consult Consult Specialty:: cardiology Referred by:: Mary Jo Reason for Consultation:: shortness of breath - History of Present Illness Chief Complaint: Shortness of breath History of Present Illness: The patient is a 73-year-old female, residential resident, history of hypertension, end-stage renal disease on hemodialysis, atrial fibrillation on eliquis, COPD on home oxygen, DVT, obstructive sleep apnea, congestive heart failure, now readmitted with recurrent shortness of breath. No chest pains. No palpitations. No other specific complaints. The patient improved with hemodialysis. - History Source History Provided By: Patient, Medical Record Limitations to Obtaining History: No Limitations - Past Medical History Cardio/Vascular: Yes: AFIB, CHF, Deep Vein Thrombosis Pulmonary: Yes: Bronchitis, Pneumonia, Previously Intubated, Pulmonary Embolus, Sleep Apnea Gastrointestinal: Yes: GERD Renal/: Yes: Renal Failure, Hemodialysis Psych: Yes: Depression Endocrine: Yes: Diabetes Mellitus, Hypothyroidism - Alcohol/Substance Use Hx Alcohol Use: No History of Substance Use: reports: None - Smoking History Smoking history: Unknown if ever smoked Have you smoked in the past 12 months: No - Social History ADL: Support Services History of Recent Travel: No Home Medications - Allergies Allergies/Adverse Reactions: Allergies Allergy/AdvReac Type Severity Reaction Status Date / Time No Known Allergies Allergy Unverified 01/19/19 11:43 - Home Medications Home Medications: Ambulatory Orders Ammonium Lactate Lotion [Lac-Hydrin 12] 1 applic TP BID 02/19/19 Bacitracin - [Bacitracin Topical Ointment -] 1 applic TP BID 02/19/19 Buspirone HCl [Buspar -] 10 mg PO BID 02/19/19 Ipratropium/Albuterol Sulfate [Iprat-Albut 0.5-3(2.5) mg/3 ml] 1 neb IH Q4H 12/31 Lidocaine/Prilocaine Cream [Lidocaine-Prilocaine Cream -] 1 applic TP Q4H PRN Nystatin Ointment [Mycostatin Ointment -] 1 applic TP BID 02/19/19 Pantoprazole Sodium [Protonix] 40 mg PO DAILY 02/19/19 Sennosides [Senna] 2 tab PO HS 02/19/19 Silver Sulfadiazine [Silvadene] 1 applic TP DAILY 02/19/19 Vitamin B Comp W-C [Nephro-Evert -] 1 tablet PO DAILY 02/19/19 Zinc Oxide 20% Topical Oint 1 applic TP BID 02/19/19 Zinc Sulfate [Orazinc -] 220 mg PO DAILY 02/19/19 Calcitriol [Calcitriol -] 0.75 mcg PO DAILY 03/11/19 Digoxin 125 mcg PO DAILY 03/11/19 Levothyroxine [Synthroid -] 25 mcg PO DAILY@0700 tablet 03/18/19 Alprazolam 0.25 mg PO BID 04/20/19 Clotrimazole 1 applic TP BID 04/20/19 Collagenase Clostridium Hist. [Santyl -] 1 applic TP DAILY 04/20/19 Fludrocortisone Acetate [Florinef -] 0.1 mg PO DAILY 04/20/19 Hydrocortisone 0.5% Cream [Hytone 0.5% Cream -] 1 applic TP DAILY 04/20/19 Midodrine HCl 10 mg PO TID 04/20/19 Nystatin/Triamcin [Nystatin-Triamcinolone Cream] 1 applic TP DAILY 04/20/19 Acetaminophen [Tylenol .Regular Strength -] 650 mg PO Q6H PRN tablet 04/23/19 Apixaban [Eliquis -] 2.5 mg PO BID tablet 04/23/19 Insulin Sliding Scale [Novolog Vial Sliding Scale -] 1 vial SQ ACHS units 04/23 Melatonin 10 mg PO HS tab 04/23/19 predniSONE [Deltasone -] 5 mg PO DAILY tablet 04/23/19 traMADol HCL [Ultram -] 50 mg PO Q8H PRN tablet MDD 3 04/23/19 Review of Systems - Review of Systems Constitutional: reports: Lethargy, Loss of Appetite Eyes: reports: No Symptoms HENT: reports: No Symptoms Neck: reports: No Symptoms Cardiovascular: reports: Shortness of Breath Respiratory: reports: SOB Gastrointestinal: reports: No Symptoms Genitourinary: reports: No Symptoms Breasts: reports: No Symptoms Reported Musculoskeletal: reports: No Symptoms Integumentary: reports: No Symptoms Neurological: reports: No Symptoms Endocrine: reports: No Symptoms Hematology/Lymphatic: reports: No Symptoms Psychiatric: reports: No Symptoms Vital Signs: Vital Signs Temperature 97.4 F L 04/27/19 14:08 Pulse Rate 86 04/27/19 14:08 Respiratory Rate 24 H 04/27/19 14:08 Blood Pressure 117/66 04/27/19 14:08 O2 Sat by Pulse Oximetry (%) 100 04/26/19 19:32 Constitutional: Yes: No Distress, Calm, Cachectic Eyes: Yes: WNL, Conjunctiva Clear, EOM Intact HENT: Yes: WNL, Atraumatic, Normocephalic Neck: Yes: WNL, Supple, Trachea Midline Respiratory: Yes: Rales, Rhonchi, SOB Gastrointestinal: Yes: WNL, Normal Bowel Sounds, Soft Renal/: Yes: WNL Cardiovascular: Yes: Pulse Irregular Carotid Bruit: No PMI: Non-Displaced Heart Sounds: Yes: S1, S2 Murmur: Yes: Systolic Murmur, Grade 2 Musculoskeletal: Yes: Muscle Pain Extremities: Yes: WNL Edema: No Peripheral Pulses WNL: No Peripheral Pulses: 1+ Left Carotid, 1+ Right Carotid, 1+ Left Femoral, 1+ Right Femoral, 1+ Left Popliteal, 1+ Right Popliteal, 1+ Left Doralis Pedis, 1+ Right Dorsalis Pedis Neurological: Yes: WNL, Alert, Oriented Psychiatric: Yes: WNL, Alert, Oriented - Other Data Labs, Other Data: CBC, BMP 04/26/19 16:30 04/27/19 10:21 Troponin, BNP 04/26/19 16:20 Troponin I 0.06 H B-Natriuretic Peptide > 54883.0 H Troponin, BNP 04/26/19 16:20 Troponin I 0.06 H B-Natriuretic Peptide > 07249.0 H Assessment/Plan The patient is a 73-year-old female, residential resident, history of hypertension, end-stage renal disease on hemodialysis, atrial fibrillation on eliquis, COPD on home oxygen, DVT, obstructive sleep apnea, congestive heart failure, now readmitted with recurrent shortness of breath. No chest pains. No palpitations. No other specific complaints. The patient improved with hemodialysis. there is no evidence of ischemia nor acute coronary syndrome. No angina. Please continue fluid removal with dialysis. Strict salt and fluid restrictions. Continue current regimen. No need for further cardiac workup at this point. Please do not hesitate to call us PRN.
--- NOTE | 2019-04-27 15:23 | CONS ---
PULMONARY CONSULTATION DATE OF CONSULTATION: 04/27/2019 REFERRING PHYSICIAN: Marlene Camargo MD HISTORY OF PRESENT ILLNESS: The patient is a 73-year-old white female known to me in previous hospitalizations, past medical history of atrial fibrillation maintained on Eliquis, congestive heart failure both right and left heart failure, end-stage renal disease on hemodialysis Thursday/Thursday/Thursday, COPD with unknown O2, anemia, diabetes, hypothyroidism, multiple hospitalizations in the past secondary to acute hypoxic respiratory failure as well as hypercapnic respiratory failure, admitted to [facility] with increasing shortness of breath. Patient apparently was at [facility], developed acute onset of shortness of breath. She denied any complaints of chest pain. Did have complaint of wheezing and cough. Denied any fevers or chills. Patient presented to the emergency room with the above. In the ER, she was noted to be in acute respiratory distress. She was placed on BiPAP and transferred to medical telemetry for further management. Patient denies any history of tobacco use. There is no occupational exposure to chemicals or fumes. Patient was recently discharged from [facility] a few days prior to admission secondary to being hospitalized for acute respiratory failure. PAST MEDICAL HISTORY: Again, includes deep vein thrombosis, COPD, O2 dependent, acute right and left-sided heart failure, pulmonary hypertension, atrial fibrillation, hypertension, obstructive sleep apnea, diabetes, history of acute on chronic hypoxemic, hypercapnic respiratory failure, end-stage renal disease on hemodialysis, hypothyroidism, and anemia. SOCIAL HISTORY: No tobacco. No occupational exposures. CURRENT MEDICATIONS: Include Florinef, , Eliquis, Mycolog, Emla, BuSpar, Xanax, DuoNeb, albumin, Lanoxin, senna, normal saline, Epogen, NovoLog, Ultram, melatonin, Mycostatin, Protonix, Orazinc, Synthroid, and Rocaltrol. REVIEW OF SYSTEMS: Positive shortness of breath. Positive cough. No chest pain. No palpitations. No fever. No chills. No hemoptysis. PHYSICAL EXAMINATION: General: The patient is an elderly female, drowsy, on BiPAP. Vital Signs: She is currently afebrile, blood pressure 115/51, respiratory rate is 18, O2 saturation is 100%. HEENT: Exam is normocephalic, atraumatic. Neck: Supple. Heart: Irregular, irregular S1 and S2. Chest: Scattered bilateral wheezes. Abdomen: Soft. Bowel sounds are positive. Extremities: No cyanosis or edema. LABORATORIES: WBC is 5.2, hemoglobin 9.9, hematocrit 32.5 with a platelet count of 168,000. Blood gas: PH of 7.33, PCO2 of 49, a PO2 of 162, a bicarbonate of 25, and a saturation of 99.2. Chemistry: BUN 49, creatinine 3.4. BNP is greater than 35,000. Chest x-ray: Increased pulmonary vascular congestion, bilateral pleural effusions. IMPRESSION: 1. Acute on chronic hypoxemic with acute hypercapnic respiratory failure, secondary to acute on chronic congestive heart failure. 2. Volume overload. 3. Pulmonary hypertension. 4. Atrial fibrillation. 5. Chronic obstructive pulmonary disease; oxygen dependent. 6. End-stage renal disease on hemodialysis. 7. History of deep vein thrombosis. 8. Diabetes. 9. Hypertension. 10. Obstructive sleep apnea. PLAN: Hemodialysis, as per Renal. NIPPV as needed at hour of sleep. Supplemental O2 to maintain O2 saturation 90% or greater. Inhaled bronchodilators. Followup ABGs. Chest CT. Continue anticoagulation. Followup chest x-rays. Daily weights. KARTHIKEYAN TURPIN M.D. SLAVA/[id number]
[2019-04-27] MEDS: traMADol HCL 50 MG TABLET PO PRN (17:45)
[2019-04-27] MEDS ORDERED: SODIUM CHLORIDE 250 ML IV PRN (17:54)
[2019-04-27] MEDS ORDERED: EPOETIN ALFA 10,000 UNIT/1 ML VIAL IVPUSH ONE (18:00)
[2019-04-27 19:28] LABS: BASO % 0.6 % (0-2.0); EOS % 0.2 % (0-4.5); HEMATOCRIT 32.8 % (32.4-45.2); LYMPH % 10.7 % (8-40); MCH 28.1 pg (25.7-33.7); MCHC 30.4 g/dl (32.0-36.0); MEAN CELL VOLUME 92.1 fl (80-96); MEAN PLT VOLUME 8.8 fl (7.5-11.1); MONO % 4.6 % (3.8-10.2); NEUT % 83.9 % (42.8-82.8); PLATELET COUNT 160 K/MM3 (134-434); RBC 3.56 M/mm3 (3.60-5.2); RDW 20.6 % (11.6-15.6); WHITE BLOOD COUNT 6.4 K/mm3 (4.0-10.0)
[2019-04-27] MEDS: ALBUMIN HUMAN 25% 12.5 GM/50 ML VIAL IVPB SCH ×3 (21:29→21:31)
[2019-04-27] MEDS: MELATONIN 5 MG TABLETS PO SCH (22:18)
[2019-04-27] MEDS: SENNOSIDES 8.6MG TABLET (FP) PO SCH (22:19)
[2019-04-28] MEDS ORDERED: traMADol HCL 50 MG TABLET PO ONE (00:12)
[2019-04-28] MEDS: ALBUTEROL SO4 2.5/IPRATROPIUM 0.5 INH SOL 3 ML VIAL.NEB. NEB SCH ×6 (00:55→20:28)
[2019-04-28] MEDS: INSULIN SLIDING SCALE (NOVOLOG) 1 VIAL SQ SCH ×4 (06:56→21:40)
[2019-04-28] MEDS: LEVOTHYROXINE NA 25 MCG TABLET (FP) PO SCH (06:56)
[2019-04-28] MEDS: CALCITRIOL 0.25 MCG CAPSULE (FP) PO SCH (09:08)
[2019-04-28] MEDS: ALPRAZolam 0.25 MG TABLET PO SCH ×2 (09:08→21:32)
[2019-04-28] MEDS: MIDODRINE HCL 5 MG TABLET PO SCH ×3 (09:08→19:45)
[2019-04-28] MEDS: VITAMIN B COMP W-C 1 EA TABLET PO SCH (09:08)
[2019-04-28] MEDS: DIGOXIN 0.125 MG TABLET (FP) PO SCH (09:09)
[2019-04-28] MEDS: APIXABAN 2.5 MG TABLET PO SCH ×2 (09:09→21:32)
[2019-04-28] MEDS: PANTOPRAZOLE 40 MG TABLET (FP) PO SCH (09:09)
[2019-04-28] MEDS: predniSONE 5 MG TABLET (UD) PO SCH (09:09)
[2019-04-28] MEDS: busPIRone HCL 10 MG TABLET (FP) PO SCH ×2 (09:09→21:32)
[2019-04-28] MEDS: COLLAGENASE CLOSTRIDIUM HIST. 30 GRAMS TUBE TP SCH (09:10)
[2019-04-28] MEDS: NYSTATIN 100000 UNIT/GM TOPICAL OINTMENT 15 GM TUBE TP SCH ×2 (09:10→21:32)
[2019-04-28] MEDS: HYDROCORTISONE 0.5% TOPICAL CREAM 30 GM TUBE TP SCH (09:10)
[2019-04-28] MEDS: ZINC OXIDE 20% TOPICAL OINTMENT 30 GM TUBE TP SCH ×2 (09:11→21:32)
[2019-04-28] MEDS: NYSTATIN/TRIAMCINOLONE TOPICAL CREAM 15 GM TUBE TP SCH (10:37)
[2019-04-28] MEDS: ZINC SULFATE 220 MG CAPSULE (FP) PO SCH (11:37)
[2019-04-28] MEDS: FLUDROCORTISONE ACETATE 0.1 MG TABLET (FP) PO SCH (11:37)
--- NOTE | 2019-04-28 12:54 | PN ---
Progress Note, Physician History of Present Illness: Pt seen and examined at bedside. She is awake and alert. She feels that her breathing is improved. - Current Medication List Current Medications: Active Medications Acetaminophen (Tylenol -) 650 mg PO Q6H PRN PRN Reason: PAIN LEVEL 1-5 Last Admin: 04/27/19 23:37 Dose: 650 mg Albuterol/Ipratropium (Duoneb -) 1 amp NEB RQ4H [facility] Last Admin: 04/28/19 07:40 Dose: 1 amp Alprazolam (Xanax -) 0.25 mg PO BID [facility] Last Admin: 04/28/19 09:08 Dose: 0.25 mg Apixaban (Eliquis -) 2.5 mg PO BID [facility] Last Admin: 04/28/19 09:09 Dose: 2.5 mg Buspirone HCl (Buspar -) 10 mg PO BID NAHEED Last Admin: 04/28/19 09:09 Dose: 10 mg Calcitriol (Rocaltrol -) 0.75 mcg PO DAILY [facility] Last Admin: 04/28/19 09:08 Dose: 0.75 mcg Collagenase (Santyl -) 1 applic TP DAILY [facility]; Protocol Last Admin: 04/28/19 09:10 Dose: 1 applic Digoxin (Lanoxin -) 0.125 mg PO DAILY [facility] Last Admin: 04/28/19 09:09 Dose: 0.125 mg Fludrocortisone Acetate (Florinef -) 0.1 mg PO DAILY [facility] Last Admin: 04/28/19 11:37 Dose: 0.1 mg Hydrocortisone (Hytone 0.5% Cream -) 1 applic TP DAILY [facility] Last Admin: 04/28/19 09:10 Dose: 1 applic Sodium Chloride (Normal Saline -) 250 mls @ 3,000 mls/hr IV PRN PRN PRN Reason: Hypotension during Dialysis Stop: 04/28/19 17:53 Insulin Aspart (Novolog Vial Sliding Scale -) 1 vial SQ ACHS [facility]; Protocol Last Admin: 04/28/19 11:41 Dose: Not Given Levothyroxine Sodium (Synthroid -) 25 mcg PO DAILY@0700 [facility] Last Admin: 04/28/19 06:56 Dose: 25 mcg Lidocaine/Prilocaine (Emla -) 1 applic TP Q4H PRN PRN Reason: PAIN Melatonin (Melatonin) 10 mg PO HS [facility] Last Admin: 04/27/19 22:18 Dose: 10 mg Midodrine (Proamatine -) 10 mg PO TID-MID [facility] Last Admin: 04/28/19 09:08 Dose: 10 mg Multi-Ingredient Ointment (Zinc Oxide) 1 applic TP BID [facility] Last Admin: 04/28/19 09:11 Dose: 1 applic Multivit/Ca Carb/B Cmplx/FA/Prenat (Nephro-Evert -) 1 tablet PO DAILY [facility] Last Admin: 04/28/19 09:08 Dose: 1 tablet Nystatin (Mycostatin Ointment -) 1 applic TP BID [facility] Last Admin: 04/28/19 09:10 Dose: 1 applic Nystatin/Triamcinolone Acetonide (Mycolog Ii Cream -) 1 applic TP DAILY [facility] Last Admin: 04/28/19 10:37 Dose: 1 applic Pantoprazole Sodium (Protonix -) 40 mg PO DAILY [facility] Last Admin: 04/28/19 09:09 Dose: 40 mg Prednisone (Deltasone -) 5 mg PO DAILY [facility] Last Admin: 04/28/19 09:09 Dose: 5 mg Senna (Senna -) 2 tab PO HS [facility] Last Admin: 04/27/19 22:19 Dose: 2 tab Tramadol HCl (Ultram -) 50 mg PO Q8H PRN PRN Reason: PAIN LEVEL 7 - 10 Last Admin: 04/27/19 17:45 Dose: 50 mg Zinc Sulfate (Orazinc -) 220 mg PO DAILY [facility] Last Admin: 04/28/19 11:37 Dose: 220 mg - Objective Vital Signs: Vital Signs Temperature 98 F 04/28/19 09:40 Pulse Rate 77 04/28/19 09:40 Respiratory Rate 18 04/28/19 09:40 Blood Pressure 115/68 04/28/19 09:40 O2 Sat by Pulse Oximetry (%) 100 04/28/19 09:00 Constitutional: Yes: Calm Eyes: Yes: Conjunctiva Clear HENT: Yes: Atraumatic Neck: Yes: Supple Cardiovascular: Yes: S1, S2 Respiratory: Yes: On Nasal O2 Gastrointestinal: Yes: Soft Genitourinary: Yes: Incontinence Musculoskeletal: Yes: Muscle Weakness Edema: Yes Edema: RUE: 1+, LLE: Trace, RLE: Trace Integumentary: Yes: Venous Stasis Changes Neurological: Yes: Oriented Labs: CBC, BMP 04/27/19 18:31 04/27/19 10:21 Problem List - Problems (1) ESRD on hemodialysis Code(s): N18.6 - END STAGE RENAL DISEASE; Z99.2 - DEPENDENCE ON RENAL DIALYSIS Assessment/Plan Current Medications Generic Name Dose Route Start Last Admin Trade Name Freq PRN Reason Stop Dose Admin Acetaminophen 650 mg 04/27/19 00:08 04/27/19 23:37 Tylenol - PO 650 mg Q6H PRN Administration PAIN LEVEL 1-5 Albuterol/Ipratropium 1 amp 04/27/19 04:00 04/28/19 07:40 Duoneb - NEB 1 amp RQ4H NAHEED Administration Alprazolam 0.25 mg 04/27/19 10:00 04/28/19 09:08 Xanax - PO 0.25 mg BID NAHEED Administration Apixaban 2.5 mg 04/27/19 00:15 04/28/19 09:09 Eliquis - PO 2.5 mg BID NAHEED Administration Buspirone HCl 10 mg 04/27/19 10:00 04/28/19 09:09 Buspar - PO 10 mg BID NAHEED Administration Calcitriol 0.75 mcg 04/27/19 10:00 04/28/19 09:08 Rocaltrol - PO 0.75 mcg DAILY NAHEED Administration Collagenase 1 applic 04/27/19 10:00 04/28/19 09:10 Santyl - TP 1 applic DAILY NAHEED Administration Protocol Digoxin 0.125 mg 04/27/19 10:00 04/28/19 09:09 Lanoxin - PO 0.125 mg DAILY NAHEED Administration Fludrocortisone Acetate 0.1 mg 04/27/19 10:00 04/28/19 11:37 Florinef - PO 0.1 mg DAILY NAHEED Administration Hydrocortisone 1 applic 04/27/19 10:00 04/28/19 09:10 Hytone 0.5% Cream - TP 1 applic DAILY NAHEED Administration Sodium Chloride 250 mls @ 3,000 mls/hr 04/27/19 17:54 Normal Saline - IV 04/28/19 17:53 PRN PRN Hypotension during Dialysis Insulin Aspart 1 vial 04/27/19 07:00 04/28/19 11:41 Novolog Vial Sliding Scale - SQ Not Given ACHS NAHEED Protocol Levothyroxine Sodium 25 mcg 04/27/19 07:00 04/28/19 06:56 Synthroid - PO 25 mcg DAILY@0700 NAHEED Administration Lidocaine/Prilocaine 1 applic 04/27/19 00:15 Emla - TP Q4H PRN PAIN Melatonin 10 mg 04/27/19 22:00 04/27/19 22:18 Melatonin PO 10 mg HS NAHEED Administration Midodrine 10 mg 04/27/19 10:00 04/28/19 09:08 Proamatine - PO 10 mg TID-MID NAHEED Administration Multi-Ingredient Ointment 1 applic 04/27/19 10:00 04/28/19 09:11 Zinc Oxide TP 1 applic BID NAHEED Administration Multivit/Ca Carb/B Cmplx/FA/Prenat 1 tablet 04/27/19 10:00 04/28/19 09:08 Nephro-Evert - PO 1 tablet DAILY NAHEED Administration Nystatin 1 applic 04/27/19 10:00 04/28/19 09:10 Mycostatin Ointment - TP 1 applic BID NAHEED Administration Nystatin/Triamcinolone Acetonide 1 applic 04/27/19 10:00 04/28/19 10:37 Mycolog Ii Cream - TP 1 applic DAILY NAHEED Administration Pantoprazole Sodium 40 mg 04/27/19 10:00 04/28/19 09:09 Protonix - PO 40 mg DAILY NAHEED Administration Prednisone 5 mg 04/27/19 10:00 04/28/19 09:09 Deltasone - PO 5 mg DAILY NAHEED Administration Senna 2 tab 04/27/19 22:00 04/27/19 22:19 Senna - PO 2 tab HS NAHEED Administration Tramadol HCl 50 mg 04/27/19 00:22 04/27/19 17:45 Ultram - PO 50 mg Q8H PRN Administration PAIN LEVEL 7 - 10 Zinc Sulfate 220 mg 04/27/19 10:00 04/28/19 11:37 Orazinc - PO 220 mg DAILY NAHEED Administration Impression 1. ESRD 2. shortness of breath 3. resp failure requiring bipap 4. chf 5. dvt 6. anemia 7. a-fib 8. hypothyroid 9. pleural effusion 10. hypotension Plan - next HD tomorrow - discussed with family - renal diet with fluid restriction - cont midodrine - HD right thigh cath, 3 k bath, 3 15 time, 300 abf
--- NOTE | 2019-04-28 13:33 | PN ---
Progress Note (short form) - Note Progress Note: Feels that her breathing is a little better. Tolerating NIPPV support. Intake & Output 04/25/19 04/26/19 04/27/19 04/28/19 23:59 23:59 23:59 23:59 Intake Total 100 1130 250 Output Total 3400 Balance 100 -2270 250 Weight 174 lb Last Vital Signs Temp Pulse Resp BP Pulse Ox 98 F 77 18 115/68 100 04/28/19 09:40 04/28/19 09:40 04/28/19 09:40 04/28/19 09:40 04/28/19 09:00 Active Medications Acetaminophen (Tylenol -) 650 mg PO Q6H PRN PRN Reason: PAIN LEVEL 1-5 Last Admin: 04/27/19 23:37 Dose: 650 mg Albumin Human (Albumin Human 25%) 12.5 gm IVPB Q30M [facility] Albuterol/Ipratropium (Duoneb -) 1 amp NEB RQ4H NAHEED Last Admin: 04/28/19 07:40 Dose: 1 amp Alprazolam (Xanax -) 0.25 mg PO BID [facility] Last Admin: 04/28/19 09:08 Dose: 0.25 mg Apixaban (Eliquis -) 2.5 mg PO BID [facility] Last Admin: 04/28/19 09:09 Dose: 2.5 mg Buspirone HCl (Buspar -) 10 mg PO BID [facility] Last Admin: 04/28/19 09:09 Dose: 10 mg Calcitriol (Rocaltrol -) 0.75 mcg PO DAILY [facility] Last Admin: 04/28/19 09:08 Dose: 0.75 mcg Collagenase (Santyl -) 1 applic TP DAILY [facility]; Protocol Last Admin: 04/28/19 09:10 Dose: 1 applic Digoxin (Lanoxin -) 0.125 mg PO DAILY [facility] Last Admin: 04/28/19 09:09 Dose: 0.125 mg Epoetin Memo (Epogen -) 10,000 unit IVPUSH ONCE ONE Stop: 04/29/19 12:59 Fludrocortisone Acetate (Florinef -) 0.1 mg PO DAILY [facility] Last Admin: 04/28/19 11:37 Dose: 0.1 mg Hydrocortisone (Hytone 0.5% Cream -) 1 applic TP DAILY [facility] Last Admin: 04/28/19 09:10 Dose: 1 applic Sodium Chloride (Normal Saline -) 250 mls @ 3,000 mls/hr IV PRN PRN PRN Reason: Hypotension during Dialysis Stop: 04/28/19 17:53 Sodium Chloride (Normal Saline -) 250 mls @ 3,000 mls/hr IV PRN PRN PRN Reason: Hypotension during Dialysis Stop: 04/29/19 12:59 Insulin Aspart (Novolog Vial Sliding Scale -) 1 vial SQ ACHS [facility]; Protocol Last Admin: 04/28/19 11:41 Dose: Not Given Levothyroxine Sodium (Synthroid -) 25 mcg PO DAILY@0700 [facility] Last Admin: 04/28/19 06:56 Dose: 25 mcg Lidocaine/Prilocaine (Emla -) 1 applic TP Q4H PRN PRN Reason: PAIN Melatonin (Melatonin) 10 mg PO HS [facility] Last Admin: 04/27/19 22:18 Dose: 10 mg Midodrine (Proamatine -) 10 mg PO TID-MID [facility] Last Admin: 04/28/19 09:08 Dose: 10 mg Multi-Ingredient Ointment (Zinc Oxide) 1 applic TP BID [facility] Last Admin: 04/28/19 09:11 Dose: 1 applic Multivit/Ca Carb/B Cmplx/FA/Prenat (Nephro-Evert -) 1 tablet PO DAILY [facility] Last Admin: 04/28/19 09:08 Dose: 1 tablet Nystatin (Mycostatin Ointment -) 1 applic TP BID [facility] Last Admin: 04/28/19 09:10 Dose: 1 applic Nystatin/Triamcinolone Acetonide (Mycolog Ii Cream -) 1 applic TP DAILY [facility] Last Admin: 04/28/19 10:37 Dose: 1 applic Pantoprazole Sodium (Protonix -) 40 mg PO DAILY [facility] Last Admin: 04/28/19 09:09 Dose: 40 mg Prednisone (Deltasone -) 5 mg PO DAILY [facility] Last Admin: 04/28/19 09:09 Dose: 5 mg Senna (Senna -) 2 tab PO HS [facility] Last Admin: 04/27/19 22:19 Dose: 2 tab Tramadol HCl (Ultram -) 50 mg PO Q8H PRN PRN Reason: PAIN LEVEL 7 - 10 Last Admin: 04/27/19 17:45 Dose: 50 mg Zinc Sulfate (Orazinc -) 220 mg PO DAILY [facility] Last Admin: 04/28/19 11:37 Dose: 220 mg Constitutional: Yes: NAD, confused Eyes: Yes: Conjunctiva Clear HENT: Yes: Atraumatic Neck: Yes: Supple Cardiovascular: Yes: S1, S2 Respiratory: Yes: On Nasal O2 Gastrointestinal: Yes: Soft Genitourinary: Yes: Incontinence Musculoskeletal: Yes: Muscle Weakness Edema: Yes Edema: RUE: 1+, LLE: Trace, RLE: Trace Integumentary: Yes: Venous Stasis Changes Neurological: Yes: Confused Labs: Laboratory Results - last 24 hr 04/27/19 04/27/19 04/27/19 16:52 18:31 22:20 WBC 6.4 RBC 3.56 L Hgb 10.0 L Hct 32.8 MCV 92.1 MCH 28.1 MCHC 30.4 L RDW 20.6 H Plt Count 160 MPV 8.8 Absolute Neuts (auto) 5.4 Neutrophils % 83.9 H Lymphocytes % 10.7 D Monocytes % 4.6 Eosinophils % 0.2 D Basophils % 0.6 Nucleated RBC % 0 POC Glucometer 124 130 04/28/19 04/28/19 06:49 11:39 WBC RBC Hgb Hct MCV MCH MCHC RDW Plt Count MPV Absolute Neuts (auto) Neutrophils % Lymphocytes % Monocytes % Eosinophils % Basophils % Nucleated RBC % POC Glucometer 72 140 Problem List - Problems (1) Acute exacerbation of congestive heart failure Code(s): I50.9 - HEART FAILURE, UNSPECIFIED (2) Acute on chronic respiratory failure with hypoxia and hypercapnia Code(s): J96.21 - ACUTE AND CHRONIC RESPIRATORY FAILURE WITH HYPOXIA; J96.22 - ACUTE AND CHRONIC RESPIRATORY FAILURE WITH HYPERCAPNIA (3) Afib Code(s): I48.91 - UNSPECIFIED ATRIAL FIBRILLATION (4) COPD (chronic obstructive pulmonary disease) Code(s): J44.9 - CHRONIC OBSTRUCTIVE PULMONARY DISEASE, UNSPECIFIED Qualifiers: COPD type: unspecified COPD Qualified Code(s): J44.9 - Chronic obstructive pulmonary disease, unspecified (5) ESRD on hemodialysis Code(s): N18.6 - END STAGE RENAL DISEASE; Z99.2 - DEPENDENCE ON RENAL DIALYSIS (6) Hypothyroid Code(s): E03.9 - HYPOTHYROIDISM, UNSPECIFIED (7) Shortness of breath Code(s): R06.02 - SHORTNESS OF BREATH (8) Sleep apnea Code(s): G47.30 - SLEEP APNEA, UNSPECIFIED IMP ACUTE ON CHRONIC HYPOXEMIC/HYPERCAPNEIC RESPIRATORY FAILURE ACUTE ON CHRONIC CHF VOLUME OVERLOAD PULMONARY HTN AFIB ESRD ON HD H/O DVT DM HTN CHERISE PLAN HD PER RENAL NIPPV NEEDED AND HS O2 TO MAINTAIN O2 SAT 88% OR GREATER INHALED BRONCHODILATORS AC DAILY WTS DR KAT
--- NOTE | 2019-04-28 14:46 | EKG ---
Test Reason : Blood Pressure : / mmHG Vent. Rate : 073 BPM Atrial Rate : 227 BPM P-R Int : 000 ms QRS Dur : 102 ms QT Int : 334 ms P-R-T Axes : 000 159 -01 degrees QTc Int : 367 ms ATRIAL FIBRILLATION LOW VOLTAGE QRS CANNOT RULE OUT INFERIOR INFARCT (CITED ON OR BEFORE 28-JAN-2019) POSSIBLE ANTEROLATERAL INFARCT (CITED ON OR BEFORE 28-JAN-2019) ABNORMAL ECG WHEN COMPARED WITH ECG OF 20-APR-2019 14:13, QRS DURATION HAS INCREASED ST NO LONGER ELEVATED IN INFERIOR LEADS ST NO LONGER DEPRESSED IN ANTEROLATERAL LEADS Confirmed by ALISTAIR GÓMEZ MD ([id number]) on 04/28/2019 2:45:36 PM Referred By: Confirmed By:ALISTAIR GÓMEZ MD
--- NOTE | 2019-04-28 15:39 | PN ---
Progress Note, Physician Chief Complaint: pateint on NIPPV in bed sleeping HD tmw morning - Current Medication List Current Medications: Active Medications Acetaminophen (Tylenol -) 650 mg PO Q6H PRN PRN Reason: PAIN LEVEL 1-5 Last Admin: 04/27/19 23:37 Dose: 650 mg Albumin Human (Albumin Human 25%) 12.5 gm IVPB Q30M [facility] Albuterol/Ipratropium (Duoneb -) 1 amp NEB RQ4H [facility] Last Admin: 04/28/19 12:50 Dose: 1 amp Alprazolam (Xanax -) 0.25 mg PO BID [facility] Last Admin: 04/28/19 09:08 Dose: 0.25 mg Apixaban (Eliquis -) 2.5 mg PO BID [facility] Last Admin: 04/28/19 09:09 Dose: 2.5 mg Buspirone HCl (Buspar -) 10 mg PO BID [facility] Last Admin: 04/28/19 09:09 Dose: 10 mg Calcitriol (Rocaltrol -) 0.75 mcg PO DAILY [facility] Last Admin: 04/28/19 09:08 Dose: 0.75 mcg Collagenase (Santyl -) 1 applic TP DAILY [facility]; Protocol Last Admin: 04/28/19 09:10 Dose: 1 applic Digoxin (Lanoxin -) 0.125 mg PO DAILY [facility] Last Admin: 04/28/19 09:09 Dose: 0.125 mg Epoetin Memo (Epogen -) 10,000 unit IVPUSH ONCE ONE Stop: 04/29/19 12:59 Fludrocortisone Acetate (Florinef -) 0.1 mg PO DAILY [facility] Last Admin: 04/28/19 11:37 Dose: 0.1 mg Hydrocortisone (Hytone 0.5% Cream -) 1 applic TP DAILY [facility] Last Admin: 04/28/19 09:10 Dose: 1 applic Sodium Chloride (Normal Saline -) 250 mls @ 3,000 mls/hr IV PRN PRN PRN Reason: Hypotension during Dialysis Stop: 04/28/19 17:53 Sodium Chloride (Normal Saline -) 250 mls @ 3,000 mls/hr IV PRN PRN PRN Reason: Hypotension during Dialysis Stop: 04/29/19 12:59 Insulin Aspart (Novolog Vial Sliding Scale -) 1 vial SQ ACHS [facility]; Protocol Last Admin: 04/28/19 11:41 Dose: Not Given Levothyroxine Sodium (Synthroid -) 25 mcg PO DAILY@0700 [facility] Last Admin: 04/28/19 06:56 Dose: 25 mcg Lidocaine/Prilocaine (Emla -) 1 applic TP Q4H PRN PRN Reason: PAIN Melatonin (Melatonin) 10 mg PO HS [facility] Last Admin: 04/27/19 22:18 Dose: 10 mg Midodrine (Proamatine -) 10 mg PO TID-MID [facility] Last Admin: 04/28/19 14:09 Dose: 10 mg Multi-Ingredient Ointment (Zinc Oxide) 1 applic TP BID [facility] Last Admin: 04/28/19 09:11 Dose: 1 applic Multivit/Ca Carb/B Cmplx/FA/Prenat (Nephro-Evert -) 1 tablet PO DAILY [facility] Last Admin: 04/28/19 09:08 Dose: 1 tablet Nystatin (Mycostatin Ointment -) 1 applic TP BID [facility] Last Admin: 04/28/19 09:10 Dose: 1 applic Nystatin/Triamcinolone Acetonide (Mycolog Ii Cream -) 1 applic TP DAILY [facility] Last Admin: 04/28/19 10:37 Dose: 1 applic Pantoprazole Sodium (Protonix -) 40 mg PO DAILY [facility] Last Admin: 04/28/19 09:09 Dose: 40 mg Prednisone (Deltasone -) 5 mg PO DAILY [facility] Last Admin: 04/28/19 09:09 Dose: 5 mg Senna (Senna -) 2 tab PO HS [facility] Last Admin: 04/27/19 22:19 Dose: 2 tab Tramadol HCl (Ultram -) 50 mg PO Q8H PRN PRN Reason: PAIN LEVEL 7 - 10 Last Admin: 04/27/19 17:45 Dose: 50 mg Zinc Sulfate (Orazinc -) 220 mg PO DAILY [facility] Last Admin: 04/28/19 11:37 Dose: 220 mg - Objective Vital Signs: Vital Signs Temperature 98.3 F 04/28/19 14:09 Pulse Rate 85 04/28/19 14:09 Respiratory Rate 22 H 04/28/19 14:09 Blood Pressure 103/71 04/28/19 14:09 O2 Sat by Pulse Oximetry (%) 100 04/28/19 13:05 Constitutional: Yes: No Distress Cardiovascular: Yes: Regular Rate and Rhythm, S1, S2 Respiratory: Yes: CTA Bilaterally, Diminished, On BiPap Gastrointestinal: Yes: Normal Bowel Sounds, Soft Labs: CBC, BMP 04/27/19 18:31 04/27/19 10:21 Problem List - Problems (1) Acute exacerbation of congestive heart failure Assessment/Plan: hd per renal daily weights Code(s): I50.9 - HEART FAILURE, UNSPECIFIED Qualifiers: Heart failure type: unspecified Qualified Code(s): I50.9 - Heart failure, unspecified (2) Acute on chronic respiratory failure with hypoxia and hypercapnia Assessment/Plan: NIPPV and 3 lit oxygen as needed chest CT done official report pending bronchodilators pulm team Code(s): J96.21 - ACUTE AND CHRONIC RESPIRATORY FAILURE WITH HYPOXIA; J96.22 - ACUTE AND CHRONIC RESPIRATORY FAILURE WITH HYPERCAPNIA (3) Afib Assessment/Plan: dogxin Code(s): I48.91 - UNSPECIFIED ATRIAL FIBRILLATION (4) ESRD on hemodialysis Assessment/Plan: HD in [facility] with HD Code(s): N18.6 - END STAGE RENAL DISEASE; Z99.2 - DEPENDENCE ON RENAL DIALYSIS (5) Hypothyroid Assessment/Plan: syntheroid check tsh Code(s): E03.9 - HYPOTHYROIDISM, UNSPECIFIED
[2019-04-28] MEDS: SENNOSIDES 8.6MG TABLET (FP) PO SCH (21:32)
[2019-04-28] MEDS: MELATONIN 5 MG TABLETS PO SCH (21:32)
[2019-04-29] MEDS: ALBUTEROL SO4 2.5/IPRATROPIUM 0.5 INH SOL 3 ML VIAL.NEB. NEB SCH ×6 (00:30→20:35)
[2019-04-29] MEDS: traMADol HCL 50 MG TABLET PO PRN (05:27)
[2019-04-29] MEDS: INSULIN SLIDING SCALE (NOVOLOG) 1 VIAL SQ SCH ×4 (06:03→22:32)
[2019-04-29] MEDS: LEVOTHYROXINE NA 25 MCG TABLET (FP) PO SCH (06:04)
[2019-04-29] MEDS: busPIRone HCL 10 MG TABLET (FP) PO SCH ×2 (09:35→22:31)
[2019-04-29] MEDS: MIDODRINE HCL 5 MG TABLET PO SCH ×3 (09:35→17:47)
[2019-04-29] MEDS: ALPRAZolam 0.25 MG TABLET PO SCH ×2 (09:36→22:32)
[2019-04-29] MEDS: ALBUMIN HUMAN 25% 12.5 GM/50 ML VIAL IVPB SCH ×4 (10:40→13:53)
[2019-04-29] MEDS ORDERED: SODIUM CHLORIDE 250 ML IV PRN (10:48)
[2019-04-29 11:11] LABS: HEMATOCRIT 28.2 % (32.4-45.2); HEMOGLOBIN 8.5 GM/dL (10.7-15.3); MCH 28.1 pg (25.7-33.7); MCHC 30.2 g/dl (32.0-36.0); MEAN CELL VOLUME 93.1 fl (80-96); MEAN PLT VOLUME 8.5 fl (7.5-11.1); PLATELET COUNT 158 K/MM3 (134-434); RBC 3.03 M/mm3 (3.60-5.2); RDW 20.1 % (11.6-15.6); WHITE BLOOD COUNT 4.2 K/mm3 (4.0-10.0)
[2019-04-29 11:43] LABS: BLOOD UREA NITROGEN 41.2 mg/dL (7-18); CALCIUM 9.1 mg/dL (8.5-10.1); CREATININE 3.4 mg/dL (0.55-1.3); POTASSIUM 5.5 mmol/L (3.5-5.1)
[2019-04-29] MEDS ORDERED: EPOETIN ALFA 10,000 UNIT/1 ML VIAL IVPUSH ONE (12:00)
--- NOTE | 2019-04-29 13:17 | DS ---
Physical Examination Vital Signs: Vital Signs Temperature 98.8 F 04/29/19 10:05 Pulse Rate 87 04/29/19 12:40 Respiratory Rate 18 04/29/19 12:40 Blood Pressure 80/38 L 04/29/19 12:40 O2 Sat by Pulse Oximetry (%) 100 04/29/19 09:00 Constitutional: Yes: Calm Cardiovascular: Yes: S1, S2 Respiratory: Yes: Diminished, On BiPap Gastrointestinal: Yes: Normal Bowel Sounds, Soft Edema: Yes Edema: RUE: 1+ Neurological: Yes: Alert Labs: CBC, BMP 04/29/19 10:10 04/29/19 10:10 Discharge Summary Problems reviewed: Yes Reason For Visit: Shortness of Breath Other Procedures: chest CT bilateral pleural effusions Hospital Course: This is a 73 y/o woman with significant medical history of Afib (on Eliquis), CHF, ESRD (M,W,F), COPD (O2, dep), Acute on Chronic Respiratory Failure with Hypoxia (requiring intubation), Sleep Apnea, DM, Anemia, Hypothyroid, Endometerial Ca (Hysterectomy), Depression. Who presents to the ED with SOB admitted to telemetry floor got HD and breathing improving chest CT shows bilateral effusion hypothyroid TSH is elevate dto 4.1 will increase the synthroid dose to 50mcg daily and recheck TSH in 4 weeks RUE swelling will do doppler to r/o dvt Condition: Stable - Instructions Referrals: Johnny Houston [Primary Care Provider] - Disposition: [facility] - Home Medications Comprehensive Discharge Medication List: Ambulatory Orders Ammonium Lactate Lotion [Lac-Hydrin 12] 1 applic TP BID 02/19/19 Bacitracin - [Bacitracin Topical Ointment -] 1 applic TP BID 02/19/19 Buspirone HCl [Buspar -] 10 mg PO BID 02/19/19 Ipratropium/Albuterol Sulfate [Iprat-Albut 0.5-3(2.5) mg/3 ml] 1 neb IH Q4H 12/31 Lidocaine/Prilocaine Cream [Lidocaine-Prilocaine Cream -] 1 applic TP Q4H PRN Nystatin Ointment [Mycostatin Ointment -] 1 applic TP BID 02/19/19 Pantoprazole Sodium [Protonix] 40 mg PO DAILY 02/19/19 Sennosides [Senna] 2 tab PO HS 02/19/19 Silver Sulfadiazine [Silvadene] 1 applic TP DAILY 02/19/19 Vitamin B Comp W-C [Nephro-Evert -] 1 tablet PO DAILY 02/19/19 Zinc Oxide 20% Topical Oint 1 applic TP BID 02/19/19 Zinc Sulfate [Orazinc -] 220 mg PO DAILY 02/19/19 Calcitriol [Calcitriol -] 0.75 mcg PO DAILY 03/11/19 Digoxin 125 mcg PO DAILY 03/11/19 Levothyroxine [Synthroid -] 25 mcg PO DAILY@0700 tablet 03/18/19 Alprazolam 0.25 mg PO BID 04/20/19 Clotrimazole 1 applic TP BID 04/20/19 Collagenase Clostridium Hist. [Santyl -] 1 applic TP DAILY 04/20/19 Fludrocortisone Acetate [Florinef -] 0.1 mg PO DAILY 04/20/19 Hydrocortisone 0.5% Cream [Hytone 0.5% Cream -] 1 applic TP DAILY 04/20/19 Midodrine HCl 10 mg PO TID 04/20/19 Nystatin/Triamcin [Nystatin-Triamcinolone Cream] 1 applic TP DAILY 04/20/19 Acetaminophen [Tylenol .Regular Strength -] 650 mg PO Q6H PRN tablet 04/23/19 Apixaban [Eliquis -] 2.5 mg PO BID tablet 04/23/19 Insulin Sliding Scale [Novolog Vial Sliding Scale -] 1 vial SQ ACHS units 04/23 Melatonin 10 mg PO HS tab 04/23/19 predniSONE [Deltasone -] 5 mg PO DAILY tablet 04/23/19 traMADol HCL [Ultram -] 50 mg PO Q8H PRN tablet MDD 3 04/23/19
--- NOTE | 2019-04-29 13:19 | PN ---
Progress Note, Physician Chief Complaint: seen and exained during HD on bipap machine - Current Medication List Current Medications: Active Medications Acetaminophen (Tylenol -) 650 mg PO Q6H PRN PRN Reason: PAIN LEVEL 1-5 Last Admin: 04/27/19 23:37 Dose: 650 mg Albumin Human (Albumin Human 25%) 12.5 gm IVPB Q30M [facility] Stop: 04/29/19 14:31 Last Admin: 04/29/19 12:28 Dose: 12.5 gm Albuterol/Ipratropium (Duoneb -) 1 amp NEB RQ4H [facility] Last Admin: 04/29/19 13:03 Dose: Not Given Alprazolam (Xanax -) 0.25 mg PO BID [facility] Last Admin: 04/29/19 09:36 Dose: 0.25 mg Apixaban (Eliquis -) 2.5 mg PO BID [facility] Last Admin: 04/28/19 21:32 Dose: 2.5 mg Buspirone HCl (Buspar -) 10 mg PO BID [facility] Last Admin: 04/29/19 09:35 Dose: 10 mg Calcitriol (Rocaltrol -) 0.75 mcg PO DAILY [facility] Last Admin: 04/28/19 09:08 Dose: 0.75 mcg Collagenase (Santyl -) 1 applic TP DAILY [facility]; Protocol Last Admin: 04/28/19 09:10 Dose: 1 applic Digoxin (Lanoxin -) 0.125 mg PO DAILY [facility] Last Admin: 04/28/19 09:09 Dose: 0.125 mg Fludrocortisone Acetate (Florinef -) 0.1 mg PO DAILY [facility] Last Admin: 04/28/19 11:37 Dose: 0.1 mg Hydrocortisone (Hytone 0.5% Cream -) 1 applic TP DAILY [facility] Last Admin: 04/28/19 09:10 Dose: 1 applic Insulin Aspart (Novolog Vial Sliding Scale -) 1 vial SQ ACHS [facility]; Protocol Last Admin: 04/29/19 06:03 Dose: Not Given Levothyroxine Sodium (Synthroid -) 50 mcg PO DAILY@0700 [facility] Lidocaine/Prilocaine (Emla -) 1 applic TP Q4H PRN PRN Reason: PAIN Melatonin (Melatonin) 10 mg PO HS [facility] Last Admin: 04/28/19 21:32 Dose: 10 mg Midodrine (Proamatine -) 10 mg PO TID-MID [facility] Last Admin: 04/29/19 09:35 Dose: 10 mg Multi-Ingredient Ointment (Zinc Oxide) 1 applic TP BID [facility] Last Admin: 04/28/19 21:32 Dose: 1 applic Multivit/Ca Carb/B Cmplx/FA/Prenat (Nephro-Evert -) 1 tablet PO DAILY [facility] Last Admin: 04/28/19 09:08 Dose: 1 tablet Nystatin (Mycostatin Ointment -) 1 applic TP BID [facility] Last Admin: 04/28/19 21:32 Dose: 1 applic Nystatin/Triamcinolone Acetonide (Mycolog Ii Cream -) 1 applic TP DAILY [facility] Last Admin: 04/28/19 10:37 Dose: 1 applic Pantoprazole Sodium (Protonix -) 40 mg PO DAILY [facility] Last Admin: 04/28/19 09:09 Dose: 40 mg Prednisone (Deltasone -) 5 mg PO DAILY [facility] Last Admin: 04/28/19 09:09 Dose: 5 mg Senna (Senna -) 2 tab PO HS [facility] Last Admin: 04/28/19 21:32 Dose: Not Given Tramadol HCl (Ultram -) 50 mg PO Q8H PRN PRN Reason: PAIN LEVEL 7 - 10 Last Admin: 04/29/19 05:27 Dose: 50 mg Zinc Sulfate (Orazinc -) 220 mg PO DAILY [facility] Last Admin: 04/28/19 11:37 Dose: 220 mg - Objective Vital Signs: Vital Signs Temperature 98.8 F 04/29/19 10:05 Pulse Rate 87 04/29/19 12:40 Respiratory Rate 18 04/29/19 12:40 Blood Pressure 80/38 L 04/29/19 12:40 O2 Sat by Pulse Oximetry (%) 100 04/29/19 09:00 Constitutional: Yes: Calm Cardiovascular: Yes: Regular Rate and Rhythm, S1, S2 Respiratory: Yes: Diminished, On BiPap Gastrointestinal: Yes: Normal Bowel Sounds, Soft Edema: RUE: 1+ Neurological: Yes: Alert Labs: CBC, BMP 04/29/19 10:10 04/29/19 10:10 Problem List - Problems (1) Acute exacerbation of congestive heart failure Assessment/Plan: hd per renal today chest CT show bilateral pleural effusion daily weights Code(s): I50.9 - HEART FAILURE, UNSPECIFIED Qualifiers: Heart failure type: unspecified Qualified Code(s): I50.9 - Heart failure, unspecified (2) Acute on chronic respiratory failure with hypoxia and hypercapnia Assessment/Plan: NIPPV and 3 lit oxygen as needed chest CT done bilateral effusion pulm team Code(s): J96.21 - ACUTE AND CHRONIC RESPIRATORY FAILURE WITH HYPOXIA; J96.22 - ACUTE AND CHRONIC RESPIRATORY FAILURE WITH HYPERCAPNIA (3) Afib Assessment/Plan: dogxin Code(s): I48.91 - UNSPECIFIED ATRIAL FIBRILLATION (4) ESRD on hemodialysis Assessment/Plan: HD in AM epogen with HD Code(s): N18.6 - END STAGE RENAL DISEASE; Z99.2 - DEPENDENCE ON RENAL DIALYSIS (5) Hypothyroid Assessment/Plan: syntheroid dose increased to 50mcg tsh elevated to 4.17 Code(s): E03.9 - HYPOTHYROIDISM, UNSPECIFIED
--- NOTE | 2019-04-29 13:57 | PN ---
Progress Note, Physician History of Present Illness: PULMONARY AWAKE ON BIPAP COMFORTABLE -RESP DISTRESS.,PT CURRENTLY ON HD - Current Medication List Current Medications: Active Medications Acetaminophen (Tylenol -) 650 mg PO Q6H PRN PRN Reason: PAIN LEVEL 1-5 Last Admin: 04/27/19 23:37 Dose: 650 mg Albumin Human (Albumin Human 25%) 12.5 gm IVPB Q30M [facility] Stop: 04/29/19 14:31 Last Admin: 04/29/19 13:53 Dose: Not Given Albuterol/Ipratropium (Duoneb -) 1 amp NEB RQ4H [facility] Last Admin: 04/29/19 13:03 Dose: Not Given Alprazolam (Xanax -) 0.25 mg PO BID [facility] Last Admin: 04/29/19 09:36 Dose: 0.25 mg Apixaban (Eliquis -) 2.5 mg PO BID [facility] Last Admin: 04/28/19 21:32 Dose: 2.5 mg Buspirone HCl (Buspar -) 10 mg PO BID [facility] Last Admin: 04/29/19 09:35 Dose: 10 mg Calcitriol (Rocaltrol -) 0.75 mcg PO DAILY [facility] Last Admin: 04/28/19 09:08 Dose: 0.75 mcg Collagenase (Santyl -) 1 applic TP DAILY [facility]; Protocol Last Admin: 04/28/19 09:10 Dose: 1 applic Digoxin (Lanoxin -) 0.125 mg PO DAILY [facility] Last Admin: 04/28/19 09:09 Dose: 0.125 mg Fludrocortisone Acetate (Florinef -) 0.1 mg PO DAILY [facility] Last Admin: 04/28/19 11:37 Dose: 0.1 mg Hydrocortisone (Hytone 0.5% Cream -) 1 applic TP DAILY [facility] Last Admin: 04/28/19 09:10 Dose: 1 applic Insulin Aspart (Novolog Vial Sliding Scale -) 1 vial SQ ACHS [facility]; Protocol Last Admin: 04/29/19 06:03 Dose: Not Given Levothyroxine Sodium (Synthroid -) 50 mcg PO DAILY@0700 [facility] Lidocaine/Prilocaine (Emla -) 1 applic TP Q4H PRN PRN Reason: PAIN Melatonin (Melatonin) 10 mg PO HS [facility] Last Admin: 04/28/19 21:32 Dose: 10 mg Midodrine (Proamatine -) 10 mg PO TID-MID [facility] Last Admin: 04/29/19 09:35 Dose: 10 mg Multi-Ingredient Ointment (Zinc Oxide) 1 applic TP BID [facility] Last Admin: 04/28/19 21:32 Dose: 1 applic Multivit/Ca Carb/B Cmplx/FA/Prenat (Nephro-Evert -) 1 tablet PO DAILY [facility] Last Admin: 04/28/19 09:08 Dose: 1 tablet Nystatin (Mycostatin Ointment -) 1 applic TP BID [facility] Last Admin: 04/28/19 21:32 Dose: 1 applic Nystatin/Triamcinolone Acetonide (Mycolog Ii Cream -) 1 applic TP DAILY [facility] Last Admin: 04/28/19 10:37 Dose: 1 applic Pantoprazole Sodium (Protonix -) 40 mg PO DAILY [facility] Last Admin: 04/28/19 09:09 Dose: 40 mg Prednisone (Deltasone -) 5 mg PO DAILY [facility] Last Admin: 04/28/19 09:09 Dose: 5 mg Senna (Senna -) 2 tab PO HS [facility] Last Admin: 04/28/19 21:32 Dose: Not Given Tramadol HCl (Ultram -) 50 mg PO Q8H PRN PRN Reason: PAIN LEVEL 7 - 10 Last Admin: 04/29/19 05:27 Dose: 50 mg Zinc Sulfate (Orazinc -) 220 mg PO DAILY [facility] Last Admin: 04/28/19 11:37 Dose: 220 mg - Objective Vital Signs: Vital Signs Temperature 98.8 F 04/29/19 10:05 Pulse Rate 68 04/29/19 13:30 Respiratory Rate 18 04/29/19 13:30 Blood Pressure 94/58 L 04/29/19 13:30 O2 Sat by Pulse Oximetry (%) 100 04/29/19 09:00 Constitutional: Yes: Well Nourished, Calm Eyes: Yes: WNL HENT: Yes: WNL Neck: Yes: WNL Cardiovascular: Yes: Regular Rate and Rhythm, S1, S2 Respiratory: Yes: Diminished, On BiPap Gastrointestinal: Yes: Normal Bowel Sounds, Soft Extremities: Yes: WNL Edema: No Labs: CBC, BMP 04/29/19 10:10 04/29/19 10:10 Problem List - Problems (1) Acute exacerbation of congestive heart failure Code(s): I50.9 - HEART FAILURE, UNSPECIFIED (2) Acute on chronic respiratory failure with hypoxia and hypercapnia Code(s): J96.21 - ACUTE AND CHRONIC RESPIRATORY FAILURE WITH HYPOXIA; J96.22 - ACUTE AND CHRONIC RESPIRATORY FAILURE WITH HYPERCAPNIA (3) Afib Code(s): I48.91 - UNSPECIFIED ATRIAL FIBRILLATION (4) COPD (chronic obstructive pulmonary disease) Code(s): J44.9 - CHRONIC OBSTRUCTIVE PULMONARY DISEASE, UNSPECIFIED Qualifiers: COPD type: unspecified COPD Qualified Code(s): J44.9 - Chronic obstructive pulmonary disease, unspecified (5) ESRD on hemodialysis Code(s): N18.6 - END STAGE RENAL DISEASE; Z99.2 - DEPENDENCE ON RENAL DIALYSIS (6) Hypothyroid Code(s): E03.9 - HYPOTHYROIDISM, UNSPECIFIED (7) Shortness of breath Code(s): R06.02 - SHORTNESS OF BREATH (8) Sleep apnea Code(s): G47.30 - SLEEP APNEA, UNSPECIFIED Assessment/Plan IMP ACUTE ON CHRONIC HYPOXEMIC/HYPERCAPNEIC RESPIRATORY FAILURE IMPROVING ACUTE ON CHRONIC CHF IMPROVING VOLUME OVERLOAD PULMONARY HTN AFIB ESRD ON HD H/O DVT DM HTN CHERISE PLAN HD PER RENAL NIPPV NEEDED AND HS O2 TO MAINTAIN O2 SAT 90% OR GREATER INHALED BRONCHODILATORS AC F/U CHEST X-RAYS DAILY WTS DR TURPIN Problem List - Problems (1) Acute exacerbation of congestive heart failure Code(s): I50.9 - HEART FAILURE, UNSPECIFIED (2) Acute on chronic respiratory failure with hypoxia and hypercapnia Code(s): J96.21 - ACUTE AND CHRONIC RESPIRATORY FAILURE WITH HYPOXIA; J96.22 - ACUTE AND CHRONIC RESPIRATORY FAILURE WITH HYPERCAPNIA (3) Afib Code(s): I48.91 - UNSPECIFIED ATRIAL FIBRILLATION (4) COPD (chronic obstructive pulmonary disease) Code(s): J44.9 - CHRONIC OBSTRUCTIVE PULMONARY DISEASE, UNSPECIFIED Qualifiers: COPD type: unspecified COPD Qualified Code(s): J44.9 - Chronic obstructive pulmonary disease, unspecified (5) ESRD on hemodialysis Code(s): N18.6 - END STAGE RENAL DISEASE; Z99.2 - DEPENDENCE ON RENAL DIALYSIS (6) Hypothyroid Code(s): E03.9 - HYPOTHYROIDISM, UNSPECIFIED (7) Shortness of breath Code(s): R06.02 - SHORTNESS OF BREATH (8) Sleep apnea Code(s): G47.30 - SLEEP APNEA, UNSPECIFIED
[2019-04-29] MEDS: VITAMIN B COMP W-C 1 EA TABLET PO SCH (14:23)
[2019-04-29] MEDS: CALCITRIOL 0.25 MCG CAPSULE (FP) PO SCH (14:23)
[2019-04-29] MEDS: PANTOPRAZOLE 40 MG TABLET (FP) PO SCH (14:24)
[2019-04-29] MEDS: predniSONE 5 MG TABLET (UD) PO SCH (14:24)
[2019-04-29] MEDS: DIGOXIN 0.125 MG TABLET (FP) PO SCH (14:24)
[2019-04-29] MEDS: APIXABAN 2.5 MG TABLET PO SCH ×2 (14:25→22:32)
[2019-04-29] MEDS: FLUDROCORTISONE ACETATE 0.1 MG TABLET (FP) PO SCH (14:26)
[2019-04-29] MEDS: ZINC SULFATE 220 MG CAPSULE (FP) PO SCH (14:27)
[2019-04-29] MEDS: HYDROCORTISONE 0.5% TOPICAL CREAM 30 GM TUBE TP SCH (14:33)
[2019-04-29] MEDS: NYSTATIN 100000 UNIT/GM TOPICAL OINTMENT 15 GM TUBE TP SCH ×2 (14:34→22:34)
[2019-04-29] MEDS: COLLAGENASE CLOSTRIDIUM HIST. 30 GRAMS TUBE TP SCH (14:34)
[2019-04-29] MEDS: NYSTATIN/TRIAMCINOLONE TOPICAL CREAM 15 GM TUBE TP SCH (14:34)
[2019-04-29] MEDS: ZINC OXIDE 20% TOPICAL OINTMENT 30 GM TUBE TP SCH ×2 (14:35→22:34)
--- NOTE | 2019-04-29 15:24 | PN ---
Progress Note, Physician History of Present Illness: Pt seen and examined at bedside. She tolerated HD. She denies shortness of breath. - Current Medication List Current Medications: Active Medications Acetaminophen (Tylenol -) 650 mg PO Q6H PRN PRN Reason: PAIN LEVEL 1-5 Last Admin: 04/27/19 23:37 Dose: 650 mg Albuterol/Ipratropium (Duoneb -) 1 amp NEB RQ4H [facility] Last Admin: 04/29/19 13:03 Dose: Not Given Alprazolam (Xanax -) 0.25 mg PO BID [facility] Last Admin: 04/29/19 09:36 Dose: 0.25 mg Apixaban (Eliquis -) 2.5 mg PO BID [facility] Last Admin: 04/29/19 14:25 Dose: 2.5 mg Buspirone HCl (Buspar -) 10 mg PO BID [facility] Last Admin: 04/29/19 09:35 Dose: 10 mg Calcitriol (Rocaltrol -) 0.75 mcg PO DAILY [facility] Last Admin: 04/29/19 14:23 Dose: 0.75 mcg Collagenase (Santyl -) 1 applic TP DAILY [facility]; Protocol Last Admin: 04/29/19 14:34 Dose: 1 applic Digoxin (Lanoxin -) 0.125 mg PO DAILY [facility] Last Admin: 04/29/19 14:24 Dose: 0.125 mg Fludrocortisone Acetate (Florinef -) 0.1 mg PO DAILY [facility] Last Admin: 04/29/19 14:26 Dose: 0.1 mg Hydrocortisone (Hytone 0.5% Cream -) 1 applic TP DAILY [facility] Last Admin: 04/29/19 14:33 Dose: 1 applic Insulin Aspart (Novolog Vial Sliding Scale -) 1 vial SQ ACHS [facility]; Protocol Last Admin: 04/29/19 14:22 Dose: Not Given Levothyroxine Sodium (Synthroid -) 50 mcg PO DAILY@0700 [facility] Lidocaine/Prilocaine (Emla -) 1 applic TP Q4H PRN PRN Reason: PAIN Melatonin (Melatonin) 10 mg PO HS [facility] Last Admin: 04/28/19 21:32 Dose: 10 mg Midodrine (Proamatine -) 10 mg PO TID-MID [facility] Last Admin: 04/29/19 14:45 Dose: 10 mg Multi-Ingredient Ointment (Zinc Oxide) 1 applic TP BID [facility] Last Admin: 04/29/19 14:35 Dose: 1 applic Multivit/Ca Carb/B Cmplx/FA/Prenat (Nephro-Evert -) 1 tablet PO DAILY [facility] Last Admin: 04/29/19 14:23 Dose: 1 tablet Nystatin (Mycostatin Ointment -) 1 applic TP BID [facility] Last Admin: 04/29/19 14:34 Dose: 1 applic Nystatin/Triamcinolone Acetonide (Mycolog Ii Cream -) 1 applic TP DAILY [facility] Last Admin: 04/29/19 14:34 Dose: 1 applic Pantoprazole Sodium (Protonix -) 40 mg PO DAILY [facility] Last Admin: 04/29/19 14:24 Dose: 40 mg Prednisone (Deltasone -) 5 mg PO DAILY [facility] Last Admin: 04/29/19 14:24 Dose: 5 mg Senna (Senna -) 2 tab PO HS [facility] Last Admin: 04/28/19 21:32 Dose: Not Given Tramadol HCl (Ultram -) 50 mg PO Q8H PRN PRN Reason: PAIN LEVEL 7 - 10 Last Admin: 04/29/19 05:27 Dose: 50 mg Zinc Sulfate (Orazinc -) 220 mg PO DAILY [facility] Last Admin: 04/29/19 14:27 Dose: 220 mg - Objective Vital Signs: Vital Signs Temperature 97.1 F L 04/29/19 14:49 Pulse Rate 80 04/29/19 14:49 Respiratory Rate 20 04/29/19 14:49 Blood Pressure 114/45 L 04/29/19 14:49 O2 Sat by Pulse Oximetry (%) 100 04/29/19 09:00 Constitutional: Yes: Calm Eyes: Yes: Conjunctiva Clear HENT: Yes: Atraumatic Neck: Yes: Supple Cardiovascular: Yes: S1, S2 Respiratory: Yes: On Nasal O2 Gastrointestinal: Yes: Soft Genitourinary: Yes: Incontinence Musculoskeletal: Yes: Muscle Weakness Edema: RUE: 1+ Neurological: Yes: Oriented Psychiatric: Yes: Oriented Labs: CBC, BMP 04/29/19 10:10 04/29/19 10:10 Problem List - Problems (1) ESRD on hemodialysis Code(s): N18.6 - END STAGE RENAL DISEASE; Z99.2 - DEPENDENCE ON RENAL DIALYSIS Assessment/Plan Current Medications Generic Name Dose Route Start Last Admin Trade Name Freq PRN Reason Stop Dose Admin Acetaminophen 650 mg 04/27/19 00:08 04/27/19 23:37 Tylenol - PO 650 mg Q6H PRN Administration PAIN LEVEL 1-5 Albuterol/Ipratropium 1 amp 04/27/19 04:00 04/29/19 13:03 Duoneb - NEB Not Given RQ4H [facility] Alprazolam 0.25 mg 04/27/19 10:00 04/29/19 09:36 Xanax - PO 0.25 mg BID [facility] Administration Apixaban 2.5 mg 04/27/19 00:15 04/29/19 14:25 Eliquis - PO 2.5 mg BID [facility] Administration Buspirone HCl 10 mg 04/27/19 10:00 04/29/19 09:35 Buspar - PO 10 mg BID [facility] Administration Calcitriol 0.75 mcg 04/27/19 10:00 04/29/19 14:23 Rocaltrol - PO 0.75 mcg DAILY [facility] Administration Collagenase 1 applic 04/27/19 10:00 04/29/19 14:34 Santyl - TP 1 applic DAILY [facility] Administration Protocol Digoxin 0.125 mg 04/27/19 10:00 04/29/19 14:24 Lanoxin - PO 0.125 mg DAILY [facility] Administration Fludrocortisone Acetate 0.1 mg 04/27/19 10:00 04/29/19 14:26 Florinef - PO 0.1 mg DAILY [facility] Administration Hydrocortisone 1 applic 04/27/19 10:00 04/29/19 14:33 Hytone 0.5% Cream - TP 1 applic DAILY [facility] Administration Insulin Aspart 1 vial 04/27/19 07:00 04/29/19 14:22 Novolog Vial Sliding Scale - SQ Not Given ACHS [facility] Protocol Levothyroxine Sodium 50 mcg 04/30/19 07:00 Synthroid - PO DAILY@0700 [facility] Lidocaine/Prilocaine 1 applic 04/27/19 00:15 Emla - TP Q4H PRN PAIN Melatonin 10 mg 04/27/19 22:00 04/28/19 21:32 Melatonin PO 10 mg HS [facility] Administration Midodrine 10 mg 04/27/19 10:00 04/29/19 14:45 Proamatine - PO 10 mg TID-MID [facility] Administration Multi-Ingredient Ointment 1 applic 04/27/19 10:00 04/29/19 14:35 Zinc Oxide TP 1 applic BID [facility] Administration Multivit/Ca Carb/B Cmplx/FA/Prenat 1 tablet 04/27/19 10:00 04/29/19 14:23 Nephro-Evert - PO 1 tablet DAILY [facility] Administration Nystatin 1 applic 04/27/19 10:00 04/29/19 14:34 Mycostatin Ointment - TP 1 applic BID [facility] Administration Nystatin/Triamcinolone Acetonide 1 applic 04/27/19 10:00 04/29/19 14:34 Mycolog Ii Cream - TP 1 applic DAILY [facility] Administration Pantoprazole Sodium 40 mg 04/27/19 10:00 04/29/19 14:24 Protonix - PO 40 mg DAILY [facility] Administration Prednisone 5 mg 04/27/19 10:00 04/29/19 14:24 Deltasone - PO 5 mg DAILY [facility] Administration Senna 2 tab 04/27/19 22:00 04/28/19 21:32 Senna - PO Not Given HS [facility] Tramadol HCl 50 mg 04/27/19 00:22 04/29/19 05:27 Ultram - PO 50 mg Q8H PRN Administration PAIN LEVEL 7 - 10 Zinc Sulfate 220 mg 04/27/19 10:00 04/29/19 14:27 Orazinc - PO 220 mg DAILY [facility] Administration Impression 1. ESRD 2. shortness of breath 3. resp failure requiring bipap 4. chf 5. dvt 6. anemia 7. a-fib 8. hypothyroid 9. pleural effusion 10. hypotension Plan - HD today - pt has HD set up as outpt - renal diet with fluid restriction - cont midodrine - HD right thigh cath, 3 k bath, 3 15 time, 300 abf
[2019-04-29] MEDS ORDERED: PT OWN MED DRAWER 7, Y5N ONE ×2 (21:47→22:42)
[2019-04-29] MEDS: SENNOSIDES 8.6MG TABLET (FP) PO SCH (22:31)
[2019-04-29] MEDS: MELATONIN 5 MG TABLETS PO SCH (22:31)
[2019-04-30] MEDS: ALBUTEROL SO4 2.5/IPRATROPIUM 0.5 INH SOL 3 ML VIAL.NEB. NEB SCH ×3 (00:30→08:10)
[2019-04-30] MEDS: INSULIN SLIDING SCALE (NOVOLOG) 1 VIAL SQ SCH ×2 (06:19→11:47)
--- NOTE | 2019-04-30 06:57 | PN ---
Progress Note, Physician Chief Complaint: CHF History of Present Illness: SOB on NIPPV CT chest showed moderate to large pleural effusions On HD - Current Medication List Current Medications: Active Medications Acetaminophen (Tylenol -) 650 mg PO Q6H PRN PRN Reason: PAIN LEVEL 1-5 Last Admin: 04/27/19 23:37 Dose: 650 mg Albuterol/Ipratropium (Duoneb -) 1 amp NEB RQ4H [facility] Last Admin: 04/30/19 04:30 Dose: 1 amp Alprazolam (Xanax -) 0.25 mg PO BID [facility] Last Admin: 04/29/19 22:32 Dose: 0.25 mg Apixaban (Eliquis -) 2.5 mg PO BID [facility] Last Admin: 04/29/19 22:32 Dose: 2.5 mg Buspirone HCl (Buspar -) 10 mg PO BID [facility] Last Admin: 04/29/19 22:31 Dose: 10 mg Calcitriol (Rocaltrol -) 0.75 mcg PO DAILY [facility] Last Admin: 04/29/19 14:23 Dose: 0.75 mcg Collagenase (Santyl -) 1 applic TP DAILY [facility]; Protocol Last Admin: 04/29/19 14:34 Dose: 1 applic Digoxin (Lanoxin -) 0.125 mg PO DAILY [facility] Last Admin: 04/29/19 14:24 Dose: 0.125 mg Fludrocortisone Acetate (Florinef -) 0.1 mg PO DAILY [facility] Last Admin: 04/29/19 14:26 Dose: 0.1 mg Hydrocortisone (Hytone 0.5% Cream -) 1 applic TP DAILY [facility] Last Admin: 04/29/19 14:33 Dose: 1 applic Insulin Aspart (Novolog Vial Sliding Scale -) 1 vial SQ ACHS [facility]; Protocol Last Admin: 04/30/19 06:19 Dose: Not Given Levothyroxine Sodium (Synthroid -) 50 mcg PO DAILY@0700 [facility] Last Admin: 04/30/19 06:23 Dose: 50 mcg Lidocaine/Prilocaine (Emla -) 1 applic TP Q4H PRN PRN Reason: PAIN Melatonin (Melatonin) 10 mg PO HS [facility] Last Admin: 04/29/19 22:31 Dose: 10 mg Midodrine (Proamatine -) 10 mg PO TID-MID [facility] Last Admin: 04/29/19 17:47 Dose: 10 mg Multi-Ingredient Ointment (Zinc Oxide) 1 applic TP BID [facility] Last Admin: 04/29/19 22:34 Dose: 1 applic Multivit/Ca Carb/B Cmplx/FA/Prenat (Nephro-Eevrt -) 1 tablet PO DAILY [facility] Last Admin: 04/29/19 14:23 Dose: 1 tablet Nystatin (Mycostatin Ointment -) 1 applic TP BID [facility] Last Admin: 04/29/19 22:34 Dose: 1 applic Nystatin/Triamcinolone Acetonide (Mycolog Ii Cream -) 1 applic TP DAILY [facility] Last Admin: 04/29/19 14:34 Dose: 1 applic Pantoprazole Sodium (Protonix -) 40 mg PO DAILY [facility] Last Admin: 04/29/19 14:24 Dose: 40 mg Prednisone (Deltasone -) 5 mg PO DAILY [facility] Last Admin: 04/29/19 14:24 Dose: 5 mg Senna (Senna -) 2 tab PO HS [facility] Last Admin: 04/29/19 22:31 Dose: 2 tab Zinc Sulfate (Orazinc -) 220 mg PO DAILY [facility] Last Admin: 04/29/19 14:27 Dose: 220 mg - Objective Vital Signs: Vital Signs Temperature 97.6 F 04/30/19 06:00 Pulse Rate 128 H 04/30/19 06:00 Respiratory Rate 20 04/30/19 06:00 Blood Pressure 107/65 04/30/19 06:00 O2 Sat by Pulse Oximetry (%) 95 04/29/19 21:00 Constitutional: Yes: Well Nourished, Calm, Mild Distress Cardiovascular: Yes: Regular Rate and Rhythm Respiratory: Yes: On BiPap, Tachypnea Gastrointestinal: Yes: Normal Bowel Sounds, Soft, Abdomen, Obese Genitourinary: Yes: Incontinence Musculoskeletal: Yes: Muscle Weakness Extremities: Yes: WNL Edema: No Peripheral Pulses WNL: Yes Neurological: Yes: Alert, Pre-Existing Deficit Psychiatric: Yes: Alert Labs: CBC, BMP 04/29/19 10:10 04/29/19 10:10 Assessment/Plan (1) Acute exacerbation of congestive heart failure Assessment/Plan: -HD per renal -Chest CT show bilateral pleural effusion -Daily weights -Nephrology on board Code(s): I50.9 - HEART FAILURE, UNSPECIFIED Qualifiers: Heart failure type: unspecified Qualified Code(s): I50.9 - Heart failure, unspecified (2) Acute on chronic respiratory failure with hypoxia and hypercapnia Assessment/Plan: -NIPPV -Nasal O2 to keep SpO2>90% -Pulmonary consult -Bronchodilators Code(s): J96.21 - ACUTE AND CHRONIC RESPIRATORY FAILURE WITH HYPOXIA; J96.22 - ACUTE AND CHRONIC RESPIRATORY FAILURE WITH HYPERCAPNIA (3) Afib Assessment/Plan: -chronic, rate controlled -On Eliquis 2.5 mg po BID? -HD+age<80yo+wt>60Kg -Increase Eliquis to 5 mg po BID, Code(s): I48.91 - UNSPECIFIED ATRIAL FIBRILLATION (4) ESRD on hemodialysis Assessment/Plan: -HD as per nephrology -lacey with HD Code(s): N18.6 - END STAGE RENAL DISEASE; Z99.2 - DEPENDENCE ON RENAL DIALYSIS (5) Hypothyroid Assessment/Plan: -synthroid dose increased to 50mcg -Monitor thryoid profile in 4 weeks Code(s): E03.9 - HYPOTHYROIDISM, UNSPECIFIED
[2019-04-30] MEDS ORDERED: APIXABAN 5 MG TABLET PO SCH (06:58)
[2019-04-30] MEDS ORDERED: LEVOTHYROXINE NA 50 MCG TABLET (FP) PO SCH (07:00)
[2019-04-30] MEDS ORDERED: FUROSEMIDE 40 MG/4 ML INJECTABLE VIAL IVPUSH ONE (10:05)
[2019-04-30] MEDS ORDERED: PT OWN MED DRAWER 7, Y5N ONE (10:11)
[2019-04-30] MEDS: CALCITRIOL 0.25 MCG CAPSULE (FP) PO SCH (10:28)
[2019-04-30] MEDS: ALPRAZolam 0.25 MG TABLET PO SCH (10:28)
[2019-04-30] MEDS: MIDODRINE HCL 5 MG TABLET PO SCH (10:29)
[2019-04-30] MEDS: FLUDROCORTISONE ACETATE 0.1 MG TABLET (FP) PO SCH (10:29)
[2019-04-30] MEDS: ZINC SULFATE 220 MG CAPSULE (FP) PO SCH (10:29)
[2019-04-30] MEDS: DIGOXIN 0.125 MG TABLET (FP) PO SCH (10:29)
[2019-04-30] MEDS: busPIRone HCL 10 MG TABLET (FP) PO SCH (10:29)
[2019-04-30] MEDS: predniSONE 5 MG TABLET (UD) PO SCH (10:30)
[2019-04-30] MEDS: HYDROCORTISONE 0.5% TOPICAL CREAM 30 GM TUBE TP SCH (10:30)
[2019-04-30] MEDS: PANTOPRAZOLE 40 MG TABLET (FP) PO SCH (10:30)
[2019-04-30] MEDS: NYSTATIN 100000 UNIT/GM TOPICAL OINTMENT 15 GM TUBE TP SCH (10:31)
[2019-04-30] MEDS: COLLAGENASE CLOSTRIDIUM HIST. 30 GRAMS TUBE TP SCH (10:31)
[2019-04-30] MEDS: VITAMIN B COMP W-C 1 EA TABLET PO SCH (10:31)
[2019-04-30] MEDS: NYSTATIN/TRIAMCINOLONE TOPICAL CREAM 15 GM TUBE TP SCH (10:31)
[2019-04-30] MEDS: ZINC OXIDE 20% TOPICAL OINTMENT 30 GM TUBE TP SCH (10:33)
--- NOTE | 2019-04-30 11:43 | PN ---
Progress Note, Physician History of Present Illness: pulmonary awake on nippv,mildly dyspneic - Current Medication List Current Medications: Active Medications Acetaminophen (Tylenol -) 650 mg PO Q6H PRN PRN Reason: PAIN LEVEL 1-5 Last Admin: 04/27/19 23:37 Dose: 650 mg Albuterol/Ipratropium (Duoneb -) 1 amp NEB RQ4H [facility] Last Admin: 04/30/19 08:10 Dose: 1 amp Alprazolam (Xanax -) 0.25 mg PO BID [facility] Last Admin: 04/30/19 10:28 Dose: 0.25 mg Apixaban (Eliquis -) 5 mg PO BID [facility] Last Admin: 04/30/19 10:30 Dose: 5 mg Buspirone HCl (Buspar -) 10 mg PO BID [facility] Last Admin: 04/30/19 10:29 Dose: 10 mg Calcitriol (Rocaltrol -) 0.75 mcg PO DAILY [facility] Last Admin: 04/30/19 10:28 Dose: 0.75 mcg Collagenase (Santyl -) 1 applic TP DAILY [facility]; Protocol Last Admin: 04/30/19 10:31 Dose: 1 applic Digoxin (Lanoxin -) 0.125 mg PO DAILY [facility] Last Admin: 04/30/19 10:29 Dose: 0.125 mg Fludrocortisone Acetate (Florinef -) 0.1 mg PO DAILY [facility] Last Admin: 04/30/19 10:29 Dose: 0.1 mg Hydrocortisone (Hytone 0.5% Cream -) 1 applic TP DAILY [facility] Last Admin: 04/30/19 10:30 Dose: 1 applic Insulin Aspart (Novolog Vial Sliding Scale -) 1 vial SQ ACHS [facility]; Protocol Last Admin: 04/30/19 06:19 Dose: Not Given Levothyroxine Sodium (Synthroid -) 50 mcg PO DAILY@0700 [facility] Last Admin: 04/30/19 06:23 Dose: 50 mcg Lidocaine/Prilocaine (Emla -) 1 applic TP Q4H PRN PRN Reason: PAIN Melatonin (Melatonin) 10 mg PO HS [facility] Last Admin: 04/29/19 22:31 Dose: 10 mg Midodrine (Proamatine -) 10 mg PO TID-MID [facility] Last Admin: 04/30/19 10:29 Dose: 10 mg Multi-Ingredient Ointment (Zinc Oxide) 1 applic TP BID [facility] Last Admin: 04/30/19 10:33 Dose: 1 applic Multivit/Ca Carb/B Cmplx/FA/Prenat (Nephro-Evert -) 1 tablet PO DAILY [facility] Last Admin: 04/30/19 10:31 Dose: 1 tablet Nystatin (Mycostatin Ointment -) 1 applic TP BID [facility] Last Admin: 04/30/19 10:31 Dose: 1 applic Nystatin/Triamcinolone Acetonide (Mycolog Ii Cream -) 1 applic TP DAILY [facility] Last Admin: 04/30/19 10:31 Dose: 1 applic Pantoprazole Sodium (Protonix -) 40 mg PO DAILY [facility] Last Admin: 04/30/19 10:30 Dose: 40 mg Prednisone (Deltasone -) 5 mg PO DAILY [facility] Last Admin: 04/30/19 10:30 Dose: 5 mg Senna (Senna -) 2 tab PO HS [facility] Last Admin: 04/29/19 22:31 Dose: 2 tab Zinc Sulfate (Orazinc -) 220 mg PO DAILY [facility] Last Admin: 04/30/19 10:29 Dose: 220 mg - Objective Vital Signs: Vital Signs Temperature 97.6 F 04/30/19 06:00 Pulse Rate 104 H 04/30/19 10:29 Respiratory Rate 20 04/30/19 06:00 Blood Pressure 107/65 04/30/19 06:00 O2 Sat by Pulse Oximetry (%) 97 04/30/19 08:12 Constitutional: Yes: Well Nourished, Calm, Other (mildly dyspneic) Eyes: Yes: WNL HENT: Yes: WNL Neck: Yes: WNL Cardiovascular: Yes: Pulse Irregular, S1, S2 Respiratory: Yes: Rales Gastrointestinal: Yes: Normal Bowel Sounds, Soft Extremities: Yes: WNL Edema: Yes (rue) Labs: CBC, BMP 04/29/19 10:10 04/29/19 10:10 - ....Imaging Cat Scan: Report Reviewed, Image Reviewed Problem List - Problems (1) Acute exacerbation of congestive heart failure Code(s): I50.9 - HEART FAILURE, UNSPECIFIED (2) Acute on chronic respiratory failure with hypoxia and hypercapnia Code(s): J96.21 - ACUTE AND CHRONIC RESPIRATORY FAILURE WITH HYPOXIA; J96.22 - ACUTE AND CHRONIC RESPIRATORY FAILURE WITH HYPERCAPNIA (3) Afib Code(s): I48.91 - UNSPECIFIED ATRIAL FIBRILLATION (4) COPD (chronic obstructive pulmonary disease) Code(s): J44.9 - CHRONIC OBSTRUCTIVE PULMONARY DISEASE, UNSPECIFIED Qualifiers: COPD type: unspecified COPD Qualified Code(s): J44.9 - Chronic obstructive pulmonary disease, unspecified (5) ESRD on hemodialysis Code(s): N18.6 - END STAGE RENAL DISEASE; Z99.2 - DEPENDENCE ON RENAL DIALYSIS (6) Hypothyroid Code(s): E03.9 - HYPOTHYROIDISM, UNSPECIFIED (7) Shortness of breath Code(s): R06.02 - SHORTNESS OF BREATH (8) Sleep apnea Code(s): G47.30 - SLEEP APNEA, UNSPECIFIED Assessment/Plan IMP ACUTE ON CHRONIC HYPOXEMIC/HYPERCAPNEIC RESPIRATORY FAILURE IMPROVING ACUTE ON CHRONIC CHF IMPROVING VOLUME OVERLOAD PULMONARY HTN AFIB ESRD ON HD H/O DVT DM HTN CHERISE PLAN HD PER RENAL NIPPV NEEDED AND HS O2 TO MAINTAIN O2 SAT 90% OR GREATER INHALED BRONCHODILATORS AC F/U CHEST X-RAYS DAILY WTS DR TURPIN Problem List - Problems (1) Acute exacerbation of congestive heart failure Code(s): I50.9 - HEART FAILURE, UNSPECIFIED (2) Acute on chronic respiratory failure with hypoxia and hypercapnia Code(s): J96.21 - ACUTE AND CHRONIC RESPIRATORY FAILURE WITH HYPOXIA; J96.22 - ACUTE AND CHRONIC RESPIRATORY FAILURE WITH HYPERCAPNIA (3) Afib Code(s): I48.91 - UNSPECIFIED ATRIAL FIBRILLATION (4) COPD (chronic obstructive pulmonary disease) Code(s): J44.9 - CHRONIC OBSTRUCTIVE PULMONARY DISEASE, UNSPECIFIED Qualifiers: COPD type: unspecified COPD Qualified Code(s): J44.9 - Chronic obstructive pulmonary disease, unspecified (5) ESRD on hemodialysis Code(s): N18.6 - END STAGE RENAL DISEASE; Z99.2 - DEPENDENCE ON RENAL DIALYSIS (6) Hypothyroid Code(s): E03.9 - HYPOTHYROIDISM, UNSPECIFIED (7) Shortness of breath Code(s): R06.02 - SHORTNESS OF BREATH (8) Sleep apnea Code(s): G47.30 - SLEEP APNEA, UNSPECIFIED
--- NOTE | 2019-04-30 12:17 | RAPID ---
<Sofiya Ruelas - Last Filed: 04/30/19 12:24> Physical Examination Vital Signs: Vital Signs Temperature 97.1 F L 04/30/19 10:00 Pulse Rate 104 H 04/30/19 10:29 Respiratory Rate 20 04/30/19 10:00 Blood Pressure 118/79 04/30/19 10:00 O2 Sat by Pulse Oximetry (%) 97 04/30/19 09:00 Findings/Remarks: Rapid Response called at 12:11 PM Patient found unresponsive at bedside. Patient unresponsive to verbal and noxious stimuli. Pupils fixed and dilated. Pulses non-palpable. Heart sounds absent on auscultation. Patient pronounced at 12:15 PM. Labs: CBC, BMP 04/29/19 10:10 04/29/19 10:10 <Ana Spring - Last Filed: 04/30/19 16:26> Physical Examination Vital Signs: Vital Signs Temperature 98.7 F 04/30/19 14:00 Pulse Rate 94 H 04/30/19 14:00 Respiratory Rate 18 04/30/19 14:00 Blood Pressure 127/68 04/30/19 14:00 O2 Sat by Pulse Oximetry (%) 97 04/30/19 09:00 Findings/Remarks: patient was DNR/DNI. No resuscitation was staretd. call was placed to primary Caroline Franco. Family to be notified by primary team Labs: CBC, BMP 04/29/19 10:10 04/29/19 10:10
[2019-04-30 14:59] VITALS: BP 127/68; PULSE 94; TEMP 98.7
== END 2019-04-30 12:15 | disposition expired | DRG 291 ==
LOC: JER 15:08 → JERBED 20:05 → J4S 22:54
PROVIDERS: ADMIT Internal Medicine; ATTEND Family Medicine
PROC: 5A09457 Assistance with Respiratory Ventilation, 24-96 Consecutive Hours, Continuous Positive Airway Pressure (ICD-10-PCS; principal; 2019-04-29)
PROC: 5A1D70Z Performance of Urinary Filtration, Intermittent, Less than 6 Hours Per Day (ICD-10-PCS; 2019-04-29)
DX: I13.2 Hypertensive heart and chronic kidney disease with heart failure and with stage 5 chronic kidney disease, or end stage renal disease (principal); N18.6 End stage renal disease; J96.21 Acute and chronic respiratory failure with hypoxia; J96.22 Acute and chronic respiratory failure with hypercapnia; R53.2 Functional quadriplegia; I24.8 Other forms of acute ischemic heart disease; J90 Pleural effusion, not elsewhere classified; E11.9 Type 2 diabetes mellitus without complications; I48.91 Unspecified atrial fibrillation; J44.9 Chronic obstructive pulmonary disease, unspecified; E03.9 Hypothyroidism, unspecified; I50.9 Heart failure, unspecified; E87.70 Fluid overload, unspecified; I27.20 Pulmonary hypertension, unspecified; G47.33 Obstructive sleep apnea (adult) (pediatric); E66.9 Obesity, unspecified; Z68.31 Body mass index [BMI] 31.0-31.9, adult; D64.9 Anemia, unspecified; I95.9 Hypotension, unspecified; Z99.2 Dependence on renal dialysis; K21.9 Gastro-esophageal reflux disease without esophagitis
CPT/HCPCS: 36415; 36600; 71045-TC-FY; 71250-TC; 80048; 80053; 80162; 82550; 82803; 82962; 83605; 83880; 84443; 84484; 85025; 85027; 93005; 93010; 94640; 94660; 99283-25; J0885; P9047